=== PATIENT | male | born 1955 | race Caucasian/White ===

== ENCOUNTER 2016-08-13 14:08 | Inpatient (IN) | payer BC ==
[~2016-08-13] VITALS: Ht 175.3 cm; Wt 130.5 kg
[~2016-08-13 14:08] MED LIST: ALLO100T PO; ASCO500S2 PO; ASPI-664 PO; BUME2TAB18 PO; CHOL100062 PO; CLB05O30 TOP; DIGO125T PO; DOCU-144 PO; FERR-55 PO; FLUO20TA27 PO; HYDR-3498 PO; HYDR-3671 PO; INSU100C SC; IPRA3AMP INHALATION; LACTINEX PO; LANT3I SC; LOV60I SC; METO-448 PO; OMEG-135; PREG50CA PO; PROT946L PO; PYRI100T59 PO; SIMV20TA97 PO; VITA400C41 PO; ZOLP5TAB PO
[2016-08-13 14:12] VITALS: Ht 175.3 cm; Wt 130.5 kg
[2016-08-13] MEDS ORDERED: PIPER-TAZO 3.375 GM IV (PMX) 100 ML IVPB STA (14:36)
[2016-08-13] MEDS ORDERED: VANCOMYCIN 1 GM (PMX) 250 ML IVPB STA (14:36)
[2016-08-13 15:12] LABS: BASOPHILS % 0.3 % (0.0-2.0); EOSINOPHILS # 0.3 10^3/ul (0.0-0.5); EOSINOPHILS % 2.4 % (0.0-7.0); HEMATOCRIT 35.8 % (42.0-52.0); HEMOGLOBIN 11.5 g/dl (14.0-18.0); LYMPHOCYTES # 0.7 10^3/ul (0.8-2.9); LYMPHOCYTES % 5.5 % (15.0-51.0); MEAN CORPUSCULAR HEMOGLOBIN 24.9 pg (29.0-33.0); MEAN CORPUSCULAR HGB CONC 32.2 g/dl (32.0-37.0); MEAN CORPUSCULAR VOLUME 77.4 fl (82.0-101.0); MEAN PLATELET VOLUME 8.5 fl (7.4-10.4); MONOCYTE # 0.9 10^3/ul (0.3-0.9); MONOCYTES % 7.1 % (0.0-11.0); NEUTROPHIL # 10.2 10^3/ul (1.6-7.5); NEUTROPHILS % 84.7 % (39.0-77.0); PLATELET COUNT 280 10^3/UL (140-440); RED BLOOD COUNT 4.62 10^6/ul (4.70-6.10); RED CELL DISTRIBUTION WIDTH 22.6 % (11.5-14.5); UNCORRECTED WBC 12.1 10^3/ul (4.8-10.8); WHITE BLOOD COUNT 12.1 10^3/ul (4.8-10.8)
[2016-08-13 15:19] LABS: ALBUMIN 4.1 g/dl (3.3-4.9); INR 1.18; PROTIME 15.1 Sec (12.2-14.2); PT RATIO 1.2
[2016-08-13 15:20] LABS: CHLORIDE 89 mmol/L (97-110); PARTIAL THROMBOPLASTIN TIME 41.3 Sec (25.0-35.0); POTASSIUM 4.8 mmol/L (3.5-5.1); SODIUM 133 mmol/L (135-144)
[2016-08-13 15:22] LABS: ALANINE AMINOTRANSFERASE 30 IU/L (13-69); ALKALINE PHOSPHATASE 222 IU/L (42-121); ANION GAP 18 (8-16); ASPARTATE AMINO TRANSFERASE 34 IU/L (15-46); BILIRUBIN,INDIRECT 0.2 mg/dl (0-1.1); BILIRUBIN,TOTAL 0.2 mg/dl (0.2-1.3); BLOOD UREA NITROGEN 71 mg/dl (7-20); CARBON DIOXIDE 31 mmol/L (21-31); CREATININE 1.66 mg/dl (0.61-1.24); TOTAL PROTEIN 9.2 g/dl (6.1-8.1)
[2016-08-13 15:23] LABS: CONDITION 1; GLUCOSE 148 mg/dl (70-220); LH ANALYZER COMMENTS 1
[2016-08-13] MEDS ORDERED: ATOR10TA65 PO (15:34)
[2016-08-13] MEDS ORDERED: GLUC1KIT IJ (15:35)
[2016-08-13] MEDS ORDERED: FAMO-18 PO (15:35)
[2016-08-13] MEDS ORDERED: HEP30MU30 IJ (15:37)
[2016-08-13] MEDS ORDERED: LANT3I SC (15:38)
[2016-08-13] MEDS ORDERED: POTA-57 PO (15:38)
[2016-08-13] MEDS ORDERED: LORA0.5T PO (15:39)
[2016-08-13 15:40] LABS: TROPONIN-I < 0.012 ng/ml (0.00-0.12)
[2016-08-13] MEDS ORDERED: MAG30ORA PO (15:41)
--- NOTE | 2016-08-13 15:44 | RADRPT ---
PROCEDURE: XR Chest. CLINICAL INDICATION: Sepsis TECHNIQUE: Chest AP portable. COMPARISON: 07/03/2016 FINDINGS: The mediastinal structures are unremarkable. There is moderate cardiac enlargement. There is pulmo nary venous hypertension. There are RLL patchy consolidation / subsegmental atelectasis. There is a small right pleural effusion. There are senescent changes of the axial skeleton. IMPRESSION: Moderate cardiac enlargement. Pulmonary venous hypertension. RLL patchy consolidation / subsegmental atelectasis. Small right pleural effusion. RPTAT: HGDB .Jaya Vázquez MD, MD Date Time Electronically viewed and signed by .Jaya Vázquez MD, MD on 08/13/2016 15:44 .B/
[2016-08-13] MEDS ORDERED: NOVO3I SC (15:45)
[2016-08-13] MEDS ORDERED: MYL80 PO (15:46)
[2016-08-13] MEDS ORDERED: ACET-2047 PO (15:47)
[2016-08-13] MEDS ORDERED: OMEG-135 PO (15:48)
[2016-08-13] MEDS ORDERED: HYDR-906 PO (15:49)
[2016-08-13] MEDS ORDERED: ZOLP10TA5 PO (15:50)
[2016-08-13 16:28] VITALS: TEMP 98.9
[2016-08-13] MEDS ORDERED: ACETAMINOPHEN 325 MG TAB PO PRN ×2 (16:30→17:30)
[2016-08-13] MEDS ORDERED: ONDANSETRON 4 MG INJ IV PRN ×2 (16:30→17:30)
--- NOTE | 2016-08-13 17:02 | HP ---
Date/Time of Note Date/Time of Note DATE: 08/13/16 TIME: 16:46 Assessment/Plan VTE Prophylaxis VTE Prophylaxis Intervention: heparin Assessment/Plan Assessment/Plan 60 yo male with a past medical history of type II DM, previous osteomyelitis, essential hypertension, atrial fibrillation, CHF with diastolic dysfunction, gout, morbid obesity, peripheral vascular disease, depression, CKD and chronic respiratory failure who came in for worsening left greater toe swelling and redness. 1. Left greater toe - cellulitis - with possible osteomyelitis - will admit the patient to med/surg, consult ID, consult podiatry, IV antibiotics, f/u foot xray , monitor for acute changes, fall precautions, wound care c/s. 2. Leukocytosis - 2/2 #1, monitor acute changes 3. Respiratory failure - check ABG, repeat CXR in am - if worsening, consider pulm consult and pulm toilet 4. Acute on Chronic Kidney Disease - avoid nephrotoxins, renally adjust medications - 2/2 to ATN - if worsening, consult nephro 5. CHF diastolic dysfunction - stable continue with lasix, aspirin 6. Type II DM - recent hgba1c is 5.8, carb controlled/renal/cardiac diet, ISS 7. Essential hypertension - c/w BB, hold ACEI/ARB 2/2 to renal dysfunction, hydralazine prn for SBP > 160 8. Atrial Fibrillation - rate controlled - continue with heparin 9. Dyslipidemia - continue with statin 10. Gout - continue with allopurinol 11. Depression - continue SSRI 12. Morbid obesity - needs dietary consult 13. GI ppx - pepcid 14. DVT ppx - heparin answered all of his questions. as per clinical course. this history and physical took greater then 45 minutes to complete HPI/ROS Admit Date/Time Admit Date/Time 08/13/2016, 4:46 pm Hx of Present Illness 60 yo male with a past medical history of type II DM, previous osteomyelitis, essential hypertension, atrial fibrillation, CHF with diastolic dysfunction, gout, morbid obesity, peripheral vascular disease, depression, CKD and chronic respiratory failure who came in for worsening left greater toe swelling and redness. As per the patient, over the last several weeks, the toe has worsened. 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 Currently, he has been complaining of worsening pain, swelling, fevers, no chills, with no active drainage noted. He is denies any chest pain, but has worsening shortness of breath requiring increased nasal cannula O2, no dizziness, nausea/vomiting/diarrhea/constipation , or other constitutional symptoms. ED course: xray pending, received IV antibiotics and supplemental oxygen ROS 14 point review of systems completed, please refer to HPI for any positive findings PMH/Family/Social Past Medical History Medical History: congestive heart failure, coronary artery disease, diabetes, high cholesterol, hypertension, renal disease, other (depression, gout, obesity , atrial fibrillation, chronic respiratory failure) Past Surgical History toe repair for osteomyelitis, rotator cuff repair Past Surgical Hx: other Family History Significant Family History: no pertinent family hx, heart disease (none), cancer (none), diabetes (none) Social History Alcohol Use: none Smoking Status: Former smoker Drug Use: none Exam/Review of Systems Vital Signs Vitals Vital Signs Date Time Temp Pulse Resp B/P Pulse Ox O2 Delivery O2 Flow Rate FiO2 08/13/16 15:10 Nasal Cannula 5 08/13/16 14:12 99.9 95 28 159/82 89 Exam Exam Gen [place]: acute respiratory distress, AAOx4, morbidly obese male HEENT: NC/AT, PERRLA, EOMI, no pharyngeal erythema, no tonsillar exudates, no lymphadenopathy, no JVD, no carotid bruits NECK: supple, no thyromegaly THORAX: symmetrical, no obvious deformities CV: S1S2, RRR, II/ systolic murmur best heard over the apex Lungs: diminished breath sounds to the bases bilaterally, no wheezing Abd: soft, NT/ND, +BS, no rebound, no guarding, neg HSM, protuberant EXT: 3+ pitting edema, skin sloughing noted, left greater toe with surrounding erythema/edema, scattered petechiae upper extremities, easily bruisability Neuro: CN II-XII grossly intact, decreased proprioception bilateral lower extremities Psych: fair mood and affect Skin: see extremities Labs Result Diagram: 08/13/16 1455 08/13/16 1455 Procedures Procedures CXR IMPRESSION: Moderate cardiac enlargement. Pulmonary venous hypertension. RLL patchy consolidation / subsegmental atelectasis. Small right pleural effusion. KELLEN MEDINA MD Aug 13, 2016 16:57
--- NOTE | 2016-08-13 17:13 | ERA ---
ER Documentation Chief Complaint Date/Time DATE: 08/13/16 TIME: 17:09 Chief Complaint SOB, WOUND ON LEG WITH EXTREME PAIN HPI Patient is a 60-year-old male with coronary disease, hypertension, diabetes who presents with a left leg infection. He said that it is a "diabetic ulcer". He says "I have all the signs of an infection". He said that his oxygen demand has gone up as well. This is worsened over the past 1 week. He has subjective fever but no cough. He has pain around the site of his left leg infection. He is not getting antibiotics currently although he said he took one antibiotic pill that he had left over from another infection. ROS All systems reviewed and are negative except as per history of present illness. Medications Home Meds Active Scripts Metoprolol Tartrate* (Lopressor*) 25 Mg Tab, 12.5 MG PO BID for 28 Days, TAB Prov:SHASTA VALENTE MD 10/14/15 Reported Medications Zolpidem Tartrate* (Zolpidem Tartrate*) 10 Mg Tablet, 10 MG PO QHS Y for INSOMNIA, #30 TAB 08/13/16 Hydrocodone/Acetaminophen ([place] 5-325 Tablet) 1 Each Tablet, 2 EACH PO Q6 Y for PAIN LEVEL 6-10, TAB 08/13/16 [place]-3 Fatty Acids/Fish Oil (Fish Oil 1,000 mg Capsule) 1 Each Capsule, 1 EACH PO TID, CAP 08/13/16 Acetaminophen* (Acetaminophen*) 650 Mg Tablet, 650 MG PO Q6H Y for PAIN LEVEL 1- 5, #30 TAB 08/13/16 Simethicone* (Mylicon*) 80 Mg Tab, 80 MG PO Q6H Y for INTESTINAL SPASMS/CRAMPING , TAB 08/13/16 Insulin Aspart* (Novolog Insulin Pen*) 100 Unit/Ml Soln, 0 SC .SLIDING SCALE AC , EA 0-120 =0 UNITS 121-150 =0 UNITS 151-200 =1 UNIT 201-250 =2 UNITS 251-300 =3 UNITS 301-350 =4 UNITS 351-400 =5 UNITS ABOVE 400 GIVE 6 UNITS CALL PMD 08/13/16 Mag Hydrox/Al Hydrox/Simeth (Mag-Al Plus Xs Suspension) 30 Ml Oral.susp, 10 ML PO Q6 Y for DISTENSION/GAS/BLOATING 08/13/16 Lorazepam* (Lorazepam*) 0.5 Mg Tablet, 0.5 MG PO Q6 Y for ANXIETY, TAB 08/13/16 Potassium Chloride* (Klor-Con*) 20 Meq Tabsr, 40 MEQ PO DAILY, TAB.SA 08/13/16 Insulin Glargine* (Lantus*) 100 Unit/Ml Soln, 12 UNIT SC QHS, #1 VIAL 08/13/16 Heparin Sod (Porcine) (Heparin) 1,000 Unit/Ml Soln, 5000 UNIT IJ Q12 08/13/16 Glucagon,Human Recombinant (Glucagon Emergency Kit) 1 Mg Kit, 1 MG IJ PRN, KIT 08/13/16 Famotidine* (Pepcid*) 20 Mg Tablet, 20 MG PO BID, #60 TAB 08/13/16 Atorvastatin Calcium (Atorvastatin Calcium) 10 Mg Tablet, 10 MG PO QHS, #30 TAB 08/13/16 Protein Supplement (Promod) 946 Ml Liquid, 30 ML PO 06/06/16 Ascorbic Acid* (Ascorbic Acid*) 500 Mg/5 Ml Syrup, 500 MG PO DAILY, #150 ML 06/06/16 Lactobacillus Acidophilus* (Lactinex*) 1 Tab Chew, 1 TAB PO TID, TAB 06/06/16 Ipratropium-Albuterol (Ipratropium-Albuterol) 0.5-3 Mg/3 Ml Ampul.neb, 3 ML INHALATION Q4, #30 VIAL 06/06/16 Ipratropium-Albuterol (Ipratropium-Albuterol) 0.5-3 Mg/3 Ml Ampul.neb, 3 ML INHALATION Q2H, #30 VIAL 06/06/16 Vitamin E Mixed* (Vitamin E*) 400 Unit Capsule, 400 UNIT PO DAILY, CAP 09/23/15 Pyridoxine Hcl* (Vitamin B-6*) 100 Mg Tablet, 100 MG PO DAILY, TAB 09/23/15 Cholecalciferol* (Vitamin D3*) 1,000 Unit Tablet, 1000 UNIT PO DAILY, TAB 09/23/15 Pregabalin* (Lyrica*) 50 Mg Capsule, 50 MG PO TID, CAP 09/23/15 Bumetanide* (Bumetanide*) 2 Mg Tablet, 2 MG PO BID, TAB MORNING AND AFTERNOON 09/23/15 Aspirin* (Aspirin* (EC)) 81 Mg Tablet.dr, 81 MG PO DAILY, TAB 09/23/15 Allopurinol* (Allopurinol*) 100 Mg Tablet, 100 MG PO DAILY, TAB 09/23/15 Fish Oil* (Fish Oil*) 1,000 Mg Cap 10/27/12 Fluoxetine Hcl (Fluoxetine Hcl) 20 Mg Tablet, 20 MG PO DAILY 10/27/12 Ferrous Sulfate* (Ferrous Sulfate*) 325 Mg Tablet, 325 MG PO BID 10/27/12 Discontinued Reported Medications Zolpidem Tartrate* (Ambien*) 5 Mg Tablet, 2.5 MG PO QHS Y for INSOMNIA, #30 TAB 06/06/16 Simvastatin* (Zocor*) 20 Mg Tablet, 20 MG PO QHS, #30 TAB 09/23/15 Hydrocodone Bit-Acetaminophen* ([place]*) 5-325 Mg Tab, 1 TAB PO TID Y for PAIN, TAB 09/23/15 Hydralazine Hcl* (Hydralazine Hcl*) 25 Mg Tab, 12.5 MG PO BID Y for BLOATING, # 120 TAB TAKE 1/2 HOUR BEFORE BUMETANIDE FOR BLOATING PRN 09/23/15 Insulin Lispro (Humalog) 100 U/Ml Cartridge, 18 UNITS SC WITH BREAKFAST, EA 09/23/15 Digoxin* (Digoxin*) 0.125 Mg Tab, 0.125 MG PO DAILY, #30 TAB 09/23/15 Clobetasol Priopionate* (Temovate*) 0.05%-30 GM Oint Tube, 1 APPLIC TOP BID Y for ITCHING, #1 TUB 09/23/15 Discontinued Scripts Enoxaparin Sodium (Enoxaparin Sodium) 60 Mg/0.6 Ml Syringe, 50 MG SC DAILY for 30 Days Prov:KRISTEN GOTTLIEB NP 05/18/16 Insulin Glargine* (Lantus*) 100 Unit/Ml Soln, 30 UNIT SC QAM for 28 Days, BOTTLE Prov:SHASTA VALENTE MD 10/14/15 Docusate Sodium* (Colace*) 100 Mg Cap, 100 MG PO Q12H Y for CONSTIPATION for 14 Days, CAP Prov:SHASTA VALENTE MD 10/14/15 Allergies Allergies: Coded Allergies: No Known Allergy (Unverified , 08/13/16) PMhx/Soc History of Surgery: Yes (seem PT notes) Anesthesia Reaction: Yes Hx 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 Disorder: No Hx Respiratory Disorders: Yes (CHRONIC RESP FAILURE, SLEEP APNEA) Hx Cardiac Disorders: Yes (CHF, AFIB) Hx Psychiatric Problems: Yes (DEPRESSION) Hx Miscellaneous Medical Probl: Yes (see PT notes) Hx Alcohol Use: No Hx Substance Use: No Hx Tobacco Use: No Smoking Status: Former smoker FmHx Family History: diabetes Physical Exam Vitals Vital Signs Date Time Temp Pulse Resp B/P Pulse Ox O2 Delivery O2 Flow Rate FiO2 08/13/16 15:10 Nasal Cannula 5 08/13/16 14:28 Nasal Cannula 5.0 08/13/16 14:12 99.9 95 28 159/82 89 Physical Exam Const: Moderate distress secondary to pain Head: Atraumatic Eyes: Normal Conjunctiva ENT: Normal External Ears, Nose and Mouth. Neck: Full range of motion..~ No meningismus. Resp: Clear to auscultation bilaterally Cardio: Regular rate and rhythm, no murmurs Abd: Soft, non tender, non distended. Normal bowel sounds Skin: Left lower extremity infection with desquamation of the skin and surrounding erythema which is warm to touch. Back: No midline or flank tenderness Ext: No cyanosis, or edema Neur: Awake and alert Psych: Normal Mood and Affect Result Diagram: 08/13/16 1455 08/13/16 1455 Results 24 hrs Laboratory Tests Test 08/13/16 14:55 Activated Partial Thromboplast Time 41.3Sec Alanine Aminotransferase (ALT/SGPT) 30IU/L Albumin 4.1g/dl Albumin/Globulin Ratio 0.80 Alkaline Phosphatase 222IU/L Anion Gap 18 Aspartate Amino Transf (AST/SGOT) 34IU/L Basophils # 0.010^3/ul Basophils % 0.3% Blood Morphology Comment Blood Urea Nitrogen 71mg/dl Calcium Level 9.0mg/dl Carbon Dioxide Level 31mmol/L Chloride Level 89mmol/L Creatinine 1.66mg/dl Direct Bilirubin 0.00mg/dl Eosinophils # 0.310^3/ul Eosinophils % 2.4% Globulin 5.10g/dl Glucose Level 148mg/dl Hematocrit 35.8% Hemoglobin 11.5g/dl INR International Normalized Ratio 1.18 Indirect Bilirubin 0.2mg/dl Lactic Acid Level 1.8mmol/L Lymphocytes # 0.710^3/ul Lymphocytes % 5.5% Mean Corpuscular Hemoglobin 24.9pg Mean Corpuscular Hemoglobin Concent 32.2g/dl Mean Corpuscular Volume 77.4fl Mean Platelet Volume 8.5fl Monocytes # 0.910^3/ul Monocytes % 7.1% Neutrophils # 10.210^3/ul Neutrophils % 84.7% Nucleated Red Blood Cells # 0.010^3/ul Nucleated Red Blood Cells % 0.0/100WBC Platelet Count 90467^3/UL Potassium Level 4.8mmol/L Prothrombin Time 15.1Sec Prothrombin Time Ratio 1.2 Red Blood Count 4.6210^6/ul Red Cell Distribution Width 22.6% Sodium Level 133mmol/L Total Bilirubin 0.2mg/dl Total Protein 9.2g/dl Troponin I < 0.012ng/ml White Blood Count 12.110^3/ul Current Medications Medications (Trade) Dose Ordered Sig/Madonna Route PRN Reason Start Time Stop Time Status Last Admin Dose Admin Vancomycin HCl 250 ml @ 125 mls/hr ONCE STAT IVPB 08/13/16 14:36 08/13/16 16:35 DC 08/13/16 14:36 Piperacillin Sod/ Tazobactam Sod (Zosyn 3.375gm/ 100 ml (Pmx)) 100 ml @ 200 mls/hr ONCE STAT IVPB 08/13/16 14:36 08/13/16 15:05 DC 08/13/16 15:14 Ondansetron HCl (Zofran Inj) 4 mg BRIDGE ORDER PRN IV NAUSEA AND/OR VOMITING 08/13/16 16:30 08/14/16 16:29 Acetaminophen (Tylenol Tab) 650 mg ER BRIDGE PRN PO MILD PAIN/FEVER 08/13/16 16:30 08/14/16 16:29 IV Flush (NS 3 ml) 3 ml PER PROTOCOL IV 08/13/16 17:30 UNV Ondansetron HCl (Zofran Inj) 4 mg Q6H PRN IV NAUSEA AND/OR VOMITING 08/13/16 17:30 UNV Acetaminophen (Tylenol Tab) 650 mg Q6H PRN PO PAIN LEVEL 1-3 OR FEVER 08/13/16 17:30 UNV Acetaminophen/ Hydrocodone Bitart ([place] (5/325)) 1 tab Q6H PRN PO MODERATE PAIN LEVEL 4-6 08/13/16 17:30 UNV Morphine Sulfate (morphine) 2 mg Q4H PRN IV SEVERE PAIN LEVEL 7-10 08/13/16 17:30 UNV Docusate Sodium (Colace) 100 mg Q12H PRN PO CONSTIPATION 08/13/16 17:30 UNV Zolpidem Tartrate (Ambien) 5 mg QHS PRN PO SLEEP 08/13/16 17:30 UNV Famotidine (Pepcid) 20 mg Q12 PO 08/13/16 21:00 UNV Heparin Sodium (Porcine) (Heparin (5000 Units/0.5 ml)) 5,000 unit Q12 SC 08/13/16 21:00 UNV Insulin Aspart (Novolog Insulin Pen) NOVOLOG *MILD* ALGORITHM WITH MEALS BEDTIME SC 08/13/16 18:00 UNV Miscellaneous Information (* Miscellaneous Pharmacy Order) HYPOGLYCEMIA PROTOCOL w... ONCE ONCE XX 08/13/16 17:30 08/13/16 17:31 UNV Miscellaneous Information (* Miscellaneous Pharmacy Order) Discontinue Glyburide, Glipizide,... ONCE ONCE XX 08/13/16 17:30 08/13/16 17:31 UNV Miscellaneous Information (* Miscellaneous Pharmacy Order) Discontinue all previ... ONCE ONCE XX 08/13/16 17:30 08/13/16 17:31 UNV Albuterol/ Ipratropium (Duoneb) 3 ml Q2H RESP THERAPY PRN HHN SHORTNESS OF BREATH 08/13/16 17:30 UNV Allopurinol (Zyloprim) 100 mg DAILY PO 08/14/16 09:00 UNV Procedures/MDM EKG read by me: Rate/Rhythm: Regular rate and rhythm at a normal rate Intervals: Normal Impression: No evidence of ischemia or arrhythmia Chest x-ray shows no pneumonia per radiology. Patient is a 60-year-old male who presents with a left leg diabetic foot infection. The patient was given vancomycin and Zosyn empirically. The patient will need admission as this is a significant diabetic foot infection. He will likely need podiatry consultation as well. The patient was given broad- spectrum antibiotics and will be admitted to a medical surgical bed. The patient was given pain meds as well. I spoke with Dr. Tipton from the panel team for admission who was admitted to medical surgical bed. At this point I doubt sepsis. I did not give fluids as the patient has significant CHF and says that he gets fluid overloaded very easily. He has hypoxia but at this time I doubt pulmonary embolism or pneumonia. Departure Diagnosis: Primary Impression: Diabetic foot infection Additional Impression: Hypoxia Condition: DEON Holliday MD Aug 13, 2016 17:13
[2016-08-13] MEDS ORDERED: VANCOMYCIN IV PER PHARMACY XX SCH (17:30)
[2016-08-13] MEDS ORDERED: NACL 0.9% 3 ML SYG IV SCH (17:30)
[2016-08-13] MEDS ORDERED: DOCUSATE SODIUM 100 MG CAP PO PRN (17:30)
[2016-08-13] MEDS ORDERED: LORAZEPAM 0.5 MG TAB PO PRN (17:30)
[2016-08-13] MEDS ORDERED: ZOLPIDEM 5 MG TAB PO PRN ×2 (17:30)
--- NOTE | 2016-08-13 17:36 | RADRPT ---
PROCEDURE: XR Foot. CLINICAL INDICATION: Generalized foot pain TECHNIQUE: Three views of the left foot are available for review. COMPARISON: None available FINDINGS: There is widening between the second metatarsal base and medial cuneiform, nonspecific due to lack o f weightbearing but may represent the Lisfranc ligament injury or sequelae of neuropathic arthropath y, depending on the clinical scenario. The remaining osseous structures are intact. No fractures s een. There is presumed amputation at the second mid distal phalanx. There is marked soft tissue swe lling seen surrounding the first digit atherosclerotic vascular calcifications are present. Entheso pathic changes seen at the Achilles insertion and plantar calcaneal margin. IMPRESSION: 1. Marked soft tissue swelling over the first ray without cortical destruction or soft tissue gas t o suggest radiographic evidence of osteomyelitis. Please note that MRI is more sensitive. 2. Degenerative changes of the midfoot and widening between the second metatarsal base and medial c uneiform, likely sequelae of neuropathic arthropathy or Lisfranc ligament injury, depending on the c linical scenario. 3. 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 RPTAT: UU .Rahul Jain MD, Date Time Electronically viewed and signed by .Rahul Jain MD, on 08/13/2016 17:36 .d/
[2016-08-13] MEDS: morphine 2 MG INJ IV PRN (17:58)
[2016-08-13 17:59] VITALS: BP 155/77; PULSE 109; RESP 18
[2016-08-13] MEDS: INSULIN ASPART [NOVOLOG] 3 ML PEN SC SCH ×2 (18:00→20:48)
[2016-08-13] MEDS ORDERED: DEXTROSE 50% 50 ML SYRINGE IV PRN (18:00)
[2016-08-13] MEDS ORDERED: GLUCAGON 1 MG INJ IM PRN (18:00)
[2016-08-13] MEDS ORDERED: GLUCOSE GEL 15 GRAM TUBE BUCCAL PRN (18:00)
[2016-08-13] MEDS ORDERED: GLUCOSE GEL 15 GRAM TUBE PO PRN ×2 (18:00)
--- NOTE | 2016-08-13 18:03 | CONS ---
Date/Time of Note Date/Time of Note DATE: 08/13/16 TIME: 18:03 Assessment/Plan Assessment/Plan Additional Assessment/Plan 60 yo Male with 1) LORNA on CKD, Pre-Renal in the setting of diuretic Rx 2) Left toe cellulits R/o OM 3) HTN, Chronic 4) Diastolic Heart Failure, Chronic 5) Pulm HTN 6) Anema, Chroinc 7) RLL Patchy Consolidation R/o PNA Pt started on Borad Spectrum IV abx ID consulted Renal Dose all Rx Will send UA, Urine Na and Cr Decrease dose of Diuretic Rx, Repeat chemistry in am Cont to monitor UO, Renal function and electrolytes. Consultation Date/Type/Reason Admit Date/Time 08/13/2016, 4:46 pm Date of Consultation: Aug 13, 2016 Type of Consultation: Nephrology Reason for Consultation Lorna Referring Provider: KELLEN MEDINA MD Hx of Present Illness 60 yo male with a past medical history of type II DM, previous osteomyelitis, essential hypertension, atrial fibrillation, CHF with diastolic dysfunction, gout, morbid obesity, peripheral vascular disease, depression, CKD and chronic respiratory failure who came in for worsening left greater toe swelling and redness. Nephrology consulted for elevated BUN/Cr Past Medical History Medical History: congestive heart failure, coronary artery disease, diabetes, high cholesterol, hypertension, renal disease, other (depression, gout, obesity , atrial fibrillation, chronic respiratory failure) Past Surgical History Past Surgical Hx: other Family History Significant Family History: no pertinent family hx Social History Alcohol Use: none Smoking Status: Former smoker Drug Use: none Exam/Review of Systems Vital Signs Vitals Vital Signs Date Time Temp Pulse Resp B/P Pulse Ox O2 Delivery O2 Flow Rate FiO2 08/13/16 17:59 97.8 109 18 155/77 95 Nasal Cannula 6.0 Exam Constitutional: alert, oriented, No distress ENMT: mucosa pink and moist (cc) Neck: No jvd Respiratory: crackles/rales, diminished breath sounds (RT), No labored breathing Cardiovascular: edema, regular rate and rhythm Gastrointestinal: soft, No rebound or guarding, No tender Extremities: pitting pedal edema, tenderness 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: SOA ARCHITECT 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, nl mental status, nl speech, No focal weakness, No lethargic Skin: No diaphoresis (c) Results Result Diagram: 08/13/16 1455 08/13/16 1455 Results 24 hrs Laboratory Tests Test 08/13/16 14:55 08/13/16 17:48 Activated Partial Thromboplast Time 41.3 H Alanine Aminotransferase (ALT/SGPT) 30 Albumin 4.1 Albumin/Globulin Ratio 0.80 Alkaline Phosphatase 222 H Anion Gap 18 H Aspartate Amino Transf (AST/SGOT) 34 Basophils # 0.0 Basophils % 0.3 Blood Morphology Comment Blood Urea Nitrogen 71 H Calcium Level 9.0 Carbon Dioxide Level 31 Chloride Level 89 L Creatinine 1.66 H Direct Bilirubin 0.00 Eosinophils # 0.3 Eosinophils % 2.4 Globulin 5.10 H Glucose Level 148 Hematocrit 35.8 L Hemoglobin 11.5 L INR International Normalized Ratio 1.18 Indirect Bilirubin 0.2 Lactic Acid Level 1.8 Lymphocytes # 0.7 L Lymphocytes % 5.5 L Magnesium Level 2.5 Mean Corpuscular Hemoglobin 24.9 L Mean Corpuscular Hemoglobin Concent 32.2 Mean Corpuscular Volume 77.4 L Mean Platelet Volume 8.5 Monocytes # 0.9 Monocytes % 7.1 Neutrophils # 10.2 H Neutrophils % 84.7 H Nucleated Red Blood Cells # 0.0 Nucleated Red Blood Cells % 0.0 Platelet Count 280 Potassium Level 4.8 Prothrombin Time 15.1 H Prothrombin Time Ratio 1.2 Red Blood Count 4.62 L Red Cell Distribution Width 22.6 H Sodium Level 133 L Total Bilirubin 0.2 Total Protein 9.2 H Troponin I < 0.012 White Blood Count 12.1 #H Bedside Glucose 127 Medications Medications Current Medications Ondansetron HCl (Zofran Inj) 4 mg Q6H PRN IV NAUSEA AND/OR VOMITING; Start at 17:30 Acetaminophen (Tylenol Tab) 650 mg Q6H PRN PO PAIN LEVEL 1-3 OR FEVER; Start 08/13/16 at 17:30 Acetaminophen/ Hydrocodone Bitart ([place] (5/325)) 1 tab Q6H PRN PO MODERATE PAIN LEVEL 4-6; Start 08/13/16 at 17:30 Morphine Sulfate (morphine) 2 mg Q4H PRN IV SEVERE PAIN LEVEL 7-10 Last administered on 08/13/16at 17:58; Admin Dose 2 MG; Start 08/13/16 at 17:30 Docusate Sodium (Colace) 100 mg Q12H PRN PO CONSTIPATION; Start 11/28/16 at 17 :30 Famotidine (Pepcid) 20 mg Q12 PO ; Start 08/13/16 at 21:00 Heparin Sodium (Porcine) (Heparin (5000 Units/0.5 ml)) 5,000 unit Q12 SC ; Start 08/13/16 at 21:00 Allopurinol (Zyloprim) 100 mg DAILY PO ; Start 08/14/16 at 09:00 Ascorbic Acid (Vitamin C) 500 mg DAILY PO ; Start 08/13/16 at 18:00 Aspirin (Halfprin) 81 mg DAILY PO ; Start 08/14/16 at 09:00 Atorvastatin Calcium (Lipitor) 10 mg QHS PO ; Start 08/13/16 at 21:00 Cholecalciferol (Vitamin D) 1,000 unit DAILY PO ; Start 08/14/16 at 09:00 Ferrous Sulfate (Ferrous Sulfate (Ec)) 325 mg BID PO ; Start 08/13/16 at 21:00 Fish Oil (Fish Oil) 1,000 mg DAILY PO ; Start 08/14/16 at 09:00 Insulin Glargine (Lantus) 12 unit QHS SC ; Start 08/13/16 at 21:00 Lactobacillus Acidoph/Bulgaricus (Floranex) 1 tab TID PO ; Start 08/13/16 at 21 :00 Lorazepam (Ativan) 0.5 mg Q6 PRN PO ANXIETY; Start 08/13/16 at 17:30 Metoprolol Tartrate (Lopressor) 12.5 mg BID PO ; Start 08/13/16 at 21:00 Potassium Chloride (Klor-Con 20) 40 meq DAILY PO ; Start 08/14/16 at 09:00 Pregabalin (Lyrica) 50 mg TID PO ; Start 08/13/16 at 21:00 Pyridoxine HCl (Vitamin B6) 100 mg DAILY PO ; Start 08/14/16 at 09:00 Simethicone (Mylicon) 80 mg Q6H PRN PO INTESTINAL SPASMS/CRAMPING; Start 08/13 at 17:30 Vitamin E (Vitamin E) 400 units DAILY PO ; Start 08/14/16 at 09:00 Miscellaneous Information 2 mg BID PO ; Start 08/13/16 at 21:00; Status UNV Miscellaneous Information 20 mg DAILY PO ; Start 08/14/16 at 09:00; Status UNV Miscellaneous Information 1 each 1 each TID PO ; Start 08/13/16 at 21:00; Status UNV Piperacillin Sod/ Tazobactam Sod (Zosyn 2.25gm/ 50ml (Pmx)) 50 ml @ 100 mls/hr Q8 IVPB ; Start 08/13/16 at 22:00 Miscellaneous Information 1 ea NOTE XX ; Start 08/13/16 at 18:00 Glucose (Glutose) 15 gm Q15M PRN PO DECREASED GLUCOSE; Start 08/13/16 at 18:00 Glucose (Glutose) 22.5 gm Q15M PRN PO DECREASED GLUCOSE; Start 08/13/16 at 18: 00 Dextrose (D50w Syringe) 25 ml Q15M PRN IV DECREASED GLUCOSE; Start 08/13/16 at 18:00 Dextrose (D50w Syringe) 50 ml Q15M PRN IV DECREASED GLUCOSE; Start 08/13/16 at 18:00 Glucagon (Glucagen) 1 mg Q15M PRN IM DECREASED GLUCOSE; Start 08/13/16 at 18: 00 Glucose (Glutose) 15 gm Q15M PRN BUCCAL DECREASED GLUCOSE; Start 08/13/16 at 18:00 Procedures Procedures PROCEDURE: XR Chest. CLINICAL INDICATION: Sepsis TECHNIQUE: Chest AP portable. COMPARISON: 07/03/2016 FINDINGS: The mediastinal structures are unremarkable. There is moderate cardiac enlargement. There is pulmonary venous hypertension. There are RLL patchy consolidation / subsegmental atelectasis. There is a small right pleural effusion. There are senescent changes of the axial skeleton. IMPRESSION: Moderate cardiac enlargement. Pulmonary venous hypertension. RLL patchy consolidation / subsegmental atelectasis. Small right pleural effusion. RPTAT: HGDB .Jaya Vázquez MD, MD Date Time Electronically viewed and signed by .Jaya Vázquez MD, MD on 08/13/2016 15:44 DYAN FRANKLIN MD Aug 13, 2016 18:03
[2016-08-13] MEDS ORDERED: VANCOMYCIN 1 GM in NS 250 ML IVPB SCH (18:30)
[2016-08-13] MEDS: ASCORBIC ACID 500 MG TAB PO SCH (19:05)
[2016-08-13] MEDS ORDERED: BUMETANIDE 1 MG TAB PO SCH (19:30)
[2016-08-13 19:35] LABS: INR 1.26; PROTIME 15.9 Sec (12.2-14.2); PT RATIO 1.2
[2016-08-13 19:36] LABS: PARTIAL THROMBOPLASTIN TIME 41.9 Sec (25.0-35.0)
[2016-08-13 20:00] VITALS: BP 140/77; PULSE 84; RESP 16
[2016-08-13] MEDS: SODIUM HYPOCHLORITE 0.125% 473 ML BTL IRR SCH (20:00)
[2016-08-13] MEDS: METOPROLOL 25 MG TAB PO SCH (20:42)
[2016-08-13] MEDS: LACTOBACILLUS CHEW TAB PO SCH (20:43)
[2016-08-13] MEDS: FAMOTIDINE 20 MG TAB PO SCH (20:43)
[2016-08-13] MEDS: FISH OIL 1,000 MG CAP PO SCH (20:43)
[2016-08-13] MEDS: ATORVASTATIN 10 MG TAB PO SCH (20:43)
[2016-08-13] MEDS: FERROUS SULFATE (EC) 325 MG TAB PO SCH (20:44)
[2016-08-13] MEDS: INSULIN GLARGINE [LANtus] 3 ML PEN SC SCH (20:47)
--- NOTE | 2016-08-13 20:51 | CONS ---
DATE OF ADMISSION: 08/13/2016 DATE OF CONSULTATION: 08/13/2016 TYPE OF CONSULTATION: Infectious disease. REASON FOR CONSULTATION: Antibiotic management. HISTORY OF PRESENT ILLNESS: Jamin Fabian is an unfortunate 60-year-old white male with numerous pro blems, well known to us from previous admissions, who is admitted now with shortness of breath and w ith left lower extremity severe cellulitis. Total protein 9.2, albumin 4.1. Cultures are, of course, going to be pending. The patient was begu n on vancomycin and Zosyn. A 3 x-ray of the left foot was ordered. Blood cultures have been ordere d. Lactic acid, urine cultures have been ordered. Clostridium difficile has been ordered. This pa tient has been hospitalized on numerous occasions. He has been seen also by myself in the past. patient's past medical problems include: 1. Adult-onset diabetes mellitus. 2. Previous osteomyelitis. 3. Essential hypertension. 4. Atrial fibrillation. 5. Congestive heart failure with diastolic dysfunction. 6. Gout. 7. Morbid obesity. 8. Peripheral vascular disease. 9. Depression. 10. Chronic renal disease. 11. Chronic respiratory failure. The patient came in with worsening of his left great toe with swelling and redness as well as exfoli ation of the skin on his left foot. He was at the [facility] and has been followed up on a regular basis. He has been having worsening pain, fever, chills, and now comes in with worsening shortness of breath requiring increased nasal cannula oxygen as well. He has left great toe cellulitis with p ossible osteomyelitis. On admission, his white count is 12.1, H and H 11.5 and 35.8, platelet count 280,000. BUN and creatinine is 71/1.66, alkaline phosphatase 222. Microbiology is pending. He is on vancomycin and Zosyn. Chest x-ray shows moderate cardiac enlargement, pulmonary venous hyperten eileen of the right lower lobe patchy consolidation and subsegmental atelectasis, small right pleural effusion. PAST MEDICAL HISTORY: Operations as outlined. FAMILY HISTORY: Noncontributory. PAST SURGICAL HISTORY: He had toe repair for osteomyelitis. He also had rotator cuff repair. SOCIAL HISTORY: He is a former smoker. He does not drink or abuse drugs. ALLERGIES: NONE TO PENICILLIN, SULFA, OR FOODS. MEDICATIONS: Per chart. REVIEW OF SYSTEMS: As per HPI. PHYSICAL EXAMINATION: GENERAL: The patient is a morbidly obese male who is in some degree of respiratory distress, but ab le to communicate. VITAL SIGNS: Stable. He is afebrile. T-max of 99.9. SKIN: Without generalized rash. HEENT: Within normal limits. NECK: Supple. LYMPH NODES: None palpable. CHEST: Decreased breath sounds at the bases. HEART: Without murmur or gallop. ABDOMEN: Soft, nontender without organosplenomegaly or masses. EXTREMITIES: He has 3+ pitting edema, both lower extremities. Skin is exfoliating and sloughing on the left. The left great toe has erythema and edema. The right lower extremity is bandaged right now from the knee down to the ankle. RECTAL AND GENITAL: Deferred. NEUROLOGIC: No focal neurological abnormality. IMPRESSION AND PLAN: The patient comes in with cellulitis, possible osteomyelitis of the left toe a nd foot. He was started on vancomycin and Zosyn. Urine cultures have been done. Blood cultures saunders ve been done. I believe blood cultures have been ordered. I will dictate my findings to Dr. Sachin barnes and to the hospitalist. Dictated By: DONAVAN BRITTON MD, JD/GREGORY Conf#: [id number] DID#: [id number] CC: KELLEN MEDINA MD;*End*
[2016-08-13] MEDS: HEPARIN 5,000 UNIT/0.5 ML SYG SC SCH (21:33)
[2016-08-13] MEDS: PREGABALIN 25 MG CAP PO SCH (21:33)
[2016-08-13] MEDS: PIPER-TAZO 2.25 GM (PMX) 50 ML IVPB SCH (21:42)
[2016-08-13 23:10] VITALS: PULSE 84
[2016-08-13] MEDS: ZOLPIDEM 5 MG TAB PO PRN (23:17)
[2016-08-14 06:22] LABS: POTASSIUM 4.7 mmol/L (3.5-5.1)
[2016-08-14 06:24] LABS: CREATININE 1.65 mg/dl (0.61-1.24)
[2016-08-14 06:25] LABS: CALCIUM 8.4 mg/dl (8.4-10.2)
[2016-08-14 06:31] LABS: BASOPHILS % 0.3 % (0.0-2.0); EOSINOPHILS # 0.4 10^3/ul (0.0-0.5); EOSINOPHILS % 3.5 % (0.0-7.0); HEMATOCRIT 29.4 % (42.0-52.0); HEMOGLOBIN 9.7 g/dl (14.0-18.0); LYMPHOCYTES # 0.5 10^3/ul (0.8-2.9); LYMPHOCYTES % 5.1 % (15.0-51.0); MEAN CORPUSCULAR HEMOGLOBIN 25.2 pg (29.0-33.0); MEAN CORPUSCULAR HGB CONC 32.8 g/dl (32.0-37.0); MEAN CORPUSCULAR VOLUME 76.8 fl (82.0-101.0); MEAN PLATELET VOLUME 8.3 fl (7.4-10.4); MONOCYTE # 1.3 10^3/ul (0.3-0.9); NEUTROPHIL # 8.5 10^3/ul (1.6-7.5); NEUTROPHILS % 79.1 % (39.0-77.0); PLATELET COUNT 268 10^3/UL (140-440); RED BLOOD COUNT 3.83 10^6/ul (4.70-6.10); RED CELL DISTRIBUTION WIDTH 21.8 % (11.5-14.5); UNCORRECTED WBC 10.7 10^3/ul (4.8-10.8); WHITE BLOOD COUNT 10.7 10^3/ul (4.8-10.8)
[2016-08-14] MEDS: BUMETANIDE 1 MG TAB PO SCH ×2 (06:33→18:00)
[2016-08-14] MEDS: PIPER-TAZO 2.25 GM (PMX) 50 ML IVPB SCH ×3 (06:33→22:40)
[2016-08-14 07:00] LABS: CONDITION 1; LH ANALYZER COMMENTS 1
[2016-08-14 07:15] VITALS: BP 141/73; PULSE 80; RESP 22
[2016-08-14] MEDS: INSULIN ASPART [NOVOLOG] 3 ML PEN SC SCH ×4 (08:08→20:45)
[2016-08-14] MEDS ORDERED: VITAMIN A & D 5 GM OINT PACKET TOP ONE (08:52)
[2016-08-14] MEDS ORDERED: POTASSIUM CHLORIDE (SR) 20 MEQ TAB PO SCH (09:00)
[2016-08-14] MEDS: SODIUM HYPOCHLORITE 0.125% 473 ML BTL IRR SCH (09:00)
[2016-08-14] MEDS: FLUOXETINE 20 MG CAP PO SCH (09:25)
[2016-08-14] MEDS: CHOLECALCIFEROL 1,000 UNIT TAB PO SCH (09:25)
[2016-08-14] MEDS: FAMOTIDINE 20 MG TAB PO SCH ×2 (09:25→20:35)
[2016-08-14] MEDS: PYRIDOXINE 50 MG TAB PO SCH (09:25)
[2016-08-14] MEDS: PREGABALIN 25 MG CAP PO SCH ×3 (09:25→20:35)
[2016-08-14] MEDS: ASCORBIC ACID 500 MG TAB PO SCH (09:25)
[2016-08-14] MEDS: LACTOBACILLUS CHEW TAB PO SCH ×3 (09:25→20:34)
[2016-08-14] MEDS: ASPIRIN (EC) 81 MG TAB PO SCH (09:25)
[2016-08-14] MEDS: VITAMIN E 400 UNITS CAP PO SCH (09:25)
[2016-08-14] MEDS: FERROUS SULFATE (EC) 325 MG TAB PO SCH ×2 (09:25→20:35)
[2016-08-14] MEDS: FISH OIL 1,000 MG CAP PO SCH ×4 (09:26→20:35)
[2016-08-14] MEDS: ALLOPURINOL 100 MG TAB PO SCH (09:26)
[2016-08-14] MEDS: METOPROLOL 25 MG TAB PO SCH ×2 (09:27→20:45)
[2016-08-14] MEDS: HEPARIN 5,000 UNIT/0.5 ML SYG SC SCH ×2 (09:29→20:43)
--- NOTE | 2016-08-14 09:37 | PN ---
Date/Time of Note Date/Time of Note DATE: 08/14/16 TIME: 09:30 Assessment/Plan VTE Prophylaxis VTE Prophylaxis Intervention: heparin Lines/Catheters IV [facility] Urinary Cath still in place: No Assessment/Plan Assessment/Plan 60 yo male with a past medical history of type II DM, previous osteomyelitis, essential hypertension, atrial fibrillation, CHF with diastolic dysfunction, gout, morbid obesity, peripheral vascular disease, depression, CKD and chronic respiratory failure who came in for worsening left greater toe swelling and redness. 1. Left greater toe - osteomyelitis/cellulitis - PICC line for mcc antibiotics, f/u podiatry recs 2. Leukocytosis - 2/2 #1, monitor acute changes - improved 3. Respiratory failure - continue with supplemental O2 4. Acute on Chronic Kidney Disease - avoid nephrotoxins, renally adjust medications - 2/2 to ATN - appreciate nephro recs 5. CHF diastolic dysfunction - stable continue with lasix, aspirin 6. Type II DM - recent hgba1c is 5.8, carb controlled/renal/cardiac diet, ISS 7. Essential hypertension - c/w BB, hold ACEI/ARB 2/2 to renal dysfunction, hydralazine prn for SBP > 160 8. Atrial Fibrillation - rate controlled - continue with heparin 9. Dyslipidemia - continue with statin 10. Gout - continue with allopurinol 11. Depression - continue SSRI 12. Morbid obesity - needs dietary consult 13. Anemia - acute on chronic - check iron profile, occult blood - transfuse if hgb < 8 g/dL 14. GI ppx - pepcid 15. DVT ppx - heparin dispo - f/u recs, PICC line insertion, monitor acute changes this progress note took greater than 40 minutes to complete Subjective 24 Hr Interval Summary Free Text/Dictation Patient was admitted for left greater toe infection. Complains of pain. Explained the radiographic findings to the patient. 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 20 minutes spent. Exam/Review of Systems Vital Signs Vitals Vital Signs Date Time Temp Pulse Resp B/P Pulse Ox O2 Delivery O2 Flow Rate FiO2 08/14/16 05:30 40 08/13/16 23:10 84 99 08/13/16 23:10 5.0 08/13/16 20:00 Nasal Cannula 08/13/16 20:00 97.8 16 140/77 Intake and Output 08/13/16 08/13/16 08/14/16 15:00 23:00 07:00 Intake Total 50 ml 850 ml Output Total 700 ml Balance 50 ml 150 ml Exam Gen Glen: acute respiratory distress, AAOx4, morbidly obese male HEENT: NC/AT, PERRLA, EOMI, no pharyngeal erythema, no tonsillar exudates, no lymphadenopathy, no JVD, no carotid bruits NECK: supple, no thyromegaly THORAX: symmetrical, no obvious deformities CV: S1S2, RRR, II/ systolic murmur best heard over the apex Lungs: diminished breath sounds to the bases bilaterally, no wheezing Abd: soft, NT/ND, +BS, no rebound, no guarding, neg HSM, protuberant EXT: 3+ pitting edema, skin sloughing noted, left greater toe with surrounding erythema/edema, scattered petechiae upper extremities, easily bruisability, with adolfo wraps bilaterally Neuro: CN II-XII grossly intact, decreased proprioception bilateral lower extremities Psych: fair mood and affect Skin: see extremities Results Result Diagram: 08/14/16 0545 08/14/16 0545 Results 24 hrs Laboratory Tests Test 08/13/16 14:55 08/13/16 17:48 08/13/16 18:40 08/13/16 20:31 Activated Partial Thromboplast Time 41.3 H 41.9 H Alanine Aminotransferase (ALT/SGPT) 30 Albumin 4.1 Albumin/Globulin Ratio 0.80 Alkaline Phosphatase 222 H Anion Gap 18 H Aspartate Amino Transf (AST/SGOT) 34 Basophils # 0.0 Basophils % 0.3 Blood Morphology Comment Blood Urea Nitrogen 71 H Calcium Level 9.0 Carbon Dioxide Level 31 Chloride Level 89 L Creatinine 1.66 H Direct Bilirubin 0.00 Eosinophils # 0.3 Eosinophils % 2.4 Globulin 5.10 H Glucose Level 148 Hematocrit 35.8 L Hemoglobin 11.5 L INR International Normalized Ratio 1.18 1.26 Indirect Bilirubin 0.2 Lactic Acid Level 1.8 1.1 Lymphocytes # 0.7 L Lymphocytes % 5.5 L Magnesium Level 2.5 Mean Corpuscular Hemoglobin 24.9 L Mean Corpuscular Hemoglobin Concent 32.2 Mean Corpuscular Volume 77.4 L Mean Platelet Volume 8.5 Monocytes # 0.9 Monocytes % 7.1 Neutrophils # 10.2 H Neutrophils % 84.7 H Nucleated Red Blood Cells # 0.0 Nucleated Red Blood Cells % 0.0 Platelet Count 280 Potassium Level 4.8 Prothrombin Time 15.1 H 15.9 H Prothrombin Time Ratio 1.2 1.2 Red Blood Count 4.62 L Red Cell Distribution Width 22.6 H Sodium Level 133 L Total Bilirubin 0.2 Total Protein 9.2 H Troponin I < 0.012 White Blood Count 12.1 #H Bedside Glucose 127 259 H Test 08/13/16 20:50 08/14/16 03:26 08/14/16 05:45 08/14/16 07:58 Lactic Acid Level 1.4 Bedside Glucose 103 100 Anion Gap 13 Basophils # 0.0 Basophils % 0.3 Blood Morphology Comment Blood Urea Nitrogen 67 H Calcium Level 8.4 Carbon Dioxide Level 32 H Chloride Level 91 L Creatinine 1.65 H Eosinophils # 0.4 Eosinophils % 3.5 Glucose Level 93 # Hematocrit 29.4 L Hemoglobin 9.7 L Lymphocytes # 0.5 L Lymphocytes % 5.1 L Mean Corpuscular Hemoglobin 25.2 L Mean Corpuscular Hemoglobin Concent 32.8 Mean Corpuscular Volume 76.8 L Mean Platelet Volume 8.3 Monocytes # 1.3 H Monocytes % 12.0 H Neutrophils # 8.5 H Neutrophils % 79.1 H Nucleated Red Blood Cells # 0.0 Nucleated Red Blood Cells % 0.0 Platelet Count 268 Potassium Level 4.7 Red Blood Count 3.83 L Red Cell Distribution Width 21.8 H Sodium Level 131 L White Blood Count 10.7 Medications Medications Current Medications Ondansetron HCl (Zofran Inj) 4 mg Q6H PRN IV NAUSEA AND/OR VOMITING; Start at 17:30 Acetaminophen (Tylenol Tab) 650 mg Q6H PRN PO PAIN LEVEL 1-3 OR FEVER; Start 08/13/16 at 17:30 Acetaminophen/ Hydrocodone Bitart ([place] (5/325)) 1 tab Q6H PRN PO MODERATE PAIN LEVEL 4-6; Start 08/13/16 at 17:30 Morphine Sulfate (morphine) 2 mg Q4H PRN IV SEVERE PAIN LEVEL 7-10 Last administered on 08/13/16at 17:58; Admin Dose 2 MG; Start 08/13/16 at 17:30 Docusate Sodium (Colace) 100 mg Q12H PRN PO CONSTIPATION; Start 08/13/16 at 17 :30 Famotidine (Pepcid) 20 mg Q12 PO Last administered on 08/13/16at 20:43; Admin Dose 20 MG; Start 08/13/16 at 21:00 Heparin Sodium (Porcine) (Heparin (5000 Units/0.5 ml)) 5,000 unit Q12 SC Last administered on 08/13/16at 21:33; Admin Dose 5,000 UNIT; Start 08/13/16 at 21: 00 Allopurinol (Zyloprim) 100 mg DAILY PO ; Start 08/14/16 at 09:00 Ascorbic Acid (Vitamin C) 500 mg DAILY PO Last administered on 08/13/16at 19:05 ; Admin Dose 500 MG; Start 08/13/16 at 18:00 Aspirin (Halfprin) 81 mg DAILY PO ; Start 08/14/16 at 09:00 Atorvastatin Calcium (Lipitor) 10 mg QHS PO Last administered on 08/13/16 20: 43; Admin Dose 10 MG; Start 08/13/16 at 21:00 Cholecalciferol (Vitamin D) 1,000 unit DAILY PO Last administered on 09:25; Admin Dose 1,000 UNIT; Start 08/14/16 at 09:00 Ferrous Sulfate (Ferrous Sulfate (Ec)) 325 mg BID PO Last administered on 08/14at 09:25; Admin Dose 325 MG; Start 08/13/16 at 21:00 Fish Oil (Fish Oil) 1,000 mg DAILY PO ; Start 08/14/16 at 09:00 Insulin Glargine (Lantus) 12 unit QHS SC Last administered on 08/13/16at 20:47 ; Admin Dose 12 UNIT; Start 08/13/16 at 21:00 Lactobacillus Acidoph/Bulgaricus (Floranex) 1 tab TID PO Last administered on 08/13/16at 20:43; Admin Dose 1 TAB; Start 08/13/16 at 21:00 Lorazepam (Ativan) 0.5 mg Q6 PRN PO ANXIETY; Start 08/13/16 at 17:30 Metoprolol Tartrate (Lopressor) 12.5 mg BID PO Last administered on 08/13/16at 20:42; Admin Dose 12.5 MG; Start 08/13/16 at 21:00 Pregabalin (Lyrica) 50 mg TID PO Last administered on 08/13/16at 21:33; Admin Dose 50 MG; Start 08/13/16 at 21:00 Pyridoxine HCl (Vitamin B6) 100 mg DAILY PO ; Start 08/14/16 at 09:00 Simethicone (Mylicon) 80 mg Q6H PRN PO INTESTINAL SPASMS/CRAMPING; Start 08/13 at 17:30 Vitamin E (Vitamin E) 400 units DAILY PO Last administered on 08/14/16at 09:25 ; Admin Dose 400 UNITS; Start 08/14/16 at 09:00 Fluoxetine HCl (Prozac) 20 mg DAILY PO ; Start 08/14/16 at 09:00 Fish Oil 1000 mg 1,000 mg TID PO Last administered on 08/13/16at 20:43; Admin Dose 1,000 MG; Start 08/13/16 at 21:00 Piperacillin Sod/ Tazobactam Sod (Zosyn 2.25gm/ 50ml (Pmx)) 50 ml @ 100 mls/hr Q8 IVPB Last administered on 08/14/16at 06:33; Admin Dose 100 MLS/HR; Start at 22:00 Miscellaneous Information 1 ea NOTE XX ; Start 08/13/16 at 18:00 Glucose (Glutose) 15 gm Q15M PRN PO DECREASED GLUCOSE; Start 08/13/16 at 18:00 Glucose (Glutose) 22.5 gm Q15M PRN PO DECREASED GLUCOSE; Start 08/13/16 at 18: 00 Dextrose (D50w Syringe) 25 ml Q15M PRN IV DECREASED GLUCOSE; Start 08/13/16 at 18:00 Dextrose (D50w Syringe) 50 ml Q15M PRN IV DECREASED GLUCOSE; Start 08/13/16 at 18:00 Glucagon (Glucagen) 1 mg Q15M PRN IM DECREASED GLUCOSE; Start 08/13/16 at 18: 00 Glucose 15 gm 15 gm Q15M PRN BUCCAL DECREASED GLUCOSE; Start 08/13/16 at 18:00 Vancomycin HCl/ Sodium Chloride (Vancocin/NS) 500 ml @ 125 mls/hr Q48H IVPB ; Start 08/15/16 at 16:00 Sodium Hypochlorite (Dakin'S (1/4 Strength)) 1 applic DAILY IRR Last administered on 08/13/16at 20:00; Admin Dose 1 APPLIC; Start 08/13/16 at 20:00 KELLEN MEDINA MD Aug 14, 2016 09:37
[2016-08-14 09:40] LABS: ADD UMIC YES; URINE BILIRUBIN (Dip) NEGATIVE (NEGATIVE); URINE BLOOD (Dip) NEGATIVE (NEGATIVE); URINE COLOR LT. YELLOW (YELLOW); URINE GLUCOSE (Dip) NEGATIVE (NEGATIVE); URINE KETONES (Dip) NEGATIVE (NEGATIVE); URINE LEUKOCYTE ESTERASE (Dip) NEGATIVE (NEGATIVE); URINE NITRITE (Dip) NEGATIVE (NEGATIVE); URINE TOTAL PROTEIN (Dip) 2+ (NEGATIVE); URINE UROBILINOGEN (Dip) 0.2 E.U./dL (0.1-1.0)
[2016-08-14 09:55] LABS: BACTERIA,URINE RARE; URINE RBCS 0-2 /HPF (0)
[2016-08-14] MEDS ORDERED: LIDOCAINE 1% (MDV) 20 ML INJ SC ONE (10:00)
[2016-08-14] MEDS: HYDROCODONE/APAP (5/325) TAB PO PRN ×2 (12:52→13:03)
--- NOTE | 2016-08-14 13:47 | PN ---
DATE: 08/14/2016 SUBJECTIVE: No acute events overnight. The patient is alert, feels good, looks comfortable, denies pain, discomfort and wants to eat and waiting for lunch to arrive. No fevers. WBC today 10.7 with platelets 268, neutrophils 79.1, no bands. BUN 67, creatinine 1.65. MICROBIOLOGY: Results pending. DIAGNOSTICS: X-ray of left foot revealed first ray soft tissue swelling. ANTIMICROBIALS: Vancomycin and Zosyn. Urinalysis on admission was negative. PHYSICAL EXAMINATION: GENERAL: Obese, well-developed, middle-aged white man who is sitting at the edge of the bed. [place] moore is in no distress. HEENT: Head atraumatic, normocephalic. Sclerae anicteric. Buccal mucosa dry. NECK: Supple, trachea midline. CHEST: Rise symmetrical. Breath sounds clear, diminished to bases. HEART: S1, S2. ABDOMEN: Soft, bowel tones present. EXTREMITIES: Bilateral Patrick wraps. ASSESSMENT: 1. Bilateral lower extremities acute on chronic cellulitis with chronic venous stasis and questiona ble left toe osteomyelitis. 2. Systemic inflammatory response syndrome. 3. Questionable pneumonia as per chest x-ray. 4. Morbid obesity. 5. Atrial fibrillation, chronic. 6. Chronic kidney disease. PLAN: The patient remains stable. We are going to order MRI of his left toe and foot. Consider po diatry and vascular evaluation. Dictated By: JAMEY VAZQUEZ MANAGER STARS for DONAVAN BRITTON MD NI/NTS Conf#: [id number] DID#: [id number]
--- NOTE | 2016-08-14 16:38 | RADRPT ---
PROCEDURE: Chest 1 views. CLINICAL INDICATION: Post PICC line placement TECHNIQUE: AP views of the chest were obtained. COMPARISON: August 13, 2016 FINDINGS: The heart is large. Right-sided PICC line has its tip in the expected location of the distal superio r vena cava. Central pulmonary vascular congestion and interstitial prominence is seen in both lung s. Right perihilar and lower lung infiltrates have mildly increased. Small to moderate right pleur al effusion is present. Patchy atelectasis versus infiltrates in the left lower lobe are seen. Oss eous structures are intact. IMPRESSION: Cardiomegaly . Right-sided PICC line with its tip in the expected location of the distal superior vena cava. Continued central pulmonary vascular congestion and interstitial prominence in both lungs. Interval increase in perihilar and lower lung infiltrates throughout the right lung combined with sm all to moderate pleural effusion. Patchy atelectasis versus mild infiltrates in the left lower lobe. RPTAT: AA .Curly Trujillo MD, Date Time Electronically viewed and signed by .Curly Trujillo MD, on 08/14/2016 16:38 .P/
--- NOTE | 2016-08-14 16:39 | RADRPT ---
PROCEDURE: US guidance for PICC line CLINICAL INDICATION: PICC line placement TECHNIQUE: Multiple real-time images were acquired of the patient's arm utilizing a high resolutio n transducer. This was performed by the PICC line nurse for venous access. COMPARISON: None FINDINGS: Ultrasound guidance for PICC line placement. IMPRESSION: Ultrasound guidance for PICC line placement. RPTAT: AA .Stephen Cardona MD, MD Date Time Electronically viewed and signed by .Stephen Cardona MD, on 08/14/2016 16:39 .S/
[2016-08-14] MEDS ORDERED: SOD CHLORIDE 0.9% 100 ML ONE (16:52)
--- NOTE | 2016-08-14 17:37 | CONS ---
Date/Time of Note Date/Time of Note DATE: 08/14/16 TIME: 17:35 Assessment/Plan Assessment/Plan Problems: (1) Diabetic foot infection Status: Acute Comment: MRI of the left foot recommended; rule out OM of the left hallux. May require surgery pending MRI finding. Apply Betadine to the left foot daily. (2) Leg edema, right (3) Leg edema, left (4) Venous insufficiency (chronic) (peripheral) (5) FHx: congenital heart disease Additional Assessment/Plan Thank you again for involving me in the care of this patient. If you have any questions regarding this case, please feel free to contact me at pager: or reach me at mobile: [phone]. Consultation Date/Type/Reason Admit Date/Time 08/13/2016, 4:46 pm Date of Consultation: Aug 13, 2016 Type of Consultation: Foot and ankle surgery Reason for Consultation Left foot infection. Hx of Present Illness Thank you for involving me in the care of this patient. As you know, this is a 60 yo male with a past medical history of type II DM, osteomyelitis, HTN, atrial fibrillation, CHF with diastolic dysfunction, gout, morbid obesity, peripheral vascular disease, depression, CKD and chronic respiratory failure who came in for worsening left greater toe swelling and redness. Patient states that over the last several weeks, his left big toe has worsened. Patient is normally followed at [facility] with regular check ups and also has a wound care nurse at home. Patient c/o of worsening pain, swelling, fevers, no chills, with no active drainage noted. He is denies any chest pain, but has worsening shortness of breath requiring increased nasal cannula O2, no dizziness, nausea/vomiting/diarrhea/constipation, or other constitutional symptoms. Past Medical History As per HPI. Medical History: congestive heart failure, coronary artery disease, diabetes, high cholesterol, hypertension, renal disease, other (depression, gout, obesity , atrial fibrillation, chronic respiratory failure) Past Surgical History As per HPI. Past Surgical Hx: other Social History Alcohol Use: none Smoking Status: Never smoker Drug Use: none Exam/Review of Systems Vital Signs Vitals Vital Signs Date Time Temp Pulse Resp B/P Pulse Ox O2 Delivery O2 Flow Rate FiO2 08/14/16 14:31 5.0 08/14/16 14:31 71 18 95 Nasal Cannula 08/14/16 07:15 98.9 141/73 08/14/16 05:30 40 Intake and Output 08/13/16 08/13/16 08/14/16 15:00 23:00 07:00 Intake Total 50 ml 850 ml Output Total 700 ml Balance 50 ml 150 ml Exam Patient is morbidly obese in no acute distress. The left hallux is edematous with erythema and peeling of skin. There is maceration of skin noted in the left forefoot area with edema of the left foot. There is no active bleeding and no pus noted. There is malodor present. Pedal pulses are not palpable and TG is decreased on the left LE. Patient has tenderness to palpation and exam of the left forefoot. Pedal pulses are not palpable secondary to the edema present. Labs reviewed. Results Result Diagram: 08/14/16 0545 08/14/16 0545 Results 24 hrs Laboratory Tests Test 08/13/16 17:48 08/13/16 18:40 08/13/16 20:31 08/13/16 20:50 Bedside Glucose 127 259 H Activated Partial Thromboplast Time 41.9 H INR International Normalized Ratio 1.26 Lactic Acid Level 1.1 1.4 Prothrombin Time 15.9 H Prothrombin Time Ratio 1.2 Test 08/14/16 03:26 08/14/16 05:45 08/14/16 06:00 08/14/16 07:58 Bedside Glucose 103 100 Anion Gap 13 Basophils # 0.0 Basophils % 0.3 Blood Morphology Comment Blood Urea Nitrogen 67 H Calcium Level 8.4 Carbon Dioxide Level 32 H Chloride Level 91 L Creatinine 1.65 H Eosinophils # 0.4 Eosinophils % 3.5 Ferritin 121.0 Glucose Level 93 # Hematocrit 29.4 L Hemoglobin 9.7 L Lymphocytes # 0.5 L Lymphocytes % 5.1 L Mean Corpuscular Hemoglobin 25.2 L Mean Corpuscular Hemoglobin Concent 32.8 Mean Corpuscular Volume 76.8 L Mean Platelet Volume 8.3 Monocytes # 1.3 H Monocytes % 12.0 H Neutrophils # 8.5 H Neutrophils % 79.1 H Nucleated Red Blood Cells # 0.0 Nucleated Red Blood Cells % 0.0 Platelet Count 268 Potassium Level 4.7 Red Blood Count 3.83 L Red Cell Distribution Width 21.8 H Sodium Level 131 L White Blood Count 10.7 Urine Bacteria RARE Urine Bilirubin NEGATIVE Urine Clarity CLEAR Urine Color LT. YELLOW Urine Epithelial Cells RARE Urine Glucose NEGATIVE Urine Hemoglobin NEGATIVE Urine Ketones NEGATIVE Urine Leukocyte Esterase NEGATIVE Urine Microscopic RBC 0-2 Urine Microscopic WBC NONE SEEN Urine Nitrite NEGATIVE Urine Specific [place] 1.025 Urine Total Protein 2+ H Urine Urobilinogen 0.2 E.U./dL Urine pH 5.5 Test 08/14/16 12:12 08/14/16 17:17 Bedside Glucose 176 130 Medications Medications Current Medications Ondansetron HCl (Zofran Inj) 4 mg Q6H PRN IV NAUSEA AND/OR VOMITING; Start at 17:30 Acetaminophen (Tylenol Tab) 650 mg Q6H PRN PO PAIN LEVEL 1-3 OR FEVER; Start 08/13/16 at 17:30 Acetaminophen/ Hydrocodone Bitart ([place] (5/325)) 1 tab Q6H PRN PO MODERATE PAIN LEVEL 4-6; Start 08/13/16 at 17:30 Morphine Sulfate (morphine) 2 mg Q4H PRN IV SEVERE PAIN LEVEL 7-10 Last administered on 08/13/16at 17:58; Admin Dose 2 MG; Start 08/13/16 at 17:30 Docusate Sodium (Colace) 100 mg Q12H PRN PO CONSTIPATION; Start 08/13/16 at 17 :30 Famotidine (Pepcid) 20 mg Q12 PO Last administered on 08/14/16at 09:25; Admin Dose 20 MG; Start 08/13/16 at 21:00 Heparin Sodium (Porcine) (Heparin (5000 Units/0.5 ml)) 5,000 unit Q12 SC Last administered on 08/14/16at 09:29; Admin Dose 5,000 UNIT; Start 08/13/16 at 21: 00 Allopurinol (Zyloprim) 100 mg DAILY PO Last administered on 08/14/16at 09:26; Admin Dose 100 MG; Start 08/14/16 at 09:00 Ascorbic Acid (Vitamin C) 500 mg DAILY PO Last administered on 08/14/16at 09:25 ; Admin Dose 500 MG; Start 08/13/16 at 18:00 Aspirin (Halfprin) 81 mg DAILY PO Last administered on 08/14/16at 09:25; Admin Dose 81 MG; Start 08/14/16 at 09:00 Atorvastatin Calcium (Lipitor) 10 mg QHS PO Last administered on 08/13/16 20: 43; Admin Dose 10 MG; Start 08/13/16 at 21:00 Cholecalciferol (Vitamin D) 1,000 unit DAILY PO Last administered on 09:25; Admin Dose 1,000 UNIT; Start 08/14/16 at 09:00 Ferrous Sulfate (Ferrous Sulfate (Ec)) 325 mg BID PO Last administered on 08/14 09:25; Admin Dose 325 MG; Start 08/13/16 at 21:00 Fish Oil (Fish Oil) 1,000 mg DAILY PO Last administered on 08/14/16 09:26; Admin Dose 1,000 MG; Start 08/14/16 at 09:00 Insulin Glargine (Lantus) 12 unit QHS SC Last administered on 08/13/16 20:47 ; Admin Dose 12 UNIT; Start 08/13/16 at 21:00 Lactobacillus Acidoph/Bulgaricus (Floranex) 1 tab TID PO Last administered on 08/14/16 12:52; Admin Dose 1 TAB; Start 08/13/16 at 21:00 Lorazepam (Ativan) 0.5 mg Q6 PRN PO ANXIETY; Start 08/13/16 at 17:30 Metoprolol Tartrate (Lopressor) 12.5 mg BID PO Last administered on 08/14/16 09:27; Admin Dose 12.5 MG; Start 08/13/16 at 21:00 Pregabalin (Lyrica) 50 mg TID PO Last administered on 08/14/16 12:51; Admin Dose 50 MG; Start 08/13/16 at 21:00 Pyridoxine HCl (Vitamin B6) 100 mg DAILY PO Last administered on 08/14/16 09: 25; Admin Dose 100 MG; Start 08/14/16 at 09:00 Simethicone (Mylicon) 80 mg Q6H PRN PO INTESTINAL SPASMS/CRAMPING; Start 08/13 at 17:30 Vitamin E (Vitamin E) 400 units DAILY PO Last administered on 08/14/16 09:25 ; Admin Dose 400 UNITS; Start 08/14/16 at 09:00 Fluoxetine HCl (Prozac) 20 mg DAILY PO Last administered on 11/29/16at 09:25; Admin Dose 20 MG; Start 08/14/16 at 09:00 Fish Oil 1000 mg 1,000 mg TID PO Last administered on 08/14/16at 12:52; Admin Dose 1,000 MG; Start 08/13/16 at 21:00 Piperacillin Sod/ Tazobactam Sod (Zosyn 2.25gm/ 50ml (Pmx)) 50 ml @ 100 mls/hr Q8 IVPB Last administered on 08/14/16at 14:32; Admin Dose 100 MLS/HR; Start at 22:00 Miscellaneous Information 1 ea NOTE XX ; Start 08/13/16 at 18:00 Glucose (Glutose) 15 gm Q15M PRN PO DECREASED GLUCOSE; Start 08/13/16 at 18:00 Glucose (Glutose) 22.5 gm Q15M PRN PO DECREASED GLUCOSE; Start 08/13/16 at 18: 00 Dextrose (D50w Syringe) 25 ml Q15M PRN IV DECREASED GLUCOSE; Start 08/13/16 at 18:00 Dextrose (D50w Syringe) 50 ml Q15M PRN IV DECREASED GLUCOSE; Start 08/13/16 at 18:00 Glucagon (Glucagen) 1 mg Q15M PRN IM DECREASED GLUCOSE; Start 08/13/16 at 18: 00 Glucose 15 gm 15 gm Q15M PRN BUCCAL DECREASED GLUCOSE; Start 08/13/16 at 18:00 Vancomycin HCl/ Sodium Chloride (Vancocin/NS) 500 ml @ 125 mls/hr Q48H IVPB ; Start 08/15/16 at 16:00 Sodium Hypochlorite (Dakin'S (1/4 Strength)) 1 applic DAILY IRR Last administered on 08/13/16at 20:00; Admin Dose 1 APPLIC; Start 08/13/16 at 20:00 Acetaminophen/ Hydrocodone Bitart ([place] (5/325)) 2 tab Q6H PRN PO MODERATE PAIN LEVEL 4-6 Last administered on 08/14/16at 13:03; Admin Dose 2 TAB; Start 08/14/16 at 13:00 IV Flush (NS 10 ml) 10 ml PRN PRN IV IV PTOTOCOL; Start 08/14/16 at 17:00 NORMAN ACOSTA DPM Aug 14, 2016 17:36
--- NOTE | 2016-08-14 19:54 | PN ---
Date/Time of Note Date/Time of Note DATE: 08/14/16 TIME: 19:53 Assessment/Plan Lines/Catheters IV Catheter Type (from Nrsg): PICC Line Higgins in Place (from Nrsg): No Assessment/Plan Problems: (1) Diabetic foot infection Status: Acute Comment: Daily wound care to continue. Continue IV Abx and local wound care. At risk for limb loss. (2) Leg edema, right (3) Leg edema, left (4) Venous insufficiency (chronic) (peripheral) (5) Acute renal injury Status: Acute Assessment/Plan MRI to be done today. Patient will be followed inhouse. Subjective 24 Hr Interval Summary Patient was seen and examined. Denies overnight adverse events. States he is going to get his MRI done today. Denies fever or chills. Constitutional: no complaints Pain Control: well controlled Exam/Review of Systems Vital Signs Vitals Vital Signs Date Time Temp Pulse Resp B/P Pulse Ox O2 Delivery O2 Flow Rate FiO2 08/14/16 23:35 87 97 40 08/14/16 20:12 5.0 08/14/16 20:00 97.8 20 121/62 Room Air Intake and Output 08/14/16 08/14/16 08/15/16 15:00 23:00 07:00 Intake Total 890 ml Output Total 1500 ml Balance -610 ml Exam Free Text/Dictation Morbidly obese male in NAD. Left foot edema continues. Left hallux maceration continues. There is no active bleeding and no pus noted. No other wounds. Xrays shoe NO evidence of OM. No other changes noted. Labs reviewed. Results Result Diagram: 08/14/16 0545 08/14/16 0545 NORMAN ACOSTA DPM Aug 14, 2016 19:54
[2016-08-14 20:00] VITALS: BP 121/62; PULSE 70; RESP 20
[2016-08-14] MEDS: ATORVASTATIN 10 MG TAB PO SCH (20:35)
[2016-08-14] MEDS: INSULIN GLARGINE [LANtus] 3 ML PEN SC SCH (20:43)
[2016-08-14] MEDS: ZOLPIDEM 5 MG TAB PO PRN (22:40)
[2016-08-14 23:35] VITALS: PULSE 87
[2016-08-15 02:01] VITALS: PULSE 90
[2016-08-15] MEDS: PIPER-TAZO 2.25 GM (PMX) 50 ML IVPB SCH ×3 (05:35→21:30)
[2016-08-15] MEDS: BUMETANIDE 1 MG TAB PO SCH ×2 (05:36→13:39)
--- NOTE | 2016-08-15 06:02 | RADRPT ---
PROCEDURE: MR Foot. CLINICAL INDICATION: First toe ulcer. Question osteomyelitis. TECHNIQUE: Multiplanar T1 and STIR imaging without contrast COMPARISON: 2012 FINDINGS: There is a soft tissue defect of the distal aspect of the first toe. Diffuse skin thickening and ed carlos is seen. There is abnormal marrow signal of the distal aspect of the first distal phalanx with s mall areas of poorly defined cortex distally. The appearance is consistent with osteomyelitis. The re is slight inferior subluxation of the distal phalanx. A small amount of joint fluid is present a bout the first interphalangeal joint. There is mild degenerative change of the first metatarsophala ngeal joint with a subchondral cyst, osteophytes, and small joint effusion. The sesamoids are unrem arkable in appearance. Mild fluid is seen about the second and third metatarsophalangeal joints. N o other area of marrow edema is seen. No fracture or dislocation is seen. The Lisfranc joint appear s intact. No focal drainable fluid collection is seen. IMPRESSION: Cellulitis and osteomyelitis of the first toe. RPTAT: [facility] Physician Merna Date Time Electronically viewed and signed by Physician Merna on 08/15/2016 06:02 LE/
[2016-08-15 08:00] VITALS: BP 147/70; PULSE 88; RESP 20
[2016-08-15 08:08] LABS: EOSINOPHILS # 0.7 10^3/ul (0.0-0.5); EOSINOPHILS % 7.3 % (0.0-7.0); HEMATOCRIT 30.5 % (42.0-52.0); HEMOGLOBIN 9.9 g/dl (14.0-18.0); LYMPHOCYTES # 0.6 10^3/ul (0.8-2.9); MEAN CORPUSCULAR HGB CONC 32.3 g/dl (32.0-37.0); MEAN CORPUSCULAR VOLUME 77.4 fl (82.0-101.0); MEAN PLATELET VOLUME 8.1 fl (7.4-10.4); MONOCYTE # 1.1 10^3/ul (0.3-0.9); NEUTROPHIL # 6.7 10^3/ul (1.6-7.5); NEUTROPHILS % 73.7 % (39.0-77.0); PLATELET COUNT 283 10^3/UL (140-440); RED BLOOD COUNT 3.95 10^6/ul (4.70-6.10); RED CELL DISTRIBUTION WIDTH 21.6 % (11.5-14.5); UNCORRECTED WBC 9.1 10^3/ul (4.8-10.8); WHITE BLOOD COUNT 9.1 10^3/ul (4.8-10.8)
[2016-08-15 08:17] LABS: CONDITION 1; LH ANALYZER COMMENTS 1
[2016-08-15 08:23] LABS: POTASSIUM 4.1 mmol/L (3.5-5.1)
[2016-08-15 08:26] LABS: CREATININE 1.54 mg/dl (0.61-1.24)
[2016-08-15 08:27] LABS: CALCIUM 8.4 mg/dl (8.4-10.2)
[2016-08-15] MEDS: FISH OIL 1,000 MG CAP PO SCH ×4 (08:50→20:40)
[2016-08-15] MEDS: ASPIRIN (EC) 81 MG TAB PO SCH (08:50)
[2016-08-15] MEDS: CHOLECALCIFEROL 1,000 UNIT TAB PO SCH (08:50)
[2016-08-15] MEDS: FERROUS SULFATE (EC) 325 MG TAB PO SCH ×2 (08:50→20:40)
[2016-08-15] MEDS: FAMOTIDINE 20 MG TAB PO SCH ×2 (08:50→20:40)
[2016-08-15] MEDS: PREGABALIN 25 MG CAP PO SCH ×3 (08:50→20:40)
[2016-08-15] MEDS: PYRIDOXINE 50 MG TAB PO SCH (08:50)
[2016-08-15] MEDS: FLUOXETINE 20 MG CAP PO SCH (08:50)
[2016-08-15] MEDS: ALLOPURINOL 100 MG TAB PO SCH (08:50)
[2016-08-15] MEDS: ASCORBIC ACID 500 MG TAB PO SCH (08:50)
[2016-08-15] MEDS: LACTOBACILLUS CHEW TAB PO SCH ×3 (08:51→20:40)
[2016-08-15] MEDS: METOPROLOL 25 MG TAB PO SCH ×2 (08:51→20:41)
[2016-08-15] MEDS: VITAMIN E 400 UNITS CAP PO SCH (08:51)
[2016-08-15] MEDS: SODIUM HYPOCHLORITE 0.125% 473 ML BTL IRR SCH (08:51)
--- NOTE | 2016-08-15 10:11 | PN ---
Date/Time of Note Date/Time of Note DATE: 08/15/16 TIME: 10:08 Assessment/Plan VTE Prophylaxis VTE Prophylaxis Intervention: heparin Lines/Catheters IV Catheter Type (from Nrsg): PICC Line Central line still needed: Yes Urinary Cath still in place: No Assessment/Plan Assessment/Plan 60 yo male with a past medical history of type II DM, previous osteomyelitis, essential hypertension, atrial fibrillation, CHF with diastolic dysfunction, gout, morbid obesity, peripheral vascular disease, depression, CKD and chronic respiratory failure who came in for worsening left greater toe swelling and redness. 1. Left greater toe - osteomyelitis/cellulitis - PICC line for alf antibiotics, f/u podiatry recs - IV antibiotics 6 weeks 2. Leukocytosis - 2/2 #1, monitor acute changes - improved 3. Respiratory failure - continue with supplemental O2, recheck ABG and CXR today 4. Acute on Chronic Kidney Disease - avoid nephrotoxins, renally adjust medications - 2/2 to ATN - appreciate nephro recs 5. CHF diastolic dysfunction - stable continue with lasix, aspirin 6. Type II DM - recent hgba1c is 5.8, carb controlled/renal/cardiac diet, ISS 7. Essential hypertension - c/w BB, hold ACEI/ARB 2/2 to renal dysfunction, hydralazine prn for SBP > 160 8. Atrial Fibrillation - rate controlled - continue with heparin 9. Dyslipidemia - continue with statin 10. Gout - continue with allopurinol 11. Depression - continue SSRI 12. Morbid obesity - needs dietary consult 13. Anemia - acute on chronic - check iron profile, occult blood - transfuse if hgb < 8 g/dL 14. GI ppx - pepcid 15. DVT ppx - heparin dispo - f/u recs, PICC line insertion, monitor acute changes, CXr and ABG this progress note took greater than 30 minutes to complete Subjective 24 Hr Interval Summary Free Text/Dictation Patient states that he is doing ok. Otherwise spoke to him about the care plan. 15 minutes spent. Exam/Review of Systems Vital Signs Vitals Vital Signs Date Time Temp Pulse Resp B/P Pulse Ox O2 Delivery O2 Flow Rate FiO2 08/15/16 04:00 5.0 08/15/16 02:01 90 98 40 08/14/16 20:00 Nasal Cannula 08/14/16 20:00 97.8 20 121/62 Intake and Output 08/14/16 08/14/16 08/15/16 15:00 23:00 07:00 Intake Total 890 ml 700 ml Output Total 1500 ml 1800 ml Balance -610 ml -1100 ml Exam Gen [place]: mild respiratory distress, AAOx4, morbidly obese male HEENT: NC/AT, PERRLA, EOMI, no pharyngeal erythema, no tonsillar exudates, no lymphadenopathy, no JVD, no carotid bruits NECK: supple, no thyromegaly THORAX: symmetrical, no obvious deformities CV: S1S2, RRR, II/ systolic murmur best heard over the apex Lungs: diminished breath sounds to the bases bilaterally, no wheezing - improving Abd: soft, NT/ND, +BS, no rebound, no guarding, neg HSM, protuberant EXT: 3+ pitting edema, skin sloughing noted, left greater toe with surrounding erythema/edema, scattered petechiae upper extremities, easily bruisability, with adolfo wraps bilaterally Neuro: CN II-XII grossly intact, decreased proprioception bilateral lower extremities Psych: fair mood and affect Skin: see extremities Results Result Diagram: 08/15/16 0711 08/15/16 0711 Results 24 hrs Laboratory Tests Test 08/14/16 12:12 08/14/16 17:17 08/14/16 19:00 08/14/16 20:22 Bedside Glucose 176 130 151 Urine Random Creatinine 55.47 Urine Random Sodium < 13 L Test 08/15/16 07:11 08/15/16 07:51 Anion Gap 11 Basophils # 0.0 Basophils % 0.0 Blood Morphology Comment Blood Urea Nitrogen 62 H Calcium Level 8.4 Carbon Dioxide Level 35 H Chloride Level 91 L Creatinine 1.54 H Eosinophils # 0.7 H Eosinophils % 7.3 H Glucose Level 124 Hematocrit 30.5 L Hemoglobin 9.9 L Lymphocytes # 0.6 L Lymphocytes % 7.0 L Mean Corpuscular Hemoglobin 25.0 L Mean Corpuscular Hemoglobin Concent 32.3 Mean Corpuscular Volume 77.4 L Mean Platelet Volume 8.1 Monocytes # 1.1 H Monocytes % 12.0 H Neutrophils # 6.7 Neutrophils % 73.7 Nucleated Red Blood Cells # 0.0 Nucleated Red Blood Cells % 0.0 Platelet Count 283 Potassium Level 4.1 Red Blood Count 3.95 L Red Cell Distribution Width 21.6 H Sodium Level 133 L White Blood Count 9.1 Bedside Glucose 146 Medications Medications Current Medications Ondansetron HCl (Zofran Inj) 4 mg Q6H PRN IV NAUSEA AND/OR VOMITING; Start at 17:30 Acetaminophen (Tylenol Tab) 650 mg Q6H PRN PO PAIN LEVEL 1-3 OR FEVER; Start 08/13/16 at 17:30 Acetaminophen/ Hydrocodone Bitart ([place] (5/325)) 1 tab Q6H PRN PO MODERATE PAIN LEVEL 4-6; Start 08/13/16 at 17:30 Morphine Sulfate (morphine) 2 mg Q4H PRN IV SEVERE PAIN LEVEL 7-10 Last administered on 08/13/16at 17:58; Admin Dose 2 MG; Start 08/13/16 at 17:30 Docusate Sodium (Colace) 100 mg Q12H PRN PO CONSTIPATION; Start 08/13/16 at 17 :30 Famotidine (Pepcid) 20 mg Q12 PO Last administered on 08/14/16at 20:35; Admin Dose 20 MG; Start 08/13/16 at 21:00 Heparin Sodium (Porcine) (Heparin (5000 Units/0.5 ml)) 5,000 unit Q12 SC Last administered on 08/14/16at 20:43; Admin Dose 5,000 UNIT; Start 08/13/16 at 21: 00 Allopurinol (Zyloprim) 100 mg DAILY PO Last administered on 08/14/16 09:26; Admin Dose 100 MG; Start 08/14/16 at 09:00 Ascorbic Acid (Vitamin C) 500 mg DAILY PO Last administered on 08/14/16at 09:25 ; Admin Dose 500 MG; Start 08/13/16 at 18:00 Aspirin (Halfprin) 81 mg DAILY PO Last administered on 08/14/16 09:25; Admin Dose 81 MG; Start 08/14/16 at 09:00 Atorvastatin Calcium (Lipitor) 10 mg QHS PO Last administered on 08/14/16at 20: 35; Admin Dose 10 MG; Start 08/13/16 at 21:00 Cholecalciferol (Vitamin D) 1,000 unit DAILY PO Last administered on 09:25; Admin Dose 1,000 UNIT; Start 08/14/16 at 09:00 Ferrous Sulfate (Ferrous Sulfate (Ec)) 325 mg BID PO Last administered on 08/14 20:35; Admin Dose 325 MG; Start 08/13/16 at 21:00 Fish Oil (Fish Oil) 1,000 mg DAILY PO Last administered on 08/14/16 09:26; Admin Dose 1,000 MG; Start 08/14/16 at 09:00 Insulin Glargine (Lantus) 12 unit QHS SC Last administered on 08/14/16 20:43 ; Admin Dose 12 UNIT; Start 08/13/16 at 21:00 Lactobacillus Acidoph/Bulgaricus (Floranex) 1 tab TID PO Last administered on 08/14/16 20:34; Admin Dose 1 TAB; Start 08/13/16 at 21:00 Lorazepam (Ativan) 0.5 mg Q6 PRN PO ANXIETY; Start 08/13/16 at 17:30 Metoprolol Tartrate (Lopressor) 12.5 mg BID PO Last administered on 08/14/16 09:27; Admin Dose 12.5 MG; Start 08/13/16 at 21:00 Pregabalin (Lyrica) 50 mg TID PO Last administered on 08/14/16 20:35; Admin Dose 50 MG; Start 08/13/16 at 21:00 Pyridoxine HCl (Vitamin B6) 100 mg DAILY PO Last administered on 08/14/16 09: 25; Admin Dose 100 MG; Start 08/14/16 at 09:00 Simethicone (Mylicon) 80 mg Q6H PRN PO INTESTINAL SPASMS/CRAMPING; Start 08/13 at 17:30 Vitamin E (Vitamin E) 400 units DAILY PO Last administered on 08/14/16 09:25 ; Admin Dose 400 UNITS; Start 08/14/16 at 09:00 Fluoxetine HCl (Prozac) 20 mg DAILY PO Last administered on 08/14/16 09:25; Admin Dose 20 MG; Start 08/14/16 at 09:00 Fish Oil 1000 mg 1,000 mg TID PO Last administered on 08/14/16 20:35; Admin Dose 1,000 MG; Start 08/13/16 at 21:00 Piperacillin Sod/ Tazobactam Sod (Zosyn 2.25gm/ 50ml (Pmx)) 50 ml @ 100 mls/hr Q8 IVPB Last administered on 08/15/16at 05:35; Admin Dose 100 MLS/HR; Start at 22:00 Miscellaneous Information 1 ea NOTE XX ; Start 08/13/16 at 18:00 Glucose (Glutose) 15 gm Q15M PRN PO DECREASED GLUCOSE; Start 08/13/16 at 18:00 Glucose (Glutose) 22.5 gm Q15M PRN PO DECREASED GLUCOSE; Start 08/13/16 at 18: 00 Dextrose (D50w Syringe) 25 ml Q15M PRN IV DECREASED GLUCOSE; Start 08/13/16 at 18:00 Dextrose (D50w Syringe) 50 ml Q15M PRN IV DECREASED GLUCOSE; Start 08/13/16 at 18:00 Glucagon (Glucagen) 1 mg Q15M PRN IM DECREASED GLUCOSE; Start 08/13/16 at 18: 00 Glucose 15 gm 15 gm Q15M PRN BUCCAL DECREASED GLUCOSE; Start 08/13/16 at 18:00 Vancomycin HCl/ Sodium Chloride (Vancocin/NS) 500 ml @ 125 mls/hr Q48H IVPB ; Start 08/15/16 at 16:00 Sodium Hypochlorite (Dakin'S (1/4 Strength)) 1 applic DAILY IRR Last administered on 08/13/16at 20:00; Admin Dose 1 APPLIC; Start 08/13/16 at 20:00 Acetaminophen/ Hydrocodone Bitart ([place] (5/325)) 2 tab Q6H PRN PO MODERATE PAIN LEVEL 4-6 Last administered on 08/14/16at 13:03; Admin Dose 2 TAB; Start 08/14/16 at 13:00 IV Flush (NS 10 ml) 10 ml PRN PRN IV IV PTOTOCOL; Start 08/14/16 at 17:00 Bumetanide (Bumex) 1 mg 06,14 PO Last administered on 08/15/16at 05:36; Admin Dose 1 MG; Start 08/15/16 at 06:00 Procedures Procedures MRI foot IMPRESSION: Cellulitis and osteomyelitis of the first toe. KELLEN MEDINA MD Aug 15, 2016 10:11
[2016-08-15] MEDS: INSULIN ASPART [NOVOLOG] 3 ML PEN SC SCH ×4 (10:15→20:47)
[2016-08-15] MEDS: HEPARIN 5,000 UNIT/0.5 ML SYG SC SCH ×2 (10:15→20:43)
[2016-08-15 11:17] LABS: AADO2 Arterial 94.5 mmHg (7.0-24.0); Allen Test ACCEPTAB; Arterial Base Excess 6.1 mmol/L (-3.0-3); Arterial COHb 0.6 % (0.0-3.0); Arterial Fraction of Oxyhgb 96.1 % (93.0-99.0); Arterial HCO3 33.2 mmol/L (22.0-26.0); Arterial MetHb 0.2 % (0.0-1.5); Arterial Total Hemglobin 12.9 g/dl (12.0-18.0); MODE NASAL CANNULA
--- NOTE | 2016-08-15 11:56 | CONS ---
Date/Time of Note Date/Time of Note DATE: 08/15/16 TIME: 11:54 Assessment/Plan Assessment/Plan Additional Assessment/Plan 60 yo Male with 1) LORNA on CKD, Pre-Renal in the setting of diuretic Rx 2) Left toe cellulits R/o OM 3) HTN, Chronic 4) Diastolic Heart Failure, Chronic 5) Pulm HTN 6) Anema, Chroinc 7) RLL Patchy Consolidation R/o PNA Pt started on Borad Spectrum IV abx ID consulted MRI Positive for OM of toe. Renal Dose all Rx Cont current Diuretic Rx, Repeat chemistry in am Cont to monitor UO, Renal function and electrolytes. Stable and improved Consultation Date/Type/Reason Admit Date/Time Aug 13, 2016 at 16:30 Initial Consult Date 08/13/16 Type of Consultation: Nephrology Reason for Consultation LORNA, CKD Referring Provider: KELLEN MEDINA MD 24 HR Interval Summary Free Text/Dictation S/p MRI, No new complaints. Exam/Review of Systems Vital Signs Vitals Vital Signs Date Time Temp Pulse Resp B/P Pulse Ox O2 Delivery O2 Flow Rate FiO2 08/15/16 09:05 5.0 08/15/16 08:00 98.5 88 20 147/70 95 Nasal Cannula 08/15/16 02:01 40 Intake and Output 08/14/16 08/14/16 08/15/16 15:00 23:00 07:00 Intake Total 890 ml 700 ml Output Total 1500 ml 1800 ml Balance -610 ml -1100 ml Exam Constitutional: alert, No distress Head: atraumatic Eyes: EOMI Respiratory: No crackles/rales, No diminished breath sounds Cardiovascular: edema, regular rate and rhythm Gastrointestinal: distended, soft, No rebound or guarding 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: [employer] 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, nl mental status Skin: No diaphoresis Results Result Diagram: 08/15/16 0711 08/15/16 0711 Results 24 hrs Laboratory Tests Test 08/14/16 12:12 08/14/16 17:17 08/14/16 19:00 08/14/16 20:22 Bedside Glucose 176 130 151 Urine Random Creatinine 55.47 Urine Random Sodium < 13 L Test 08/15/16 07:11 08/15/16 07:51 08/15/16 10:11 08/15/16 11:38 Anion Gap 11 Basophils # 0.0 Basophils % 0.0 Blood Morphology Comment Blood Urea Nitrogen 62 H Calcium Level 8.4 Carbon Dioxide Level 35 H Chloride Level 91 L Creatinine 1.54 H Eosinophils # 0.7 H Eosinophils % 7.3 H Glucose Level 124 Hematocrit 30.5 L Hemoglobin 9.9 L Lymphocytes # 0.6 L Lymphocytes % 7.0 L Mean Corpuscular Hemoglobin 25.0 L Mean Corpuscular Hemoglobin Concent 32.3 Mean Corpuscular Volume 77.4 L Mean Platelet Volume 8.1 Monocytes # 1.1 H Monocytes % 12.0 H Neutrophils # 6.7 Neutrophils % 73.7 Nucleated Red Blood Cells # 0.0 Nucleated Red Blood Cells % 0.0 Platelet Count 283 Potassium Level 4.1 Red Blood Count 3.95 L Red Cell Distribution Width 21.6 H Sodium Level 133 L White Blood Count 9.1 Bedside Glucose 146 144 Arterial Blood HCO3 33.2 H Arterial Blood Base Excess 6.1 H Arterial Blood Oxygen Saturation 96.9 Khoi Test ACCEPTAB Arterial Blood Gas Puncture Site Right Radial Arterial Blood Carboxyhemoglobin 0.6 Arterial Blood Date Drawn 08/15/2016 11:00:27 AM Arterial Blood Methemoglobin 0.2 Arterial Blood pCO2 (Temp correct) 59.9 H Arterial Blood pH (Temp corrected) 7.362 Arterial Blood pO2 (Temp corrected) 92.7 Blood Gas A-a O2 Differential 94.5 H Blood Gas Modality NASAL CANNULA Blood Gas Notified Time 08/15/2016 11:17:07 AM Blood Gas Notified Whom JLD Blood Gas Specimen Source Blood arterial Blood Gas Temperature 37.0 FiO2 36.0 Oxyhemoglobin Percent 96.1 Total Hemoglobin 12.9 Medications Medications Current Medications Ondansetron HCl (Zofran Inj) 4 mg Q6H PRN IV NAUSEA AND/OR VOMITING; Start at 17:30 Acetaminophen (Tylenol Tab) 650 mg Q6H PRN PO PAIN LEVEL 1-3 OR FEVER; Start 08/13/16 at 17:30 Acetaminophen/ Hydrocodone Bitart ([place] (5/325)) 1 tab Q6H PRN PO MODERATE PAIN LEVEL 4-6; Start 08/13/16 at 17:30 Morphine Sulfate (morphine) 2 mg Q4H PRN IV SEVERE PAIN LEVEL 7-10 Last administered on 08/13/16at 17:58; Admin Dose 2 MG; Start 08/13/16 at 17:30 Docusate Sodium (Colace) 100 mg Q12H PRN PO CONSTIPATION; Start 08/13/16 at 17 :30 Famotidine (Pepcid) 20 mg Q12 PO Last administered on 08/15/16 08:50; Admin Dose 20 MG; Start 08/13/16 at 21:00 Heparin Sodium (Porcine) (Heparin (5000 Units/0.5 ml)) 5,000 unit Q12 SC Last administered on 08/15/16 10:15; Admin Dose 5,000 UNIT; Start 08/13/16 at 21: 00 Allopurinol (Zyloprim) 100 mg DAILY PO Last administered on 08/15/16 08:50; Admin Dose 100 MG; Start 08/14/16 at 09:00 Ascorbic Acid (Vitamin C) 500 mg DAILY PO Last administered on 08/15/16 08:50 ; Admin Dose 500 MG; Start 08/13/16 at 18:00 Aspirin (Halfprin) 81 mg DAILY PO Last administered on 08/15/16 08:50; Admin Dose 81 MG; Start 08/14/16 at 09:00 Atorvastatin Calcium (Lipitor) 10 mg QHS PO Last administered on 08/14/16 20: 35; Admin Dose 10 MG; Start 08/13/16 at 21:00 Cholecalciferol (Vitamin D) 1,000 unit DAILY PO Last administered on 08:50; Admin Dose 1,000 UNIT; Start 08/14/16 at 09:00 Ferrous Sulfate (Ferrous Sulfate (Ec)) 325 mg BID PO Last administered on 08/15 08:50; Admin Dose 325 MG; Start 08/13/16 at 21:00 Fish Oil (Fish Oil) 1,000 mg DAILY PO Last administered on 08/15/16 08:50; Admin Dose 1,000 MG; Start 08/14/16 at 09:00 Insulin Glargine (Lantus) 12 unit QHS SC Last administered on 08/14/16 20:43 ; Admin Dose 12 UNIT; Start 08/13/16 at 21:00 Lactobacillus Acidoph/Bulgaricus (Floranex) 1 tab TID PO Last administered on 08/15/16 08:51; Admin Dose 1 TAB; Start 08/13/16 at 21:00 Lorazepam (Ativan) 0.5 mg Q6 PRN PO ANXIETY; Start 08/13/16 at 17:30 Metoprolol Tartrate (Lopressor) 12.5 mg BID PO Last administered on 08/15/16at 08:51; Admin Dose 12.5 MG; Start 08/13/16 at 21:00 Pregabalin (Lyrica) 50 mg TID PO Last administered on 08/15/16 08:50; Admin Dose 50 MG; Start 08/13/16 at 21:00 Pyridoxine HCl (Vitamin B6) 100 mg DAILY PO Last administered on 08/15/16 08: 50; Admin Dose 100 MG; Start 08/14/16 at 09:00 Simethicone (Mylicon) 80 mg Q6H PRN PO INTESTINAL SPASMS/CRAMPING; Start 08/13 at 17:30 Vitamin E (Vitamin E) 400 units DAILY PO Last administered on 08/15/16at 08:51 ; Admin Dose 400 UNITS; Start 08/14/16 at 09:00 Fluoxetine HCl (Prozac) 20 mg DAILY PO Last administered on 08/15/16at 08:50; Admin Dose 20 MG; Start 08/14/16 at 09:00 Fish Oil 1000 mg 1,000 mg TID PO Last administered on 08/15/16 08:50; Admin Dose 1,000 MG; Start 08/13/16 at 21:00 Piperacillin Sod/ Tazobactam Sod (Zosyn 2.25gm/ 50ml (Pmx)) 50 ml @ 100 mls/hr Q8 IVPB Last administered on 08/15/16at 05:35; Admin Dose 100 MLS/HR; Start at 22:00 Miscellaneous Information 1 ea NOTE XX ; Start 08/13/16 at 18:00 Glucose (Glutose) 15 gm Q15M PRN PO DECREASED GLUCOSE; Start 08/13/16 at 18:00 Glucose (Glutose) 22.5 gm Q15M PRN PO DECREASED GLUCOSE; Start 08/13/16 at 18: 00 Dextrose (D50w Syringe) 25 ml Q15M PRN IV DECREASED GLUCOSE; Start 08/13/16 at 18:00 Dextrose (D50w Syringe) 50 ml Q15M PRN IV DECREASED GLUCOSE; Start 08/13/16 at 18:00 Glucagon (Glucagen) 1 mg Q15M PRN IM DECREASED GLUCOSE; Start 08/13/16 at 18: 00 Glucose 15 gm 15 gm Q15M PRN BUCCAL DECREASED GLUCOSE; Start 08/13/16 at 18:00 Vancomycin HCl/ Sodium Chloride (Vancocin/NS) 500 ml @ 125 mls/hr Q48H IVPB ; Start 08/15/16 at 16:00 Sodium Hypochlorite (Dakin'S (1/4 Strength)) 1 applic DAILY IRR Last administered on 08/15/16at 08:51; Admin Dose 1 APPLIC; Start 08/13/16 at 20:00 Acetaminophen/ Hydrocodone Bitart ([place] (5/325)) 2 tab Q6H PRN PO MODERATE PAIN LEVEL 4-6 Last administered on 08/14/16at 13:03; Admin Dose 2 TAB; Start 08/14/16 at 13:00 IV Flush (NS 10 ml) 10 ml PRN PRN IV IV PTOTOCOL; Start 08/14/16 at 17:00 Bumetanide (Bumex) 1 mg 06,14 PO Last administered on 08/15/16at 05:36; Admin Dose 1 MG; Start 08/15/16 at 06:00 DYAN FRANKLIN MD Aug 15, 2016 11:56
--- NOTE | 2016-08-15 13:16 | CONS ---
Date/Time of Note Date/Time of Note DATE: 08/15/16 TIME: 13:12 Consult Date/Type/Reason Admit Date/Time Aug 13, 2016 at 16:30 Initial Consult Date 08/13/16 Type of Consultation: ID Ordering Provider: KELLEN MEDINA MD Subjective no acute changes,looks comfortable, no fevers, nad Objective Vital Signs Date Time Temp Pulse Resp B/P Pulse Ox O2 Delivery O2 Flow Rate FiO2 08/15/16 09:05 5.0 08/15/16 08:00 98.5 88 20 147/70 95 Nasal Cannula 08/15/16 02:01 40 Intake and Output 08/14/16 08/14/16 08/15/16 15:00 23:00 07:00 Intake Total 890 ml 700 ml Output Total 1500 ml 1800 ml Balance -610 ml -1100 ml Results/Medications Result Diagram: 08/15/16 0711 08/15/16 0711 Results 24 hrs Laboratory Tests Test 08/14/16 17:17 08/14/16 19:00 08/14/16 20:22 08/15/16 07:11 Bedside Glucose 130 151 Urine Random Creatinine 55.47 Urine Random Sodium < 13 L Anion Gap 11 Basophils # 0.0 Basophils % 0.0 Blood Morphology Comment Blood Urea Nitrogen 62 H Calcium Level 8.4 Carbon Dioxide Level 35 H Chloride Level 91 L Creatinine 1.54 H Eosinophils # 0.7 H Eosinophils % 7.3 H Glucose Level 124 Hematocrit 30.5 L Hemoglobin 9.9 L Lymphocytes # 0.6 L Lymphocytes % 7.0 L Mean Corpuscular Hemoglobin 25.0 L Mean Corpuscular Hemoglobin Concent 32.3 Mean Corpuscular Volume 77.4 L Mean Platelet Volume 8.1 Monocytes # 1.1 H Monocytes % 12.0 H Neutrophils # 6.7 Neutrophils % 73.7 Nucleated Red Blood Cells # 0.0 Nucleated Red Blood Cells % 0.0 Platelet Count 283 Potassium Level 4.1 Red Blood Count 3.95 L Red Cell Distribution Width 21.6 H Sodium Level 133 L White Blood Count 9.1 Test 08/15/16 07:51 08/15/16 10:11 08/15/16 11:38 Bedside Glucose 146 144 Arterial Blood HCO3 33.2 H Arterial Blood Base Excess 6.1 H Arterial Blood Oxygen Saturation 96.9 Khoi Test ACCEPTAB Arterial Blood Gas Puncture Site Right Radial Arterial Blood Carboxyhemoglobin 0.6 Arterial Blood Date Drawn 08/15/2016 11:00:27 AM Arterial Blood Methemoglobin 0.2 Arterial Blood pCO2 (Temp correct) 59.9 H Arterial Blood pH (Temp corrected) 7.362 Arterial Blood pO2 (Temp corrected) 92.7 Blood Gas A-a O2 Differential 94.5 H Blood Gas Modality NASAL CANNULA Blood Gas Notified Time 08/15/2016 11:17:07 AM Blood Gas Notified Whom JLD Blood Gas Specimen Source Blood arterial Blood Gas Temperature 37.0 FiO2 36.0 Oxyhemoglobin Percent 96.1 Total Hemoglobin 12.9 Medications Current Medications Ondansetron HCl (Zofran Inj) 4 mg Q6H PRN IV NAUSEA AND/OR VOMITING; Start at 17:30 Acetaminophen (Tylenol Tab) 650 mg Q6H PRN PO PAIN LEVEL 1-3 OR FEVER; Start 08/13/16 at 17:30 Acetaminophen/ Hydrocodone Bitart ([place] (5/325)) 1 tab Q6H PRN PO MODERATE PAIN LEVEL 4-6; Start 08/13/16 at 17:30 Morphine Sulfate (morphine) 2 mg Q4H PRN IV SEVERE PAIN LEVEL 7-10 Last administered on 08/13/16at 17:58; Admin Dose 2 MG; Start 08/13/16 at 17:30 Docusate Sodium (Colace) 100 mg Q12H PRN PO CONSTIPATION; Start 08/13/16 at 17 :30 Famotidine (Pepcid) 20 mg Q12 PO Last administered on 08/15/16at 08:50; Admin Dose 20 MG; Start 08/13/16 at 21:00 Heparin Sodium (Porcine) (Heparin (5000 Units/0.5 ml)) 5,000 unit Q12 SC Last administered on 08/15/16at 10:15; Admin Dose 5,000 UNIT; Start 08/13/16 at 21: 00 Allopurinol (Zyloprim) 100 mg DAILY PO Last administered on 08/15/16at 08:50; Admin Dose 100 MG; Start 08/14/16 at 09:00 Ascorbic Acid (Vitamin C) 500 mg DAILY PO Last administered on 08/15/16at 08:50 ; Admin Dose 500 MG; Start 08/13/16 at 18:00 Aspirin (Halfprin) 81 mg DAILY PO Last administered on 08/15/16 08:50; Admin Dose 81 MG; Start 08/14/16 at 09:00 Atorvastatin Calcium (Lipitor) 10 mg QHS PO Last administered on 08/14/16 20: 35; Admin Dose 10 MG; Start 08/13/16 at 21:00 Cholecalciferol (Vitamin D) 1,000 unit DAILY PO Last administered on 08:50; Admin Dose 1,000 UNIT; Start 08/14/16 at 09:00 Ferrous Sulfate (Ferrous Sulfate (Ec)) 325 mg BID PO Last administered on 08/15 08:50; Admin Dose 325 MG; Start 08/13/16 at 21:00 Fish Oil (Fish Oil) 1,000 mg DAILY PO Last administered on 08/15/16 08:50; Admin Dose 1,000 MG; Start 08/14/16 at 09:00 Insulin Glargine (Lantus) 12 unit QHS SC Last administered on 08/14/16 20:43 ; Admin Dose 12 UNIT; Start 08/13/16 at 21:00 Lactobacillus Acidoph/Bulgaricus (Floranex) 1 tab TID PO Last administered on 08/15/16 08:51; Admin Dose 1 TAB; Start 08/13/16 at 21:00 Lorazepam (Ativan) 0.5 mg Q6 PRN PO ANXIETY; Start 08/13/16 at 17:30 Metoprolol Tartrate (Lopressor) 12.5 mg BID PO Last administered on 08/15/16 08:51; Admin Dose 12.5 MG; Start 08/13/16 at 21:00 Pregabalin (Lyrica) 50 mg TID PO Last administered on 08/15/16 08:50; Admin Dose 50 MG; Start 08/13/16 at 21:00 Pyridoxine HCl (Vitamin B6) 100 mg DAILY PO Last administered on 08/15/16 08: 50; Admin Dose 100 MG; Start 08/14/16 at 09:00 Simethicone (Mylicon) 80 mg Q6H PRN PO INTESTINAL SPASMS/CRAMPING; Start 08/13 at 17:30 Vitamin E (Vitamin E) 400 units DAILY PO Last administered on 08/15/16 08:51 ; Admin Dose 400 UNITS; Start 08/14/16 at 09:00 Fluoxetine HCl (Prozac) 20 mg DAILY PO Last administered on 08/15/16at 08:50; Admin Dose 20 MG; Start 08/14/16 at 09:00 Fish Oil 1000 mg 1,000 mg TID PO Last administered on 08/15/16at 08:50; Admin Dose 1,000 MG; Start 08/13/16 at 21:00 Piperacillin Sod/ Tazobactam Sod (Zosyn 2.25gm/ 50ml (Pmx)) 50 ml @ 100 mls/hr Q8 IVPB Last administered on 08/15/16at 05:35; Admin Dose 100 MLS/HR; Start at 22:00 Miscellaneous Information 1 ea NOTE XX ; Start 08/13/16 at 18:00 Glucose (Glutose) 15 gm Q15M PRN PO DECREASED GLUCOSE; Start 08/13/16 at 18:00 Glucose (Glutose) 22.5 gm Q15M PRN PO DECREASED GLUCOSE; Start 08/13/16 at 18: 00 Dextrose (D50w Syringe) 25 ml Q15M PRN IV DECREASED GLUCOSE; Start 08/13/16 at 18:00 Dextrose (D50w Syringe) 50 ml Q15M PRN IV DECREASED GLUCOSE; Start 08/13/16 at 18:00 Glucagon (Glucagen) 1 mg Q15M PRN IM DECREASED GLUCOSE; Start 08/13/16 at 18: 00 Glucose 15 gm 15 gm Q15M PRN BUCCAL DECREASED GLUCOSE; Start 08/13/16 at 18:00 Vancomycin HCl/ Sodium Chloride (Vancocin/NS) 500 ml @ 125 mls/hr Q48H IVPB ; Start 08/15/16 at 16:00 Sodium Hypochlorite (Dakin'S (1/4 Strength)) 1 applic DAILY IRR Last administered on 08/15/16at 08:51; Admin Dose 1 APPLIC; Start 08/13/16 at 20:00 Acetaminophen/ Hydrocodone Bitart ([place] (5/325)) 2 tab Q6H PRN PO MODERATE PAIN LEVEL 4-6 Last administered on 08/14/16at 13:03; Admin Dose 2 TAB; Start 08/14/16 at 13:00 IV Flush (NS 10 ml) 10 ml PRN PRN IV IV PTOTOCOL; Start 08/14/16 at 17:00 Bumetanide (Bumex) 1 mg 06,14 PO Last administered on 08/15/16at 05:36; Admin Dose 1 MG; Start 08/15/16 at 06:00 Assessment/Plan Chief Complaint/Hosp Course MICROBIOLOGY: Bld cx+ St aureus DIAGNOSTICS: MRI revealed cellulitis and osteomyelitis of the left first toe. ANTIMICROBIALS: Vancomycin and Zosyn. Urinalysis on admission was negative. PHYSICAL EXAMINATION: GENERAL: Obese, well-developed, middle-aged white man who is sitting at the edge of the bed. Patient is in no distress. HEENT: Head atraumatic, normocephalic. Sclerae anicteric. Buccal mucosa dry. NECK: Supple, trachea midline. CHEST: Rise symmetrical. Breath sounds clear, diminished to bases. HEART: S1, S2. ABDOMEN: Soft, bowel tones present. EXTREMITIES: Bilateral Patrick wraps. ASSESSMENT: 1. Bilateral lower extremities acute on chronic cellulitis with chronic venous stasis and left toe osteomyelitis. 2. Systemic inflammatory response syndrome 2 to above. 3. Septicemia==>likely MRSA 4. Questionable pneumonia as per chest x-ray. 5. Morbid obesity. 6. Atrial fibrillation, chronic. 7. Chronic kidney disease. PLAN: Clinically stable. Pending final cx's, podiatry follows, continue abx. [facility] staff Problems: JAMEY VAZQUEZ NP Aug 15, 2016 13:16
--- NOTE | 2016-08-15 13:47 | RADRPT ---
PROCEDURE: Chest 1 views. CLINICAL INDICATION: Shortness of breath TECHNIQUE: AP views of the chest were obtained. COMPARISON: August 14, 2016 FINDINGS: The heart is large. Central pulmonary vascular congestion and interstitial prominence in both lungs is unchanged. Patchy perihilar infiltrates throughout the right lung combined with small pleural ef fusion are stable. Perihilar left lower lobe infiltrates are unchanged. Osseous structures are int act. IMPRESSION: Cardiomegaly . Stable central pulmonary vascular congestion and interstitial prominence in both lungs. Stable patchy perihilar infiltrates throughout the right lung combined with small pleural effusion. Stable patchy perihilar left lower lobe infiltrates. RPTAT: AA .Curly Trujillo MD, Date Time Electronically viewed and signed by .Curly Trujillo MD, on 08/15/2016 13:47 .P/
--- NOTE | 2016-08-15 13:53 | RADRPT ---
PROCEDURE: Bilateral lower extremity arterial ultrasound CLINICAL INDICATION: Lower extremity pain and claudication TECHNIQUE: Norris-scale and color images with doppler of the lower extremities were obtained COMPARISON: May 17, 2016 FINDINGS: Antegrade flow is noted in all visulaized arteries of the lower extremities. Monophasic wave forms a re identified in the left popliteal artery and below. Monophasic wave form is identified in the rig ht dorsalis pedis artery. Biphasic and triphasic waveforms are seen in the remainder of the visuali zed arteries. Calcified atherosclerosis is seen throughout the lower leg runoff vessels. Rt GI ASST 94 cm/s Rt Profunda 61 cm/s Rt Prox SFA 106 cm/s Rt Mid SFA 81 cm/s Rt Dist SFA 105 cm/s Rt Jennifer 81 cm/s Rt Post Tibial 106 cm/s Rt Dorsalis Pedis 56 cm/s Rt NICKO not performed Lt GI ASST 108 cm/s Lt Profunda 80 cm/s Lt Prox SFA 115 cm/s Lt Mid SFA 129 cm/s Lt Dist SFA 139 cm/s Lt Jennifer 99 cm/s Lt Post Tibial 138 cm/s Lt Dorsalis Pedis 106 cm/s Lt NICKO not performed IMPRESSION: Monophasic waveforms in the left popliteal artery and below suggesting inflow disease into the left popliteal artery. Monophasic wave form in the right dorsalis pedis artery suggesting inflow disease into the right caren salis pedis artery. Calcified atherosclerosis throughout the lower leg runoff vessels. If further characterization of the arterial vasculature of the lower extremities is needed CTA is re commended. RPTAT: AA .Curly Trujillo MD, Date Time Electronically viewed and signed by .Curly Trujillo MD, MD on 08/15/2016 13:53 .P/
[2016-08-15] MEDS: VANCOMYCIN 2 GM in SOD CHLORIDE 0.9% 500 ML IVPB SCH (15:36)
[2016-08-15 20:10] VITALS: BP 139/62; PULSE 72; RESP 20
[2016-08-15] MEDS: ATORVASTATIN 10 MG TAB PO SCH (20:40)
[2016-08-15] MEDS: INSULIN GLARGINE [LANtus] 3 ML PEN SC SCH (20:44)
[2016-08-15] MEDS: ZOLPIDEM 5 MG TAB PO PRN ×2 (22:18→23:45)
[2016-08-15 22:52] VITALS: PULSE 94
--- NOTE | 2016-08-15 23:57 | PN ---
Date/Time of Note Date/Time of Note DATE: 08/15/16 TIME: 23:57 Assessment/Plan Lines/Catheters IV Catheter Type (from Nrs): PICC Line Higgins in Place (from Nrs): No Assessment/Plan Problems: (1) Diabetic foot infection Status: Acute (2) Leg edema, right (3) Leg edema, left (4) Venous insufficiency (chronic) (peripheral) (5) Acute renal injury Status: Acute Assessment/Plan Patient will be having lower extremity arterial intervention by vascular surgery. Continue daily dressing changes prognosis is guarded. Patient will be followed in-house. Subjective 24 Hr Interval Summary Patient was seen at bedside. Patient is in no acute distress. Patient reports no new adverse events. Patient denies fever, chills, nausea or vomiting. Patient denies pain. Patient denies recent trauma. Patient reports bandages are being changed as directed. Patient does not report any new problems. Constitutional: no complaints Pain Control: well controlled Exam/Review of Systems Vital Signs Vitals Vital Signs Date Time Temp Pulse Resp B/P Pulse Ox O2 Delivery O2 Flow Rate FiO2 08/17/16 13:54 76 20 93 Nasal Cannula 4.0 08/17/16 08:00 97.9 138/81 08/16/16 22:41 40 Intake and Output 08/16/16 08/16/16 08/17/16 15:00 23:00 07:00 Intake Total 420 ml 720 ml 1040 ml Output Total 700 ml 600 ml Balance 420 ml 20 ml 440 ml Exam Free Text/Dictation The patient is laying supine in bed in no acute distress. Patient is morbidly obese. Bandages are C/D/I; removed for examination. Open wound present right hallux. The area appears to be macerated and necrotic. Wound is not improved significantly since last visit. There is no drainage and no bleeding noted at this time. There is decrease in erythema. Nontender to palpation. Pedal pulses weakly palpable bilaterally. Edema significant bilateral lower extremity. Protective sensation is diminished to sharp, dull, vibratory and temperature stimuli. Deep tendon reflexes are normal bilaterally. Muscle power is 5/5 bilateral lower extremity. No calf atrophy noted on exam. Results Result Diagram: 08/16/16 0525 08/17/16 0544 NORMAN ACOSTA DPM Aug 15, 2016 23:57
[2016-08-16 01:16] VITALS: PULSE 87
[2016-08-16] MEDS ORDERED: SOD CHLORIDE 0.9% 1,000 ML IV SCH (03:00)
--- NOTE | 2016-08-16 04:56 | CONS ---
DATE OF ADMISSION: 08/13/2016 DATE OF CONSULTATION: 08/15/2016 VASCULAR SURGERY CONSULTATION Dear Doctors: Mr. Fabian is a 60-year-old gentleman who is morbidly obese with a history of bilateral lower extremit y venous insufficiency and left first toe wound that had been managed at [facility] Unfortunately, the patient was admitted for cellulitis and worsening of his first great toe invo lving it becoming more necrotic and developing gangrene. Vascular surgery consultation was obtained for evaluation of his lower extremity perfusion. There was suggestion that the patient, on x-ray, has osteomyelitis of the first toe. At the moment, he denies shortness of breath, chest pain, nause a, vomiting, fever, or chills. The patient does mention that he does have some ambulatory difficult ies as his weight contributes to it and also having some history of disabling claudication. REVIEW OF SYSTEMS: A 12-point review performed and negative except what is mentioned in the HPI. T he patient denies shortness of breath, chest pain, nausea, vomiting, fever, or chills. Denies rest pain. PAST MEDICAL HISTORY: Entails coronary artery disease, diabetes, hypercholesterolemia, hypertension , chronic kidney disease, stage III to IV, depression, gout, morbidly obese, atrial fibrillation, ch ronic respiratory failure, depression, congestive heart failure with diastolic dysfunction, history of osteomyelitis, diabetes type 2. FAMILY HISTORY: Positive for coronary artery disease. SOCIAL HISTORY: Ex-smoker. Denies current tobacco, alcohol, or illicit drug use. PHYSICAL EXAMINATION: GENERAL: Alert and oriented x3, no apparent distress. HEENT: Normocephalic, atraumatic. PERRLA, EOMI. Mucosa moist. NECK: Supple. No carotid bruit. PULMONARY: Clear to auscultation bilaterally, and no crackles. CARDIOVASCULAR: S1, S2 present. There is a systolic murmur, grade II/, over the apex. ABDOMEN: Soft, nontender, nondistended. Bowel sounds positive. Large truncal obesity and the larg e pannus. EXTREMITIES: RIGHT LOWER EXTREMITY: Unable to palpate the right femoral pulse secondary to body habitus, nonpalp able pedal pulse. Motor, sensory intact. Capillary refill 3 seconds. The patient has 2-layer comp ression dressing also intact which was removed for evaluation. He does have edema of 2+. LEFT LOWER EXTREMITY: Palpable femoral pulse, difficult to obtain secondary to body habitus. Nonpa lpable pedal pulse. Motor, sensory intact. Cap refill 3 to 4 seconds. First toe gangrene. Edema 2+, 2-layer compression is intact and was removed for evaluation. ASSESSMENT AND PLAN: 1. Bilateral lower extremity venous insufficiency with history of stasis ulcer. It seems the patie nt has a mixed arterial and venous disease. At the moment, the patient will require to undergo bila teral lower extremity venous reflux studies in order to evaluate the patient's superficial and deep venous reflux. The patient has had a history of right lower extremity venous ablation that was done at outside location. 2. Bilateral lower extremity atherosclerosis with left foot gangrene. It seems the patient has dev eloped a left first toe gangrene despite his wound care. Upon his noninvasive vascular studies, it was identified the patient has severe bilateral lower extremity infrainguinal disease in which he wo uld require further assessment with obtaining an angiogram. We will plan to obtain an angiogram nini orrow, and we will plan to keep the patient n.p.o. overnight. 3. Optimize vascular status (BP meds, diet, nutrition, exercise, weight loss, antiplatelet, sugar c ontrol). Discussed findings, plan, and management with the patient and he understands. Thank you for allowing us to partake in the care of your patient. Please call with any questions. Continue with our 2-layer compression; however, I am concerned with our compression therapy may not provide adequate wound care for the patient as he may have limited perfusion to the lower extremitie s. Continue with either applying Santyl to his first toe gangrene site or betadine paint. Dictated By: JOSE ANGEL STEVENS/GREGORY Conf#: [id number] DID#: [id number]
--- NOTE | 2016-08-16 05:04 | RADRPT ---
PROCEDURE: US Lower extremity Venous. CLINICAL INDICATION: Preoperative vein mapping TECHNIQUE: Multiple sonographic images of the bilateral lower extremity deep an superficial venous system was obtained utilizing grayscale, color-flow, compressive sonography and doppler imaging wit h augmentation. The images were reviewed on a PACS workstation. COMPARISON: None. FINDINGS: There is normal compressibility and flow within the bilateral common femoral, deep femoral, superfic ial femoral, posterior tibial, peroneal and popliteal veins. Several segments of both saphenous vei ns appeared slightly varicose as reflected in the measurement below. The right great saphenous vein was divided in eight segments from top to bottom. Measurements were obtained. 1. 1.07 cm 2. 0.47 cm 3. 0.35 cm 4. 0.51 cm 5. 0.38 cm 6. 0.48 cm 7. 0.46 cm 8. 0.41 cm The left great saphenous vein was divided in eight segments from top to bottom. Measurements were o btained. 1. 1.1 cm 2. 0.67 cm 3. 0.6 cm 4. 0.7 Y cm 5. 0.43 cm 6. 0.34 cm 7. 0.52 cm 8. 0.3 cm IMPRESSION: No sonographic evidence for deep venous thrombosis. Vein mapping was obtained. Several portions of both saphenous vein are slightly varicose. RPTAT: HLBE Physician Merna Date Time Electronically viewed and signed by Prema Yang Physician on 08/16/2016 05:04 MANDY/
[2016-08-16] MEDS: BUMETANIDE 1 MG TAB PO SCH ×2 (05:32→15:27)
[2016-08-16] MEDS: PIPER-TAZO 2.25 GM (PMX) 50 ML IVPB SCH (05:32)
[2016-08-16 06:40] LABS: BASOPHILS % 0.4 % (0.0-2.0); EOSINOPHILS # 0.7 10^3/ul (0.0-0.5); EOSINOPHILS % 8.6 % (0.0-7.0); HEMOGLOBIN 9.6 g/dl (14.0-18.0); LYMPHOCYTES # 0.8 10^3/ul (0.8-2.9); LYMPHOCYTES % 9.7 % (15.0-51.0); MEAN CORPUSCULAR HEMOGLOBIN 24.7 pg (29.0-33.0); MEAN CORPUSCULAR VOLUME 77.2 fl (82.0-101.0); MEAN PLATELET VOLUME 8.3 fl (7.4-10.4); MONOCYTE # 0.9 10^3/ul (0.3-0.9); MONOCYTES % 11.2 % (0.0-11.0); NEUTROPHIL # 5.7 10^3/ul (1.6-7.5); NEUTROPHILS % 70.1 % (39.0-77.0); PLATELET COUNT 279 10^3/UL (140-440); RED BLOOD COUNT 3.88 10^6/ul (4.70-6.10); RED CELL DISTRIBUTION WIDTH 21.4 % (11.5-14.5); UNCORRECTED WBC 8.2 10^3/ul (4.8-10.8); WHITE BLOOD COUNT 8.2 10^3/ul (4.8-10.8)
[2016-08-16 06:50] LABS: POTASSIUM 4.1 mmol/L (3.5-5.1)
[2016-08-16 06:52] LABS: CREATININE 1.36 mg/dl (0.61-1.24)
[2016-08-16 06:53] LABS: CALCIUM 7.9 mg/dl (8.4-10.2)
[2016-08-16 06:57] LABS: CONDITION 1; LH ANALYZER COMMENTS 1
[2016-08-16] MEDS: INSULIN ASPART [NOVOLOG] 3 ML PEN SC SCH ×4 (07:43→21:55)
[2016-08-16 08:00] VITALS: BP 143/87; PULSE 77; RESP 20
[2016-08-16] MEDS: FERROUS SULFATE (EC) 325 MG TAB PO SCH ×2 (09:00→21:56)
[2016-08-16] MEDS: FAMOTIDINE 20 MG TAB PO SCH ×2 (09:00→21:57)
[2016-08-16] MEDS: SODIUM HYPOCHLORITE 0.125% 473 ML BTL IRR SCH (09:00)
[2016-08-16] MEDS: HEPARIN 5,000 UNIT/0.5 ML SYG SC SCH ×2 (09:00→21:53)
--- NOTE | 2016-08-16 09:37 | PN ---
Date/Time of Note Date/Time of Note DATE: 08/16/16 TIME: 09:32 Assessment/Plan VTE Prophylaxis VTE Prophylaxis Intervention: heparin Lines/Catheters IV Catheter Type (from Nrsg): PICC Line Central line still needed: Yes Urinary Cath still in place: No Assessment/Plan Assessment/Plan 60 yo male with a past medical history of type II DM, previous osteomyelitis, essential hypertension, atrial fibrillation, CHF with diastolic dysfunction, gout, morbid obesity, peripheral vascular disease, depression, CKD and chronic respiratory failure who came in for worsening left greater toe swelling and redness. 1. Left greater toe - osteomyelitis/cellulitis - PICC line for detention antibiotics, f/u podiatry recs - IV antibiotics 6 weeks - ? debridement 2. Leukocytosis - 2/2 #1, monitor acute changes - improved 3. Respiratory failure - continue with supplemental O2, recheck ABG worsening PCo2 4. Acute on Chronic Kidney Disease - avoid nephrotoxins, renally adjust medications - 2/2 to ATN - appreciate nephro recs 5. CHF diastolic dysfunction - stable continue with lasix, aspirin 6. Type II DM - recent hgba1c is 5.8, carb controlled/renal/cardiac diet, ISS 7. Essential hypertension - c/w BB, hold ACEI/ARB 2/2 to renal dysfunction, hydralazine prn for SBP > 160 8. Atrial Fibrillation - rate controlled - continue with heparin 9. Dyslipidemia - continue with statin 10. Gout - continue with allopurinol 11. Depression - continue SSRI 12. Morbid obesity - needs dietary consult 13. Anemia - acute on chronic - check iron profile, occult blood - transfuse if hgb < 8 g/dL 14. GI ppx - pepcid 15. DVT ppx - heparin dispo - f/u recs, PICC line insertion, monitor acute changes, f/u podiatry recs this progress note took greater than 30 minutes to complete Subjective 24 Hr Interval Summary Free Text/Dictation Patient had no overnight events. Denies any current pain. Spoke to the patient about the care plan. 15 minutes spent. Exam/Review of Systems Vital Signs Vitals Vital Signs Date Time Temp Pulse Resp B/P Pulse Ox O2 Delivery O2 Flow Rate FiO2 08/16/16 04:27 5.0 08/16/16 01:16 87 98 40 08/15/16 20:10 Nasal Cannula 08/15/16 20:10 97.9 20 139/62 Intake and Output 08/15/16 08/15/16 08/16/16 15:00 23:00 07:00 Intake Total 50 ml 1360 ml 880 ml Output Total 1150 ml 900 ml Balance 50 ml 210 ml -20 ml Exam Gen Glen: mild respiratory distress, AAOx4, morbidly obese male HEENT: NC/AT, PERRLA, EOMI, no pharyngeal erythema, no tonsillar exudates, no lymphadenopathy, no JVD, no carotid bruits NECK: supple, no thyromegaly THORAX: symmetrical, no obvious deformities CV: S1S2, RRR, II/ systolic murmur best heard over the apex Lungs: diminished breath sounds to the bases bilaterally, no wheezing - improving Abd: soft, NT/ND, +BS, no rebound, no guarding, neg HSM, protuberant EXT: 2+ pitting edema, skin sloughing noted, left greater toe with surrounding erythema/edema, scattered petechiae upper extremities, easily bruisability, with adolfo wraps bilaterally Neuro: CN II-XII grossly intact, decreased proprioception bilateral lower extremities Psych: fair mood and affect Skin: see extremities Results Result Diagram: 08/16/1625 08/16/16 0525 Results 24 hrs Laboratory Tests Test 08/15/16 10:11 08/15/16 11:38 08/15/16 17:18 08/15/16 20:04 Arterial Blood HCO3 33.2 H Arterial Blood Base Excess 6.1 H Arterial Blood Oxygen Saturation 96.9 Khoi Test ACCEPTAB Arterial Blood Gas Puncture Site Right Radial Arterial Blood Carboxyhemoglobin 0.6 Arterial Blood Date Drawn 08/15/2016 11:00:27 AM Arterial Blood Methemoglobin 0.2 Arterial Blood pCO2 (Temp correct) 59.9 H Arterial Blood pH (Temp corrected) 7.362 Arterial Blood pO2 (Temp corrected) 92.7 Blood Gas A-a O2 Differential 94.5 H Blood Gas Modality NASAL CANNULA Blood Gas Notified Time 08/15/2016 11:17:07 AM Blood Gas Notified Whom DIGNAD Blood Gas Specimen Source Blood arterial Blood Gas Temperature 37.0 FiO2 36.0 Oxyhemoglobin Percent 96.1 Total Hemoglobin 12.9 Bedside Glucose 144 176 218 Test 08/16/16 05:25 08/16/16 07:39 Anion Gap 12 Basophils # 0.0 Basophils % 0.4 Blood Morphology Comment Blood Urea Nitrogen 59 H Calcium Level 7.9 L Carbon Dioxide Level 32 H Chloride Level 97 Creatinine 1.36 H Eosinophils # 0.7 H Eosinophils % 8.6 H Glucose Level 97 Hematocrit 30.0 L Hemoglobin 9.6 L Lymphocytes # 0.8 Lymphocytes % 9.7 L Mean Corpuscular Hemoglobin 24.7 L Mean Corpuscular Hemoglobin Concent 32.0 Mean Corpuscular Volume 77.2 L Mean Platelet Volume 8.3 Monocytes # 0.9 Monocytes % 11.2 H Neutrophils # 5.7 Neutrophils % 70.1 Nucleated Red Blood Cells # 0.0 Nucleated Red Blood Cells % 0.0 Platelet Count 279 Potassium Level 4.1 Red Blood Count 3.88 L Red Cell Distribution Width 21.4 H Sodium Level 137 White Blood Count 8.2 Bedside Glucose 105 Medications Medications Current Medications Ondansetron HCl (Zofran Inj) 4 mg Q6H PRN IV NAUSEA AND/OR VOMITING; Start at 17:30 Acetaminophen (Tylenol Tab) 650 mg Q6H PRN PO PAIN LEVEL 1-3 OR FEVER; Start 08/13/16 at 17:30 Acetaminophen/ Hydrocodone Bitart (Gail (5/325)) 1 tab Q6H PRN PO MODERATE PAIN LEVEL 4-6; Start 08/13/16 at 17:30 Morphine Sulfate (morphine) 2 mg Q4H PRN IV SEVERE PAIN LEVEL 7-10 Last administered on 08/13/16at 17:58; Admin Dose 2 MG; Start 08/13/16 at 17:30 Docusate Sodium (Colace) 100 mg Q12H PRN PO CONSTIPATION; Start 08/13/16 at 17 :30 Famotidine (Pepcid) 20 mg Q12 PO Last administered on 08/15/16at 20:40; Admin Dose 20 MG; Start 08/13/16 at 21:00 Heparin Sodium (Porcine) (Heparin (5000 Units/0.5 ml)) 5,000 unit Q12 SC Last administered on 08/15/16at 20:43; Admin Dose 5,000 UNIT; Start 08/13/16 at 21: 00 Allopurinol (Zyloprim) 100 mg DAILY PO Last administered on 08/15/16at 08:50; Admin Dose 100 MG; Start 08/14/16 at 09:00 Ascorbic Acid (Vitamin C) 500 mg DAILY PO Last administered on 08/15/16 08:50 ; Admin Dose 500 MG; Start 08/13/16 at 18:00 Aspirin (Halfprin) 81 mg DAILY PO Last administered on 08/15/16 08:50; Admin Dose 81 MG; Start 08/14/16 at 09:00 Atorvastatin Calcium (Lipitor) 10 mg QHS PO Last administered on 08/15/16 20: 40; Admin Dose 10 MG; Start 08/13/16 at 21:00 Cholecalciferol (Vitamin D) 1,000 unit DAILY PO Last administered on 08:50; Admin Dose 1,000 UNIT; Start 08/14/16 at 09:00 Ferrous Sulfate (Ferrous Sulfate (Ec)) 325 mg BID PO Last administered on 08/15 20:40; Admin Dose 325 MG; Start 08/13/16 at 21:00 Fish Oil (Fish Oil) 1,000 mg DAILY PO Last administered on 08/15/16 08:50; Admin Dose 1,000 MG; Start 08/14/16 at 09:00 Insulin Glargine (Lantus) 12 unit QHS SC Last administered on 08/15/16 20:44 ; Admin Dose 12 UNIT; Start 08/13/16 at 21:00 Lactobacillus Acidoph/Bulgaricus (Floranex) 1 tab TID PO Last administered on 08/15/16 20:40; Admin Dose 1 TAB; Start 08/13/16 at 21:00 Lorazepam (Ativan) 0.5 mg Q6 PRN PO ANXIETY; Start 08/13/16 at 17:30 Metoprolol Tartrate (Lopressor) 12.5 mg BID PO Last administered on 08/15/16 20:41; Admin Dose 12.5 MG; Start 08/13/16 at 21:00 Pregabalin (Lyrica) 50 mg TID PO Last administered on 08/15/16 20:40; Admin Dose 50 MG; Start 08/13/16 at 21:00 Pyridoxine HCl (Vitamin B6) 100 mg DAILY PO Last administered on 08/15/16 08: 50; Admin Dose 100 MG; Start 08/14/16 at 09:00 Simethicone (Mylicon) 80 mg Q6H PRN PO INTESTINAL SPASMS/CRAMPING; Start 08/13 at 17:30 Vitamin E (Vitamin E) 400 units DAILY PO Last administered on 08/15/16at 08:51 ; Admin Dose 400 UNITS; Start 08/14/16 at 09:00 Fluoxetine HCl (Prozac) 20 mg DAILY PO Last administered on 08/15/16at 08:50; Admin Dose 20 MG; Start 08/14/16 at 09:00 Fish Oil 1000 mg 1,000 mg TID PO Last administered on 08/15/16at 20:40; Admin Dose 1,000 MG; Start 08/13/16 at 21:00 Piperacillin Sod/ Tazobactam Sod (Zosyn 2.25gm/ 50ml (Pmx)) 50 ml @ 100 mls/hr Q8 IVPB Last administered on 08/16/16at 05:32; Admin Dose 100 MLS/HR; Start at 22:00 Miscellaneous Information 1 ea NOTE XX ; Start 08/13/16 at 18:00 Glucose (Glutose) 15 gm Q15M PRN PO DECREASED GLUCOSE; Start 08/13/16 at 18:00 Glucose (Glutose) 22.5 gm Q15M PRN PO DECREASED GLUCOSE; Start 08/13/16 at 18: 00 Dextrose (D50w Syringe) 25 ml Q15M PRN IV DECREASED GLUCOSE; Start 08/13/16 at 18:00 Dextrose (D50w Syringe) 50 ml Q15M PRN IV DECREASED GLUCOSE; Start 08/13/16 at 18:00 Glucagon (Glucagen) 1 mg Q15M PRN IM DECREASED GLUCOSE; Start 08/13/16 at 18: 00 Glucose 15 gm 15 gm Q15M PRN BUCCAL DECREASED GLUCOSE; Start 08/13/16 at 18:00 Vancomycin HCl/ Sodium Chloride (Vancocin/NS) 500 ml @ 125 mls/hr Q48H IVPB Last administered on 08/15/16at 15:36; Admin Dose 125 MLS/HR; Start 08/15/16 at 16:00 Sodium Hypochlorite (Dakin'S (1/4 Strength)) 1 applic DAILY IRR Last administered on 08/15/16at 08:51; Admin Dose 1 APPLIC; Start 08/13/16 at 20:00 Acetaminophen/ Hydrocodone Bitart (Gail (5/325)) 2 tab Q6H PRN PO MODERATE PAIN LEVEL 4-6 Last administered on 08/14/16at 13:03; Admin Dose 2 TAB; Start 08/14/16 at 13:00 IV Flush (NS 10 ml) 10 ml PRN PRN IV IV PTOTOCOL; Start 08/14/16 at 17:00 Bumetanide 1 mg 1 mg 06,14 PO Last administered on 08/15/16at 13:39; Admin Dose 1 MG; Start 08/15/16 at 06:00 Sodium Chloride (NS) 1,000 ml @ 70 mls/hr [id number] IV Last administered on 08/16at 02:47; Admin Dose 70 MLS/HR; Start 08/16/16 at 03:00 Procedures Procedures CXR IMPRESSION: Cardiomegaly . Stable central pulmonary vascular congestion and interstitial prominence in both lungs. Stable patchy perihilar infiltrates throughout the right lung combined with small pleural effusion. Stable patchy perihilar left lower lobe infiltrates. KELLEN MEDINA MD Aug 16, 2016 09:37
[2016-08-16] MEDS ORDERED: ACETYLCYSTEINE 600 MG CAP PO ONE (10:30)
[2016-08-16] MEDS ORDERED: SOD CHLORIDE 0.45% 1,000 ML IV SCH (12:23)
[2016-08-16] MEDS ORDERED: ONDANSETRON 4 MG INJ IV PRN (12:30)
[2016-08-16] MEDS ORDERED: HEPARIN 1000 UNITS/NS (A-LINE) 1,000 ML ONE (12:36)
[2016-08-16] MEDS ORDERED: SOD CHLORIDE 0.9% 500 ML ONE (12:36)
[2016-08-16] MEDS ORDERED: LIDOCAINE 1% (MDV) 20 ML INJ ONE (12:36)
[2016-08-16] MEDS: FISH OIL 1,000 MG CAP PO SCH ×4 (13:00→21:56)
[2016-08-16] MEDS: LACTOBACILLUS CHEW TAB PO SCH ×3 (13:00→21:56)
[2016-08-16] MEDS: PREGABALIN 25 MG CAP PO SCH ×3 (13:00→21:57)
[2016-08-16] MEDS ORDERED: PIPER-TAZO 3.375 GM IV (PMX) 100 ML IVPB SCH (14:00)
--- NOTE | 2016-08-16 14:36 | CONS ---
Date/Time of Note Date/Time of Note DATE: 08/16/16 TIME: 14:33 Assessment/Plan Assessment/Plan Additional Assessment/Plan 60 yo Male with 1) LORNA on CKD, Pre-Renal in the setting of diuretic Rx 2) Left toe cellulits R/o OM 3) HTN, Chronic 4) Diastolic Heart Failure, Chronic 5) Pulm HTN 6) Anema, Chroinc 7) RLL Patchy Consolidation R/o PNA Will order NAC Rx as patient is planned for Contrast study this am. Pt is receiving IVFs at this time, Cont IVFs. Please hold diuretic Rx today, Will resume in am. Will cont to monitor renal function, UO and electrolytes, Especially after Contrast study and Risk of DWAIN Consultation Date/Type/Reason Admit Date/Time Aug 13, 2016 at 16:30 Initial Consult Date 08/13/16 Type of Consultation: Nephrology Reason for Consultation LORNA Referring Provider: KELLEN MEDINA MD 24 HR Interval Summary Free Text/Dictation No new complaints, Planned for possible Angiogram by Vascular Sx later today Exam/Review of Systems Vital Signs Vitals Vital Signs Date Time Temp Pulse Resp B/P Pulse Ox O2 Delivery O2 Flow Rate FiO2 08/16/16 08:00 97.4 77 20 143/87 93 Nasal Cannula 5.0 08/16/16 01:16 40 Intake and Output 08/15/16 08/15/16 08/16/16 15:00 23:00 07:00 Intake Total 50 ml 1360 ml 880 ml Output Total 1150 ml 900 ml Balance 50 ml 210 ml -20 ml Exam Constitutional: alert, No distress ENMT: mucosa pink and moist Respiratory: No labored breathing Cardiovascular: edema Gastrointestinal: distended, soft, No rebound or guarding 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: 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, nl mental status, No lethargic Skin: No diaphoresis Results Result Diagram: 08/16/16 0525 08/16/16 0525 Results 24 hrs Laboratory Tests Test 08/15/16 17:18 08/15/16 20:04 08/16/16 05:25 08/16/16 07:39 Bedside Glucose 176 218 105 Anion Gap 12 Basophils # 0.0 Basophils % 0.4 Blood Morphology Comment Blood Urea Nitrogen 59 H Calcium Level 7.9 L Carbon Dioxide Level 32 H Chloride Level 97 Creatinine 1.36 H Eosinophils # 0.7 H Eosinophils % 8.6 H Glucose Level 97 Hematocrit 30.0 L Hemoglobin 9.6 L Lymphocytes # 0.8 Lymphocytes % 9.7 L Mean Corpuscular Hemoglobin 24.7 L Mean Corpuscular Hemoglobin Concent 32.0 Mean Corpuscular Volume 77.2 L Mean Platelet Volume 8.3 Monocytes # 0.9 Monocytes % 11.2 H Neutrophils # 5.7 Neutrophils % 70.1 Nucleated Red Blood Cells # 0.0 Nucleated Red Blood Cells % 0.0 Platelet Count 279 Potassium Level 4.1 Red Blood Count 3.88 L Red Cell Distribution Width 21.4 H Sodium Level 137 White Blood Count 8.2 Test 08/16/16 12:59 Bedside Glucose 114 Medications Medications Current Medications Ondansetron HCl (Zofran Inj) 4 mg Q6H PRN IV NAUSEA AND/OR VOMITING; Start at 17:30 Acetaminophen (Tylenol Tab) 650 mg Q6H PRN PO PAIN LEVEL 1-3 OR FEVER; Start 08/13/16 at 17:30 Acetaminophen/ Hydrocodone Bitart (Brighton (5/325)) 1 tab Q6H PRN PO MODERATE PAIN LEVEL 4-6; Start 08/13/16 at 17:30 Morphine Sulfate (morphine) 2 mg Q4H PRN IV SEVERE PAIN LEVEL 7-10 Last administered on 08/13/16at 17:58; Admin Dose 2 MG; Start 08/13/16 at 17:30 Docusate Sodium (Colace) 100 mg Q12H PRN PO CONSTIPATION; Start 08/13/16 at 17 :30 Famotidine (Pepcid) 20 mg Q12 PO Last administered on 08/15/16at 20:40; Admin Dose 20 MG; Start 08/13/16 at 21:00 Heparin Sodium (Porcine) (Heparin (5000 Units/0.5 ml)) 5,000 unit Q12 SC Last administered on 08/15/16at 20:43; Admin Dose 5,000 UNIT; Start 08/13/16 at 21: 00 Allopurinol (Zyloprim) 100 mg DAILY PO Last administered on 08/15/16at 08:50; Admin Dose 100 MG; Start 08/14/16 at 09:00 Ascorbic Acid (Vitamin C) 500 mg DAILY PO Last administered on 08/15/16at 08:50 ; Admin Dose 500 MG; Start 08/13/16 at 18:00 Aspirin (Halfprin) 81 mg DAILY PO Last administered on 08/15/16 08:50; Admin Dose 81 MG; Start 08/14/16 at 09:00 Atorvastatin Calcium (Lipitor) 10 mg QHS PO Last administered on 08/15/16 20: 40; Admin Dose 10 MG; Start 08/13/16 at 21:00 Cholecalciferol (Vitamin D) 1,000 unit DAILY PO Last administered on 08:50; Admin Dose 1,000 UNIT; Start 08/14/16 at 09:00 Ferrous Sulfate (Ferrous Sulfate (Ec)) 325 mg BID PO Last administered on 08/15 20:40; Admin Dose 325 MG; Start 08/13/16 at 21:00 Fish Oil (Fish Oil) 1,000 mg DAILY PO Last administered on 08/15/16 08:50; Admin Dose 1,000 MG; Start 08/14/16 at 09:00 Insulin Glargine (Lantus) 12 unit QHS SC Last administered on 08/15/16 20:44 ; Admin Dose 12 UNIT; Start 08/13/16 at 21:00 Lactobacillus Acidoph/Bulgaricus (Floranex) 1 tab TID PO Last administered on 08/15/16 20:40; Admin Dose 1 TAB; Start 08/13/16 at 21:00 Lorazepam (Ativan) 0.5 mg Q6 PRN PO ANXIETY; Start 08/13/16 at 17:30 Metoprolol Tartrate (Lopressor) 12.5 mg BID PO Last administered on 08/15/16 20:41; Admin Dose 12.5 MG; Start 08/13/16 at 21:00 Pregabalin (Lyrica) 50 mg TID PO Last administered on 08/15/16 20:40; Admin Dose 50 MG; Start 08/13/16 at 21:00 Pyridoxine HCl (Vitamin B6) 100 mg DAILY PO Last administered on 08/15/16 08: 50; Admin Dose 100 MG; Start 08/14/16 at 09:00 Simethicone (Mylicon) 80 mg Q6H PRN PO INTESTINAL SPASMS/CRAMPING; Start 08/13 at 17:30 Vitamin E (Vitamin E) 400 units DAILY PO Last administered on 08/15/16 08:51 ; Admin Dose 400 UNITS; Start 08/14/16 at 09:00 Fluoxetine HCl (Prozac) 20 mg DAILY PO Last administered on 08/15/16 08:50; Admin Dose 20 MG; Start 08/14/16 at 09:00 Fish Oil (Fish Oil) 1,000 mg TID PO Last administered on 08/15/16 20:40; Admin Dose 1,000 MG; Start 08/13/16 at 21:00 Miscellaneous Information 1 ea NOTE XX ; Start 08/13/16 at 18:00 Glucose (Glutose) 15 gm Q15M PRN PO DECREASED GLUCOSE; Start 08/13/16 at 18:00 Glucose (Glutose) 22.5 gm Q15M PRN PO DECREASED GLUCOSE; Start 08/13/16 at 18: 00 Dextrose (D50w Syringe) 25 ml Q15M PRN IV DECREASED GLUCOSE; Start 08/13/16 at 18:00 Dextrose (D50w Syringe) 50 ml Q15M PRN IV DECREASED GLUCOSE; Start 08/13/16 at 18:00 Glucagon (Glucagen) 1 mg Q15M PRN IM DECREASED GLUCOSE; Start 08/13/16 at 18: 00 Glucose 15 gm 15 gm Q15M PRN BUCCAL DECREASED GLUCOSE; Start 08/13/16 at 18:00 Vancomycin HCl/ Sodium Chloride (Vancocin/NS) 500 ml @ 125 mls/hr Q48H IVPB Last administered on 08/15/16at 15:36; Admin Dose 125 MLS/HR; Start 08/15/16 at 16:00 Sodium Hypochlorite (Dakin'S (1/4 Strength)) 1 applic DAILY IRR Last administered on 08/15/16at 08:51; Admin Dose 1 APPLIC; Start 08/13/16 at 20:00 Acetaminophen/ Hydrocodone Bitart (Brighton (5/325)) 2 tab Q6H PRN PO MODERATE PAIN LEVEL 4-6 Last administered on 08/14/16 13:03; Admin Dose 2 TAB; Start 08/14/16 at 13:00 IV Flush (NS 10 ml) 10 ml PRN PRN IV IV PTOTOCOL; Start 08/14/16 at 17:00 Bumetanide 1 mg 1 mg 06,14 PO Last administered on 08/15/16at 13:39; Admin Dose 1 MG; Start 08/15/16 at 06:00 Sodium Chloride 1,000 ml @ 70 mls/hr [id number] IV Last administered on at 02:47; Admin Dose 70 MLS/HR; Start 08/16/16 at 03:00 Piperacillin Sod/ Tazobactam Sod (Zosyn 3.375gm/ 100 ml (Pmx)) 100 ml @ 200 mls /hr Q8 IVPB ; Start 08/16/16 at 14:00 Miscellaneous Information (*Rx Drug Level Order Reminder*) VANCOMYCIN TROUGH AT 1500 ONCE ONCE XX ; Start 08/17/16 at 15:00; Stop 08/17/16 at 15:01 Acetylcysteine (Nac) 600 mg BID PO ; Start 08/16/16 at 21:00 Ondansetron HCl 4 mg 4 mg Q4H PRN IV NAUSEA AND/OR VOMITING; Start 08/16/16 at 12:30 Sodium Chloride (1/2 NS) 1,000 ml @ 75 mls/hr [id number] IV ; Start 08/16/16 at 12 :23; Stop 08/17/16 at 01:42 DYAN FRANKLIN MD Aug 16, 2016 14:36
--- NOTE | 2016-08-16 14:36 | OPR ---
DATE OF OPERATION: 08/16/2016 SURGEON: Jose Angel Taylor M.D. ____: Dr. Rell Lucas PREOPERATIVE DIAGNOSIS: Left lower extremity gangrene and right lower extremity disabling claudicat ion. POSTOPERATIVE DIAGNOSIS: Left lower extremity gangrene and right lower extremity disabling claudica tion. ANESTHESIA: Local with sedation. ESTIMATED BLOOD LOSS: Minimal. COMPLICATIONS: None. HEPARIN: None. CONTRAST: 20 mL. ACCESS: Right common femoral artery 5-Uzbek sheath. CLOSURE: Manual compression Angioseal closure device. INDICATIONS: This is a 60-year-old noncompliant morbidly obese gentleman who had presented with keri ateral lower extremity diabetic foot infection, tissue loss and diminished bilateral pedal pulses. Preoperative duplex evaluation was consistent with atherosclerotic disease. The patient had been in formed about the risks and benefits of angiogram, balloon angioplasty, stenting and atherectomy. Ri sks including but not limited to bleeding, thrombosis, embolization, myocardial infarction, , s troke, device malfunction, infection, nephrotoxicity and has agreed to proceed. This is the first diagnostic angiogram in this clinical setting. PROCEDURE: 1. Ultrasound-guided access of the right common femoral artery. 2. Aortoiliac CO2 angiogram with use of the iliac arteries. 3. Third order selection of the left superficial femoral artery. 4. Left lower extremity angiogram. 5. Right lower extremity angiogram. FINDINGS: 1. Bilateral renal arteries are patent with mild disease. 2. Bilateral common iliac, external iliac, and internal iliac arteries are patent and tortuous. 3. Left common femoral artery is patent. 4. Left superficial femoral artery is patent. 5. Left profunda femoral artery is patent. 6. Left above knee popliteal artery is patent. 7. Left at knee popliteal artery is patent. 8. Left below knee popliteal artery is patent. 9. Left anterior tibial artery is patent to the ankle. 10. Left tibioperoneal trunk is patent. 11. Left posterior tibial artery is patent to the common plantar artery. 12. Left peroneal artery is patent to the ankle; however, distally, the anterior communicating bran ches are not well visualized. 13. The left common plantar artery is patent with moderate to severe disease in its distal most asp ect. 14. Lateral and medial plantar arteries are severely diseased and not well visualized. 15. Left dorsalis pedis artery is patent proximally and occludes distally. 16. There is a tarsal branch that comes off the dorsalis pedis artery that is patent and has flow t o the dorsal arch and digital arteries. 17. Right common femoral artery is patent. 18. Right profunda femoral artery is patent. 19. Right superficial femoral artery is patent. 20. Right above-knee popliteal artery is patent. 21. Right at knee popliteal artery is patent. 22. Right below-knee popliteal artery is patent. 23. Right anterior tibial is patent. 24. Right tibioperoneal trunk is patent. 25. Right posterior tibial artery is patent. 26. Right peroneal artery is occluded, not visualized. 27. Right common plantar artery is patent. 28. Right plantar arteries extend to the metatarsal region where it becomes moderate to severely di seased. The right dorsalis pedis artery is patent and branches to a tarsal artery and there is a br anch that extends to the dorsal arch and digital arteries with severe disease. DESCRIPTION OF PROCEDURE: The patient was brought into the angio suite and positioned in supine pos ition on the fluoroscopic table. Sedation was administered without complications. Bilateral groins were shaved and prepped and draped in usual standard sterile fashion. Time-out and appropriate sit e was marked and confirmed. Local anesthesia was infiltrated in the region of the right common femo ral artery. The artery was encountered with a micro access needle under ultrasound guidance and the guidewire wa s advanced into the common iliac artery under fluoroscopic guidance. The needle was then removed a nd a microcatheter was placed. A GetJar wire was then passed into the aorta in the infrarenal radha on under fluoroscopic guidance followed by a 5-Uzbek sheath over the wire. The sheath was then skyla ropriately flushed with heparinized saline solution. An Omni flush catheter was then passed into t he suprarenal aorta and a CO2 aortogram was obtained with imaging of the iliac arteries. Findings a re noted above. At this point, using a Glidewire, we were able to select in a third order fashion t he left superficial femoral artery. Left leg angiogram was then performed. The findings are noted above. No intervention was decided to the left lower extremity at this time. Omni flush catheter w as then removed and a right leg angiogram was performed and the above findings are noted. At this p oint, the sheath was removed and an AngioSeal closure device was deployed in the right groin. Press ure was held. The patient was taken to the recovery unit in fair condition. PLAN: Essentially the patient has severe pedal disease bilaterally in which the foot has inline fl ow to it. However, the disease in his foot would not be amenable for any vascular intervention. Wi ll continue to monitor the patient with adequate wound care and determine if the patient would be a candidate for hyperbarics. Dictated By: JOSE ANGEL STEVENS/GREGORY Conf#: [id number] DID#: [id number]
--- NOTE | 2016-08-16 14:49 | CONS ---
Date/Time of Note Date/Time of Note DATE: 08/16/16 TIME: 14:47 Consult Date/Type/Reason Admit Date/Time Aug 13, 2016 at 16:30 Initial Consult Date 08/13/16 Type of Consultation: ID Ordering Provider: KELLEN MEDINA MD Subjective no acute events, looks comfortable, no fevers, nad Objective Vital Signs Date Time Temp Pulse Resp B/P Pulse Ox O2 Delivery O2 Flow Rate FiO2 08/16/16 08:00 97.4 77 20 143/87 93 Nasal Cannula 5.0 08/16/16 01:16 40 Intake and Output 08/15/16 08/15/16 08/16/16 15:00 23:00 07:00 Intake Total 50 ml 1360 ml 880 ml Output Total 1150 ml 900 ml Balance 50 ml 210 ml -20 ml Results/Medications Result Diagram: 08/16/16 0525 08/16/16 0525 Results 24 hrs Laboratory Tests Test 08/15/16 17:18 08/15/16 20:04 08/16/16 05:25 08/16/16 07:39 Bedside Glucose 176 218 105 Anion Gap 12 Basophils # 0.0 Basophils % 0.4 Blood Morphology Comment Blood Urea Nitrogen 59 H Calcium Level 7.9 L Carbon Dioxide Level 32 H Chloride Level 97 Creatinine 1.36 H Eosinophils # 0.7 H Eosinophils % 8.6 H Glucose Level 97 Hematocrit 30.0 L Hemoglobin 9.6 L Lymphocytes # 0.8 Lymphocytes % 9.7 L Mean Corpuscular Hemoglobin 24.7 L Mean Corpuscular Hemoglobin Concent 32.0 Mean Corpuscular Volume 77.2 L Mean Platelet Volume 8.3 Monocytes # 0.9 Monocytes % 11.2 H Neutrophils # 5.7 Neutrophils % 70.1 Nucleated Red Blood Cells # 0.0 Nucleated Red Blood Cells % 0.0 Platelet Count 279 Potassium Level 4.1 Red Blood Count 3.88 L Red Cell Distribution Width 21.4 H Sodium Level 137 White Blood Count 8.2 Test 08/16/16 12:59 Bedside Glucose 114 Medications Current Medications Ondansetron HCl (Zofran Inj) 4 mg Q6H PRN IV NAUSEA AND/OR VOMITING; Start at 17:30 Acetaminophen (Tylenol Tab) 650 mg Q6H PRN PO PAIN LEVEL 1-3 OR FEVER; Start 08/13/16 at 17:30 Acetaminophen/ Hydrocodone Bitart ([place] (5/325)) 1 tab Q6H PRN PO MODERATE PAIN LEVEL 4-6; Start 08/13/16 at 17:30 Morphine Sulfate (morphine) 2 mg Q4H PRN IV SEVERE PAIN LEVEL 7-10 Last administered on 08/13/16at 17:58; Admin Dose 2 MG; Start 08/13/16 at 17:30 Docusate Sodium (Colace) 100 mg Q12H PRN PO CONSTIPATION; Start 08/13/16 at 17 :30 Famotidine (Pepcid) 20 mg Q12 PO Last administered on 08/15/16 20:40; Admin Dose 20 MG; Start 08/13/16 at 21:00 Heparin Sodium (Porcine) (Heparin (5000 Units/0.5 ml)) 5,000 unit Q12 SC Last administered on 08/15/16 20:43; Admin Dose 5,000 UNIT; Start 08/13/16 at 21: 00 Allopurinol (Zyloprim) 100 mg DAILY PO Last administered on 08/15/16 08:50; Admin Dose 100 MG; Start 08/14/16 at 09:00 Ascorbic Acid (Vitamin C) 500 mg DAILY PO Last administered on 08/15/16 08:50 ; Admin Dose 500 MG; Start 08/13/16 at 18:00 Aspirin (Halfprin) 81 mg DAILY PO Last administered on 08/15/16 08:50; Admin Dose 81 MG; Start 08/14/16 at 09:00 Atorvastatin Calcium (Lipitor) 10 mg QHS PO Last administered on 08/15/16 20: 40; Admin Dose 10 MG; Start 08/13/16 at 21:00 Cholecalciferol (Vitamin D) 1,000 unit DAILY PO Last administered on 08:50; Admin Dose 1,000 UNIT; Start 08/14/16 at 09:00 Ferrous Sulfate (Ferrous Sulfate (Ec)) 325 mg BID PO Last administered on 08/15 20:40; Admin Dose 325 MG; Start 08/13/16 at 21:00 Fish Oil (Fish Oil) 1,000 mg DAILY PO Last administered on 08/15/16 08:50; Admin Dose 1,000 MG; Start 08/14/16 at 09:00 Insulin Glargine (Lantus) 12 unit QHS SC Last administered on 08/15/16 20:44 ; Admin Dose 12 UNIT; Start 08/13/16 at 21:00 Lactobacillus Acidoph/Bulgaricus (Floranex) 1 tab TID PO Last administered on 08/15/16at 20:40; Admin Dose 1 TAB; Start 08/13/16 at 21:00 Lorazepam (Ativan) 0.5 mg Q6 PRN PO ANXIETY; Start 08/13/16 at 17:30 Metoprolol Tartrate (Lopressor) 12.5 mg BID PO Last administered on 08/15/16 20:41; Admin Dose 12.5 MG; Start 08/13/16 at 21:00 Pregabalin (Lyrica) 50 mg TID PO Last administered on 08/15/16 20:40; Admin Dose 50 MG; Start 08/13/16 at 21:00 Pyridoxine HCl (Vitamin B6) 100 mg DAILY PO Last administered on 08/15/16 08: 50; Admin Dose 100 MG; Start 08/14/16 at 09:00 Simethicone (Mylicon) 80 mg Q6H PRN PO INTESTINAL SPASMS/CRAMPING; Start 08/13 at 17:30 Vitamin E (Vitamin E) 400 units DAILY PO Last administered on 08/15/16 08:51 ; Admin Dose 400 UNITS; Start 08/14/16 at 09:00 Fluoxetine HCl (Prozac) 20 mg DAILY PO Last administered on 08/15/16 08:50; Admin Dose 20 MG; Start 08/14/16 at 09:00 Fish Oil (Fish Oil) 1,000 mg TID PO Last administered on 08/15/16at 20:40; Admin Dose 1,000 MG; Start 08/13/16 at 21:00 Miscellaneous Information 1 ea NOTE XX ; Start 08/13/16 at 18:00 Glucose (Glutose) 15 gm Q15M PRN PO DECREASED GLUCOSE; Start 08/13/16 at 18:00 Glucose (Glutose) 22.5 gm Q15M PRN PO DECREASED GLUCOSE; Start 08/13/16 at 18: 00 Dextrose (D50w Syringe) 25 ml Q15M PRN IV DECREASED GLUCOSE; Start 08/13/16 at 18:00 Dextrose (D50w Syringe) 50 ml Q15M PRN IV DECREASED GLUCOSE; Start 08/13/16 at 18:00 Glucagon (Glucagen) 1 mg Q15M PRN IM DECREASED GLUCOSE; Start 08/13/16 at 18: 00 Glucose 15 gm 15 gm Q15M PRN BUCCAL DECREASED GLUCOSE; Start 08/13/16 at 18:00 Vancomycin HCl/ Sodium Chloride (Vancocin/NS) 500 ml @ 125 mls/hr Q48H IVPB Last administered on 08/15/16at 15:36; Admin Dose 125 MLS/HR; Start 08/15/16 at 16:00 Sodium Hypochlorite (Dakin'S (1/4 Strength)) 1 applic DAILY IRR Last administered on 08/15/16at 08:51; Admin Dose 1 APPLIC; Start 08/13/16 at 20:00 Acetaminophen/ Hydrocodone Bitart ([place] (5/325)) 2 tab Q6H PRN PO MODERATE PAIN LEVEL 4-6 Last administered on 08/14/16at 13:03; Admin Dose 2 TAB; Start 08/14/16 at 13:00 IV Flush (NS 10 ml) 10 ml PRN PRN IV IV PTOTOCOL; Start 08/14/16 at 17:00 Bumetanide 1 mg 1 mg 06,14 PO Last administered on 08/15/16at 13:39; Admin Dose 1 MG; Start 08/15/16 at 06:00 Sodium Chloride 1,000 ml @ 70 mls/hr [id number] IV Last administered on at 02:47; Admin Dose 70 MLS/HR; Start 08/16/16 at 03:00 Piperacillin Sod/ Tazobactam Sod (Zosyn 3.375gm/ 100 ml (Pmx)) 100 ml @ 200 mls /hr Q8 IVPB ; Start 08/16/16 at 14:00 Miscellaneous Information (*Rx Drug Level Order Reminder*) VANCOMYCIN TROUGH 12 AT 1500 ONCE ONCE XX ; Start 08/17/16 at 15:00; Stop 08/17/16 at 15:01 Acetylcysteine (Nac) 600 mg BID PO ; Start 08/16/16 at 21:00 Ondansetron HCl 4 mg 4 mg Q4H PRN IV NAUSEA AND/OR VOMITING; Start 08/16/16 at 12:30 Sodium Chloride (1/2 NS) 1,000 ml @ 75 mls/hr [id number] IV ; Start 08/16/16 at 12 :23; Stop 08/17/16 at 01:42 Assessment/Plan Chief Complaint/Hosp Course MICROBIOLOGY: Bld cx+ [facility]NA[facility] DIAGNOSTICS: MRI revealed cellulitis and osteomyelitis of the left first toe. ANTIMICROBIALS: Vancomycin and Zosyn. Urinalysis on admission was negative. PHYSICAL EXAMINATION: GENERAL: Obese, well-developed, middle-aged white man who is sitting at the edge of the bed. Patient is in no distress. HEENT: Head atraumatic, normocephalic. Sclerae anicteric. Buccal mucosa dry. NECK: Supple, trachea midline. CHEST: Rise symmetrical. Breath sounds clear, diminished to bases. HEART: S1, S2. ABDOMEN: Soft, bowel tones present. EXTREMITIES: Bilateral Patrick wraps. ASSESSMENT: 1. Bilateral lower extremities acute on chronic cellulitis with chronic venous stasis and left toe osteomyelitis. 2. Systemic inflammatory response syndrome 2 to above. 3. Septicemia==>KENAN 4. Questionable pneumonia as per chest x-ray. 5. Morbid obesity. 6. Atrial fibrillation, chronic. 7. Chronic kidney disease. 8. PAD PLAN: Clinically stable. Will repeat bld cx, change Zosyn to Rocephin, continue Vanco, f/u podiatry/vascular rec-s, card/renal rec-s DW staff Problems: JAMEY VAZQUEZ NP Aug 16, 2016 14:49
[2016-08-16] MEDS ORDERED: CEFTRIAXONE 2 GM/50 ML (PMX) 50 ML IVPB SCH (15:00)
[2016-08-16] MEDS: CHOLECALCIFEROL 1,000 UNIT TAB PO SCH (15:26)
[2016-08-16] MEDS: PYRIDOXINE 50 MG TAB PO SCH (15:26)
[2016-08-16] MEDS: VITAMIN E 400 UNITS CAP PO SCH (15:26)
[2016-08-16] MEDS: ASPIRIN (EC) 81 MG TAB PO SCH (15:27)
[2016-08-16] MEDS: ASCORBIC ACID 500 MG TAB PO SCH (15:27)
[2016-08-16] MEDS: FLUOXETINE 20 MG CAP PO SCH (15:27)
[2016-08-16] MEDS: ALLOPURINOL 100 MG TAB PO SCH (15:27)
[2016-08-16] MEDS: METOPROLOL 25 MG TAB PO SCH ×2 (15:27→21:56)
[2016-08-16 20:00] VITALS: BP 154/63; PULSE 89; RESP 18
[2016-08-16] MEDS: INSULIN GLARGINE [LANtus] 3 ML PEN SC SCH (21:54)
[2016-08-16] MEDS: ATORVASTATIN 10 MG TAB PO SCH (21:56)
[2016-08-16] MEDS: ZOLPIDEM 5 MG TAB PO PRN (21:57)
[2016-08-16] MEDS: ACETYLCYSTEINE 600 MG CAP PO SCH (21:57)
[2016-08-16] MEDS: ALBUTEROL/IPRATROPIUM (NEB) 3 ML AMP HHN PRN (22:21)
[2016-08-16 22:41] VITALS: PULSE 82
[2016-08-17] MEDS: BUMETANIDE 1 MG TAB PO SCH ×2 (06:27→13:38)
[2016-08-17 07:03] LABS: CREATININE 1.5 mg/dl (0.61-1.24)
[2016-08-17 08:00] VITALS: BP 138/81; PULSE 79; RESP 20
[2016-08-17] MEDS: ALLOPURINOL 100 MG TAB PO SCH (09:03)
[2016-08-17] MEDS: FERROUS SULFATE (EC) 325 MG TAB PO SCH ×2 (09:03→21:40)
[2016-08-17] MEDS: PYRIDOXINE 50 MG TAB PO SCH (09:03)
[2016-08-17] MEDS: SODIUM HYPOCHLORITE 0.125% 473 ML BTL IRR SCH (09:03)
[2016-08-17] MEDS: FISH OIL 1,000 MG CAP PO SCH (09:04)
[2016-08-17] MEDS: ACETYLCYSTEINE 600 MG CAP PO SCH ×2 (09:05→21:41)
[2016-08-17] MEDS: ASPIRIN (EC) 81 MG TAB PO SCH (09:05)
[2016-08-17] MEDS: CHOLECALCIFEROL 1,000 UNIT TAB PO SCH (09:05)
[2016-08-17] MEDS: LACTOBACILLUS CHEW TAB PO SCH ×3 (09:05→21:40)
[2016-08-17] MEDS: FAMOTIDINE 20 MG TAB PO SCH ×2 (09:05→21:41)
[2016-08-17] MEDS: METOPROLOL 25 MG TAB PO SCH ×2 (09:06→21:41)
[2016-08-17] MEDS: VITAMIN E 400 UNITS CAP PO SCH (09:06)
[2016-08-17] MEDS: ASCORBIC ACID 500 MG TAB PO SCH (09:06)
[2016-08-17] MEDS: FLUOXETINE 20 MG CAP PO SCH (09:06)
[2016-08-17] MEDS: INSULIN ASPART [NOVOLOG] 3 ML PEN SC SCH ×4 (09:10→21:44)
[2016-08-17] MEDS: HEPARIN 5,000 UNIT/0.5 ML SYG SC SCH ×2 (09:11→21:43)
[2016-08-17] MEDS: PREGABALIN 25 MG CAP PO SCH ×3 (09:19→21:41)
--- NOTE | 2016-08-17 09:27 | PN ---
Date/Time of Note Date/Time of Note DATE: 08/17/16 TIME: 09:23 Assessment/Plan VTE Prophylaxis VTE Prophylaxis Intervention: heparin Lines/Catheters IV Catheter Type (from Nrsg): PICC Line Central line still needed: Yes Urinary Cath still in place: No Assessment/Plan Assessment/Plan 60 yo male with a past medical history of type II DM, previous osteomyelitis, essential hypertension, atrial fibrillation, CHF with diastolic dysfunction, gout, morbid obesity, peripheral vascular disease, depression, CKD and chronic respiratory failure who came in for worsening left greater toe swelling and redness. 1. Left greater toe - osteomyelitis/cellulitis - PICC line for nursing home antibiotics, f/u podiatry recs - IV antibiotics 6 weeks - angiogram completed - no intervention as per vascular 2. Leukocytosis - 2/2 #1, monitor acute changes - improved 3. Respiratory failure - continue with supplemental O2, ABG worsening PCo2 - steroids and intermittent BiPAP 4. Acute on Chronic Kidney Disease - avoid nephrotoxins, renally adjust medications - 2/2 to ATN - appreciate nephro recs 5. CHF diastolic dysfunction - stable continue with lasix, aspirin 6. Type II DM - recent hgba1c is 5.8, carb controlled/renal/cardiac diet, ISS 7. Essential hypertension - c/w BB, hold ACEI/ARB 2/2 to renal dysfunction, hydralazine prn for SBP > 160 8. Atrial Fibrillation - rate controlled - continue with heparin 9. Dyslipidemia - continue with statin 10. Gout - continue with allopurinol 11. Depression - continue SSRI 12. Morbid obesity - needs dietary consult 13. Anemia - acute on chronic - check iron profile, occult blood - transfuse if hgb < 8 g/dL 14. GI ppx - pepcid 15. DVT ppx - heparin dispo - f/u recs, PICC line insertion, monitor acute changes, once the patient has decreased O2 demand to baseline, then consider discharge this progress note took greater than 30 minutes to complete Subjective 24 Hr Interval Summary Free Text/Dictation He had no overnight events. O2 demand has decreased as per nursing. Spoke to the nurse about the care plan. 15 minutes spent. Exam/Review of Systems Vital Signs Vitals Vital Signs Date Time Temp Pulse Resp B/P Pulse Ox O2 Delivery O2 Flow Rate FiO2 08/17/16 08:00 97.9 79 20 138/81 96 Room Air 5.0 08/16/16 22:41 40 Intake and Output 08/16/16 08/16/16 08/17/16 15:00 23:00 07:00 Intake Total 420 ml 720 ml 1040 ml Output Total 700 ml 600 ml Balance 420 ml 20 ml 440 ml Exam Gen [place]: mild respiratory distress, AAOx4, morbidly obese male HEENT: NC/AT, PERRLA, EOMI, no pharyngeal erythema, no tonsillar exudates, no lymphadenopathy, no JVD, no carotid bruits NECK: supple, no thyromegaly THORAX: symmetrical, no obvious deformities CV: S1S2, RRR, II/ systolic murmur best heard over the apex Lungs: diminished breath sounds to the bases bilaterally, no wheezing - improving Abd: soft, NT/ND, +BS, no rebound, no guarding, neg HSM, protuberant EXT: 2+ pitting edema, skin sloughing noted, left greater toe with surrounding erythema/edema, scattered petechiae upper extremities, easily bruisability, with adolfo wraps bilaterally Neuro: CN II-XII grossly intact, decreased proprioception bilateral lower extremities Psych: fair mood and affect Skin: see extremities Results Result Diagram: 08/16/16 0525 08/17/16 0544 Results 24 hrs Laboratory Tests Test 08/16/16 12:59 08/16/16 16:59 08/16/16 20:25 08/17/16 05:44 Bedside Glucose 114 170 239 H Blood Urea Nitrogen 57 H Creatinine 1.50 H Test 08/17/16 09:02 Bedside Glucose 174 Medications Medications Current Medications Ondansetron HCl (Zofran Inj) 4 mg Q6H PRN IV NAUSEA AND/OR VOMITING; Start at 17:30 Acetaminophen (Tylenol Tab) 650 mg Q6H PRN PO PAIN LEVEL 1-3 OR FEVER; Start 08/13/16 at 17:30 Acetaminophen/ Hydrocodone Bitart ([place] (5/325)) 1 tab Q6H PRN PO MODERATE PAIN LEVEL 4-6; Start 08/13/16 at 17:30 Morphine Sulfate (morphine) 2 mg Q4H PRN IV SEVERE PAIN LEVEL 7-10 Last administered on 08/13/16at 17:58; Admin Dose 2 MG; Start 08/13/16 at 17:30 Docusate Sodium (Colace) 100 mg Q12H PRN PO CONSTIPATION; Start 08/13/16 at 17 :30 Famotidine (Pepcid) 20 mg Q12 PO Last administered on 08/17/16 09:05; Admin Dose 20 MG; Start 08/13/16 at 21:00 Heparin Sodium (Porcine) (Heparin (5000 Units/0.5 ml)) 5,000 unit Q12 SC Last administered on 08/17/16 09:11; Admin Dose 5,000 UNIT; Start 08/13/16 at 21:00 Allopurinol (Zyloprim) 100 mg DAILY PO Last administered on 08/17/16 09:03; Admin Dose 100 MG; Start 08/14/16 at 09:00 Ascorbic Acid (Vitamin C) 500 mg DAILY PO Last administered on 08/17/16 09:06 ; Admin Dose 500 MG; Start 08/13/16 at 18:00 Aspirin (Halfprin) 81 mg DAILY PO Last administered on 08/17/16 09:05; Admin Dose 81 MG; Start 08/14/16 at 09:00 Atorvastatin Calcium (Lipitor) 10 mg QHS PO Last administered on 08/16/16 21: 56; Admin Dose 10 MG; Start 08/13/16 at 21:00 Cholecalciferol (Vitamin D) 1,000 unit DAILY PO Last administered on 08/17/16 09:05; Admin Dose 1,000 UNIT; Start 08/14/16 at 09:00 Ferrous Sulfate (Ferrous Sulfate (Ec)) 325 mg BID PO Last administered on 09:03; Admin Dose 325 MG; Start 08/13/16 at 21:00 Fish Oil (Fish Oil) 1,000 mg DAILY PO Last administered on 08/17/16 09:04; Admin Dose 1,000 MG; Start 08/14/16 at 09:00 Insulin Glargine (Lantus) 12 unit QHS SC Last administered on 08/16/16 21:54; Admin Dose 12 UNIT; Start 08/13/16 at 21:00 Lactobacillus Acidoph/Bulgaricus (Floranex) 1 tab TID PO Last administered on 08/17/16 09:05; Admin Dose 1 TAB; Start 08/13/16 at 21:00 Lorazepam (Ativan) 0.5 mg Q6 PRN PO ANXIETY; Start 08/13/16 at 17:30 Metoprolol Tartrate (Lopressor) 12.5 mg BID PO Last administered on 08/17/16at 09:06; Admin Dose 12.5 MG; Start 08/13/16 at 21:00 Pregabalin (Lyrica) 50 mg TID PO Last administered on 08/17/16at 09:19; Admin Dose 50 MG; Start 08/13/16 at 21:00 Pyridoxine HCl (Vitamin B6) 100 mg DAILY PO Last administered on 08/17/16at 09: 03; Admin Dose 100 MG; Start 08/14/16 at 09:00 Simethicone (Mylicon) 80 mg Q6H PRN PO INTESTINAL SPASMS/CRAMPING Last administered on 08/16/16at 15:27; Admin Dose 80 MG; Start 08/13/16 at 17:30 Vitamin E (Vitamin E) 400 units DAILY PO Last administered on 08/17/16at 09:06; Admin Dose 400 UNITS; Start 08/14/16 at 09:00 Fluoxetine HCl (Prozac) 20 mg DAILY PO Last administered on 08/17/16at 09:06; Admin Dose 20 MG; Start 08/14/16 at 09:00 Miscellaneous Information 1 ea NOTE XX ; Start 08/13/16 at 18:00 Glucose (Glutose) 15 gm Q15M PRN PO DECREASED GLUCOSE; Start 08/13/16 at 18:00 Glucose (Glutose) 22.5 gm Q15M PRN PO DECREASED GLUCOSE; Start 08/13/16 at 18: 00 Dextrose (D50w Syringe) 25 ml Q15M PRN IV DECREASED GLUCOSE; Start 08/13/16 at 18:00 Dextrose (D50w Syringe) 50 ml Q15M PRN IV DECREASED GLUCOSE; Start 08/13/16 at 18:00 Glucagon (Glucagen) 1 mg Q15M PRN IM DECREASED GLUCOSE; Start 08/13/16 at 18: 00 Glucose 15 gm 15 gm Q15M PRN BUCCAL DECREASED GLUCOSE; Start 08/13/16 at 18:00 Vancomycin HCl/ Sodium Chloride (Vancocin/NS) 500 ml @ 125 mls/hr Q48H IVPB Last administered on 08/15/16at 15:36; Admin Dose 125 MLS/HR; Start 08/15/16 at 16:00 Sodium Hypochlorite (Dakin'S (1/4 Strength)) 1 applic DAILY IRR Last administered on 08/17/16 09:03; Admin Dose 1 APPLIC; Start 08/13/16 at 20:00 Acetaminophen/ Hydrocodone Bitart ([place] (5/325)) 2 tab Q6H PRN PO MODERATE PAIN LEVEL 4-6 Last administered on 08/14/16 13:03; Admin Dose 2 TAB; Start 08/14/16 at 13:00 IV Flush (NS 10 ml) 10 ml PRN PRN IV IV PTOTOCOL; Start 08/14/16 at 17:00 Bumetanide (Bumex) 1 mg 06,14 PO Last administered on 08/17/16at 06:27; Admin Dose 1 MG; Start 08/15/16 at 06:00 Miscellaneous Information (*Rx Drug Level Order Reminder*) VANCOMYCIN TROUGH AT 1500 ONCE ONCE XX ; Start 08/17/16 at 15:00; Stop 08/17/16 at 15:01 Acetylcysteine (Nac) 600 mg BID PO Last administered on 08/17/16at 09:05; Admin Dose 600 MG; Start 08/16/16 at 21:00 Ondansetron HCl 4 mg 4 mg Q4H PRN IV NAUSEA AND/OR VOMITING; Start 08/16/16 at 12:30 Ceftriaxone Sodium (Rocephin) 50 ml @ 100 mls/hr Q24H IVPB Last administered on 08/16/16at 17:45; Admin Dose 100 MLS/HR; Start 08/16/16 at 15:00 Zolpidem Tartrate (Ambien) 10 mg HS PRN PO INSOMNIA Last administered on at 21:57; Admin Dose 10 MG; Start 08/16/16 at 21:00 KELLEN MEDINA MD Aug 17, 2016 09:27
[2016-08-17] MEDS: ALBUTEROL/IPRATROPIUM (NEB) 3 ML AMP HHN PRN ×2 (13:46→13:52)
--- NOTE | 2016-08-17 13:53 | CONS ---
Date/Time of Note Date/Time of Note DATE: 08/17/16 TIME: 13:51 Consult Date/Type/Reason Admit Date/Time Aug 13, 2016 at 16:30 Initial Consult Date 08/13/16 Type of Consultation: ID Ordering Provider: KELLEN MEDINA MD Subjective no acute changes, alert, feels good, no fevers Objective Vital Signs Date Time Temp Pulse Resp B/P Pulse Ox O2 Delivery O2 Flow Rate FiO2 08/17/16 08:00 97.9 79 20 138/81 96 Room Air 5.0 08/16/16 22:41 40 Intake and Output 08/16/16 08/16/16 08/17/16 14:59 22:59 06:59 Intake Total 420 ml 720 ml 1040 ml Output Total 700 ml 600 ml Balance 420 ml 20 ml 440 ml Results/Medications Result Diagram: 08/16/16 0525 08/17/16 0544 Results 24 hrs Laboratory Tests Test 08/16/16 16:59 08/16/16 20:25 08/17/16 05:44 08/17/16 09:02 Bedside Glucose 170 239 H 174 Blood Urea Nitrogen 57 H Creatinine 1.50 H Test 08/17/16 12:08 Bedside Glucose 156 Medications Current Medications Ondansetron HCl (Zofran Inj) 4 mg Q6H PRN IV NAUSEA AND/OR VOMITING; Start at 17:30 Acetaminophen (Tylenol Tab) 650 mg Q6H PRN PO PAIN LEVEL 1-3 OR FEVER; Start 08/13/16 at 17:30 Acetaminophen/ Hydrocodone Bitart ([place] (5/325)) 1 tab Q6H PRN PO MODERATE PAIN LEVEL 4-6; Start 08/13/16 at 17:30 Morphine Sulfate (morphine) 2 mg Q4H PRN IV SEVERE PAIN LEVEL 7-10 Last administered on 08/13/16at 17:58; Admin Dose 2 MG; Start 08/13/16 at 17:30 Docusate Sodium (Colace) 100 mg Q12H PRN PO CONSTIPATION; Start 08/13/16 at 17 :30 Famotidine (Pepcid) 20 mg Q12 PO Last administered on 08/17/16at 09:05; Admin Dose 20 MG; Start 08/13/16 at 21:00 Heparin Sodium (Porcine) (Heparin (5000 Units/0.5 ml)) 5,000 unit Q12 SC Last administered on 08/17/16 09:11; Admin Dose 5,000 UNIT; Start 08/13/16 at 21:00 Allopurinol (Zyloprim) 100 mg DAILY PO Last administered on 08/17/16 09:03; Admin Dose 100 MG; Start 08/14/16 at 09:00 Ascorbic Acid (Vitamin C) 500 mg DAILY PO Last administered on 08/17/16 09:06 ; Admin Dose 500 MG; Start 08/13/16 at 18:00 Aspirin (Halfprin) 81 mg DAILY PO Last administered on 08/17/16 09:05; Admin Dose 81 MG; Start 08/14/16 at 09:00 Atorvastatin Calcium (Lipitor) 10 mg QHS PO Last administered on 08/16/16 21: 56; Admin Dose 10 MG; Start 08/13/16 at 21:00 Cholecalciferol (Vitamin D) 1,000 unit DAILY PO Last administered on 08/17/16 09:05; Admin Dose 1,000 UNIT; Start 08/14/16 at 09:00 Ferrous Sulfate (Ferrous Sulfate (Ec)) 325 mg BID PO Last administered on 09:03; Admin Dose 325 MG; Start 08/13/16 at 21:00 Fish Oil (Fish Oil) 1,000 mg DAILY PO Last administered on 08/17/16 09:04; Admin Dose 1,000 MG; Start 08/14/16 at 09:00 Insulin Glargine (Lantus) 12 unit QHS SC Last administered on 08/16/16 21:54; Admin Dose 12 UNIT; Start 08/13/16 at 21:00 Lactobacillus Acidoph/Bulgaricus (Floranex) 1 tab TID PO Last administered on 08/17/16 13:38; Admin Dose 1 TAB; Start 08/13/16 at 21:00 Lorazepam (Ativan) 0.5 mg Q6 PRN PO ANXIETY; Start 08/13/16 at 17:30 Metoprolol Tartrate (Lopressor) 12.5 mg BID PO Last administered on 08/17/16 09:06; Admin Dose 12.5 MG; Start 08/13/16 at 21:00 Pregabalin (Lyrica) 50 mg TID PO Last administered on 12/2/16at 13:38; Admin Dose 50 MG; Start 08/13/16 at 21:00 Pyridoxine HCl (Vitamin B6) 100 mg DAILY PO Last administered on 08/17/16 09: 03; Admin Dose 100 MG; Start 08/14/16 at 09:00 Simethicone (Mylicon) 80 mg Q6H PRN PO INTESTINAL SPASMS/CRAMPING Last administered on 08/16/16 15:27; Admin Dose 80 MG; Start 08/13/16 at 17:30 Vitamin E (Vitamin E) 400 units DAILY PO Last administered on 08/17/16 09:06; Admin Dose 400 UNITS; Start 08/14/16 at 09:00 Fluoxetine HCl (Prozac) 20 mg DAILY PO Last administered on 08/17/16 09:06; Admin Dose 20 MG; Start 08/14/16 at 09:00 Miscellaneous Information 1 ea NOTE XX ; Start 08/13/16 at 18:00 Glucose (Glutose) 15 gm Q15M PRN PO DECREASED GLUCOSE; Start 08/13/16 at 18:00 Glucose (Glutose) 22.5 gm Q15M PRN PO DECREASED GLUCOSE; Start 08/13/16 at 18: 00 Dextrose (D50w Syringe) 25 ml Q15M PRN IV DECREASED GLUCOSE; Start 08/13/16 at 18:00 Dextrose (D50w Syringe) 50 ml Q15M PRN IV DECREASED GLUCOSE; Start 08/13/16 at 18:00 Glucagon (Glucagen) 1 mg Q15M PRN IM DECREASED GLUCOSE; Start 08/13/16 at 18: 00 Glucose 15 gm 15 gm Q15M PRN BUCCAL DECREASED GLUCOSE; Start 08/13/16 at 18:00 Vancomycin HCl/ Sodium Chloride (Vancocin/NS) 500 ml @ 125 mls/hr Q48H IVPB Last administered on 08/15/16at 15:36; Admin Dose 125 MLS/HR; Start 08/15/16 at 16:00 Sodium Hypochlorite (Dakin'S (1/4 Strength)) 1 applic DAILY IRR Last administered on 08/17/16 09:03; Admin Dose 1 APPLIC; Start 08/13/16 at 20:00 Acetaminophen/ Hydrocodone Bitart ([place] (5/325)) 2 tab Q6H PRN PO MODERATE PAIN LEVEL 4-6 Last administered on 08/14/16at 13:03; Admin Dose 2 TAB; Start 08/14/16 at 13:00 IV Flush (NS 10 ml) 10 ml PRN PRN IV IV PTOTOCOL; Start 08/14/16 at 17:00 Bumetanide (Bumex) 1 mg 06,14 PO Last administered on 08/17/16at 13:38; Admin Dose 1 MG; Start 08/15/16 at 06:00 Miscellaneous Information (*Rx Drug Level Order Reminder*) VANCOMYCIN TROUGH AT 1500 ONCE ONCE XX ; Start 08/17/16 at 15:00; Stop 08/17/16 at 15:01 Acetylcysteine (Nac) 600 mg BID PO Last administered on 08/17/16at 09:05; Admin Dose 600 MG; Start 08/16/16 at 21:00 Ondansetron HCl (Zofran Inj) 4 mg Q4H PRN IV NAUSEA AND/OR VOMITING; Start 08/16/16 at 12:30 Zolpidem Tartrate (Ambien) 10 mg HS PRN PO INSOMNIA Last administered on at 21:57; Admin Dose 10 MG; Start 08/16/16 at 21:00 Assessment/Plan Chief Complaint/Hosp Course MICROBIOLOGY: Bld cx+ [facility] DIAGNOSTICS: MRI revealed cellulitis and osteomyelitis of the left first toe. ANTIMICROBIALS: Vancomycin and Rocephin. Urinalysis on admission was negative. PHYSICAL EXAMINATION: GENERAL: Obese, well-developed, middle-aged white man who is sitting in a chair. Patient is in no distress. HEENT: Head atraumatic, normocephalic. Sclerae anicteric. Buccal mucosa dry. NECK: Supple, trachea midline. CHEST: Rise symmetrical. Breath sounds clear, diminished to bases. HEART: S1, S2. ABDOMEN: Soft, bowel tones present. EXTREMITIES: Bilateral Patrick wraps. ASSESSMENT: 1. Bilateral lower extremities acute on chronic cellulitis with chronic venous stasis and left toe osteomyelitis. 2. Systemic inflammatory response syndrome 2 to above. 3. Septicemia==>KENAN 4. Questionable pneumonia as per chest x-ray. 5. Morbid obesity. 6. Atrial fibrillation, chronic. 7. Chronic kidney disease. 8. PAD==> s/p angiogram PLAN: Clinically stable. Pending repeat bld cx, continue abx, f/u podiatry/ vascular rec-s, consider treating with IV anx for 6 weeks [facility] staff Problems: JAMEY VAZQUEZ NP Aug 17, 2016 13:53
--- NOTE | 2016-08-17 14:07 | CONS ---
Date/Time of Note Date/Time of Note DATE: 08/17/16 TIME: 14:06 Assessment/Plan Assessment/Plan Additional Assessment/Plan 60 yo Male with 1) LORNA on CKD, Pre-Renal in the setting of diuretic Rx 2) Left toe cellulits R/o OM 3) HTN, Chronic 4) Diastolic Heart Failure, Chronic 5) Pulm HTN 6) Anema, Chroinc 7) RLL Patchy Consolidation R/o PNA Renal function overall stable after contrast study Will cont to monitor renal function, UO and electrolytes Restart Diuretic Rx, Bumex BID Consultation Date/Type/Reason Admit Date/Time Aug 13, 2016 at 16:30 Initial Consult Date 08/13/16 Type of Consultation: Nephrology Reason for Consultation LORNA Referring Provider: KELLEN MEDINA MD 24 HR Interval Summary Free Text/Dictation S/p Angiogram, No new complaints Exam/Review of Systems Vital Signs Vitals Vital Signs Date Time Temp Pulse Resp B/P Pulse Ox O2 Delivery O2 Flow Rate FiO2 08/17/16 13:54 76 20 93 Nasal Cannula 4.0 08/17/16 08:00 97.9 138/81 08/16/16 22:41 40 Intake and Output 08/16/16 08/16/16 08/17/16 15:00 23:00 07:00 Intake Total 420 ml 720 ml 1040 ml Output Total 700 ml 600 ml Balance 420 ml 20 ml 440 ml Exam Constitutional: No distress Head: atraumatic Eyes: EOMI Respiratory: crackles/rales, diminished breath sounds, No labored breathing Cardiovascular: edema, regular rate and rhythm Gastrointestinal: distended, soft Extremities: pitting pedal edema 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: [employer] 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, nl mental status, No lethargic Skin: No diaphoresis Results Result Diagram: 08/16/16 0525 08/17/16 0544 Results 24 hrs Laboratory Tests Test 08/16/16 16:59 08/16/16 20:25 08/17/16 05:44 08/17/16 09:02 Bedside Glucose 170 239 H 174 Blood Urea Nitrogen 57 H Creatinine 1.50 H Test 08/17/16 12:08 Bedside Glucose 156 Medications Medications Current Medications Ondansetron HCl (Zofran Inj) 4 mg Q6H PRN IV NAUSEA AND/OR VOMITING; Start at 17:30 Acetaminophen (Tylenol Tab) 650 mg Q6H PRN PO PAIN LEVEL 1-3 OR FEVER; Start 08/13/16 at 17:30 Acetaminophen/ Hydrocodone Bitart ([place] (5/325)) 1 tab Q6H PRN PO MODERATE PAIN LEVEL 4-6; Start 08/13/16 at 17:30 Morphine Sulfate (morphine) 2 mg Q4H PRN IV SEVERE PAIN LEVEL 7-10 Last administered on 08/13/16at 17:58; Admin Dose 2 MG; Start 08/13/16 at 17:30 Docusate Sodium (Colace) 100 mg Q12H PRN PO CONSTIPATION; Start 08/13/16 at 17 :30 Famotidine (Pepcid) 20 mg Q12 PO Last administered on 08/17/16 09:05; Admin Dose 20 MG; Start 08/13/16 at 21:00 Heparin Sodium (Porcine) (Heparin (5000 Units/0.5 ml)) 5,000 unit Q12 SC Last administered on 08/17/16 09:11; Admin Dose 5,000 UNIT; Start 08/13/16 at 21:00 Allopurinol (Zyloprim) 100 mg DAILY PO Last administered on 08/17/16 09:03; Admin Dose 100 MG; Start 08/14/16 at 09:00 Ascorbic Acid (Vitamin C) 500 mg DAILY PO Last administered on 08/17/16 09:06 ; Admin Dose 500 MG; Start 08/13/16 at 18:00 Aspirin (Halfprin) 81 mg DAILY PO Last administered on 08/17/16 09:05; Admin Dose 81 MG; Start 08/14/16 at 09:00 Atorvastatin Calcium (Lipitor) 10 mg QHS PO Last administered on 08/16/16 21: 56; Admin Dose 10 MG; Start 08/13/16 at 21:00 Cholecalciferol (Vitamin D) 1,000 unit DAILY PO Last administered on 08/17/16 09:05; Admin Dose 1,000 UNIT; Start 08/14/16 at 09:00 Ferrous Sulfate (Ferrous Sulfate (Ec)) 325 mg BID PO Last administered on 09:03; Admin Dose 325 MG; Start 08/13/16 at 21:00 Fish Oil (Fish Oil) 1,000 mg DAILY PO Last administered on 08/17/16 09:04; Admin Dose 1,000 MG; Start 08/14/16 at 09:00 Insulin Glargine (Lantus) 12 unit QHS SC Last administered on 08/16/16at 21:54; Admin Dose 12 UNIT; Start 08/13/16 at 21:00 Lactobacillus Acidoph/Bulgaricus (Floranex) 1 tab TID PO Last administered on 08/17/16 13:38; Admin Dose 1 TAB; Start 08/13/16 at 21:00 Lorazepam (Ativan) 0.5 mg Q6 PRN PO ANXIETY; Start 08/13/16 at 17:30 Metoprolol Tartrate (Lopressor) 12.5 mg BID PO Last administered on 08/17/16 09:06; Admin Dose 12.5 MG; Start 08/13/16 at 21:00 Pregabalin (Lyrica) 50 mg TID PO Last administered on 08/17/16 13:38; Admin Dose 50 MG; Start 08/13/16 at 21:00 Pyridoxine HCl (Vitamin B6) 100 mg DAILY PO Last administered on 08/17/16at 09: 03; Admin Dose 100 MG; Start 08/14/16 at 09:00 Simethicone (Mylicon) 80 mg Q6H PRN PO INTESTINAL SPASMS/CRAMPING Last administered on 08/16/16at 15:27; Admin Dose 80 MG; Start 08/13/16 at 17:30 Vitamin E (Vitamin E) 400 units DAILY PO Last administered on 08/17/16 09:06; Admin Dose 400 UNITS; Start 08/14/16 at 09:00 Fluoxetine HCl (Prozac) 20 mg DAILY PO Last administered on 08/17/16 09:06; Admin Dose 20 MG; Start 08/14/16 at 09:00 Miscellaneous Information 1 ea NOTE XX ; Start 08/13/16 at 18:00 Glucose (Glutose) 15 gm Q15M PRN PO DECREASED GLUCOSE; Start 08/13/16 at 18:00 Glucose (Glutose) 22.5 gm Q15M PRN PO DECREASED GLUCOSE; Start 08/13/16 at 18: 00 Dextrose (D50w Syringe) 25 ml Q15M PRN IV DECREASED GLUCOSE; Start 08/13/16 at 18:00 Dextrose (D50w Syringe) 50 ml Q15M PRN IV DECREASED GLUCOSE; Start 08/13/16 at 18:00 Glucagon (Glucagen) 1 mg Q15M PRN IM DECREASED GLUCOSE; Start 08/13/16 at 18: 00 Glucose 15 gm 15 gm Q15M PRN BUCCAL DECREASED GLUCOSE; Start 08/13/16 at 18:00 Vancomycin HCl/ Sodium Chloride (Vancocin/NS) 500 ml @ 125 mls/hr Q48H IVPB Last administered on 08/15/16at 15:36; Admin Dose 125 MLS/HR; Start 08/15/16 at 16:00 Sodium Hypochlorite (Dakin'S (1/4 Strength)) 1 applic DAILY IRR Last administered on 08/17/16at 09:03; Admin Dose 1 APPLIC; Start 08/13/16 at 20:00 Acetaminophen/ Hydrocodone Bitart ([place] (5/325)) 2 tab Q6H PRN PO MODERATE PAIN LEVEL 4-6 Last administered on 08/14/16at 13:03; Admin Dose 2 TAB; Start 08/14/16 at 13:00 IV Flush (NS 10 ml) 10 ml PRN PRN IV IV PTOTOCOL; Start 08/14/16 at 17:00 Bumetanide (Bumex) 1 mg 06,14 PO Last administered on 08/17/16at 13:38; Admin Dose 1 MG; Start 08/15/16 at 06:00 Miscellaneous Information (*Rx Drug Level Order Reminder*) VANCOMYCIN TROUGH AT 1500 ONCE ONCE XX ; Start 08/17/16 at 15:00; Stop 08/17/16 at 15:01 Acetylcysteine (Nac) 600 mg BID PO Last administered on 08/17/16at 09:05; Admin Dose 600 MG; Start 08/16/16 at 21:00 Ondansetron HCl (Zofran Inj) 4 mg Q4H PRN IV NAUSEA AND/OR VOMITING; Start 08/16/16 at 12:30 Zolpidem Tartrate (Ambien) 10 mg HS PRN PO INSOMNIA Last administered on at 21:57; Admin Dose 10 MG; Start 08/16/16 at 21:00 DYAN FRANKLIN MD Aug 17, 2016 14:07
[2016-08-17] MEDS: VANCOMYCIN 2 GM in SOD CHLORIDE 0.9% 500 ML IVPB SCH (17:11)
[2016-08-17 20:00] VITALS: BP 141/69; PULSE 78; RESP 18
[2016-08-17] MEDS: ATORVASTATIN 10 MG TAB PO SCH (21:40)
[2016-08-17] MEDS: ZOLPIDEM 5 MG TAB PO PRN (21:40)
[2016-08-17] MEDS: INSULIN GLARGINE [LANtus] 3 ML PEN SC SCH (21:44)
[2016-08-17 22:40] VITALS: PULSE 85
[2016-08-18] VITALS (8 sets, daily range): BP systolic 133–142; BP diastolic 71–74; PULSE 78–95; RESP 18–26
[2016-08-18] MEDS: BUMETANIDE 1 MG TAB PO SCH ×2 (05:27→14:15)
[2016-08-18 06:16] LABS: POTASSIUM 4.1 mmol/L (3.5-5.1)
[2016-08-18 06:18] LABS: CREATININE 1.49 mg/dl (0.61-1.24)
[2016-08-18 06:19] LABS: CALCIUM 7.9 mg/dl (8.4-10.2)
[2016-08-18] MEDS: INSULIN ASPART [NOVOLOG] 3 ML PEN SC SCH ×4 (08:07→21:24)
--- NOTE | 2016-08-18 09:12 | PN ---
Date/Time of Note Date/Time of Note DATE: 08/18/16 TIME: 09:05 Assessment/Plan VTE Prophylaxis VTE Prophylaxis Intervention: heparin Lines/Catheters IV Catheter Type (from Nrs): PICC Line Central line still needed: Yes Urinary Cath still in place: No Assessment/Plan Assessment/Plan 60 yo male with a past medical history of type II DM, previous osteomyelitis, essential hypertension, atrial fibrillation, CHF with diastolic dysfunction, gout, morbid obesity, peripheral vascular disease, depression, CKD and chronic respiratory failure who came in for worsening left greater toe swelling and redness. 1. Left greater toe - osteomyelitis/cellulitis - PICC line for senior living antibiotics, f/u podiatry recs - IV antibiotics 6 weeks - angiogram completed - no intervention as per vascular 2. Leukocytosis - 2/2 #1, monitor acute changes - improved 3. Respiratory failure - continue with supplemental O2, ABG worsening PCo2 - steroids and intermittent BiPAP - possible silent aspiration 4. Acute on Chronic Kidney Disease - avoid nephrotoxins, renally adjust medications - 2/2 to ATN - appreciate nephro recs 5. CHF diastolic dysfunction - stable continue with lasix, aspirin 6. Type II DM - recent hgba1c is 5.8, carb controlled/renal/cardiac diet, ISS 7. Essential hypertension - c/w BB, hold ACEI/ARB 2/2 to renal dysfunction, hydralazine prn for SBP > 160 8. Atrial Fibrillation - rate controlled - continue with heparin 9. Dyslipidemia - continue with statin 10. Gout - continue with allopurinol 11. Depression - continue SSRI 12. Morbid obesity - needs dietary consult 13. Anemia - acute on chronic - check iron profile, occult blood - transfuse if hgb < 8 g/dL 14. GI ppx - pepcid 15. DVT ppx - heparin dispo - f/u recs, PICC line insertion, monitor acute changes, once the patient has decreased O2 demand to baseline, video swallow this progress note took greater than 40 minutes to complete Subjective 24 Hr Interval Summary Free Text/Dictation Patient is doing better today. Feels like he is breathing better. He states that he had a previous tracheostomy. He had a previous barium swallow. Denies any acute dysphagia. Discussed the possibility of silent aspiration. Spoke to him about the care plan. 20 minutes spent. Exam/Review of Systems Vital Signs Vitals Vital Signs Date Time Temp Pulse Resp B/P Pulse Ox O2 Delivery O2 Flow Rate FiO2 08/18/16 08:32 4.0 08/18/16 08:20 95 99 40 08/18/16 08:19 98.6 18 133/72 Nasal Cannula Intake and Output 08/17/16 08/17/16 08/18/16 14:59 22:59 06:59 Intake Total 720 ml 450 ml Output Total 900 ml 700 ml Balance -180 ml -250 ml Exam Gen [place]: mild respiratory distress, AAOx4, morbidly obese male HEENT: NC/AT, PERRLA, EOMI, no pharyngeal erythema, no tonsillar exudates, no lymphadenopathy, no JVD, no carotid bruits NECK: supple, no thyromegaly THORAX: symmetrical, no obvious deformities CV: S1S2, RRR, II/ systolic murmur best heard over the apex Lungs: diminished breath sounds to the bases bilaterally, no wheezing - mild right basilar rhonchi Abd: soft, NT/ND, +BS, no rebound, no guarding, neg HSM, protuberant EXT: 2+ pitting edema, skin sloughing noted, left greater toe with surrounding erythema/edema, scattered petechiae upper extremities, easily bruisability, with adolfo wraps bilaterally Neuro: CN II-XII grossly intact, decreased proprioception bilateral lower extremities Psych: fair mood and affect Skin: see extremities Results Result Diagram: 08/16/16 0525 08/18/16 0514 Results 24 hrs Laboratory Tests Test 08/17/16 12:08 08/17/16 15:00 08/17/16 17:12 08/17/16 21:15 Bedside Glucose 156 192 230 H Vancomycin Level Trough 10.2 Test 08/18/16 02:40 08/18/16 05:14 08/18/16 07:51 Bedside Glucose 116 111 Anion Gap 12 Blood Urea Nitrogen 58 H Calcium Level 7.9 L Carbon Dioxide Level 32 H Chloride Level 95 L Creatinine 1.49 H Glucose Level 103 Potassium Level 4.1 Sodium Level 135 Medications Medications Current Medications Ondansetron HCl (Zofran Inj) 4 mg Q6H PRN IV NAUSEA AND/OR VOMITING; Start at 17:30 Acetaminophen (Tylenol Tab) 650 mg Q6H PRN PO PAIN LEVEL 1-3 OR FEVER; Start 08/13/16 at 17:30 Acetaminophen/ Hydrocodone Bitart ([place] (5/325)) 1 tab Q6H PRN PO MODERATE PAIN LEVEL 4-6; Start 08/13/16 at 17:30 Morphine Sulfate (morphine) 2 mg Q4H PRN IV SEVERE PAIN LEVEL 7-10 Last administered on 08/13/16at 17:58; Admin Dose 2 MG; Start 08/13/16 at 17:30 Docusate Sodium (Colace) 100 mg Q12H PRN PO CONSTIPATION; Start 08/13/16 at 17 :30 Famotidine (Pepcid) 20 mg Q12 PO Last administered on 08/17/16 21:41; Admin Dose 20 MG; Start 08/13/16 at 21:00 Heparin Sodium (Porcine) (Heparin (5000 Units/0.5 ml)) 5,000 unit Q12 SC Last administered on 08/17/16 21:43; Admin Dose 5,000 UNIT; Start 08/13/16 at 21:00 Allopurinol (Zyloprim) 100 mg DAILY PO Last administered on 08/17/16 09:03; Admin Dose 100 MG; Start 08/14/16 at 09:00 Ascorbic Acid (Vitamin C) 500 mg DAILY PO Last administered on 08/17/16 09:06 ; Admin Dose 500 MG; Start 08/13/16 at 18:00 Aspirin (Halfprin) 81 mg DAILY PO Last administered on 08/17/16 09:05; Admin Dose 81 MG; Start 08/14/16 at 09:00 Atorvastatin Calcium (Lipitor) 10 mg QHS PO Last administered on 08/17/16 21: 40; Admin Dose 10 MG; Start 08/13/16 at 21:00 Cholecalciferol (Vitamin D) 1,000 unit DAILY PO Last administered on 08/17/16 09:05; Admin Dose 1,000 UNIT; Start 08/14/16 at 09:00 Ferrous Sulfate (Ferrous Sulfate (Ec)) 325 mg BID PO Last administered on 21:40; Admin Dose 325 MG; Start 08/13/16 at 21:00 Fish Oil (Fish Oil) 1,000 mg DAILY PO Last administered on 08/17/16 09:04; Admin Dose 1,000 MG; Start 08/14/16 at 09:00 Insulin Glargine (Lantus) 12 unit QHS SC Last administered on 08/17/16 21:44; Admin Dose 12 UNIT; Start 08/13/16 at 21:00 Lactobacillus Acidoph/Bulgaricus (Floranex) 1 tab TID PO Last administered on 08/17/16at 21:40; Admin Dose 1 TAB; Start 08/13/16 at 21:00 Lorazepam (Ativan) 0.5 mg Q6 PRN PO ANXIETY; Start 08/13/16 at 17:30 Metoprolol Tartrate (Lopressor) 12.5 mg BID PO Last administered on 08/17/16 21:41; Admin Dose 12.5 MG; Start 08/13/16 at 21:00 Pregabalin (Lyrica) 50 mg TID PO Last administered on 08/17/16 21:41; Admin Dose 50 MG; Start 08/13/16 at 21:00 Pyridoxine HCl (Vitamin B6) 100 mg DAILY PO Last administered on 08/17/16 09: 03; Admin Dose 100 MG; Start 08/14/16 at 09:00 Simethicone (Mylicon) 80 mg Q6H PRN PO INTESTINAL SPASMS/CRAMPING Last administered on 08/16/16at 15:27; Admin Dose 80 MG; Start 08/13/16 at 17:30 Vitamin E (Vitamin E) 400 units DAILY PO Last administered on 08/17/16 09:06; Admin Dose 400 UNITS; Start 08/14/16 at 09:00 Fluoxetine HCl (Prozac) 20 mg DAILY PO Last administered on 08/17/16at 09:06; Admin Dose 20 MG; Start 08/14/16 at 09:00 Miscellaneous Information 1 ea NOTE XX ; Start 08/13/16 at 18:00 Glucose (Glutose) 15 gm Q15M PRN PO DECREASED GLUCOSE; Start 08/13/16 at 18:00 Glucose (Glutose) 22.5 gm Q15M PRN PO DECREASED GLUCOSE; Start 08/13/16 at 18: 00 Dextrose (D50w Syringe) 25 ml Q15M PRN IV DECREASED GLUCOSE; Start 08/13/16 at 18:00 Dextrose (D50w Syringe) 50 ml Q15M PRN IV DECREASED GLUCOSE; Start 08/13/16 at 18:00 Glucagon (Glucagen) 1 mg Q15M PRN IM DECREASED GLUCOSE; Start 08/13/16 at 18: 00 Glucose 15 gm 15 gm Q15M PRN BUCCAL DECREASED GLUCOSE; Start 08/13/16 at 18:00 Vancomycin HCl/ Sodium Chloride (Vancocin/NS) 500 ml @ 125 mls/hr Q48H IVPB Last administered on 08/17/16 17:11; Admin Dose 125 MLS/HR; Start 08/15/16 at 16:00 Sodium Hypochlorite (Dakin'S (1/4 Strength)) 1 applic DAILY IRR Last administered on 08/17/16 09:03; Admin Dose 1 APPLIC; Start 08/13/16 at 20:00 Acetaminophen/ Hydrocodone Bitart ([place] (5/325)) 2 tab Q6H PRN PO MODERATE PAIN LEVEL 4-6 Last administered on 08/14/16at 13:03; Admin Dose 2 TAB; Start 08/14/16 at 13:00 IV Flush (NS 10 ml) 10 ml PRN PRN IV IV PTOTOCOL; Start 08/14/16 at 17:00 Bumetanide (Bumex) 1 mg 06,14 PO Last administered on 08/18/16 05:27; Admin Dose 1 MG; Start 08/15/16 at 06:00 Acetylcysteine (Nac) 600 mg BID PO Last administered on 08/17/16at 21:41; Admin Dose 600 MG; Start 08/16/16 at 21:00 Ondansetron HCl (Zofran Inj) 4 mg Q4H PRN IV NAUSEA AND/OR VOMITING; Start 08/16/16 at 12:30 Zolpidem Tartrate (Ambien) 10 mg HS PRN PO INSOMNIA Last administered on at 21:40; Admin Dose 10 MG; Start 08/16/16 at 21:00 KELLEN MEDINA MD Aug 18, 2016 09:11
[2016-08-18] MEDS: SODIUM HYPOCHLORITE 0.125% 473 ML BTL IRR SCH (09:35)
[2016-08-18] MEDS: FAMOTIDINE 20 MG TAB PO SCH ×2 (09:36→21:05)
[2016-08-18] MEDS: ASCORBIC ACID 500 MG TAB PO SCH (09:36)
[2016-08-18] MEDS: FLUOXETINE 20 MG CAP PO SCH (09:36)
[2016-08-18] MEDS: ALLOPURINOL 100 MG TAB PO SCH (09:36)
[2016-08-18] MEDS: PYRIDOXINE 50 MG TAB PO SCH (09:36)
[2016-08-18] MEDS: FISH OIL 1,000 MG CAP PO SCH (09:36)
[2016-08-18] MEDS: CHOLECALCIFEROL 1,000 UNIT TAB PO SCH (09:36)
[2016-08-18] MEDS: ACETYLCYSTEINE 600 MG CAP PO SCH ×2 (09:37→21:04)
[2016-08-18] MEDS: LACTOBACILLUS CHEW TAB PO SCH ×3 (09:37→21:04)
[2016-08-18] MEDS: ASPIRIN (EC) 81 MG TAB PO SCH (09:37)
[2016-08-18] MEDS: VITAMIN E 400 UNITS CAP PO SCH (09:37)
[2016-08-18] MEDS: FERROUS SULFATE (EC) 325 MG TAB PO SCH ×2 (09:37→21:05)
[2016-08-18] MEDS: HEPARIN 5,000 UNIT/0.5 ML SYG SC SCH ×2 (09:39→21:25)
[2016-08-18] MEDS: METOPROLOL 25 MG TAB PO SCH ×2 (09:42→21:05)
[2016-08-18] MEDS: PREGABALIN 25 MG CAP PO SCH ×3 (09:42→21:04)
--- NOTE | 2016-08-18 11:31 | PN ---
Date/Time of Note Date/Time of Note DATE: 08/18/16 TIME: 11:29 Assessment/Plan VTE Prophylaxis VTE Prophylaxis Intervention: other Assessment/Plan Assessment/Plan 1) LRONA on CKD, Pre-Renal in the setting of diuretic Rx 2) Left toe cellulits R/o OM 3) HTN, Chronic 4) Diastolic Heart Failure, Chronic 5) Pulm HTN 6) [id number] feels ok creat stable cont plan on iv vanco Subjective 24 Hr Interval Summary Constitutional: no complaints Exam/Review of Systems Vital Signs Vitals Vital Signs Date Time Temp Pulse Resp B/P Pulse Ox O2 Delivery O2 Flow Rate FiO2 08/18/16 08:32 4.0 08/18/16 08:20 95 99 40 08/18/16 08:19 98.6 18 133/72 Nasal Cannula Intake and Output 08/17/16 08/17/16 08/18/16 14:59 22:59 06:59 Intake Total 720 ml 450 ml Output Total 900 ml 700 ml Balance -180 ml -250 ml Exam Constitutional: alert, oriented ENMT: nl external ears & nose Neck: supple Respiratory: clear to auscultation, normal air movement Cardiovascular: nl pulses, regular rate and rhythm Gastrointestinal: soft Extremities: edema Results Result Diagram: 08/16/16 0525 08/18/16 0514 Results 24 hrs Laboratory Tests Test 08/17/16 12:08 08/17/16 15:00 08/17/16 17:12 08/17/16 21:15 Bedside Glucose 156 192 230 H Vancomycin Level Trough 10.2 Test 08/18/16 02:40 08/18/16 05:14 08/18/16 07:51 Bedside Glucose 116 111 Anion Gap 12 Blood Urea Nitrogen 58 H Calcium Level 7.9 L Carbon Dioxide Level 32 H Chloride Level 95 L Creatinine 1.49 H Glucose Level 103 Potassium Level 4.1 Sodium Level 135 Medications Medications Current Medications Ondansetron HCl (Zofran Inj) 4 mg Q6H PRN IV NAUSEA AND/OR VOMITING; Start at 17:30 Acetaminophen (Tylenol Tab) 650 mg Q6H PRN PO PAIN LEVEL 1-3 OR FEVER; Start 08/13/16 at 17:30 Acetaminophen/ Hydrocodone Bitart ([place] (5/325)) 1 tab Q6H PRN PO MODERATE PAIN LEVEL 4-6; Start 08/13/16 at 17:30 Morphine Sulfate (morphine) 2 mg Q4H PRN IV SEVERE PAIN LEVEL 7-10 Last administered on 08/13/16 17:58; Admin Dose 2 MG; Start 08/13/16 at 17:30 Docusate Sodium (Colace) 100 mg Q12H PRN PO CONSTIPATION; Start 08/13/16 at 17 :30 Famotidine (Pepcid) 20 mg Q12 PO Last administered on 08/18/16 09:36; Admin Dose 20 MG; Start 08/13/16 at 21:00 Heparin Sodium (Porcine) (Heparin (5000 Units/0.5 ml)) 5,000 unit Q12 SC Last administered on 08/18/16 09:39; Admin Dose 5,000 UNIT; Start 08/13/16 at 21:00 Allopurinol (Zyloprim) 100 mg DAILY PO Last administered on 08/18/16 09:36; Admin Dose 100 MG; Start 08/14/16 at 09:00 Ascorbic Acid (Vitamin C) 500 mg DAILY PO Last administered on 08/18/16 09:36 ; Admin Dose 500 MG; Start 08/13/16 at 18:00 Aspirin (Halfprin) 81 mg DAILY PO Last administered on 08/18/16 09:37; Admin Dose 81 MG; Start 08/14/16 at 09:00 Atorvastatin Calcium (Lipitor) 10 mg QHS PO Last administered on 08/17/16 21: 40; Admin Dose 10 MG; Start 08/13/16 at 21:00 Cholecalciferol (Vitamin D) 1,000 unit DAILY PO Last administered on 08/18/16 09:36; Admin Dose 1,000 UNIT; Start 08/14/16 at 09:00 Ferrous Sulfate (Ferrous Sulfate (Ec)) 325 mg BID PO Last administered on 09:37; Admin Dose 325 MG; Start 08/13/16 at 21:00 Fish Oil (Fish Oil) 1,000 mg DAILY PO Last administered on 08/18/16 09:36; Admin Dose 1,000 MG; Start 08/14/16 at 09:00 Insulin Glargine (Lantus) 12 unit QHS SC Last administered on 08/17/16 21:44; Admin Dose 12 UNIT; Start 08/13/16 at 21:00 Lactobacillus Acidoph/Bulgaricus (Floranex) 1 tab TID PO Last administered on 08/18/16 09:37; Admin Dose 1 TAB; Start 08/13/16 at 21:00 Lorazepam (Ativan) 0.5 mg Q6 PRN PO ANXIETY Last administered on 08/18/16 11: 20; Admin Dose 0.5 MG; Start 08/13/16 at 17:30 Metoprolol Tartrate (Lopressor) 12.5 mg BID PO Last administered on 08/18/16 09:42; Admin Dose 12.5 MG; Start 08/13/16 at 21:00 Pregabalin (Lyrica) 50 mg TID PO Last administered on 08/18/16 09:42; Admin Dose 50 MG; Start 08/13/16 at 21:00 Pyridoxine HCl (Vitamin B6) 100 mg DAILY PO Last administered on 08/18/16 09: 36; Admin Dose 100 MG; Start 08/14/16 at 09:00 Simethicone (Mylicon) 80 mg Q6H PRN PO INTESTINAL SPASMS/CRAMPING Last administered on 08/16/16 15:27; Admin Dose 80 MG; Start 08/13/16 at 17:30 Vitamin E (Vitamin E) 400 units DAILY PO Last administered on 08/18/16 09:37; Admin Dose 400 UNITS; Start 08/14/16 at 09:00 Fluoxetine HCl (Prozac) 20 mg DAILY PO Last administered on 08/18/16 09:36; Admin Dose 20 MG; Start 08/14/16 at 09:00 Miscellaneous Information 1 ea NOTE XX ; Start 08/13/16 at 18:00 Glucose (Glutose) 15 gm Q15M PRN PO DECREASED GLUCOSE; Start 08/13/16 at 18:00 Glucose (Glutose) 22.5 gm Q15M PRN PO DECREASED GLUCOSE; Start 08/13/16 at 18: 00 Dextrose (D50w Syringe) 25 ml Q15M PRN IV DECREASED GLUCOSE; Start 08/13/16 at 18:00 Dextrose (D50w Syringe) 50 ml Q15M PRN IV DECREASED GLUCOSE; Start 08/13/16 at 18:00 Glucagon (Glucagen) 1 mg Q15M PRN IM DECREASED GLUCOSE; Start 08/13/16 at 18: 00 Glucose 15 gm 15 gm Q15M PRN BUCCAL DECREASED GLUCOSE; Start 08/13/16 at 18:00 Vancomycin HCl/ Sodium Chloride (Vancocin/NS) 500 ml @ 125 mls/hr Q48H IVPB Last administered on 08/17/16 17:11; Admin Dose 125 MLS/HR; Start 08/15/16 at 16:00 Sodium Hypochlorite (Dakin'S (1/4 Strength)) 1 applic DAILY IRR Last administered on 08/18/16at 09:35; Admin Dose 1 APPLIC; Start 08/13/16 at 20:00 Acetaminophen/ Hydrocodone Bitart ([place] (5/325)) 2 tab Q6H PRN PO MODERATE PAIN LEVEL 4-6 Last administered on 08/14/16at 13:03; Admin Dose 2 TAB; Start 08/14/16 at 13:00 IV Flush (NS 10 ml) 10 ml PRN PRN IV IV PTOTOCOL; Start 08/14/16 at 17:00 Bumetanide (Bumex) 1 mg 06,14 PO Last administered on 08/18/16at 05:27; Admin Dose 1 MG; Start 08/15/16 at 06:00 Acetylcysteine (Nac) 600 mg BID PO Last administered on 08/18/16at 09:37; Admin Dose 600 MG; Start 08/16/16 at 21:00 Ondansetron HCl (Zofran Inj) 4 mg Q4H PRN IV NAUSEA AND/OR VOMITING; Start 08/16/16 at 12:30 Zolpidem Tartrate (Ambien) 10 mg HS PRN PO INSOMNIA Last administered on at 21:40; Admin Dose 10 MG; Start 08/16/16 at 21:00 TYLER ZHU MD Aug 18, 2016 11:31
[2016-08-18] MEDS ORDERED: BARIUM SULFATE 135 ML (E-Z HD) PO ONE (12:40)
--- NOTE | 2016-08-18 14:16 | RADRPT ---
PROCEDURE: Video swallowing study CLINICAL INDICATION: Dysphagia TECHNIQUE: Modified barium swallowing study was performed. Fluoroscopy was utilized for the proce dure. Imaging was confined to the oral pharyngeal and cervical phases of the swallowing mechanism. Fluoroscopic guidance was utilized during multiple swallows of thin and thick liquids. COMPARISON: None available FINDINGS: No aspiration was seen. 0.9 minutes of fluoroscopy time was utilized during the procedure. IMPRESSION: 1. No evidence for aspiration. 2. Please refer to swallowing therapist's recommendations for future feedings. RPTAT: QQ .Rohith Arechiga MD, MD Date Time Electronically viewed and signed by .Rohith Arechiga MD, on 08/18/2016 14:15 .R/
[2016-08-18] MEDS: LORAZEPAM 0.5 MG TAB PO PRN (14:37)
--- NOTE | 2016-08-18 14:40 | CONS ---
Date/Time of Note Date/Time of Note DATE: 08/18/16 TIME: 14:39 Consult Date/Type/Reason Admit Date/Time Aug 13, 2016 at 16:30 Initial Consult Date 08/13/16 Type of Consultation: ID Ordering Provider: KELLEN MEDINA MD Subjective no acute changes, awake, looks comfortable, no fevers, nad Objective Vital Signs Date Time Temp Pulse Resp B/P Pulse Ox O2 Delivery O2 Flow Rate FiO2 08/18/16 10:12 Nasal Cannula 3.0 08/18/16 08:32 99 08/18/16 08:20 95 40 08/18/16 08:19 98.6 18 133/72 Intake and Output 08/17/16 08/17/16 08/18/16 15:00 23:00 07:00 Intake Total 720 ml 450 ml Output Total 900 ml 700 ml Balance -180 ml -250 ml Results/Medications Result Diagram: 08/16/16 0525 08/18/16 0514 Results 24 hrs Laboratory Tests Test 08/17/16 15:00 08/17/16 17:12 08/17/16 21:15 08/18/16 02:40 Vancomycin Level Trough 10.2 Bedside Glucose 192 230 H 116 Test 08/18/16 05:14 08/18/16 07:51 08/18/16 12:47 Anion Gap 12 Blood Urea Nitrogen 58 H Calcium Level 7.9 L Carbon Dioxide Level 32 H Chloride Level 95 L Creatinine 1.49 H Glucose Level 103 Potassium Level 4.1 Sodium Level 135 Bedside Glucose 111 211 Medications Current Medications Ondansetron HCl (Zofran Inj) 4 mg Q6H PRN IV NAUSEA AND/OR VOMITING; Start at 17:30 Acetaminophen (Tylenol Tab) 650 mg Q6H PRN PO PAIN LEVEL 1-3 OR FEVER; Start 08/13/16 at 17:30 Acetaminophen/ Hydrocodone Bitart (Sigurd (5/325)) 1 tab Q6H PRN PO MODERATE PAIN LEVEL 4-6; Start 08/13/16 at 17:30 Morphine Sulfate (morphine) 2 mg Q4H PRN IV SEVERE PAIN LEVEL 7-10 Last administered on 08/13/16at 17:58; Admin Dose 2 MG; Start 08/13/16 at 17:30 Docusate Sodium (Colace) 100 mg Q12H PRN PO CONSTIPATION; Start 08/13/16 at 17 :30 Famotidine (Pepcid) 20 mg Q12 PO Last administered on 08/18/16 09:36; Admin Dose 20 MG; Start 08/13/16 at 21:00 Heparin Sodium (Porcine) (Heparin (5000 Units/0.5 ml)) 5,000 unit Q12 SC Last administered on 08/18/16 09:39; Admin Dose 5,000 UNIT; Start 08/13/16 at 21:00 Allopurinol (Zyloprim) 100 mg DAILY PO Last administered on 08/18/16 09:36; Admin Dose 100 MG; Start 08/14/16 at 09:00 Ascorbic Acid (Vitamin C) 500 mg DAILY PO Last administered on 08/18/16 09:36 ; Admin Dose 500 MG; Start 08/13/16 at 18:00 Aspirin (Halfprin) 81 mg DAILY PO Last administered on 08/18/16 09:37; Admin Dose 81 MG; Start 08/14/16 at 09:00 Atorvastatin Calcium (Lipitor) 10 mg QHS PO Last administered on 08/17/16 21: 40; Admin Dose 10 MG; Start 08/13/16 at 21:00 Cholecalciferol (Vitamin D) 1,000 unit DAILY PO Last administered on 08/18/16 09:36; Admin Dose 1,000 UNIT; Start 08/14/16 at 09:00 Ferrous Sulfate (Ferrous Sulfate (Ec)) 325 mg BID PO Last administered on 09:37; Admin Dose 325 MG; Start 08/13/16 at 21:00 Fish Oil (Fish Oil) 1,000 mg DAILY PO Last administered on 08/18/16 09:36; Admin Dose 1,000 MG; Start 08/14/16 at 09:00 Insulin Glargine (Lantus) 12 unit QHS SC Last administered on 08/17/16 21:44; Admin Dose 12 UNIT; Start 08/13/16 at 21:00 Lactobacillus Acidoph/Bulgaricus (Floranex) 1 tab TID PO Last administered on 08/18/16 13:42; Admin Dose 1 TAB; Start 08/13/16 at 21:00 Metoprolol Tartrate (Lopressor) 12.5 mg BID PO Last administered on 08/18/16 09:42; Admin Dose 12.5 MG; Start 08/13/16 at 21:00 Pregabalin (Lyrica) 50 mg TID PO Last administered on 08/18/16 13:42; Admin Dose 50 MG; Start 08/13/16 at 21:00 Pyridoxine HCl (Vitamin B6) 100 mg DAILY PO Last administered on 08/18/16 09: 36; Admin Dose 100 MG; Start 08/14/16 at 09:00 Simethicone (Mylicon) 80 mg Q6H PRN PO INTESTINAL SPASMS/CRAMPING Last administered on 08/16/16 15:27; Admin Dose 80 MG; Start 08/13/16 at 17:30 Vitamin E (Vitamin E) 400 units DAILY PO Last administered on 08/18/16 09:37; Admin Dose 400 UNITS; Start 08/14/16 at 09:00 Fluoxetine HCl (Prozac) 20 mg DAILY PO Last administered on 08/18/16 09:36; Admin Dose 20 MG; Start 08/14/16 at 09:00 Miscellaneous Information 1 ea NOTE XX ; Start 08/13/16 at 18:00 Glucose (Glutose) 15 gm Q15M PRN PO DECREASED GLUCOSE; Start 08/13/16 at 18:00 Glucose (Glutose) 22.5 gm Q15M PRN PO DECREASED GLUCOSE; Start 08/13/16 at 18: 00 Dextrose (D50w Syringe) 25 ml Q15M PRN IV DECREASED GLUCOSE; Start 08/13/16 at 18:00 Dextrose (D50w Syringe) 50 ml Q15M PRN IV DECREASED GLUCOSE; Start 08/13/16 at 18:00 Glucagon (Glucagen) 1 mg Q15M PRN IM DECREASED GLUCOSE; Start 08/13/16 at 18: 00 Glucose 15 gm 15 gm Q15M PRN BUCCAL DECREASED GLUCOSE; Start 08/13/16 at 18:00 Vancomycin HCl/ Sodium Chloride (Vancocin/NS) 500 ml @ 125 mls/hr Q48H IVPB Last administered on 08/17/16 17:11; Admin Dose 125 MLS/HR; Start 08/15/16 at 16:00 Sodium Hypochlorite (Dakin'S (1/4 Strength)) 1 applic DAILY IRR Last administered on 08/18/16 09:35; Admin Dose 1 APPLIC; Start 08/13/16 at 20:00 Acetaminophen/ Hydrocodone Bitart (Sigurd (5/325)) 2 tab Q6H PRN PO MODERATE PAIN LEVEL 4-6 Last administered on 08/14/16at 13:03; Admin Dose 2 TAB; Start 08/14/16 at 13:00 IV Flush (NS 10 ml) 10 ml PRN PRN IV IV PTOTOCOL; Start 08/14/16 at 17:00 Bumetanide (Bumex) 1 mg 06,14 PO Last administered on 08/18/16at 14:15; Admin Dose 1 MG; Start 08/15/16 at 06:00 Acetylcysteine (Nac) 600 mg BID PO Last administered on 08/18/16at 09:37; Admin Dose 600 MG; Start 08/16/16 at 21:00 Ondansetron HCl (Zofran Inj) 4 mg Q4H PRN IV NAUSEA AND/OR VOMITING; Start 08/16/16 at 12:30 Zolpidem Tartrate (Ambien) 10 mg HS PRN PO INSOMNIA Last administered on at 21:40; Admin Dose 10 MG; Start 08/16/16 at 21:00 Lorazepam (Ativan) 1 mg Q6 PRN PO ANXIETY Last administered on 08/18/16at 14:37 ; Admin Dose 1 MG; Start 08/18/16 at 14:30 Assessment/Plan Chief Complaint/Hosp Course MICROBIOLOGY: Bld cx+ [facility] DIAGNOSTICS: MRI revealed cellulitis and osteomyelitis of the left first toe. ANTIMICROBIALS: Vancomycin and Rocephin. Urinalysis on admission was negative. PHYSICAL EXAMINATION: GENERAL: Obese, well-developed, middle-aged white man who is sitting in a chair. Patient is in no distress. HEENT: Head atraumatic, normocephalic. Sclerae anicteric. Buccal mucosa dry. NECK: Supple, trachea midline. CHEST: Rise symmetrical. Breath sounds clear, diminished to bases. HEART: S1, S2. ABDOMEN: Soft, bowel tones present. EXTREMITIES: Bilateral Patrick wraps. ASSESSMENT: 1. Bilateral lower extremities acute on chronic cellulitis with chronic venous stasis and left toe osteomyelitis. 2. Systemic inflammatory response syndrome 2 to above. 3. Septicemia==>KENAN 4. Questionable pneumonia as per chest x-ray. 5. Morbid obesity. 6. Atrial fibrillation, chronic. 7. Chronic kidney disease. 8. PAD==> s/p angiogram PLAN: Clinically stable, will repeat bld cx, continue abx, f/u podiatry/ vascular rec-s, consider treating with IV abx for 6 weeks [facility] staff Problems: JAMEY VAZQUEZ NP Aug 18, 2016 14:40
[2016-08-18] MEDS: ALBUTEROL/IPRATROPIUM (NEB) 3 ML AMP HHN PRN ×2 (16:23→22:18)
--- NOTE | 2016-08-18 16:51 | RADRPT ---
PROCEDURE: XR Chest. CLINICAL INDICATION: Shortness of breath TECHNIQUE: Chest AP portable. COMPARISON: 08/15/2016 FINDINGS: Right arm PICC line with tip in mid superior vena cava The mediastinal structures are unremarkable. There is calcification of the thoracic aorta (consiste nt with atherosclerosis). There is moderate cardiomegaly. There is a decrease in the pulmonary shaka ous hypertension. There is no change in the RLL consolidation / atelectasis. There is a decrease in the LLL patchy consolidation. There is a small right pleural effusion. There are senescent change s of the axial skeleton. IMPRESSION: Calcification of the thoracic aorta (consistent with atherosclerosis) Moderate cardiomegaly Decrease in pulmonary venous hypertension No change in RLL consolidation / atelectasis Small right pleural effusion Decrease in LLL patchy consolidation RPTAT: HGDB .Jaya Vázquez MD, MD Date Time Electronically viewed and signed by .Jaya Vázquez MD, on 08/18/2016 16:51 .B/
[2016-08-18 17:06] LABS: AADO2 Arterial 102.7 mmHg (7.0-24.0); Allen Test ACCEPTAB; Arterial Base Excess 3.3 mmol/L (-3.0-3); Arterial COHb 0.2 % (0.0-3.0); Arterial Fraction of Oxyhgb 95.5 % (93.0-99.0); Arterial HCO3 28.2 mmol/L (22.0-26.0); Arterial MetHb 0.1 % (0.0-1.5); Arterial Total Hemglobin 10.7 g/dl (12.0-18.0); MODE NASAL CANNULA
[2016-08-18] MEDS: ATORVASTATIN 10 MG TAB PO SCH (21:04)
[2016-08-18] MEDS: INSULIN GLARGINE [LANtus] 3 ML PEN SC SCH (21:21)
[2016-08-18] MEDS: ZOLPIDEM 5 MG TAB PO PRN (22:09)
[2016-08-19 01:30] VITALS: PULSE 90
[2016-08-19 03:30] VITALS: PULSE 89
[2016-08-19] MEDS ORDERED: ALTEPLASE (CATHFLO) 2 MG INJ CATHETER SCH (05:30)
[2016-08-19] MEDS: BUMETANIDE 1 MG TAB PO SCH ×2 (05:53→13:14)
[2016-08-19] MEDS ORDERED: ALTEPLASE (CATHFLO) 2 MG INJ CATHETER ONE (06:00)
[2016-08-19 06:17] LABS: POTASSIUM 4.2 mmol/L (3.5-5.1)
[2016-08-19 06:18] LABS: BASOPHIL # 0.1 10^3/ul (0.0-0.1); BASOPHILS % 0.9 % (0.0-2.0); EOSINOPHILS # 1.3 10^3/ul (0.0-0.5); EOSINOPHILS % 14.8 % (0.0-7.0); HEMATOCRIT 29.5 % (42.0-52.0); HEMOGLOBIN 9.5 g/dl (14.0-18.0); LYMPHOCYTES # 1.1 10^3/ul (0.8-2.9); LYMPHOCYTES % 12.5 % (15.0-51.0); MEAN CORPUSCULAR HEMOGLOBIN 24.8 pg (29.0-33.0); MEAN CORPUSCULAR HGB CONC 32.2 g/dl (32.0-37.0); MEAN CORPUSCULAR VOLUME 76.9 fl (82.0-101.0); MONOCYTE # 0.7 10^3/ul (0.3-0.9); MONOCYTES % 8.2 % (0.0-11.0); NEUTROPHIL # 5.7 10^3/ul (1.6-7.5); NEUTROPHILS % 63.6 % (39.0-77.0); PLATELET COUNT 299 10^3/UL (140-440); RED BLOOD COUNT 3.84 10^6/ul (4.70-6.10); RED CELL DISTRIBUTION WIDTH 21.7 % (11.5-14.5); UNCORRECTED WBC 8.9 10^3/ul (4.8-10.8); WHITE BLOOD COUNT 8.9 10^3/ul (4.8-10.8)
[2016-08-19 06:20] LABS: CREATININE 1.4 mg/dl (0.61-1.24)
[2016-08-19 06:21] LABS: CALCIUM 8.3 mg/dl (8.4-10.2)
[2016-08-19 06:31] LABS: CONDITION 1; LH ANALYZER COMMENTS 1
[2016-08-19 08:00] VITALS: BP 163/74; PULSE 77; RESP 18
[2016-08-19] MEDS: ALLOPURINOL 100 MG TAB PO SCH (08:28)
[2016-08-19] MEDS: VITAMIN E 400 UNITS CAP PO SCH (08:28)
[2016-08-19] MEDS: ASCORBIC ACID 500 MG TAB PO SCH (08:28)
[2016-08-19] MEDS: LACTOBACILLUS CHEW TAB PO SCH ×3 (08:28→20:50)
[2016-08-19] MEDS: FERROUS SULFATE (EC) 325 MG TAB PO SCH ×2 (08:28→20:49)
[2016-08-19] MEDS: FLUOXETINE 20 MG CAP PO SCH (08:28)
[2016-08-19] MEDS: PREGABALIN 25 MG CAP PO SCH ×3 (08:28→20:49)
[2016-08-19] MEDS: FAMOTIDINE 20 MG TAB PO SCH ×2 (08:28→20:51)
[2016-08-19] MEDS: FISH OIL 1,000 MG CAP PO SCH (08:28)
[2016-08-19] MEDS: PYRIDOXINE 50 MG TAB PO SCH (08:29)
[2016-08-19] MEDS: CHOLECALCIFEROL 1,000 UNIT TAB PO SCH (08:30)
[2016-08-19] MEDS: METOPROLOL 25 MG TAB PO SCH ×2 (08:30→20:52)
[2016-08-19] MEDS: ASPIRIN (EC) 81 MG TAB PO SCH (08:30)
[2016-08-19] MEDS: ACETYLCYSTEINE 600 MG CAP PO SCH ×2 (08:30→20:51)
[2016-08-19] MEDS: HEPARIN 5,000 UNIT/0.5 ML SYG SC SCH ×2 (08:32→20:59)
[2016-08-19] MEDS: INSULIN ASPART [NOVOLOG] 3 ML PEN SC SCH ×4 (08:32→20:58)
--- NOTE | 2016-08-19 08:42 | PN ---
Date/Time of Note Date/Time of Note DATE: 08/19/16 TIME: 08:39 Assessment/Plan VTE Prophylaxis VTE Prophylaxis Intervention: heparin Lines/Catheters IV Catheter Type (from Nrsg): PICC Line Central line still needed: Yes Assessment/Plan Assessment/Plan 60 yo male with a past medical history of type II DM, previous osteomyelitis, essential hypertension, atrial fibrillation, CHF with diastolic dysfunction, gout, morbid obesity, peripheral vascular disease, depression, CKD and chronic respiratory failure who came in for worsening left greater toe swelling and redness. 1. Left greater toe - osteomyelitis/cellulitis - PICC line for peace officer antibiotics, f/u podiatry recs - IV antibiotics 6 weeks - angiogram completed - no intervention as per vascular 2. Leukocytosis - 2/2 #1, monitor acute changes - improved/resolved 3. Respiratory failure - continue with supplemental O2, ABG worsening PCo2 - steroids and intermittent BiPAP - well obtain a CT chest defer to pulm 4. Acute on Chronic Kidney Disease - avoid nephrotoxins, renally adjust medications - 2/2 to ATN - appreciate nephro recs 5. CHF diastolic dysfunction - stable continue with lasix, aspirin 6. Type II DM - recent hgba1c is 5.8, carb controlled/renal/cardiac diet, ISS 7. Essential hypertension - c/w BB, hold ACEI/ARB 2/2 to renal dysfunction, hydralazine prn for SBP > 160 8. Atrial Fibrillation - rate controlled - continue with heparin 9. Dyslipidemia - continue with statin 10. Gout - continue with allopurinol 11. Depression - continue SSRI 12. Morbid obesity - needs dietary consult 13. Anemia - acute on chronic - check iron profile, occult blood - transfuse if hgb < 8 g/dL 14. GI ppx - pepcid 15. DVT ppx - heparin dispo - f/u recs, PICC line insertion, monitor acute changes, once the patient has decreased O2 demand to baseline this progress note took greater than 30 minutes to complete Subjective 24 Hr Interval Summary Free Text/Dictation Patient overnight had no events. Yesterday he had some difficulty breathing, but improved with breathing treatment. Spoke to him in regards to his medications and O2 demand. 15 minutes spent. Exam/Review of Systems Vital Signs Vitals Vital Signs Date Time Temp Pulse Resp B/P Pulse Ox O2 Delivery O2 Flow Rate FiO2 08/19/16 04:41 95 4.0 12/4/16 03:30 89 40 08/18/16 22:23 22 08/18/16 21:00 Nasal Cannula 08/18/16 20:00 97.8 139/71 Intake and Output 08/18/16 08/18/16 08/19/16 14:59 22:59 06:59 Intake Total 1440 ml 300 ml Output Total 800 ml 575 ml Balance 640 ml -275 ml Exam Gen [place]: mild respiratory distress, AAOx4, morbidly obese male HEENT: NC/AT, PERRLA, EOMI, no pharyngeal erythema, no tonsillar exudates, no lymphadenopathy, no JVD, no carotid bruits NECK: supple, no thyromegaly THORAX: symmetrical, no obvious deformities CV: S1S2, RRR, II/ systolic murmur best heard over the apex Lungs: diminished breath sounds to the bases bilaterally, no wheezing - mild right basilar rhonchi/end expiratory wheezing Abd: soft, NT/ND, +BS, no rebound, no guarding, neg HSM, protuberant EXT: 2+ pitting edema, skin sloughing noted, left greater toe with surrounding erythema/edema, scattered petechiae upper extremities, easily bruisability, with adolfo wraps bilaterally Neuro: CN II-XII grossly intact, decreased proprioception bilateral lower extremities Psych: fair mood and affect Skin: see extremities Results Result Diagram: 08/19/16 0509 08/19/16 0509 Results 24 hrs Laboratory Tests Test 08/18/16 12:47 08/18/16 16:27 08/18/16 17:12 08/18/16 21:03 Bedside Glucose 211 235 H 196 Arterial Blood HCO3 28.2 H Arterial Blood Base Excess 3.3 H Arterial Blood Oxygen Saturation 95.8 Khoi Test ACCEPTAB Arterial Blood Gas Puncture Site Left Radial Arterial Blood Carboxyhemoglobin 0.2 Arterial Blood Date Drawn 08/18/2016 4:55:00 PM Arterial Blood Methemoglobin 0.1 Arterial Blood pCO2 (Temp correct) 44.1 Arterial Blood pH (Temp corrected) 7.423 Arterial Blood pO2 (Temp corrected) 81.1 Blood Gas A-a O2 Differential 102.7 H Blood Gas Critical Value Read Back Nicki AUGUST R.N Blood Gas Modality NASAL CANNULA Blood Gas Notified Time 08/18/2016 5:06:45 PM Blood Gas Notified Whom MM Blood Gas Specimen Source Blood arterial Blood Gas Temperature 37.0 FiO2 33.0 Oxyhemoglobin Percent 95.5 Total Hemoglobin 10.7 L Test 08/19/16 05:09 08/19/16 07:37 Anion Gap 14 Basophils # 0.1 Basophils % 0.9 Blood Morphology Comment Blood Urea Nitrogen 54 H Calcium Level 8.3 L Carbon Dioxide Level 30 Chloride Level 94 L Creatinine 1.40 H Eosinophils # 1.3 H Eosinophils % 14.8 H Glucose Level 159 Hematocrit 29.5 L Hemoglobin 9.5 L Lymphocytes # 1.1 Lymphocytes % 12.5 L Mean Corpuscular Hemoglobin 24.8 L Mean Corpuscular Hemoglobin Concent 32.2 Mean Corpuscular Volume 76.9 L Mean Platelet Volume 8.0 Monocytes # 0.7 Monocytes % 8.2 Neutrophils # 5.7 Neutrophils % 63.6 Nucleated Red Blood Cells # 0.0 Nucleated Red Blood Cells % 0.0 Platelet Count 299 Potassium Level 4.2 Red Blood Count 3.84 L Red Cell Distribution Width 21.7 H Sodium Level 134 L White Blood Count 8.9 Bedside Glucose 150 Medications Medications Current Medications Acetaminophen (Tylenol Tab) 650 mg Q6H PRN PO PAIN LEVEL 1-3 OR FEVER; Start 08/13/16 at 17:30 Acetaminophen/ Hydrocodone Bitart (Goldvein (5/325)) 1 tab Q6H PRN PO MODERATE PAIN LEVEL 4-6; Start 08/13/16 at 17:30 Morphine Sulfate (morphine) 2 mg Q4H PRN IV SEVERE PAIN LEVEL 7-10 Last administered on 08/13/16at 17:58; Admin Dose 2 MG; Start 08/13/16 at 17:30 Docusate Sodium (Colace) 100 mg Q12H PRN PO CONSTIPATION; Start 08/13/16 at 17 :30 Famotidine (Pepcid) 20 mg Q12 PO Last administered on 08/18/16at 21:05; Admin Dose 20 MG; Start 08/13/16 at 21:00 Heparin Sodium (Porcine) (Heparin (5000 Units/0.5 ml)) 5,000 unit Q12 SC Last administered on 08/18/16at 21:25; Admin Dose 5,000 UNIT; Start 08/13/16 at 21:00 Allopurinol (Zyloprim) 100 mg DAILY PO Last administered on 08/18/16 09:36; Admin Dose 100 MG; Start 08/14/16 at 09:00 Ascorbic Acid (Vitamin C) 500 mg DAILY PO Last administered on 08/18/16 09:36 ; Admin Dose 500 MG; Start 08/13/16 at 18:00 Aspirin (Halfprin) 81 mg DAILY PO Last administered on 08/18/16 09:37; Admin Dose 81 MG; Start 08/14/16 at 09:00 Atorvastatin Calcium (Lipitor) 10 mg QHS PO Last administered on 08/18/16 21: 04; Admin Dose 10 MG; Start 08/13/16 at 21:00 Cholecalciferol (Vitamin D) 1,000 unit DAILY PO Last administered on 08/18/16 09:36; Admin Dose 1,000 UNIT; Start 08/14/16 at 09:00 Ferrous Sulfate (Ferrous Sulfate (Ec)) 325 mg BID PO Last administered on 21:05; Admin Dose 325 MG; Start 08/13/16 at 21:00 Fish Oil (Fish Oil) 1,000 mg DAILY PO Last administered on 08/18/16 09:36; Admin Dose 1,000 MG; Start 08/14/16 at 09:00 Insulin Glargine (Lantus) 12 unit QHS SC Last administered on 08/18/16 21:21; Admin Dose 12 UNIT; Start 08/13/16 at 21:00 Lactobacillus Acidoph/Bulgaricus (Floranex) 1 tab TID PO Last administered on 08/18/16 21:04; Admin Dose 1 TAB; Start 08/13/16 at 21:00 Metoprolol Tartrate (Lopressor) 12.5 mg BID PO Last administered on 08/18/16 21:05; Admin Dose 12.5 MG; Start 08/13/16 at 21:00 Pregabalin (Lyrica) 50 mg TID PO Last administered on 08/18/16 21:04; Admin Dose 50 MG; Start 08/13/16 at 21:00 Pyridoxine HCl (Vitamin B6) 100 mg DAILY PO Last administered on 08/18/16 09: 36; Admin Dose 100 MG; Start 08/14/16 at 09:00 Simethicone (Mylicon) 80 mg Q6H PRN PO INTESTINAL SPASMS/CRAMPING Last administered on 08/16/16at 15:27; Admin Dose 80 MG; Start 08/13/16 at 17:30 Vitamin E (Vitamin E) 400 units DAILY PO Last administered on 08/18/16at 09:37; Admin Dose 400 UNITS; Start 08/14/16 at 09:00 Fluoxetine HCl (Prozac) 20 mg DAILY PO Last administered on 08/18/16at 09:36; Admin Dose 20 MG; Start 08/14/16 at 09:00 Miscellaneous Information 1 ea NOTE XX ; Start 08/13/16 at 18:00 Glucose (Glutose) 15 gm Q15M PRN PO DECREASED GLUCOSE; Start 08/13/16 at 18:00 Glucose (Glutose) 22.5 gm Q15M PRN PO DECREASED GLUCOSE; Start 08/13/16 at 18: 00 Dextrose (D50w Syringe) 25 ml Q15M PRN IV DECREASED GLUCOSE; Start 08/13/16 at 18:00 Dextrose (D50w Syringe) 50 ml Q15M PRN IV DECREASED GLUCOSE; Start 08/13/16 at 18:00 Glucagon (Glucagen) 1 mg Q15M PRN IM DECREASED GLUCOSE; Start 08/13/16 at 18: 00 Glucose 15 gm 15 gm Q15M PRN BUCCAL DECREASED GLUCOSE; Start 08/13/16 at 18:00 Vancomycin HCl/ Sodium Chloride (Vancocin/NS) 500 ml @ 125 mls/hr Q48H IVPB Last administered on 08/17/16at 17:11; Admin Dose 125 MLS/HR; Start 08/15/16 at 16:00 Sodium Hypochlorite (Dakin'S (1/4 Strength)) 1 applic DAILY IRR Last administered on 08/18/16at 09:35; Admin Dose 1 APPLIC; Start 08/13/16 at 20:00 Acetaminophen/ Hydrocodone Bitart (Goldvein (5/325)) 2 tab Q6H PRN PO MODERATE PAIN LEVEL 4-6 Last administered on 08/14/16 13:03; Admin Dose 2 TAB; Start 08/14/16 at 13:00 IV Flush (NS 10 ml) 10 ml PRN PRN IV IV PTOTOCOL; Start 08/14/16 at 17:00 Bumetanide (Bumex) 1 mg 06,14 PO Last administered on 08/19/16 05:53; Admin Dose 1 MG; Start 08/15/16 at 06:00 Acetylcysteine (Nac) 600 mg BID PO Last administered on 08/18/16at 21:04; Admin Dose 600 MG; Start 08/16/16 at 21:00 Ondansetron HCl (Zofran Inj) 4 mg Q4H PRN IV NAUSEA AND/OR VOMITING; Start 08/16/16 at 12:30 Zolpidem Tartrate (Ambien) 10 mg HS PRN PO INSOMNIA Last administered on at 22:09; Admin Dose 10 MG; Start 08/16/16 at 21:00 Lorazepam (Ativan) 1 mg Q6 PRN PO ANXIETY Last administered on 08/18/16at 14:37 ; Admin Dose 1 MG; Start 08/18/16 at 14:30 Alteplase, Recombinant (Cathflo (Activase)) 2 mg ONCE CATHETER Last administered on 08/19/16 05:45; Admin Dose 2 MG; Start 08/19/16 at 05:30; Stop 08/19/16 at 12:00 KELLEN MEDNIA MD Aug 19, 2016 08:41
[2016-08-19] MEDS: SODIUM HYPOCHLORITE 0.125% 473 ML BTL IRR SCH (08:44)
--- NOTE | 2016-08-19 10:13 | PN ---
Date/Time of Note Date/Time of Note DATE: 08/19/16 TIME: 10:07 Assessment/Plan Lines/Catheters IV C[facility]ter Type (from [facility]): PICC Line Assessment/Plan Chief Complaint/Hosp Course -Bilateral lower extremity venous insufficiency with history of stasis ulcer. It seems the patient has a mixed arterial and venous disease. At the moment, the patient will require to undergo bilateral lower extremity venous reflux studies in order to evaluate the patient's superficial and deep venous reflux. The patient has had a history of right lower extremity venous ablation that was done at outside location. 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 It seems the patient has developed a left first toe gangrene despite his wound care. Upon his angiogram he does have severe bilateral pedal disease. No further intervention from vascular standpoint as he has no bypass options to improve perfusion. Recommend wound care and evaluation for Hyperbaric Management if possible. He may need amputation/debridement of the first toe -Will follow as outpt -Continue with our 2 or 3-layer compression; however, I am concerned with our compression therapy. -Continue with either applying Santyl to his first toe gangrene site or Betadine paint. -Optimize vascular status (BP meds, diet, nutrition, exercise, weight loss, antiplatelet, sugar control). -Discussed findings, plan, and management with the patient and he understands. -Thank you for allowing us to partake in the care of your patient. Please call with any questions. Problems: Subjective 24 Hr Interval Summary no new vascular events overnight Exam/Review of Systems Vital Signs Vitals Vital Signs Date Time Temp Pulse Resp B/P Pulse Ox O2 Delivery O2 Flow Rate FiO2 08/19/16 08:00 97.7 77 18 163/74 91 Nasal Cannula 4.0 08/19/16 03:30 40 Intake and Output 08/18/16 08/18/16 08/19/16 15:00 23:00 07:00 Intake Total 1440 ml 300 ml Output Total 800 ml 575 ml Balance 640 ml -275 ml Exam Free Text/Dictation GENERAL: Alert and oriented x3, PULMONARY: Clear to auscultation bilaterally, CARDIOVASCULAR: S1, S2 present. ABDOMEN: Soft, nontender, nondistended. Bowel sounds positive. Large truncal obesity and the large pannus. EXTREMITIES: RIGHT LOWER EXTREMITY: Unable to palpate the right femoral pulse secondary to body habitus, nonpalpable pedal pulse. Motor, sensory intact. Capillary refill 3 seconds. The patient has 2-layer compression dressing also intact which was removed for evaluation. He does have edema of 2+. dry 1st toe plantar callous over a previous ulcer LEFT LOWER EXTREMITY: Palpable femoral pulse, difficult to obtain secondary to body habitus. Nonpalpable pedal pulse. Motor, sensory intact. Cap refill 3 to 4 seconds. First toe gangrene. Edema 2+, 2-layer compression is intact and was removed for evaluation. Results Result Diagram: 08/19/16 0509 08/19/16 0509 JOSE ANGEL RIOS MD Aug 19, 2016 10:13
[2016-08-19] MEDS: VANCOMYCIN 1 GM in NS 250 ML IVPB SCH (12:41)
[2016-08-19] MEDS: ALBUTEROL/IPRATROPIUM (NEB) 3 ML AMP HHN PRN (12:42)
--- NOTE | 2016-08-19 15:19 | CONS ---
Date/Time of Note Date/Time of Note DATE: 08/19/16 TIME: 15:05 Assessment/Plan Assessment/Plan Chief Complaint/Hosp Course ID PROGRESS NOTE 24H INTERVAL SUMMARY * Stable, VSS, WBC * Notes reviewed: Recommend wound care and evaluation for Hyperbaric Management if possible. He may need amputation/debridement of the first toe * MICROBIOLOGY: Bld cx+ KENAN / Urinalysis on admission was negative. * DIAGNOSTICS: MRI revealed cellulitis and osteomyelitis of the left first toe. * ANTIMICROBIALS: Vancomycin and Rocephin. PHYSICAL EXAMINATION: GENERAL: Overweight M, OOB-> Chair, VSS, NAD HEENT: Unremarkable NECK: Supple, trachea midline. CHEST: Rise symmetrical. ABDOMEN: Soft, EXTREMITIES: Bilateral Patrick wraps. ID ASSESSMENT: 1. Bilateral lower extremities acute on chronic cellulitis with chronic venous stasis and left toe osteomyelitis. 2. Systemic inflammatory response syndrome 2 to above. 3. Septicemia==>KENAN 4. Questionable pneumonia as per chest x-ray. 5. Morbid obesity. 6. Atrial fibrillation, chronic. 7. Chronic kidney disease. 8. PAD==> s/p angiogram ID PLAN: Continue IV ABX anticipate 6 weeks minimum. => Per notes = Wound care w/Hyperbaric Tx vs future amputation . Problems: Consultation Date/Type/Reason Admit Date/Time Aug 13, 2016 at 16:30 Initial Consult Date 08/13/16 Type of Consultation: ID Referring Provider: KELLEN MEDINA MD Exam/Review of Systems Vital Signs Vitals Vital Signs Date Time Temp Pulse Resp B/P Pulse Ox O2 Delivery O2 Flow Rate FiO2 08/19/16 12:42 94 4.0 36 08/19/16 12:42 20 20 08/19/16 08:00 97.7 163/74 Nasal Cannula Intake and Output 08/18/16 08/18/16 08/19/16 15:00 23:00 07:00 Intake Total 1440 ml 300 ml Output Total 800 ml 575 ml Balance 640 ml -275 ml Results Result Diagram: 08/19/16 0509 08/19/16 0509 Results 24 hrs Laboratory Tests Test 08/18/16 16:27 08/18/16 17:12 08/18/16 21:03 08/19/16 05:09 Arterial Blood HCO3 28.2 H Arterial Blood Base Excess 3.3 H Arterial Blood Oxygen Saturation 95.8 Khoi Test ACCEPTAB Arterial Blood Gas Puncture Site Left Radial Arterial Blood Carboxyhemoglobin 0.2 Arterial Blood Date Drawn 08/18/2016 4:55:00 PM Arterial Blood Methemoglobin 0.1 Arterial Blood pCO2 (Temp correct) 44.1 Arterial Blood pH (Temp corrected) 7.423 Arterial Blood pO2 (Temp corrected) 81.1 Blood Gas A-a O2 Differential 102.7 H Blood Gas Critical Value Read Back Nicki AUGUST R.N Blood Gas Modality NASAL CANNULA Blood Gas Notified Time 08/18/2016 5:06:45 PM Blood Gas Notified Whom MM Blood Gas Specimen Source Blood arterial Blood Gas Temperature 37.0 FiO2 33.0 Oxyhemoglobin Percent 95.5 Total Hemoglobin 10.7 L Bedside Glucose 235 H 196 Anion Gap 14 Basophils # 0.1 Basophils % 0.9 Blood Morphology Comment Blood Urea Nitrogen 54 H Calcium Level 8.3 L Carbon Dioxide Level 30 Chloride Level 94 L Creatinine 1.40 H Eosinophils # 1.3 H Eosinophils % 14.8 H Glucose Level 159 Hematocrit 29.5 L Hemoglobin 9.5 L Lymphocytes # 1.1 Lymphocytes % 12.5 L Mean Corpuscular Hemoglobin 24.8 L Mean Corpuscular Hemoglobin Concent 32.2 Mean Corpuscular Volume 76.9 L Mean Platelet Volume 8.0 Monocytes # 0.7 Monocytes % 8.2 Neutrophils # 5.7 Neutrophils % 63.6 Nucleated Red Blood Cells # 0.0 Nucleated Red Blood Cells % 0.0 Platelet Count 299 Potassium Level 4.2 Red Blood Count 3.84 L Red Cell Distribution Width 21.7 H Sodium Level 134 L White Blood Count 8.9 Test 08/19/16 07:37 08/19/16 11:34 Bedside Glucose 150 177 Medications Medications Current Medications Acetaminophen (Tylenol Tab) 650 mg Q6H PRN PO PAIN LEVEL 1-3 OR FEVER; Start 08/13/16 at 17:30 Acetaminophen/ Hydrocodone Bitart ([place] (5/325)) 1 tab Q6H PRN PO MODERATE PAIN LEVEL 4-6; Start 08/13/16 at 17:30 Morphine Sulfate (morphine) 2 mg Q4H PRN IV SEVERE PAIN LEVEL 7-10 Last administered on 08/13/16at 17:58; Admin Dose 2 MG; Start 08/13/16 at 17:30 Docusate Sodium (Colace) 100 mg Q12H PRN PO CONSTIPATION; Start 08/13/16 at 17 :30 Famotidine (Pepcid) 20 mg Q12 PO Last administered on 08/19/16 08:28; Admin Dose 20 MG; Start 08/13/16 at 21:00 Heparin Sodium (Porcine) (Heparin (5000 Units/0.5 ml)) 5,000 unit Q12 SC Last administered on 08/19/16 08:32; Admin Dose 5,000 UNIT; Start 08/13/16 at 21:00 Allopurinol (Zyloprim) 100 mg DAILY PO Last administered on 08/19/16 08:28; Admin Dose 100 MG; Start 08/14/16 at 09:00 Ascorbic Acid (Vitamin C) 500 mg DAILY PO Last administered on 08/19/16 08:28 ; Admin Dose 500 MG; Start 08/13/16 at 18:00 Aspirin (Halfprin) 81 mg DAILY PO Last administered on 08/19/16 08:30; Admin Dose 81 MG; Start 08/14/16 at 09:00 Atorvastatin Calcium (Lipitor) 10 mg QHS PO Last administered on 08/18/16 21: 04; Admin Dose 10 MG; Start 08/13/16 at 21:00 Cholecalciferol (Vitamin D) 1,000 unit DAILY PO Last administered on 08/19/16 08:30; Admin Dose 1,000 UNIT; Start 08/14/16 at 09:00 Ferrous Sulfate (Ferrous Sulfate (Ec)) 325 mg BID PO Last administered on 08:28; Admin Dose 325 MG; Start 08/13/16 at 21:00 Fish Oil (Fish Oil) 1,000 mg DAILY PO Last administered on 08/19/16 08:28; Admin Dose 1,000 MG; Start 08/14/16 at 09:00 Insulin Glargine (Lantus) 12 unit QHS SC Last administered on 08/18/16 21:21; Admin Dose 12 UNIT; Start 08/13/16 at 21:00 Lactobacillus Acidoph/Bulgaricus (Floranex) 1 tab TID PO Last administered on 08/19/16 12:42; Admin Dose 1 TAB; Start 08/13/16 at 21:00 Metoprolol Tartrate (Lopressor) 12.5 mg BID PO Last administered on 08/19/16 08:30; Admin Dose 12.5 MG; Start 08/13/16 at 21:00 Pregabalin (Lyrica) 50 mg TID PO Last administered on 08/19/16 13:14; Admin Dose 50 MG; Start 08/13/16 at 21:00 Pyridoxine HCl (Vitamin B6) 100 mg DAILY PO Last administered on 08/19/16 08: 29; Admin Dose 100 MG; Start 08/14/16 at 09:00 Simethicone (Mylicon) 80 mg Q6H PRN PO INTESTINAL SPASMS/CRAMPING Last administered on 08/16/16 15:27; Admin Dose 80 MG; Start 08/13/16 at 17:30 Vitamin E (Vitamin E) 400 units DAILY PO Last administered on 08/19/16 08:28; Admin Dose 400 UNITS; Start 08/14/16 at 09:00 Fluoxetine HCl (Prozac) 20 mg DAILY PO Last administered on 08/19/16 08:28; Admin Dose 20 MG; Start 08/14/16 at 09:00 Miscellaneous Information 1 ea NOTE XX ; Start 08/13/16 at 18:00 Glucose (Glutose) 15 gm Q15M PRN PO DECREASED GLUCOSE; Start 08/13/16 at 18:00 Glucose (Glutose) 22.5 gm Q15M PRN PO DECREASED GLUCOSE; Start 08/13/16 at 18: 00 Dextrose (D50w Syringe) 25 ml Q15M PRN IV DECREASED GLUCOSE; Start 08/13/16 at 18:00 Dextrose (D50w Syringe) 50 ml Q15M PRN IV DECREASED GLUCOSE; Start 08/13/16 at 18:00 Glucagon (Glucagen) 1 mg Q15M PRN IM DECREASED GLUCOSE; Start 08/13/16 at 18: 00 Glucose (Glutose) 15 gm Q15M PRN BUCCAL DECREASED GLUCOSE; Start 08/13/16 at 18:00 Sodium Hypochlorite (Dakin'S (1/4 Strength)) 1 applic DAILY IRR Last administered on 08/19/16 08:44; Admin Dose 1 APPLIC; Start 08/13/16 at 20:00 Acetaminophen/ Hydrocodone Bitart ([place] (5/325)) 2 tab Q6H PRN PO MODERATE PAIN LEVEL 4-6 Last administered on 08/14/16 13:03; Admin Dose 2 TAB; Start 08/14/16 at 13:00 IV Flush (NS 10 ml) 10 ml PRN PRN IV IV PTOTOCOL; Start 08/14/16 at 17:00 Bumetanide (Bumex) 1 mg 06,14 PO Last administered on 08/19/16at 13:14; Admin Dose 1 MG; Start 08/15/16 at 06:00 Acetylcysteine (Nac) 600 mg BID PO Last administered on 08/19/16at 08:30; Admin Dose 600 MG; Start 08/16/16 at 21:00 Ondansetron HCl (Zofran Inj) 4 mg Q4H PRN IV NAUSEA AND/OR VOMITING; Start 08/16/16 at 12:30 Zolpidem Tartrate (Ambien) 10 mg HS PRN PO INSOMNIA Last administered on 22:09; Admin Dose 10 MG; Start 08/16/16 at 21:00 Lorazepam 1 mg 1 mg Q6 PRN PO ANXIETY Last administered on 08/18/16at 14:37; Admin Dose 1 MG; Start 08/18/16 at 14:30 Vancomycin HCl (Vancocin) 250 ml @ 125 mls/hr Q24H IVPB Last administered on 08/19/16 12:41; Admin Dose 125 MLS/HR; Start 08/19/16 at 12:00 JARED SALCEDO NP Aug 19, 2016 15:18
--- NOTE | 2016-08-19 19:38 | CONS ---
DATE OF ADMISSION: 08/13/2016 DATE OF CONSULTATION: 08/19/2016 TYPE OF CONSULTATION: Pulmonary. PRIMARY PHYSICIAN: Dr. Medina. REASON FOR CONSULTATION: Shortness of breath. HISTORY OF PRESENT ILLNESS: Briefly, this is a 60-year-old gentleman with multiple medical problems including diabetes, osteomyelitis, hypertension, AFib, congestive heart failure with known diastoli c dysfunction, obesity, peripheral vascular disease, CKD, prior respiratory failure, status post tra cheostomy, now most recently decannulated, admitted on the for osteomyelitis involving his left toe. His course more recently has been complicated by worsening respiratory insufficiency with elza h[place] concerning for both an element of possible COPD exacerbation versus heart failure. Currently, he states that he is having dyspnea with mild exertion as well as orthopnea. PAST MEDICAL HISTORY: As noted above. MEDICATIONS: Please see MAR. ALLERGIES: None. FAMILY HISTORY: None. REVIEW OF SYSTEMS: As noted in the HPI. PHYSICAL EXAMINATION: VITAL SIGNS: Heart rate is 94, irregularly irregular, blood pressure 163/74, oxygen saturation 94% on 4 liters nasal cannula. HEENT: Normocephalic, atraumatic. NECK: Supple. Jugular venous pressures are mildly elevated. CARDIOVASCULAR: Irregularly irregular, S1 and S2 with a II/ systolic murmur. CHEST: Faint bibasilar crackles, right more than left base, with slightly decreased breath sounds a t the right base. ABDOMEN: Obese, nontender. EXTREMITIES: There is 2+ lower extremity edema with SEYMOUR hose stockings and dressings in place on th e left toe. LABORATORY DATA: WBC is 8.9, hemoglobin 9.5. BUN is 54, creatinine is 1.4. ABG latest pH was 7.42 , pCO2 is 44, pO2 of 81. This is on 3 liters. Chest x-ray shows evidence of pulmonary venous conge stion with some fluid in the minor fissure on the right side and some right basilar atelectasis that appears to be chronic. IMPRESSION: Mild hypoxemic/hypercapnic respiratory insufficiency in a patient with multiple medical problems as described above. The most likely etiology to his respiratory insufficiency is likely v olume overload, less likely a component of a chronic obstructive pulmonary disease exacerbation. RECOMMENDATIONS: 1. To resume diuretics with Bumex. 2. Follow creatinine, strict I's and O's, and daily weights. 3. Taper off systemic corticosteroids. Dictated By: GEOVANNA SANTACRUZ MD NK/GREGORY Conf#: [id number] DID#: [id number] CC: KELLEN MEDINA MD; EDNA BUSTILLO MD;*End*
[2016-08-19 20:00] VITALS: BP 139/65; PULSE 76; RESP 18
[2016-08-19] MEDS: ATORVASTATIN 10 MG TAB PO SCH (20:49)
[2016-08-19] MEDS: INSULIN GLARGINE [LANtus] 3 ML PEN SC SCH (20:59)
[2016-08-19] MEDS: ZOLPIDEM 5 MG TAB PO PRN (21:44)
[2016-08-19] MEDS: ALBUTEROL/IPRATROPIUM (NEB) 3 ML AMP HHN SCH (21:48)
[2016-08-19 22:02] VITALS: PULSE 89
[2016-08-19 23:48] VITALS: PULSE 91
[2016-08-20] MEDS: ALBUTEROL/IPRATROPIUM (NEB) 3 ML AMP HHN SCH ×6 (01:06→20:25)
[2016-08-20 01:07] VITALS: PULSE 85
[2016-08-20] MEDS: ACCUCHECK XX SCH (02:00)
[2016-08-20 03:05] VITALS: PULSE 84
[2016-08-20] MEDS: BUMETANIDE 1 MG TAB PO SCH ×2 (06:22→16:24)
[2016-08-20 08:00] VITALS: BP 142/74; PULSE 73; RESP 20
[2016-08-20 08:15] LABS: BASOPHILS % 0.5 % (0.0-2.0); EOSINOPHILS # 1.2 10^3/ul (0.0-0.5); EOSINOPHILS % 14.3 % (0.0-7.0); HEMATOCRIT 29.8 % (42.0-52.0); HEMOGLOBIN 9.6 g/dl (14.0-18.0); LYMPHOCYTES % 11.7 % (15.0-51.0); MEAN CORPUSCULAR HGB CONC 32.3 g/dl (32.0-37.0); MEAN CORPUSCULAR VOLUME 77.4 fl (82.0-101.0); MEAN PLATELET VOLUME 7.7 fl (7.4-10.4); MONOCYTE # 0.6 10^3/ul (0.3-0.9); MONOCYTES % 7.2 % (0.0-11.0); NEUTROPHIL # 5.7 10^3/ul (1.6-7.5); NEUTROPHILS % 66.3 % (39.0-77.0); PLATELET COUNT 294 10^3/UL (140-440); POTASSIUM 4.1 mmol/L (3.5-5.1); RED BLOOD COUNT 3.85 10^6/ul (4.70-6.10); RED CELL DISTRIBUTION WIDTH 20.5 % (11.5-14.5); UNCORRECTED WBC 8.6 10^3/ul (4.8-10.8); WHITE BLOOD COUNT 8.6 10^3/ul (4.8-10.8)
[2016-08-20] MEDS: INSULIN ASPART [NOVOLOG] 3 ML PEN SC SCH ×7 (08:15→21:33)
[2016-08-20 08:18] LABS: CREATININE 1.27 mg/dl (0.61-1.24)
[2016-08-20 08:19] LABS: CALCIUM 8.2 mg/dl (8.4-10.2)
[2016-08-20 08:24] LABS: CONDITION 1; LH ANALYZER COMMENTS 1
[2016-08-20] MEDS: PYRIDOXINE 50 MG TAB PO SCH (08:28)
[2016-08-20] MEDS: FAMOTIDINE 20 MG TAB PO SCH ×2 (08:28→21:27)
[2016-08-20] MEDS: ALLOPURINOL 100 MG TAB PO SCH (08:28)
[2016-08-20] MEDS: FLUOXETINE 20 MG CAP PO SCH (08:28)
[2016-08-20] MEDS: LACTOBACILLUS CHEW TAB PO SCH ×3 (08:28→21:27)
[2016-08-20] MEDS: CHOLECALCIFEROL 1,000 UNIT TAB PO SCH (08:28)
[2016-08-20] MEDS: ACETYLCYSTEINE 600 MG CAP PO SCH ×2 (08:28→21:27)
[2016-08-20] MEDS: VITAMIN E 400 UNITS CAP PO SCH (08:28)
[2016-08-20] MEDS: FERROUS SULFATE (EC) 325 MG TAB PO SCH ×2 (08:29→21:27)
[2016-08-20] MEDS: FISH OIL 1,000 MG CAP PO SCH (08:29)
[2016-08-20] MEDS: METOPROLOL 25 MG TAB PO SCH ×2 (08:29→21:27)
[2016-08-20] MEDS: ASPIRIN (EC) 81 MG TAB PO SCH (08:29)
[2016-08-20] MEDS: ASCORBIC ACID 500 MG TAB PO SCH (08:29)
[2016-08-20] MEDS ORDERED: BUME1TAB18 PO (08:31)
[2016-08-20] MEDS ORDERED: LANT3I SC (08:31)
[2016-08-20] MEDS ORDERED: OMEG1CAP55 PO (08:31)
[2016-08-20] MEDS: PREGABALIN 25 MG CAP PO SCH ×3 (08:31→21:27)
[2016-08-20] MEDS ORDERED: METO-448 PO (08:31)
[2016-08-20] MEDS ORDERED: Vancomycin Iv Per Pharmacy XX (08:31)
--- NOTE | 2016-08-20 08:45 | PN ---
Date/Time of Note Date/Time of Note DATE: 08/20/16 TIME: 08:38 Assessment/Plan VTE Prophylaxis VTE Prophylaxis Intervention: heparin Lines/Catheters IV Catheter Type (from Nrs): PICC Line Central line still needed: Yes Assessment/Plan Chief Complaint/Hosp Course Assessment and plan 1. Left greater toe osteomyelitis less cellulitis. Continue antibiotics. (Will need 6 weeks of antibiotics per ID). Patient assessed by vascular surgeon. Continue recommendations 2. Leukocytosis secondary to #1. At this time. Remains afebrile. Continue on antibiotics 3. Acute on chronic respiratory failure. Patient is reported to be oxygen dependent at home. Continue on O2 supplement. Titrate down start as tolerated. Continue BiPAP as needed. Pulmonary following. 4. Acute on chronic kidney disease. Diuretics renally dosed. For nephrotoxic medications possible. Continue with nephrology recommendations. 5. Congestive heart failure with diastolic dysfunction. Continue on diuretics. Aspirin 6. Type 2 diabetes. Patient was noted with recent A1c of 5.8. Continue on insulin siding scale. Continue carbohydrate controlled diet 7. Essential hypertension. Continue antihypertensives and adjust as needed 8. History of atrial fibrillation. Continue on heparin 9. Dyslipidemia. 10 statin 10. History of gout. Continue allopurinol 11. Major depression. Continue on SSRI 12. Morbid obesity. Weight reduction advised GERD prophylaxis: Pepcid DVT prophylaxis: Heparin Disposition and plan: Continue titrate down O2 as tolerated. Monitor renal function. Discharge when medically stable and cleared by consultants Discussed plan of care with Dr. Bowers Problems: Subjective 24 Hr Interval Summary Free Text/Dictation resting at this time sitting in chair. with reported better breathing. no acute distress noted Exam/Review of Systems Vital Signs Vitals Vital Signs Date Time Temp Pulse Resp B/P Pulse Ox O2 Delivery O2 Flow Rate FiO2 08/20/16 05:07 3.0 08/20/16 05:01 83 18 95 Nasal Cannula 08/20/16 03:05 35 08/19/16 20:00 98.6 139/65 Intake and Output 08/19/16 08/19/16 08/20/16 15:00 23:00 07:00 Intake Total 1510 ml 1150 ml Output Total 560 ml 875 ml Balance 950 ml 275 ml Exam General: No acute signs or symptoms of distress Eyes: pupils equal round, Anicteric sclera Neck: Supple nontender, no JVD Cardiac: S1, S2 auscultated, regular rhythm and rate Pulmonary: Diminished at lung bases. No obvious wheezing or rhonchi auscultated GI: Abdomen soft nontender nondistended, bowel sounds active Extremities: Edema seen bilateral lower extremities posterior Skin: [A stress bilateral lower extremities clean dry and intact. Brownish discoloration of bilateral lower extremities Neurologic: Alert to person place and time and situation Results Result Diagram: 08/19/16 0509 08/19/16 0509 Results 24 hrs Laboratory Tests Test 08/19/16 11:34 08/19/16 17:07 08/19/16 19:51 08/20/16 02:41 Bedside Glucose 177 246 H 231 H 158 Test 08/20/16 07:30 08/20/16 07:56 Anion Gap 11 Basophils # 0.0 Basophils % 0.5 Blood Morphology Comment Blood Urea Nitrogen 47 H Calcium Level 8.2 L Carbon Dioxide Level 32 H Chloride Level 94 L Creatinine 1.27 H Eosinophils # 1.2 H Eosinophils % 14.3 H Glucose Level 136 Hematocrit 29.8 L Hemoglobin 9.6 L Lymphocytes # 1.0 Lymphocytes % 11.7 L Mean Corpuscular Hemoglobin 25.0 L Mean Corpuscular Hemoglobin Concent 32.3 Mean Corpuscular Volume 77.4 L Mean Platelet Volume 7.7 Monocytes # 0.6 Monocytes % 7.2 Neutrophils # 5.7 Neutrophils % 66.3 Nucleated Red Blood Cells # 0.0 Nucleated Red Blood Cells % 0.0 Platelet Count 294 Potassium Level 4.1 Red Blood Count 3.85 L Red Cell Distribution Width 20.5 H Sodium Level 133 L White Blood Count 8.6 Bedside Glucose 138 Medications Medications Current Medications Acetaminophen (Tylenol Tab) 650 mg Q6H PRN PO PAIN LEVEL 1-3 OR FEVER; Start 08/13/16 at 17:30 Acetaminophen/ Hydrocodone Bitart ([place] (5/325)) 1 tab Q6H PRN PO MODERATE PAIN LEVEL 4-6; Start 08/13/16 at 17:30 Morphine Sulfate (morphine) 2 mg Q4H PRN IV SEVERE PAIN LEVEL 7-10 Last administered on 08/13/16at 17:58; Admin Dose 2 MG; Start 08/13/16 at 17:30 Docusate Sodium (Colace) 100 mg Q12H PRN PO CONSTIPATION; Start 08/13/16 at 17 :30 Famotidine (Pepcid) 20 mg Q12 PO Last administered on 08/19/16 20:51; Admin Dose 20 MG; Start 08/13/16 at 21:00 Heparin Sodium (Porcine) (Heparin (5000 Units/0.5 ml)) 5,000 unit Q12 SC Last administered on 08/19/16 20:59; Admin Dose 5,000 UNIT; Start 08/13/16 at 21:00 Allopurinol (Zyloprim) 100 mg DAILY PO Last administered on 08/19/16 08:28; Admin Dose 100 MG; Start 08/14/16 at 09:00 Ascorbic Acid (Vitamin C) 500 mg DAILY PO Last administered on 08/19/16 08:28 ; Admin Dose 500 MG; Start 08/13/16 at 18:00 Aspirin (Halfprin) 81 mg DAILY PO Last administered on 08/19/16 08:30; Admin Dose 81 MG; Start 08/14/16 at 09:00 Atorvastatin Calcium (Lipitor) 10 mg QHS PO Last administered on 08/19/16 20: 49; Admin Dose 10 MG; Start 08/13/16 at 21:00 Cholecalciferol (Vitamin D) 1,000 unit DAILY PO Last administered on 08/19/16 08:30; Admin Dose 1,000 UNIT; Start 08/14/16 at 09:00 Ferrous Sulfate (Ferrous Sulfate (Ec)) 325 mg BID PO Last administered on 20:49; Admin Dose 325 MG; Start 08/13/16 at 21:00 Fish Oil (Fish Oil) 1,000 mg DAILY PO Last administered on 08/19/16 08:28; Admin Dose 1,000 MG; Start 08/14/16 at 09:00 Lactobacillus Acidoph/Bulgaricus (Floranex) 1 tab TID PO Last administered on 08/19/16 20:50; Admin Dose 1 TAB; Start 08/13/16 at 21:00 Metoprolol Tartrate (Lopressor) 12.5 mg BID PO Last administered on 08/19/16 20:52; Admin Dose 12.5 MG; Start 08/13/16 at 21:00 Pregabalin (Lyrica) 50 mg TID PO Last administered on 08/19/16 20:49; Admin Dose 50 MG; Start 08/13/16 at 21:00 Pyridoxine HCl (Vitamin B6) 100 mg DAILY PO Last administered on 08/19/16at 08: 29; Admin Dose 100 MG; Start 08/14/16 at 09:00 Simethicone (Mylicon) 80 mg Q6H PRN PO INTESTINAL SPASMS/CRAMPING Last administered on 08/16/16at 15:27; Admin Dose 80 MG; Start 08/13/16 at 17:30 Vitamin E (Vitamin E) 400 units DAILY PO Last administered on 08/19/16at 08:28; Admin Dose 400 UNITS; Start 08/14/16 at 09:00 Fluoxetine HCl (Prozac) 20 mg DAILY PO Last administered on 08/19/16at 08:28; Admin Dose 20 MG; Start 08/14/16 at 09:00 Miscellaneous Information 1 ea NOTE XX ; Start 08/13/16 at 18:00 Glucose (Glutose) 15 gm Q15M PRN PO DECREASED GLUCOSE; Start 08/13/16 at 18:00 Glucose (Glutose) 22.5 gm Q15M PRN PO DECREASED GLUCOSE; Start 08/13/16 at 18: 00 Dextrose (D50w Syringe) 25 ml Q15M PRN IV DECREASED GLUCOSE; Start 08/13/16 at 18:00 Dextrose (D50w Syringe) 50 ml Q15M PRN IV DECREASED GLUCOSE; Start 08/13/16 at 18:00 Glucagon (Glucagen) 1 mg Q15M PRN IM DECREASED GLUCOSE; Start 08/13/16 at 18: 00 Glucose (Glutose) 15 gm Q15M PRN BUCCAL DECREASED GLUCOSE; Start 08/13/16 at 18:00 Sodium Hypochlorite (Dakin'S (1/4 Strength)) 1 applic DAILY IRR Last administered on 08/19/16at 08:44; Admin Dose 1 APPLIC; Start 08/13/16 at 20:00 Acetaminophen/ Hydrocodone Bitart ([place] (5/325)) 2 tab Q6H PRN PO MODERATE PAIN LEVEL 4-6 Last administered on 08/14/16at 13:03; Admin Dose 2 TAB; Start 08/14/16 at 13:00 IV Flush (NS 10 ml) 10 ml PRN PRN IV IV PTOTOCOL; Start 08/14/16 at 17:00 Bumetanide (Bumex) 1 mg 06,14 PO Last administered on 08/20/16 06:22; Admin Dose 1 MG; Start 08/15/16 at 06:00 Acetylcysteine (Nac) 600 mg BID PO Last administered on 08/19/16 20:51; Admin Dose 600 MG; Start 08/16/16 at 21:00 Ondansetron HCl (Zofran Inj) 4 mg Q4H PRN IV NAUSEA AND/OR VOMITING; Start 08/16/16 at 12:30 Zolpidem Tartrate (Ambien) 10 mg HS PRN PO INSOMNIA Last administered on 21:44; Admin Dose 10 MG; Start 08/16/16 at 21:00 Lorazepam 1 mg 1 mg Q6 PRN PO ANXIETY Last administered on 08/18/16 14:37; Admin Dose 1 MG; Start 08/18/16 at 14:30 Vancomycin HCl (Vancocin) 250 ml @ 125 mls/hr Q24H IVPB Last administered on 08/19/16 12:41; Admin Dose 125 MLS/HR; Start 08/19/16 at 12:00 Insulin Glargine (Lantus) 15 unit QHS SC Last administered on 08/19/16 20:59; Admin Dose 15 UNIT; Start 08/19/16 at 21:00 Diagnostic Test (Pha) (Accucheck) 1 ea 02 XX Last administered on 08/20/16 02: 00; Admin Dose 1 EA; Start 08/20/16 at 02:00 GIUSEPPE BREAUX Aug 20, 2016 08:45
[2016-08-20] MEDS: SODIUM HYPOCHLORITE 0.125% 473 ML BTL IRR SCH (09:00)
[2016-08-20] MEDS: HEPARIN 5,000 UNIT/0.5 ML SYG SC SCH ×2 (09:23→21:47)
[2016-08-20] MEDS: VANCOMYCIN 1 GM in NS 250 ML IVPB SCH (11:56)
--- NOTE | 2016-08-20 12:59 | CONS ---
Date/Time of Note Date/Time of Note DATE: 08/20/16 TIME: 12:57 Consult Date/Type/Reason Admit Date/Time Aug 13, 2016 at 16:30 Initial Consult Date 08/13/16 Type of Consultation: ID Ordering Provider: KELLEN MEDINA MD Subjective alert, feels ok, c/o significant weight gain 2 to decreased dose of diuretics, nad, no fevers, no n/v/d Objective Vital Signs Date Time Temp Pulse Resp B/P Pulse Ox O2 Delivery O2 Flow Rate FiO2 08/20/16 09:43 70 20 94 21 08/20/16 05:07 3.0 08/20/16 05:01 Nasal Cannula 08/19/16 20:00 98.6 139/65 Intake and Output 08/19/16 08/19/16 08/20/16 15:00 23:00 07:00 Intake Total 1510 ml 1150 ml Output Total 560 ml 875 ml Balance 950 ml 275 ml Results/Medications Result Diagram: 08/20/16 0730 08/20/16 0730 Results 24 hrs Laboratory Tests Test 08/19/16 17:07 08/19/16 19:51 08/20/16 02:41 08/20/16 07:30 Bedside Glucose 246 H 231 H 158 Anion Gap 11 Basophils # 0.0 Basophils % 0.5 Blood Morphology Comment Blood Urea Nitrogen 47 H Calcium Level 8.2 L Carbon Dioxide Level 32 H Chloride Level 94 L Creatinine 1.27 H Eosinophils # 1.2 H Eosinophils % 14.3 H Glucose Level 136 Hematocrit 29.8 L Hemoglobin 9.6 L Lymphocytes # 1.0 Lymphocytes % 11.7 L Mean Corpuscular Hemoglobin 25.0 L Mean Corpuscular Hemoglobin Concent 32.3 Mean Corpuscular Volume 77.4 L Mean Platelet Volume 7.7 Monocytes # 0.6 Monocytes % 7.2 Neutrophils # 5.7 Neutrophils % 66.3 Nucleated Red Blood Cells # 0.0 Nucleated Red Blood Cells % 0.0 Platelet Count 294 Potassium Level 4.1 Red Blood Count 3.85 L Red Cell Distribution Width 20.5 H Sodium Level 133 L White Blood Count 8.6 Test 08/20/16 07:56 08/20/16 11:46 Bedside Glucose 138 190 Medications Current Medications Acetaminophen (Tylenol Tab) 650 mg Q6H PRN PO PAIN LEVEL 1-3 OR FEVER; Start 08/13/16 at 17:30 Acetaminophen/ Hydrocodone Bitart ([place] (5/325)) 1 tab Q6H PRN PO MODERATE PAIN LEVEL 4-6; Start 08/13/16 at 17:30 Morphine Sulfate (morphine) 2 mg Q4H PRN IV SEVERE PAIN LEVEL 7-10 Last administered on 08/13/16at 17:58; Admin Dose 2 MG; Start 08/13/16 at 17:30 Docusate Sodium (Colace) 100 mg Q12H PRN PO CONSTIPATION; Start 08/13/16 at 17 :30 Famotidine (Pepcid) 20 mg Q12 PO Last administered on 08/20/16 08:28; Admin Dose 20 MG; Start 08/13/16 at 21:00 Heparin Sodium (Porcine) (Heparin (5000 Units/0.5 ml)) 5,000 unit Q12 SC Last administered on 08/20/16 09:23; Admin Dose 5,000 UNIT; Start 08/13/16 at 21:00 Allopurinol (Zyloprim) 100 mg DAILY PO Last administered on 08/20/16 08:28; Admin Dose 100 MG; Start 08/14/16 at 09:00 Ascorbic Acid (Vitamin C) 500 mg DAILY PO Last administered on 08/20/16 08:29 ; Admin Dose 500 MG; Start 08/13/16 at 18:00 Aspirin (Halfprin) 81 mg DAILY PO Last administered on 08/20/16 08:29; Admin Dose 81 MG; Start 08/14/16 at 09:00 Atorvastatin Calcium (Lipitor) 10 mg QHS PO Last administered on 08/19/16 20: 49; Admin Dose 10 MG; Start 08/13/16 at 21:00 Cholecalciferol (Vitamin D) 1,000 unit DAILY PO Last administered on 08/20/16 08:28; Admin Dose 1,000 UNIT; Start 08/14/16 at 09:00 Ferrous Sulfate (Ferrous Sulfate (Ec)) 325 mg BID PO Last administered on 08:29; Admin Dose 325 MG; Start 08/13/16 at 21:00 Fish Oil (Fish Oil) 1,000 mg DAILY PO Last administered on 08/20/16 08:29; Admin Dose 1,000 MG; Start 08/14/16 at 09:00 Lactobacillus Acidoph/Bulgaricus (Floranex) 1 tab TID PO Last administered on 08/20/16 08:28; Admin Dose 1 TAB; Start 08/13/16 at 21:00 Metoprolol Tartrate (Lopressor) 12.5 mg BID PO Last administered on 08/20/16 08:29; Admin Dose 12.5 MG; Start 08/13/16 at 21:00 Pregabalin (Lyrica) 50 mg TID PO Last administered on 08/20/16 08:31; Admin Dose 50 MG; Start 08/13/16 at 21:00 Pyridoxine HCl (Vitamin B6) 100 mg DAILY PO Last administered on 08/20/16 08: 28; Admin Dose 100 MG; Start 08/14/16 at 09:00 Simethicone (Mylicon) 80 mg Q6H PRN PO INTESTINAL SPASMS/CRAMPING Last administered on 08/16/16 15:27; Admin Dose 80 MG; Start 08/13/16 at 17:30 Vitamin E (Vitamin E) 400 units DAILY PO Last administered on 08/20/16 08:28; Admin Dose 400 UNITS; Start 08/14/16 at 09:00 Fluoxetine HCl (Prozac) 20 mg DAILY PO Last administered on 08/20/16 08:28; Admin Dose 20 MG; Start 08/14/16 at 09:00 Miscellaneous Information 1 ea NOTE XX ; Start 08/13/16 at 18:00 Glucose (Glutose) 15 gm Q15M PRN PO DECREASED GLUCOSE; Start 08/13/16 at 18:00 Glucose (Glutose) 22.5 gm Q15M PRN PO DECREASED GLUCOSE; Start 08/13/16 at 18: 00 Dextrose (D50w Syringe) 25 ml Q15M PRN IV DECREASED GLUCOSE; Start 08/13/16 at 18:00 Dextrose (D50w Syringe) 50 ml Q15M PRN IV DECREASED GLUCOSE; Start 08/13/16 at 18:00 Glucagon (Glucagen) 1 mg Q15M PRN IM DECREASED GLUCOSE; Start 08/13/16 at 18: 00 Glucose (Glutose) 15 gm Q15M PRN BUCCAL DECREASED GLUCOSE; Start 08/13/16 at 18:00 Sodium Hypochlorite (Dakin'S (1/4 Strength)) 1 applic DAILY IRR Last administered on 08/20/16at 09:00; Admin Dose 1 APPLIC; Start 08/13/16 at 20:00 Acetaminophen/ Hydrocodone Bitart ([place] (5/325)) 2 tab Q6H PRN PO MODERATE PAIN LEVEL 4-6 Last administered on 08/14/16at 13:03; Admin Dose 2 TAB; Start 08/14/16 at 13:00 IV Flush (NS 10 ml) 10 ml PRN PRN IV IV PTOTOCOL; Start 08/14/16 at 17:00 Bumetanide (Bumex) 1 mg 06,14 PO Last administered on 08/20/16at 06:22; Admin Dose 1 MG; Start 08/15/16 at 06:00 Acetylcysteine (Nac) 600 mg BID PO Last administered on 08/20/16at 08:28; Admin Dose 600 MG; Start 08/16/16 at 21:00 Ondansetron HCl (Zofran Inj) 4 mg Q4H PRN IV NAUSEA AND/OR VOMITING; Start 08/16/16 at 12:30 Zolpidem Tartrate (Ambien) 10 mg HS PRN PO INSOMNIA Last administered on at 21:44; Admin Dose 10 MG; Start 08/16/16 at 21:00 Lorazepam 1 mg 1 mg Q6 PRN PO ANXIETY Last administered on 08/18/16at 14:37; Admin Dose 1 MG; Start 08/18/16 at 14:30 Vancomycin HCl (Vancocin) 250 ml @ 125 mls/hr Q24H IVPB Last administered on 08/20/16at 11:56; Admin Dose 125 MLS/HR; Start 08/19/16 at 12:00 Insulin Glargine (Lantus) 15 unit QHS SC Last administered on 08/19/16at 20:59; Admin Dose 15 UNIT; Start 08/19/16 at 21:00 Diagnostic Test (Pha) (Accucheck) 1 ea 02 XX Last administered on 08/20/16at 02: 00; Admin Dose 1 EA; Start 08/20/16 at 02:00 Miscellaneous Information (*Rx Drug Level Order Reminder*) VANCOMYCIN TROUGH AT 1100 ONCE ONCE XX ; Start 08/21/16 at 11:00; Stop 08/21/16 at 11:01 Assessment/Plan Chief Complaint/Hosp Course MICROBIOLOGY: Bld cx+ [facility]NAN DIAGNOSTICS: MRI revealed cellulitis and osteomyelitis of the left first toe. ANTIMICROBIALS: Vancomycin and Rocephin. Urinalysis on admission was negative. PHYSICAL EXAMINATION: GENERAL: Obese, well-developed, middle-aged white man who is sitting in a chair. Patient is in no distress. HEENT: Head atraumatic, normocephalic. Sclerae anicteric. Buccal mucosa dry. NECK: Supple, trachea midline. CHEST: Rise symmetrical. Breath sounds clear, diminished to bases. HEART: S1, S2. ABDOMEN: Soft, bowel tones present. EXTREMITIES: Bilateral Patrick wraps. ASSESSMENT: 1. Bilateral lower extremities acute on chronic cellulitis with chronic venous stasis and left toe osteomyelitis. 2. Systemic inflammatory response syndrome 2 to above. 3. S/p septicemia==>KENAN 4. Questionable pneumonia as per chest x-ray. 5. Morbid obesity. 6. Atrial fibrillation, chronic. 7. Chronic kidney disease. 8. PAD==> s/p angiogram PLAN: Clinically stable, repeat bld cx negative, continue abx for 6-8 weeks, f/ u with podiatry outpatient, card rec-s [facility] staff Problems: JAMEY VAZQUEZ NP Aug 20, 2016 12:59
--- NOTE | 2016-08-20 19:34 | CONS ---
Date/Time of Note Date/Time of Note DATE: 08/20/16 TIME: 19:33 Assessment/Plan Assessment/Plan Additional Assessment/Plan 60 yo Male with 1) LORNA on CKD, Pre-Renal in the setting of diuretic Rx 2) Left toe cellulits R/o OM 3) HTN, Chronic 4) Diastolic Heart Failure, Chronic 5) Pulm HTN 6) Anema, Chroinc 7) RLL Patchy Consolidation 8) Anasarca Renal function overall stable and improved Will cont to monitor renal function, UO and electrolytes Will change Bumex to 1mg IV BID 1.5L Fluid restriction Daily weights. Consultation Date/Type/Reason Admit Date/Time Aug 13, 2016 at 16:30 Initial Consult Date 08/13/16 Type of Consultation: Nephrology Referring Provider: KELLEN MEDINA MD 24 HR Interval Summary Free Text/Dictation Complains that he is gaining more weight on current diuretic Rx. Requests IV Rx. Exam/Review of Systems Vital Signs Vitals Vital Signs Date Time Temp Pulse Resp B/P Pulse Ox O2 Delivery O2 Flow Rate FiO2 08/20/16 18:12 3.0 08/20/16 14:28 81 20 96 Nasal Cannula 08/20/16 09:43 21 08/20/16 08:00 97.2 142/74 Intake and Output 08/19/16 08/19/16 08/20/16 15:00 23:00 07:00 Intake Total 1510 ml 1150 ml Output Total 560 ml 875 ml Balance 950 ml 275 ml Exam Constitutional: alert, No distress ENMT: mucosa pink and moist Respiratory: No labored breathing Cardiovascular: edema, regular rate and rhythm Gastrointestinal: ascites, soft Extremities: pitting pedal edema 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: BENZENE WASHER 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, nl mental status, No lethargic Skin: No diaphoresis Results Result Diagram: 08/20/16 0730 08/20/16 0730 Results 24 hrs Laboratory Tests Test 08/19/16 19:51 08/20/16 02:41 08/20/16 07:30 08/20/16 07:56 Bedside Glucose 231 H 158 138 Anion Gap 11 Basophils # 0.0 Basophils % 0.5 Blood Morphology Comment Blood Urea Nitrogen 47 H Calcium Level 8.2 L Carbon Dioxide Level 32 H Chloride Level 94 L Creatinine 1.27 H Eosinophils # 1.2 H Eosinophils % 14.3 H Glucose Level 136 Hematocrit 29.8 L Hemoglobin 9.6 L Lymphocytes # 1.0 Lymphocytes % 11.7 L Mean Corpuscular Hemoglobin 25.0 L Mean Corpuscular Hemoglobin Concent 32.3 Mean Corpuscular Volume 77.4 L Mean Platelet Volume 7.7 Monocytes # 0.6 Monocytes % 7.2 Neutrophils # 5.7 Neutrophils % 66.3 Nucleated Red Blood Cells # 0.0 Nucleated Red Blood Cells % 0.0 Platelet Count 294 Potassium Level 4.1 Red Blood Count 3.85 L Red Cell Distribution Width 20.5 H Sodium Level 133 L White Blood Count 8.6 Test 08/20/16 11:46 08/20/16 17:00 Bedside Glucose 190 275 H Medications Medications Current Medications Acetaminophen (Tylenol Tab) 650 mg Q6H PRN PO PAIN LEVEL 1-3 OR FEVER; Start 08/13/16 at 17:30 Acetaminophen/ Hydrocodone Bitart ([place] (5/325)) 1 tab Q6H PRN PO MODERATE PAIN LEVEL 4-6; Start 08/13/16 at 17:30 Morphine Sulfate (morphine) 2 mg Q4H PRN IV SEVERE PAIN LEVEL 7-10 Last administered on 08/13/16at 17:58; Admin Dose 2 MG; Start 08/13/16 at 17:30 Docusate Sodium (Colace) 100 mg Q12H PRN PO CONSTIPATION; Start 08/13/16 at 17 :30 Famotidine (Pepcid) 20 mg Q12 PO Last administered on 08/20/16at 08:28; Admin Dose 20 MG; Start 08/13/16 at 21:00 Heparin Sodium (Porcine) (Heparin (5000 Units/0.5 ml)) 5,000 unit Q12 SC Last administered on 08/20/16at 09:23; Admin Dose 5,000 UNIT; Start 08/13/16 at 21:00 Allopurinol (Zyloprim) 100 mg DAILY PO Last administered on 08/20/16 08:28; Admin Dose 100 MG; Start 08/14/16 at 09:00 Ascorbic Acid (Vitamin C) 500 mg DAILY PO Last administered on 08/20/16 08:29 ; Admin Dose 500 MG; Start 08/13/16 at 18:00 Aspirin (Halfprin) 81 mg DAILY PO Last administered on 08/20/16 08:29; Admin Dose 81 MG; Start 08/14/16 at 09:00 Atorvastatin Calcium (Lipitor) 10 mg QHS PO Last administered on 08/19/16 20: 49; Admin Dose 10 MG; Start 08/13/16 at 21:00 Cholecalciferol (Vitamin D) 1,000 unit DAILY PO Last administered on 08/20/16 08:28; Admin Dose 1,000 UNIT; Start 08/14/16 at 09:00 Ferrous Sulfate (Ferrous Sulfate (Ec)) 325 mg BID PO Last administered on 08:29; Admin Dose 325 MG; Start 08/13/16 at 21:00 Fish Oil (Fish Oil) 1,000 mg DAILY PO Last administered on 08/20/16 08:29; Admin Dose 1,000 MG; Start 08/14/16 at 09:00 Lactobacillus Acidoph/Bulgaricus (Floranex) 1 tab TID PO Last administered on 08/20/16 13:11; Admin Dose 1 TAB; Start 08/13/16 at 21:00 Metoprolol Tartrate (Lopressor) 12.5 mg BID PO Last administered on 08/20/16 08:29; Admin Dose 12.5 MG; Start 08/13/16 at 21:00 Pregabalin (Lyrica) 50 mg TID PO Last administered on 08/20/16 13:11; Admin Dose 50 MG; Start 08/13/16 at 21:00 Pyridoxine HCl (Vitamin B6) 100 mg DAILY PO Last administered on 08/20/16 08: 28; Admin Dose 100 MG; Start 08/14/16 at 09:00 Simethicone (Mylicon) 80 mg Q6H PRN PO INTESTINAL SPASMS/CRAMPING Last administered on 08/16/16 15:27; Admin Dose 80 MG; Start 08/13/16 at 17:30 Vitamin E (Vitamin E) 400 units DAILY PO Last administered on 08/20/16 08:28; Admin Dose 400 UNITS; Start 08/14/16 at 09:00 Fluoxetine HCl (Prozac) 20 mg DAILY PO Last administered on 08/20/16 08:28; Admin Dose 20 MG; Start 08/14/16 at 09:00 Miscellaneous Information 1 ea NOTE XX ; Start 08/13/16 at 18:00 Glucose (Glutose) 15 gm Q15M PRN PO DECREASED GLUCOSE; Start 08/13/16 at 18:00 Glucose (Glutose) 22.5 gm Q15M PRN PO DECREASED GLUCOSE; Start 08/13/16 at 18: 00 Dextrose (D50w Syringe) 25 ml Q15M PRN IV DECREASED GLUCOSE; Start 08/13/16 at 18:00 Dextrose (D50w Syringe) 50 ml Q15M PRN IV DECREASED GLUCOSE; Start 08/13/16 at 18:00 Glucagon (Glucagen) 1 mg Q15M PRN IM DECREASED GLUCOSE; Start 08/13/16 at 18: 00 Glucose (Glutose) 15 gm Q15M PRN BUCCAL DECREASED GLUCOSE; Start 08/13/16 at 18:00 Sodium Hypochlorite (Dakin'S (1/4 Strength)) 1 applic DAILY IRR Last administered on 08/20/16at 09:00; Admin Dose 1 APPLIC; Start 08/13/16 at 20:00 Acetaminophen/ Hydrocodone Bitart ([place] (5/325)) 2 tab Q6H PRN PO MODERATE PAIN LEVEL 4-6 Last administered on 08/14/16at 13:03; Admin Dose 2 TAB; Start 08/14/16 at 13:00 IV Flush (NS 10 ml) 10 ml PRN PRN IV IV PTOTOCOL; Start 08/14/16 at 17:00 Bumetanide (Bumex) 1 mg 06,14 PO Last administered on 08/20/16at 16:24; Admin Dose 1 MG; Start 08/15/16 at 06:00 Acetylcysteine (Nac) 600 mg BID PO Last administered on 08/20/16at 08:28; Admin Dose 600 MG; Start 08/16/16 at 21:00 Ondansetron HCl (Zofran Inj) 4 mg Q4H PRN IV NAUSEA AND/OR VOMITING; Start 08/16/16 at 12:30 Zolpidem Tartrate (Ambien) 10 mg HS PRN PO INSOMNIA Last administered on at 21:44; Admin Dose 10 MG; Start 08/16/16 at 21:00 Lorazepam 1 mg 1 mg Q6 PRN PO ANXIETY Last administered on 08/18/16at 14:37; Admin Dose 1 MG; Start 08/18/16 at 14:30 Vancomycin HCl (Vancocin) 250 ml @ 125 mls/hr Q24H IVPB Last administered on 08/20/16at 11:56; Admin Dose 125 MLS/HR; Start 08/19/16 at 12:00 Insulin Glargine (Lantus) 15 unit QHS SC Last administered on 08/19/16at 20:59; Admin Dose 15 UNIT; Start 08/19/16 at 21:00 Diagnostic Test (Pha) (Accucheck) 1 ea 02 XX Last administered on 08/20/16at 02: 00; Admin Dose 1 EA; Start 08/20/16 at 02:00 Miscellaneous Information (*Rx Drug Level Order Reminder*) VANCOMYCIN TROUGH AT 1100 ONCE ONCE XX ; Start 08/21/16 at 11:00; Stop 08/21/16 at 11:01 Procedures Procedures PROCEDURE: XR Chest. CLINICAL INDICATION: Shortness of breath TECHNIQUE: Chest AP portable. COMPARISON: 08/15/2016 FINDINGS: Right arm PICC line with tip in mid superior vena cava The mediastinal structures are unremarkable. There is calcification of the thoracic aorta (consistent with atherosclerosis). There is moderate cardiomegaly. There is a decrease in the pulmonary venous hypertension. There is no change in the RLL consolidation / atelectasis. There is a decrease in the LLL patchy consolidation. There is a small right pleural effusion. There are senescent changes of the axial skeleton. IMPRESSION: Calcification of the thoracic aorta (consistent with atherosclerosis) Moderate cardiomegaly Decrease in pulmonary venous hypertension No change in RLL consolidation / atelectasis Small right pleural effusion Decrease in LLL patchy consolidation DYAN FRANKLIN MD Aug 20, 2016 19:34
[2016-08-20 20:00] VITALS: BP 153/69; PULSE 71; RESP 20
[2016-08-20] MEDS ORDERED: CEPASTAT LOZENGE MT PRN (20:30)
[2016-08-20] MEDS: ATORVASTATIN 10 MG TAB PO SCH (21:27)
[2016-08-20] MEDS: INSULIN GLARGINE [LANtus] 3 ML PEN SC SCH (21:32)
[2016-08-20] MEDS: ZOLPIDEM 5 MG TAB PO PRN (22:08)
[2016-08-20 22:52] VITALS: PULSE 32; PULSE 82
[2016-08-21] MEDS: ALBUTEROL/IPRATROPIUM (NEB) 3 ML AMP HHN SCH ×6 (01:01→21:00)
[2016-08-21] MEDS: ACCUCHECK XX SCH (02:00)
[2016-08-21 03:15] VITALS: PULSE 80
[2016-08-21] MEDS: ALBUTEROL/IPRATROPIUM (NEB) 3 ML AMP HHN PRN (03:21)
[2016-08-21] MEDS ORDERED: BUMETANIDE 1 MG INJ IV SCH ×4 (06:00→14:00)
[2016-08-21 08:00] VITALS: BP 140/70; PULSE 84; RESP 20
[2016-08-21] MEDS: INSULIN ASPART [NOVOLOG] 3 ML PEN SC SCH ×7 (08:15→21:44)
[2016-08-21] MEDS: HEPARIN 5,000 UNIT/0.5 ML SYG SC SCH ×2 (08:36→20:37)
[2016-08-21] MEDS: ALLOPURINOL 100 MG TAB PO SCH (08:39)
[2016-08-21] MEDS: FAMOTIDINE 20 MG TAB PO SCH ×2 (08:39→20:31)
[2016-08-21] MEDS: CHOLECALCIFEROL 1,000 UNIT TAB PO SCH (08:39)
[2016-08-21] MEDS: ASCORBIC ACID 500 MG TAB PO SCH (08:39)
[2016-08-21] MEDS: ASPIRIN (EC) 81 MG TAB PO SCH (08:39)
[2016-08-21] MEDS: FLUOXETINE 20 MG CAP PO SCH (08:39)
[2016-08-21] MEDS: METOPROLOL 25 MG TAB PO SCH ×2 (08:39→20:31)
[2016-08-21] MEDS: VITAMIN E 400 UNITS CAP PO SCH (08:40)
[2016-08-21] MEDS: FISH OIL 1,000 MG CAP PO SCH (08:40)
[2016-08-21] MEDS: FERROUS SULFATE (EC) 325 MG TAB PO SCH ×2 (08:40→20:30)
[2016-08-21] MEDS: PYRIDOXINE 50 MG TAB PO SCH (08:40)
[2016-08-21] MEDS: LACTOBACILLUS CHEW TAB PO SCH ×3 (08:40→20:30)
[2016-08-21] MEDS: ACETYLCYSTEINE 600 MG CAP PO SCH ×2 (08:44→20:31)
[2016-08-21] MEDS: PREGABALIN 25 MG CAP PO SCH ×3 (08:46→20:31)
[2016-08-21 09:29] LABS: BASOPHIL # 0.1 10^3/ul (0.0-0.1); BASOPHILS % 0.6 % (0.0-2.0); EOSINOPHILS # 1.2 10^3/ul (0.0-0.5); EOSINOPHILS % 13.7 % (0.0-7.0); HEMATOCRIT 30.1 % (42.0-52.0); HEMOGLOBIN 9.6 g/dl (14.0-18.0); LYMPHOCYTES % 11.7 % (15.0-51.0); MEAN CORPUSCULAR HEMOGLOBIN 24.8 pg (29.0-33.0); MEAN CORPUSCULAR HGB CONC 31.9 g/dl (32.0-37.0); MEAN CORPUSCULAR VOLUME 77.9 fl (82.0-101.0); MEAN PLATELET VOLUME 7.4 fl (7.4-10.4); MONOCYTE # 0.6 10^3/ul (0.3-0.9); MONOCYTES % 7.2 % (0.0-11.0); NEUTROPHIL # 5.8 10^3/ul (1.6-7.5); NEUTROPHILS % 66.8 % (39.0-77.0); PLATELET COUNT 301 10^3/UL (140-440); RED BLOOD COUNT 3.86 10^6/ul (4.70-6.10); RED CELL DISTRIBUTION WIDTH 21.4 % (11.5-14.5); UNCORRECTED WBC 8.7 10^3/ul (4.8-10.8); WHITE BLOOD COUNT 8.7 10^3/ul (4.8-10.8)
[2016-08-21 09:38] LABS: CONDITION 1; LH ANALYZER COMMENTS 1
[2016-08-21 09:41] LABS: POTASSIUM 4.2 mmol/L (3.5-5.1)
[2016-08-21 09:44] LABS: CREATININE 1.07 mg/dl (0.61-1.24)
[2016-08-21 09:45] LABS: CALCIUM 7.9 mg/dl (8.4-10.2)
--- NOTE | 2016-08-21 09:46 | PN ---
Date/Time of Note Date/Time of Note DATE: 08/21/16 TIME: 09:41 Assessment/Plan VTE Prophylaxis VTE Prophylaxis Intervention: heparin Lines/Catheters IV [facility]ter Type [facility] PICC Line Central line still needed: Yes Assessment/Plan Chief Complaint/Hosp Course Assessment and plan 1. Left greater toe osteomyelitis/ cellulitis. Continue antibiotics. (Will need 6 weeks of antibiotics per ID). Patient assessed by vascular surgeon. Continue recommendations 2. Leukocytosis secondary to #1. At this time. Remains afebrile. Continue on antibiotics 3. Acute on chronic respiratory failure. Patient is reported to be oxygen dependent at home. Continue on O2 supplement. Titrate down start as tolerated. Continue BiPAP as needed. Pulmonary following. 4. Acute on chronic kidney disease. Diuretics renally dosed. avoid nephrotoxic medications possible. Continue with nephrology recommendations. 5. Congestive heart failure with diastolic dysfunction. Continue on diuretics. Aspirin 6. Type 2 diabetes. Patient was noted with recent A1c of 5.8. Continue on insulin siding scale. Continue carbohydrate controlled diet 7. Essential hypertension. Continue antihypertensives and adjust as needed 8. History of atrial fibrillation. Continue on heparin 9. Dyslipidemia. cont statin 10. History of gout. Continue allopurinol 11. Major depression. Continue on SSRI 12. Morbid obesity. Weight reduction advised GERD prophylaxis: Pepcid DVT prophylaxis: Heparin Disposition and plan: Continue titrate down O2 as tolerated.monitor renal function. diuretics per nephro. d/c when medically stable and cleared by consultants Discussed plan of care with Dr. Bowers Problems: Subjective 24 Hr Interval Summary Free Text/Dictation reports breathing stable at this time. no specific complaints. Still seen on o2 4lnc Exam/Review of Systems Vital Signs Vitals Vital Signs Date Time Temp Pulse Resp B/P Pulse Ox O2 Delivery O2 Flow Rate FiO2 08/21/16 09:01 4.0 08/21/16 09:01 88 18 93 Nasal Cannula 08/21/16 08:00 98.4 140/70 08/21/16 03:15 35 Intake and Output 08/20/16 08/20/16 08/21/16 15:00 23:00 07:00 Intake Total 1350 ml 240 ml Output Total 900 ml Balance 1350 ml -660 ml Exam General: No acute signs or symptoms of distress Eyes: pupils equal round, Anicteric sclera Neck: Supple nontender, no JVD Cardiac: S1, S2 auscultated, regular rhythm and rate Pulmonary: Diminished at lung bases. No obvious wheezing or rhonchi auscultated GI: Abdomen soft nontender nondistended, bowel sounds active Extremities: Edema seen bilateral lower extremities posterior Skin: dressing bilateral lower extremities clean dry and intact. Brownish discoloration of bilateral lower extremities Neurologic: Alert to person place and time and situation Results Result Diagram: 08/21/16 0915 08/20/16 0730 Results 24 hrs Laboratory Tests Test 08/20/16 11:46 08/20/16 17:00 08/20/16 21:24 08/21/16 03:10 Bedside Glucose 190 275 H 221 H 130 Test 08/21/16 07:49 08/21/16 09:15 Bedside Glucose 117 Basophils # 0.1 Basophils % 0.6 Blood Morphology Comment Eosinophils # 1.2 H Eosinophils % 13.7 H Hematocrit 30.1 L Hemoglobin 9.6 L Lymphocytes # 1.0 Lymphocytes % 11.7 L Mean Corpuscular Hemoglobin 24.8 L Mean Corpuscular Hemoglobin Concent 31.9 L Mean Corpuscular Volume 77.9 L Mean Platelet Volume 7.4 Monocytes # 0.6 Monocytes % 7.2 Neutrophils # 5.8 Neutrophils % 66.8 Nucleated Red Blood Cells # 0.0 Nucleated Red Blood Cells % 0.0 Platelet Count 301 Red Blood Count 3.86 L Red Cell Distribution Width 21.4 H White Blood Count 8.7 Medications Medications Current Medications Acetaminophen (Tylenol Tab) 650 mg Q6H PRN PO PAIN LEVEL 1-3 OR FEVER; Start 08/13/16 at 17:30 Acetaminophen/ Hydrocodone Bitart ([place] (5/325)) 1 tab Q6H PRN PO MODERATE PAIN LEVEL 4-6; Start 08/13/16 at 17:30 Morphine Sulfate (morphine) 2 mg Q4H PRN IV SEVERE PAIN LEVEL 7-10 Last administered on 08/13/16at 17:58; Admin Dose 2 MG; Start 08/13/16 at 17:30 Docusate Sodium (Colace) 100 mg Q12H PRN PO CONSTIPATION; Start 08/13/16 at 17 :30 Famotidine (Pepcid) 20 mg Q12 PO Last administered on 08/21/16at 08:39; Admin Dose 20 MG; Start 08/13/16 at 21:00 Heparin Sodium (Porcine) (Heparin (5000 Units/0.5 ml)) 5,000 unit Q12 SC Last administered on 08/21/16 08:36; Admin Dose 5,000 UNIT; Start 08/13/16 at 21:00 Allopurinol (Zyloprim) 100 mg DAILY PO Last administered on 08/21/16 08:39; Admin Dose 100 MG; Start 08/14/16 at 09:00 Ascorbic Acid (Vitamin C) 500 mg DAILY PO Last administered on 08/21/16 08:39 ; Admin Dose 500 MG; Start 08/13/16 at 18:00 Aspirin (Halfprin) 81 mg DAILY PO Last administered on 08/21/16 08:39; Admin Dose 81 MG; Start 08/14/16 at 09:00 Atorvastatin Calcium (Lipitor) 10 mg QHS PO Last administered on 08/20/16 21: 27; Admin Dose 10 MG; Start 08/13/16 at 21:00 Cholecalciferol (Vitamin D) 1,000 unit DAILY PO Last administered on 08/21/16 08:39; Admin Dose 1,000 UNIT; Start 08/14/16 at 09:00 Ferrous Sulfate (Ferrous Sulfate (Ec)) 325 mg BID PO Last administered on 08:40; Admin Dose 325 MG; Start 08/13/16 at 21:00 Fish Oil (Fish Oil) 1,000 mg DAILY PO Last administered on 08/21/16 08:40; Admin Dose 1,000 MG; Start 08/14/16 at 09:00 Lactobacillus Acidoph/Bulgaricus (Floranex) 1 tab TID PO Last administered on 08/21/16 08:40; Admin Dose 1 TAB; Start 08/13/16 at 21:00 Metoprolol Tartrate (Lopressor) 12.5 mg BID PO Last administered on 08/21/16 08:39; Admin Dose 12.5 MG; Start 08/13/16 at 21:00 Pregabalin (Lyrica) 50 mg TID PO Last administered on 08/21/16 08:46; Admin Dose 50 MG; Start 08/13/16 at 21:00 Pyridoxine HCl (Vitamin B6) 100 mg DAILY PO Last administered on 08/21/16 08: 40; Admin Dose 100 MG; Start 08/14/16 at 09:00 Simethicone (Mylicon) 80 mg Q6H PRN PO INTESTINAL SPASMS/CRAMPING Last administered on 08/16/16at 15:27; Admin Dose 80 MG; Start 08/13/16 at 17:30 Vitamin E (Vitamin E) 400 units DAILY PO Last administered on 08/21/16at 08:40; Admin Dose 400 UNITS; Start 08/14/16 at 09:00 Fluoxetine HCl (Prozac) 20 mg DAILY PO Last administered on 08/21/16at 08:39; Admin Dose 20 MG; Start 08/14/16 at 09:00 Miscellaneous Information 1 ea NOTE XX ; Start 08/13/16 at 18:00 Glucose (Glutose) 15 gm Q15M PRN PO DECREASED GLUCOSE; Start 08/13/16 at 18:00 Glucose (Glutose) 22.5 gm Q15M PRN PO DECREASED GLUCOSE; Start 08/13/16 at 18: 00 Dextrose (D50w Syringe) 25 ml Q15M PRN IV DECREASED GLUCOSE; Start 08/13/16 at 18:00 Dextrose (D50w Syringe) 50 ml Q15M PRN IV DECREASED GLUCOSE; Start 08/13/16 at 18:00 Glucagon (Glucagen) 1 mg Q15M PRN IM DECREASED GLUCOSE; Start 08/13/16 at 18: 00 Glucose (Glutose) 15 gm Q15M PRN BUCCAL DECREASED GLUCOSE; Start 08/13/16 at 18:00 Sodium Hypochlorite (Dakin'S (1/4 Strength)) 1 applic DAILY IRR Last administered on 08/20/16at 09:00; Admin Dose 1 APPLIC; Start 08/13/16 at 20:00 Acetaminophen/ Hydrocodone Bitart ([place] (5/325)) 2 tab Q6H PRN PO MODERATE PAIN LEVEL 4-6 Last administered on 08/14/16at 13:03; Admin Dose 2 TAB; Start 08/14/16 at 13:00 IV Flush (NS 10 ml) 10 ml PRN PRN IV IV PTOTOCOL; Start 08/14/16 at 17:00 Acetylcysteine (Nac) 600 mg BID PO Last administered on 08/21/16at 08:44; Admin Dose 600 MG; Start 08/16/16 at 21:00 Ondansetron HCl (Zofran Inj) 4 mg Q4H PRN IV NAUSEA AND/OR VOMITING; Start 08/16/16 at 12:30 Zolpidem Tartrate (Ambien) 10 mg HS PRN PO INSOMNIA Last administered on 22:08; Admin Dose 10 MG; Start 08/16/16 at 21:00 Lorazepam 1 mg 1 mg Q6 PRN PO ANXIETY Last administered on 08/18/16 14:37; Admin Dose 1 MG; Start 08/18/16 at 14:30 Vancomycin HCl (Vancocin) 250 ml @ 125 mls/hr Q24H IVPB Last administered on 08/20/16 11:56; Admin Dose 125 MLS/HR; Start 08/19/16 at 12:00 Insulin Glargine (Lantus) 15 unit QHS SC Last administered on 08/20/16 21:32; Admin Dose 15 UNIT; Start 08/19/16 at 21:00 Diagnostic Test (Pha) (Accucheck) 1 ea 02 XX Last administered on 08/21/16at 02: 00; Admin Dose 1 EA; Start 08/20/16 at 02:00 Miscellaneous Information (*Rx Drug Level Order Reminder*) VANCOMYCIN TROUGH AT 1100 ONCE ONCE XX ; Start 08/21/16 at 11:00; Stop 08/21/16 at 11:01 Phenol (Cepastat Lozenge) 1 lozenge Q1H PRN MT DRY MOUTH Last administered on 08/20/16at 21:28; Admin Dose 1 LOZENGE; Start 08/20/16 at 20:30 Bumetanide (Bumex) 1 mg BID@06,14 IV Last administered on 08/21/16 06:30; Admin Dose 1 MG; Start 08/21/16 at 06:00 GIUSEPPE BREAUX Aug 21, 2016 09:46
[2016-08-21] MEDS: SODIUM HYPOCHLORITE 0.125% 473 ML BTL IRR SCH (11:36)
--- NOTE | 2016-08-21 12:06 | CONS ---
Date/Time of Note Date/Time of Note DATE: 08/21/16 TIME: 12:05 Assessment/Plan Assessment/Plan Additional Assessment/Plan 60 yo Male with 1) LORNA on CKD, Pre-Renal in the setting of diuretic Rx 2) Left toe cellulits R/o OM 3) HTN, Chronic 4) Diastolic Heart Failure, Chronic 5) Pulm HTN 6) Anema, Chroinc 7) RLL Patchy Consolidation 8) Anasarca Renal function overall stable and cont to improve Will cont to monitor renal function, UO and electrolytes Will increase Bumex to 1.5 mg IV BID Cont 1.5L Fluid restriction Daily weights. Consultation Date/Type/Reason Admit Date/Time Aug 13, 2016 at 16:30 Initial Consult Date 08/13/16 Type of Consultation: Nephrology Referring Provider: KELLEN MEDINA MD 24 HR Interval Summary Free Text/Dictation Pt states no significant increase in UO with IV Bumex 1mg Exam/Review of Systems Vital Signs Vitals Vital Signs Date Time Temp Pulse Resp B/P Pulse Ox O2 Delivery O2 Flow Rate FiO2 08/21/16 09:01 4.0 08/21/16 09:01 88 18 93 Nasal Cannula 08/21/16 08:00 98.4 140/70 08/21/16 03:15 35 Intake and Output 08/20/16 08/20/16 08/21/16 15:00 23:00 07:00 Intake Total 1350 ml 240 ml Output Total 900 ml Balance 1350 ml -660 ml Exam Constitutional: No distress ENMT: mucosa pink and moist Respiratory: crackles/rales, No labored breathing Cardiovascular: edema, regular rate and rhythm Gastrointestinal: ascites, soft 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: [employer] 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, No lethargic Skin: No diaphoresis Results Result Diagram: 08/21/1615 08/21/16 0915 Results 24 hrs Laboratory Tests Test 08/20/16 17:00 08/20/16 21:24 08/21/16 03:10 08/21/16 07:49 Bedside Glucose 275 H 221 H 130 117 Test 08/21/16 09:15 08/21/16 11:39 Anion Gap 13 Basophils # 0.1 Basophils % 0.6 Blood Morphology Comment Blood Urea Nitrogen 47 H Calcium Level 7.9 L Carbon Dioxide Level 30 Chloride Level 96 L Creatinine 1.07 Eosinophils # 1.2 H Eosinophils % 13.7 H Glucose Level 138 Hematocrit 30.1 L Hemoglobin 9.6 L Lymphocytes # 1.0 Lymphocytes % 11.7 L Mean Corpuscular Hemoglobin 24.8 L Mean Corpuscular Hemoglobin Concent 31.9 L Mean Corpuscular Volume 77.9 L Mean Platelet Volume 7.4 Monocytes # 0.6 Monocytes % 7.2 Neutrophils # 5.8 Neutrophils % 66.8 Nucleated Red Blood Cells # 0.0 Nucleated Red Blood Cells % 0.0 Platelet Count 301 Potassium Level 4.2 Red Blood Count 3.86 L Red Cell Distribution Width 21.4 H Sodium Level 135 White Blood Count 8.7 Bedside Glucose 127 Medications Medications Current Medications Acetaminophen (Tylenol Tab) 650 mg Q6H PRN PO PAIN LEVEL 1-3 OR FEVER; Start 08/13/16 at 17:30 Acetaminophen/ Hydrocodone Bitart ([place] (5/325)) 1 tab Q6H PRN PO MODERATE PAIN LEVEL 4-6; Start 08/13/16 at 17:30 Morphine Sulfate (morphine) 2 mg Q4H PRN IV SEVERE PAIN LEVEL 7-10 Last administered on 08/13/16at 17:58; Admin Dose 2 MG; Start 08/13/16 at 17:30 Docusate Sodium (Colace) 100 mg Q12H PRN PO CONSTIPATION; Start 08/13/16 at 17 :30 Famotidine (Pepcid) 20 mg Q12 PO Last administered on 08/21/16at 08:39; Admin Dose 20 MG; Start 08/13/16 at 21:00 Heparin Sodium (Porcine) (Heparin (5000 Units/0.5 ml)) 5,000 unit Q12 SC Last administered on 08/21/16at 08:36; Admin Dose 5,000 UNIT; Start 08/13/16 at 21:00 Allopurinol (Zyloprim) 100 mg DAILY PO Last administered on 08/21/16 08:39; Admin Dose 100 MG; Start 08/14/16 at 09:00 Ascorbic Acid (Vitamin C) 500 mg DAILY PO Last administered on 08/21/16 08:39 ; Admin Dose 500 MG; Start 08/13/16 at 18:00 Aspirin (Halfprin) 81 mg DAILY PO Last administered on 08/21/16 08:39; Admin Dose 81 MG; Start 08/14/16 at 09:00 Atorvastatin Calcium (Lipitor) 10 mg QHS PO Last administered on 08/20/16 21: 27; Admin Dose 10 MG; Start 08/13/16 at 21:00 Cholecalciferol (Vitamin D) 1,000 unit DAILY PO Last administered on 08/21/16 08:39; Admin Dose 1,000 UNIT; Start 08/14/16 at 09:00 Ferrous Sulfate (Ferrous Sulfate (Ec)) 325 mg BID PO Last administered on 08:40; Admin Dose 325 MG; Start 08/13/16 at 21:00 Fish Oil (Fish Oil) 1,000 mg DAILY PO Last administered on 08/21/16 08:40; Admin Dose 1,000 MG; Start 08/14/16 at 09:00 Lactobacillus Acidoph/Bulgaricus (Floranex) 1 tab TID PO Last administered on 08/21/16 08:40; Admin Dose 1 TAB; Start 08/13/16 at 21:00 Metoprolol Tartrate (Lopressor) 12.5 mg BID PO Last administered on 08/21/16 08:39; Admin Dose 12.5 MG; Start 08/13/16 at 21:00 Pregabalin (Lyrica) 50 mg TID PO Last administered on 08/21/16 08:46; Admin Dose 50 MG; Start 08/13/16 at 21:00 Pyridoxine HCl (Vitamin B6) 100 mg DAILY PO Last administered on 08/21/16 08: 40; Admin Dose 100 MG; Start 08/14/16 at 09:00 Simethicone (Mylicon) 80 mg Q6H PRN PO INTESTINAL SPASMS/CRAMPING Last administered on 08/16/16 15:27; Admin Dose 80 MG; Start 08/13/16 at 17:30 Vitamin E (Vitamin E) 400 units DAILY PO Last administered on 08/21/16 08:40; Admin Dose 400 UNITS; Start 08/14/16 at 09:00 Fluoxetine HCl (Prozac) 20 mg DAILY PO Last administered on 08/21/16 08:39; Admin Dose 20 MG; Start 08/14/16 at 09:00 Miscellaneous Information 1 ea NOTE XX ; Start 08/13/16 at 18:00 Glucose (Glutose) 15 gm Q15M PRN PO DECREASED GLUCOSE; Start 08/13/16 at 18:00 Glucose (Glutose) 22.5 gm Q15M PRN PO DECREASED GLUCOSE; Start 08/13/16 at 18: 00 Dextrose (D50w Syringe) 25 ml Q15M PRN IV DECREASED GLUCOSE; Start 08/13/16 at 18:00 Dextrose (D50w Syringe) 50 ml Q15M PRN IV DECREASED GLUCOSE; Start 08/13/16 at 18:00 Glucagon (Glucagen) 1 mg Q15M PRN IM DECREASED GLUCOSE; Start 08/13/16 at 18: 00 Glucose (Glutose) 15 gm Q15M PRN BUCCAL DECREASED GLUCOSE; Start 08/13/16 at 18:00 Sodium Hypochlorite (Dakin'S (1/4 Strength)) 1 applic DAILY IRR Last administered on 08/21/16at 11:36; Admin Dose 1 APPLIC; Start 08/13/16 at 20:00 Acetaminophen/ Hydrocodone Bitart ([place] (5/325)) 2 tab Q6H PRN PO MODERATE PAIN LEVEL 4-6 Last administered on 08/14/16at 13:03; Admin Dose 2 TAB; Start 08/14/16 at 13:00 IV Flush (NS 10 ml) 10 ml PRN PRN IV IV PTOTOCOL; Start 08/14/16 at 17:00 Acetylcysteine (Nac) 600 mg BID PO Last administered on 08/21/16at 08:44; Admin Dose 600 MG; Start 08/16/16 at 21:00 Ondansetron HCl (Zofran Inj) 4 mg Q4H PRN IV NAUSEA AND/OR VOMITING; Start 08/16/16 at 12:30 Zolpidem Tartrate (Ambien) 10 mg HS PRN PO INSOMNIA Last administered on at 22:08; Admin Dose 10 MG; Start 08/16/16 at 21:00 Lorazepam 1 mg 1 mg Q6 PRN PO ANXIETY Last administered on 08/18/16at 14:37; Admin Dose 1 MG; Start 08/18/16 at 14:30 Vancomycin HCl (Vancocin) 250 ml @ 125 mls/hr Q24H IVPB Last administered on 08/20/16at 11:56; Admin Dose 125 MLS/HR; Start 08/19/16 at 12:00 Insulin Glargine (Lantus) 15 unit QHS SC Last administered on 08/20/16at 21:32; Admin Dose 15 UNIT; Start 08/19/16 at 21:00 Diagnostic Test (Pha) (Accucheck) 1 ea 02 XX Last administered on 08/21/16at 02: 00; Admin Dose 1 EA; Start 08/20/16 at 02:00 Phenol (Cepastat Lozenge) 1 lozenge Q1H PRN MT DRY MOUTH Last administered on 08/20/16at 21:28; Admin Dose 1 LOZENGE; Start 08/20/16 at 20:30 Bumetanide (Bumex) 1 mg BID@06,14 IV Last administered on 08/21/16at 06:30; Admin Dose 1 MG; Start 08/21/16 at 06:00 DYAN FRANKLIN MD Aug 21, 2016 12:06
--- NOTE | 2016-08-21 12:19 | CONS ---
Date/Time of Note Date/Time of Note DATE: 08/21/16 TIME: 12:18 Consult Date/Type/Reason Admit Date/Time Aug 13, 2016 at 16:30 Initial Consult Date 08/13/16 Type of Consultation: ID Ordering Provider: KELLEN MEDINA MD Subjective no events, awake, looks comfortable, no fevers Objective Vital Signs Date Time Temp Pulse Resp B/P Pulse Ox O2 Delivery O2 Flow Rate FiO2 08/21/16 09:01 4.0 08/21/16 09:01 88 18 93 Nasal Cannula 08/21/16 08:00 98.4 140/70 08/21/16 03:15 35 Intake and Output 08/20/16 08/20/16 08/21/16 14:59 22:59 06:59 Intake Total 1350 ml 240 ml Output Total 900 ml Balance 1350 ml -660 ml Results/Medications Result Diagram: 08/21/16 0915 08/21/16 0915 Results 24 hrs Laboratory Tests Test 08/20/16 17:00 08/20/16 21:24 08/21/16 03:10 08/21/16 07:49 Bedside Glucose 275 H 221 H 130 117 Test 08/21/16 09:15 08/21/16 11:39 Anion Gap 13 Basophils # 0.1 Basophils % 0.6 Blood Morphology Comment Blood Urea Nitrogen 47 H Calcium Level 7.9 L Carbon Dioxide Level 30 Chloride Level 96 L Creatinine 1.07 Eosinophils # 1.2 H Eosinophils % 13.7 H Glucose Level 138 Hematocrit 30.1 L Hemoglobin 9.6 L Lymphocytes # 1.0 Lymphocytes % 11.7 L Mean Corpuscular Hemoglobin 24.8 L Mean Corpuscular Hemoglobin Concent 31.9 L Mean Corpuscular Volume 77.9 L Mean Platelet Volume 7.4 Monocytes # 0.6 Monocytes % 7.2 Neutrophils # 5.8 Neutrophils % 66.8 Nucleated Red Blood Cells # 0.0 Nucleated Red Blood Cells % 0.0 Platelet Count 301 Potassium Level 4.2 Red Blood Count 3.86 L Red Cell Distribution Width 21.4 H Sodium Level 135 White Blood Count 8.7 Bedside Glucose 127 Medications Current Medications Acetaminophen (Tylenol Tab) 650 mg Q6H PRN PO PAIN LEVEL 1-3 OR FEVER; Start 08/13/16 at 17:30 Acetaminophen/ Hydrocodone Bitart ([place] (5/325)) 1 tab Q6H PRN PO MODERATE PAIN LEVEL 4-6; Start 08/13/16 at 17:30 Morphine Sulfate (morphine) 2 mg Q4H PRN IV SEVERE PAIN LEVEL 7-10 Last administered on 08/13/16 17:58; Admin Dose 2 MG; Start 08/13/16 at 17:30 Docusate Sodium (Colace) 100 mg Q12H PRN PO CONSTIPATION; Start 08/13/16 at 17 :30 Famotidine (Pepcid) 20 mg Q12 PO Last administered on 08/21/16 08:39; Admin Dose 20 MG; Start 08/13/16 at 21:00 Heparin Sodium (Porcine) (Heparin (5000 Units/0.5 ml)) 5,000 unit Q12 SC Last administered on 08/21/16 08:36; Admin Dose 5,000 UNIT; Start 08/13/16 at 21:00 Allopurinol (Zyloprim) 100 mg DAILY PO Last administered on 08/21/16 08:39; Admin Dose 100 MG; Start 08/14/16 at 09:00 Ascorbic Acid (Vitamin C) 500 mg DAILY PO Last administered on 08/21/16 08:39 ; Admin Dose 500 MG; Start 08/13/16 at 18:00 Aspirin (Halfprin) 81 mg DAILY PO Last administered on 08/21/16 08:39; Admin Dose 81 MG; Start 08/14/16 at 09:00 Atorvastatin Calcium (Lipitor) 10 mg QHS PO Last administered on 08/20/16 21: 27; Admin Dose 10 MG; Start 08/13/16 at 21:00 Cholecalciferol (Vitamin D) 1,000 unit DAILY PO Last administered on 08/21/16 08:39; Admin Dose 1,000 UNIT; Start 08/14/16 at 09:00 Ferrous Sulfate (Ferrous Sulfate (Ec)) 325 mg BID PO Last administered on 08:40; Admin Dose 325 MG; Start 08/13/16 at 21:00 Fish Oil (Fish Oil) 1,000 mg DAILY PO Last administered on 08/21/16 08:40; Admin Dose 1,000 MG; Start 08/14/16 at 09:00 Lactobacillus Acidoph/Bulgaricus (Floranex) 1 tab TID PO Last administered on 08/21/16 08:40; Admin Dose 1 TAB; Start 08/13/16 at 21:00 Metoprolol Tartrate (Lopressor) 12.5 mg BID PO Last administered on 08/21/16 08:39; Admin Dose 12.5 MG; Start 08/13/16 at 21:00 Pregabalin (Lyrica) 50 mg TID PO Last administered on 08/21/16 08:46; Admin Dose 50 MG; Start 08/13/16 at 21:00 Pyridoxine HCl (Vitamin B6) 100 mg DAILY PO Last administered on 08/21/16 08: 40; Admin Dose 100 MG; Start 08/14/16 at 09:00 Simethicone (Mylicon) 80 mg Q6H PRN PO INTESTINAL SPASMS/CRAMPING Last administered on 08/16/16 15:27; Admin Dose 80 MG; Start 08/13/16 at 17:30 Vitamin E (Vitamin E) 400 units DAILY PO Last administered on 08/21/16 08:40; Admin Dose 400 UNITS; Start 08/14/16 at 09:00 Fluoxetine HCl (Prozac) 20 mg DAILY PO Last administered on 08/21/16 08:39; Admin Dose 20 MG; Start 08/14/16 at 09:00 Miscellaneous Information 1 ea NOTE XX ; Start 08/13/16 at 18:00 Glucose (Glutose) 15 gm Q15M PRN PO DECREASED GLUCOSE; Start 08/13/16 at 18:00 Glucose (Glutose) 22.5 gm Q15M PRN PO DECREASED GLUCOSE; Start 08/13/16 at 18: 00 Dextrose (D50w Syringe) 25 ml Q15M PRN IV DECREASED GLUCOSE; Start 08/13/16 at 18:00 Dextrose (D50w Syringe) 50 ml Q15M PRN IV DECREASED GLUCOSE; Start 08/13/16 at 18:00 Glucagon (Glucagen) 1 mg Q15M PRN IM DECREASED GLUCOSE; Start 08/13/16 at 18: 00 Glucose (Glutose) 15 gm Q15M PRN BUCCAL DECREASED GLUCOSE; Start 08/13/16 at 18:00 Sodium Hypochlorite (Dakin'S (1/4 Strength)) 1 applic DAILY IRR Last administered on 08/21/16at 11:36; Admin Dose 1 APPLIC; Start 08/13/16 at 20:00 Acetaminophen/ Hydrocodone Bitart ([place] (5/325)) 2 tab Q6H PRN PO MODERATE PAIN LEVEL 4-6 Last administered on 08/14/16at 13:03; Admin Dose 2 TAB; Start 08/14/16 at 13:00 IV Flush (NS 10 ml) 10 ml PRN PRN IV IV PTOTOCOL; Start 08/14/16 at 17:00 Acetylcysteine (Nac) 600 mg BID PO Last administered on 08/21/16at 08:44; Admin Dose 600 MG; Start 08/16/16 at 21:00 Ondansetron HCl (Zofran Inj) 4 mg Q4H PRN IV NAUSEA AND/OR VOMITING; Start 08/16/16 at 12:30 Zolpidem Tartrate (Ambien) 10 mg HS PRN PO INSOMNIA Last administered on 22:08; Admin Dose 10 MG; Start 08/16/16 at 21:00 Lorazepam 1 mg 1 mg Q6 PRN PO ANXIETY Last administered on 08/18/16 14:37; Admin Dose 1 MG; Start 08/18/16 at 14:30 Vancomycin HCl (Vancocin) 250 ml @ 125 mls/hr Q24H IVPB Last administered on 08/20/16 11:56; Admin Dose 125 MLS/HR; Start 08/19/16 at 12:00 Insulin Glargine (Lantus) 15 unit QHS SC Last administered on 08/20/16 21:32; Admin Dose 15 UNIT; Start 08/19/16 at 21:00 Diagnostic Test (Pha) (Accucheck) 1 ea 02 XX Last administered on 08/21/16at 02: 00; Admin Dose 1 EA; Start 08/20/16 at 02:00 Phenol (Cepastat Lozenge) 1 lozenge Q1H PRN MT DRY MOUTH Last administered on 08/20/16 21:28; Admin Dose 1 LOZENGE; Start 08/20/16 at 20:30 Bumetanide (Bumex) 1.5 mg BID@06,14 IV ; Start 08/21/16 at 14:00; Status UNV Assessment/Plan Chief Complaint/Hosp Course MICROBIOLOGY: Bld cx+ KENAN DIAGNOSTICS: MRI revealed cellulitis and osteomyelitis of the left first toe. ANTIMICROBIALS: Vancomycin Urinalysis on admission was negative. PHYSICAL EXAMINATION: GENERAL: Obese, well-developed, middle-aged white man who is sitting in a chair. Patient is in no distress. HEENT: Head atraumatic, normocephalic. Sclerae anicteric. Buccal mucosa dry. NECK: Supple, trachea midline. CHEST: Rise symmetrical. Breath sounds clear, diminished to bases. HEART: S1, S2. ABDOMEN: Soft, bowel tones present. EXTREMITIES: Bilateral Patrick wraps. ASSESSMENT: 1. Bilateral lower extremities acute on chronic cellulitis with chronic venous stasis and left toe osteomyelitis. 2. Systemic inflammatory response syndrome 2 to above. 3. S/p septicemia==>KENAN 4. Questionable pneumonia as per chest x-ray. 5. Morbid obesity. 6. Atrial fibrillation, chronic. 7. Chronic kidney disease. 8. PAD==> s/p angiogram PLAN: Clinically stable, repeat bld cx negative, continue abx for 6-8 weeks, f/ u with podiatry outpatient, card/renal rec-s [facility] staff Problems: JAMEY VAZQUEZ NP Aug 21, 2016 12:19
[2016-08-21] MEDS: VANCOMYCIN 1 GM in NS 250 ML IVPB SCH (13:02)
[2016-08-21] MEDS: DEXTROSE 5% IV SCH (15:02)
[2016-08-21] MEDS: BUMETANIDE IV SCH (15:02)
[2016-08-21 20:00] VITALS: BP 154/76; PULSE 86; RESP 20
[2016-08-21] MEDS: ATORVASTATIN 10 MG TAB PO SCH (20:30)
[2016-08-21] MEDS: INSULIN GLARGINE [LANtus] 3 ML PEN SC SCH (21:41)
[2016-08-21] MEDS: ZOLPIDEM 5 MG TAB PO PRN (22:15)
[2016-08-21 23:15] VITALS: PULSE 78
[2016-08-22] MEDS: ALBUTEROL/IPRATROPIUM (NEB) 3 ML AMP HHN SCH ×6 (00:02→20:54)
[2016-08-22 00:51] VITALS: PULSE 85
[2016-08-22] MEDS: ACCUCHECK XX SCH (02:00)
[2016-08-22] MEDS: BUMETANIDE IV SCH ×3 (06:34→16:20)
[2016-08-22] MEDS: DEXTROSE 5% IV SCH ×3 (06:34→16:20)
[2016-08-22 08:00] VITALS: BP 157/76; PULSE 89; RESP 18
[2016-08-22] MEDS: PREGABALIN 25 MG CAP PO SCH ×3 (08:52→21:26)
[2016-08-22] MEDS: CHOLECALCIFEROL 1,000 UNIT TAB PO SCH (08:55)
[2016-08-22] MEDS: ACETYLCYSTEINE 600 MG CAP PO SCH ×2 (08:55→21:26)
[2016-08-22] MEDS: VITAMIN E 400 UNITS CAP PO SCH (08:56)
[2016-08-22] MEDS: ASCORBIC ACID 500 MG TAB PO SCH (08:56)
[2016-08-22] MEDS: ASPIRIN (EC) 81 MG TAB PO SCH (08:56)
[2016-08-22] MEDS: PYRIDOXINE 50 MG TAB PO SCH (08:56)
[2016-08-22] MEDS: FLUOXETINE 20 MG CAP PO SCH (08:56)
[2016-08-22] MEDS: ALLOPURINOL 100 MG TAB PO SCH (08:57)
[2016-08-22] MEDS: FAMOTIDINE 20 MG TAB PO SCH ×2 (08:57→21:26)
[2016-08-22] MEDS: LACTOBACILLUS CHEW TAB PO SCH ×3 (08:57→21:25)
[2016-08-22] MEDS: FERROUS SULFATE (EC) 325 MG TAB PO SCH ×2 (08:59→21:25)
[2016-08-22] MEDS: METOPROLOL 25 MG TAB PO SCH ×2 (08:59→21:27)
[2016-08-22] MEDS: SODIUM HYPOCHLORITE 0.125% 473 ML BTL IRR SCH (09:01)
[2016-08-22] MEDS: FISH OIL 1,000 MG CAP PO SCH (09:01)
[2016-08-22] MEDS: INSULIN ASPART [NOVOLOG] 3 ML PEN SC SCH ×7 (09:04→21:00)
[2016-08-22] MEDS: HEPARIN 5,000 UNIT/0.5 ML SYG SC SCH ×2 (09:05→21:38)
[2016-08-22 10:11] LABS: BASOPHILS % 0.4 % (0.0-2.0); EOSINOPHILS # 1.1 10^3/ul (0.0-0.5); EOSINOPHILS % 11.1 % (0.0-7.0); HEMATOCRIT 29.6 % (42.0-52.0); HEMOGLOBIN 9.4 g/dl (14.0-18.0); LYMPHOCYTES # 0.8 10^3/ul (0.8-2.9); LYMPHOCYTES % 8.7 % (15.0-51.0); MEAN CORPUSCULAR HEMOGLOBIN 24.5 pg (29.0-33.0); MEAN CORPUSCULAR HGB CONC 31.7 g/dl (32.0-37.0); MEAN CORPUSCULAR VOLUME 77.3 fl (82.0-101.0); MEAN PLATELET VOLUME 7.8 fl (7.4-10.4); MONOCYTE # 0.7 10^3/ul (0.3-0.9); MONOCYTES % 7.2 % (0.0-11.0); NEUTROPHIL # 6.9 10^3/ul (1.6-7.5); NEUTROPHILS % 72.6 % (39.0-77.0); PLATELET COUNT 310 10^3/UL (140-440); RED BLOOD COUNT 3.82 10^6/ul (4.70-6.10); RED CELL DISTRIBUTION WIDTH 21.4 % (11.5-14.5); UNCORRECTED WBC 9.6 10^3/ul (4.8-10.8); WHITE BLOOD COUNT 9.6 10^3/ul (4.8-10.8)
[2016-08-22 10:14] LABS: CONDITION 1; LH ANALYZER COMMENTS 1
[2016-08-22 10:24] LABS: POTASSIUM 4.4 mmol/L (3.5-5.1)
[2016-08-22 10:27] LABS: CREATININE 1.09 mg/dl (0.61-1.24)
[2016-08-22 10:28] LABS: CALCIUM 8.1 mg/dl (8.4-10.2)
[2016-08-22] MEDS: VANCOMYCIN 1.25 GM in SOD CHLORIDE 0.9% 250 ML IVPB SCH (12:42)
--- NOTE | 2016-08-22 14:15 | CONS ---
Date/Time of Note Date/Time of Note DATE: 08/22/16 TIME: 14:14 Consult Date/Type/Reason Admit Date/Time Aug 13, 2016 at 16:30 Initial Consult Date 08/13/16 Type of Consultation: ID Ordering Provider: KELLEN MEDINA MD Subjective up in a chair, looks comfortable, no fevers, nad Objective Vital Signs Date Time Temp Pulse Resp B/P Pulse Ox O2 Delivery O2 Flow Rate FiO2 08/22/16 14:00 74 22 91 Nasal Cannula 4.0 08/22/16 00:51 40 08/21/16 20:00 97.6 154/76 Intake and Output 08/21/16 08/21/16 08/22/16 15:00 23:00 07:00 Intake Total 675 ml 840 ml Output Total 1000 ml 500 ml Balance -325 ml 340 ml Results/Medications Result Diagram: 08/22/16 0900 08/22/16 0900 Results 24 hrs Laboratory Tests Test 08/21/16 17:31 08/21/16 21:36 08/22/16 02:39 08/22/16 08:00 Bedside Glucose 161 288 H 196 159 Test 08/22/16 09:00 08/22/16 11:45 08/22/16 11:51 Anion Gap 11 Basophils # 0.0 Basophils % 0.4 Blood Morphology Comment Blood Urea Nitrogen 43 H Calcium Level 8.1 L Carbon Dioxide Level 31 Chloride Level 96 L Creatinine 1.09 Eosinophils # 1.1 H Eosinophils % 11.1 H Glucose Level 176 Hematocrit 29.6 L Hemoglobin 9.4 L Lymphocytes # 0.8 Lymphocytes % 8.7 L Mean Corpuscular Hemoglobin 24.5 L Mean Corpuscular Hemoglobin Concent 31.7 L Mean Corpuscular Volume 77.3 L Mean Platelet Volume 7.8 Monocytes # 0.7 Monocytes % 7.2 Neutrophils # 6.9 Neutrophils % 72.6 Nucleated Red Blood Cells # 0.0 Nucleated Red Blood Cells % 0.0 Platelet Count 310 Potassium Level 4.4 Red Blood Count 3.82 L Red Cell Distribution Width 21.4 H Sodium Level 134 L White Blood Count 9.6 Bedside Glucose 193 Vancomycin Level Trough 11.9 Medications Current Medications Acetaminophen (Tylenol Tab) 650 mg Q6H PRN PO PAIN LEVEL 1-3 OR FEVER; Start 08/13/16 at 17:30 Acetaminophen/ Hydrocodone Bitart ([place] (5/325)) 1 tab Q6H PRN PO MODERATE PAIN LEVEL 4-6; Start 08/13/16 at 17:30 Morphine Sulfate (morphine) 2 mg Q4H PRN IV SEVERE PAIN LEVEL 7-10 Last administered on 08/13/16 17:58; Admin Dose 2 MG; Start 08/13/16 at 17:30 Docusate Sodium (Colace) 100 mg Q12H PRN PO CONSTIPATION; Start 08/13/16 at 17 :30 Famotidine (Pepcid) 20 mg Q12 PO Last administered on 08/22/16 08:57; Admin Dose 20 MG; Start 08/13/16 at 21:00 Heparin Sodium (Porcine) (Heparin (5000 Units/0.5 ml)) 5,000 unit Q12 SC Last administered on 08/22/16 09:05; Admin Dose 5,000 UNIT; Start 08/13/16 at 21:00 Allopurinol (Zyloprim) 100 mg DAILY PO Last administered on 08/22/16 08:57; Admin Dose 100 MG; Start 08/14/16 at 09:00 Ascorbic Acid (Vitamin C) 500 mg DAILY PO Last administered on 08/22/16 08:56 ; Admin Dose 500 MG; Start 08/13/16 at 18:00 Aspirin (Halfprin) 81 mg DAILY PO Last administered on 08/22/16 08:56; Admin Dose 81 MG; Start 08/14/16 at 09:00 Atorvastatin Calcium (Lipitor) 10 mg QHS PO Last administered on 08/21/16 20: 30; Admin Dose 10 MG; Start 08/13/16 at 21:00 Cholecalciferol (Vitamin D) 1,000 unit DAILY PO Last administered on 08/22/16 08:55; Admin Dose 1,000 UNIT; Start 08/14/16 at 09:00 Ferrous Sulfate (Ferrous Sulfate (Ec)) 325 mg BID PO Last administered on 08:59; Admin Dose 325 MG; Start 08/13/16 at 21:00 Fish Oil (Fish Oil) 1,000 mg DAILY PO Last administered on 08/22/16 09:01; Admin Dose 1,000 MG; Start 08/14/16 at 09:00 Lactobacillus Acidoph/Bulgaricus (Floranex) 1 tab TID PO Last administered on 08/22/16 12:41; Admin Dose 1 TAB; Start 08/13/16 at 21:00 Metoprolol Tartrate (Lopressor) 12.5 mg BID PO Last administered on 08/22/16 08:59; Admin Dose 12.5 MG; Start 08/13/16 at 21:00 Pregabalin (Lyrica) 50 mg TID PO Last administered on 08/22/16 12:41; Admin Dose 50 MG; Start 08/13/16 at 21:00 Pyridoxine HCl (Vitamin B6) 100 mg DAILY PO Last administered on 08/22/16 08: 56; Admin Dose 100 MG; Start 08/14/16 at 09:00 Simethicone (Mylicon) 80 mg Q6H PRN PO INTESTINAL SPASMS/CRAMPING Last administered on 08/16/16at 15:27; Admin Dose 80 MG; Start 08/13/16 at 17:30 Vitamin E (Vitamin E) 400 units DAILY PO Last administered on 08/22/16 08:56; Admin Dose 400 UNITS; Start 08/14/16 at 09:00 Fluoxetine HCl (Prozac) 20 mg DAILY PO Last administered on 08/22/16 08:56; Admin Dose 20 MG; Start 08/14/16 at 09:00 Miscellaneous Information 1 ea NOTE XX ; Start 08/13/16 at 18:00 Glucose (Glutose) 15 gm Q15M PRN PO DECREASED GLUCOSE; Start 08/13/16 at 18:00 Glucose (Glutose) 22.5 gm Q15M PRN PO DECREASED GLUCOSE; Start 08/13/16 at 18: 00 Dextrose (D50w Syringe) 25 ml Q15M PRN IV DECREASED GLUCOSE; Start 08/13/16 at 18:00 Dextrose (D50w Syringe) 50 ml Q15M PRN IV DECREASED GLUCOSE; Start 08/13/16 at 18:00 Glucagon (Glucagen) 1 mg Q15M PRN IM DECREASED GLUCOSE; Start 08/13/16 at 18: 00 Glucose (Glutose) 15 gm Q15M PRN BUCCAL DECREASED GLUCOSE; Start 08/13/16 at 18:00 Sodium Hypochlorite (Dakin'S (1/4 Strength)) 1 applic DAILY IRR Last administered on 08/22/16at 09:01; Admin Dose 1 APPLIC; Start 08/13/16 at 20:00 Acetaminophen/ Hydrocodone Bitart ([place] (5/325)) 2 tab Q6H PRN PO MODERATE PAIN LEVEL 4-6 Last administered on 08/14/16 13:03; Admin Dose 2 TAB; Start 08/14/16 at 13:00 IV Flush (NS 10 ml) 10 ml PRN PRN IV IV PTOTOCOL; Start 08/14/16 at 17:00 Acetylcysteine (Nac) 600 mg BID PO Last administered on 08/22/16at 08:55; Admin Dose 600 MG; Start 08/16/16 at 21:00 Ondansetron HCl (Zofran Inj) 4 mg Q4H PRN IV NAUSEA AND/OR VOMITING; Start 08/16/16 at 12:30 Zolpidem Tartrate (Ambien) 10 mg HS PRN PO INSOMNIA Last administered on 22:15; Admin Dose 10 MG; Start 08/16/16 at 21:00 Lorazepam (Ativan) 1 mg Q6 PRN PO ANXIETY Last administered on 08/18/16 14:37 ; Admin Dose 1 MG; Start 08/18/16 at 14:30 Insulin Glargine (Lantus) 15 unit QHS SC Last administered on 08/21/16 21:41; Admin Dose 15 UNIT; Start 08/19/16 at 21:00 Diagnostic Test (Pha) (Accucheck) 1 ea 02 XX Last administered on 08/21/16 02: 00; Admin Dose 1 EA; Start 08/20/16 at 02:00 Phenol 1 lozenge 1 lozenge Q1H PRN MT DRY MOUTH Last administered on 08/20/16 21:28; Admin Dose 1 LOZENGE; Start 08/20/16 at 20:30 Bumetanide 1.5 mg/ Dextrose 25 ml @ 50 mls/hr BID@06,14 IV Last administered on 08/22/16 06:34; Admin Dose 50 MLS/HR; Start 08/21/16 at 14:00 Vancomycin HCl/ Sodium Chloride (Vancocin/NS) 250 ml @ 83.333 mls/ hr Q24H IVPB Last administered on 08/22/16 12:42; Admin Dose 83.333 MLS/HR; Start 08/22/16 at 12:00 Assessment/Plan Chief Complaint/Hosp Course MICROBIOLOGY: 08/13/16 Bld cx+ [facility] DIAGNOSTICS: MRI revealed cellulitis and osteomyelitis of the left first toe. ANTIMICROBIALS: Vancomycin Urinalysis on admission was negative. PHYSICAL EXAMINATION: GENERAL: Obese, well-developed, middle-aged white man who is sitting in a chair. Patient is in no distress. HEENT: Head atraumatic, normocephalic. Sclerae anicteric. Buccal mucosa dry. NECK: Supple, trachea midline. CHEST: Rise symmetrical. Breath sounds clear, diminished to bases. HEART: S1, S2. ABDOMEN: Soft, bowel tones present. EXTREMITIES: Bilateral Patrick wraps. ASSESSMENT: 1. Bilateral lower extremities acute on chronic cellulitis with chronic venous stasis and left toe osteomyelitis. 2. Systemic inflammatory response syndrome 2 to above. 3. S/p septicemia==>KENAN 4. Questionable pneumonia as per chest x-ray. 5. Morbid obesity. 6. Atrial fibrillation, chronic. 7. Chronic kidney disease. 8. PAD==> s/p angiogram PLAN: Clinically stable, repeat bld cx negative, continue abx for 6-8 weeks, f/ u with podiatry outpatient, card/renal rec-s [facility] staff Problems: JAMEY VAZQUEZ NP Aug 22, 2016 14:15
--- NOTE | 2016-08-22 15:58 | PN ---
Date/Time of Note Date/Time of Note DATE: 08/22/16 TIME: 15:55 Assessment/Plan VTE Prophylaxis VTE Prophylaxis Intervention: heparin Lines/Catheters IV Catheter Type (from Nrs): PICC Line Central line still needed: Yes Assessment/Plan Chief Complaint/Hosp Course Assessment and plan 1. Left greater toe osteomyelitis/ cellulitis. Continue antibiotics. (Will need 6 weeks of antibiotics per ID). Patient assessed by vascular surgeon. Continue recommendations 2. Leukocytosis secondary to #1. At this time. Remains afebrile. Continue on antibiotics 3. Acute on chronic respiratory failure. Patient is reported to be oxygen dependent at home. Continue on O2 supplement. Titrate down start as tolerated. Continue BiPAP as needed. Pulmonary following. 4. Acute on chronic kidney disease. Diuretics renally dosed. avoid nephrotoxic medications possible. Continue with nephrology recommendations. 5. Congestive heart failure with diastolic dysfunction. Continue on diuretics. Aspirin 6. Type 2 diabetes. Patient was noted with recent A1c of 5.8. Continue on insulin siding scale. Continue carbohydrate controlled diet 7. Essential hypertension. Continue antihypertensives and adjust as needed 8. History of atrial fibrillation. Continue on heparin 9. Dyslipidemia. cont statin 10. History of gout. Continue allopurinol 11. Major depression. Continue on SSRI 12. Morbid obesity. Weight reduction advised GERD prophylaxis: Pepcid DVT prophylaxis: Heparin Disposition and plan: Continue titrate down O2 as tolerated.monitor renal function. diuretics per nephro. renal function improved. d/c when cleared by consultants Discussed plan of care with Dr. Bowers Problems: Subjective 24 Hr Interval Summary Free Text/Dictation reports little better breathing at this time. Does state he has been gaining water weight Exam/Review of Systems Vital Signs Vitals Vital Signs Date Time Temp Pulse Resp B/P Pulse Ox O2 Delivery O2 Flow Rate FiO2 08/22/16 14:00 74 22 91 Nasal Cannula 4.0 08/22/16 00:51 40 08/21/16 20:00 97.6 154/76 Intake and Output 08/21/16 08/21/16 08/22/16 15:00 23:00 07:00 Intake Total 675 ml 840 ml Output Total 1000 ml 500 ml Balance -325 ml 340 ml Exam General: No acute signs or symptoms of distress Eyes: pupils equal round, Anicteric sclera Neck: Supple nontender, no JVD Cardiac: S1, S2 auscultated, regular rhythm and rate Pulmonary: Diminished at lung bases. No obvious wheezing or rhonchi auscultated GI: Abdomen soft nontender nondistended, bowel sounds active Extremities: Edema seen bilateral lower extremities posterior Skin: dressing bilateral lower extremities clean dry and intact. Brownish discoloration of bilateral lower extremities Neurologic: Alert to person place and time and situation Results Result Diagram: 08/22/16 0900 08/22/16 0900 Results 24 hrs Laboratory Tests Test 08/21/16 17:31 08/21/16 21:36 08/22/16 02:39 08/22/16 08:00 Bedside Glucose 161 288 H 196 159 Test 08/22/16 09:00 08/22/16 11:45 08/22/16 11:51 Anion Gap 11 Basophils # 0.0 Basophils % 0.4 Blood Morphology Comment Blood Urea Nitrogen 43 H Calcium Level 8.1 L Carbon Dioxide Level 31 Chloride Level 96 L Creatinine 1.09 Eosinophils # 1.1 H Eosinophils % 11.1 H Glucose Level 176 Hematocrit 29.6 L Hemoglobin 9.4 L Lymphocytes # 0.8 Lymphocytes % 8.7 L Mean Corpuscular Hemoglobin 24.5 L Mean Corpuscular Hemoglobin Concent 31.7 L Mean Corpuscular Volume 77.3 L Mean Platelet Volume 7.8 Monocytes # 0.7 Monocytes % 7.2 Neutrophils # 6.9 Neutrophils % 72.6 Nucleated Red Blood Cells # 0.0 Nucleated Red Blood Cells % 0.0 Platelet Count 310 Potassium Level 4.4 Red Blood Count 3.82 L Red Cell Distribution Width 21.4 H Sodium Level 134 L White Blood Count 9.6 Bedside Glucose 193 Vancomycin Level Trough 11.9 Medications Medications Current Medications Acetaminophen (Tylenol Tab) 650 mg Q6H PRN PO PAIN LEVEL 1-3 OR FEVER; Start 08/13/16 at 17:30 Acetaminophen/ Hydrocodone Bitart ([place] (5/325)) 1 tab Q6H PRN PO MODERATE PAIN LEVEL 4-6; Start 08/13/16 at 17:30 Morphine Sulfate (morphine) 2 mg Q4H PRN IV SEVERE PAIN LEVEL 7-10 Last administered on 08/13/16at 17:58; Admin Dose 2 MG; Start 08/13/16 at 17:30 Docusate Sodium (Colace) 100 mg Q12H PRN PO CONSTIPATION; Start 08/13/16 at 17 :30 Famotidine (Pepcid) 20 mg Q12 PO Last administered on 08/22/16 08:57; Admin Dose 20 MG; Start 08/13/16 at 21:00 Heparin Sodium (Porcine) (Heparin (5000 Units/0.5 ml)) 5,000 unit Q12 SC Last administered on 08/22/16 09:05; Admin Dose 5,000 UNIT; Start 08/13/16 at 21:00 Allopurinol (Zyloprim) 100 mg DAILY PO Last administered on 08/22/16 08:57; Admin Dose 100 MG; Start 08/14/16 at 09:00 Ascorbic Acid (Vitamin C) 500 mg DAILY PO Last administered on 08/22/16 08:56 ; Admin Dose 500 MG; Start 08/13/16 at 18:00 Aspirin (Halfprin) 81 mg DAILY PO Last administered on 08/22/16 08:56; Admin Dose 81 MG; Start 08/14/16 at 09:00 Atorvastatin Calcium (Lipitor) 10 mg QHS PO Last administered on 08/21/16 20: 30; Admin Dose 10 MG; Start 08/13/16 at 21:00 Cholecalciferol (Vitamin D) 1,000 unit DAILY PO Last administered on 08/22/16 08:55; Admin Dose 1,000 UNIT; Start 08/14/16 at 09:00 Ferrous Sulfate (Ferrous Sulfate (Ec)) 325 mg BID PO Last administered on 08:59; Admin Dose 325 MG; Start 08/13/16 at 21:00 Fish Oil (Fish Oil) 1,000 mg DAILY PO Last administered on 08/22/16 09:01; Admin Dose 1,000 MG; Start 08/14/16 at 09:00 Lactobacillus Acidoph/Bulgaricus (Floranex) 1 tab TID PO Last administered on 08/22/16 12:41; Admin Dose 1 TAB; Start 08/13/16 at 21:00 Metoprolol Tartrate (Lopressor) 12.5 mg BID PO Last administered on 08/22/16 08:59; Admin Dose 12.5 MG; Start 08/13/16 at 21:00 Pregabalin (Lyrica) 50 mg TID PO Last administered on 12/7/16at 12:41; Admin Dose 50 MG; Start 08/13/16 at 21:00 Pyridoxine HCl (Vitamin B6) 100 mg DAILY PO Last administered on 08/22/16at 08: 56; Admin Dose 100 MG; Start 08/14/16 at 09:00 Simethicone (Mylicon) 80 mg Q6H PRN PO INTESTINAL SPASMS/CRAMPING Last administered on 08/16/16at 15:27; Admin Dose 80 MG; Start 08/13/16 at 17:30 Vitamin E (Vitamin E) 400 units DAILY PO Last administered on 08/22/16at 08:56; Admin Dose 400 UNITS; Start 08/14/16 at 09:00 Fluoxetine HCl (Prozac) 20 mg DAILY PO Last administered on 08/22/16at 08:56; Admin Dose 20 MG; Start 08/14/16 at 09:00 Miscellaneous Information 1 ea NOTE XX ; Start 08/13/16 at 18:00 Glucose (Glutose) 15 gm Q15M PRN PO DECREASED GLUCOSE; Start 08/13/16 at 18:00 Glucose (Glutose) 22.5 gm Q15M PRN PO DECREASED GLUCOSE; Start 08/13/16 at 18: 00 Dextrose (D50w Syringe) 25 ml Q15M PRN IV DECREASED GLUCOSE; Start 08/13/16 at 18:00 Dextrose (D50w Syringe) 50 ml Q15M PRN IV DECREASED GLUCOSE; Start 08/13/16 at 18:00 Glucagon (Glucagen) 1 mg Q15M PRN IM DECREASED GLUCOSE; Start 08/13/16 at 18: 00 Glucose (Glutose) 15 gm Q15M PRN BUCCAL DECREASED GLUCOSE; Start 08/13/16 at 18:00 Sodium Hypochlorite (Dakin'S (1/4 Strength)) 1 applic DAILY IRR Last administered on 08/22/16at 09:01; Admin Dose 1 APPLIC; Start 08/13/16 at 20:00 Acetaminophen/ Hydrocodone Bitart ([place] (5/325)) 2 tab Q6H PRN PO MODERATE PAIN LEVEL 4-6 Last administered on 08/14/16at 13:03; Admin Dose 2 TAB; Start 08/14/16 at 13:00 IV Flush (NS 10 ml) 10 ml PRN PRN IV IV PTOTOCOL; Start 08/14/16 at 17:00 Acetylcysteine (Nac) 600 mg BID PO Last administered on 08/22/16 08:55; Admin Dose 600 MG; Start 08/16/16 at 21:00 Ondansetron HCl (Zofran Inj) 4 mg Q4H PRN IV NAUSEA AND/OR VOMITING; Start 08/16/16 at 12:30 Zolpidem Tartrate (Ambien) 10 mg HS PRN PO INSOMNIA Last administered on 22:15; Admin Dose 10 MG; Start 08/16/16 at 21:00 Lorazepam (Ativan) 1 mg Q6 PRN PO ANXIETY Last administered on 08/18/16 14:37 ; Admin Dose 1 MG; Start 08/18/16 at 14:30 Insulin Glargine (Lantus) 15 unit QHS SC Last administered on 08/21/16 21:41; Admin Dose 15 UNIT; Start 08/19/16 at 21:00 Diagnostic Test (Pha) (Accucheck) 1 ea 02 XX Last administered on 08/21/16 02: 00; Admin Dose 1 EA; Start 08/20/16 at 02:00 Phenol 1 lozenge 1 lozenge Q1H PRN MT DRY MOUTH Last administered on 08/20/16 21:28; Admin Dose 1 LOZENGE; Start 08/20/16 at 20:30 Bumetanide 1.5 mg/ Dextrose 25 ml @ 50 mls/hr BID@06,14 IV Last administered on 08/22/16 06:34; Admin Dose 50 MLS/HR; Start 08/21/16 at 14:00 Vancomycin HCl/ Sodium Chloride (Vancocin/NS) 250 ml @ 83.333 mls/ hr Q24H IVPB Last administered on 08/22/16 12:42; Admin Dose 83.333 MLS/HR; Start 08/22/16 at 12:00 GIUSEPPE BREAUX Aug 22, 2016 15:58
--- NOTE | 2016-08-22 19:51 | CONS ---
Date/Time of Note Date/Time of Note DATE: 08/22/16 TIME: 19:49 Assessment/Plan Assessment/Plan Additional Assessment/Plan 60 yo Male with 1) LORNA on CKD, Pre-Renal in the setting of diuretic Rx 2) Left toe cellulits R/o OM 3) HTN, Chronic 4) Diastolic Heart Failure, Chronic 5) Pulm HTN 6) Anema, Chroinc 7) RLL Patchy Consolidation 8) Anasarca Renal function overall stable and cont to improve Will cont to monitor renal function, UO and electrolytes Will cont Bumex to 1.5 mg IV BID Cont 1.5L Fluid restriction Daily weights. Consultation Date/Type/Reason Admit Date/Time Aug 13, 2016 at 16:30 Initial Consult Date 08/13/16 Type of Consultation: Nephrolgy Referring Provider: KELLEN MEDINA MD Exam/Review of Systems Vital Signs Vitals Vital Signs Date Time Temp Pulse Resp B/P Pulse Ox O2 Delivery O2 Flow Rate FiO2 08/22/16 17:47 4.0 08/22/16 17:46 80 20 92 Nasal Cannula 08/22/16 08:00 97.5 157/76 08/22/16 00:51 40 Intake and Output 08/21/16 08/21/16 08/22/16 15:00 23:00 07:00 Intake Total 675 ml 840 ml Output Total 1000 ml 500 ml Balance -325 ml 340 ml Exam Constitutional: alert, oriented, No distress ENMT: mucosa pink and moist Respiratory: No labored breathing Cardiovascular: edema Extremities: pitting pedal edema 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: No lethargic Skin: No diaphoresis Results Result Diagram: 08/22/16 0908/22/16 0900 Results 24 hrs Laboratory Tests Test 08/21/16 21:36 08/22/16 02:39 08/22/16 08:00 08/22/16 09:00 Bedside Glucose 288 H 196 159 Anion Gap 11 Basophils # 0.0 Basophils % 0.4 Blood Morphology Comment Blood Urea Nitrogen 43 H Calcium Level 8.1 L Carbon Dioxide Level 31 Chloride Level 96 L Creatinine 1.09 Eosinophils # 1.1 H Eosinophils % 11.1 H Glucose Level 176 Hematocrit 29.6 L Hemoglobin 9.4 L Lymphocytes # 0.8 Lymphocytes % 8.7 L Mean Corpuscular Hemoglobin 24.5 L Mean Corpuscular Hemoglobin Concent 31.7 L Mean Corpuscular Volume 77.3 L Mean Platelet Volume 7.8 Monocytes # 0.7 Monocytes % 7.2 Neutrophils # 6.9 Neutrophils % 72.6 Nucleated Red Blood Cells # 0.0 Nucleated Red Blood Cells % 0.0 Platelet Count 310 Potassium Level 4.4 Red Blood Count 3.82 L Red Cell Distribution Width 21.4 H Sodium Level 134 L White Blood Count 9.6 Test 08/22/16 11:45 08/22/16 11:51 08/22/16 17:03 Bedside Glucose 193 155 Vancomycin Level Trough 11.9 Medications Medications Current Medications Acetaminophen (Tylenol Tab) 650 mg Q6H PRN PO PAIN LEVEL 1-3 OR FEVER; Start 08/13/16 at 17:30 Acetaminophen/ Hydrocodone Bitart ([place] (5/325)) 1 tab Q6H PRN PO MODERATE PAIN LEVEL 4-6; Start 08/13/16 at 17:30 Morphine Sulfate (morphine) 2 mg Q4H PRN IV SEVERE PAIN LEVEL 7-10 Last administered on 08/13/16at 17:58; Admin Dose 2 MG; Start 08/13/16 at 17:30 Docusate Sodium (Colace) 100 mg Q12H PRN PO CONSTIPATION; Start 08/13/16 at 17 :30 Famotidine (Pepcid) 20 mg Q12 PO Last administered on 08/22/16at 08:57; Admin Dose 20 MG; Start 08/13/16 at 21:00 Heparin Sodium (Porcine) (Heparin (5000 Units/0.5 ml)) 5,000 unit Q12 SC Last administered on 08/22/16at 09:05; Admin Dose 5,000 UNIT; Start 08/13/16 at 21:00 Allopurinol (Zyloprim) 100 mg DAILY PO Last administered on 08/22/16 08:57; Admin Dose 100 MG; Start 08/14/16 at 09:00 Ascorbic Acid (Vitamin C) 500 mg DAILY PO Last administered on 08/22/16at 08:56 ; Admin Dose 500 MG; Start 08/13/16 at 18:00 Aspirin (Halfprin) 81 mg DAILY PO Last administered on 08/22/16 08:56; Admin Dose 81 MG; Start 08/14/16 at 09:00 Atorvastatin Calcium (Lipitor) 10 mg QHS PO Last administered on 08/21/16 20: 30; Admin Dose 10 MG; Start 08/13/16 at 21:00 Cholecalciferol (Vitamin D) 1,000 unit DAILY PO Last administered on 08/22/16 08:55; Admin Dose 1,000 UNIT; Start 08/14/16 at 09:00 Ferrous Sulfate (Ferrous Sulfate (Ec)) 325 mg BID PO Last administered on 08:59; Admin Dose 325 MG; Start 08/13/16 at 21:00 Fish Oil (Fish Oil) 1,000 mg DAILY PO Last administered on 08/22/16 09:01; Admin Dose 1,000 MG; Start 08/14/16 at 09:00 Lactobacillus Acidoph/Bulgaricus (Floranex) 1 tab TID PO Last administered on 08/22/16 12:41; Admin Dose 1 TAB; Start 08/13/16 at 21:00 Metoprolol Tartrate (Lopressor) 12.5 mg BID PO Last administered on 08/22/16 08:59; Admin Dose 12.5 MG; Start 08/13/16 at 21:00 Pregabalin (Lyrica) 50 mg TID PO Last administered on 08/22/16 12:41; Admin Dose 50 MG; Start 08/13/16 at 21:00 Pyridoxine HCl (Vitamin B6) 100 mg DAILY PO Last administered on 08/22/16 08: 56; Admin Dose 100 MG; Start 08/14/16 at 09:00 Simethicone (Mylicon) 80 mg Q6H PRN PO INTESTINAL SPASMS/CRAMPING Last administered on 08/16/16 15:27; Admin Dose 80 MG; Start 08/13/16 at 17:30 Vitamin E (Vitamin E) 400 units DAILY PO Last administered on 08/22/16 08:56; Admin Dose 400 UNITS; Start 08/14/16 at 09:00 Fluoxetine HCl (Prozac) 20 mg DAILY PO Last administered on 08/22/16 08:56; Admin Dose 20 MG; Start 08/14/16 at 09:00 Miscellaneous Information 1 ea NOTE XX ; Start 08/13/16 at 18:00 Glucose (Glutose) 15 gm Q15M PRN PO DECREASED GLUCOSE; Start 08/13/16 at 18:00 Glucose (Glutose) 22.5 gm Q15M PRN PO DECREASED GLUCOSE; Start 08/13/16 at 18: 00 Dextrose (D50w Syringe) 25 ml Q15M PRN IV DECREASED GLUCOSE; Start 08/13/16 at 18:00 Dextrose (D50w Syringe) 50 ml Q15M PRN IV DECREASED GLUCOSE; Start 08/13/16 at 18:00 Glucagon (Glucagen) 1 mg Q15M PRN IM DECREASED GLUCOSE; Start 08/13/16 at 18: 00 Glucose (Glutose) 15 gm Q15M PRN BUCCAL DECREASED GLUCOSE; Start 08/13/16 at 18:00 Sodium Hypochlorite (Dakin'S (1/4 Strength)) 1 applic DAILY IRR Last administered on 08/22/16at 09:01; Admin Dose 1 APPLIC; Start 08/13/16 at 20:00 Acetaminophen/ Hydrocodone Bitart ([place] (5/325)) 2 tab Q6H PRN PO MODERATE PAIN LEVEL 4-6 Last administered on 08/14/16at 13:03; Admin Dose 2 TAB; Start 08/14/16 at 13:00 IV Flush (NS 10 ml) 10 ml PRN PRN IV IV PTOTOCOL; Start 08/14/16 at 17:00 Acetylcysteine (Nac) 600 mg BID PO Last administered on 08/22/16at 08:55; Admin Dose 600 MG; Start 08/16/16 at 21:00 Ondansetron HCl (Zofran Inj) 4 mg Q4H PRN IV NAUSEA AND/OR VOMITING; Start 08/16/16 at 12:30 Zolpidem Tartrate (Ambien) 10 mg HS PRN PO INSOMNIA Last administered on at 22:15; Admin Dose 10 MG; Start 08/16/16 at 21:00 Lorazepam (Ativan) 1 mg Q6 PRN PO ANXIETY Last administered on 08/18/16at 14:37 ; Admin Dose 1 MG; Start 08/18/16 at 14:30 Insulin Glargine (Lantus) 15 unit QHS SC Last administered on 08/21/16at 21:41; Admin Dose 15 UNIT; Start 08/19/16 at 21:00 Diagnostic Test (Pha) (Accucheck) 1 ea 02 XX Last administered on 08/21/16at 02: 00; Admin Dose 1 EA; Start 08/20/16 at 02:00 Phenol 1 lozenge 1 lozenge Q1H PRN MT DRY MOUTH Last administered on 08/20/16at 21:28; Admin Dose 1 LOZENGE; Start 08/20/16 at 20:30 Bumetanide 1.5 mg/ Dextrose 25 ml @ 50 mls/hr BID@06,14 IV Last administered on 08/22/16at 16:20; Admin Dose 50 MLS/HR; Start 08/21/16 at 14:00 Vancomycin HCl/ Sodium Chloride (Vancocin/NS) 250 ml @ 83.333 mls/ hr Q24H IVPB Last administered on 08/22/16at 12:42; Admin Dose 83.333 MLS/HR; Start 08/22/16 at 12:00 Lorazepam (Ativan) 1 mg HS PRN PO ANXIETY, HELP WITH SLEEP; Start 08/22/16 at 18:30 DYAN FRANKLIN MD Aug 22, 2016 19:51
[2016-08-22 20:00] VITALS: BP 140/65; PULSE 75; RESP 20
[2016-08-22] MEDS: ATORVASTATIN 10 MG TAB PO SCH (21:25)
[2016-08-22] MEDS: INSULIN GLARGINE [LANtus] 3 ML PEN SC SCH (21:30)
[2016-08-22] MEDS: LORAZEPAM 1 MG TAB PO PRN (22:08)
[2016-08-22] MEDS: ZOLPIDEM 5 MG TAB PO PRN (22:08)
--- NOTE | 2016-08-22 22:36 | PN ---
Date/Time of Note Date/Time of Note DATE: 08/22/16 TIME: 22:33 Assessment/Plan Lines/Catheters IV C[facility] Type [facility]from [facility] PICC Line Assessment/Plan Problems: (1) Osteomyelitis of left foot Comment: I would like patient to continue IV antibiotics as per infectious disease recommendations. Daily dressing changes to continue. Partial weightbearing is permitted. Patient will be followed in-house. Upon discharge , patient will be followed at the amputation prevention center. Prognosis is guarded and patient is at risk for limb loss. (2) Leg edema, right (3) Leg edema, left (4) Venous insufficiency (chronic) (peripheral) (5) Diabetic foot infection Status: Acute Subjective 24 Hr Interval Summary Patient was seen at bedside. He is in no acute distress. He says that after the angiogram he starts to feel a little bit warmer in the feet. Reports that his left foot is improving but he has osteomyelitis and he is receiving IV antibiotics. He has a PICC line which was placed last week. Patient denies any fever or chills. 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 Patient denies any trauma and reports no other changes. Constitutional: no complaints Pain Control: well controlled Exam/Review of Systems Vital Signs Vitals Vital Signs Date Time Temp Pulse Resp B/P Pulse Ox O2 Delivery O2 Flow Rate FiO2 08/22/16 20:55 88 20 92 Nasal Cannula 4.0 08/22/16 08:00 97.5 157/76 08/22/16 00:51 40 Intake and Output 08/21/16 08/21/16 08/22/16 15:00 23:00 07:00 Intake Total 675 ml 840 ml Output Total 1000 ml 500 ml Balance -325 ml 340 ml Exam Free Text/Dictation Patient is morbidly obese in no acute distress. Left foot exam shows improvement with decrease in erythema. Patient has osteomyelitis of the left big toe. Extensive edema present in bilateral lower extremities. Patient has a PICC line placed in the right upper arm. Dorsalis pedis and posterior tibial pulses are not palpable secondary to the edema present. Protective sensation remains decreased to sharp, dull, vibratory and temperature stimuli. Labs and x -rays were reviewed. Results Result Diagram: 08/22/1689908/22/16899 NORMAN ACOSTA DPM Aug 22, 2016 22:36
[2016-08-22 22:45] VITALS: PULSE 75
[2016-08-23] MEDS: ALBUTEROL/IPRATROPIUM (NEB) 3 ML AMP HHN SCH ×6 (01:00→20:20)
[2016-08-23] MEDS: ACCUCHECK XX SCH (02:00)
[2016-08-23 02:11] VITALS: PULSE 83
[2016-08-23 05:45] VITALS: PULSE 85
[2016-08-23 06:00] LABS: BASOPHIL # 0.1 10^3/ul (0.0-0.1); BASOPHILS % 0.8 % (0.0-2.0); EOSINOPHILS % 10.8 % (0.0-7.0); HEMATOCRIT 30.2 % (42.0-52.0); HEMOGLOBIN 9.8 g/dl (14.0-18.0); LYMPHOCYTES # 0.8 10^3/ul (0.8-2.9); LYMPHOCYTES % 8.8 % (15.0-51.0); MEAN CORPUSCULAR HEMOGLOBIN 24.9 pg (29.0-33.0); MEAN CORPUSCULAR HGB CONC 32.4 g/dl (32.0-37.0); MEAN CORPUSCULAR VOLUME 77.1 fl (82.0-101.0); MEAN PLATELET VOLUME 7.7 fl (7.4-10.4); MONOCYTE # 0.9 10^3/ul (0.3-0.9); MONOCYTES % 9.8 % (0.0-11.0); NEUTROPHIL # 6.7 10^3/ul (1.6-7.5); NEUTROPHILS % 69.8 % (39.0-77.0); PLATELET COUNT 303 10^3/UL (140-440); RED BLOOD COUNT 3.92 10^6/ul (4.70-6.10); RED CELL DISTRIBUTION WIDTH 21.8 % (11.5-14.5); UNCORRECTED WBC 9.6 10^3/ul (4.8-10.8); WHITE BLOOD COUNT 9.6 10^3/ul (4.8-10.8)
[2016-08-23 06:10] LABS: POTASSIUM 4.5 mmol/L (3.5-5.1)
[2016-08-23 06:13] LABS: CREATININE 1.17 mg/dl (0.61-1.24)
[2016-08-23 06:14] LABS: CALCIUM 8.1 mg/dl (8.4-10.2)
[2016-08-23 06:24] LABS: CONDITION 1; LH ANALYZER COMMENTS 1
[2016-08-23] MEDS: DEXTROSE 5% IV SCH (06:25)
[2016-08-23] MEDS: BUMETANIDE IV SCH (06:25)
[2016-08-23 07:25] VITALS: BP 160/87; PULSE 84; RESP 24
[2016-08-23] MEDS: FAMOTIDINE 20 MG TAB PO SCH ×2 (08:20→20:58)
[2016-08-23] MEDS: CHOLECALCIFEROL 1,000 UNIT TAB PO SCH (08:20)
[2016-08-23] MEDS: LACTOBACILLUS CHEW TAB PO SCH ×3 (08:20→20:58)
[2016-08-23] MEDS: FISH OIL 1,000 MG CAP PO SCH (08:20)
[2016-08-23] MEDS: PYRIDOXINE 50 MG TAB PO SCH (08:20)
[2016-08-23] MEDS: FLUOXETINE 20 MG CAP PO SCH (08:20)
[2016-08-23] MEDS: ACETYLCYSTEINE 600 MG CAP PO SCH ×2 (08:20→20:58)
[2016-08-23] MEDS: PREGABALIN 25 MG CAP PO SCH ×3 (08:21→21:06)
[2016-08-23] MEDS: METOPROLOL 25 MG TAB PO SCH ×2 (08:21→21:02)
[2016-08-23] MEDS: VITAMIN E 400 UNITS CAP PO SCH (08:21)
[2016-08-23] MEDS: ASPIRIN (EC) 81 MG TAB PO SCH (08:21)
[2016-08-23] MEDS: ALLOPURINOL 100 MG TAB PO SCH (08:21)
[2016-08-23] MEDS: FERROUS SULFATE (EC) 325 MG TAB PO SCH ×2 (08:21→20:58)
[2016-08-23] MEDS: ASCORBIC ACID 500 MG TAB PO SCH (08:21)
[2016-08-23] MEDS: INSULIN ASPART [NOVOLOG] 3 ML PEN SC SCH ×7 (08:23→21:00)
[2016-08-23] MEDS: HEPARIN 5,000 UNIT/0.5 ML SYG SC SCH ×2 (08:24→21:06)
[2016-08-23] MEDS: SODIUM HYPOCHLORITE 0.125% 473 ML BTL IRR SCH (08:25)
--- NOTE | 2016-08-23 11:48 | CONS ---
Date/Time of Note Date/Time of Note DATE: 08/23/16 TIME: 11:44 Assessment/Plan Assessment/Plan Additional Assessment/Plan 60 yo Male with 1) LORNA on CKD, Pre-Renal in the setting of diuretic Rx 2) Left toe cellulits R/o OM 3) HTN, Chronic 4) Diastolic Heart Failure, Chronic 5) Pulm HTN 6) Anema, Chroinc 7) RLL Patchy Consolidation 8) Anasarca Renal function overall stable Bumex to 2mg pod bid Cont 1.5L Fluid restriction Daily weights. Pt would like to be discharged home with Home health and Physical therapy. Consultation Date/Type/Reason Admit Date/Time Aug 13, 2016 at 16:30 Initial Consult Date 08/13/16 Type of Consultation: Nephrolgy Referring Provider: KELLEN MEDINA MD Exam/Review of Systems Vital Signs Vitals Vital Signs Date Time Temp Pulse Resp B/P Pulse Ox O2 Delivery O2 Flow Rate FiO2 08/23/16 08:59 89 20 89 Nasal Cannula 2.0 08/23/16 07:25 98.2 160/87 08/23/16 05:45 40 Intake and Output 08/22/16 08/22/16 08/23/16 15:00 23:00 07:00 Intake Total 25 ml 875 ml 505 ml Output Total 1050 ml 1100 ml Balance 25 ml -175 ml -595 ml Exam Constitutional: No distress ENMT: mucosa pink and moist Neck: No jvd Respiratory: crackles/rales, No labored breathing Cardiovascular: edema, regular rate and rhythm Results Result Diagram: 08/23/16 0525 08/23/16 0525 Results 24 hrs Laboratory Tests Test 08/22/16 11:45 08/22/16 11:51 08/22/16 17:03 08/22/16 21:24 Bedside Glucose 193 155 157 Vancomycin Level Trough 11.9 Test 08/23/16 05:25 08/23/16 08:02 Anion Gap 16 Basophils # 0.1 Basophils % 0.8 Blood Morphology Comment Blood Urea Nitrogen 43 H Calcium Level 8.1 L Carbon Dioxide Level 29 Chloride Level 97 Creatinine 1.17 Eosinophils # 1.0 H Eosinophils % 10.8 H Glucose Level 132 # Hematocrit 30.2 L Hemoglobin 9.8 L Lymphocytes # 0.8 Lymphocytes % 8.8 L Mean Corpuscular Hemoglobin 24.9 L Mean Corpuscular Hemoglobin Concent 32.4 Mean Corpuscular Volume 77.1 L Mean Platelet Volume 7.7 Monocytes # 0.9 Monocytes % 9.8 Neutrophils # 6.7 Neutrophils % 69.8 Nucleated Red Blood Cells # 0.0 Nucleated Red Blood Cells % 0.0 Platelet Count 303 Potassium Level 4.5 Red Blood Count 3.92 L Red Cell Distribution Width 21.8 H Sodium Level 137 White Blood Count 9.6 Bedside Glucose 143 Medications Medications Current Medications Acetaminophen (Tylenol Tab) 650 mg Q6H PRN PO PAIN LEVEL 1-3 OR FEVER; Start 08/13/16 at 17:30 Acetaminophen/ Hydrocodone Bitart ([place] (5/325)) 1 tab Q6H PRN PO MODERATE PAIN LEVEL 4-6; Start 08/13/16 at 17:30 Morphine Sulfate (morphine) 2 mg Q4H PRN IV SEVERE PAIN LEVEL 7-10 Last administered on 08/13/16at 17:58; Admin Dose 2 MG; Start 08/13/16 at 17:30 Docusate Sodium (Colace) 100 mg Q12H PRN PO CONSTIPATION; Start 08/13/16 at 17 :30 Famotidine (Pepcid) 20 mg Q12 PO Last administered on 08/23/16at 08:20; Admin Dose 20 MG; Start 08/13/16 at 21:00 Heparin Sodium (Porcine) (Heparin (5000 Units/0.5 ml)) 5,000 unit Q12 SC Last administered on 08/23/16at 08:24; Admin Dose 5,000 UNIT; Start 08/13/16 at 21:00 Allopurinol (Zyloprim) 100 mg DAILY PO Last administered on 08/23/16 08:21; Admin Dose 100 MG; Start 08/14/16 at 09:00 Ascorbic Acid (Vitamin C) 500 mg DAILY PO Last administered on 08/23/16 08:21 ; Admin Dose 500 MG; Start 08/13/16 at 18:00 Aspirin (Halfprin) 81 mg DAILY PO Last administered on 08/23/16 08:21; Admin Dose 81 MG; Start 08/14/16 at 09:00 Atorvastatin Calcium (Lipitor) 10 mg QHS PO Last administered on 08/22/16at 21: 25; Admin Dose 10 MG; Start 08/13/16 at 21:00 Cholecalciferol (Vitamin D) 1,000 unit DAILY PO Last administered on 08/23/16 08:20; Admin Dose 1,000 UNIT; Start 08/14/16 at 09:00 Ferrous Sulfate (Ferrous Sulfate (Ec)) 325 mg BID PO Last administered on 08:21; Admin Dose 325 MG; Start 08/13/16 at 21:00 Fish Oil (Fish Oil) 1,000 mg DAILY PO Last administered on 08/23/16 08:20; Admin Dose 1,000 MG; Start 08/14/16 at 09:00 Lactobacillus Acidoph/Bulgaricus (Floranex) 1 tab TID PO Last administered on 08/23/16 08:20; Admin Dose 1 TAB; Start 08/13/16 at 21:00 Metoprolol Tartrate (Lopressor) 12.5 mg BID PO Last administered on 08/23/16 08:21; Admin Dose 12.5 MG; Start 08/13/16 at 21:00 Pregabalin (Lyrica) 50 mg TID PO Last administered on 08/23/16 08:21; Admin Dose 50 MG; Start 08/13/16 at 21:00 Pyridoxine HCl (Vitamin B6) 100 mg DAILY PO Last administered on 08/23/16 08: 20; Admin Dose 100 MG; Start 08/14/16 at 09:00 Simethicone (Mylicon) 80 mg Q6H PRN PO INTESTINAL SPASMS/CRAMPING Last administered on 08/16/16 15:27; Admin Dose 80 MG; Start 08/13/16 at 17:30 Vitamin E (Vitamin E) 400 units DAILY PO Last administered on 08/23/16 08:21; Admin Dose 400 UNITS; Start 08/14/16 at 09:00 Fluoxetine HCl (Prozac) 20 mg DAILY PO Last administered on 08/23/16 08:20; Admin Dose 20 MG; Start 08/14/16 at 09:00 Miscellaneous Information 1 ea NOTE XX ; Start 08/13/16 at 18:00 Glucose (Glutose) 15 gm Q15M PRN PO DECREASED GLUCOSE; Start 08/13/16 at 18:00 Glucose (Glutose) 22.5 gm Q15M PRN PO DECREASED GLUCOSE; Start 08/13/16 at 18: 00 Dextrose (D50w Syringe) 25 ml Q15M PRN IV DECREASED GLUCOSE; Start 08/13/16 at 18:00 Dextrose (D50w Syringe) 50 ml Q15M PRN IV DECREASED GLUCOSE; Start 08/13/16 at 18:00 Glucagon (Glucagen) 1 mg Q15M PRN IM DECREASED GLUCOSE; Start 08/13/16 at 18: 00 Glucose (Glutose) 15 gm Q15M PRN BUCCAL DECREASED GLUCOSE; Start 08/13/16 at 18:00 Sodium Hypochlorite (Dakin'S (1/4 Strength)) 1 applic DAILY IRR Last administered on 08/22/16at 09:01; Admin Dose 1 APPLIC; Start 08/13/16 at 20:00 Acetaminophen/ Hydrocodone Bitart ([place] (5/325)) 2 tab Q6H PRN PO MODERATE PAIN LEVEL 4-6 Last administered on 08/14/16at 13:03; Admin Dose 2 TAB; Start 08/14/16 at 13:00 IV Flush (NS 10 ml) 10 ml PRN PRN IV IV PTOTOCOL; Start 08/14/16 at 17:00 Acetylcysteine (Nac) 600 mg BID PO Last administered on 08/23/16at 08:20; Admin Dose 600 MG; Start 08/16/16 at 21:00 Ondansetron HCl (Zofran Inj) 4 mg Q4H PRN IV NAUSEA AND/OR VOMITING; Start 08/16/16 at 12:30 Zolpidem Tartrate (Ambien) 10 mg HS PRN PO INSOMNIA Last administered on at 22:08; Admin Dose 10 MG; Start 08/16/16 at 21:00 Lorazepam (Ativan) 1 mg Q6 PRN PO ANXIETY Last administered on 08/18/16at 14:37 ; Admin Dose 1 MG; Start 08/18/16 at 14:30 Insulin Glargine (Lantus) 15 unit QHS SC Last administered on 08/22/16at 21:30; Admin Dose 15 UNIT; Start 08/19/16 at 21:00 Diagnostic Test (Pha) (Accucheck) 1 ea 02 XX Last administered on 08/21/16at 02: 00; Admin Dose 1 EA; Start 08/20/16 at 02:00 Phenol 1 lozenge 1 lozenge Q1H PRN MT DRY MOUTH Last administered on 08/20/16 21:28; Admin Dose 1 LOZENGE; Start 08/20/16 at 20:30 Bumetanide 1.5 mg/ Dextrose 25 ml @ 50 mls/hr BID@06,14 IV Last administered on 08/23/16 06:25; Admin Dose 50 MLS/HR; Start 08/21/16 at 14:00 Vancomycin HCl/ Sodium Chloride (Vancocin/NS) 250 ml @ 83.333 mls/ hr Q24H IVPB Last administered on 08/22/16at 12:42; Admin Dose 83.333 MLS/HR; Start 08/22/16 at 12:00 Lorazepam (Ativan) 1 mg HS PRN PO ANXIETY, HELP WITH SLEEP Last administered on 08/22/16at 22:08; Admin Dose 1 MG; Start 08/22/16 at 18:30 DYAN FRANKLIN MD Aug 23, 2016 11:48
[2016-08-23] MEDS: VANCOMYCIN 1.25 GM in SOD CHLORIDE 0.9% 250 ML IVPB SCH (12:12)
--- NOTE | 2016-08-23 13:26 | CONS ---
Date/Time of Note Date/Time of Note DATE: 08/23/16 TIME: 13:24 Consult Date/Type/Reason Admit Date/Time Aug 13, 2016 at 16:30 Initial Consult Date 08/13/16 Type of Consultation: ID Ordering Provider: KELLEN MEDINA MD Subjective no acute changes, awake, looks comfortable, no fevers Objective Vital Signs Date Time Temp Pulse Resp B/P Pulse Ox O2 Delivery O2 Flow Rate FiO2 08/23/16 13:18 78 20 93 Nasal Cannula 4.0 08/23/16 07:25 98.2 160/87 08/23/16 05:45 40 Intake and Output 08/22/16 08/22/16 08/23/16 15:00 23:00 07:00 Intake Total 25 ml 875 ml 505 ml Output Total 1050 ml 1100 ml Balance 25 ml -175 ml -595 ml Results/Medications Result Diagram: 08/23/16 0525 08/23/16 0525 Results 24 hrs Laboratory Tests Test 08/22/16 17:03 08/22/16 21:24 08/23/16 05:25 08/23/16 08:02 Bedside Glucose 155 157 143 Anion Gap 16 Basophils # 0.1 Basophils % 0.8 Blood Morphology Comment Blood Urea Nitrogen 43 H Calcium Level 8.1 L Carbon Dioxide Level 29 Chloride Level 97 Creatinine 1.17 Eosinophils # 1.0 H Eosinophils % 10.8 H Glucose Level 132 # Hematocrit 30.2 L Hemoglobin 9.8 L Lymphocytes # 0.8 Lymphocytes % 8.8 L Mean Corpuscular Hemoglobin 24.9 L Mean Corpuscular Hemoglobin Concent 32.4 Mean Corpuscular Volume 77.1 L Mean Platelet Volume 7.7 Monocytes # 0.9 Monocytes % 9.8 Neutrophils # 6.7 Neutrophils % 69.8 Nucleated Red Blood Cells # 0.0 Nucleated Red Blood Cells % 0.0 Platelet Count 303 Potassium Level 4.5 Red Blood Count 3.92 L Red Cell Distribution Width 21.8 H Sodium Level 137 White Blood Count 9.6 Test 08/23/16 11:51 Bedside Glucose 195 Medications Current Medications Acetaminophen (Tylenol Tab) 650 mg Q6H PRN PO PAIN LEVEL 1-3 OR FEVER; Start 08/13/16 at 17:30 Acetaminophen/ Hydrocodone Bitart ([place] (5/325)) 1 tab Q6H PRN PO MODERATE PAIN LEVEL 4-6; Start 08/13/16 at 17:30 Morphine Sulfate (morphine) 2 mg Q4H PRN IV SEVERE PAIN LEVEL 7-10 Last administered on 08/13/16 17:58; Admin Dose 2 MG; Start 08/13/16 at 17:30 Docusate Sodium (Colace) 100 mg Q12H PRN PO CONSTIPATION; Start 08/13/16 at 17 :30 Famotidine (Pepcid) 20 mg Q12 PO Last administered on 08/23/16 08:20; Admin Dose 20 MG; Start 08/13/16 at 21:00 Heparin Sodium (Porcine) (Heparin (5000 Units/0.5 ml)) 5,000 unit Q12 SC Last administered on 08/23/16 08:24; Admin Dose 5,000 UNIT; Start 08/13/16 at 21:00 Allopurinol (Zyloprim) 100 mg DAILY PO Last administered on 08/23/16 08:21; Admin Dose 100 MG; Start 08/14/16 at 09:00 Ascorbic Acid (Vitamin C) 500 mg DAILY PO Last administered on 08/23/16 08:21 ; Admin Dose 500 MG; Start 08/13/16 at 18:00 Aspirin (Halfprin) 81 mg DAILY PO Last administered on 08/23/16 08:21; Admin Dose 81 MG; Start 08/14/16 at 09:00 Atorvastatin Calcium (Lipitor) 10 mg QHS PO Last administered on 08/22/16 21: 25; Admin Dose 10 MG; Start 08/13/16 at 21:00 Cholecalciferol (Vitamin D) 1,000 unit DAILY PO Last administered on 08/23/16 08:20; Admin Dose 1,000 UNIT; Start 08/14/16 at 09:00 Ferrous Sulfate (Ferrous Sulfate (Ec)) 325 mg BID PO Last administered on 08:21; Admin Dose 325 MG; Start 08/13/16 at 21:00 Fish Oil (Fish Oil) 1,000 mg DAILY PO Last administered on 08/23/16 08:20; Admin Dose 1,000 MG; Start 08/14/16 at 09:00 Lactobacillus Acidoph/Bulgaricus (Floranex) 1 tab TID PO Last administered on 08/23/16 12:12; Admin Dose 1 TAB; Start 08/13/16 at 21:00 Metoprolol Tartrate (Lopressor) 12.5 mg BID PO Last administered on 08/23/16at 08:21; Admin Dose 12.5 MG; Start 08/13/16 at 21:00 Pregabalin (Lyrica) 50 mg TID PO Last administered on 08/23/16at 12:12; Admin Dose 50 MG; Start 08/13/16 at 21:00 Pyridoxine HCl (Vitamin B6) 100 mg DAILY PO Last administered on 08/23/16at 08: 20; Admin Dose 100 MG; Start 08/14/16 at 09:00 Simethicone (Mylicon) 80 mg Q6H PRN PO INTESTINAL SPASMS/CRAMPING Last administered on 08/16/16at 15:27; Admin Dose 80 MG; Start 08/13/16 at 17:30 Vitamin E (Vitamin E) 400 units DAILY PO Last administered on 08/23/16at 08:21; Admin Dose 400 UNITS; Start 08/14/16 at 09:00 Fluoxetine HCl (Prozac) 20 mg DAILY PO Last administered on 08/23/16at 08:20; Admin Dose 20 MG; Start 08/14/16 at 09:00 Miscellaneous Information 1 ea NOTE XX ; Start 08/13/16 at 18:00 Glucose (Glutose) 15 gm Q15M PRN PO DECREASED GLUCOSE; Start 08/13/16 at 18:00 Glucose (Glutose) 22.5 gm Q15M PRN PO DECREASED GLUCOSE; Start 08/13/16 at 18: 00 Dextrose (D50w Syringe) 25 ml Q15M PRN IV DECREASED GLUCOSE; Start 08/13/16 at 18:00 Dextrose (D50w Syringe) 50 ml Q15M PRN IV DECREASED GLUCOSE; Start 08/13/16 at 18:00 Glucagon (Glucagen) 1 mg Q15M PRN IM DECREASED GLUCOSE; Start 08/13/16 at 18: 00 Glucose (Glutose) 15 gm Q15M PRN BUCCAL DECREASED GLUCOSE; Start 08/13/16 at 18:00 Sodium Hypochlorite (Dakin'S (1/4 Strength)) 1 applic DAILY IRR Last administered on 08/22/16at 09:01; Admin Dose 1 APPLIC; Start 08/13/16 at 20:00 Acetaminophen/ Hydrocodone Bitart ([place] (5/325)) 2 tab Q6H PRN PO MODERATE PAIN LEVEL 4-6 Last administered on 08/14/16 13:03; Admin Dose 2 TAB; Start 08/14/16 at 13:00 IV Flush (NS 10 ml) 10 ml PRN PRN IV IV PTOTOCOL; Start 08/14/16 at 17:00 Acetylcysteine (Nac) 600 mg BID PO Last administered on 08/23/16at 08:20; Admin Dose 600 MG; Start 08/16/16 at 21:00 Ondansetron HCl (Zofran Inj) 4 mg Q4H PRN IV NAUSEA AND/OR VOMITING; Start 08/16/16 at 12:30 Zolpidem Tartrate (Ambien) 10 mg HS PRN PO INSOMNIA Last administered on at 22:08; Admin Dose 10 MG; Start 08/16/16 at 21:00 Lorazepam (Ativan) 1 mg Q6 PRN PO ANXIETY Last administered on 08/18/16at 14:37 ; Admin Dose 1 MG; Start 08/18/16 at 14:30 Insulin Glargine (Lantus) 15 unit QHS SC Last administered on 08/22/16 21:30; Admin Dose 15 UNIT; Start 08/19/16 at 21:00 Diagnostic Test (Pha) (Accucheck) 1 ea 02 XX Last administered on 08/21/16at 02: 00; Admin Dose 1 EA; Start 08/20/16 at 02:00 Phenol 1 lozenge 1 lozenge Q1H PRN MT DRY MOUTH Last administered on 08/20/16at 21:28; Admin Dose 1 LOZENGE; Start 08/20/16 at 20:30 Bumetanide 1.5 mg/ Dextrose 25 ml @ 50 mls/hr BID@06,14 IV Last administered on 08/23/16 06:25; Admin Dose 50 MLS/HR; Start 08/21/16 at 14:00 Vancomycin HCl/ Sodium Chloride (Vancocin/NS) 250 ml @ 83.333 mls/ hr Q24H IVPB Last administered on 08/23/16 12:12; Admin Dose 83.333 MLS/HR; Start 08/22/16 at 12:00 Lorazepam (Ativan) 1 mg HS PRN PO ANXIETY, HELP WITH SLEEP Last administered on 08/22/16at 22:08; Admin Dose 1 MG; Start 08/22/16 at 18:30 Assessment/Plan Chief Complaint/Hosp Course MICROBIOLOGY: 08/13/16 Bld cx+ KENAN DIAGNOSTICS: MRI revealed cellulitis and osteomyelitis of the left first toe. ANTIMICROBIALS: Vancomycin Urinalysis on admission was negative. PHYSICAL EXAMINATION: GENERAL: Obese, well-developed, middle-aged white man who is sitting in a chair. Patient is in no distress. HEENT: Head atraumatic, normocephalic. Sclerae anicteric. Buccal mucosa dry. NECK: Supple, trachea midline. CHEST: Rise symmetrical. Breath sounds clear, diminished to bases. HEART: S1, S2. ABDOMEN: Soft, bowel tones present. EXTREMITIES: Bilateral Patrick wraps. ASSESSMENT: 1. Bilateral lower extremities acute on chronic cellulitis with chronic venous stasis and left toe osteomyelitis. 2. Systemic inflammatory response syndrome 2 to above. 3. S/p septicemia==>KENAN 4. Questionable pneumonia as per chest x-ray. 5. Morbid obesity. 6. Atrial fibrillation, chronic. 7. Chronic kidney disease. 8. PAD==> s/p angiogram PLAN: Clinically stable, repeat bld cx negative, continue abx for 6-8 weeks, f/ u with podiatry outpatient, card/renal rec-s [facility] staff Problems: JAMEY VAZQUEZ NP Aug 23, 2016 13:26
[2016-08-23] MEDS: HYDROCODONE/APAP (5/325) TAB PO PRN (13:46)
--- NOTE | 2016-08-23 15:47 | PN ---
Date/Time of Note Date/Time of Note DATE: 08/23/16 TIME: 15:44 Assessment/Plan VTE Prophylaxis VTE Prophylaxis Intervention: heparin Lines/Catheters IV Catheter Type (from Nrs): PICC Line Central line still needed: Yes Assessment/Plan Chief Complaint/Hosp Course Assessment and plan 1. Left greater toe osteomyelitis/ cellulitis. Continue antibiotics. (Will need 6 weeks of antibiotics per ID). Patient assessed by vascular surgeon. Continue recommendations 2. Leukocytosis secondary to #1. At this time. Remains afebrile. Continue on antibiotics 3. Acute on chronic respiratory failure. Patient is reported to be oxygen dependent at home. Continue on O2 supplement. Titrate down start as tolerated. Continue BiPAP as needed. Pulmonary following. 4. Acute on chronic kidney disease. Diuretics renally dosed. avoid nephrotoxic medications possible. Continue with nephrology recommendations. 5. Congestive heart failure with diastolic dysfunction. Continue on diuretics. Aspirin 6. Type 2 diabetes. Patient was noted with recent A1c of 5.8. Continue on insulin siding scale. Continue carbohydrate controlled diet 7. Essential hypertension. Continue antihypertensives and adjust as needed 8. History of atrial fibrillation. Continue on heparin 9. Dyslipidemia. cont statin 10. History of gout. Continue allopurinol 11. Major depression. Continue on SSRI 12. Morbid obesity. Weight reduction advised GERD prophylaxis: Pepcid DVT prophylaxis: Heparin Disposition and plan: Continue titrate down O2 as tolerated.monitor renal function. diuretics per nephro. Will try for ARU eval. Discussed plan of care with Dr. Bowers Problems: Subjective 24 Hr Interval Summary Free Text/Dictation comfortable at present. no s/s of distress Exam/Review of Systems Vital Signs Vitals Vital Signs Date Time Temp Pulse Resp B/P Pulse Ox O2 Delivery O2 Flow Rate FiO2 08/23/16 13:18 78 20 93 Nasal Cannula 4.0 08/23/16 07:25 98.2 160/87 08/23/16 05:45 40 Intake and Output 08/22/16 08/22/16 08/23/16 15:00 23:00 07:00 Intake Total 25 ml 875 ml 505 ml Output Total 1050 ml 1100 ml Balance 25 ml -175 ml -595 ml Exam General: No acute signs or symptoms of distress Eyes: pupils equal round, Anicteric sclera Neck: Supple nontender, no JVD Cardiac: S1, S2 auscultated, regular rhythm and rate Pulmonary: Diminished at lung bases. No obvious wheezing or rhonchi auscultated GI: Abdomen soft nontender nondistended, bowel sounds active Extremities: Edema seen bilateral lower extremities posterior Skin: dressing bilateral lower extremities clean dry and intact. Brownish discoloration of bilateral lower extremities Neurologic: Alert to person place and time and situation Results Result Diagram: 08/23/16 0525 08/23/16 0525 Results 24 hrs Laboratory Tests Test 08/22/16 17:03 08/22/16 21:24 08/23/16 05:25 08/23/16 08:02 Bedside Glucose 155 157 143 Anion Gap 16 Basophils # 0.1 Basophils % 0.8 Blood Morphology Comment Blood Urea Nitrogen 43 H Calcium Level 8.1 L Carbon Dioxide Level 29 Chloride Level 97 Creatinine 1.17 Eosinophils # 1.0 H Eosinophils % 10.8 H Glucose Level 132 # Hematocrit 30.2 L Hemoglobin 9.8 L Lymphocytes # 0.8 Lymphocytes % 8.8 L Mean Corpuscular Hemoglobin 24.9 L Mean Corpuscular Hemoglobin Concent 32.4 Mean Corpuscular Volume 77.1 L Mean Platelet Volume 7.7 Monocytes # 0.9 Monocytes % 9.8 Neutrophils # 6.7 Neutrophils % 69.8 Nucleated Red Blood Cells # 0.0 Nucleated Red Blood Cells % 0.0 Platelet Count 303 Potassium Level 4.5 Red Blood Count 3.92 L Red Cell Distribution Width 21.8 H Sodium Level 137 White Blood Count 9.6 Test 08/23/16 11:51 Bedside Glucose 195 Medications Medications Current Medications Acetaminophen (Tylenol Tab) 650 mg Q6H PRN PO PAIN LEVEL 1-3 OR FEVER; Start 08/13/16 at 17:30 Acetaminophen/ Hydrocodone Bitart ([place] (5/325)) 1 tab Q6H PRN PO MODERATE PAIN LEVEL 4-6; Start 08/13/16 at 17:30 Morphine Sulfate (morphine) 2 mg Q4H PRN IV SEVERE PAIN LEVEL 7-10 Last administered on 08/13/16at 17:58; Admin Dose 2 MG; Start 08/13/16 at 17:30 Docusate Sodium (Colace) 100 mg Q12H PRN PO CONSTIPATION; Start 08/13/16 at 17 :30 Famotidine (Pepcid) 20 mg Q12 PO Last administered on 12/8/16at 08:20; Admin Dose 20 MG; Start 08/13/16 at 21:00 Heparin Sodium (Porcine) (Heparin (5000 Units/0.5 ml)) 5,000 unit Q12 SC Last administered on 08/23/16 08:24; Admin Dose 5,000 UNIT; Start 08/13/16 at 21:00 Allopurinol (Zyloprim) 100 mg DAILY PO Last administered on 08/23/16 08:21; Admin Dose 100 MG; Start 08/14/16 at 09:00 Ascorbic Acid (Vitamin C) 500 mg DAILY PO Last administered on 08/23/16 08:21 ; Admin Dose 500 MG; Start 08/13/16 at 18:00 Aspirin (Halfprin) 81 mg DAILY PO Last administered on 08/23/16 08:21; Admin Dose 81 MG; Start 08/14/16 at 09:00 Atorvastatin Calcium (Lipitor) 10 mg QHS PO Last administered on 08/22/16 21: 25; Admin Dose 10 MG; Start 08/13/16 at 21:00 Cholecalciferol (Vitamin D) 1,000 unit DAILY PO Last administered on 08/23/16 08:20; Admin Dose 1,000 UNIT; Start 08/14/16 at 09:00 Ferrous Sulfate (Ferrous Sulfate (Ec)) 325 mg BID PO Last administered on 08:21; Admin Dose 325 MG; Start 08/13/16 at 21:00 Fish Oil (Fish Oil) 1,000 mg DAILY PO Last administered on 08/23/16 08:20; Admin Dose 1,000 MG; Start 08/14/16 at 09:00 Lactobacillus Acidoph/Bulgaricus (Floranex) 1 tab TID PO Last administered on 08/23/16 12:12; Admin Dose 1 TAB; Start 08/13/16 at 21:00 Metoprolol Tartrate (Lopressor) 12.5 mg BID PO Last administered on 08/23/16 08:21; Admin Dose 12.5 MG; Start 08/13/16 at 21:00 Pregabalin (Lyrica) 50 mg TID PO Last administered on 08/23/16 12:12; Admin Dose 50 MG; Start 08/13/16 at 21:00 Pyridoxine HCl (Vitamin B6) 100 mg DAILY PO Last administered on 08/23/16 08: 20; Admin Dose 100 MG; Start 08/14/16 at 09:00 Simethicone (Mylicon) 80 mg Q6H PRN PO INTESTINAL SPASMS/CRAMPING Last administered on 08/16/16at 15:27; Admin Dose 80 MG; Start 08/13/16 at 17:30 Vitamin E (Vitamin E) 400 units DAILY PO Last administered on 08/23/16 08:21; Admin Dose 400 UNITS; Start 08/14/16 at 09:00 Fluoxetine HCl (Prozac) 20 mg DAILY PO Last administered on 08/23/16 08:20; Admin Dose 20 MG; Start 08/14/16 at 09:00 Miscellaneous Information 1 ea NOTE XX ; Start 08/13/16 at 18:00 Glucose (Glutose) 15 gm Q15M PRN PO DECREASED GLUCOSE; Start 08/13/16 at 18:00 Glucose (Glutose) 22.5 gm Q15M PRN PO DECREASED GLUCOSE; Start 08/13/16 at 18: 00 Dextrose (D50w Syringe) 25 ml Q15M PRN IV DECREASED GLUCOSE; Start 08/13/16 at 18:00 Dextrose (D50w Syringe) 50 ml Q15M PRN IV DECREASED GLUCOSE; Start 08/13/16 at 18:00 Glucagon (Glucagen) 1 mg Q15M PRN IM DECREASED GLUCOSE; Start 08/13/16 at 18: 00 Glucose (Glutose) 15 gm Q15M PRN BUCCAL DECREASED GLUCOSE; Start 08/13/16 at 18:00 Sodium Hypochlorite (Dakin'S (1/4 Strength)) 1 applic DAILY IRR Last administered on 08/22/16at 09:01; Admin Dose 1 APPLIC; Start 08/13/16 at 20:00 Acetaminophen/ Hydrocodone Bitart ([place] (5/325)) 2 tab Q6H PRN PO MODERATE PAIN LEVEL 4-6 Last administered on 08/23/16at 13:46; Admin Dose 2 TAB; Start at 13:00 IV Flush (NS 10 ml) 10 ml PRN PRN IV IV PTOTOCOL; Start 08/14/16 at 17:00 Acetylcysteine (Nac) 600 mg BID PO Last administered on 08/23/16at 08:20; Admin Dose 600 MG; Start 08/16/16 at 21:00 Ondansetron HCl (Zofran Inj) 4 mg Q4H PRN IV NAUSEA AND/OR VOMITING; Start 08/16/16 at 12:30 Zolpidem Tartrate (Ambien) 10 mg HS PRN PO INSOMNIA Last administered on 22:08; Admin Dose 10 MG; Start 08/16/16 at 21:00 Lorazepam (Ativan) 1 mg Q6 PRN PO ANXIETY Last administered on 08/18/16 14:37 ; Admin Dose 1 MG; Start 08/18/16 at 14:30 Insulin Glargine (Lantus) 15 unit QHS SC Last administered on 08/22/16 21:30; Admin Dose 15 UNIT; Start 08/19/16 at 21:00 Diagnostic Test (Pha) (Accucheck) 1 ea 02 XX Last administered on 08/21/16 02: 00; Admin Dose 1 EA; Start 08/20/16 at 02:00 Phenol 1 lozenge 1 lozenge Q1H PRN MT DRY MOUTH Last administered on 08/20/16 21:28; Admin Dose 1 LOZENGE; Start 08/20/16 at 20:30 Bumetanide 1.5 mg/ Dextrose 25 ml @ 50 mls/hr BID@06,14 IV Last administered on 08/23/16 06:25; Admin Dose 50 MLS/HR; Start 08/21/16 at 14:00 Vancomycin HCl/ Sodium Chloride (Vancocin/NS) 250 ml @ 83.333 mls/ hr Q24H IVPB Last administered on 08/23/16 12:12; Admin Dose 83.333 MLS/HR; Start 08/22/16 at 12:00 Lorazepam (Ativan) 1 mg HS PRN PO ANXIETY, HELP WITH SLEEP Last administered on 08/22/16 22:08; Admin Dose 1 MG; Start 08/22/16 at 18:30 GIUSEPPE BREAUX Aug 23, 2016 15:47
[2016-08-23] MEDS: BUMETANIDE 1 MG TAB PO SCH (18:05)
[2016-08-23 20:00] VITALS: BP 138/73; PULSE 75; RESP 19
[2016-08-23] MEDS: ATORVASTATIN 10 MG TAB PO SCH (20:58)
[2016-08-23] MEDS: INSULIN GLARGINE [LANtus] 3 ML PEN SC SCH (21:04)
[2016-08-23] MEDS: LORAZEPAM 1 MG TAB PO PRN (22:18)
[2016-08-23] MEDS: ZOLPIDEM 5 MG TAB PO PRN (22:18)
[2016-08-23 22:55] VITALS: PULSE 82
--- NOTE | 2016-08-23 23:29 | PN ---
Date/Time of Note Date/Time of Note DATE: 08/23/16 TIME: 23:28 Assessment/Plan Lines/Catheters IV C[facility]ter Type (from [facility]): PICC Line Assessment/Plan Problems: (1) Osteomyelitis of left foot (2) Diabetic foot infection Status: Acute (3) Obesity (4) Venous insufficiency (chronic) (peripheral) Assessment/Plan Will continue to monitor patient. Subjective 24 Hr Interval Summary Patient was seen and examined. Patient denies pain in his feet. Denies fever and chills. Reports no trauma to his feet. Denies overnight adverse events. Constitutional: no complaints Pain Control: well controlled Exam/Review of Systems Vital Signs Vitals Vital Signs Date Time Temp Pulse Resp B/P Pulse Ox O2 Delivery O2 Flow Rate FiO2 09/04/16 16:20 81 09/04/16 16:10 18 94 Nasal Cannula 6.0 09/04/16 15:17 97.9 138/59 09/04/16 15:00 40 Intake and Output 09/03/16 09/03/16 09/04/16 15:00 23:00 07:00 Intake Total 850 ml 240 ml Output Total 800 ml 1200 ml Balance 50 ml -960 ml Exam Free Text/Dictation Patient is morbidly obese in no acute distress. Left foot is improved with decrease in erythema; there is no drainage of pus and no bleeding. The area is non tender to exam. Patient has osteomyelitis of the left big toe. Extensive edema present in bilateral lower extremities. Patient has a PICC line placed in the right upper arm. Dorsalis pedis and posterior tibial pulses are not palpable secondary to the edema present. Protective sensation remains decreased to sharp, dull, vibratory and temperature stimuli. Labs and x-rays were reviewed. Results Result Diagram: 09/04/16 1040 09/04/16 1046 NORMAN ACOSTA DPM Aug 23, 2016 23:28
[2016-08-24 01:09] VITALS: PULSE 85
[2016-08-24] MEDS: ALBUTEROL/IPRATROPIUM (NEB) 3 ML AMP HHN SCH ×6 (01:15→20:38)
[2016-08-24] MEDS: ACCUCHECK XX SCH (02:00)
[2016-08-24 03:50] VITALS: PULSE 77
[2016-08-24 04:46] VITALS: PULSE 78
[2016-08-24] MEDS: BUMETANIDE 1 MG TAB PO SCH ×2 (06:06→17:40)
[2016-08-24 06:33] LABS: BASOPHIL # 0.1 10^3/ul (0.0-0.1); BASOPHILS % 1.1 % (0.0-2.0); EOSINOPHILS # 1.2 10^3/ul (0.0-0.5); EOSINOPHILS % 12.4 % (0.0-7.0); HEMATOCRIT 31.2 % (42.0-52.0); LYMPHOCYTES # 1.3 10^3/ul (0.8-2.9); LYMPHOCYTES % 13.5 % (15.0-51.0); MEAN CORPUSCULAR HEMOGLOBIN 25.1 pg (29.0-33.0); MEAN CORPUSCULAR HGB CONC 32.2 g/dl (32.0-37.0); MEAN CORPUSCULAR VOLUME 77.9 fl (82.0-101.0); MEAN PLATELET VOLUME 7.9 fl (7.4-10.4); MONOCYTE # 0.9 10^3/ul (0.3-0.9); MONOCYTES % 9.8 % (0.0-11.0); NEUTROPHILS % 63.2 % (39.0-77.0); PLATELET COUNT 305 10^3/UL (140-440); RED CELL DISTRIBUTION WIDTH 21.6 % (11.5-14.5); UNCORRECTED WBC 9.6 10^3/ul (4.8-10.8); WHITE BLOOD COUNT 9.6 10^3/ul (4.8-10.8)
[2016-08-24 06:40] LABS: CONDITION 1; LH ANALYZER COMMENTS 1
[2016-08-24 07:26] LABS: CREATININE 1.37 mg/dl (0.61-1.24)
[2016-08-24 07:27] LABS: CALCIUM 8.5 mg/dl (8.4-10.2)
[2016-08-24] MEDS: INSULIN ASPART [NOVOLOG] 3 ML PEN SC SCH ×7 (08:02→21:15)
[2016-08-24 08:03] VITALS: BP 134/79; PULSE 78; RESP 22
[2016-08-24] MEDS: LACTOBACILLUS CHEW TAB PO SCH ×3 (08:18→21:08)
[2016-08-24] MEDS: ALLOPURINOL 100 MG TAB PO SCH (08:18)
[2016-08-24] MEDS: VITAMIN E 400 UNITS CAP PO SCH (08:18)
[2016-08-24] MEDS: ACETYLCYSTEINE 600 MG CAP PO SCH ×2 (08:18→21:08)
[2016-08-24] MEDS: ASCORBIC ACID 500 MG TAB PO SCH (08:18)
[2016-08-24] MEDS: FERROUS SULFATE (EC) 325 MG TAB PO SCH ×2 (08:18→21:08)
[2016-08-24] MEDS: CHOLECALCIFEROL 1,000 UNIT TAB PO SCH (08:18)
[2016-08-24] MEDS: FAMOTIDINE 20 MG TAB PO SCH ×2 (08:18→21:09)
[2016-08-24] MEDS: FISH OIL 1,000 MG CAP PO SCH (08:18)
[2016-08-24] MEDS: ASPIRIN (EC) 81 MG TAB PO SCH (08:18)
[2016-08-24] MEDS: FLUOXETINE 20 MG CAP PO SCH (08:18)
[2016-08-24] MEDS: METOPROLOL 25 MG TAB PO SCH ×2 (08:20→21:09)
[2016-08-24] MEDS: PREGABALIN 25 MG CAP PO SCH ×3 (08:21→21:08)
[2016-08-24] MEDS: HEPARIN 5,000 UNIT/0.5 ML SYG SC SCH ×2 (08:26→21:16)
--- NOTE | 2016-08-24 08:56 | PDOCDIS ---
Discharge Instructions DIAGNOSIS Discharge Diagnosis: 1. Left greater toe osteomyelitis/ cellulitis 2. acute on chronic resp fail CONDITION Patient Condition: Stable HOME CARE INSTRUCTIONS: Diet Instructions: Reduced SodiumSpecial Diet: RENAL/CARB CONTROLLED ACTIVITY: Activity Restrictions: Slowly Increase Activity Rest between Activity FOLLOW UP/APPOINTMENTS Appointments 1. Follow up with Dr. Chris Vivar in one week 2. Follow up with Dr. Rell Lucas and Dr. Etienne Taylor at the [facility] at [facility] within one week 3. Follow up with Dr. Gopi Peres in one week OTHER ORDERS: Other Orders: 1. Call 911 if you have worse shortness of breath GIUSEPPE BREAUX Aug 24, 2016 08:56
[2016-08-24] MEDS: HYDROCODONE/APAP (5/325) TAB PO PRN ×2 (10:51→17:40)
[2016-08-24] MEDS: PYRIDOXINE 50 MG TAB PO SCH (10:54)
[2016-08-24] MEDS: SODIUM HYPOCHLORITE 0.125% 473 ML BTL IRR SCH (10:55)
[2016-08-24] MEDS: VANCOMYCIN 1.25 GM in SOD CHLORIDE 0.9% 250 ML IVPB SCH (12:16)
--- NOTE | 2016-08-24 12:17 | CONS ---
Date/Time of Note Date/Time of Note DATE: 08/24/16 TIME: 12:16 Assessment/Plan Assessment/Plan Additional Assessment/Plan 60 yo Male with 1) LORNA on CKD, Pre-Renal in the setting of diuretic Rx 2) Left toe cellulits OM 3) HTN, Chronic 4) Diastolic Heart Failure, Chronic 5) Pulm HTN 6) Anema, Chronic 7) RLL Patchy Consolidation 8) Anasarca Cont to monitor renal function on increased diuretic Dose Bumex 2mg po bid Cont 1.5L Fluid restriction Daily weights. If patient disharged to Rehab, will follow at ARU.. Consultation Date/Type/Reason Admit Date/Time Aug 13, 2016 at 16:30 Initial Consult Date 08/13/16 Type of Consultation: Nephrology Referring Provider: KELLEN MEDINA MD 24 HR Interval Summary Free Text/Dictation Good UO, Pt does not have any new complaints. Now on PO bumex. Possible plan for discharge ? Acute Rehab Exam/Review of Systems Vital Signs Vitals Vital Signs Date Time Temp Pulse Resp B/P Pulse Ox O2 Delivery O2 Flow Rate FiO2 08/24/16 08:03 97.9 78 22 134/79 98 08/24/16 04:46 40 08/23/16 22:00 4.0 08/23/16 20:21 Nasal Cannula Intake and Output 08/23/16 08/23/16 08/24/16 15:00 23:00 07:00 Intake Total 1570 ml 1120 ml Output Total 800 ml 1200 ml Balance 770 ml -80 ml Exam Constitutional: alert, oriented, No distress ENMT: mucosa pink and moist Respiratory: No labored breathing Cardiovascular: edema, regular rate and rhythm Extremities: pitting pedal edema 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: nl mental status, No lethargic Skin: No diaphoresis Results Result Diagram: 08/24/16 0529 08/24/16 0529 Results 24 hrs Laboratory Tests Test 08/23/16 16:53 08/23/16 20:57 08/24/16 05:29 08/24/16 07:48 Bedside Glucose 97 128 63 L Anion Gap 16 Basophils # 0.1 Basophils % 1.1 Blood Morphology Comment Blood Urea Nitrogen 47 H Calcium Level 8.5 Carbon Dioxide Level 29 Chloride Level 97 Creatinine 1.37 H Eosinophils # 1.2 H Eosinophils % 12.4 H Glucose Level 73 # Hematocrit 31.2 L Hemoglobin 10.0 L Lymphocytes # 1.3 Lymphocytes % 13.5 L Mean Corpuscular Hemoglobin 25.1 L Mean Corpuscular Hemoglobin Concent 32.2 Mean Corpuscular Volume 77.9 L Mean Platelet Volume 7.9 Monocytes # 0.9 Monocytes % 9.8 Neutrophils # 6.0 Neutrophils % 63.2 Nucleated Red Blood Cells # 0.0 Nucleated Red Blood Cells % 0.0 Platelet Count 305 Potassium Level 5.0 Red Blood Count 4.00 L Red Cell Distribution Width 21.6 H Sodium Level 137 White Blood Count 9.6 Test 08/24/16 08:17 08/24/16 08:44 08/24/16 08:59 08/24/16 09:17 Bedside Glucose 75 112 92 101 Test 08/24/16 11:44 Bedside Glucose 119 Medications Medications Current Medications Acetaminophen (Tylenol Tab) 650 mg Q6H PRN PO PAIN LEVEL 1-3 OR FEVER; Start 08/13/16 at 17:30 Acetaminophen/ Hydrocodone Bitart ([place] (5/325)) 1 tab Q6H PRN PO MODERATE PAIN LEVEL 4-6; Start 08/13/16 at 17:30 Morphine Sulfate (morphine) 2 mg Q4H PRN IV SEVERE PAIN LEVEL 7-10 Last administered on 08/13/16at 17:58; Admin Dose 2 MG; Start 08/13/16 at 17:30 Docusate Sodium (Colace) 100 mg Q12H PRN PO CONSTIPATION; Start 08/13/16 at 17 :30 Famotidine (Pepcid) 20 mg Q12 PO Last administered on 08/24/16at 08:18; Admin Dose 20 MG; Start 08/13/16 at 21:00 Heparin Sodium (Porcine) (Heparin (5000 Units/0.5 ml)) 5,000 unit Q12 SC Last administered on 08/24/16at 08:26; Admin Dose 5,000 UNIT; Start 08/13/16 at 21:00 Allopurinol (Zyloprim) 100 mg DAILY PO Last administered on 08/24/16at 08:18; Admin Dose 100 MG; Start 08/14/16 at 09:00 Ascorbic Acid (Vitamin C) 500 mg DAILY PO Last administered on 08/24/16at 08:18 ; Admin Dose 500 MG; Start 08/13/16 at 18:00 Aspirin (Halfprin) 81 mg DAILY PO Last administered on 08/24/16 08:18; Admin Dose 81 MG; Start 08/14/16 at 09:00 Atorvastatin Calcium (Lipitor) 10 mg QHS PO Last administered on 08/23/16 20: 58; Admin Dose 10 MG; Start 08/13/16 at 21:00 Cholecalciferol (Vitamin D) 1,000 unit DAILY PO Last administered on 08/24/16 08:18; Admin Dose 1,000 UNIT; Start 08/14/16 at 09:00 Ferrous Sulfate (Ferrous Sulfate (Ec)) 325 mg BID PO Last administered on 08:18; Admin Dose 325 MG; Start 08/13/16 at 21:00 Fish Oil (Fish Oil) 1,000 mg DAILY PO Last administered on 08/24/16 08:18; Admin Dose 1,000 MG; Start 08/14/16 at 09:00 Lactobacillus Acidoph/Bulgaricus (Floranex) 1 tab TID PO Last administered on 08/24/16 08:18; Admin Dose 1 TAB; Start 08/13/16 at 21:00 Metoprolol Tartrate (Lopressor) 12.5 mg BID PO Last administered on 08/24/16 08:20; Admin Dose 12.5 MG; Start 08/13/16 at 21:00 Pregabalin (Lyrica) 50 mg TID PO Last administered on 08/24/16 08:21; Admin Dose 50 MG; Start 08/13/16 at 21:00 Pyridoxine HCl (Vitamin B6) 100 mg DAILY PO Last administered on 08/24/16 10: 54; Admin Dose 100 MG; Start 08/14/16 at 09:00 Simethicone (Mylicon) 80 mg Q6H PRN PO INTESTINAL SPASMS/CRAMPING Last administered on 08/16/16 15:27; Admin Dose 80 MG; Start 08/13/16 at 17:30 Vitamin E (Vitamin E) 400 units DAILY PO Last administered on 08/24/16 08:18; Admin Dose 400 UNITS; Start 08/14/16 at 09:00 Fluoxetine HCl (Prozac) 20 mg DAILY PO Last administered on 08/24/16 08:18; Admin Dose 20 MG; Start 08/14/16 at 09:00 Miscellaneous Information 1 ea NOTE XX ; Start 08/13/16 at 18:00 Glucose (Glutose) 15 gm Q15M PRN PO DECREASED GLUCOSE; Start 08/13/16 at 18:00 Glucose (Glutose) 22.5 gm Q15M PRN PO DECREASED GLUCOSE; Start 08/13/16 at 18: 00 Dextrose (D50w Syringe) 25 ml Q15M PRN IV DECREASED GLUCOSE; Start 08/13/16 at 18:00 Dextrose (D50w Syringe) 50 ml Q15M PRN IV DECREASED GLUCOSE; Start 08/13/16 at 18:00 Glucagon (Glucagen) 1 mg Q15M PRN IM DECREASED GLUCOSE; Start 08/13/16 at 18: 00 Glucose (Glutose) 15 gm Q15M PRN BUCCAL DECREASED GLUCOSE; Start 08/13/16 at 18:00 Sodium Hypochlorite (Dakin'S (1/4 Strength)) 1 applic DAILY IRR Last administered on 08/24/16at 10:55; Admin Dose 1 APPLIC; Start 08/13/16 at 20:00 Acetaminophen/ Hydrocodone Bitart ([place] (5/325)) 2 tab Q6H PRN PO MODERATE PAIN LEVEL 4-6 Last administered on 08/24/16at 10:51; Admin Dose 2 TAB; Start at 13:00 IV Flush (NS 10 ml) 10 ml PRN PRN IV IV PTOTOCOL; Start 08/14/16 at 17:00 Acetylcysteine (Nac) 600 mg BID PO Last administered on 08/24/16at 08:18; Admin Dose 600 MG; Start 08/16/16 at 21:00 Ondansetron HCl (Zofran Inj) 4 mg Q4H PRN IV NAUSEA AND/OR VOMITING; Start 08/16/16 at 12:30 Zolpidem Tartrate (Ambien) 10 mg HS PRN PO INSOMNIA Last administered on at 22:18; Admin Dose 10 MG; Start 08/16/16 at 21:00 Lorazepam (Ativan) 1 mg Q6 PRN PO ANXIETY Last administered on 08/18/16at 14:37 ; Admin Dose 1 MG; Start 08/18/16 at 14:30 Insulin Glargine (Lantus) 15 unit QHS SC Last administered on 08/23/16 21:04; Admin Dose 15 UNIT; Start 08/19/16 at 21:00 Diagnostic Test (Pha) (Accucheck) 1 ea 02 XX Last administered on 08/21/16 02: 00; Admin Dose 1 EA; Start 08/20/16 at 02:00 Phenol 1 lozenge 1 lozenge Q1H PRN MT DRY MOUTH Last administered on 08/20/16 21:28; Admin Dose 1 LOZENGE; Start 08/20/16 at 20:30 Vancomycin HCl/ Sodium Chloride (Vancocin/NS) 250 ml @ 83.333 mls/ hr Q24H IVPB Last administered on 08/23/16 12:12; Admin Dose 83.333 MLS/HR; Start 08/22/16 at 12:00 Lorazepam (Ativan) 1 mg HS PRN PO ANXIETY, HELP WITH SLEEP Last administered on 08/23/16 22:18; Admin Dose 1 MG; Start 08/22/16 at 18:30 Miscellaneous Information (*Rx Drug Level Order Reminder*) VANCO TROUGH @ 1, 100 ON ... ONCE ONCE XX ; Start 08/25/16 at 11:00; Stop 08/25/16 at 11:01 DYAN FRANKLIN MD Aug 24, 2016 12:17
--- NOTE | 2016-08-24 12:33 | CONS ---
Date/Time of Note Date/Time of Note DATE: 08/24/16 TIME: 12:32 Consult Date/Type/Reason Admit Date/Time Aug 13, 2016 at 16:30 Initial Consult Date 08/13/16 Type of Consultation: ID Ordering Provider: KELLEN MEDINA MD Subjective alert, feels good, looks comfortable, no fevers Objective Vital Signs Date Time Temp Pulse Resp B/P Pulse Ox O2 Delivery O2 Flow Rate FiO2 08/24/16 08:03 97.9 78 22 134/79 98 08/24/16 04:46 40 08/23/16 22:00 4.0 08/23/16 20:21 Nasal Cannula Intake and Output 08/23/16 08/23/16 08/24/16 15:00 23:00 07:00 Intake Total 1570 ml 1120 ml Output Total 800 ml 1200 ml Balance 770 ml -80 ml Results/Medications Result Diagram: 08/24/16 0529 08/24/16 0529 Results 24 hrs Laboratory Tests Test 08/23/16 16:53 08/23/16 20:57 08/24/16 05:29 08/24/16 07:48 Bedside Glucose 97 128 63 L Anion Gap 16 Basophils # 0.1 Basophils % 1.1 Blood Morphology Comment Blood Urea Nitrogen 47 H Calcium Level 8.5 Carbon Dioxide Level 29 Chloride Level 97 Creatinine 1.37 H Eosinophils # 1.2 H Eosinophils % 12.4 H Glucose Level 73 # Hematocrit 31.2 L Hemoglobin 10.0 L Lymphocytes # 1.3 Lymphocytes % 13.5 L Mean Corpuscular Hemoglobin 25.1 L Mean Corpuscular Hemoglobin Concent 32.2 Mean Corpuscular Volume 77.9 L Mean Platelet Volume 7.9 Monocytes # 0.9 Monocytes % 9.8 Neutrophils # 6.0 Neutrophils % 63.2 Nucleated Red Blood Cells # 0.0 Nucleated Red Blood Cells % 0.0 Platelet Count 305 Potassium Level 5.0 Red Blood Count 4.00 L Red Cell Distribution Width 21.6 H Sodium Level 137 White Blood Count 9.6 Test 08/24/16 08:17 08/24/16 08:44 08/24/16 08:59 08/24/16 09:17 Bedside Glucose 75 112 92 101 Test 08/24/16 11:44 Bedside Glucose 119 Medications Current Medications Acetaminophen (Tylenol Tab) 650 mg Q6H PRN PO PAIN LEVEL 1-3 OR FEVER; Start 08/13/16 at 17:30 Acetaminophen/ Hydrocodone Bitart ([place] (5/325)) 1 tab Q6H PRN PO MODERATE PAIN LEVEL 4-6; Start 08/13/16 at 17:30 Morphine Sulfate (morphine) 2 mg Q4H PRN IV SEVERE PAIN LEVEL 7-10 Last administered on 08/13/16 17:58; Admin Dose 2 MG; Start 08/13/16 at 17:30 Docusate Sodium (Colace) 100 mg Q12H PRN PO CONSTIPATION; Start 08/13/16 at 17 :30 Famotidine (Pepcid) 20 mg Q12 PO Last administered on 08/24/16 08:18; Admin Dose 20 MG; Start 08/13/16 at 21:00 Heparin Sodium (Porcine) (Heparin (5000 Units/0.5 ml)) 5,000 unit Q12 SC Last administered on 08/24/16 08:26; Admin Dose 5,000 UNIT; Start 08/13/16 at 21:00 Allopurinol (Zyloprim) 100 mg DAILY PO Last administered on 08/24/16 08:18; Admin Dose 100 MG; Start 08/14/16 at 09:00 Ascorbic Acid (Vitamin C) 500 mg DAILY PO Last administered on 08/24/16 08:18 ; Admin Dose 500 MG; Start 08/13/16 at 18:00 Aspirin (Halfprin) 81 mg DAILY PO Last administered on 08/24/16 08:18; Admin Dose 81 MG; Start 08/14/16 at 09:00 Atorvastatin Calcium (Lipitor) 10 mg QHS PO Last administered on 08/23/16 20: 58; Admin Dose 10 MG; Start 08/13/16 at 21:00 Cholecalciferol (Vitamin D) 1,000 unit DAILY PO Last administered on 08/24/16 08:18; Admin Dose 1,000 UNIT; Start 08/14/16 at 09:00 Ferrous Sulfate (Ferrous Sulfate (Ec)) 325 mg BID PO Last administered on 08:18; Admin Dose 325 MG; Start 08/13/16 at 21:00 Fish Oil (Fish Oil) 1,000 mg DAILY PO Last administered on 08/24/16 08:18; Admin Dose 1,000 MG; Start 08/14/16 at 09:00 Lactobacillus Acidoph/Bulgaricus (Floranex) 1 tab TID PO Last administered on 08/24/16at 08:18; Admin Dose 1 TAB; Start 08/13/16 at 21:00 Metoprolol Tartrate (Lopressor) 12.5 mg BID PO Last administered on 08/24/16at 08:20; Admin Dose 12.5 MG; Start 08/13/16 at 21:00 Pregabalin (Lyrica) 50 mg TID PO Last administered on 08/24/16at 08:21; Admin Dose 50 MG; Start 08/13/16 at 21:00 Pyridoxine HCl (Vitamin B6) 100 mg DAILY PO Last administered on 08/24/16at 10: 54; Admin Dose 100 MG; Start 08/14/16 at 09:00 Simethicone (Mylicon) 80 mg Q6H PRN PO INTESTINAL SPASMS/CRAMPING Last administered on 08/16/16at 15:27; Admin Dose 80 MG; Start 08/13/16 at 17:30 Vitamin E (Vitamin E) 400 units DAILY PO Last administered on 08/24/16at 08:18; Admin Dose 400 UNITS; Start 08/14/16 at 09:00 Fluoxetine HCl (Prozac) 20 mg DAILY PO Last administered on 08/24/16at 08:18; Admin Dose 20 MG; Start 08/14/16 at 09:00 Miscellaneous Information 1 ea NOTE XX ; Start 08/13/16 at 18:00 Glucose (Glutose) 15 gm Q15M PRN PO DECREASED GLUCOSE; Start 08/13/16 at 18:00 Glucose (Glutose) 22.5 gm Q15M PRN PO DECREASED GLUCOSE; Start 08/13/16 at 18: 00 Dextrose (D50w Syringe) 25 ml Q15M PRN IV DECREASED GLUCOSE; Start 08/13/16 at 18:00 Dextrose (D50w Syringe) 50 ml Q15M PRN IV DECREASED GLUCOSE; Start 08/13/16 at 18:00 Glucagon (Glucagen) 1 mg Q15M PRN IM DECREASED GLUCOSE; Start 08/13/16 at 18: 00 Glucose (Glutose) 15 gm Q15M PRN BUCCAL DECREASED GLUCOSE; Start 08/13/16 at 18:00 Sodium Hypochlorite (Dakin'S (1/4 Strength)) 1 applic DAILY IRR Last administered on 08/24/16 10:55; Admin Dose 1 APPLIC; Start 08/13/16 at 20:00 Acetaminophen/ Hydrocodone Bitart ([place] (5/325)) 2 tab Q6H PRN PO MODERATE PAIN LEVEL 4-6 Last administered on 08/24/16 10:51; Admin Dose 2 TAB; Start at 13:00 IV Flush (NS 10 ml) 10 ml PRN PRN IV IV PTOTOCOL; Start 08/14/16 at 17:00 Acetylcysteine (Nac) 600 mg BID PO Last administered on 08/24/16 08:18; Admin Dose 600 MG; Start 08/16/16 at 21:00 Ondansetron HCl (Zofran Inj) 4 mg Q4H PRN IV NAUSEA AND/OR VOMITING; Start 08/16/16 at 12:30 Zolpidem Tartrate (Ambien) 10 mg HS PRN PO INSOMNIA Last administered on 22:18; Admin Dose 10 MG; Start 08/16/16 at 21:00 Lorazepam (Ativan) 1 mg Q6 PRN PO ANXIETY Last administered on 08/18/16 14:37 ; Admin Dose 1 MG; Start 08/18/16 at 14:30 Insulin Glargine (Lantus) 15 unit QHS SC Last administered on 08/23/16 21:04; Admin Dose 15 UNIT; Start 08/19/16 at 21:00 Diagnostic Test (Pha) (Accucheck) 1 ea 02 XX Last administered on 08/21/16 02: 00; Admin Dose 1 EA; Start 08/20/16 at 02:00 Phenol 1 lozenge 1 lozenge Q1H PRN MT DRY MOUTH Last administered on 08/20/16 21:28; Admin Dose 1 LOZENGE; Start 08/20/16 at 20:30 Vancomycin HCl/ Sodium Chloride (Vancocin/NS) 250 ml @ 83.333 mls/ hr Q24H IVPB Last administered on 08/23/16 12:12; Admin Dose 83.333 MLS/HR; Start 08/22/16 at 12:00 Lorazepam (Ativan) 1 mg HS PRN PO ANXIETY, HELP WITH SLEEP Last administered on 12/8/16at 22:18; Admin Dose 1 MG; Start 08/22/16 at 18:30 Miscellaneous Information (*Rx Drug Level Order Reminder*) VANCO TROUGH @ 1, 100 ON ... ONCE ONCE XX ; Start 08/25/16 at 11:00; Stop 08/25/16 at 11:01 Assessment/Plan Chief Complaint/Hosp Course MICROBIOLOGY: 08/13/16 Bld cx+ KENAN DIAGNOSTICS: MRI revealed cellulitis and osteomyelitis of the left first toe. ANTIMICROBIALS: Vancomycin Urinalysis on admission was negative. PHYSICAL EXAMINATION: GENERAL: Obese, well-developed, middle-aged white man who is sitting in a chair. Patient is in no distress. HEENT: Head atraumatic, normocephalic. Sclerae anicteric. Buccal mucosa dry. NECK: Supple, trachea midline. CHEST: Rise symmetrical. Breath sounds clear, diminished to bases. HEART: S1, S2. ABDOMEN: Soft, bowel tones present. EXTREMITIES: Bilateral Patrick wraps. ASSESSMENT: 1. Bilateral lower extremities acute on chronic cellulitis with chronic venous stasis and left toe osteomyelitis. 2. Systemic inflammatory response syndrome 2 to above. 3. S/p septicemia==>KENAN 4. Questionable pneumonia as per chest x-ray. 5. Morbid obesity. 6. Atrial fibrillation, chronic. 7. Chronic kidney disease. 8. PAD==> s/p angiogram PLAN: Clinically stable, repeat bld cx negative, continue abx for 6-8 weeks, f/ u with podiatry outpatient for further rec-s [facility] staff Problems: JAMEY VAZQUEZ NP Aug 24, 2016 12:33
--- NOTE | 2016-08-24 14:33 | PN ---
Date/Time of Note Date/Time of Note DATE: 08/24/16 TIME: 14:30 Assessment/Plan VTE Prophylaxis VTE Prophylaxis Intervention: heparin Lines/Catheters IV Catheter Type (from Nrs): PICC Line Central line still needed: Yes Assessment/Plan Chief Complaint/Hosp Course Assessment and plan 1. Left greater toe osteomyelitis/ cellulitis. Continue antibiotics. (Will need 6-8 weeks of antibiotics per ID). Patient assessed by vascular surgeon. Continue recommendations 2. Leukocytosis secondary to #1. At this time. Remains afebrile. Continue on antibiotics 3. Acute on chronic respiratory failure. Patient is reported to be oxygen dependent at home. Continue on O2 supplement. Titrate down start as tolerated. Continue BiPAP as needed. Pulmonary following. 4. Acute on chronic kidney disease. Diuretics renally dosed. avoid nephrotoxic medications possible. Continue with nephrology recommendations. 5. Congestive heart failure with diastolic dysfunction. Continue on diuretics. Aspirin 6. Type 2 diabetes. Patient was noted with recent A1c of 5.8. Continue on insulin siding scale. Continue carbohydrate controlled diet 7. Essential hypertension. Continue antihypertensives and adjust as needed 8. History of atrial fibrillation. Continue on heparin 9. Dyslipidemia. cont statin 10. History of gout. Continue allopurinol 11. Major depression. Continue on SSRI 12. Morbid obesity. Weight reduction advised GERD prophylaxis: Pepcid DVT prophylaxis: Heparin Disposition and plan: Continue titrate down O2 as tolerated.monitor renal function. diuretics per nephro. Patient initially refused ARU eval, wanting to go home with home health. Discussed with patient plan of care options. Patient now requesting for ARU eval. Will follow up Discussed plan of care with Dr. Bowers Problems: Subjective 24 Hr Interval Summary Free Text/Dictation reports breathing better at present. Exam/Review of Systems Vital Signs Vitals Vital Signs Date Time Temp Pulse Resp B/P Pulse Ox O2 Delivery O2 Flow Rate FiO2 08/24/16 08:03 97.9 78 22 134/79 98 08/24/16 04:46 40 08/23/16 22:00 4.0 08/23/16 20:21 Nasal Cannula Intake and Output 08/23/16 08/23/16 08/24/16 14:59 22:59 06:59 Intake Total 25 ml 1570 ml 1120 ml Output Total 800 ml 1200 ml Balance 25 ml 770 ml -80 ml Exam General: No acute signs or symptoms of distress Eyes: pupils equal round, Anicteric sclera Neck: Supple nontender, no JVD Cardiac: S1, S2 auscultated, regular rhythm and rate Pulmonary: Diminished at lung bases. No obvious wheezing or rhonchi auscultated GI: Abdomen soft nontender nondistended, bowel sounds active Extremities: Edema seen bilateral lower extremities posterior Skin: dressing bilateral lower extremities clean dry and intact. Brownish discoloration of bilateral lower extremities Neurologic: Alert to person place and time and situation Results Result Diagram: 08/24/1652808/24/16528 Results 24 hrs Laboratory Tests Test 08/23/16 16:53 08/23/16 20:57 08/24/16 05:29 08/24/16 07:48 Bedside Glucose 97 128 63 L Anion Gap 16 Basophils # 0.1 Basophils % 1.1 Blood Morphology Comment Blood Urea Nitrogen 47 H Calcium Level 8.5 Carbon Dioxide Level 29 Chloride Level 97 Creatinine 1.37 H Eosinophils # 1.2 H Eosinophils % 12.4 H Glucose Level 73 # Hematocrit 31.2 L Hemoglobin 10.0 L Lymphocytes # 1.3 Lymphocytes % 13.5 L Mean Corpuscular Hemoglobin 25.1 L Mean Corpuscular Hemoglobin Concent 32.2 Mean Corpuscular Volume 77.9 L Mean Platelet Volume 7.9 Monocytes # 0.9 Monocytes % 9.8 Neutrophils # 6.0 Neutrophils % 63.2 Nucleated Red Blood Cells # 0.0 Nucleated Red Blood Cells % 0.0 Platelet Count 305 Potassium Level 5.0 Red Blood Count 4.00 L Red Cell Distribution Width 21.6 H Sodium Level 137 White Blood Count 9.6 Test 08/24/16 08:17 08/24/16 08:44 08/24/16 08:59 08/24/16 09:17 Bedside Glucose 75 112 92 101 Test 08/24/16 11:44 Bedside Glucose 119 Medications Medications Current Medications Acetaminophen (Tylenol Tab) 650 mg Q6H PRN PO PAIN LEVEL 1-3 OR FEVER; Start 08/13/16 at 17:30 Acetaminophen/ Hydrocodone Bitart ([place] (5/325)) 1 tab Q6H PRN PO MODERATE PAIN LEVEL 4-6; Start 08/13/16 at 17:30 Morphine Sulfate (morphine) 2 mg Q4H PRN IV SEVERE PAIN LEVEL 7-10 Last administered on 08/13/16 17:58; Admin Dose 2 MG; Start 08/13/16 at 17:30 Docusate Sodium (Colace) 100 mg Q12H PRN PO CONSTIPATION; Start 08/13/16 at 17 :30 Famotidine (Pepcid) 20 mg Q12 PO Last administered on 08/24/16 08:18; Admin Dose 20 MG; Start 08/13/16 at 21:00 Heparin Sodium (Porcine) (Heparin (5000 Units/0.5 ml)) 5,000 unit Q12 SC Last administered on 08/24/16 08:26; Admin Dose 5,000 UNIT; Start 08/13/16 at 21:00 Allopurinol (Zyloprim) 100 mg DAILY PO Last administered on 08/24/16 08:18; Admin Dose 100 MG; Start 08/14/16 at 09:00 Ascorbic Acid (Vitamin C) 500 mg DAILY PO Last administered on 08/24/16 08:18 ; Admin Dose 500 MG; Start 08/13/16 at 18:00 Aspirin (Halfprin) 81 mg DAILY PO Last administered on 08/24/16 08:18; Admin Dose 81 MG; Start 08/14/16 at 09:00 Atorvastatin Calcium (Lipitor) 10 mg QHS PO Last administered on 08/23/16 20: 58; Admin Dose 10 MG; Start 08/13/16 at 21:00 Cholecalciferol (Vitamin D) 1,000 unit DAILY PO Last administered on 08/24/16 08:18; Admin Dose 1,000 UNIT; Start 08/14/16 at 09:00 Ferrous Sulfate (Ferrous Sulfate (Ec)) 325 mg BID PO Last administered on 08:18; Admin Dose 325 MG; Start 08/13/16 at 21:00 Fish Oil (Fish Oil) 1,000 mg DAILY PO Last administered on 08/24/16 08:18; Admin Dose 1,000 MG; Start 08/14/16 at 09:00 Lactobacillus Acidoph/Bulgaricus (Floranex) 1 tab TID PO Last administered on 08/24/16 12:15; Admin Dose 1 TAB; Start 08/13/16 at 21:00 Metoprolol Tartrate (Lopressor) 12.5 mg BID PO Last administered on 12/9/16at 08:20; Admin Dose 12.5 MG; Start 08/13/16 at 21:00 Pregabalin (Lyrica) 50 mg TID PO Last administered on 08/24/16 12:15; Admin Dose 50 MG; Start 08/13/16 at 21:00 Pyridoxine HCl (Vitamin B6) 100 mg DAILY PO Last administered on 08/24/16 10: 54; Admin Dose 100 MG; Start 08/14/16 at 09:00 Simethicone (Mylicon) 80 mg Q6H PRN PO INTESTINAL SPASMS/CRAMPING Last administered on 08/16/16 15:27; Admin Dose 80 MG; Start 08/13/16 at 17:30 Vitamin E (Vitamin E) 400 units DAILY PO Last administered on 08/24/16 08:18; Admin Dose 400 UNITS; Start 08/14/16 at 09:00 Fluoxetine HCl (Prozac) 20 mg DAILY PO Last administered on 08/24/16 08:18; Admin Dose 20 MG; Start 08/14/16 at 09:00 Miscellaneous Information 1 ea NOTE XX ; Start 08/13/16 at 18:00 Glucose (Glutose) 15 gm Q15M PRN PO DECREASED GLUCOSE; Start 08/13/16 at 18:00 Glucose (Glutose) 22.5 gm Q15M PRN PO DECREASED GLUCOSE; Start 08/13/16 at 18: 00 Dextrose (D50w Syringe) 25 ml Q15M PRN IV DECREASED GLUCOSE; Start 08/13/16 at 18:00 Dextrose (D50w Syringe) 50 ml Q15M PRN IV DECREASED GLUCOSE; Start 08/13/16 at 18:00 Glucagon (Glucagen) 1 mg Q15M PRN IM DECREASED GLUCOSE; Start 08/13/16 at 18: 00 Glucose (Glutose) 15 gm Q15M PRN BUCCAL DECREASED GLUCOSE; Start 08/13/16 at 18:00 Sodium Hypochlorite (Dakin'S (1/4 Strength)) 1 applic DAILY IRR Last administered on 08/24/16at 10:55; Admin Dose 1 APPLIC; Start 08/13/16 at 20:00 Acetaminophen/ Hydrocodone Bitart ([place] (5/325)) 2 tab Q6H PRN PO MODERATE PAIN LEVEL 4-6 Last administered on 08/24/16 10:51; Admin Dose 2 TAB; Start at 13:00 IV Flush (NS 10 ml) 10 ml PRN PRN IV IV PTOTOCOL; Start 08/14/16 at 17:00 Acetylcysteine (Nac) 600 mg BID PO Last administered on 08/24/16 08:18; Admin Dose 600 MG; Start 08/16/16 at 21:00 Ondansetron HCl (Zofran Inj) 4 mg Q4H PRN IV NAUSEA AND/OR VOMITING; Start 08/16/16 at 12:30 Zolpidem Tartrate (Ambien) 10 mg HS PRN PO INSOMNIA Last administered on 22:18; Admin Dose 10 MG; Start 08/16/16 at 21:00 Lorazepam (Ativan) 1 mg Q6 PRN PO ANXIETY Last administered on 08/18/16 14:37 ; Admin Dose 1 MG; Start 08/18/16 at 14:30 Insulin Glargine (Lantus) 15 unit QHS SC Last administered on 08/23/16 21:04; Admin Dose 15 UNIT; Start 08/19/16 at 21:00 Diagnostic Test (Pha) (Accucheck) 1 ea 02 XX Last administered on 08/21/16 02: 00; Admin Dose 1 EA; Start 08/20/16 at 02:00 Phenol 1 lozenge 1 lozenge Q1H PRN MT DRY MOUTH Last administered on 08/20/16 21:28; Admin Dose 1 LOZENGE; Start 08/20/16 at 20:30 Vancomycin HCl/ Sodium Chloride (Vancocin/NS) 250 ml @ 83.333 mls/ hr Q24H IVPB Last administered on 08/24/16at 12:16; Admin Dose 83.333 MLS/HR; Start 08/22/16 at 12:00 Lorazepam (Ativan) 1 mg HS PRN PO ANXIETY, HELP WITH SLEEP Last administered on 08/23/16 22:18; Admin Dose 1 MG; Start 08/22/16 at 18:30 Miscellaneous Information (*Rx Drug Level Order Reminder*) VANCO TROUGH @ 1, 100 ON ... ONCE ONCE XX ; Start 08/25/16 at 11:00; Stop 08/25/16 at 11:01 GIUSEPPE BREAUX Aug 24, 2016 14:33
[2016-08-24 20:00] VITALS: BP 133/71; PULSE 79; RESP 20
[2016-08-24] MEDS: ATORVASTATIN 10 MG TAB PO SCH (21:08)
[2016-08-24] MEDS: LORAZEPAM 1 MG TAB PO PRN (21:08)
[2016-08-24] MEDS: ZOLPIDEM 5 MG TAB PO PRN (21:08)
[2016-08-24] MEDS: INSULIN GLARGINE [LANtus] 3 ML PEN SC SCH (21:14)
[2016-08-24 22:29] VITALS: PULSE 81
[2016-08-25 00:43] VITALS: PULSE 80
[2016-08-25] MEDS: ALBUTEROL/IPRATROPIUM (NEB) 3 ML AMP HHN SCH ×6 (00:43→20:43)
[2016-08-25] MEDS: ACCUCHECK XX SCH (02:10)
[2016-08-25] MEDS: morphine 2 MG INJ IV PRN ×2 (02:33→16:25)
[2016-08-25 03:35] VITALS: PULSE 80
[2016-08-25 04:43] VITALS: PULSE 80
[2016-08-25] MEDS: HYDROCODONE/APAP (5/325) TAB PO PRN ×2 (05:02→17:42)
[2016-08-25] MEDS: BUMETANIDE 1 MG TAB PO SCH ×2 (05:03→15:07)
[2016-08-25 06:26] LABS: BASOPHIL # 0.1 10^3/ul (0.0-0.1); EOSINOPHILS % 9.9 % (0.0-7.0); HEMOGLOBIN 9.6 g/dl (14.0-18.0); LYMPHOCYTES # 0.9 10^3/ul (0.8-2.9); LYMPHOCYTES % 8.6 % (15.0-51.0); MEAN CORPUSCULAR HEMOGLOBIN 25.1 pg (29.0-33.0); MEAN CORPUSCULAR HGB CONC 32.1 g/dl (32.0-37.0); MEAN CORPUSCULAR VOLUME 78.2 fl (82.0-101.0); MONOCYTE # 0.7 10^3/ul (0.3-0.9); NEUTROPHIL # 7.4 10^3/ul (1.6-7.5); NEUTROPHILS % 73.5 % (39.0-77.0); PLATELET COUNT 308 10^3/UL (140-440); RED BLOOD COUNT 3.84 10^6/ul (4.70-6.10); RED CELL DISTRIBUTION WIDTH 21.8 % (11.5-14.5); UNCORRECTED WBC 10.1 10^3/ul (4.8-10.8); WHITE BLOOD COUNT 10.1 10^3/ul (4.8-10.8)
[2016-08-25 06:45] LABS: POTASSIUM 5.1 mmol/L (3.5-5.1)
[2016-08-25 06:47] LABS: CREATININE 1.46 mg/dl (0.61-1.24)
[2016-08-25 06:48] LABS: CALCIUM 8.2 mg/dl (8.4-10.2)
[2016-08-25 06:59] LABS: CONDITION 1; LH ANALYZER COMMENTS 1
[2016-08-25 07:59] VITALS: BP 136/79; PULSE 99; RESP 22
[2016-08-25] MEDS: INSULIN ASPART [NOVOLOG] 3 ML PEN SC SCH ×7 (08:05→21:07)
[2016-08-25] MEDS: SODIUM HYPOCHLORITE 0.125% 473 ML BTL IRR SCH ×2 (09:00→12:24)
[2016-08-25] MEDS: CHOLECALCIFEROL 1,000 UNIT TAB PO SCH (10:26)
[2016-08-25] MEDS: PYRIDOXINE 50 MG TAB PO SCH (10:26)
[2016-08-25] MEDS: ASPIRIN (EC) 81 MG TAB PO SCH (10:27)
[2016-08-25] MEDS: ALLOPURINOL 100 MG TAB PO SCH (10:27)
[2016-08-25] MEDS: FAMOTIDINE 20 MG TAB PO SCH ×2 (10:27→20:57)
[2016-08-25] MEDS: ASCORBIC ACID 500 MG TAB PO SCH (10:27)
[2016-08-25] MEDS: PREGABALIN 25 MG CAP PO SCH ×3 (10:27→20:57)
[2016-08-25] MEDS: FERROUS SULFATE (EC) 325 MG TAB PO SCH ×2 (10:28→20:57)
[2016-08-25] MEDS: LACTOBACILLUS CHEW TAB PO SCH ×3 (10:28→20:57)
[2016-08-25] MEDS: ACETYLCYSTEINE 600 MG CAP PO SCH ×2 (10:28→20:57)
[2016-08-25] MEDS: VITAMIN E 400 UNITS CAP PO SCH (10:28)
[2016-08-25] MEDS: FISH OIL 1,000 MG CAP PO SCH (10:29)
[2016-08-25] MEDS: FLUOXETINE 20 MG CAP PO SCH (10:29)
[2016-08-25] MEDS: METOPROLOL 25 MG TAB PO SCH ×2 (10:31→21:00)
[2016-08-25] MEDS: HEPARIN 5,000 UNIT/0.5 ML SYG SC SCH ×2 (10:43→21:01)
[2016-08-25] MEDS: VANCOMYCIN 1.25 GM in SOD CHLORIDE 0.9% 250 ML IVPB SCH (12:54)
--- NOTE | 2016-08-25 13:34 | CONS ---
Date/Time of Note Date/Time of Note DATE: 08/25/16 TIME: 13:32 Assessment/Plan Assessment/Plan Chief Complaint/Hosp Course No acute events over night, alert, looks comfortable, no fevers, nad MICROBIOLOGY: 08/13/16 Bld cx+ [facility]NO[facility]: MRI revealed cellulitis and osteomyelitis of the left first toe. ANTIMICROBIALS: Vancomycin Urinalysis on admission was negative. PHYSICAL EXAMINATION: GENERAL: Obese, well-developed, middle-aged white man who is sitting in a chair. Patient is in no distress. HEENT: Head atraumatic, normocephalic. Sclerae anicteric. Buccal mucosa dry. NECK: Supple, trachea midline. CHEST: Rise symmetrical. Breath sounds clear, diminished to bases. HEART: S1, S2. ABDOMEN: Soft, bowel tones present. EXTREMITIES: Bilateral Patrick wraps. ASSESSMENT: 1. Bilateral lower extremities acute on chronic cellulitis with chronic venous stasis and left toe osteomyelitis. 2. Systemic inflammatory response syndrome 2 to above. 3. S/p septicemia==>KENAN 4. Questionable pneumonia as per chest x-ray. 5. Morbid obesity. 6. Atrial fibrillation, chronic. 7. Chronic kidney disease. 8. PAD==> s/p angiogram PLAN: Remains unchanged, repeat bld cx negative, continue abx for 6-8 weeks, f/ u with podiatry outpatient for further rec-s, pending dc staff Problems: Consultation Date/Type/Reason Admit Date/Time Aug 13, 2016 at 16:30 Initial Consult Date 08/13/16 Type of Consultation: ID Referring Provider: KELLEN MEDINA MD Exam/Review of Systems Vital Signs Vitals Vital Signs Date Time Temp Pulse Resp B/P Pulse Ox O2 Delivery O2 Flow Rate FiO2 08/25/16 12:48 84 22 99 Nasal Cannula 4.0 36 08/25/16 07:59 97.6 136/79 Intake and Output 08/24/16 08/24/16 08/25/16 15:00 23:00 07:00 Intake Total 1930 ml Output Total 950 ml Balance 980 ml Results Result Diagram: 08/25/16 0510 08/25/16 0510 Results 24 hrs Laboratory Tests Test 08/24/16 16:54 08/24/16 21:05 08/25/16 01:56 08/25/16 05:10 Bedside Glucose 157 235 H 130 Anion Gap 15 Basophils # 0.1 Basophils % 1.0 Blood Morphology Comment Blood Urea Nitrogen 55 H Calcium Level 8.2 L Carbon Dioxide Level 28 Chloride Level 97 Creatinine 1.46 H Eosinophils # 1.0 H Eosinophils % 9.9 H Glucose Level 119 # Hematocrit 30.0 L Hemoglobin 9.6 L Lymphocytes # 0.9 Lymphocytes % 8.6 L Mean Corpuscular Hemoglobin 25.1 L Mean Corpuscular Hemoglobin Concent 32.1 Mean Corpuscular Volume 78.2 L Mean Platelet Volume 8.0 Monocytes # 0.7 Monocytes % 7.0 Neutrophils # 7.4 Neutrophils % 73.5 Nucleated Red Blood Cells # 0.0 Nucleated Red Blood Cells % 0.0 Platelet Count 308 Potassium Level 5.1 Red Blood Count 3.84 L Red Cell Distribution Width 21.8 H Sodium Level 135 White Blood Count 10.1 Test 08/25/16 07:47 08/25/16 11:15 08/25/16 11:58 Bedside Glucose 115 160 Vancomycin Level Trough 17.8 Medications Medications Current Medications Acetaminophen (Tylenol Tab) 650 mg Q6H PRN PO PAIN LEVEL 1-3 OR FEVER; Start 08/13/16 at 17:30 Acetaminophen/ Hydrocodone Bitart ([place] (5/325)) 1 tab Q6H PRN PO MODERATE PAIN LEVEL 4-6; Start 08/13/16 at 17:30 Morphine Sulfate (morphine) 2 mg Q4H PRN IV SEVERE PAIN LEVEL 7-10 Last administered on 08/25/16at 02:33; Admin Dose 2 MG; Start 08/13/16 at 17:30 Docusate Sodium (Colace) 100 mg Q12H PRN PO CONSTIPATION; Start 08/13/16 at 17 :30 Famotidine (Pepcid) 20 mg Q12 PO Last administered on 08/25/16at 10:27; Admin Dose 20 MG; Start 08/13/16 at 21:00 Heparin Sodium (Porcine) (Heparin (5000 Units/0.5 ml)) 5,000 unit Q12 SC Last administered on 08/25/16at 10:43; Admin Dose 5,000 UNIT; Start 08/13/16 at 21: 00 Allopurinol (Zyloprim) 100 mg DAILY PO Last administered on 08/25/16at 10:27; Admin Dose 100 MG; Start 08/14/16 at 09:00 Ascorbic Acid (Vitamin C) 500 mg DAILY PO Last administered on 08/25/16 10:27 ; Admin Dose 500 MG; Start 08/13/16 at 18:00 Aspirin (Halfprin) 81 mg DAILY PO Last administered on 08/25/16 10:27; Admin Dose 81 MG; Start 08/14/16 at 09:00 Atorvastatin Calcium (Lipitor) 10 mg QHS PO Last administered on 08/24/16 21: 08; Admin Dose 10 MG; Start 08/13/16 at 21:00 Cholecalciferol (Vitamin D) 1,000 unit DAILY PO Last administered on 10:26; Admin Dose 1,000 UNIT; Start 08/14/16 at 09:00 Ferrous Sulfate (Ferrous Sulfate (Ec)) 325 mg BID PO Last administered on 08/25 10:28; Admin Dose 325 MG; Start 08/13/16 at 21:00 Fish Oil (Fish Oil) 1,000 mg DAILY PO Last administered on 08/25/16 10:29; Admin Dose 1,000 MG; Start 08/14/16 at 09:00 Lactobacillus Acidoph/Bulgaricus (Floranex) 1 tab TID PO Last administered on 08/25/16 12:24; Admin Dose 1 TAB; Start 08/13/16 at 21:00 Metoprolol Tartrate (Lopressor) 12.5 mg BID PO Last administered on 08/25/16 10:31; Admin Dose 12.5 MG; Start 08/13/16 at 21:00 Pregabalin (Lyrica) 50 mg TID PO Last administered on 08/25/16 12:24; Admin Dose 50 MG; Start 08/13/16 at 21:00 Pyridoxine HCl (Vitamin B6) 100 mg DAILY PO Last administered on 08/25/16 10: 26; Admin Dose 100 MG; Start 08/14/16 at 09:00 Simethicone (Mylicon) 80 mg Q6H PRN PO INTESTINAL SPASMS/CRAMPING Last administered on 08/16/16 15:27; Admin Dose 80 MG; Start 08/13/16 at 17:30 Vitamin E (Vitamin E) 400 units DAILY PO Last administered on 08/25/16 10:28 ; Admin Dose 400 UNITS; Start 08/14/16 at 09:00 Fluoxetine HCl (Prozac) 20 mg DAILY PO Last administered on 08/25/16at 10:29; Admin Dose 20 MG; Start 08/14/16 at 09:00 Miscellaneous Information 1 ea NOTE XX ; Start 08/13/16 at 18:00 Glucose (Glutose) 15 gm Q15M PRN PO DECREASED GLUCOSE; Start 08/13/16 at 18:00 Glucose (Glutose) 22.5 gm Q15M PRN PO DECREASED GLUCOSE; Start 08/13/16 at 18: 00 Dextrose (D50w Syringe) 25 ml Q15M PRN IV DECREASED GLUCOSE; Start 08/13/16 at 18:00 Dextrose (D50w Syringe) 50 ml Q15M PRN IV DECREASED GLUCOSE; Start 08/13/16 at 18:00 Glucagon (Glucagen) 1 mg Q15M PRN IM DECREASED GLUCOSE; Start 08/13/16 at 18: 00 Glucose (Glutose) 15 gm Q15M PRN BUCCAL DECREASED GLUCOSE; Start 08/13/16 at 18:00 Sodium Hypochlorite (Dakin'S (1/4 Strength)) 1 applic DAILY IRR Last administered on 08/25/16at 12:24; Admin Dose 1 APPLIC; Start 08/13/16 at 20:00 Acetaminophen/ Hydrocodone Bitart ([place] (5/325)) 2 tab Q6H PRN PO MODERATE PAIN LEVEL 4-6 Last administered on 08/25/16at 05:02; Admin Dose 2 TAB; Start 08/14/16 at 13:00 IV Flush (NS 10 ml) 10 ml PRN PRN IV IV PTOTOCOL; Start 08/14/16 at 17:00 Acetylcysteine (Nac) 600 mg BID PO Last administered on 08/25/16at 10:28; Admin Dose 600 MG; Start 08/16/16 at 21:00 Ondansetron HCl (Zofran Inj) 4 mg Q4H PRN IV NAUSEA AND/OR VOMITING; Start 08/16/16 at 12:30 Zolpidem Tartrate (Ambien) 10 mg HS PRN PO INSOMNIA Last administered on at 21:08; Admin Dose 10 MG; Start 08/16/16 at 21:00 Lorazepam (Ativan) 1 mg Q6 PRN PO ANXIETY Last administered on 08/18/16 14:37 ; Admin Dose 1 MG; Start 08/18/16 at 14:30 Insulin Glargine (Lantus) 15 unit QHS SC Last administered on 08/24/16 21:14; Admin Dose 15 UNIT; Start 08/19/16 at 21:00 Diagnostic Test (Pha) (Accucheck) 1 ea 02 XX Last administered on 08/25/16 02 :10; Admin Dose 1 EA; Start 08/20/16 at 02:00 Phenol 1 lozenge 1 lozenge Q1H PRN MT DRY MOUTH Last administered on 08/20/16at 21:28; Admin Dose 1 LOZENGE; Start 08/20/16 at 20:30 Vancomycin HCl/ Sodium Chloride (Vancocin/NS) 250 ml @ 83.333 mls/ hr Q24H IVPB Last administered on 08/25/16at 12:54; Admin Dose 83.333 MLS/HR; Start at 12:00; Stop 08/25/16 at 20:00 Lorazepam 1 mg 1 mg HS PRN PO ANXIETY, HELP WITH SLEEP Last administered on 08/24/16at 21:08; Admin Dose 1 MG; Start 08/22/16 at 18:30 Vancomycin HCl (Vancocin) 250 ml @ 125 mls/hr Q24H IVPB ; Start 08/26/16 at 16 :00 JAMEY VAZQUEZ NP Aug 25, 2016 13:33
--- NOTE | 2016-08-25 14:12 | PN ---
Date/Time of Note Date/Time of Note DATE: 08/25/16 TIME: 14:10 Assessment/Plan VTE Prophylaxis VTE Prophylaxis Intervention: heparin Lines/Catheters IV Catheter Type (from Nrs): PICC Line Central line still needed: Yes Urinary Cath still in place: No Assessment/Plan Chief Complaint/Hosp Course Assessment and plan 1. Left greater toe osteomyelitis/ cellulitis. Continue antibiotics. (Will need 6-8 weeks of antibiotics per ID). Patient assessed by vascular surgeon. Continue recommendations 2. Leukocytosis secondary to #1. At this time. Remains afebrile. Continue on antibiotics 3. Acute on chronic respiratory failure. Patient is reported to be oxygen dependent at home. Continue on O2 supplement. Titrate down start as tolerated. Continue BiPAP as needed. Pulmonary following. 4. Acute on chronic kidney disease. Diuretics renally dosed. avoid nephrotoxic medications possible. Continue with nephrology recommendations. 5. Congestive heart failure with diastolic dysfunction. Continue on diuretics. Aspirin 6. Type 2 diabetes. Patient was noted with recent A1c of 5.8. Continue on insulin siding scale. Continue carbohydrate controlled diet 7. Essential hypertension. Continue antihypertensives and adjust as needed 8. History of atrial fibrillation. Continue on heparin 9. Dyslipidemia. cont statin 10. History of gout. Continue allopurinol 11. Major depression. Continue on SSRI 12. Morbid obesity. Weight reduction advised GERD prophylaxis: Pepcid DVT prophylaxis: Heparin Disposition and plan: await JOHN montalvo. will follow up Discussed plan of care with Dr. Bowers Problems: Subjective 24 Hr Interval Summary Free Text/Dictation no s/s of distress. reports breathng stable at present Exam/Review of Systems Vital Signs Vitals Vital Signs Date Time Temp Pulse Resp B/P Pulse Ox O2 Delivery O2 Flow Rate FiO2 08/25/16 12:48 84 22 99 Nasal Cannula 4.0 36 08/25/16 07:59 97.6 136/79 Intake and Output 08/24/16 08/24/16 08/25/16 15:00 23:00 07:00 Intake Total 1930 ml Output Total 950 ml Balance 980 ml Exam General: No acute signs or symptoms of distress Eyes: pupils equal round, Anicteric sclera Neck: Supple nontender, no JVD Cardiac: S1, S2 auscultated, regular rhythm and rate Pulmonary: Diminished at lung bases. No obvious wheezing or rhonchi auscultated GI: Abdomen soft nontender nondistended, bowel sounds active Extremities: Edema seen bilateral lower extremities posterior Skin: dressing bilateral lower extremities clean dry and intact. Brownish discoloration of bilateral lower extremities Neurologic: Alert to person place and time and situation Results Result Diagram: 08/25/16 0510 08/25/16 0510 Results 24 hrs Laboratory Tests Test 08/24/16 16:54 08/24/16 21:05 08/25/16 01:56 08/25/16 05:10 Bedside Glucose 157 235 H 130 Anion Gap 15 Basophils # 0.1 Basophils % 1.0 Blood Morphology Comment Blood Urea Nitrogen 55 H Calcium Level 8.2 L Carbon Dioxide Level 28 Chloride Level 97 Creatinine 1.46 H Eosinophils # 1.0 H Eosinophils % 9.9 H Glucose Level 119 # Hematocrit 30.0 L Hemoglobin 9.6 L Lymphocytes # 0.9 Lymphocytes % 8.6 L Mean Corpuscular Hemoglobin 25.1 L Mean Corpuscular Hemoglobin Concent 32.1 Mean Corpuscular Volume 78.2 L Mean Platelet Volume 8.0 Monocytes # 0.7 Monocytes % 7.0 Neutrophils # 7.4 Neutrophils % 73.5 Nucleated Red Blood Cells # 0.0 Nucleated Red Blood Cells % 0.0 Platelet Count 308 Potassium Level 5.1 Red Blood Count 3.84 L Red Cell Distribution Width 21.8 H Sodium Level 135 White Blood Count 10.1 Test 08/25/16 07:47 08/25/16 11:15 08/25/16 11:58 Bedside Glucose 115 160 Vancomycin Level Trough 17.8 Medications Medications Current Medications Acetaminophen (Tylenol Tab) 650 mg Q6H PRN PO PAIN LEVEL 1-3 OR FEVER; Start 08/13/16 at 17:30 Acetaminophen/ Hydrocodone Bitart ([place] (5/325)) 1 tab Q6H PRN PO MODERATE PAIN LEVEL 4-6; Start 08/13/16 at 17:30 Morphine Sulfate (morphine) 2 mg Q4H PRN IV SEVERE PAIN LEVEL 7-10 Last administered on 08/25/16at 02:33; Admin Dose 2 MG; Start 08/13/16 at 17:30 Docusate Sodium (Colace) 100 mg Q12H PRN PO CONSTIPATION; Start 08/13/16 at 17 :30 Famotidine (Pepcid) 20 mg Q12 PO Last administered on 08/25/16 10:27; Admin Dose 20 MG; Start 08/13/16 at 21:00 Heparin Sodium (Porcine) (Heparin (5000 Units/0.5 ml)) 5,000 unit Q12 SC Last administered on 08/25/16 10:43; Admin Dose 5,000 UNIT; Start 08/13/16 at 21: 00 Allopurinol (Zyloprim) 100 mg DAILY PO Last administered on 08/25/16 10:27; Admin Dose 100 MG; Start 08/14/16 at 09:00 Ascorbic Acid (Vitamin C) 500 mg DAILY PO Last administered on 08/25/16 10:27 ; Admin Dose 500 MG; Start 08/13/16 at 18:00 Aspirin (Halfprin) 81 mg DAILY PO Last administered on 08/25/16 10:27; Admin Dose 81 MG; Start 08/14/16 at 09:00 Atorvastatin Calcium (Lipitor) 10 mg QHS PO Last administered on 08/24/16 21: 08; Admin Dose 10 MG; Start 08/13/16 at 21:00 Cholecalciferol (Vitamin D) 1,000 unit DAILY PO Last administered on 10:26; Admin Dose 1,000 UNIT; Start 08/14/16 at 09:00 Ferrous Sulfate (Ferrous Sulfate (Ec)) 325 mg BID PO Last administered on 08/25 10:28; Admin Dose 325 MG; Start 08/13/16 at 21:00 Fish Oil (Fish Oil) 1,000 mg DAILY PO Last administered on 08/25/16 10:29; Admin Dose 1,000 MG; Start 08/14/16 at 09:00 Lactobacillus Acidoph/Bulgaricus (Floranex) 1 tab TID PO Last administered on 08/25/16 12:24; Admin Dose 1 TAB; Start 08/13/16 at 21:00 Metoprolol Tartrate (Lopressor) 12.5 mg BID PO Last administered on 08/25/16 10:31; Admin Dose 12.5 MG; Start 08/13/16 at 21:00 Pregabalin (Lyrica) 50 mg TID PO Last administered on 08/25/16 12:24; Admin Dose 50 MG; Start 08/13/16 at 21:00 Pyridoxine HCl (Vitamin B6) 100 mg DAILY PO Last administered on 08/25/16at 10: 26; Admin Dose 100 MG; Start 08/14/16 at 09:00 Simethicone (Mylicon) 80 mg Q6H PRN PO INTESTINAL SPASMS/CRAMPING Last administered on 08/16/16at 15:27; Admin Dose 80 MG; Start 08/13/16 at 17:30 Vitamin E (Vitamin E) 400 units DAILY PO Last administered on 08/25/16 10:28 ; Admin Dose 400 UNITS; Start 08/14/16 at 09:00 Fluoxetine HCl (Prozac) 20 mg DAILY PO Last administered on 08/25/16at 10:29; Admin Dose 20 MG; Start 08/14/16 at 09:00 Miscellaneous Information 1 ea NOTE XX ; Start 08/13/16 at 18:00 Glucose (Glutose) 15 gm Q15M PRN PO DECREASED GLUCOSE; Start 08/13/16 at 18:00 Glucose (Glutose) 22.5 gm Q15M PRN PO DECREASED GLUCOSE; Start 08/13/16 at 18: 00 Dextrose (D50w Syringe) 25 ml Q15M PRN IV DECREASED GLUCOSE; Start 08/13/16 at 18:00 Dextrose (D50w Syringe) 50 ml Q15M PRN IV DECREASED GLUCOSE; Start 08/13/16 at 18:00 Glucagon (Glucagen) 1 mg Q15M PRN IM DECREASED GLUCOSE; Start 08/13/16 at 18: 00 Glucose (Glutose) 15 gm Q15M PRN BUCCAL DECREASED GLUCOSE; Start 08/13/16 at 18:00 Sodium Hypochlorite (Dakin'S (1/4 Strength)) 1 applic DAILY IRR Last administered on 08/25/16at 12:24; Admin Dose 1 APPLIC; Start 08/13/16 at 20:00 Acetaminophen/ Hydrocodone Bitart ([place] (5/325)) 2 tab Q6H PRN PO MODERATE PAIN LEVEL 4-6 Last administered on 08/25/16at 05:02; Admin Dose 2 TAB; Start 08/14/16 at 13:00 IV Flush (NS 10 ml) 10 ml PRN PRN IV IV PTOTOCOL; Start 08/14/16 at 17:00 Acetylcysteine (Nac) 600 mg BID PO Last administered on 08/25/16at 10:28; Admin Dose 600 MG; Start 08/16/16 at 21:00 Ondansetron HCl (Zofran Inj) 4 mg Q4H PRN IV NAUSEA AND/OR VOMITING; Start 08/16/16 at 12:30 Zolpidem Tartrate (Ambien) 10 mg HS PRN PO INSOMNIA Last administered on 21:08; Admin Dose 10 MG; Start 08/16/16 at 21:00 Lorazepam (Ativan) 1 mg Q6 PRN PO ANXIETY Last administered on 08/18/16 14:37 ; Admin Dose 1 MG; Start 08/18/16 at 14:30 Insulin Glargine (Lantus) 15 unit QHS SC Last administered on 08/24/16 21:14; Admin Dose 15 UNIT; Start 08/19/16 at 21:00 Diagnostic Test (Pha) (Accucheck) 1 ea 02 XX Last administered on 08/25/16 02 :10; Admin Dose 1 EA; Start 08/20/16 at 02:00 Phenol 1 lozenge 1 lozenge Q1H PRN MT DRY MOUTH Last administered on 08/20/16 21:28; Admin Dose 1 LOZENGE; Start 08/20/16 at 20:30 Vancomycin HCl/ Sodium Chloride (Vancocin/NS) 250 ml @ 83.333 mls/ hr Q24H IVPB Last administered on 08/25/16at 12:54; Admin Dose 83.333 MLS/HR; Start at 12:00; Stop 08/25/16 at 20:00 Lorazepam 1 mg 1 mg HS PRN PO ANXIETY, HELP WITH SLEEP Last administered on 08/24/16at 21:08; Admin Dose 1 MG; Start 08/22/16 at 18:30 Vancomycin HCl (Vancocin) 250 ml @ 125 mls/hr Q24H IVPB ; Start 08/26/16 at 16 :00 GIUSEPPE BREAUX Aug 25, 2016 14:12
--- NOTE | 2016-08-25 14:27 | CONS ---
Date/Time of Note Date/Time of Note DATE: 08/25/16 TIME: 14:25 Assessment/Plan Assessment/Plan Additional Assessment/Plan 60 yo Male with 1) LORNA on CKD 2) Left toe cellulits OM 3) HTN, Chronic 4) Diastolic Heart Failure, Chronic 5) Pulm HTN 6) Anema, Chronic 7) RLL Patchy Consolidation 8) Anasarca Cont to monitor renal function on increased diuretic Dose Bumex 2mg po bid Cont 1.5L Fluid restriction Daily weights. If patient disharged to Rehab, will follow at ARU.. Consultation Date/Type/Reason Admit Date/Time Aug 13, 2016 at 16:30 Initial Consult Date 08/13/16 Type of Consultation: Nephrology Reason for Consultation LORNA on CKD Referring Provider: KELLEN MEDINA MD 24 HR Interval Summary Constitutional: No requiring O2 Exam/Review of Systems Vital Signs Vitals Vital Signs Date Time Temp Pulse Resp B/P Pulse Ox O2 Delivery O2 Flow Rate FiO2 08/25/16 12:48 84 22 99 Nasal Cannula 4.0 36 08/25/16 07:59 97.6 136/79 Intake and Output 08/24/16 08/24/16 08/25/16 15:00 23:00 07:00 Intake Total 1930 ml Output Total 950 ml Balance 980 ml Exam Constitutional: alert, No distress Head: atraumatic Eyes: EOMI Respiratory: clear to auscultation, No labored breathing Cardiovascular: edema Gastrointestinal: ascites, soft Extremities: pitting pedal edema 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: No lethargic Skin: No diaphoresis Results Result Diagram: 08/25/16 0510 08/25/16 0510 Results 24 hrs Laboratory Tests Test 08/24/16 16:54 08/24/16 21:05 08/25/16 01:56 08/25/16 05:10 Bedside Glucose 157 235 H 130 Anion Gap 15 Basophils # 0.1 Basophils % 1.0 Blood Morphology Comment Blood Urea Nitrogen 55 H Calcium Level 8.2 L Carbon Dioxide Level 28 Chloride Level 97 Creatinine 1.46 H Eosinophils # 1.0 H Eosinophils % 9.9 H Glucose Level 119 # Hematocrit 30.0 L Hemoglobin 9.6 L Lymphocytes # 0.9 Lymphocytes % 8.6 L Mean Corpuscular Hemoglobin 25.1 L Mean Corpuscular Hemoglobin Concent 32.1 Mean Corpuscular Volume 78.2 L Mean Platelet Volume 8.0 Monocytes # 0.7 Monocytes % 7.0 Neutrophils # 7.4 Neutrophils % 73.5 Nucleated Red Blood Cells # 0.0 Nucleated Red Blood Cells % 0.0 Platelet Count 308 Potassium Level 5.1 Red Blood Count 3.84 L Red Cell Distribution Width 21.8 H Sodium Level 135 White Blood Count 10.1 Test 08/25/16 07:47 08/25/16 11:15 08/25/16 11:58 Bedside Glucose 115 160 Vancomycin Level Trough 17.8 Medications Medications Current Medications Acetaminophen (Tylenol Tab) 650 mg Q6H PRN PO PAIN LEVEL 1-3 OR FEVER; Start 08/13/16 at 17:30 Acetaminophen/ Hydrocodone Bitart ([place] (5/325)) 1 tab Q6H PRN PO MODERATE PAIN LEVEL 4-6; Start 08/13/16 at 17:30 Morphine Sulfate (morphine) 2 mg Q4H PRN IV SEVERE PAIN LEVEL 7-10 Last administered on 08/25/16at 02:33; Admin Dose 2 MG; Start 08/13/16 at 17:30 Docusate Sodium (Colace) 100 mg Q12H PRN PO CONSTIPATION; Start 08/13/16 at 17 :30 Famotidine (Pepcid) 20 mg Q12 PO Last administered on 08/25/16at 10:27; Admin Dose 20 MG; Start 08/13/16 at 21:00 Heparin Sodium (Porcine) (Heparin (5000 Units/0.5 ml)) 5,000 unit Q12 SC Last administered on 08/25/16at 10:43; Admin Dose 5,000 UNIT; Start 08/13/16 at 21: 00 Allopurinol (Zyloprim) 100 mg DAILY PO Last administered on 08/25/16 10:27; Admin Dose 100 MG; Start 08/14/16 at 09:00 Ascorbic Acid (Vitamin C) 500 mg DAILY PO Last administered on 08/25/16 10:27 ; Admin Dose 500 MG; Start 08/13/16 at 18:00 Aspirin (Halfprin) 81 mg DAILY PO Last administered on 08/25/16 10:27; Admin Dose 81 MG; Start 08/14/16 at 09:00 Atorvastatin Calcium (Lipitor) 10 mg QHS PO Last administered on 08/24/16at 21: 08; Admin Dose 10 MG; Start 08/13/16 at 21:00 Cholecalciferol (Vitamin D) 1,000 unit DAILY PO Last administered on 10:26; Admin Dose 1,000 UNIT; Start 08/14/16 at 09:00 Ferrous Sulfate (Ferrous Sulfate (Ec)) 325 mg BID PO Last administered on 08/25 10:28; Admin Dose 325 MG; Start 08/13/16 at 21:00 Fish Oil (Fish Oil) 1,000 mg DAILY PO Last administered on 08/25/16 10:29; Admin Dose 1,000 MG; Start 08/14/16 at 09:00 Lactobacillus Acidoph/Bulgaricus (Floranex) 1 tab TID PO Last administered on 08/25/16 12:24; Admin Dose 1 TAB; Start 08/13/16 at 21:00 Metoprolol Tartrate (Lopressor) 12.5 mg BID PO Last administered on 08/25/16 10:31; Admin Dose 12.5 MG; Start 08/13/16 at 21:00 Pregabalin (Lyrica) 50 mg TID PO Last administered on 08/25/16 12:24; Admin Dose 50 MG; Start 08/13/16 at 21:00 Pyridoxine HCl (Vitamin B6) 100 mg DAILY PO Last administered on 08/25/16 10: 26; Admin Dose 100 MG; Start 08/14/16 at 09:00 Simethicone (Mylicon) 80 mg Q6H PRN PO INTESTINAL SPASMS/CRAMPING Last administered on 08/16/16at 15:27; Admin Dose 80 MG; Start 08/13/16 at 17:30 Vitamin E (Vitamin E) 400 units DAILY PO Last administered on 08/25/16 10:28 ; Admin Dose 400 UNITS; Start 08/14/16 at 09:00 Fluoxetine HCl (Prozac) 20 mg DAILY PO Last administered on 08/25/16 10:29; Admin Dose 20 MG; Start 08/14/16 at 09:00 Miscellaneous Information 1 ea NOTE XX ; Start 08/13/16 at 18:00 Glucose (Glutose) 15 gm Q15M PRN PO DECREASED GLUCOSE; Start 08/13/16 at 18:00 Glucose (Glutose) 22.5 gm Q15M PRN PO DECREASED GLUCOSE; Start 08/13/16 at 18: 00 Dextrose (D50w Syringe) 25 ml Q15M PRN IV DECREASED GLUCOSE; Start 08/13/16 at 18:00 Dextrose (D50w Syringe) 50 ml Q15M PRN IV DECREASED GLUCOSE; Start 08/13/16 at 18:00 Glucagon (Glucagen) 1 mg Q15M PRN IM DECREASED GLUCOSE; Start 08/13/16 at 18: 00 Glucose (Glutose) 15 gm Q15M PRN BUCCAL DECREASED GLUCOSE; Start 08/13/16 at 18:00 Sodium Hypochlorite (Dakin'S (1/4 Strength)) 1 applic DAILY IRR Last administered on 08/25/16at 12:24; Admin Dose 1 APPLIC; Start 08/13/16 at 20:00 Acetaminophen/ Hydrocodone Bitart ([place] (5/325)) 2 tab Q6H PRN PO MODERATE PAIN LEVEL 4-6 Last administered on 08/25/16at 05:02; Admin Dose 2 TAB; Start 08/14/16 at 13:00 IV Flush (NS 10 ml) 10 ml PRN PRN IV IV PTOTOCOL; Start 08/14/16 at 17:00 Acetylcysteine (Nac) 600 mg BID PO Last administered on 08/25/16at 10:28; Admin Dose 600 MG; Start 08/16/16 at 21:00 Ondansetron HCl (Zofran Inj) 4 mg Q4H PRN IV NAUSEA AND/OR VOMITING; Start 08/16/16 at 12:30 Zolpidem Tartrate (Ambien) 10 mg HS PRN PO INSOMNIA Last administered on at 21:08; Admin Dose 10 MG; Start 08/16/16 at 21:00 Lorazepam (Ativan) 1 mg Q6 PRN PO ANXIETY Last administered on 08/18/16at 14:37 ; Admin Dose 1 MG; Start 08/18/16 at 14:30 Insulin Glargine (Lantus) 15 unit QHS SC Last administered on 08/24/16at 21:14; Admin Dose 15 UNIT; Start 08/19/16 at 21:00 Diagnostic Test (Pha) (Accucheck) 1 ea 02 XX Last administered on 08/25/16at 02 :10; Admin Dose 1 EA; Start 12/5/16 at 02:00 Phenol 1 lozenge 1 lozenge Q1H PRN MT DRY MOUTH Last administered on 08/20/16at 21:28; Admin Dose 1 LOZENGE; Start 08/20/16 at 20:30 Vancomycin HCl/ Sodium Chloride (Vancocin/NS) 250 ml @ 83.333 mls/ hr Q24H IVPB Last administered on 08/25/16at 12:54; Admin Dose 83.333 MLS/HR; Start at 12:00; Stop 08/25/16 at 20:00 Lorazepam 1 mg 1 mg HS PRN PO ANXIETY, HELP WITH SLEEP Last administered on 08/24/16at 21:08; Admin Dose 1 MG; Start 08/22/16 at 18:30 Vancomycin HCl (Vancocin) 250 ml @ 125 mls/hr Q24H IVPB ; Start 08/26/16 at 16 :00 DYAN FRANKLIN MD Aug 25, 2016 14:26
[2016-08-25 20:00] VITALS: BP 120/62; PULSE 75; RESP 16
[2016-08-25] MEDS: ATORVASTATIN 10 MG TAB PO SCH (20:57)
[2016-08-25] MEDS: INSULIN GLARGINE [LANtus] 3 ML PEN SC SCH (21:27)
[2016-08-25] MEDS: ZOLPIDEM 5 MG TAB PO PRN (22:08)
[2016-08-25] MEDS: LORAZEPAM 0.5 MG TAB PO PRN (22:08)
[2016-08-25 22:58] VITALS: PULSE 87
[2016-08-26] VITALS (8 sets, daily range): BP systolic 137–155; BP diastolic 66–75; PULSE 85–87; RESP 18–20
[2016-08-26] MEDS: ALBUTEROL/IPRATROPIUM (NEB) 3 ML AMP HHN SCH ×6 (00:55→21:12)
[2016-08-26] MEDS: ACCUCHECK XX SCH (02:46)
[2016-08-26 05:57] LABS: CREATININE 1.58 mg/dl (0.61-1.24)
[2016-08-26 05:58] LABS: CALCIUM 8.3 mg/dl (8.4-10.2)
[2016-08-26 06:01] LABS: BASOPHIL # 0.2 10^3/ul (0.0-0.1); BASOPHILS % 1.5 % (0.0-2.0); EOSINOPHILS # 0.8 10^3/ul (0.0-0.5); EOSINOPHILS % 7.8 % (0.0-7.0); HEMATOCRIT 29.5 % (42.0-52.0); HEMOGLOBIN 9.5 g/dl (14.0-18.0); LYMPHOCYTES # 0.8 10^3/ul (0.8-2.9); LYMPHOCYTES % 8.2 % (15.0-51.0); MEAN CORPUSCULAR HGB CONC 32.1 g/dl (32.0-37.0); MONOCYTE # 0.8 10^3/ul (0.3-0.9); MONOCYTES % 8.1 % (0.0-11.0); NEUTROPHIL # 7.4 10^3/ul (1.6-7.5); NEUTROPHILS % 74.4 % (39.0-77.0); PLATELET COUNT 286 10^3/UL (140-440); RED BLOOD COUNT 3.78 10^6/ul (4.70-6.10); RED CELL DISTRIBUTION WIDTH 21.1 % (11.5-14.5)
[2016-08-26] MEDS: BUMETANIDE 1 MG TAB PO SCH ×2 (06:23→13:36)
[2016-08-26 06:27] LABS: CONDITION 1; LH ANALYZER COMMENTS 1
[2016-08-26] MEDS: INSULIN ASPART [NOVOLOG] 3 ML PEN SC SCH ×7 (08:15→20:55)
[2016-08-26] MEDS: CHOLECALCIFEROL 1,000 UNIT TAB PO SCH (09:00)
[2016-08-26] MEDS: LACTOBACILLUS CHEW TAB PO SCH ×3 (09:00→20:40)
[2016-08-26] MEDS: FISH OIL 1,000 MG CAP PO SCH (09:00)
[2016-08-26] MEDS: ACETYLCYSTEINE 600 MG CAP PO SCH ×2 (09:00→20:40)
[2016-08-26] MEDS: ASCORBIC ACID 500 MG TAB PO SCH (09:00)
[2016-08-26] MEDS: ASPIRIN (EC) 81 MG TAB PO SCH (09:01)
[2016-08-26] MEDS: ALLOPURINOL 100 MG TAB PO SCH (09:01)
[2016-08-26] MEDS: FLUOXETINE 20 MG CAP PO SCH (09:01)
[2016-08-26] MEDS: FAMOTIDINE 20 MG TAB PO SCH ×2 (09:01→20:40)
[2016-08-26] MEDS: FERROUS SULFATE (EC) 325 MG TAB PO SCH ×2 (09:01→20:41)
[2016-08-26] MEDS: METOPROLOL 25 MG TAB PO SCH ×2 (09:01→20:42)
[2016-08-26] MEDS: SODIUM HYPOCHLORITE 0.125% 473 ML BTL IRR SCH (09:02)
[2016-08-26] MEDS: VITAMIN E 400 UNITS CAP PO SCH (09:05)
[2016-08-26] MEDS: PREGABALIN 25 MG CAP PO SCH ×3 (09:05→20:41)
[2016-08-26] MEDS: PYRIDOXINE 50 MG TAB PO SCH (09:05)
--- NOTE | 2016-08-26 11:18 | PN ---
Date/Time of Note Date/Time of Note DATE: 08/26/16 TIME: 11:17 Assessment/Plan VTE Prophylaxis VTE Prophylaxis Intervention: heparin Lines/Catheters IV Catheter Type (from Nrs): PICC Line Central line still needed: Yes Urinary Cath still in place: No Assessment/Plan Chief Complaint/Hosp Course Assessment and plan 1. Left greater toe osteomyelitis/ cellulitis. Continue antibiotics. (Will need 6-8 weeks total of antibiotics per ID). Patient assessed by vascular surgeon. Continue recommendations 2. Leukocytosis secondary to #1. At this time. Remains afebrile. Continue on antibiotics 3. Acute on chronic respiratory failure. Patient is reported to be oxygen dependent at home. Continue on O2 supplement. Titrate down start as tolerated. Continue BiPAP as needed. Pulmonary following. Patient with some shortness of breath more this morning. We'll check chest x-ray 4. Acute on chronic kidney disease. Diuretics renally dosed. avoid nephrotoxic medications possible. Continue with nephrology recommendations. Of note renal function slightly worse today 5. Congestive heart failure with diastolic dysfunction. Continue on diuretics. Aspirin 6. Type 2 diabetes. Patient was noted with recent A1c of 5.8. Continue on insulin siding scale. Continue carbohydrate controlled diet 7. Essential hypertension. Continue antihypertensives and adjust as needed 8. History of atrial fibrillation. Continue on heparin 9. Dyslipidemia. cont statin 10. History of gout. Continue allopurinol 11. Major depression. Continue on SSRI 12. Morbid obesity. Weight reduction advised GERD prophylaxis: Pepcid DVT prophylaxis: Heparin Disposition and plan: await ARU eval. monitor renal panel. More noted with shortness of breath today we'll check follow-up x-ray of the chest Discussed plan of care with Dr. Bowers Problems: Subjective 24 Hr Interval Summary Free Text/Dictation With more shortness of breath noted this morning Exam/Review of Systems Vital Signs Vitals Vital Signs Date Time Temp Pulse Resp B/P Pulse Ox O2 Delivery O2 Flow Rate FiO2 08/26/16 08:41 85 97 40 08/26/16 08:00 97.8 20 155/75 Nasal Cannula 5.0 Intake and Output 08/25/16 08/25/16 08/26/16 15:00 23:00 07:00 Intake Total 720 ml 400 ml Output Total 900 ml 400 ml Balance -180 ml 0 ml Exam General: No acute signs or symptoms of distress Eyes: pupils equal round, Anicteric sclera Neck: Supple nontender, no JVD Cardiac: S1, S2 auscultated, regular rhythm and rate Pulmonary: Diminished at lung bases. No obvious wheezing or rhonchi auscultated GI: Abdomen soft nontender nondistended, bowel sounds active Extremities: Edema seen bilateral lower extremities posterior Skin: dressing bilateral lower extremities clean dry and intact. Brownish discoloration of bilateral lower extremities Neurologic: Alert to person place and time and situation Results Result Diagram: 08/26/16 0450 08/26/16 0450 Results 24 hrs Laboratory Tests Test 08/25/16 11:58 08/25/16 17:08 08/26/16 02:40 08/26/16 04:50 Bedside Glucose 160 147 107 Albumin 3.2 L Anion Gap 14 Basophils # 0.2 H Basophils % 1.5 Blood Morphology Comment Blood Urea Nitrogen 61 H Calcium Level 8.3 L Carbon Dioxide Level 27 Chloride Level 97 Creatinine 1.58 H Eosinophils # 0.8 H Eosinophils % 7.8 H Glucose Level 109 Hematocrit 29.5 L Hemoglobin 9.5 L Lymphocytes # 0.8 Lymphocytes % 8.2 L Mean Corpuscular Hemoglobin 25.0 L Mean Corpuscular Hemoglobin Concent 32.1 Mean Corpuscular Volume 78.0 L Mean Platelet Volume 8.0 Monocytes # 0.8 Monocytes % 8.1 Neutrophils # 7.4 Neutrophils % 74.4 Nucleated Red Blood Cells # 0.0 Nucleated Red Blood Cells % 0.0 Platelet Count 286 Potassium Level 5.0 Red Blood Count 3.78 L Red Cell Distribution Width 21.1 H Sodium Level 133 L White Blood Count 10.0 Test 08/26/16 07:59 Bedside Glucose 115 Medications Medications Current Medications Acetaminophen (Tylenol Tab) 650 mg Q6H PRN PO PAIN LEVEL 1-3 OR FEVER; Start 08/13/16 at 17:30 Acetaminophen/ Hydrocodone Bitart ([place] (5/325)) 1 tab Q6H PRN PO MODERATE PAIN LEVEL 4-6; Start 08/13/16 at 17:30 Morphine Sulfate (morphine) 2 mg Q4H PRN IV SEVERE PAIN LEVEL 7-10 Last administered on 08/25/16at 16:25; Admin Dose 2 MG; Start 08/13/16 at 17:30 Docusate Sodium (Colace) 100 mg Q12H PRN PO CONSTIPATION; Start 08/13/16 at 17 :30 Famotidine (Pepcid) 20 mg Q12 PO Last administered on 08/26/16 09:01; Admin Dose 20 MG; Start 08/13/16 at 21:00 Heparin Sodium (Porcine) (Heparin (5000 Units/0.5 ml)) 5,000 unit Q12 SC Last administered on 08/25/16 21:01; Admin Dose 5,000 UNIT; Start 08/13/16 at 21: 00; Status Future Hold Allopurinol (Zyloprim) 100 mg DAILY PO Last administered on 08/26/16 09:01; Admin Dose 100 MG; Start 08/14/16 at 09:00 Ascorbic Acid (Vitamin C) 500 mg DAILY PO Last administered on 08/26/16 09:00 ; Admin Dose 500 MG; Start 08/13/16 at 18:00 Aspirin (Halfprin) 81 mg DAILY PO Last administered on 08/26/16 09:01; Admin Dose 81 MG; Start 08/14/16 at 09:00 Atorvastatin Calcium (Lipitor) 10 mg QHS PO Last administered on 08/25/16 20: 57; Admin Dose 10 MG; Start 08/13/16 at 21:00 Cholecalciferol (Vitamin D) 1,000 unit DAILY PO Last administered on 09:00; Admin Dose 1,000 UNIT; Start 08/14/16 at 09:00 Ferrous Sulfate (Ferrous Sulfate (Ec)) 325 mg BID PO Last administered on 08/26 09:01; Admin Dose 325 MG; Start 08/13/16 at 21:00 Fish Oil (Fish Oil) 1,000 mg DAILY PO Last administered on 08/26/16 09:00; Admin Dose 1,000 MG; Start 08/14/16 at 09:00 Lactobacillus Acidoph/Bulgaricus (Floranex) 1 tab TID PO Last administered on 08/26/16 09:00; Admin Dose 1 TAB; Start 08/13/16 at 21:00 Metoprolol Tartrate (Lopressor) 12.5 mg BID PO Last administered on 08/26/16 09:01; Admin Dose 12.5 MG; Start 08/13/16 at 21:00 Pregabalin (Lyrica) 50 mg TID PO Last administered on 08/26/16 09:05; Admin Dose 50 MG; Start 08/13/16 at 21:00 Pyridoxine HCl (Vitamin B6) 100 mg DAILY PO Last administered on 08/26/16at 09: 05; Admin Dose 100 MG; Start 08/14/16 at 09:00 Simethicone (Mylicon) 80 mg Q6H PRN PO INTESTINAL SPASMS/CRAMPING Last administered on 08/16/16at 15:27; Admin Dose 80 MG; Start 08/13/16 at 17:30 Vitamin E (Vitamin E) 400 units DAILY PO Last administered on 08/26/16at 09:05 ; Admin Dose 400 UNITS; Start 08/14/16 at 09:00 Fluoxetine HCl (Prozac) 20 mg DAILY PO Last administered on 08/26/16at 09:01; Admin Dose 20 MG; Start 08/14/16 at 09:00 Miscellaneous Information 1 ea NOTE XX ; Start 08/13/16 at 18:00 Glucose (Glutose) 15 gm Q15M PRN PO DECREASED GLUCOSE; Start 08/13/16 at 18:00 Glucose (Glutose) 22.5 gm Q15M PRN PO DECREASED GLUCOSE; Start 08/13/16 at 18: 00 Dextrose (D50w Syringe) 25 ml Q15M PRN IV DECREASED GLUCOSE; Start 08/13/16 at 18:00 Dextrose (D50w Syringe) 50 ml Q15M PRN IV DECREASED GLUCOSE; Start 08/13/16 at 18:00 Glucagon (Glucagen) 1 mg Q15M PRN IM DECREASED GLUCOSE; Start 08/13/16 at 18: 00 Glucose (Glutose) 15 gm Q15M PRN BUCCAL DECREASED GLUCOSE; Start 08/13/16 at 18:00 Sodium Hypochlorite (Dakin'S (1/4 Strength)) 1 applic DAILY IRR Last administered on 08/26/16at 09:02; Admin Dose 1 APPLIC; Start 08/13/16 at 20:00 Acetaminophen/ Hydrocodone Bitart ([place] (5/325)) 2 tab Q6H PRN PO MODERATE PAIN LEVEL 4-6 Last administered on 08/25/16at 17:42; Admin Dose 2 TAB; Start 08/14/16 at 13:00 IV Flush (NS 10 ml) 10 ml PRN PRN IV IV PTOTOCOL; Start 08/14/16 at 17:00 Acetylcysteine (Nac) 600 mg BID PO Last administered on 08/26/16 09:00; Admin Dose 600 MG; Start 08/16/16 at 21:00 Ondansetron HCl (Zofran Inj) 4 mg Q4H PRN IV NAUSEA AND/OR VOMITING; Start 08/16/16 at 12:30 Zolpidem Tartrate (Ambien) 10 mg HS PRN PO INSOMNIA Last administered on 22:08; Admin Dose 10 MG; Start 08/16/16 at 21:00 Lorazepam (Ativan) 1 mg Q6 PRN PO ANXIETY Last administered on 08/25/16 22:08 ; Admin Dose 1 MG; Start 08/18/16 at 14:30 Insulin Glargine (Lantus) 15 unit QHS SC Last administered on 08/25/16 21:27 ; Admin Dose 15 UNIT; Start 08/19/16 at 21:00 Diagnostic Test (Pha) (Accucheck) 1 ea 02 XX Last administered on 08/26/16at 02 :46; Admin Dose 1 EA; Start 08/20/16 at 02:00 Phenol (Cepastat Lozenge) 1 lozenge Q1H PRN MT DRY MOUTH Last administered on 08/20/16 21:28; Admin Dose 1 LOZENGE; Start 08/20/16 at 20:30 Lorazepam 1 mg 1 mg HS PRN PO ANXIETY, HELP WITH SLEEP Last administered on 08/24/16at 21:08; Admin Dose 1 MG; Start 08/22/16 at 18:30 Vancomycin HCl (Vancocin) 250 ml @ 125 mls/hr Q24H IVPB ; Start 08/26/16 at 16 :00 Bumetanide (Bumex) 2 mg BID@06,14 PO Last administered on 08/26/16 06:23; Admin Dose 2 MG; Start 08/25/16 at 14:00 GIUSEPPE BREAUX Aug 26, 2016 11:18
--- NOTE | 2016-08-26 13:32 | RADRPT ---
PROCEDURE: Chest 1 views. CLINICAL INDICATION: Shortness of breath TECHNIQUE: AP views of the chest were obtained. COMPARISON: August 18, 2016 FINDINGS: The heart is large. Calcified atherosclerosis is noted in the aorta. Central pulmonary vascular con gestion and interstitial prominence is seen in both lungs. Patchy right mid and lower lung infiltra chi combined small pleural effusion appears similar to prior exam. Scattered atelectasis is noted i n the left lower lobe. Right-sided PICC line is stable. Osseous structures are intact. IMPRESSION: Cardiomegaly with calcified atherosclerosis in the aorta. Mild central pulmonary vascular congestion and interstitial prominence in both lungs. Stable right mid and lower lung infiltrates combined with small pleural effusion. Atelectasis at the left lung base. RPTAT: AA .Curly Trujillo MD, Date Time Electronically viewed and signed by .Curly Trujillo MD, on 08/26/2016 13:32 .P/
[2016-08-26] MEDS: HYDROCODONE/APAP (5/325) TAB PO PRN (15:16)
[2016-08-26] MEDS: morphine 2 MG INJ IV PRN (16:03)
--- NOTE | 2016-08-26 16:58 | CONS ---
Date/Time of Note Date/Time of Note DATE: 08/26/16 TIME: 16:55 Assessment/Plan Assessment/Plan Chief Complaint/Hosp Course ID PROGRESS NOTE 24H INTERVAL SUMMARY * 60 yo M, resting comfortably, no new issues, no new c/o, Stable, VSS, WBC * Notes reviewed: Recommend wound care and evaluation for Hyperbaric Management if possible. He may need amputation/debridement of the first toe * MICROBIOLOGY: Bld cx+ KENAN / Urinalysis on admission was negative. * DIAGNOSTICS: MRI revealed cellulitis and osteomyelitis of the left first toe. * ANTIMICROBIALS: Vancomycin IV (s/p Rocephin) PHYSICAL EXAMINATION: GENERAL: Overweight M, OOB-> Chair, VSS, NAD HEENT: Unremarkable NECK: Supple, trachea midline. CHEST: Rise symmetrical. ABDOMEN: Soft, EXTREMITIES: Bilateral Patrick wraps. ID ASSESSMENT: 1. Bilateral lower extremities acute on chronic cellulitis with chronic venous stasis and left toe osteomyelitis. 2. Systemic inflammatory response syndrome 2 to above. 3. Septicemia==>KENAN 4. Questionable pneumonia as per chest x-ray. 5. Morbid obesity. 6. Atrial fibrillation, chronic. 7. Chronic kidney disease. 8. PAD==> s/p angiogram (-)MRSA Nares CURRENT ABX: Vanco IV ID PLAN: Continue IV ABX anticipate 6 weeks minimum => LAST DAY 09/24/2016 => May transfer to SNF on current ABX => Per notes = Wound care w/Hyperbaric Tx vs future amputation . Problems: Consultation Date/Type/Reason Admit Date/Time Aug 13, 2016 at 16:30 Initial Consult Date 08/13/16 Type of Consultation: ID Referring Provider: KELLEN MEDINA MD Exam/Review of Systems Vital Signs Vitals Vital Signs Date Time Temp Pulse Resp B/P Pulse Ox O2 Delivery O2 Flow Rate FiO2 08/26/16 13:53 5.0 08/26/16 13:53 88 18 Nasal Cannula 08/26/16 09:15 40 08/26/16 08:41 97 08/26/16 08:00 97.8 155/75 Intake and Output 08/25/16 08/25/16 08/26/16 15:00 23:00 07:00 Intake Total 720 ml 400 ml Output Total 900 ml 400 ml Balance -180 ml 0 ml Results Result Diagram: 08/26/16 0450 08/26/16 0450 Results 24 hrs Laboratory Tests Test 08/25/16 17:08 08/26/16 02:40 08/26/16 04:50 08/26/16 07:59 Bedside Glucose 147 107 115 Albumin 3.2 L Anion Gap 14 Basophils # 0.2 H Basophils % 1.5 Blood Morphology Comment Blood Urea Nitrogen 61 H Calcium Level 8.3 L Carbon Dioxide Level 27 Chloride Level 97 Creatinine 1.58 H Eosinophils # 0.8 H Eosinophils % 7.8 H Glucose Level 109 Hematocrit 29.5 L Hemoglobin 9.5 L Lymphocytes # 0.8 Lymphocytes % 8.2 L Mean Corpuscular Hemoglobin 25.0 L Mean Corpuscular Hemoglobin Concent 32.1 Mean Corpuscular Volume 78.0 L Mean Platelet Volume 8.0 Monocytes # 0.8 Monocytes % 8.1 Neutrophils # 7.4 Neutrophils % 74.4 Nucleated Red Blood Cells # 0.0 Nucleated Red Blood Cells % 0.0 Platelet Count 286 Potassium Level 5.0 Red Blood Count 3.78 L Red Cell Distribution Width 21.1 H Sodium Level 133 L White Blood Count 10.0 Test 08/26/16 11:55 Bedside Glucose 173 Medications Medications Current Medications Acetaminophen (Tylenol Tab) 650 mg Q6H PRN PO PAIN LEVEL 1-3 OR FEVER; Start 08/13/16 at 17:30 Acetaminophen/ Hydrocodone Bitart ([place] (5/325)) 1 tab Q6H PRN PO MODERATE PAIN LEVEL 4-6; Start 08/13/16 at 17:30 Morphine Sulfate (morphine) 2 mg Q4H PRN IV SEVERE PAIN LEVEL 7-10 Last administered on 08/26/16at 16:03; Admin Dose 2 MG; Start 08/13/16 at 17:30 Docusate Sodium (Colace) 100 mg Q12H PRN PO CONSTIPATION; Start 08/13/16 at 17 :30 Famotidine (Pepcid) 20 mg Q12 PO Last administered on 08/26/16at 09:01; Admin Dose 20 MG; Start 08/13/16 at 21:00 Heparin Sodium (Porcine) (Heparin (5000 Units/0.5 ml)) 5,000 unit Q12 SC Last administered on 08/25/16at 21:01; Admin Dose 5,000 UNIT; Start 08/13/16 at 21: 00; Status Future Hold Allopurinol (Zyloprim) 100 mg DAILY PO Last administered on 08/26/16 09:01; Admin Dose 100 MG; Start 08/14/16 at 09:00 Ascorbic Acid (Vitamin C) 500 mg DAILY PO Last administered on 08/26/16 09:00 ; Admin Dose 500 MG; Start 08/13/16 at 18:00 Aspirin (Halfprin) 81 mg DAILY PO Last administered on 08/26/16 09:01; Admin Dose 81 MG; Start 08/14/16 at 09:00 Atorvastatin Calcium (Lipitor) 10 mg QHS PO Last administered on 08/25/16 20: 57; Admin Dose 10 MG; Start 08/13/16 at 21:00 Cholecalciferol (Vitamin D) 1,000 unit DAILY PO Last administered on 09:00; Admin Dose 1,000 UNIT; Start 08/14/16 at 09:00 Ferrous Sulfate (Ferrous Sulfate (Ec)) 325 mg BID PO Last administered on 08/26 09:01; Admin Dose 325 MG; Start 08/13/16 at 21:00 Fish Oil (Fish Oil) 1,000 mg DAILY PO Last administered on 08/26/16 09:00; Admin Dose 1,000 MG; Start 08/14/16 at 09:00 Lactobacillus Acidoph/Bulgaricus (Floranex) 1 tab TID PO Last administered on 08/26/16 13:36; Admin Dose 1 TAB; Start 08/13/16 at 21:00 Metoprolol Tartrate (Lopressor) 12.5 mg BID PO Last administered on 08/26/16 09:01; Admin Dose 12.5 MG; Start 08/13/16 at 21:00 Pregabalin (Lyrica) 50 mg TID PO Last administered on 08/26/16 13:36; Admin Dose 50 MG; Start 08/13/16 at 21:00 Pyridoxine HCl (Vitamin B6) 100 mg DAILY PO Last administered on 08/26/16 09: 05; Admin Dose 100 MG; Start 08/14/16 at 09:00 Simethicone (Mylicon) 80 mg Q6H PRN PO INTESTINAL SPASMS/CRAMPING Last administered on 08/16/16 15:27; Admin Dose 80 MG; Start 08/13/16 at 17:30 Vitamin E (Vitamin E) 400 units DAILY PO Last administered on 08/26/16at 09:05 ; Admin Dose 400 UNITS; Start 08/14/16 at 09:00 Fluoxetine HCl (Prozac) 20 mg DAILY PO Last administered on 08/26/16at 09:01; Admin Dose 20 MG; Start 08/14/16 at 09:00 Miscellaneous Information 1 ea NOTE XX ; Start 08/13/16 at 18:00 Glucose (Glutose) 15 gm Q15M PRN PO DECREASED GLUCOSE; Start 08/13/16 at 18:00 Glucose (Glutose) 22.5 gm Q15M PRN PO DECREASED GLUCOSE; Start 08/13/16 at 18: 00 Dextrose (D50w Syringe) 25 ml Q15M PRN IV DECREASED GLUCOSE; Start 08/13/16 at 18:00 Dextrose (D50w Syringe) 50 ml Q15M PRN IV DECREASED GLUCOSE; Start 08/13/16 at 18:00 Glucagon (Glucagen) 1 mg Q15M PRN IM DECREASED GLUCOSE; Start 08/13/16 at 18: 00 Glucose (Glutose) 15 gm Q15M PRN BUCCAL DECREASED GLUCOSE; Start 08/13/16 at 18:00 Sodium Hypochlorite (Dakin'S (1/4 Strength)) 1 applic DAILY IRR Last administered on 08/26/16at 09:02; Admin Dose 1 APPLIC; Start 08/13/16 at 20:00 Acetaminophen/ Hydrocodone Bitart ([place] (5/325)) 2 tab Q6H PRN PO MODERATE PAIN LEVEL 4-6 Last administered on 08/26/16at 15:16; Admin Dose 2 TAB; Start 08/14/16 at 13:00 IV Flush (NS 10 ml) 10 ml PRN PRN IV IV PTOTOCOL; Start 08/14/16 at 17:00 Acetylcysteine (Nac) 600 mg BID PO Last administered on 08/26/16at 09:00; Admin Dose 600 MG; Start 08/16/16 at 21:00 Ondansetron HCl (Zofran Inj) 4 mg Q4H PRN IV NAUSEA AND/OR VOMITING; Start 08/16/16 at 12:30 Zolpidem Tartrate (Ambien) 10 mg HS PRN PO INSOMNIA Last administered on at 22:08; Admin Dose 10 MG; Start 08/16/16 at 21:00 Lorazepam (Ativan) 1 mg Q6 PRN PO ANXIETY Last administered on 08/25/16 22:08 ; Admin Dose 1 MG; Start 08/18/16 at 14:30 Insulin Glargine (Lantus) 15 unit QHS SC Last administered on 08/25/16 21:27 ; Admin Dose 15 UNIT; Start 08/19/16 at 21:00 Diagnostic Test (Pha) (Accucheck) 1 ea 02 XX Last administered on 08/26/16 02 :46; Admin Dose 1 EA; Start 08/20/16 at 02:00 Phenol (Cepastat Lozenge) 1 lozenge Q1H PRN MT DRY MOUTH Last administered on 08/20/16 21:28; Admin Dose 1 LOZENGE; Start 08/20/16 at 20:30 Lorazepam 1 mg 1 mg HS PRN PO ANXIETY, HELP WITH SLEEP Last administered on 08/24/16at 21:08; Admin Dose 1 MG; Start 08/22/16 at 18:30 Vancomycin HCl (Vancocin) 250 ml @ 125 mls/hr Q24H IVPB ; Start 08/26/16 at 16 :00 Bumetanide (Bumex) 2 mg BID@06,14 PO Last administered on 08/26/16 13:36; Admin Dose 2 MG; Start 08/25/16 at 14:00 JARED SALCEDO NP Aug 26, 2016 16:58
[2016-08-26] MEDS: VANCOMYCIN 1 GM in NS 250 ML IVPB SCH (17:13)
[2016-08-26] MEDS: ATORVASTATIN 10 MG TAB PO SCH (20:41)
[2016-08-26] MEDS: DIPHENHYDRAMINE 25 MG CAP PO PRN (20:41)
[2016-08-26] MEDS: INSULIN GLARGINE [LANtus] 3 ML PEN SC SCH (20:48)
[2016-08-26] MEDS ORDERED: CYCLOBENZAPRINE 10 MG TAB PO ONE (21:00)
[2016-08-26] MEDS: LORAZEPAM 1 MG TAB PO PRN (22:16)
[2016-08-26] MEDS: ZOLPIDEM 5 MG TAB PO PRN (22:16)
--- NOTE | 2016-08-26 23:34 | PN ---
Date/Time of Note Date/Time of Note DATE: 08/26/16 TIME: 23:34 Assessment/Plan Lines/Catheters IV Catheter Type (from Nrs): PICC Line Higgins in Place (from Nrs): No Assessment/Plan Problems: (1) Diabetic foot infection Status: Acute (2) Osteomyelitis of left foot (3) Obesity (4) Leg edema, left (5) Leg edema, right (6) Venous insufficiency (chronic) (peripheral) Assessment/Plan Continue daily dressing changes. Continue to monitor Subjective 24 Hr Interval Summary Patient was seen at bedside. Patient is in no acute distress. Patient reports no new adverse events. Patient denies fever, chills, nausea or vomiting. Patient denies pain. Patient denies recent trauma. Patient reports bandages are being changed as directed. Patient does not report any new problems. Constitutional: no complaints Pain Control: well controlled Exam/Review of Systems Vital Signs Vitals Vital Signs Date Time Temp Pulse Resp B/P Pulse Ox O2 Delivery O2 Flow Rate FiO2 09/04/16 16:20 81 09/04/16 16:10 18 94 Nasal Cannula 6.0 09/04/16 15:17 97.9 138/59 09/04/16 15:00 40 Intake and Output 09/03/16 09/03/16 09/04/16 15:00 23:00 07:00 Intake Total 850 ml 240 ml Output Total 800 ml 1200 ml Balance 50 ml -960 ml Exam Free Text/Dictation Patient is laying supine in bed. Patient is morbidly obese in no acute distress. Decrease in erythema and edema of the left foot noted with no open wound.. Patient has osteomyelitis of the left big toe. Extensive edema present in bilateral lower extremities. Patient has a PICC line placed in the right upper arm. Dorsalis pedis and posterior tibial pulses are not palpable secondary to the edema present. Protective sensation remains decreased to sharp , dull, vibratory and temperature stimuli. Labs and x-rays were reviewed. Results Result Diagram: 09/04/16 1040 09/04/16 1046 NORMAN ACOSTA DPM Aug 26, 2016 23:34
[2016-08-27] VITALS (9 sets, daily range): BP systolic 135–138; BP diastolic 70–82; PULSE 74–96; RESP 20–26
[2016-08-27] MEDS: ALBUTEROL/IPRATROPIUM (NEB) 3 ML AMP HHN SCH ×6 (01:16→20:46)
[2016-08-27] MEDS: ACCUCHECK XX SCH (02:17)
[2016-08-27] MEDS: BUMETANIDE 1 MG TAB PO SCH ×2 (06:00→15:29)
[2016-08-27] MEDS: INSULIN ASPART [NOVOLOG] 3 ML PEN SC SCH ×7 (08:11→20:57)
[2016-08-27] MEDS: SODIUM HYPOCHLORITE 0.125% 473 ML BTL IRR SCH (08:12)
[2016-08-27] MEDS: VITAMIN E 400 UNITS CAP PO SCH (08:12)
[2016-08-27] MEDS: FLUOXETINE 20 MG CAP PO SCH (08:12)
[2016-08-27] MEDS: PREGABALIN 25 MG CAP PO SCH ×3 (08:13→21:10)
[2016-08-27] MEDS: CHOLECALCIFEROL 1,000 UNIT TAB PO SCH (08:13)
[2016-08-27] MEDS: ASCORBIC ACID 500 MG TAB PO SCH (08:14)
[2016-08-27] MEDS: FAMOTIDINE 20 MG TAB PO SCH ×2 (08:14→20:56)
[2016-08-27] MEDS: FISH OIL 1,000 MG CAP PO SCH (08:14)
[2016-08-27] MEDS: LACTOBACILLUS CHEW TAB PO SCH ×3 (08:14→20:54)
[2016-08-27] MEDS: PYRIDOXINE 50 MG TAB PO SCH (08:14)
[2016-08-27] MEDS: ASPIRIN (EC) 81 MG TAB PO SCH (08:14)
[2016-08-27] MEDS: FERROUS SULFATE (EC) 325 MG TAB PO SCH ×2 (08:14→20:56)
[2016-08-27] MEDS: METOPROLOL 25 MG TAB PO SCH ×2 (08:15→20:56)
[2016-08-27] MEDS: ALLOPURINOL 100 MG TAB PO SCH (08:15)
[2016-08-27] MEDS: ACETYLCYSTEINE 600 MG CAP PO SCH ×2 (08:20→20:54)
--- NOTE | 2016-08-27 13:12 | CONS ---
Date/Time of Note Date/Time of Note DATE: 08/27/16 TIME: 13:10 Consult Date/Type/Reason Admit Date/Time Aug 13, 2016 at 16:30 Initial Consult Date 08/13/16 Type of Consultation: ID Ordering Provider: KELLEN MEDINA MD Subjective looks and feels more tired, no fevers, nad Objective Vital Signs Date Time Temp Pulse Resp B/P Pulse Ox O2 Delivery O2 Flow Rate FiO2 08/27/16 08:00 Nasal Cannula 5.0 08/27/16 08:00 97.5 95 22 136/82 90 08/27/16 05:48 60 Intake and Output 08/26/16 08/26/16 08/27/16 15:00 23:00 07:00 Intake Total 1350 ml 400 ml Output Total 400 ml 300 ml Balance 950 ml 100 ml Results/Medications Result Diagram: 08/26/16 0450 08/26/16 0450 Results 24 hrs Laboratory Tests Test 08/26/16 17:12 08/26/16 20:38 08/27/16 02:13 08/27/16 08:11 Bedside Glucose 160 193 136 111 Test 08/27/16 11:51 Bedside Glucose 129 Medications Current Medications Acetaminophen (Tylenol Tab) 650 mg Q6H PRN PO PAIN LEVEL 1-3 OR FEVER; Start 08/13/16 at 17:30 Acetaminophen/ Hydrocodone Bitart ([place] (5/325)) 1 tab Q6H PRN PO MODERATE PAIN LEVEL 4-6; Start 08/13/16 at 17:30 Morphine Sulfate (morphine) 2 mg Q4H PRN IV SEVERE PAIN LEVEL 7-10 Last administered on 08/26/16at 16:03; Admin Dose 2 MG; Start 08/13/16 at 17:30 Docusate Sodium (Colace) 100 mg Q12H PRN PO CONSTIPATION; Start 08/13/16 at 17 :30 Famotidine (Pepcid) 20 mg Q12 PO Last administered on 08/27/16at 08:14; Admin Dose 20 MG; Start 08/13/16 at 21:00 Heparin Sodium (Porcine) (Heparin (5000 Units/0.5 ml)) 5,000 unit Q12 SC Last administered on 08/25/16at 21:01; Admin Dose 5,000 UNIT; Start 08/13/16 at 21: 00; Status Future Hold Allopurinol (Zyloprim) 100 mg DAILY PO Last administered on 08/27/16 08:15; Admin Dose 100 MG; Start 08/14/16 at 09:00 Ascorbic Acid (Vitamin C) 500 mg DAILY PO Last administered on 08/27/16 08:14 ; Admin Dose 500 MG; Start 08/13/16 at 18:00 Aspirin (Halfprin) 81 mg DAILY PO Last administered on 08/27/16 08:14; Admin Dose 81 MG; Start 08/14/16 at 09:00 Atorvastatin Calcium (Lipitor) 10 mg QHS PO Last administered on 08/26/16 20: 41; Admin Dose 10 MG; Start 08/13/16 at 21:00 Cholecalciferol (Vitamin D) 1,000 unit DAILY PO Last administered on 08:13; Admin Dose 1,000 UNIT; Start 08/14/16 at 09:00 Ferrous Sulfate (Ferrous Sulfate (Ec)) 325 mg BID PO Last administered on 08/27 08:14; Admin Dose 325 MG; Start 08/13/16 at 21:00 Fish Oil (Fish Oil) 1,000 mg DAILY PO Last administered on 08/27/16 08:14; Admin Dose 1,000 MG; Start 08/14/16 at 09:00 Lactobacillus Acidoph/Bulgaricus (Floranex) 1 tab TID PO Last administered on 08/27/16 11:52; Admin Dose 1 TAB; Start 08/13/16 at 21:00 Metoprolol Tartrate (Lopressor) 12.5 mg BID PO Last administered on 08/27/16 08:15; Admin Dose 12.5 MG; Start 08/13/16 at 21:00 Pregabalin (Lyrica) 50 mg TID PO Last administered on 08/27/16 11:53; Admin Dose 50 MG; Start 08/13/16 at 21:00 Pyridoxine HCl (Vitamin B6) 100 mg DAILY PO Last administered on 08/27/16 08: 14; Admin Dose 100 MG; Start 08/14/16 at 09:00 Simethicone (Mylicon) 80 mg Q6H PRN PO INTESTINAL SPASMS/CRAMPING Last administered on 08/16/16 15:27; Admin Dose 80 MG; Start 08/13/16 at 17:30 Vitamin E (Vitamin E) 400 units DAILY PO Last administered on 08/27/16at 08:12 ; Admin Dose 400 UNITS; Start 08/14/16 at 09:00 Fluoxetine HCl (Prozac) 20 mg DAILY PO Last administered on 08/27/16at 08:12; Admin Dose 20 MG; Start 08/14/16 at 09:00 Miscellaneous Information 1 ea NOTE XX ; Start 08/13/16 at 18:00 Glucose (Glutose) 15 gm Q15M PRN PO DECREASED GLUCOSE; Start 08/13/16 at 18:00 Glucose (Glutose) 22.5 gm Q15M PRN PO DECREASED GLUCOSE; Start 08/13/16 at 18: 00 Dextrose (D50w Syringe) 25 ml Q15M PRN IV DECREASED GLUCOSE; Start 08/13/16 at 18:00 Dextrose (D50w Syringe) 50 ml Q15M PRN IV DECREASED GLUCOSE; Start 08/13/16 at 18:00 Glucagon (Glucagen) 1 mg Q15M PRN IM DECREASED GLUCOSE; Start 08/13/16 at 18: 00 Glucose (Glutose) 15 gm Q15M PRN BUCCAL DECREASED GLUCOSE; Start 08/13/16 at 18:00 Sodium Hypochlorite (Dakin'S (1/4 Strength)) 1 applic DAILY IRR Last administered on 08/27/16at 08:12; Admin Dose 1 APPLIC; Start 08/13/16 at 20:00 Acetaminophen/ Hydrocodone Bitart ([place] (5/325)) 2 tab Q6H PRN PO MODERATE PAIN LEVEL 4-6 Last administered on 08/26/16at 15:16; Admin Dose 2 TAB; Start 08/14/16 at 13:00 IV Flush (NS 10 ml) 10 ml PRN PRN IV IV PTOTOCOL; Start 08/14/16 at 17:00 Acetylcysteine (Nac) 600 mg BID PO Last administered on 08/27/16at 08:20; Admin Dose 600 MG; Start 08/16/16 at 21:00 Ondansetron HCl (Zofran Inj) 4 mg Q4H PRN IV NAUSEA AND/OR VOMITING; Start 08/16/16 at 12:30 Zolpidem Tartrate (Ambien) 10 mg HS PRN PO INSOMNIA Last administered on at 22:16; Admin Dose 10 MG; Start 08/16/16 at 21:00 Lorazepam (Ativan) 1 mg Q6 PRN PO ANXIETY Last administered on 08/25/16 22:08 ; Admin Dose 1 MG; Start 08/18/16 at 14:30 Insulin Glargine (Lantus) 15 unit QHS SC Last administered on 08/26/16 20:48 ; Admin Dose 15 UNIT; Start 08/19/16 at 21:00 Diagnostic Test (Pha) (Accucheck) 1 ea 02 XX Last administered on 08/27/16 02 :17; Admin Dose 1 EA; Start 08/20/16 at 02:00 Phenol (Cepastat Lozenge) 1 lozenge Q1H PRN MT DRY MOUTH Last administered on 08/20/16 21:28; Admin Dose 1 LOZENGE; Start 08/20/16 at 20:30 Lorazepam 1 mg 1 mg HS PRN PO ANXIETY, HELP WITH SLEEP Last administered on 22:16; Admin Dose 1 MG; Start 08/22/16 at 18:30 Vancomycin HCl (Vancocin) 250 ml @ 125 mls/hr Q24H IVPB Last administered on 08/26/16 17:13; Admin Dose 125 MLS/HR; Start 08/26/16 at 16:00 Bumetanide (Bumex) 2 mg BID@06,14 PO Last administered on 08/27/16 06:00; Admin Dose 2 MG; Start 08/25/16 at 14:00 Diphenhydramine HCl (Benadryl) 25 mg Q6H PRN PO ITCHING Last administered on at 20:41; Admin Dose 25 MG; Start 08/26/16 at 20:30 Assessment/Plan Chief Complaint/Hosp Course MICROBIOLOGY: 08/13/16 Bld cx+ KENAN DIAGNOSTICS: MRI revealed cellulitis and osteomyelitis of the left first toe. ANTIMICROBIALS: Vancomycin Urinalysis on admission was negative. PHYSICAL EXAMINATION: GENERAL: Obese, well-developed, middle-aged white man who is sitting in a chair. Patient is in no distress. HEENT: Head atraumatic, normocephalic. Sclerae anicteric. Buccal mucosa dry. NECK: Supple, trachea midline. CHEST: Rise symmetrical. Breath sounds clear, diminished to bases. HEART: S1, S2. ABDOMEN: Soft, bowel tones present. EXTREMITIES: Bilateral Patrick wraps. ASSESSMENT: 1. Bilateral lower extremities acute on chronic cellulitis with chronic venous stasis and left toe osteomyelitis. 2. Systemic inflammatory response syndrome 2 to above. 3. S/p septicemia==>KENAN 4. Questionable pneumonia as per chest x-ray. 5. Morbid obesity. 6. Atrial fibrillation, chronic. 7. Chronic kidney disease. 8. PAD==> s/p angiogram PLAN: More weak, sleepy and tired today, will ad Levaquin for poss PNA, continue Vanco, card/renal/podiatry rec-s [facility] staff Problems: JAMEY VAZQUEZ NP Aug 27, 2016 13:12
[2016-08-27] MEDS ORDERED: LEVOFLOXACIN 500 MG TAB PO ONE (13:30)
[2016-08-27] MEDS: VANCOMYCIN 1 GM in NS 250 ML IVPB SCH (16:24)
[2016-08-27] MEDS: DIPHENHYDRAMINE 25 MG CAP PO PRN (16:40)
--- NOTE | 2016-08-27 16:44 | CONS ---
Date/Time of Note Date/Time of Note DATE: 08/27/16 TIME: 16:44 Assessment/Plan Assessment/Plan Additional Assessment/Plan 10 yo Male with 1) LORNA on CKD 2) Left toe cellulits OM 3) HTN, Chronic 4) Diastolic Heart Failure, Chronic 5) Pulm HTN 6) Anema, Chronic 7) RLL Patchy Consolidation 8) Anasarca Check BMP now. Cont to monitor renal function on increased diuretic Dose Bumex 2mg po bid Cont 1.5L Fluid restriction Daily weights. If patient disharged to Rehab, will follow at ARU.. Consultation Date/Type/Reason Admit Date/Time Aug 13, 2016 at 16:30 Initial Consult Date 08/13/16 Type of Consultation: Nephrology Referring Provider: KELLEN MEDINA MD Exam/Review of Systems Vital Signs Vitals Vital Signs Date Time Temp Pulse Resp B/P Pulse Ox O2 Delivery O2 Flow Rate FiO2 08/27/16 15:37 76 98 60 08/27/16 15:29 26 135/72 Nasal Cannula 6.0 08/27/16 08:00 97.5 Intake and Output 08/26/16 08/26/16 08/27/16 15:00 23:00 07:00 Intake Total 1350 ml 400 ml Output Total 400 ml 300 ml Balance 950 ml 100 ml Exam ENMT: mucosa pink and moist Respiratory: crackles/rales, wheezing Cardiovascular: edema, regular rate and rhythm Gastrointestinal: soft 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: nl mental status, No lethargic Skin: rash or lesions, No diaphoresis Results Result Diagram: 08/26/16 0450 08/26/16 0450 Results 24 hrs Laboratory Tests Test 08/26/16 17:12 08/26/16 20:38 08/27/16 02:13 08/27/16 08:11 Bedside Glucose 160 193 136 111 Test 08/27/16 11:51 Bedside Glucose 129 Medications Medications Current Medications Acetaminophen (Tylenol Tab) 650 mg Q6H PRN PO PAIN LEVEL 1-3 OR FEVER; Start 08/13/16 at 17:30 Acetaminophen/ Hydrocodone Bitart ([place] (5/325)) 1 tab Q6H PRN PO MODERATE PAIN LEVEL 4-6; Start 08/13/16 at 17:30 Morphine Sulfate (morphine) 2 mg Q4H PRN IV SEVERE PAIN LEVEL 7-10 Last administered on 08/26/16 16:03; Admin Dose 2 MG; Start 08/13/16 at 17:30 Docusate Sodium (Colace) 100 mg Q12H PRN PO CONSTIPATION; Start 08/13/16 at 17 :30 Famotidine (Pepcid) 20 mg Q12 PO Last administered on 08/27/16 08:14; Admin Dose 20 MG; Start 08/13/16 at 21:00 Heparin Sodium (Porcine) (Heparin (5000 Units/0.5 ml)) 5,000 unit Q12 SC Last administered on 08/25/16 21:01; Admin Dose 5,000 UNIT; Start 08/13/16 at 21: 00; Status Future Hold Allopurinol (Zyloprim) 100 mg DAILY PO Last administered on 08/27/16 08:15; Admin Dose 100 MG; Start 08/14/16 at 09:00 Ascorbic Acid (Vitamin C) 500 mg DAILY PO Last administered on 08/27/16 08:14 ; Admin Dose 500 MG; Start 08/13/16 at 18:00 Aspirin (Halfprin) 81 mg DAILY PO Last administered on 08/27/16 08:14; Admin Dose 81 MG; Start 08/14/16 at 09:00 Atorvastatin Calcium (Lipitor) 10 mg QHS PO Last administered on 08/26/16 20: 41; Admin Dose 10 MG; Start 08/13/16 at 21:00 Cholecalciferol (Vitamin D) 1,000 unit DAILY PO Last administered on 08:13; Admin Dose 1,000 UNIT; Start 08/14/16 at 09:00 Ferrous Sulfate (Ferrous Sulfate (Ec)) 325 mg BID PO Last administered on 08/27 08:14; Admin Dose 325 MG; Start 08/13/16 at 21:00 Fish Oil (Fish Oil) 1,000 mg DAILY PO Last administered on 08/27/16 08:14; Admin Dose 1,000 MG; Start 08/14/16 at 09:00 Lactobacillus Acidoph/Bulgaricus (Floranex) 1 tab TID PO Last administered on 08/27/16 11:52; Admin Dose 1 TAB; Start 08/13/16 at 21:00 Metoprolol Tartrate (Lopressor) 12.5 mg BID PO Last administered on 08/27/16 08:15; Admin Dose 12.5 MG; Start 08/13/16 at 21:00 Pregabalin (Lyrica) 50 mg TID PO Last administered on 08/27/16at 11:53; Admin Dose 50 MG; Start 08/13/16 at 21:00 Pyridoxine HCl (Vitamin B6) 100 mg DAILY PO Last administered on 08/27/16 08: 14; Admin Dose 100 MG; Start 08/14/16 at 09:00 Simethicone (Mylicon) 80 mg Q6H PRN PO INTESTINAL SPASMS/CRAMPING Last administered on 08/16/16at 15:27; Admin Dose 80 MG; Start 08/13/16 at 17:30 Vitamin E (Vitamin E) 400 units DAILY PO Last administered on 08/27/16 08:12 ; Admin Dose 400 UNITS; Start 08/14/16 at 09:00 Fluoxetine HCl (Prozac) 20 mg DAILY PO Last administered on 08/27/16 08:12; Admin Dose 20 MG; Start 08/14/16 at 09:00 Miscellaneous Information 1 ea NOTE XX ; Start 08/13/16 at 18:00 Glucose (Glutose) 15 gm Q15M PRN PO DECREASED GLUCOSE; Start 08/13/16 at 18:00 Glucose (Glutose) 22.5 gm Q15M PRN PO DECREASED GLUCOSE; Start 08/13/16 at 18: 00 Dextrose (D50w Syringe) 25 ml Q15M PRN IV DECREASED GLUCOSE; Start 08/13/16 at 18:00 Dextrose (D50w Syringe) 50 ml Q15M PRN IV DECREASED GLUCOSE; Start 08/13/16 at 18:00 Glucagon (Glucagen) 1 mg Q15M PRN IM DECREASED GLUCOSE; Start 08/13/16 at 18: 00 Glucose (Glutose) 15 gm Q15M PRN BUCCAL DECREASED GLUCOSE; Start 08/13/16 at 18:00 Sodium Hypochlorite (Dakin'S (1/4 Strength)) 1 applic DAILY IRR Last administered on 08/27/16at 08:12; Admin Dose 1 APPLIC; Start 08/13/16 at 20:00 Acetaminophen/ Hydrocodone Bitart ([place] (5/325)) 2 tab Q6H PRN PO MODERATE PAIN LEVEL 4-6 Last administered on 08/26/16 15:16; Admin Dose 2 TAB; Start 08/14/16 at 13:00 IV Flush (NS 10 ml) 10 ml PRN PRN IV IV PTOTOCOL; Start 08/14/16 at 17:00 Acetylcysteine (Nac) 600 mg BID PO Last administered on 08/27/16at 08:20; Admin Dose 600 MG; Start 08/16/16 at 21:00 Ondansetron HCl (Zofran Inj) 4 mg Q4H PRN IV NAUSEA AND/OR VOMITING; Start 08/16/16 at 12:30 Zolpidem Tartrate (Ambien) 10 mg HS PRN PO INSOMNIA Last administered on 22:16; Admin Dose 10 MG; Start 08/16/16 at 21:00 Lorazepam (Ativan) 1 mg Q6 PRN PO ANXIETY Last administered on 08/25/16at 22:08 ; Admin Dose 1 MG; Start 08/18/16 at 14:30 Insulin Glargine (Lantus) 15 unit QHS SC Last administered on 08/26/16at 20:48 ; Admin Dose 15 UNIT; Start 08/19/16 at 21:00 Diagnostic Test (Pha) (Accucheck) 1 ea 02 XX Last administered on 08/27/16 02 :17; Admin Dose 1 EA; Start 08/20/16 at 02:00 Phenol (Cepastat Lozenge) 1 lozenge Q1H PRN MT DRY MOUTH Last administered on 08/20/16 21:28; Admin Dose 1 LOZENGE; Start 08/20/16 at 20:30 Lorazepam 1 mg 1 mg HS PRN PO ANXIETY, HELP WITH SLEEP Last administered on 08/01at 22:16; Admin Dose 1 MG; Start 08/22/16 at 18:30 Vancomycin HCl (Vancocin) 250 ml @ 125 mls/hr Q24H IVPB Last administered on 08/27/16at 16:24; Admin Dose 125 MLS/HR; Start 08/26/16 at 16:00 Bumetanide (Bumex) 2 mg BID@06,14 PO Last administered on 08/27/16at 15:29; Admin Dose 2 MG; Start 08/25/16 at 14:00 Diphenhydramine HCl (Benadryl) 25 mg Q6H PRN PO ITCHING Last administered on at 16:40; Admin Dose 25 MG; Start 08/26/16 at 20:30 Levofloxacin (Levaquin) 500 mg DAILY@06 PO ; Start 08/28/16 at 06:00 DYAN FRANKLIN MD Aug 27, 2016 16:44
[2016-08-27] MEDS: morphine 2 MG INJ IV PRN (17:37)
[2016-08-27 17:57] LABS: POTASSIUM 4.8 mmol/L (3.5-5.1)
[2016-08-27 17:59] LABS: CREATININE 1.55 mg/dl (0.61-1.24)
[2016-08-27 18:00] LABS: CALCIUM 8.2 mg/dl (8.4-10.2)
--- NOTE | 2016-08-27 19:40 | PN ---
DATE: 08/27/2016 TIME OF EVALUATION: 11:30 SUBJECTIVE DATA: The patient remains on oxygen. Vital signs stable. OBJECTIVE DATA: VITAL SIGNS: Temperature 97.5, pulse rate 72, respiratory rate 22, blood pressure 135/73, oxygen saturation 94% on 5 liters oxygen via nasal cannula. GENERAL: This is a morbidly obese male sitting in a chair in mild respiratory distress with oxygen via nasal cannula. HEENT: Head normocephalic and atraumatic. Eyes: Anicteric sclerae. Conjunctivae clear. ENT: Nasal septum. Oral mucosa is dry. NECK: Supple. RESPIRATORY: Bilaterally diminished breath sounds. Minimal use of accessory muscles of respiration. On supplemental oxygen. CARDIAC: Regular rate and rhythm. ABDOMEN: Soft, nontender, but protuberant. Bowel sounds hypoactive in all 4 quadrants. GENITOURINARY: Deferred. EXTREMITIES: Bilateral lower extremity 2+ edema. LABORATORY DATA AND DIAGNOSTIC DATA: WBC 10.0, hemoglobin 9.5, hematocrit 29.5 , platelet count 286. Sodium 136, potassium 4.8, chloride 96, carbon dioxide 29 , anion gap 13, BUN 66, creatinine 1.55, glucose 190, calcium 8.2. ASSESSMENT AND PLAN: 1. Left great toe osteomyelitis. Continue antibiotics as per infectious disease. Status post evaluation by vascular surgery. 2. Acute on chronic respiratory failure, hypoxic and hypercapnic. Continue noninvasive positive pressure ventilation. Continue inhaled bronchodilators. 3. Pulmonary hypertension. Continue supplemental oxygen. 4. Acute on chronic kidney disease. Renally dose medications. Nephrology following. 5. Congestive heart failure exacerbation. Acute on chronic diastolic dysfunction. Continue diuretics as per nephrology. 6. Type 2 diabetes mellitus. Hemoglobin A1c 5.8. Continue carbohydrate controlled diet. Continue sliding scale insulin. 7. Essential hypertension. Continue antihypertensives. 8. History of atrial fibrillation. Currently in sinus rhythm. 9. Dyslipidemia. Continue statins. 10. Gout. Continue allopurinol. 11. Major depression. Continue selective serotonin reuptake inhibitors. 12. Morbid obesity with BMI of 42.5 kg/meter squared. Weight reduction advised. 13. Fluid, electrolytes, and nutrition. Renal, carbohydrate controlled diet. 14. Deep vein thrombosis prophylaxis. Subcutaneous heparin. 15. Gastrointestinal prophylaxis. Histamine 2 receptor blockers. PLAN: Await ARU evaluation. The patient is medically stable to be discharged to acute rehabilitation unit once a bed is available. Case discussed with Dr. Edmond. GIO LINDO MD, AM/GREGORY Conf#: [id number] DID#: [id number] CC: KELLEN MEDINA MD;*EndCC* MTDD
[2016-08-27] MEDS: ATORVASTATIN 10 MG TAB PO SCH (20:56)
[2016-08-27] MEDS: INSULIN GLARGINE [LANtus] 3 ML PEN SC SCH (21:06)
[2016-08-27] MEDS: ZOLPIDEM 5 MG TAB PO PRN (22:02)
[2016-08-27] MEDS: LORAZEPAM 1 MG TAB PO PRN (22:09)
[2016-08-28 02:00] VITALS: PULSE 77
[2016-08-28] MEDS: ALBUTEROL/IPRATROPIUM (NEB) 3 ML AMP HHN SCH ×6 (02:01→21:04)
[2016-08-28] MEDS: ACCUCHECK XX SCH (02:02)
[2016-08-28 05:30] VITALS: PULSE 72
[2016-08-28] MEDS: BUMETANIDE 1 MG TAB PO SCH ×2 (06:18→13:11)
[2016-08-28] MEDS: LEVOFLOXACIN 500 MG TAB PO SCH (06:19)
[2016-08-28] MEDS: INSULIN ASPART [NOVOLOG] 3 ML PEN SC SCH ×7 (07:53→21:25)
[2016-08-28 08:00] VITALS: BP 120/63; PULSE 90; RESP 22
[2016-08-28] MEDS: METOPROLOL 25 MG TAB PO SCH ×2 (08:44→21:22)
[2016-08-28] MEDS: FISH OIL 1,000 MG CAP PO SCH (08:45)
[2016-08-28] MEDS: ASCORBIC ACID 500 MG TAB PO SCH (08:45)
[2016-08-28] MEDS: FLUOXETINE 20 MG CAP PO SCH (08:45)
[2016-08-28] MEDS: PYRIDOXINE 50 MG TAB PO SCH (08:45)
[2016-08-28] MEDS: LACTOBACILLUS CHEW TAB PO SCH ×3 (08:45→21:21)
[2016-08-28] MEDS: ASPIRIN (EC) 81 MG TAB PO SCH (08:46)
[2016-08-28] MEDS: ALLOPURINOL 100 MG TAB PO SCH (08:46)
[2016-08-28] MEDS: PREGABALIN 25 MG CAP PO SCH ×3 (08:46→21:21)
[2016-08-28] MEDS: FAMOTIDINE 20 MG TAB PO SCH ×2 (08:46→21:21)
[2016-08-28] MEDS: FERROUS SULFATE (EC) 325 MG TAB PO SCH ×2 (08:46→21:21)
[2016-08-28] MEDS: CHOLECALCIFEROL 1,000 UNIT TAB PO SCH (08:46)
--- NOTE | 2016-08-28 08:46 | CONS ---
Date/Time of Note Date/Time of Note DATE: 08/28/16 TIME: 08:42 Assessment/Plan Assessment/Plan Additional Assessment/Plan 60 yo Male with 1) LORNA on CKD 2) Left toe cellulits OM 3) HTN, Chronic 4) Diastolic Heart Failure, Chronic 5) Pulm HTN 6) Anema, Chronic 7) RLL Patchy Consolidation 8) Anasarca Renal function stable. Cont to monitor renal function on increased diuretic Dose Bumex 2mg po bid Will send, Urine studies today Cont 1.5L Fluid restriction Daily weights. If patient disharged to Rehab, will follow at ARU.. Consultation Date/Type/Reason Admit Date/Time Aug 13, 2016 at 16:30 Initial Consult Date 08/13/16 Type of Consultation: Nephrology Referring Provider: KELLEN MEDINA MD 24 HR Interval Summary Constitutional: requiring O2 Exam/Review of Systems Vital Signs Vitals Vital Signs Date Time Temp Pulse Resp B/P Pulse Ox O2 Delivery O2 Flow Rate FiO2 08/28/16 05:30 72 92 50 08/27/16 22:20 6.0 08/27/16 20:46 20 Nasal Cannula 08/27/16 20:00 97.9 138/70 Intake and Output 08/27/16 08/27/16 08/28/16 15:00 23:00 07:00 Intake Total 1050 ml Output Total 1200 ml Balance -150 ml Exam Constitutional: alert ENMT: mucosa pink and moist Respiratory: crackles/rales, diminished breath sounds Cardiovascular: edema, regular rate and rhythm Gastrointestinal: distended, soft 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: BEEF TAGGER 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, No lethargic Skin: rash or lesions, No diaphoresis Results Result Diagram: 08/26/16 0450 08/27/16 1736 Results 24 hrs Laboratory Tests Test 08/27/16 11:51 08/27/16 17:11 08/27/16 17:36 08/27/16 20:52 Bedside Glucose 129 180 205 Anion Gap 13 Blood Urea Nitrogen 66 H Calcium Level 8.2 L Carbon Dioxide Level 29 Chloride Level 96 L Creatinine 1.55 H Glucose Level 190 Potassium Level 4.8 Sodium Level 133 L Test 08/28/16 02:00 08/28/16 07:52 Bedside Glucose 115 92 Medications Medications Current Medications Acetaminophen (Tylenol Tab) 650 mg Q6H PRN PO PAIN LEVEL 1-3 OR FEVER; Start 11/28/16 at 17:30 Acetaminophen/ Hydrocodone Bitart ([place] (5/325)) 1 tab Q6H PRN PO MODERATE PAIN LEVEL 4-6; Start 08/13/16 at 17:30 Morphine Sulfate (morphine) 2 mg Q4H PRN IV SEVERE PAIN LEVEL 7-10 Last administered on 08/27/16at 17:37; Admin Dose 2 MG; Start 08/13/16 at 17:30 Docusate Sodium (Colace) 100 mg Q12H PRN PO CONSTIPATION; Start 08/13/16 at 17 :30 Famotidine (Pepcid) 20 mg Q12 PO Last administered on 08/27/16 20:56; Admin Dose 20 MG; Start 08/13/16 at 21:00 Heparin Sodium (Porcine) (Heparin (5000 Units/0.5 ml)) 5,000 unit Q12 SC Last administered on 08/25/16 21:01; Admin Dose 5,000 UNIT; Start 08/13/16 at 21: 00; Status Future Hold Allopurinol (Zyloprim) 100 mg DAILY PO Last administered on 08/27/16 08:15; Admin Dose 100 MG; Start 08/14/16 at 09:00 Ascorbic Acid (Vitamin C) 500 mg DAILY PO Last administered on 08/27/16 08:14 ; Admin Dose 500 MG; Start 08/13/16 at 18:00 Aspirin (Halfprin) 81 mg DAILY PO Last administered on 08/27/16 08:14; Admin Dose 81 MG; Start 08/14/16 at 09:00 Atorvastatin Calcium (Lipitor) 10 mg QHS PO Last administered on 08/27/16 20: 56; Admin Dose 10 MG; Start 08/13/16 at 21:00 Cholecalciferol (Vitamin D) 1,000 unit DAILY PO Last administered on 08:13; Admin Dose 1,000 UNIT; Start 08/14/16 at 09:00 Ferrous Sulfate (Ferrous Sulfate (Ec)) 325 mg BID PO Last administered on 08/27 20:56; Admin Dose 325 MG; Start 08/13/16 at 21:00 Fish Oil (Fish Oil) 1,000 mg DAILY PO Last administered on 08/27/16 08:14; Admin Dose 1,000 MG; Start 08/14/16 at 09:00 Lactobacillus Acidoph/Bulgaricus (Floranex) 1 tab TID PO Last administered on 08/27/16at 20:54; Admin Dose 1 TAB; Start 08/13/16 at 21:00 Metoprolol Tartrate (Lopressor) 12.5 mg BID PO Last administered on 08/27/16at 20:56; Admin Dose 12.5 MG; Start 08/13/16 at 21:00 Pregabalin (Lyrica) 50 mg TID PO Last administered on 08/27/16at 21:10; Admin Dose 50 MG; Start 08/13/16 at 21:00 Pyridoxine HCl (Vitamin B6) 100 mg DAILY PO Last administered on 08/27/16at 08: 14; Admin Dose 100 MG; Start 08/14/16 at 09:00 Simethicone (Mylicon) 80 mg Q6H PRN PO INTESTINAL SPASMS/CRAMPING Last administered on 08/16/16at 15:27; Admin Dose 80 MG; Start 08/13/16 at 17:30 Vitamin E (Vitamin E) 400 units DAILY PO Last administered on 08/27/16at 08:12 ; Admin Dose 400 UNITS; Start 08/14/16 at 09:00 Fluoxetine HCl (Prozac) 20 mg DAILY PO Last administered on 08/27/16at 08:12; Admin Dose 20 MG; Start 08/14/16 at 09:00 Miscellaneous Information 1 ea NOTE XX ; Start 08/13/16 at 18:00 Glucose (Glutose) 15 gm Q15M PRN PO DECREASED GLUCOSE; Start 08/13/16 at 18:00 Glucose (Glutose) 22.5 gm Q15M PRN PO DECREASED GLUCOSE; Start 08/13/16 at 18: 00 Dextrose (D50w Syringe) 25 ml Q15M PRN IV DECREASED GLUCOSE; Start 08/13/16 at 18:00 Dextrose (D50w Syringe) 50 ml Q15M PRN IV DECREASED GLUCOSE; Start 08/13/16 at 18:00 Glucagon (Glucagen) 1 mg Q15M PRN IM DECREASED GLUCOSE; Start 08/13/16 at 18: 00 Glucose (Glutose) 15 gm Q15M PRN BUCCAL DECREASED GLUCOSE; Start 08/13/16 at 18:00 Sodium Hypochlorite (Dakin'S (1/4 Strength)) 1 applic DAILY IRR Last administered on 08/27/16 08:12; Admin Dose 1 APPLIC; Start 08/13/16 at 20:00 Acetaminophen/ Hydrocodone Bitart ([place] (5/325)) 2 tab Q6H PRN PO MODERATE PAIN LEVEL 4-6 Last administered on 08/26/16 15:16; Admin Dose 2 TAB; Start 08/14/16 at 13:00 IV Flush (NS 10 ml) 10 ml PRN PRN IV IV PTOTOCOL; Start 08/14/16 at 17:00 Acetylcysteine (Nac) 600 mg BID PO Last administered on 08/27/16 20:54; Admin Dose 600 MG; Start 08/16/16 at 21:00 Ondansetron HCl (Zofran Inj) 4 mg Q4H PRN IV NAUSEA AND/OR VOMITING; Start 08/16/16 at 12:30 Zolpidem Tartrate (Ambien) 10 mg HS PRN PO INSOMNIA Last administered on 22:02; Admin Dose 10 MG; Start 08/16/16 at 21:00 Lorazepam (Ativan) 1 mg Q6 PRN PO ANXIETY Last administered on 08/25/16 22:08 ; Admin Dose 1 MG; Start 08/18/16 at 14:30 Insulin Glargine (Lantus) 15 unit QHS SC Last administered on 08/27/16 21:06 ; Admin Dose 15 UNIT; Start 08/19/16 at 21:00 Diagnostic Test (Pha) (Accucheck) 1 ea 02 XX Last administered on 08/28/16 02 :02; Admin Dose 1 EA; Start 08/20/16 at 02:00 Phenol (Cepastat Lozenge) 1 lozenge Q1H PRN MT DRY MOUTH Last administered on 08/20/16 21:28; Admin Dose 1 LOZENGE; Start 08/20/16 at 20:30 Lorazepam 1 mg 1 mg HS PRN PO ANXIETY, HELP WITH SLEEP Last administered on 22:09; Admin Dose 1 MG; Start 08/22/16 at 18:30 Vancomycin HCl (Vancocin) 250 ml @ 125 mls/hr Q24H IVPB Last administered on 08/27/16 16:24; Admin Dose 125 MLS/HR; Start 08/26/16 at 16:00 Bumetanide (Bumex) 2 mg BID@06,14 PO Last administered on 08/28/16at 06:18; Admin Dose 2 MG; Start 08/25/16 at 14:00 Diphenhydramine HCl (Benadryl) 25 mg Q6H PRN PO ITCHING Last administered on at 16:40; Admin Dose 25 MG; Start 08/26/16 at 20:30 Levofloxacin (Levaquin) 500 mg DAILY@06 PO Last administered on 08/28/16at 06: 19; Admin Dose 500 MG; Start 08/28/16 at 06:00 DYAN FRANKLIN MD Aug 28, 2016 08:46
[2016-08-28] MEDS: DIPHENHYDRAMINE 25 MG CAP PO PRN ×2 (08:47→16:17)
[2016-08-28] MEDS: ACETYLCYSTEINE 600 MG CAP PO SCH ×2 (08:47→21:21)
[2016-08-28] MEDS: VITAMIN E 400 UNITS CAP PO SCH (08:47)
[2016-08-28] MEDS: SODIUM HYPOCHLORITE 0.125% 473 ML BTL IRR SCH (08:48)
[2016-08-28 10:09] LABS: BASOPHILS % 0.6 % (0.0-2.0); EOSINOPHILS # 0.5 10^3/ul (0.0-0.5); EOSINOPHILS % 6.3 % (0.0-7.0); HEMATOCRIT 28.4 % (42.0-52.0); HEMOGLOBIN 9.1 g/dl (14.0-18.0); LYMPHOCYTES # 0.5 10^3/ul (0.8-2.9); LYMPHOCYTES % 6.3 % (15.0-51.0); MEAN CORPUSCULAR HEMOGLOBIN 25.1 pg (29.0-33.0); MEAN CORPUSCULAR VOLUME 78.5 fl (82.0-101.0); MEAN PLATELET VOLUME 7.9 fl (7.4-10.4); MONOCYTE # 0.5 10^3/ul (0.3-0.9); MONOCYTES % 6.6 % (0.0-11.0); NEUTROPHIL # 6.4 10^3/ul (1.6-7.5); NEUTROPHILS % 80.2 % (39.0-77.0); PLATELET COUNT 260 10^3/UL (140-440); RED BLOOD COUNT 3.62 10^6/ul (4.70-6.10); RED CELL DISTRIBUTION WIDTH 21.9 % (11.5-14.5)
[2016-08-28 10:16] LABS: CONDITION 1; LH ANALYZER COMMENTS 1
[2016-08-28 10:31] LABS: POTASSIUM 4.8 mmol/L (3.5-5.1)
[2016-08-28 10:32] LABS: PHOSPHORUS 5.3 mg/dl (2.5-4.9)
[2016-08-28 10:35] LABS: CALCIUM 7.8 mg/dl (8.4-10.2)
[2016-08-28 11:02] LABS: CREATININE 1.37 mg/dl (0.61-1.24)
[2016-08-28 12:04] LABS: ADD UMIC YES; URINE BILIRUBIN (Dip) NEGATIVE (NEGATIVE); URINE BLOOD (Dip) NEGATIVE (NEGATIVE); URINE COLOR LT. YELLOW (YELLOW); URINE GLUCOSE (Dip) NEGATIVE (NEGATIVE); URINE KETONES (Dip) NEGATIVE (NEGATIVE); URINE LEUKOCYTE ESTERASE (Dip) NEGATIVE (NEGATIVE); URINE NITRITE (Dip) NEGATIVE (NEGATIVE); URINE TOTAL PROTEIN (Dip) 1+ (NEGATIVE); URINE UROBILINOGEN (Dip) 0.2 E.U./dL (0.1-1.0)
[2016-08-28 12:11] LABS: BACTERIA,URINE RARE; URINE RBCS 0-2 /HPF (0)
[2016-08-28] MEDS: HYDROCODONE/APAP (5/325) TAB PO PRN (13:38)
--- NOTE | 2016-08-28 13:57 | CONS ---
Date/Time of Note Date/Time of Note DATE: 08/28/16 TIME: 13:56 Consult Date/Type/Reason Admit Date/Time Aug 13, 2016 at 16:30 Initial Consult Date 08/13/16 Type of Consultation: ID Ordering Provider: KELLEN MEDINA MD Subjective alert, feels better, no fevers, nad Objective Vital Signs Date Time Temp Pulse Resp B/P Pulse Ox O2 Delivery O2 Flow Rate FiO2 08/28/16 13:01 73 18 95 Nasal Cannula 6.0 08/28/16 08:00 98.2 120/63 08/28/16 05:30 50 Intake and Output 08/27/16 08/27/16 08/28/16 15:00 23:00 07:00 Intake Total 1050 ml Output Total 1200 ml Balance -150 ml Results/Medications Result Diagram: 08/28/16 0930 08/28/16 0930 Results 24 hrs Laboratory Tests Test 08/27/16 17:11 08/27/16 17:36 08/27/16 20:52 08/28/16 02:00 Bedside Glucose 180 205 115 Anion Gap 13 Blood Urea Nitrogen 66 H Calcium Level 8.2 L Carbon Dioxide Level 29 Chloride Level 96 L Creatinine 1.55 H Glucose Level 190 Potassium Level 4.8 Sodium Level 133 L Test 08/28/16 07:52 08/28/16 09:30 08/28/16 10:30 08/28/16 11:45 Bedside Glucose 92 137 Anion Gap 15 Basophils # 0.0 Basophils % 0.6 Blood Morphology Comment Blood Urea Nitrogen 69 H Calcium Level 7.8 L Carbon Dioxide Level 27 Chloride Level 97 Creatinine 1.37 H Eosinophils # 0.5 Eosinophils % 6.3 Glucose Level 151 Hematocrit 28.4 L Hemoglobin 9.1 L Lymphocytes # 0.5 L Lymphocytes % 6.3 L Magnesium Level 2.0 Mean Corpuscular Hemoglobin 25.1 L Mean Corpuscular Hemoglobin Concent 32.0 Mean Corpuscular Volume 78.5 L Mean Platelet Volume 7.9 Monocytes # 0.5 Monocytes % 6.6 Neutrophils # 6.4 Neutrophils % 80.2 H Nucleated Red Blood Cells # 0.0 Nucleated Red Blood Cells % 0.0 Phosphorus Level 5.3 H Platelet Count 260 Potassium Level 4.8 Red Blood Count 3.62 L Red Cell Distribution Width 21.9 H Sodium Level 134 L White Blood Count 8.0 Urine Bacteria RARE Urine Bilirubin NEGATIVE Urine Clarity CLEAR Urine Coarse Granular Casts FEW Urine Color LT. YELLOW Urine Eosinophils % 0.0 Urine Epithelial Cells OCCASIONAL Urine Glucose NEGATIVE Urine Hemoglobin NEGATIVE Urine Ketones NEGATIVE Urine Leukocyte Esterase NEGATIVE Urine Microscopic RBC 0-2 Urine Microscopic WBC 0-2 Urine Nitrite NEGATIVE Urine Random Creatinine 47.11 Urine Random Urea Nitrogen 372 Urine Specific [place] 1.020 Urine Total Protein 1+ H Urine Urobilinogen 0.2 E.U./dL Urine pH 5.0 Medications Current Medications Acetaminophen (Tylenol Tab) 650 mg Q6H PRN PO PAIN LEVEL 1-3 OR FEVER; Start 08/13/16 at 17:30 Acetaminophen/ Hydrocodone Bitart ([place] (5/325)) 1 tab Q6H PRN PO MODERATE PAIN LEVEL 4-6; Start 08/13/16 at 17:30 Morphine Sulfate (morphine) 2 mg Q4H PRN IV SEVERE PAIN LEVEL 7-10 Last administered on 08/27/16at 17:37; Admin Dose 2 MG; Start 08/13/16 at 17:30 Docusate Sodium (Colace) 100 mg Q12H PRN PO CONSTIPATION; Start 08/13/16 at 17 :30 Famotidine (Pepcid) 20 mg Q12 PO Last administered on 08/28/16at 08:46; Admin Dose 20 MG; Start 08/13/16 at 21:00 Heparin Sodium (Porcine) (Heparin (5000 Units/0.5 ml)) 5,000 unit Q12 SC Last administered on 08/25/16at 21:01; Admin Dose 5,000 UNIT; Start 08/13/16 at 21: 00; Status Future Hold Allopurinol (Zyloprim) 100 mg DAILY PO Last administered on 08/28/16at 08:46; Admin Dose 100 MG; Start 08/14/16 at 09:00 Ascorbic Acid (Vitamin C) 500 mg DAILY PO Last administered on 08/28/16at 08:45 ; Admin Dose 500 MG; Start 08/13/16 at 18:00 Aspirin (Halfprin) 81 mg DAILY PO Last administered on 08/28/16 08:46; Admin Dose 81 MG; Start 08/14/16 at 09:00 Atorvastatin Calcium (Lipitor) 10 mg QHS PO Last administered on 08/27/16at 20: 56; Admin Dose 10 MG; Start 08/13/16 at 21:00 Cholecalciferol (Vitamin D) 1,000 unit DAILY PO Last administered on 08:46; Admin Dose 1,000 UNIT; Start 08/14/16 at 09:00 Ferrous Sulfate (Ferrous Sulfate (Ec)) 325 mg BID PO Last administered on 08/28 08:46; Admin Dose 325 MG; Start 08/13/16 at 21:00 Fish Oil (Fish Oil) 1,000 mg DAILY PO Last administered on 08/28/16 08:45; Admin Dose 1,000 MG; Start 08/14/16 at 09:00 Lactobacillus Acidoph/Bulgaricus (Floranex) 1 tab TID PO Last administered on 08/28/16 13:10; Admin Dose 1 TAB; Start 08/13/16 at 21:00 Metoprolol Tartrate (Lopressor) 12.5 mg BID PO Last administered on 08/28/16 08:44; Admin Dose 12.5 MG; Start 08/13/16 at 21:00 Pregabalin (Lyrica) 50 mg TID PO Last administered on 08/28/16 13:10; Admin Dose 50 MG; Start 08/13/16 at 21:00 Pyridoxine HCl (Vitamin B6) 100 mg DAILY PO Last administered on 08/28/16 08: 45; Admin Dose 100 MG; Start 08/14/16 at 09:00 Simethicone (Mylicon) 80 mg Q6H PRN PO INTESTINAL SPASMS/CRAMPING Last administered on 08/16/16at 15:27; Admin Dose 80 MG; Start 08/13/16 at 17:30 Vitamin E (Vitamin E) 400 units DAILY PO Last administered on 08/28/16 08:47 ; Admin Dose 400 UNITS; Start 08/14/16 at 09:00 Fluoxetine HCl (Prozac) 20 mg DAILY PO Last administered on 08/28/16 08:45; Admin Dose 20 MG; Start 08/14/16 at 09:00 Miscellaneous Information 1 ea NOTE XX ; Start 08/13/16 at 18:00 Glucose (Glutose) 15 gm Q15M PRN PO DECREASED GLUCOSE; Start 08/13/16 at 18:00 Glucose (Glutose) 22.5 gm Q15M PRN PO DECREASED GLUCOSE; Start 08/13/16 at 18: 00 Dextrose (D50w Syringe) 25 ml Q15M PRN IV DECREASED GLUCOSE; Start 08/13/16 at 18:00 Dextrose (D50w Syringe) 50 ml Q15M PRN IV DECREASED GLUCOSE; Start 08/13/16 at 18:00 Glucagon (Glucagen) 1 mg Q15M PRN IM DECREASED GLUCOSE; Start 08/13/16 at 18: 00 Glucose (Glutose) 15 gm Q15M PRN BUCCAL DECREASED GLUCOSE; Start 08/13/16 at 18:00 Sodium Hypochlorite (Dakin'S (1/4 Strength)) 1 applic DAILY IRR Last administered on 08/28/16at 08:48; Admin Dose 1 APPLIC; Start 08/13/16 at 20:00 Acetaminophen/ Hydrocodone Bitart ([place] (5/325)) 2 tab Q6H PRN PO MODERATE PAIN LEVEL 4-6 Last administered on 08/28/16at 13:38; Admin Dose 2 TAB; Start 08/14/16 at 13:00 IV Flush (NS 10 ml) 10 ml PRN PRN IV IV PTOTOCOL; Start 08/14/16 at 17:00 Acetylcysteine (Nac) 600 mg BID PO Last administered on 08/28/16at 08:47; Admin Dose 600 MG; Start 08/16/16 at 21:00 Ondansetron HCl (Zofran Inj) 4 mg Q4H PRN IV NAUSEA AND/OR VOMITING; Start 08/16/16 at 12:30 Zolpidem Tartrate (Ambien) 10 mg HS PRN PO INSOMNIA Last administered on at 22:02; Admin Dose 10 MG; Start 08/16/16 at 21:00 Lorazepam (Ativan) 1 mg Q6 PRN PO ANXIETY Last administered on 08/25/16at 22:08 ; Admin Dose 1 MG; Start 08/18/16 at 14:30 Insulin Glargine (Lantus) 15 unit QHS SC Last administered on 08/27/16at 21:06 ; Admin Dose 15 UNIT; Start 08/19/16 at 21:00 Diagnostic Test (Pha) (Accucheck) 1 ea 02 XX Last administered on 08/28/16at 02 :02; Admin Dose 1 EA; Start 08/20/16 at 02:00 Phenol (Cepastat Lozenge) 1 lozenge Q1H PRN MT DRY MOUTH Last administered on 08/20/16at 21:28; Admin Dose 1 LOZENGE; Start 08/20/16 at 20:30 Lorazepam 1 mg 1 mg HS PRN PO ANXIETY, HELP WITH SLEEP Last administered on 08/31at 22:09; Admin Dose 1 MG; Start 08/22/16 at 18:30 Vancomycin HCl (Vancocin) 250 ml @ 125 mls/hr Q24H IVPB Last administered on 08/27/16at 16:24; Admin Dose 125 MLS/HR; Start 08/26/16 at 16:00 Bumetanide (Bumex) 2 mg BID@06,14 PO Last administered on 08/28/16at 13:11; Admin Dose 2 MG; Start 08/25/16 at 14:00 Diphenhydramine HCl (Benadryl) 25 mg Q6H PRN PO ITCHING Last administered on at 08:47; Admin Dose 25 MG; Start 08/26/16 at 20:30 Levofloxacin (Levaquin) 500 mg DAILY@06 PO Last administered on 08/28/16at 06: 19; Admin Dose 500 MG; Start 08/28/16 at 06:00 Miscellaneous Information (*Rx Drug Level Order Reminder*) 1 ONCE ONCE XX ; Start 08/29/16 at 15:00; Stop 08/29/16 at 15:01 Assessment/Plan Chief Complaint/Hosp Course MICROBIOLOGY: 08/13/16 Bld cx+ [facility] DIAGNOSTICS: MRI revealed cellulitis and osteomyelitis of the left first toe. ANTIMICROBIALS: Vancomycin Levaquin Urinalysis on admission was negative. PHYSICAL EXAMINATION: GENERAL: Obese, well-developed, middle-aged white man who is sitting in a chair. Patient is in no distress. HEENT: Head atraumatic, normocephalic. Sclerae anicteric. Buccal mucosa dry. NECK: Supple, trachea midline. CHEST: Rise symmetrical. Breath sounds clear, diminished to bases. HEART: S1, S2. ABDOMEN: Soft, bowel tones present. EXTREMITIES: Bilateral Patrick wraps. ASSESSMENT: 1. Bilateral lower extremities acute on chronic cellulitis with chronic venous stasis and left toe osteomyelitis. 2. Systemic inflammatory response syndrome 2 to above. 3. S/p septicemia==>KENAN 4. Questionable pneumonia as per chest x-ray. 5. Morbid obesity. 6. Atrial fibrillation, chronic. 7. Chronic kidney disease. 8. PAD==> s/p angiogram PLAN: Stable, continue abx, card/renal/podiatry rec-s [facility] staff Problems: JAMEY VAZQUEZ NP Aug 28, 2016 13:57
--- NOTE | 2016-08-28 15:31 | PN ---
Date/Time of Note Date/Time of Note DATE: 08/28/16 TIME: 15:30 Assessment/Plan VTE Prophylaxis VTE Prophylaxis Intervention: heparin Lines/Catheters IV Catheter Type (from [facility] PICC Line Central line still needed: Yes Urinary Cath still in place: No Assessment/Plan Chief Complaint/Hosp Course 1. Left great toe osteomyelitis. Continue antibiotics as per infectious disease. Status post evaluation by vascular surgery. 2. Acute on chronic respiratory failure, hypoxic and hypercapnic. Continue noninvasive positive pressure ventilation. Continue inhaled bronchodilators. 3. Pulmonary hypertension. Continue supplemental oxygen. 4. Acute on chronic kidney disease. Renally dose medications. Nephrology following. 5. Congestive heart failure exacerbation. Acute on chronic diastolic dysfunction. Continue diuretics as per nephrology. 6. Type 2 diabetes mellitus. Hemoglobin A1c 5.8. Continue carbohydrate controlled diet. Continue sliding scale insulin. 7. Essential hypertension. Continue antihypertensives. 8. History of atrial fibrillation. Currently in sinus rhythm. 9. Dyslipidemia. Continue statins. 10. Gout. Continue allopurinol. 11. Major depression. Continue selective serotonin reuptake inhibitors. 12. Morbid obesity with BMI of 42.5 kg/meter squared. Weight reduction advised. 13. Fluid, electrolytes, and nutrition. Renal, carbohydrate controlled diet. 14. Deep vein thrombosis prophylaxis. Subcutaneous heparin. 15. Gastrointestinal prophylaxis. Histamine 2 blockers. PLAN: Await ARU evaluation. The patient is medically stable to be discharged to acute rehabilitation unit once a bed is available. Case discussed with Dr. Pruitt. Problems: Subjective 24 Hr Interval Summary Free Text/Dictation Patient remains afebrile. Exam/Review of Systems Vital Signs Vitals Vital Signs Date Time Temp Pulse Resp B/P Pulse Ox O2 Delivery O2 Flow Rate FiO2 08/28/16 13:01 73 18 95 Nasal Cannula 6.0 08/28/16 08:00 98.2 120/63 08/28/16 05:30 50 Intake and Output 08/27/16 08/27/16 08/28/16 14:59 22:59 06:59 Intake Total 1050 ml Output Total 1200 ml Balance -150 ml Exam GENERAL: This is a morbidly obese male sitting in a chair in mild respiratory distress with oxygen via nasal cannula. HEENT: Head normocephalic and atraumatic. Eyes: Anicteric sclerae. Conjunctivae clear. ENT: Nasal septum. Oral mucosa is dry. NECK: Supple. RESPIRATORY: Bilaterally diminished breath sounds. Minimal use of accessory muscles of respiration. On supplemental oxygen. CARDIAC: Regular rate and rhythm. ABDOMEN: Soft, nontender, but protuberant. Bowel sounds hypoactive in all 4 quadrants. GENITOURINARY: Deferred. EXTREMITIES: Bilateral lower extremity 2+ edema. SKIN: maculopapular rashes on B/L upper extremities. NEUROLOGIC: The patient is awake, alert, and oriented. Moves all four extremities. Results Result Diagram: 08/28/16 0930 08/28/16 0930 Results 24 hrs Laboratory Tests Test 08/27/16 17:11 08/27/16 17:36 08/27/16 20:52 08/28/16 02:00 Bedside Glucose 180 205 115 Anion Gap 13 Blood Urea Nitrogen 66 H Calcium Level 8.2 L Carbon Dioxide Level 29 Chloride Level 96 L Creatinine 1.55 H Glucose Level 190 Potassium Level 4.8 Sodium Level 133 L Test 08/28/16 07:52 08/28/16 09:30 08/28/16 10:30 08/28/16 11:45 Bedside Glucose 92 137 Anion Gap 15 Basophils # 0.0 Basophils % 0.6 Blood Morphology Comment Blood Urea Nitrogen 69 H Calcium Level 7.8 L Carbon Dioxide Level 27 Chloride Level 97 Creatinine 1.37 H Eosinophils # 0.5 Eosinophils % 6.3 Glucose Level 151 Hematocrit 28.4 L Hemoglobin 9.1 L Lymphocytes # 0.5 L Lymphocytes % 6.3 L Magnesium Level 2.0 Mean Corpuscular Hemoglobin 25.1 L Mean Corpuscular Hemoglobin Concent 32.0 Mean Corpuscular Volume 78.5 L Mean Platelet Volume 7.9 Monocytes # 0.5 Monocytes % 6.6 Neutrophils # 6.4 Neutrophils % 80.2 H Nucleated Red Blood Cells # 0.0 Nucleated Red Blood Cells % 0.0 Phosphorus Level 5.3 H Platelet Count 260 Potassium Level 4.8 Red Blood Count 3.62 L Red Cell Distribution Width 21.9 H Sodium Level 134 L White Blood Count 8.0 Urine Bacteria RARE Urine Bilirubin NEGATIVE Urine Clarity CLEAR Urine Coarse Granular Casts FEW Urine Color LT. YELLOW Urine Eosinophils % 0.0 Urine Epithelial Cells OCCASIONAL Urine Glucose NEGATIVE Urine Hemoglobin NEGATIVE Urine Ketones NEGATIVE Urine Leukocyte Esterase NEGATIVE Urine Microscopic RBC 0-2 Urine Microscopic WBC 0-2 Urine Nitrite NEGATIVE Urine Random Creatinine 47.11 Urine Random Urea Nitrogen 372 Urine Specific [place] 1.020 Urine Total Protein 1+ H Urine Urobilinogen 0.2 E.U./dL Urine pH 5.0 Medications Medications Current Medications Acetaminophen (Tylenol Tab) 650 mg Q6H PRN PO PAIN LEVEL 1-3 OR FEVER; Start 08/13/16 at 17:30 Acetaminophen/ Hydrocodone Bitart ([place] (5/325)) 1 tab Q6H PRN PO MODERATE PAIN LEVEL 4-6; Start 08/13/16 at 17:30 Morphine Sulfate (morphine) 2 mg Q4H PRN IV SEVERE PAIN LEVEL 7-10 Last administered on 08/27/16 17:37; Admin Dose 2 MG; Start 08/13/16 at 17:30 Docusate Sodium (Colace) 100 mg Q12H PRN PO CONSTIPATION; Start 08/13/16 at 17 :30 Famotidine (Pepcid) 20 mg Q12 PO Last administered on 08/28/16 08:46; Admin Dose 20 MG; Start 08/13/16 at 21:00 Heparin Sodium (Porcine) (Heparin (5000 Units/0.5 ml)) 5,000 unit Q12 SC Last administered on 08/25/16 21:01; Admin Dose 5,000 UNIT; Start 08/13/16 at 21: 00; Status Future Hold Allopurinol (Zyloprim) 100 mg DAILY PO Last administered on 08/28/16 08:46; Admin Dose 100 MG; Start 08/14/16 at 09:00 Ascorbic Acid (Vitamin C) 500 mg DAILY PO Last administered on 08/28/16 08:45 ; Admin Dose 500 MG; Start 08/13/16 at 18:00 Aspirin (Halfprin) 81 mg DAILY PO Last administered on 08/28/16 08:46; Admin Dose 81 MG; Start 08/14/16 at 09:00 Atorvastatin Calcium (Lipitor) 10 mg QHS PO Last administered on 08/27/16 20: 56; Admin Dose 10 MG; Start 08/13/16 at 21:00 Cholecalciferol (Vitamin D) 1,000 unit DAILY PO Last administered on 08:46; Admin Dose 1,000 UNIT; Start 08/14/16 at 09:00 Ferrous Sulfate (Ferrous Sulfate (Ec)) 325 mg BID PO Last administered on 12/13 /16at 08:46; Admin Dose 325 MG; Start 08/13/16 at 21:00 Fish Oil (Fish Oil) 1,000 mg DAILY PO Last administered on 08/28/16 08:45; Admin Dose 1,000 MG; Start 08/14/16 at 09:00 Lactobacillus Acidoph/Bulgaricus (Floranex) 1 tab TID PO Last administered on 08/28/16at 13:10; Admin Dose 1 TAB; Start 08/13/16 at 21:00 Metoprolol Tartrate (Lopressor) 12.5 mg BID PO Last administered on 08/28/16 08:44; Admin Dose 12.5 MG; Start 08/13/16 at 21:00 Pregabalin (Lyrica) 50 mg TID PO Last administered on 08/28/16 13:10; Admin Dose 50 MG; Start 08/13/16 at 21:00 Pyridoxine HCl (Vitamin B6) 100 mg DAILY PO Last administered on 08/28/16 08: 45; Admin Dose 100 MG; Start 08/14/16 at 09:00 Simethicone (Mylicon) 80 mg Q6H PRN PO INTESTINAL SPASMS/CRAMPING Last administered on 08/16/16at 15:27; Admin Dose 80 MG; Start 08/13/16 at 17:30 Vitamin E (Vitamin E) 400 units DAILY PO Last administered on 08/28/16at 08:47 ; Admin Dose 400 UNITS; Start 08/14/16 at 09:00 Fluoxetine HCl (Prozac) 20 mg DAILY PO Last administered on 08/28/16at 08:45; Admin Dose 20 MG; Start 08/14/16 at 09:00 Miscellaneous Information 1 ea NOTE XX ; Start 08/13/16 at 18:00 Glucose (Glutose) 15 gm Q15M PRN PO DECREASED GLUCOSE; Start 08/13/16 at 18:00 Glucose (Glutose) 22.5 gm Q15M PRN PO DECREASED GLUCOSE; Start 08/13/16 at 18: 00 Dextrose (D50w Syringe) 25 ml Q15M PRN IV DECREASED GLUCOSE; Start 08/13/16 at 18:00 Dextrose (D50w Syringe) 50 ml Q15M PRN IV DECREASED GLUCOSE; Start 08/13/16 at 18:00 Glucagon (Glucagen) 1 mg Q15M PRN IM DECREASED GLUCOSE; Start 08/13/16 at 18: 00 Glucose (Glutose) 15 gm Q15M PRN BUCCAL DECREASED GLUCOSE; Start 08/13/16 at 18:00 Sodium Hypochlorite (Dakin'S (1/4 Strength)) 1 applic DAILY IRR Last administered on 08/28/16at 08:48; Admin Dose 1 APPLIC; Start 08/13/16 at 20:00 Acetaminophen/ Hydrocodone Bitart ([place] (5/325)) 2 tab Q6H PRN PO MODERATE PAIN LEVEL 4-6 Last administered on 08/28/16at 13:38; Admin Dose 2 TAB; Start 08/14/16 at 13:00 IV Flush (NS 10 ml) 10 ml PRN PRN IV IV PTOTOCOL; Start 08/14/16 at 17:00 Acetylcysteine (Nac) 600 mg BID PO Last administered on 08/28/16at 08:47; Admin Dose 600 MG; Start 08/16/16 at 21:00 Ondansetron HCl (Zofran Inj) 4 mg Q4H PRN IV NAUSEA AND/OR VOMITING; Start 08/16/16 at 12:30 Zolpidem Tartrate (Ambien) 10 mg HS PRN PO INSOMNIA Last administered on 22:02; Admin Dose 10 MG; Start 08/16/16 at 21:00 Lorazepam (Ativan) 1 mg Q6 PRN PO ANXIETY Last administered on 08/25/16at 22:08 ; Admin Dose 1 MG; Start 08/18/16 at 14:30 Insulin Glargine (Lantus) 15 unit QHS SC Last administered on 08/27/16at 21:06 ; Admin Dose 15 UNIT; Start 08/19/16 at 21:00 Diagnostic Test (Pha) (Accucheck) 1 ea 02 XX Last administered on 08/28/16 02 :02; Admin Dose 1 EA; Start 08/20/16 at 02:00 Phenol (Cepastat Lozenge) 1 lozenge Q1H PRN MT DRY MOUTH Last administered on 08/20/16 21:28; Admin Dose 1 LOZENGE; Start 08/20/16 at 20:30 Lorazepam 1 mg 1 mg HS PRN PO ANXIETY, HELP WITH SLEEP Last administered on 12/ 12/16at 22:09; Admin Dose 1 MG; Start 08/22/16 at 18:30 Vancomycin HCl (Vancocin) 250 ml @ 125 mls/hr Q24H IVPB Last administered on 08/27/16at 16:24; Admin Dose 125 MLS/HR; Start 08/26/16 at 16:00 Bumetanide (Bumex) 2 mg BID@06,14 PO Last administered on 08/28/16at 13:11; Admin Dose 2 MG; Start 08/25/16 at 14:00 Diphenhydramine HCl (Benadryl) 25 mg Q6H PRN PO ITCHING Last administered on at 08:47; Admin Dose 25 MG; Start 08/26/16 at 20:30 Levofloxacin (Levaquin) 500 mg DAILY@06 PO Last administered on 08/28/16at 06: 19; Admin Dose 500 MG; Start 08/28/16 at 06:00 Miscellaneous Information (*Rx Drug Level Order Reminder*) 1 ONCE ONCE XX ; Start 08/29/16 at 15:00; Stop 08/29/16 at 15:01 GIO BISHOP NP Aug 28, 2016 15:31
[2016-08-28] MEDS: VANCOMYCIN 1 GM in NS 250 ML IVPB SCH (16:17)
[2016-08-28] MEDS: morphine 2 MG INJ IV PRN (16:43)
[2016-08-28 20:00] VITALS: BP 124/59; RESP 22
[2016-08-28] MEDS: ATORVASTATIN 10 MG TAB PO SCH (21:22)
[2016-08-28] MEDS: INSULIN GLARGINE [LANtus] 3 ML PEN SC SCH (21:38)
[2016-08-28] MEDS: ZOLPIDEM 5 MG TAB PO PRN (22:05)
[2016-08-28] MEDS: LORAZEPAM 1 MG TAB PO PRN (22:05)
[2016-08-28 22:40] VITALS: PULSE 78
[2016-08-29 00:35] VITALS: PULSE 71
[2016-08-29] MEDS: ALBUTEROL/IPRATROPIUM (NEB) 3 ML AMP HHN SCH ×6 (00:38→20:31)
[2016-08-29] MEDS: ACCUCHECK XX SCH (02:07)
[2016-08-29 02:45] VITALS: PULSE 72
[2016-08-29 05:25] VITALS: PULSE 81
[2016-08-29] MEDS: LEVOFLOXACIN 500 MG TAB PO SCH (06:23)
[2016-08-29] MEDS: BUMETANIDE 1 MG TAB PO SCH ×2 (07:43→17:11)
[2016-08-29 08:00] VITALS: BP 132/63; PULSE 74; RESP 18
[2016-08-29 08:07] LABS: BASOPHILS % 0.1 % (0.0-2.0); EOSINOPHILS # 0.7 10^3/ul (0.0-0.5); EOSINOPHILS % 8.2 % (0.0-7.0); HEMATOCRIT 28.5 % (42.0-52.0); HEMOGLOBIN 9.2 g/dl (14.0-18.0); LYMPHOCYTES # 0.8 10^3/ul (0.8-2.9); LYMPHOCYTES % 9.5 % (15.0-51.0); MEAN CORPUSCULAR HEMOGLOBIN 25.3 pg (29.0-33.0); MEAN CORPUSCULAR HGB CONC 32.4 g/dl (32.0-37.0); MEAN CORPUSCULAR VOLUME 78.3 fl (82.0-101.0); MEAN PLATELET VOLUME 7.7 fl (7.4-10.4); MONOCYTE # 0.7 10^3/ul (0.3-0.9); MONOCYTES % 8.3 % (0.0-11.0); NEUTROPHIL # 6.2 10^3/ul (1.6-7.5); NEUTROPHILS % 73.9 % (39.0-77.0); PLATELET COUNT 280 10^3/UL (140-440); RED BLOOD COUNT 3.64 10^6/ul (4.70-6.10); RED CELL DISTRIBUTION WIDTH 21.3 % (11.5-14.5); UNCORRECTED WBC 8.3 10^3/ul (4.8-10.8); WHITE BLOOD COUNT 8.3 10^3/ul (4.8-10.8)
[2016-08-29 08:15] LABS: CONDITION 1; LH ANALYZER COMMENTS 1; SUSPECT 1
[2016-08-29] MEDS: INSULIN ASPART [NOVOLOG] 3 ML PEN SC SCH ×7 (08:15→22:03)
[2016-08-29 08:27] LABS: POTASSIUM 4.6 mmol/L (3.5-5.1)
[2016-08-29 08:29] LABS: CREATININE 1.53 mg/dl (0.61-1.24); PHOSPHORUS 5.6 mg/dl (2.5-4.9)
[2016-08-29] MEDS: SODIUM HYPOCHLORITE 0.125% 473 ML BTL IRR SCH (09:00)
[2016-08-29] MEDS: ALLOPURINOL 100 MG TAB PO SCH (09:07)
[2016-08-29] MEDS: FERROUS SULFATE (EC) 325 MG TAB PO SCH ×2 (09:07→21:57)
[2016-08-29] MEDS: FLUOXETINE 20 MG CAP PO SCH (09:07)
[2016-08-29] MEDS: ASPIRIN (EC) 81 MG TAB PO SCH (09:07)
[2016-08-29] MEDS: FISH OIL 1,000 MG CAP PO SCH (09:07)
[2016-08-29] MEDS: PREGABALIN 25 MG CAP PO SCH ×3 (09:07→21:57)
[2016-08-29] MEDS: LACTOBACILLUS CHEW TAB PO SCH ×3 (09:07→21:57)
[2016-08-29] MEDS: FAMOTIDINE 20 MG TAB PO SCH ×2 (09:07→21:57)
[2016-08-29] MEDS: ACETYLCYSTEINE 600 MG CAP PO SCH ×2 (09:08→21:57)
[2016-08-29] MEDS: VITAMIN E 400 UNITS CAP PO SCH (09:08)
[2016-08-29] MEDS: CHOLECALCIFEROL 1,000 UNIT TAB PO SCH (09:08)
[2016-08-29] MEDS: PYRIDOXINE 50 MG TAB PO SCH (09:08)
[2016-08-29] MEDS: ASCORBIC ACID 500 MG TAB PO SCH (09:08)
[2016-08-29] MEDS: METOPROLOL 25 MG TAB PO SCH ×2 (09:09→21:58)
--- NOTE | 2016-08-29 13:13 | CONS ---
Date/Time of Note Date/Time of Note DATE: 08/29/16 TIME: 13:12 Assessment/Plan Assessment/Plan Chief Complaint/Hosp Course Alert, feels ok, no fevers, nad MICROBIOLOGY: 08/13/16 Bld cx+ [facility]NO[facility]: MRI revealed cellulitis and osteomyelitis of the left first toe. ANTIMICROBIALS: Vancomycin Levaquin Urinalysis on admission was negative. PHYSICAL EXAMINATION: GENERAL: Obese, well-developed, middle-aged white man who is sitting in a chair. Patient is in no distress. HEENT: Head atraumatic, normocephalic. Sclerae anicteric. Buccal mucosa dry. NECK: Supple, trachea midline. CHEST: Rise symmetrical. Breath sounds clear, diminished to bases. HEART: S1, S2. ABDOMEN: Soft, bowel tones present. EXTREMITIES: Bilateral Patrick wraps. ASSESSMENT: 1. Bilateral lower extremities acute on chronic cellulitis with chronic venous stasis and left toe osteomyelitis. 2. Systemic inflammatory response syndrome 2 to above. 3. S/p septicemia==>KENAN 4. Questionable pneumonia as per chest x-ray. 5. Morbid obesity. 6. Atrial fibrillation, chronic. 7. Chronic kidney disease. 8. PAD==> s/p angiogram PLAN: Remains stable, continue abx, card/renal/podiatry rec-s, complete 6 weeks abx [facility] staff Problems: Consultation Date/Type/Reason Admit Date/Time Aug 13, 2016 at 16:30 Initial Consult Date 08/13/16 Type of Consultation: ID Referring Provider: KELLEN MEDINA MD 24 HR Interval Summary Constitutional: no complaints Exam/Review of Systems Vital Signs Vitals Vital Signs Date Time Temp Pulse Resp B/P Pulse Ox O2 Delivery O2 Flow Rate FiO2 08/29/16 09:21 87 18 94 Nasal Cannula 5.0 08/29/16 08:00 97.9 132/63 08/29/16 05:25 4 Intake and Output 08/28/16 08/28/16 08/29/16 15:00 23:00 07:00 Intake Total 1070 ml 400 ml Output Total 1200 ml 650 ml Balance -130 ml -250 ml Results Result Diagram: 08/29/16 0720 08/29/16 0720 Results 24 hrs Laboratory Tests Test 08/28/16 17:14 08/28/16 21:20 08/29/16 01:54 08/29/16 07:20 Bedside Glucose 90 187 118 Anion Gap 14 Basophils # 0.0 Basophils % 0.1 Blood Morphology Comment Blood Urea Nitrogen 70 H Calcium Level 8.0 L Carbon Dioxide Level 29 Chloride Level 97 Creatinine 1.53 H Eosinophils # 0.7 H Eosinophils % 8.2 H Glucose Level 80 # Hematocrit 28.5 L Hemoglobin 9.2 L Lymphocytes # 0.8 Lymphocytes % 9.5 L Magnesium Level 2.0 Mean Corpuscular Hemoglobin 25.3 L Mean Corpuscular Hemoglobin Concent 32.4 Mean Corpuscular Volume 78.3 L Mean Platelet Volume 7.7 Monocytes # 0.7 Monocytes % 8.3 Neutrophils # 6.2 Neutrophils % 73.9 Nucleated Red Blood Cells # 0.0 Nucleated Red Blood Cells % 0.0 Phosphorus Level 5.6 H Platelet Count 280 Potassium Level 4.6 Red Blood Count 3.64 L Red Cell Distribution Width 21.3 H Sodium Level 135 White Blood Count 8.3 Test 08/29/16 07:49 08/29/16 11:39 Bedside Glucose 86 118 Medications Medications Current Medications Acetaminophen (Tylenol Tab) 650 mg Q6H PRN PO PAIN LEVEL 1-3 OR FEVER; Start 08/13/16 at 17:30 Acetaminophen/ Hydrocodone Bitart ([place] (5/325)) 1 tab Q6H PRN PO MODERATE PAIN LEVEL 4-6; Start 08/13/16 at 17:30 Morphine Sulfate (morphine) 2 mg Q4H PRN IV SEVERE PAIN LEVEL 7-10 Last administered on 08/28/16at 16:43; Admin Dose 2 MG; Start 08/13/16 at 17:30 Docusate Sodium (Colace) 100 mg Q12H PRN PO CONSTIPATION; Start 08/13/16 at 17 :30 Famotidine (Pepcid) 20 mg Q12 PO Last administered on 08/29/16at 09:07; Admin Dose 20 MG; Start 08/13/16 at 21:00 Heparin Sodium (Porcine) (Heparin (5000 Units/0.5 ml)) 5,000 unit Q12 SC Last administered on 08/25/16at 21:01; Admin Dose 5,000 UNIT; Start 08/13/16 at 21: 00; Status Future Hold Allopurinol (Zyloprim) 100 mg DAILY PO Last administered on 08/29/16at 09:07; Admin Dose 100 MG; Start 08/14/16 at 09:00 Ascorbic Acid (Vitamin C) 500 mg DAILY PO Last administered on 08/29/16 09:08 ; Admin Dose 500 MG; Start 08/13/16 at 18:00 Aspirin (Halfprin) 81 mg DAILY PO Last administered on 08/29/16 09:07; Admin Dose 81 MG; Start 08/14/16 at 09:00 Atorvastatin Calcium (Lipitor) 10 mg QHS PO Last administered on 08/28/16 21: 22; Admin Dose 10 MG; Start 08/13/16 at 21:00 Cholecalciferol (Vitamin D) 1,000 unit DAILY PO Last administered on 09:08; Admin Dose 1,000 UNIT; Start 08/14/16 at 09:00 Ferrous Sulfate (Ferrous Sulfate (Ec)) 325 mg BID PO Last administered on 08/29 09:07; Admin Dose 325 MG; Start 08/13/16 at 21:00 Fish Oil (Fish Oil) 1,000 mg DAILY PO Last administered on 08/29/16 09:07; Admin Dose 1,000 MG; Start 08/14/16 at 09:00 Lactobacillus Acidoph/Bulgaricus (Floranex) 1 tab TID PO Last administered on 08/29/16 12:04; Admin Dose 1 TAB; Start 08/13/16 at 21:00 Metoprolol Tartrate (Lopressor) 12.5 mg BID PO Last administered on 08/29/16 09:09; Admin Dose 12.5 MG; Start 08/13/16 at 21:00 Pregabalin (Lyrica) 50 mg TID PO Last administered on 08/29/16 12:04; Admin Dose 50 MG; Start 08/13/16 at 21:00 Pyridoxine HCl (Vitamin B6) 100 mg DAILY PO Last administered on 08/29/16 09: 08; Admin Dose 100 MG; Start 08/14/16 at 09:00 Simethicone (Mylicon) 80 mg Q6H PRN PO INTESTINAL SPASMS/CRAMPING Last administered on 08/16/16 15:27; Admin Dose 80 MG; Start 08/13/16 at 17:30 Vitamin E (Vitamin E) 400 units DAILY PO Last administered on 12/14/16at 09:08 ; Admin Dose 400 UNITS; Start 08/14/16 at 09:00 Fluoxetine HCl (Prozac) 20 mg DAILY PO Last administered on 08/29/16at 09:07; Admin Dose 20 MG; Start 08/14/16 at 09:00 Miscellaneous Information 1 ea NOTE XX ; Start 08/13/16 at 18:00 Glucose (Glutose) 15 gm Q15M PRN PO DECREASED GLUCOSE; Start 08/13/16 at 18:00 Glucose (Glutose) 22.5 gm Q15M PRN PO DECREASED GLUCOSE; Start 08/13/16 at 18: 00 Dextrose (D50w Syringe) 25 ml Q15M PRN IV DECREASED GLUCOSE; Start 08/13/16 at 18:00 Dextrose (D50w Syringe) 50 ml Q15M PRN IV DECREASED GLUCOSE; Start 08/13/16 at 18:00 Glucagon (Glucagen) 1 mg Q15M PRN IM DECREASED GLUCOSE; Start 08/13/16 at 18: 00 Glucose (Glutose) 15 gm Q15M PRN BUCCAL DECREASED GLUCOSE; Start 08/13/16 at 18:00 Sodium Hypochlorite (Dakin'S (1/4 Strength)) 1 applic DAILY IRR Last administered on 08/28/16at 08:48; Admin Dose 1 APPLIC; Start 08/13/16 at 20:00 Acetaminophen/ Hydrocodone Bitart ([place] (5/325)) 2 tab Q6H PRN PO MODERATE PAIN LEVEL 4-6 Last administered on 08/28/16at 13:38; Admin Dose 2 TAB; Start 08/14/16 at 13:00 IV Flush (NS 10 ml) 10 ml PRN PRN IV IV PTOTOCOL; Start 08/14/16 at 17:00 Acetylcysteine (Nac) 600 mg BID PO Last administered on 08/29/16at 09:08; Admin Dose 600 MG; Start 08/16/16 at 21:00 Ondansetron HCl (Zofran Inj) 4 mg Q4H PRN IV NAUSEA AND/OR VOMITING; Start 08/16/16 at 12:30 Zolpidem Tartrate (Ambien) 10 mg HS PRN PO INSOMNIA Last administered on at 22:05; Admin Dose 10 MG; Start 08/16/16 at 21:00 Lorazepam (Ativan) 1 mg Q6 PRN PO ANXIETY Last administered on 08/25/16 22:08 ; Admin Dose 1 MG; Start 08/18/16 at 14:30 Insulin Glargine (Lantus) 15 unit QHS SC Last administered on 08/28/16 21:38 ; Admin Dose 15 UNIT; Start 08/19/16 at 21:00 Diagnostic Test (Pha) (Accucheck) 1 ea 02 XX Last administered on 08/29/16 02 :07; Admin Dose 1 EA; Start 08/20/16 at 02:00 Phenol (Cepastat Lozenge) 1 lozenge Q1H PRN MT DRY MOUTH Last administered on 08/20/16 21:28; Admin Dose 1 LOZENGE; Start 08/20/16 at 20:30 Lorazepam 1 mg 1 mg HS PRN PO ANXIETY, HELP WITH SLEEP Last administered on 22:05; Admin Dose 1 MG; Start 08/22/16 at 18:30 Vancomycin HCl (Vancocin) 250 ml @ 125 mls/hr Q24H IVPB Last administered on 08/28/16 16:17; Admin Dose 125 MLS/HR; Start 08/26/16 at 16:00 Bumetanide (Bumex) 2 mg BID@06,14 PO Last administered on 08/29/16at 07:43; Admin Dose 2 MG; Start 08/25/16 at 14:00 Diphenhydramine HCl (Benadryl) 25 mg Q6H PRN PO ITCHING Last administered on 16:17; Admin Dose 25 MG; Start 08/26/16 at 20:30 Levofloxacin (Levaquin) 500 mg DAILY@06 PO Last administered on 08/29/16at 06: 23; Admin Dose 500 MG; Start 08/28/16 at 06:00 Miscellaneous Information (*Rx Drug Level Order Reminder*) 1 ONCE ONCE XX ; Start 08/29/16 at 15:00; Stop 08/29/16 at 15:01 JAMEY VAZQUEZ NP Aug 29, 2016 13:13
--- NOTE | 2016-08-29 14:17 | PN ---
Date/Time of Note Date/Time of Note DATE: 08/29/16 TIME: 14:14 Assessment/Plan VTE Prophylaxis VTE Prophylaxis Intervention: heparin Lines/Catheters IV [facility]atheter Type (from [facility]): PICC Line Central line still needed: Yes Urinary Cath still in place: No Assessment/Plan Chief Complaint/Hosp Course 1. Left great toe osteomyelitis. Continue antibiotics as per infectious disease. Status post evaluation by vascular surgery. 2. Acute on chronic respiratory failure, hypoxic and hypercapnic. Continue noninvasive positive pressure ventilation. Continue inhaled bronchodilators. 3. Pulmonary hypertension. Continue supplemental oxygen. 4. Acute on chronic kidney disease. Renally dose medications. Nephrology following. 5. Congestive heart failure exacerbation. Acute on chronic diastolic dysfunction. Continue diuretics as per nephrology. 6. Type 2 diabetes mellitus. Hemoglobin A1c 5.8. Continue carbohydrate controlled diet. Continue sliding scale insulin. 7. Essential hypertension. Continue antihypertensives. 8. History of atrial fibrillation. Currently in sinus rhythm. 9. Dyslipidemia. Continue statins. 10. Gout. Continue allopurinol. 11. Major depression. Continue selective serotonin reuptake inhibitors. 12. Morbid obesity with BMI of 42.5 kg/meter squared. Weight reduction advised. 13. Fluid, electrolytes, and nutrition. Renal, carbohydrate controlled diet. 14. Deep vein thrombosis prophylaxis. Subcutaneous heparin. 15. Gastrointestinal prophylaxis. Histamine 2 blockers. PLAN: Await ARU placement if insurance approves. The patient is medically stable to be discharged to acute rehabilitation unit once a bed is available. Case discussed with Dr. Pruitt. Called the patient 's insurance @ and left a message for peer review. Reference # is [id number]. Problems: Subjective 24 Hr Interval Summary Free Text/Dictation Awaiting on insurance approval for ARU. Exam/Review of Systems Vital Signs Vitals Vital Signs Date Time Temp Pulse Resp B/P Pulse Ox O2 Delivery O2 Flow Rate FiO2 08/29/16 13:38 89 20 90 Nasal Cannula 6.0 08/29/16 08:00 97.9 132/63 08/29/16 05:25 4 Intake and Output 08/28/16 08/28/16 08/29/16 15:00 23:00 07:00 Intake Total 1070 ml 400 ml Output Total 1200 ml 650 ml Balance -130 ml -250 ml Exam GENERAL: This is a morbidly obese male sitting in a chair in mild respiratory distress with oxygen via nasal cannula. HEENT: Head normocephalic and atraumatic. Eyes: Anicteric sclerae. Conjunctivae clear. ENT: Nasal septum. Oral mucosa is dry. NECK: Supple. RESPIRATORY: Bilaterally diminished breath sounds. Minimal use of accessory muscles of respiration. On supplemental oxygen. CARDIAC: Regular rate and rhythm. ABDOMEN: Soft, nontender, but protuberant. Bowel sounds hypoactive in all 4 quadrants. GENITOURINARY: Deferred. EXTREMITIES: Bilateral lower extremity 2+ edema. SKIN: Maculopapular rashes on B/L upper extremities. NEUROLOGIC: The patient is awake, alert, and oriented. Moves all four extremities. Results Result Diagram: 08/29/16 0720 08/29/16 0720 Results 24 hrs Laboratory Tests Test 08/28/16 17:14 08/28/16 21:20 08/29/16 01:54 08/29/16 07:20 Bedside Glucose 90 187 118 Anion Gap 14 Basophils # 0.0 Basophils % 0.1 Blood Morphology Comment Blood Urea Nitrogen 70 H Calcium Level 8.0 L Carbon Dioxide Level 29 Chloride Level 97 Creatinine 1.53 H Eosinophils # 0.7 H Eosinophils % 8.2 H Glucose Level 80 # Hematocrit 28.5 L Hemoglobin 9.2 L Lymphocytes # 0.8 Lymphocytes % 9.5 L Magnesium Level 2.0 Mean Corpuscular Hemoglobin 25.3 L Mean Corpuscular Hemoglobin Concent 32.4 Mean Corpuscular Volume 78.3 L Mean Platelet Volume 7.7 Monocytes # 0.7 Monocytes % 8.3 Neutrophils # 6.2 Neutrophils % 73.9 Nucleated Red Blood Cells # 0.0 Nucleated Red Blood Cells % 0.0 Phosphorus Level 5.6 H Platelet Count 280 Potassium Level 4.6 Red Blood Count 3.64 L Red Cell Distribution Width 21.3 H Sodium Level 135 White Blood Count 8.3 Test 08/29/16 07:49 08/29/16 11:39 Bedside Glucose 86 118 Medications Medications Current Medications Acetaminophen (Tylenol Tab) 650 mg Q6H PRN PO PAIN LEVEL 1-3 OR FEVER; Start 08/13/16 at 17:30 Acetaminophen/ Hydrocodone Bitart ([place] (5/325)) 1 tab Q6H PRN PO MODERATE PAIN LEVEL 4-6; Start 08/13/16 at 17:30 Morphine Sulfate (morphine) 2 mg Q4H PRN IV SEVERE PAIN LEVEL 7-10 Last administered on 08/28/16 16:43; Admin Dose 2 MG; Start 08/13/16 at 17:30 Docusate Sodium (Colace) 100 mg Q12H PRN PO CONSTIPATION; Start 08/13/16 at 17 :30 Famotidine (Pepcid) 20 mg Q12 PO Last administered on 08/29/16 09:07; Admin Dose 20 MG; Start 08/13/16 at 21:00 Heparin Sodium (Porcine) (Heparin (5000 Units/0.5 ml)) 5,000 unit Q12 SC Last administered on 08/25/16 21:01; Admin Dose 5,000 UNIT; Start 08/13/16 at 21: 00; Status Future Hold Allopurinol (Zyloprim) 100 mg DAILY PO Last administered on 08/29/16 09:07; Admin Dose 100 MG; Start 08/14/16 at 09:00 Ascorbic Acid (Vitamin C) 500 mg DAILY PO Last administered on 08/29/16 09:08 ; Admin Dose 500 MG; Start 08/13/16 at 18:00 Aspirin (Halfprin) 81 mg DAILY PO Last administered on 08/29/16 09:07; Admin Dose 81 MG; Start 08/14/16 at 09:00 Atorvastatin Calcium (Lipitor) 10 mg QHS PO Last administered on 08/28/16 21: 22; Admin Dose 10 MG; Start 08/13/16 at 21:00 Cholecalciferol (Vitamin D) 1,000 unit DAILY PO Last administered on 09:08; Admin Dose 1,000 UNIT; Start 08/14/16 at 09:00 Ferrous Sulfate (Ferrous Sulfate (Ec)) 325 mg BID PO Last administered on 08/29 09:07; Admin Dose 325 MG; Start 08/13/16 at 21:00 Fish Oil (Fish Oil) 1,000 mg DAILY PO Last administered on 08/29/16 09:07; Admin Dose 1,000 MG; Start 08/14/16 at 09:00 Lactobacillus Acidoph/Bulgaricus (Floranex) 1 tab TID PO Last administered on 08/29/16 12:04; Admin Dose 1 TAB; Start 08/13/16 at 21:00 Metoprolol Tartrate (Lopressor) 12.5 mg BID PO Last administered on 08/29/16 09:09; Admin Dose 12.5 MG; Start 08/13/16 at 21:00 Pregabalin (Lyrica) 50 mg TID PO Last administered on 08/29/16at 12:04; Admin Dose 50 MG; Start 08/13/16 at 21:00 Pyridoxine HCl (Vitamin B6) 100 mg DAILY PO Last administered on 08/29/16at 09: 08; Admin Dose 100 MG; Start 08/14/16 at 09:00 Simethicone (Mylicon) 80 mg Q6H PRN PO INTESTINAL SPASMS/CRAMPING Last administered on 08/16/16 15:27; Admin Dose 80 MG; Start 08/13/16 at 17:30 Vitamin E (Vitamin E) 400 units DAILY PO Last administered on 08/29/16 09:08 ; Admin Dose 400 UNITS; Start 08/14/16 at 09:00 Fluoxetine HCl (Prozac) 20 mg DAILY PO Last administered on 08/29/16at 09:07; Admin Dose 20 MG; Start 08/14/16 at 09:00 Miscellaneous Information 1 ea NOTE XX ; Start 08/13/16 at 18:00 Glucose (Glutose) 15 gm Q15M PRN PO DECREASED GLUCOSE; Start 08/13/16 at 18:00 Glucose (Glutose) 22.5 gm Q15M PRN PO DECREASED GLUCOSE; Start 08/13/16 at 18: 00 Dextrose (D50w Syringe) 25 ml Q15M PRN IV DECREASED GLUCOSE; Start 08/13/16 at 18:00 Dextrose (D50w Syringe) 50 ml Q15M PRN IV DECREASED GLUCOSE; Start 08/13/16 at 18:00 Glucagon (Glucagen) 1 mg Q15M PRN IM DECREASED GLUCOSE; Start 08/13/16 at 18: 00 Glucose (Glutose) 15 gm Q15M PRN BUCCAL DECREASED GLUCOSE; Start 08/13/16 at 18:00 Sodium Hypochlorite (Dakin'S (1/4 Strength)) 1 applic DAILY IRR Last administered on 08/28/16at 08:48; Admin Dose 1 APPLIC; Start 08/13/16 at 20:00 Acetaminophen/ Hydrocodone Bitart ([place] (5/325)) 2 tab Q6H PRN PO MODERATE PAIN LEVEL 4-6 Last administered on 08/28/16 13:38; Admin Dose 2 TAB; Start 08/14/16 at 13:00 IV Flush (NS 10 ml) 10 ml PRN PRN IV IV PTOTOCOL; Start 08/14/16 at 17:00 Acetylcysteine (Nac) 600 mg BID PO Last administered on 08/29/16 09:08; Admin Dose 600 MG; Start 08/16/16 at 21:00 Ondansetron HCl (Zofran Inj) 4 mg Q4H PRN IV NAUSEA AND/OR VOMITING; Start 08/16/16 at 12:30 Zolpidem Tartrate (Ambien) 10 mg HS PRN PO INSOMNIA Last administered on 22:05; Admin Dose 10 MG; Start 08/16/16 at 21:00 Lorazepam (Ativan) 1 mg Q6 PRN PO ANXIETY Last administered on 08/25/16at 22:08 ; Admin Dose 1 MG; Start 08/18/16 at 14:30 Insulin Glargine (Lantus) 15 unit QHS SC Last administered on 08/28/16 21:38 ; Admin Dose 15 UNIT; Start 08/19/16 at 21:00 Diagnostic Test (Pha) (Accucheck) 1 ea 02 XX Last administered on 08/29/16at 02 :07; Admin Dose 1 EA; Start 08/20/16 at 02:00 Phenol (Cepastat Lozenge) 1 lozenge Q1H PRN MT DRY MOUTH Last administered on 08/20/16 21:28; Admin Dose 1 LOZENGE; Start 08/20/16 at 20:30 Lorazepam 1 mg 1 mg HS PRN PO ANXIETY, HELP WITH SLEEP Last administered on 22:05; Admin Dose 1 MG; Start 08/22/16 at 18:30 Vancomycin HCl (Vancocin) 250 ml @ 125 mls/hr Q24H IVPB Last administered on 08/28/16 16:17; Admin Dose 125 MLS/HR; Start 08/26/16 at 16:00 Bumetanide (Bumex) 2 mg BID@06,14 PO Last administered on 08/29/16 07:43; Admin Dose 2 MG; Start 08/25/16 at 14:00 Diphenhydramine HCl (Benadryl) 25 mg Q6H PRN PO ITCHING Last administered on at 16:17; Admin Dose 25 MG; Start 08/26/16 at 20:30 Levofloxacin (Levaquin) 500 mg DAILY@06 PO Last administered on 08/29/16at 06: 23; Admin Dose 500 MG; Start 08/28/16 at 06:00 Miscellaneous Information (*Rx Drug Level Order Reminder*) 1 ONCE ONCE XX ; Start 08/29/16 at 15:00; Stop 08/29/16 at 15:01 GIO BISHOP NP Aug 29, 2016 14:17
[2016-08-29] MEDS: HYDROCODONE/APAP (5/325) TAB PO PRN (15:01)
--- NOTE | 2016-08-29 18:43 | CONS ---
Date/Time of Note Date/Time of Note DATE: 08/29/16 TIME: 18:42 Assessment/Plan Assessment/Plan Additional Assessment/Plan 60 yo Male with 1) LORNA on CKD 2) Left toe cellulits OM 3) HTN, Chronic 4) Diastolic Heart Failure, Chronic 5) Pulm HTN 6) Anema, Chronic 7) RLL Patchy Consolidation 8) Anasarca Renal function stable. Cont to monitor renal function on increased diuretic Dose Bumex 2mg po bid Will send, Urine studies today Cont 1.5L Fluid restriction Daily weights. If patient disharged to Rehab, will follow at ARU.. Consultation Date/Type/Reason Admit Date/Time Aug 13, 2016 at 16:30 Initial Consult Date 08/13/16 Type of Consultation: Nephrology Referring Provider: KELLEN MEDINA MD 24 HR Interval Summary Constitutional: requiring O2 Exam/Review of Systems Vital Signs Vitals Vital Signs Date Time Temp Pulse Resp B/P Pulse Ox O2 Delivery O2 Flow Rate FiO2 08/29/16 17:05 6.0 08/29/16 17:04 69 20 92 Nasal Cannula 08/29/16 08:00 97.9 132/63 08/29/16 05:25 4 Intake and Output 08/28/16 08/28/16 08/29/16 15:00 23:00 07:00 Intake Total 1070 ml 400 ml Output Total 1200 ml 650 ml Balance -130 ml -250 ml Exam Constitutional: No distress ENMT: mucosa pink and moist Respiratory: crackles/rales, diminished breath sounds Cardiovascular: edema, regular rate and rhythm Gastrointestinal: soft 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, nl mental status Results Result Diagram: 08/29/16 0720 08/29/16 0720 Results 24 hrs Laboratory Tests Test 08/28/16 21:20 08/29/16 01:54 08/29/16 07:20 08/29/16 07:49 Bedside Glucose 187 118 86 Anion Gap 14 Basophils # 0.0 Basophils % 0.1 Blood Morphology Comment Blood Urea Nitrogen 70 H Calcium Level 8.0 L Carbon Dioxide Level 29 Chloride Level 97 Creatinine 1.53 H Eosinophils # 0.7 H Eosinophils % 8.2 H Glucose Level 80 # Hematocrit 28.5 L Hemoglobin 9.2 L Lymphocytes # 0.8 Lymphocytes % 9.5 L Magnesium Level 2.0 Mean Corpuscular Hemoglobin 25.3 L Mean Corpuscular Hemoglobin Concent 32.4 Mean Corpuscular Volume 78.3 L Mean Platelet Volume 7.7 Monocytes # 0.7 Monocytes % 8.3 Neutrophils # 6.2 Neutrophils % 73.9 Nucleated Red Blood Cells # 0.0 Nucleated Red Blood Cells % 0.0 Phosphorus Level 5.6 H Platelet Count 280 Potassium Level 4.6 Red Blood Count 3.64 L Red Cell Distribution Width 21.3 H Sodium Level 135 White Blood Count 8.3 Test 08/29/16 11:39 08/29/16 15:00 08/29/16 16:42 Bedside Glucose 118 162 Vancomycin Level Trough 18.9 Medications Medications Current Medications Acetaminophen (Tylenol Tab) 650 mg Q6H PRN PO PAIN LEVEL 1-3 OR FEVER; Start 08/13/16 at 17:30 Acetaminophen/ Hydrocodone Bitart ([place] (5/325)) 1 tab Q6H PRN PO MODERATE PAIN LEVEL 4-6; Start 08/13/16 at 17:30 Morphine Sulfate (morphine) 2 mg Q4H PRN IV SEVERE PAIN LEVEL 7-10 Last administered on 08/28/16at 16:43; Admin Dose 2 MG; Start 08/13/16 at 17:30 Docusate Sodium (Colace) 100 mg Q12H PRN PO CONSTIPATION; Start 08/13/16 at 17 :30 Famotidine (Pepcid) 20 mg Q12 PO Last administered on 08/29/16at 09:07; Admin Dose 20 MG; Start 08/13/16 at 21:00 Heparin Sodium (Porcine) (Heparin (5000 Units/0.5 ml)) 5,000 unit Q12 SC Last administered on 08/25/16at 21:01; Admin Dose 5,000 UNIT; Start 08/13/16 at 21: 00; Status Future Hold Allopurinol (Zyloprim) 100 mg DAILY PO Last administered on 08/29/16at 09:07; Admin Dose 100 MG; Start 08/14/16 at 09:00 Ascorbic Acid (Vitamin C) 500 mg DAILY PO Last administered on 08/29/16at 09:08 ; Admin Dose 500 MG; Start 08/13/16 at 18:00 Aspirin (Halfprin) 81 mg DAILY PO Last administered on 08/29/16at 09:07; Admin Dose 81 MG; Start 08/14/16 at 09:00 Atorvastatin Calcium (Lipitor) 10 mg QHS PO Last administered on 08/28/16 21: 22; Admin Dose 10 MG; Start 08/13/16 at 21:00 Cholecalciferol (Vitamin D) 1,000 unit DAILY PO Last administered on 09:08; Admin Dose 1,000 UNIT; Start 08/14/16 at 09:00 Ferrous Sulfate (Ferrous Sulfate (Ec)) 325 mg BID PO Last administered on 08/29 09:07; Admin Dose 325 MG; Start 08/13/16 at 21:00 Fish Oil (Fish Oil) 1,000 mg DAILY PO Last administered on 08/29/16 09:07; Admin Dose 1,000 MG; Start 08/14/16 at 09:00 Lactobacillus Acidoph/Bulgaricus (Floranex) 1 tab TID PO Last administered on 08/29/16 12:04; Admin Dose 1 TAB; Start 08/13/16 at 21:00 Metoprolol Tartrate (Lopressor) 12.5 mg BID PO Last administered on 08/29/16 09:09; Admin Dose 12.5 MG; Start 08/13/16 at 21:00 Pregabalin (Lyrica) 50 mg TID PO Last administered on 08/29/16 12:04; Admin Dose 50 MG; Start 08/13/16 at 21:00 Pyridoxine HCl (Vitamin B6) 100 mg DAILY PO Last administered on 08/29/16 09: 08; Admin Dose 100 MG; Start 08/14/16 at 09:00 Simethicone (Mylicon) 80 mg Q6H PRN PO INTESTINAL SPASMS/CRAMPING Last administered on 08/16/16at 15:27; Admin Dose 80 MG; Start 08/13/16 at 17:30 Vitamin E (Vitamin E) 400 units DAILY PO Last administered on 08/29/16 09:08 ; Admin Dose 400 UNITS; Start 08/14/16 at 09:00 Fluoxetine HCl (Prozac) 20 mg DAILY PO Last administered on 08/29/16 09:07; Admin Dose 20 MG; Start 08/14/16 at 09:00 Miscellaneous Information 1 ea NOTE XX ; Start 08/13/16 at 18:00 Glucose (Glutose) 15 gm Q15M PRN PO DECREASED GLUCOSE; Start 08/13/16 at 18:00 Glucose (Glutose) 22.5 gm Q15M PRN PO DECREASED GLUCOSE; Start 08/13/16 at 18: 00 Dextrose (D50w Syringe) 25 ml Q15M PRN IV DECREASED GLUCOSE; Start 08/13/16 at 18:00 Dextrose (D50w Syringe) 50 ml Q15M PRN IV DECREASED GLUCOSE; Start 08/13/16 at 18:00 Glucagon (Glucagen) 1 mg Q15M PRN IM DECREASED GLUCOSE; Start 08/13/16 at 18: 00 Glucose (Glutose) 15 gm Q15M PRN BUCCAL DECREASED GLUCOSE; Start 08/13/16 at 18:00 Sodium Hypochlorite (Dakin'S (1/4 Strength)) 1 applic DAILY IRR Last administered on 08/28/16at 08:48; Admin Dose 1 APPLIC; Start 08/13/16 at 20:00 Acetaminophen/ Hydrocodone Bitart ([place] (5/325)) 2 tab Q6H PRN PO MODERATE PAIN LEVEL 4-6 Last administered on 08/29/16at 15:01; Admin Dose 2 TAB; Start 08/14/16 at 13:00 IV Flush (NS 10 ml) 10 ml PRN PRN IV IV PTOTOCOL; Start 08/14/16 at 17:00 Acetylcysteine (Nac) 600 mg BID PO Last administered on 08/29/16at 09:08; Admin Dose 600 MG; Start 08/16/16 at 21:00 Ondansetron HCl (Zofran Inj) 4 mg Q4H PRN IV NAUSEA AND/OR VOMITING; Start 08/16/16 at 12:30 Zolpidem Tartrate (Ambien) 10 mg HS PRN PO INSOMNIA Last administered on at 22:05; Admin Dose 10 MG; Start 08/16/16 at 21:00 Lorazepam (Ativan) 1 mg Q6 PRN PO ANXIETY Last administered on 08/25/16at 22:08 ; Admin Dose 1 MG; Start 08/18/16 at 14:30 Insulin Glargine (Lantus) 15 unit QHS SC Last administered on 08/28/16at 21:38 ; Admin Dose 15 UNIT; Start 08/19/16 at 21:00 Diagnostic Test (Pha) (Accucheck) 1 ea 02 XX Last administered on 08/29/16at 02 :07; Admin Dose 1 EA; Start 08/20/16 at 02:00 Phenol (Cepastat Lozenge) 1 lozenge Q1H PRN MT DRY MOUTH Last administered on 08/20/16at 21:28; Admin Dose 1 LOZENGE; Start 08/20/16 at 20:30 Lorazepam (Ativan) 1 mg HS PRN PO ANXIETY, HELP WITH SLEEP Last administered on 08/28/16at 22:05; Admin Dose 1 MG; Start 08/22/16 at 18:30 Bumetanide (Bumex) 2 mg BID@06,14 PO Last administered on 08/29/16at 17:11; Admin Dose 2 MG; Start 08/25/16 at 14:00 Diphenhydramine HCl (Benadryl) 25 mg Q6H PRN PO ITCHING Last administered on at 16:17; Admin Dose 25 MG; Start 08/26/16 at 20:30 Levofloxacin 500 mg 500 mg DAILY@06 PO Last administered on 08/29/16at 06:23; Admin Dose 500 MG; Start 08/28/16 at 06:00 Vancomycin HCl/ Sodium Chloride (Vancocin/NS) 150 ml @ 75 mls/hr Q24H IVPB ; Start 08/29/16 at 21:00 DAYN FRANKLIN MD Aug 29, 2016 18:43
[2016-08-29 20:00] VITALS: BP 115/56; PULSE 74; RESP 20
[2016-08-29] MEDS: VANCOMYCIN 750 MG in SOD CHLORIDE 0.9% 150 ML IVPB SCH (21:57)
[2016-08-29] MEDS: ATORVASTATIN 10 MG TAB PO SCH (21:57)
[2016-08-29] MEDS: LORAZEPAM 1 MG TAB PO PRN (22:04)
[2016-08-29] MEDS: ZOLPIDEM 5 MG TAB PO PRN (22:04)
[2016-08-29] MEDS: INSULIN GLARGINE [LANtus] 3 ML PEN SC SCH (22:14)
[2016-08-29 22:48] VITALS: PULSE 98
[2016-08-30] MEDS: ALBUTEROL/IPRATROPIUM (NEB) 3 ML AMP HHN SCH ×6 (01:10→20:27)
[2016-08-30 01:11] VITALS: PULSE 81
[2016-08-30] MEDS: ACCUCHECK XX SCH (02:47)
[2016-08-30] MEDS: HYDROCODONE/APAP (5/325) TAB PO PRN ×3 (02:54→21:51)
[2016-08-30 03:19] VITALS: PULSE 85
[2016-08-30 04:55] VITALS: PULSE 78
[2016-08-30] MEDS: LEVOFLOXACIN 500 MG TAB PO SCH (06:26)
[2016-08-30 08:00] VITALS: BP 129/60; PULSE 70; RESP 18
[2016-08-30] MEDS: INSULIN ASPART [NOVOLOG] 3 ML PEN SC SCH ×7 (08:15→21:00)
[2016-08-30 08:20] LABS: BASOPHILS % 0.6 % (0.0-2.0); EOSINOPHILS # 0.6 10^3/ul (0.0-0.5); HEMATOCRIT 29.9 % (42.0-52.0); HEMOGLOBIN 9.5 g/dl (14.0-18.0); LYMPHOCYTES # 0.8 10^3/ul (0.8-2.9); LYMPHOCYTES % 10.7 % (15.0-51.0); MEAN CORPUSCULAR HEMOGLOBIN 25.1 pg (29.0-33.0); MEAN CORPUSCULAR HGB CONC 31.9 g/dl (32.0-37.0); MEAN CORPUSCULAR VOLUME 78.7 fl (82.0-101.0); MEAN PLATELET VOLUME 7.6 fl (7.4-10.4); MONOCYTE # 0.6 10^3/ul (0.3-0.9); MONOCYTES % 7.7 % (0.0-11.0); NEUTROPHIL # 5.7 10^3/ul (1.6-7.5); PLATELET COUNT 284 10^3/UL (140-440); RED BLOOD COUNT 3.79 10^6/ul (4.70-6.10); RED CELL DISTRIBUTION WIDTH 22.3 % (11.5-14.5); UNCORRECTED WBC 7.8 10^3/ul (4.8-10.8); WHITE BLOOD COUNT 7.8 10^3/ul (4.8-10.8)
[2016-08-30 08:24] LABS: CONDITION 1; LH ANALYZER COMMENTS 1
[2016-08-30 08:30] LABS: POTASSIUM 4.6 mmol/L (3.5-5.1)
[2016-08-30 08:32] LABS: CREATININE 1.65 mg/dl (0.61-1.24)
[2016-08-30 08:33] LABS: CALCIUM 8.2 mg/dl (8.4-10.2)
[2016-08-30 08:34] LABS: PHOSPHORUS 5.4 mg/dl (2.5-4.9)
[2016-08-30] MEDS: FISH OIL 1,000 MG CAP PO SCH (08:38)
[2016-08-30] MEDS: BUMETANIDE 1 MG TAB PO SCH ×2 (08:38→15:49)
[2016-08-30] MEDS: FLUOXETINE 20 MG CAP PO SCH (08:38)
[2016-08-30] MEDS: PREGABALIN 25 MG CAP PO SCH ×3 (08:38→21:42)
[2016-08-30] MEDS: ACETYLCYSTEINE 600 MG CAP PO SCH ×2 (08:38→21:42)
[2016-08-30] MEDS: VITAMIN E 400 UNITS CAP PO SCH (08:38)
[2016-08-30] MEDS: FERROUS SULFATE (EC) 325 MG TAB PO SCH ×2 (08:39→21:44)
[2016-08-30] MEDS: PYRIDOXINE 50 MG TAB PO SCH (08:39)
[2016-08-30] MEDS: ASCORBIC ACID 500 MG TAB PO SCH (08:39)
[2016-08-30] MEDS: CHOLECALCIFEROL 1,000 UNIT TAB PO SCH (08:39)
[2016-08-30] MEDS: FAMOTIDINE 20 MG TAB PO SCH ×2 (08:39→21:43)
[2016-08-30] MEDS: ASPIRIN (EC) 81 MG TAB PO SCH (08:39)
[2016-08-30] MEDS: LACTOBACILLUS CHEW TAB PO SCH ×3 (08:40→21:43)
[2016-08-30] MEDS: ALLOPURINOL 100 MG TAB PO SCH (08:40)
[2016-08-30] MEDS: METOPROLOL 25 MG TAB PO SCH ×2 (08:42→21:43)
[2016-08-30] MEDS: SODIUM HYPOCHLORITE 0.125% 473 ML BTL IRR SCH (09:20)
[2016-08-30] MEDS ORDERED: ALTEPLASE (CATHFLO) 2 MG INJ CATHETER PRN (12:00)
--- NOTE | 2016-08-30 12:04 | CONS ---
Date/Time of Note Date/Time of Note DATE: 08/30/16 TIME: 12:03 Assessment/Plan Assessment/Plan Additional Assessment/Plan 60 yo Male with 1) LORNA on CKD 2) Left toe cellulits OM 3) HTN, Chronic 4) Diastolic Heart Failure, Chronic 5) Pulm HTN 6) Anema, Chronic 7) RLL Patchy Consolidation 8) Anasarca Cont to monitor renal function on diuretic Dose Albumin Infusion today Bumex 2mg po bid Urine studies reviewed Cont 1.5L Fluid restriction Daily weights. If patient discharged to Rehab, will follow at ARU.. Consultation Date/Type/Reason Admit Date/Time Aug 13, 2016 at 16:30 Initial Consult Date 08/13/16 Type of Consultation: Nephrology Referring Provider: KELLEN MEDINA MD Exam/Review of Systems Vital Signs Vitals Vital Signs Date Time Temp Pulse Resp B/P Pulse Ox O2 Delivery O2 Flow Rate FiO2 08/30/16 09:30 76 20 94 6.0 08/30/16 08:00 97.3 129/60 Nasal Cannula 08/30/16 04:55 40 Intake and Output 08/29/16 08/29/16 08/30/16 15:00 23:00 07:00 Intake Total 720 ml 390 ml Output Total 1000 ml 500 ml Balance -280 ml -110 ml Exam Constitutional: alert, No distress Eyes: EOMI Respiratory: diminished breath sounds Cardiovascular: edema, regular rate and rhythm Gastrointestinal: ascites, distended, soft 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: VINYL WELDER AND FABRICATOR 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 Skin: No diaphoresis Results Result Diagram: 08/30/16 0755 08/30/16 0755 Results 24 hrs Laboratory Tests Test 08/29/16 15:00 08/29/16 16:42 08/29/16 21:56 08/30/16 02:15 Vancomycin Level Trough 18.9 Bedside Glucose 162 215 120 Test 08/30/16 07:48 08/30/16 07:55 Bedside Glucose 100 Anion Gap 15 Basophils # 0.0 Basophils % 0.6 Blood Morphology Comment Blood Urea Nitrogen 70 H Calcium Level 8.2 L Carbon Dioxide Level 28 Chloride Level 98 Creatinine 1.65 H Eosinophils # 0.6 H Eosinophils % 8.0 H Glucose Level 87 Hematocrit 29.9 L Hemoglobin 9.5 L Lymphocytes # 0.8 Lymphocytes % 10.7 L Magnesium Level 2.0 Mean Corpuscular Hemoglobin 25.1 L Mean Corpuscular Hemoglobin Concent 31.9 L Mean Corpuscular Volume 78.7 L Mean Platelet Volume 7.6 Monocytes # 0.6 Monocytes % 7.7 Neutrophils # 5.7 Neutrophils % 73.0 Nucleated Red Blood Cells # 0.0 Nucleated Red Blood Cells % 0.0 Phosphorus Level 5.4 H Platelet Count 284 Potassium Level 4.6 Red Blood Count 3.79 L Red Cell Distribution Width 22.3 H Sodium Level 136 White Blood Count 7.8 Medications Medications Current Medications Acetaminophen (Tylenol Tab) 650 mg Q6H PRN PO PAIN LEVEL 1-3 OR FEVER; Start 08/13/16 at 17:30 Acetaminophen/ Hydrocodone Bitart ([place] (5/325)) 1 tab Q6H PRN PO MODERATE PAIN LEVEL 4-6 Last administered on 08/30/16at 02:54; Admin Dose 1 TAB; Start 08/13/16 at 17:30 Morphine Sulfate (morphine) 2 mg Q4H PRN IV SEVERE PAIN LEVEL 7-10 Last administered on 08/28/16at 16:43; Admin Dose 2 MG; Start 08/13/16 at 17:30 Docusate Sodium (Colace) 100 mg Q12H PRN PO CONSTIPATION; Start 08/13/16 at 17 :30 Famotidine (Pepcid) 20 mg Q12 PO Last administered on 08/30/16at 08:39; Admin Dose 20 MG; Start 08/13/16 at 21:00 Heparin Sodium (Porcine) (Heparin (5000 Units/0.5 ml)) 5,000 unit Q12 SC Last administered on 08/25/16at 21:01; Admin Dose 5,000 UNIT; Start 08/13/16 at 21: 00; Status Future Hold Allopurinol (Zyloprim) 100 mg DAILY PO Last administered on 08/30/16at 08:40; Admin Dose 100 MG; Start 08/14/16 at 09:00 Ascorbic Acid (Vitamin C) 500 mg DAILY PO Last administered on 08/30/16at 08:39 ; Admin Dose 500 MG; Start 08/13/16 at 18:00 Aspirin (Halfprin) 81 mg DAILY PO Last administered on 08/30/16at 08:39; Admin Dose 81 MG; Start 08/14/16 at 09:00 Atorvastatin Calcium (Lipitor) 10 mg QHS PO Last administered on 08/29/16 21: 57; Admin Dose 10 MG; Start 08/13/16 at 21:00 Cholecalciferol (Vitamin D) 1,000 unit DAILY PO Last administered on 08:39; Admin Dose 1,000 UNIT; Start 08/14/16 at 09:00 Ferrous Sulfate (Ferrous Sulfate (Ec)) 325 mg BID PO Last administered on 08/30 08:39; Admin Dose 325 MG; Start 08/13/16 at 21:00 Fish Oil (Fish Oil) 1,000 mg DAILY PO Last administered on 08/30/16 08:38; Admin Dose 1,000 MG; Start 08/14/16 at 09:00 Lactobacillus Acidoph/Bulgaricus (Floranex) 1 tab TID PO Last administered on 08/30/16 08:40; Admin Dose 1 TAB; Start 08/13/16 at 21:00 Metoprolol Tartrate (Lopressor) 12.5 mg BID PO Last administered on 08/30/16 08:42; Admin Dose 12.5 MG; Start 08/13/16 at 21:00 Pregabalin (Lyrica) 50 mg TID PO Last administered on 08/30/16 08:38; Admin Dose 50 MG; Start 08/13/16 at 21:00 Pyridoxine HCl (Vitamin B6) 100 mg DAILY PO Last administered on 08/30/16 08: 39; Admin Dose 100 MG; Start 08/14/16 at 09:00 Simethicone (Mylicon) 80 mg Q6H PRN PO INTESTINAL SPASMS/CRAMPING Last administered on 08/16/16 15:27; Admin Dose 80 MG; Start 08/13/16 at 17:30 Vitamin E (Vitamin E) 400 units DAILY PO Last administered on 08/30/16 08:38 ; Admin Dose 400 UNITS; Start 08/14/16 at 09:00 Fluoxetine HCl (Prozac) 20 mg DAILY PO Last administered on 08/30/16 08:38; Admin Dose 20 MG; Start 08/14/16 at 09:00 Miscellaneous Information 1 ea NOTE XX ; Start 08/13/16 at 18:00 Glucose (Glutose) 15 gm Q15M PRN PO DECREASED GLUCOSE; Start 08/13/16 at 18:00 Glucose (Glutose) 22.5 gm Q15M PRN PO DECREASED GLUCOSE; Start 08/13/16 at 18: 00 Dextrose (D50w Syringe) 25 ml Q15M PRN IV DECREASED GLUCOSE; Start 08/13/16 at 18:00 Dextrose (D50w Syringe) 50 ml Q15M PRN IV DECREASED GLUCOSE; Start 08/13/16 at 18:00 Glucagon (Glucagen) 1 mg Q15M PRN IM DECREASED GLUCOSE; Start 08/13/16 at 18: 00 Glucose (Glutose) 15 gm Q15M PRN BUCCAL DECREASED GLUCOSE; Start 08/13/16 at 18:00 Sodium Hypochlorite (Dakin'S (1/4 Strength)) 1 applic DAILY IRR Last administered on 08/30/16at 09:20; Admin Dose 1 APPLIC; Start 08/13/16 at 20:00 Acetaminophen/ Hydrocodone Bitart ([place] (5/325)) 2 tab Q6H PRN PO MODERATE PAIN LEVEL 4-6 Last administered on 08/29/16at 15:01; Admin Dose 2 TAB; Start 08/14/16 at 13:00 IV Flush (NS 10 ml) 10 ml PRN PRN IV IV PTOTOCOL; Start 08/14/16 at 17:00 Acetylcysteine (Nac) 600 mg BID PO Last administered on 08/30/16at 08:38; Admin Dose 600 MG; Start 08/16/16 at 21:00 Ondansetron HCl (Zofran Inj) 4 mg Q4H PRN IV NAUSEA AND/OR VOMITING; Start 08/16/16 at 12:30 Zolpidem Tartrate (Ambien) 10 mg HS PRN PO INSOMNIA Last administered on at 22:04; Admin Dose 10 MG; Start 08/16/16 at 21:00 Lorazepam (Ativan) 1 mg Q6 PRN PO ANXIETY Last administered on 08/25/16at 22:08 ; Admin Dose 1 MG; Start 08/18/16 at 14:30 Insulin Glargine (Lantus) 15 unit QHS SC Last administered on 08/29/16at 22:14 ; Admin Dose 15 UNIT; Start 08/19/16 at 21:00 Diagnostic Test (Pha) (Accucheck) 1 ea 02 XX Last administered on 08/30/16at 02 :47; Admin Dose 1 EA; Start 08/20/16 at 02:00 Phenol (Cepastat Lozenge) 1 lozenge Q1H PRN MT DRY MOUTH Last administered on 08/20/16at 21:28; Admin Dose 1 LOZENGE; Start 08/20/16 at 20:30 Lorazepam (Ativan) 1 mg HS PRN PO ANXIETY, HELP WITH SLEEP Last administered on 08/29/16at 22:04; Admin Dose 1 MG; Start 08/22/16 at 18:30 Bumetanide (Bumex) 2 mg BID@06,14 PO Last administered on 08/30/16at 08:38; Admin Dose 2 MG; Start 08/25/16 at 14:00 Diphenhydramine HCl (Benadryl) 25 mg Q6H PRN PO ITCHING Last administered on at 16:17; Admin Dose 25 MG; Start 08/26/16 at 20:30 Levofloxacin 500 mg 500 mg DAILY@06 PO Last administered on 08/30/16at 06:26; Admin Dose 500 MG; Start 08/28/16 at 06:00 Vancomycin HCl/ Sodium Chloride (Vancocin/NS) 150 ml @ 75 mls/hr Q24H IVPB Last administered on 08/29/16at 21:57; Admin Dose 75 MLS/HR; Start 08/29/16 at 21:00 DYAN FRANKLIN MD Aug 30, 2016 12:04
[2016-08-30] MEDS ORDERED: ALBUMIN HUMAN 5% 250 ML IV SCH (13:30)
--- NOTE | 2016-08-30 14:16 | CONS ---
Date/Time of Note Date/Time of Note DATE: 08/30/16 TIME: 14:15 Consult Date/Type/Reason Admit Date/Time Aug 13, 2016 at 16:30 Initial Consult Date 08/13/16 Type of Consultation: id Ordering Provider: KELLEN MEDINA MD Subjective alert, feels good, denies pain, no fevers, nad Objective Vital Signs Date Time Temp Pulse Resp B/P Pulse Ox O2 Delivery O2 Flow Rate FiO2 08/30/16 13:31 6.0 08/30/16 13:30 82 20 94 08/30/16 08:00 97.3 129/60 Nasal Cannula 08/30/16 04:55 40 Intake and Output 08/29/16 08/29/16 08/30/16 15:00 23:00 07:00 Intake Total 720 ml 390 ml Output Total 1000 ml 500 ml Balance -280 ml -110 ml Results/Medications Result Diagram: 08/30/16 0755 08/30/16 0755 Results 24 hrs Laboratory Tests Test 08/29/16 15:00 08/29/16 16:42 08/29/16 21:56 08/30/16 02:15 Vancomycin Level Trough 18.9 Bedside Glucose 162 215 120 Test 08/30/16 07:48 08/30/16 07:55 08/30/16 11:48 Bedside Glucose 100 120 Anion Gap 15 Basophils # 0.0 Basophils % 0.6 Blood Morphology Comment Blood Urea Nitrogen 70 H Calcium Level 8.2 L Carbon Dioxide Level 28 Chloride Level 98 Creatinine 1.65 H Eosinophils # 0.6 H Eosinophils % 8.0 H Glucose Level 87 Hematocrit 29.9 L Hemoglobin 9.5 L Lymphocytes # 0.8 Lymphocytes % 10.7 L Magnesium Level 2.0 Mean Corpuscular Hemoglobin 25.1 L Mean Corpuscular Hemoglobin Concent 31.9 L Mean Corpuscular Volume 78.7 L Mean Platelet Volume 7.6 Monocytes # 0.6 Monocytes % 7.7 Neutrophils # 5.7 Neutrophils % 73.0 Nucleated Red Blood Cells # 0.0 Nucleated Red Blood Cells % 0.0 Phosphorus Level 5.4 H Platelet Count 284 Potassium Level 4.6 Red Blood Count 3.79 L Red Cell Distribution Width 22.3 H Sodium Level 136 White Blood Count 7.8 Medications Current Medications Acetaminophen (Tylenol Tab) 650 mg Q6H PRN PO PAIN LEVEL 1-3 OR FEVER; Start 08/13/16 at 17:30 Acetaminophen/ Hydrocodone Bitart ([place] (5/325)) 1 tab Q6H PRN PO MODERATE PAIN LEVEL 4-6 Last administered on 08/30/16 02:54; Admin Dose 1 TAB; Start 08/13/16 at 17:30 Morphine Sulfate (morphine) 2 mg Q4H PRN IV SEVERE PAIN LEVEL 7-10 Last administered on 08/28/16 16:43; Admin Dose 2 MG; Start 08/13/16 at 17:30 Docusate Sodium (Colace) 100 mg Q12H PRN PO CONSTIPATION; Start 08/13/16 at 17 :30 Famotidine (Pepcid) 20 mg Q12 PO Last administered on 08/30/16 08:39; Admin Dose 20 MG; Start 08/13/16 at 21:00 Heparin Sodium (Porcine) (Heparin (5000 Units/0.5 ml)) 5,000 unit Q12 SC Last administered on 08/25/16 21:01; Admin Dose 5,000 UNIT; Start 08/13/16 at 21: 00; Status Future Hold Allopurinol (Zyloprim) 100 mg DAILY PO Last administered on 08/30/16 08:40; Admin Dose 100 MG; Start 08/14/16 at 09:00 Ascorbic Acid (Vitamin C) 500 mg DAILY PO Last administered on 08/30/16 08:39 ; Admin Dose 500 MG; Start 08/13/16 at 18:00 Aspirin (Halfprin) 81 mg DAILY PO Last administered on 08/30/16 08:39; Admin Dose 81 MG; Start 08/14/16 at 09:00 Atorvastatin Calcium (Lipitor) 10 mg QHS PO Last administered on 08/29/16 21: 57; Admin Dose 10 MG; Start 08/13/16 at 21:00 Cholecalciferol (Vitamin D) 1,000 unit DAILY PO Last administered on 08:39; Admin Dose 1,000 UNIT; Start 08/14/16 at 09:00 Ferrous Sulfate (Ferrous Sulfate (Ec)) 325 mg BID PO Last administered on 08/30 08:39; Admin Dose 325 MG; Start 08/13/16 at 21:00 Fish Oil (Fish Oil) 1,000 mg DAILY PO Last administered on 12/15/16at 08:38; Admin Dose 1,000 MG; Start 08/14/16 at 09:00 Lactobacillus Acidoph/Bulgaricus (Floranex) 1 tab TID PO Last administered on 08/30/16at 13:05; Admin Dose 1 TAB; Start 08/13/16 at 21:00 Metoprolol Tartrate (Lopressor) 12.5 mg BID PO Last administered on 08/30/16at 08:42; Admin Dose 12.5 MG; Start 08/13/16 at 21:00 Pregabalin (Lyrica) 50 mg TID PO Last administered on 08/30/16at 13:05; Admin Dose 50 MG; Start 08/13/16 at 21:00 Pyridoxine HCl (Vitamin B6) 100 mg DAILY PO Last administered on 08/30/16at 08: 39; Admin Dose 100 MG; Start 08/14/16 at 09:00 Simethicone (Mylicon) 80 mg Q6H PRN PO INTESTINAL SPASMS/CRAMPING Last administered on 08/16/16at 15:27; Admin Dose 80 MG; Start 08/13/16 at 17:30 Vitamin E (Vitamin E) 400 units DAILY PO Last administered on 08/30/16at 08:38 ; Admin Dose 400 UNITS; Start 08/14/16 at 09:00 Fluoxetine HCl (Prozac) 20 mg DAILY PO Last administered on 08/30/16at 08:38; Admin Dose 20 MG; Start 08/14/16 at 09:00 Miscellaneous Information 1 ea NOTE XX ; Start 08/13/16 at 18:00 Glucose (Glutose) 15 gm Q15M PRN PO DECREASED GLUCOSE; Start 08/13/16 at 18:00 Glucose (Glutose) 22.5 gm Q15M PRN PO DECREASED GLUCOSE; Start 08/13/16 at 18: 00 Dextrose (D50w Syringe) 25 ml Q15M PRN IV DECREASED GLUCOSE; Start 08/13/16 at 18:00 Dextrose (D50w Syringe) 50 ml Q15M PRN IV DECREASED GLUCOSE; Start 08/13/16 at 18:00 Glucagon (Glucagen) 1 mg Q15M PRN IM DECREASED GLUCOSE; Start 08/13/16 at 18: 00 Glucose (Glutose) 15 gm Q15M PRN BUCCAL DECREASED GLUCOSE; Start 08/13/16 at 18:00 Sodium Hypochlorite (Dakin'S (1/4 Strength)) 1 applic DAILY IRR Last administered on 08/30/16at 09:20; Admin Dose 1 APPLIC; Start 08/13/16 at 20:00 Acetaminophen/ Hydrocodone Bitart ([place] (5/325)) 2 tab Q6H PRN PO MODERATE PAIN LEVEL 4-6 Last administered on 08/30/16at 13:05; Admin Dose 2 TAB; Start 08/14/16 at 13:00 IV Flush (NS 10 ml) 10 ml PRN PRN IV IV PTOTOCOL; Start 08/14/16 at 17:00 Acetylcysteine (Nac) 600 mg BID PO Last administered on 08/30/16at 08:38; Admin Dose 600 MG; Start 08/16/16 at 21:00 Ondansetron HCl (Zofran Inj) 4 mg Q4H PRN IV NAUSEA AND/OR VOMITING; Start 08/16/16 at 12:30 Zolpidem Tartrate (Ambien) 10 mg HS PRN PO INSOMNIA Last administered on at 22:04; Admin Dose 10 MG; Start 08/16/16 at 21:00 Lorazepam (Ativan) 1 mg Q6 PRN PO ANXIETY Last administered on 08/25/16at 22:08 ; Admin Dose 1 MG; Start 08/18/16 at 14:30 Insulin Glargine (Lantus) 15 unit QHS SC Last administered on 08/29/16at 22:14 ; Admin Dose 15 UNIT; Start 08/19/16 at 21:00 Diagnostic Test (Pha) (Accucheck) 1 ea 02 XX Last administered on 08/30/16at 02 :47; Admin Dose 1 EA; Start 08/20/16 at 02:00 Phenol (Cepastat Lozenge) 1 lozenge Q1H PRN MT DRY MOUTH Last administered on 08/20/16at 21:28; Admin Dose 1 LOZENGE; Start 08/20/16 at 20:30 Lorazepam (Ativan) 1 mg HS PRN PO ANXIETY, HELP WITH SLEEP Last administered on 08/29/16at 22:04; Admin Dose 1 MG; Start 08/22/16 at 18:30 Bumetanide (Bumex) 2 mg BID@06,14 PO Last administered on 08/30/16at 08:38; Admin Dose 2 MG; Start 08/25/16 at 14:00 Diphenhydramine HCl (Benadryl) 25 mg Q6H PRN PO ITCHING Last administered on at 16:17; Admin Dose 25 MG; Start 08/26/16 at 20:30 Levofloxacin 500 mg 500 mg DAILY@06 PO Last administered on 08/30/16at 06:26; Admin Dose 500 MG; Start 08/28/16 at 06:00 Vancomycin HCl 750 mg/Sodium Chloride 150 ml @ 75 mls/hr Q24H IVPB Last administered on 08/29/16at 21:57; Admin Dose 75 MLS/HR; Start 08/29/16 at 21:00 Albumin Human 250 ml @ 250 mls/hr ONCE IV ; Start 08/30/16 at 13:30; Stop at 14:29 Assessment/Plan Chief Complaint/Hosp Course MICROBIOLOGY: 08/13/16 Bld cx+ KENAN DIAGNOSTICS: MRI revealed cellulitis and osteomyelitis of the left first toe. ANTIMICROBIALS: Vancomycin Levaquin Urinalysis on admission was negative. PHYSICAL EXAMINATION: GENERAL: Obese, well-developed, middle-aged white man who is sitting in a chair. Patient is in no distress. HEENT: Head atraumatic, normocephalic. Sclerae anicteric. Buccal mucosa dry. NECK: Supple, trachea midline. CHEST: Rise symmetrical. Breath sounds clear, diminished to bases. HEART: S1, S2. ABDOMEN: Soft, bowel tones present. EXTREMITIES: Bilateral Patrick wraps. ASSESSMENT: 1. Bilateral lower extremities acute on chronic cellulitis with chronic venous stasis and left toe osteomyelitis. 2. Systemic inflammatory response syndrome 2 to above. 3. S/p septicemia==>KENAN 4. Questionable pneumonia as per chest x-ray. 5. Morbid obesity. 6. Atrial fibrillation, chronic. 7. Chronic kidney disease. 8. PAD==> s/p angiogram PLAN: Remains stable, continue abx, card/renal/podiatry rec-s, complete 6 weeks abx, pending acute rehab DW staff DW patient Problems: JAMEY VAZQUEZ NP Aug 30, 2016 14:16
--- NOTE | 2016-08-30 14:45 | PN ---
Date/Time of Note Date/Time of Note DATE: 08/30/16 TIME: 14:42 Assessment/Plan VTE Prophylaxis VTE Prophylaxis Intervention: heparin Lines/Catheters IV [facility] Type [facility] PICC Line Central line still needed: Yes Urinary Cath still in place: No Assessment/Plan Chief Complaint/Hosp Course 1. Left great toe osteomyelitis. Continue antibiotics as per infectious disease. Status post evaluation by vascular surgery. 2. Acute on chronic respiratory failure, hypoxic and hypercapnic. Continue noninvasive positive pressure ventilation. Continue inhaled bronchodilators. 3. Pulmonary hypertension. Continue supplemental oxygen. 4. Acute on chronic kidney disease. Renally dose medications. Nephrology following. 5. Congestive heart failure exacerbation. Acute on chronic diastolic dysfunction. Continue diuretics as per nephrology. 6. Type 2 diabetes mellitus. Hemoglobin A1c 5.8. Continue carbohydrate controlled diet. Continue sliding scale insulin. 7. Essential hypertension. Continue antihypertensives. 8. History of atrial fibrillation. Currently in sinus rhythm. 9. Dyslipidemia. Continue statins. 10. Gout. Continue allopurinol. 11. Major depression. Continue selective serotonin reuptake inhibitors. 12. Morbid obesity with BMI of 42.5 kg/meter squared. Weight reduction advised. 13. Fluid, electrolytes, and nutrition. Renal, carbohydrate controlled diet. 14. Deep vein thrombosis prophylaxis. Subcutaneous heparin. 15. Gastrointestinal prophylaxis. Histamine 2 blockers. PLAN: Await ARU placement if insurance approves. The patient is medically stable to be discharged to acute rehabilitation unit once a bed is available. Case discussed with Dr. Pruitt. Called the patient 's insurance @ and left a message for peer review on 08/29/2016. Reference # is [id number]. I received a call from the patient's insurance company on 08/30/2016 at 8040 5 AM. As per the conversation with the computer help desk representative, the doctor environmental management specialist Dr. Josie Lees was going call me back between 11 AM and 1 PM [place] standard time on 08/30/2016. As of now, I have not received any call from Dr. Lees yet. Problems: Subjective 24 Hr Interval Summary Free Text/Dictation Vital signs stable. Patient remains afebrile. Exam/Review of Systems Vital Signs Vitals Vital Signs Date Time Temp Pulse Resp B/P Pulse Ox O2 Delivery O2 Flow Rate FiO2 08/30/16 13:31 6.0 08/30/16 13:30 82 20 94 08/30/16 08:00 97.3 129/60 Nasal Cannula 08/30/16 04:55 40 Intake and Output 08/29/16 08/29/16 08/30/16 15:00 23:00 07:00 Intake Total 720 ml 390 ml Output Total 1000 ml 500 ml Balance -280 ml -110 ml Exam GENERAL: This is a morbidly obese male sitting in a chair in mild respiratory distress with oxygen via nasal cannula. HEENT: Head normocephalic and atraumatic. Eyes: Anicteric sclerae. Conjunctivae clear. ENT: Nasal septum. Oral mucosa is dry. NECK: Supple. RESPIRATORY: Bilaterally diminished breath sounds. Minimal use of accessory muscles of respiration. On supplemental oxygen. CARDIAC: Regular rate and rhythm. ABDOMEN: Soft, nontender, but protuberant. Bowel sounds hypoactive in all 4 quadrants. GENITOURINARY: Deferred. EXTREMITIES: Bilateral lower extremity 2+ edema. SKIN: Maculopapular rashes on B/L upper extremities. Results Result Diagram: 08/30/16 0755 08/30/16 0755 Results 24 hrs Laboratory Tests Test 08/29/16 15:00 08/29/16 16:42 08/29/16 21:56 08/30/16 02:15 Vancomycin Level Trough 18.9 Bedside Glucose 162 215 120 Test 08/30/16 07:48 08/30/16 07:55 08/30/16 11:48 Bedside Glucose 100 120 Anion Gap 15 Basophils # 0.0 Basophils % 0.6 Blood Morphology Comment Blood Urea Nitrogen 70 H Calcium Level 8.2 L Carbon Dioxide Level 28 Chloride Level 98 Creatinine 1.65 H Eosinophils # 0.6 H Eosinophils % 8.0 H Glucose Level 87 Hematocrit 29.9 L Hemoglobin 9.5 L Lymphocytes # 0.8 Lymphocytes % 10.7 L Magnesium Level 2.0 Mean Corpuscular Hemoglobin 25.1 L Mean Corpuscular Hemoglobin Concent 31.9 L Mean Corpuscular Volume 78.7 L Mean Platelet Volume 7.6 Monocytes # 0.6 Monocytes % 7.7 Neutrophils # 5.7 Neutrophils % 73.0 Nucleated Red Blood Cells # 0.0 Nucleated Red Blood Cells % 0.0 Phosphorus Level 5.4 H Platelet Count 284 Potassium Level 4.6 Red Blood Count 3.79 L Red Cell Distribution Width 22.3 H Sodium Level 136 White Blood Count 7.8 Medications Medications Current Medications Acetaminophen (Tylenol Tab) 650 mg Q6H PRN PO PAIN LEVEL 1-3 OR FEVER; Start 08/13/16 at 17:30 Acetaminophen/ Hydrocodone Bitart ([place] (5/325)) 1 tab Q6H PRN PO MODERATE PAIN LEVEL 4-6 Last administered on 08/30/16 02:54; Admin Dose 1 TAB; Start 08/13/16 at 17:30 Morphine Sulfate (morphine) 2 mg Q4H PRN IV SEVERE PAIN LEVEL 7-10 Last administered on 08/28/16 16:43; Admin Dose 2 MG; Start 08/13/16 at 17:30 Docusate Sodium (Colace) 100 mg Q12H PRN PO CONSTIPATION; Start 08/13/16 at 17 :30 Famotidine (Pepcid) 20 mg Q12 PO Last administered on 08/30/16 08:39; Admin Dose 20 MG; Start 08/13/16 at 21:00 Heparin Sodium (Porcine) (Heparin (5000 Units/0.5 ml)) 5,000 unit Q12 SC Last administered on 08/25/16 21:01; Admin Dose 5,000 UNIT; Start 08/13/16 at 21: 00; Status Future Hold Allopurinol (Zyloprim) 100 mg DAILY PO Last administered on 08/30/16 08:40; Admin Dose 100 MG; Start 08/14/16 at 09:00 Ascorbic Acid (Vitamin C) 500 mg DAILY PO Last administered on 08/30/16 08:39 ; Admin Dose 500 MG; Start 08/13/16 at 18:00 Aspirin (Halfprin) 81 mg DAILY PO Last administered on 08/30/16 08:39; Admin Dose 81 MG; Start 08/14/16 at 09:00 Atorvastatin Calcium (Lipitor) 10 mg QHS PO Last administered on 08/29/16 21: 57; Admin Dose 10 MG; Start 08/13/16 at 21:00 Cholecalciferol (Vitamin D) 1,000 unit DAILY PO Last administered on 08:39; Admin Dose 1,000 UNIT; Start 08/14/16 at 09:00 Ferrous Sulfate (Ferrous Sulfate (Ec)) 325 mg BID PO Last administered on 12/15 /16at 08:39; Admin Dose 325 MG; Start 08/13/16 at 21:00 Fish Oil (Fish Oil) 1,000 mg DAILY PO Last administered on 08/30/16at 08:38; Admin Dose 1,000 MG; Start 08/14/16 at 09:00 Lactobacillus Acidoph/Bulgaricus (Floranex) 1 tab TID PO Last administered on 08/30/16at 13:05; Admin Dose 1 TAB; Start 08/13/16 at 21:00 Metoprolol Tartrate (Lopressor) 12.5 mg BID PO Last administered on 08/30/16at 08:42; Admin Dose 12.5 MG; Start 08/13/16 at 21:00 Pregabalin (Lyrica) 50 mg TID PO Last administered on 08/30/16at 13:05; Admin Dose 50 MG; Start 08/13/16 at 21:00 Pyridoxine HCl (Vitamin B6) 100 mg DAILY PO Last administered on 08/30/16at 08: 39; Admin Dose 100 MG; Start 08/14/16 at 09:00 Simethicone (Mylicon) 80 mg Q6H PRN PO INTESTINAL SPASMS/CRAMPING Last administered on 08/16/16at 15:27; Admin Dose 80 MG; Start 08/13/16 at 17:30 Vitamin E (Vitamin E) 400 units DAILY PO Last administered on 08/30/16at 08:38 ; Admin Dose 400 UNITS; Start 08/14/16 at 09:00 Fluoxetine HCl (Prozac) 20 mg DAILY PO Last administered on 08/30/16at 08:38; Admin Dose 20 MG; Start 08/14/16 at 09:00 Miscellaneous Information 1 ea NOTE XX ; Start 08/13/16 at 18:00 Glucose (Glutose) 15 gm Q15M PRN PO DECREASED GLUCOSE; Start 08/13/16 at 18:00 Glucose (Glutose) 22.5 gm Q15M PRN PO DECREASED GLUCOSE; Start 08/13/16 at 18: 00 Dextrose (D50w Syringe) 25 ml Q15M PRN IV DECREASED GLUCOSE; Start 08/13/16 at 18:00 Dextrose (D50w Syringe) 50 ml Q15M PRN IV DECREASED GLUCOSE; Start 08/13/16 at 18:00 Glucagon (Glucagen) 1 mg Q15M PRN IM DECREASED GLUCOSE; Start 08/13/16 at 18: 00 Glucose (Glutose) 15 gm Q15M PRN BUCCAL DECREASED GLUCOSE; Start 08/13/16 at 18:00 Sodium Hypochlorite (Dakin'S (1/4 Strength)) 1 applic DAILY IRR Last administered on 08/30/16at 09:20; Admin Dose 1 APPLIC; Start 08/13/16 at 20:00 Acetaminophen/ Hydrocodone Bitart ([place] (5/325)) 2 tab Q6H PRN PO MODERATE PAIN LEVEL 4-6 Last administered on 08/30/16at 13:05; Admin Dose 2 TAB; Start 08/14/16 at 13:00 IV Flush (NS 10 ml) 10 ml PRN PRN IV IV PTOTOCOL; Start 08/14/16 at 17:00 Acetylcysteine (Nac) 600 mg BID PO Last administered on 08/30/16at 08:38; Admin Dose 600 MG; Start 08/16/16 at 21:00 Ondansetron HCl (Zofran Inj) 4 mg Q4H PRN IV NAUSEA AND/OR VOMITING; Start 08/16/16 at 12:30 Zolpidem Tartrate (Ambien) 10 mg HS PRN PO INSOMNIA Last administered on 22:04; Admin Dose 10 MG; Start 08/16/16 at 21:00 Lorazepam (Ativan) 1 mg Q6 PRN PO ANXIETY Last administered on 08/25/16at 22:08 ; Admin Dose 1 MG; Start 08/18/16 at 14:30 Insulin Glargine (Lantus) 15 unit QHS SC Last administered on 08/29/16 22:14 ; Admin Dose 15 UNIT; Start 08/19/16 at 21:00 Diagnostic Test (Pha) (Accucheck) 1 ea 02 XX Last administered on 08/30/16 02 :47; Admin Dose 1 EA; Start 08/20/16 at 02:00 Phenol (Cepastat Lozenge) 1 lozenge Q1H PRN MT DRY MOUTH Last administered on 08/20/16 21:28; Admin Dose 1 LOZENGE; Start 08/20/16 at 20:30 Lorazepam (Ativan) 1 mg HS PRN PO ANXIETY, HELP WITH SLEEP Last administered on 08/29/16 22:04; Admin Dose 1 MG; Start 08/22/16 at 18:30 Bumetanide (Bumex) 2 mg BID@06,14 PO Last administered on 08/30/16at 08:38; Admin Dose 2 MG; Start 08/25/16 at 14:00 Diphenhydramine HCl (Benadryl) 25 mg Q6H PRN PO ITCHING Last administered on at 16:17; Admin Dose 25 MG; Start 08/26/16 at 20:30 Levofloxacin 500 mg 500 mg DAILY@06 PO Last administered on 08/30/16at 06:26; Admin Dose 500 MG; Start 08/28/16 at 06:00 Vancomycin HCl/ Sodium Chloride (Vancocin/NS) 150 ml @ 75 mls/hr Q24H IVPB Last administered on 08/29/16at 21:57; Admin Dose 75 MLS/HR; Start 08/29/16 at 21:00 GIO BISHOP NP Aug 30, 2016 14:44
[2016-08-30] MEDS: morphine 2 MG INJ IV PRN (18:13)
[2016-08-30 20:00] VITALS: BP 125/64; PULSE 76; RESP 18
[2016-08-30] MEDS: VANCOMYCIN 750 MG in SOD CHLORIDE 0.9% 150 ML IVPB SCH (21:42)
[2016-08-30] MEDS: ATORVASTATIN 10 MG TAB PO SCH (21:43)
[2016-08-30] MEDS: INSULIN GLARGINE [LANtus] 3 ML PEN SC SCH (21:54)
[2016-08-30 22:42] VITALS: PULSE 75
[2016-08-30] MEDS: ZOLPIDEM 5 MG TAB PO PRN (23:07)
[2016-08-30] MEDS: LORAZEPAM 1 MG TAB PO PRN (23:07)
[2016-08-31] MEDS: ALBUTEROL/IPRATROPIUM (NEB) 3 ML AMP HHN SCH ×5 (01:09→19:43)
[2016-08-31] MEDS: ACCUCHECK XX SCH (01:14)
[2016-08-31 03:00] VITALS: PULSE 78
[2016-08-31 06:07] VITALS: PULSE 79
[2016-08-31] MEDS: BUMETANIDE 1 MG TAB PO SCH (06:20)
[2016-08-31] MEDS: LEVOFLOXACIN 500 MG TAB PO SCH (06:20)
[2016-08-31 07:35] LABS: BASOPHILS % 0.5 % (0.0-2.0); EOSINOPHILS # 0.6 10^3/ul (0.0-0.5); EOSINOPHILS % 7.1 % (0.0-7.0); HEMATOCRIT 29.1 % (42.0-52.0); HEMOGLOBIN 9.3 g/dl (14.0-18.0); LYMPHOCYTES # 0.8 10^3/ul (0.8-2.9); LYMPHOCYTES % 10.3 % (15.0-51.0); MEAN CORPUSCULAR HEMOGLOBIN 25.2 pg (29.0-33.0); MEAN CORPUSCULAR HGB CONC 31.8 g/dl (32.0-37.0); MEAN CORPUSCULAR VOLUME 79.1 fl (82.0-101.0); MEAN PLATELET VOLUME 8.3 fl (7.4-10.4); MONOCYTE # 0.7 10^3/ul (0.3-0.9); MONOCYTES % 9.1 % (0.0-11.0); PLATELET COUNT 264 10^3/UL (140-440); RED BLOOD COUNT 3.68 10^6/ul (4.70-6.10); RED CELL DISTRIBUTION WIDTH 22.2 % (11.5-14.5); UNCORRECTED WBC 8.2 10^3/ul (4.8-10.8); WHITE BLOOD COUNT 8.2 10^3/ul (4.8-10.8)
[2016-08-31 07:48] LABS: POTASSIUM 4.5 mmol/L (3.5-5.1)
[2016-08-31 07:51] LABS: CREATININE 1.73 mg/dl (0.61-1.24)
[2016-08-31 07:52] LABS: CALCIUM 8.2 mg/dl (8.4-10.2)
[2016-08-31 07:54] LABS: CONDITION 1; LH ANALYZER COMMENTS 1
[2016-08-31 08:00] VITALS: BP 139/76; PULSE 81; RESP 22
[2016-08-31] MEDS: INSULIN ASPART [NOVOLOG] 3 ML PEN SC SCH ×7 (08:15→22:11)
[2016-08-31] MEDS: SODIUM HYPOCHLORITE 0.125% 473 ML BTL IRR SCH (09:00)
[2016-08-31] MEDS: FISH OIL 1,000 MG CAP PO SCH (09:13)
[2016-08-31] MEDS: PREGABALIN 25 MG CAP PO SCH ×3 (09:13→22:07)
[2016-08-31] MEDS: CHOLECALCIFEROL 1,000 UNIT TAB PO SCH (09:14)
[2016-08-31] MEDS: ALLOPURINOL 100 MG TAB PO SCH (09:14)
[2016-08-31] MEDS: ACETYLCYSTEINE 600 MG CAP PO SCH ×2 (09:14→22:07)
[2016-08-31] MEDS: ASCORBIC ACID 500 MG TAB PO SCH (09:14)
[2016-08-31] MEDS: FERROUS SULFATE (EC) 325 MG TAB PO SCH ×2 (09:14→22:07)
[2016-08-31] MEDS: ASPIRIN (EC) 81 MG TAB PO SCH (09:14)
[2016-08-31] MEDS: FLUOXETINE 20 MG CAP PO SCH (09:14)
[2016-08-31] MEDS: FAMOTIDINE 20 MG TAB PO SCH ×2 (09:14→22:08)
[2016-08-31] MEDS: PYRIDOXINE 50 MG TAB PO SCH (09:14)
[2016-08-31] MEDS: LACTOBACILLUS CHEW TAB PO SCH ×3 (09:14→22:07)
[2016-08-31] MEDS: VITAMIN E 400 UNITS CAP PO SCH (09:14)
[2016-08-31] MEDS: METOPROLOL 25 MG TAB PO SCH ×2 (09:15→22:10)
--- NOTE | 2016-08-31 13:05 | CONS ---
Date/Time of Note Date/Time of Note DATE: 08/31/16 TIME: 13:05 Assessment/Plan Assessment/Plan Additional Assessment/Plan 60 yo Male with 1) LORNA on CKD 2) Left toe cellulits OM 3) HTN, Chronic 4) Diastolic Heart Failure, Chronic 5) Pulm HTN 6) Anema, Chronic 7) RLL Patchy Consolidation 8) Anasarca Cont to monitor renal function on diuretic Dose Bumex 2mg IV BID, Will give another dose of Albumin. Check CXR and US Abdomen for Ascites, Possibly may need Paracentesis Urine studies reviewed Cont 1.5L Fluid restriction Daily weights. If patient discharged to Rehab, will follow at ARU.. Consultation Date/Type/Reason Admit Date/Time Aug 13, 2016 at 16:30 Initial Consult Date 08/13/16 Type of Consultation: Nephrology Referring Provider: KELLEN MEDINA MD 24 HR Interval Summary Free Text/Dictation Pt is more SOB today, Abdominal distension. Feels like there is alot more fluid in abdomen. Constitutional: requiring O2 Exam/Review of Systems Vital Signs Vitals Vital Signs Date Time Temp Pulse Resp B/P Pulse Ox O2 Delivery O2 Flow Rate FiO2 08/31/16 08:00 98.0 81 22 139/76 96 Nasal Cannula 6.0 08/31/16 06:07 40 Intake and Output 08/30/16 08/30/16 08/31/16 15:00 23:00 07:00 Intake Total 730 ml 750 ml Output Total 500 ml 300 ml Balance 230 ml 450 ml Exam Constitutional: alert, No distress ENMT: mucosa pink and moist Respiratory: crackles/rales, diminished breath sounds, No labored breathing Cardiovascular: edema, regular rate and rhythm Gastrointestinal: ascites, soft 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: GEOLOGY FACULTY MEMBER 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, nl mental status Skin: No diaphoresis Results Result Diagram: 08/31/16 0630 08/31/16 0715 Results 24 hrs Laboratory Tests Test 08/30/16 16:36 08/30/16 20:48 08/31/16 06:30 08/31/16 07:15 Bedside Glucose 127 157 Basophils # 0.0 Basophils % 0.5 Blood Morphology Comment Eosinophils # 0.6 H Eosinophils % 7.1 H Hematocrit 29.1 L Hemoglobin 9.3 L Lymphocytes # 0.8 Lymphocytes % 10.3 L Magnesium Level 2.0 Mean Corpuscular Hemoglobin 25.2 L Mean Corpuscular Hemoglobin Concent 31.8 L Mean Corpuscular Volume 79.1 L Mean Platelet Volume 8.3 Monocytes # 0.7 Monocytes % 9.1 Neutrophils # 6.0 Neutrophils % 73.0 Nucleated Red Blood Cells # 0.0 Nucleated Red Blood Cells % 0.0 Phosphorus Level 6.0 H Platelet Count 264 Red Blood Count 3.68 L Red Cell Distribution Width 22.2 H White Blood Count 8.2 Anion Gap 16 Blood Urea Nitrogen 73 H Calcium Level 8.2 L Carbon Dioxide Level 28 Chloride Level 97 Creatinine 1.73 H Glucose Level 114 Potassium Level 4.5 Sodium Level 136 Test 08/31/16 07:40 08/31/16 11:15 Bedside Glucose 147 114 Medications Medications Current Medications Acetaminophen (Tylenol Tab) 650 mg Q6H PRN PO PAIN LEVEL 1-3 OR FEVER; Start 08/13/16 at 17:30 Acetaminophen/ Hydrocodone Bitart ([place] (5/325)) 1 tab Q6H PRN PO MODERATE PAIN LEVEL 4-6 Last administered on 08/30/16at 02:54; Admin Dose 1 TAB; Start 08/13/16 at 17:30 Morphine Sulfate (morphine) 2 mg Q4H PRN IV SEVERE PAIN LEVEL 7-10 Last administered on 08/30/16at 18:13; Admin Dose 2 MG; Start 08/13/16 at 17:30 Docusate Sodium (Colace) 100 mg Q12H PRN PO CONSTIPATION; Start 08/13/16 at 17 :30 Famotidine (Pepcid) 20 mg Q12 PO Last administered on 08/31/16at 09:14; Admin Dose 20 MG; Start 08/13/16 at 21:00 Heparin Sodium (Porcine) (Heparin (5000 Units/0.5 ml)) 5,000 unit Q12 SC Last administered on 08/25/16at 21:01; Admin Dose 5,000 UNIT; Start 08/13/16 at 21: 00; Status Future Hold Allopurinol (Zyloprim) 100 mg DAILY PO Last administered on 08/31/16at 09:14; Admin Dose 100 MG; Start 08/14/16 at 09:00 Ascorbic Acid (Vitamin C) 500 mg DAILY PO Last administered on 08/31/16at 09:14 ; Admin Dose 500 MG; Start 08/13/16 at 18:00 Aspirin (Halfprin) 81 mg DAILY PO Last administered on 08/31/16 09:14; Admin Dose 81 MG; Start 08/14/16 at 09:00 Atorvastatin Calcium (Lipitor) 10 mg QHS PO Last administered on 08/30/16 21: 43; Admin Dose 10 MG; Start 08/13/16 at 21:00 Cholecalciferol (Vitamin D) 1,000 unit DAILY PO Last administered on 09:14; Admin Dose 1,000 UNIT; Start 08/14/16 at 09:00 Ferrous Sulfate (Ferrous Sulfate (Ec)) 325 mg BID PO Last administered on 08/31 09:14; Admin Dose 325 MG; Start 08/13/16 at 21:00 Fish Oil (Fish Oil) 1,000 mg DAILY PO Last administered on 08/31/16 09:13; Admin Dose 1,000 MG; Start 08/14/16 at 09:00 Lactobacillus Acidoph/Bulgaricus (Floranex) 1 tab TID PO Last administered on 08/31/16 12:23; Admin Dose 1 TAB; Start 08/13/16 at 21:00 Metoprolol Tartrate (Lopressor) 12.5 mg BID PO Last administered on 08/31/16 09:15; Admin Dose 12.5 MG; Start 08/13/16 at 21:00 Pregabalin (Lyrica) 50 mg TID PO Last administered on 08/31/16 12:23; Admin Dose 50 MG; Start 08/13/16 at 21:00 Pyridoxine HCl (Vitamin B6) 100 mg DAILY PO Last administered on 08/31/16 09: 14; Admin Dose 100 MG; Start 08/14/16 at 09:00 Simethicone (Mylicon) 80 mg Q6H PRN PO INTESTINAL SPASMS/CRAMPING Last administered on 08/16/16 15:27; Admin Dose 80 MG; Start 08/13/16 at 17:30 Vitamin E (Vitamin E) 400 units DAILY PO Last administered on 08/31/16 09:14 ; Admin Dose 400 UNITS; Start 08/14/16 at 09:00 Fluoxetine HCl (Prozac) 20 mg DAILY PO Last administered on 08/31/16 09:14; Admin Dose 20 MG; Start 08/14/16 at 09:00 Miscellaneous Information 1 ea NOTE XX ; Start 08/13/16 at 18:00 Glucose (Glutose) 15 gm Q15M PRN PO DECREASED GLUCOSE; Start 08/13/16 at 18:00 Glucose (Glutose) 22.5 gm Q15M PRN PO DECREASED GLUCOSE; Start 08/13/16 at 18: 00 Dextrose (D50w Syringe) 25 ml Q15M PRN IV DECREASED GLUCOSE; Start 08/13/16 at 18:00 Dextrose (D50w Syringe) 50 ml Q15M PRN IV DECREASED GLUCOSE; Start 08/13/16 at 18:00 Glucagon (Glucagen) 1 mg Q15M PRN IM DECREASED GLUCOSE; Start 08/13/16 at 18: 00 Glucose (Glutose) 15 gm Q15M PRN BUCCAL DECREASED GLUCOSE; Start 08/13/16 at 18:00 Sodium Hypochlorite (Dakin'S (1/4 Strength)) 1 applic DAILY IRR Last administered on 08/31/16at 09:00; Admin Dose 1 APPLIC; Start 08/13/16 at 20:00 Acetaminophen/ Hydrocodone Bitart ([place] (5/325)) 2 tab Q6H PRN PO MODERATE PAIN LEVEL 4-6 Last administered on 08/30/16at 21:51; Admin Dose 2 TAB; Start 08/14/16 at 13:00 IV Flush (NS 10 ml) 10 ml PRN PRN IV IV PTOTOCOL; Start 08/14/16 at 17:00 Acetylcysteine (Nac) 600 mg BID PO Last administered on 08/31/16at 09:14; Admin Dose 600 MG; Start 08/16/16 at 21:00 Ondansetron HCl (Zofran Inj) 4 mg Q4H PRN IV NAUSEA AND/OR VOMITING; Start 08/16/16 at 12:30 Zolpidem Tartrate (Ambien) 10 mg HS PRN PO INSOMNIA Last administered on at 23:07; Admin Dose 10 MG; Start 08/16/16 at 21:00 Lorazepam (Ativan) 1 mg Q6 PRN PO ANXIETY Last administered on 08/25/16at 22:08 ; Admin Dose 1 MG; Start 08/18/16 at 14:30 Insulin Glargine (Lantus) 15 unit QHS SC Last administered on 08/30/16 21:54 ; Admin Dose 15 UNIT; Start 08/19/16 at 21:00 Diagnostic Test (Pha) (Accucheck) 1 ea 02 XX Last administered on 08/30/16 02 :47; Admin Dose 1 EA; Start 08/20/16 at 02:00 Phenol (Cepastat Lozenge) 1 lozenge Q1H PRN MT DRY MOUTH Last administered on 08/20/16 21:28; Admin Dose 1 LOZENGE; Start 08/20/16 at 20:30 Lorazepam (Ativan) 1 mg HS PRN PO ANXIETY, HELP WITH SLEEP Last administered on 08/30/16 23:07; Admin Dose 1 MG; Start 08/22/16 at 18:30 Bumetanide (Bumex) 2 mg BID@06,14 PO Last administered on 08/31/16 06:20; Admin Dose 2 MG; Start 08/25/16 at 14:00 Diphenhydramine HCl (Benadryl) 25 mg Q6H PRN PO ITCHING Last administered on at 16:17; Admin Dose 25 MG; Start 08/26/16 at 20:30 Levofloxacin 500 mg 500 mg DAILY@06 PO Last administered on 08/31/16 06:20; Admin Dose 500 MG; Start 08/28/16 at 06:00 Vancomycin HCl/ Sodium Chloride (Vancocin/NS) 150 ml @ 75 mls/hr Q24H IVPB Last administered on 08/30/16at 21:42; Admin Dose 75 MLS/HR; Start 08/29/16 at 21:00 DYAN FRANKLIN MD Aug 31, 2016 13:05
[2016-08-31] MEDS: HYDROCODONE/APAP (5/325) TAB PO PRN (13:36)
[2016-08-31] MEDS ORDERED: ALBUMIN HUMAN 25% 50 ML IV ONE (14:00)
--- NOTE | 2016-08-31 14:23 | CONS ---
Date/Time of Note Date/Time of Note DATE: 08/31/16 TIME: 14:22 Consult Date/Type/Reason Admit Date/Time Aug 13, 2016 at 16:30 Initial Consult Date 08/13/16 Type of Consultation: ID Ordering Provider: KELLEN MEDINA MD Subjective no acute events, looks comfortable, no fevers Objective Vital Signs Date Time Temp Pulse Resp B/P Pulse Ox O2 Delivery O2 Flow Rate FiO2 08/31/16 08:00 98.0 81 22 139/76 96 Nasal Cannula 6.0 08/31/16 06:07 40 Intake and Output 08/30/16 08/30/16 08/31/16 15:00 23:00 07:00 Intake Total 730 ml 750 ml Output Total 500 ml 300 ml Balance 230 ml 450 ml Results/Medications Result Diagram: 08/31/16 0630 08/31/16 0715 Results 24 hrs Laboratory Tests Test 08/30/16 16:36 08/30/16 20:48 08/31/16 06:30 08/31/16 07:15 Bedside Glucose 127 157 Basophils # 0.0 Basophils % 0.5 Blood Morphology Comment Eosinophils # 0.6 H Eosinophils % 7.1 H Hematocrit 29.1 L Hemoglobin 9.3 L Lymphocytes # 0.8 Lymphocytes % 10.3 L Magnesium Level 2.0 Mean Corpuscular Hemoglobin 25.2 L Mean Corpuscular Hemoglobin Concent 31.8 L Mean Corpuscular Volume 79.1 L Mean Platelet Volume 8.3 Monocytes # 0.7 Monocytes % 9.1 Neutrophils # 6.0 Neutrophils % 73.0 Nucleated Red Blood Cells # 0.0 Nucleated Red Blood Cells % 0.0 Phosphorus Level 6.0 H Platelet Count 264 Red Blood Count 3.68 L Red Cell Distribution Width 22.2 H White Blood Count 8.2 Anion Gap 16 Blood Urea Nitrogen 73 H Calcium Level 8.2 L Carbon Dioxide Level 28 Chloride Level 97 Creatinine 1.73 H Glucose Level 114 Potassium Level 4.5 Sodium Level 136 Test 08/31/16 07:40 08/31/16 11:15 Bedside Glucose 147 114 Medications Current Medications Acetaminophen (Tylenol Tab) 650 mg Q6H PRN PO PAIN LEVEL 1-3 OR FEVER; Start 08/13/16 at 17:30 Acetaminophen/ Hydrocodone Bitart ([place] (5/325)) 1 tab Q6H PRN PO MODERATE PAIN LEVEL 4-6 Last administered on 08/30/16 02:54; Admin Dose 1 TAB; Start 08/13/16 at 17:30 Morphine Sulfate (morphine) 2 mg Q4H PRN IV SEVERE PAIN LEVEL 7-10 Last administered on 08/30/16 18:13; Admin Dose 2 MG; Start 08/13/16 at 17:30 Docusate Sodium (Colace) 100 mg Q12H PRN PO CONSTIPATION; Start 08/13/16 at 17 :30 Famotidine (Pepcid) 20 mg Q12 PO Last administered on 08/31/16 09:14; Admin Dose 20 MG; Start 08/13/16 at 21:00 Heparin Sodium (Porcine) (Heparin (5000 Units/0.5 ml)) 5,000 unit Q12 SC Last administered on 08/25/16 21:01; Admin Dose 5,000 UNIT; Start 08/13/16 at 21: 00; Status Future Hold Allopurinol (Zyloprim) 100 mg DAILY PO Last administered on 08/31/16 09:14; Admin Dose 100 MG; Start 08/14/16 at 09:00 Ascorbic Acid (Vitamin C) 500 mg DAILY PO Last administered on 08/31/16 09:14 ; Admin Dose 500 MG; Start 08/13/16 at 18:00 Aspirin (Halfprin) 81 mg DAILY PO Last administered on 08/31/16 09:14; Admin Dose 81 MG; Start 08/14/16 at 09:00 Atorvastatin Calcium (Lipitor) 10 mg QHS PO Last administered on 08/30/16 21: 43; Admin Dose 10 MG; Start 08/13/16 at 21:00 Cholecalciferol (Vitamin D) 1,000 unit DAILY PO Last administered on 09:14; Admin Dose 1,000 UNIT; Start 08/14/16 at 09:00 Ferrous Sulfate (Ferrous Sulfate (Ec)) 325 mg BID PO Last administered on 08/31 09:14; Admin Dose 325 MG; Start 08/13/16 at 21:00 Fish Oil (Fish Oil) 1,000 mg DAILY PO Last administered on 08/31/16 09:13; Admin Dose 1,000 MG; Start 08/14/16 at 09:00 Lactobacillus Acidoph/Bulgaricus (Floranex) 1 tab TID PO Last administered on 08/31/16at 12:23; Admin Dose 1 TAB; Start 08/13/16 at 21:00 Metoprolol Tartrate (Lopressor) 12.5 mg BID PO Last administered on 08/31/16at 09:15; Admin Dose 12.5 MG; Start 08/13/16 at 21:00 Pregabalin (Lyrica) 50 mg TID PO Last administered on 08/31/16at 12:23; Admin Dose 50 MG; Start 08/13/16 at 21:00 Pyridoxine HCl (Vitamin B6) 100 mg DAILY PO Last administered on 08/31/16at 09: 14; Admin Dose 100 MG; Start 08/14/16 at 09:00 Simethicone (Mylicon) 80 mg Q6H PRN PO INTESTINAL SPASMS/CRAMPING Last administered on 08/16/16at 15:27; Admin Dose 80 MG; Start 08/13/16 at 17:30 Vitamin E (Vitamin E) 400 units DAILY PO Last administered on 08/31/16at 09:14 ; Admin Dose 400 UNITS; Start 08/14/16 at 09:00 Fluoxetine HCl (Prozac) 20 mg DAILY PO Last administered on 08/31/16at 09:14; Admin Dose 20 MG; Start 08/14/16 at 09:00 Miscellaneous Information 1 ea NOTE XX ; Start 08/13/16 at 18:00 Glucose (Glutose) 15 gm Q15M PRN PO DECREASED GLUCOSE; Start 08/13/16 at 18:00 Glucose (Glutose) 22.5 gm Q15M PRN PO DECREASED GLUCOSE; Start 08/13/16 at 18: 00 Dextrose (D50w Syringe) 25 ml Q15M PRN IV DECREASED GLUCOSE; Start 08/13/16 at 18:00 Dextrose (D50w Syringe) 50 ml Q15M PRN IV DECREASED GLUCOSE; Start 08/13/16 at 18:00 Glucagon (Glucagen) 1 mg Q15M PRN IM DECREASED GLUCOSE; Start 08/13/16 at 18: 00 Glucose (Glutose) 15 gm Q15M PRN BUCCAL DECREASED GLUCOSE; Start 08/13/16 at 18:00 Sodium Hypochlorite (Dakin'S (1/4 Strength)) 1 applic DAILY IRR Last administered on 08/31/16at 09:00; Admin Dose 1 APPLIC; Start 08/13/16 at 20:00 Acetaminophen/ Hydrocodone Bitart ([place] (5/325)) 2 tab Q6H PRN PO MODERATE PAIN LEVEL 4-6 Last administered on 08/31/16at 13:36; Admin Dose 2 TAB; Start 08/14/16 at 13:00 IV Flush (NS 10 ml) 10 ml PRN PRN IV IV PTOTOCOL; Start 08/14/16 at 17:00 Acetylcysteine (Nac) 600 mg BID PO Last administered on 08/31/16at 09:14; Admin Dose 600 MG; Start 08/16/16 at 21:00 Ondansetron HCl (Zofran Inj) 4 mg Q4H PRN IV NAUSEA AND/OR VOMITING; Start 08/16/16 at 12:30 Zolpidem Tartrate (Ambien) 10 mg HS PRN PO INSOMNIA Last administered on 23:07; Admin Dose 10 MG; Start 08/16/16 at 21:00 Lorazepam (Ativan) 1 mg Q6 PRN PO ANXIETY Last administered on 08/25/16at 22:08 ; Admin Dose 1 MG; Start 08/18/16 at 14:30 Insulin Glargine (Lantus) 15 unit QHS SC Last administered on 08/30/16 21:54 ; Admin Dose 15 UNIT; Start 08/19/16 at 21:00 Diagnostic Test (Pha) (Accucheck) 1 ea 02 XX Last administered on 08/30/16at 02 :47; Admin Dose 1 EA; Start 08/20/16 at 02:00 Phenol (Cepastat Lozenge) 1 lozenge Q1H PRN MT DRY MOUTH Last administered on 08/20/16 21:28; Admin Dose 1 LOZENGE; Start 08/20/16 at 20:30 Lorazepam (Ativan) 1 mg HS PRN PO ANXIETY, HELP WITH SLEEP Last administered on 08/30/16at 23:07; Admin Dose 1 MG; Start 08/22/16 at 18:30 Diphenhydramine HCl (Benadryl) 25 mg Q6H PRN PO ITCHING Last administered on 16:17; Admin Dose 25 MG; Start 08/26/16 at 20:30 Levofloxacin 500 mg 500 mg DAILY@06 PO Last administered on 08/31/16at 06:20; Admin Dose 500 MG; Start 08/28/16 at 06:00 Vancomycin HCl 750 mg/Sodium Chloride 150 ml @ 75 mls/hr Q24H IVPB Last administered on 08/30/16at 21:42; Admin Dose 75 MLS/HR; Start 08/29/16 at 21:00 Albumin Human 50 ml @ 100 mls/hr ONCE ONCE IV ; Start 08/31/16 at 14:00; Stop 08/31/16 at 14:29 Bumetanide/ Dextrose (Bumex/D5W) 25 ml @ 50 mls/hr BID@06,14 IV ; Start at 14:00 Assessment/Plan Chief Complaint/Hosp Course MICROBIOLOGY: 08/13/16 Bld cx+ [facility] DIAGNOSTICS: 08/14/16 MRI revealed cellulitis and osteomyelitis of the left first toe. ANTIMICROBIALS: Vancomycin Levaquin Urinalysis on admission was negative. PHYSICAL EXAMINATION: GENERAL: Obese, well-developed, middle-aged white man who is sitting in a chair. Patient is in no distress. HEENT: Head atraumatic, normocephalic. Sclerae anicteric. Buccal mucosa dry. NECK: Supple, trachea midline. CHEST: Rise symmetrical. Breath sounds clear, diminished to bases. HEART: S1, S2. ABDOMEN: Soft, bowel tones present. EXTREMITIES: Bilateral Patrick wraps. ASSESSMENT: 1. Bilateral lower extremities acute on chronic cellulitis with chronic venous stasis and left toe osteomyelitis. 2. Systemic inflammatory response syndrome 2 to above. 3. S/p septicemia==>KENAN 4. Questionable pneumonia as per chest x-ray. 5. Morbid obesity. 6. Atrial fibrillation, chronic. 7. Chronic kidney disease. 8. PAD==> s/p angiogram PLAN: Remains stable, pending acute rehab, completing 6 weeks abx DW staff DW patient Problems: JAMEY VAZQUEZ NP Aug 31, 2016 14:23
--- NOTE | 2016-08-31 14:32 | RADRPT ---
PROCEDURE: XR Chest. CLINICAL INDICATION: Shortness of breath. TECHNIQUE: PA and lateral views of the chest were obtained. COMPARISON: 08/26/2016. FINDINGS: Cardiac silhouette remains mildly enlarged. There is pulmonary vascular congestion. Mild diffuse in terstitial prominence remains. There is no change in the coarse air space infiltrate and/or atelecta sis in the right lung base with associated small the medium right pleural effusion. There is persis tent left lower lobe subsegmental atelectasis. Right-sided PICC line is unchanged. IMPRESSION: 1. Persistent mild congestive heart failure. 2. No significant change in right basilar consolidation and/or atelectasis with a slight increase i n air small the medium right pleural effusion. 3. Persistent left lower lobe subsegmental atelectasis. RPTAT: [facility] Physician Des Date Time Electronically viewed and signed by Physician Des on 08/31/2016 14:32 /
[2016-08-31] MEDS: BUMETANIDE 2 MG in DEXTROSE 5% 17 ML IV SCH (15:48)
[2016-08-31] MEDS: morphine 2 MG INJ IV PRN (15:53)
--- NOTE | 2016-08-31 17:28 | PN ---
Date/Time of Note Date/Time of Note DATE: 08/31/16 TIME: 17:23 Assessment/Plan VTE Prophylaxis VTE Prophylaxis Intervention: heparin Lines/Catheters IV [facility] Type (from [facility] PICC Line Central line still needed: Yes Urinary Cath still in place: No Assessment/Plan Chief Complaint/Hosp Course 1. Left great toe osteomyelitis. Continue antibiotics as per infectious disease. Status post evaluation by vascular surgery. 2. Acute on chronic respiratory failure, hypoxic and hypercapnic. Continue noninvasive positive pressure ventilation. Continue inhaled bronchodilators. 3. Pulmonary hypertension. Continue supplemental oxygen. 4. Acute on chronic kidney disease. Renally dose medications. Nephrology following. 5. Congestive heart failure exacerbation. Acute on chronic diastolic dysfunction. Continue diuretics as per nephrology. 6. Type 2 diabetes mellitus. Hemoglobin A1c 5.8. Continue carbohydrate controlled diet. Continue sliding scale insulin. 7. Essential hypertension. Continue antihypertensives. 8. History of atrial fibrillation. Currently in sinus rhythm. 9. Dyslipidemia. Continue statins. 10. Gout. Continue allopurinol. 11. Major depression. Continue selective serotonin reuptake inhibitors. 12. Morbid obesity with BMI of 42.5 kg/meter squared. Weight reduction advised. 13. Fluid, electrolytes, and nutrition. Renal, carbohydrate controlled diet. 14. Deep vein thrombosis prophylaxis. Subcutaneous heparin. 15. Gastrointestinal prophylaxis. Histamine 2 blockers. PLAN: The patient has been approved for ARU replacement. However, the patient currently has increased difficulty in breathing. Patient is requiring 6 L of oxygen to keep oxygen levels satisfactory. Will obtain a chest x-ray. Will obtain an abdominal ultrasound to evaluate for any underlying ascites. Will transfer the patient to acute rehabilitation unit once he is clinically stable. Case discussed with Dr. Pruitt. Problems: Subjective 24 Hr Interval Summary Free Text/Dictation Patient having difficulty in breathing. Complains of abdominal bloating. Exam/Review of Systems Vital Signs Vitals Vital Signs Date Time Temp Pulse Resp B/P Pulse Ox O2 Delivery O2 Flow Rate FiO2 08/31/16 16:05 69 20 93 Nasal Cannula 6.0 08/31/16 08:00 98.0 139/76 08/31/16 06:07 40 Intake and Output 08/30/16 08/30/16 08/31/16 14:59 22:59 06:59 Intake Total 730 ml 750 ml Output Total 500 ml 300 ml Balance 230 ml 450 ml Exam GENERAL: This is a morbidly obese male sitting in a chair in mild respiratory distress with oxygen via nasal cannula. HEENT: Head normocephalic and atraumatic. Eyes: Anicteric sclerae. Conjunctivae clear. ENT: Nasal septum. Oral mucosa is dry. NECK: Supple. RESPIRATORY: Bilaterally diminished breath sounds. Minimal use of accessory muscles of respiration. On supplemental oxygen. CARDIAC: Regular rate and rhythm. ABDOMEN: Soft, nontender, but protuberant. Bowel sounds hypoactive in all 4 quadrants. GENITOURINARY: Deferred. EXTREMITIES: Bilateral lower extremity 2+ edema. SKIN: Maculopapular rashes on B/L upper extremities. NEUROLOGIC: The patient is awake, alert, and oriented. Moves all four extremities. Results Result Diagram: 08/31/16 0630 08/31/16 0715 Results 24 hrs Laboratory Tests Test 08/30/16 20:48 08/31/16 06:30 08/31/16 07:15 08/31/16 07:40 Bedside Glucose 157 147 Basophils # 0.0 Basophils % 0.5 Blood Morphology Comment Eosinophils # 0.6 H Eosinophils % 7.1 H Hematocrit 29.1 L Hemoglobin 9.3 L Lymphocytes # 0.8 Lymphocytes % 10.3 L Magnesium Level 2.0 Mean Corpuscular Hemoglobin 25.2 L Mean Corpuscular Hemoglobin Concent 31.8 L Mean Corpuscular Volume 79.1 L Mean Platelet Volume 8.3 Monocytes # 0.7 Monocytes % 9.1 Neutrophils # 6.0 Neutrophils % 73.0 Nucleated Red Blood Cells # 0.0 Nucleated Red Blood Cells % 0.0 Phosphorus Level 6.0 H Platelet Count 264 Red Blood Count 3.68 L Red Cell Distribution Width 22.2 H White Blood Count 8.2 Anion Gap 16 Blood Urea Nitrogen 73 H Calcium Level 8.2 L Carbon Dioxide Level 28 Chloride Level 97 Creatinine 1.73 H Glucose Level 114 Potassium Level 4.5 Sodium Level 136 Test 08/31/16 11:15 08/31/16 16:28 Bedside Glucose 114 137 Medications Medications Current Medications Acetaminophen (Tylenol Tab) 650 mg Q6H PRN PO PAIN LEVEL 1-3 OR FEVER; Start 08/13/16 at 17:30 Acetaminophen/ Hydrocodone Bitart ([place] (5/325)) 1 tab Q6H PRN PO MODERATE PAIN LEVEL 4-6 Last administered on 08/30/16 02:54; Admin Dose 1 TAB; Start 08/13/16 at 17:30 Morphine Sulfate (morphine) 2 mg Q4H PRN IV SEVERE PAIN LEVEL 7-10 Last administered on 08/31/16 15:53; Admin Dose 2 MG; Start 08/13/16 at 17:30 Docusate Sodium (Colace) 100 mg Q12H PRN PO CONSTIPATION; Start 08/13/16 at 17 :30 Famotidine (Pepcid) 20 mg Q12 PO Last administered on 08/31/16 09:14; Admin Dose 20 MG; Start 08/13/16 at 21:00 Heparin Sodium (Porcine) (Heparin (5000 Units/0.5 ml)) 5,000 unit Q12 SC Last administered on 08/25/16 21:01; Admin Dose 5,000 UNIT; Start 08/13/16 at 21: 00; Status Future Hold Allopurinol (Zyloprim) 100 mg DAILY PO Last administered on 08/31/16 09:14; Admin Dose 100 MG; Start 08/14/16 at 09:00 Ascorbic Acid (Vitamin C) 500 mg DAILY PO Last administered on 08/31/16 09:14 ; Admin Dose 500 MG; Start 08/13/16 at 18:00 Aspirin (Halfprin) 81 mg DAILY PO Last administered on 08/31/16 09:14; Admin Dose 81 MG; Start 08/14/16 at 09:00 Atorvastatin Calcium (Lipitor) 10 mg QHS PO Last administered on 08/30/16 21: 43; Admin Dose 10 MG; Start 08/13/16 at 21:00 Cholecalciferol (Vitamin D) 1,000 unit DAILY PO Last administered on 09:14; Admin Dose 1,000 UNIT; Start 08/14/16 at 09:00 Ferrous Sulfate (Ferrous Sulfate (Ec)) 325 mg BID PO Last administered on 08/31 09:14; Admin Dose 325 MG; Start 08/13/16 at 21:00 Fish Oil (Fish Oil) 1,000 mg DAILY PO Last administered on 08/31/16 09:13; Admin Dose 1,000 MG; Start 08/14/16 at 09:00 Lactobacillus Acidoph/Bulgaricus (Floranex) 1 tab TID PO Last administered on 12/16/16at 12:23; Admin Dose 1 TAB; Start 08/13/16 at 21:00 Metoprolol Tartrate (Lopressor) 12.5 mg BID PO Last administered on 08/31/16at 09:15; Admin Dose 12.5 MG; Start 08/13/16 at 21:00 Pregabalin (Lyrica) 50 mg TID PO Last administered on 08/31/16at 12:23; Admin Dose 50 MG; Start 08/13/16 at 21:00 Pyridoxine HCl (Vitamin B6) 100 mg DAILY PO Last administered on 08/31/16at 09: 14; Admin Dose 100 MG; Start 08/14/16 at 09:00 Simethicone (Mylicon) 80 mg Q6H PRN PO INTESTINAL SPASMS/CRAMPING Last administered on 08/16/16at 15:27; Admin Dose 80 MG; Start 08/13/16 at 17:30 Vitamin E (Vitamin E) 400 units DAILY PO Last administered on 08/31/16 09:14 ; Admin Dose 400 UNITS; Start 08/14/16 at 09:00 Fluoxetine HCl (Prozac) 20 mg DAILY PO Last administered on 08/31/16 09:14; Admin Dose 20 MG; Start 08/14/16 at 09:00 Miscellaneous Information 1 ea NOTE XX ; Start 08/13/16 at 18:00 Glucose (Glutose) 15 gm Q15M PRN PO DECREASED GLUCOSE; Start 08/13/16 at 18:00 Glucose (Glutose) 22.5 gm Q15M PRN PO DECREASED GLUCOSE; Start 08/13/16 at 18: 00 Dextrose (D50w Syringe) 25 ml Q15M PRN IV DECREASED GLUCOSE; Start 08/13/16 at 18:00 Dextrose (D50w Syringe) 50 ml Q15M PRN IV DECREASED GLUCOSE; Start 08/13/16 at 18:00 Glucagon (Glucagen) 1 mg Q15M PRN IM DECREASED GLUCOSE; Start 08/13/16 at 18: 00 Glucose (Glutose) 15 gm Q15M PRN BUCCAL DECREASED GLUCOSE; Start 08/13/16 at 18:00 Sodium Hypochlorite (Dakin'S (1/4 Strength)) 1 applic DAILY IRR Last administered on 08/31/16at 09:00; Admin Dose 1 APPLIC; Start 08/13/16 at 20:00 Acetaminophen/ Hydrocodone Bitart ([place] (5/325)) 2 tab Q6H PRN PO MODERATE PAIN LEVEL 4-6 Last administered on 08/31/16at 13:36; Admin Dose 2 TAB; Start 08/14/16 at 13:00 IV Flush (NS 10 ml) 10 ml PRN PRN IV IV PTOTOCOL; Start 08/14/16 at 17:00 Acetylcysteine (Nac) 600 mg BID PO Last administered on 08/31/16at 09:14; Admin Dose 600 MG; Start 08/16/16 at 21:00 Ondansetron HCl (Zofran Inj) 4 mg Q4H PRN IV NAUSEA AND/OR VOMITING; Start 08/16/16 at 12:30 Zolpidem Tartrate (Ambien) 10 mg HS PRN PO INSOMNIA Last administered on 23:07; Admin Dose 10 MG; Start 08/16/16 at 21:00 Lorazepam (Ativan) 1 mg Q6 PRN PO ANXIETY Last administered on 08/25/16at 22:08 ; Admin Dose 1 MG; Start 08/18/16 at 14:30 Insulin Glargine (Lantus) 15 unit QHS SC Last administered on 08/30/16 21:54 ; Admin Dose 15 UNIT; Start 08/19/16 at 21:00 Diagnostic Test (Pha) (Accucheck) 1 ea 02 XX Last administered on 08/30/16at 02 :47; Admin Dose 1 EA; Start 08/20/16 at 02:00 Phenol (Cepastat Lozenge) 1 lozenge Q1H PRN MT DRY MOUTH Last administered on 08/20/16at 21:28; Admin Dose 1 LOZENGE; Start 08/20/16 at 20:30 Lorazepam (Ativan) 1 mg HS PRN PO ANXIETY, HELP WITH SLEEP Last administered on 08/30/16at 23:07; Admin Dose 1 MG; Start 08/22/16 at 18:30 Diphenhydramine HCl (Benadryl) 25 mg Q6H PRN PO ITCHING Last administered on at 16:17; Admin Dose 25 MG; Start 08/26/16 at 20:30 Levofloxacin 500 mg 500 mg DAILY@06 PO Last administered on 12/16/16at 06:20; Admin Dose 500 MG; Start 08/28/16 at 06:00 Vancomycin HCl 750 mg/Sodium Chloride 150 ml @ 75 mls/hr Q24H IVPB Last administered on 08/30/16at 21:42; Admin Dose 75 MLS/HR; Start 08/29/16 at 21:00 Bumetanide/ Dextrose (Bumex/D5W) 25 ml @ 50 mls/hr BID@06,14 IV Last administered on 08/31/16at 15:48; Admin Dose 50 MLS/HR; Start 08/31/16 at 14:00 GIO BISHOP NP Aug 31, 2016 17:28
[2016-08-31] MEDS ORDERED: BUMETANIDE 1 MG INJ IV SCH (18:00)
[2016-08-31 20:00] VITALS: BP 110/55; PULSE 89; RESP 22
[2016-08-31] MEDS: ATORVASTATIN 10 MG TAB PO SCH (22:07)
[2016-08-31] MEDS: VANCOMYCIN 750 MG in SOD CHLORIDE 0.9% 150 ML IVPB SCH (22:07)
[2016-08-31] MEDS: ZOLPIDEM 5 MG TAB PO PRN (22:08)
[2016-08-31] MEDS: INSULIN GLARGINE [LANtus] 3 ML PEN SC SCH (22:25)
[2016-08-31 22:40] VITALS: PULSE 88
[2016-09-01] VITALS (8 sets, daily range): BP systolic 121–128; BP diastolic 66–69; PULSE 76–90; RESP 19–24
[2016-09-01] MEDS: LORAZEPAM 1 MG TAB PO PRN ×2 (00:31→22:11)
[2016-09-01] MEDS: HYDROCODONE/APAP (5/325) TAB PO PRN ×2 (01:17→14:26)
[2016-09-01] MEDS: ALBUTEROL/IPRATROPIUM (NEB) 3 ML AMP HHN SCH ×6 (01:42→20:20)
[2016-09-01] MEDS: ACCUCHECK XX SCH (02:00)
[2016-09-01] MEDS: LEVOFLOXACIN 500 MG TAB PO SCH (05:37)
[2016-09-01] MEDS: BUMETANIDE 2 MG in DEXTROSE 5% 17 ML IV SCH ×2 (05:39→14:35)
[2016-09-01 06:19] LABS: POTASSIUM 4.8 mmol/L (3.5-5.1)
[2016-09-01 06:21] LABS: CREATININE 1.77 mg/dl (0.61-1.24)
[2016-09-01 06:22] LABS: CALCIUM 7.7 mg/dl (8.4-10.2); PHOSPHORUS 5.3 mg/dl (2.5-4.9)
[2016-09-01 06:29] LABS: EOSINOPHILS # 0.3 10^3/ul (0.0-0.5); EOSINOPHILS % 3.5 % (0.0-7.0); HEMATOCRIT 28.4 % (42.0-52.0); HEMOGLOBIN 9.2 g/dl (14.0-18.0); LYMPHOCYTES # 0.5 10^3/ul (0.8-2.9); LYMPHOCYTES % 5.4 % (15.0-51.0); MEAN CORPUSCULAR HEMOGLOBIN 25.4 pg (29.0-33.0); MEAN CORPUSCULAR HGB CONC 32.5 g/dl (32.0-37.0); MEAN CORPUSCULAR VOLUME 78.3 fl (82.0-101.0); MONOCYTE # 0.4 10^3/ul (0.3-0.9); MONOCYTES % 4.6 % (0.0-11.0); NEUTROPHIL # 8.1 10^3/ul (1.6-7.5); NEUTROPHILS % 86.5 % (39.0-77.0); PLATELET COUNT 215 10^3/UL (140-440); RED BLOOD COUNT 3.62 10^6/ul (4.70-6.10); RED CELL DISTRIBUTION WIDTH 21.3 % (11.5-14.5); UNCORRECTED WBC 9.4 10^3/ul (4.8-10.8); WHITE BLOOD COUNT 9.4 10^3/ul (4.8-10.8)
[2016-09-01 06:55] LABS: CONDITION 1; LH ANALYZER COMMENTS 1
[2016-09-01] MEDS: INSULIN ASPART [NOVOLOG] 3 ML PEN SC SCH ×7 (07:59→21:00)
[2016-09-01] MEDS: ACETYLCYSTEINE 600 MG CAP PO SCH ×2 (08:58→21:38)
[2016-09-01] MEDS: ALLOPURINOL 100 MG TAB PO SCH (08:58)
[2016-09-01] MEDS: FISH OIL 1,000 MG CAP PO SCH (08:58)
[2016-09-01] MEDS: PREGABALIN 25 MG CAP PO SCH ×3 (08:58→22:12)
[2016-09-01] MEDS: CHOLECALCIFEROL 1,000 UNIT TAB PO SCH (08:58)
[2016-09-01] MEDS: LACTOBACILLUS CHEW TAB PO SCH ×3 (08:58→21:38)
[2016-09-01] MEDS: ASPIRIN (EC) 81 MG TAB PO SCH (08:58)
[2016-09-01] MEDS: FAMOTIDINE 20 MG TAB PO SCH ×2 (08:59→21:39)
[2016-09-01] MEDS: ASCORBIC ACID 500 MG TAB PO SCH (08:59)
[2016-09-01] MEDS: PYRIDOXINE 50 MG TAB PO SCH (08:59)
[2016-09-01] MEDS: FLUOXETINE 20 MG CAP PO SCH (08:59)
[2016-09-01] MEDS: FERROUS SULFATE (EC) 325 MG TAB PO SCH ×2 (08:59→21:38)
[2016-09-01] MEDS: VITAMIN E 400 UNITS CAP PO SCH (08:59)
[2016-09-01] MEDS: METOPROLOL 25 MG TAB PO SCH ×2 (09:00→21:38)
[2016-09-01] MEDS: SODIUM HYPOCHLORITE 0.125% 473 ML BTL IRR SCH (09:05)
--- NOTE | 2016-09-01 14:21 | PN ---
Date/Time of Note Date/Time of Note DATE: 09/01/16 TIME: 14:20 Assessment/Plan VTE Prophylaxis VTE Prophylaxis Intervention: heparin Lines/Catheters IV C[facility] Type [facility]from [facility] PICC Line Central line still needed: Yes Urinary Cath still in place: No Assessment/Plan Chief Complaint/Hosp Course 1. Left great toe osteomyelitis. Continue antibiotics as per infectious disease. Status post evaluation by vascular surgery. 2. Acute on chronic respiratory failure, hypoxic and hypercapnic. Continue noninvasive positive pressure ventilation. Continue inhaled bronchodilators. 3. Pulmonary hypertension. Continue supplemental oxygen. 4. Acute on chronic kidney disease. Renally dose medications. Nephrology following. 5. Congestive heart failure exacerbation. Acute on chronic diastolic dysfunction. Continue diuretics as per nephrology. 6. Type 2 diabetes mellitus. Hemoglobin A1c 5.8. Continue carbohydrate controlled diet. Continue sliding scale insulin. 7. Essential hypertension. Continue antihypertensives. 8. History of atrial fibrillation. Currently in sinus rhythm. 9. Dyslipidemia. Continue statins. 10. Gout. Continue allopurinol. 11. Major depression. Continue selective serotonin reuptake inhibitors. 12. Morbid obesity with BMI of 42.5 kg/meter squared. Weight reduction advised. 13. Fluid, electrolytes, and nutrition. Renal, carbohydrate controlled diet. 14. Deep vein thrombosis prophylaxis. Subcutaneous heparin. 15. Gastrointestinal prophylaxis. Histamine 2 blockers. PLAN: The patient has been approved for ARU replacement. However, the patient currently has increased difficulty in breathing. Patient is requiring 6 L of oxygen to keep oxygen levels satisfactory. Will obtain an abdominal ultrasound to evaluate for any underlying ascites. Will transfer the patient to acute rehabilitation unit once he is clinically stable. Case discussed with Dr. Pruitt. Problems: Subjective 24 Hr Interval Summary Free Text/Dictation Breathing better. Exam/Review of Systems Vital Signs Vitals Vital Signs Date Time Temp Pulse Resp B/P Pulse Ox O2 Delivery O2 Flow Rate FiO2 09/01/16 13:38 86 100 40 09/01/16 13:36 20 09/01/16 09:21 6.0 09/01/16 09:20 Nasal Cannula 09/01/16 08:00 98.0 128/68 Intake and Output 08/31/16 08/31/16 09/01/16 15:00 23:00 07:00 Intake Total 1195 ml 750 ml Output Total 850 ml 100 ml Balance 345 ml 650 ml Exam GENERAL: This is a morbidly obese male sitting in a chair in mild respiratory distress with oxygen via nasal cannula. HEENT: Head normocephalic and atraumatic. Eyes: Anicteric sclerae. Conjunctivae clear. ENT: Nasal septum. Oral mucosa is dry. NECK: Supple. RESPIRATORY: Bilaterally diminished breath sounds. Minimal use of accessory muscles of respiration. On supplemental oxygen. CARDIAC: Regular rate and rhythm. ABDOMEN: Soft, nontender, but protuberant. Bowel sounds hypoactive in all 4 quadrants. GENITOURINARY: Deferred. EXTREMITIES: Bilateral lower extremity 2+ edema. SKIN: Maculopapular rashes on B/L upper extremities. NEUROLOGIC: The patient is awake, alert, and oriented. Moves all four extremities. Results Result Diagram: 09/01/16 0550 09/01/16 0550 Results 24 hrs Laboratory Tests Test 08/31/16 16:28 08/31/16 21:53 09/01/16 05:50 09/01/16 07:56 Bedside Glucose 137 171 124 Anion Gap 17 H Basophils # 0.0 Basophils % 0.0 Blood Morphology Comment Blood Urea Nitrogen 81 H Calcium Level 7.7 L Carbon Dioxide Level 28 Chloride Level 95 L Creatinine 1.77 H Eosinophils # 0.3 Eosinophils % 3.5 Glucose Level 130 Hematocrit 28.4 L Hemoglobin 9.2 L Lymphocytes # 0.5 L Lymphocytes % 5.4 L Magnesium Level 2.0 Mean Corpuscular Hemoglobin 25.4 L Mean Corpuscular Hemoglobin Concent 32.5 Mean Corpuscular Volume 78.3 L Mean Platelet Volume 8.0 Monocytes # 0.4 Monocytes % 4.6 Neutrophils # 8.1 H Neutrophils % 86.5 H Nucleated Red Blood Cells # 0.0 Nucleated Red Blood Cells % 0.0 Phosphorus Level 5.3 H Platelet Count 215 Potassium Level 4.8 Red Blood Count 3.62 L Red Cell Distribution Width 21.3 H Sodium Level 135 White Blood Count 9.4 Test 09/01/16 12:04 Bedside Glucose 121 Medications Medications Current Medications Acetaminophen (Tylenol Tab) 650 mg Q6H PRN PO PAIN LEVEL 1-3 OR FEVER; Start 08/13/16 at 17:30 Acetaminophen/ Hydrocodone Bitart ([place] (5/325)) 1 tab Q6H PRN PO MODERATE PAIN LEVEL 4-6 Last administered on 08/30/16at 02:54; Admin Dose 1 TAB; Start 08/13/16 at 17:30 Morphine Sulfate (morphine) 2 mg Q4H PRN IV SEVERE PAIN LEVEL 7-10 Last administered on 08/31/16at 15:53; Admin Dose 2 MG; Start 08/13/16 at 17:30 Docusate Sodium (Colace) 100 mg Q12H PRN PO CONSTIPATION; Start 08/13/16 at 17 :30 Famotidine (Pepcid) 20 mg Q12 PO Last administered on 09/01/16at 08:59; Admin Dose 20 MG; Start 08/13/16 at 21:00 Heparin Sodium (Porcine) (Heparin (5000 Units/0.5 ml)) 5,000 unit Q12 SC Last administered on 08/25/16 21:01; Admin Dose 5,000 UNIT; Start 08/13/16 at 21: 00; Status Future Hold Allopurinol (Zyloprim) 100 mg DAILY PO Last administered on 09/01/16 08:58; Admin Dose 100 MG; Start 08/14/16 at 09:00 Ascorbic Acid (Vitamin C) 500 mg DAILY PO Last administered on 09/01/16 08:59 ; Admin Dose 500 MG; Start 08/13/16 at 18:00 Aspirin (Halfprin) 81 mg DAILY PO Last administered on 09/01/16 08:58; Admin Dose 81 MG; Start 08/14/16 at 09:00 Atorvastatin Calcium (Lipitor) 10 mg QHS PO Last administered on 08/31/16at 22: 07; Admin Dose 10 MG; Start 08/13/16 at 21:00 Cholecalciferol (Vitamin D) 1,000 unit DAILY PO Last administered on 08:58; Admin Dose 1,000 UNIT; Start 08/14/16 at 09:00 Ferrous Sulfate (Ferrous Sulfate (Ec)) 325 mg BID PO Last administered on 09/01 08:59; Admin Dose 325 MG; Start 08/13/16 at 21:00 Fish Oil (Fish Oil) 1,000 mg DAILY PO Last administered on 09/01/16 08:58; Admin Dose 1,000 MG; Start 08/14/16 at 09:00 Lactobacillus Acidoph/Bulgaricus (Floranex) 1 tab TID PO Last administered on 09/01/16at 12:08; Admin Dose 1 TAB; Start 08/13/16 at 21:00 Metoprolol Tartrate (Lopressor) 12.5 mg BID PO Last administered on 09/01/16at 09:00; Admin Dose 12.5 MG; Start 08/13/16 at 21:00 Pregabalin (Lyrica) 50 mg TID PO Last administered on 09/01/16at 12:05; Admin Dose 50 MG; Start 08/13/16 at 21:00 Pyridoxine HCl (Vitamin B6) 100 mg DAILY PO Last administered on 09/01/16at 08: 59; Admin Dose 100 MG; Start 08/14/16 at 09:00 Simethicone (Mylicon) 80 mg Q6H PRN PO INTESTINAL SPASMS/CRAMPING Last administered on 08/16/16at 15:27; Admin Dose 80 MG; Start 08/13/16 at 17:30 Vitamin E (Vitamin E) 400 units DAILY PO Last administered on 09/01/16at 08:59 ; Admin Dose 400 UNITS; Start 08/14/16 at 09:00 Fluoxetine HCl (Prozac) 20 mg DAILY PO Last administered on 09/01/16at 08:59; Admin Dose 20 MG; Start 08/14/16 at 09:00 Miscellaneous Information 1 ea NOTE XX ; Start 08/13/16 at 18:00 Glucose (Glutose) 15 gm Q15M PRN PO DECREASED GLUCOSE; Start 08/13/16 at 18:00 Glucose (Glutose) 22.5 gm Q15M PRN PO DECREASED GLUCOSE; Start 08/13/16 at 18: 00 Dextrose (D50w Syringe) 25 ml Q15M PRN IV DECREASED GLUCOSE; Start 08/13/16 at 18:00 Dextrose (D50w Syringe) 50 ml Q15M PRN IV DECREASED GLUCOSE; Start 08/13/16 at 18:00 Glucagon (Glucagen) 1 mg Q15M PRN IM DECREASED GLUCOSE; Start 08/13/16 at 18: 00 Glucose (Glutose) 15 gm Q15M PRN BUCCAL DECREASED GLUCOSE; Start 08/13/16 at 18:00 Sodium Hypochlorite (Dakin'S (1/4 Strength)) 1 applic DAILY IRR Last administered on 09/01/16at 09:05; Admin Dose 1 APPLIC; Start 08/13/16 at 20:00 Acetaminophen/ Hydrocodone Bitart ([place] (5/325)) 2 tab Q6H PRN PO MODERATE PAIN LEVEL 4-6 Last administered on 09/01/16at 01:17; Admin Dose 2 TAB; Start 08/14/16 at 13:00 IV Flush (NS 10 ml) 10 ml PRN PRN IV IV PTOTOCOL; Start 08/14/16 at 17:00 Acetylcysteine (Nac) 600 mg BID PO Last administered on 09/01/16at 08:58; Admin Dose 600 MG; Start 08/16/16 at 21:00 Ondansetron HCl (Zofran Inj) 4 mg Q4H PRN IV NAUSEA AND/OR VOMITING; Start 08/16/16 at 12:30 Zolpidem Tartrate (Ambien) 10 mg HS PRN PO INSOMNIA Last administered on at 22:08; Admin Dose 10 MG; Start 08/16/16 at 21:00 Lorazepam (Ativan) 1 mg Q6 PRN PO ANXIETY Last administered on 08/25/16at 22:08 ; Admin Dose 1 MG; Start 08/18/16 at 14:30 Insulin Glargine (Lantus) 15 unit QHS SC Last administered on 08/31/16 22:25 ; Admin Dose 15 UNIT; Start 08/19/16 at 21:00 Diagnostic Test (Pha) (Accucheck) 1 ea 02 XX Last administered on 08/30/16at 02 :47; Admin Dose 1 EA; Start 08/20/16 at 02:00 Phenol (Cepastat Lozenge) 1 lozenge Q1H PRN MT DRY MOUTH Last administered on 08/20/16at 21:28; Admin Dose 1 LOZENGE; Start 08/20/16 at 20:30 Lorazepam (Ativan) 1 mg HS PRN PO ANXIETY, HELP WITH SLEEP Last administered on 09/01/16at 00:31; Admin Dose 1 MG; Start 08/22/16 at 18:30 Diphenhydramine HCl (Benadryl) 25 mg Q6H PRN PO ITCHING Last administered on 16:17; Admin Dose 25 MG; Start 08/26/16 at 20:30 Levofloxacin 500 mg 500 mg DAILY@06 PO Last administered on 09/01/16at 05:37; Admin Dose 500 MG; Start 08/28/16 at 06:00 Vancomycin HCl 750 mg/Sodium Chloride 150 ml @ 75 mls/hr Q24H IVPB Last administered on 08/31/16at 22:07; Admin Dose 75 MLS/HR; Start 08/29/16 at 21:00 Bumetanide/ Dextrose (Bumex/D5W) 25 ml @ 50 mls/hr BID@06,14 IV Last administered on 09/01/16at 05:39; Admin Dose 50 MLS/HR; Start 08/31/16 at 14:00 Miscellaneous Information (*Rx Drug Level Order Reminder*) VANCOMYCIN TROUGH AT 2000 ONCE ONCE XX ; Start 09/01/16 at 20:00; Stop 09/01/16 at 20:01 GIO BISHOP NP Sep 01, 2016 14:21
--- NOTE | 2016-09-01 15:24 | CONS ---
Date/Time of Note Date/Time of Note DATE: 09/01/16 TIME: 15:17 Assessment/Plan Assessment/Plan Additional Assessment/Plan 60 yo Male with 1) LORNA on CKD 2) Left toe cellulits OM 3) HTN, Chronic 4) Diastolic Heart Failure, Chronic 5) Pulm HTN 6) Anema, Chronic 7) RLL Patchy Consolidation 8) Anasarca Renal function worsening at this time, Non oliguric Will bumex Rx at this time, repeat renal function studies in am. US Abdomen for Ascites, ordered again. Likely will need Paracentesis Cont 1.5L Fluid restriction Daily weights. Consultation Date/Type/Reason Admit Date/Time Aug 13, 2016 at 16:30 Initial Consult Date 08/13/16 Type of Consultation: Nephrology Referring Provider: KELLEN MEDINA MD 24 HR Interval Summary Free Text/Dictation Pt did not have US done yesterday. Worsening ascites. Constitutional: requiring O2 Exam/Review of Systems Vital Signs Vitals Vital Signs Date Time Temp Pulse Resp B/P Pulse Ox O2 Delivery O2 Flow Rate FiO2 09/01/16 13:38 86 100 40 09/01/16 13:36 20 09/01/16 09:21 6.0 09/01/16 09:20 Nasal Cannula 09/01/16 08:00 98.0 128/68 Intake and Output 08/31/16 08/31/16 09/01/16 15:00 23:00 07:00 Intake Total 1195 ml 750 ml Output Total 850 ml 100 ml Balance 345 ml 650 ml Exam Constitutional: alert, No distress ENMT: mucosa pink and moist Neck: jvd Respiratory: crackles/rales, diminished breath sounds, No labored breathing Cardiovascular: regular rate and rhythm Gastrointestinal: ascites, distended, soft, No rebound or guarding Extremities: pitting pedal edema 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: 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 [employer]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, nl mental status, No lethargic Skin: No diaphoresis Results Result Diagram: 09/01/16 0550 09/01/16 0550 Results 24 hrs Laboratory Tests Test 08/31/16 16:28 08/31/16 21:53 09/01/16 05:50 09/01/16 07:56 Bedside Glucose 137 171 124 Anion Gap 17 H Basophils # 0.0 Basophils % 0.0 Blood Morphology Comment Blood Urea Nitrogen 81 H Calcium Level 7.7 L Carbon Dioxide Level 28 Chloride Level 95 L Creatinine 1.77 H Eosinophils # 0.3 Eosinophils % 3.5 Glucose Level 130 Hematocrit 28.4 L Hemoglobin 9.2 L Lymphocytes # 0.5 L Lymphocytes % 5.4 L Magnesium Level 2.0 Mean Corpuscular Hemoglobin 25.4 L Mean Corpuscular Hemoglobin Concent 32.5 Mean Corpuscular Volume 78.3 L Mean Platelet Volume 8.0 Monocytes # 0.4 Monocytes % 4.6 Neutrophils # 8.1 H Neutrophils % 86.5 H Nucleated Red Blood Cells # 0.0 Nucleated Red Blood Cells % 0.0 Phosphorus Level 5.3 H Platelet Count 215 Potassium Level 4.8 Red Blood Count 3.62 L Red Cell Distribution Width 21.3 H Sodium Level 135 White Blood Count 9.4 Test 09/01/16 12:04 Bedside Glucose 121 Medications Medications Current Medications Acetaminophen (Tylenol Tab) 650 mg Q6H PRN PO PAIN LEVEL 1-3 OR FEVER; Start 08/13/16 at 17:30 Acetaminophen/ Hydrocodone Bitart ([place] (5/325)) 1 tab Q6H PRN PO MODERATE PAIN LEVEL 4-6 Last administered on 08/30/16at 02:54; Admin Dose 1 TAB; Start 08/13/16 at 17:30 Morphine Sulfate (morphine) 2 mg Q4H PRN IV SEVERE PAIN LEVEL 7-10 Last administered on 08/31/16at 15:53; Admin Dose 2 MG; Start 08/13/16 at 17:30 Docusate Sodium (Colace) 100 mg Q12H PRN PO CONSTIPATION; Start 08/13/16 at 17 :30 Famotidine (Pepcid) 20 mg Q12 PO Last administered on 09/01/16at 08:59; Admin Dose 20 MG; Start 08/13/16 at 21:00 Heparin Sodium (Porcine) (Heparin (5000 Units/0.5 ml)) 5,000 unit Q12 SC Last administered on 08/25/16at 21:01; Admin Dose 5,000 UNIT; Start 08/13/16 at 21: 00; Status Future Hold Allopurinol (Zyloprim) 100 mg DAILY PO Last administered on 09/01/16at 08:58; Admin Dose 100 MG; Start 08/14/16 at 09:00 Ascorbic Acid (Vitamin C) 500 mg DAILY PO Last administered on 09/01/16 08:59 ; Admin Dose 500 MG; Start 08/13/16 at 18:00 Aspirin (Halfprin) 81 mg DAILY PO Last administered on 09/01/16 08:58; Admin Dose 81 MG; Start 08/14/16 at 09:00 Atorvastatin Calcium (Lipitor) 10 mg QHS PO Last administered on 08/31/16 22: 07; Admin Dose 10 MG; Start 08/13/16 at 21:00 Cholecalciferol (Vitamin D) 1,000 unit DAILY PO Last administered on 08:58; Admin Dose 1,000 UNIT; Start 08/14/16 at 09:00 Ferrous Sulfate (Ferrous Sulfate (Ec)) 325 mg BID PO Last administered on 09/01 08:59; Admin Dose 325 MG; Start 08/13/16 at 21:00 Fish Oil (Fish Oil) 1,000 mg DAILY PO Last administered on 09/01/16 08:58; Admin Dose 1,000 MG; Start 08/14/16 at 09:00 Lactobacillus Acidoph/Bulgaricus (Floranex) 1 tab TID PO Last administered on 09/01/16at 12:08; Admin Dose 1 TAB; Start 08/13/16 at 21:00 Metoprolol Tartrate (Lopressor) 12.5 mg BID PO Last administered on 09/01/16at 09:00; Admin Dose 12.5 MG; Start 08/13/16 at 21:00 Pregabalin (Lyrica) 50 mg TID PO Last administered on 09/01/16 12:05; Admin Dose 50 MG; Start 08/13/16 at 21:00 Pyridoxine HCl (Vitamin B6) 100 mg DAILY PO Last administered on 09/01/16at 08: 59; Admin Dose 100 MG; Start 08/14/16 at 09:00 Simethicone (Mylicon) 80 mg Q6H PRN PO INTESTINAL SPASMS/CRAMPING Last administered on 08/16/16at 15:27; Admin Dose 80 MG; Start 08/13/16 at 17:30 Vitamin E (Vitamin E) 400 units DAILY PO Last administered on 09/01/16 08:59 ; Admin Dose 400 UNITS; Start 08/14/16 at 09:00 Fluoxetine HCl (Prozac) 20 mg DAILY PO Last administered on 09/01/16at 08:59; Admin Dose 20 MG; Start 08/14/16 at 09:00 Miscellaneous Information 1 ea NOTE XX ; Start 08/13/16 at 18:00 Glucose (Glutose) 15 gm Q15M PRN PO DECREASED GLUCOSE; Start 08/13/16 at 18:00 Glucose (Glutose) 22.5 gm Q15M PRN PO DECREASED GLUCOSE; Start 08/13/16 at 18: 00 Dextrose (D50w Syringe) 25 ml Q15M PRN IV DECREASED GLUCOSE; Start 08/13/16 at 18:00 Dextrose (D50w Syringe) 50 ml Q15M PRN IV DECREASED GLUCOSE; Start 08/13/16 at 18:00 Glucagon (Glucagen) 1 mg Q15M PRN IM DECREASED GLUCOSE; Start 08/13/16 at 18: 00 Glucose (Glutose) 15 gm Q15M PRN BUCCAL DECREASED GLUCOSE; Start 08/13/16 at 18:00 Sodium Hypochlorite (Dakin'S (1/4 Strength)) 1 applic DAILY IRR Last administered on 09/01/16at 09:05; Admin Dose 1 APPLIC; Start 08/13/16 at 20:00 Acetaminophen/ Hydrocodone Bitart ([place] (5/325)) 2 tab Q6H PRN PO MODERATE PAIN LEVEL 4-6 Last administered on 09/01/16at 14:26; Admin Dose 2 TAB; Start 08/14/16 at 13:00 IV Flush (NS 10 ml) 10 ml PRN PRN IV IV PTOTOCOL; Start 08/14/16 at 17:00 Acetylcysteine (Nac) 600 mg BID PO Last administered on 09/01/16at 08:58; Admin Dose 600 MG; Start 08/16/16 at 21:00 Ondansetron HCl (Zofran Inj) 4 mg Q4H PRN IV NAUSEA AND/OR VOMITING; Start 08/16/16 at 12:30 Zolpidem Tartrate (Ambien) 10 mg HS PRN PO INSOMNIA Last administered on at 22:08; Admin Dose 10 MG; Start 08/16/16 at 21:00 Lorazepam (Ativan) 1 mg Q6 PRN PO ANXIETY Last administered on 08/25/16at 22:08 ; Admin Dose 1 MG; Start 08/18/16 at 14:30 Insulin Glargine (Lantus) 15 unit QHS SC Last administered on 08/31/16at 22:25 ; Admin Dose 15 UNIT; Start 08/19/16 at 21:00 Diagnostic Test (Pha) (Accucheck) 1 ea 02 XX Last administered on 08/30/16at 02 :47; Admin Dose 1 EA; Start 08/20/16 at 02:00 Phenol (Cepastat Lozenge) 1 lozenge Q1H PRN MT DRY MOUTH Last administered on 08/20/16at 21:28; Admin Dose 1 LOZENGE; Start 08/20/16 at 20:30 Lorazepam (Ativan) 1 mg HS PRN PO ANXIETY, HELP WITH SLEEP Last administered on 09/01/16at 00:31; Admin Dose 1 MG; Start 08/22/16 at 18:30 Diphenhydramine HCl (Benadryl) 25 mg Q6H PRN PO ITCHING Last administered on at 16:17; Admin Dose 25 MG; Start 08/26/16 at 20:30 Levofloxacin 500 mg 500 mg DAILY@06 PO Last administered on 09/01/16at 05:37; Admin Dose 500 MG; Start 08/28/16 at 06:00 Vancomycin HCl 750 mg/Sodium Chloride 150 ml @ 75 mls/hr Q24H IVPB Last administered on 08/31/16at 22:07; Admin Dose 75 MLS/HR; Start 08/29/16 at 21:00 Bumetanide/ Dextrose (Bumex/D5W) 25 ml @ 50 mls/hr BID@06,14 IV Last administered on 09/01/16at 14:35; Admin Dose 50 MLS/HR; Start 08/31/16 at 14:00 Miscellaneous Information (*Rx Drug Level Order Reminder*) VANCOMYCIN TROUGH AT 2000 ONCE ONCE XX ; Start 09/01/16 at 20:00; Stop 09/01/16 at 20:01 DYAN FRANKLIN MD Sep 01, 2016 15:24
--- NOTE | 2016-09-01 16:51 | RADRPT ---
PROCEDURE: US Abdomen (limited). CLINICAL INDICATION: Abdominal pain and distension. TECHNIQUE: Multiple real-time longitudinal and transverse images of the four quadrants of the abdo men were acquired utilizing a curved array transducer. Images were reviewed on a high-resolution PAC S workstation. COMPARISON: None FINDINGS: There is a small amount of ascites. There is no fluid to safely aspirate. IMPRESSION: 1. Small amount of ascites. Paracentesis not performed. Call report: A call report of the findings was made to Dr. Vivar on 09/01/2016 at 1640 hours. RPTAT: QQ .Aldo Ramirez MD, MD Date Time Electronically viewed and signed by .Aldo Ramirez MD, on 09/01/2016 16:51 .R/
[2016-09-01] MEDS: ATORVASTATIN 10 MG TAB PO SCH (21:38)
[2016-09-01] MEDS: INSULIN GLARGINE [LANtus] 3 ML PEN SC SCH (21:48)
[2016-09-01] MEDS: ZOLPIDEM 5 MG TAB PO PRN (23:57)
[2016-09-02] VITALS (17 sets, daily range): BP systolic 116–133; BP diastolic 54–77; PULSE 74–90; RESP 19–22
[2016-09-02] MEDS: VANCOMYCIN 750 MG in SOD CHLORIDE 0.9% 150 ML IVPB SCH (00:16)
[2016-09-02] MEDS: ALBUTEROL/IPRATROPIUM (NEB) 3 ML AMP HHN SCH ×6 (00:54→21:47)
[2016-09-02] MEDS: ACCUCHECK XX SCH (02:00)
[2016-09-02] MEDS: LEVOFLOXACIN 500 MG TAB PO SCH (06:29)
[2016-09-02 07:31] LABS: BASOPHILS % 0.1 % (0.0-2.0); EOSINOPHILS # 0.6 10^3/ul (0.0-0.5); EOSINOPHILS % 6.6 % (0.0-7.0); HEMATOCRIT 29.6 % (42.0-52.0); HEMOGLOBIN 9.5 g/dl (14.0-18.0); LYMPHOCYTES # 0.8 10^3/ul (0.8-2.9); LYMPHOCYTES % 8.5 % (15.0-51.0); MEAN CORPUSCULAR HEMOGLOBIN 25.4 pg (29.0-33.0); MEAN CORPUSCULAR HGB CONC 32.2 g/dl (32.0-37.0); MEAN PLATELET VOLUME 8.2 fl (7.4-10.4); MONOCYTE # 1.3 10^3/ul (0.3-0.9); MONOCYTES % 13.1 % (0.0-11.0); NEUTROPHILS % 71.7 % (39.0-77.0); PLATELET COUNT 213 10^3/UL (140-440); RED BLOOD COUNT 3.75 10^6/ul (4.70-6.10); RED CELL DISTRIBUTION WIDTH 22.4 % (11.5-14.5); UNCORRECTED WBC 9.7 10^3/ul (4.8-10.8); WHITE BLOOD COUNT 9.7 10^3/ul (4.8-10.8)
[2016-09-02 07:33] LABS: MAGNESIUM 1.9 mg/dl (1.7-2.5); PHOSPHORUS 5.8 mg/dl (2.5-4.9)
[2016-09-02 07:39] LABS: CONDITION 1; LH ANALYZER COMMENTS 1
[2016-09-02] MEDS: INSULIN ASPART [NOVOLOG] 3 ML PEN SC SCH ×7 (07:55→21:00)
[2016-09-02 08:06] LABS: POTASSIUM 5.2 mmol/L (3.5-5.1)
[2016-09-02 08:09] LABS: CREATININE 1.96 mg/dl (0.61-1.24)
[2016-09-02 08:10] LABS: CALCIUM 7.9 mg/dl (8.4-10.2)
[2016-09-02] MEDS: PYRIDOXINE 50 MG TAB PO SCH (08:24)
[2016-09-02] MEDS: ASCORBIC ACID 500 MG TAB PO SCH (08:24)
[2016-09-02] MEDS: FISH OIL 1,000 MG CAP PO SCH (08:24)
[2016-09-02] MEDS: ASPIRIN (EC) 81 MG TAB PO SCH (08:24)
[2016-09-02] MEDS: CHOLECALCIFEROL 1,000 UNIT TAB PO SCH (08:24)
[2016-09-02] MEDS: SODIUM HYPOCHLORITE 0.125% 473 ML BTL IRR SCH (08:24)
[2016-09-02] MEDS: VITAMIN E 400 UNITS CAP PO SCH (08:24)
[2016-09-02] MEDS: FLUOXETINE 20 MG CAP PO SCH (08:24)
[2016-09-02] MEDS: FAMOTIDINE 20 MG TAB PO SCH (08:24)
[2016-09-02] MEDS: FERROUS SULFATE (EC) 325 MG TAB PO SCH ×2 (08:25→21:26)
[2016-09-02] MEDS: LACTOBACILLUS CHEW TAB PO SCH ×3 (08:25→21:26)
[2016-09-02] MEDS: ALLOPURINOL 100 MG TAB PO SCH (08:25)
[2016-09-02] MEDS: ACETYLCYSTEINE 600 MG CAP PO SCH ×2 (08:25→21:26)
[2016-09-02] MEDS: METOPROLOL 25 MG TAB PO SCH ×2 (08:26→21:27)
[2016-09-02] MEDS: PREGABALIN 25 MG CAP PO SCH ×3 (09:00→21:26)
--- NOTE | 2016-09-02 09:37 | CONS ---
Date/Time of Note Date/Time of Note DATE: 09/02/16 TIME: 09:35 Assessment/Plan Assessment/Plan Additional Assessment/Plan 60 yo Male with 1) LORNA on CKD 2) Left toe cellulits OM 3) HTN, Chronic 4) Diastolic Heart Failure, Chronic 5) Pulm HTN 6) Anema, Chronic 7) RLL Patchy Consolidation 8) Anasarca Renal function worsening at this time, Non oliguric Cont to hold Diuretic Rx Unable to perform paracentesis, no significant ascites present Recommend change ABx Rx if possible. No acute indication for HD at this time kayexalate prn for hyperkalemia Renal ADA diet Cont 1.5L Fluid restriction Daily weights. Consultation Date/Type/Reason Admit Date/Time Aug 13, 2016 at 16:30 Initial Consult Date 08/13/16 Type of Consultation: Nephrology Referring Provider: KELLEN MEDINA MD 24 HR Interval Summary Free Text/Dictation Feels thirsty Exam/Review of Systems Vital Signs Vitals Vital Signs Date Time Temp Pulse Resp B/P Pulse Ox O2 Delivery O2 Flow Rate FiO2 09/02/16 08:15 74 09/02/16 07:53 97.5 20 119/69 95 09/02/16 04:54 40 09/01/16 23:00 Nasal Cannula 6.0 Intake and Output 09/01/16 09/01/16 09/02/16 15:00 23:00 07:00 Intake Total 1705 ml 1150 ml Output Total 400 ml Balance 1705 ml 750 ml Exam Constitutional: alert, No distress ENMT: mucosa pink and moist Respiratory: crackles/rales Cardiovascular: edema, regular rate and rhythm Gastrointestinal: distended, soft, No rebound or guarding 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: C[employer]IP[employer] 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, nl mental status Skin: No diaphoresis Results Result Diagram: 09/02/16 0640 09/02/16 0640 Results 24 hrs Laboratory Tests Test 09/01/16 12:04 09/01/16 17:24 09/01/16 20:20 09/01/16 21:34 Bedside Glucose 121 187 124 Vancomycin Level Trough 18.4 Test 09/02/16 06:40 09/02/16 08:23 Anion Gap 18 H Basophils # 0.0 Basophils % 0.1 Blood Morphology Comment Blood Urea Nitrogen 86 H Calcium Level 7.9 L Carbon Dioxide Level 24 Chloride Level 96 L Creatinine 1.96 H Eosinophils # 0.6 H Eosinophils % 6.6 Glucose Level 86 # Hematocrit 29.6 L Hemoglobin 9.5 L Lymphocytes # 0.8 Lymphocytes % 8.5 L Magnesium Level 1.9 Mean Corpuscular Hemoglobin 25.4 L Mean Corpuscular Hemoglobin Concent 32.2 Mean Corpuscular Volume 79.0 L Mean Platelet Volume 8.2 Monocytes # 1.3 H Monocytes % 13.1 H Neutrophils # 7.0 Neutrophils % 71.7 Nucleated Red Blood Cells # 0.0 Nucleated Red Blood Cells % 0.0 Phosphorus Level 5.8 H Platelet Count 213 Potassium Level 5.2 H Red Blood Count 3.75 L Red Cell Distribution Width 22.4 H Sodium Level 133 L White Blood Count 9.7 Bedside Glucose 95 Medications Medications Current Medications Acetaminophen (Tylenol Tab) 650 mg Q6H PRN PO PAIN LEVEL 1-3 OR FEVER; Start 08/13/16 at 17:30 Acetaminophen/ Hydrocodone Bitart ([place] (5/325)) 1 tab Q6H PRN PO MODERATE PAIN LEVEL 4-6 Last administered on 08/30/16at 02:54; Admin Dose 1 TAB; Start 08/13/16 at 17:30 Morphine Sulfate (morphine) 2 mg Q4H PRN IV SEVERE PAIN LEVEL 7-10 Last administered on 08/31/16at 15:53; Admin Dose 2 MG; Start 08/13/16 at 17:30 Docusate Sodium (Colace) 100 mg Q12H PRN PO CONSTIPATION; Start 08/13/16 at 17 :30 Famotidine (Pepcid) 20 mg Q12 PO Last administered on 09/02/16 08:24; Admin Dose 20 MG; Start 08/13/16 at 21:00 Heparin Sodium (Porcine) (Heparin (5000 Units/0.5 ml)) 5,000 unit Q12 SC Last administered on 08/25/16 21:01; Admin Dose 5,000 UNIT; Start 08/13/16 at 21: 00; Status Future Hold Allopurinol (Zyloprim) 100 mg DAILY PO Last administered on 09/02/16 08:25; Admin Dose 100 MG; Start 08/14/16 at 09:00 Ascorbic Acid (Vitamin C) 500 mg DAILY PO Last administered on 09/02/16 08:24 ; Admin Dose 500 MG; Start 08/13/16 at 18:00 Aspirin (Halfprin) 81 mg DAILY PO Last administered on 09/02/16 08:24; Admin Dose 81 MG; Start 08/14/16 at 09:00 Atorvastatin Calcium (Lipitor) 10 mg QHS PO Last administered on 09/01/16 21: 38; Admin Dose 10 MG; Start 08/13/16 at 21:00 Cholecalciferol (Vitamin D) 1,000 unit DAILY PO Last administered on 08:24; Admin Dose 1,000 UNIT; Start 08/14/16 at 09:00 Ferrous Sulfate (Ferrous Sulfate (Ec)) 325 mg BID PO Last administered on 09/02 08:25; Admin Dose 325 MG; Start 08/13/16 at 21:00 Fish Oil (Fish Oil) 1,000 mg DAILY PO Last administered on 09/02/16 08:24; Admin Dose 1,000 MG; Start 08/14/16 at 09:00 Lactobacillus Acidoph/Bulgaricus (Floranex) 1 tab TID PO Last administered on 09/02/16 08:25; Admin Dose 1 TAB; Start 08/13/16 at 21:00 Metoprolol Tartrate (Lopressor) 12.5 mg BID PO Last administered on 09/02/16 08:26; Admin Dose 12.5 MG; Start 08/13/16 at 21:00 Pregabalin (Lyrica) 50 mg TID PO Last administered on 09/01/16 22:12; Admin Dose 50 MG; Start 08/13/16 at 21:00 Pyridoxine HCl (Vitamin B6) 100 mg DAILY PO Last administered on 09/02/16 08: 24; Admin Dose 100 MG; Start 08/14/16 at 09:00 Simethicone (Mylicon) 80 mg Q6H PRN PO INTESTINAL SPASMS/CRAMPING Last administered on 08/16/16 15:27; Admin Dose 80 MG; Start 08/13/16 at 17:30 Vitamin E (Vitamin E) 400 units DAILY PO Last administered on 09/02/16 08:24 ; Admin Dose 400 UNITS; Start 08/14/16 at 09:00 Fluoxetine HCl (Prozac) 20 mg DAILY PO Last administered on 09/02/16 08:24; Admin Dose 20 MG; Start 08/14/16 at 09:00 Miscellaneous Information 1 ea NOTE XX ; Start 08/13/16 at 18:00 Glucose (Glutose) 15 gm Q15M PRN PO DECREASED GLUCOSE; Start 08/13/16 at 18:00 Glucose (Glutose) 22.5 gm Q15M PRN PO DECREASED GLUCOSE; Start 08/13/16 at 18: 00 Dextrose (D50w Syringe) 25 ml Q15M PRN IV DECREASED GLUCOSE; Start 08/13/16 at 18:00 Dextrose (D50w Syringe) 50 ml Q15M PRN IV DECREASED GLUCOSE; Start 08/13/16 at 18:00 Glucagon (Glucagen) 1 mg Q15M PRN IM DECREASED GLUCOSE; Start 08/13/16 at 18: 00 Glucose (Glutose) 15 gm Q15M PRN BUCCAL DECREASED GLUCOSE; Start 08/13/16 at 18:00 Sodium Hypochlorite (Dakin'S (1/4 Strength)) 1 applic DAILY IRR Last administered on 09/02/16at 08:24; Admin Dose 1 APPLIC; Start 08/13/16 at 20:00 Acetaminophen/ Hydrocodone Bitart ([place] (5/325)) 2 tab Q6H PRN PO MODERATE PAIN LEVEL 4-6 Last administered on 09/01/16at 14:26; Admin Dose 2 TAB; Start 08/14/16 at 13:00 IV Flush (NS 10 ml) 10 ml PRN PRN IV IV PTOTOCOL; Start 08/14/16 at 17:00 Acetylcysteine (Nac) 600 mg BID PO Last administered on 09/02/16at 08:25; Admin Dose 600 MG; Start 08/16/16 at 21:00 Ondansetron HCl (Zofran Inj) 4 mg Q4H PRN IV NAUSEA AND/OR VOMITING; Start 08/16/16 at 12:30 Zolpidem Tartrate (Ambien) 10 mg HS PRN PO INSOMNIA Last administered on at 23:57; Admin Dose 10 MG; Start 08/16/16 at 21:00 Lorazepam (Ativan) 1 mg Q6 PRN PO ANXIETY Last administered on 08/25/16at 22:08 ; Admin Dose 1 MG; Start 08/18/16 at 14:30 Insulin Glargine (Lantus) 15 unit QHS SC Last administered on 09/01/16at 21:48 ; Admin Dose 15 UNIT; Start 08/19/16 at 21:00 Diagnostic Test (Pha) (Accucheck) 1 ea 02 XX Last administered on 08/30/16at 02 :47; Admin Dose 1 EA; Start 08/20/16 at 02:00 Phenol (Cepastat Lozenge) 1 lozenge Q1H PRN MT DRY MOUTH Last administered on 08/20/16at 21:28; Admin Dose 1 LOZENGE; Start 08/20/16 at 20:30 Lorazepam (Ativan) 1 mg HS PRN PO ANXIETY, HELP WITH SLEEP Last administered on 09/01/16at 22:11; Admin Dose 1 MG; Start 08/22/16 at 18:30 Diphenhydramine HCl (Benadryl) 25 mg Q6H PRN PO ITCHING Last administered on at 16:17; Admin Dose 25 MG; Start 08/26/16 at 20:30 Levofloxacin 500 mg 500 mg DAILY@06 PO Last administered on 09/02/16at 06:29; Admin Dose 500 MG; Start 08/28/16 at 06:00 Vancomycin HCl/ Sodium Chloride (Vancocin/NS) 150 ml @ 75 mls/hr Q24H IVPB Last administered on 09/02/16at 00:16; Admin Dose 75 MLS/HR; Start 08/29/16 at 21:00 DYAN FRANKLIN MD Sep 02, 2016 09:37
--- NOTE | 2016-09-02 09:58 | PN ---
Date/Time of Note Date/Time of Note DATE: 09/02/16 TIME: 09:57 Assessment/Plan VTE Prophylaxis VTE Prophylaxis Intervention: heparin Lines/Catheters IV Catheter Type (from [facility]): PICC Line Central line still needed: Yes Urinary Cath still in place: No Assessment/Plan Chief Complaint/Hosp Course 1. Left great toe osteomyelitis. Continue antibiotics as per infectious disease. Status post evaluation by vascular surgery. 2. Acute on chronic respiratory failure, hypoxic and hypercapnic. Continue noninvasive positive pressure ventilation. Continue inhaled bronchodilators. 3. Pulmonary hypertension. Continue supplemental oxygen. 4. Acute on chronic kidney disease. Renally dose medications. Nephrology following. 5. Congestive heart failure exacerbation. Acute on chronic diastolic dysfunction. Continue diuretics as per nephrology. 6. Type 2 diabetes mellitus. Hemoglobin A1c 5.8. Continue carbohydrate controlled diet. Continue sliding scale insulin. 7. Essential hypertension. Continue antihypertensives. 8. History of atrial fibrillation. Currently in sinus rhythm. 9. Dyslipidemia. Continue statins. 10. Gout. Continue allopurinol. 11. Major depression. Continue selective serotonin reuptake inhibitors. 12. Morbid obesity with BMI of 42.5 kg/meter squared. Weight reduction advised. 13. Fluid, electrolytes, and nutrition. Renal, carbohydrate controlled diet. 14. Deep vein thrombosis prophylaxis. Subcutaneous heparin. 15. Gastrointestinal prophylaxis. Histamine 2 blockers. PLAN: Kayexalate for hyperkalemia. The patient has been approved for ARU replacement. However, the patient currently has increased difficulty in breathing. Patient is requiring 6 L of oxygen to keep oxygen levels satisfactory. Abdominal ultrasound showed mild ascites, not amenable to paracentesis. Will transfer the patient to acute rehabilitation unit once he is clinically stable. Case discussed with Dr. Pruitt. Case discussed with Nephrology and ID. Problems: Subjective 24 Hr Interval Summary Free Text/Dictation The patient was moved to telemetry floor on 09/01/2016 because of close monitoring. Patient remains somnolent. Exam/Review of Systems Vital Signs Vitals Vital Signs Date Time Temp Pulse Resp B/P Pulse Ox O2 Delivery O2 Flow Rate FiO2 09/02/16 09:44 80 20 91 Nasal Cannula 5.0 09/02/16 07:53 97.5 119/69 09/02/16 04:54 40 Intake and Output 09/01/16 09/01/16 09/02/16 15:00 23:00 07:00 Intake Total 1705 ml 1150 ml Output Total 400 ml Balance 1705 ml 750 ml Exam GENERAL: This is a morbidly obese male sitting in a chair in mild respiratory distress with oxygen via nasal cannula. HEENT: Head normocephalic and atraumatic. Eyes: Anicteric sclerae. Conjunctivae clear. ENT: Nasal septum. Oral mucosa is dry. NECK: Supple. RESPIRATORY: Bilaterally diminished breath sounds. Minimal use of accessory muscles of respiration. On supplemental oxygen. CARDIAC: Regular rate and rhythm. ABDOMEN: Soft, nontender, but protuberant. Bowel sounds hypoactive in all 4 quadrants. GENITOURINARY: Deferred. EXTREMITIES: Bilateral lower extremity 2+ edema. SKIN: Maculopapular rashes on B/L upper extremities. NEUROLOGIC: The patient is somnolent now. Results Result Diagram: 09/02/16 0640 09/02/16 0640 Results 24 hrs Laboratory Tests Test 09/01/16 12:04 09/01/16 17:24 09/01/16 20:20 09/01/16 21:34 Bedside Glucose 121 187 124 Vancomycin Level Trough 18.4 Test 09/02/16 06:40 09/02/16 08:23 Anion Gap 18 H Basophils # 0.0 Basophils % 0.1 Blood Morphology Comment Blood Urea Nitrogen 86 H Calcium Level 7.9 L Carbon Dioxide Level 24 Chloride Level 96 L Creatinine 1.96 H Eosinophils # 0.6 H Eosinophils % 6.6 Glucose Level 86 # Hematocrit 29.6 L Hemoglobin 9.5 L Lymphocytes # 0.8 Lymphocytes % 8.5 L Magnesium Level 1.9 Mean Corpuscular Hemoglobin 25.4 L Mean Corpuscular Hemoglobin Concent 32.2 Mean Corpuscular Volume 79.0 L Mean Platelet Volume 8.2 Monocytes # 1.3 H Monocytes % 13.1 H Neutrophils # 7.0 Neutrophils % 71.7 Nucleated Red Blood Cells # 0.0 Nucleated Red Blood Cells % 0.0 Phosphorus Level 5.8 H Platelet Count 213 Potassium Level 5.2 H Red Blood Count 3.75 L Red Cell Distribution Width 22.4 H Sodium Level 133 L White Blood Count 9.7 Bedside Glucose 95 Medications Medications Current Medications Acetaminophen (Tylenol Tab) 650 mg Q6H PRN PO PAIN LEVEL 1-3 OR FEVER; Start 08/13/16 at 17:30 Acetaminophen/ Hydrocodone Bitart ([place] (5/325)) 1 tab Q6H PRN PO MODERATE PAIN LEVEL 4-6 Last administered on 08/30/16 02:54; Admin Dose 1 TAB; Start 08/13/16 at 17:30 Morphine Sulfate (morphine) 2 mg Q4H PRN IV SEVERE PAIN LEVEL 7-10 Last administered on 08/31/16at 15:53; Admin Dose 2 MG; Start 08/13/16 at 17:30 Docusate Sodium (Colace) 100 mg Q12H PRN PO CONSTIPATION; Start 08/13/16 at 17 :30 Famotidine (Pepcid) 20 mg Q12 PO Last administered on 09/02/16 08:24; Admin Dose 20 MG; Start 08/13/16 at 21:00 Heparin Sodium (Porcine) (Heparin (5000 Units/0.5 ml)) 5,000 unit Q12 SC Last administered on 08/25/16at 21:01; Admin Dose 5,000 UNIT; Start 08/13/16 at 21: 00; Status Future Hold Allopurinol (Zyloprim) 100 mg DAILY PO Last administered on 09/02/16 08:25; Admin Dose 100 MG; Start 08/14/16 at 09:00 Ascorbic Acid (Vitamin C) 500 mg DAILY PO Last administered on 09/02/16 08:24 ; Admin Dose 500 MG; Start 08/13/16 at 18:00 Aspirin (Halfprin) 81 mg DAILY PO Last administered on 09/02/16 08:24; Admin Dose 81 MG; Start 08/14/16 at 09:00 Atorvastatin Calcium (Lipitor) 10 mg QHS PO Last administered on 09/01/16at 21: 38; Admin Dose 10 MG; Start 08/13/16 at 21:00 Cholecalciferol (Vitamin D) 1,000 unit DAILY PO Last administered on 08:24; Admin Dose 1,000 UNIT; Start 08/14/16 at 09:00 Ferrous Sulfate (Ferrous Sulfate (Ec)) 325 mg BID PO Last administered on 09/02 08:25; Admin Dose 325 MG; Start 08/13/16 at 21:00 Fish Oil (Fish Oil) 1,000 mg DAILY PO Last administered on 09/02/16 08:24; Admin Dose 1,000 MG; Start 08/14/16 at 09:00 Lactobacillus Acidoph/Bulgaricus (Floranex) 1 tab TID PO Last administered on 09/02/16at 08:25; Admin Dose 1 TAB; Start 08/13/16 at 21:00 Metoprolol Tartrate (Lopressor) 12.5 mg BID PO Last administered on 09/02/16at 08:26; Admin Dose 12.5 MG; Start 08/13/16 at 21:00 Pregabalin (Lyrica) 50 mg TID PO Last administered on 09/01/16at 22:12; Admin Dose 50 MG; Start 08/13/16 at 21:00 Pyridoxine HCl (Vitamin B6) 100 mg DAILY PO Last administered on 09/02/16at 08: 24; Admin Dose 100 MG; Start 08/14/16 at 09:00 Simethicone (Mylicon) 80 mg Q6H PRN PO INTESTINAL SPASMS/CRAMPING Last administered on 08/16/16at 15:27; Admin Dose 80 MG; Start 08/13/16 at 17:30 Vitamin E (Vitamin E) 400 units DAILY PO Last administered on 09/02/16at 08:24 ; Admin Dose 400 UNITS; Start 08/14/16 at 09:00 Fluoxetine HCl (Prozac) 20 mg DAILY PO Last administered on 09/02/16at 08:24; Admin Dose 20 MG; Start 08/14/16 at 09:00 Miscellaneous Information 1 ea NOTE XX ; Start 08/13/16 at 18:00 Glucose (Glutose) 15 gm Q15M PRN PO DECREASED GLUCOSE; Start 08/13/16 at 18:00 Glucose (Glutose) 22.5 gm Q15M PRN PO DECREASED GLUCOSE; Start 08/13/16 at 18: 00 Dextrose (D50w Syringe) 25 ml Q15M PRN IV DECREASED GLUCOSE; Start 08/13/16 at 18:00 Dextrose (D50w Syringe) 50 ml Q15M PRN IV DECREASED GLUCOSE; Start 08/13/16 at 18:00 Glucagon (Glucagen) 1 mg Q15M PRN IM DECREASED GLUCOSE; Start 08/13/16 at 18: 00 Glucose (Glutose) 15 gm Q15M PRN BUCCAL DECREASED GLUCOSE; Start 08/13/16 at 18:00 Sodium Hypochlorite (Dakin'S (1/4 Strength)) 1 applic DAILY IRR Last administered on 09/02/16 08:24; Admin Dose 1 APPLIC; Start 08/13/16 at 20:00 Acetaminophen/ Hydrocodone Bitart ([place] (5/325)) 2 tab Q6H PRN PO MODERATE PAIN LEVEL 4-6 Last administered on 09/01/16 14:26; Admin Dose 2 TAB; Start 08/14/16 at 13:00 IV Flush (NS 10 ml) 10 ml PRN PRN IV IV PTOTOCOL; Start 08/14/16 at 17:00 Acetylcysteine (Nac) 600 mg BID PO Last administered on 09/02/16 08:25; Admin Dose 600 MG; Start 08/16/16 at 21:00 Ondansetron HCl (Zofran Inj) 4 mg Q4H PRN IV NAUSEA AND/OR VOMITING; Start 08/16/16 at 12:30 Zolpidem Tartrate (Ambien) 10 mg HS PRN PO INSOMNIA Last administered on 23:57; Admin Dose 10 MG; Start 08/16/16 at 21:00 Lorazepam (Ativan) 1 mg Q6 PRN PO ANXIETY Last administered on 08/25/16 22:08 ; Admin Dose 1 MG; Start 08/18/16 at 14:30 Insulin Glargine (Lantus) 15 unit QHS SC Last administered on 09/01/16 21:48 ; Admin Dose 15 UNIT; Start 08/19/16 at 21:00 Diagnostic Test (Pha) (Accucheck) 1 ea 02 XX Last administered on 08/30/16at 02 :47; Admin Dose 1 EA; Start 08/20/16 at 02:00 Phenol (Cepastat Lozenge) 1 lozenge Q1H PRN MT DRY MOUTH Last administered on 08/20/16 21:28; Admin Dose 1 LOZENGE; Start 08/20/16 at 20:30 Lorazepam (Ativan) 1 mg HS PRN PO ANXIETY, HELP WITH SLEEP Last administered on 09/01/16at 22:11; Admin Dose 1 MG; Start 08/22/16 at 18:30 Diphenhydramine HCl (Benadryl) 25 mg Q6H PRN PO ITCHING Last administered on 16:17; Admin Dose 25 MG; Start 08/26/16 at 20:30 Levofloxacin 500 mg 500 mg DAILY@06 PO Last administered on 09/02/16at 06:29; Admin Dose 500 MG; Start 08/28/16 at 06:00 Vancomycin HCl/ Sodium Chloride (Vancocin/NS) 150 ml @ 75 mls/hr Q24H IVPB Last administered on 09/02/16at 00:16; Admin Dose 75 MLS/HR; Start 08/29/16 at 21:00 Sodium Polystyrene Sulfonate (Kayexalate) 15 gm ONCE ONCE PO ; Start 09/02/16 at 10:00; Stop 09/02/16 at 10:01 GIO BISHOP NP Sep 02, 2016 09:58
[2016-09-02] MEDS ORDERED: NA POLYST SULFON 15 GM/60 ML BTL PO ONE (10:00)
--- NOTE | 2016-09-02 13:51 | CONS ---
Date/Time of Note Date/Time of Note DATE: 09/02/16 TIME: 13:42 Assessment/Plan Assessment/Plan Chief Complaint/Hosp Course ID PROGRESS NOTE 24H INTERVAL SUMMARY * Doing OK on O2 6L, increased ascites not amenable to paracentesis per notes, no fevers * WBC 9.7. S/Creatinine 1.96 => worsening renal fx on Vanco + Levaquin * MICROBIOLOGY: Bld cx+ KENAN / Urinalysis on admission was negative. * DIAGNOSTICS: MRI revealed cellulitis and osteomyelitis of the left first toe. * ANTIMICROBIALS: Vancomycin IV + Levaquin PHYSICAL EXAMINATION: GENERAL: Overweight M, OOB-> Chair, VSS, NAD HEENT: Unremarkable NECK: Supple, trachea midline. CHEST: Rise symmetrical. ABDOMEN: Soft, EXTREMITIES: Bilateral Patrick wraps. ID ASSESSMENT: 1. Bilateral lower extremities acute on chronic cellulitis with chronic venous stasis and left toe osteomyelitis. 2. Systemic inflammatory response syndrome 2 to above. 3. Septicemia==>EKNAN 4. Questionable pneumonia as per chest x-ray. 5. Morbid obesity. 6. Atrial fibrillation, chronic. 7. Chronic kidney disease. 8. PAD==> s/p angiogram (-)MRSA Nares CURRENT ABX: Vanco IV + Levaquin ID PLAN: 1. DC Vanco IV 2/2 worsening renal function * => change to DAPTOMYCIN 6mg/kg dose per pharmacy to complete ABX anticipate 6 weeks minimum => LAST DAY 09/24/2016 * I don't see STATIN onboard -- safe to Rx Dapto 2. Continue Levaquin 3. May transfer to SNF on current ABX . Problems: Consultation Date/Type/Reason Admit Date/Time Aug 13, 2016 at 16:30 Initial Consult Date 08/13/16 Type of Consultation: ID Referring Provider: KELLEN MEDINA MD Exam/Review of Systems Vital Signs Vitals Vital Signs Date Time Temp Pulse Resp B/P Pulse Ox O2 Delivery O2 Flow Rate FiO2 09/02/16 12:25 74 22 Nasal Cannula 5.0 09/02/16 11:46 97.9 116/74 99 09/02/16 11:27 40 Intake and Output 09/01/16 09/01/16 09/02/16 15:00 23:00 07:00 Intake Total 1705 ml 1150 ml Output Total 400 ml Balance 1705 ml 750 ml Results Result Diagram: 09/02/16 0640 09/02/16 0640 Results 24 hrs Laboratory Tests Test 09/01/16 17:24 09/01/16 20:20 09/01/16 21:34 09/02/16 06:40 Bedside Glucose 187 124 Vancomycin Level Trough 18.4 Anion Gap 18 H Basophils # 0.0 Basophils % 0.1 Blood Morphology Comment Blood Urea Nitrogen 86 H Calcium Level 7.9 L Carbon Dioxide Level 24 Chloride Level 96 L Creatinine 1.96 H Eosinophils # 0.6 H Eosinophils % 6.6 Glucose Level 86 # Hematocrit 29.6 L Hemoglobin 9.5 L Lymphocytes # 0.8 Lymphocytes % 8.5 L Magnesium Level 1.9 Mean Corpuscular Hemoglobin 25.4 L Mean Corpuscular Hemoglobin Concent 32.2 Mean Corpuscular Volume 79.0 L Mean Platelet Volume 8.2 Monocytes # 1.3 H Monocytes % 13.1 H Neutrophils # 7.0 Neutrophils % 71.7 Nucleated Red Blood Cells # 0.0 Nucleated Red Blood Cells % 0.0 Phosphorus Level 5.8 H Platelet Count 213 Potassium Level 5.2 H Red Blood Count 3.75 L Red Cell Distribution Width 22.4 H Sodium Level 133 L White Blood Count 9.7 Test 09/02/16 08:23 09/02/16 12:23 Bedside Glucose 95 143 Medications Medications Current Medications Acetaminophen (Tylenol Tab) 650 mg Q6H PRN PO PAIN LEVEL 1-3 OR FEVER; Start 08/13/16 at 17:30 Acetaminophen/ Hydrocodone Bitart ([place] (5/325)) 1 tab Q6H PRN PO MODERATE PAIN LEVEL 4-6 Last administered on 08/30/16at 02:54; Admin Dose 1 TAB; Start 08/13/16 at 17:30 Morphine Sulfate (morphine) 2 mg Q4H PRN IV SEVERE PAIN LEVEL 7-10 Last administered on 08/31/16at 15:53; Admin Dose 2 MG; Start 08/13/16 at 17:30 Docusate Sodium (Colace) 100 mg Q12H PRN PO CONSTIPATION; Start 08/13/16 at 17 :30 Heparin Sodium (Porcine) (Heparin (5000 Units/0.5 ml)) 5,000 unit Q12 SC Last administered on 08/25/16at 21:01; Admin Dose 5,000 UNIT; Start 08/13/16 at 21: 00; Status Future Hold Allopurinol (Zyloprim) 100 mg DAILY PO Last administered on 09/02/16 08:25; Admin Dose 100 MG; Start 08/14/16 at 09:00 Ascorbic Acid (Vitamin C) 500 mg DAILY PO Last administered on 09/02/16 08:24 ; Admin Dose 500 MG; Start 08/13/16 at 18:00 Aspirin (Halfprin) 81 mg DAILY PO Last administered on 09/02/16 08:24; Admin Dose 81 MG; Start 08/14/16 at 09:00 Atorvastatin Calcium (Lipitor) 10 mg QHS PO Last administered on 09/01/16 21: 38; Admin Dose 10 MG; Start 08/13/16 at 21:00 Cholecalciferol (Vitamin D) 1,000 unit DAILY PO Last administered on 08:24; Admin Dose 1,000 UNIT; Start 08/14/16 at 09:00 Ferrous Sulfate (Ferrous Sulfate (Ec)) 325 mg BID PO Last administered on 09/02 08:25; Admin Dose 325 MG; Start 08/13/16 at 21:00 Fish Oil (Fish Oil) 1,000 mg DAILY PO Last administered on 09/02/16 08:24; Admin Dose 1,000 MG; Start 08/14/16 at 09:00 Lactobacillus Acidoph/Bulgaricus (Floranex) 1 tab TID PO Last administered on 09/02/16 12:42; Admin Dose 1 TAB; Start 08/13/16 at 21:00 Metoprolol Tartrate (Lopressor) 12.5 mg BID PO Last administered on 09/02/16 08:26; Admin Dose 12.5 MG; Start 08/13/16 at 21:00 Pregabalin (Lyrica) 50 mg TID PO Last administered on 09/02/16 12:42; Admin Dose 50 MG; Start 08/13/16 at 21:00 Pyridoxine HCl (Vitamin B6) 100 mg DAILY PO Last administered on 09/02/16 08: 24; Admin Dose 100 MG; Start 08/14/16 at 09:00 Simethicone (Mylicon) 80 mg Q6H PRN PO INTESTINAL SPASMS/CRAMPING Last administered on 12/1/16at 15:27; Admin Dose 80 MG; Start 08/13/16 at 17:30 Vitamin E (Vitamin E) 400 units DAILY PO Last administered on 09/02/16at 08:24 ; Admin Dose 400 UNITS; Start 08/14/16 at 09:00 Fluoxetine HCl (Prozac) 20 mg DAILY PO Last administered on 09/02/16at 08:24; Admin Dose 20 MG; Start 08/14/16 at 09:00 Miscellaneous Information 1 ea NOTE XX ; Start 08/13/16 at 18:00 Glucose (Glutose) 15 gm Q15M PRN PO DECREASED GLUCOSE; Start 08/13/16 at 18:00 Glucose (Glutose) 22.5 gm Q15M PRN PO DECREASED GLUCOSE; Start 08/13/16 at 18: 00 Dextrose (D50w Syringe) 25 ml Q15M PRN IV DECREASED GLUCOSE; Start 08/13/16 at 18:00 Dextrose (D50w Syringe) 50 ml Q15M PRN IV DECREASED GLUCOSE; Start 08/13/16 at 18:00 Glucagon (Glucagen) 1 mg Q15M PRN IM DECREASED GLUCOSE; Start 08/13/16 at 18: 00 Glucose (Glutose) 15 gm Q15M PRN BUCCAL DECREASED GLUCOSE; Start 08/13/16 at 18:00 Sodium Hypochlorite (Dakin'S (1/4 Strength)) 1 applic DAILY IRR Last administered on 09/02/16at 08:24; Admin Dose 1 APPLIC; Start 08/13/16 at 20:00 Acetaminophen/ Hydrocodone Bitart ([place] (5/325)) 2 tab Q6H PRN PO MODERATE PAIN LEVEL 4-6 Last administered on 09/01/16at 14:26; Admin Dose 2 TAB; Start 08/14/16 at 13:00 IV Flush (NS 10 ml) 10 ml PRN PRN IV IV PTOTOCOL; Start 08/14/16 at 17:00 Acetylcysteine (Nac) 600 mg BID PO Last administered on 09/02/16at 08:25; Admin Dose 600 MG; Start 08/16/16 at 21:00 Ondansetron HCl (Zofran Inj) 4 mg Q4H PRN IV NAUSEA AND/OR VOMITING; Start 08/16/16 at 12:30 Zolpidem Tartrate (Ambien) 10 mg HS PRN PO INSOMNIA Last administered on at 23:57; Admin Dose 10 MG; Start 08/16/16 at 21:00 Lorazepam (Ativan) 1 mg Q6 PRN PO ANXIETY Last administered on 08/25/16at 22:08 ; Admin Dose 1 MG; Start 08/18/16 at 14:30 Insulin Glargine (Lantus) 15 unit QHS SC Last administered on 09/01/16 21:48 ; Admin Dose 15 UNIT; Start 08/19/16 at 21:00 Diagnostic Test (Pha) (Accucheck) 1 ea 02 XX Last administered on 08/30/16at 02 :47; Admin Dose 1 EA; Start 08/20/16 at 02:00 Phenol (Cepastat Lozenge) 1 lozenge Q1H PRN MT DRY MOUTH Last administered on 08/20/16at 21:28; Admin Dose 1 LOZENGE; Start 08/20/16 at 20:30 Lorazepam (Ativan) 1 mg HS PRN PO ANXIETY, HELP WITH SLEEP Last administered on 09/01/16at 22:11; Admin Dose 1 MG; Start 08/22/16 at 18:30 Diphenhydramine HCl (Benadryl) 25 mg Q6H PRN PO ITCHING Last administered on at 16:17; Admin Dose 25 MG; Start 08/26/16 at 20:30 Famotidine (Pepcid) 20 mg DAILY PO ; Start 09/03/16 at 09:00 Levofloxacin 250 mg 250 mg DAILY@06 PO ; Start 09/03/16 at 06:00 Vancomycin HCl/ Sodium Chloride (Vancocin/NS) 150 ml @ 75 mls/hr Q36H IVPB ; Start 09/03/16 at 12:00 JARED SALCEDO NP Sep 02, 2016 13:51
[2016-09-02] MEDS: SOD CHLORIDE 0.9% IVPB SCH (17:01)
[2016-09-02] MEDS: DAPTOMYCIN IVPB SCH (17:01)
[2016-09-02] MEDS: ZOLPIDEM 5 MG TAB PO PRN (21:26)
[2016-09-02] MEDS: ATORVASTATIN 10 MG TAB PO SCH (21:26)
[2016-09-02] MEDS: LORAZEPAM 1 MG TAB PO PRN (21:32)
[2016-09-02] MEDS: INSULIN GLARGINE [LANtus] 3 ML PEN SC SCH (21:40)
[2016-09-03] VITALS (19 sets, daily range): BP systolic 112–145; BP diastolic 63–77; PULSE 65–96; RESP 18–25
[2016-09-03] MEDS: ALBUTEROL/IPRATROPIUM (NEB) 3 ML AMP HHN SCH ×6 (01:28→21:43)
[2016-09-03] MEDS: ACCUCHECK XX SCH (02:00)
[2016-09-03] MEDS: LEVOFLOXACIN 250 MG TAB PO SCH (06:04)
[2016-09-03 07:14] LABS: EOSINOPHILS # 0.7 10^3/ul (0.0-0.5); EOSINOPHILS % 7.4 % (0.0-7.0); HEMATOCRIT 28.1 % (42.0-52.0); LYMPHOCYTES # 0.8 10^3/ul (0.8-2.9); LYMPHOCYTES % 8.9 % (15.0-51.0); MEAN CORPUSCULAR HEMOGLOBIN 25.2 pg (29.0-33.0); MEAN CORPUSCULAR HGB CONC 32.1 g/dl (32.0-37.0); MEAN CORPUSCULAR VOLUME 78.4 fl (82.0-101.0); MEAN PLATELET VOLUME 8.3 fl (7.4-10.4); MONOCYTE # 0.8 10^3/ul (0.3-0.9); NEUTROPHIL # 6.6 10^3/ul (1.6-7.5); NEUTROPHILS % 74.7 % (39.0-77.0); PLATELET COUNT 219 10^3/UL (140-440); RED BLOOD COUNT 3.59 10^6/ul (4.70-6.10); RED CELL DISTRIBUTION WIDTH 21.7 % (11.5-14.5); UNCORRECTED WBC 8.8 10^3/ul (4.8-10.8); WHITE BLOOD COUNT 8.8 10^3/ul (4.8-10.8)
[2016-09-03 07:15] LABS: CONDITION 1; LH ANALYZER COMMENTS 1
[2016-09-03 07:38] LABS: POTASSIUM 4.9 mmol/L (3.5-5.1)
[2016-09-03 07:40] LABS: CREATININE 2.01 mg/dl (0.61-1.24)
[2016-09-03 07:41] LABS: CALCIUM 7.8 mg/dl (8.4-10.2)
[2016-09-03] MEDS: INSULIN ASPART [NOVOLOG] 3 ML PEN SC SCH ×7 (07:44→22:13)
[2016-09-03 07:58] LABS: PHOSPHORUS 5.5 mg/dl (2.5-4.9)
[2016-09-03] MEDS: FISH OIL 1,000 MG CAP PO SCH (08:25)
[2016-09-03] MEDS: FLUOXETINE 20 MG CAP PO SCH (08:25)
[2016-09-03] MEDS: FERROUS SULFATE (EC) 325 MG TAB PO SCH ×2 (08:25→22:05)
[2016-09-03] MEDS: ASCORBIC ACID 500 MG TAB PO SCH (08:25)
[2016-09-03] MEDS: LACTOBACILLUS CHEW TAB PO SCH ×3 (08:25→22:06)
[2016-09-03] MEDS: ACETYLCYSTEINE 600 MG CAP PO SCH ×2 (08:25→22:05)
[2016-09-03] MEDS: SODIUM HYPOCHLORITE 0.125% 473 ML BTL IRR SCH (08:25)
[2016-09-03] MEDS: PYRIDOXINE 50 MG TAB PO SCH (08:26)
[2016-09-03] MEDS: VITAMIN E 400 UNITS CAP PO SCH (08:26)
[2016-09-03] MEDS: FAMOTIDINE 20 MG TAB PO SCH (08:26)
[2016-09-03] MEDS: ASPIRIN (EC) 81 MG TAB PO SCH (08:26)
[2016-09-03] MEDS: ALLOPURINOL 100 MG TAB PO SCH (08:27)
[2016-09-03] MEDS: METOPROLOL 25 MG TAB PO SCH ×2 (08:27→22:05)
[2016-09-03] MEDS: PREGABALIN 25 MG CAP PO SCH ×3 (08:35→22:05)
[2016-09-03] MEDS: CHOLECALCIFEROL 1,000 UNIT TAB PO SCH ×2 (09:00→12:27)
--- NOTE | 2016-09-03 11:09 | PN ---
Date/Time of Note Date/Time of Note DATE: 09/03/16 TIME: 11:02 Assessment/Plan VTE Prophylaxis VTE Prophylaxis Intervention: heparin Lines/Catheters IV C[facility]ter Type (from [facility] PICC Line Central line still needed: Yes Urinary Cath still in place: No Assessment/Plan Chief Complaint/Hosp Course Assessment and plan 1. Left great toe osteomyelitis. Continue antibiotics as per infectious disease. Status post evaluation by vascular surgery. Follow-up with recommendations. 2. Acute on chronic respiratory failure, hypoxic and hypercapnic. Still with more noted shortness of breath. We'll follow up on chest radiograph. Continue BiPAP at night.. Continue inhaled bronchodilators. Health Safety Instructor consulted 3. Pulmonary hypertension. Continue supplemental oxygen. 4. Acute on chronic kidney disease. Medications to be renally dosed. [employer] Operator following. Diuretics per nephrology 5. Congestive heart failure exacerbation. Acute on chronic diastolic dysfunction. Continue diuretics as per nephrology. 6. Type 2 diabetes mellitus. Hemoglobin A1c 5.8. Continue carbohydrate controlled diet. Continue sliding scale insulin. 7. Essential hypertension. Continue antihypertensives. Adjust as needed 8. History of atrial fibrillation. Currently in sinus rhythm. Continue telemetry monitoring 9. Dyslipidemia. Continue statins. 10. Gout. Continue allopurinol. 11. Major depression. Continue selective serotonin reuptake inhibitors. 12. Morbid obesity with BMI of 42.5 kg/meter squared. Weight reduction advised. 13. Fluid, electrolytes, and nutrition. Renal, carbohydrate controlled diet. 14. Deep vein thrombosis prophylaxis. Subcutaneous heparin. 15. Gastrointestinal prophylaxis. Histamine 2 blockers. Disposition and plan: Patient still noted with more shortness of breath. Health Safety Instructor follow. We will check follow-up chest radiograph. Discussed plan of care with Problems: Subjective 24 Hr Interval Summary Free Text/Dictation Still reports having some shortness of breath. Now much improved. Exam/Review of Systems Vital Signs Vitals Vital Signs Date Time Temp Pulse Resp B/P Pulse Ox O2 Delivery O2 Flow Rate FiO2 09/03/16 08:55 86 24 93 Nasal Cannula 5.0 40 09/03/16 07:31 97.5 144/67 Intake and Output 09/02/16 09/02/16 09/03/16 15:00 23:00 07:00 Intake Total 1100 ml 400 ml Output Total 1800 ml 600 ml Balance -700 ml -200 ml Exam General: In minimal distress. Reports having some shortness of breath. Morbidly obese Eyes: [pupils equal round, Anicteric sclera] Neck: Supple nontender, no JVD Cardiac: [S1, S2 auscultated, regular rhythm and rate] Pulmonary: Diminished at lung bases more notable on right lower lung base GI: [Abdomen soft nontender nondistended, bowel sounds active] Extremities: Edema bilateral lower extremities +2 to +3 Skin: Brownish discoloration of bilateral lower extremities Neurologic: [Alert to person place and time and situation] Results Result Diagram: 09/03/16 0610 09/03/16 0610 Results 24 hrs Laboratory Tests Test 09/02/16 12:23 09/02/16 17:03 09/02/16 21:36 09/03/16 06:10 Bedside Glucose 143 172 152 Anion Gap 16 Basophils # 0.0 Basophils % 0.0 Blood Morphology Comment Blood Urea Nitrogen 88 H Calcium Level 7.8 L Carbon Dioxide Level 27 Chloride Level 94 L Creatine Kinase 43 Creatinine 2.01 H Eosinophils # 0.7 H Eosinophils % 7.4 H Glucose Level 96 Hematocrit 28.1 L Hemoglobin 9.0 L Lymphocytes # 0.8 Lymphocytes % 8.9 L Magnesium Level 2.0 Mean Corpuscular Hemoglobin 25.2 L Mean Corpuscular Hemoglobin Concent 32.1 Mean Corpuscular Volume 78.4 L Mean Platelet Volume 8.3 Monocytes # 0.8 Monocytes % 9.0 Neutrophils # 6.6 Neutrophils % 74.7 Nucleated Red Blood Cells # 0.0 Nucleated Red Blood Cells % 0.0 Phosphorus Level 5.5 H Platelet Count 219 Potassium Level 4.9 Red Blood Count 3.59 L Red Cell Distribution Width 21.7 H Sodium Level 132 L White Blood Count 8.8 Test 09/03/16 07:41 Bedside Glucose 97 Medications Medications Current Medications Acetaminophen (Tylenol Tab) 650 mg Q6H PRN PO PAIN LEVEL 1-3 OR FEVER; Start 08/13/16 at 17:30 Acetaminophen/ Hydrocodone Bitart ([place] (5/325)) 1 tab Q6H PRN PO MODERATE PAIN LEVEL 4-6 Last administered on 08/30/16at 02:54; Admin Dose 1 TAB; Start 08/13/16 at 17:30 Morphine Sulfate (morphine) 2 mg Q4H PRN IV SEVERE PAIN LEVEL 7-10 Last administered on 08/31/16at 15:53; Admin Dose 2 MG; Start 08/13/16 at 17:30 Docusate Sodium (Colace) 100 mg Q12H PRN PO CONSTIPATION; Start 08/13/16 at 17 :30 Heparin Sodium (Porcine) (Heparin (5000 Units/0.5 ml)) 5,000 unit Q12 SC Last administered on 08/25/16 21:01; Admin Dose 5,000 UNIT; Start 08/13/16 at 21: 00; Status Future Hold Allopurinol (Zyloprim) 100 mg DAILY PO Last administered on 09/03/16 08:27; Admin Dose 100 MG; Start 08/14/16 at 09:00 Ascorbic Acid (Vitamin C) 500 mg DAILY PO Last administered on 09/03/16 08:25 ; Admin Dose 500 MG; Start 08/13/16 at 18:00 Aspirin (Halfprin) 81 mg DAILY PO Last administered on 09/03/16 08:26; Admin Dose 81 MG; Start 08/14/16 at 09:00 Atorvastatin Calcium (Lipitor) 10 mg QHS PO Last administered on 09/02/16 21: 26; Admin Dose 10 MG; Start 08/13/16 at 21:00 Cholecalciferol (Vitamin D) 1,000 unit DAILY PO Last administered on 08:24; Admin Dose 1,000 UNIT; Start 08/14/16 at 09:00 Ferrous Sulfate (Ferrous Sulfate (Ec)) 325 mg BID PO Last administered on 09/03 08:25; Admin Dose 325 MG; Start 08/13/16 at 21:00 Fish Oil (Fish Oil) 1,000 mg DAILY PO Last administered on 09/03/16 08:25; Admin Dose 1,000 MG; Start 08/14/16 at 09:00 Lactobacillus Acidoph/Bulgaricus (Floranex) 1 tab TID PO Last administered on 09/03/16 08:25; Admin Dose 1 TAB; Start 08/13/16 at 21:00 Metoprolol Tartrate (Lopressor) 12.5 mg BID PO Last administered on 09/03/16 08:27; Admin Dose 12.5 MG; Start 08/13/16 at 21:00 Pregabalin (Lyrica) 50 mg TID PO Last administered on 12/19/16at 08:35; Admin Dose 50 MG; Start 08/13/16 at 21:00 Pyridoxine HCl (Vitamin B6) 100 mg DAILY PO Last administered on 09/03/16at 08: 26; Admin Dose 100 MG; Start 08/14/16 at 09:00 Simethicone (Mylicon) 80 mg Q6H PRN PO INTESTINAL SPASMS/CRAMPING Last administered on 09/02/16at 17:10; Admin Dose 80 MG; Start 08/13/16 at 17:30 Vitamin E (Vitamin E) 400 units DAILY PO Last administered on 09/03/16at 08:26 ; Admin Dose 400 UNITS; Start 08/14/16 at 09:00 Fluoxetine HCl (Prozac) 20 mg DAILY PO Last administered on 09/03/16at 08:25; Admin Dose 20 MG; Start 08/14/16 at 09:00 Miscellaneous Information 1 ea NOTE XX ; Start 08/13/16 at 18:00 Glucose (Glutose) 15 gm Q15M PRN PO DECREASED GLUCOSE; Start 08/13/16 at 18:00 Glucose (Glutose) 22.5 gm Q15M PRN PO DECREASED GLUCOSE; Start 08/13/16 at 18: 00 Dextrose (D50w Syringe) 25 ml Q15M PRN IV DECREASED GLUCOSE; Start 08/13/16 at 18:00 Dextrose (D50w Syringe) 50 ml Q15M PRN IV DECREASED GLUCOSE; Start 08/13/16 at 18:00 Glucagon (Glucagen) 1 mg Q15M PRN IM DECREASED GLUCOSE; Start 08/13/16 at 18: 00 Glucose (Glutose) 15 gm Q15M PRN BUCCAL DECREASED GLUCOSE; Start 08/13/16 at 18:00 Sodium Hypochlorite ([place]akin[place] (1/4 Strength)) 1 applic DAILY IRR Last administered on 09/03/16at 08:25; Admin Dose 1 APPLIC; Start 08/13/16 at 20:00 Acetaminophen/ Hydrocodone Bitart ([place] (5/325)) 2 tab Q6H PRN PO MODERATE PAIN LEVEL 4-6 Last administered on 09/01/16at 14:26; Admin Dose 2 TAB; Start 08/14/16 at 13:00 IV Flush (NS 10 ml) 10 ml PRN PRN IV IV PTOTOCOL; Start 08/14/16 at 17:00 Acetylcysteine (Nac) 600 mg BID PO Last administered on 09/03/16 08:25; Admin Dose 600 MG; Start 08/16/16 at 21:00 Ondansetron HCl (Zofran Inj) 4 mg Q4H PRN IV NAUSEA AND/OR VOMITING; Start 08/16/16 at 12:30 Zolpidem Tartrate (Ambien) 10 mg HS PRN PO INSOMNIA Last administered on 21:26; Admin Dose 10 MG; Start 08/16/16 at 21:00 Lorazepam (Ativan) 1 mg Q6 PRN PO ANXIETY Last administered on 08/25/16 22:08 ; Admin Dose 1 MG; Start 08/18/16 at 14:30 Insulin Glargine (Lantus) 15 unit QHS SC Last administered on 09/02/16 21:40 ; Admin Dose 15 UNIT; Start 08/19/16 at 21:00 Diagnostic Test (Pha) (Accucheck) 1 ea 02 XX Last administered on 08/30/16at 02 :47; Admin Dose 1 EA; Start 08/20/16 at 02:00 Phenol (Cepastat Lozenge) 1 lozenge Q1H PRN MT DRY MOUTH Last administered on 08/20/16 21:28; Admin Dose 1 LOZENGE; Start 08/20/16 at 20:30 Lorazepam (Ativan) 1 mg HS PRN PO ANXIETY, HELP WITH SLEEP Last administered on 09/02/16at 21:32; Admin Dose 1 MG; Start 08/22/16 at 18:30 Diphenhydramine HCl (Benadryl) 25 mg Q6H PRN PO ITCHING Last administered on 16:17; Admin Dose 25 MG; Start 08/26/16 at 20:30 Famotidine (Pepcid) 20 mg DAILY PO Last administered on 09/03/16 08:26; Admin Dose 20 MG; Start 09/03/16 at 09:00 Levofloxacin 250 mg 250 mg DAILY@06 PO Last administered on 09/03/16 06:04; Admin Dose 250 MG; Start 09/03/16 at 06:00 Daptomycin/Sodium Chloride (Cubicin/NS) 100 ml @ 200 mls/hr Q24H IVPB Last administered on 12/18/16at 17:01; Admin Dose 200 MLS/HR; Start 09/02/16 at 16: 00; Stop 09/25/17 at 15:59 GIUSEPPE BREAUX Sep 03, 2016 11:09
[2016-09-03] MEDS ORDERED: VANCOMYCIN 750 MG in SOD CHLORIDE 0.9% 150 ML IVPB SCH (12:00)
[2016-09-03] MEDS: morphine 2 MG INJ IV PRN (12:28)
--- NOTE | 2016-09-03 13:43 | RADRPT ---
PROCEDURE: XR Chest. CLINICAL INDICATION: Dyspnea TECHNIQUE: Chest AP portable. COMPARISON: 08/31/2016 FINDINGS: No change in right arm PICC. The mediastinal structures are unremarkable. There is moderate cardiac enlargement. There is mild pulmonary venous hypertension. There is no change in the RLL patchy consolidation / subsegmental at electasis. There is a small to moderate-sized right pleural effusion. There is minimal left basila r subsegmental atelectasis. There are senescent changes of the axial skeleton. IMPRESSION: Moderate cardiac enlargement. Mild pulmonary venous hypertension. No change in RLL patchy consolidation / subsegmental atelectasis Minimal left basilar subsegmental atelectasis. Small to moderate-sized right pleural effusion. RPTAT: HGDB .Jaya áVzquez MD, Date Time Electronically viewed and signed by .Jaya Vázquez MD, on 09/03/2016 13:42 .B/
--- NOTE | 2016-09-03 15:55 | CONS ---
Date/Time of Note Date/Time of Note DATE: 09/03/16 TIME: 15:52 Consult Date/Type/Reason Admit Date/Time Aug 13, 2016 at 16:30 Initial Consult Date 08/13/16 Type of Consultation: ID Ordering Provider: KELLEN MEDINA MD Subjective alert, c/o increased swelling and water retention, not urinating enough without diuretics, no fevers, nad Objective Vital Signs Date Time Temp Pulse Resp B/P Pulse Ox O2 Delivery O2 Flow Rate FiO2 09/03/16 15:45 97.9 85 18 124/65 96 09/03/16 15:00 40 09/03/16 14:00 5.0 09/03/16 13:58 Nasal Cannula Intake and Output 09/02/16 09/02/16 09/03/16 15:00 23:00 07:00 Intake Total 1100 ml 400 ml Output Total 1800 ml 600 ml Balance -700 ml -200 ml Results/Medications Result Diagram: 09/03/16 0610 09/03/16 0610 Results 24 hrs Laboratory Tests Test 09/02/16 17:03 09/02/16 21:36 09/03/16 06:10 09/03/16 07:41 Bedside Glucose 172 152 97 Anion Gap 16 Basophils # 0.0 Basophils % 0.0 Blood Morphology Comment Blood Urea Nitrogen 88 H Calcium Level 7.8 L Carbon Dioxide Level 27 Chloride Level 94 L Creatine Kinase 43 Creatinine 2.01 H Eosinophils # 0.7 H Eosinophils % 7.4 H Glucose Level 96 Hematocrit 28.1 L Hemoglobin 9.0 L Lymphocytes # 0.8 Lymphocytes % 8.9 L Magnesium Level 2.0 Mean Corpuscular Hemoglobin 25.2 L Mean Corpuscular Hemoglobin Concent 32.1 Mean Corpuscular Volume 78.4 L Mean Platelet Volume 8.3 Monocytes # 0.8 Monocytes % 9.0 Neutrophils # 6.6 Neutrophils % 74.7 Nucleated Red Blood Cells # 0.0 Nucleated Red Blood Cells % 0.0 Phosphorus Level 5.5 H Platelet Count 219 Potassium Level 4.9 Red Blood Count 3.59 L Red Cell Distribution Width 21.7 H Sodium Level 132 L White Blood Count 8.8 Test 09/03/16 11:59 Bedside Glucose 171 Medications Current Medications Acetaminophen (Tylenol Tab) 650 mg Q6H PRN PO PAIN LEVEL 1-3 OR FEVER; Start 08/13/16 at 17:30 Acetaminophen/ Hydrocodone Bitart ([place] (5/325)) 1 tab Q6H PRN PO MODERATE PAIN LEVEL 4-6 Last administered on 08/30/16 02:54; Admin Dose 1 TAB; Start 08/13/16 at 17:30 Morphine Sulfate (morphine) 2 mg Q4H PRN IV SEVERE PAIN LEVEL 7-10 Last administered on 09/03/16 12:28; Admin Dose 2 MG; Start 08/13/16 at 17:30 Docusate Sodium (Colace) 100 mg Q12H PRN PO CONSTIPATION; Start 08/13/16 at 17 :30 Heparin Sodium (Porcine) (Heparin (5000 Units/0.5 ml)) 5,000 unit Q12 SC Last administered on 08/25/16 21:01; Admin Dose 5,000 UNIT; Start 08/13/16 at 21: 00; Status Future Hold Allopurinol (Zyloprim) 100 mg DAILY PO Last administered on 09/03/16 08:27; Admin Dose 100 MG; Start 08/14/16 at 09:00 Ascorbic Acid (Vitamin C) 500 mg DAILY PO Last administered on 09/03/16 08:25 ; Admin Dose 500 MG; Start 08/13/16 at 18:00 Aspirin (Halfprin) 81 mg DAILY PO Last administered on 09/03/16 08:26; Admin Dose 81 MG; Start 08/14/16 at 09:00 Atorvastatin Calcium (Lipitor) 10 mg QHS PO Last administered on 09/02/16 21: 26; Admin Dose 10 MG; Start 08/13/16 at 21:00 Cholecalciferol (Vitamin D) 1,000 unit DAILY PO Last administered on 12:27; Admin Dose 1,000 UNIT; Start 08/14/16 at 09:00 Ferrous Sulfate (Ferrous Sulfate (Ec)) 325 mg BID PO Last administered on 09/03 08:25; Admin Dose 325 MG; Start 08/13/16 at 21:00 Fish Oil (Fish Oil) 1,000 mg DAILY PO Last administered on 09/03/16 08:25; Admin Dose 1,000 MG; Start 08/14/16 at 09:00 Lactobacillus Acidoph/Bulgaricus (Floranex) 1 tab TID PO Last administered on 09/03/16 12:27; Admin Dose 1 TAB; Start 08/13/16 at 21:00 Metoprolol Tartrate (Lopressor) 12.5 mg BID PO Last administered on 09/03/16 08:27; Admin Dose 12.5 MG; Start 08/13/16 at 21:00 Pregabalin (Lyrica) 50 mg TID PO Last administered on 09/03/16 12:28; Admin Dose 50 MG; Start 08/13/16 at 21:00 Pyridoxine HCl (Vitamin B6) 100 mg DAILY PO Last administered on 09/03/16 08: 26; Admin Dose 100 MG; Start 08/14/16 at 09:00 Simethicone (Mylicon) 80 mg Q6H PRN PO INTESTINAL SPASMS/CRAMPING Last administered on 09/02/16 17:10; Admin Dose 80 MG; Start 08/13/16 at 17:30 Vitamin E (Vitamin E) 400 units DAILY PO Last administered on 09/03/16 08:26 ; Admin Dose 400 UNITS; Start 08/14/16 at 09:00 Fluoxetine HCl (Prozac) 20 mg DAILY PO Last administered on 09/03/16 08:25; Admin Dose 20 MG; Start 08/14/16 at 09:00 Miscellaneous Information 1 ea NOTE XX ; Start 08/13/16 at 18:00 Glucose (Glutose) 15 gm Q15M PRN PO DECREASED GLUCOSE; Start 08/13/16 at 18:00 Glucose (Glutose) 22.5 gm Q15M PRN PO DECREASED GLUCOSE; Start 08/13/16 at 18: 00 Dextrose (D50w Syringe) 25 ml Q15M PRN IV DECREASED GLUCOSE; Start 08/13/16 at 18:00 Dextrose (D50w Syringe) 50 ml Q15M PRN IV DECREASED GLUCOSE; Start 08/13/16 at 18:00 Glucagon (Glucagen) 1 mg Q15M PRN IM DECREASED GLUCOSE; Start 08/13/16 at 18: 00 Glucose (Glutose) 15 gm Q15M PRN BUCCAL DECREASED GLUCOSE; Start 08/13/16 at 18:00 Sodium Hypochlorite (Dakin'S (1/4 Strength)) 1 applic DAILY IRR Last administered on 09/03/16 08:25; Admin Dose 1 APPLIC; Start 08/13/16 at 20:00 Acetaminophen/ Hydrocodone Bitart ([place] (5/325)) 2 tab Q6H PRN PO MODERATE PAIN LEVEL 4-6 Last administered on 09/01/16at 14:26; Admin Dose 2 TAB; Start 08/14/16 at 13:00 IV Flush (NS 10 ml) 10 ml PRN PRN IV IV PTOTOCOL; Start 08/14/16 at 17:00 Acetylcysteine (Nac) 600 mg BID PO Last administered on 09/03/16at 08:25; Admin Dose 600 MG; Start 08/16/16 at 21:00 Ondansetron HCl (Zofran Inj) 4 mg Q4H PRN IV NAUSEA AND/OR VOMITING; Start 08/16/16 at 12:30 Zolpidem Tartrate (Ambien) 10 mg HS PRN PO INSOMNIA Last administered on 21:26; Admin Dose 10 MG; Start 08/16/16 at 21:00 Lorazepam (Ativan) 1 mg Q6 PRN PO ANXIETY Last administered on 08/25/16at 22:08 ; Admin Dose 1 MG; Start 08/18/16 at 14:30 Insulin Glargine (Lantus) 15 unit QHS SC Last administered on 09/02/16 21:40 ; Admin Dose 15 UNIT; Start 08/19/16 at 21:00 Diagnostic Test (Pha) (Accucheck) 1 ea 02 XX Last administered on 08/30/16at 02 :47; Admin Dose 1 EA; Start 08/20/16 at 02:00 Phenol (Cepastat Lozenge) 1 lozenge Q1H PRN MT DRY MOUTH Last administered on 08/20/16 21:28; Admin Dose 1 LOZENGE; Start 08/20/16 at 20:30 Lorazepam (Ativan) 1 mg HS PRN PO ANXIETY, HELP WITH SLEEP Last administered on 09/02/16 21:32; Admin Dose 1 MG; Start 08/22/16 at 18:30 Diphenhydramine HCl (Benadryl) 25 mg Q6H PRN PO ITCHING Last administered on 16:17; Admin Dose 25 MG; Start 08/26/16 at 20:30 Famotidine (Pepcid) 20 mg DAILY PO Last administered on 12/19/16at 08:26; Admin Dose 20 MG; Start 09/03/16 at 09:00 Levofloxacin 250 mg 250 mg DAILY@06 PO Last administered on 09/03/16at 06:04; Admin Dose 250 MG; Start 09/03/16 at 06:00 Daptomycin/Sodium Chloride (Cubicin/NS) 100 ml @ 200 mls/hr Q24H IVPB Last administered on 09/02/16at 17:01; Admin Dose 200 MLS/HR; Start 09/02/16 at 16: 00; Stop 09/25/17 at 15:59 Assessment/Plan Chief Complaint/Hosp Course MICROBIOLOGY: 08/13/16 Bld cx+ [facility] DIAGNOSTICS: 08/14/16 MRI revealed cellulitis and osteomyelitis of the left first toe. ANTIMICROBIALS: Daptomycin Levaquin Urinalysis on admission was negative. PHYSICAL EXAMINATION: GENERAL: Obese, well-developed, middle-aged white man who is sitting in a chair. Patient is in no distress. HEENT: Head atraumatic, normocephalic. Sclerae anicteric. Buccal mucosa dry. NECK: Supple, trachea midline. CHEST: Rise symmetrical. Breath sounds clear, diminished to bases. HEART: S1, S2. ABDOMEN: Soft, bowel tones present. EXTREMITIES: Bilateral Patrick wraps. ASSESSMENT: 1. Bilateral lower extremities acute on chronic cellulitis with chronic venous stasis and left toe osteomyelitis. 2. Systemic inflammatory response syndrome 2 to above. 3. S/p septicemia==>KENAN 4. Questionable pneumonia as per chest x-ray. 5. Morbid obesity. 6. Atrial fibrillation, chronic. 7. Chronic kidney disease. 8. PAD==> s/p angiogram PLAN: Clinically unchanged, with worsening renal f-n, continue abx, may need HD , f/u nephrology/card/podiatry rec-s DW Dr Yudith CURRIE patient Problems: JAMEY VAZQUEZ NP Sep 03, 2016 15:55
[2016-09-03] MEDS: DAPTOMYCIN IVPB SCH (16:21)
[2016-09-03] MEDS: SOD CHLORIDE 0.9% IVPB SCH (16:21)
[2016-09-03] MEDS: HYDROCODONE/APAP (5/325) TAB PO PRN (16:22)
--- NOTE | 2016-09-03 17:32 | CONS ---
DATE OF ADMISSION: 08/13/2016 DATE OF CONSULTATION: 09/03/2016 REASON FOR CONSULTATION: Abnormal chest x-ray, shortness of breath. Thank you, Dr. Lindo, for this consultation. HISTORY OF PRESENT ILLNESS: This is a 60-year-old gentleman with multiple medical problems includin g lower extremity osteomyelitis, acute on chronic hypercapnic respiratory failure with underlying ob structive sleep apnea, pulmonary hypertension, hyperlipidemia, congestive cardiac failure, type 2 di abetes, history of gout, history of depression, and morbid obesity who has been having increasing sh ortness of breath, cough, congestion and on review of his imaging, has had persistent right lower lo be infiltrate and/or effusion. States he has a productive cough, yellow-green sputum, but no hemopt ysis or hematemesis. No nausea, no vomiting. He has limited mobility secondary to his peripheral v ascular disease. MEDICATIONS: Per chart. ALLERGIES: NONE. SOCIAL HISTORY: Ex-smoker, no alcohol, no history of drug use. FAMILY HISTORY: Noncontributory, 12-point review of systems was negative other than that mentioned above. PHYSICAL EXAMINATION: GENERAL: Elderly gentleman, comfortable at rest, no acute distress. VITAL SIGNS: Currently afebrile, pulse is 79, blood pressure 145/55, O2 saturation 96 on FIO2 of 4 liters. NECK: Supple. No JVD or lymphadenopathy. CARDIAC: S1, S2. No added sounds or murmurs. CHEST: Diminished air entry right base. ABDOMEN: Soft, nontender, obese. EXTREMITIES: No cyanosis, clubbing, edema. NEUROLOGIC: Generalized weakness. LABORATORY DATA: White count 8.8, hemoglobin 9, platelets of 219. BUN 88, creatinine 2.01. INR 1. 26. ABG is pending at time of this dictation. Chest x-ray as stated. IMPRESSION: 1. Recurrent right lower lobe infiltrate and/or effusion of unclear etiology, may be secondary to c ongestive cardiac failure. 2. Differential does include cryptogenic organizing pneumonia. 3. Possible aspiration component, although this is less likely. PLAN: The patient will require: 1. CT chest to evaluate lung parenchyma. 2. Continue aspiration precautions. 3. Wound care for lower extremity osteomyelitis. 4. Glycemic control. 5. Monitor fluid balance, consider more aggressive diuretics. Dictated By: EDNA BUSTILLO MD SV/GREGORY Conf#: [id number] DID#: [id number] CC: KELLEN MEDINA MD; GERI LINDO MD;*[facility]*
--- NOTE | 2016-09-03 19:56 | CONS ---
Date/Time of Note Date/Time of Note DATE: 09/03/16 TIME: 19:47 Assessment/Plan Assessment/Plan Problems: (1) Fluid overload Comment: not responding to diuretics (2) Pulmonary hypertension Comment: aper pulmonary, will check ABG n/c in AM (3) Obesity Comment: prob contributing to PH (4) Acute renal injury Status: Acute Comment: Mostly Pre-renal: difficult problem will discuss with the senior art director Pt needs echo (5) Hypoxia Status: Acute (6) Diabetic foot infection Status: Acute Comment: Pt continues to be on multiple antibiotics which are prob contributing to the ongoing LORNA I spoke to ID re cutting down Anibiotics Additional Assessment/Plan Extensive discussion with pt. If he remains poorly responsive to diuretics, may have no choice but to consider UF with HD Meanwhile, consider aadding Zaroxylin to facilitate diuresis. Consultation Date/Type/Reason Admit Date/Time Aug 13, 2016 at 16:30 Initial Consult Date 08/13/16 Type of Consultation: renal Referring Provider: KELLEN MEDINA MD 24 HR Interval Summary Subjective hx not possible: pt critical status Constitutional: requiring O2 (on Bipap) Exam/Review of Systems Vital Signs Vitals Vital Signs Date Time Temp Pulse Resp B/P Pulse Ox O2 Delivery O2 Flow Rate FiO2 09/03/16 18:59 97.9 75 22 144/71 96 09/03/16 17:52 6.0 09/03/16 16:45 Nasal Cannula 09/03/16 15:00 40 Intake and Output 09/02/16 09/02/16 09/03/16 15:00 23:00 07:00 Intake Total 1100 ml 400 ml Output Total 1800 ml 600 ml Balance -700 ml -200 ml Exam Constitutional: alert, distress, oriented Psych: depression Head: normocephalic Eyes: PERRL ENMT: nl external ears & nose Neck: jvd, supple Respiratory: crackles/rales, intercostal retraction, labored breathing Cardiovascular: regular rate and rhythm Gastrointestinal: soft Genitourinary - Male: nl penis Musculoskeletal: swelling Extremities: edema, other (both legs are rapped) 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: SKI BASE TRIMMER 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 Skin: nl turgor Additional Comments BUN/Creat continue to rise Results Result Diagram: 09/03/16 0610 09/03/16 0610 Results 24 hrs Laboratory Tests Test 09/02/16 21:36 09/03/16 06:10 09/03/16 07:41 09/03/16 11:59 Bedside Glucose 152 97 171 Anion Gap 16 Basophils # 0.0 Basophils % 0.0 Blood Morphology Comment Blood Urea Nitrogen 88 H Calcium Level 7.8 L Carbon Dioxide Level 27 Chloride Level 94 L Creatine Kinase 43 Creatinine 2.01 H Eosinophils # 0.7 H Eosinophils % 7.4 H Glucose Level 96 Hematocrit 28.1 L Hemoglobin 9.0 L Lymphocytes # 0.8 Lymphocytes % 8.9 L Magnesium Level 2.0 Mean Corpuscular Hemoglobin 25.2 L Mean Corpuscular Hemoglobin Concent 32.1 Mean Corpuscular Volume 78.4 L Mean Platelet Volume 8.3 Monocytes # 0.8 Monocytes % 9.0 Neutrophils # 6.6 Neutrophils % 74.7 Nucleated Red Blood Cells # 0.0 Nucleated Red Blood Cells % 0.0 Phosphorus Level 5.5 H Platelet Count 219 Potassium Level 4.9 Red Blood Count 3.59 L Red Cell Distribution Width 21.7 H Sodium Level 132 L White Blood Count 8.8 Test 09/03/16 17:04 Bedside Glucose 150 Medications Medications Current Medications Acetaminophen (Tylenol Tab) 650 mg Q6H PRN PO PAIN LEVEL 1-3 OR FEVER; Start 08/13/16 at 17:30 Acetaminophen/ Hydrocodone Bitart ([place] (5/325)) 1 tab Q6H PRN PO MODERATE PAIN LEVEL 4-6 Last administered on 08/30/16at 02:54; Admin Dose 1 TAB; Start 08/13/16 at 17:30 Morphine Sulfate (morphine) 2 mg Q4H PRN IV SEVERE PAIN LEVEL 7-10 Last administered on 09/03/16at 12:28; Admin Dose 2 MG; Start 08/13/16 at 17:30 Docusate Sodium (Colace) 100 mg Q12H PRN PO CONSTIPATION; Start 08/13/16 at 17 :30 Heparin Sodium (Porcine) (Heparin (5000 Units/0.5 ml)) 5,000 unit Q12 SC Last administered on 08/25/16at 21:01; Admin Dose 5,000 UNIT; Start 08/13/16 at 21: 00; Status Future Hold Allopurinol (Zyloprim) 100 mg DAILY PO Last administered on 09/03/16at 08:27; Admin Dose 100 MG; Start 08/14/16 at 09:00 Ascorbic Acid (Vitamin C) 500 mg DAILY PO Last administered on 09/03/16 08:25 ; Admin Dose 500 MG; Start 08/13/16 at 18:00 Aspirin (Halfprin) 81 mg DAILY PO Last administered on 09/03/16 08:26; Admin Dose 81 MG; Start 08/14/16 at 09:00 Atorvastatin Calcium (Lipitor) 10 mg QHS PO Last administered on 09/02/16 21: 26; Admin Dose 10 MG; Start 08/13/16 at 21:00 Cholecalciferol (Vitamin D) 1,000 unit DAILY PO Last administered on 12:27; Admin Dose 1,000 UNIT; Start 08/14/16 at 09:00 Ferrous Sulfate (Ferrous Sulfate (Ec)) 325 mg BID PO Last administered on 09/03 08:25; Admin Dose 325 MG; Start 08/13/16 at 21:00 Fish Oil (Fish Oil) 1,000 mg DAILY PO Last administered on 09/03/16 08:25; Admin Dose 1,000 MG; Start 08/14/16 at 09:00 Lactobacillus Acidoph/Bulgaricus (Floranex) 1 tab TID PO Last administered on 09/03/16 12:27; Admin Dose 1 TAB; Start 08/13/16 at 21:00 Metoprolol Tartrate (Lopressor) 12.5 mg BID PO Last administered on 09/03/16 08:27; Admin Dose 12.5 MG; Start 08/13/16 at 21:00 Pregabalin (Lyrica) 50 mg TID PO Last administered on 09/03/16 12:28; Admin Dose 50 MG; Start 08/13/16 at 21:00 Pyridoxine HCl (Vitamin B6) 100 mg DAILY PO Last administered on 09/03/16 08: 26; Admin Dose 100 MG; Start 08/14/16 at 09:00 Simethicone (Mylicon) 80 mg Q6H PRN PO INTESTINAL SPASMS/CRAMPING Last administered on 09/02/16 17:10; Admin Dose 80 MG; Start 08/13/16 at 17:30 Vitamin E (Vitamin E) 400 units DAILY PO Last administered on 09/03/16 08:26 ; Admin Dose 400 UNITS; Start 08/14/16 at 09:00 Fluoxetine HCl (Prozac) 20 mg DAILY PO Last administered on 09/03/16at 08:25; Admin Dose 20 MG; Start 08/14/16 at 09:00 Miscellaneous Information 1 ea NOTE XX ; Start 08/13/16 at 18:00 Glucose (Glutose) 15 gm Q15M PRN PO DECREASED GLUCOSE; Start 08/13/16 at 18:00 Glucose (Glutose) 22.5 gm Q15M PRN PO DECREASED GLUCOSE; Start 08/13/16 at 18: 00 Dextrose (D50w Syringe) 25 ml Q15M PRN IV DECREASED GLUCOSE; Start 08/13/16 at 18:00 Dextrose (D50w Syringe) 50 ml Q15M PRN IV DECREASED GLUCOSE; Start 08/13/16 at 18:00 Glucagon (Glucagen) 1 mg Q15M PRN IM DECREASED GLUCOSE; Start 08/13/16 at 18: 00 Glucose (Glutose) 15 gm Q15M PRN BUCCAL DECREASED GLUCOSE; Start 08/13/16 at 18:00 Sodium Hypochlorite (Dakin'S (1/4 Strength)) 1 applic DAILY IRR Last administered on 09/03/16at 08:25; Admin Dose 1 APPLIC; Start 08/13/16 at 20:00 Acetaminophen/ Hydrocodone Bitart ([place] (5/325)) 2 tab Q6H PRN PO MODERATE PAIN LEVEL 4-6 Last administered on 09/03/16at 16:22; Admin Dose 2 TAB; Start 08/14/16 at 13:00 IV Flush (NS 10 ml) 10 ml PRN PRN IV IV PTOTOCOL; Start 08/14/16 at 17:00 Acetylcysteine (Nac) 600 mg BID PO Last administered on 09/03/16at 08:25; Admin Dose 600 MG; Start 08/16/16 at 21:00 Ondansetron HCl (Zofran Inj) 4 mg Q4H PRN IV NAUSEA AND/OR VOMITING; Start 08/16/16 at 12:30 Zolpidem Tartrate (Ambien) 10 mg HS PRN PO INSOMNIA Last administered on at 21:26; Admin Dose 10 MG; Start 08/16/16 at 21:00 Lorazepam (Ativan) 1 mg Q6 PRN PO ANXIETY Last administered on 08/25/16 22:08 ; Admin Dose 1 MG; Start 08/18/16 at 14:30 Insulin Glargine (Lantus) 15 unit QHS SC Last administered on 09/02/16 21:40 ; Admin Dose 15 UNIT; Start 08/19/16 at 21:00 Diagnostic Test (Pha) (Accucheck) 1 ea 02 XX Last administered on 08/30/16 02 :47; Admin Dose 1 EA; Start 08/20/16 at 02:00 Phenol (Cepastat Lozenge) 1 lozenge Q1H PRN MT DRY MOUTH Last administered on 08/20/16 21:28; Admin Dose 1 LOZENGE; Start 08/20/16 at 20:30 Lorazepam (Ativan) 1 mg HS PRN PO ANXIETY, HELP WITH SLEEP Last administered on 09/02/16at 21:32; Admin Dose 1 MG; Start 08/22/16 at 18:30 Diphenhydramine HCl (Benadryl) 25 mg Q6H PRN PO ITCHING Last administered on at 16:17; Admin Dose 25 MG; Start 08/26/16 at 20:30 Famotidine (Pepcid) 20 mg DAILY PO Last administered on 09/03/16 08:26; Admin Dose 20 MG; Start 09/03/16 at 09:00 Levofloxacin 250 mg 250 mg DAILY@06 PO Last administered on 09/03/16 06:04; Admin Dose 250 MG; Start 09/03/16 at 06:00 Daptomycin/Sodium Chloride (Cubicin/NS) 100 ml @ 200 mls/hr Q24H IVPB Last administered on 09/03/16at 16:21; Admin Dose 200 MLS/HR; Start 09/02/16 at 16: 00; Stop 09/25/17 at 15:59 ALONSO MARTINEZ MD Sep 03, 2016 19:55
[2016-09-03] MEDS ORDERED: METOLAZONE 10 MG TAB PO ONE (20:00)
[2016-09-03] MEDS: ATORVASTATIN 10 MG TAB PO SCH (22:04)
[2016-09-03] MEDS: INSULIN GLARGINE [LANtus] 3 ML PEN SC SCH (22:14)
[2016-09-03] MEDS: ZOLPIDEM 5 MG TAB PO PRN (23:14)
[2016-09-03] MEDS: LORAZEPAM 1 MG TAB PO PRN (23:57)
[2016-09-04] VITALS (19 sets, daily range): BP systolic 121–148; BP diastolic 59–78; PULSE 70–89; RESP 16–22
[2016-09-04] MEDS: ALBUTEROL/IPRATROPIUM (NEB) 3 ML AMP HHN SCH ×6 (01:04→20:33)
[2016-09-04] MEDS: ACCUCHECK XX SCH (02:00)
[2016-09-04] MEDS: LEVOFLOXACIN 250 MG TAB PO SCH (06:22)
[2016-09-04] MEDS: INSULIN ASPART [NOVOLOG] 3 ML PEN SC SCH ×7 (07:55→21:00)
[2016-09-04] MEDS: SODIUM HYPOCHLORITE 0.125% 473 ML BTL IRR SCH (09:04)
[2016-09-04] MEDS: CALCIUM CARBONATE 500 MG CHEW TAB PO SCH ×3 (09:04→17:22)
[2016-09-04] MEDS: FLUOXETINE 20 MG CAP PO SCH (09:05)
[2016-09-04] MEDS: CHOLECALCIFEROL 1,000 UNIT TAB PO SCH (09:05)
[2016-09-04] MEDS: ALLOPURINOL 100 MG TAB PO SCH (09:05)
[2016-09-04] MEDS: FISH OIL 1,000 MG CAP PO SCH (09:05)
[2016-09-04] MEDS: FAMOTIDINE 20 MG TAB PO SCH (09:05)
[2016-09-04] MEDS: PYRIDOXINE 50 MG TAB PO SCH (09:05)
[2016-09-04] MEDS: LACTOBACILLUS CHEW TAB PO SCH ×3 (09:05→21:12)
[2016-09-04] MEDS: ACETYLCYSTEINE 600 MG CAP PO SCH ×2 (09:05→21:14)
[2016-09-04] MEDS: ASPIRIN (EC) 81 MG TAB PO SCH (09:05)
[2016-09-04] MEDS: FERROUS SULFATE (EC) 325 MG TAB PO SCH ×2 (09:05→21:14)
[2016-09-04] MEDS: METOPROLOL 25 MG TAB PO SCH ×2 (09:05→21:17)
[2016-09-04] MEDS: VITAMIN E 400 UNITS CAP PO SCH (09:05)
[2016-09-04] MEDS: ASCORBIC ACID 500 MG TAB PO SCH (09:06)
[2016-09-04] MEDS: PREGABALIN 25 MG CAP PO SCH ×3 (09:24→21:14)
[2016-09-04 10:35] LABS: AADO2 Arterial 99.6 mmHg (7.0-24.0); Allen Test ACCEPTAB; Arterial Base Excess -4.3 mmol/L (-3.0-3); Arterial COHb 0.8 % (0.0-3.0); Arterial Fraction of Oxyhgb 89.4 % (93.0-99.0); Arterial HCO3 23.9 mmol/L (22.0-26.0); Arterial MetHb 0 % (0.0-1.5); Arterial Total Hemglobin 10.6 g/dl (12.0-18.0); MODE NASAL CANNULA
[2016-09-04] MEDS: BUMETANIDE 25 MG in DEXTROSE 5% 150 ML IV SCH (10:38)
--- NOTE | 2016-09-04 11:02 | PN ---
Date/Time of Note Date/Time of Note DATE: 09/04/16 TIME: 10:59 Assessment/Plan VTE Prophylaxis VTE Prophylaxis Intervention: heparin Lines/Catheters IV C[facility]ter Type [facility]from [facility] Peripheral IV Urinary Cath still in place: No Assessment/Plan Chief Complaint/Hosp Course Assessment and plan 1. Left great toe osteomyelitis. Continue antibiotics as per infectious disease. Status post evaluation by vascular surgery. Continue vascular surgeon recommendations 2. Acute on chronic respiratory failure, hypoxic and hypercapnic. Still with more noted shortness of breath. . Continue BiPAP at night and as needed.. Continue inhaled bronchodilators. Newspaper Writer consulted. Noted with more fluid on right lower lung base. Continue on Bumex per rn charge. May need thoracentesis pending clinical course. 3. Pulmonary hypertension. Continue supplemental oxygen. 4. Acute on chronic kidney disease. Medications to be renally dosed. Principal Archaeologist following. Diuretics per nephrology 5. Congestive heart failure exacerbation. Acute on chronic diastolic dysfunction. Continue diuretics as per nephrology. May need HD for further fluid withdrawal per nephrology. 6. Type 2 diabetes mellitus. Hemoglobin A1c 5.8. Continue carbohydrate controlled diet. Continue sliding scale insulin. 7. Essential hypertension. Continue antihypertensives. Adjust as needed 8. History of atrial fibrillation. Currently in sinus rhythm. Continue telemetry monitoring 9. Dyslipidemia. Continue statins. 10. Gout. Continue allopurinol. 11. Major depression. Continue selective serotonin reuptake inhibitors. 12. Morbid obesity with BMI of 42.5 kg/meter squared. Weight reduction advised. 13. Fluid, electrolytes, and nutrition. Renal, carbohydrate controlled diet. 14. Deep vein thrombosis prophylaxis. Subcutaneous heparin. 15. Gastrointestinal prophylaxis. Histamine 2 blockers. Disposition and plan: Will follow up on ABG. Tentative plan for CT scan of the chest. Continue on Bumex per nephrology. May need thoracentesis pending clinical course. We'll monitor for clinical improvement of respiratory status Discussed plan of care with Problems: Subjective 24 Hr Interval Summary Free Text/Dictation Seen on BiPAP. Still reports some shortness of breath. Not much changed. Exam/Review of Systems Vital Signs Vitals Vital Signs Date Time Temp Pulse Resp B/P Pulse Ox O2 Delivery O2 Flow Rate FiO2 09/04/16 09:39 86 20 92 Nasal Cannula 6.0 09/04/16 06:56 97.9 132/70 09/04/16 05:20 40 Intake and Output 09/03/16 09/03/16 09/04/16 15:00 23:00 07:00 Intake Total 850 ml 240 ml Output Total 800 ml 1200 ml Balance 50 ml -960 ml Exam General: Morbidly obese. Sinemet that. Still with some reported shortness of breath Eyes: pupils equal round, Anicteric sclera Neck: Supple nontender, no JVD Cardiac: S1, S2 auscultated, regular rhythm and rate Pulmonary: Diminished at lung bases more notable on right lower lung base GI: Abdomen soft nontender nondistended, bowel sounds active Extremities: Edema bilateral lower extremities +2 to +3 Skin: Brownish discoloration of bilateral lower extremities Neurologic: Alert to person place and time and situation Results Result Diagram: 09/03/16 0610 09/03/16 0610 Results 24 hrs Laboratory Tests Test 09/03/16 11:59 09/03/16 17:04 09/03/16 22:13 09/04/16 09:02 Bedside Glucose 171 150 154 126 Test 09/04/16 10:00 Arterial Blood HCO3 23.9 Arterial Blood Base Excess -4.3 L Arterial Blood Oxygen Saturation 90.1 L Khoi Test ACCEPTAB Arterial Blood Gas Puncture Site Left Radial Arterial Blood Carboxyhemoglobin 0.8 Arterial Blood Date Drawn 09/04/2016 10:20:31 AM Arterial Blood Methemoglobin 0 Arterial Blood pCO2 (Temp correct) 60.0 H Arterial Blood pH (Temp corrected) 7.218 *L Arterial Blood pO2 (Temp corrected) 65.6 L Blood Gas A-a O2 Differential 99.6 H Blood Gas Critical Value Read Back L DANNI LAW Blood Gas Modality NASAL CANNULA Blood Gas Notified Time 09/04/2016 10:35:38 AM Blood Gas Notified Whom JLD Blood Gas Specimen Source Blood arterial Blood Gas Temperature 37.0 FiO2 33.0 Oxyhemoglobin Percent 89.4 L Total Hemoglobin 10.6 L Medications Medications Current Medications Acetaminophen (Tylenol Tab) 650 mg Q6H PRN PO PAIN LEVEL 1-3 OR FEVER; Start 08/13/16 at 17:30 Acetaminophen/ Hydrocodone Bitart ([place] (5/325)) 1 tab Q6H PRN PO MODERATE PAIN LEVEL 4-6 Last administered on 08/30/16at 02:54; Admin Dose 1 TAB; Start 08/13/16 at 17:30 Morphine Sulfate (morphine) 2 mg Q4H PRN IV SEVERE PAIN LEVEL 7-10 Last administered on 09/03/16 12:28; Admin Dose 2 MG; Start 08/13/16 at 17:30 Docusate Sodium (Colace) 100 mg Q12H PRN PO CONSTIPATION; Start 08/13/16 at 17 :30 Heparin Sodium (Porcine) (Heparin (5000 Units/0.5 ml)) 5,000 unit Q12 SC Last administered on 08/25/16 21:01; Admin Dose 5,000 UNIT; Start 08/13/16 at 21: 00; Status Future Hold Allopurinol (Zyloprim) 100 mg DAILY PO Last administered on 09/04/16 09:05; Admin Dose 100 MG; Start 08/14/16 at 09:00 Ascorbic Acid (Vitamin C) 500 mg DAILY PO Last administered on 09/04/16 09:06 ; Admin Dose 500 MG; Start 08/13/16 at 18:00 Aspirin (Halfprin) 81 mg DAILY PO Last administered on 09/04/16 09:05; Admin Dose 81 MG; Start 08/14/16 at 09:00 Atorvastatin Calcium (Lipitor) 10 mg QHS PO Last administered on 09/03/16 22: 04; Admin Dose 10 MG; Start 08/13/16 at 21:00 Cholecalciferol (Vitamin D) 1,000 unit DAILY PO Last administered on 09:05; Admin Dose 1,000 UNIT; Start 08/14/16 at 09:00 Ferrous Sulfate (Ferrous Sulfate (Ec)) 325 mg BID PO Last administered on 09/04 09:05; Admin Dose 325 MG; Start 08/13/16 at 21:00 Fish Oil (Fish Oil) 1,000 mg DAILY PO Last administered on 09/04/16 09:05; Admin Dose 1,000 MG; Start 08/14/16 at 09:00 Lactobacillus Acidoph/Bulgaricus (Floranex) 1 tab TID PO Last administered on 09/04/16 09:05; Admin Dose 1 TAB; Start 08/13/16 at 21:00 Metoprolol Tartrate (Lopressor) 12.5 mg BID PO Last administered on 09/04/16 09:05; Admin Dose 12.5 MG; Start 08/13/16 at 21:00 Pregabalin (Lyrica) 50 mg TID PO Last administered on 09/04/16at 09:24; Admin Dose 50 MG; Start 08/13/16 at 21:00 Pyridoxine HCl (Vitamin B6) 100 mg DAILY PO Last administered on 09/04/16at 09: 05; Admin Dose 100 MG; Start 08/14/16 at 09:00 Simethicone (Mylicon) 80 mg Q6H PRN PO INTESTINAL SPASMS/CRAMPING Last administered on 09/02/16at 17:10; Admin Dose 80 MG; Start 08/13/16 at 17:30 Vitamin E (Vitamin E) 400 units DAILY PO Last administered on 09/04/16 09:05 ; Admin Dose 400 UNITS; Start 08/14/16 at 09:00 Fluoxetine HCl (Prozac) 20 mg DAILY PO Last administered on 09/04/16 09:05; Admin Dose 20 MG; Start 08/14/16 at 09:00 Miscellaneous Information 1 ea NOTE XX ; Start 08/13/16 at 18:00 Glucose (Glutose) 15 gm Q15M PRN PO DECREASED GLUCOSE; Start 08/13/16 at 18:00 Glucose (Glutose) 22.5 gm Q15M PRN PO DECREASED GLUCOSE; Start 08/13/16 at 18: 00 Dextrose (D50w Syringe) 25 ml Q15M PRN IV DECREASED GLUCOSE; Start 08/13/16 at 18:00 Dextrose (D50w Syringe) 50 ml Q15M PRN IV DECREASED GLUCOSE; Start 08/13/16 at 18:00 Glucagon (Glucagen) 1 mg Q15M PRN IM DECREASED GLUCOSE; Start 08/13/16 at 18: 00 Glucose (Glutose) 15 gm Q15M PRN BUCCAL DECREASED GLUCOSE; Start 08/13/16 at 18:00 Sodium Hypochlorite (Dakin'S (1/4 Strength)) 1 applic DAILY IRR Last administered on 09/04/16at 09:04; Admin Dose 1 APPLIC; Start 08/13/16 at 20:00 Acetaminophen/ Hydrocodone Bitart ([place] (5/325)) 2 tab Q6H PRN PO MODERATE PAIN LEVEL 4-6 Last administered on 09/03/16at 16:22; Admin Dose 2 TAB; Start 08/14/16 at 13:00 IV Flush (NS 10 ml) 10 ml PRN PRN IV IV PTOTOCOL; Start 08/14/16 at 17:00 Acetylcysteine (Nac) 600 mg BID PO Last administered on 09/04/16at 09:05; Admin Dose 600 MG; Start 08/16/16 at 21:00 Ondansetron HCl (Zofran Inj) 4 mg Q4H PRN IV NAUSEA AND/OR VOMITING; Start 08/16/16 at 12:30 Zolpidem Tartrate (Ambien) 10 mg HS PRN PO INSOMNIA Last administered on 23:14; Admin Dose 10 MG; Start 08/16/16 at 21:00 Lorazepam (Ativan) 1 mg Q6 PRN PO ANXIETY Last administered on 08/25/16at 22:08 ; Admin Dose 1 MG; Start 08/18/16 at 14:30 Insulin Glargine (Lantus) 15 unit QHS SC Last administered on 09/03/16at 22:14 ; Admin Dose 15 UNIT; Start 08/19/16 at 21:00 Diagnostic Test (Pha) (Accucheck) 1 ea 02 XX Last administered on 08/30/16at 02 :47; Admin Dose 1 EA; Start 08/20/16 at 02:00 Phenol (Cepastat Lozenge) 1 lozenge Q1H PRN MT DRY MOUTH Last administered on 08/20/16at 21:28; Admin Dose 1 LOZENGE; Start 08/20/16 at 20:30 Lorazepam (Ativan) 1 mg HS PRN PO ANXIETY, HELP WITH SLEEP Last administered on 09/03/16at 23:57; Admin Dose 1 MG; Start 08/22/16 at 18:30 Diphenhydramine HCl (Benadryl) 25 mg Q6H PRN PO ITCHING Last administered on 16:17; Admin Dose 25 MG; Start 08/26/16 at 20:30 Famotidine (Pepcid) 20 mg DAILY PO Last administered on 09/04/16at 09:05; Admin Dose 20 MG; Start 09/03/16 at 09:00 Levofloxacin 250 mg 250 mg DAILY@06 PO Last administered on 09/04/16at 06:22; Admin Dose 250 MG; Start 09/03/16 at 06:00 Daptomycin 785 mg/ Sodium Chloride 100 ml @ 200 mls/hr Q24H IVPB Last administered on 09/03/16at 16:21; Admin Dose 200 MLS/HR; Start 09/02/16 at 16: 00; Stop 09/25/17 at 15:59 Bumetanide/ Dextrose (Bumex/D5W) 250 ml @ 10 mls/hr Q24H IV Last administered on 09/04/16at 10:38; Admin Dose 10 MLS/HR; Start 09/04/16 at 07:30 GIUSEPPE BREAUX Sep 04, 2016 11:02
[2016-09-04 11:04] LABS: EOSINOPHILS # 0.5 10^3/ul (0.0-0.5); EOSINOPHILS % 6.7 % (0.0-7.0); HEMATOCRIT 29.5 % (42.0-52.0); HEMOGLOBIN 9.5 g/dl (14.0-18.0); LYMPHOCYTES # 0.8 10^3/ul (0.8-2.9); LYMPHOCYTES % 9.6 % (15.0-51.0); MEAN CORPUSCULAR HEMOGLOBIN 25.2 pg (29.0-33.0); MEAN CORPUSCULAR HGB CONC 32.1 g/dl (32.0-37.0); MEAN CORPUSCULAR VOLUME 78.6 fl (82.0-101.0); MEAN PLATELET VOLUME 8.1 fl (7.4-10.4); MONOCYTE # 0.6 10^3/ul (0.3-0.9); NEUTROPHIL # 6.1 10^3/ul (1.6-7.5); NEUTROPHILS % 75.7 % (39.0-77.0); PLATELET COUNT 214 10^3/UL (140-440); RED BLOOD COUNT 3.75 10^6/ul (4.70-6.10); RED CELL DISTRIBUTION WIDTH 22.6 % (11.5-14.5); UNCORRECTED WBC 8.1 10^3/ul (4.8-10.8); WHITE BLOOD COUNT 8.1 10^3/ul (4.8-10.8)
[2016-09-04 11:09] LABS: CONDITION 1; LH ANALYZER COMMENTS 1
[2016-09-04 11:15] LABS: POTASSIUM 4.8 mmol/L (3.5-5.1)
[2016-09-04 11:18] LABS: CREATININE 2.01 mg/dl (0.61-1.24)
--- NOTE | 2016-09-04 13:13 | RADRPT ---
PROCEDURE: CT Chest without contrast. CLINICAL INDICATION: Shortness of breath. Right lower lobe pneumonia. TECHNIQUE: Helical axial sections were obtained through the chest without intravenous contrast enh ancement. Coronal and sagittal reformatted images were obtained from the axial source images. Total exam DLP is 658.09 mGy-cm. CTDIvol is 16.75 mGy. COMPARISON: Chest x-ray dated 09/03/2016. FINDINGS: There is a right arm PICC line with the tip in the lower superior vena cava. There is a moderate-si zed right pleural effusion and consolidation throughout the right lower lobe consistent with pneumon ia. Mild patchy consolidation is present in the right upper lobe and right middle lobe as well as t hroughout the left mid and lower lung zones. There is mild left basilar atelectasis and a small lef t pleural effusion. There is no pulmonary nodule or mass lesion. There is no mediastinal or hilar lymphadenopathy or mass. There is no axillary, supraclavicular, or internal mammary lymphadenopathy. The thoracic aorta is not dilated. There is calcification in the aorta consistent with atherosclero sis. There is enlargement of the central pulmonary arteries consistent with pulmonary artery hypert ension. The heart is mildly enlarged. There is extensive coronary artery calcification. There is no pericardial effusion. Images through the upper abdomen demonstrate normal visualized portions of the liver, spleen, and ad renals. There are degenerative changes of the spine. There is no fracture or lytic lesion. IMPRESSION: 1. Right arm PICC line. 2. Right lower lobe pneumonia. 3. Mild patchy consolidation throughout the right upper lobe and right middle lobe. Mild patchy con solidation in the left mid and lower lung zones. 4. Moderate right pleural effusion and small left pleural effusion. 5. Atherosclerotic calcification in the aorta. 6. Pulmonary artery hypertension. 7. Mild cardiomegaly. Extensive coronary artery calcification. 8. Degenerative changes of the spine. RPTAT: QQ .Aldo Ramirez MD, Date Time Electronically viewed and signed by .Aldo Ramirez MD, on 09/04/2016 13:13 .R/
--- NOTE | 2016-09-04 14:27 | CONS ---
Date/Time of Note Date/Time of Note DATE: 09/04/16 TIME: 14:24 Consult Date/Type/Reason Admit Date/Time Aug 13, 2016 at 16:30 Initial Consult Date 08/13/16 Type of Consultation: ID Ordering Provider: KELLEN MEDINA MD Subjective on Bipap, sitting up in a chair, nad, afebrile Objective Vital Signs Date Time Temp Pulse Resp B/P Pulse Ox O2 Delivery O2 Flow Rate FiO2 09/04/16 13:49 77 98 40 09/04/16 11:21 97.8 16 121/65 09/04/16 09:39 Nasal Cannula 6.0 Intake and Output 09/03/16 09/03/16 09/04/16 15:00 23:00 07:00 Intake Total 850 ml 240 ml Output Total 800 ml 1200 ml Balance 50 ml -960 ml Results/Medications Result Diagram: 09/04/16 1040 09/04/16 1046 Results 24 hrs Laboratory Tests Test 09/03/16 17:04 09/03/16 22:13 09/04/16 09:02 09/04/16 10:00 Bedside Glucose 150 154 126 Arterial Blood HCO3 23.9 Arterial Blood Base Excess -4.3 L Arterial Blood Oxygen Saturation 90.1 L Khoi Test ACCEPTAB Arterial Blood Gas Puncture Site Left Radial Arterial Blood Carboxyhemoglobin 0.8 Arterial Blood Date Drawn 09/04/2016 10:20:31 AM Arterial Blood Methemoglobin 0 Arterial Blood pCO2 (Temp correct) 60.0 H Arterial Blood pH (Temp corrected) 7.218 *L Arterial Blood pO2 (Temp corrected) 65.6 L Blood Gas A-a O2 Differential 99.6 H Blood Gas Critical Value Read Back L DANNI RN Blood Gas Modality NASAL CANNULA Blood Gas Notified Time 09/04/2016 10:35:38 AM Blood Gas Notified Whom JLD Blood Gas Specimen Source Blood arterial Blood Gas Temperature 37.0 FiO2 33.0 Oxyhemoglobin Percent 89.4 L Total Hemoglobin 10.6 L Test 09/04/16 10:40 09/04/16 10:46 09/04/16 11:35 Basophils # 0.0 Basophils % 0.0 Blood Morphology Comment Eosinophils # 0.5 Eosinophils % 6.7 Hematocrit 29.5 L Hemoglobin 9.5 L Lymphocytes # 0.8 Lymphocytes % 9.6 L Mean Corpuscular Hemoglobin 25.2 L Mean Corpuscular Hemoglobin Concent 32.1 Mean Corpuscular Volume 78.6 L Mean Platelet Volume 8.1 Monocytes # 0.6 Monocytes % 8.0 Neutrophils # 6.1 Neutrophils % 75.7 Nucleated Red Blood Cells # 0.0 Nucleated Red Blood Cells % 0.0 Platelet Count 214 Red Blood Count 3.75 L Red Cell Distribution Width 22.6 H White Blood Count 8.1 Anion Gap 15 Blood Urea Nitrogen 90 H Calcium Level 8.0 L Carbon Dioxide Level 27 Chloride Level 94 L Creatinine 2.01 H Glucose Level 155 Potassium Level 4.8 Sodium Level 131 L Bedside Glucose 162 Medications Current Medications Acetaminophen (Tylenol Tab) 650 mg Q6H PRN PO PAIN LEVEL 1-3 OR FEVER; Start 08/13/16 at 17:30 Acetaminophen/ Hydrocodone Bitart (Gratz (5/325)) 1 tab Q6H PRN PO MODERATE PAIN LEVEL 4-6 Last administered on 08/30/16at 02:54; Admin Dose 1 TAB; Start 08/13/16 at 17:30 Morphine Sulfate (morphine) 2 mg Q4H PRN IV SEVERE PAIN LEVEL 7-10 Last administered on 09/03/16at 12:28; Admin Dose 2 MG; Start 08/13/16 at 17:30 Docusate Sodium (Colace) 100 mg Q12H PRN PO CONSTIPATION; Start 08/13/16 at 17 :30 Heparin Sodium (Porcine) (Heparin (5000 Units/0.5 ml)) 5,000 unit Q12 SC Last administered on 08/25/16at 21:01; Admin Dose 5,000 UNIT; Start 08/13/16 at 21: 00; Status Future Hold Allopurinol (Zyloprim) 100 mg DAILY PO Last administered on 09/04/16at 09:05; Admin Dose 100 MG; Start 08/14/16 at 09:00 Ascorbic Acid (Vitamin C) 500 mg DAILY PO Last administered on 09/04/16 09:06 ; Admin Dose 500 MG; Start 08/13/16 at 18:00 Aspirin (Halfprin) 81 mg DAILY PO Last administered on 09/04/16 09:05; Admin Dose 81 MG; Start 08/14/16 at 09:00 Atorvastatin Calcium (Lipitor) 10 mg QHS PO Last administered on 09/03/16at 22: 04; Admin Dose 10 MG; Start 08/13/16 at 21:00 Cholecalciferol (Vitamin D) 1,000 unit DAILY PO Last administered on 09:05; Admin Dose 1,000 UNIT; Start 08/14/16 at 09:00 Ferrous Sulfate (Ferrous Sulfate (Ec)) 325 mg BID PO Last administered on 09/04 09:05; Admin Dose 325 MG; Start 08/13/16 at 21:00 Fish Oil (Fish Oil) 1,000 mg DAILY PO Last administered on 09/04/16 09:05; Admin Dose 1,000 MG; Start 08/14/16 at 09:00 Lactobacillus Acidoph/Bulgaricus (Floranex) 1 tab TID PO Last administered on 09/04/16 11:44; Admin Dose 1 TAB; Start 08/13/16 at 21:00 Metoprolol Tartrate (Lopressor) 12.5 mg BID PO Last administered on 09/04/16 09:05; Admin Dose 12.5 MG; Start 08/13/16 at 21:00 Pregabalin (Lyrica) 50 mg TID PO Last administered on 09/04/16 11:44; Admin Dose 50 MG; Start 08/13/16 at 21:00 Pyridoxine HCl (Vitamin B6) 100 mg DAILY PO Last administered on 09/04/16 09: 05; Admin Dose 100 MG; Start 08/14/16 at 09:00 Simethicone (Mylicon) 80 mg Q6H PRN PO INTESTINAL SPASMS/CRAMPING Last administered on 09/02/16at 17:10; Admin Dose 80 MG; Start 08/13/16 at 17:30 Vitamin E (Vitamin E) 400 units DAILY PO Last administered on 09/04/16 09:05 ; Admin Dose 400 UNITS; Start 08/14/16 at 09:00 Fluoxetine HCl (Prozac) 20 mg DAILY PO Last administered on 09/04/16 09:05; Admin Dose 20 MG; Start 08/14/16 at 09:00 Miscellaneous Information 1 ea NOTE XX ; Start 08/13/16 at 18:00 Glucose (Glutose) 15 gm Q15M PRN PO DECREASED GLUCOSE; Start 08/13/16 at 18:00 Glucose (Glutose) 22.5 gm Q15M PRN PO DECREASED GLUCOSE; Start 08/13/16 at 18: 00 Dextrose (D50w Syringe) 25 ml Q15M PRN IV DECREASED GLUCOSE; Start 08/13/16 at 18:00 Dextrose (D50w Syringe) 50 ml Q15M PRN IV DECREASED GLUCOSE; Start 08/13/16 at 18:00 Glucagon (Glucagen) 1 mg Q15M PRN IM DECREASED GLUCOSE; Start 08/13/16 at 18: 00 Glucose (Glutose) 15 gm Q15M PRN BUCCAL DECREASED GLUCOSE; Start 08/13/16 at 18:00 Sodium Hypochlorite (Dakin'S (1/4 Strength)) 1 applic DAILY IRR Last administered on 09/04/16at 09:04; Admin Dose 1 APPLIC; Start 08/13/16 at 20:00 Acetaminophen/ Hydrocodone Bitart (Gratz (5/325)) 2 tab Q6H PRN PO MODERATE PAIN LEVEL 4-6 Last administered on 09/03/16at 16:22; Admin Dose 2 TAB; Start 08/14/16 at 13:00 IV Flush (NS 10 ml) 10 ml PRN PRN IV IV PTOTOCOL; Start 08/14/16 at 17:00 Acetylcysteine (Nac) 600 mg BID PO Last administered on 09/04/16at 09:05; Admin Dose 600 MG; Start 08/16/16 at 21:00 Ondansetron HCl (Zofran Inj) 4 mg Q4H PRN IV NAUSEA AND/OR VOMITING; Start 08/16/16 at 12:30 Zolpidem Tartrate (Ambien) 10 mg HS PRN PO INSOMNIA Last administered on at 23:14; Admin Dose 10 MG; Start 08/16/16 at 21:00 Lorazepam (Ativan) 1 mg Q6 PRN PO ANXIETY Last administered on 08/25/16at 22:08 ; Admin Dose 1 MG; Start 08/18/16 at 14:30 Insulin Glargine (Lantus) 15 unit QHS SC Last administered on 09/03/16at 22:14 ; Admin Dose 15 UNIT; Start 08/19/16 at 21:00 Diagnostic Test (Pha) (Accucheck) 1 ea 02 XX Last administered on 08/30/16at 02 :47; Admin Dose 1 EA; Start 08/20/16 at 02:00 Phenol (Cepastat Lozenge) 1 lozenge Q1H PRN MT DRY MOUTH Last administered on 08/20/16at 21:28; Admin Dose 1 LOZENGE; Start 08/20/16 at 20:30 Lorazepam (Ativan) 1 mg HS PRN PO ANXIETY, HELP WITH SLEEP Last administered on 09/03/16at 23:57; Admin Dose 1 MG; Start 08/22/16 at 18:30 Diphenhydramine HCl (Benadryl) 25 mg Q6H PRN PO ITCHING Last administered on at 16:17; Admin Dose 25 MG; Start 08/26/16 at 20:30 Famotidine (Pepcid) 20 mg DAILY PO Last administered on 09/04/16at 09:05; Admin Dose 20 MG; Start 09/03/16 at 09:00 Levofloxacin 250 mg 250 mg DAILY@06 PO Last administered on 09/04/16at 06:22; Admin Dose 250 MG; Start 09/03/16 at 06:00 Daptomycin 785 mg/ Sodium Chloride 100 ml @ 200 mls/hr Q24H IVPB Last administered on 09/03/16at 16:21; Admin Dose 200 MLS/HR; Start 09/02/16 at 16: 00; Stop 09/25/17 at 15:59 Bumetanide/ Dextrose (Bumex/D5W) 250 ml @ 10 mls/hr Q24H IV Last administered on 09/04/16at 10:38; Admin Dose 10 MLS/HR; Start 09/04/16 at 07:30 Assessment/Plan Chief Complaint/Hosp Course MICROBIOLOGY: 08/13/16 Bld cx+ [facility]: 08/14/16 MRI revealed cellulitis and osteomyelitis of the left first toe. ANTIMICROBIALS: Daptomycin Levaquin Urinalysis on admission was negative. PHYSICAL EXAMINATION: GENERAL: Obese, well-developed, middle-aged white man who is sitting in a chair. Patient is on Bipap, in no distress. HEENT: Head atraumatic, normocephalic. Sclerae anicteric. Buccal mucosa dry. NECK: Supple, trachea midline. CHEST: Rise symmetrical. Breath sounds clear, diminished to bases. HEART: S1, S2. ABDOMEN: Soft, bowel tones present. EXTREMITIES: Bilateral Patrick wraps. ASSESSMENT: 1. Bilateral lower extremities acute on chronic cellulitis with chronic venous stasis and left toe osteomyelitis. 2. HCAP==> RLL per CT chest. 3. Acute on chronic respiratory failure 4. A/CKD. 5. Morbid obesity. 6. Atrial fibrillation, chronic. 7. PAD 8. S/p septicemia==>KENAN PLAN: Change abx to Merrem and Zyvox, f/u nephrology/card/podiatry rec-s, Bipap per pulmonary DW staff Problems: JAMEY VAZQUEZ NP Sep 04, 2016 14:26
[2016-09-04] MEDS: MEROPENEM 500 MG in SOD CHLORIDE 0.9% 100 ML IVPB SCH ×2 (15:33→21:11)
[2016-09-04 16:05] LABS: AADO2 Arterial 124.1 mmHg (7.0-24.0); Allen Test ACCEPTAB; Arterial Base Excess -1.2 mmol/L (-3.0-3); Arterial COHb 0.1 % (0.0-3.0); Arterial Fraction of Oxyhgb 96.4 % (93.0-99.0); Arterial HCO3 25.5 mmol/L (22.0-26.0); Arterial MetHb 0.4 % (0.0-1.5); Arterial Total Hemglobin 10.5 g/dl (12.0-18.0); Blood Gas IEPAP 18/8; Blood Gas PS 10; MODE MASK - BIPAP
[2016-09-04] MEDS: HYDROCODONE/APAP (5/325) TAB PO PRN ×2 (16:09→22:40)
--- NOTE | 2016-09-04 16:53 | CONS ---
Date/Time of Note Date/Time of Note DATE: 09/04/16 TIME: 16:47 Consult Date/Type/Reason Admit Date/Time Aug 13, 2016 at 16:30 Initial Consult Date 08/13/16 Type of Consultation: pulmonary Ordering Provider: KELLEN MEDINA MD Subjective Patient still short of breath No continues intermittent BiPAP Remains hemodynamically stable Objective Vital Signs Date Time Temp Pulse Resp B/P Pulse Ox O2 Delivery O2 Flow Rate FiO2 09/04/16 16:10 87 18 94 Nasal Cannula 6.0 09/04/16 15:17 97.9 138/59 09/04/16 15:00 40 Intake and Output 09/03/16 09/03/16 09/04/16 15:00 23:00 07:00 Intake Total 850 ml 240 ml Output Total 800 ml 1200 ml Balance 50 ml -960 ml PHYSICAL EXAMINATION: GENERAL: Elderly gentleman, comfortable at rest, no acute distress. VITAL SIGNS: As above NECK: Supple. No JVD or lymphadenopathy. CARDIAC: S1, S2. No added sounds or murmurs. CHEST: Diminished air entry.. ABDOMEN: Soft, nontender, obese. EXTREMITIES: No cyanosis, clubbing, edema. NEUROLOGIC: Generalized weakness. He will Results/Medications Result Diagram: 09/04/16 1040 09/04/[address] chest IMPRESSION: 1. Right arm PICC line. 2. Right lower lobe pneumonia. 3. Mild patchy consolidation throughout the right upper lobe and right middle lobe. Mild patchy consolidation in the left mid and lower lung zones. 4. Moderate right pleural effusion and small left pleural effusion. 5. Atherosclerotic calcification in the aorta. 6. Pulmonary artery hypertension. 7. Mild cardiomegaly. Extensive coronary artery calcification. 8. Degenerative changes of the spine. Laboratory Tests Test 09/03/16 17:04 09/03/16 22:13 09/04/16 09:02 09/04/16 10:00 Bedside Glucose 150 154 126 Arterial Blood HCO3 23.9 Arterial Blood Base Excess -4.3 L Arterial Blood Oxygen Saturation 90.1 L Khoi Test ACCEPTAB Arterial Blood Gas Puncture Site Left Radial Arterial Blood Carboxyhemoglobin 0.8 Arterial Blood Date Drawn 09/04/2016 10:20:31 AM Arterial Blood Methemoglobin 0 Arterial Blood pCO2 (Temp correct) 60.0 H Arterial Blood pH (Temp corrected) 7.218 *L Arterial Blood pO2 (Temp corrected) 65.6 L Blood Gas A-a O2 Differential 99.6 H Blood Gas Critical Value Read Back L CORINARachael RN Blood Gas Modality NASAL CANNULA Blood Gas Notified Time 09/04/2016 10:35:38 AM Blood Gas Notified Whom JLD Blood Gas Specimen Source Blood arterial Blood Gas Temperature 37.0 FiO2 33.0 Oxyhemoglobin Percent 89.4 L Total Hemoglobin 10.6 L Test 09/04/16 10:40 09/04/16 10:46 09/04/16 11:35 09/04/16 13:00 Basophils # 0.0 Basophils % 0.0 Blood Morphology Comment Eosinophils # 0.5 Eosinophils % 6.7 Hematocrit 29.5 L Hemoglobin 9.5 L Lymphocytes # 0.8 Lymphocytes % 9.6 L Mean Corpuscular Hemoglobin 25.2 L Mean Corpuscular Hemoglobin Concent 32.1 Mean Corpuscular Volume 78.6 L Mean Platelet Volume 8.1 Monocytes # 0.6 Monocytes % 8.0 Neutrophils # 6.1 Neutrophils % 75.7 Nucleated Red Blood Cells # 0.0 Nucleated Red Blood Cells % 0.0 Platelet Count 214 Red Blood Count 3.75 L Red Cell Distribution Width 22.6 H White Blood Count 8.1 Anion Gap 15 Blood Urea Nitrogen 90 H Calcium Level 8.0 L Carbon Dioxide Level 27 Chloride Level 94 L Creatinine 2.01 H Glucose Level 155 Potassium Level 4.8 Sodium Level 131 L Bedside Glucose 162 Arterial Blood HCO3 25.5 Arterial Blood Base Excess -1.2 Arterial Blood Oxygen Saturation 96.9 Khoi Test ACCEPTAB Arterial Blood Gas Puncture Site Left Radial Arterial Blood Carboxyhemoglobin 0.1 Arterial Blood Date Drawn 09/04/2016 3:56:33 PM Arterial Blood Methemoglobin 0.4 Arterial Blood pCO2 (Temp correct) 52.1 H Arterial Blood pH (Temp corrected) 7.308 L Arterial Blood pO2 (Temp corrected) 101.2 H Blood Gas A-a O2 Differential 124.1 H Blood Gas Actual Respiration Rate 23 Blood Gas IPAP/EPAP Ratio 18/8 Blood Gas Modality MASK - BIPAP Blood Gas Notified Time 09/04/2016 4:03:52 PM Blood Gas Notified Whom AT Blood Gas Pressure Support 10 Blood Gas Respiration Rate 14.0 Blood Gas Specimen Source Blood arterial Blood Gas Temperature 37.0 FiO2 40.0 Oxyhemoglobin Percent 96.4 Total Hemoglobin 10.5 L Medications Current Medications Acetaminophen (Tylenol Tab) 650 mg Q6H PRN PO PAIN LEVEL 1-3 OR FEVER; Start 08/13/16 at 17:30 Acetaminophen/ Hydrocodone Bitart (Comfrey (5/325)) 1 tab Q6H PRN PO MODERATE PAIN LEVEL 4-6 Last administered on 08/30/16at 02:54; Admin Dose 1 TAB; Start 08/13/16 at 17:30 Morphine Sulfate (morphine) 2 mg Q4H PRN IV SEVERE PAIN LEVEL 7-10 Last administered on 09/03/16 12:28; Admin Dose 2 MG; Start 08/13/16 at 17:30 Docusate Sodium (Colace) 100 mg Q12H PRN PO CONSTIPATION; Start 08/13/16 at 17 :30 Heparin Sodium (Porcine) (Heparin (5000 Units/0.5 ml)) 5,000 unit Q12 SC Last administered on 08/25/16 21:01; Admin Dose 5,000 UNIT; Start 08/13/16 at 21: 00; Status Future Hold Allopurinol (Zyloprim) 100 mg DAILY PO Last administered on 09/04/16 09:05; Admin Dose 100 MG; Start 08/14/16 at 09:00 Ascorbic Acid (Vitamin C) 500 mg DAILY PO Last administered on 09/04/16 09:06 ; Admin Dose 500 MG; Start 08/13/16 at 18:00 Aspirin (Halfprin) 81 mg DAILY PO Last administered on 09/04/16 09:05; Admin Dose 81 MG; Start 08/14/16 at 09:00 Atorvastatin Calcium (Lipitor) 10 mg QHS PO Last administered on 09/03/16at 22: 04; Admin Dose 10 MG; Start 08/13/16 at 21:00 Cholecalciferol (Vitamin D) 1,000 unit DAILY PO Last administered on 09:05; Admin Dose 1,000 UNIT; Start 08/14/16 at 09:00 Ferrous Sulfate (Ferrous Sulfate (Ec)) 325 mg BID PO Last administered on 09/04 09:05; Admin Dose 325 MG; Start 08/13/16 at 21:00 Fish Oil (Fish Oil) 1,000 mg DAILY PO Last administered on 09/04/16 09:05; Admin Dose 1,000 MG; Start 08/14/16 at 09:00 Lactobacillus Acidoph/Bulgaricus (Floranex) 1 tab TID PO Last administered on 09/04/16at 11:44; Admin Dose 1 TAB; Start 08/13/16 at 21:00 Metoprolol Tartrate (Lopressor) 12.5 mg BID PO Last administered on 09/04/16at 09:05; Admin Dose 12.5 MG; Start 08/13/16 at 21:00 Pregabalin (Lyrica) 50 mg TID PO Last administered on 09/04/16at 11:44; Admin Dose 50 MG; Start 08/13/16 at 21:00 Pyridoxine HCl (Vitamin B6) 100 mg DAILY PO Last administered on 09/04/16at 09: 05; Admin Dose 100 MG; Start 08/14/16 at 09:00 Simethicone (Mylicon) 80 mg Q6H PRN PO INTESTINAL SPASMS/CRAMPING Last administered on 09/02/16at 17:10; Admin Dose 80 MG; Start 08/13/16 at 17:30 Vitamin E (Vitamin E) 400 units DAILY PO Last administered on 09/04/16at 09:05 ; Admin Dose 400 UNITS; Start 08/14/16 at 09:00 Fluoxetine HCl (Prozac) 20 mg DAILY PO Last administered on 09/04/16at 09:05; Admin Dose 20 MG; Start 08/14/16 at 09:00 Miscellaneous Information 1 ea NOTE XX ; Start 08/13/16 at 18:00 Glucose (Glutose) 15 gm Q15M PRN PO DECREASED GLUCOSE; Start 08/13/16 at 18:00 Glucose (Glutose) 22.5 gm Q15M PRN PO DECREASED GLUCOSE; Start 08/13/16 at 18: 00 Dextrose (D50w Syringe) 25 ml Q15M PRN IV DECREASED GLUCOSE; Start 08/13/16 at 18:00 Dextrose (D50w Syringe) 50 ml Q15M PRN IV DECREASED GLUCOSE; Start 08/13/16 at 18:00 Glucagon (Glucagen) 1 mg Q15M PRN IM DECREASED GLUCOSE; Start 08/13/16 at 18: 00 Glucose (Glutose) 15 gm Q15M PRN BUCCAL DECREASED GLUCOSE; Start 08/13/16 at 18:00 Sodium Hypochlorite (Dakin'S (1/4 Strength)) 1 applic DAILY IRR Last administered on 09/04/16 09:04; Admin Dose 1 APPLIC; Start 08/13/16 at 20:00 Acetaminophen/ Hydrocodone Bitart (Comfrey (5/325)) 2 tab Q6H PRN PO MODERATE PAIN LEVEL 4-6 Last administered on 09/04/16 16:09; Admin Dose 2 TAB; Start 08/14/16 at 13:00 IV Flush (NS 10 ml) 10 ml PRN PRN IV IV PTOTOCOL; Start 08/14/16 at 17:00 Acetylcysteine (Nac) 600 mg BID PO Last administered on 09/04/16 09:05; Admin Dose 600 MG; Start 08/16/16 at 21:00 Ondansetron HCl (Zofran Inj) 4 mg Q4H PRN IV NAUSEA AND/OR VOMITING; Start 08/16/16 at 12:30 Zolpidem Tartrate (Ambien) 10 mg HS PRN PO INSOMNIA Last administered on 23:14; Admin Dose 10 MG; Start 08/16/16 at 21:00 Lorazepam (Ativan) 1 mg Q6 PRN PO ANXIETY Last administered on 08/25/16 22:08 ; Admin Dose 1 MG; Start 08/18/16 at 14:30 Insulin Glargine (Lantus) 15 unit QHS SC Last administered on 09/03/16 22:14 ; Admin Dose 15 UNIT; Start 08/19/16 at 21:00 Diagnostic Test (Pha) (Accucheck) 1 ea 02 XX Last administered on 08/30/16at 02 :47; Admin Dose 1 EA; Start 08/20/16 at 02:00 Phenol (Cepastat Lozenge) 1 lozenge Q1H PRN MT DRY MOUTH Last administered on 08/20/16 21:28; Admin Dose 1 LOZENGE; Start 08/20/16 at 20:30 Lorazepam (Ativan) 1 mg HS PRN PO ANXIETY, HELP WITH SLEEP Last administered on 09/03/16 23:57; Admin Dose 1 MG; Start 08/22/16 at 18:30 Diphenhydramine HCl (Benadryl) 25 mg Q6H PRN PO ITCHING Last administered on 12 /13/16at 16:17; Admin Dose 25 MG; Start 08/26/16 at 20:30 Famotidine 20 mg 20 mg DAILY PO Last administered on 09/04/16at 09:05; Admin Dose 20 MG; Start 09/03/16 at 09:00 Bumetanide/ Dextrose (Bumex/D5W) 250 ml @ 10 mls/hr Q24H IV Last administered on 09/04/16at 10:38; Admin Dose 10 MLS/HR; Start 09/04/16 at 07:30 Linezolid 600 mg 600 mg BID PO ; Start 09/04/16 at 14:30 Meropenem/Sodium Chloride (Merrem/NS) 100 ml @ 200 mls/hr Q12 IVPB Last administered on 09/04/16at 15:33; Admin Dose 200 MLS/HR; Start 09/04/16 at 14: 30 Assessment/Plan Chief Complaint/Hosp Course IMPRESSION: 1. Recurrent right lower lobe infiltrate and/or effusion of unclear etiology, bilateral effusions, right greater than left. 2. Differential does include cryptogenic organizing pneumonia. 3. Possible aspiration component, although this is less likely. 4. Chronic kidney disease. PLAN: The patient will require: 1. CT noted. 2. Continue aspiration precautions. 3. Wound care for lower extremity osteomyelitis. 4. Glycemic control. 5. Monitor fluid balance, consider more aggressive diuretics. 6. Thoracentesis right lung. Pleural fluid studies. Problems: EDNA BUSTILLO MD, [facility] Sep 04, 2016 16:53
[2016-09-04] MEDS: ZYVOX 600 MG TAB PO SCH ×2 (17:23→21:16)
[2016-09-04] MEDS: ATORVASTATIN 10 MG TAB PO SCH (21:14)
[2016-09-04] MEDS: INSULIN GLARGINE [LANtus] 3 ML PEN SC SCH (21:48)
[2016-09-04] MEDS: LORAZEPAM 1 MG TAB PO PRN (22:45)
--- NOTE | 2016-09-04 23:32 | PN ---
Date/Time of Note Date/Time of Note DATE: 09/04/16 TIME: 23:32 Assessment/Plan Lines/Catheters IV Catheter Type (from [facility]): Peripheral IV Higgins in Place (from [facility]): No Assessment/Plan Problems: (1) Non-pressure chronic ulcer of other part of left foot with fat layer exposed Comment: Daily dressing changes must continue. Daily compression of bilateral lower legs must continue. No surgery recommended at this time. Patient must be stabilized as far as his respiratory status is concerned. Patient is scheduled for thoracentesis in the morning. (2) Osteomyelitis of left foot (3) Diabetic foot infection Status: Acute (4) Pulmonary hypertension (5) Fluid overload (6) Venous insufficiency (chronic) (peripheral) Comment: Daily compression bilateral lower extremities must be done. (7) Leg edema, left (8) Leg edema, right (9) Morbid obesity due to excess calories Assessment/Plan Patient will be followed in-house. Subjective 24 Hr Interval Summary Patient was seen at bedside. Patient was on a oxygen rebreather mask and he was sitting in a chair complaining of "I have a hard time breathing these days" . Patient reports that he has retained a lot of fluid and he is scheduled for thoracentesis in the morning. Patient reports that his left foot has not improved significantly. He reports that his compression bandages have not been changed for the past 3 days. He says that he keeps being moved from one floor to another and from one room to another. Exam/Review of Systems Vital Signs Vitals Vital Signs Date Time Temp Pulse Resp B/P Pulse Ox O2 Delivery O2 Flow Rate FiO2 09/05/16 07:00 97.9 73 24 124/85 99 09/05/16 05:05 40 09/05/16 04:00 BIPAP 09/04/16 16:10 6.0 Intake and Output 09/04/16 09/04/16 09/05/16 15:00 23:00 07:00 Intake Total 850 ml 800 ml Output Total 400 ml 700 ml Balance 450 ml 100 ml Exam Free Text/Dictation Patient is morbidly obese in mild discomfort with mask on his face breathing oxygen. Compression bandaging was removed from the left lower extremity. Patient's left hallux continues to be edematous with significant peeling of skin and maceration. There is an open wound on the dorsal lateral aspect with hyper granulation tissue that is raised through the wound. There is no active pus and no bleeding. The area is nontender to palpation. Patient has maceration of the skin of his left foot. Patient has significant edema bilateral lower extremities. Pedal pulses remain weak secondary to the edema present. Labs were reviewed and the white blood count is 7.9. Results Result Diagram: 09/05/16 0639 09/04/16 1046 NORMAN ACOSTA DPM Sep 04, 2016 23:32
[2016-09-05] VITALS (17 sets, daily range): BP systolic 107–151; BP diastolic 59–85; PULSE 70–89; RESP 18–24
[2016-09-05] MEDS: ZOLPIDEM 5 MG TAB PO PRN ×2 (00:14→22:44)
[2016-09-05] MEDS: ALBUTEROL/IPRATROPIUM (NEB) 3 ML AMP HHN SCH ×6 (00:59→20:10)
[2016-09-05] MEDS: ACCUCHECK XX SCH (02:00)
[2016-09-05] MEDS: BUMETANIDE 25 MG in DEXTROSE 5% 150 ML IV SCH (06:11)
[2016-09-05 07:41] LABS: BASOPHILS % 0.4 % (0.0-2.0); EOSINOPHILS # 0.6 10^3/ul (0.0-0.5); EOSINOPHILS % 7.7 % (0.0-7.0); HEMATOCRIT 29.4 % (42.0-52.0); HEMOGLOBIN 9.5 g/dl (14.0-18.0); LYMPHOCYTES # 1.1 10^3/ul (0.8-2.9); LYMPHOCYTES % 13.5 % (15.0-51.0); MEAN CORPUSCULAR HEMOGLOBIN 25.3 pg (29.0-33.0); MEAN CORPUSCULAR HGB CONC 32.4 g/dl (32.0-37.0); MEAN CORPUSCULAR VOLUME 78.2 fl (82.0-101.0); MEAN PLATELET VOLUME 8.3 fl (7.4-10.4); MONOCYTE # 0.7 10^3/ul (0.3-0.9); MONOCYTES % 9.3 % (0.0-11.0); NEUTROPHIL # 5.5 10^3/ul (1.6-7.5); NEUTROPHILS % 69.1 % (39.0-77.0); PLATELET COUNT 212 10^3/UL (140-440); RED BLOOD COUNT 3.76 10^6/ul (4.70-6.10); RED CELL DISTRIBUTION WIDTH 22.1 % (11.5-14.5); UNCORRECTED WBC 7.9 10^3/ul (4.8-10.8); WHITE BLOOD COUNT 7.9 10^3/ul (4.8-10.8)
[2016-09-05 07:43] LABS: CONDITION 1; LH ANALYZER COMMENTS 1
[2016-09-05] MEDS: INSULIN ASPART [NOVOLOG] 3 ML PEN SC SCH ×7 (07:55→21:00)
[2016-09-05 08:07] LABS: INR 1.37; PROTIME 16.9 Sec (12.2-14.2); PT RATIO 1.3
[2016-09-05 08:08] LABS: PARTIAL THROMBOPLASTIN TIME 39.8 Sec (25.0-35.0)
[2016-09-05 08:11] LABS: POTASSIUM 4.4 mmol/L (3.5-5.1)
[2016-09-05 08:14] LABS: CREATININE 2.24 mg/dl (0.61-1.24)
[2016-09-05 08:15] LABS: CALCIUM 8.4 mg/dl (8.4-10.2)
[2016-09-05] MEDS: METOPROLOL 25 MG TAB PO SCH ×2 (09:00→21:03)
[2016-09-05] MEDS: ACETYLCYSTEINE 600 MG CAP PO SCH ×2 (09:46→20:57)
[2016-09-05] MEDS: FLUOXETINE 20 MG CAP PO SCH (09:46)
[2016-09-05] MEDS: CALCIUM CARBONATE 500 MG CHEW TAB PO SCH ×3 (09:46→18:07)
[2016-09-05] MEDS: CHOLECALCIFEROL 1,000 UNIT TAB PO SCH (09:46)
[2016-09-05] MEDS: FERROUS SULFATE (EC) 325 MG TAB PO SCH ×2 (09:47→20:56)
[2016-09-05] MEDS: ZYVOX 600 MG TAB PO SCH ×2 (09:47→21:16)
[2016-09-05] MEDS: FAMOTIDINE 20 MG TAB PO SCH (09:47)
[2016-09-05] MEDS: ASPIRIN (EC) 81 MG TAB PO SCH (09:47)
[2016-09-05] MEDS: ALLOPURINOL 100 MG TAB PO SCH (09:47)
[2016-09-05] MEDS: VITAMIN E 400 UNITS CAP PO SCH (09:47)
[2016-09-05] MEDS: LACTOBACILLUS CHEW TAB PO SCH ×3 (09:48→20:56)
[2016-09-05] MEDS: PYRIDOXINE 50 MG TAB PO SCH (09:48)
[2016-09-05] MEDS: ASCORBIC ACID 500 MG TAB PO SCH (09:48)
[2016-09-05] MEDS: MEROPENEM 500 MG in SOD CHLORIDE 0.9% 100 ML IVPB SCH ×2 (09:49→20:55)
[2016-09-05] MEDS: SODIUM HYPOCHLORITE 0.125% 473 ML BTL IRR SCH (09:49)
[2016-09-05] MEDS: FISH OIL 1,000 MG CAP PO SCH (09:53)
[2016-09-05] MEDS: HYDROCODONE/APAP (5/325) TAB PO PRN ×2 (10:14→18:10)
[2016-09-05] MEDS: PREGABALIN 25 MG CAP PO SCH ×3 (10:14→20:56)
--- NOTE | 2016-09-05 11:18 | CONS ---
Date/Time of Note Date/Time of Note DATE: 09/05/16 TIME: 11:10 Consult Date/Type/Reason Admit Date/Time Aug 13, 2016 at 16:30 Initial Consult Date 08/13/16 Type of Consultation: pulmonary Ordering Provider: KELLEN MEDINA MD Subjective Still shortness of breath Awake alert oriented. Objective Vital Signs Date Time Temp Pulse Resp B/P Pulse Ox O2 Delivery O2 Flow Rate FiO2 09/05/16 08:54 93 6.0 36 09/05/16 08:54 88 20 Nasal Cannula 09/05/16 07:00 97.9 124/85 Intake and Output 09/04/16 09/04/16 09/05/16 15:00 23:00 07:00 Intake Total 850 ml 800 ml Output Total 400 ml 700 ml Balance 450 ml 100 ml PHYSICAL EXAMINATION: GENERAL: Elderly gentleman, comfortable at rest, no acute distress. VITAL SIGNS: As above NECK: Supple. No JVD or lymphadenopathy. CARDIAC: S1, S2. No added sounds or murmurs. CHEST: Diminished air entry.. ABDOMEN: Soft, nontender, obese. EXTREMITIES: No cyanosis, clubbing, edema. NEUROLOGIC: Generalized weakness. Results/Medications Result Diagram: 09/05/16 0639 09/05/16 [address] chest large right effusion. Laboratory Tests Test 09/04/16 11:35 09/04/16 13:00 09/04/16 17:24 09/04/16 21:44 Bedside Glucose 162 161 169 Arterial Blood HCO3 25.5 Arterial Blood Base Excess -1.2 Arterial Blood Oxygen Saturation 96.9 Khoi Test ACCEPTAB Arterial Blood Gas Puncture Site Left Radial Arterial Blood Carboxyhemoglobin 0.1 Arterial Blood Date Drawn 09/04/2016 3:56:33 PM Arterial Blood Methemoglobin 0.4 Arterial Blood pCO2 (Temp correct) 52.1 H Arterial Blood pH (Temp corrected) 7.308 L Arterial Blood pO2 (Temp corrected) 101.2 H Blood Gas A-a O2 Differential 124.1 H Blood Gas Actual Respiration Rate 23 Blood Gas IPAP/EPAP Ratio 18/8 Blood Gas Modality MASK - BIPAP Blood Gas Notified Time 09/04/2016 4:03:52 PM Blood Gas Notified Whom AT Blood Gas Pressure Support 10 Blood Gas Respiration Rate 14.0 Blood Gas Specimen Source Blood arterial Blood Gas Temperature 37.0 FiO2 40.0 Oxyhemoglobin Percent 96.4 Total Hemoglobin 10.5 L Test 09/05/16 06:34 09/05/16 06:39 09/05/16 07:56 Activated Partial Thromboplast Time 39.8 H Anion Gap 17 H Blood Urea Nitrogen 94 H Calcium Level 8.4 Carbon Dioxide Level 25 Chloride Level 96 L Creatinine 2.24 H Glucose Level 91 # INR International Normalized Ratio 1.37 Platelet Count 214 212 Potassium Level 4.4 Prothrombin Time 16.9 H Prothrombin Time Ratio 1.3 Sodium Level 134 L Thrombin Time Pending Basophils # 0.0 Basophils % 0.4 Blood Morphology Comment Eosinophils # 0.6 H Eosinophils % 7.7 H Hematocrit 29.4 L Hemoglobin 9.5 L Lymphocytes # 1.1 Lymphocytes % 13.5 L Mean Corpuscular Hemoglobin 25.3 L Mean Corpuscular Hemoglobin Concent 32.4 Mean Corpuscular Volume 78.2 L Mean Platelet Volume 8.3 Monocytes # 0.7 Monocytes % 9.3 Neutrophils # 5.5 Neutrophils % 69.1 Nucleated Red Blood Cells # 0.0 Nucleated Red Blood Cells % 0.0 Red Blood Count 3.76 L Red Cell Distribution Width 22.1 H White Blood Count 7.9 Bedside Glucose 92 Medications Current Medications Acetaminophen (Tylenol Tab) 650 mg Q6H PRN PO PAIN LEVEL 1-3 OR FEVER; Start 08/13/16 at 17:30 Acetaminophen/ Hydrocodone Bitart ([place] (5/325)) 1 tab Q6H PRN PO MODERATE PAIN LEVEL 4-6 Last administered on 08/30/16at 02:54; Admin Dose 1 TAB; Start 08/13/16 at 17:30 Morphine Sulfate (morphine) 2 mg Q4H PRN IV SEVERE PAIN LEVEL 7-10 Last administered on 09/03/16at 12:28; Admin Dose 2 MG; Start 08/13/16 at 17:30 Docusate Sodium (Colace) 100 mg Q12H PRN PO CONSTIPATION; Start 08/13/16 at 17 :30 Heparin Sodium (Porcine) (Heparin (5000 Units/0.5 ml)) 5,000 unit Q12 SC Last administered on 08/25/16at 21:01; Admin Dose 5,000 UNIT; Start 08/13/16 at 21: 00; Status Future Hold Allopurinol (Zyloprim) 100 mg DAILY PO Last administered on 09/05/16 09:47; Admin Dose 100 MG; Start 08/14/16 at 09:00 Ascorbic Acid (Vitamin C) 500 mg DAILY PO Last administered on 09/05/16 09:48 ; Admin Dose 500 MG; Start 08/13/16 at 18:00 Aspirin (Halfprin) 81 mg DAILY PO Last administered on 09/05/16 09:47; Admin Dose 81 MG; Start 08/14/16 at 09:00 Atorvastatin Calcium (Lipitor) 10 mg QHS PO Last administered on 09/04/16 21: 14; Admin Dose 10 MG; Start 08/13/16 at 21:00 Cholecalciferol (Vitamin D) 1,000 unit DAILY PO Last administered on 09:46; Admin Dose 1,000 UNIT; Start 08/14/16 at 09:00 Ferrous Sulfate (Ferrous Sulfate (Ec)) 325 mg BID PO Last administered on 09/05 09:47; Admin Dose 325 MG; Start 08/13/16 at 21:00 Fish Oil (Fish Oil) 1,000 mg DAILY PO Last administered on 09/05/16 09:53; Admin Dose 1,000 MG; Start 08/14/16 at 09:00 Lactobacillus Acidoph/Bulgaricus (Floranex) 1 tab TID PO Last administered on 09/05/16 09:48; Admin Dose 1 TAB; Start 08/13/16 at 21:00 Metoprolol Tartrate (Lopressor) 12.5 mg BID PO Last administered on 09/04/16 21:17; Admin Dose 12.5 MG; Start 08/13/16 at 21:00 Pregabalin (Lyrica) 50 mg TID PO Last administered on 09/05/16 10:14; Admin Dose 50 MG; Start 08/13/16 at 21:00 Pyridoxine HCl (Vitamin B6) 100 mg DAILY PO Last administered on 09/05/16 09: 48; Admin Dose 100 MG; Start 08/14/16 at 09:00 Simethicone (Mylicon) 80 mg Q6H PRN PO INTESTINAL SPASMS/CRAMPING Last administered on 09/02/16 17:10; Admin Dose 80 MG; Start 08/13/16 at 17:30 Vitamin E (Vitamin E) 400 units DAILY PO Last administered on 09/05/16at 09:47 ; Admin Dose 400 UNITS; Start 08/14/16 at 09:00 Fluoxetine HCl (Prozac) 20 mg DAILY PO Last administered on 09/05/16at 09:46; Admin Dose 20 MG; Start 08/14/16 at 09:00 Miscellaneous Information 1 ea NOTE XX ; Start 08/13/16 at 18:00 Glucose (Glutose) 15 gm Q15M PRN PO DECREASED GLUCOSE; Start 08/13/16 at 18:00 Glucose (Glutose) 22.5 gm Q15M PRN PO DECREASED GLUCOSE; Start 08/13/16 at 18: 00 Dextrose (D50w Syringe) 25 ml Q15M PRN IV DECREASED GLUCOSE; Start 08/13/16 at 18:00 Dextrose (D50w Syringe) 50 ml Q15M PRN IV DECREASED GLUCOSE; Start 08/13/16 at 18:00 Glucagon (Glucagen) 1 mg Q15M PRN IM DECREASED GLUCOSE; Start 08/13/16 at 18: 00 Glucose (Glutose) 15 gm Q15M PRN BUCCAL DECREASED GLUCOSE; Start 08/13/16 at 18:00 Sodium Hypochlorite (Dakin'S (1/4 Strength)) 1 applic DAILY IRR Last administered on 09/05/16at 09:49; Admin Dose 1 APPLIC; Start 08/13/16 at 20:00 Acetaminophen/ Hydrocodone Bitart ([place] (5/325)) 2 tab Q6H PRN PO MODERATE PAIN LEVEL 4-6 Last administered on 09/05/16at 10:14; Admin Dose 2 TAB; Start 08/14/16 at 13:00 IV Flush (NS 10 ml) 10 ml PRN PRN IV IV PTOTOCOL; Start 08/14/16 at 17:00 Acetylcysteine (Nac) 600 mg BID PO Last administered on 09/05/16at 09:46; Admin Dose 600 MG; Start 08/16/16 at 21:00 Ondansetron HCl (Zofran Inj) 4 mg Q4H PRN IV NAUSEA AND/OR VOMITING; Start 08/16/16 at 12:30 Zolpidem Tartrate (Ambien) 10 mg HS PRN PO INSOMNIA Last administered on at 00:14; Admin Dose 10 MG; Start 08/16/16 at 21:00 Lorazepam (Ativan) 1 mg Q6 PRN PO ANXIETY Last administered on 08/25/16 22:08 ; Admin Dose 1 MG; Start 08/18/16 at 14:30 Insulin Glargine (Lantus) 15 unit QHS SC Last administered on 09/04/16 21:48 ; Admin Dose 15 UNIT; Start 08/19/16 at 21:00 Diagnostic Test (Pha) (Accucheck) 1 ea 02 XX Last administered on 08/30/16at 02 :47; Admin Dose 1 EA; Start 08/20/16 at 02:00 Phenol (Cepastat Lozenge) 1 lozenge Q1H PRN MT DRY MOUTH Last administered on 08/20/16 21:28; Admin Dose 1 LOZENGE; Start 08/20/16 at 20:30 Lorazepam (Ativan) 1 mg HS PRN PO ANXIETY, HELP WITH SLEEP Last administered on 09/04/16at 22:45; Admin Dose 1 MG; Start 08/22/16 at 18:30 Diphenhydramine HCl (Benadryl) 25 mg Q6H PRN PO ITCHING Last administered on 16:17; Admin Dose 25 MG; Start 08/26/16 at 20:30 Famotidine 20 mg 20 mg DAILY PO Last administered on 09/05/16at 09:47; Admin Dose 20 MG; Start 09/03/16 at 09:00 Bumetanide/ Dextrose (Bumex/D5W) 250 ml @ 10 mls/hr Q24H IV Last administered on 09/05/16 06:11; Admin Dose 10 MLS/HR; Start 09/04/16 at 07:30 Linezolid 600 mg 600 mg BID PO Last administered on 09/05/16 09:47; Admin Dose 600 MG; Start 09/04/16 at 14:30 Meropenem/Sodium Chloride (Merrem/NS) 100 ml @ 200 mls/hr Q12 IVPB Last administered on 09/05/16 09:49; Admin Dose 200 MLS/HR; Start 09/04/16 at 14: 30 Assessment/Plan Chief Complaint/Hosp Course IMPRESSION: 1. Recurrent right lower lobe infiltrate and/or effusion of unclear etiology, bilateral effusions, right greater than left. 2. Differential does include cryptogenic organizing pneumonia. 3. Possible aspiration component, although this is less likely. 4. Chronic kidney disease. PLAN: The patient will require: 1. CT noted. Thoracentesis. Pleural fluid studies. 2. Continue aspiration precautions. 3. Wound care for lower extremity osteomyelitis. 4. Glycemic control. 5. Monitor fluid balance, consider more aggressive diuretics. Problems: EDNA BUSTILLO MD, [facility] Sep 05, 2016 11:18
--- NOTE | 2016-09-05 12:19 | CONS ---
Date/Time of Note Date/Time of Note DATE: 09/05/16 TIME: 12:18 Consult Date/Type/Reason Admit Date/Time Aug 13, 2016 at 16:30 Initial Consult Date 08/13/16 Type of Consultation: ID Ordering Provider: KELLEN MEDINA MD Subjective no events, up in a chair, looks comfortable, no fevers Objective Vital Signs Date Time Temp Pulse Resp B/P Pulse Ox O2 Delivery O2 Flow Rate FiO2 09/05/16 11:26 97.9 88 22 107/59 86 09/05/16 08:54 6.0 36 09/05/16 08:54 Nasal Cannula Intake and Output 09/04/16 09/04/16 09/05/16 14:59 22:59 06:59 Intake Total 850 ml 800 ml Output Total 400 ml 700 ml Balance 450 ml 100 ml Results/Medications Result Diagram: 09/05/16 0639 09/05/16 0634 Results 24 hrs Laboratory Tests Test 09/04/16 13:00 09/04/16 17:24 09/04/16 21:44 09/05/16 06:34 Arterial Blood HCO3 25.5 Arterial Blood Base Excess -1.2 Arterial Blood Oxygen Saturation 96.9 Khoi Test ACCEPTAB Arterial Blood Gas Puncture Site Left Radial Arterial Blood Carboxyhemoglobin 0.1 Arterial Blood Date Drawn 09/04/2016 3:56:33 PM Arterial Blood Methemoglobin 0.4 Arterial Blood pCO2 (Temp correct) 52.1 H Arterial Blood pH (Temp corrected) 7.308 L Arterial Blood pO2 (Temp corrected) 101.2 H Blood Gas A-a O2 Differential 124.1 H Blood Gas Actual Respiration Rate 23 Blood Gas IPAP/EPAP Ratio 18/8 Blood Gas Modality MASK - BIPAP Blood Gas Notified Time 09/04/2016 4:03:52 PM Blood Gas Notified Whom AT Blood Gas Pressure Support 10 Blood Gas Respiration Rate 14.0 Blood Gas Specimen Source Blood arterial Blood Gas Temperature 37.0 FiO2 40.0 Oxyhemoglobin Percent 96.4 Total Hemoglobin 10.5 L Bedside Glucose 161 169 Activated Partial Thromboplast Time 39.8 H Anion Gap 17 H Blood Urea Nitrogen 94 H Calcium Level 8.4 Carbon Dioxide Level 25 Chloride Level 96 L Creatinine 2.24 H Glucose Level 91 # INR International Normalized Ratio 1.37 Platelet Count 214 Potassium Level 4.4 Prothrombin Time 16.9 H Prothrombin Time Ratio 1.3 Sodium Level 134 L Thrombin Time Pending Test 09/05/16 06:39 09/05/16 07:56 09/05/16 12:06 Basophils # 0.0 Basophils % 0.4 Blood Morphology Comment Eosinophils # 0.6 H Eosinophils % 7.7 H Hematocrit 29.4 L Hemoglobin 9.5 L Lymphocytes # 1.1 Lymphocytes % 13.5 L Mean Corpuscular Hemoglobin 25.3 L Mean Corpuscular Hemoglobin Concent 32.4 Mean Corpuscular Volume 78.2 L Mean Platelet Volume 8.3 Monocytes # 0.7 Monocytes % 9.3 Neutrophils # 5.5 Neutrophils % 69.1 Nucleated Red Blood Cells # 0.0 Nucleated Red Blood Cells % 0.0 Platelet Count 212 Red Blood Count 3.76 L Red Cell Distribution Width 22.1 H White Blood Count 7.9 Bedside Glucose 92 135 Medications Current Medications Acetaminophen (Tylenol Tab) 650 mg Q6H PRN PO PAIN LEVEL 1-3 OR FEVER; Start 08/13/16 at 17:30 Acetaminophen/ Hydrocodone Bitart ([place] (5/325)) 1 tab Q6H PRN PO MODERATE PAIN LEVEL 4-6 Last administered on 08/30/16at 02:54; Admin Dose 1 TAB; Start 08/13/16 at 17:30 Morphine Sulfate (morphine) 2 mg Q4H PRN IV SEVERE PAIN LEVEL 7-10 Last administered on 09/03/16at 12:28; Admin Dose 2 MG; Start 08/13/16 at 17:30 Docusate Sodium (Colace) 100 mg Q12H PRN PO CONSTIPATION; Start 08/13/16 at 17 :30 Heparin Sodium (Porcine) (Heparin (5000 Units/0.5 ml)) 5,000 unit Q12 SC Last administered on 08/25/16at 21:01; Admin Dose 5,000 UNIT; Start 08/13/16 at 21: 00; Status Future Hold Allopurinol (Zyloprim) 100 mg DAILY PO Last administered on 09/05/16at 09:47; Admin Dose 100 MG; Start 08/14/16 at 09:00 Ascorbic Acid (Vitamin C) 500 mg DAILY PO Last administered on 09/05/16at 09:48 ; Admin Dose 500 MG; Start 08/13/16 at 18:00 Aspirin (Halfprin) 81 mg DAILY PO Last administered on 09/05/16 09:47; Admin Dose 81 MG; Start 08/14/16 at 09:00 Atorvastatin Calcium (Lipitor) 10 mg QHS PO Last administered on 09/04/16 21: 14; Admin Dose 10 MG; Start 08/13/16 at 21:00 Cholecalciferol (Vitamin D) 1,000 unit DAILY PO Last administered on 09:46; Admin Dose 1,000 UNIT; Start 08/14/16 at 09:00 Ferrous Sulfate (Ferrous Sulfate (Ec)) 325 mg BID PO Last administered on 09/05 09:47; Admin Dose 325 MG; Start 08/13/16 at 21:00 Fish Oil (Fish Oil) 1,000 mg DAILY PO Last administered on 09/05/16 09:53; Admin Dose 1,000 MG; Start 08/14/16 at 09:00 Lactobacillus Acidoph/Bulgaricus (Floranex) 1 tab TID PO Last administered on 09/05/16 09:48; Admin Dose 1 TAB; Start 08/13/16 at 21:00 Metoprolol Tartrate (Lopressor) 12.5 mg BID PO Last administered on 09/04/16 21:17; Admin Dose 12.5 MG; Start 08/13/16 at 21:00 Pregabalin (Lyrica) 50 mg TID PO Last administered on 09/05/16 10:14; Admin Dose 50 MG; Start 08/13/16 at 21:00 Pyridoxine HCl (Vitamin B6) 100 mg DAILY PO Last administered on 09/05/16 09: 48; Admin Dose 100 MG; Start 08/14/16 at 09:00 Simethicone (Mylicon) 80 mg Q6H PRN PO INTESTINAL SPASMS/CRAMPING Last administered on 09/02/16 17:10; Admin Dose 80 MG; Start 08/13/16 at 17:30 Vitamin E (Vitamin E) 400 units DAILY PO Last administered on 09/05/16 09:47 ; Admin Dose 400 UNITS; Start 08/14/16 at 09:00 Fluoxetine HCl (Prozac) 20 mg DAILY PO Last administered on 09/05/16 09:46; Admin Dose 20 MG; Start 08/14/16 at 09:00 Miscellaneous Information 1 ea NOTE XX ; Start 08/13/16 at 18:00 Glucose (Glutose) 15 gm Q15M PRN PO DECREASED GLUCOSE; Start 08/13/16 at 18:00 Glucose (Glutose) 22.5 gm Q15M PRN PO DECREASED GLUCOSE; Start 08/13/16 at 18: 00 Dextrose (D50w Syringe) 25 ml Q15M PRN IV DECREASED GLUCOSE; Start 08/13/16 at 18:00 Dextrose (D50w Syringe) 50 ml Q15M PRN IV DECREASED GLUCOSE; Start 08/13/16 at 18:00 Glucagon (Glucagen) 1 mg Q15M PRN IM DECREASED GLUCOSE; Start 08/13/16 at 18: 00 Glucose (Glutose) 15 gm Q15M PRN BUCCAL DECREASED GLUCOSE; Start 08/13/16 at 18:00 Sodium Hypochlorite (Dakin'S (1/4 Strength)) 1 applic DAILY IRR Last administered on 09/05/16at 09:49; Admin Dose 1 APPLIC; Start 08/13/16 at 20:00 Acetaminophen/ Hydrocodone Bitart ([place] (5/325)) 2 tab Q6H PRN PO MODERATE PAIN LEVEL 4-6 Last administered on 09/05/16at 10:14; Admin Dose 2 TAB; Start 08/14/16 at 13:00 IV Flush (NS 10 ml) 10 ml PRN PRN IV IV PTOTOCOL; Start 08/14/16 at 17:00 Acetylcysteine (Nac) 600 mg BID PO Last administered on 09/05/16at 09:46; Admin Dose 600 MG; Start 08/16/16 at 21:00 Ondansetron HCl (Zofran Inj) 4 mg Q4H PRN IV NAUSEA AND/OR VOMITING; Start 08/16/16 at 12:30 Zolpidem Tartrate (Ambien) 10 mg HS PRN PO INSOMNIA Last administered on at 00:14; Admin Dose 10 MG; Start 08/16/16 at 21:00 Lorazepam (Ativan) 1 mg Q6 PRN PO ANXIETY Last administered on 08/25/16at 22:08 ; Admin Dose 1 MG; Start 08/18/16 at 14:30 Insulin Glargine (Lantus) 15 unit QHS SC Last administered on 09/04/16at 21:48 ; Admin Dose 15 UNIT; Start 08/19/16 at 21:00 Diagnostic Test (Pha) (Accucheck) 1 ea 02 XX Last administered on 08/30/16at 02 :47; Admin Dose 1 EA; Start 08/20/16 at 02:00 Phenol (Cepastat Lozenge) 1 lozenge Q1H PRN MT DRY MOUTH Last administered on 08/20/16at 21:28; Admin Dose 1 LOZENGE; Start 08/20/16 at 20:30 Lorazepam (Ativan) 1 mg HS PRN PO ANXIETY, HELP WITH SLEEP Last administered on 09/04/16at 22:45; Admin Dose 1 MG; Start 08/22/16 at 18:30 Diphenhydramine HCl (Benadryl) 25 mg Q6H PRN PO ITCHING Last administered on at 16:17; Admin Dose 25 MG; Start 08/26/16 at 20:30 Famotidine 20 mg 20 mg DAILY PO Last administered on 09/05/16at 09:47; Admin Dose 20 MG; Start 09/03/16 at 09:00 Bumetanide/ Dextrose (Bumex/D5W) 250 ml @ 10 mls/hr Q24H IV Last administered on 09/05/16at 06:11; Admin Dose 10 MLS/HR; Start 09/04/16 at 07:30 Linezolid 600 mg 600 mg BID PO Last administered on 09/05/16at 09:47; Admin Dose 600 MG; Start 09/04/16 at 14:30 Meropenem/Sodium Chloride (Merrem/NS) 100 ml @ 200 mls/hr Q12 IVPB Last administered on 09/05/16at 09:49; Admin Dose 200 MLS/HR; Start 09/04/16 at 14: 30 Assessment/Plan Chief Complaint/Hosp Course MICROBIOLOGY: 08/13/16 Bld cx+ [facility]: 08/14/16 MRI revealed cellulitis and osteomyelitis of the left first toe. ANTIMICROBIALS: Zyvox Merrem Urinalysis on admission was negative. PHYSICAL EXAMINATION: GENERAL: Obese, well-developed, middle-aged white man who is sitting in a chair. Patient is on Bipap, in no distress. HEENT: Head atraumatic, normocephalic. Sclerae anicteric. Buccal mucosa dry. NECK: Supple, trachea midline. CHEST: Rise symmetrical. Breath sounds clear, diminished to bases. HEART: S1, S2. ABDOMEN: Soft, bowel tones present. EXTREMITIES: Bilateral Patrick wraps. ASSESSMENT: 1. Bilateral lower extremities acute on chronic cellulitis with chronic venous stasis and left toe osteomyelitis. 2. HCAP==> RLL per CT chest. 3. Acute on chronic respiratory failure 4. A/CKD. 5. Morbid obesity. 6. Atrial fibrillation, chronic. 7. PAD 8. S/p septicemia==>KENA[facility] PLAN: Clinically unchanged, continue abx, f/u pulmonary/nephrology/card/ podiatry rec-s, Bipap prn [facility] staff Problems: JAMEY VAZQUEZ NP Sep 05, 2016 12:19
--- NOTE | 2016-09-05 16:18 | PN ---
Date/Time of Note Date/Time of Note DATE: 09/05/16 TIME: 16:14 Assessment/Plan VTE Prophylaxis VTE Prophylaxis Intervention: heparin (on hold) Lines/Catheters IV Catheter Type (from [facility]): Peripheral IV Urinary Cath still in place: No Assessment/Plan Chief Complaint/Hosp Course Assessment and plan 1. Left great toe osteomyelitis. Continue antibiotics as per infectious disease. Status post evaluation by vascular surgery. Continue vascular surgeon recommendations 2. Acute on chronic respiratory failure, hypoxic and hypercapnic. Still with more noted shortness of breath. . Continue BiPAP at night and as needed.. Continue inhaled bronchodilators. Medical Practitioners consulted. Noted with more fluid on right lower lung base. Tentative plan for hemodialysis per cash accounting clerk. Iron for thoracentesis per associate genetics professor 3. Pulmonary hypertension. Continue supplemental oxygen. 4. Acute on chronic kidney disease. Medications to be renally dosed. General Office Assistant following. Plan for hemodialysis 5. Congestive heart failure exacerbation. Acute on chronic diastolic dysfunction. Dialysis per cash accounting clerk. 6. Type 2 diabetes mellitus. Hemoglobin A1c 5.8. Continue carbohydrate controlled diet. Continue sliding scale insulin. 7. Essential hypertension. Continue antihypertensives. Adjust as needed 8. History of atrial fibrillation. Currently in sinus rhythm. Continue telemetry monitoring 9. Dyslipidemia. Continue statins. 10. Gout. Continue allopurinol. 11. Major depression. Continue selective serotonin reuptake inhibitors. 12. Morbid obesity with BMI of 42.5 kg/meter squared. Weight reduction advised. 13. Fluid, electrolytes, and nutrition. Renal, carbohydrate controlled diet. 14. Deep vein thrombosis prophylaxis. Subcutaneous heparin. 15. Gastrointestinal prophylaxis. Histamine 2 blockers. Disposition and plan: Tentative plan for thoracentesis. Dialysis per cash accounting clerk. Continue inpatient monitoring. Await clinical improvement of respiratory status Discussed plan of care with Problems: Subjective 24 Hr Interval Summary Free Text/Dictation Still with reported shortness of breath. Exam/Review of Systems Vital Signs Vitals Vital Signs Date Time Temp Pulse Resp B/P Pulse Ox O2 Delivery O2 Flow Rate FiO2 09/05/16 15:09 98.2 80 22 145/69 97 09/05/16 12:25 6.0 36 09/05/16 08:54 Nasal Cannula Intake and Output 09/04/16 09/04/16 09/05/16 15:00 23:00 07:00 Intake Total 850 ml 800 ml Output Total 400 ml 700 ml Balance 450 ml 100 ml Exam General: Morbidly obese.. Still with some reported shortness of breath Eyes: pupils equal round, Anicteric sclera Neck: Supple nontender, no JVD Cardiac: S1, S2 auscultated, regular rhythm and rate Pulmonary: Diminished at lung bases more notable on right lower lung base GI: Abdomen soft nontender nondistended, bowel sounds active Extremities: Edema bilateral lower extremities +2 to +3 Skin: Brownish discoloration of bilateral lower extremities Neurologic: Alert to person place and time and situation Results Result Diagram: 09/05/16 0639 09/05/16 0634 Results 24 hrs Laboratory Tests Test 09/04/16 17:24 09/04/16 21:44 09/05/16 06:34 09/05/16 06:39 Bedside Glucose 161 169 Activated Partial Thromboplast Time 39.8 H Anion Gap 17 H Blood Urea Nitrogen 94 H Calcium Level 8.4 Carbon Dioxide Level 25 Chloride Level 96 L Creatinine 2.24 H Glucose Level 91 # INR International Normalized Ratio 1.37 Platelet Count 214 212 Potassium Level 4.4 Prothrombin Time 16.9 H Prothrombin Time Ratio 1.3 Sodium Level 134 L Thrombin Time 15.0 Basophils # 0.0 Basophils % 0.4 Blood Morphology Comment Eosinophils # 0.6 H Eosinophils % 7.7 H Hematocrit 29.4 L Hemoglobin 9.5 L Lymphocytes # 1.1 Lymphocytes % 13.5 L Mean Corpuscular Hemoglobin 25.3 L Mean Corpuscular Hemoglobin Concent 32.4 Mean Corpuscular Volume 78.2 L Mean Platelet Volume 8.3 Monocytes # 0.7 Monocytes % 9.3 Neutrophils # 5.5 Neutrophils % 69.1 Nucleated Red Blood Cells # 0.0 Nucleated Red Blood Cells % 0.0 Red Blood Count 3.76 L Red Cell Distribution Width 22.1 H White Blood Count 7.9 Test 09/05/16 07:56 09/05/16 12:06 Bedside Glucose 92 135 Medications Medications Current Medications Acetaminophen (Tylenol Tab) 650 mg Q6H PRN PO PAIN LEVEL 1-3 OR FEVER; Start 08/13/16 at 17:30 Acetaminophen/ Hydrocodone Bitart ([place] (5/325)) 1 tab Q6H PRN PO MODERATE PAIN LEVEL 4-6 Last administered on 08/30/16at 02:54; Admin Dose 1 TAB; Start 08/13/16 at 17:30 Morphine Sulfate (morphine) 2 mg Q4H PRN IV SEVERE PAIN LEVEL 7-10 Last administered on 09/03/16 12:28; Admin Dose 2 MG; Start 08/13/16 at 17:30 Docusate Sodium (Colace) 100 mg Q12H PRN PO CONSTIPATION; Start 08/13/16 at 17 :30 Heparin Sodium (Porcine) (Heparin (5000 Units/0.5 ml)) 5,000 unit Q12 SC Last administered on 08/25/16 21:01; Admin Dose 5,000 UNIT; Start 08/13/16 at 21: 00; Status Future Hold Allopurinol (Zyloprim) 100 mg DAILY PO Last administered on 09/05/16 09:47; Admin Dose 100 MG; Start 08/14/16 at 09:00 Ascorbic Acid (Vitamin C) 500 mg DAILY PO Last administered on 09/05/16 09:48 ; Admin Dose 500 MG; Start 08/13/16 at 18:00 Aspirin (Halfprin) 81 mg DAILY PO Last administered on 09/05/16 09:47; Admin Dose 81 MG; Start 08/14/16 at 09:00 Atorvastatin Calcium (Lipitor) 10 mg QHS PO Last administered on 09/04/16 21: 14; Admin Dose 10 MG; Start 08/13/16 at 21:00 Cholecalciferol (Vitamin D) 1,000 unit DAILY PO Last administered on 09:46; Admin Dose 1,000 UNIT; Start 08/14/16 at 09:00 Ferrous Sulfate (Ferrous Sulfate (Ec)) 325 mg BID PO Last administered on 09/05 09:47; Admin Dose 325 MG; Start 08/13/16 at 21:00 Fish Oil (Fish Oil) 1,000 mg DAILY PO Last administered on 09/05/16 09:53; Admin Dose 1,000 MG; Start 08/14/16 at 09:00 Lactobacillus Acidoph/Bulgaricus (Floranex) 1 tab TID PO Last administered on 09/05/16 13:28; Admin Dose 1 TAB; Start 08/13/16 at 21:00 Metoprolol Tartrate (Lopressor) 12.5 mg BID PO Last administered on 09/04/16 21:17; Admin Dose 12.5 MG; Start 08/13/16 at 21:00 Pregabalin (Lyrica) 50 mg TID PO Last administered on 09/05/16at 13:28; Admin Dose 50 MG; Start 08/13/16 at 21:00 Pyridoxine HCl (Vitamin B6) 100 mg DAILY PO Last administered on 09/05/16 09: 48; Admin Dose 100 MG; Start 08/14/16 at 09:00 Simethicone (Mylicon) 80 mg Q6H PRN PO INTESTINAL SPASMS/CRAMPING Last administered on 09/02/16 17:10; Admin Dose 80 MG; Start 08/13/16 at 17:30 Vitamin E (Vitamin E) 400 units DAILY PO Last administered on 09/05/16 09:47 ; Admin Dose 400 UNITS; Start 08/14/16 at 09:00 Fluoxetine HCl (Prozac) 20 mg DAILY PO Last administered on 09/05/16at 09:46; Admin Dose 20 MG; Start 08/14/16 at 09:00 Miscellaneous Information 1 ea NOTE XX ; Start 08/13/16 at 18:00 Glucose (Glutose) 15 gm Q15M PRN PO DECREASED GLUCOSE; Start 08/13/16 at 18:00 Glucose (Glutose) 22.5 gm Q15M PRN PO DECREASED GLUCOSE; Start 08/13/16 at 18: 00 Dextrose (D50w Syringe) 25 ml Q15M PRN IV DECREASED GLUCOSE; Start 08/13/16 at 18:00 Dextrose (D50w Syringe) 50 ml Q15M PRN IV DECREASED GLUCOSE; Start 08/13/16 at 18:00 Glucagon (Glucagen) 1 mg Q15M PRN IM DECREASED GLUCOSE; Start 08/13/16 at 18: 00 Glucose (Glutose) 15 gm Q15M PRN BUCCAL DECREASED GLUCOSE; Start 08/13/16 at 18:00 Sodium Hypochlorite (Dakin'S (1/4 Strength)) 1 applic DAILY IRR Last administered on 09/05/16at 09:49; Admin Dose 1 APPLIC; Start 08/13/16 at 20:00 Acetaminophen/ Hydrocodone Bitart ([place] (5/325)) 2 tab Q6H PRN PO MODERATE PAIN LEVEL 4-6 Last administered on 09/05/16at 10:14; Admin Dose 2 TAB; Start 08/14/16 at 13:00 IV Flush (NS 10 ml) 10 ml PRN PRN IV IV PTOTOCOL; Start 08/14/16 at 17:00 Acetylcysteine (Nac) 600 mg BID PO Last administered on 09/05/16at 09:46; Admin Dose 600 MG; Start 08/16/16 at 21:00 Ondansetron HCl (Zofran Inj) 4 mg Q4H PRN IV NAUSEA AND/OR VOMITING; Start 08/16/16 at 12:30 Zolpidem Tartrate (Ambien) 10 mg HS PRN PO INSOMNIA Last administered on at 00:14; Admin Dose 10 MG; Start 08/16/16 at 21:00 Lorazepam (Ativan) 1 mg Q6 PRN PO ANXIETY Last administered on 08/25/16at 22:08 ; Admin Dose 1 MG; Start 08/18/16 at 14:30 Insulin Glargine (Lantus) 15 unit QHS SC Last administered on 09/04/16at 21:48 ; Admin Dose 15 UNIT; Start 08/19/16 at 21:00 Diagnostic Test (Pha) (Accucheck) 1 ea 02 XX Last administered on 08/30/16at 02 :47; Admin Dose 1 EA; Start 08/20/16 at 02:00 Phenol (Cepastat Lozenge) 1 lozenge Q1H PRN MT DRY MOUTH Last administered on 08/20/16at 21:28; Admin Dose 1 LOZENGE; Start 08/20/16 at 20:30 Lorazepam (Ativan) 1 mg HS PRN PO ANXIETY, HELP WITH SLEEP Last administered on 09/04/16at 22:45; Admin Dose 1 MG; Start 08/22/16 at 18:30 Diphenhydramine HCl (Benadryl) 25 mg Q6H PRN PO ITCHING Last administered on 16:17; Admin Dose 25 MG; Start 08/26/16 at 20:30 Famotidine 20 mg 20 mg DAILY PO Last administered on 09/05/16 09:47; Admin Dose 20 MG; Start 09/03/16 at 09:00 Bumetanide/ Dextrose (Bumex/D5W) 250 ml @ 10 mls/hr Q24H IV Last administered on 09/05/16 06:11; Admin Dose 10 MLS/HR; Start 09/04/16 at 07:30 Linezolid 600 mg 600 mg BID PO Last administered on 09/05/16 09:47; Admin Dose 600 MG; Start 09/04/16 at 14:30 Meropenem/Sodium Chloride (Merrem/NS) 100 ml @ 200 mls/hr Q12 IVPB Last administered on 09/05/16 09:49; Admin Dose 200 MLS/HR; Start 09/04/16 at 14: 30 GIUSEPPE BREAUX Sep 05, 2016 16:18
--- NOTE | 2016-09-05 17:22 | RADRPT ---
PROCEDURE: US bilateral upper extremity veins. CLINICAL INDICATION: Preoperative evaluation for central line placement. TECHNIQUE: Multiple longitudinal and transverse images of the bilateral internal jugular veins and subclavian veins was obtained with lai scale, pulsed Doppler imaging, and color Doppler imaging. COMPARISON: None available FINDINGS: The internal jugular veins and subclavian veins are patent bilaterally. There is normal flow and com pressibility throughout. There is no thrombus or occlusion. A PICC line is present in the right sub clavian vein. The right internal jugular vein diameter is 1.2 cm and the left internal jugular vein diameter is 1. 3 cm. IMPRESSION: 1. PICC line in the right subclavian vein. 2. Otherwise normal bilateral internal jugular and subclavian veins. RPTAT: QQ .Aldo Ramirez MD, Date Time Electronically viewed and signed by .Aldo Ramirez MD, on 09/05/2016 17:21 .R/
--- NOTE | 2016-09-05 18:56 | CONS ---
Date/Time of Note Date/Time of Note DATE: 09/05/16 TIME: 18:42 Assessment/Plan Assessment/Plan Problems: (1) Venous insufficiency (chronic) (peripheral) Comment: See podiatry note (2) Acute renal injury Status: Acute Comment: Mostly pre-renal azotemia (3) Hypoxia Status: Acute (4) Osteomyelitis of left foot Status: Chronic Comment: On AB Rx (5) Obesity Status: Chronic (6) Pulmonary hypertension Status: Chronic Comment: ABG shows CO2 retention, plans per pulm Dr Peres considering Thoracentasis. (7) Fluid overload Comment: Extensive discussion with pt/ Dr Peres: Difficult management probelm. In light of no response to the diuretics, HD is the only option, especially since pt remains with massive fluid overload. Spoke to Dr Ramirez, pt will need GA for Cath placement because he can not lie flat for the catheter placement. (8) Morbid obesity due to excess calories Status: Chronic Comment: Only complicates problem Consultation Date/Type/Reason Admit Date/Time Aug 13, 2016 at 16:30 Initial Consult Date 08/13/16 Type of Consultation: renal Referring Provider: KELLEN MEDINA MD 24 HR Interval Summary Subjective hx not possible: pt critical Constitutional: requiring O2 Exam/Review of Systems Vital Signs Vitals Vital Signs Date Time Temp Pulse Resp B/P Pulse Ox O2 Delivery O2 Flow Rate FiO2 09/05/16 17:12 94 6.0 36 09/05/16 16:25 81 09/05/16 15:09 98.2 22 145/69 09/05/16 08:54 Nasal Cannula Intake and Output 09/04/16 09/04/16 09/05/16 15:00 23:00 07:00 Intake Total 850 ml 800 ml Output Total 400 ml 700 ml Balance 450 ml 100 ml Exam Constitutional: alert, oriented Psych: anxiety Head: normocephalic Eyes: PERRL Respiratory: crackles/rales, diminished breath sounds, wheezing Cardiovascular: regular rate and rhythm Gastrointestinal: ascites Extremities: edema 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: ASSET CARD CLERK 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 Skin: other (weeping skin both lower ext) Results BUN/Creat 94/2.2 Not much increase in urine output Result Diagram: 09/05/16 0639 09/05/16 0634 Results 24 hrs Laboratory Tests Test 09/04/16 21:44 09/05/16 06:34 09/05/16 06:39 09/05/16 07:56 Bedside Glucose 169 92 Activated Partial Thromboplast Time 39.8 H Anion Gap 17 H Blood Urea Nitrogen 94 H Calcium Level 8.4 Carbon Dioxide Level 25 Chloride Level 96 L Creatinine 2.24 H Glucose Level 91 # INR International Normalized Ratio 1.37 Platelet Count 214 212 Potassium Level 4.4 Prothrombin Time 16.9 H Prothrombin Time Ratio 1.3 Sodium Level 134 L Thrombin Time 15.0 Basophils # 0.0 Basophils % 0.4 Blood Morphology Comment Eosinophils # 0.6 H Eosinophils % 7.7 H Hematocrit 29.4 L Hemoglobin 9.5 L Lymphocytes # 1.1 Lymphocytes % 13.5 L Mean Corpuscular Hemoglobin 25.3 L Mean Corpuscular Hemoglobin Concent 32.4 Mean Corpuscular Volume 78.2 L Mean Platelet Volume 8.3 Monocytes # 0.7 Monocytes % 9.3 Neutrophils # 5.5 Neutrophils % 69.1 Nucleated Red Blood Cells # 0.0 Nucleated Red Blood Cells % 0.0 Red Blood Count 3.76 L Red Cell Distribution Width 22.1 H White Blood Count 7.9 Test 09/05/16 12:06 09/05/16 17:17 Bedside Glucose 135 113 Medications Medications Current Medications Acetaminophen (Tylenol Tab) 650 mg Q6H PRN PO PAIN LEVEL 1-3 OR FEVER; Start 08/13/16 at 17:30 Acetaminophen/ Hydrocodone Bitart ([place] (5/325)) 1 tab Q6H PRN PO MODERATE PAIN LEVEL 4-6 Last administered on 08/30/16at 02:54; Admin Dose 1 TAB; Start 08/13/16 at 17:30 Morphine Sulfate (morphine) 2 mg Q4H PRN IV SEVERE PAIN LEVEL 7-10 Last administered on 09/03/16at 12:28; Admin Dose 2 MG; Start 08/13/16 at 17:30 Docusate Sodium (Colace) 100 mg Q12H PRN PO CONSTIPATION; Start 08/13/16 at 17 :30 Heparin Sodium (Porcine) (Heparin (5000 Units/0.5 ml)) 5,000 unit Q12 SC Last administered on 08/25/16at 21:01; Admin Dose 5,000 UNIT; Start 08/13/16 at 21: 00; Status Future Hold Allopurinol (Zyloprim) 100 mg DAILY PO Last administered on 09/05/16 09:47; Admin Dose 100 MG; Start 08/14/16 at 09:00 Ascorbic Acid (Vitamin C) 500 mg DAILY PO Last administered on 09/05/16 09:48 ; Admin Dose 500 MG; Start 08/13/16 at 18:00 Aspirin (Halfprin) 81 mg DAILY PO Last administered on 09/05/16 09:47; Admin Dose 81 MG; Start 08/14/16 at 09:00 Atorvastatin Calcium (Lipitor) 10 mg QHS PO Last administered on 09/04/16 21: 14; Admin Dose 10 MG; Start 08/13/16 at 21:00 Cholecalciferol (Vitamin D) 1,000 unit DAILY PO Last administered on 09:46; Admin Dose 1,000 UNIT; Start 08/14/16 at 09:00 Ferrous Sulfate (Ferrous Sulfate (Ec)) 325 mg BID PO Last administered on 09/05 09:47; Admin Dose 325 MG; Start 08/13/16 at 21:00 Fish Oil (Fish Oil) 1,000 mg DAILY PO Last administered on 09/05/16 09:53; Admin Dose 1,000 MG; Start 08/14/16 at 09:00 Lactobacillus Acidoph/Bulgaricus (Floranex) 1 tab TID PO Last administered on 09/05/16 13:28; Admin Dose 1 TAB; Start 08/13/16 at 21:00 Metoprolol Tartrate (Lopressor) 12.5 mg BID PO Last administered on 09/04/16 21:17; Admin Dose 12.5 MG; Start 08/13/16 at 21:00 Pregabalin (Lyrica) 50 mg TID PO Last administered on 09/05/16 13:28; Admin Dose 50 MG; Start 08/13/16 at 21:00 Pyridoxine HCl (Vitamin B6) 100 mg DAILY PO Last administered on 09/05/16 09: 48; Admin Dose 100 MG; Start 08/14/16 at 09:00 Simethicone (Mylicon) 80 mg Q6H PRN PO INTESTINAL SPASMS/CRAMPING Last administered on 09/02/16 17:10; Admin Dose 80 MG; Start 08/13/16 at 17:30 Vitamin E (Vitamin E) 400 units DAILY PO Last administered on 09/05/16at 09:47 ; Admin Dose 400 UNITS; Start 08/14/16 at 09:00 Fluoxetine HCl (Prozac) 20 mg DAILY PO Last administered on 09/05/16at 09:46; Admin Dose 20 MG; Start 08/14/16 at 09:00 Miscellaneous Information 1 ea NOTE XX ; Start 08/13/16 at 18:00 Glucose (Glutose) 15 gm Q15M PRN PO DECREASED GLUCOSE; Start 08/13/16 at 18:00 Glucose (Glutose) 22.5 gm Q15M PRN PO DECREASED GLUCOSE; Start 08/13/16 at 18: 00 Dextrose (D50w Syringe) 25 ml Q15M PRN IV DECREASED GLUCOSE; Start 08/13/16 at 18:00 Dextrose (D50w Syringe) 50 ml Q15M PRN IV DECREASED GLUCOSE; Start 08/13/16 at 18:00 Glucagon (Glucagen) 1 mg Q15M PRN IM DECREASED GLUCOSE; Start 08/13/16 at 18: 00 Glucose (Glutose) 15 gm Q15M PRN BUCCAL DECREASED GLUCOSE; Start 08/13/16 at 18:00 Sodium Hypochlorite (Dakin'S (1/4 Strength)) 1 applic DAILY IRR Last administered on 09/05/16at 09:49; Admin Dose 1 APPLIC; Start 08/13/16 at 20:00 Acetaminophen/ Hydrocodone Bitart ([place] (5/325)) 2 tab Q6H PRN PO MODERATE PAIN LEVEL 4-6 Last administered on 09/05/16at 18:10; Admin Dose 2 TAB; Start 08/14/16 at 13:00 IV Flush (NS 10 ml) 10 ml PRN PRN IV IV PTOTOCOL; Start 08/14/16 at 17:00 Acetylcysteine (Nac) 600 mg BID PO Last administered on 09/05/16at 09:46; Admin Dose 600 MG; Start 08/16/16 at 21:00 Ondansetron HCl (Zofran Inj) 4 mg Q4H PRN IV NAUSEA AND/OR VOMITING; Start 08/16/16 at 12:30 Zolpidem Tartrate (Ambien) 10 mg HS PRN PO INSOMNIA Last administered on at 00:14; Admin Dose 10 MG; Start 08/16/16 at 21:00 Lorazepam (Ativan) 1 mg Q6 PRN PO ANXIETY Last administered on 08/25/16 22:08 ; Admin Dose 1 MG; Start 08/18/16 at 14:30 Insulin Glargine (Lantus) 15 unit QHS SC Last administered on 09/04/16 21:48 ; Admin Dose 15 UNIT; Start 08/19/16 at 21:00 Diagnostic Test (Pha) (Accucheck) 1 ea 02 XX Last administered on 08/30/16 02 :47; Admin Dose 1 EA; Start 08/20/16 at 02:00 Phenol (Cepastat Lozenge) 1 lozenge Q1H PRN MT DRY MOUTH Last administered on 08/20/16 21:28; Admin Dose 1 LOZENGE; Start 08/20/16 at 20:30 Lorazepam (Ativan) 1 mg HS PRN PO ANXIETY, HELP WITH SLEEP Last administered on 09/04/16 22:45; Admin Dose 1 MG; Start 08/22/16 at 18:30 Diphenhydramine HCl (Benadryl) 25 mg Q6H PRN PO ITCHING Last administered on 16:17; Admin Dose 25 MG; Start 08/26/16 at 20:30 Famotidine 20 mg 20 mg DAILY PO Last administered on 09/05/16 09:47; Admin Dose 20 MG; Start 09/03/16 at 09:00 Bumetanide/ Dextrose (Bumex/D5W) 250 ml @ 10 mls/hr Q24H IV Last administered on 09/05/16 06:11; Admin Dose 10 MLS/HR; Start 09/04/16 at 07:30 Linezolid 600 mg 600 mg BID PO Last administered on 09/05/16 09:47; Admin Dose 600 MG; Start 09/04/16 at 14:30 Meropenem/Sodium Chloride (Merrem/NS) 100 ml @ 200 mls/hr Q12 IVPB Last administered on 09/05/16 09:49; Admin Dose 200 MLS/HR; Start 09/04/16 at 14: 30 ALONSO MARTINEZ MD Sep 05, 2016 18:54
[2016-09-05] MEDS: ATORVASTATIN 10 MG TAB PO SCH (20:56)
[2016-09-05] MEDS: INSULIN GLARGINE [LANtus] 3 ML PEN SC SCH (21:13)
[2016-09-05] MEDS: LORAZEPAM 1 MG TAB PO PRN (21:45)
[2016-09-06] VITALS (69 sets, daily range): BP systolic 98–128; BP diastolic 43–77; PULSE 63–84; RESP 6–29
[2016-09-06] MEDS: HYDROCODONE/APAP (5/325) TAB PO PRN (00:16)
[2016-09-06] MEDS: ALBUTEROL/IPRATROPIUM (NEB) 3 ML AMP HHN SCH ×4 (00:37→13:00)
[2016-09-06] MEDS: ACCUCHECK XX SCH (02:00)
[2016-09-06 07:26] LABS: BASOPHILS % 0.3 % (0.0-2.0); EOSINOPHILS # 0.7 10^3/ul (0.0-0.5); EOSINOPHILS % 9.5 % (0.0-7.0); HEMATOCRIT 28.6 % (42.0-52.0); HEMOGLOBIN 9.2 g/dl (14.0-18.0); LYMPHOCYTES # 0.7 10^3/ul (0.8-2.9); LYMPHOCYTES % 9.6 % (15.0-51.0); MEAN CORPUSCULAR HEMOGLOBIN 25.2 pg (29.0-33.0); MEAN CORPUSCULAR HGB CONC 32.3 g/dl (32.0-37.0); MEAN CORPUSCULAR VOLUME 78.2 fl (82.0-101.0); MEAN PLATELET VOLUME 9.1 fl (7.4-10.4); MONOCYTE # 0.8 10^3/ul (0.3-0.9); MONOCYTES % 10.4 % (0.0-11.0); NEUTROPHIL # 5.2 10^3/ul (1.6-7.5); NEUTROPHILS % 70.2 % (39.0-77.0); PLATELET COUNT 227 10^3/UL (140-440); RED BLOOD COUNT 3.65 10^6/ul (4.70-6.10); RED CELL DISTRIBUTION WIDTH 22.7 % (11.5-14.5); UNCORRECTED WBC 7.4 10^3/ul (4.8-10.8); WHITE BLOOD COUNT 7.4 10^3/ul (4.8-10.8)
[2016-09-06 07:48] LABS: POTASSIUM 3.9 mmol/L (3.5-5.1)
[2016-09-06 07:50] LABS: CREATININE 2.33 mg/dl (0.61-1.24)
[2016-09-06 07:51] LABS: CALCIUM 8.1 mg/dl (8.4-10.2); CONDITION 1; LH ANALYZER COMMENTS 1
[2016-09-06] MEDS: INSULIN ASPART [NOVOLOG] 3 ML PEN SC SCH ×8 (07:55→21:00)
--- NOTE | 2016-09-06 08:54 | RADRPT ---
PROCEDURE: Chest Radiograph. CLINICAL INDICATION: Pneumonia TECHNIQUE: Single frontal chest radiograph. COMPARISON: Chest radiograph 09/03/2016. CT chest 09/04/2016 FINDINGS: The heart remains enlarged. There is central vascular congestion. There is a moderate right pleura l effusion and small left pleural effusion. Patchy air space disease throughout the bilateral lung brower is unchanged in distribution and extent. No new infiltrates are seen. A right upper extremi ty PICC is in unchanged position. The bones are intact. IMPRESSION: 1. Stable radiographic appearance of chest compared to 09/03/2016. RPTAT: KK .Albaro Camarillo MD, MD Date Time Electronically viewed and signed by .Albaro Camarillo MD, on 09/06/2016 08:54 .B/
[2016-09-06] MEDS: CALCIUM CARBONATE 500 MG CHEW TAB PO SCH ×3 (08:55→21:29)
[2016-09-06] MEDS: PYRIDOXINE 50 MG TAB PO SCH (09:00)
[2016-09-06] MEDS: ALLOPURINOL 100 MG TAB PO SCH (09:00)
[2016-09-06] MEDS: CHOLECALCIFEROL 1,000 UNIT TAB PO SCH (09:00)
[2016-09-06] MEDS: VITAMIN E 400 UNITS CAP PO SCH (09:00)
[2016-09-06] MEDS: FERROUS SULFATE (EC) 325 MG TAB PO SCH (09:00)
[2016-09-06] MEDS: LACTOBACILLUS CHEW TAB PO SCH ×3 (09:00→21:29)
[2016-09-06] MEDS: PREGABALIN 25 MG CAP PO SCH ×3 (09:00→21:29)
[2016-09-06] MEDS: ASCORBIC ACID 500 MG TAB PO SCH (09:00)
[2016-09-06] MEDS: MEROPENEM 500 MG in SOD CHLORIDE 0.9% 100 ML IVPB SCH ×2 (09:00→20:55)
[2016-09-06] MEDS: ACETYLCYSTEINE 600 MG CAP PO SCH ×2 (09:00→21:00)
[2016-09-06] MEDS: FAMOTIDINE 20 MG TAB PO SCH (09:00)
[2016-09-06] MEDS: SODIUM HYPOCHLORITE 0.125% 473 ML BTL IRR SCH (09:00)
[2016-09-06] MEDS: FISH OIL 1,000 MG CAP PO SCH (09:00)
[2016-09-06] MEDS: ZYVOX 600 MG TAB PO SCH ×2 (09:00→21:28)
[2016-09-06] MEDS: ASPIRIN (EC) 81 MG TAB PO SCH (09:00)
[2016-09-06] MEDS: METOPROLOL 25 MG TAB PO SCH ×2 (09:00→21:00)
[2016-09-06] MEDS: FLUOXETINE 20 MG CAP PO SCH (09:00)
[2016-09-06] MEDS ORDERED: BUPIVACAINE 0.5% (SDV) 30 ML INJ ONE (09:28)
[2016-09-06] MEDS ORDERED: LIDOCAINE 1% (MPF) 30 ML INJ ONE (09:28)
[2016-09-06] MEDS ORDERED: PROPOFOL 20 ML ONE (09:35)
[2016-09-06] MEDS ORDERED: ROCURONIUM 50 MG INJ ONE (09:35)
[2016-09-06] MEDS ORDERED: LIDOCAINE 2% (SDV) 5 ML INJ ONE (09:35)
[2016-09-06] MEDS ORDERED: SUCCINYLCHOLINE CHLORIDE 100 MG/5 ML SYG IV ONE (09:35)
[2016-09-06] MEDS ORDERED: GLYCOPYRROLATE 0.4 MG INJ ONE ×3 (09:35→10:29)
[2016-09-06] MEDS ORDERED: NEOSTIGMINE 3 MG/3 ML SYRINGE ONE ×2 (09:35→10:29)
[2016-09-06] MEDS ORDERED: HEPARIN 1000 UNITS/ML 10 ML INJ ONE (10:13)
[2016-09-06] MEDS ORDERED: CEFAZOLIN 1 GM INJ ONE (10:15)
--- NOTE | 2016-09-06 10:17 | PN ---
Date/Time of Note Date/Time of Note DATE: 09/06/16 TIME: 10:13 Assessment/Plan VTE Prophylaxis VTE Prophylaxis Intervention: heparin (on hold ) Lines/Catheters IV Catheter Type (from [facility]): PICC Line Central line still needed: Yes Urinary Cath still in place: No Assessment/Plan Chief Complaint/Hosp Course Assessment and plan 1. Left great toe osteomyelitis. Continue antibiotics as per infectious disease. Status post evaluation by vascular surgery. Continue vascular surgeon recommendations 2. Acute on chronic respiratory failure, hypoxic and hypercapnic. Still with more noted shortness of breath. . Continue BiPAP at night and as needed.. Continue inhaled bronchodilators. Gauge Machine Operator consulted. Noted with more fluid on right lower lung base. dialysis per bear keeper 3. Pulmonary hypertension. Continue supplemental oxygen. 4. Acute on chronic kidney disease. Medications to be renally dosed. Oil Analyst following. Plan for hemodialysis 5. Congestive heart failure exacerbation. Acute on chronic diastolic dysfunction. Dialysis per bear keeper. 6. Type 2 diabetes mellitus. Hemoglobin A1c 5.8. Continue carbohydrate controlled diet. Continue sliding scale insulin. 7. Essential hypertension. Continue antihypertensives. Adjust as needed 8. History of atrial fibrillation. Currently in sinus rhythm. Continue telemetry monitoring 9. Dyslipidemia. Continue statins. 10. Gout. Continue allopurinol. 11. Major depression. Continue selective serotonin reuptake inhibitors. 12. Morbid obesity with BMI of 42.5 . Weight reduction advised. 13. Fluid, electrolytes, and nutrition. Renal, carbohydrate controlled diet. 14. Deep vein thrombosis prophylaxis. Subcutaneous heparin. 15. Gastrointestinal prophylaxis. Histamine 2 blockers. Disposition and plan: patient for permacath placement. dialysis per bear keeper. will follow up Discussed plan of care with Problems: Subjective 24 Hr Interval Summary Free Text/Dictation for permacath Exam/Review of Systems Vital Signs Vitals Vital Signs Date Time Temp Pulse Resp B/P Pulse Ox O2 Delivery O2 Flow Rate FiO2 09/06/16 09:04 63 09/06/16 07:36 97.5 20 118/55 95 09/06/16 05:23 40 09/05/16 17:12 6.0 09/05/16 08:54 Nasal Cannula Intake and Output 09/05/16 09/05/16 09/06/16 15:00 23:00 07:00 Intake Total 910 ml 600 ml Output Total 750 ml 600 ml Balance 160 ml 0 ml Exam for permacath Results Result Diagram: 09/06/16 0620 09/06/16 0620 Results 24 hrs Laboratory Tests Test 09/05/16 12:06 09/05/16 17:17 09/05/16 21:10 09/06/16 06:20 Bedside Glucose 135 113 143 Anion Gap 17 H Basophils # 0.0 Basophils % 0.3 Blood Morphology Comment Blood Urea Nitrogen 95 H Calcium Level 8.1 L Carbon Dioxide Level 26 Chloride Level 95 L Creatinine 2.33 H Eosinophils # 0.7 H Eosinophils % 9.5 H Glucose Level 72 Hematocrit 28.6 L Hemoglobin 9.2 L Lymphocytes # 0.7 L Lymphocytes % 9.6 L Mean Corpuscular Hemoglobin 25.2 L Mean Corpuscular Hemoglobin Concent 32.3 Mean Corpuscular Volume 78.2 L Mean Platelet Volume 9.1 Monocytes # 0.8 Monocytes % 10.4 Neutrophils # 5.2 Neutrophils % 70.2 Nucleated Red Blood Cells # 0.0 Nucleated Red Blood Cells % 0.0 Platelet Count 227 Potassium Level 3.9 Red Blood Count 3.65 L Red Cell Distribution Width 22.7 H Sodium Level 134 L White Blood Count 7.4 Test 09/06/16 07:54 09/06/16 08:43 Bedside Glucose 76 96 Medications Medications Current Medications Acetaminophen (Tylenol Tab) 650 mg Q6H PRN PO PAIN LEVEL 1-3 OR FEVER; Start 08/13/16 at 17:30 Acetaminophen/ Hydrocodone Bitart ([place] (5/325)) 1 tab Q6H PRN PO MODERATE PAIN LEVEL 4-6 Last administered on 08/30/16at 02:54; Admin Dose 1 TAB; Start 08/13/16 at 17:30 Morphine Sulfate (morphine) 2 mg Q4H PRN IV SEVERE PAIN LEVEL 7-10 Last administered on 09/03/16at 12:28; Admin Dose 2 MG; Start 08/13/16 at 17:30 Docusate Sodium (Colace) 100 mg Q12H PRN PO CONSTIPATION; Start 08/13/16 at 17 :30 Heparin Sodium (Porcine) (Heparin (5000 Units/0.5 ml)) 5,000 unit Q12 SC Last administered on 08/25/16at 21:01; Admin Dose 5,000 UNIT; Start 08/13/16 at 21: 00; Status Future Hold Allopurinol (Zyloprim) 100 mg DAILY PO Last administered on 09/05/16 09:47; Admin Dose 100 MG; Start 08/14/16 at 09:00 Ascorbic Acid (Vitamin C) 500 mg DAILY PO Last administered on 09/05/16 09:48 ; Admin Dose 500 MG; Start 08/13/16 at 18:00 Aspirin (Halfprin) 81 mg DAILY PO Last administered on 09/05/16 09:47; Admin Dose 81 MG; Start 08/14/16 at 09:00 Atorvastatin Calcium (Lipitor) 10 mg QHS PO Last administered on 09/05/16 20: 56; Admin Dose 10 MG; Start 08/13/16 at 21:00 Cholecalciferol (Vitamin D) 1,000 unit DAILY PO Last administered on 09:46; Admin Dose 1,000 UNIT; Start 08/14/16 at 09:00 Ferrous Sulfate (Ferrous Sulfate (Ec)) 325 mg BID PO Last administered on 09/05 20:56; Admin Dose 325 MG; Start 08/13/16 at 21:00 Fish Oil (Fish Oil) 1,000 mg DAILY PO Last administered on 09/05/16 09:53; Admin Dose 1,000 MG; Start 08/14/16 at 09:00 Lactobacillus Acidoph/Bulgaricus (Floranex) 1 tab TID PO Last administered on 09/05/16 20:56; Admin Dose 1 TAB; Start 08/13/16 at 21:00 Metoprolol Tartrate (Lopressor) 12.5 mg BID PO Last administered on 09/05/16 21:03; Admin Dose 12.5 MG; Start 08/13/16 at 21:00 Pregabalin (Lyrica) 50 mg TID PO Last administered on 09/05/16 20:56; Admin Dose 50 MG; Start 08/13/16 at 21:00 Pyridoxine HCl (Vitamin B6) 100 mg DAILY PO Last administered on 09/05/16 09: 48; Admin Dose 100 MG; Start 08/14/16 at 09:00 Simethicone (Mylicon) 80 mg Q6H PRN PO INTESTINAL SPASMS/CRAMPING Last administered on 09/05/16 18:54; Admin Dose 80 MG; Start 08/13/16 at 17:30 Vitamin E (Vitamin E) 400 units DAILY PO Last administered on 09/05/16at 09:47 ; Admin Dose 400 UNITS; Start 08/14/16 at 09:00 Fluoxetine HCl (Prozac) 20 mg DAILY PO Last administered on 09/05/16at 09:46; Admin Dose 20 MG; Start 08/14/16 at 09:00 Miscellaneous Information 1 ea NOTE XX ; Start 08/13/16 at 18:00 Glucose (Glutose) 15 gm Q15M PRN PO DECREASED GLUCOSE; Start 08/13/16 at 18:00 Glucose (Glutose) 22.5 gm Q15M PRN PO DECREASED GLUCOSE; Start 08/13/16 at 18: 00 Dextrose (D50w Syringe) 25 ml Q15M PRN IV DECREASED GLUCOSE; Start 08/13/16 at 18:00 Dextrose (D50w Syringe) 50 ml Q15M PRN IV DECREASED GLUCOSE; Start 08/13/16 at 18:00 Glucagon (Glucagen) 1 mg Q15M PRN IM DECREASED GLUCOSE; Start 08/13/16 at 18: 00 Glucose (Glutose) 15 gm Q15M PRN BUCCAL DECREASED GLUCOSE; Start 08/13/16 at 18:00 Sodium Hypochlorite (Dakin'S (1/4 Strength)) 1 applic DAILY IRR Last administered on 09/05/16at 09:49; Admin Dose 1 APPLIC; Start 08/13/16 at 20:00 Acetaminophen/ Hydrocodone Bitart ([place] (5/325)) 2 tab Q6H PRN PO MODERATE PAIN LEVEL 4-6 Last administered on 09/06/16at 00:16; Admin Dose 2 TAB; Start 08/14/16 at 13:00 IV Flush (NS 10 ml) 10 ml PRN PRN IV IV PTOTOCOL; Start 08/14/16 at 17:00 Acetylcysteine (Nac) 600 mg BID PO Last administered on 09/05/16at 20:57; Admin Dose 600 MG; Start 08/16/16 at 21:00 Ondansetron HCl (Zofran Inj) 4 mg Q4H PRN IV NAUSEA AND/OR VOMITING; Start 08/16/16 at 12:30 Zolpidem Tartrate (Ambien) 10 mg HS PRN PO INSOMNIA Last administered on at 22:44; Admin Dose 10 MG; Start 08/16/16 at 21:00 Lorazepam (Ativan) 1 mg Q6 PRN PO ANXIETY Last administered on 08/25/16 22:08 ; Admin Dose 1 MG; Start 08/18/16 at 14:30 Insulin Glargine (Lantus) 15 unit QHS SC Last administered on 09/05/16 21:13 ; Admin Dose 15 UNIT; Start 08/19/16 at 21:00 Diagnostic Test (Pha) (Accucheck) 1 ea 02 XX Last administered on 08/30/16 02 :47; Admin Dose 1 EA; Start 08/20/16 at 02:00 Phenol (Cepastat Lozenge) 1 lozenge Q1H PRN MT DRY MOUTH Last administered on 08/20/16 21:28; Admin Dose 1 LOZENGE; Start 08/20/16 at 20:30 Lorazepam (Ativan) 1 mg HS PRN PO ANXIETY, HELP WITH SLEEP Last administered on 09/05/16 21:45; Admin Dose 1 MG; Start 08/22/16 at 18:30 Diphenhydramine HCl (Benadryl) 25 mg Q6H PRN PO ITCHING Last administered on 16:17; Admin Dose 25 MG; Start 08/26/16 at 20:30 Famotidine (Pepcid) 20 mg DAILY PO Last administered on 09/05/16 09:47; Admin Dose 20 MG; Start 09/03/16 at 09:00 Linezolid 600 mg 600 mg BID PO Last administered on 09/05/16 21:16; Admin Dose 600 MG; Start 09/04/16 at 14:30 Meropenem/Sodium Chloride (Merrem/NS) 100 ml @ 200 mls/hr Q12 IVPB Last administered on 09/05/16 20:55; Admin Dose 200 MLS/HR; Start 09/04/16 at 14: 30 GIUSEPPE BREAUX Sep 06, 2016 10:17
--- NOTE | 2016-09-06 11:23 | RADRPT ---
PROCEDURE: Ultrasound guidance for placement of needle in right internal jugular vein. CLINICAL INDICATION: Venous access. TECHNIQUE: Prior to the procedure, informed consent was obtained. Risks including bleeding, infection, and pneu mothorax were explained to the patient. The patient understood and was willing to proceed. A procedu ral pause was performed. The patient's name, date of , and procedure to be performed were verif ied. The central line was inserted with all elements of maximal sterile barrier technique. All of th e following were used: head covering, facial mask, sterile gown, sterile gloves, a large sterile she et, hand hygiene, and 2% chlorhexidine for cutaneous antisepsis. The right neck and anterior/super ior chest wall was prepped and draped in usual sterile fashion. Limited sonography of the right neck was then performed. Noted is a patent right internal jugular ve in. Ultrasound images were recorded and stored in the patient's medical record. Following the local injection of Xylocaine, the right internal jugular vein was punctured under sono graphic guidance with a 20-gauge needle through which a 0.018 inch floppy tip guidewire was advanced into the superior vena cava. The patient tolerated the procedure well. The remainder of the proce dure was performed and dictated under separate cover. COMPARISON: None. FINDINGS: The ultrasound images demonstrate a patent right internal jugular vein. The subsequent images demon strate the needle entering the right internal jugular vein. IMPRESSION: 1. Ultrasound guidance for a needle placement in right internal jugular vein. RPTAT: QQ .Aldo Ramirez MD, Date Time Electronically viewed and signed by .Aldo Ramirez MD, on 09/06/2016 11:22 .R/
--- NOTE | 2016-09-06 11:25 | RADRPT ---
PROCEDURE: PLACEMENT OF RIGHT INTERNAL JUGULAR VENOUS TUNNELED DIALYSIS CATHETER. CLINICAL INDICATION: Renal failure. TECHNIQUE: Prior to the procedure, informed consent was obtained. Risks including bleeding, infection, and pneu mothorax were explained to the patient. The patient understood and was willing to proceed. A procedu ral pause was performed. The patient's name, date of , and procedure to be performed were verif ied. The central line was inserted with all elements of maximal sterile barrier technique. All of th e following were used: head covering, facial mask, sterile gown, sterile gloves, a large sterile she et, hand hygiene, and 2% chlorhexidine for cutaneous antisepsis. The right neck and anterior/super ior chest wall was prepped and draped in usual sterile fashion. Limited sonography of the right neck was then performed. Noted is a patent right internal jugular ve in. Ultrasound images were recorded and stored in the patient's medical record. Following the local injection of Xylocaine, the right internal jugular vein was punctured under sono graphic guidance with a 20-gauge needle through which a 0.018 inch floppy tip guidewire was advanced into the superior vena cava. The tract was dilated to 5 Macanese and the wire was then replaced with a 0.035 in Amplatz guidewire. A tunnel was then created from the anterior lateral aspect of the sup erior right chest wall to the puncture site in the neck and the catheter was pulled through the trac t. Serial dilatation was then performed and a 16 Macanese peel away sheath was introduced. The 14.5 Macanese 23cm tip to cuff Angiodynamics dialysis catheter was advanced through the 16 Macanese peel-away sheath. The tip of the catheter was confirmed in position within the right atrium. The peel-away sh eath was removed. The 2 ports were each flushed with 2.3 ml of 1:1000 heparin. The catheter was sec ured to the skin with 0 silk. The wound in the neck was closed with 3-0 Vicryl suture using subcuticular running technique. The site was dressed. The patient tolerated the procedure well. COMPARISON: None. FINDINGS: Final radiographic images demonstrate the tip of the catheter in the upper right atrium. A total of 14 seconds of fluoroscopy time was used. The ultrasound images demonstrate the needle entering the jugular vein. Ultrasound images were recorded and stored in the patient's medical record. IMPRESSION: 1. Percutaneous insertion of right internal jugular dialysis tunneled dialysis catheter under fluoro scopic and sonographic guidance. RPTAT: QQ .Aldo Ramirez MD, Date Time Electronically viewed and signed by .Aldo Ramirez MD, MD on 09/06/2016 11:24 .R/
--- NOTE | 2016-09-06 11:28 | RADRPT ---
PROCEDURE: US guided right thoracentesis. CLINICAL INDICATION: Shortness of breath. Right pleural effusion. TECHNIQUE: Prior to the procedure, informed consent was obtained. The risks, benefits, and alternatives were e xplained to the patient or the patient's family, including but not limited to bleeding, infection, p ain, visceral or vascular damage, shock, pneumothorax, chest tube placement, air embolism, and . The patient or the patient's family understood the risks and the alternatives and wished to proce ed with the study. Informed written consent was obtained. A procedural pause was performed. The patient's name, date of , and procedure to be performed were verified. Ultrasound of the right hemithorax was performed in the axial and sagittal planes. A right pleural e ffusion is noted. Utilizing ultrasound guidance, optimal location for entry to the pleural cavity wa s ascertained. The overlying skin was prepped and draped in the usual sterile fashion. Approximate ly 10 ml of 1% Xylocaine was injected locally for pain control. Using ultrasound guidance, a 5-Fren ch Yueh catheter was introduced into the right pleural space without difficulty. Fluid was aspirated . Ultrasound images were also obtained following the thoracentesis. COMPARISON: None. FINDINGS: Initial ultrasound demonstrates fluid in the right pleural space. Approximately 2.0 liters of serou s fluid was aspirated and sent to the laboratory. The post thoracentesis images demonstrate a very s mall remaining right pleural effusion. IMPRESSION: 1. Satisfactory ultrasound-guided right thoracentesis. RPTAT: QQ .Aldo Ramirez MD, MD Date Time Electronically viewed and signed by .Aldo Ramirez MD, on 09/06/2016 11:26 .R/
[2016-09-06] MEDS ORDERED: MEPERIDINE 25 MG INJ IV PRN (12:30)
[2016-09-06] MEDS ORDERED: FENTAnyl 50 MCG/ML VIAL IV PRN ×2 (12:30)
[2016-09-06] MEDS ORDERED: LABETALOL HCL 20MG INJ IV PRN (12:30)
[2016-09-06] MEDS ORDERED: PROPOFOL 100 ML IV SCH (12:30)
[2016-09-06] MEDS ORDERED: HYDROmorphONE (0.2 MG/ML) 10ML SYG IV PRN ×2 (12:30)
[2016-09-06] MEDS ORDERED: EPHEDrine SULFATE 50 MG/5 ML SYG IV PRN (12:30)
[2016-09-06] MEDS ORDERED: METOCLOPRAMIDE 10 MG INJ IV PRN (12:30)
[2016-09-06] MEDS ORDERED: ONDANSETRON 4 MG INJ IV PRN (12:30)
[2016-09-06] MEDS ORDERED: hydrALAzine 20 MG INJ IV PRN (12:30)
[2016-09-06] MEDS ORDERED: MIDAZOLAM 1 MG/ML 2 ML INJ IV PRN (12:30)
[2016-09-06] MEDS ORDERED: DIPHENHYDRAMINE 50 MG INJ IV PRN (12:30)
[2016-09-06] MEDS ORDERED: morphine (1 MG/ML) 10ML SYRINGE IV PRN ×2 (12:30)
--- NOTE | 2016-09-06 13:03 | RADRPT ---
PROCEDURE: XR Chest. CLINICAL INDICATION: Shortness of breath. Post right thoracentesis. TECHNIQUE: Single frontal view. COMPARISON: Prior study done earlier the same day. FINDINGS: There is a new right internal jugular vein tunneled dialysis catheter with the tip in the upper righ t atrium. The endotracheal tube is in satisfactory position with the tip 3.8 cm above the nithin. Previously noted right pleural effusion is no longer present. There is mild air space disease in th e right mid lung zone. There is mild pulmonary edema, unchanged. The heart is enlarged. Surgical clips are present in the left side of the neck. There is no pleural effusion. There is no pneumothorax. IMPRESSION: 1. No pneumothorax following right thoracentesis. 2. New right internal jugular vein tunneled dialysis catheter in satisfactory position. 3. Endotracheal tube in satisfactory position. 4. No other change from the prior study done earlier the same day. RPTAT: QQ .Aldo Ramirez MD, MD Date Time Electronically viewed and signed by .Aldo Ramirez MD, MD on 09/06/2016 13:02 .R/
[2016-09-06 13:04] LABS: FLUID APPEARANCE SLIGHTLY HAZY; FLUID TYPE PLEURAL
[2016-09-06 13:05] LABS: FLUID RBC EST 1+; FLUID WBC'S 207 /cmm
[2016-09-06 13:18] LABS: AADO2 Arterial 324.2 mmHg (7.0-24.0); Allen Test ACCEPTAB; Arterial Base Excess -2.1 mmol/L (-3.0-3); Arterial COHb 0.5 % (0.0-3.0); Arterial Fraction of Oxyhgb 89.7 % (93.0-99.0); Arterial HCO3 22.9 mmol/L (22.0-26.0); Arterial MetHb 0.3 % (0.0-1.5); Arterial Total Hemglobin 11.5 g/dl (12.0-18.0); MODE VENT - AC
[2016-09-06 13:20] LABS: FLUID BASOPHIL 0 %; FLUID EOSINOPHIL 0 %; FLUID LYMPHOCYTES 29 %; FLUID MONOCYTES 62 %; FLUID NEUTROPHILS 9 %
[2016-09-06 14:41] LABS: FLUID TYPE THORACENTESIS FLUID
[2016-09-06 14:42] LABS: FLUID TYPE THORACENTESIS FLUID
[2016-09-06 15:14] LABS: FLUID TOTAL PROTEIN 3.4 g/dl
[2016-09-06 15:17] LABS: FLUID GLUCOSE 81 mg/dl
--- NOTE | 2016-09-06 18:28 | CONS ---
Date/Time of Note Date/Time of Note DATE: 09/06/16 TIME: 18:27 Consult Date/Type/Reason Admit Date/Time Aug 13, 2016 at 16:30 Initial Consult Date 08/13/16 Type of Consultation: id Ordering Provider: KELLEN MEDINA MD Subjective no events, looks comfortable, no fevers Objective Vital Signs Date Time Temp Pulse Resp B/P Pulse Ox O2 Delivery O2 Flow Rate FiO2 09/06/16 17:31 22 92 60 09/06/16 17:30 82 110/43 09/06/16 16:00 Mechanical Ventilator 09/06/16 11:51 98.0 09/05/16 17:12 6.0 Intake and Output 09/05/16 09/05/16 09/06/16 15:00 23:00 07:00 Intake Total 910 ml 600 ml Output Total 750 ml 600 ml Balance 160 ml 0 ml Results/Medications Result Diagram: 09/06/16 0620 09/06/16 0620 Results 24 hrs Laboratory Tests Test 09/05/16 21:10 09/06/16 06:20 09/06/16 07:54 09/06/16 08:43 Bedside Glucose 143 76 96 Anion Gap 17 H Basophils # 0.0 Basophils % 0.3 Blood Morphology Comment Blood Urea Nitrogen 95 H Calcium Level 8.1 L Carbon Dioxide Level 26 Chloride Level 95 L Creatinine 2.33 H Eosinophils # 0.7 H Eosinophils % 9.5 H Glucose Level 72 Hematocrit 28.6 L Hemoglobin 9.2 L Lymphocytes # 0.7 L Lymphocytes % 9.6 L Mean Corpuscular Hemoglobin 25.2 L Mean Corpuscular Hemoglobin Concent 32.3 Mean Corpuscular Volume 78.2 L Mean Platelet Volume 9.1 Monocytes # 0.8 Monocytes % 10.4 Neutrophils # 5.2 Neutrophils % 70.2 Nucleated Red Blood Cells # 0.0 Nucleated Red Blood Cells % 0.0 Platelet Count 227 Potassium Level 3.9 Red Blood Count 3.65 L Red Cell Distribution Width 22.7 H Sodium Level 134 L White Blood Count 7.4 Test 09/06/16 11:04 09/06/16 13:00 09/06/16 13:40 Body Fluid Appearance SLIGHTLY HAZY Body Fluid Basophils % 0 Body Fluid Color YELLOW Body Fluid Eosinophils % 0 Body Fluid Glucose 81 Body Fluid Lactate Dehydrogenase Body Fluid Lymphocytes (%) 29 Body Fluid Monocytes % 62 Body Fluid Neutrophils % 9 Body Fluid Other Cells (%) 0 Body Fluid RBC 1+ Body Fluid Total Protein 3.4 Body Fluid Type THORACENTESIS FLUID Body Fluid Volume 2000.0 Body Fluid WBC 207 Arterial Blood HCO3 22.9 Arterial Blood Base Excess -2.1 Arterial Blood Oxygen Saturation 90.4 L Khoi Test ACCEPTAB Arterial Blood Gas Puncture Site Right Radial Arterial Blood Carboxyhemoglobin 0.5 Arterial Blood Date Drawn 09/06/2016 1:00:20 PM Arterial Blood Methemoglobin 0.3 Arterial Blood pCO2 (Temp correct) 40.0 Arterial Blood pH (Temp corrected) 7.375 Arterial Blood pO2 (Temp corrected) 59.6 L Blood Gas A-a O2 Differential 324.2 H Blood Gas Actual Respiration Rate 23 Blood Gas Low PEEP Setting 5.0 Blood Gas Modality VENT - AC Blood Gas Notified Time 09/06/2016 1:18:05 PM Blood Gas Notified Whom JLD Blood Gas Respiration Rate 18.0 Blood Gas Specimen Source Blood arterial Blood Gas Temperature 37.0 Blood Gas Tidal Volume 600.0 FiO2 60.0 Oxyhemoglobin Percent 89.7 L Total Hemoglobin 11.5 L Bedside Glucose 83 Medications Current Medications Acetaminophen (Tylenol Tab) 650 mg Q6H PRN PO PAIN LEVEL 1-3 OR FEVER; Start 08/13/16 at 17:30 Acetaminophen/ Hydrocodone Bitart ([place] (5/325)) 1 tab Q6H PRN PO MODERATE PAIN LEVEL 4-6 Last administered on 08/30/16at 02:54; Admin Dose 1 TAB; Start 08/13/16 at 17:30 Morphine Sulfate (morphine) 2 mg Q4H PRN IV SEVERE PAIN LEVEL 7-10 Last administered on 09/03/16at 12:28; Admin Dose 2 MG; Start 08/13/16 at 17:30 Docusate Sodium (Colace) 100 mg Q12H PRN PO CONSTIPATION; Start 08/13/16 at 17 :30 Heparin Sodium (Porcine) (Heparin (5000 Units/0.5 ml)) 5,000 unit Q12 SC Last administered on 08/25/16at 21:01; Admin Dose 5,000 UNIT; Start 08/13/16 at 21: 00; Status Future Hold Allopurinol (Zyloprim) 100 mg DAILY PO Last administered on 09/05/16at 09:47; Admin Dose 100 MG; Start 08/14/16 at 09:00 Ascorbic Acid (Vitamin C) 500 mg DAILY PO Last administered on 09/05/16 09:48 ; Admin Dose 500 MG; Start 08/13/16 at 18:00 Aspirin (Halfprin) 81 mg DAILY PO Last administered on 09/05/16 09:47; Admin Dose 81 MG; Start 08/14/16 at 09:00 Atorvastatin Calcium (Lipitor) 10 mg QHS PO Last administered on 09/05/16 20: 56; Admin Dose 10 MG; Start 08/13/16 at 21:00 Cholecalciferol (Vitamin D) 1,000 unit DAILY PO Last administered on 09:46; Admin Dose 1,000 UNIT; Start 08/14/16 at 09:00 Ferrous Sulfate (Ferrous Sulfate (Ec)) 325 mg BID PO Last administered on 09/05 20:56; Admin Dose 325 MG; Start 08/13/16 at 21:00 Fish Oil (Fish Oil) 1,000 mg DAILY PO Last administered on 09/05/16 09:53; Admin Dose 1,000 MG; Start 08/14/16 at 09:00 Lactobacillus Acidoph/Bulgaricus (Floranex) 1 tab TID PO Last administered on 09/05/16 20:56; Admin Dose 1 TAB; Start 08/13/16 at 21:00 Metoprolol Tartrate (Lopressor) 12.5 mg BID PO Last administered on 09/05/16 21:03; Admin Dose 12.5 MG; Start 08/13/16 at 21:00 Pregabalin (Lyrica) 50 mg TID PO Last administered on 09/05/16 20:56; Admin Dose 50 MG; Start 08/13/16 at 21:00 Pyridoxine HCl (Vitamin B6) 100 mg DAILY PO Last administered on 09/05/16 09: 48; Admin Dose 100 MG; Start 08/14/16 at 09:00 Simethicone (Mylicon) 80 mg Q6H PRN PO INTESTINAL SPASMS/CRAMPING Last administered on 09/05/16 18:54; Admin Dose 80 MG; Start 08/13/16 at 17:30 Vitamin E (Vitamin E) 400 units DAILY PO Last administered on 09/05/16 09:47 ; Admin Dose 400 UNITS; Start 08/14/16 at 09:00 Fluoxetine HCl (Prozac) 20 mg DAILY PO Last administered on 09/05/16at 09:46; Admin Dose 20 MG; Start 08/14/16 at 09:00 Miscellaneous Information 1 ea NOTE XX ; Start 08/13/16 at 18:00 Glucose (Glutose) 15 gm Q15M PRN PO DECREASED GLUCOSE; Start 08/13/16 at 18:00 Glucose (Glutose) 22.5 gm Q15M PRN PO DECREASED GLUCOSE; Start 08/13/16 at 18: 00 Dextrose (D50w Syringe) 25 ml Q15M PRN IV DECREASED GLUCOSE; Start 08/13/16 at 18:00 Dextrose (D50w Syringe) 50 ml Q15M PRN IV DECREASED GLUCOSE; Start 08/13/16 at 18:00 Glucagon (Glucagen) 1 mg Q15M PRN IM DECREASED GLUCOSE; Start 08/13/16 at 18: 00 Glucose (Glutose) 15 gm Q15M PRN BUCCAL DECREASED GLUCOSE; Start 08/13/16 at 18:00 Sodium Hypochlorite (Dakin'S (1/4 Strength)) 1 applic DAILY IRR Last administered on 09/05/16at 09:49; Admin Dose 1 APPLIC; Start 08/13/16 at 20:00 Acetaminophen/ Hydrocodone Bitart ([place] (5/325)) 2 tab Q6H PRN PO MODERATE PAIN LEVEL 4-6 Last administered on 09/06/16at 00:16; Admin Dose 2 TAB; Start 08/14/16 at 13:00 IV Flush (NS 10 ml) 10 ml PRN PRN IV IV PTOTOCOL; Start 08/14/16 at 17:00 Acetylcysteine (Nac) 600 mg BID PO Last administered on 09/05/16at 20:57; Admin Dose 600 MG; Start 08/16/16 at 21:00 Ondansetron HCl (Zofran Inj) 4 mg Q4H PRN IV NAUSEA AND/OR VOMITING; Start 08/16/16 at 12:30 Zolpidem Tartrate (Ambien) 10 mg HS PRN PO INSOMNIA Last administered on at 22:44; Admin Dose 10 MG; Start 08/16/16 at 21:00 Lorazepam (Ativan) 1 mg Q6 PRN PO ANXIETY Last administered on 08/25/16at 22:08 ; Admin Dose 1 MG; Start 08/18/16 at 14:30 Insulin Glargine (Lantus) 15 unit QHS SC Last administered on 09/05/16at 21:13 ; Admin Dose 15 UNIT; Start 08/19/16 at 21:00 Diagnostic Test (Pha) (Accucheck) 1 ea 02 XX Last administered on 08/30/16at 02 :47; Admin Dose 1 EA; Start 08/20/16 at 02:00 Phenol (Cepastat Lozenge) 1 lozenge Q1H PRN MT DRY MOUTH Last administered on 08/20/16at 21:28; Admin Dose 1 LOZENGE; Start 08/20/16 at 20:30 Lorazepam (Ativan) 1 mg HS PRN PO ANXIETY, HELP WITH SLEEP Last administered on 09/05/16at 21:45; Admin Dose 1 MG; Start 08/22/16 at 18:30 Diphenhydramine HCl (Benadryl) 25 mg Q6H PRN PO ITCHING Last administered on at 16:17; Admin Dose 25 MG; Start 08/26/16 at 20:30 Famotidine (Pepcid) 20 mg DAILY PO Last administered on 09/05/16at 09:47; Admin Dose 20 MG; Start 09/03/16 at 09:00 Linezolid 600 mg 600 mg BID PO Last administered on 09/05/16at 21:16; Admin Dose 600 MG; Start 09/04/16 at 14:30 Meropenem/Sodium Chloride (Merrem/NS) 100 ml @ 200 mls/hr Q12 IVPB Last administered on 09/05/16at 20:55; Admin Dose 200 MLS/HR; Start 09/04/16 at 14: 30 Assessment/Plan Chief Complaint/Hosp Course MICROBIOLOGY: 08/13/16 Bld cx+ [facility] DIAGNOSTICS: 08/14/16 MRI revealed cellulitis and osteomyelitis of the left first toe. ANTIMICROBIALS: Zyvox Merrem Urinalysis on admission was negative. PHYSICAL EXAMINATION: GENERAL: Obese, well-developed, middle-aged white man who is sitting in a chair. Patient is on Bipap, in no distress. HEENT: Head atraumatic, normocephalic. Sclerae anicteric. Buccal mucosa dry. NECK: Supple, trachea midline. CHEST: Rise symmetrical. Breath sounds clear, diminished to bases. HEART: S1, S2. ABDOMEN: Soft, bowel tones present. EXTREMITIES: Bilateral Patrick wraps. ASSESSMENT: 1. Bilateral lower extremities acute on chronic cellulitis with chronic venous stasis and left toe osteomyelitis. 2. HCAP==> RLL per CT chest. 3. Acute on chronic respiratory failure 4. A/CKD. 5. Morbid obesity. 6. Atrial fibrillation, chronic. 7. PAD 8. S/p septicemia==>KENA[facility] PLAN: Clinically unchanged, continue abx, pending permacath placement, pulmonary /nephrology/card/podiatry rec-s. [facility] staff Problems: JAMEY VAZQUEZ NP Sep 06, 2016 18:28
[2016-09-06 19:16] LABS: AADO2 Arterial 322.6 mmHg (7.0-24.0); Allen Test ACCEPTAB; Arterial Base Excess 0.2 mmol/L (-3.0-3); Arterial COHb 0.3 % (0.0-3.0); Arterial Fraction of Oxyhgb 92.3 % (93.0-99.0); Arterial HCO3 24.8 mmol/L (22.0-26.0); Arterial MetHb 0.1 % (0.0-1.5); Arterial Total Hemglobin 9.6 g/dl (12.0-18.0); Blood Gas PS 10; MODE VENT - CPAP
--- NOTE | 2016-09-06 19:32 | CONS ---
Date/Time of Note Date/Time of Note DATE: 09/06/16 TIME: 19:29 Assessment/Plan Assessment/Plan Additional Assessment/Plan 60 yo Male with 1) Venous insufficiency (chronic) (peripheral) Comment: See podiatry note (2) Acute renal injury Status: Acute Comment: Mostly pre-renal azotemia (3) Hypoxia Status: Acute (4) Osteomyelitis of left foot Status: Chronic Comment: On AB Rx (5) Obesity Status: Chronic (6) Pulmonary hypertension Status: Chronic Comment: ABG shows CO2 retention, plans per pulm Dr Peres considering Thoracentasis. (7) Fluid overload Comment: S/p PC, Will initiate HD in am. (8) Morbid obesity due to excess calories Status: Chronic Consultation Date/Type/Reason Admit Date/Time Aug 13, 2016 at 16:30 Initial Consult Date 08/13/16 Type of Consultation: Nephrology Referring Provider: KELLEN MEDINA MD 24 HR Interval Summary Free Text/Dictation Seen in Recovery room. S/p PC. Remains intubated, Will be transferred to ICU Exam/Review of Systems Vital Signs Vitals Vital Signs Date Time Temp Pulse Resp B/P Pulse Ox O2 Delivery O2 Flow Rate FiO2 09/06/16 17:31 22 92 60 09/06/16 17:30 82 110/43 09/06/16 16:00 Mechanical Ventilator 09/06/16 11:51 98.0 09/05/16 17:12 6.0 Intake and Output 09/05/16 09/05/16 09/06/16 15:00 23:00 07:00 Intake Total 910 ml 600 ml Output Total 750 ml 600 ml Balance 160 ml 0 ml Exam Constitutional: No distress ENMT: mucosa pink and moist Respiratory: other (Vent) Cardiovascular: edema, regular rate and rhythm Gastrointestinal: non-tender, soft Skin: No diaphoresis Results Result Diagram: 09/06/16 0620 09/06/16 0620 Results 24 hrs Laboratory Tests Test 09/05/16 21:10 09/06/16 06:20 09/06/16 07:54 09/06/16 08:43 Bedside Glucose 143 76 96 Anion Gap 17 H Basophils # 0.0 Basophils % 0.3 Blood Morphology Comment Blood Urea Nitrogen 95 H Calcium Level 8.1 L Carbon Dioxide Level 26 Chloride Level 95 L Creatinine 2.33 H Eosinophils # 0.7 H Eosinophils % 9.5 H Glucose Level 72 Hematocrit 28.6 L Hemoglobin 9.2 L Lymphocytes # 0.7 L Lymphocytes % 9.6 L Mean Corpuscular Hemoglobin 25.2 L Mean Corpuscular Hemoglobin Concent 32.3 Mean Corpuscular Volume 78.2 L Mean Platelet Volume 9.1 Monocytes # 0.8 Monocytes % 10.4 Neutrophils # 5.2 Neutrophils % 70.2 Nucleated Red Blood Cells # 0.0 Nucleated Red Blood Cells % 0.0 Platelet Count 227 Potassium Level 3.9 Red Blood Count 3.65 L Red Cell Distribution Width 22.7 H Sodium Level 134 L White Blood Count 7.4 Test 09/06/16 11:04 09/06/16 13:00 09/06/16 13:40 09/06/16 17:40 Body Fluid Appearance SLIGHTLY HAZY Body Fluid Basophils % 0 Body Fluid Color YELLOW Body Fluid Eosinophils % 0 Body Fluid Glucose 81 Body Fluid Lactate Dehydrogenase Body Fluid Lymphocytes (%) 29 Body Fluid Monocytes % 62 Body Fluid Neutrophils % 9 Body Fluid Other Cells (%) 0 Body Fluid RBC 1+ Body Fluid Total Protein 3.4 Body Fluid Type THORACENTESIS FLUID Body Fluid Volume 2000.0 Body Fluid WBC 207 Arterial Blood HCO3 22.9 24.8 Arterial Blood Base Excess -2.1 0.2 Arterial Blood Oxygen Saturation 90.4 L 92.7 L Khoi Test ACCEPTAB ACCEPTAB Arterial Blood Gas Puncture Site Right Radial Right Radial Arterial Blood Carboxyhemoglobin 0.5 0.3 Arterial Blood Date Drawn 09/06/2016 1:00:20 PM 09/06/2016 5:51:25 PM Arterial Blood Methemoglobin 0.3 0.1 Arterial Blood pCO2 (Temp correct) 40.0 40.0 Arterial Blood pH (Temp corrected) 7.375 7.411 Arterial Blood pO2 (Temp corrected) 59.6 L 61.2 L Blood Gas A-a O2 Differential 324.2 H 322.6 H Blood Gas Actual Respiration Rate 23 22 Blood Gas Low PEEP Setting 5.0 5.0 Blood Gas Modality VENT - AC VENT - CPAP Blood Gas Notified Time 09/06/2016 1:18:05 PM 09/06/2016 5:58:51 PM Blood Gas Notified Whom EDNA ab Blood Gas Respiration Rate 18.0 Blood Gas Specimen Source Blood arterial Blood arterial Blood Gas Temperature 37.0 37.0 Blood Gas Tidal Volume 600.0 FiO2 60.0 60.0 Oxyhemoglobin Percent 89.7 L 92.3 L Total Hemoglobin 11.5 L 9.6 L Bedside Glucose 83 Blood Gas Pressure Support 10 Test 09/06/16 19:11 Bedside Glucose 60 L Medications Medications Current Medications Acetaminophen (Tylenol Tab) 650 mg Q6H PRN PO PAIN LEVEL 1-3 OR FEVER; Start 08/13/16 at 17:30 Acetaminophen/ Hydrocodone Bitart ([place] (5/325)) 1 tab Q6H PRN PO MODERATE PAIN LEVEL 4-6 Last administered on 08/30/16at 02:54; Admin Dose 1 TAB; Start 08/13/16 at 17:30 Morphine Sulfate (morphine) 2 mg Q4H PRN IV SEVERE PAIN LEVEL 7-10 Last administered on 09/03/16at 12:28; Admin Dose 2 MG; Start 08/13/16 at 17:30 Docusate Sodium (Colace) 100 mg Q12H PRN PO CONSTIPATION; Start 08/13/16 at 17 :30 Heparin Sodium (Porcine) (Heparin (5000 Units/0.5 ml)) 5,000 unit Q12 SC Last administered on 08/25/16 21:01; Admin Dose 5,000 UNIT; Start 08/13/16 at 21: 00; Status Future Hold Allopurinol (Zyloprim) 100 mg DAILY PO Last administered on 09/05/16 09:47; Admin Dose 100 MG; Start 08/14/16 at 09:00 Ascorbic Acid (Vitamin C) 500 mg DAILY PO Last administered on 09/05/16 09:48 ; Admin Dose 500 MG; Start 08/13/16 at 18:00 Aspirin (Halfprin) 81 mg DAILY PO Last administered on 09/05/16 09:47; Admin Dose 81 MG; Start 08/14/16 at 09:00 Atorvastatin Calcium (Lipitor) 10 mg QHS PO Last administered on 09/05/16 20: 56; Admin Dose 10 MG; Start 08/13/16 at 21:00 Cholecalciferol (Vitamin D) 1,000 unit DAILY PO Last administered on 09:46; Admin Dose 1,000 UNIT; Start 08/14/16 at 09:00 Ferrous Sulfate (Ferrous Sulfate (Ec)) 325 mg BID PO Last administered on 12/21 /16at 20:56; Admin Dose 325 MG; Start 08/13/16 at 21:00 Fish Oil (Fish Oil) 1,000 mg DAILY PO Last administered on 09/05/16at 09:53; Admin Dose 1,000 MG; Start 08/14/16 at 09:00 Lactobacillus Acidoph/Bulgaricus (Floranex) 1 tab TID PO Last administered on 09/05/16 20:56; Admin Dose 1 TAB; Start 08/13/16 at 21:00 Metoprolol Tartrate (Lopressor) 12.5 mg BID PO Last administered on 09/05/16 21:03; Admin Dose 12.5 MG; Start 08/13/16 at 21:00 Pregabalin (Lyrica) 50 mg TID PO Last administered on 09/05/16 20:56; Admin Dose 50 MG; Start 08/13/16 at 21:00 Pyridoxine HCl (Vitamin B6) 100 mg DAILY PO Last administered on 09/05/16 09: 48; Admin Dose 100 MG; Start 08/14/16 at 09:00 Simethicone (Mylicon) 80 mg Q6H PRN PO INTESTINAL SPASMS/CRAMPING Last administered on 09/05/16at 18:54; Admin Dose 80 MG; Start 08/13/16 at 17:30 Vitamin E (Vitamin E) 400 units DAILY PO Last administered on 09/05/16at 09:47 ; Admin Dose 400 UNITS; Start 08/14/16 at 09:00 Fluoxetine HCl (Prozac) 20 mg DAILY PO Last administered on 09/05/16 09:46; Admin Dose 20 MG; Start 08/14/16 at 09:00 Miscellaneous Information 1 ea NOTE XX ; Start 08/13/16 at 18:00 Glucose (Glutose) 15 gm Q15M PRN PO DECREASED GLUCOSE; Start 08/13/16 at 18:00 Glucose (Glutose) 22.5 gm Q15M PRN PO DECREASED GLUCOSE; Start 08/13/16 at 18: 00 Dextrose (D50w Syringe) 25 ml Q15M PRN IV DECREASED GLUCOSE; Start 08/13/16 at 18:00 Dextrose (D50w Syringe) 50 ml Q15M PRN IV DECREASED GLUCOSE; Start 08/13/16 at 18:00 Glucagon (Glucagen) 1 mg Q15M PRN IM DECREASED GLUCOSE; Start 08/13/16 at 18: 00 Glucose (Glutose) 15 gm Q15M PRN BUCCAL DECREASED GLUCOSE; Start 08/13/16 at 18:00 Sodium Hypochlorite (Dakin'S (1/4 Strength)) 1 applic DAILY IRR Last administered on 09/05/16at 09:49; Admin Dose 1 APPLIC; Start 08/13/16 at 20:00 Acetaminophen/ Hydrocodone Bitart ([place] (5/325)) 2 tab Q6H PRN PO MODERATE PAIN LEVEL 4-6 Last administered on 09/06/16at 00:16; Admin Dose 2 TAB; Start 08/14/16 at 13:00 IV Flush (NS 10 ml) 10 ml PRN PRN IV IV PTOTOCOL; Start 08/14/16 at 17:00 Acetylcysteine (Nac) 600 mg BID PO Last administered on 09/05/16at 20:57; Admin Dose 600 MG; Start 08/16/16 at 21:00 Ondansetron HCl (Zofran Inj) 4 mg Q4H PRN IV NAUSEA AND/OR VOMITING; Start 08/16/16 at 12:30 Zolpidem Tartrate (Ambien) 10 mg HS PRN PO INSOMNIA Last administered on at 22:44; Admin Dose 10 MG; Start 08/16/16 at 21:00 Lorazepam (Ativan) 1 mg Q6 PRN PO ANXIETY Last administered on 08/25/16at 22:08 ; Admin Dose 1 MG; Start 08/18/16 at 14:30 Insulin Glargine (Lantus) 15 unit QHS SC Last administered on 09/05/16at 21:13 ; Admin Dose 15 UNIT; Start 08/19/16 at 21:00 Diagnostic Test (Pha) (Accucheck) 1 ea 02 XX Last administered on 08/30/16 02 :47; Admin Dose 1 EA; Start 08/20/16 at 02:00 Phenol (Cepastat Lozenge) 1 lozenge Q1H PRN MT DRY MOUTH Last administered on 08/20/16 21:28; Admin Dose 1 LOZENGE; Start 08/20/16 at 20:30 Lorazepam (Ativan) 1 mg HS PRN PO ANXIETY, HELP WITH SLEEP Last administered on 09/05/16at 21:45; Admin Dose 1 MG; Start 08/22/16 at 18:30 Diphenhydramine HCl (Benadryl) 25 mg Q6H PRN PO ITCHING Last administered on at 16:17; Admin Dose 25 MG; Start 08/26/16 at 20:30 Famotidine (Pepcid) 20 mg DAILY PO Last administered on 09/05/16at 09:47; Admin Dose 20 MG; Start 09/03/16 at 09:00 Linezolid 600 mg 600 mg BID PO Last administered on 09/05/16at 21:16; Admin Dose 600 MG; Start 09/04/16 at 14:30 Meropenem 500 mg/ Sodium Chloride 100 ml @ 200 mls/hr Q12 IVPB Last administered on 09/05/16at 20:55; Admin Dose 200 MLS/HR; Start 09/04/16 at 14: 30 Propofol (Diprivan) 100 ml @ 3.915 mls/ hr Q12H IV ; Start 09/06/16 at 19:00 DYAN FRANKLIN MD Sep 06, 2016 19:32
[2016-09-06] MEDS: FERROUS SULFATE 60 MG/ML 5ML CUP PO SCH (20:59)
[2016-09-06] MEDS: ATORVASTATIN 10 MG TAB PO SCH (20:59)
[2016-09-06] MEDS: INSULIN GLARGINE [LANtus] 3 ML PEN SC SCH (21:00)
[2016-09-06] MEDS: PROPOFOL 100 ML IV SCH (21:03)
[2016-09-06] MEDS: IPRATROPIUM (HFA) 12.9 GM INHALER INH SCH (21:38)
[2016-09-06] MEDS: ALBUTEROL HFA 8 GM INHALER INH SCH (21:38)
[2016-09-06] MEDS: DEXTROSE 50% 50 ML SYRINGE IV PRN (23:55)
[2016-09-07] VITALS (45 sets, daily range): BP systolic 90–147; BP diastolic 50–84; PULSE 71–92; RESP 6–22
[2016-09-07] MEDS: ALBUTEROL HFA 8 GM INHALER INH SCH ×6 (01:27→21:14)
[2016-09-07] MEDS: IPRATROPIUM (HFA) 12.9 GM INHALER INH SCH ×6 (01:27→21:14)
[2016-09-07] MEDS: ACCUCHECK XX SCH (02:00)
[2016-09-07] MEDS: PROPOFOL 100 ML IV SCH ×7 (03:08→23:02)
[2016-09-07 05:32] LABS: POTASSIUM 3.9 mmol/L (3.5-5.1)
[2016-09-07 05:34] LABS: CREATININE 2.16 mg/dl (0.61-1.24)
[2016-09-07 05:35] LABS: CALCIUM 7.6 mg/dl (8.4-10.2)
[2016-09-07 05:36] LABS: BASOPHILS % 0.4 % (0.0-2.0); EOSINOPHILS # 0.4 10^3/ul (0.0-0.5); EOSINOPHILS % 6.5 % (0.0-7.0); HEMATOCRIT 25.8 % (42.0-52.0); HEMOGLOBIN 8.4 g/dl (14.0-18.0); LYMPHOCYTES # 0.8 10^3/ul (0.8-2.9); LYMPHOCYTES % 11.5 % (15.0-51.0); MEAN CORPUSCULAR HEMOGLOBIN 25.1 pg (29.0-33.0); MEAN CORPUSCULAR HGB CONC 32.5 g/dl (32.0-37.0); MEAN CORPUSCULAR VOLUME 77.3 fl (82.0-101.0); MEAN PLATELET VOLUME 8.9 fl (7.4-10.4); MONOCYTE # 0.7 10^3/ul (0.3-0.9); MONOCYTES % 9.6 % (0.0-11.0); PLATELET COUNT 181 10^3/UL (140-440); RED BLOOD COUNT 3.33 10^6/ul (4.70-6.10); RED CELL DISTRIBUTION WIDTH 22.1 % (11.5-14.5); UNCORRECTED WBC 6.9 10^3/ul (4.8-10.8); WHITE BLOOD COUNT 6.9 10^3/ul (4.8-10.8)
[2016-09-07 05:51] LABS: CONDITION 1; LH ANALYZER COMMENTS 1
[2016-09-07] MEDS: INSULIN ASPART [NOVOLOG] 3 ML PEN SC SCH ×7 (07:35→21:00)
[2016-09-07] MEDS: FERROUS SULFATE 60 MG/ML 5ML CUP PO SCH ×2 (08:19→21:04)
[2016-09-07] MEDS: ACETYLCYSTEINE 600 MG CAP PO SCH ×2 (08:19→21:04)
[2016-09-07] MEDS: PYRIDOXINE 50 MG TAB PO SCH (08:19)
[2016-09-07] MEDS: LACTOBACILLUS CHEW TAB PO SCH ×3 (08:19→21:04)
[2016-09-07] MEDS: CHOLECALCIFEROL 1,000 UNIT TAB PO SCH (08:19)
[2016-09-07] MEDS: FAMOTIDINE 20 MG TAB PO SCH (08:19)
[2016-09-07] MEDS: FLUOXETINE 20 MG CAP PO SCH (08:21)
[2016-09-07] MEDS: VITAMIN E 400 UNITS CAP PO SCH (08:21)
[2016-09-07] MEDS: ASCORBIC ACID 500 MG TAB PO SCH (08:21)
[2016-09-07] MEDS: FISH OIL 1,000 MG CAP PO SCH (08:21)
[2016-09-07] MEDS: ZYVOX 600 MG TAB PO SCH (08:21)
[2016-09-07] MEDS: ASPIRIN (EC) 81 MG TAB PO SCH (08:21)
[2016-09-07] MEDS: ALLOPURINOL 100 MG TAB PO SCH (08:21)
[2016-09-07] MEDS: CALCIUM CARBONATE 500 MG CHEW TAB PO SCH ×3 (08:21→17:56)
[2016-09-07] MEDS: METOPROLOL 25 MG TAB PO SCH ×2 (08:22→21:06)
[2016-09-07] MEDS: MEROPENEM 500 MG in SOD CHLORIDE 0.9% 100 ML IVPB SCH ×2 (08:23→21:20)
[2016-09-07] MEDS: SODIUM HYPOCHLORITE 0.125% 473 ML BTL IRR SCH (09:00)
[2016-09-07] MEDS: PREGABALIN 25 MG CAP PO SCH ×3 (11:21→22:17)
--- NOTE | 2016-09-07 12:26 | RADRPT ---
PROCEDURE: XR Chest. CLINICAL INDICATION: NG tube placement TECHNIQUE: Chest AP portable. COMPARISON: 09/06/2016 FINDINGS: New nasogastric tube with the tip in the stomach. Endotracheal tube 3 cm above the nithin. Right i nternal jugular tunneled dialysis catheter. Right arm PICC line with tip in superior vena cava. The mediastinal structures are unremarkable. There is calcification of the thoracic aorta (consiste nt with atherosclerosis). There is moderate cardiac enlargement. There is no change in the congest lurdes heart failure. There is no change in the RLL and LLL patchy consolidations (edema/pneumonia. T here are small bilateral pleural effusions. There are senescent changes of the axial skeleton. IMPRESSION: Moderate cardiac enlargement. No change in congestive heart failure. No change in RLL and LLL patchy consolidations (edema/pneumonia). New nasogastric tube in the stomach. RPTAT: HGDB .Jaya Vázquez MD, MD Date Time Electronically viewed and signed by .Jaya Vázquez MD, on 09/07/2016 12:25 .B/
--- NOTE | 2016-09-07 12:50 | CONS ---
Date/Time of Note Date/Time of Note DATE: 09/07/16 TIME: 12:48 Assessment/Plan Assessment/Plan Additional Assessment/Plan 60 yo Male with 1) Venous insufficiency (chronic) (peripheral) Comment: See podiatry note (2) Acute renal injury Status: Acute Comment: Mostly pre-renal azotemia (3) Hypoxia Status: Acute (4) Osteomyelitis of left foot Status: Chronic Comment: On AB Rx (5) Obesity Status: Chronic (6) Pulmonary hypertension Status: Chronic Comment: ABG shows CO2 retention, plans per pulm (7) Fluid overload Comment: S/p PC, S/p HD this am, HD tomorrow. Will order Bumex x 1 (8) Morbid obesity due to excess calories Status: Chronic Consultation Date/Type/Reason Admit Date/Time Aug 13, 2016 at 16:30 Initial Consult Date 08/13/16 Type of Consultation: Nephrology Reason for Consultation LORNA, CKD Referring Provider: KELLEN MEDINA MD 24 HR Interval Summary Free Text/Dictation Remains intubated, ICU status, S/p HD this am. Subjective hx not possible: pt critical status Constitutional: requiring O2 Exam/Review of Systems Vital Signs Vitals Vital Signs Date Time Temp Pulse Resp B/P Pulse Ox O2 Delivery O2 Flow Rate FiO2 09/07/16 12:28 86 18 96 75 09/07/16 09:00 147/84 Mechanical Ventilator 09/07/16 08:00 98.4 09/05/16 17:12 6.0 Intake and Output 09/06/16 09/06/16 09/07/16 15:00 23:00 07:00 Intake Total 350 ml 20 ml 74 ml Output Total 2 ml 160 ml 390 ml Balance 348 ml -140 ml -316 ml Exam Constitutional: No distress ENMT: mucosa pink and moist Respiratory: diminished breath sounds, No crackles/rales Cardiovascular: edema, regular rate and rhythm Gastrointestinal: distended, soft Skin: No diaphoresis Results Result Diagram: 09/07/1641909/07/16419 Results 24 hrs Laboratory Tests Test 09/06/16 13:00 09/06/16 13:40 09/06/16 17:40 09/06/16 19:11 Arterial Blood HCO3 22.9 24.8 Arterial Blood Base Excess -2.1 0.2 Arterial Blood Oxygen Saturation 90.4 L 92.7 L Khoi Test ACCEPTAB ACCEPTAB Arterial Blood Gas Puncture Site Right Radial Right Radial Arterial Blood Carboxyhemoglobin 0.5 0.3 Arterial Blood Date Drawn 09/06/2016 1:00:20 PM 09/06/2016 5:51:25 PM Arterial Blood Methemoglobin 0.3 0.1 Arterial Blood pCO2 (Temp correct) 40.0 40.0 Arterial Blood pH (Temp corrected) 7.375 7.411 Arterial Blood pO2 (Temp corrected) 59.6 L 61.2 L Blood Gas A-a O2 Differential 324.2 H 322.6 H Blood Gas Actual Respiration Rate 23 22 Blood Gas Low PEEP Setting 5.0 5.0 Blood Gas Modality VENT - AC VENT - CPAP Blood Gas Notified Time 09/06/2016 1:18:05 PM 09/06/2016 5:58:51 PM Blood Gas Notified Whom JLD ab Blood Gas Respiration Rate 18.0 Blood Gas Specimen Source Blood arterial Blood arterial Blood Gas Temperature 37.0 37.0 Blood Gas Tidal Volume 600.0 FiO2 60.0 60.0 Oxyhemoglobin Percent 89.7 L 92.3 L Total Hemoglobin 11.5 L 9.6 L Bedside Glucose 83 60 L Blood Gas Pressure Support 10 Test 09/06/16 19:36 09/06/16 23:48 09/07/16 00:12 09/07/16 04:20 Bedside Glucose 84 68 L 91 Anion Gap 18 H Basophils # 0.0 Basophils % 0.4 Blood Morphology Comment Blood Urea Nitrogen 91 H Calcium Level 7.6 L Carbon Dioxide Level 23 Chloride Level 98 Creatinine 2.16 H Eosinophils # 0.4 Eosinophils % 6.5 Glucose Level 158 Hematocrit 25.8 L Hemoglobin 8.4 L Lymphocytes # 0.8 Lymphocytes % 11.5 L Mean Corpuscular Hemoglobin 25.1 L Mean Corpuscular Hemoglobin Concent 32.5 Mean Corpuscular Volume 77.3 L Mean Platelet Volume 8.9 Monocytes # 0.7 Monocytes % 9.6 Neutrophils # 5.0 Neutrophils % 72.0 Nucleated Red Blood Cells # 0.0 Nucleated Red Blood Cells % 0.0 Platelet Count 181 # Potassium Level 3.9 Red Blood Count 3.33 L Red Cell Distribution Width 22.1 H Sodium Level 135 White Blood Count 6.9 Test 09/07/16 08:51 09/07/16 11:20 Bedside Glucose 77 90 Medications Medications Current Medications Acetaminophen (Tylenol Tab) 650 mg Q6H PRN PO PAIN LEVEL 1-3 OR FEVER; Start 08/13/16 at 17:30 Acetaminophen/ Hydrocodone Bitart ([place] (5/325)) 1 tab Q6H PRN PO MODERATE PAIN LEVEL 4-6 Last administered on 08/30/16 02:54; Admin Dose 1 TAB; Start 08/13/16 at 17:30 Morphine Sulfate (morphine) 2 mg Q4H PRN IV SEVERE PAIN LEVEL 7-10 Last administered on 09/03/16at 12:28; Admin Dose 2 MG; Start 08/13/16 at 17:30 Docusate Sodium (Colace) 100 mg Q12H PRN PO CONSTIPATION; Start 08/13/16 at 17 :30 Heparin Sodium (Porcine) (Heparin (5000 Units/0.5 ml)) 5,000 unit Q12 SC Last administered on 08/25/16at 21:01; Admin Dose 5,000 UNIT; Start 08/13/16 at 21: 00; Status Future Hold Allopurinol (Zyloprim) 100 mg DAILY PO Last administered on 09/07/16 08:21; Admin Dose 100 MG; Start 08/14/16 at 09:00 Ascorbic Acid (Vitamin C) 500 mg DAILY PO Last administered on 09/07/16 08:21 ; Admin Dose 500 MG; Start 08/13/16 at 18:00 Aspirin (Halfprin) 81 mg DAILY PO Last administered on 09/07/16 08:21; Admin Dose 81 MG; Start 08/14/16 at 09:00 Atorvastatin Calcium (Lipitor) 10 mg QHS PO Last administered on 09/06/16at 20: 59; Admin Dose 10 MG; Start 08/13/16 at 21:00 Cholecalciferol (Vitamin D) 1,000 unit DAILY PO Last administered on 08:19; Admin Dose 1,000 UNIT; Start 08/14/16 at 09:00 Fish Oil (Fish Oil) 1,000 mg DAILY PO Last administered on 09/07/16 08:21; Admin Dose 1,000 MG; Start 08/14/16 at 09:00 Lactobacillus Acidoph/Bulgaricus (Floranex) 1 tab TID PO Last administered on 09/07/16 08:19; Admin Dose 1 TAB; Start 08/13/16 at 21:00 Metoprolol Tartrate (Lopressor) 12.5 mg BID PO Last administered on 09/05/16at 21:03; Admin Dose 12.5 MG; Start 08/13/16 at 21:00 Pregabalin (Lyrica) 50 mg TID PO Last administered on 09/07/16at 11:21; Admin Dose 50 MG; Start 08/13/16 at 21:00 Pyridoxine HCl (Vitamin B6) 100 mg DAILY PO Last administered on 09/07/16at 08: 19; Admin Dose 100 MG; Start 08/14/16 at 09:00 Simethicone (Mylicon) 80 mg Q6H PRN PO INTESTINAL SPASMS/CRAMPING Last administered on 09/05/16at 18:54; Admin Dose 80 MG; Start 08/13/16 at 17:30 Vitamin E (Vitamin E) 400 units DAILY PO Last administered on 09/07/16at 08:21 ; Admin Dose 400 UNITS; Start 08/14/16 at 09:00 Fluoxetine HCl (Prozac) 20 mg DAILY PO Last administered on 09/07/16at 08:21; Admin Dose 20 MG; Start 08/14/16 at 09:00 Miscellaneous Information 1 ea NOTE XX ; Start 08/13/16 at 18:00 Glucose (Glutose) 15 gm Q15M PRN PO DECREASED GLUCOSE; Start 08/13/16 at 18:00 Glucose (Glutose) 22.5 gm Q15M PRN PO DECREASED GLUCOSE; Start 08/13/16 at 18: 00 Dextrose (D50w Syringe) 25 ml Q15M PRN IV DECREASED GLUCOSE Last administered on 09/06/16at 23:55; Admin Dose 25 ML; Start 08/13/16 at 18:00 Dextrose (D50w Syringe) 50 ml Q15M PRN IV DECREASED GLUCOSE; Start 08/13/16 at 18:00 Glucagon (Glucagen) 1 mg Q15M PRN IM DECREASED GLUCOSE; Start 08/13/16 at 18: 00 Glucose (Glutose) 15 gm Q15M PRN BUCCAL DECREASED GLUCOSE; Start 08/13/16 at 18:00 Sodium Hypochlorite ([place]akin'[place] (1/4 Strength)) 1 applic DAILY IRR Last administered on 09/07/16at 09:00; Admin Dose 1 APPLIC; Start 08/13/16 at 20:00 Acetaminophen/ Hydrocodone Bitart ([place] (5/325)) 2 tab Q6H PRN PO MODERATE PAIN LEVEL 4-6 Last administered on 09/06/16at 00:16; Admin Dose 2 TAB; Start 08/14/16 at 13:00 IV Flush (NS 10 ml) 10 ml PRN PRN IV IV PTOTOCOL; Start 08/14/16 at 17:00 Acetylcysteine (Nac) 600 mg BID PO Last administered on 09/07/16at 08:19; Admin Dose 600 MG; Start 08/16/16 at 21:00 Ondansetron HCl (Zofran Inj) 4 mg Q4H PRN IV NAUSEA AND/OR VOMITING; Start 08/16/16 at 12:30 Zolpidem Tartrate (Ambien) 10 mg HS PRN PO INSOMNIA Last administered on at 22:44; Admin Dose 10 MG; Start 08/16/16 at 21:00 Lorazepam (Ativan) 1 mg Q6 PRN PO ANXIETY Last administered on 08/25/16at 22:08 ; Admin Dose 1 MG; Start 08/18/16 at 14:30 Diagnostic Test (Pha) (Accucheck) 1 ea 02 XX Last administered on 09/07/16at 02 :00; Admin Dose 1 EA; Start 08/20/16 at 02:00 Phenol (Cepastat Lozenge) 1 lozenge Q1H PRN MT DRY MOUTH Last administered on 08/20/16at 21:28; Admin Dose 1 LOZENGE; Start 08/20/16 at 20:30 Lorazepam (Ativan) 1 mg HS PRN PO ANXIETY, HELP WITH SLEEP Last administered on 09/05/16at 21:45; Admin Dose 1 MG; Start 08/22/16 at 18:30 Diphenhydramine HCl (Benadryl) 25 mg Q6H PRN PO ITCHING Last administered on 16:17; Admin Dose 25 MG; Start 08/26/16 at 20:30 Famotidine (Pepcid) 20 mg DAILY PO Last administered on 09/07/16 08:19; Admin Dose 20 MG; Start 09/03/16 at 09:00 Linezolid 600 mg 600 mg BID PO Last administered on 09/07/16 08:21; Admin Dose 600 MG; Start 09/04/16 at 14:30 Meropenem 500 mg/ Sodium Chloride 100 ml @ 200 mls/hr Q12 IVPB Last administered on 09/07/16at 08:23; Admin Dose 200 MLS/HR; Start 09/04/16 at 14: 30 Propofol (Diprivan) 100 ml @ 3.915 mls/ hr Q12H IV Last administered on 10:18; Admin Dose 28.924 MLS/HR; Start 09/06/16 at 19:00 Ferrous Sulfate (Feosol Liquid Cup) 300 mg BID PO Last administered on 08:19; Admin Dose 300 MG; Start 09/06/16 at 21:00 Insulin Glargine (Lantus) 10 unit QHS SC ; Start 09/07/16 at 21:00 Procedures Procedures PROCEDURE: XR Chest. CLINICAL INDICATION: NG tube placement TECHNIQUE: Chest AP portable. COMPARISON: 09/06/2016 FINDINGS: New nasogastric tube with the tip in the stomach. Endotracheal tube 3 cm above the nithin. Right internal jugular tunneled dialysis catheter. Right arm PICC line with tip in superior vena cava. The mediastinal structures are unremarkable. There is calcification of the thoracic aorta (consistent with atherosclerosis). There is moderate cardiac enlargement. There is no change in the congestive heart failure. There is no change in the RLL and LLL patchy consolidations (edema/pneumonia. There are small bilateral pleural effusions. There are senescent changes of the axial skeleton. IMPRESSION: Moderate cardiac enlargement. No change in congestive heart failure. No change in RLL and LLL patchy consolidations (edema/pneumonia). New nasogastric tube in the stomach. RPTAT: HGDB .Jaya Vázquez MD, MD Date Time Electronically viewed and signed by .Jaya Vázquez MD, MD on 09/07/2016 12:25 DYAN FRANKLIN MD Sep 07, 2016 12:50
[2016-09-07] MEDS ORDERED: BUMETANIDE 1 MG INJ IV ONE (13:00)
[2016-09-07] MEDS: DEXTROSE 5% 1,000 ML IV SCH (13:33)
--- NOTE | 2016-09-07 14:08 | PN ---
Date/Time of Note Date/Time of Note DATE: 09/07/16 TIME: 14:04 Assessment/Plan VTE Prophylaxis VTE Prophylaxis Intervention: heparin Lines/Catheters IV Catheter Type (from [facility]): PICC Line Central line still needed: Yes Urinary Cath still in place: Yes Reason Cath still needed: other (indicate) (monitor I&O) Assessment/Plan Chief Complaint/Hosp Course Assessment and plan 1. Left great toe osteomyelitis. Continue antibiotics as per infectious disease. Status post evaluation by vascular surgery. Continue vascular surgeon recommendations 2. Acute on chronic respiratory failure, hypoxic and hypercapnic. Hoop Coiling Machine Operator is following. After permacath placement on 09/06/2016, patient was difficult to wean off ventilator. Continue monitoring in ICU. Follow-up with real estate listing consultant recommendations 3. Pulmonary hypertension. Continue supplemental oxygen. 4. Acute on chronic kidney disease. Medications to be renally dosed. Postal Service Mail Processor following. Plan for hemodialysis 5. Congestive heart failure exacerbation. Acute on chronic diastolic dysfunction. Dialysis per nursing information systems coordinator. 6. Type 2 diabetes mellitus. Hemoglobin A1c 5.8. Continue carbohydrate controlled diet. Continue sliding scale insulin. 7. Essential hypertension. Continue antihypertensives. Adjust as needed 8. History of atrial fibrillation. Currently in sinus rhythm. Continue telemetry monitoring 9. Dyslipidemia. Continue statins. 10. Gout. Continue allopurinol. 11. Major depression. Continue selective serotonin reuptake inhibitors. 12. Morbid obesity with BMI of 42.5 . Weight reduction advised. 13. Fluid, electrolytes, and nutrition. Renal, carbohydrate controlled diet. 14. Deep vein thrombosis prophylaxis. Subcutaneous heparin. 15. Gastrointestinal prophylaxis. Histamine 2 blockers. Disposition and plan: Dialysis per nursing information systems coordinator. Monitor for ability for vent liberation. Follow-up with real estate listing consultant recommendations Discussed plan of care with Current care time: 30 minutes Problems: Subjective 24 Hr Interval Summary Free Text/Dictation No apparent distress this time. Remains intubated. RN at bedside Exam/Review of Systems Vital Signs Vitals Vital Signs Date Time Temp Pulse Resp B/P Pulse Ox O2 Delivery O2 Flow Rate FiO2 09/07/16 12:28 86 18 96 75 09/07/16 09:00 147/84 Mechanical Ventilator 09/07/16 08:00 98.4 09/05/16 17:12 6.0 Intake and Output 12/22/16 12/22/16 12/23/16 15:00 23:00 07:00 Intake Total 350 ml 20 ml 74 ml Output Total 2 ml 160 ml 390 ml Balance 348 ml -140 ml -316 ml Exam General: Morbidly obese.. Intubated and sedated Eyes: pupils equal round, Anicteric sclera Neck: Supple nontender, no JVD Cardiac: S1, S2 auscultated, regular rhythm and rate Pulmonary: Diminished at lung bases more notable on right lower lung base GI: Abdomen soft nontender nondistended, bowel sounds active Extremities: Edema bilateral lower extremities +2 to +3 Skin: Brownish discoloration of bilateral lower extremities Neurologic: Intubated and sedated Results Result Diagram: 09/07/16 0420 09/07/16 0420 Results 24 hrs Laboratory Tests Test 09/06/16 17:40 09/06/16 19:11 09/06/16 19:36 09/06/16 23:48 Arterial Blood HCO3 24.8 Arterial Blood Base Excess 0.2 Arterial Blood Oxygen Saturation 92.7 L Khoi Test ACCEPTAB Arterial Blood Gas Puncture Site Right Radial Arterial Blood Carboxyhemoglobin 0.3 Arterial Blood Date Drawn 09/06/2016 5:51:25 PM Arterial Blood Methemoglobin 0.1 Arterial Blood pCO2 (Temp correct) 40.0 Arterial Blood pH (Temp corrected) 7.411 Arterial Blood pO2 (Temp corrected) 61.2 L Blood Gas A-a O2 Differential 322.6 H Blood Gas Actual Respiration Rate 22 Blood Gas Low PEEP Setting 5.0 Blood Gas Modality VENT - CPAP Blood Gas Notified Time 09/06/2016 5:58:51 PM Blood Gas Notified Whom ab Blood Gas Pressure Support 10 Blood Gas Specimen Source Blood arterial Blood Gas Temperature 37.0 FiO2 60.0 Oxyhemoglobin Percent 92.3 L Total Hemoglobin 9.6 L Bedside Glucose 60 L 84 68 L Test 09/07/16 00:12 09/07/16 04:20 09/07/16 08:51 09/07/16 11:20 Bedside Glucose 91 77 90 Anion Gap 18 H Basophils # 0.0 Basophils % 0.4 Blood Morphology Comment Blood Urea Nitrogen 91 H Calcium Level 7.6 L Carbon Dioxide Level 23 Chloride Level 98 Creatinine 2.16 H Eosinophils # 0.4 Eosinophils % 6.5 Glucose Level 158 Hematocrit 25.8 L Hemoglobin 8.4 L Lymphocytes # 0.8 Lymphocytes % 11.5 L Mean Corpuscular Hemoglobin 25.1 L Mean Corpuscular Hemoglobin Concent 32.5 Mean Corpuscular Volume 77.3 L Mean Platelet Volume 8.9 Monocytes # 0.7 Monocytes % 9.6 Neutrophils # 5.0 Neutrophils % 72.0 Nucleated Red Blood Cells # 0.0 Nucleated Red Blood Cells % 0.0 Platelet Count 181 # Potassium Level 3.9 Red Blood Count 3.33 L Red Cell Distribution Width 22.1 H Sodium Level 135 White Blood Count 6.9 Medications Medications Current Medications Acetaminophen (Tylenol Tab) 650 mg Q6H PRN PO PAIN LEVEL 1-3 OR FEVER; Start 08/13/16 at 17:30 Acetaminophen/ Hydrocodone Bitart ([place] (5/325)) 1 tab Q6H PRN PO MODERATE PAIN LEVEL 4-6 Last administered on 08/30/16at 02:54; Admin Dose 1 TAB; Start 08/13/16 at 17:30 Morphine Sulfate (morphine) 2 mg Q4H PRN IV SEVERE PAIN LEVEL 7-10 Last administered on 09/03/16at 12:28; Admin Dose 2 MG; Start 08/13/16 at 17:30 Docusate Sodium (Colace) 100 mg Q12H PRN PO CONSTIPATION; Start 08/13/16 at 17 :30 Heparin Sodium (Porcine) (Heparin (5000 Units/0.5 ml)) 5,000 unit Q12 SC Last administered on 08/25/16at 21:01; Admin Dose 5,000 UNIT; Start 08/13/16 at 21: 00; Status Future Hold Allopurinol (Zyloprim) 100 mg DAILY PO Last administered on 09/07/16 08:21; Admin Dose 100 MG; Start 08/14/16 at 09:00 Ascorbic Acid (Vitamin C) 500 mg DAILY PO Last administered on 09/07/16 08:21 ; Admin Dose 500 MG; Start 08/13/16 at 18:00 Aspirin (Halfprin) 81 mg DAILY PO Last administered on 09/07/16 08:21; Admin Dose 81 MG; Start 08/14/16 at 09:00 Atorvastatin Calcium (Lipitor) 10 mg QHS PO Last administered on 09/06/16at 20: 59; Admin Dose 10 MG; Start 08/13/16 at 21:00 Cholecalciferol (Vitamin D) 1,000 unit DAILY PO Last administered on 08:19; Admin Dose 1,000 UNIT; Start 08/14/16 at 09:00 Fish Oil (Fish Oil) 1,000 mg DAILY PO Last administered on 09/07/16 08:21; Admin Dose 1,000 MG; Start 08/14/16 at 09:00 Lactobacillus Acidoph/Bulgaricus (Floranex) 1 tab TID PO Last administered on 09/07/16 13:13; Admin Dose 1 TAB; Start 08/13/16 at 21:00 Metoprolol Tartrate (Lopressor) 12.5 mg BID PO Last administered on 09/05/16 21:03; Admin Dose 12.5 MG; Start 08/13/16 at 21:00 Pregabalin (Lyrica) 50 mg TID PO Last administered on 09/07/16 13:13; Admin Dose 50 MG; Start 08/13/16 at 21:00 Pyridoxine HCl (Vitamin B6) 100 mg DAILY PO Last administered on 09/07/16 08: 19; Admin Dose 100 MG; Start 08/14/16 at 09:00 Simethicone (Mylicon) 80 mg Q6H PRN PO INTESTINAL SPASMS/CRAMPING Last administered on 09/05/16at 18:54; Admin Dose 80 MG; Start 08/13/16 at 17:30 Vitamin E (Vitamin E) 400 units DAILY PO Last administered on 09/07/16 08:21 ; Admin Dose 400 UNITS; Start 08/14/16 at 09:00 Fluoxetine HCl (Prozac) 20 mg DAILY PO Last administered on 09/07/16 08:21; Admin Dose 20 MG; Start 08/14/16 at 09:00 Miscellaneous Information 1 ea NOTE XX ; Start 08/13/16 at 18:00 Glucose (Glutose) 15 gm Q15M PRN PO DECREASED GLUCOSE; Start 08/13/16 at 18:00 Glucose (Glutose) 22.5 gm Q15M PRN PO DECREASED GLUCOSE; Start 08/13/16 at 18: 00 Dextrose (D50w Syringe) 25 ml Q15M PRN IV DECREASED GLUCOSE Last administered on 09/06/16at 23:55; Admin Dose 25 ML; Start 08/13/16 at 18:00 Dextrose (D50w Syringe) 50 ml Q15M PRN IV DECREASED GLUCOSE; Start 08/13/16 at 18:00 Glucagon (Glucagen) 1 mg Q15M PRN IM DECREASED GLUCOSE; Start 08/13/16 at 18: 00 Glucose (Glutose) 15 gm Q15M PRN BUCCAL DECREASED GLUCOSE; Start 08/13/16 at 18:00 Sodium Hypochlorite (Dakin'S (1/4 Strength)) 1 applic DAILY IRR Last administered on 09/07/16at 09:00; Admin Dose 1 APPLIC; Start 08/13/16 at 20:00 Acetaminophen/ Hydrocodone Bitart ([place] (5/325)) 2 tab Q6H PRN PO MODERATE PAIN LEVEL 4-6 Last administered on 09/06/16at 00:16; Admin Dose 2 TAB; Start 08/14/16 at 13:00 IV Flush (NS 10 ml) 10 ml PRN PRN IV IV PTOTOCOL; Start 08/14/16 at 17:00 Acetylcysteine (Nac) 600 mg BID PO Last administered on 09/07/16at 08:19; Admin Dose 600 MG; Start 08/16/16 at 21:00 Ondansetron HCl (Zofran Inj) 4 mg Q4H PRN IV NAUSEA AND/OR VOMITING; Start 08/16/16 at 12:30 Zolpidem Tartrate (Ambien) 10 mg HS PRN PO INSOMNIA Last administered on at 22:44; Admin Dose 10 MG; Start 08/16/16 at 21:00 Lorazepam (Ativan) 1 mg Q6 PRN PO ANXIETY Last administered on 08/25/16at 22:08 ; Admin Dose 1 MG; Start 08/18/16 at 14:30 Diagnostic Test (Pha) (Accucheck) 1 ea 02 XX Last administered on 09/07/16at 02 :00; Admin Dose 1 EA; Start 08/20/16 at 02:00 Phenol (Cepastat Lozenge) 1 lozenge Q1H PRN MT DRY MOUTH Last administered on 08/20/16at 21:28; Admin Dose 1 LOZENGE; Start 08/20/16 at 20:30 Lorazepam (Ativan) 1 mg HS PRN PO ANXIETY, HELP WITH SLEEP Last administered on 09/05/16at 21:45; Admin Dose 1 MG; Start 08/22/16 at 18:30 Diphenhydramine HCl (Benadryl) 25 mg Q6H PRN PO ITCHING Last administered on 16:17; Admin Dose 25 MG; Start 08/26/16 at 20:30 Famotidine (Pepcid) 20 mg DAILY PO Last administered on 09/07/16 08:19; Admin Dose 20 MG; Start 09/03/16 at 09:00 Linezolid 600 mg 600 mg BID PO Last administered on 09/07/16 08:21; Admin Dose 600 MG; Start 09/04/16 at 14:30 Meropenem 500 mg/ Sodium Chloride 100 ml @ 200 mls/hr Q12 IVPB Last administered on 09/07/16 08:23; Admin Dose 200 MLS/HR; Start 09/04/16 at 14: 30 Propofol (Diprivan) 100 ml @ 3.915 mls/ hr Q12H IV Last administered on 13:35; Admin Dose 28.971 MLS/HR; Start 09/06/16 at 19:00 Ferrous Sulfate (Feosol Liquid Cup) 300 mg BID PO Last administered on 08:19; Admin Dose 300 MG; Start 09/06/16 at 21:00 Insulin Glargine 10 unit 10 unit QHS SC ; Start 09/07/16 at 21:00 Dextrose (D5W) 1,000 ml @ 50 mls/hr Q20H IV Last administered on 09/07/16 13 :33; Admin Dose 50 MLS/HR; Start 09/07/16 at 13:00 GIUSEPPE BREAUX Sep 07, 2016 14:08
[2016-09-07] MEDS ORDERED: VANCOMYCIN IV PER PHARMACY XX SCH (17:00)
[2016-09-07] MEDS ORDERED: VANCOMYCIN 1.75 GM in NS 500 ML IVPB SCH (18:30)
[2016-09-07] MEDS ORDERED: VANCOMYCIN 2 GM in SOD CHLORIDE 0.9% 500 ML IVPB SCH (18:30)
[2016-09-07] MEDS: ATORVASTATIN 10 MG TAB PO SCH (21:04)
--- NOTE | 2016-09-07 21:11 | PN ---
DATE: 09/07/2016 INFECTIOUS DISEASE PROGRESS NOTE SUBJECTIVE: The patient was transferred to ICU yesterday secondary to being unable to wean off the vent post-procedure. He is lying comfortably in bed. Currently in hemodialysis. VITAL SIGNS: Stable, no fevers. Temperature 98.4, pulse 86, respirations 18, blood pressure 119/67 , saturation 92%. LABORATORY DATA: WBC today 6.9, H and H 8.4 and 25.8, platelets 181, neutrophils 72. BUN 91, creat inine 2.16. INDWELLINGS: Left upper extremity PICC line, right chest Perm-A-Cath, endotracheal tube and NG tube . ANTIMICROBIALS: 1. The patient is on Zyvox. 2. Meropenem. PHYSICAL EXAMINATION: GENERAL: This is a morbidly obese, chronically ill-appearing, middle-aged man who is lying comforta randy in bed. HEENT: Head atraumatic, normocephalic. Sclerae anicteric. Buccal mucosa dry. NECK: Supple, trachea midline. CHEST: Rise symmetrical. Breath sounds diminished to bases. HEART: S1, S2. ABDOMEN: Distended, soft. Bowel tones hypoactive. EXTREMITIES: With bilateral edema. Bilateral lower extremities Patrick wrapped. ASSESSMENT: 1. Respiratory failure, status post intubated for procedure and remains on vent postoperatively. 2. Acute on chronic kidney disease, now on hemodialysis, status post Perm-A-Cath on 09/06/2016. 3. Pulmonary edema. 4. Healthcare-associated pneumonia. 5. Bilateral lower extremities acute on chronic cellulitis with left toe osteomyelitis. 6. Chronic atrial fibrillation. 7. Status post oxacillin sensitive septicemia on admission. PLAN: The patient remains hemodynamically stable, covered with appropriate antimicrobials. We are going to change Zyvox to IV vancomycin given the fact that the patient is on hemodialysis already. Continue meropenem. We will try to get sputum cultures while he is intubated. Follow recommendatio ns of consultants. Dictated By: JAMEY VAZQUEZ CHEESE COOK for DONAVAN BRITTON MD NI/NTS Conf#: [id number] DID#: [id number] CC: KELLEN MEDINA MD; DONAVAN BRITTON MD;*EndCC*
[2016-09-07] MEDS: HEPARIN 5,000 UNIT/0.5 ML SYG SC SCH (21:14)
[2016-09-07] MEDS: INSULIN GLARGINE [LANtus] 3 ML PEN SC SCH (21:47)
[2016-09-08] VITALS (45 sets, daily range): BP systolic 93–115; BP diastolic 50–67; PULSE 69–82; RESP 0–22
[2016-09-08] MEDS: IPRATROPIUM (HFA) 12.9 GM INHALER INH SCH ×6 (00:52→21:08)
[2016-09-08] MEDS: ALBUTEROL HFA 8 GM INHALER INH SCH ×6 (00:52→21:08)
[2016-09-08] MEDS: PROPOFOL 100 ML IV SCH ×8 (02:13→23:33)
[2016-09-08] MEDS: ACCUCHECK XX SCH (02:21)
[2016-09-08 06:41] LABS: BASOPHILS % 0.4 % (0.0-2.0); EOSINOPHILS # 0.7 10^3/ul (0.0-0.5); EOSINOPHILS % 9.3 % (0.0-7.0); HEMATOCRIT 27.1 % (42.0-52.0); HEMOGLOBIN 8.7 g/dl (14.0-18.0); LYMPHOCYTES # 0.6 10^3/ul (0.8-2.9); LYMPHOCYTES % 7.7 % (15.0-51.0); MEAN CORPUSCULAR HEMOGLOBIN 24.9 pg (29.0-33.0); MEAN CORPUSCULAR HGB CONC 32.3 g/dl (32.0-37.0); MEAN CORPUSCULAR VOLUME 77.3 fl (82.0-101.0); MEAN PLATELET VOLUME 8.2 fl (7.4-10.4); MONOCYTE # 0.7 10^3/ul (0.3-0.9); MONOCYTES % 8.4 % (0.0-11.0); NEUTROPHILS % 74.2 % (39.0-77.0); PLATELET COUNT 170 10^3/UL (140-440); RED CELL DISTRIBUTION WIDTH 22.6 % (11.5-14.5); UNCORRECTED WBC 8.1 10^3/ul (4.8-10.8); WHITE BLOOD COUNT 8.1 10^3/ul (4.8-10.8)
[2016-09-08 07:01] LABS: POTASSIUM 3.6 mmol/L (3.5-5.1)
[2016-09-08 07:03] LABS: CONDITION 1; LH ANALYZER COMMENTS 1
[2016-09-08 07:04] LABS: CREATININE 1.78 mg/dl (0.61-1.24)
[2016-09-08 07:05] LABS: CALCIUM 7.6 mg/dl (8.4-10.2)
[2016-09-08] MEDS: INSULIN ASPART [NOVOLOG] 3 ML PEN SC SCH ×7 (07:35→20:22)
[2016-09-08] MEDS: FISH OIL 1,000 MG CAP PO SCH (07:55)
[2016-09-08] MEDS: LACTOBACILLUS CHEW TAB PO SCH ×3 (07:55→20:16)
[2016-09-08] MEDS: PYRIDOXINE 50 MG TAB PO SCH (07:55)
[2016-09-08] MEDS: FERROUS SULFATE 60 MG/ML 5ML CUP PO SCH ×2 (07:55→20:16)
[2016-09-08] MEDS: CALCIUM CARBONATE 500 MG CHEW TAB PO SCH ×3 (07:55→16:38)
[2016-09-08] MEDS: FAMOTIDINE 20 MG TAB PO SCH (07:56)
[2016-09-08] MEDS: CHOLECALCIFEROL 1,000 UNIT TAB PO SCH (07:56)
[2016-09-08] MEDS: ALLOPURINOL 100 MG TAB PO SCH (07:56)
[2016-09-08] MEDS: FLUOXETINE 20 MG CAP PO SCH (07:56)
[2016-09-08] MEDS: ASPIRIN (EC) 81 MG TAB PO SCH (07:56)
[2016-09-08] MEDS: ASCORBIC ACID 500 MG TAB PO SCH (07:56)
[2016-09-08] MEDS: SODIUM HYPOCHLORITE 0.125% 473 ML BTL IRR SCH (07:57)
[2016-09-08] MEDS: METOPROLOL 25 MG TAB PO SCH ×2 (07:58→20:17)
[2016-09-08] MEDS: HEPARIN 5,000 UNIT/0.5 ML SYG SC SCH ×2 (08:05→20:19)
[2016-09-08] MEDS: PREGABALIN 25 MG CAP PO SCH ×3 (08:06→20:33)
[2016-09-08] MEDS: ACETYLCYSTEINE 600 MG CAP PO SCH ×2 (08:06→20:16)
[2016-09-08] MEDS: VITAMIN E 400 UNITS CAP PO SCH (08:06)
[2016-09-08] MEDS: DEXTROSE 5% 1,000 ML IV SCH (08:11)
[2016-09-08] MEDS: MEROPENEM 500 MG in SOD CHLORIDE 0.9% 100 ML IVPB SCH (08:12)
--- NOTE | 2016-09-08 14:09 | PN ---
Date/Time of Note Date/Time of Note DATE: 09/08/16 TIME: 14:07 Assessment/Plan VTE Prophylaxis VTE Prophylaxis Intervention: heparin Lines/Catheters IV Catheter Type (from Nrs): PICC Line Central line still needed: Yes Urinary Cath still in place: Yes Reason Cath still needed: other (indicate) (monitor I&O) Assessment/Plan Chief Complaint/Hosp Course Assessment and plan 1. Left great toe osteomyelitis. Continue antibiotics as per infectious disease. Status post evaluation by vascular surgery. Continue vascular surgeon recommendations 2. Acute on chronic respiratory failure, hypoxic and hypercapnic. Windows Mobile Developer is following. After permacath placement on 09/06/2016, patient was difficult to wean off ventilator. Continue monitoring in ICU. Follow-up with wound care specialist recommendations 3. Pulmonary hypertension. Continue supplemental oxygen. 4. Acute on chronic kidney disease. Medications to be renally dosed. Decision Support Manager following. Plan for hemodialysis 5. Congestive heart failure exacerbation. Acute on chronic diastolic dysfunction. Dialysis per deployment specialist. 6. Type 2 diabetes mellitus. Hemoglobin A1c 5.8. Continue carbohydrate controlled diet. Continue sliding scale insulin. 7. Essential hypertension. Continue antihypertensives. Adjust as needed 8. History of atrial fibrillation. Currently in sinus rhythm. Continue telemetry monitoring 9. Dyslipidemia. Continue statins. 10. Gout. Continue allopurinol. 11. Major depression. Continue selective serotonin reuptake inhibitors. 12. Morbid obesity with BMI of 42.5 . Weight reduction advised. 13. Fluid, electrolytes, and nutrition. Renal, carbohydrate controlled diet. 14. Deep vein thrombosis prophylaxis. Subcutaneous heparin. 15. Gastrointestinal prophylaxis. Histamine 2 blockers. Disposition and plan: continue dialysis. assess for ability for vent liberation. cont with wound care specialist alex. continue icu monitoring Discussed plan of care with Current care time: 30 minutes Problems: Subjective 24 Hr Interval Summary Free Text/Dictation remains intubated and sedated Exam/Review of Systems Vital Signs Vitals Vital Signs Date Time Temp Pulse Resp B/P Pulse Ox O2 Delivery O2 Flow Rate FiO2 09/08/16 13:12 80 18 96 70 09/08/16 12:00 98.4 106/62 Mechanical Ventilator 09/05/16 17:12 6.0 Intake and Output 09/07/16 09/07/16 09/08/16 15:00 23:00 07:00 Intake Total 862.661 ml 709.736 ml 406.60 ml Output Total 1620 ml 875 ml 600 ml Balance -757.339 ml -165.264 ml -193.40 ml Exam General: Morbidly obese.. Intubated and sedated Eyes: pupils equal round, Anicteric sclera Neck: Supple nontender, no JVD Cardiac: S1, S2 auscultated, regular rhythm and rate Pulmonary: Diminished at lung bases more notable on right lower lung base GI: Abdomen soft nontender nondistended, bowel sounds active Extremities: Edema bilateral lower extremities +2 to +3 Skin: Brownish discoloration of bilateral lower extremities Neurologic: Intubated and sedated Results Result Diagram: 09/08/16 0548 09/08/16 0540 Results 24 hrs Laboratory Tests Test 09/07/16 17:57 09/07/16 21:08 09/07/16 21:39 09/08/16 02:51 Bedside Glucose 87 80 79 86 Test 09/08/16 05:40 09/08/16 05:48 09/08/16 07:53 09/08/16 12:26 Anion Gap 17 H Blood Urea Nitrogen 74 H Calcium Level 7.6 L Carbon Dioxide Level 26 Chloride Level 97 Creatinine 1.78 H Glucose Level 74 # Potassium Level 3.6 Sodium Level 136 Basophils # 0.0 Basophils % 0.4 Blood Morphology Comment Eosinophils # 0.7 H Eosinophils % 9.3 H Hematocrit 27.1 L Hemoglobin 8.7 L Lymphocytes # 0.6 L Lymphocytes % 7.7 L Mean Corpuscular Hemoglobin 24.9 L Mean Corpuscular Hemoglobin Concent 32.3 Mean Corpuscular Volume 77.3 L Mean Platelet Volume 8.2 Monocytes # 0.7 Monocytes % 8.4 Neutrophils # 6.0 Neutrophils % 74.2 Nucleated Red Blood Cells # 0.0 Nucleated Red Blood Cells % 0.0 Platelet Count 170 Red Blood Count 3.50 L Red Cell Distribution Width 22.6 H White Blood Count 8.1 Bedside Glucose 91 98 Medications Medications Current Medications Acetaminophen (Tylenol Tab) 650 mg Q6H PRN PO PAIN LEVEL 1-3 OR FEVER; Start 08/13/16 at 17:30 Acetaminophen/ Hydrocodone Bitart ([place] (5/325)) 1 tab Q6H PRN PO MODERATE PAIN LEVEL 4-6 Last administered on 08/30/16at 02:54; Admin Dose 1 TAB; Start 08/13/16 at 17:30 Morphine Sulfate (morphine) 2 mg Q4H PRN IV SEVERE PAIN LEVEL 7-10 Last administered on 09/03/16 12:28; Admin Dose 2 MG; Start 08/13/16 at 17:30 Docusate Sodium (Colace) 100 mg Q12H PRN PO CONSTIPATION; Start 08/13/16 at 17 :30 Heparin Sodium (Porcine) (Heparin (5000 Units/0.5 ml)) 5,000 unit Q12 SC Last administered on 08/25/16 21:01; Admin Dose 5,000 UNIT; Start 08/13/16 at 21: 00; Status Future Hold Allopurinol (Zyloprim) 100 mg DAILY PO Last administered on 09/08/16 07:56; Admin Dose 100 MG; Start 08/14/16 at 09:00 Ascorbic Acid (Vitamin C) 500 mg DAILY PO Last administered on 09/08/16 07:56 ; Admin Dose 500 MG; Start 08/13/16 at 18:00 Aspirin (Halfprin) 81 mg DAILY PO Last administered on 09/08/16 07:56; Admin Dose 81 MG; Start 08/14/16 at 09:00 Atorvastatin Calcium (Lipitor) 10 mg QHS PO Last administered on 09/07/16 21: 04; Admin Dose 10 MG; Start 08/13/16 at 21:00 Cholecalciferol (Vitamin D) 1,000 unit DAILY PO Last administered on 07:56; Admin Dose 1,000 UNIT; Start 08/14/16 at 09:00 Fish Oil (Fish Oil) 1,000 mg DAILY PO Last administered on 09/08/16 07:55; Admin Dose 1,000 MG; Start 08/14/16 at 09:00 Lactobacillus Acidoph/Bulgaricus (Floranex) 1 tab TID PO Last administered on 09/08/16 12:49; Admin Dose 1 TAB; Start 08/13/16 at 21:00 Metoprolol Tartrate (Lopressor) 12.5 mg BID PO Last administered on 09/08/16 07:58; Admin Dose 12.5 MG; Start 08/13/16 at 21:00 Pregabalin (Lyrica) 50 mg TID PO Last administered on 12/24/16at 12:49; Admin Dose 50 MG; Start 08/13/16 at 21:00 Pyridoxine HCl (Vitamin B6) 100 mg DAILY PO Last administered on 09/08/16at 07: 55; Admin Dose 100 MG; Start 08/14/16 at 09:00 Simethicone (Mylicon) 80 mg Q6H PRN PO INTESTINAL SPASMS/CRAMPING Last administered on 09/05/16at 18:54; Admin Dose 80 MG; Start 08/13/16 at 17:30 Vitamin E (Vitamin E) 400 units DAILY PO Last administered on 09/08/16at 08:06 ; Admin Dose 400 UNITS; Start 08/14/16 at 09:00 Fluoxetine HCl (Prozac) 20 mg DAILY PO Last administered on 09/08/16at 07:56; Admin Dose 20 MG; Start 08/14/16 at 09:00 Miscellaneous Information 1 ea NOTE XX ; Start 08/13/16 at 18:00 Glucose (Glutose) 15 gm Q15M PRN PO DECREASED GLUCOSE; Start 08/13/16 at 18:00 Glucose (Glutose) 22.5 gm Q15M PRN PO DECREASED GLUCOSE; Start 08/13/16 at 18: 00 Dextrose (D50w Syringe) 25 ml Q15M PRN IV DECREASED GLUCOSE Last administered on 09/06/16at 23:55; Admin Dose 25 ML; Start 08/13/16 at 18:00 Dextrose (D50w Syringe) 50 ml Q15M PRN IV DECREASED GLUCOSE; Start 08/13/16 at 18:00 Glucagon (Glucagen) 1 mg Q15M PRN IM DECREASED GLUCOSE; Start 08/13/16 at 18: 00 Glucose (Glutose) 15 gm Q15M PRN BUCCAL DECREASED GLUCOSE; Start 08/13/16 at 18:00 Sodium Hypochlorite (Dakin'S (1/4 Strength)) 1 applic DAILY IRR Last administered on 09/08/16at 07:57; Admin Dose 1 APPLIC; Start 08/13/16 at 20:00 Acetaminophen/ Hydrocodone Bitart ([place] (5/325)) 2 tab Q6H PRN PO MODERATE PAIN LEVEL 4-6 Last administered on 09/06/16at 00:16; Admin Dose 2 TAB; Start 08/14/16 at 13:00 IV Flush (NS 10 ml) 10 ml PRN PRN IV IV PTOTOCOL; Start 08/14/16 at 17:00 Acetylcysteine (Nac) 600 mg BID PO Last administered on 09/08/16at 08:06; Admin Dose 600 MG; Start 08/16/16 at 21:00 Ondansetron HCl (Zofran Inj) 4 mg Q4H PRN IV NAUSEA AND/OR VOMITING; Start 08/16/16 at 12:30 Zolpidem Tartrate (Ambien) 10 mg HS PRN PO INSOMNIA Last administered on at 22:44; Admin Dose 10 MG; Start 08/16/16 at 21:00 Lorazepam (Ativan) 1 mg Q6 PRN PO ANXIETY Last administered on 08/25/16 22:08 ; Admin Dose 1 MG; Start 08/18/16 at 14:30 Diagnostic Test (Pha) (Accucheck) 1 ea 02 XX Last administered on 09/08/16 02 :21; Admin Dose 1 EA; Start 08/20/16 at 02:00 Phenol (Cepastat Lozenge) 1 lozenge Q1H PRN MT DRY MOUTH Last administered on 08/20/16 21:28; Admin Dose 1 LOZENGE; Start 08/20/16 at 20:30 Lorazepam (Ativan) 1 mg HS PRN PO ANXIETY, HELP WITH SLEEP Last administered on 09/05/16at 21:45; Admin Dose 1 MG; Start 08/22/16 at 18:30 Diphenhydramine HCl (Benadryl) 25 mg Q6H PRN PO ITCHING Last administered on at 16:17; Admin Dose 25 MG; Start 08/26/16 at 20:30 Famotidine 20 mg 20 mg DAILY PO Last administered on 09/08/16 07:56; Admin Dose 20 MG; Start 09/03/16 at 09:00 Propofol (Diprivan) 100 ml @ 3.915 mls/ hr Q12H IV Last administered on 11:05; Admin Dose 31.32 MLS/HR; Start 09/06/16 at 19:00 Ferrous Sulfate (Feosol Liquid Cup) 300 mg BID PO Last administered on 07:55; Admin Dose 300 MG; Start 12/22/16 at 21:00 Insulin Glargine 10 unit 10 unit QHS SC Last administered on 09/07/16at 21:47; Admin Dose 10 UNIT; Start 09/07/16 at 21:00 Dextrose (D5W) 1,000 ml @ 50 mls/hr Q20H IV Last administered on 09/08/16at 08 :11; Admin Dose 50 MLS/HR; Start 09/07/16 at 13:00 Heparin Sodium (Porcine) 5000 unit 5,000 unit BID SC Last administered on 09/08at 08:05; Admin Dose 5,000 UNIT; Start 09/07/16 at 21:00 Meropenem/Sodium Chloride (Merrem/NS) 100 ml @ 200 mls/hr Q24H IVPB ; Start at 09:00 Miscellaneous Information (*Rx Drug Level Order Reminder*) VANCO RANDOM LEVEL... ONCE ONCE XX ; Start 09/09/16 at 05:00; Stop 09/09/16 at 05:01 GIUSEPPE BREAUX Sep 08, 2016 14:09
--- NOTE | 2016-09-08 14:09 | PN ---
DATE: 09/08/2016 INFECTIOUS DISEASE PROGRESS NOTE SUBJECTIVE: No acute events overnight. The patient remains sedated, intubated, looks comfortable, afebrile. WBC today 8.1, platelets 170, H and H 8.7 and 27.1. INDWELLINGS: Endotracheal tube, NG tube, right subclavian Perm-A-Cath. ANTIMICROBIALS: 1. Vancomycin. 2. Meropenem. PHYSICAL EXAMINATION: GENERAL: This is a morbidly obese elderly man, who is lying comfortably in bed. HEENT: Head atraumatic, normocephalic. Sclerae anicteric. Buccal mucosa dry. NECK: Obese. Trachea midline. CHEST: Chest rise is symmetrical. Breath sounds diminished to the bases. HEART: S1, S2. ABDOMEN: Obese, soft. Bowel tones hypoactive. EXTREMITIES: With bilateral lower extremities edema. Patrick wrapped below the knees. ASSESSMENT: 1. Acute respiratory failure, status post intubated for surgical procedure, and unable to be extuba abdelrahman. 2. Healthcare-associated pneumonia. 3. Pulmonary edema. 4. Bilateral lower extremities acute on chronic cellulitis, with left toe osteomyelitis. 5. Status post oxacillin-sensitive Staphylococcus aureus septicemia. 6. Acute on chronic kidney disease, on hemodialysis. 7. Chronic atrial fibrillation. PLAN: The patient remains stable, covered with appropriate antimicrobials. Continue the present ca re. Vent support per pulmonary. Await for sputum cultures. Dictated By: JAMEY VAZQUEZ MYSQL DATABASE ADMINISTRATOR for DONAVAN BRITTON MD NI/NTS Conf#: [id number] DID#: [id number]
--- NOTE | 2016-09-08 20:06 | CONS ---
Date/Time of Note Date/Time of Note DATE: 09/08/16 TIME: 20:02 Assessment/Plan Assessment/Plan Problems: (1) Anemia Status: Chronic (2) Hypoxia Status: Chronic Comment: Pt now on vent (3) Fluid overload Comment: Responding to UF with HD will dialyze again in am (4) Pulmonary hypertension Status: Chronic Comment: per pulmonary (5) Obesity Status: Chronic (6) Osteomyelitis of left foot Status: Chronic (7) Acute renal injury Status: Acute Comment: some increase urine vol noted (8) Leg edema, left Status: Chronic Consultation Date/Type/Reason Admit Date/Time Aug 13, 2016 at 16:30 Initial Consult Date 08/13/16 Type of Consultation: Nephrology Referring Provider: KELLEN MEDINA MD 24 HR Interval Summary Subjective hx not possible: pt non-verbal, pt critical status Constitutional: improved Exam/Review of Systems Vital Signs Vitals Vital Signs Date Time Temp Pulse Resp B/P Pulse Ox O2 Delivery O2 Flow Rate FiO2 09/08/16 19:31 67 18 97 60 09/08/16 18:00 103/50 Mechanical Ventilator 09/08/16 16:00 98.9 09/05/16 17:12 6.0 Intake and Output 09/07/16 09/07/16 09/08/16 15:00 23:00 07:00 Intake Total 862.661 ml 709.736 ml 406.60 ml Output Total 1620 ml 875 ml 600 ml Balance -757.339 ml -165.264 ml -193.40 ml Exam Constitutional: alert, oriented Head: normocephalic Eyes: PERRL, nl conjunctiva ENMT: nl external ears & nose Neck: supple Respiratory: clear to auscultation Cardiovascular: nl pulses, regular rate and rhythm Gastrointestinal: soft Genitourinary - Male: other (bennett cath) Results Hct 28% Result Diagram: 09/08/16 0548 09/08/16 0540 Results 24 hrs Laboratory Tests Test 09/07/16 21:08 09/07/16 21:39 09/08/16 02:51 09/08/16 05:40 Bedside Glucose 80 79 86 Anion Gap 17 H Blood Urea Nitrogen 74 H Calcium Level 7.6 L Carbon Dioxide Level 26 Chloride Level 97 Creatinine 1.78 H Glucose Level 74 # Potassium Level 3.6 Sodium Level 136 Test 09/08/16 05:48 09/08/16 07:53 09/08/16 12:26 09/08/16 16:37 Basophils # 0.0 Basophils % 0.4 Blood Morphology Comment Eosinophils # 0.7 H Eosinophils % 9.3 H Hematocrit 27.1 L Hemoglobin 8.7 L Lymphocytes # 0.6 L Lymphocytes % 7.7 L Mean Corpuscular Hemoglobin 24.9 L Mean Corpuscular Hemoglobin Concent 32.3 Mean Corpuscular Volume 77.3 L Mean Platelet Volume 8.2 Monocytes # 0.7 Monocytes % 8.4 Neutrophils # 6.0 Neutrophils % 74.2 Nucleated Red Blood Cells # 0.0 Nucleated Red Blood Cells % 0.0 Platelet Count 170 Red Blood Count 3.50 L Red Cell Distribution Width 22.6 H White Blood Count 8.1 Bedside Glucose 91 98 99 Medications Medications Current Medications Acetaminophen (Tylenol Tab) 650 mg Q6H PRN PO PAIN LEVEL 1-3 OR FEVER; Start 08/13/16 at 17:30 Acetaminophen/ Hydrocodone Bitart ([place] (5/325)) 1 tab Q6H PRN PO MODERATE PAIN LEVEL 4-6 Last administered on 08/30/16at 02:54; Admin Dose 1 TAB; Start 08/13/16 at 17:30 Morphine Sulfate (morphine) 2 mg Q4H PRN IV SEVERE PAIN LEVEL 7-10 Last administered on 09/03/16at 12:28; Admin Dose 2 MG; Start 08/13/16 at 17:30 Docusate Sodium (Colace) 100 mg Q12H PRN PO CONSTIPATION; Start 08/13/16 at 17 :30 Heparin Sodium (Porcine) (Heparin (5000 Units/0.5 ml)) 5,000 unit Q12 SC Last administered on 08/25/16at 21:01; Admin Dose 5,000 UNIT; Start 08/13/16 at 21: 00; Status Future Hold Allopurinol (Zyloprim) 100 mg DAILY PO Last administered on 09/08/16at 07:56; Admin Dose 100 MG; Start 08/14/16 at 09:00 Ascorbic Acid (Vitamin C) 500 mg DAILY PO Last administered on 09/08/16at 07:56 ; Admin Dose 500 MG; Start 08/13/16 at 18:00 Aspirin (Halfprin) 81 mg DAILY PO Last administered on 09/08/16 07:56; Admin Dose 81 MG; Start 08/14/16 at 09:00 Atorvastatin Calcium (Lipitor) 10 mg QHS PO Last administered on 09/07/16 21: 04; Admin Dose 10 MG; Start 08/13/16 at 21:00 Cholecalciferol (Vitamin D) 1,000 unit DAILY PO Last administered on 07:56; Admin Dose 1,000 UNIT; Start 08/14/16 at 09:00 Fish Oil (Fish Oil) 1,000 mg DAILY PO Last administered on 09/08/16 07:55; Admin Dose 1,000 MG; Start 08/14/16 at 09:00 Lactobacillus Acidoph/Bulgaricus (Floranex) 1 tab TID PO Last administered on 09/08/16 12:49; Admin Dose 1 TAB; Start 08/13/16 at 21:00 Metoprolol Tartrate (Lopressor) 12.5 mg BID PO Last administered on 09/08/16 07:58; Admin Dose 12.5 MG; Start 08/13/16 at 21:00 Pregabalin (Lyrica) 50 mg TID PO Last administered on 09/08/16 12:49; Admin Dose 50 MG; Start 08/13/16 at 21:00 Pyridoxine HCl (Vitamin B6) 100 mg DAILY PO Last administered on 09/08/16 07: 55; Admin Dose 100 MG; Start 08/14/16 at 09:00 Simethicone (Mylicon) 80 mg Q6H PRN PO INTESTINAL SPASMS/CRAMPING Last administered on 09/05/16 18:54; Admin Dose 80 MG; Start 08/13/16 at 17:30 Vitamin E (Vitamin E) 400 units DAILY PO Last administered on 09/08/16 08:06 ; Admin Dose 400 UNITS; Start 08/14/16 at 09:00 Fluoxetine HCl (Prozac) 20 mg DAILY PO Last administered on 09/08/16 07:56; Admin Dose 20 MG; Start 08/14/16 at 09:00 Miscellaneous Information 1 ea NOTE XX ; Start 08/13/16 at 18:00 Glucose (Glutose) 15 gm Q15M PRN PO DECREASED GLUCOSE; Start 08/13/16 at 18:00 Glucose (Glutose) 22.5 gm Q15M PRN PO DECREASED GLUCOSE; Start 08/13/16 at 18: 00 Dextrose (D50w Syringe) 25 ml Q15M PRN IV DECREASED GLUCOSE Last administered on 09/06/16at 23:55; Admin Dose 25 ML; Start 08/13/16 at 18:00 Dextrose (D50w Syringe) 50 ml Q15M PRN IV DECREASED GLUCOSE; Start 08/13/16 at 18:00 Glucagon (Glucagen) 1 mg Q15M PRN IM DECREASED GLUCOSE; Start 08/13/16 at 18: 00 Glucose (Glutose) 15 gm Q15M PRN BUCCAL DECREASED GLUCOSE; Start 08/13/16 at 18:00 Sodium Hypochlorite (Dakin'S (1/4 Strength)) 1 applic DAILY IRR Last administered on 09/08/16at 07:57; Admin Dose 1 APPLIC; Start 08/13/16 at 20:00 Acetaminophen/ Hydrocodone Bitart ([place] (5/325)) 2 tab Q6H PRN PO MODERATE PAIN LEVEL 4-6 Last administered on 09/06/16at 00:16; Admin Dose 2 TAB; Start 08/14/16 at 13:00 IV Flush (NS 10 ml) 10 ml PRN PRN IV IV PTOTOCOL; Start 08/14/16 at 17:00 Acetylcysteine (Nac) 600 mg BID PO Last administered on 09/08/16at 08:06; Admin Dose 600 MG; Start 08/16/16 at 21:00 Ondansetron HCl (Zofran Inj) 4 mg Q4H PRN IV NAUSEA AND/OR VOMITING; Start 08/16/16 at 12:30 Zolpidem Tartrate (Ambien) 10 mg HS PRN PO INSOMNIA Last administered on at 22:44; Admin Dose 10 MG; Start 08/16/16 at 21:00 Lorazepam (Ativan) 1 mg Q6 PRN PO ANXIETY Last administered on 08/25/16at 22:08 ; Admin Dose 1 MG; Start 08/18/16 at 14:30 Diagnostic Test (Pha) (Accucheck) 1 ea 02 XX Last administered on 09/08/16at 02 :21; Admin Dose 1 EA; Start 08/20/16 at 02:00 Phenol (Cepastat Lozenge) 1 lozenge Q1H PRN MT DRY MOUTH Last administered on 08/20/16 21:28; Admin Dose 1 LOZENGE; Start 08/20/16 at 20:30 Lorazepam (Ativan) 1 mg HS PRN PO ANXIETY, HELP WITH SLEEP Last administered on 09/05/16at 21:45; Admin Dose 1 MG; Start 08/22/16 at 18:30 Diphenhydramine HCl (Benadryl) 25 mg Q6H PRN PO ITCHING Last administered on 16:17; Admin Dose 25 MG; Start 08/26/16 at 20:30 Famotidine 20 mg 20 mg DAILY PO Last administered on 09/08/16 07:56; Admin Dose 20 MG; Start 09/03/16 at 09:00 Propofol (Diprivan) 100 ml @ 3.915 mls/ hr Q12H IV Last administered on 17:07; Admin Dose 31.32 MLS/HR; Start 09/06/16 at 19:00 Ferrous Sulfate (Feosol Liquid Cup) 300 mg BID PO Last administered on 07:55; Admin Dose 300 MG; Start 09/06/16 at 21:00 Insulin Glargine 10 unit 10 unit QHS SC Last administered on 09/07/16at 21:47; Admin Dose 10 UNIT; Start 09/07/16 at 21:00 Dextrose (D5W) 1,000 ml @ 50 mls/hr Q20H IV Last administered on 09/08/16 08 :11; Admin Dose 50 MLS/HR; Start 09/07/16 at 13:00 Heparin Sodium (Porcine) 5000 unit 5,000 unit BID SC Last administered on 09/08at 08:05; Admin Dose 5,000 UNIT; Start 09/07/16 at 21:00 Meropenem/Sodium Chloride (Merrem/NS) 100 ml @ 200 mls/hr Q24H IVPB ; Start at 09:00 Miscellaneous Information (*Rx Drug Level Order Reminder*) VANCO RANDOM LEVEL... ONCE ONCE XX ; Start 09/09/16 at 05:00; Stop 09/09/16 at 05:01 ALONSO MARTINEZ MD Sep 08, 2016 20:06
[2016-09-08] MEDS: ATORVASTATIN 10 MG TAB PO SCH (20:16)
[2016-09-08] MEDS: INSULIN GLARGINE [LANtus] 3 ML PEN SC SCH (20:24)
[2016-09-09] VITALS (67 sets, daily range): BP systolic 86–172; BP diastolic 16–109; PULSE 66–96; RESP 15–33
[2016-09-09] MEDS: ALBUTEROL HFA 8 GM INHALER INH SCH ×5 (00:37→20:26)
[2016-09-09] MEDS: IPRATROPIUM (HFA) 12.9 GM INHALER INH SCH ×5 (00:37→20:26)
[2016-09-09] MEDS ORDERED: FUROSEMIDE 40 MG INJ IV ONE (01:00)
[2016-09-09] MEDS: PROPOFOL 100 ML IV SCH ×10 (01:57→22:41)
[2016-09-09] MEDS: ACCUCHECK XX SCH (02:00)
[2016-09-09] MEDS ORDERED: NORepinephrine 8MG/250 ML (PMX 250 ML IV SCH (02:00)
--- NOTE | 2016-09-09 02:28 | RADRPT ---
PROCEDURE: XR Chest. CLINICAL INDICATION: desat po2 49 TECHNIQUE: Single frontal chest x-ray. COMPARISON: 09/07/2016 FINDINGS: The tip of the endotracheal tube is approximately 7 cm above the nithin. The nasogastric tube is in the stomach with the tip not visualized on the radiograph. ECG leads are projected over the chest. Right central venous catheter tip in mid right atrium. Enlargement of the cardiac silhouette is a gain seen. There is pulmonary vascular congestion appears increased compared to previous study. Th ere is increased density in the right mid and lower lung which could represent pulmonary edema or ot her infiltrates increased compared to previous study. There is increased density in the left lower l douglas which could represent pulmonary edema decreased compared to the previous study. There is a poss ible small right pleural effusion appearing since the previous study. The patient is mildly rotated to the right. IMPRESSION: Consistent with congestive heart failure and pulmonary edema overall increased compared to previous study. Possible small right pleural effusion appearing since previous study. Please see above. RPTAT: HJES .Cameron Dixon MD, MD Date Time Electronically viewed and signed by .Cameron Dixon MD, MD on 09/09/2016 02:28 .S/
[2016-09-09] MEDS ORDERED: PROPOFOL 100 ML ONE (02:35)
[2016-09-09] MEDS: DEXTROSE 5% 1,000 ML IV SCH ×2 (04:07→23:41)
[2016-09-09 05:45] LABS: EOSINOPHILS # 0.3 10^3/ul (0.0-0.5); EOSINOPHILS % 2.5 % (0.0-7.0); HEMATOCRIT 29.3 % (42.0-52.0); HEMOGLOBIN 9.7 g/dl (14.0-18.0); LYMPHOCYTES # 0.4 10^3/ul (0.8-2.9); LYMPHOCYTES % 3.1 % (15.0-51.0); MEAN CORPUSCULAR HEMOGLOBIN 25.3 pg (29.0-33.0); MEAN CORPUSCULAR HGB CONC 33.1 g/dl (32.0-37.0); MEAN CORPUSCULAR VOLUME 76.6 fl (82.0-101.0); MEAN PLATELET VOLUME 8.1 fl (7.4-10.4); MONOCYTE # 0.7 10^3/ul (0.3-0.9); MONOCYTES % 5.1 % (0.0-11.0); NEUTROPHIL # 12.1 10^3/ul (1.6-7.5); NEUTROPHILS % 89.3 % (39.0-77.0); PLATELET COUNT 172 10^3/UL (140-440); RED BLOOD COUNT 3.82 10^6/ul (4.70-6.10); RED CELL DISTRIBUTION WIDTH 21.4 % (11.5-14.5); UNCORRECTED WBC 13.5 10^3/ul (4.8-10.8); WHITE BLOOD COUNT 13.5 10^3/ul (4.8-10.8)
[2016-09-09 05:55] LABS: CONDITION 1; LH ANALYZER COMMENTS 1
[2016-09-09 06:01] LABS: POTASSIUM 3.1 mmol/L (3.5-5.1)
[2016-09-09 06:04] LABS: CREATININE 1.68 mg/dl (0.61-1.24)
[2016-09-09 06:05] LABS: CALCIUM 7.6 mg/dl (8.4-10.2)
[2016-09-09 06:12] LABS: PREALBUMIN 6.6 mg/dl (17.6-36.0)
[2016-09-09] MEDS: INSULIN ASPART [NOVOLOG] 3 ML PEN SC SCH ×7 (07:35→21:00)
[2016-09-09] MEDS ORDERED: POTASSIUM CHLORIDE 20 MEQ in SOD CHLORIDE 0.9% 100 ML IVPB ONE (08:00)
--- NOTE | 2016-09-09 08:12 | RADRPT ---
PROCEDURE: CHEST 1VW CLINICAL INDICATION: Shortness of breath TECHNIQUE: Single frontal view of the chest was obtained COMPARISON: w FINDINGS: Stable endotracheal tube, nasogastric tube, and dialysis catheter. The cardiac size is mildly enlarged, stable. Aortic vascular calcifications are demonstrated. There is stable mild to moderate pulmonary vascular congestion. The lungs are otherwise clear. No consolidation, effusion, or pneumothorax. Mild degenerative changes of the visualized osseous structures are visualized. IMPRESSION: 1. Stable cardiomegaly withmild pulmonary vascular congestion and interstitial edema. 2. Atherosclerosis. 3. Stable and tubes. RPTAT:PP .Gary Melendez MD, MD Date Time Electronically viewed and signed by .Gary Melendez MD, on 09/09/2016 08:12 .V/
[2016-09-09] MEDS: FERROUS SULFATE 60 MG/ML 5ML CUP PO SCH ×2 (08:30→21:16)
[2016-09-09] MEDS: FLUOXETINE 20 MG CAP PO SCH (08:30)
[2016-09-09] MEDS: PYRIDOXINE 50 MG TAB PO SCH (08:30)
[2016-09-09] MEDS: ASCORBIC ACID 500 MG TAB PO SCH (08:30)
[2016-09-09] MEDS: CALCIUM CARBONATE 500 MG CHEW TAB PO SCH ×3 (08:30→18:17)
[2016-09-09] MEDS: ALLOPURINOL 100 MG TAB PO SCH (08:31)
[2016-09-09] MEDS: SODIUM HYPOCHLORITE 0.125% 473 ML BTL IRR SCH (08:31)
[2016-09-09] MEDS: FISH OIL 1,000 MG CAP PO SCH (08:31)
[2016-09-09] MEDS: CHOLECALCIFEROL 1,000 UNIT TAB PO SCH (08:31)
[2016-09-09] MEDS: LACTOBACILLUS CHEW TAB PO SCH ×3 (08:31→21:17)
[2016-09-09] MEDS: FAMOTIDINE 20 MG TAB PO SCH (08:31)
[2016-09-09] MEDS: ASPIRIN (EC) 81 MG TAB PO SCH (08:31)
[2016-09-09] MEDS: ACETYLCYSTEINE 600 MG CAP PO SCH ×2 (08:31→21:19)
[2016-09-09] MEDS: VITAMIN E 400 UNITS CAP PO SCH (08:32)
[2016-09-09] MEDS: MEROPENEM 500 MG in SOD CHLORIDE 0.9% 100 ML IVPB SCH (08:32)
[2016-09-09] MEDS: HEPARIN 5,000 UNIT/0.5 ML SYG SC SCH ×2 (08:34→21:27)
[2016-09-09] MEDS: PREGABALIN 25 MG CAP PO SCH ×3 (08:54→21:15)
[2016-09-09] MEDS: METOPROLOL 25 MG TAB PO SCH ×2 (08:54→21:23)
[2016-09-09 09:24] LABS: Allen Test ACCEPTAB; Arterial COHb 0.3 % (0.0-3.0); Arterial Fraction of Oxyhgb 98.3 % (93.0-99.0); Arterial HCO3 23.3 mmol/L (22.0-26.0); Arterial MetHb 0.5 % (0.0-1.5); Arterial Total Hemglobin 9.2 g/dl (12.0-18.0); MODE VENT - AC
[2016-09-09] MEDS ORDERED: VANCOMYCIN 2 GM in SOD CHLORIDE 0.9% 500 ML IVPB ONE (11:00)
--- NOTE | 2016-09-09 13:57 | PN ---
Date/Time of Note Date/Time of Note DATE: 09/09/16 TIME: 13:53 Assessment/Plan VTE Prophylaxis VTE Prophylaxis Intervention: heparin Lines/Catheters IV Catheter Type (from Nrs): PICC Line Central line still needed: Yes Urinary Cath still in place: Yes Reason Cath still needed: other (indicate) (monitor I&O) Assessment/Plan Chief Complaint/Hosp Course Assessment and plan 1. Acute respiratory failure. Patient remains intubated in ICU. Noted with moderate amount of fluid on right midlung. Check chest ultrasound. Plan for thoracentesis should patient have moderate amount of fluid. Continue with drilling supervisor recommendations 1. Left great toe osteomyelitis. Continue antibiotics as per infectious disease. Status post evaluation by vascular surgery. Continue vascular surgeon recommendations 2. Acute on chronic respiratory failure, hypoxic and hypercapnic. [employer]ra[employer] Supervisor is following. After permacath placement on 09/06/2016, patient was difficult to wean off ventilator. Continue monitoring in ICU. Follow-up with drilling supervisor recommendations 3. Pulmonary hypertension. Continue supplemental oxygen. 4. Acute on chronic kidney disease. Medications to be renally dosed. Pool Hand following. Plan for hemodialysis 5. Congestive heart failure exacerbation. Acute on chronic diastolic dysfunction. 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 6. Type 2 diabetes mellitus. Hemoglobin A1c 5.8. Continue carbohydrate controlled diet. Continue sliding scale insulin. 7. Essential hypertension. Continue antihypertensives. Adjust as needed 8. History of atrial fibrillation. Currently in sinus rhythm. Continue telemetry monitoring 9. Dyslipidemia. Continue statins. 10. Gout. Continue allopurinol. 11. Major depression. Continue selective serotonin reuptake inhibitors. 12. Morbid obesity with BMI of 42.5 . Weight reduction advised. 13. Fluid, electrolytes, and nutrition. Renal, carbohydrate controlled diet. 14. Deep vein thrombosis prophylaxis. Subcutaneous heparin. 15. Gastrointestinal prophylaxis. Histamine 2 blockers. Disposition and plan: Continue on dialysis. Check chest ultrasound. May need thoracentesis. We'll follow-up Discussed plan of care with Current care time: 30 minutes Problems: Subjective 24 Hr Interval Summary Free Text/Dictation remains intubated and sedated Exam/Review of Systems Vital Signs Vitals Vital Signs Date Time Temp Pulse Resp B/P Pulse Ox O2 Delivery O2 Flow Rate FiO2 09/09/16 13:00 74 28 104/39 100 09/09/16 12:00 98.5 09/09/16 06:00 Mechanical Ventilator 09/09/16 04:52 100 09/05/16 17:12 6.0 Intake and Output 09/08/16 09/08/16 09/09/16 15:00 23:00 07:00 Intake Total 1274.24 ml 960.54 ml 1028.30 ml Output Total 3320 ml 545 ml 495 ml Balance -2045.76 ml 415.54 ml 533.30 ml Exam General: Morbidly obese.. Intubated and sedated Eyes: pupils equal round, Anicteric sclera Neck: Supple nontender, no JVD Cardiac: S1, S2 auscultated, regular rhythm and rate Pulmonary: Diminished at lung bases more notable on right lower lung base GI: Abdomen soft nontender nondistended, bowel sounds active Extremities: Edema bilateral lower extremities +2 to +3 Skin: Brownish discoloration of bilateral lower extremities Neurologic: Intubated and sedated Results Result Diagram: 09/09/16 0500 09/09/16 0500 Results 24 hrs Laboratory Tests Test 09/08/16 16:37 09/08/16 20:21 09/09/16 05:00 09/09/16 07:00 Bedside Glucose 99 107 Anion Gap 14 Basophils # 0.0 Basophils % 0.0 Blood Morphology Comment Blood Urea Nitrogen 55 H Calcium Level 7.6 L Carbon Dioxide Level 27 Chloride Level 98 Creatinine 1.68 H Eosinophils # 0.3 Eosinophils % 2.5 Glucose Level 85 Hematocrit 29.3 L Hemoglobin 9.7 L Lymphocytes # 0.4 L Lymphocytes % 3.1 L Mean Corpuscular Hemoglobin 25.3 L Mean Corpuscular Hemoglobin Concent 33.1 Mean Corpuscular Volume 76.6 L Mean Platelet Volume 8.1 Monocytes # 0.7 Monocytes % 5.1 Neutrophils # 12.1 H Neutrophils % 89.3 H Nucleated Red Blood Cells # 0.0 Nucleated Red Blood Cells % 0.0 Platelet Count 172 Potassium Level 3.1 L Prealbumin 6.6 L Random Vancomycin Level 12.0 Red Blood Count 3.82 L Red Cell Distribution Width 21.4 H Sodium Level 136 White Blood Count 13.5 #H Arterial Blood HCO3 23.3 Arterial Blood Base Excess 2.0 Arterial Blood Oxygen Saturation 99.1 H Khoi Test ACCEPTAB Arterial Blood Gas Puncture Site Right Radial Arterial Blood Carboxyhemoglobin 0.3 Arterial Blood Date Drawn 09/09/2016 8:45:05 AM Arterial Blood Methemoglobin 0.5 Arterial Blood pCO2 (Temp correct) 25.2 L Arterial Blood pH (Temp corrected) 7.584 *H Arterial Blood pO2 (Temp corrected) 311.8 H Blood Gas A-a O2 Differential 376.0 H Blood Gas Actual Respiration Rate 28 Blood Gas Critical Value Read Back RKARTIK Blood Gas Low PEEP Setting 15.0 Blood Gas Modality VENT - AC Blood Gas Notified Time 09/09/2016 9:23:46 AM Blood Gas Notified Whom CW Blood Gas Respiration Rate 28.0 Blood Gas Specimen Source Blood arterial Blood Gas Temperature 37.0 FiO2 100.0 Oxyhemoglobin Percent 98.3 Total Hemoglobin 9.2 L Test 09/09/16 08:10 09/09/16 12:36 Bedside Glucose 91 134 Medications Medications Current Medications Acetaminophen (Tylenol Tab) 650 mg Q6H PRN PO PAIN LEVEL 1-3 OR FEVER; Start 08/13/16 at 17:30 Acetaminophen/ Hydrocodone Bitart ([place] (5/325)) 1 tab Q6H PRN PO MODERATE PAIN LEVEL 4-6 Last administered on 08/30/16at 02:54; Admin Dose 1 TAB; Start 08/13/16 at 17:30 Morphine Sulfate (morphine) 2 mg Q4H PRN IV SEVERE PAIN LEVEL 7-10 Last administered on 09/03/16at 12:28; Admin Dose 2 MG; Start 08/13/16 at 17:30 Docusate Sodium (Colace) 100 mg Q12H PRN PO CONSTIPATION; Start 08/13/16 at 17 :30 Heparin Sodium (Porcine) (Heparin (5000 Units/0.5 ml)) 5,000 unit Q12 SC Last administered on 08/25/16at 21:01; Admin Dose 5,000 UNIT; Start 08/13/16 at 21: 00; Status Future Hold Allopurinol (Zyloprim) 100 mg DAILY PO Last administered on 09/09/16at 08:31; Admin Dose 100 MG; Start 08/14/16 at 09:00 Ascorbic Acid (Vitamin C) 500 mg DAILY PO Last administered on 09/09/16 08:30 ; Admin Dose 500 MG; Start 08/13/16 at 18:00 Aspirin (Halfprin) 81 mg DAILY PO Last administered on 09/09/16 08:31; Admin Dose 81 MG; Start 08/14/16 at 09:00 Atorvastatin Calcium (Lipitor) 10 mg QHS PO Last administered on 09/08/16 20: 16; Admin Dose 10 MG; Start 08/13/16 at 21:00 Cholecalciferol (Vitamin D) 1,000 unit DAILY PO Last administered on 08:31; Admin Dose 1,000 UNIT; Start 08/14/16 at 09:00 Fish Oil (Fish Oil) 1,000 mg DAILY PO Last administered on 09/09/16 08:31; Admin Dose 1,000 MG; Start 08/14/16 at 09:00 Lactobacillus Acidoph/Bulgaricus (Floranex) 1 tab TID PO Last administered on 09/09/16 08:31; Admin Dose 1 TAB; Start 08/13/16 at 21:00 Metoprolol Tartrate (Lopressor) 12.5 mg BID PO Last administered on 09/08/16 20:17; Admin Dose 12.5 MG; Start 08/13/16 at 21:00 Pregabalin (Lyrica) 50 mg TID PO Last administered on 09/09/16 08:54; Admin Dose 50 MG; Start 08/13/16 at 21:00 Pyridoxine HCl (Vitamin B6) 100 mg DAILY PO Last administered on 09/09/16 08: 30; Admin Dose 100 MG; Start 08/14/16 at 09:00 Simethicone (Mylicon) 80 mg Q6H PRN PO INTESTINAL SPASMS/CRAMPING Last administered on 09/05/16 18:54; Admin Dose 80 MG; Start 08/13/16 at 17:30 Vitamin E (Vitamin E) 400 units DAILY PO Last administered on 09/09/16 08:32 ; Admin Dose 400 UNITS; Start 08/14/16 at 09:00 Fluoxetine HCl (Prozac) 20 mg DAILY PO Last administered on 09/09/16 08:30; Admin Dose 20 MG; Start 08/14/16 at 09:00 Miscellaneous Information 1 ea NOTE XX ; Start 08/13/16 at 18:00 Glucose (Glutose) 15 gm Q15M PRN PO DECREASED GLUCOSE; Start 08/13/16 at 18:00 Glucose (Glutose) 22.5 gm Q15M PRN PO DECREASED GLUCOSE; Start 08/13/16 at 18: 00 Dextrose (D50w Syringe) 25 ml Q15M PRN IV DECREASED GLUCOSE Last administered on 09/06/16at 23:55; Admin Dose 25 ML; Start 08/13/16 at 18:00 Dextrose (D50w Syringe) 50 ml Q15M PRN IV DECREASED GLUCOSE; Start 08/13/16 at 18:00 Glucagon (Glucagen) 1 mg Q15M PRN IM DECREASED GLUCOSE; Start 08/13/16 at 18: 00 Glucose (Glutose) 15 gm Q15M PRN BUCCAL DECREASED GLUCOSE; Start 08/13/16 at 18:00 Sodium Hypochlorite (Dakin'S (1/4 Strength)) 1 applic DAILY IRR Last administered on 09/09/16at 08:31; Admin Dose 1 APPLIC; Start 08/13/16 at 20:00 Acetaminophen/ Hydrocodone Bitart ([place] (5/325)) 2 tab Q6H PRN PO MODERATE PAIN LEVEL 4-6 Last administered on 09/06/16at 00:16; Admin Dose 2 TAB; Start 08/14/16 at 13:00 IV Flush (NS 10 ml) 10 ml PRN PRN IV IV PTOTOCOL; Start 08/14/16 at 17:00 Acetylcysteine (Nac) 600 mg BID PO Last administered on 09/09/16at 08:31; Admin Dose 600 MG; Start 08/16/16 at 21:00 Ondansetron HCl (Zofran Inj) 4 mg Q4H PRN IV NAUSEA AND/OR VOMITING; Start 08/16/16 at 12:30 Zolpidem Tartrate (Ambien) 10 mg HS PRN PO INSOMNIA Last administered on at 22:44; Admin Dose 10 MG; Start 08/16/16 at 21:00 Lorazepam (Ativan) 1 mg Q6 PRN PO ANXIETY Last administered on 08/25/16at 22:08 ; Admin Dose 1 MG; Start 08/18/16 at 14:30 Diagnostic Test (Pha) (Accucheck) 1 ea 02 XX Last administered on 09/09/16at 02 :00; Admin Dose 1 EA; Start 08/20/16 at 02:00 Phenol (Cepastat Lozenge) 1 lozenge Q1H PRN MT DRY MOUTH Last administered on 08/20/16 21:28; Admin Dose 1 LOZENGE; Start 08/20/16 at 20:30 Lorazepam (Ativan) 1 mg HS PRN PO ANXIETY, HELP WITH SLEEP Last administered on 09/05/16at 21:45; Admin Dose 1 MG; Start 08/22/16 at 18:30 Diphenhydramine HCl (Benadryl) 25 mg Q6H PRN PO ITCHING Last administered on 16:17; Admin Dose 25 MG; Start 08/26/16 at 20:30 Famotidine (Pepcid) 20 mg DAILY PO Last administered on 09/09/16 08:31; Admin Dose 20 MG; Start 09/03/16 at 09:00 Ferrous Sulfate (Feosol Liquid Cup) 300 mg BID PO Last administered on 08:30; Admin Dose 300 MG; Start 09/06/16 at 21:00 Insulin Glargine 10 unit 10 unit QHS SC Last administered on 09/08/16 20:24; Admin Dose 10 UNIT; Start 09/07/16 at 21:00 Dextrose (D5W) 1,000 ml @ 50 mls/hr Q20H IV Last administered on 09/09/16 04 :07; Admin Dose 50 MLS/HR; Start 09/07/16 at 13:00 Heparin Sodium (Porcine) 5000 unit 5,000 unit BID SC Last administered on 09/09 08:34; Admin Dose 5,000 UNIT; Start 09/07/16 at 21:00 Meropenem 500 mg/ Sodium Chloride 100 ml @ 200 mls/hr Q24H IVPB Last administered on 09/09/16 08:32; Admin Dose 200 MLS/HR; Start 09/09/16 at 09: 00 Norepinephrine 250 ml @ 1.875 mls/ hr TITRATE IV ; Start 09/09/16 at 02:00 Norepinephrine 16 mg/Dextrose 500 ml @ 1.87 mls/hr TITRATE IV ; Start at 08:00 Propofol 100 ml @ 3.915 mls/ hr Q12H IV Last administered on 09/09/16 09:25 ; Admin Dose 39.15 MLS/HR; Start 09/09/16 at 02:30 Vancomycin HCl/ Sodium Chloride (Vancocin/NS) 500 ml @ 125 mls/hr ONCE ONCE IVPB Last administered on 09/09/16at 11:00; Admin Dose 125 MLS/HR; Start 09/09 at 11:00; Stop 09/09/16 at 14:59 Lorazepam (Ativan) 2 mg Q4H PRN IV anxiety; Start 09/09/16 at 10:30 GIUSEPPE BREAUX Sep 09, 2016 13:57
--- NOTE | 2016-09-09 14:30 | RADRPT ---
PROCEDURE: US bilateral chest. CLINICAL INDICATION: Pleural effusion TECHNIQUE: Multiple real-time images were acquired of the patient's chest utilizing a high resolut ion transducer. COMPARISON: Recent x-ray FINDINGS: There are small bilateral pleural effusions. IMPRESSION: Small bilateral pleural effusions. RPTAT: AA .Stephen Cardona MD, MD Date Time Electronically viewed and signed by .Stephen Cardona MD, on 09/09/2016 14:29 .S/
--- NOTE | 2016-09-09 15:48 | CONS ---
Date/Time of Note Date/Time of Note DATE: 09/09/16 TIME: 15:41 Assessment/Plan Assessment/Plan Problems: (1) Leg edema, right Status: Chronic (2) Acute renal injury Status: Acute Comment: Urine output remains low tho creat is improving (dialysis) (3) Fluid overload Status: Chronic (4) Pulmonary hypertension Status: Chronic (5) Obesity Status: Chronic (6) Osteomyelitis of left foot Status: Chronic Comment: Pt on AB Rx per ID (7) Anemia Status: Chronic Comment: Hct stable, will observe Additional Assessment/Plan May have to continue HD for Ultrafilltration Consultation Date/Type/Reason Admit Date/Time Aug 13, 2016 at 16:30 Initial Consult Date 08/13/16 Type of Consultation: Nephrology Referring Provider: KELLEN MEDINA MD 24 HR Interval Summary Subjective hx not possible: pt non-verbal, other (sedated) Constitutional: improved, other (vent dependant) Exam/Review of Systems Vital Signs Vitals Vital Signs Date Time Temp Pulse Resp B/P Pulse Ox O2 Delivery O2 Flow Rate FiO2 09/09/16 13:00 74 28 104/39 100 09/09/16 12:00 98.5 09/09/16 06:00 Mechanical Ventilator 09/09/16 04:52 100 09/05/16 17:12 6.0 Intake and Output 09/08/16 09/08/16 09/09/16 15:00 23:00 07:00 Intake Total 1274.24 ml 960.54 ml 1028.30 ml Output Total 3320 ml 545 ml 495 ml Balance -2045.76 ml 415.54 ml 533.30 ml Exam Constitutional: non-verbal Psych: no complaints Head: normocephalic Eyes: PERRL, nl conjunctiva Neck: supple Respiratory: crackles/rales Cardiovascular: regular rate and rhythm Gastrointestinal: other (obese), soft Genitourinary - Male: nl penis, other (Higgins n place) Musculoskeletal: swelling Extremities: normal pulses 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: ASSISTANT ADMINISTRATOR 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 Skin: other (ch dermatitis both lower legs) Additional Comments SCreat is down, K 3.[address] Eff Results Result Diagram: 09/09/16 0500 09/09/16 0500 Results 24 hrs Laboratory Tests Test 09/08/16 16:37 09/08/16 20:21 09/09/16 05:00 09/09/16 07:00 Bedside Glucose 99 107 Anion Gap 14 Basophils # 0.0 Basophils % 0.0 Blood Morphology Comment Blood Urea Nitrogen 55 H Calcium Level 7.6 L Carbon Dioxide Level 27 Chloride Level 98 Creatinine 1.68 H Eosinophils # 0.3 Eosinophils % 2.5 Glucose Level 85 Hematocrit 29.3 L Hemoglobin 9.7 L Lymphocytes # 0.4 L Lymphocytes % 3.1 L Mean Corpuscular Hemoglobin 25.3 L Mean Corpuscular Hemoglobin Concent 33.1 Mean Corpuscular Volume 76.6 L Mean Platelet Volume 8.1 Monocytes # 0.7 Monocytes % 5.1 Neutrophils # 12.1 H Neutrophils % 89.3 H Nucleated Red Blood Cells # 0.0 Nucleated Red Blood Cells % 0.0 Platelet Count 172 Potassium Level 3.1 L Prealbumin 6.6 L Random Vancomycin Level 12.0 Red Blood Count 3.82 L Red Cell Distribution Width 21.4 H Sodium Level 136 White Blood Count 13.5 #H Arterial Blood HCO3 23.3 Arterial Blood Base Excess 2.0 Arterial Blood Oxygen Saturation 99.1 H Khoi Test ACCEPTAB Arterial Blood Gas Puncture Site Right Radial Arterial Blood Carboxyhemoglobin 0.3 Arterial Blood Date Drawn 09/09/2016 8:45:05 AM Arterial Blood Methemoglobin 0.5 Arterial Blood pCO2 (Temp correct) 25.2 L Arterial Blood pH (Temp corrected) 7.584 *H Arterial Blood pO2 (Temp corrected) 311.8 H Blood Gas A-a O2 Differential 376.0 H Blood Gas Actual Respiration Rate 28 Blood Gas Critical Value Read Back KENRICK Blood Gas Low PEEP Setting 15.0 Blood Gas Modality VENT - AC Blood Gas Notified Time 09/09/2016 9:23:46 AM Blood Gas Notified Whom CW Blood Gas Respiration Rate 28.0 Blood Gas Specimen Source Blood arterial Blood Gas Temperature 37.0 FiO2 100.0 Oxyhemoglobin Percent 98.3 Total Hemoglobin 9.2 L Test 09/09/16 08:10 09/09/16 12:36 Bedside Glucose 91 134 Medications Medications Current Medications Acetaminophen (Tylenol Tab) 650 mg Q6H PRN PO PAIN LEVEL 1-3 OR FEVER; Start 08/13/16 at 17:30 Acetaminophen/ Hydrocodone Bitart ([place] (5/325)) 1 tab Q6H PRN PO MODERATE PAIN LEVEL 4-6 Last administered on 08/30/16 02:54; Admin Dose 1 TAB; Start 08/13/16 at 17:30 Morphine Sulfate (morphine) 2 mg Q4H PRN IV SEVERE PAIN LEVEL 7-10 Last administered on 09/03/16 12:28; Admin Dose 2 MG; Start 08/13/16 at 17:30 Docusate Sodium (Colace) 100 mg Q12H PRN PO CONSTIPATION; Start 08/13/16 at 17 :30 Heparin Sodium (Porcine) (Heparin (5000 Units/0.5 ml)) 5,000 unit Q12 SC Last administered on 08/25/16 21:01; Admin Dose 5,000 UNIT; Start 08/13/16 at 21: 00; Status Future Hold Allopurinol (Zyloprim) 100 mg DAILY PO Last administered on 09/09/16 08:31; Admin Dose 100 MG; Start 08/14/16 at 09:00 Ascorbic Acid (Vitamin C) 500 mg DAILY PO Last administered on 09/09/16 08:30 ; Admin Dose 500 MG; Start 08/13/16 at 18:00 Aspirin (Halfprin) 81 mg DAILY PO Last administered on 09/09/16 08:31; Admin Dose 81 MG; Start 08/14/16 at 09:00 Atorvastatin Calcium (Lipitor) 10 mg QHS PO Last administered on 09/08/16 20: 16; Admin Dose 10 MG; Start 08/13/16 at 21:00 Cholecalciferol (Vitamin D) 1,000 unit DAILY PO Last administered on 08:31; Admin Dose 1,000 UNIT; Start 08/14/16 at 09:00 Fish Oil (Fish Oil) 1,000 mg DAILY PO Last administered on 09/09/16 08:31; Admin Dose 1,000 MG; Start 08/14/16 at 09:00 Lactobacillus Acidoph/Bulgaricus (Floranex) 1 tab TID PO Last administered on 09/09/16 14:05; Admin Dose 1 TAB; Start 08/13/16 at 21:00 Metoprolol Tartrate (Lopressor) 12.5 mg BID PO Last administered on 09/08/16 20:17; Admin Dose 12.5 MG; Start 11/28/16 at 21:00 Pregabalin (Lyrica) 50 mg TID PO Last administered on 09/09/16 08:54; Admin Dose 50 MG; Start 08/13/16 at 21:00 Pyridoxine HCl (Vitamin B6) 100 mg DAILY PO Last administered on 09/09/16 08: 30; Admin Dose 100 MG; Start 08/14/16 at 09:00 Simethicone (Mylicon) 80 mg Q6H PRN PO INTESTINAL SPASMS/CRAMPING Last administered on 09/05/16at 18:54; Admin Dose 80 MG; Start 08/13/16 at 17:30 Vitamin E (Vitamin E) 400 units DAILY PO Last administered on 09/09/16 08:32 ; Admin Dose 400 UNITS; Start 08/14/16 at 09:00 Fluoxetine HCl (Prozac) 20 mg DAILY PO Last administered on 09/09/16 08:30; Admin Dose 20 MG; Start 08/14/16 at 09:00 Miscellaneous Information 1 ea NOTE XX ; Start 08/13/16 at 18:00 Glucose (Glutose) 15 gm Q15M PRN PO DECREASED GLUCOSE; Start 08/13/16 at 18:00 Glucose (Glutose) 22.5 gm Q15M PRN PO DECREASED GLUCOSE; Start 08/13/16 at 18: 00 Dextrose (D50w Syringe) 25 ml Q15M PRN IV DECREASED GLUCOSE Last administered on 09/06/16at 23:55; Admin Dose 25 ML; Start 08/13/16 at 18:00 Dextrose (D50w Syringe) 50 ml Q15M PRN IV DECREASED GLUCOSE; Start 08/13/16 at 18:00 Glucagon (Glucagen) 1 mg Q15M PRN IM DECREASED GLUCOSE; Start 08/13/16 at 18: 00 Glucose (Glutose) 15 gm Q15M PRN BUCCAL DECREASED GLUCOSE; Start 08/13/16 at 18:00 Sodium Hypochlorite (Dakin'S (1/4 Strength)) 1 applic DAILY IRR Last administered on 09/09/16at 08:31; Admin Dose 1 APPLIC; Start 08/13/16 at 20:00 Acetaminophen/ Hydrocodone Bitart ([place] (5/325)) 2 tab Q6H PRN PO MODERATE PAIN LEVEL 4-6 Last administered on 09/06/16at 00:16; Admin Dose 2 TAB; Start 08/14/16 at 13:00 IV Flush (NS 10 ml) 10 ml PRN PRN IV IV PTOTOCOL; Start 08/14/16 at 17:00 Acetylcysteine (Nac) 600 mg BID PO Last administered on 09/09/16at 08:31; Admin Dose 600 MG; Start 08/16/16 at 21:00 Ondansetron HCl (Zofran Inj) 4 mg Q4H PRN IV NAUSEA AND/OR VOMITING; Start 08/16/16 at 12:30 Zolpidem Tartrate (Ambien) 10 mg HS PRN PO INSOMNIA Last administered on at 22:44; Admin Dose 10 MG; Start 08/16/16 at 21:00 Lorazepam (Ativan) 1 mg Q6 PRN PO ANXIETY Last administered on 08/25/16at 22:08 ; Admin Dose 1 MG; Start 08/18/16 at 14:30 Diagnostic Test (Pha) (Accucheck) 1 ea 02 XX Last administered on 09/09/16at 02 :00; Admin Dose 1 EA; Start 08/20/16 at 02:00 Phenol (Cepastat Lozenge) 1 lozenge Q1H PRN MT DRY MOUTH Last administered on 08/20/16at 21:28; Admin Dose 1 LOZENGE; Start 08/20/16 at 20:30 Lorazepam (Ativan) 1 mg HS PRN PO ANXIETY, HELP WITH SLEEP Last administered on 09/05/16at 21:45; Admin Dose 1 MG; Start 08/22/16 at 18:30 Diphenhydramine HCl (Benadryl) 25 mg Q6H PRN PO ITCHING Last administered on at 16:17; Admin Dose 25 MG; Start 08/26/16 at 20:30 Famotidine (Pepcid) 20 mg DAILY PO Last administered on 09/09/16 08:31; Admin Dose 20 MG; Start 09/03/16 at 09:00 Ferrous Sulfate (Feosol Liquid Cup) 300 mg BID PO Last administered on 08:30; Admin Dose 300 MG; Start 09/06/16 at 21:00 Insulin Glargine 10 unit 10 unit QHS SC Last administered on 09/08/16 20:24; Admin Dose 10 UNIT; Start 09/07/16 at 21:00 Dextrose (D5W) 1,000 ml @ 50 mls/hr Q20H IV Last administered on 09/09/16at 04 :07; Admin Dose 50 MLS/HR; Start 09/07/16 at 13:00 Heparin Sodium (Porcine) 5000 unit 5,000 unit BID SC Last administered on 09/09at 08:34; Admin Dose 5,000 UNIT; Start 09/07/16 at 21:00 Meropenem 500 mg/ Sodium Chloride 100 ml @ 200 mls/hr Q24H IVPB Last administered on 09/09/16at 08:32; Admin Dose 200 MLS/HR; Start 09/09/16 at 09: 00 Norepinephrine 250 ml @ 1.875 mls/ hr TITRATE IV ; Start 09/09/16 at 02:00 Norepinephrine 16 mg/Dextrose 500 ml @ 1.87 mls/hr TITRATE IV ; Start at 08:00 Propofol (Diprivan) 100 ml @ 3.915 mls/ hr Q12H IV Last administered on at 12:00; Admin Dose 31.32 MLS/HR; Start 09/09/16 at 02:30 Lorazepam (Ativan) 2 mg Q4H PRN IV anxiety; Start 09/09/16 at 10:30 ALONSO MARTINEZ MD Sep 09, 2016 15:48
--- NOTE | 2016-09-09 17:44 | PN ---
DATE: 09/09/2016 SUBJECTIVE: No events overnight. The patient is lying comfortably in bed. He is intubated and sed ated. No fevers. VITAL SIGNS: Temperature 98.9, pulse 79, respirations 28, blood pressure 104/48, saturation 100 on vent. LABORATORY DATA: WBC 13.5, H and H 9.7 and 29.3, platelets 172, neutrophils 89.3, no bands. BUN __ __, creatinine 1.68. MICROBIOLOGY: No new cultures. DIAGNOSTICS: Chest x-ray this morning revealed persistent pulmonary vascular congestion and interst itial edema. INDWELLINGS: Endotracheal tube, NG tube, right chest PermCath. ANTIMICROBIALS: 1. Vancomycin. 2. Meropenem. PHYSICAL EXAMINATION: GENERAL: This is a morbidly obese, middle-aged white man who is lying comfortably in bed. HEENT: Head atraumatic, normocephalic. Sclerae anicteric. Buccal mucosa dry. NECK: Supple. CHEST: Rise symmetrical. Breath sounds diminished to bases. HEART: S1, S2. ABDOMEN: Obese, soft. Bowel tones hypoactive. EXTREMITIES: Bilateral lower extremities Patrick wrapped, intact. ASSESSMENT: 1. Status post oxacillin-sensitive Staphylococcus aureus septicemia on admission. 2. Bilateral lower extremities acute on chronic cellulitis with left toe osteomyelitis. 3. Healthcare-associated pneumonia. 4. Pulmonary edema. 5. Respiratory failure. 6. Acute on chronic kidney disease, hemodialysis dependent. 7. Atrial fibrillation. PLAN: The patient remains hemodynamically stable, covered with appropriate antimicrobials, pending sputum cultures. Possible thoracentesis today. Discussed with RN. Dictated By: JAMEY VAZQUEZ ULTRASOUND SPECIALIST for DONAVAN BRITTON MD NI/NTS Conf#: [id number] DID#: [id number] CC: KELLEN MEDINA MD;*EndCC*
--- NOTE | 2016-09-09 18:29 | RADRPT ---
PROCEDURE: US bilateral lower extremity veins. CLINICAL INDICATION: Bilateral leg pain and swelling. Shortness of breath. TECHNIQUE: Multiple longitudinal and transverse images of the bilateral lower extremity veins were obtained with lai scale and color Doppler imaging. The common femoral vein, femoral vein, and popl iteal vein were evaluated. 2D grayscale measurements with compression sonography, color Doppler, and pulsed Doppler with augmentation. COMPARISON: No prior studies are available for comparison. FINDINGS: The bilateral common femoral, femoral and popliteal veins are normally compressible throughout. Col or flow demonstrates normal filling of the vessels. Normal waveforms are visualized and there is no rmal response to augmentation. IMPRESSION: 1. No evidence of deep vein thrombosis involving either lower extremity. RPTAT: QQ .Aldo Ramirez MD, MD Date Time Electronically viewed and signed by .Aldo Ramirez MD, on 09/09/2016 18:29 .R/
[2016-09-09] MEDS: ATORVASTATIN 10 MG TAB PO SCH (21:21)
[2016-09-09] MEDS: INSULIN GLARGINE [LANtus] 3 ML PEN SC SCH (21:29)
[2016-09-10] VITALS (56 sets, daily range): BP systolic 78–122; BP diastolic 23–77; PULSE 70–93; RESP 16–25
[2016-09-10] MEDS: ALBUTEROL HFA 8 GM INHALER INH SCH ×6 (01:38→21:10)
[2016-09-10] MEDS: IPRATROPIUM (HFA) 12.9 GM INHALER INH SCH ×6 (01:38→21:10)
[2016-09-10] MEDS: ACCUCHECK XX SCH (02:00)
[2016-09-10] MEDS: PROPOFOL 100 ML IV SCH ×3 (02:55→17:13)
[2016-09-10 04:51] LABS: BASOPHILS % 0.1 % (0.0-2.0); EOSINOPHILS # 1.2 10^3/ul (0.0-0.5); EOSINOPHILS % 7.3 % (0.0-7.0); HEMATOCRIT 27.8 % (42.0-52.0); LYMPHOCYTES # 0.6 10^3/ul (0.8-2.9); LYMPHOCYTES % 3.4 % (15.0-51.0); MEAN CORPUSCULAR HEMOGLOBIN 25.1 pg (29.0-33.0); MEAN CORPUSCULAR HGB CONC 32.3 g/dl (32.0-37.0); MEAN CORPUSCULAR VOLUME 77.7 fl (82.0-101.0); MEAN PLATELET VOLUME 8.7 fl (7.4-10.4); MONOCYTES % 6.2 % (0.0-11.0); NEUTROPHIL # 13.9 10^3/ul (1.6-7.5); PLATELET COUNT 152 10^3/UL (140-440); RED BLOOD COUNT 3.58 10^6/ul (4.70-6.10); RED CELL DISTRIBUTION WIDTH 21.6 % (11.5-14.5); UNCORRECTED WBC 16.8 10^3/ul (4.8-10.8); WHITE BLOOD COUNT 16.8 10^3/ul (4.8-10.8)
[2016-09-10 04:57] LABS: POTASSIUM 3.2 mmol/L (3.5-5.1)
[2016-09-10 05:00] LABS: CREATININE 1.66 mg/dl (0.61-1.24)
[2016-09-10 05:01] LABS: CALCIUM 7.2 mg/dl (8.4-10.2)
[2016-09-10 05:08] LABS: CONDITION 1; LH ANALYZER COMMENTS 1
[2016-09-10] MEDS: HEPARIN 5,000 UNIT/0.5 ML SYG SC SCH ×3 (06:46→22:26)
--- NOTE | 2016-09-10 07:00 | RADRPT ---
PROCEDURE: XR Chest. CLINICAL INDICATION: Respiratory failure TECHNIQUE: Portable single view of the chest COMPARISON: 09/09 FINDINGS: Lung volumes are slightly reduced but the exam is otherwise unchanged. Tubes and lines remain in go od position. Infiltrate or edema throughout the right mid lung and lung bases bilaterally is simila r to prior. Cardiomegaly and pulmonary vascular congestion. IMPRESSION: Shallower lung volumes. Otherwise stable exam. RPTAT: HLBE Prema Yang Physician Date Time Electronically viewed and signed by Prema Yang Physician on 09/10/2016 07:00 LE/
[2016-09-10 07:13] LABS: Allen Test ACCEPTAB; Arterial Base Excess 1.5 mmol/L (-3.0-3); Arterial COHb 0.3 % (0.0-3.0); Arterial Fraction of Oxyhgb 89.8 % (93.0-99.0); Arterial HCO3 25.6 mmol/L (22.0-26.0); Arterial MetHb 0.2 % (0.0-1.5); Arterial Total Hemglobin 10.7 g/dl (12.0-18.0); MODE VENT - AC
[2016-09-10] MEDS: INSULIN ASPART [NOVOLOG] 3 ML PEN SC SCH ×6 (07:35→17:35)
--- NOTE | 2016-09-10 08:10 | PN ---
Date/Time of Note Date/Time of Note DATE: 09/10/16 TIME: 08:05 Assessment/Plan VTE Prophylaxis VTE Prophylaxis Intervention: heparin Lines/Catheters IV [facility] Type (from [facility]): PICC Line Central line still needed: Yes Urinary Cath still in place: Yes Reason Cath still needed: other (indicate) Assessment/Plan Chief Complaint/Hosp Course 1. Left great toe osteomyelitis. Continue antibiotics as per infectious disease. Status post evaluation by vascular surgery. 2. Acute on chronic respiratory failure, hypoxic and hypercapnic. S/P intubation on 09/06/2016 because of worsening respiratory distress. Continue noninvasive positive pressure ventilation. Continue inhaled bronchodilators. 3. Pulmonary hypertension. Continue supplemental oxygen. 4. Acute on chronic kidney disease. The patient was newly started on hemodialysis. Nephrology following. 5. Congestive heart failure exacerbation. Acute on chronic diastolic dysfunction. Continue hemodialysis as per nephrology. 6. Type 2 diabetes mellitus. Hemoglobin A1c 5.8. Continue sliding scale insulin. 7. Essential hypertension. Continue antihypertensives. 8. Atrial fibrillation. Rate controlled. Will involve cardiology on the case. Therapeutic anticoagulation will be deferred to cardiology. 9. Dyslipidemia. Continue statins. 10. Gout. Continue allopurinol. 11. Major depression. Continue selective serotonin reuptake inhibitors. 12. Morbid obesity with BMI of 42.5 kg/meter squared. Weight reduction advised. 13. Fluid, electrolytes, and nutrition. Will start NGT feedings. 14. Deep vein thrombosis prophylaxis. Subcutaneous heparin. 15. Gastrointestinal prophylaxis. Histamine 2 blockers. PLAN: Wean off ventilator as per pulmonary. Replete potassium. Start NGT feeds. Case discussed with Dr. Tipton. Problems: Subjective 24 Hr Interval Summary Free Text/Dictation Vital signs stable. Exam/Review of Systems Vital Signs Vitals Vital Signs Date Time Temp Pulse Resp B/P Pulse Ox O2 Delivery O2 Flow Rate FiO2 09/10/16 07:00 78 21 93/40 93 Mechanical Ventilator 09/10/16 05:40 60 09/10/16 04:00 98.8 Intake and Output 09/09/16 09/09/16 09/10/16 15:00 23:00 07:00 Intake Total 3781.24 ml 1328.77 ml 187.92 ml Output Total 285 ml 325 ml 320 ml Balance 3496.24 ml 1003.77 ml -132.08 ml Exam GENERAL: This is a morbidly obese male sitting in a chair in mild respiratory distress with oxygen via nasal cannula. HEENT: Head normocephalic and atraumatic. Eyes: Anicteric sclerae. Conjunctivae clear. ENT: Nasal septum. Oral mucosa is dry. NECK: Supple. RESPIRATORY: Bilaterally diminished breath sounds. Fine rales. On AC mode ventilation. CARDIAC: Irregularly irregular rhythm. Systolic murmur. ABDOMEN: Soft, nontender, but protuberant. Bowel sounds hypoactive in all 4 quadrants. GENITOURINARY: Deferred. EXTREMITIES: Bilateral lower extremity 2+ edema. SKIN: Maculopapular rashes on B/L upper extremities. NEUROLOGIC: The patient is somnolent now. On propofol gtt. Results Result Diagram: 09/10/16 0400 09/10/16 0400 Results 24 hrs Laboratory Tests Test 09/09/16 08:10 09/09/16 12:36 09/09/16 18:07 09/09/16 21:20 Bedside Glucose 91 134 88 105 Test 09/10/16 04:00 09/10/16 07:00 Anion Gap 15 Basophils # 0.0 Basophils % 0.1 Blood Morphology Comment Blood Urea Nitrogen 59 H Calcium Level 7.2 L Carbon Dioxide Level 27 Chloride Level 96 L Creatinine 1.66 H Eosinophils # 1.2 H Eosinophils % 7.3 H Glucose Level 68 #L Hematocrit 27.8 L Hemoglobin 9.0 L Lymphocytes # 0.6 L Lymphocytes % 3.4 L Mean Corpuscular Hemoglobin 25.1 L Mean Corpuscular Hemoglobin Concent 32.3 Mean Corpuscular Volume 77.7 L Mean Platelet Volume 8.7 Monocytes # 1.0 H Monocytes % 6.2 Neutrophils # 13.9 H Neutrophils % 83.0 H Nucleated Red Blood Cells # 0.0 Nucleated Red Blood Cells % 0.0 Platelet Count 152 Potassium Level 3.2 L Red Blood Count 3.58 L Red Cell Distribution Width 21.6 H Sodium Level 135 White Blood Count 16.8 #H Arterial Blood HCO3 25.6 Arterial Blood Base Excess 1.5 Arterial Blood Oxygen Saturation 90.3 L Khoi Test ACCEPTAB Arterial Blood Gas Puncture Site Right Radial Arterial Blood Carboxyhemoglobin 0.3 Arterial Blood Date Drawn 09/10/2016 7:00:59 AM Arterial Blood Methemoglobin 0.2 Arterial Blood pCO2 (Temp correct) 38.6 Arterial Blood pH (Temp corrected) 7.440 Arterial Blood pO2 (Temp corrected) 57.3 L Blood Gas A-a O2 Differential 328.0 H Blood Gas Actual Respiration Rate 20 Blood Gas Low PEEP Setting 10.0 Blood Gas Modality VENT - AC Blood Gas Notified Time 09/10/2016 7:13:14 AM Blood Gas Notified Whom UP Blood Gas Respiration Rate 18.0 Blood Gas Specimen Source Blood arterial Blood Gas Temperature 37.0 Blood Gas Tidal Volume 600.0 FiO2 60.0 Oxyhemoglobin Percent 89.8 L Total Hemoglobin 10.7 L Medications Medications Current Medications Acetaminophen (Tylenol Tab) 650 mg Q6H PRN PO PAIN LEVEL 1-3 OR FEVER; Start 08/13/16 at 17:30 Acetaminophen/ Hydrocodone Bitart ([place] (5/325)) 1 tab Q6H PRN PO MODERATE PAIN LEVEL 4-6 Last administered on 08/30/16at 02:54; Admin Dose 1 TAB; Start 08/13/16 at 17:30 Morphine Sulfate (morphine) 2 mg Q4H PRN IV SEVERE PAIN LEVEL 7-10 Last administered on 09/03/16at 12:28; Admin Dose 2 MG; Start 08/13/16 at 17:30 Docusate Sodium (Colace) 100 mg Q12H PRN PO CONSTIPATION; Start 08/13/16 at 17 :30 Heparin Sodium (Porcine) (Heparin (5000 Units/0.5 ml)) 5,000 unit Q12 SC Last administered on 08/25/16 21:01; Admin Dose 5,000 UNIT; Start 08/13/16 at 21: 00; Status Future Hold Allopurinol (Zyloprim) 100 mg DAILY PO Last administered on 09/09/16 08:31; Admin Dose 100 MG; Start 08/14/16 at 09:00 Ascorbic Acid (Vitamin C) 500 mg DAILY PO Last administered on 09/09/16 08:30 ; Admin Dose 500 MG; Start 08/13/16 at 18:00 Aspirin (Halfprin) 81 mg DAILY PO Last administered on 09/09/16 08:31; Admin Dose 81 MG; Start 08/14/16 at 09:00 Atorvastatin Calcium (Lipitor) 10 mg QHS PO Last administered on 09/09/16 21: 21; Admin Dose 10 MG; Start 08/13/16 at 21:00 Cholecalciferol (Vitamin D) 1,000 unit DAILY PO Last administered on 08:31; Admin Dose 1,000 UNIT; Start 08/14/16 at 09:00 Fish Oil (Fish Oil) 1,000 mg DAILY PO Last administered on 09/09/16 08:31; Admin Dose 1,000 MG; Start 08/14/16 at 09:00 Lactobacillus Acidoph/Bulgaricus (Floranex) 1 tab TID PO Last administered on 09/09/16 21:17; Admin Dose 1 TAB; Start 08/13/16 at 21:00 Metoprolol Tartrate (Lopressor) 12.5 mg BID PO Last administered on 09/09/16 21:23; Admin Dose 12.5 MG; Start 08/13/16 at 21:00 Pregabalin (Lyrica) 50 mg TID PO Last administered on 09/09/16 21:15; Admin Dose 50 MG; Start 08/13/16 at 21:00 Pyridoxine HCl (Vitamin B6) 100 mg DAILY PO Last administered on 09/09/16 08: 30; Admin Dose 100 MG; Start 08/14/16 at 09:00 Simethicone (Mylicon) 80 mg Q6H PRN PO INTESTINAL SPASMS/CRAMPING Last administered on 09/05/16 18:54; Admin Dose 80 MG; Start 08/13/16 at 17:30 Vitamin E (Vitamin E) 400 units DAILY PO Last administered on 09/09/16 08:32 ; Admin Dose 400 UNITS; Start 08/14/16 at 09:00 Fluoxetine HCl (Prozac) 20 mg DAILY PO Last administered on 09/09/16 08:30; Admin Dose 20 MG; Start 08/14/16 at 09:00 Miscellaneous Information 1 ea NOTE XX ; Start 08/13/16 at 18:00 Glucose (Glutose) 15 gm Q15M PRN PO DECREASED GLUCOSE; Start 08/13/16 at 18:00 Glucose (Glutose) 22.5 gm Q15M PRN PO DECREASED GLUCOSE; Start 08/13/16 at 18: 00 Dextrose (D50w Syringe) 25 ml Q15M PRN IV DECREASED GLUCOSE Last administered on 09/06/16at 23:55; Admin Dose 25 ML; Start 08/13/16 at 18:00 Dextrose (D50w Syringe) 50 ml Q15M PRN IV DECREASED GLUCOSE; Start 08/13/16 at 18:00 Glucagon (Glucagen) 1 mg Q15M PRN IM DECREASED GLUCOSE; Start 08/13/16 at 18: 00 Glucose (Glutose) 15 gm Q15M PRN BUCCAL DECREASED GLUCOSE; Start 08/13/16 at 18:00 Sodium Hypochlorite (Dakin'S (1/4 Strength)) 1 applic DAILY IRR Last administered on 09/09/16at 08:31; Admin Dose 1 APPLIC; Start 08/13/16 at 20:00 Acetaminophen/ Hydrocodone Bitart ([place] (5/325)) 2 tab Q6H PRN PO MODERATE PAIN LEVEL 4-6 Last administered on 09/06/16at 00:16; Admin Dose 2 TAB; Start 08/14/16 at 13:00 IV Flush (NS 10 ml) 10 ml PRN PRN IV IV PTOTOCOL; Start 08/14/16 at 17:00 Acetylcysteine (Nac) 600 mg BID PO Last administered on 09/09/16at 21:19; Admin Dose 600 MG; Start 08/16/16 at 21:00 Ondansetron HCl (Zofran Inj) 4 mg Q4H PRN IV NAUSEA AND/OR VOMITING; Start 08/16/16 at 12:30 Zolpidem Tartrate (Ambien) 10 mg HS PRN PO INSOMNIA Last administered on at 22:44; Admin Dose 10 MG; Start 08/16/16 at 21:00 Lorazepam (Ativan) 1 mg Q6 PRN PO ANXIETY Last administered on 08/25/16at 22:08 ; Admin Dose 1 MG; Start 08/18/16 at 14:30 Diagnostic Test (Pha) (Accucheck) 1 ea 02 XX Last administered on 09/09/16at 02 :00; Admin Dose 1 EA; Start 08/20/16 at 02:00 Phenol (Cepastat Lozenge) 1 lozenge Q1H PRN MT DRY MOUTH Last administered on 08/20/16at 21:28; Admin Dose 1 LOZENGE; Start 08/20/16 at 20:30 Lorazepam (Ativan) 1 mg HS PRN PO ANXIETY, HELP WITH SLEEP Last administered on 09/05/16at 21:45; Admin Dose 1 MG; Start 08/22/16 at 18:30 Diphenhydramine HCl (Benadryl) 25 mg Q6H PRN PO ITCHING Last administered on at 16:17; Admin Dose 25 MG; Start 08/26/16 at 20:30 Famotidine (Pepcid) 20 mg DAILY PO Last administered on 09/09/16 08:31; Admin Dose 20 MG; Start 09/03/16 at 09:00 Ferrous Sulfate (Feosol Liquid Cup) 300 mg BID PO Last administered on at 21:16; Admin Dose 300 MG; Start 09/06/16 at 21:00 Insulin Glargine 10 unit 10 unit QHS SC Last administered on 09/09/16at 21:29; Admin Dose 10 UNIT; Start 09/07/16 at 21:00 Dextrose 1,000 ml @ 50 mls/hr Q20H IV Last administered on 09/09/16at 23:41; Admin Dose 50 MLS/HR; Start 09/07/16 at 13:00 Meropenem 500 mg/ Sodium Chloride 100 ml @ 200 mls/hr Q24H IVPB Last administered on 09/09/16 08:32; Admin Dose 200 MLS/HR; Start 09/09/16 at 09: 00 Norepinephrine 16 mg/Dextrose 500 ml @ 1.87 mls/hr TITRATE IV ; Start at 08:00 Propofol (Diprivan) 100 ml @ 3.915 mls/ hr Q12H IV Last administered on 06:49; Admin Dose 23.49 MLS/HR; Start 09/09/16 at 02:30 Lorazepam (Ativan) 2 mg Q4H PRN IV anxiety; Start 09/09/16 at 10:30 Heparin Sodium (Porcine) (Heparin (5000 Units/0.5 ml)) 5,000 unit Q8 SC Last administered on 09/10/16at 06:46; Admin Dose 5,000 UNIT; Start 09/09/16 at 22: 00 GIO BISHOP NP Sep 10, 2016 08:09
[2016-09-10] MEDS: METOPROLOL 25 MG TAB PO SCH ×2 (09:00→21:00)
[2016-09-10] MEDS: DEXTROSE 50% 50 ML SYRINGE IV PRN (09:18)
[2016-09-10] MEDS ORDERED: POTASSIUM CHLORIDE 30 MEQ in SOD CHLORIDE 0.9% 150 ML IVPB ONE (09:30)
[2016-09-10] MEDS: LACTOBACILLUS CHEW TAB PO SCH ×3 (09:35→22:10)
[2016-09-10] MEDS: PYRIDOXINE 50 MG TAB PO SCH (09:35)
[2016-09-10] MEDS: FERROUS SULFATE 60 MG/ML 5ML CUP PO SCH ×2 (09:35→22:10)
[2016-09-10] MEDS: VITAMIN E 400 UNITS CAP PO SCH (09:35)
[2016-09-10] MEDS: ACETYLCYSTEINE 600 MG CAP PO SCH ×2 (09:35→22:11)
[2016-09-10] MEDS: ASCORBIC ACID 500 MG TAB PO SCH (09:36)
[2016-09-10] MEDS: FAMOTIDINE 20 MG TAB PO SCH (09:36)
[2016-09-10] MEDS: CALCIUM CARBONATE 500 MG CHEW TAB PO SCH ×3 (09:36→18:48)
[2016-09-10] MEDS: FLUOXETINE 20 MG CAP PO SCH (09:36)
[2016-09-10] MEDS: ASPIRIN (EC) 81 MG TAB PO SCH (09:36)
[2016-09-10] MEDS: FISH OIL 1,000 MG CAP PO SCH (09:36)
[2016-09-10] MEDS: ALLOPURINOL 100 MG TAB PO SCH (09:36)
--- NOTE | 2016-09-10 09:39 | CONS ---
Date/Time of Note Date/Time of Note DATE: 09/10/16 TIME: 09:33 Assessment/Plan Assessment/Plan Additional Assessment/Plan 60 yo male with 1) Respiratory Failure 2) HCAP 3) LORNA on CKD, Currently on HD 4) Volume Overload, Anasarca 5) Pulm HTN 6) Morbid Obesity 7) Bilateral lower extremities acute on chronic cellulitis with left toe osteomyelitis. 8) Status post oxacillin-sensitive Staphylococcus aureus septicemia. Cont supportive care HD today, UF as tolerated Cont to monitor Electrolytes, UO and Renal function Consultation Date/Type/Reason Admit Date/Time Aug 13, 2016 at 16:30 Initial Consult Date 08/13/16 Type of Consultation: Nephrology Reason for Consultation LORNA, CKD Referring Provider: KELLEN MEDINA MD 24 HR Interval Summary Free Text/Dictation Pt remains intubated. No IV pressors. Sedated Subjective hx not possible: pt critical status Constitutional: requiring O2 Exam/Review of Systems Vital Signs Vitals Vital Signs Date Time Temp Pulse Resp B/P Pulse Ox O2 Delivery O2 Flow Rate FiO2 09/10/16 07:00 78 21 93/40 93 Mechanical Ventilator 09/10/16 05:40 60 09/10/16 04:00 98.8 Intake and Output 09/09/16 09/09/16 09/10/16 15:00 23:00 07:00 Intake Total 3781.24 ml 1328.77 ml 187.92 ml Output Total 285 ml 325 ml 320 ml Balance 3496.24 ml 1003.77 ml -132.08 ml Exam Head: atraumatic ENMT: intubated, mucosa pink and moist Respiratory: diminished breath sounds, other (Ventilated) Cardiovascular: edema, regular rate and rhythm Gastrointestinal: distended, soft, No rebound or guarding Extremities: edema 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: other (Sedated) Skin: No diaphoresis Results Result Diagram: 09/10/16 0400 09/10/16 0400 Results 24 hrs Laboratory Tests Test 09/09/16 12:36 09/09/16 18:07 09/09/16 21:20 09/10/16 04:00 Bedside Glucose 134 88 105 Anion Gap 15 Basophils # 0.0 Basophils % 0.1 Blood Morphology Comment Blood Urea Nitrogen 59 H Calcium Level 7.2 L Carbon Dioxide Level 27 Chloride Level 96 L Creatinine 1.66 H Eosinophils # 1.2 H Eosinophils % 7.3 H Glucose Level 68 #L Hematocrit 27.8 L Hemoglobin 9.0 L Lymphocytes # 0.6 L Lymphocytes % 3.4 L Mean Corpuscular Hemoglobin 25.1 L Mean Corpuscular Hemoglobin Concent 32.3 Mean Corpuscular Volume 77.7 L Mean Platelet Volume 8.7 Monocytes # 1.0 H Monocytes % 6.2 Neutrophils # 13.9 H Neutrophils % 83.0 H Nucleated Red Blood Cells # 0.0 Nucleated Red Blood Cells % 0.0 Platelet Count 152 Potassium Level 3.2 L Red Blood Count 3.58 L Red Cell Distribution Width 21.6 H Sodium Level 135 White Blood Count 16.8 #H Test 09/10/16 07:00 09/10/16 09:13 Arterial Blood HCO3 25.6 Arterial Blood Base Excess 1.5 Arterial Blood Oxygen Saturation 90.3 L Khoi Test ACCEPTAB Arterial Blood Gas Puncture Site Right Radial Arterial Blood Carboxyhemoglobin 0.3 Arterial Blood Date Drawn 09/10/2016 7:00:59 AM Arterial Blood Methemoglobin 0.2 Arterial Blood pCO2 (Temp correct) 38.6 Arterial Blood pH (Temp corrected) 7.440 Arterial Blood pO2 (Temp corrected) 57.3 L Blood Gas A-a O2 Differential 328.0 H Blood Gas Actual Respiration Rate 20 Blood Gas Low PEEP Setting 10.0 Blood Gas Modality VENT - AC Blood Gas Notified Time 09/10/2016 7:13:14 AM Blood Gas Notified Whom UP Blood Gas Respiration Rate 18.0 Blood Gas Specimen Source Blood arterial Blood Gas Temperature 37.0 Blood Gas Tidal Volume 600.0 FiO2 60.0 Oxyhemoglobin Percent 89.8 L Total Hemoglobin 10.7 L Bedside Glucose 62 L Medications Medications Current Medications Acetaminophen (Tylenol Tab) 650 mg Q6H PRN PO PAIN LEVEL 1-3 OR FEVER; Start 08/13/16 at 17:30 Acetaminophen/ Hydrocodone Bitart ([place] (5/325)) 1 tab Q6H PRN PO MODERATE PAIN LEVEL 4-6 Last administered on 08/30/16at 02:54; Admin Dose 1 TAB; Start 08/13/16 at 17:30 Morphine Sulfate (morphine) 2 mg Q4H PRN IV SEVERE PAIN LEVEL 7-10 Last administered on 09/03/16at 12:28; Admin Dose 2 MG; Start 08/13/16 at 17:30 Docusate Sodium (Colace) 100 mg Q12H PRN PO CONSTIPATION; Start 08/13/16 at 17 :30 Heparin Sodium (Porcine) (Heparin (5000 Units/0.5 ml)) 5,000 unit Q12 SC Last administered on 08/25/16 21:01; Admin Dose 5,000 UNIT; Start 08/13/16 at 21: 00; Status Future Hold Allopurinol (Zyloprim) 100 mg DAILY PO Last administered on 09/09/16 08:31; Admin Dose 100 MG; Start 08/14/16 at 09:00 Ascorbic Acid (Vitamin C) 500 mg DAILY PO Last administered on 09/09/16 08:30 ; Admin Dose 500 MG; Start 08/13/16 at 18:00 Aspirin (Halfprin) 81 mg DAILY PO Last administered on 09/09/16 08:31; Admin Dose 81 MG; Start 08/14/16 at 09:00 Atorvastatin Calcium (Lipitor) 10 mg QHS PO Last administered on 09/09/16 21: 21; Admin Dose 10 MG; Start 08/13/16 at 21:00 Cholecalciferol (Vitamin D) 1,000 unit DAILY PO Last administered on 08:31; Admin Dose 1,000 UNIT; Start 08/14/16 at 09:00 Fish Oil (Fish Oil) 1,000 mg DAILY PO Last administered on 09/09/16 08:31; Admin Dose 1,000 MG; Start 08/14/16 at 09:00 Lactobacillus Acidoph/Bulgaricus (Floranex) 1 tab TID PO Last administered on 09/09/16 21:17; Admin Dose 1 TAB; Start 08/13/16 at 21:00 Metoprolol Tartrate (Lopressor) 12.5 mg BID PO Last administered on 09/09/16 21:23; Admin Dose 12.5 MG; Start 08/13/16 at 21:00 Pregabalin (Lyrica) 50 mg TID PO Last administered on 09/09/16 21:15; Admin Dose 50 MG; Start 08/13/16 at 21:00 Pyridoxine HCl (Vitamin B6) 100 mg DAILY PO Last administered on 09/09/16 08: 30; Admin Dose 100 MG; Start 08/14/16 at 09:00 Simethicone (Mylicon) 80 mg Q6H PRN PO INTESTINAL SPASMS/CRAMPING Last administered on 09/05/16at 18:54; Admin Dose 80 MG; Start 08/13/16 at 17:30 Vitamin E (Vitamin E) 400 units DAILY PO Last administered on 09/09/16at 08:32 ; Admin Dose 400 UNITS; Start 08/14/16 at 09:00 Fluoxetine HCl (Prozac) 20 mg DAILY PO Last administered on 09/09/16at 08:30; Admin Dose 20 MG; Start 08/14/16 at 09:00 Miscellaneous Information 1 ea NOTE XX ; Start 08/13/16 at 18:00 Glucose (Glutose) 15 gm Q15M PRN PO DECREASED GLUCOSE; Start 08/13/16 at 18:00 Glucose (Glutose) 22.5 gm Q15M PRN PO DECREASED GLUCOSE; Start 08/13/16 at 18: 00 Dextrose (D50w Syringe) 25 ml Q15M PRN IV DECREASED GLUCOSE Last administered on 09/10/16at 09:18; Admin Dose 25 ML; Start 08/13/16 at 18:00 Dextrose (D50w Syringe) 50 ml Q15M PRN IV DECREASED GLUCOSE; Start 08/13/16 at 18:00 Glucagon (Glucagen) 1 mg Q15M PRN IM DECREASED GLUCOSE; Start 08/13/16 at 18: 00 Glucose (Glutose) 15 gm Q15M PRN BUCCAL DECREASED GLUCOSE; Start 08/13/16 at 18:00 Sodium Hypochlorite (Dakin'S (1/4 Strength)) 1 applic DAILY IRR Last administered on 09/09/16at 08:31; Admin Dose 1 APPLIC; Start 08/13/16 at 20:00 Acetaminophen/ Hydrocodone Bitart ([place] (5/325)) 2 tab Q6H PRN PO MODERATE PAIN LEVEL 4-6 Last administered on 09/06/16at 00:16; Admin Dose 2 TAB; Start 08/14/16 at 13:00 IV Flush (NS 10 ml) 10 ml PRN PRN IV IV PTOTOCOL; Start 08/14/16 at 17:00 Acetylcysteine (Nac) 600 mg BID PO Last administered on 09/09/16at 21:19; Admin Dose 600 MG; Start 08/16/16 at 21:00 Ondansetron HCl (Zofran Inj) 4 mg Q4H PRN IV NAUSEA AND/OR VOMITING; Start 08/16/16 at 12:30 Zolpidem Tartrate (Ambien) 10 mg HS PRN PO INSOMNIA Last administered on at 22:44; Admin Dose 10 MG; Start 08/16/16 at 21:00 Lorazepam (Ativan) 1 mg Q6 PRN PO ANXIETY Last administered on 08/25/16at 22:08 ; Admin Dose 1 MG; Start 08/18/16 at 14:30 Diagnostic Test (Pha) (Accucheck) 1 ea 02 XX Last administered on 09/09/16at 02 :00; Admin Dose 1 EA; Start 08/20/16 at 02:00 Phenol (Cepastat Lozenge) 1 lozenge Q1H PRN MT DRY MOUTH Last administered on 08/20/16 21:28; Admin Dose 1 LOZENGE; Start 08/20/16 at 20:30 Lorazepam (Ativan) 1 mg HS PRN PO ANXIETY, HELP WITH SLEEP Last administered on 09/05/16at 21:45; Admin Dose 1 MG; Start 08/22/16 at 18:30 Diphenhydramine HCl (Benadryl) 25 mg Q6H PRN PO ITCHING Last administered on 16:17; Admin Dose 25 MG; Start 08/26/16 at 20:30 Famotidine (Pepcid) 20 mg DAILY PO Last administered on 09/09/16 08:31; Admin Dose 20 MG; Start 09/03/16 at 09:00 Ferrous Sulfate (Feosol Liquid Cup) 300 mg BID PO Last administered on 21:16; Admin Dose 300 MG; Start 09/06/16 at 21:00 Insulin Glargine 10 unit 10 unit QHS SC Last administered on 09/09/16 21:29; Admin Dose 10 UNIT; Start 09/07/16 at 21:00 Dextrose 1,000 ml @ 50 mls/hr Q20H IV Last administered on 09/09/16 23:41; Admin Dose 50 MLS/HR; Start 09/07/16 at 13:00 Meropenem 500 mg/ Sodium Chloride 100 ml @ 200 mls/hr Q24H IVPB Last administered on 12/25/16at 08:32; Admin Dose 200 MLS/HR; Start 09/09/16 at 09: 00 Norepinephrine 16 mg/Dextrose 500 ml @ 1.87 mls/hr TITRATE IV ; Start at 08:00 Propofol (Diprivan) 100 ml @ 3.915 mls/ hr Q12H IV Last administered on at 06:49; Admin Dose 23.49 MLS/HR; Start 09/09/16 at 02:30 Lorazepam (Ativan) 2 mg Q4H PRN IV anxiety; Start 09/09/16 at 10:30 Heparin Sodium (Porcine) 5000 unit 5,000 unit Q8 SC Last administered on at 06:46; Admin Dose 5,000 UNIT; Start 09/09/16 at 22:00 Potassium Chloride/Sodium Chloride (KCl/NS) 165 ml @ 55 mls/hr ONCE ONCE IVPB ; Start 09/10/16 at 09:30; Stop 09/10/16 at 12:29 Procedures Procedures PROCEDURE: XR Chest. CLINICAL INDICATION: Respiratory failure TECHNIQUE: Portable single view of the chest COMPARISON: 09/09 FINDINGS: Lung volumes are slightly reduced but the exam is otherwise unchanged. Tubes and lines remain in good position. Infiltrate or edema throughout the right mid lung and lung bases bilaterally is similar to prior. Cardiomegaly and pulmonary vascular congestion. IMPRESSION: Shallower lung volumes. Otherwise stable exam. RPTAT: [facility] Physician Merna Date Time Electronically viewed and signed by Prema Yang, Physician on 09/10/2016 07 :00 DYAN FRANKLIN MD Sep 10, 2016 09:39
[2016-09-10] MEDS: SODIUM HYPOCHLORITE 0.125% 473 ML BTL IRR SCH (09:41)
[2016-09-10] MEDS: MEROPENEM 500 MG in SOD CHLORIDE 0.9% 100 ML IVPB SCH (09:48)
[2016-09-10] MEDS: PREGABALIN 25 MG CAP PO SCH ×3 (10:02→22:11)
[2016-09-10] MEDS: CHOLECALCIFEROL 1,000 UNIT TAB PO SCH (10:05)
[2016-09-10] MEDS: FLUCONAZOLE 100 MG TAB PO SCH (15:50)
--- NOTE | 2016-09-10 16:59 | PN ---
DATE: INFECTIOUS DISEASE PROGRESS NOTE SUBJECTIVE: No acute changes. The patient was intubated, sedated, in hemodialysis although looks com fortable. VITAL SIGNS: Temperature 98.7, pulse 76, respirations 18, blood pressure 82/79, saturation 91 on 70 FIO2. WBC 16.8 with H and H 9 and 27.8, platelets 152, 83. INDWELLINGS: Right chest Perm-A-Cath, endotracheal tube, NG tube. PIC line placed on August 14. DIAGNOSTICS: Chest x-ray revealed shallower lung volumes, otherwise stable exam. ANTIMICROBIALS: 1. Vancomycin. 2. Meropenem. PHYSICAL EXAMINATION: GENERAL: This is a morbidly obese middle-aged white man who is intubated, sedated and in no distres s. HEENT: Head atraumatic, normocephalic. Sclera anicteric. Mucal mucosa dry. NECK: Supple. Trachea midline. CHEST: Rise symmetrical. Breath sound diminished at bases. HEART: S1, S2. ABDOMEN: Obese, soft. Bowel tones present. EXTREMITIES: With bilateral lower extremity JEANA wrapped. ASSESSMENT: 1. Acute on chronic respiratory failure, remains intubated. 2. Health care associated pneumonia with bilateral pleural effusions. 3. Status post oxacillin sensitive septicemia on admission. 4. Acute on chronic kidney disease, hemodialysis dependent now. 5. Bilateral lower extremity acute on chronic cellulitis with left toe osteomyelitis. 6. Coronary artery disease. PLAN: The patient remains hemodynamically stable with worsening leukocytosis. We are going to repea t blood cultures from PICC line. Add empiric antifungal coverage. I will have patient will repeat ot her. Await for sputum cultures. Dictated By: JAMEY VAZQUEZ PROCESS STEWARD for DONAVAN BRITTON MD NI/NTS Conf#: [id number] DID#: [id number]
--- NOTE | 2016-09-10 18:52 | CONS ---
DATE OF ADMISSION: 08/13/2016 DATE OF CONSULTATION: 09/10/2016 TYPE OF CONSULTATION: Cardiology. REFERRING PHYSICIAN: Dr. Tipton REASON FOR CONSULTATION: Atrial fibrillation. HISTORY OF PRESENT ILLNESS: Thank you for this referral. History obtained from the extensive revie w of the old chart. The patient also known to me from previous admission to the hospital, discussio n with physician and staff including nursing staff and [employer]. This is an unfortunate 60-year-old gentleman with multiple complicated medical history who was admitted initially on 08/13/2016 for in creasing left toe swelling and redness and osteomyelitis. The patient had a complicated course. Wo rsening renal failure. Currently on dialysis. The patient also has had increasing respiratory fail ure and had to be intubated. Currently on the vent. The patient has chronic atrial fibrillation, c urrently not anticoagulated. Per review of the old chart showed the patient was previously not antic oagulated due to his severe anemia and concern about the fall risk. The patient intubated on the ve nt, unable to provide any history to me. PAST MEDICAL HISTORY: Most of history obtained from old chart, chronic atrial fibrillation, history of pulmonary hypertension, history of congestive heart failure secondary to diastolic dysfunction, history of chronic kidney disease, history of diabetes, obesity, depression, gout, obesity hypoventi lation syndrome, cellulitis of the legs. PAST SURGICAL HISTORY: Status post mitral repair for osteomyelitis, , status post tracheostomy , which has been closed. SOCIAL HISTORY: Does not smoke or drink now has been a smoker in the past. FAMILY HISTORY: No reported coronary artery disease. ALLERGIES: NO KNOWN ALLERGIES. MEDICATIONS: As per medical reconciliation, personally reviewed. PHYSICAL EXAMINATION: VITAL SIGNS: Temperature is 98.7, heart rate of 78, blood pressure of 82/71, respiratory rate of 18 , saturating 91%. HEENT: Normocephalic, atraumatic. Obese gentleman. Pupils are equal and round. Status post intub ation on the vent. CARDIOVASCULAR: Irregularly irregular. Systolic murmur. PULMONARY: Mild rhonchi. GASTROINTESTINAL: Obese, soft, nontender. EXTREMITIES: Positive trivial edema. NEUROLOGIC: Sedated. DIAGNOSTIC DATA: Chest x-ray shows shallow lower lung volumes. Cardiomegaly, pulmonary vascular co ngestion. ASSESSMENT AND PLAN: 1. Hypoxemia respiratory failure, status post intubation on the vent. 2. Atrial fibrillation, appears to be chronic. 3. History of pulmonary fibrosis, hypertension secondary to diastolic dysfunction as well as possib le interstitial lung disease. 4. Congestive heart failure with severe diastolic dysfunction. 5. Diabetes. 6. Hypertension. 7. Morbid obesity. 8. Anemia. RECOMMENDATIONS: We will continue the vent support. Continue with the ICU care for now. Heart rat e currently stable. We will continue to monitor. Electrolytes will be corrected and managed as per renal. Hemodialysis. Patient has had atrial fibrillation for a long time, but has not been antico agulated due to anemia. For now, we will continue with the aspirin. He also may need tracheostomy soon as well. Once more stable, consider anticoagulation, possibly with Eliquis as well. Continue with the ICU care. Thank you for this referral. We will continue to follow along with you. More than 45 minutes critical care time was spent in management of this patient excluding any proced ures. Dictated By: GARDENIA NELSON MD AV/GREGORY Conf#: [id number] DID#: [id number] CC: KELLEN TIPTON MD;*EndCC*
[2016-09-10] MEDS: DEXTROSE 5% 1,000 ML IV SCH (19:44)
[2016-09-10] MEDS: ATORVASTATIN 10 MG TAB PO SCH (22:10)
[2016-09-10] MEDS: INSULIN GLARGINE [LANtus] 3 ML PEN SC SCH (22:27)
[2016-09-11] VITALS (54 sets, daily range): BP systolic 85–118; BP diastolic 57–79; PULSE 69–92; RESP 11–28
[2016-09-11] MEDS: INSULIN ASPART [NOVOLOG] 3 ML PEN SC SCH ×6 (01:00→20:28)
[2016-09-11] MEDS: PROPOFOL 100 ML IV SCH ×4 (01:04→18:57)
[2016-09-11] MEDS: IPRATROPIUM (HFA) 12.9 GM INHALER INH SCH ×6 (01:19→21:03)
[2016-09-11] MEDS: ALBUTEROL HFA 8 GM INHALER INH SCH ×6 (01:19→21:03)
[2016-09-11 05:20] LABS: POTASSIUM 3.4 mmol/L (3.5-5.1)
[2016-09-11 05:22] LABS: CREATININE 1.71 mg/dl (0.61-1.24)
[2016-09-11 05:23] LABS: CALCIUM 7.3 mg/dl (8.4-10.2); PHOSPHORUS 4.8 mg/dl (2.5-4.9)
[2016-09-11 05:24] LABS: MAGNESIUM 1.9 mg/dl (1.7-2.5)
[2016-09-11 05:48] LABS: BASOPHIL # 0.1 10^3/ul (0.0-0.1); BASOPHILS % 0.4 % (0.0-2.0); EOSINOPHILS % 8.5 % (0.0-7.0); HEMATOCRIT 28.7 % (42.0-52.0); HEMOGLOBIN 9.3 g/dl (14.0-18.0); LYMPHOCYTES # 0.7 10^3/ul (0.8-2.9); LYMPHOCYTES % 5.9 % (15.0-51.0); MEAN CORPUSCULAR HEMOGLOBIN 25.5 pg (29.0-33.0); MEAN CORPUSCULAR HGB CONC 32.5 g/dl (32.0-37.0); MEAN CORPUSCULAR VOLUME 78.4 fl (82.0-101.0); MEAN PLATELET VOLUME 8.9 fl (7.4-10.4); MONOCYTES % 7.9 % (0.0-11.0); NEUTROPHIL # 9.5 10^3/ul (1.6-7.5); NEUTROPHILS % 77.3 % (39.0-77.0); PLATELET COUNT 170 10^3/UL (140-440); RED BLOOD COUNT 3.66 10^6/ul (4.70-6.10); RED CELL DISTRIBUTION WIDTH 22.5 % (11.5-14.5); UNCORRECTED WBC 12.3 10^3/ul (4.8-10.8); WHITE BLOOD COUNT 12.3 10^3/ul (4.8-10.8)
[2016-09-11 06:01] LABS: CONDITION 1; LH ANALYZER COMMENTS 1
[2016-09-11] MEDS: HEPARIN 5,000 UNIT/0.5 ML SYG SC SCH ×3 (06:08→22:57)
--- NOTE | 2016-09-11 07:14 | PN ---
Date/Time of Note Date/Time of Note DATE: 09/11/16 TIME: 07:11 Assessment/Plan VTE Prophylaxis VTE Prophylaxis Intervention: heparin Lines/Catheters IV Catheter Type (from Nrs): TIARA Central line still needed: Yes Urinary Cath still in place: Yes Reason Cath still needed: terminal illness/intractable pain, other (indicate) Assessment/Plan Chief Complaint/Hosp Course 1. Left great toe osteomyelitis. Continue antibiotics as per infectious disease. Status post evaluation by vascular surgery. 2. Acute on chronic respiratory failure, hypoxic and hypercapnic. S/P intubation on 09/06/2016 because of worsening respiratory distress. Continue noninvasive positive pressure ventilation. Continue inhaled bronchodilators. 3. Ventilator associated pneumonia. Sputum culture positive for Acinetobacter baumannii. ID on board. Antibiotics as per ID. 4. Pulmonary hypertension. Continue supplemental oxygen. 5. Acute on chronic kidney disease. The patient was newly started on hemodialysis. Nephrology following. 6. Congestive heart failure exacerbation. Acute on chronic diastolic dysfunction. Continue hemodialysis as per nephrology. 7. Type 2 diabetes mellitus. Hemoglobin A1c 5.8. Continue sliding scale insulin. 8. Essential hypertension. Continue antihypertensives. 9. Atrial fibrillation. Rate controlled. Cardiology following. Therapeutic anticoagulation will be deferred to cardiology. 10. Dyslipidemia. Continue statins. 11. Gout. Continue allopurinol. 12. Major depression. Continue selective serotonin reuptake inhibitors. 13. Morbid obesity with BMI of 42.5 kg/meter squared. 14. Fluid, electrolytes, and nutrition. Continue NGT feedings. 15. Deep vein thrombosis prophylaxis. Subcutaneous heparin. 16. Gastrointestinal prophylaxis. Histamine 2 blockers. PLAN: Wean off ventilator as per pulmonary. Continue ICU monitoring. Case discussed with Dr. Tipton. Critical care time. 35 minutes. Problems: Subjective 24 Hr Interval Summary Free Text/Dictation Remains on mechanical ventilator with high FiO2. Exam/Review of Systems Vital Signs Vitals Vital Signs Date Time Temp Pulse Resp B/P Pulse Ox O2 Delivery O2 Flow Rate FiO2 09/11/16 05:30 75 11 93/62 97 Mechanical Ventilator 09/11/16 05:21 70 09/11/16 04:00 98.9 Intake and Output 09/10/16 09/10/16 09/11/16 14:59 22:59 06:59 Intake Total 1068.77 ml 712.64 ml 999.34 ml Output Total 3645 ml 480 ml 260 ml Balance -2576.23 ml 232.64 ml 739.34 ml Exam GENERAL: This is a morbidly obese male sitting in a chair in mild respiratory distress with oxygen via nasal cannula. HEENT: Head normocephalic and atraumatic. Eyes: Anicteric sclerae. Conjunctivae clear. ENT: Nasal septum. Oral mucosa is dry. NECK: Supple. RESPIRATORY: Bilaterally diminished breath sounds. Fine rales. On AC mode ventilation. CARDIAC: Irregularly irregular rhythm. Systolic murmur. ABDOMEN: Soft, nontender, but protuberant. Bowel sounds hypoactive in all 4 quadrants. GENITOURINARY: Deferred. EXTREMITIES: Bilateral lower extremity 2+ edema. SKIN: Maculopapular rashes on B/L upper extremities. NEUROLOGIC: The patient is somnolent now. On propofol gtt. Results Result Diagram: 09/11/16 0410 09/11/16 0410 Results 24 hrs Laboratory Tests Test 09/10/16 09:13 09/10/16 09:39 09/10/16 11:29 09/10/16 14:37 Bedside Glucose 62 L 81 71 76 Test 09/10/16 17:48 09/10/16 22:12 09/11/16 01:10 09/11/16 04:10 Bedside Glucose 77 107 128 Anion Gap 14 Basophils # 0.1 Basophils % 0.4 Blood Morphology Comment Blood Urea Nitrogen 51 H Calcium Level 7.3 L Carbon Dioxide Level 28 Chloride Level 97 Creatinine 1.71 H Eosinophils # 1.0 H Eosinophils % 8.5 H Glucose Level 98 Hematocrit 28.7 L Hemoglobin 9.3 L Lymphocytes # 0.7 L Lymphocytes % 5.9 L Magnesium Level 1.9 Mean Corpuscular Hemoglobin 25.5 L Mean Corpuscular Hemoglobin Concent 32.5 Mean Corpuscular Volume 78.4 L Mean Platelet Volume 8.9 Monocytes # 1.0 H Monocytes % 7.9 Neutrophils # 9.5 H Neutrophils % 77.3 H Nucleated Red Blood Cells # 0.0 Nucleated Red Blood Cells % 0.0 Phosphorus Level 4.8 Platelet Count 170 Potassium Level 3.4 L Red Blood Count 3.66 L Red Cell Distribution Width 22.5 H Sodium Level 136 White Blood Count 12.3 #H Test 09/11/16 04:12 Bedside Glucose 115 Medications Medications Current Medications Acetaminophen (Tylenol Tab) 650 mg Q6H PRN PO PAIN LEVEL 1-3 OR FEVER; Start 08/13/16 at 17:30 Acetaminophen/ Hydrocodone Bitart ([place] (5/325)) 1 tab Q6H PRN PO MODERATE PAIN LEVEL 4-6 Last administered on 08/30/16at 02:54; Admin Dose 1 TAB; Start 08/13/16 at 17:30 Morphine Sulfate (morphine) 2 mg Q4H PRN IV SEVERE PAIN LEVEL 7-10 Last administered on 09/03/16 12:28; Admin Dose 2 MG; Start 08/13/16 at 17:30 Docusate Sodium (Colace) 100 mg Q12H PRN PO CONSTIPATION; Start 08/13/16 at 17 :30 Heparin Sodium (Porcine) (Heparin (5000 Units/0.5 ml)) 5,000 unit Q12 SC Last administered on 08/25/16 21:01; Admin Dose 5,000 UNIT; Start 08/13/16 at 21: 00; Status Future Hold Allopurinol (Zyloprim) 100 mg DAILY PO Last administered on 09/10/16 09:36; Admin Dose 100 MG; Start 08/14/16 at 09:00 Ascorbic Acid (Vitamin C) 500 mg DAILY PO Last administered on 09/10/16 09:36 ; Admin Dose 500 MG; Start 08/13/16 at 18:00 Aspirin (Halfprin) 81 mg DAILY PO Last administered on 09/10/16 09:36; Admin Dose 81 MG; Start 08/14/16 at 09:00 Atorvastatin Calcium (Lipitor) 10 mg QHS PO Last administered on 09/10/16 22: 10; Admin Dose 10 MG; Start 08/13/16 at 21:00 Cholecalciferol (Vitamin D) 1,000 unit DAILY PO Last administered on 10:05; Admin Dose 1,000 UNIT; Start 08/14/16 at 09:00 Fish Oil (Fish Oil) 1,000 mg DAILY PO Last administered on 09/10/16 09:36; Admin Dose 1,000 MG; Start 08/14/16 at 09:00 Lactobacillus Acidoph/Bulgaricus (Floranex) 1 tab TID PO Last administered on 09/10/16 22:10; Admin Dose 1 TAB; Start 08/13/16 at 21:00 Metoprolol Tartrate (Lopressor) 12.5 mg BID PO Last administered on 09/09/16at 21:23; Admin Dose 12.5 MG; Start 08/13/16 at 21:00 Pregabalin (Lyrica) 50 mg TID PO Last administered on 09/10/16at 22:11; Admin Dose 50 MG; Start 08/13/16 at 21:00 Pyridoxine HCl (Vitamin B6) 100 mg DAILY PO Last administered on 09/10/16 09: 35; Admin Dose 100 MG; Start 08/14/16 at 09:00 Simethicone (Mylicon) 80 mg Q6H PRN PO INTESTINAL SPASMS/CRAMPING Last administered on 09/05/16at 18:54; Admin Dose 80 MG; Start 08/13/16 at 17:30 Vitamin E (Vitamin E) 400 units DAILY PO Last administered on 09/10/16 09:35 ; Admin Dose 400 UNITS; Start 08/14/16 at 09:00 Fluoxetine HCl (Prozac) 20 mg DAILY PO Last administered on 09/10/16at 09:36; Admin Dose 20 MG; Start 08/14/16 at 09:00 Miscellaneous Information 1 ea NOTE XX ; Start 08/13/16 at 18:00 Glucose (Glutose) 15 gm Q15M PRN PO DECREASED GLUCOSE; Start 08/13/16 at 18:00 Glucose (Glutose) 22.5 gm Q15M PRN PO DECREASED GLUCOSE; Start 08/13/16 at 18: 00 Dextrose (D50w Syringe) 25 ml Q15M PRN IV DECREASED GLUCOSE Last administered on 09/10/16at 09:18; Admin Dose 25 ML; Start 08/13/16 at 18:00 Dextrose (D50w Syringe) 50 ml Q15M PRN IV DECREASED GLUCOSE; Start 08/13/16 at 18:00 Glucagon (Glucagen) 1 mg Q15M PRN IM DECREASED GLUCOSE; Start 08/13/16 at 18: 00 Glucose (Glutose) 15 gm Q15M PRN BUCCAL DECREASED GLUCOSE; Start 08/13/16 at 18:00 Sodium Hypochlorite (Dakin'S (1/4 Strength)) 1 applic DAILY IRR Last administered on 09/10/16at 09:41; Admin Dose 1 APPLIC; Start 08/13/16 at 20:00 Acetaminophen/ Hydrocodone Bitart ([place] (5/325)) 2 tab Q6H PRN PO MODERATE PAIN LEVEL 4-6 Last administered on 09/06/16at 00:16; Admin Dose 2 TAB; Start 08/14/16 at 13:00 IV Flush (NS 10 ml) 10 ml PRN PRN IV IV PTOTOCOL; Start 08/14/16 at 17:00 Acetylcysteine (Nac) 600 mg BID PO Last administered on 09/10/16at 22:11; Admin Dose 600 MG; Start 08/16/16 at 21:00 Ondansetron HCl (Zofran Inj) 4 mg Q4H PRN IV NAUSEA AND/OR VOMITING; Start 08/16/16 at 12:30 Zolpidem Tartrate (Ambien) 10 mg HS PRN PO INSOMNIA Last administered on at 22:44; Admin Dose 10 MG; Start 08/16/16 at 21:00 Lorazepam (Ativan) 1 mg Q6 PRN PO ANXIETY Last administered on 08/25/16at 22:08 ; Admin Dose 1 MG; Start 08/18/16 at 14:30 Phenol (Cepastat Lozenge) 1 lozenge Q1H PRN MT DRY MOUTH Last administered on 08/20/16at 21:28; Admin Dose 1 LOZENGE; Start 08/20/16 at 20:30 Lorazepam (Ativan) 1 mg HS PRN PO ANXIETY, HELP WITH SLEEP Last administered on 09/05/16at 21:45; Admin Dose 1 MG; Start 08/22/16 at 18:30 Diphenhydramine HCl (Benadryl) 25 mg Q6H PRN PO ITCHING Last administered on at 16:17; Admin Dose 25 MG; Start 08/26/16 at 20:30 Famotidine (Pepcid) 20 mg DAILY PO Last administered on 09/10/16at 09:36; Admin Dose 20 MG; Start 09/03/16 at 09:00 Ferrous Sulfate 300 mg 300 mg BID PO Last administered on 09/10/16at 22:10; Admin Dose 300 MG; Start 09/06/16 at 21:00 Dextrose 1,000 ml @ 50 mls/hr Q20H IV Last administered on 09/10/16at 19:44; Admin Dose 50 MLS/HR; Start 09/07/16 at 13:00 Meropenem 500 mg/ Sodium Chloride 100 ml @ 200 mls/hr Q24H IVPB Last administered on 09/10/16at 09:48; Admin Dose 200 MLS/HR; Start 09/09/16 at 09: 00 Norepinephrine 16 mg/Dextrose 500 ml @ 1.87 mls/hr TITRATE IV ; Start at 08:00 Propofol (Diprivan) 100 ml @ 3.915 mls/ hr Q12H IV Last administered on at 06:06; Admin Dose 15.66 MLS/HR; Start 09/09/16 at 02:30 Lorazepam (Ativan) 2 mg Q4H PRN IV anxiety; Start 09/09/16 at 10:30 Heparin Sodium (Porcine) (Heparin (5000 Units/0.5 ml)) 5,000 unit Q8 SC Last administered on 09/11/16at 06:08; Admin Dose 5,000 UNIT; Start 09/09/16 at 22: 00 Fluconazole (Diflucan) 100 mg DAILY PO Last administered on 09/10/16at 15:50; Admin Dose 100 MG; Start 09/10/16 at 14:00 Insulin Aspart (Novolog Insulin Pen) NOVOLOG *MILD* ALGORI... Q4 SC ; Start at 01:00 Insulin Glargine (Lantus) 10 unit HS SC Last administered on 09/10/16at 22:27; Admin Dose 10 UNIT; Start 09/10/16 at 22:00 GIO BISHOP NP Sep 11, 2016 07:14
[2016-09-11 08:25] LABS: AADO2 Arterial 620.8 mmHg (7.0-24.0); Allen Test ACCEPTAB; Arterial Base Excess 3.5 mmol/L (-3.0-3); Arterial COHb 0.4 % (0.0-3.0); Arterial Fraction of Oxyhgb 84.2 % (93.0-99.0); Arterial HCO3 28.2 mmol/L (22.0-26.0); Arterial MetHb 0.3 % (0.0-1.5); Arterial Total Hemglobin 12.8 g/dl (12.0-18.0); MODE VENT - AC
[2016-09-11] MEDS ORDERED: POTASSIUM CHLORIDE 250 ML IVPB ONE (08:30)
[2016-09-11] MEDS: CALCIUM CARBONATE 500 MG CHEW TAB PO SCH ×3 (08:41→18:07)
[2016-09-11] MEDS: FERROUS SULFATE 60 MG/ML 5ML CUP PO SCH ×2 (08:41→20:26)
[2016-09-11] MEDS: FLUCONAZOLE 100 MG TAB PO SCH (08:41)
[2016-09-11] MEDS: ACETYLCYSTEINE 600 MG CAP PO SCH ×2 (08:41→20:26)
[2016-09-11] MEDS: ASPIRIN (EC) 81 MG TAB PO SCH (08:41)
[2016-09-11] MEDS: VITAMIN E 400 UNITS CAP PO SCH (08:41)
[2016-09-11] MEDS: CHOLECALCIFEROL 1,000 UNIT TAB PO SCH (08:42)
[2016-09-11] MEDS: ALLOPURINOL 100 MG TAB PO SCH (08:42)
[2016-09-11] MEDS: PYRIDOXINE 50 MG TAB PO SCH (08:42)
[2016-09-11] MEDS: ASCORBIC ACID 500 MG TAB PO SCH (08:42)
[2016-09-11] MEDS: FLUOXETINE 20 MG CAP PO SCH (08:42)
[2016-09-11] MEDS: PREGABALIN 25 MG CAP PO SCH ×3 (08:42→20:26)
[2016-09-11] MEDS: FAMOTIDINE 20 MG TAB PO SCH (08:42)
[2016-09-11] MEDS: FISH OIL 1,000 MG CAP PO SCH (08:42)
[2016-09-11] MEDS: LACTOBACILLUS CHEW TAB PO SCH ×3 (08:42→20:26)
[2016-09-11] MEDS: METOPROLOL 25 MG TAB PO SCH ×2 (08:43→20:27)
[2016-09-11] MEDS: SODIUM HYPOCHLORITE 0.125% 473 ML BTL IRR SCH (08:47)
[2016-09-11] MEDS: MEROPENEM 500 MG in SOD CHLORIDE 0.9% 100 ML IVPB SCH (08:47)
--- NOTE | 2016-09-11 11:25 | CONS ---
Date/Time of Note Date/Time of Note DATE: 09/11/16 TIME: 11:24 Assessment/Plan Assessment/Plan Additional Assessment/Plan 60 yo male with 1) Respiratory Failure 2) HCAP 3) LORNA on CKD, Currently on HD 4) Volume Overload, Anasarca 5) Pulm HTN 6) Morbid Obesity 7) Bilateral lower extremities acute on chronic cellulitis with left toe osteomyelitis. 8) Status post oxacillin-sensitive Staphylococcus aureus septicemia. Cont supportive care No acute indication for HD today Cont to monitor Electrolytes, UO and Renal function Will order Bumex Consultation Date/Type/Reason Admit Date/Time Aug 13, 2016 at 16:30 Initial Consult Date 08/13/16 Type of Consultation: Nephrology Referring Provider: KELLEN MEDINA MD 24 HR Interval Summary Free Text/Dictation S/p HD yesterday, -2l UF, Remains intubated Subjective hx not possible: pt critical status Exam/Review of Systems Vital Signs Vitals Vital Signs Date Time Temp Pulse Resp B/P Pulse Ox O2 Delivery O2 Flow Rate FiO2 09/11/16 09:15 76 18 97 60 09/11/16 08:00 97.9 99/63 Mechanical Ventilator Intake and Output 09/10/16 09/10/16 09/11/16 15:00 23:00 07:00 Intake Total 1110.94 ml 811.98 ml 834.34 ml Output Total 3600 ml 520 ml 220 ml Balance -2489.06 ml 291.98 ml 614.34 ml Exam Constitutional: No distress ENMT: intubated, mucosa pink and moist Respiratory: crackles/rales, diminished breath sounds Cardiovascular: edema, irregular rhythm Gastrointestinal: non-tender, soft 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: other (sedated) Skin: No diaphoresis Results Result Diagram: 09/11/16 0410 09/11/16 0410 Results 24 hrs Laboratory Tests Test 09/10/16 11:29 09/10/16 14:37 09/10/16 17:48 09/10/16 22:12 Bedside Glucose 71 76 77 107 Test 09/11/16 01:10 09/11/16 04:10 09/11/16 04:12 09/11/16 08:49 Bedside Glucose 128 115 121 Anion Gap 14 Basophils # 0.1 Basophils % 0.4 Blood Morphology Comment Blood Urea Nitrogen 51 H Calcium Level 7.3 L Carbon Dioxide Level 28 Chloride Level 97 Creatinine 1.71 H Eosinophils # 1.0 H Eosinophils % 8.5 H Glucose Level 98 Hematocrit 28.7 L Hemoglobin 9.3 L Lymphocytes # 0.7 L Lymphocytes % 5.9 L Magnesium Level 1.9 Mean Corpuscular Hemoglobin 25.5 L Mean Corpuscular Hemoglobin Concent 32.5 Mean Corpuscular Volume 78.4 L Mean Platelet Volume 8.9 Monocytes # 1.0 H Monocytes % 7.9 Neutrophils # 9.5 H Neutrophils % 77.3 H Nucleated Red Blood Cells # 0.0 Nucleated Red Blood Cells % 0.0 Phosphorus Level 4.8 Platelet Count 170 Potassium Level 3.4 L Red Blood Count 3.66 L Red Cell Distribution Width 22.5 H Sodium Level 136 White Blood Count 12.3 #H Medications Medications Current Medications Acetaminophen (Tylenol Tab) 650 mg Q6H PRN PO PAIN LEVEL 1-3 OR FEVER; Start 08/13/16 at 17:30 Acetaminophen/ Hydrocodone Bitart ([place] (5/325)) 1 tab Q6H PRN PO MODERATE PAIN LEVEL 4-6 Last administered on 08/30/16at 02:54; Admin Dose 1 TAB; Start 08/13/16 at 17:30 Morphine Sulfate (morphine) 2 mg Q4H PRN IV SEVERE PAIN LEVEL 7-10 Last administered on 09/03/16at 12:28; Admin Dose 2 MG; Start 08/13/16 at 17:30 Docusate Sodium (Colace) 100 mg Q12H PRN PO CONSTIPATION; Start 08/13/16 at 17 :30 Heparin Sodium (Porcine) (Heparin (5000 Units/0.5 ml)) 5,000 unit Q12 SC Last administered on 08/25/16at 21:01; Admin Dose 5,000 UNIT; Start 08/13/16 at 21: 00; Status Future Hold Allopurinol (Zyloprim) 100 mg DAILY PO Last administered on 09/11/16at 08:42; Admin Dose 100 MG; Start 08/14/16 at 09:00 Ascorbic Acid (Vitamin C) 500 mg DAILY PO Last administered on 09/11/16 08:42 ; Admin Dose 500 MG; Start 08/13/16 at 18:00 Aspirin (Halfprin) 81 mg DAILY PO Last administered on 09/11/16at 08:41; Admin Dose 81 MG; Start 08/14/16 at 09:00 Atorvastatin Calcium (Lipitor) 10 mg QHS PO Last administered on 09/10/16at 22: 10; Admin Dose 10 MG; Start 08/13/16 at 21:00 Cholecalciferol (Vitamin D) 1,000 unit DAILY PO Last administered on 08:42; Admin Dose 1,000 UNIT; Start 08/14/16 at 09:00 Fish Oil (Fish Oil) 1,000 mg DAILY PO Last administered on 09/11/16 08:42; Admin Dose 1,000 MG; Start 08/14/16 at 09:00 Lactobacillus Acidoph/Bulgaricus (Floranex) 1 tab TID PO Last administered on 09/11/16 08:42; Admin Dose 1 TAB; Start 08/13/16 at 21:00 Metoprolol Tartrate (Lopressor) 12.5 mg BID PO Last administered on 09/09/16at 21:23; Admin Dose 12.5 MG; Start 08/13/16 at 21:00 Pregabalin (Lyrica) 50 mg TID PO Last administered on 09/11/16 08:42; Admin Dose 50 MG; Start 08/13/16 at 21:00 Pyridoxine HCl (Vitamin B6) 100 mg DAILY PO Last administered on 09/11/16 08: 42; Admin Dose 100 MG; Start 08/14/16 at 09:00 Simethicone (Mylicon) 80 mg Q6H PRN PO INTESTINAL SPASMS/CRAMPING Last administered on 09/05/16at 18:54; Admin Dose 80 MG; Start 08/13/16 at 17:30 Vitamin E (Vitamin E) 400 units DAILY PO Last administered on 09/11/16 08:41 ; Admin Dose 400 UNITS; Start 08/14/16 at 09:00 Fluoxetine HCl (Prozac) 20 mg DAILY PO Last administered on 09/11/16 08:42; Admin Dose 20 MG; Start 08/14/16 at 09:00 Miscellaneous Information 1 ea NOTE XX ; Start 08/13/16 at 18:00 Glucose (Glutose) 15 gm Q15M PRN PO DECREASED GLUCOSE; Start 08/13/16 at 18:00 Glucose (Glutose) 22.5 gm Q15M PRN PO DECREASED GLUCOSE; Start 08/13/16 at 18: 00 Dextrose (D50w Syringe) 25 ml Q15M PRN IV DECREASED GLUCOSE Last administered on 09/10/16at 09:18; Admin Dose 25 ML; Start 08/13/16 at 18:00 Dextrose (D50w Syringe) 50 ml Q15M PRN IV DECREASED GLUCOSE; Start 08/13/16 at 18:00 Glucagon (Glucagen) 1 mg Q15M PRN IM DECREASED GLUCOSE; Start 08/13/16 at 18: 00 Glucose (Glutose) 15 gm Q15M PRN BUCCAL DECREASED GLUCOSE; Start 08/13/16 at 18:00 Sodium Hypochlorite (Dakin'S (1/4 Strength)) 1 applic DAILY IRR Last administered on 09/10/16at 09:41; Admin Dose 1 APPLIC; Start 08/13/16 at 20:00 Acetaminophen/ Hydrocodone Bitart ([place] (5/325)) 2 tab Q6H PRN PO MODERATE PAIN LEVEL 4-6 Last administered on 09/06/16at 00:16; Admin Dose 2 TAB; Start 08/14/16 at 13:00 IV Flush (NS 10 ml) 10 ml PRN PRN IV IV PTOTOCOL; Start 08/14/16 at 17:00 Acetylcysteine (Nac) 600 mg BID PO Last administered on 09/11/16at 08:41; Admin Dose 600 MG; Start 08/16/16 at 21:00 Ondansetron HCl (Zofran Inj) 4 mg Q4H PRN IV NAUSEA AND/OR VOMITING; Start 08/16/16 at 12:30 Zolpidem Tartrate (Ambien) 10 mg HS PRN PO INSOMNIA Last administered on at 22:44; Admin Dose 10 MG; Start 08/16/16 at 21:00 Lorazepam (Ativan) 1 mg Q6 PRN PO ANXIETY Last administered on 08/25/16at 22:08 ; Admin Dose 1 MG; Start 08/18/16 at 14:30 Phenol (Cepastat Lozenge) 1 lozenge Q1H PRN MT DRY MOUTH Last administered on 08/20/16at 21:28; Admin Dose 1 LOZENGE; Start 08/20/16 at 20:30 Lorazepam (Ativan) 1 mg HS PRN PO ANXIETY, HELP WITH SLEEP Last administered on 09/05/16 21:45; Admin Dose 1 MG; Start 08/22/16 at 18:30 Diphenhydramine HCl (Benadryl) 25 mg Q6H PRN PO ITCHING Last administered on at 16:17; Admin Dose 25 MG; Start 08/26/16 at 20:30 Famotidine (Pepcid) 20 mg DAILY PO Last administered on 09/11/16 08:42; Admin Dose 20 MG; Start 09/03/16 at 09:00 Ferrous Sulfate 300 mg 300 mg BID PO Last administered on 09/11/16 08:41; Admin Dose 300 MG; Start 09/06/16 at 21:00 Dextrose 1,000 ml @ 50 mls/hr Q20H IV Last administered on 09/10/16 19:44; Admin Dose 50 MLS/HR; Start 09/07/16 at 13:00 Meropenem 500 mg/ Sodium Chloride 100 ml @ 200 mls/hr Q24H IVPB Last administered on 09/11/16 08:47; Admin Dose 200 MLS/HR; Start 09/09/16 at 09: 00 Norepinephrine 16 mg/Dextrose 500 ml @ 1.87 mls/hr TITRATE IV ; Start at 08:00 Propofol (Diprivan) 100 ml @ 3.915 mls/ hr Q12H IV Last administered on at 06:06; Admin Dose 15.66 MLS/HR; Start 09/09/16 at 02:30 Lorazepam (Ativan) 2 mg Q4H PRN IV anxiety; Start 09/09/16 at 10:30 Heparin Sodium (Porcine) (Heparin (5000 Units/0.5 ml)) 5,000 unit Q8 SC Last administered on 09/11/16at 06:08; Admin Dose 5,000 UNIT; Start 09/09/16 at 22: 00 Fluconazole (Diflucan) 100 mg DAILY PO Last administered on 09/11/16 08:41; Admin Dose 100 MG; Start 09/10/16 at 14:00 Insulin Aspart (Novolog Insulin Pen) NOVOLOG *MILD* ALGORI... Q4 SC ; Start at 01:00 Insulin Glargine 10 unit 10 unit HS SC Last administered on 09/10/16at 22:27; Admin Dose 10 UNIT; Start 09/10/16 at 22:00 Potassium Chloride (KCl 40 MEQ/250 ML NS) 250 ml @ 62.5 mls/hr ONCE ONCE IVPB Last administered on 09/11/16at 08:41; Admin Dose 62.5 MLS/HR; Start at 08:30; Stop 09/11/16 at 12:29 DYAN FRANKLIN MD Sep 11, 2016 11:25
[2016-09-11] MEDS ORDERED: BUMETANIDE 1 MG INJ IV ONE (11:30)
--- NOTE | 2016-09-11 13:21 | PN ---
DATE: 09/11/2016 CARDIOLOGY FOLLOWUP SUBJECTIVE: Discussed with the staff. The patient remains in atrial fibrillation ____ intubated on the vent. Status post dialysis yesterday. Blood pressure has been on the low side but still not r equired to be on Levophed or any pressors yet. The patient remains intubated on the vent in the ICU , nonverbal. Discussed with the staff extensively. MEDICATIONS: Reviewed as per medical reconciliation, personally reviewed. PHYSICAL EXAMINATION: VITAL SIGNS: Temperature 97.9, heart rate of 74, blood pressure ____/63, respiration rate of 18. HEENT: Normocephalic, atraumatic. Obese gentleman. Pupils are equal. Status post intubation on t he vent. CARDIOVASCULAR: Irregularly irregular, systolic murmur. PULMONARY: Mild rhonchi, diffuse. GASTROINTESTINAL: Obese, soft, nontender. EXTREMITIES: Positive lower extremity edema with pressure dressing applied. NEUROLOGIC: Sedated. LABORATORY: WBC of 12.3, hemoglobin 9.3, platelets 170. Sodium 136, potassium 3.4, BUN of 51, crea tinine 1.71, glucose of 98. I's and O's show 2780 in and 1185 out. Weight is 151 kg recorded. ASSESSMENT AND PLAN: 1. Hypoxemic respiratory failure, status post intubation on the vent now. 2. Atrial fibrillation, appeared to be chronic and not anticoagulated. 3. History of severe pulmonary disease and pulmonary hypertension. 4. History of congestive heart failure. 5. Diastolic dysfunction. 6. Diabetes. 7. Hypotension and shock, now with history of hypertension in the past. 8. Morbid obesity. 9. Anemia. 10. Renal failure. RECOMMENDATIONS: Fluid management is being managed by a renal with the use of hemodialysis. Contin ue the vent support. Weaning as tolerated. ____as tolerated. The patient previously has been tra ched and may need to be trached again if needed. For now I have held off on anticoagulation due to his anemia as well as due to the fact the patient may need procedure including tracheostomy. If his H and H remains stable, we may consider anticoagulation. I will also order stool guaiac to see if there is any sign of GI bleed at all. Continue with the ICU care. Electrolytes including potassium to be replaced as per renal. We will continue to monitor him in ICU. More than 38 minutes of critical care time was spent managing this patient excluding any procedures. Dictated By: GARDENIA RAZO/GREGORY Conf#: [id number] DID#: [id number] CC: GIO BISHOP BAIT MAN;*EndCC*
--- NOTE | 2016-09-11 14:13 | CONS ---
Date/Time of Note Date/Time of Note DATE: 09/11/16 TIME: 14:09 Consult Date/Type/Reason Admit Date/Time Aug 13, 2016 at 16:30 Initial Consult Date 08/13/16 Type of Consultation: ID Ordering Provider: KELLEN MEDINA MD Subjective no fevers, intubated, sedated, nad Objective Vital Signs Date Time Temp Pulse Resp B/P Pulse Ox O2 Delivery O2 Flow Rate FiO2 09/11/16 12:00 84 09/11/16 09:15 18 97 60 09/11/16 08:00 97.9 99/63 Mechanical Ventilator Intake and Output 09/10/16 09/10/16 09/11/16 15:00 23:00 07:00 Intake Total 1110.94 ml 811.98 ml 834.34 ml Output Total 3600 ml 520 ml 220 ml Balance -2489.06 ml 291.98 ml 614.34 ml Results/Medications Result Diagram: 09/11/16 0410 09/11/16 0410 Results 24 hrs Laboratory Tests Test 09/10/16 14:37 09/10/16 17:48 09/10/16 22:12 09/11/16 01:10 Bedside Glucose 76 77 107 128 Test 09/11/16 04:10 09/11/16 04:12 09/11/16 08:49 09/11/16 12:49 Anion Gap 14 Basophils # 0.1 Basophils % 0.4 Blood Morphology Comment Blood Urea Nitrogen 51 H Calcium Level 7.3 L Carbon Dioxide Level 28 Chloride Level 97 Creatinine 1.71 H Eosinophils # 1.0 H Eosinophils % 8.5 H Glucose Level 98 Hematocrit 28.7 L Hemoglobin 9.3 L Lymphocytes # 0.7 L Lymphocytes % 5.9 L Magnesium Level 1.9 Mean Corpuscular Hemoglobin 25.5 L Mean Corpuscular Hemoglobin Concent 32.5 Mean Corpuscular Volume 78.4 L Mean Platelet Volume 8.9 Monocytes # 1.0 H Monocytes % 7.9 Neutrophils # 9.5 H Neutrophils % 77.3 H Nucleated Red Blood Cells # 0.0 Nucleated Red Blood Cells % 0.0 Phosphorus Level 4.8 Platelet Count 170 Potassium Level 3.4 L Red Blood Count 3.66 L Red Cell Distribution Width 22.5 H Sodium Level 136 White Blood Count 12.3 #H Bedside Glucose 115 121 137 Medications Current Medications Acetaminophen (Tylenol Tab) 650 mg Q6H PRN PO PAIN LEVEL 1-3 OR FEVER; Start 08/13/16 at 17:30 Acetaminophen/ Hydrocodone Bitart ([place] (5/325)) 1 tab Q6H PRN PO MODERATE PAIN LEVEL 4-6 Last administered on 08/30/16at 02:54; Admin Dose 1 TAB; Start 08/13/16 at 17:30 Morphine Sulfate (morphine) 2 mg Q4H PRN IV SEVERE PAIN LEVEL 7-10 Last administered on 09/03/16at 12:28; Admin Dose 2 MG; Start 08/13/16 at 17:30 Docusate Sodium (Colace) 100 mg Q12H PRN PO CONSTIPATION; Start 08/13/16 at 17 :30 Allopurinol (Zyloprim) 100 mg DAILY PO Last administered on 09/11/16 08:42; Admin Dose 100 MG; Start 08/14/16 at 09:00 Ascorbic Acid (Vitamin C) 500 mg DAILY PO Last administered on 09/11/16at 08:42 ; Admin Dose 500 MG; Start 08/13/16 at 18:00 Aspirin (Halfprin) 81 mg DAILY PO Last administered on 09/11/16 08:41; Admin Dose 81 MG; Start 08/14/16 at 09:00 Atorvastatin Calcium (Lipitor) 10 mg QHS PO Last administered on 09/10/16at 22: 10; Admin Dose 10 MG; Start 08/13/16 at 21:00 Cholecalciferol (Vitamin D) 1,000 unit DAILY PO Last administered on 08:42; Admin Dose 1,000 UNIT; Start 08/14/16 at 09:00 Fish Oil (Fish Oil) 1,000 mg DAILY PO Last administered on 09/11/16 08:42; Admin Dose 1,000 MG; Start 08/14/16 at 09:00 Lactobacillus Acidoph/Bulgaricus (Floranex) 1 tab TID PO Last administered on 09/11/16at 12:39; Admin Dose 1 TAB; Start 08/13/16 at 21:00 Metoprolol Tartrate (Lopressor) 12.5 mg BID PO Last administered on 09/09/16 21:23; Admin Dose 12.5 MG; Start 08/13/16 at 21:00 Pregabalin (Lyrica) 50 mg TID PO Last administered on 09/11/16at 12:39; Admin Dose 50 MG; Start 08/13/16 at 21:00 Pyridoxine HCl (Vitamin B6) 100 mg DAILY PO Last administered on 09/11/16at 08: 42; Admin Dose 100 MG; Start 08/14/16 at 09:00 Simethicone (Mylicon) 80 mg Q6H PRN PO INTESTINAL SPASMS/CRAMPING Last administered on 09/05/16at 18:54; Admin Dose 80 MG; Start 08/13/16 at 17:30 Vitamin E (Vitamin E) 400 units DAILY PO Last administered on 09/11/16at 08:41 ; Admin Dose 400 UNITS; Start 08/14/16 at 09:00 Fluoxetine HCl (Prozac) 20 mg DAILY PO Last administered on 09/11/16at 08:42; Admin Dose 20 MG; Start 08/14/16 at 09:00 Miscellaneous Information 1 ea NOTE XX ; Start 08/13/16 at 18:00 Glucose (Glutose) 15 gm Q15M PRN PO DECREASED GLUCOSE; Start 08/13/16 at 18:00 Glucose (Glutose) 22.5 gm Q15M PRN PO DECREASED GLUCOSE; Start 08/13/16 at 18: 00 Dextrose (D50w Syringe) 25 ml Q15M PRN IV DECREASED GLUCOSE Last administered on 09/10/16at 09:18; Admin Dose 25 ML; Start 08/13/16 at 18:00 Dextrose (D50w Syringe) 50 ml Q15M PRN IV DECREASED GLUCOSE; Start 08/13/16 at 18:00 Glucagon (Glucagen) 1 mg Q15M PRN IM DECREASED GLUCOSE; Start 08/13/16 at 18: 00 Glucose (Glutose) 15 gm Q15M PRN BUCCAL DECREASED GLUCOSE; Start 08/13/16 at 18:00 Sodium Hypochlorite (Dakin'S (1/4 Strength)) 1 applic DAILY IRR Last administered on 09/10/16at 09:41; Admin Dose 1 APPLIC; Start 08/13/16 at 20:00 Acetaminophen/ Hydrocodone Bitart ([place] (5/325)) 2 tab Q6H PRN PO MODERATE PAIN LEVEL 4-6 Last administered on 09/06/16at 00:16; Admin Dose 2 TAB; Start 08/14/16 at 13:00 IV Flush (NS 10 ml) 10 ml PRN PRN IV IV PTOTOCOL; Start 08/14/16 at 17:00 Acetylcysteine (Nac) 600 mg BID PO Last administered on 09/11/16at 08:41; Admin Dose 600 MG; Start 08/16/16 at 21:00 Ondansetron HCl (Zofran Inj) 4 mg Q4H PRN IV NAUSEA AND/OR VOMITING; Start 08/16/16 at 12:30 Zolpidem Tartrate (Ambien) 10 mg HS PRN PO INSOMNIA Last administered on at 22:44; Admin Dose 10 MG; Start 08/16/16 at 21:00 Lorazepam (Ativan) 1 mg Q6 PRN PO ANXIETY Last administered on 08/25/16at 22:08 ; Admin Dose 1 MG; Start 08/18/16 at 14:30 Phenol (Cepastat Lozenge) 1 lozenge Q1H PRN MT DRY MOUTH Last administered on 08/20/16at 21:28; Admin Dose 1 LOZENGE; Start 08/20/16 at 20:30 Lorazepam (Ativan) 1 mg HS PRN PO ANXIETY, HELP WITH SLEEP Last administered on 09/05/16at 21:45; Admin Dose 1 MG; Start 08/22/16 at 18:30 Diphenhydramine HCl (Benadryl) 25 mg Q6H PRN PO ITCHING Last administered on at 16:17; Admin Dose 25 MG; Start 08/26/16 at 20:30 Famotidine (Pepcid) 20 mg DAILY PO Last administered on 09/11/16at 08:42; Admin Dose 20 MG; Start 09/03/16 at 09:00 Ferrous Sulfate 300 mg 300 mg BID PO Last administered on 09/11/16 08:41; Admin Dose 300 MG; Start 09/06/16 at 21:00 Meropenem 500 mg/ Sodium Chloride 100 ml @ 200 mls/hr Q24H IVPB Last administered on 09/11/16at 08:47; Admin Dose 200 MLS/HR; Start 09/09/16 at 09: 00 Norepinephrine 16 mg/Dextrose 500 ml @ 1.87 mls/hr TITRATE IV ; Start 12/25/ 16 at 08:00 Propofol (Diprivan) 100 ml @ 3.915 mls/ hr Q12H IV Last administered on at 11:36; Admin Dose 11.745 MLS/HR; Start 09/09/16 at 02:30 Lorazepam (Ativan) 2 mg Q4H PRN IV anxiety; Start 09/09/16 at 10:30 Heparin Sodium (Porcine) (Heparin (5000 Units/0.5 ml)) 5,000 unit Q8 SC Last administered on 09/11/16at 06:08; Admin Dose 5,000 UNIT; Start 09/09/16 at 22: 00 Fluconazole (Diflucan) 100 mg DAILY PO Last administered on 09/11/16at 08:41; Admin Dose 100 MG; Start 09/10/16 at 14:00 Insulin Aspart (Novolog Insulin Pen) NOVOLOG *MILD* ALGORI... Q4 SC ; Start at 01:00 Insulin Glargine (Lantus) 10 unit HS SC Last administered on 09/10/16at 22:27; Admin Dose 10 UNIT; Start 09/10/16 at 22:00 Miscellaneous Information (*Rx Drug Level Order Reminder*) VANCO RANDOM LEVEL... ONCE ONCE XX ; Start 09/12/16 at 05:00; Stop 09/12/16 at 05:01 Assessment/Plan Chief Complaint/Hosp Course IINDWELLINGS: Right chest Perm-A-Cath, endotracheal tube, NG tube. PIC line placed on August 14, 2015. Micro: sputum cx + A. baumanii ANTIMICROBIALS: 1. Vancomycin. 2. Meropenem. 3. Diflucan PHYSICAL EXAMINATION: GENERAL: This is a morbidly obese middle-aged white man who is intubated, sedated and in no distress. HEENT: Head atraumatic, normocephalic. Sclera anicteric. Mucal mucosa dry. NECK: Supple. Trachea midline. CHEST: Rise symmetrical. Breath sound diminished at bases. HEART: S1, S2. ABDOMEN: Obese, soft. Bowel tones present. EXTREMITIES: With bilateral lower extremity JEANA wrapped. ASSESSMENT: 1. Acute on chronic respiratory failure, remains intubated. 2. Health care associated pneumonia with bilateral pleural effusions. 3. Status post oxacillin sensitive septicemia on admission. 4. Acute on chronic kidney disease, hemodialysis dependent now. 5. Bilateral lower extremity acute on chronic cellulitis with left toe osteomyelitis. 6. Coronary artery disease. PLAN: The patient remains unchanged. We are going to change Merrem to Colistin , f/u repeat blood cultures from PICC line, continue empiric antifungal coverage. DW staff Problems: JAMEY VAZQUEZ NP Sep 11, 2016 14:13
[2016-09-11] MEDS ORDERED: COLISTIMETHATE 75 MG in SOD CHLORIDE 0.9% 100 ML IVPB SCH (14:30)
[2016-09-11] MEDS: ATORVASTATIN 10 MG TAB PO SCH (20:26)
[2016-09-11] MEDS: INSULIN GLARGINE [LANtus] 3 ML PEN SC SCH (20:28)
[2016-09-12] VITALS (45 sets, daily range): BP systolic 87–113; BP diastolic 56–72; PULSE 70–85; RESP 16–26
[2016-09-12] MEDS: INSULIN ASPART [NOVOLOG] 3 ML PEN SC SCH ×6 (01:00→21:00)
[2016-09-12] MEDS: IPRATROPIUM (HFA) 12.9 GM INHALER INH SCH ×6 (01:08→21:20)
[2016-09-12] MEDS: ALBUTEROL HFA 8 GM INHALER INH SCH ×6 (01:08→21:21)
[2016-09-12] MEDS: PROPOFOL 100 ML IV SCH ×3 (01:40→19:10)
[2016-09-12 05:02] LABS: BASOPHILS % 0.3 % (0.0-2.0); EOSINOPHILS # 0.9 10^3/ul (0.0-0.5); EOSINOPHILS % 7.3 % (0.0-7.0); HEMATOCRIT 28.3 % (42.0-52.0); HEMOGLOBIN 9.1 g/dl (14.0-18.0); LYMPHOCYTES # 0.6 10^3/ul (0.8-2.9); LYMPHOCYTES % 5.4 % (15.0-51.0); MEAN CORPUSCULAR HGB CONC 32.2 g/dl (32.0-37.0); MEAN CORPUSCULAR VOLUME 77.8 fl (82.0-101.0); MEAN PLATELET VOLUME 9.1 fl (7.4-10.4); MONOCYTE # 0.9 10^3/ul (0.3-0.9); MONOCYTES % 7.9 % (0.0-11.0); NEUTROPHIL # 9.4 10^3/ul (1.6-7.5); NEUTROPHILS % 79.1 % (39.0-77.0); PLATELET COUNT 183 10^3/UL (140-440); RED BLOOD COUNT 3.64 10^6/ul (4.70-6.10); RED CELL DISTRIBUTION WIDTH 22.2 % (11.5-14.5); UNCORRECTED WBC 11.9 10^3/ul (4.8-10.8); WHITE BLOOD COUNT 11.9 10^3/ul (4.8-10.8)
[2016-09-12 05:10] LABS: CONDITION 1; LH ANALYZER COMMENTS 1
[2016-09-12 05:16] LABS: POTASSIUM 3.4 mmol/L (3.5-5.1)
[2016-09-12 05:18] LABS: CREATININE 1.67 mg/dl (0.61-1.24)
[2016-09-12 05:19] LABS: CALCIUM 7.2 mg/dl (8.4-10.2)
[2016-09-12 05:21] LABS: MAGNESIUM 1.8 mg/dl (1.7-2.5); PHOSPHORUS 4.4 mg/dl (2.5-4.9)
[2016-09-12] MEDS: HEPARIN 5,000 UNIT/0.5 ML SYG SC SCH ×3 (05:56→21:02)
[2016-09-12 06:17] LABS: AADO2 Arterial 420.9 mmHg (7.0-24.0); Allen Test ACCEPTAB; Arterial COHb 0.3 % (0.0-3.0); Arterial HCO3 27.6 mmol/L (22.0-26.0); Arterial MetHb 0.2 % (0.0-1.5); Arterial Total Hemglobin 10.3 g/dl (12.0-18.0); MODE VENT - AC
--- NOTE | 2016-09-12 07:05 | PN ---
Date/Time of Note Date/Time of Note DATE: 09/12/16 TIME: 07:04 Assessment/Plan VTE Prophylaxis VTE Prophylaxis Intervention: heparin Lines/Catheters IV Catheter Type (from Nrs): PICC Line Central line still needed: Yes Urinary Cath still in place: Yes Reason Cath still needed: terminal illness/intractable pain Assessment/Plan Chief Complaint/Hosp Course 1. Left great toe osteomyelitis. Continue antibiotics as per infectious disease. Status post evaluation by vascular surgery. 2. Acute on chronic respiratory failure, hypoxic and hypercapnic. S/P intubation on 09/06/2016 because of worsening respiratory distress. Continue noninvasive positive pressure ventilation. Continue inhaled bronchodilators. 3. Ventilator associated pneumonia. Sputum culture positive for Acinetobacter baumannii. ID on board. Antibiotics as per ID. 4. Pulmonary hypertension. Continue supplemental oxygen. 5. Acute on chronic kidney disease. The patient was newly started on hemodialysis. Nephrology following. 6. Congestive heart failure exacerbation. Acute on chronic diastolic dysfunction. Continue hemodialysis as per nephrology. 7. Type 2 diabetes mellitus. Hemoglobin A1c 5.8. Continue sliding scale insulin. 8. Essential hypertension. Continue antihypertensives. 9. Atrial fibrillation. Rate controlled. Cardiology following. Therapeutic anticoagulation will be deferred to cardiology. 10. Dyslipidemia. Continue statins. 11. Gout. Continue allopurinol. 12. Major depression. Continue selective serotonin reuptake inhibitors. 13. Morbid obesity with BMI of 42.5 kg/meter squared. 14. Fluid, electrolytes, and nutrition. Continue NGT feedings. 15. Deep vein thrombosis prophylaxis. Subcutaneous heparin. 16. Gastrointestinal prophylaxis. Histamine 2 blockers. PLAN: Replete potassium. Wean off ventilator as per pulmonary. Continue ICU monitoring. Case discussed with Dr. Tipton. Critical care time. 35 minutes. Problems: Subjective 24 Hr Interval Summary Free Text/Dictation Remains intubated. Exam/Review of Systems Vital Signs Vitals Vital Signs Date Time Temp Pulse Resp B/P Pulse Ox O2 Delivery O2 Flow Rate FiO2 09/12/16 05:29 80 20 100 80 09/12/16 05:00 100/59 Mechanical Ventilator 09/12/16 04:00 99.0 Intake and Output 09/11/16 09/11/16 09/12/16 15:00 23:00 07:00 Intake Total 793.960 ml 655.705 ml 532.215 ml Output Total 870 ml 420 ml 380 ml Balance -76.040 ml 235.705 ml 152.215 ml Exam GENERAL: This is a morbidly obese male sitting in a chair in mild respiratory distress with oxygen via nasal cannula. HEENT: Head normocephalic and atraumatic. Eyes: Anicteric sclerae. Conjunctivae clear. ENT: Nasal septum. Oral mucosa is dry. NECK: Supple. RESPIRATORY: Bilaterally diminished breath sounds. Fine rales. On AC mode ventilation. CARDIAC: Irregularly irregular rhythm. Systolic murmur. ABDOMEN: Soft, nontender, but protuberant. Bowel sounds hypoactive in all 4 quadrants. GENITOURINARY: Deferred. EXTREMITIES: Bilateral lower extremity 2+ edema. SKIN: Maculopapular rashes on B/L upper extremities. NEUROLOGIC: The patient is somnolent now. On propofol gtt. Results Result Diagram: 09/12/16 0415 09/12/16 0415 Results 24 hrs Laboratory Tests Test 09/11/16 08:49 09/11/16 12:49 09/11/16 17:18 09/11/16 20:25 Bedside Glucose 121 137 133 137 Test 09/12/16 01:39 09/12/16 04:15 09/12/16 05:55 09/12/16 06:00 Bedside Glucose 127 109 Anion Gap 14 Basophils # 0.0 Basophils % 0.3 Blood Morphology Comment Blood Urea Nitrogen 55 H Calcium Level 7.2 L Carbon Dioxide Level 29 Chloride Level 96 L Creatinine 1.67 H Eosinophils # 0.9 H Eosinophils % 7.3 H Glucose Level 115 Hematocrit 28.3 L Hemoglobin 9.1 L Lymphocytes # 0.6 L Lymphocytes % 5.4 L Magnesium Level 1.8 Mean Corpuscular Hemoglobin 25.0 L Mean Corpuscular Hemoglobin Concent 32.2 Mean Corpuscular Volume 77.8 L Mean Platelet Volume 9.1 Monocytes # 0.9 Monocytes % 7.9 Neutrophils # 9.4 H Neutrophils % 79.1 H Nucleated Red Blood Cells # 0.0 Nucleated Red Blood Cells % 0.0 Phosphorus Level 4.4 Platelet Count 183 Potassium Level 3.4 L Random Vancomycin Level 12.7 Red Blood Count 3.64 L Red Cell Distribution Width 22.2 H Sodium Level 136 White Blood Count 11.9 H Arterial Blood HCO3 27.6 H Arterial Blood Base Excess 3.0 Arterial Blood Oxygen Saturation 97.5 Khoi Test ACCEPTAB Arterial Blood Gas Puncture Site Right Radial Arterial Blood Carboxyhemoglobin 0.3 Arterial Blood Date Drawn 09/12/2016 5:50:30 AM Arterial Blood Methemoglobin 0.2 Arterial Blood pCO2 (Temp correct) 42.3 Arterial Blood pH (Temp corrected) 7.432 Arterial Blood pO2 (Temp corrected) 105.1 H Blood Gas A-a O2 Differential 420.9 H Blood Gas Actual Respiration Rate 18 Blood Gas Inspiratory Pressure 35.0 Blood Gas Low PEEP Setting 10.0 Blood Gas Modality VENT - AC Blood Gas Notified Time 09/12/2016 6:17:13 AM Blood Gas Notified Whom HG Blood Gas Respiration Rate 18.0 Blood Gas Specimen Source Blood arterial Blood Gas Temperature 37.0 Blood Gas Tidal Volume 600.0 FiO2 80.0 Oxyhemoglobin Percent 97.0 Total Hemoglobin 10.3 L Medications Medications Current Medications Acetaminophen (Tylenol Tab) 650 mg Q6H PRN PO PAIN LEVEL 1-3 OR FEVER; Start 08/13/16 at 17:30 Acetaminophen/ Hydrocodone Bitart ([place] (5/325)) 1 tab Q6H PRN PO MODERATE PAIN LEVEL 4-6 Last administered on 08/30/16at 02:54; Admin Dose 1 TAB; Start 08/13/16 at 17:30 Morphine Sulfate (morphine) 2 mg Q4H PRN IV SEVERE PAIN LEVEL 7-10 Last administered on 09/03/16at 12:28; Admin Dose 2 MG; Start 08/13/16 at 17:30 Docusate Sodium (Colace) 100 mg Q12H PRN PO CONSTIPATION; Start 08/13/16 at 17 :30 Allopurinol (Zyloprim) 100 mg DAILY PO Last administered on 09/11/16at 08:42; Admin Dose 100 MG; Start 08/14/16 at 09:00 Ascorbic Acid (Vitamin C) 500 mg DAILY PO Last administered on 09/11/16at 08:42 ; Admin Dose 500 MG; Start 08/13/16 at 18:00 Aspirin (Halfprin) 81 mg DAILY PO Last administered on 09/11/16at 08:41; Admin Dose 81 MG; Start 08/14/16 at 09:00 Atorvastatin Calcium (Lipitor) 10 mg QHS PO Last administered on 09/11/16at 20: 26; Admin Dose 10 MG; Start 08/13/16 at 21:00 Cholecalciferol (Vitamin D) 1,000 unit DAILY PO Last administered on 08:42; Admin Dose 1,000 UNIT; Start 08/14/16 at 09:00 Fish Oil (Fish Oil) 1,000 mg DAILY PO Last administered on 09/11/16 08:42; Admin Dose 1,000 MG; Start 08/14/16 at 09:00 Lactobacillus Acidoph/Bulgaricus (Floranex) 1 tab TID PO Last administered on 09/11/16 20:26; Admin Dose 1 TAB; Start 08/13/16 at 21:00 Metoprolol Tartrate (Lopressor) 12.5 mg BID PO Last administered on 09/11/16 20:27; Admin Dose 12.5 MG; Start 08/13/16 at 21:00 Pregabalin (Lyrica) 50 mg TID PO Last administered on 09/11/16 20:26; Admin Dose 50 MG; Start 08/13/16 at 21:00 Pyridoxine HCl (Vitamin B6) 100 mg DAILY PO Last administered on 09/11/16 08: 42; Admin Dose 100 MG; Start 08/14/16 at 09:00 Simethicone (Mylicon) 80 mg Q6H PRN PO INTESTINAL SPASMS/CRAMPING Last administered on 09/05/16 18:54; Admin Dose 80 MG; Start 08/13/16 at 17:30 Vitamin E (Vitamin E) 400 units DAILY PO Last administered on 09/11/16 08:41 ; Admin Dose 400 UNITS; Start 08/14/16 at 09:00 Fluoxetine HCl (Prozac) 20 mg DAILY PO Last administered on 09/11/16 08:42; Admin Dose 20 MG; Start 08/14/16 at 09:00 Miscellaneous Information 1 ea NOTE XX ; Start 08/13/16 at 18:00 Glucose (Glutose) 15 gm Q15M PRN PO DECREASED GLUCOSE; Start 08/13/16 at 18:00 Glucose (Glutose) 22.5 gm Q15M PRN PO DECREASED GLUCOSE; Start 08/13/16 at 18: 00 Dextrose (D50w Syringe) 25 ml Q15M PRN IV DECREASED GLUCOSE Last administered on 09/10/16 09:18; Admin Dose 25 ML; Start 11/28/16 at 18:00 Dextrose (D50w Syringe) 50 ml Q15M PRN IV DECREASED GLUCOSE; Start 08/13/16 at 18:00 Glucagon (Glucagen) 1 mg Q15M PRN IM DECREASED GLUCOSE; Start 08/13/16 at 18: 00 Glucose (Glutose) 15 gm Q15M PRN BUCCAL DECREASED GLUCOSE; Start 08/13/16 at 18:00 Sodium Hypochlorite (Dakin'S (1/4 Strength)) 1 applic DAILY IRR Last administered on 09/10/16at 09:41; Admin Dose 1 APPLIC; Start 08/13/16 at 20:00 Acetaminophen/ Hydrocodone Bitart ([place] (5/325)) 2 tab Q6H PRN PO MODERATE PAIN LEVEL 4-6 Last administered on 09/06/16at 00:16; Admin Dose 2 TAB; Start 08/14/16 at 13:00 IV Flush (NS 10 ml) 10 ml PRN PRN IV IV PTOTOCOL; Start 08/14/16 at 17:00 Acetylcysteine (Nac) 600 mg BID PO Last administered on 09/11/16at 20:26; Admin Dose 600 MG; Start 08/16/16 at 21:00 Ondansetron HCl (Zofran Inj) 4 mg Q4H PRN IV NAUSEA AND/OR VOMITING; Start 08/16/16 at 12:30 Zolpidem Tartrate (Ambien) 10 mg HS PRN PO INSOMNIA Last administered on at 22:44; Admin Dose 10 MG; Start 08/16/16 at 21:00 Lorazepam (Ativan) 1 mg Q6 PRN PO ANXIETY Last administered on 08/25/16at 22:08 ; Admin Dose 1 MG; Start 08/18/16 at 14:30 Phenol (Cepastat Lozenge) 1 lozenge Q1H PRN MT DRY MOUTH Last administered on 08/20/16at 21:28; Admin Dose 1 LOZENGE; Start 08/20/16 at 20:30 Lorazepam (Ativan) 1 mg HS PRN PO ANXIETY, HELP WITH SLEEP Last administered on 09/05/16at 21:45; Admin Dose 1 MG; Start 08/22/16 at 18:30 Diphenhydramine HCl (Benadryl) 25 mg Q6H PRN PO ITCHING Last administered on 16:17; Admin Dose 25 MG; Start 08/26/16 at 20:30 Famotidine (Pepcid) 20 mg DAILY PO Last administered on 09/11/16at 08:42; Admin Dose 20 MG; Start 09/03/16 at 09:00 Ferrous Sulfate 300 mg 300 mg BID PO Last administered on 09/11/16at 20:26; Admin Dose 300 MG; Start 09/06/16 at 21:00 Norepinephrine 16 mg/Dextrose 500 ml @ 1.87 mls/hr TITRATE IV ; Start at 08:00 Propofol (Diprivan) 100 ml @ 3.915 mls/ hr Q12H IV Last administered on 01:40; Admin Dose 11.745 MLS/HR; Start 09/09/16 at 02:30 Lorazepam (Ativan) 2 mg Q4H PRN IV anxiety; Start 09/09/16 at 10:30 Heparin Sodium (Porcine) (Heparin (5000 Units/0.5 ml)) 5,000 unit Q8 SC Last administered on 09/12/16at 05:56; Admin Dose 5,000 UNIT; Start 09/09/16 at 22: 00 Fluconazole (Diflucan) 100 mg DAILY PO Last administered on 09/11/16 08:41; Admin Dose 100 MG; Start 09/10/16 at 14:00 Insulin Aspart (Novolog Insulin Pen) NOVOLOG *MILD* ALGORI... Q4 SC ; Start at 01:00 Insulin Glargine 10 unit 10 unit HS SC Last administered on 09/11/16at 20:28; Admin Dose 10 UNIT; Start 09/10/16 at 22:00 Colistimethate Sodium/Sodium Chloride (Coly-Mycin/NS) 100 ml @ 50 mls/hr Q24H IVPB ; Start 09/12/16 at 16:00 GIO BISHOP NP Sep 12, 2016 07:05
[2016-09-12] MEDS ORDERED: DIPHENHYDRAMINE 25 MG CAP GTB PRN (08:30)
[2016-09-12] MEDS ORDERED: ACETAMINOPHEN 650MG/20.3ML CUP GTB PRN ×2 (08:30)
[2016-09-12] MEDS ORDERED: DOCUSATE SODIUM 10 MG/ML (10ML CUP) GTB PRN (08:30)
[2016-09-12] MEDS: METOPROLOL 25 MG TAB GTB SCH ×2 (08:57→20:59)
--- NOTE | 2016-09-12 08:57 | RADRPT ---
PROCEDURE: XR Chest. CLINICAL INDICATION: Respiratory failure TECHNIQUE: An AP view of the chest was obtained. COMPARISON: Chest x-ray dated 09/10/2016 FINDINGS: The endotracheal tube tip is approximately 5.0 cm above the nithin. The tip of the enteric tube ex tends below the left diaphragm. There is a right chest Perma-Cath with tip near the cavoatrial junct ion. There is a right upper extremity PICC line, the tip is not visualized. There are diffuse bilateral interstitial opacities. There is a small right pleural effusion. No foc al airspace opacification or pneumothorax is seen. The cardiomediastinal silhouette is mildly enla rged . Calcifications are seen within the aortic arch. The osseous structures demonstrate senescent changes. IMPRESSION: 1. Findings suggestive of interstitial edema with small right pleural effusion. No significant inte rval change. 2. Mild cardiomegaly and aortic atherosclerosis. 3. Tubes and lines, as described above. RPTAT: HH .Georgie Block MD, MD Date Time Electronically viewed and signed by .Georgie Block MD, on 09/12/2016 08:57 .G/
[2016-09-12] MEDS: ALLOPURINOL 100 MG TAB GTB SCH (08:58)
[2016-09-12] MEDS: FISH OIL 1,000 MG CAP PO SCH (08:58)
[2016-09-12] MEDS: FERROUS SULFATE 60 MG/ML 5ML CUP GTB SCH ×2 (08:58→20:58)
[2016-09-12] MEDS: LACTOBACILLUS CHEW TAB GTB SCH ×3 (08:58→20:59)
[2016-09-12] MEDS: FLUCONAZOLE 100 MG TAB GTB SCH (08:58)
[2016-09-12] MEDS: PREGABALIN 25 MG CAP GTB SCH ×3 (08:59→21:07)
[2016-09-12] MEDS: CALCIUM CARBONATE 500 MG CHEW TAB GTB SCH ×3 (08:59→19:10)
[2016-09-12] MEDS: ACETYLCYSTEINE 600 MG CAP GTB SCH ×2 (08:59→20:59)
[2016-09-12] MEDS: FAMOTIDINE 20 MG TAB GTB SCH (08:59)
[2016-09-12] MEDS: ASCORBIC ACID 500 MG TAB GTB SCH (08:59)
[2016-09-12] MEDS: PYRIDOXINE 50 MG TAB GTB SCH (08:59)
[2016-09-12] MEDS: CHOLECALCIFEROL 1,000 UNIT TAB GTB SCH (08:59)
[2016-09-12] MEDS: ASPIRIN 81 MG TAB GTB SCH (08:59)
[2016-09-12] MEDS ORDERED: POTASSIUM CHLORIDE 50 ML IVPB ONE (09:00)
[2016-09-12] MEDS: SODIUM HYPOCHLORITE 0.125% 473 ML BTL IRR SCH (09:00)
[2016-09-12] MEDS: VITAMIN E 400 UNITS CAP GTB SCH (09:03)
[2016-09-12] MEDS: FLUOXETINE 20 MG CAP GTB SCH (09:04)
--- NOTE | 2016-09-12 09:30 | PN ---
DATE: 09/12/2016 CARDIOLOGY FOLLOWUP PROGRESS NOTE SUBJECTIVE: Discussed with the staff, discussed with the physicians. The patient is intubated in t ICU. Still on the vent on the high oxygen, on 80% oxygen. Denies any pain to me. Is intubated. The patient's rhythm strip was reviewed, remains in atrial fibrillation. Heart rate overall has b een stable though. MEDICATIONS: Reviewed as per medication reconciliation, was personally reviewed. PHYSICAL EXAMINATION: VITAL SIGNS: Temperature 99, heart rate of 80, blood pressure 100/59, respiratory rate of 20, satur ating 100%. HEENT: Normocephalic, atraumatic. Pupils are equal and round. Status post intubation on the vent now. GENERAL: Obese gentleman, known to the vent. CARDIOVASCULAR: Irregularly irregular. Systolic murmur. PULMONARY: With mild rhonchi at the base. GASTROINTESTINAL: Obese, soft, nontender. No rebound or guarding. EXTREMITIES: Diffuse lower extremity edema. NEUROLOGIC: Awake and sedated, but responds appropriately. LABORATORY: WBC 11.9, hemoglobin 9.1, platelets of 183. Sodium 136, potassium 3.4, BUN of 55, crea tinine 1.67, glucose of 115. ABG shows pH of 7.4, pCO2 of 42, pO2 of 105. ASSESSMENT AND PLAN: 1. Hypoxemia Respiratory failure, status post intubation on the vent. 2. Atrial fibrillation, chronic, on heart rate control. Currently, not on anticoagulation due to s evere anemia, OB stool has been sent. 3. History of severe pulmonary hypertension. 4. Obesity hypoventilation syndrome. 5. History of congestive heart failure secondary to diastolic dysfunction. 6. Diabetes. 7. History of hypertension, currently hypotensive and in shock. 8. Renal failure, acute on chronic, status post multiple dialysis. 9. Morbid obesity. 10. Anemia. RECOMMENDATIONS: Electrolytes will be corrected and managed as per renal. The patient has been galen lyzed. Diuresis and dialysis as per renal again. Will continue antibiotic management, is being man aged as per ID's recommendations. The patient's heart rate is currently under good control. We kosta l continue with the current cardiac care. Aspirin will be continued for now. The patient is not fu lly anticoagulated due to the fact that he is anemic. OB stool has been sent, I do not have results back yet. If the OB stool is negative and the patient is not going to have any further procedures done, will consider addition of anticoagulation, possibly with Eliquis. For now, we will continue t o monitor him. Continue with the ICU care and vent support will be continued, managed as per nikos muro. More than 36 minutes critical time was spent in management and treating this patient excluding any p rocedures. Dictated By: GARDENIA NELSON MD AV/GREGORY Conf#: [id number] DID#: [id number] CC: GIO BISHOP ASSISTANT ADMINISTRATOR;*EndCC*
[2016-09-12] MEDS ORDERED: HYDROCODONE/APAP (5/325) TAB GTB PRN ×2 (11:30→13:00)
[2016-09-12] MEDS ORDERED: ACETAMINOPHEN 325 MG TAB GTB PRN (11:30)
[2016-09-12] MEDS ORDERED: VANCOMYCIN 2 GM in SOD CHLORIDE 0.9% 500 ML IVPB ONE (12:00)
--- NOTE | 2016-09-12 12:23 | CONS ---
Date/Time of Note Date/Time of Note DATE: 09/12/16 TIME: 12:19 Consult Date/Type/Reason Admit Date/Time Aug 13, 2016 at 16:30 Initial Consult Date 08/13/16 Type of Consultation: pulmonary Ordering Provider: KELLEN MEDINA MD Subjective Intubated on mechanical ventilation appears comfortable at rest Continues tube feeding Objective Vital Signs Date Time Temp Pulse Resp B/P Pulse Ox O2 Delivery O2 Flow Rate FiO2 09/12/16 12:05 75 22 97 70 09/12/16 11:00 87/62 Mechanical Ventilator 09/12/16 07:00 100.4 Intake and Output 09/11/16 09/11/16 09/12/16 15:00 23:00 07:00 Intake Total 793.960 ml 655.705 ml 593.960 ml Output Total 870 ml 420 ml 430 ml Balance -76.040 ml 235.705 ml 163.960 ml PHYSICAL EXAMINATION GENERAL: Elderly gentleman, intubated on mechanical ventilation, opens eyes and appears somewhat agitated. Orally intubated. VITAL SIGNS: see below. HEENT: Pupils equal, round, and reactive to light. CARDIAC: S1, S2, tachycardia. CHEST: Diminished air entry bilaterally. ABDOMEN: Mildly distended. No bowel sounds. EXTREMITIES: No cyanosis, clubbing, edema +2 NEUROLOGIC: No focal deficits. Results/Medications Result Diagram: 09/12/16 0415 09/12/16 0415 Results 24 hrs Chest x-ray Pulmonary edema Laboratory Tests Test 09/11/16 12:49 09/11/16 17:18 09/11/16 20:25 09/12/16 01:39 Bedside Glucose 137 133 137 127 Test 09/12/16 04:15 09/12/16 05:55 09/12/16 06:00 09/12/16 09:08 Anion Gap 14 Basophils # 0.0 Basophils % 0.3 Blood Morphology Comment Blood Urea Nitrogen 55 H Calcium Level 7.2 L Carbon Dioxide Level 29 Chloride Level 96 L Creatinine 1.67 H Eosinophils # 0.9 H Eosinophils % 7.3 H Glucose Level 115 Hematocrit 28.3 L Hemoglobin 9.1 L Lymphocytes # 0.6 L Lymphocytes % 5.4 L Magnesium Level 1.8 Mean Corpuscular Hemoglobin 25.0 L Mean Corpuscular Hemoglobin Concent 32.2 Mean Corpuscular Volume 77.8 L Mean Platelet Volume 9.1 Monocytes # 0.9 Monocytes % 7.9 Neutrophils # 9.4 H Neutrophils % 79.1 H Nucleated Red Blood Cells # 0.0 Nucleated Red Blood Cells % 0.0 Phosphorus Level 4.4 Platelet Count 183 Potassium Level 3.4 L Random Vancomycin Level 12.7 Red Blood Count 3.64 L Red Cell Distribution Width 22.2 H Sodium Level 136 White Blood Count 11.9 H Bedside Glucose 109 127 Arterial Blood HCO3 27.6 H Arterial Blood Base Excess 3.0 Arterial Blood Oxygen Saturation 97.5 Khoi Test ACCEPTAB Arterial Blood Gas Puncture Site Right Radial Arterial Blood Carboxyhemoglobin 0.3 Arterial Blood Date Drawn 09/12/2016 5:50:30 AM Arterial Blood Methemoglobin 0.2 Arterial Blood pCO2 (Temp correct) 42.3 Arterial Blood pH (Temp corrected) 7.432 Arterial Blood pO2 (Temp corrected) 105.1 H Blood Gas A-a O2 Differential 420.9 H Blood Gas Actual Respiration Rate 18 Blood Gas Inspiratory Pressure 35.0 Blood Gas Low PEEP Setting 10.0 Blood Gas Modality VENT - AC Blood Gas Notified Time 09/12/2016 6:17:13 AM Blood Gas Notified Whom HG Blood Gas Respiration Rate 18.0 Blood Gas Specimen Source Blood arterial Blood Gas Temperature 37.0 Blood Gas Tidal Volume 600.0 FiO2 80.0 Oxyhemoglobin Percent 97.0 Total Hemoglobin 10.3 L Medications Current Medications Morphine Sulfate (morphine) 2 mg Q4H PRN IV SEVERE PAIN LEVEL 7-10 Last administered on 09/03/16at 12:28; Admin Dose 2 MG; Start 08/13/16 at 17:30 Fish Oil (Fish Oil) 1,000 mg DAILY PO Last administered on 09/12/16at 08:58; Admin Dose 1,000 MG; Start 08/14/16 at 09:00 Miscellaneous Information 1 ea NOTE XX ; Start 08/13/16 at 18:00 Glucose (Glutose) 15 gm Q15M PRN PO DECREASED GLUCOSE; Start 08/13/16 at 18:00 Glucose (Glutose) 22.5 gm Q15M PRN PO DECREASED GLUCOSE; Start 08/13/16 at 18: 00 Dextrose (D50w Syringe) 25 ml Q15M PRN IV DECREASED GLUCOSE Last administered on 09/10/16at 09:18; Admin Dose 25 ML; Start 08/13/16 at 18:00 Dextrose (D50w Syringe) 50 ml Q15M PRN IV DECREASED GLUCOSE; Start 08/13/16 at 18:00 Glucagon (Glucagen) 1 mg Q15M PRN IM DECREASED GLUCOSE; Start 08/13/16 at 18: 00 Glucose (Glutose) 15 gm Q15M PRN BUCCAL DECREASED GLUCOSE; Start 08/13/16 at 18:00 Sodium Hypochlorite (Dakin'S (1/4 Strength)) 1 applic DAILY IRR Last administered on 09/12/16at 09:00; Admin Dose 1 APPLIC; Start 08/13/16 at 20:00 IV Flush (NS 10 ml) 10 ml PRN PRN IV IV PTOTOCOL; Start 08/14/16 at 17:00 Ondansetron HCl (Zofran Inj) 4 mg Q4H PRN IV NAUSEA AND/OR VOMITING; Start 08/16/16 at 12:30 Phenol 1 lozenge 1 lozenge Q1H PRN MT DRY MOUTH Last administered on 08/20/16at 21:28; Admin Dose 1 LOZENGE; Start 08/20/16 at 20:30 Norepinephrine 16 mg/Dextrose 500 ml @ 1.87 mls/hr TITRATE IV ; Start at 08:00 Propofol (Diprivan) 100 ml @ 3.915 mls/ hr Q12H IV Last administered on at 10:26; Admin Dose 11.745 MLS/HR; Start 09/09/16 at 02:30 Lorazepam (Ativan) 2 mg Q4H PRN IV anxiety; Start 09/09/16 at 10:30 Heparin Sodium (Porcine) (Heparin (5000 Units/0.5 ml)) 5,000 unit Q8 SC Last administered on 09/12/16at 05:56; Admin Dose 5,000 UNIT; Start 09/09/16 at 22: 00 Insulin Aspart (Novolog Insulin Pen) NOVOLOG *MILD* ALGORI... Q4 SC ; Start at 01:00 Insulin Glargine 10 unit 10 unit HS SC Last administered on 09/11/16at 20:28; Admin Dose 10 UNIT; Start 09/10/16 at 22:00 Colistimethate Sodium/Sodium Chloride (Coly-Mycin/NS) 100 ml @ 50 mls/hr Q24H IVPB ; Start 09/12/16 at 16:00 Acetylcysteine (Nac) 600 mg BID GTB Last administered on 09/12/16 08:59; Admin Dose 600 MG; Start 09/12/16 at 09:00 Allopurinol (Zyloprim) 100 mg DAILY GTB Last administered on 09/12/16 08:58; Admin Dose 100 MG; Start 09/12/16 at 09:00 Ascorbic Acid (Vitamin C) 500 mg DAILY GTB Last administered on 09/12/16 08: 59; Admin Dose 500 MG; Start 09/12/16 at 09:00 Atorvastatin Calcium (Lipitor) 10 mg QHS GTB ; Start 09/12/16 at 21:00 Cholecalciferol (Vitamin D) 1,000 unit DAILY GTB Last administered on 08:59; Admin Dose 1,000 UNIT; Start 09/12/16 at 09:00 Diphenhydramine HCl (Benadryl) 25 mg Q6H PRN GTB ITCHING; Start 09/12/16 at 08 :30 Famotidine (Pepcid) 20 mg DAILY GTB Last administered on 09/12/16 08:59; Admin Dose 20 MG; Start 09/12/16 at 09:00 Ferrous Sulfate (Feosol Liquid Cup) 300 mg BID GTB Last administered on 08:58; Admin Dose 300 MG; Start 09/12/16 at 09:00 Fluconazole (Diflucan) 100 mg DAILY GTB Last administered on 09/12/16 08:58; Admin Dose 100 MG; Start 09/12/16 at 09:00 Fluoxetine HCl (Prozac) 20 mg DAILY GTB Last administered on 09/12/16 09:04; Admin Dose 20 MG; Start 09/12/16 at 10:00 Lactobacillus Acidoph/Bulgaricus (Floranex) 1 tab TID GTB Last administered on 09/12/16 08:58; Admin Dose 1 TAB; Start 09/12/16 at 09:00 Metoprolol Tartrate (Lopressor) 12.5 mg BID GTB Last administered on 08:57; Admin Dose 12.5 MG; Start 09/12/16 at 09:00 Pregabalin (Lyrica) 50 mg TID GTB Last administered on 09/12/16at 08:59; Admin Dose 50 MG; Start 09/12/16 at 09:00 Pyridoxine HCl (Vitamin B6) 100 mg DAILY GTB Last administered on 09/12/16at 08 :59; Admin Dose 100 MG; Start 09/12/16 at 09:00 Vitamin E (Vitamin E) 400 units DAILY GTB Last administered on 09/12/16at 09:03 ; Admin Dose 400 UNITS; Start 09/12/16 at 10:00 Aspirin (Aspirin) 81 mg DAILY GTB Last administered on 09/12/16at 08:59; Admin Dose 81 MG; Start 09/12/16 at 09:00 Acetaminophen (Tylenol Liquid) 650 mg Q6H PRN GTB PAIN 1-3 OR TEMP; Start at 08:30 Acetaminophen/ Hydrocodone Bitart ([place] (5/325)) 1 tab Q6H PRN GTB MODERATE PAIN LEVEL 4-6; Start 09/12/16 at 11:30 Acetaminophen/ Hydrocodone Bitart ([place] (5/325)) 2 tab Q6H PRN GTB MODERATE PAIN LEVEL 4-6; Start 09/12/16 at 13:00 Lorazepam (Ativan) 1 mg Q6 PRN GTB ANXIETY; Start 09/12/16 at 08:30 Lorazepam (Ativan) 1 mg HS PRN GTB ANXIETY, HELP WITH SLEEP; Start 09/12/16 at 08:30 Simethicone (Mylicon) 80 mg Q6H PRN GTB INTESTINAL SPASMS/CRAMPING; Start at 11:30 Zolpidem Tartrate (Ambien) 10 mg HS PRN GTB INSOMNIA; Start 09/12/16 at 08:30 Docusate Sodium 100 mg 100 mg Q12 PRN GTB CONSTIPATION; Start 09/12/16 at 08: 30 Vancomycin HCl/ Sodium Chloride (Vancocin/NS) 500 ml @ 125 mls/hr ONCE ONCE IVPB Last administered on 09/12/16at 11:52; Admin Dose 125 MLS/HR; Start 09/12 at 12:00; Stop 09/12/16 at 15:59 Assessment/Plan Chief Complaint/Hosp Course Assessment and plan Assessment/Plan Chief Complaint/Hosp Course 1. . Acute on chronic respiratory failure, hypoxic and hypercapnic. S/P intubation on 09/06/2016 because of worsening respiratory distress. Continue mechanical ventilation not for weaning today 2. Left great toe osteomyelitis. Continue antibiotics as per infectious disease. 3..Pulmonary hypertension. Continue supplemental oxygen. 4. End-stage renal failure now on hemodialysis 5. Dysphagia continue tube feeding 6. Atrial fibrillation currently rate controlled Disposition continue current level of care Problems: EDNA BUSTILLO MD, [facility] Sep 12, 2016 12:23
--- NOTE | 2016-09-12 14:00 | CONS ---
Date/Time of Note Date/Time of Note DATE: 09/12/16 TIME: 13:58 Assessment/Plan Assessment/Plan Additional Assessment/Plan 60 yo male with 1) Respiratory Failure 2) HCAP 3) LORNA on CKD, Currently on HD 4) Volume Overload, Anasarca 5) Pulm HTN 6) Morbid Obesity 7) Bilateral lower extremities acute on chronic cellulitis with left toe osteomyelitis. 8) Status post oxacillin-sensitive Staphylococcus aureus septicemia. On Dry UF session, tolerated procedure, Stable cont current treatment Con supportive care Consultation Date/Type/Reason Admit Date/Time Aug 13, 2016 at 16:30 Initial Consult Date 08/13/16 Type of Consultation: Nephrology Referring Provider: KELLEN MEDINA MD 24 HR Interval Summary Free Text/Dictation Seen and examined on HD, Pt remains intubated and sedated Subjective hx not possible: pt critical status Constitutional: requiring O2 Exam/Review of Systems Vital Signs Vitals Vital Signs Date Time Temp Pulse Resp B/P Pulse Ox O2 Delivery O2 Flow Rate FiO2 09/12/16 13:07 78 09/12/16 12:30 20 09/12/16 12:05 97 70 09/12/16 11:00 87/62 Mechanical Ventilator 09/12/16 07:00 100.4 Intake and Output 09/11/16 09/11/16 09/12/16 15:00 23:00 07:00 Intake Total 793.960 ml 655.705 ml 593.960 ml Output Total 870 ml 420 ml 430 ml Balance -76.040 ml 235.705 ml 163.960 ml Exam Constitutional: No distress ENMT: intubated, mucosa pink and moist Respiratory: crackles/rales, diminished breath sounds Cardiovascular: edema, irregular rhythm Gastrointestinal: distended, soft, No rebound or guarding 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: other (sedated) Skin: No diaphoresis Results Result Diagram: 09/12/16 0415 09/12/16 0415 Results 24 hrs Laboratory Tests Test 09/11/16 17:18 09/11/16 20:25 09/12/16 01:39 09/12/16 04:15 Bedside Glucose 133 137 127 Anion Gap 14 Basophils # 0.0 Basophils % 0.3 Blood Morphology Comment Blood Urea Nitrogen 55 H Calcium Level 7.2 L Carbon Dioxide Level 29 Chloride Level 96 L Creatinine 1.67 H Eosinophils # 0.9 H Eosinophils % 7.3 H Glucose Level 115 Hematocrit 28.3 L Hemoglobin 9.1 L Lymphocytes # 0.6 L Lymphocytes % 5.4 L Magnesium Level 1.8 Mean Corpuscular Hemoglobin 25.0 L Mean Corpuscular Hemoglobin Concent 32.2 Mean Corpuscular Volume 77.8 L Mean Platelet Volume 9.1 Monocytes # 0.9 Monocytes % 7.9 Neutrophils # 9.4 H Neutrophils % 79.1 H Nucleated Red Blood Cells # 0.0 Nucleated Red Blood Cells % 0.0 Phosphorus Level 4.4 Platelet Count 183 Potassium Level 3.4 L Random Vancomycin Level 12.7 Red Blood Count 3.64 L Red Cell Distribution Width 22.2 H Sodium Level 136 White Blood Count 11.9 H Test 09/12/16 05:55 09/12/16 06:00 09/12/16 09:08 09/12/16 12:21 Bedside Glucose 109 127 116 Arterial Blood HCO3 27.6 H Arterial Blood Base Excess 3.0 Arterial Blood Oxygen Saturation 97.5 Khoi Test ACCEPTAB Arterial Blood Gas Puncture Site Right Radial Arterial Blood Carboxyhemoglobin 0.3 Arterial Blood Date Drawn 09/12/2016 5:50:30 AM Arterial Blood Methemoglobin 0.2 Arterial Blood pCO2 (Temp correct) 42.3 Arterial Blood pH (Temp corrected) 7.432 Arterial Blood pO2 (Temp corrected) 105.1 H Blood Gas A-a O2 Differential 420.9 H Blood Gas Actual Respiration Rate 18 Blood Gas Inspiratory Pressure 35.0 Blood Gas Low PEEP Setting 10.0 Blood Gas Modality VENT - AC Blood Gas Notified Time 09/12/2016 6:17:13 AM Blood Gas Notified Whom HG Blood Gas Respiration Rate 18.0 Blood Gas Specimen Source Blood arterial Blood Gas Temperature 37.0 Blood Gas Tidal Volume 600.0 FiO2 80.0 Oxyhemoglobin Percent 97.0 Total Hemoglobin 10.3 L Medications Medications Current Medications Morphine Sulfate (morphine) 2 mg Q4H PRN IV SEVERE PAIN LEVEL 7-10 Last administered on 09/03/16at 12:28; Admin Dose 2 MG; Start 08/13/16 at 17:30 Fish Oil (Fish Oil) 1,000 mg DAILY PO Last administered on 09/12/16at 08:58; Admin Dose 1,000 MG; Start 08/14/16 at 09:00 Miscellaneous Information 1 ea NOTE XX ; Start 08/13/16 at 18:00 Glucose (Glutose) 15 gm Q15M PRN PO DECREASED GLUCOSE; Start 08/13/16 at 18:00 Glucose (Glutose) 22.5 gm Q15M PRN PO DECREASED GLUCOSE; Start 08/13/16 at 18: 00 Dextrose (D50w Syringe) 25 ml Q15M PRN IV DECREASED GLUCOSE Last administered on 09/10/16at 09:18; Admin Dose 25 ML; Start 08/13/16 at 18:00 Dextrose (D50w Syringe) 50 ml Q15M PRN IV DECREASED GLUCOSE; Start 08/13/16 at 18:00 Glucagon (Glucagen) 1 mg Q15M PRN IM DECREASED GLUCOSE; Start 08/13/16 at 18: 00 Glucose (Glutose) 15 gm Q15M PRN BUCCAL DECREASED GLUCOSE; Start 08/13/16 at 18:00 Sodium Hypochlorite (Dakin'S (1/4 Strength)) 1 applic DAILY IRR Last administered on 09/12/16at 09:00; Admin Dose 1 APPLIC; Start 08/13/16 at 20:00 IV Flush (NS 10 ml) 10 ml PRN PRN IV IV PTOTOCOL; Start 08/14/16 at 17:00 Ondansetron HCl (Zofran Inj) 4 mg Q4H PRN IV NAUSEA AND/OR VOMITING; Start 08/16/16 at 12:30 Phenol 1 lozenge 1 lozenge Q1H PRN MT DRY MOUTH Last administered on 08/20/16at 21:28; Admin Dose 1 LOZENGE; Start 08/20/16 at 20:30 Norepinephrine 16 mg/Dextrose 500 ml @ 1.87 mls/hr TITRATE IV ; Start at 08:00 Propofol (Diprivan) 100 ml @ 3.915 mls/ hr Q12H IV Last administered on at 10:26; Admin Dose 11.745 MLS/HR; Start 09/09/16 at 02:30 Lorazepam (Ativan) 2 mg Q4H PRN IV anxiety; Start 09/09/16 at 10:30 Heparin Sodium (Porcine) (Heparin (5000 Units/0.5 ml)) 5,000 unit Q8 SC Last administered on 09/12/16at 05:56; Admin Dose 5,000 UNIT; Start 09/09/16 at 22: 00 Insulin Aspart (Novolog Insulin Pen) NOVOLOG *MILD* ALGORI... Q4 SC ; Start at 01:00 Insulin Glargine 10 unit 10 unit HS SC Last administered on 09/11/16at 20:28; Admin Dose 10 UNIT; Start 09/10/16 at 22:00 Colistimethate Sodium/Sodium Chloride (Coly-Mycin/NS) 100 ml @ 50 mls/hr Q24H IVPB ; Start 09/12/16 at 16:00 Acetylcysteine (Nac) 600 mg BID GTB Last administered on 09/12/16at 08:59; Admin Dose 600 MG; Start 09/12/16 at 09:00 Allopurinol (Zyloprim) 100 mg DAILY GTB Last administered on 09/12/16 08:58; Admin Dose 100 MG; Start 09/12/16 at 09:00 Ascorbic Acid (Vitamin C) 500 mg DAILY GTB Last administered on 09/12/16at 08: 59; Admin Dose 500 MG; Start 09/12/16 at 09:00 Atorvastatin Calcium (Lipitor) 10 mg QHS GTB ; Start 09/12/16 at 21:00 Cholecalciferol (Vitamin D) 1,000 unit DAILY GTB Last administered on at 08:59; Admin Dose 1,000 UNIT; Start 09/12/16 at 09:00 Diphenhydramine HCl (Benadryl) 25 mg Q6H PRN GTB ITCHING; Start 09/12/16 at 08 :30 Famotidine (Pepcid) 20 mg DAILY GTB Last administered on 09/12/16at 08:59; Admin Dose 20 MG; Start 09/12/16 at 09:00 Ferrous Sulfate (Feosol Liquid Cup) 300 mg BID GTB Last administered on 08:58; Admin Dose 300 MG; Start 09/12/16 at 09:00 Fluconazole (Diflucan) 100 mg DAILY GTB Last administered on 09/12/16 08:58; Admin Dose 100 MG; Start 09/12/16 at 09:00 Fluoxetine HCl (Prozac) 20 mg DAILY GTB Last administered on 09/12/16at 09:04; Admin Dose 20 MG; Start 09/12/16 at 10:00 Lactobacillus Acidoph/Bulgaricus (Floranex) 1 tab TID GTB Last administered on 09/12/16at 08:58; Admin Dose 1 TAB; Start 09/12/16 at 09:00 Metoprolol Tartrate (Lopressor) 12.5 mg BID GTB Last administered on at 08:57; Admin Dose 12.5 MG; Start 09/12/16 at 09:00 Pregabalin (Lyrica) 50 mg TID GTB Last administered on 09/12/16at 08:59; Admin Dose 50 MG; Start 09/12/16 at 09:00 Pyridoxine HCl (Vitamin B6) 100 mg DAILY GTB Last administered on 09/12/16at 08 :59; Admin Dose 100 MG; Start 09/12/16 at 09:00 Vitamin E (Vitamin E) 400 units DAILY GTB Last administered on 09/12/16at 09:03 ; Admin Dose 400 UNITS; Start 09/12/16 at 10:00 Aspirin (Aspirin) 81 mg DAILY GTB Last administered on 09/12/16at 08:59; Admin Dose 81 MG; Start 09/12/16 at 09:00 Acetaminophen (Tylenol Liquid) 650 mg Q6H PRN GTB PAIN 1-3 OR TEMP; Start at 08:30 Acetaminophen/ Hydrocodone Bitart ([place] (5/325)) 1 tab Q6H PRN GTB MODERATE PAIN LEVEL 4-6; Start 09/12/16 at 11:30 Acetaminophen/ Hydrocodone Bitart ([place] (5/325)) 2 tab Q6H PRN GTB MODERATE PAIN LEVEL 4-6; Start 09/12/16 at 13:00 Lorazepam (Ativan) 1 mg Q6 PRN GTB ANXIETY; Start 09/12/16 at 08:30 Lorazepam (Ativan) 1 mg HS PRN GTB ANXIETY, HELP WITH SLEEP; Start 09/12/16 at 08:30 Simethicone (Mylicon) 80 mg Q6H PRN GTB INTESTINAL SPASMS/CRAMPING; Start at 11:30 Zolpidem Tartrate (Ambien) 10 mg HS PRN GTB INSOMNIA; Start 09/12/16 at 08:30 Docusate Sodium 100 mg 100 mg Q12 PRN GTB CONSTIPATION; Start 09/12/16 at 08: 30 Vancomycin HCl/ Sodium Chloride (Vancocin/NS) 500 ml @ 125 mls/hr ONCE ONCE IVPB Last administered on 09/12/16at 11:52; Admin Dose 125 MLS/HR; Start 09/12 at 12:00; Stop 09/12/16 at 15:59 Procedures Procedures PROCEDURE: XR Chest. CLINICAL INDICATION: Respiratory failure TECHNIQUE: An AP view of the chest was obtained. COMPARISON: Chest x-ray dated 09/10/2016 FINDINGS: The endotracheal tube tip is approximately 5.0 cm above the nithin. The tip of the enteric tube extends below the left diaphragm. There is a right chest Perma-Cath with tip near the cavoatrial junction. There is a right upper extremity PICC line, the tip is not visualized. There are diffuse bilateral interstitial opacities. There is a small right pleural effusion. No focal airspace opacification or pneumothorax is seen. The cardiomediastinal silhouette is mildly enlarged . Calcifications are seen within the aortic arch. The osseous structures demonstrate senescent changes. IMPRESSION: 1. Findings suggestive of interstitial edema with small right pleural effusion. No significant interval change. 2. Mild cardiomegaly and aortic atherosclerosis. 3. Tubes and lines, as described above. DYAN FRANKLIN MD Sep 12, 2016 14:00
--- NOTE | 2016-09-12 14:02 | CONS ---
Date/Time of Note Date/Time of Note DATE: 09/12/16 TIME: 14:00 Consult Date/Type/Reason Admit Date/Time Aug 13, 2016 at 16:30 Initial Consult Date 08/13/16 Type of Consultation: ID Ordering Provider: KELLEN MEDINA MD Subjective events noted, low grade temp, sedated, comfortable on vent Objective Vital Signs Date Time Temp Pulse Resp B/P Pulse Ox O2 Delivery O2 Flow Rate FiO2 09/12/16 13:59 81 09/12/16 12:30 20 09/12/16 12:05 97 70 09/12/16 11:00 87/62 Mechanical Ventilator 09/12/16 07:00 100.4 Intake and Output 09/11/16 09/11/16 09/12/16 14:59 22:59 06:59 Intake Total 782.215 ml 655.705 ml 593.960 ml Output Total 770 ml 470 ml 430 ml Balance 12.215 ml 185.705 ml 163.960 ml Results/Medications Result Diagram: 09/12/16 0415 09/12/16 0415 Results 24 hrs Laboratory Tests Test 09/11/16 17:18 09/11/16 20:25 09/12/16 01:39 09/12/16 04:15 Bedside Glucose 133 137 127 Anion Gap 14 Basophils # 0.0 Basophils % 0.3 Blood Morphology Comment Blood Urea Nitrogen 55 H Calcium Level 7.2 L Carbon Dioxide Level 29 Chloride Level 96 L Creatinine 1.67 H Eosinophils # 0.9 H Eosinophils % 7.3 H Glucose Level 115 Hematocrit 28.3 L Hemoglobin 9.1 L Lymphocytes # 0.6 L Lymphocytes % 5.4 L Magnesium Level 1.8 Mean Corpuscular Hemoglobin 25.0 L Mean Corpuscular Hemoglobin Concent 32.2 Mean Corpuscular Volume 77.8 L Mean Platelet Volume 9.1 Monocytes # 0.9 Monocytes % 7.9 Neutrophils # 9.4 H Neutrophils % 79.1 H Nucleated Red Blood Cells # 0.0 Nucleated Red Blood Cells % 0.0 Phosphorus Level 4.4 Platelet Count 183 Potassium Level 3.4 L Random Vancomycin Level 12.7 Red Blood Count 3.64 L Red Cell Distribution Width 22.2 H Sodium Level 136 White Blood Count 11.9 H Test 09/12/16 05:55 09/12/16 06:00 09/12/16 09:08 09/12/16 12:21 Bedside Glucose 109 127 116 Arterial Blood HCO3 27.6 H Arterial Blood Base Excess 3.0 Arterial Blood Oxygen Saturation 97.5 Khoi Test ACCEPTAB Arterial Blood Gas Puncture Site Right Radial Arterial Blood Carboxyhemoglobin 0.3 Arterial Blood Date Drawn 09/12/2016 5:50:30 AM Arterial Blood Methemoglobin 0.2 Arterial Blood pCO2 (Temp correct) 42.3 Arterial Blood pH (Temp corrected) 7.432 Arterial Blood pO2 (Temp corrected) 105.1 H Blood Gas A-a O2 Differential 420.9 H Blood Gas Actual Respiration Rate 18 Blood Gas Inspiratory Pressure 35.0 Blood Gas Low PEEP Setting 10.0 Blood Gas Modality VENT - AC Blood Gas Notified Time 09/12/2016 6:17:13 AM Blood Gas Notified Whom HG Blood Gas Respiration Rate 18.0 Blood Gas Specimen Source Blood arterial Blood Gas Temperature 37.0 Blood Gas Tidal Volume 600.0 FiO2 80.0 Oxyhemoglobin Percent 97.0 Total Hemoglobin 10.3 L Medications Current Medications Morphine Sulfate (morphine) 2 mg Q4H PRN IV SEVERE PAIN LEVEL 7-10 Last administered on 09/03/16at 12:28; Admin Dose 2 MG; Start 08/13/16 at 17:30 Fish Oil (Fish Oil) 1,000 mg DAILY PO Last administered on 09/12/16at 08:58; Admin Dose 1,000 MG; Start 08/14/16 at 09:00 Miscellaneous Information 1 ea NOTE XX ; Start 08/13/16 at 18:00 Glucose (Glutose) 15 gm Q15M PRN PO DECREASED GLUCOSE; Start 08/13/16 at 18:00 Glucose (Glutose) 22.5 gm Q15M PRN PO DECREASED GLUCOSE; Start 08/13/16 at 18: 00 Dextrose (D50w Syringe) 25 ml Q15M PRN IV DECREASED GLUCOSE Last administered on 09/10/16at 09:18; Admin Dose 25 ML; Start 08/13/16 at 18:00 Dextrose (D50w Syringe) 50 ml Q15M PRN IV DECREASED GLUCOSE; Start 08/13/16 at 18:00 Glucagon (Glucagen) 1 mg Q15M PRN IM DECREASED GLUCOSE; Start 08/13/16 at 18: 00 Glucose (Glutose) 15 gm Q15M PRN BUCCAL DECREASED GLUCOSE; Start 08/13/16 at 18:00 Sodium Hypochlorite (Dakin'S (1/4 Strength)) 1 applic DAILY IRR Last administered on 09/12/16at 09:00; Admin Dose 1 APPLIC; Start 08/13/16 at 20:00 IV Flush (NS 10 ml) 10 ml PRN PRN IV IV PTOTOCOL; Start 08/14/16 at 17:00 Ondansetron HCl (Zofran Inj) 4 mg Q4H PRN IV NAUSEA AND/OR VOMITING; Start 08/16/16 at 12:30 Phenol 1 lozenge 1 lozenge Q1H PRN MT DRY MOUTH Last administered on 08/20/16at 21:28; Admin Dose 1 LOZENGE; Start 08/20/16 at 20:30 Norepinephrine 16 mg/Dextrose 500 ml @ 1.87 mls/hr TITRATE IV ; Start at 08:00 Propofol (Diprivan) 100 ml @ 3.915 mls/ hr Q12H IV Last administered on at 10:26; Admin Dose 11.745 MLS/HR; Start 09/09/16 at 02:30 Lorazepam (Ativan) 2 mg Q4H PRN IV anxiety; Start 09/09/16 at 10:30 Heparin Sodium (Porcine) (Heparin (5000 Units/0.5 ml)) 5,000 unit Q8 SC Last administered on 09/12/16at 05:56; Admin Dose 5,000 UNIT; Start 09/09/16 at 22: 00 Insulin Aspart (Novolog Insulin Pen) NOVOLOG *MILD* ALGORI... Q4 SC ; Start at 01:00 Insulin Glargine 10 unit 10 unit HS SC Last administered on 09/11/16at 20:28; Admin Dose 10 UNIT; Start 09/10/16 at 22:00 Colistimethate Sodium/Sodium Chloride (Coly-Mycin/NS) 100 ml @ 50 mls/hr Q24H IVPB ; Start 09/12/16 at 16:00 Acetylcysteine (Nac) 600 mg BID GTB Last administered on 09/12/16at 08:59; Admin Dose 600 MG; Start 09/12/16 at 09:00 Allopurinol (Zyloprim) 100 mg DAILY GTB Last administered on 09/12/16 08:58; Admin Dose 100 MG; Start 09/12/16 at 09:00 Ascorbic Acid (Vitamin C) 500 mg DAILY GTB Last administered on 09/12/16 08: 59; Admin Dose 500 MG; Start 09/12/16 at 09:00 Atorvastatin Calcium (Lipitor) 10 mg QHS GTB ; Start 09/12/16 at 21:00 Cholecalciferol (Vitamin D) 1,000 unit DAILY GTB Last administered on 08:59; Admin Dose 1,000 UNIT; Start 09/12/16 at 09:00 Diphenhydramine HCl (Benadryl) 25 mg Q6H PRN GTB ITCHING; Start 09/12/16 at 08 :30 Famotidine (Pepcid) 20 mg DAILY GTB Last administered on 09/12/16 08:59; Admin Dose 20 MG; Start 09/12/16 at 09:00 Ferrous Sulfate (Feosol Liquid Cup) 300 mg BID GTB Last administered on 08:58; Admin Dose 300 MG; Start 09/12/16 at 09:00 Fluconazole (Diflucan) 100 mg DAILY GTB Last administered on 09/12/16 08:58; Admin Dose 100 MG; Start 09/12/16 at 09:00 Fluoxetine HCl (Prozac) 20 mg DAILY GTB Last administered on 09/12/16 09:04; Admin Dose 20 MG; Start 09/12/16 at 10:00 Lactobacillus Acidoph/Bulgaricus (Floranex) 1 tab TID GTB Last administered on 09/12/16 08:58; Admin Dose 1 TAB; Start 09/12/16 at 09:00 Metoprolol Tartrate (Lopressor) 12.5 mg BID GTB Last administered on 08:57; Admin Dose 12.5 MG; Start 09/12/16 at 09:00 Pregabalin (Lyrica) 50 mg TID GTB Last administered on 09/12/16 08:59; Admin Dose 50 MG; Start 09/12/16 at 09:00 Pyridoxine HCl (Vitamin B6) 100 mg DAILY GTB Last administered on 09/12/16 08 :59; Admin Dose 100 MG; Start 09/12/16 at 09:00 Vitamin E (Vitamin E) 400 units DAILY GTB Last administered on 09/12/16at 09:03 ; Admin Dose 400 UNITS; Start 09/12/16 at 10:00 Aspirin (Aspirin) 81 mg DAILY GTB Last administered on 09/12/16at 08:59; Admin Dose 81 MG; Start 09/12/16 at 09:00 Acetaminophen (Tylenol Liquid) 650 mg Q6H PRN GTB PAIN 1-3 OR TEMP; Start at 08:30 Acetaminophen/ Hydrocodone Bitart ([place] (5/325)) 1 tab Q6H PRN GTB MODERATE PAIN LEVEL 4-6; Start 09/12/16 at 11:30 Acetaminophen/ Hydrocodone Bitart ([place] (5/325)) 2 tab Q6H PRN GTB MODERATE PAIN LEVEL 4-6; Start 09/12/16 at 13:00 Lorazepam (Ativan) 1 mg Q6 PRN GTB ANXIETY; Start 09/12/16 at 08:30 Lorazepam (Ativan) 1 mg HS PRN GTB ANXIETY, HELP WITH SLEEP; Start 09/12/16 at 08:30 Simethicone (Mylicon) 80 mg Q6H PRN GTB INTESTINAL SPASMS/CRAMPING; Start at 11:30 Zolpidem Tartrate (Ambien) 10 mg HS PRN GTB INSOMNIA; Start 09/12/16 at 08:30 Docusate Sodium 100 mg 100 mg Q12 PRN GTB CONSTIPATION; Start 09/12/16 at 08: 30 Vancomycin HCl/ Sodium Chloride (Vancocin/NS) 500 ml @ 125 mls/hr ONCE ONCE IVPB Last administered on 09/12/16at 11:52; Admin Dose 125 MLS/HR; Start 09/12 at 12:00; Stop 09/12/16 at 15:59 Assessment/Plan Chief Complaint/Hosp Course IINDWELLINGS: Right chest Perm-A-Cath, endotracheal tube, NG tube. PIC line placed on August 14, 2015. Micro: sputum cx + A. baumanii ANTIMICROBIALS: 1. Vancomycin. 2. Colistin 3. Diflucan PHYSICAL EXAMINATION: GENERAL: This is a morbidly obese middle-aged white man who is intubated, sedated and in no distress. HEENT: Head atraumatic, normocephalic. Sclera anicteric. Mucal mucosa dry. NECK: Supple. Trachea midline. CHEST: Rise symmetrical. Breath sound diminished at bases. HEART: S1, S2. ABDOMEN: Obese, soft. Bowel tones present. EXTREMITIES: With bilateral lower extremity JEANA wrapped. ASSESSMENT: 1. Acute on chronic respiratory failure==> intubated. 2. Health care associated pneumonia with bilateral pleural effusions. 3. Status post oxacillin sensitive septicemia on admission. 4. Acute on chronic kidney disease, hemodialysis dependent now. 5. Bilateral lower extremity acute on chronic cellulitis with left toe osteomyelitis. 6. Coronary artery disease. PLAN: The patient remains unchanged. Continue abx, vent per pulmonary, HD DW staff Problems: JAMEY VAZQUEZ NP Sep 12, 2016 14:02
[2016-09-12] MEDS: COLISTIMETHATE 100 MG in SOD CHLORIDE 0.9% 100 ML IVPB SCH (19:03)
[2016-09-12] MEDS: ATORVASTATIN 10 MG TAB GTB SCH (20:59)
[2016-09-12] MEDS: INSULIN GLARGINE [LANtus] 3 ML PEN SC SCH (21:02)
[2016-09-13] VITALS (62 sets, daily range): BP systolic 76–112; BP diastolic 54–82; PULSE 59–83; RESP 17–24
[2016-09-13] MEDS: IPRATROPIUM (HFA) 12.9 GM INHALER INH SCH ×6 (01:31→21:29)
[2016-09-13] MEDS: ALBUTEROL HFA 8 GM INHALER INH SCH ×6 (01:31→21:29)
[2016-09-13] MEDS: INSULIN ASPART [NOVOLOG] 3 ML PEN SC SCH ×6 (02:19→23:16)
[2016-09-13] MEDS: HEPARIN 5,000 UNIT/0.5 ML SYG SC SCH ×3 (06:37→23:17)
[2016-09-13 07:12] LABS: BASOPHILS % 0.2 % (0.0-2.0); EOSINOPHILS # 0.8 10^3/ul (0.0-0.5); EOSINOPHILS % 6.7 % (0.0-7.0); HEMATOCRIT 28.1 % (42.0-52.0); HEMOGLOBIN 9.1 g/dl (14.0-18.0); LYMPHOCYTES # 0.6 10^3/ul (0.8-2.9); LYMPHOCYTES % 4.9 % (15.0-51.0); MEAN CORPUSCULAR HEMOGLOBIN 25.2 pg (29.0-33.0); MEAN CORPUSCULAR HGB CONC 32.4 g/dl (32.0-37.0); MEAN CORPUSCULAR VOLUME 77.7 fl (82.0-101.0); MEAN PLATELET VOLUME 8.8 fl (7.4-10.4); MONOCYTE # 1.3 10^3/ul (0.3-0.9); MONOCYTES % 10.4 % (0.0-11.0); NEUTROPHIL # 9.5 10^3/ul (1.6-7.5); NEUTROPHILS % 77.8 % (39.0-77.0); PLATELET COUNT 198 10^3/UL (140-440); RED BLOOD COUNT 3.61 10^6/ul (4.70-6.10); RED CELL DISTRIBUTION WIDTH 21.1 % (11.5-14.5); UNCORRECTED WBC 12.3 10^3/ul (4.8-10.8); WHITE BLOOD COUNT 12.3 10^3/ul (4.8-10.8)
[2016-09-13 07:14] LABS: CONDITION 1
[2016-09-13 07:15] LABS: LH ANALYZER COMMENTS 1
[2016-09-13 07:21] LABS: POTASSIUM 3.6 mmol/L (3.5-5.1)
[2016-09-13 07:23] LABS: CREATININE 1.74 mg/dl (0.61-1.24)
[2016-09-13 07:24] LABS: CALCIUM 7.4 mg/dl (8.4-10.2)
[2016-09-13 07:38] LABS: PHOSPHORUS 4.2 mg/dl (2.5-4.9)
--- NOTE | 2016-09-13 08:31 | PN ---
DATE: 09/13/2016 CARDIOLOGY FOLLOWUP SUBJECTIVE: Discussed with the staff. The patient remains in atrial fibrillation. Heart rate is o verall under good control. The patient remains intubated on the vent, down to 60% oxygen now. Blood pressure on the low side, but has been overall stable. Discussed with the staff with ICU. Discuss ed with the physicians. MEDICATIONS: Reviewed. PHYSICAL EXAMINATION: VITAL SIGNS: Temperature 98.5, T-max is 100.4, heart rate of 73, blood pressure 104/66 this morning , respiratory rate of 22, saturating 100% on 60% oxygen. HEENT: Normocephalic, atraumatic, a morbidly obese gentleman. Status post intubation, on the vent. Pupils are equal. CARDIOVASCULAR: Irregularly irregular. A systolic murmur. PULMONARY: Anteriorly with no wheezes heard. GASTROINTESTINAL: Obese, soft, nontender. EXTREMITIES: With diffuse lower extremity edema, status post pressure dressing. NEUROLOGIC: He is sedated now. LABORATORY: WBC of 12.3, hemoglobin 9.1, platelets of 198. Sodium 137, potassium 3.6, BUN of 61, c reatinine 1.74, glucose of 86. Stool OB is negative x1. ASSESSMENT AND PLAN: 1. Hypoxemic respiratory failure, status post intubation, on the vent. 2. Atrial fibrillation, chronic. Currently heart rate controlled. 3. Pulmonary hypertension. 4. Obesity hypoventilation syndrome. 5. History of congestive heart failure secondary to diastolic dysfunction. 6. History of hypertension. 7. Renal failure, on dialysis now. 8. Morbid obesity. 9. Anemia. RECOMMENDATIONS: Will continue with the current cardiac care for now. Still requiring high level o f oxygen. Follow up with pulmonary recommendations. Ventilator support will be continued. I will order an echocardiogram to evaluate for PA pressure. The patient previously has been trached and to may need to get tracheostomy again. I will order more of the OB stool to rule out any evidence of GI bleed. If there is no GI bleed noted and no procedure is planned, we will start the patient on E liquis. Will continue with ICU care. More than 38 minutes of critical care time was spent managing this patient, excluding procedures. Dictated By: GARDENIA NELSON MD AV/GREGORY Conf#: [id number] DID#: [id number]
[2016-09-13 08:35] LABS: AADO2 Arterial 266.6 mmHg (7.0-24.0); Allen Test ACCEPTAB; Arterial Base Excess 2.9 mmol/L (-3.0-3); Arterial COHb 0.7 % (0.0-3.0); Arterial MetHb 0.4 % (0.0-1.5); Arterial Total Hemglobin 10.6 g/dl (12.0-18.0); MODE VENT - AC
[2016-09-13] MEDS: FERROUS SULFATE 60 MG/ML 5ML CUP GTB SCH ×2 (08:39→20:17)
[2016-09-13] MEDS: LACTOBACILLUS CHEW TAB GTB SCH ×3 (08:39→20:16)
[2016-09-13] MEDS: CALCIUM CARBONATE 500 MG CHEW TAB GTB SCH ×3 (08:39→18:29)
[2016-09-13] MEDS: FLUCONAZOLE 100 MG TAB GTB SCH (08:39)
[2016-09-13] MEDS: ASPIRIN 81 MG TAB GTB SCH (08:39)
[2016-09-13] MEDS: VITAMIN E 400 UNITS CAP GTB SCH (08:39)
[2016-09-13] MEDS: PYRIDOXINE 50 MG TAB GTB SCH (08:39)
[2016-09-13] MEDS: ASCORBIC ACID 500 MG TAB GTB SCH (08:40)
[2016-09-13] MEDS: FISH OIL 1,000 MG CAP PO SCH (08:40)
[2016-09-13] MEDS: FLUOXETINE 20 MG CAP GTB SCH (08:40)
[2016-09-13] MEDS: FAMOTIDINE 20 MG TAB GTB SCH (08:40)
[2016-09-13] MEDS: ALLOPURINOL 100 MG TAB GTB SCH (08:40)
[2016-09-13] MEDS: ACETYLCYSTEINE 600 MG CAP GTB SCH ×2 (08:40→20:16)
[2016-09-13] MEDS: CHOLECALCIFEROL 1,000 UNIT TAB GTB SCH (08:40)
[2016-09-13] MEDS: METOPROLOL 25 MG TAB GTB SCH ×2 (08:43→20:17)
--- NOTE | 2016-09-13 08:44 | PN ---
Date/Time of Note Date/Time of Note DATE: 09/13/16 TIME: 08:42 Assessment/Plan VTE Prophylaxis VTE Prophylaxis Intervention: heparin Lines/Catheters IV Catheter Type (from Nrsg): Luis Central line still needed: Yes Urinary Cath still in place: Yes (dark yellow cloudy output noted in drainage bag) Reason Cath still needed: terminal illness/intractable pain Assessment/Plan Chief Complaint/Hosp Course 1. Left great toe osteomyelitis. Continue antibiotics as per infectious disease. Status post evaluation by vascular surgery. 2. Acute on chronic respiratory failure, hypoxic and hypercapnic. S/P intubation on 09/06/2016 because of worsening respiratory distress. Continue noninvasive positive pressure ventilation. Continue inhaled bronchodilators. 3. Ventilator associated pneumonia. Sputum culture positive for Acinetobacter baumannii. ID on board. Antibiotics as per ID. 4. Pulmonary hypertension. Continue supplemental oxygen. 5. Acute on chronic kidney disease. The patient was newly started on hemodialysis. Nephrology following. 6. Congestive heart failure exacerbation. Acute on chronic diastolic dysfunction. Continue hemodialysis as per nephrology. 7. Type 2 diabetes mellitus. Hemoglobin A1c 5.8. Continue sliding scale insulin. 8. Essential hypertension. Continue antihypertensives. 9. Atrial fibrillation. Rate controlled. Cardiology following. Therapeutic anticoagulation will be deferred to cardiology. 10. Dyslipidemia. Continue statins. 11. Gout. Continue allopurinol. 12. Major depression. Continue selective serotonin reuptake inhibitors. 13. Morbid obesity with BMI of 42.5 kg/meter squared. 14. Fluid, electrolytes, and nutrition. Continue NGT feedings. 15. Deep vein thrombosis prophylaxis. Subcutaneous heparin. 16. Gastrointestinal prophylaxis. Histamine 2 blockers. PLAN: Wean off ventilator as per pulmonary. Continue ICU monitoring. Case discussed with Dr. Tipton. Critical care time. 35 minutes. Problems: Subjective 24 Hr Interval Summary Free Text/Dictation No changes in status. Exam/Review of Systems Vital Signs Vitals Vital Signs Date Time Temp Pulse Resp B/P Pulse Ox O2 Delivery O2 Flow Rate FiO2 09/13/16 07:00 18 104/66 100 Mechanical Ventilator 09/13/16 06:30 73 09/13/16 05:02 60 09/13/16 04:00 98.5 Intake and Output 09/12/16 09/12/16 09/13/16 14:59 22:59 06:59 Intake Total 1298.645 ml 520.245 ml 311.745 ml Output Total 2820 ml 425 ml 925 ml Balance -1521.355 ml 95.245 ml -613.255 ml Exam GENERAL: This is a morbidly obese male sitting in a chair in mild respiratory distress with oxygen via nasal cannula. HEENT: Head normocephalic and atraumatic. Eyes: Anicteric sclerae. Conjunctivae clear. ENT: Nasal septum. Oral mucosa is dry. NECK: Supple. RESPIRATORY: Bilaterally diminished breath sounds. Fine rales. On AC mode ventilation. CARDIAC: Irregularly irregular rhythm. Systolic murmur. ABDOMEN: Soft, nontender, but protuberant. Bowel sounds hypoactive in all 4 quadrants. GENITOURINARY: Deferred. EXTREMITIES: Bilateral lower extremity 2+ edema. Bilateral lower extremity Patrick wrap. NEUROLOGIC: The patient is somnolent now. On propofol gtt. Results Result Diagram: 09/13/16 0650 09/13/16 0650 Results 24 hrs Laboratory Tests Test 09/12/16 09:08 09/12/16 12:21 09/12/16 16:20 09/12/16 19:05 Bedside Glucose 127 116 121 Stool Occult Blood NEGATIVE Test 09/12/16 20:57 09/13/16 02:18 09/13/16 05:03 09/13/16 06:50 Bedside Glucose 123 122 103 Anion Gap 16 Basophils # 0.0 Basophils % 0.2 Blood Morphology Comment Blood Urea Nitrogen 61 H Calcium Level 7.4 L Carbon Dioxide Level 27 Chloride Level 98 Creatinine 1.74 H Eosinophils # 0.8 H Eosinophils % 6.7 Glucose Level 86 Hematocrit 28.1 L Hemoglobin 9.1 L Lymphocytes # 0.6 L Lymphocytes % 4.9 L Magnesium Level 2.0 Mean Corpuscular Hemoglobin 25.2 L Mean Corpuscular Hemoglobin Concent 32.4 Mean Corpuscular Volume 77.7 L Mean Platelet Volume 8.8 Monocytes # 1.3 H Monocytes % 10.4 Neutrophils # 9.5 H Neutrophils % 77.8 H Nucleated Red Blood Cells # 0.0 Nucleated Red Blood Cells % 0.0 Phosphorus Level 4.2 Platelet Count 198 Potassium Level 3.6 Red Blood Count 3.61 L Red Cell Distribution Width 21.1 H Sodium Level 137 White Blood Count 12.3 H Test 09/13/16 07:00 Arterial Blood HCO3 28.0 H Arterial Blood Base Excess 2.9 Arterial Blood Oxygen Saturation 98.1 H Khoi Test ACCEPTAB Arterial Blood Gas Puncture Site Left Radial Arterial Blood Carboxyhemoglobin 0.7 Arterial Blood Date Drawn 09/13/2016 8:00:28 AM Arterial Blood Methemoglobin 0.4 Arterial Blood pCO2 (Temp correct) 45.2 H Arterial Blood pH (Temp corrected) 7.410 Arterial Blood pO2 (Temp corrected) 111.5 H Blood Gas A-a O2 Differential 266.6 H Blood Gas Actual Respiration Rate 18 Blood Gas Low PEEP Setting 10.0 Blood Gas Modality VENT - AC Blood Gas Notified Time 09/13/2016 8:35:19 AM Blood Gas Notified Whom JLD Blood Gas Respiration Rate 18.0 Blood Gas Specimen Source Blood arterial Blood Gas Temperature 37.0 Blood Gas Tidal Volume 600.0 FiO2 60.0 Oxyhemoglobin Percent 97.0 Total Hemoglobin 10.6 L Medications Medications Current Medications Morphine Sulfate (morphine) 2 mg Q4H PRN IV SEVERE PAIN LEVEL 7-10 Last administered on 09/03/16at 12:28; Admin Dose 2 MG; Start 08/13/16 at 17:30 Fish Oil (Fish Oil) 1,000 mg DAILY PO Last administered on 09/12/16at 08:58; Admin Dose 1,000 MG; Start 08/14/16 at 09:00 Miscellaneous Information 1 ea NOTE XX ; Start 08/13/16 at 18:00 Glucose (Glutose) 15 gm Q15M PRN PO DECREASED GLUCOSE; Start 08/13/16 at 18:00 Glucose (Glutose) 22.5 gm Q15M PRN PO DECREASED GLUCOSE; Start 08/13/16 at 18: 00 Dextrose (D50w Syringe) 25 ml Q15M PRN IV DECREASED GLUCOSE Last administered on 09/10/16at 09:18; Admin Dose 25 ML; Start 08/13/16 at 18:00 Dextrose (D50w Syringe) 50 ml Q15M PRN IV DECREASED GLUCOSE; Start 08/13/16 at 18:00 Glucagon (Glucagen) 1 mg Q15M PRN IM DECREASED GLUCOSE; Start 08/13/16 at 18: 00 Glucose (Glutose) 15 gm Q15M PRN BUCCAL DECREASED GLUCOSE; Start 08/13/16 at 18:00 Sodium Hypochlorite (Dakin'S (1/4 Strength)) 1 applic DAILY IRR Last administered on 09/12/16 09:00; Admin Dose 1 APPLIC; Start 08/13/16 at 20:00 IV Flush (NS 10 ml) 10 ml PRN PRN IV IV PTOTOCOL; Start 08/14/16 at 17:00 Ondansetron HCl (Zofran Inj) 4 mg Q4H PRN IV NAUSEA AND/OR VOMITING; Start 08/16/16 at 12:30 Phenol 1 lozenge 1 lozenge Q1H PRN MT DRY MOUTH Last administered on 08/20/16at 21:28; Admin Dose 1 LOZENGE; Start 08/20/16 at 20:30 Norepinephrine 16 mg/Dextrose 500 ml @ 1.87 mls/hr TITRATE IV ; Start at 08:00 Propofol (Diprivan) 100 ml @ 3.915 mls/ hr Q12H IV Last administered on 19:10; Admin Dose 11.745 MLS/HR; Start 09/09/16 at 02:30 Lorazepam (Ativan) 2 mg Q4H PRN IV anxiety; Start 09/09/16 at 10:30 Heparin Sodium (Porcine) (Heparin (5000 Units/0.5 ml)) 5,000 unit Q8 SC Last administered on 09/13/16at 06:37; Admin Dose 5,000 UNIT; Start 09/09/16 at 22: 00 Insulin Aspart (Novolog Insulin Pen) NOVOLOG *MILD* ALGORI... Q4 SC ; Start at 01:00 Insulin Glargine 10 unit 10 unit HS SC Last administered on 09/12/16at 21:02; Admin Dose 10 UNIT; Start 09/10/16 at 22:00 Colistimethate Sodium/Sodium Chloride (Coly-Mycin/NS) 100 ml @ 50 mls/hr Q24H IVPB Last administered on 09/12/16 19:03; Admin Dose 50 MLS/HR; Start at 16:00 Acetylcysteine (Nac) 600 mg BID GTB Last administered on 09/12/16 20:59; Admin Dose 600 MG; Start 09/12/16 at 09:00 Allopurinol (Zyloprim) 100 mg DAILY GTB Last administered on 09/12/16 08:58; Admin Dose 100 MG; Start 09/12/16 at 09:00 Ascorbic Acid (Vitamin C) 500 mg DAILY GTB Last administered on 09/12/16 08: 59; Admin Dose 500 MG; Start 09/12/16 at 09:00 Atorvastatin Calcium (Lipitor) 10 mg QHS GTB Last administered on 09/12/16 20 :59; Admin Dose 10 MG; Start 09/12/16 at 21:00 Cholecalciferol (Vitamin D) 1,000 unit DAILY GTB Last administered on 08:59; Admin Dose 1,000 UNIT; Start 09/12/16 at 09:00 Diphenhydramine HCl (Benadryl) 25 mg Q6H PRN GTB ITCHING; Start 09/12/16 at 08 :30 Famotidine (Pepcid) 20 mg DAILY GTB Last administered on 09/12/16 08:59; Admin Dose 20 MG; Start 09/12/16 at 09:00 Ferrous Sulfate (Feosol Liquid Cup) 300 mg BID GTB Last administered on 20:58; Admin Dose 300 MG; Start 09/12/16 at 09:00 Fluconazole (Diflucan) 100 mg DAILY GTB Last administered on 09/12/16 08:58; Admin Dose 100 MG; Start 09/12/16 at 09:00 Fluoxetine HCl (Prozac) 20 mg DAILY GTB Last administered on 09/12/16 09:04; Admin Dose 20 MG; Start 09/12/16 at 10:00 Lactobacillus Acidoph/Bulgaricus (Floranex) 1 tab TID GTB Last administered on 09/12/16 20:59; Admin Dose 1 TAB; Start 09/12/16 at 09:00 Metoprolol Tartrate (Lopressor) 12.5 mg BID GTB Last administered on 20:59; Admin Dose 12.5 MG; Start 09/12/16 at 09:00 Pregabalin (Lyrica) 50 mg TID GTB Last administered on 09/12/16 21:07; Admin Dose 50 MG; Start 09/12/16 at 09:00 Pyridoxine HCl (Vitamin B6) 100 mg DAILY GTB Last administered on 09/12/16 08 :59; Admin Dose 100 MG; Start 09/12/16 at 09:00 Vitamin E (Vitamin E) 400 units DAILY GTB Last administered on 09/12/16at 09:03 ; Admin Dose 400 UNITS; Start 09/12/16 at 10:00 Aspirin (Aspirin) 81 mg DAILY GTB Last administered on 09/12/16at 08:59; Admin Dose 81 MG; Start 09/12/16 at 09:00 Acetaminophen (Tylenol Liquid) 650 mg Q6H PRN GTB PAIN 1-3 OR TEMP; Start at 08:30 Acetaminophen/ Hydrocodone Bitart ([place] (5/325)) 1 tab Q6H PRN GTB MODERATE PAIN LEVEL 4-6; Start 09/12/16 at 11:30 Acetaminophen/ Hydrocodone Bitart ([place] (5/325)) 2 tab Q6H PRN GTB MODERATE PAIN LEVEL 4-6; Start 09/12/16 at 13:00 Lorazepam (Ativan) 1 mg Q6 PRN GTB ANXIETY; Start 09/12/16 at 08:30 Lorazepam (Ativan) 1 mg HS PRN GTB ANXIETY, HELP WITH SLEEP; Start 09/12/16 at 08:30 Simethicone (Mylicon) 80 mg Q6H PRN GTB INTESTINAL SPASMS/CRAMPING; Start at 11:30 Zolpidem Tartrate (Ambien) 10 mg HS PRN GTB INSOMNIA; Start 09/12/16 at 08:30 Docusate Sodium (Colace Liquid Cup) 100 mg Q12 PRN GTB CONSTIPATION; Start at 08:30 GIO BISHOP NP Sep 13, 2016 08:44
[2016-09-13] MEDS: PREGABALIN 25 MG CAP GTB SCH ×3 (08:52→20:17)
[2016-09-13] MEDS: PROPOFOL 100 ML IV SCH ×2 (08:53→14:08)
[2016-09-13] MEDS: SODIUM HYPOCHLORITE 0.125% 473 ML BTL IRR SCH (09:16)
--- NOTE | 2016-09-13 10:25 | CONS ---
Date/Time of Note Date/Time of Note DATE: 09/13/16 TIME: 10:23 Assessment/Plan Assessment/Plan Additional Assessment/Plan 60 yo male with 1) Respiratory Failure 2) HCAP 3) LORNA on CKD, Currently on HD 4) Volume Overload, Anasarca 5) Pulm HTN 6) Morbid Obesity 7) Bilateral lower extremities acute on chronic cellulitis with left toe osteomyelitis. 8) Status post oxacillin-sensitive Staphylococcus aureus septicemia. HD ordered for today 3.5K Bath, UF as tolerated Dry UF tomorrow. Cont supportive care Discussed case with Dr Peres. Consultation Date/Type/Reason Admit Date/Time Aug 13, 2016 at 16:30 Initial Consult Date 08/13/16 Type of Consultation: Nephrology Referring Provider: KELLEN MEDINA MD 24 HR Interval Summary Free Text/Dictation S/p Dry UF Subjective hx not possible: pt critical status Constitutional: requiring O2 Exam/Review of Systems Vital Signs Vitals Vital Signs Date Time Temp Pulse Resp B/P Pulse Ox O2 Delivery O2 Flow Rate FiO2 09/13/16 08:00 72 09/13/16 07:00 18 104/66 100 Mechanical Ventilator 09/13/16 05:02 60 09/13/16 04:00 98.5 Intake and Output 09/12/16 09/12/16 09/13/16 15:00 23:00 07:00 Intake Total 1298.6 ml 520.290 ml 250 ml Output Total 2775 ml 520 ml 825 ml Balance -1476.4 ml 0.290 ml -575 ml Exam ENMT: intubated, mucosa pink and moist Respiratory: crackles/rales, diminished breath sounds Cardiovascular: edema, regular rate and rhythm Gastrointestinal: distended, soft 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: other (sedated) Skin: No diaphoresis Results Result Diagram: 09/13/16 0650 09/13/16 0650 Results 24 hrs Laboratory Tests Test 09/12/16 12:21 09/12/16 16:20 09/12/16 19:05 09/12/16 20:57 Bedside Glucose 116 121 123 Stool Occult Blood NEGATIVE Test 09/13/16 02:18 09/13/16 05:03 09/13/16 06:50 09/13/16 07:00 Bedside Glucose 122 103 Anion Gap 16 Basophils # 0.0 Basophils % 0.2 Blood Morphology Comment Blood Urea Nitrogen 61 H Calcium Level 7.4 L Carbon Dioxide Level 27 Chloride Level 98 Creatinine 1.74 H Eosinophils # 0.8 H Eosinophils % 6.7 Glucose Level 86 Hematocrit 28.1 L Hemoglobin 9.1 L Lymphocytes # 0.6 L Lymphocytes % 4.9 L Magnesium Level 2.0 Mean Corpuscular Hemoglobin 25.2 L Mean Corpuscular Hemoglobin Concent 32.4 Mean Corpuscular Volume 77.7 L Mean Platelet Volume 8.8 Monocytes # 1.3 H Monocytes % 10.4 Neutrophils # 9.5 H Neutrophils % 77.8 H Nucleated Red Blood Cells # 0.0 Nucleated Red Blood Cells % 0.0 Phosphorus Level 4.2 Platelet Count 198 Potassium Level 3.6 Red Blood Count 3.61 L Red Cell Distribution Width 21.1 H Sodium Level 137 White Blood Count 12.3 H Arterial Blood HCO3 28.0 H Arterial Blood Base Excess 2.9 Arterial Blood Oxygen Saturation 98.1 H Khoi Test ACCEPTAB Arterial Blood Gas Puncture Site Left Radial Arterial Blood Carboxyhemoglobin 0.7 Arterial Blood Date Drawn 09/13/2016 8:00:28 AM Arterial Blood Methemoglobin 0.4 Arterial Blood pCO2 (Temp correct) 45.2 H Arterial Blood pH (Temp corrected) 7.410 Arterial Blood pO2 (Temp corrected) 111.5 H Blood Gas A-a O2 Differential 266.6 H Blood Gas Actual Respiration Rate 18 Blood Gas Low PEEP Setting 10.0 Blood Gas Modality VENT - AC Blood Gas Notified Time 09/13/2016 8:35:19 AM Blood Gas Notified Whom JLD Blood Gas Respiration Rate 18.0 Blood Gas Specimen Source Blood arterial Blood Gas Temperature 37.0 Blood Gas Tidal Volume 600.0 FiO2 60.0 Oxyhemoglobin Percent 97.0 Total Hemoglobin 10.6 L Test 09/13/16 09:01 Bedside Glucose 96 Medications Medications Current Medications Morphine Sulfate (morphine) 2 mg Q4H PRN IV SEVERE PAIN LEVEL 7-10 Last administered on 09/03/16at 12:28; Admin Dose 2 MG; Start 08/13/16 at 17:30 Fish Oil (Fish Oil) 1,000 mg DAILY PO Last administered on 09/13/16at 08:40; Admin Dose 1,000 MG; Start 08/14/16 at 09:00 Miscellaneous Information 1 ea NOTE XX ; Start 08/13/16 at 18:00 Glucose (Glutose) 15 gm Q15M PRN PO DECREASED GLUCOSE; Start 08/13/16 at 18:00 Glucose (Glutose) 22.5 gm Q15M PRN PO DECREASED GLUCOSE; Start 08/13/16 at 18: 00 Dextrose (D50w Syringe) 25 ml Q15M PRN IV DECREASED GLUCOSE Last administered on 09/10/16at 09:18; Admin Dose 25 ML; Start 08/13/16 at 18:00 Dextrose (D50w Syringe) 50 ml Q15M PRN IV DECREASED GLUCOSE; Start 08/13/16 at 18:00 Glucagon (Glucagen) 1 mg Q15M PRN IM DECREASED GLUCOSE; Start 08/13/16 at 18: 00 Glucose (Glutose) 15 gm Q15M PRN BUCCAL DECREASED GLUCOSE; Start 08/13/16 at 18:00 Sodium Hypochlorite (Dakin'S (1/4 Strength)) 1 applic DAILY IRR Last administered on 09/13/16at 09:16; Admin Dose 1 APPLIC; Start 08/13/16 at 20:00 IV Flush (NS 10 ml) 10 ml PRN PRN IV IV PTOTOCOL; Start 08/14/16 at 17:00 Ondansetron HCl (Zofran Inj) 4 mg Q4H PRN IV NAUSEA AND/OR VOMITING; Start 08/16/16 at 12:30 Phenol 1 lozenge 1 lozenge Q1H PRN MT DRY MOUTH Last administered on 08/20/16at 21:28; Admin Dose 1 LOZENGE; Start 08/20/16 at 20:30 Norepinephrine 16 mg/Dextrose 500 ml @ 1.87 mls/hr TITRATE IV ; Start at 08:00 Propofol (Diprivan) 100 ml @ 3.915 mls/ hr Q12H IV Last administered on at 08:53; Admin Dose 19.575 MLS/HR; Start 09/09/16 at 02:30 Lorazepam (Ativan) 2 mg Q4H PRN IV anxiety; Start 09/09/16 at 10:30 Heparin Sodium (Porcine) (Heparin (5000 Units/0.5 ml)) 5,000 unit Q8 SC Last administered on 09/13/16at 06:37; Admin Dose 5,000 UNIT; Start 09/09/16 at 22: 00 Insulin Aspart (Novolog Insulin Pen) NOVOLOG *MILD* ALGORI... Q4 SC ; Start at 01:00 Insulin Glargine 10 unit 10 unit HS SC Last administered on 09/12/16at 21:02; Admin Dose 10 UNIT; Start 09/10/16 at 22:00 Colistimethate Sodium/Sodium Chloride (Coly-Mycin/NS) 100 ml @ 50 mls/hr Q24H IVPB Last administered on 09/12/16at 19:03; Admin Dose 50 MLS/HR; Start at 16:00 Acetylcysteine (Nac) 600 mg BID GTB Last administered on 09/13/16 08:40; Admin Dose 600 MG; Start 09/12/16 at 09:00 Allopurinol (Zyloprim) 100 mg DAILY GTB Last administered on 09/13/16 08:40; Admin Dose 100 MG; Start 09/12/16 at 09:00 Ascorbic Acid (Vitamin C) 500 mg DAILY GTB Last administered on 09/13/16 08: 40; Admin Dose 500 MG; Start 09/12/16 at 09:00 Atorvastatin Calcium (Lipitor) 10 mg QHS GTB Last administered on 09/12/16at 20 :59; Admin Dose 10 MG; Start 09/12/16 at 21:00 Cholecalciferol (Vitamin D) 1,000 unit DAILY GTB Last administered on 08:40; Admin Dose 1,000 UNIT; Start 09/12/16 at 09:00 Diphenhydramine HCl (Benadryl) 25 mg Q6H PRN GTB ITCHING; Start 09/12/16 at 08 :30 Famotidine (Pepcid) 20 mg DAILY GTB Last administered on 09/13/16at 08:40; Admin Dose 20 MG; Start 09/12/16 at 09:00 Ferrous Sulfate (Feosol Liquid Cup) 300 mg BID GTB Last administered on 08:39; Admin Dose 300 MG; Start 09/12/16 at 09:00 Fluconazole (Diflucan) 100 mg DAILY GTB Last administered on 09/13/16at 08:39; Admin Dose 100 MG; Start 09/12/16 at 09:00 Fluoxetine HCl (Prozac) 20 mg DAILY GTB Last administered on 09/13/16 08:40; Admin Dose 20 MG; Start 09/12/16 at 10:00 Lactobacillus Acidoph/Bulgaricus (Floranex) 1 tab TID GTB Last administered on 09/13/16 08:39; Admin Dose 1 TAB; Start 09/12/16 at 09:00 Metoprolol Tartrate (Lopressor) 12.5 mg BID GTB Last administered on 08:43; Admin Dose 12.5 MG; Start 09/12/16 at 09:00 Pregabalin (Lyrica) 50 mg TID GTB Last administered on 09/13/16 08:52; Admin Dose 50 MG; Start 09/12/16 at 09:00 Pyridoxine HCl (Vitamin B6) 100 mg DAILY GTB Last administered on 09/13/16 08 :39; Admin Dose 100 MG; Start 09/12/16 at 09:00 Vitamin E (Vitamin E) 400 units DAILY GTB Last administered on 09/13/16 08:39 ; Admin Dose 400 UNITS; Start 09/12/16 at 10:00 Aspirin (Aspirin) 81 mg DAILY GTB Last administered on 09/13/16 08:39; Admin Dose 81 MG; Start 09/12/16 at 09:00 Acetaminophen (Tylenol Liquid) 650 mg Q6H PRN GTB PAIN 1-3 OR TEMP; Start at 08:30 Acetaminophen/ Hydrocodone Bitart ([place] (5/325)) 1 tab Q6H PRN GTB MODERATE PAIN LEVEL 4-6; Start 09/12/16 at 11:30 Acetaminophen/ Hydrocodone Bitart ([place] (5/325)) 2 tab Q6H PRN GTB MODERATE PAIN LEVEL 4-6; Start 09/12/16 at 13:00 Lorazepam (Ativan) 1 mg Q6 PRN GTB ANXIETY; Start 09/12/16 at 08:30 Lorazepam (Ativan) 1 mg HS PRN GTB ANXIETY, HELP WITH SLEEP; Start 09/12/16 at 08:30 Simethicone (Mylicon) 80 mg Q6H PRN GTB INTESTINAL SPASMS/CRAMPING; Start at 11:30 Zolpidem Tartrate (Ambien) 10 mg HS PRN GTB INSOMNIA; Start 09/12/16 at 08:30 Docusate Sodium (Colace Liquid Cup) 100 mg Q12 PRN GTB CONSTIPATION; Start at 08:30 DYAN FRANKLIN MD Sep 13, 2016 10:24
--- NOTE | 2016-09-13 11:31 | RADRPT ---
PROCEDURE: XR Chest. CLINICAL INDICATION: Respiratory failure TECHNIQUE: An AP view of the chest was obtained. COMPARISON: Chest x-ray dated 09/12/2016 FINDINGS: The endotracheal tube tip is approximately 5.3 cm above the nithin. The tip of the enteric tube ex tends below the left diaphragm. There is a right chest Perma-Cath with tip near the cavoatrial junct ion. There is a right upper extremity PICC line tip in the mid SVC. There are diffuse bilateral interstitial opacities. There is a small right pleural effusion. No foc al airspace opacification or pneumothorax is seen. The cardiomediastinal silhouette is mildly enla rged . Calcifications are seen within the aortic arch. The osseous structures demonstrate senescent changes. IMPRESSION: 1. Findings suggestive of interstitial edema with small right pleural effusion. No significant inte rval change. 2. Mild cardiomegaly and aortic atherosclerosis. 3. Tubes and lines, as described above. RPTAT: .Georgie Block MD, MD Date Time Electronically viewed and signed by .Georgie Block MD, on 09/13/2016 11:31 .G/
--- NOTE | 2016-09-13 15:07 | CONS ---
Date/Time of Note Date/Time of Note DATE: 09/13/16 TIME: 15:05 Consult Date/Type/Reason Admit Date/Time Aug 13, 2016 at 16:30 Initial Consult Date 08/13/16 Type of Consultation: pulmonary Ordering Provider: KELLEN MEDINA MD Subjective Continues mechanical ventilation moderate secretions Currently hemodynamically stable Objective Vital Signs Date Time Temp Pulse Resp B/P Pulse Ox O2 Delivery O2 Flow Rate FiO2 09/13/16 14:29 69 09/13/16 13:42 18 100 60 09/13/16 13:00 103/62 Mechanical Ventilator 09/13/16 12:00 98.7 Intake and Output 09/12/16 09/12/16 09/13/16 14:59 22:59 06:59 Intake Total 1298.645 ml 520.245 ml 311.745 ml Output Total 2820 ml 425 ml 925 ml Balance -1521.355 ml 95.245 ml -613.255 ml PHYSICAL EXAMINATION GENERAL: Elderly gentleman, intubated on mechanical ventilation, opens eyes and appears somewhat agitated. Orally intubated. VITAL SIGNS: see below. HEENT: Pupils equal, round, and reactive to light. CARDIAC: S1, S2, tachycardia. CHEST: Diminished air entry bilaterally. ABDOMEN: Mildly distended. No bowel sounds. EXTREMITIES: No cyanosis, clubbing, edema +2 NEUROLOGIC: No focal deficits. Results/Medications Result Diagram: 09/13/16 0650 09/13/16 0650 Results 24 hrs Chest x-ray Significant pulmonary edema possible early ARDS Laboratory Tests Test 09/12/16 16:20 09/12/16 19:05 09/12/16 20:57 09/13/16 02:18 Stool Occult Blood NEGATIVE Bedside Glucose 121 123 122 Test 09/13/16 05:03 09/13/16 06:50 09/13/16 07:00 09/13/16 09:01 Bedside Glucose 103 96 Anion Gap 16 Basophils # 0.0 Basophils % 0.2 Blood Morphology Comment Blood Urea Nitrogen 61 H Calcium Level 7.4 L Carbon Dioxide Level 27 Chloride Level 98 Creatinine 1.74 H Eosinophils # 0.8 H Eosinophils % 6.7 Glucose Level 86 Hematocrit 28.1 L Hemoglobin 9.1 L Lymphocytes # 0.6 L Lymphocytes % 4.9 L Magnesium Level 2.0 Mean Corpuscular Hemoglobin 25.2 L Mean Corpuscular Hemoglobin Concent 32.4 Mean Corpuscular Volume 77.7 L Mean Platelet Volume 8.8 Monocytes # 1.3 H Monocytes % 10.4 Neutrophils # 9.5 H Neutrophils % 77.8 H Nucleated Red Blood Cells # 0.0 Nucleated Red Blood Cells % 0.0 Phosphorus Level 4.2 Platelet Count 198 Potassium Level 3.6 Red Blood Count 3.61 L Red Cell Distribution Width 21.1 H Sodium Level 137 White Blood Count 12.3 H Arterial Blood HCO3 28.0 H Arterial Blood Base Excess 2.9 Arterial Blood Oxygen Saturation 98.1 H Khoi Test ACCEPTAB Arterial Blood Gas Puncture Site Left Radial Arterial Blood Carboxyhemoglobin 0.7 Arterial Blood Date Drawn 09/13/2016 8:00:28 AM Arterial Blood Methemoglobin 0.4 Arterial Blood pCO2 (Temp correct) 45.2 H Arterial Blood pH (Temp corrected) 7.410 Arterial Blood pO2 (Temp corrected) 111.5 H Blood Gas A-a O2 Differential 266.6 H Blood Gas Actual Respiration Rate 18 Blood Gas Low PEEP Setting 10.0 Blood Gas Modality VENT - AC Blood Gas Notified Time 09/13/2016 8:35:19 AM Blood Gas Notified Whom JLD Blood Gas Respiration Rate 18.0 Blood Gas Specimen Source Blood arterial Blood Gas Temperature 37.0 Blood Gas Tidal Volume 600.0 FiO2 60.0 Oxyhemoglobin Percent 97.0 Total Hemoglobin 10.6 L Test 09/13/16 12:34 Bedside Glucose 118 Medications Current Medications Morphine Sulfate (morphine) 2 mg Q4H PRN IV SEVERE PAIN LEVEL 7-10 Last administered on 09/03/16at 12:28; Admin Dose 2 MG; Start 08/13/16 at 17:30 Fish Oil (Fish Oil) 1,000 mg DAILY PO Last administered on 09/13/16at 08:40; Admin Dose 1,000 MG; Start 08/14/16 at 09:00 Miscellaneous Information 1 ea NOTE XX ; Start 08/13/16 at 18:00 Glucose (Glutose) 15 gm Q15M PRN PO DECREASED GLUCOSE; Start 08/13/16 at 18:00 Glucose (Glutose) 22.5 gm Q15M PRN PO DECREASED GLUCOSE; Start 08/13/16 at 18: 00 Dextrose (D50w Syringe) 25 ml Q15M PRN IV DECREASED GLUCOSE Last administered on 09/10/16at 09:18; Admin Dose 25 ML; Start 08/13/16 at 18:00 Dextrose (D50w Syringe) 50 ml Q15M PRN IV DECREASED GLUCOSE; Start 08/13/16 at 18:00 Glucagon (Glucagen) 1 mg Q15M PRN IM DECREASED GLUCOSE; Start 08/13/16 at 18: 00 Glucose (Glutose) 15 gm Q15M PRN BUCCAL DECREASED GLUCOSE; Start 08/13/16 at 18:00 Sodium Hypochlorite (Dakin'S (1/4 Strength)) 1 applic DAILY IRR Last administered on 09/13/16at 09:16; Admin Dose 1 APPLIC; Start 08/13/16 at 20:00 IV Flush (NS 10 ml) 10 ml PRN PRN IV IV PTOTOCOL; Start 08/14/16 at 17:00 Ondansetron HCl (Zofran Inj) 4 mg Q4H PRN IV NAUSEA AND/OR VOMITING; Start 08/16/16 at 12:30 Phenol 1 lozenge 1 lozenge Q1H PRN MT DRY MOUTH Last administered on 08/20/16at 21:28; Admin Dose 1 LOZENGE; Start 08/20/16 at 20:30 Norepinephrine 16 mg/Dextrose 500 ml @ 1.87 mls/hr TITRATE IV ; Start at 08:00 Propofol (Diprivan) 100 ml @ 3.915 mls/ hr Q12H IV Last administered on at 14:08; Admin Dose 15.66 MLS/HR; Start 09/09/16 at 02:30 Lorazepam (Ativan) 2 mg Q4H PRN IV anxiety; Start 09/09/16 at 10:30 Heparin Sodium (Porcine) (Heparin (5000 Units/0.5 ml)) 5,000 unit Q8 SC Last administered on 09/13/16at 14:10; Admin Dose 5,000 UNIT; Start 09/09/16 at 22: 00 Insulin Aspart (Novolog Insulin Pen) NOVOLOG *MILD* ALGORI... Q4 SC ; Start at 01:00 Insulin Glargine 10 unit 10 unit HS SC Last administered on 09/12/16at 21:02; Admin Dose 10 UNIT; Start 09/10/16 at 22:00 Colistimethate Sodium/Sodium Chloride (Coly-Mycin/NS) 100 ml @ 50 mls/hr Q24H IVPB Last administered on 09/12/16at 19:03; Admin Dose 50 MLS/HR; Start at 16:00 Acetylcysteine (Nac) 600 mg BID GTB Last administered on 09/13/16 08:40; Admin Dose 600 MG; Start 09/12/16 at 09:00 Allopurinol (Zyloprim) 100 mg DAILY GTB Last administered on 09/13/16 08:40; Admin Dose 100 MG; Start 09/12/16 at 09:00 Ascorbic Acid (Vitamin C) 500 mg DAILY GTB Last administered on 09/13/16 08: 40; Admin Dose 500 MG; Start 09/12/16 at 09:00 Atorvastatin Calcium (Lipitor) 10 mg QHS GTB Last administered on 09/12/16at 20 :59; Admin Dose 10 MG; Start 09/12/16 at 21:00 Cholecalciferol (Vitamin D) 1,000 unit DAILY GTB Last administered on 08:40; Admin Dose 1,000 UNIT; Start 09/12/16 at 09:00 Diphenhydramine HCl (Benadryl) 25 mg Q6H PRN GTB ITCHING; Start 09/12/16 at 08 :30 Famotidine (Pepcid) 20 mg DAILY GTB Last administered on 09/13/16 08:40; Admin Dose 20 MG; Start 09/12/16 at 09:00 Ferrous Sulfate (Feosol Liquid Cup) 300 mg BID GTB Last administered on 08:39; Admin Dose 300 MG; Start 09/12/16 at 09:00 Fluconazole (Diflucan) 100 mg DAILY GTB Last administered on 09/13/16 08:39; Admin Dose 100 MG; Start 09/12/16 at 09:00 Fluoxetine HCl (Prozac) 20 mg DAILY GTB Last administered on 09/13/16 08:40; Admin Dose 20 MG; Start 09/12/16 at 10:00 Lactobacillus Acidoph/Bulgaricus (Floranex) 1 tab TID GTB Last administered on 09/13/16at 12:16; Admin Dose 1 TAB; Start 09/12/16 at 09:00 Metoprolol Tartrate (Lopressor) 12.5 mg BID GTB Last administered on at 08:43; Admin Dose 12.5 MG; Start 09/12/16 at 09:00 Pregabalin (Lyrica) 50 mg TID GTB Last administered on 09/13/16at 12:16; Admin Dose 50 MG; Start 09/12/16 at 09:00 Pyridoxine HCl (Vitamin B6) 100 mg DAILY GTB Last administered on 09/13/16at 08 :39; Admin Dose 100 MG; Start 09/12/16 at 09:00 Vitamin E (Vitamin E) 400 units DAILY GTB Last administered on 09/13/16at 08:39 ; Admin Dose 400 UNITS; Start 09/12/16 at 10:00 Aspirin (Aspirin) 81 mg DAILY GTB Last administered on 09/13/16at 08:39; Admin Dose 81 MG; Start 09/12/16 at 09:00 Acetaminophen (Tylenol Liquid) 650 mg Q6H PRN GTB PAIN 1-3 OR TEMP; Start at 08:30 Acetaminophen/ Hydrocodone Bitart ([place] (5/325)) 1 tab Q6H PRN GTB MODERATE PAIN LEVEL 4-6; Start 09/12/16 at 11:30 Acetaminophen/ Hydrocodone Bitart ([place] (5/325)) 2 tab Q6H PRN GTB MODERATE PAIN LEVEL 4-6; Start 09/12/16 at 13:00 Lorazepam (Ativan) 1 mg Q6 PRN GTB ANXIETY; Start 09/12/16 at 08:30 Lorazepam (Ativan) 1 mg HS PRN GTB ANXIETY, HELP WITH SLEEP; Start 09/12/16 at 08:30 Simethicone (Mylicon) 80 mg Q6H PRN GTB INTESTINAL SPASMS/CRAMPING; Start at 11:30 Zolpidem Tartrate (Ambien) 10 mg HS PRN GTB INSOMNIA; Start 09/12/16 at 08:30 Docusate Sodium (Colace Liquid Cup) 100 mg Q12 PRN GTB CONSTIPATION; Start at 08:30 Assessment/Plan Chief Complaint/Hosp Course Assessment and plan 1. . Acute on chronic respiratory failure, hypoxic and hypercapnic. S/P intubation on 09/06/2016 because of worsening respiratory distress. Continue mechanical ventilation not for weaning today. Significant pulmonary edema on chest x-ray will require further volume removal on hemodialysis 2. Left great toe osteomyelitis. Continue antibiotics as per infectious disease. 3..Pulmonary hypertension. Continue supplemental oxygen. 4. End-stage renal failure now on hemodialysis. Volume removal as tolerated discuss with nephrology 5. Dysphagia continue tube feeding 6. Atrial fibrillation currently rate controlled Disposition continue current level of care Problems: EDNA BUSTILLO MD, [facility] Sep 13, 2016 15:06
[2016-09-13] MEDS: COLISTIMETHATE 100 MG in SOD CHLORIDE 0.9% 100 ML IVPB SCH (17:00)
--- NOTE | 2016-09-13 17:22 | PN ---
DATE: 09/13/2016 SUBJECTIVE: No acute events overnight. No fevers. The patient is lying comfortably in bed, curren tly in hemodialysis. VITAL SIGNS: Temperature 98.7, pulse 68, respirations 20, blood pressure 103/62, saturation 99% on vent. WBC 12.3, platelets 198, neutrophils 77.8. INDWELLINGS: Endotracheal tube, orogastric tube, right chest PermCath and Higgins catheter. MICROBIOLOGY: Blood cultures repeated on 09/10/2016 negative. DIAGNOSTICS: Chest x-ray this morning revealed interstitial edema with small right pleural effusion s. PHYSICAL EXAMINATION: GENERAL: Morbidly obese, middle-aged white man who is intubated and sedated, in no distress. HEENT: Head atraumatic, normocephalic. Sclerae anicteric. Buccal mucosa dry. NECK: Obese, trachea midline. CHEST: Rise symmetrical. Breath sounds diminished to bases. HEART: S1, S2. ABDOMEN: Soft, bowel tones present. EXTREMITIES: Without cyanosis. Bilateral lower extremity Patrick wrapped. ASSESSMENT: 1. Acute on chronic respiratory failure secondary to pneumonia and pulmonary edema. 2. Left great toe osteomyelitis. 3. Status post oxacillin-sensitive Staphylococcus aureus septicemia. 4. Acute on chronic kidney disease, hemodialysis dependent. 5. Coronary artery disease. 6. Morbid obesity. 7. Diabetes. PLAN: The patient remains hemodynamically stable, covered with appropriate antimicrobials which we are going to continue. We will keep him on colistin for Acinetobacter baumannii that he is growing in his sputum and complete 6 weeks IV antibiotics for osteomyelitis. Dictated By: JAMEY VAZQUEZ CATTLE MANAGER for DONAVAN HALLMAN/GREGORY Conf#: [id number] DID#: [id number]
[2016-09-13] MEDS: PROPOFOL 100 ML IV PRN (20:16)
[2016-09-13] MEDS: ATORVASTATIN 10 MG TAB GTB SCH (20:17)
[2016-09-13] MEDS: INSULIN GLARGINE [LANtus] 3 ML PEN SC SCH (23:15)
[2016-09-14] VITALS (61 sets, daily range): BP systolic 89–110; BP diastolic 52–70; PULSE 56–78; RESP 18–22
[2016-09-14] MEDS: INSULIN ASPART [NOVOLOG] 3 ML PEN SC SCH ×6 (01:00→21:00)
[2016-09-14] MEDS: ALBUTEROL HFA 8 GM INHALER INH SCH ×6 (01:19→21:25)
[2016-09-14] MEDS: IPRATROPIUM (HFA) 12.9 GM INHALER INH SCH ×6 (01:19→21:25)
[2016-09-14] MEDS: PROPOFOL 100 ML IV PRN ×3 (01:34→12:51)
[2016-09-14 05:12] LABS: BASOPHIL # 0.1 10^3/ul (0.0-0.1); BASOPHILS % 0.5 % (0.0-2.0); EOSINOPHILS # 0.9 10^3/ul (0.0-0.5); HEMATOCRIT 27.1 % (42.0-52.0); HEMOGLOBIN 8.9 g/dl (14.0-18.0); LYMPHOCYTES # 0.8 10^3/ul (0.8-2.9); LYMPHOCYTES % 6.8 % (15.0-51.0); MEAN CORPUSCULAR HEMOGLOBIN 25.5 pg (29.0-33.0); MEAN CORPUSCULAR HGB CONC 32.7 g/dl (32.0-37.0); MEAN CORPUSCULAR VOLUME 77.9 fl (82.0-101.0); MEAN PLATELET VOLUME 8.9 fl (7.4-10.4); MONOCYTES % 9.4 % (0.0-11.0); NEUTROPHIL # 8.4 10^3/ul (1.6-7.5); NEUTROPHILS % 75.3 % (39.0-77.0); PLATELET COUNT 207 10^3/UL (140-440); RED BLOOD COUNT 3.49 10^6/ul (4.70-6.10); RED CELL DISTRIBUTION WIDTH 20.4 % (11.5-14.5); UNCORRECTED WBC 11.1 10^3/ul (4.8-10.8); WHITE BLOOD COUNT 11.1 10^3/ul (4.8-10.8)
[2016-09-14 05:19] LABS: POTASSIUM 3.6 mmol/L (3.5-5.1)
[2016-09-14 05:22] LABS: CREATININE 1.57 mg/dl (0.61-1.24)
[2016-09-14 05:23] LABS: CALCIUM 7.5 mg/dl (8.4-10.2)
[2016-09-14 05:24] LABS: MAGNESIUM 2.1 mg/dl (1.7-2.5); PHOSPHORUS 3.8 mg/dl (2.5-4.9)
[2016-09-14 05:29] LABS: CONDITION 1; LH ANALYZER COMMENTS 1
[2016-09-14] MEDS: HEPARIN 5,000 UNIT/0.5 ML SYG SC SCH ×3 (05:36→21:55)
[2016-09-14] MEDS: CALCIUM CARBONATE 500 MG CHEW TAB GTB SCH ×3 (08:12→17:32)
[2016-09-14] MEDS: FERROUS SULFATE 60 MG/ML 5ML CUP GTB SCH ×2 (08:14→21:35)
[2016-09-14] MEDS: PYRIDOXINE 50 MG TAB GTB SCH (08:14)
[2016-09-14] MEDS: METOPROLOL 25 MG TAB GTB SCH ×2 (08:15→21:34)
[2016-09-14] MEDS: ALLOPURINOL 100 MG TAB GTB SCH (08:15)
[2016-09-14] MEDS: ASPIRIN 81 MG TAB GTB SCH (08:15)
[2016-09-14] MEDS: ASCORBIC ACID 500 MG TAB GTB SCH (08:16)
[2016-09-14] MEDS: CHOLECALCIFEROL 1,000 UNIT TAB GTB SCH (08:17)
[2016-09-14] MEDS: ACETYLCYSTEINE 600 MG CAP GTB SCH ×2 (08:17→21:33)
[2016-09-14] MEDS: LACTOBACILLUS CHEW TAB GTB SCH ×3 (08:17→21:34)
[2016-09-14] MEDS: FISH OIL 1,000 MG CAP PO SCH (08:18)
[2016-09-14] MEDS: FAMOTIDINE 20 MG TAB GTB SCH (08:18)
[2016-09-14] MEDS: VITAMIN E 400 UNITS CAP GTB SCH (08:18)
[2016-09-14] MEDS: PREGABALIN 25 MG CAP GTB SCH ×3 (08:18→21:35)
[2016-09-14] MEDS: FLUCONAZOLE 100 MG TAB GTB SCH (08:18)
[2016-09-14] MEDS: FLUOXETINE 20 MG CAP GTB SCH (08:29)
--- NOTE | 2016-09-14 08:33 | CONS ---
Date/Time of Note Date/Time of Note DATE: 09/14/16 TIME: 08:30 Assessment/Plan Assessment/Plan Additional Assessment/Plan 60 yo male with 1) Respiratory Failure 2) HCAP 3) LORNA on CKD, Currently on HD 4) Volume Overload, Anasarca 5) Pulm HTN 6) Morbid Obesity 7) Bilateral lower extremities acute on chronic cellulitis with left toe osteomyelitis. 8) Status post oxacillin-sensitive Staphylococcus aureus septicemia. S/p HD yesterday. Dry UF ordered for today Cont supportive care Cont current treatment and plan. Discussed case with Dr Peres. Consultation Date/Type/Reason Admit Date/Time Aug 13, 2016 at 16:30 Initial Consult Date 08/13/16 Type of Consultation: Nephrology Referring Provider: KELLEN MEDINA MD 24 HR Interval Summary Free Text/Dictation S/p HD yesterday, remain intubated and sedated. Subjective hx not possible: pt critical status Constitutional: requiring O2 Exam/Review of Systems Vital Signs Vitals Vital Signs Date Time Temp Pulse Resp B/P Pulse Ox O2 Delivery O2 Flow Rate FiO2 09/14/16 07:30 65 18 100/65 100 09/14/16 07:00 Mechanical Ventilator 09/14/16 05:35 50 09/14/16 04:00 98.3 Intake and Output 09/13/16 09/13/16 09/14/16 15:00 23:00 07:00 Intake Total 586 ml 1038.928 ml 586.969 ml Output Total 150 ml 2575 ml 60 ml Balance 436 ml -1536.072 ml 526.969 ml Exam ENMT: intubated, mucosa pink and moist Respiratory: crackles/rales, No diminished breath sounds Cardiovascular: edema, regular rate and rhythm Gastrointestinal: distended, non-tender, soft Extremities: pitting pedal edema 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: other (sedated) Skin: No diaphoresis Results Result Diagram: 09/14/16 0415 09/14/16 0415 Results 24 hrs Laboratory Tests Test 09/13/16 09:01 09/13/16 12:34 09/13/16 17:02 09/13/16 19:49 Bedside Glucose 96 118 132 157 Test 09/14/16 00:34 09/14/16 04:15 09/14/16 05:19 Bedside Glucose 102 77 Anion Gap 15 Basophils # 0.1 Basophils % 0.5 Blood Morphology Comment Blood Urea Nitrogen 49 #H Calcium Level 7.5 L Carbon Dioxide Level 28 Chloride Level 98 Creatinine 1.57 H Eosinophils # 0.9 H Eosinophils % 8.0 H Glucose Level 78 Hematocrit 27.1 L Hemoglobin 8.9 L Lymphocytes # 0.8 Lymphocytes % 6.8 L Magnesium Level 2.1 Mean Corpuscular Hemoglobin 25.5 L Mean Corpuscular Hemoglobin Concent 32.7 Mean Corpuscular Volume 77.9 L Mean Platelet Volume 8.9 Monocytes # 1.0 H Monocytes % 9.4 Neutrophils # 8.4 H Neutrophils % 75.3 Nucleated Red Blood Cells # 0.0 Nucleated Red Blood Cells % 0.0 Phosphorus Level 3.8 Platelet Count 207 Potassium Level 3.6 Red Blood Count 3.49 L Red Cell Distribution Width 20.4 H Sodium Level 137 White Blood Count 11.1 H Medications Medications Current Medications Morphine Sulfate (morphine) 2 mg Q4H PRN IV SEVERE PAIN LEVEL 7-10 Last administered on 09/03/16at 12:28; Admin Dose 2 MG; Start 08/13/16 at 17:30 Fish Oil (Fish Oil) 1,000 mg DAILY PO Last administered on 09/13/16at 08:40; Admin Dose 1,000 MG; Start 08/14/16 at 09:00 Miscellaneous Information 1 ea NOTE XX ; Start 08/13/16 at 18:00 Glucose (Glutose) 15 gm Q15M PRN PO DECREASED GLUCOSE; Start 08/13/16 at 18:00 Glucose (Glutose) 22.5 gm Q15M PRN PO DECREASED GLUCOSE; Start 08/13/16 at 18: 00 Dextrose (D50w Syringe) 25 ml Q15M PRN IV DECREASED GLUCOSE Last administered on 09/10/16at 09:18; Admin Dose 25 ML; Start 08/13/16 at 18:00 Dextrose (D50w Syringe) 50 ml Q15M PRN IV DECREASED GLUCOSE; Start 08/13/16 at 18:00 Glucagon (Glucagen) 1 mg Q15M PRN IM DECREASED GLUCOSE; Start 08/13/16 at 18: 00 Glucose (Glutose) 15 gm Q15M PRN BUCCAL DECREASED GLUCOSE; Start 08/13/16 at 18:00 Sodium Hypochlorite ([place]akin'S (1/4 Strength)) 1 applic DAILY IRR Last administered on 09/13/16at 09:16; Admin Dose 1 APPLIC; Start 08/13/16 at 20:00 IV Flush (NS 10 ml) 10 ml PRN PRN IV IV PTOTOCOL; Start 08/14/16 at 17:00 Ondansetron HCl (Zofran Inj) 4 mg Q4H PRN IV NAUSEA AND/OR VOMITING; Start 08/16/16 at 12:30 Phenol 1 lozenge 1 lozenge Q1H PRN MT DRY MOUTH Last administered on 08/20/16at 21:28; Admin Dose 1 LOZENGE; Start 08/20/16 at 20:30 Norepinephrine/ Dextrose (Levophed/D5W) 500 ml @ 1.87 mls/hr TITRATE IV ; Start 09/09/16 at 08:00 Lorazepam (Ativan) 2 mg Q4H PRN IV anxiety; Start 09/09/16 at 10:30 Heparin Sodium (Porcine) (Heparin (5000 Units/0.5 ml)) 5,000 unit Q8 SC Last administered on 09/14/16at 05:36; Admin Dose 5,000 UNIT; Start 09/09/16 at 22: 00 Insulin Aspart (Novolog Insulin Pen) NOVOLOG *MILD* ALGORI... Q4 SC Last administered on 09/13/16at 23:16; Admin Dose 1 UNIT; Start 09/11/16 at 01:00 Insulin Glargine 10 unit 10 unit HS SC Last administered on 09/13/16at 23:15; Admin Dose 10 UNIT; Start 09/10/16 at 22:00 Colistimethate Sodium/Sodium Chloride (Coly-Mycin/NS) 100 ml @ 50 mls/hr Q24H IVPB Last administered on 09/13/16at 17:00; Admin Dose 50 MLS/HR; Start at 16:00 Acetylcysteine (Nac) 600 mg BID GTB Last administered on 09/13/16at 20:16; Admin Dose 600 MG; Start 09/12/16 at 09:00 Allopurinol (Zyloprim) 100 mg DAILY GTB Last administered on 09/13/16at 08:40; Admin Dose 100 MG; Start 09/12/16 at 09:00 Ascorbic Acid (Vitamin C) 500 mg DAILY GTB Last administered on 09/13/16 08: 40; Admin Dose 500 MG; Start 09/12/16 at 09:00 Atorvastatin Calcium (Lipitor) 10 mg QHS GTB Last administered on 09/13/16 20 :17; Admin Dose 10 MG; Start 09/12/16 at 21:00 Cholecalciferol (Vitamin D) 1,000 unit DAILY GTB Last administered on 08:40; Admin Dose 1,000 UNIT; Start 09/12/16 at 09:00 Diphenhydramine HCl (Benadryl) 25 mg Q6H PRN GTB ITCHING; Start 09/12/16 at 08 :30 Famotidine (Pepcid) 20 mg DAILY GTB Last administered on 09/13/16 08:40; Admin Dose 20 MG; Start 09/12/16 at 09:00 Ferrous Sulfate (Feosol Liquid Cup) 300 mg BID GTB Last administered on 20:17; Admin Dose 300 MG; Start 09/12/16 at 09:00 Fluconazole (Diflucan) 100 mg DAILY GTB Last administered on 09/13/16 08:39; Admin Dose 100 MG; Start 09/12/16 at 09:00 Fluoxetine HCl (Prozac) 20 mg DAILY GTB Last administered on 09/13/16 08:40; Admin Dose 20 MG; Start 09/12/16 at 10:00 Lactobacillus Acidoph/Bulgaricus (Floranex) 1 tab TID GTB Last administered on 09/13/16 20:16; Admin Dose 1 TAB; Start 09/12/16 at 09:00 Metoprolol Tartrate (Lopressor) 12.5 mg BID GTB Last administered on 20:17; Admin Dose 12.5 MG; Start 09/12/16 at 09:00 Pregabalin (Lyrica) 50 mg TID GTB Last administered on 09/13/16 20:17; Admin Dose 50 MG; Start 09/12/16 at 09:00 Pyridoxine HCl (Vitamin B6) 100 mg DAILY GTB Last administered on 09/13/16 08 :39; Admin Dose 100 MG; Start 09/12/16 at 09:00 Vitamin E (Vitamin E) 400 units DAILY GTB Last administered on 12/29/16at 08:39 ; Admin Dose 400 UNITS; Start 09/12/16 at 10:00 Aspirin (Aspirin) 81 mg DAILY GTB Last administered on 09/13/16at 08:39; Admin Dose 81 MG; Start 09/12/16 at 09:00 Acetaminophen (Tylenol Liquid) 650 mg Q6H PRN GTB PAIN 1-3 OR TEMP; Start at 08:30 Acetaminophen/ Hydrocodone Bitart ([place] (5/325)) 1 tab Q6H PRN GTB MODERATE PAIN LEVEL 4-6; Start 09/12/16 at 11:30 Acetaminophen/ Hydrocodone Bitart ([place] (5/325)) 2 tab Q6H PRN GTB MODERATE PAIN LEVEL 4-6; Start 09/12/16 at 13:00 Lorazepam (Ativan) 1 mg Q6 PRN GTB ANXIETY; Start 09/12/16 at 08:30 Lorazepam (Ativan) 1 mg HS PRN GTB ANXIETY, HELP WITH SLEEP; Start 09/12/16 at 08:30 Simethicone (Mylicon) 80 mg Q6H PRN GTB INTESTINAL SPASMS/CRAMPING; Start at 11:30 Zolpidem Tartrate (Ambien) 10 mg HS PRN GTB INSOMNIA; Start 09/12/16 at 08:30 Docusate Sodium 100 mg 100 mg Q12 PRN GTB CONSTIPATION; Start 09/12/16 at 08: 30 Propofol (Diprivan) 100 ml @ 3.915 mls/ hr TITRATE PRN IV maintain rass -2 to -3 Last administered on 09/14/16at 06:54; Admin Dose 19.575 MLS/HR; Start 09/13 at 19:30 Procedures Procedures PROCEDURE: XR Chest. CLINICAL INDICATION: Respiratory failure TECHNIQUE: An AP view of the chest was obtained. COMPARISON: Chest x-ray dated 09/12/2016 FINDINGS: The endotracheal tube tip is approximately 5.3 cm above the nithin. The tip of the enteric tube extends below the left diaphragm. There is a right chest Perma-Cath with tip near the cavoatrial junction. There is a right upper extremity PICC line tip in the mid SVC. There are diffuse bilateral interstitial opacities. There is a small right pleural effusion. No focal airspace opacification or pneumothorax is seen. The cardiomediastinal silhouette is mildly enlarged . Calcifications are seen within the aortic arch. The osseous structures demonstrate senescent changes. IMPRESSION: 1. Findings suggestive of interstitial edema with small right pleural effusion. No significant interval change. 2. Mild cardiomegaly and aortic atherosclerosis. 3. Tubes and lines, as described above. RPTAT: HH .Georgie Block MD, MD Date Time Electronically viewed and signed by .Georgie Block MD, MD on 09/13/2016 11 :31 DYAN FRANKLIN MD Sep 14, 2016 08:33
--- NOTE | 2016-09-14 09:03 | PN ---
Date/Time of Note Date/Time of Note DATE: 09/14/16 TIME: 09:02 Assessment/Plan VTE Prophylaxis VTE Prophylaxis Intervention: heparin Lines/Catheters IV Catheter Type (from Nrsg): Luis Central line still needed: Yes Urinary Cath still in place: Yes Reason Cath still needed: terminal illness/intractable pain Assessment/Plan Chief Complaint/Hosp Course 1. Left great toe osteomyelitis. Continue antibiotics as per infectious disease. Status post evaluation by vascular surgery. 2. Acute on chronic respiratory failure, hypoxic and hypercapnic. S/P intubation on 09/06/2016 because of worsening respiratory distress. Continue inhaled bronchodilators. 3. Ventilator associated pneumonia. Sputum culture positive for Acinetobacter baumannii. ID on board. Antibiotics as per ID. 4. Pulmonary hypertension. Continue supplemental oxygen. 5. Acute on chronic kidney disease. The patient was newly started on hemodialysis. Nephrology following. 6. Congestive heart failure exacerbation. Acute on chronic diastolic dysfunction. Continue hemodialysis as per nephrology. 7. Type 2 diabetes mellitus. Hemoglobin A1c 5.8. Continue sliding scale insulin. 8. Essential hypertension. Continue antihypertensives. 9. Atrial fibrillation. Rate controlled. Cardiology following. Therapeutic anticoagulation will be deferred to cardiology. 10. Dyslipidemia. Continue statins. 11. Gout. Continue allopurinol. 12. Major depression. Continue selective serotonin reuptake inhibitors. 13. Morbid obesity with BMI of 42.5 kg/meter squared. 14. Fluid, electrolytes, and nutrition. Continue NGT feedings. 15. Deep vein thrombosis prophylaxis. Subcutaneous heparin. 16. Gastrointestinal prophylaxis. Histamine 2 blockers. PLAN: Wean off ventilator as per pulmonary. Continue ICU monitoring. Case discussed with Dr. Tiptno. Critical care time. 35 minutes. Problems: Subjective 24 Hr Interval Summary Free Text/Dictation No changes in status. Exam/Review of Systems Vital Signs Vitals Vital Signs Date Time Temp Pulse Resp B/P Pulse Ox O2 Delivery O2 Flow Rate FiO2 09/14/16 07:30 65 18 100/65 100 09/14/16 07:00 Mechanical Ventilator 09/14/16 05:35 50 09/14/16 04:00 98.3 Intake and Output 09/13/16 09/13/16 09/14/16 15:00 23:00 07:00 Intake Total 586 ml 1038.928 ml 586.969 ml Output Total 150 ml 2575 ml 60 ml Balance 436 ml -1536.072 ml 526.969 ml Exam GENERAL: This is a morbidly obese male sitting in a chair in mild respiratory distress with oxygen via nasal cannula. HEENT: Head normocephalic and atraumatic. Eyes: Anicteric sclerae. Conjunctivae clear. ENT: Nasal septum. Oral mucosa is dry. NECK: Supple. RESPIRATORY: Bilaterally diminished breath sounds. Fine rales. On AC mode ventilation. CARDIAC: Irregularly irregular rhythm. Systolic murmur. ABDOMEN: Soft, nontender, but protuberant. Bowel sounds hypoactive in all 4 quadrants. GENITOURINARY: Deferred. EXTREMITIES: Bilateral lower extremity 2+ edema. Bilateral lower extremity Patrick wrap. NEUROLOGIC: The patient is somnolent now. On propofol gtt. Results Result Diagram: 09/14/165 09/14/16 0415 Results 24 hrs Laboratory Tests Test 09/13/16 12:34 09/13/16 17:02 09/13/16 19:49 09/14/16 00:34 Bedside Glucose 118 132 157 102 Test 09/14/16 04:15 09/14/16 05:19 09/14/16 08:33 Anion Gap 15 Basophils # 0.1 Basophils % 0.5 Blood Morphology Comment Blood Urea Nitrogen 49 #H Calcium Level 7.5 L Carbon Dioxide Level 28 Chloride Level 98 Creatinine 1.57 H Eosinophils # 0.9 H Eosinophils % 8.0 H Glucose Level 78 Hematocrit 27.1 L Hemoglobin 8.9 L Lymphocytes # 0.8 Lymphocytes % 6.8 L Magnesium Level 2.1 Mean Corpuscular Hemoglobin 25.5 L Mean Corpuscular Hemoglobin Concent 32.7 Mean Corpuscular Volume 77.9 L Mean Platelet Volume 8.9 Monocytes # 1.0 H Monocytes % 9.4 Neutrophils # 8.4 H Neutrophils % 75.3 Nucleated Red Blood Cells # 0.0 Nucleated Red Blood Cells % 0.0 Phosphorus Level 3.8 Platelet Count 207 Potassium Level 3.6 Red Blood Count 3.49 L Red Cell Distribution Width 20.4 H Sodium Level 137 White Blood Count 11.1 H Bedside Glucose 77 83 Medications Medications Current Medications Morphine Sulfate (morphine) 2 mg Q4H PRN IV SEVERE PAIN LEVEL 7-10 Last administered on 09/03/16at 12:28; Admin Dose 2 MG; Start 08/13/16 at 17:30 Fish Oil (Fish Oil) 1,000 mg DAILY PO Last administered on 09/14/16at 08:18; Admin Dose 1,000 MG; Start 08/14/16 at 09:00 Miscellaneous Information 1 ea NOTE XX ; Start 08/13/16 at 18:00 Glucose (Glutose) 15 gm Q15M PRN PO DECREASED GLUCOSE; Start 08/13/16 at 18:00 Glucose (Glutose) 22.5 gm Q15M PRN PO DECREASED GLUCOSE; Start 08/13/16 at 18: 00 Dextrose (D50w Syringe) 25 ml Q15M PRN IV DECREASED GLUCOSE Last administered on 09/10/16at 09:18; Admin Dose 25 ML; Start 08/13/16 at 18:00 Dextrose (D50w Syringe) 50 ml Q15M PRN IV DECREASED GLUCOSE; Start 08/13/16 at 18:00 Glucagon (Glucagen) 1 mg Q15M PRN IM DECREASED GLUCOSE; Start 08/13/16 at 18: 00 Glucose (Glutose) 15 gm Q15M PRN BUCCAL DECREASED GLUCOSE; Start 08/13/16 at 18:00 Sodium Hypochlorite (Dakin'S (1/4 Strength)) 1 applic DAILY IRR Last administered on 09/13/16at 09:16; Admin Dose 1 APPLIC; Start 08/13/16 at 20:00 IV Flush (NS 10 ml) 10 ml PRN PRN IV IV PTOTOCOL; Start 08/14/16 at 17:00 Ondansetron HCl (Zofran Inj) 4 mg Q4H PRN IV NAUSEA AND/OR VOMITING; Start 08/16/16 at 12:30 Phenol 1 lozenge 1 lozenge Q1H PRN MT DRY MOUTH Last administered on 08/20/16at 21:28; Admin Dose 1 LOZENGE; Start 08/20/16 at 20:30 Norepinephrine/ Dextrose (Levophed/D5W) 500 ml @ 1.87 mls/hr TITRATE IV ; Start 09/09/16 at 08:00 Lorazepam (Ativan) 2 mg Q4H PRN IV anxiety; Start 09/09/16 at 10:30 Heparin Sodium (Porcine) (Heparin (5000 Units/0.5 ml)) 5,000 unit Q8 SC Last administered on 09/14/16at 05:36; Admin Dose 5,000 UNIT; Start 09/09/16 at 22: 00 Insulin Aspart (Novolog Insulin Pen) NOVOLOG *MILD* ALGORI... Q4 SC Last administered on 09/13/16 23:16; Admin Dose 1 UNIT; Start 09/11/16 at 01:00 Insulin Glargine 10 unit 10 unit HS SC Last administered on 09/13/16 23:15; Admin Dose 10 UNIT; Start 09/10/16 at 22:00 Colistimethate Sodium/Sodium Chloride (Coly-Mycin/NS) 100 ml @ 50 mls/hr Q24H IVPB Last administered on 09/13/16 17:00; Admin Dose 50 MLS/HR; Start at 16:00 Acetylcysteine (Nac) 600 mg BID GTB Last administered on 09/14/16 08:17; Admin Dose 600 MG; Start 09/12/16 at 09:00 Allopurinol (Zyloprim) 100 mg DAILY GTB Last administered on 09/14/16 08:15; Admin Dose 100 MG; Start 09/12/16 at 09:00 Ascorbic Acid (Vitamin C) 500 mg DAILY GTB Last administered on 09/14/16 08: 16; Admin Dose 500 MG; Start 09/12/16 at 09:00 Atorvastatin Calcium (Lipitor) 10 mg QHS GTB Last administered on 09/13/16 20 :17; Admin Dose 10 MG; Start 09/12/16 at 21:00 Cholecalciferol (Vitamin D) 1,000 unit DAILY GTB Last administered on 08:17; Admin Dose 1,000 UNIT; Start 09/12/16 at 09:00 Diphenhydramine HCl (Benadryl) 25 mg Q6H PRN GTB ITCHING; Start 09/12/16 at 08 :30 Famotidine (Pepcid) 20 mg DAILY GTB Last administered on 09/14/16 08:18; Admin Dose 20 MG; Start 09/12/16 at 09:00 Ferrous Sulfate (Feosol Liquid Cup) 300 mg BID GTB Last administered on 08:14; Admin Dose 300 MG; Start 09/12/16 at 09:00 Fluconazole (Diflucan) 100 mg DAILY GTB Last administered on 09/14/16 08:18; Admin Dose 100 MG; Start 09/12/16 at 09:00 Fluoxetine HCl (Prozac) 20 mg DAILY GTB Last administered on 09/14/16 08:29; Admin Dose 20 MG; Start 09/12/16 at 10:00 Lactobacillus Acidoph/Bulgaricus (Floranex) 1 tab TID GTB Last administered on 09/14/16 08:17; Admin Dose 1 TAB; Start 09/12/16 at 09:00 Metoprolol Tartrate (Lopressor) 12.5 mg BID GTB Last administered on 08:15; Admin Dose 12.5 MG; Start 09/12/16 at 09:00 Pregabalin (Lyrica) 50 mg TID GTB Last administered on 09/14/16 08:18; Admin Dose 50 MG; Start 09/12/16 at 09:00 Pyridoxine HCl (Vitamin B6) 100 mg DAILY GTB Last administered on 09/14/16 08 :14; Admin Dose 100 MG; Start 09/12/16 at 09:00 Vitamin E (Vitamin E) 400 units DAILY GTB Last administered on 09/14/16 08:18 ; Admin Dose 400 UNITS; Start 09/12/16 at 10:00 Aspirin (Aspirin) 81 mg DAILY GTB Last administered on 09/14/16 08:15; Admin Dose 81 MG; Start 09/12/16 at 09:00 Acetaminophen (Tylenol Liquid) 650 mg Q6H PRN GTB PAIN 1-3 OR TEMP; Start at 08:30 Acetaminophen/ Hydrocodone Bitart ([place] (5/325)) 1 tab Q6H PRN GTB MODERATE PAIN LEVEL 4-6; Start 09/12/16 at 11:30 Acetaminophen/ Hydrocodone Bitart ([place] (5/325)) 2 tab Q6H PRN GTB MODERATE PAIN LEVEL 4-6; Start 09/12/16 at 13:00 Lorazepam (Ativan) 1 mg Q6 PRN GTB ANXIETY; Start 09/12/16 at 08:30 Lorazepam (Ativan) 1 mg HS PRN GTB ANXIETY, HELP WITH SLEEP; Start 09/12/16 at 08:30 Simethicone (Mylicon) 80 mg Q6H PRN GTB INTESTINAL SPASMS/CRAMPING; Start at 11:30 Zolpidem Tartrate (Ambien) 10 mg HS PRN GTB INSOMNIA; Start 09/12/16 at 08:30 Docusate Sodium 100 mg 100 mg Q12 PRN GTB CONSTIPATION; Start 09/12/16 at 08: 30 Propofol (Diprivan) 100 ml @ 3.915 mls/ hr TITRATE PRN IV maintain rass -2 to -3 Last administered on 09/14/16at 06:54; Admin Dose 19.575 MLS/HR; Start 09/13 at 19:30 GIO BISHOP NP Sep 14, 2016 09:03
--- NOTE | 2016-09-14 10:45 | CONS ---
Date/Time of Note Date/Time of Note DATE: 09/14/16 TIME: 10:44 Consult Date/Type/Reason Admit Date/Time Aug 13, 2016 at 16:30 Initial Consult Date 08/13/16 Type of Consultation: pulmonary Ordering Provider: KELLEN MEDINA MD Subjective Patient remains intubated on mechanical ventilation no vasopressors Objective Vital Signs Date Time Temp Pulse Resp B/P Pulse Ox O2 Delivery O2 Flow Rate FiO2 09/14/16 10:00 62 18 102/66 100 Mechanical Ventilator 09/14/16 08:00 97.9 09/14/16 08:00 60 Intake and Output 09/13/16 09/13/16 09/14/16 15:00 23:00 07:00 Intake Total 586 ml 1038.928 ml 656.544 ml Output Total 150 ml 2575 ml 90 ml Balance 436 ml -1536.072 ml 566.544 ml PHYSICAL EXAMINATION GENERAL: Elderly gentleman, intubated on mechanical ventilation, opens eyes and appears somewhat agitated. Orally intubated. VITAL SIGNS: see below. HEENT: Pupils equal, round, and reactive to light. CARDIAC: S1, S2, tachycardia. CHEST: Diminished air entry bilaterally. ABDOMEN: Mildly distended. No bowel sounds. EXTREMITIES: No cyanosis, clubbing, edema +2 NEUROLOGIC: No focal deficits. Results/Medications Result Diagram: 09/14/16 0415 09/14/16 0415 Results 24 hrs Laboratory Tests Test 09/13/16 12:34 09/13/16 17:02 09/13/16 19:49 09/14/16 00:34 Bedside Glucose 118 132 157 102 Test 09/14/16 04:15 09/14/16 05:19 09/14/16 08:33 Anion Gap 15 Basophils # 0.1 Basophils % 0.5 Blood Morphology Comment Blood Urea Nitrogen 49 #H Calcium Level 7.5 L Carbon Dioxide Level 28 Chloride Level 98 Creatinine 1.57 H Eosinophils # 0.9 H Eosinophils % 8.0 H Glucose Level 78 Hematocrit 27.1 L Hemoglobin 8.9 L Lymphocytes # 0.8 Lymphocytes % 6.8 L Magnesium Level 2.1 Mean Corpuscular Hemoglobin 25.5 L Mean Corpuscular Hemoglobin Concent 32.7 Mean Corpuscular Volume 77.9 L Mean Platelet Volume 8.9 Monocytes # 1.0 H Monocytes % 9.4 Neutrophils # 8.4 H Neutrophils % 75.3 Nucleated Red Blood Cells # 0.0 Nucleated Red Blood Cells % 0.0 Phosphorus Level 3.8 Platelet Count 207 Potassium Level 3.6 Red Blood Count 3.49 L Red Cell Distribution Width 20.4 H Sodium Level 137 White Blood Count 11.1 H Bedside Glucose 77 83 Medications Current Medications Morphine Sulfate (morphine) 2 mg Q4H PRN IV SEVERE PAIN LEVEL 7-10 Last administered on 09/03/16at 12:28; Admin Dose 2 MG; Start 08/13/16 at 17:30 Fish Oil (Fish Oil) 1,000 mg DAILY PO Last administered on 09/14/16at 08:18; Admin Dose 1,000 MG; Start 08/14/16 at 09:00 Miscellaneous Information 1 ea NOTE XX ; Start 08/13/16 at 18:00 Glucose (Glutose) 15 gm Q15M PRN PO DECREASED GLUCOSE; Start 08/13/16 at 18:00 Glucose (Glutose) 22.5 gm Q15M PRN PO DECREASED GLUCOSE; Start 08/13/16 at 18: 00 Dextrose (D50w Syringe) 25 ml Q15M PRN IV DECREASED GLUCOSE Last administered on 09/10/16at 09:18; Admin Dose 25 ML; Start 08/13/16 at 18:00 Dextrose (D50w Syringe) 50 ml Q15M PRN IV DECREASED GLUCOSE; Start 08/13/16 at 18:00 Glucagon (Glucagen) 1 mg Q15M PRN IM DECREASED GLUCOSE; Start 08/13/16 at 18: 00 Glucose (Glutose) 15 gm Q15M PRN BUCCAL DECREASED GLUCOSE; Start 08/13/16 at 18:00 Sodium Hypochlorite (Dakin'S (1/4 Strength)) 1 applic DAILY IRR Last administered on 09/13/16at 09:16; Admin Dose 1 APPLIC; Start 08/13/16 at 20:00 IV Flush (NS 10 ml) 10 ml PRN PRN IV IV PTOTOCOL; Start 08/14/16 at 17:00 Ondansetron HCl (Zofran Inj) 4 mg Q4H PRN IV NAUSEA AND/OR VOMITING; Start 08/16/16 at 12:30 Phenol 1 lozenge 1 lozenge Q1H PRN MT DRY MOUTH Last administered on 08/20/16at 21:28; Admin Dose 1 LOZENGE; Start 08/20/16 at 20:30 Norepinephrine/ Dextrose (Levophed/D5W) 500 ml @ 1.87 mls/hr TITRATE IV ; Start 09/09/16 at 08:00 Lorazepam (Ativan) 2 mg Q4H PRN IV anxiety; Start 09/09/16 at 10:30 Heparin Sodium (Porcine) (Heparin (5000 Units/0.5 ml)) 5,000 unit Q8 SC Last administered on 09/14/16at 05:36; Admin Dose 5,000 UNIT; Start 09/09/16 at 22: 00 Insulin Aspart (Novolog Insulin Pen) NOVOLOG *MILD* ALGORI... Q4 SC Last administered on 09/13/16 23:16; Admin Dose 1 UNIT; Start 09/11/16 at 01:00 Insulin Glargine 10 unit 10 unit HS SC Last administered on 09/13/16 23:15; Admin Dose 10 UNIT; Start 09/10/16 at 22:00 Colistimethate Sodium/Sodium Chloride (Coly-Mycin/NS) 100 ml @ 50 mls/hr Q24H IVPB Last administered on 09/13/16 17:00; Admin Dose 50 MLS/HR; Start at 16:00 Acetylcysteine (Nac) 600 mg BID GTB Last administered on 09/14/16 08:17; Admin Dose 600 MG; Start 09/12/16 at 09:00 Allopurinol (Zyloprim) 100 mg DAILY GTB Last administered on 09/14/16 08:15; Admin Dose 100 MG; Start 09/12/16 at 09:00 Ascorbic Acid (Vitamin C) 500 mg DAILY GTB Last administered on 09/14/16 08: 16; Admin Dose 500 MG; Start 09/12/16 at 09:00 Atorvastatin Calcium (Lipitor) 10 mg QHS GTB Last administered on 09/13/16 20 :17; Admin Dose 10 MG; Start 09/12/16 at 21:00 Cholecalciferol (Vitamin D) 1,000 unit DAILY GTB Last administered on 08:17; Admin Dose 1,000 UNIT; Start 09/12/16 at 09:00 Diphenhydramine HCl (Benadryl) 25 mg Q6H PRN GTB ITCHING; Start 09/12/16 at 08 :30 Famotidine (Pepcid) 20 mg DAILY GTB Last administered on 09/14/16 08:18; Admin Dose 20 MG; Start 09/12/16 at 09:00 Ferrous Sulfate (Feosol Liquid Cup) 300 mg BID GTB Last administered on 08:14; Admin Dose 300 MG; Start 09/12/16 at 09:00 Fluconazole (Diflucan) 100 mg DAILY GTB Last administered on 09/14/16 08:18; Admin Dose 100 MG; Start 09/12/16 at 09:00 Fluoxetine HCl (Prozac) 20 mg DAILY GTB Last administered on 09/14/16 08:29; Admin Dose 20 MG; Start 09/12/16 at 10:00 Lactobacillus Acidoph/Bulgaricus (Floranex) 1 tab TID GTB Last administered on 09/14/16 08:17; Admin Dose 1 TAB; Start 09/12/16 at 09:00 Metoprolol Tartrate (Lopressor) 12.5 mg BID GTB Last administered on 08:15; Admin Dose 12.5 MG; Start 09/12/16 at 09:00 Pregabalin (Lyrica) 50 mg TID GTB Last administered on 09/14/16 08:18; Admin Dose 50 MG; Start 09/12/16 at 09:00 Pyridoxine HCl (Vitamin B6) 100 mg DAILY GTB Last administered on 09/14/16 08 :14; Admin Dose 100 MG; Start 09/12/16 at 09:00 Vitamin E (Vitamin E) 400 units DAILY GTB Last administered on 09/14/16 08:18 ; Admin Dose 400 UNITS; Start 09/12/16 at 10:00 Aspirin (Aspirin) 81 mg DAILY GTB Last administered on 09/14/16 08:15; Admin Dose 81 MG; Start 09/12/16 at 09:00 Acetaminophen (Tylenol Liquid) 650 mg Q6H PRN GTB PAIN 1-3 OR TEMP; Start at 08:30 Acetaminophen/ Hydrocodone Bitart ([place] (5/325)) 1 tab Q6H PRN GTB MODERATE PAIN LEVEL 4-6; Start 09/12/16 at 11:30 Acetaminophen/ Hydrocodone Bitart ([place] (5/325)) 2 tab Q6H PRN GTB MODERATE PAIN LEVEL 4-6; Start 09/12/16 at 13:00 Lorazepam (Ativan) 1 mg Q6 PRN GTB ANXIETY; Start 09/12/16 at 08:30 Lorazepam (Ativan) 1 mg HS PRN GTB ANXIETY, HELP WITH SLEEP; Start 09/12/16 at 08:30 Simethicone (Mylicon) 80 mg Q6H PRN GTB INTESTINAL SPASMS/CRAMPING; Start at 11:30 Zolpidem Tartrate (Ambien) 10 mg HS PRN GTB INSOMNIA; Start 09/12/16 at 08:30 Docusate Sodium 100 mg 100 mg Q12 PRN GTB CONSTIPATION; Start 09/12/16 at 08: 30 Propofol (Diprivan) 100 ml @ 3.915 mls/ hr TITRATE PRN IV maintain rass -2 to -3 Last administered on 09/14/16at 06:54; Admin Dose 19.575 MLS/HR; Start 09/13 at 19:30 Assessment/Plan Chief Complaint/Hosp Course Assessment and plan 1. . Acute on chronic respiratory failure, hypoxic and hypercapnic. S/P intubation on 09/06/2016 because of worsening respiratory distress. Continue mechanical ventilation not for weaning today. Significant pulmonary edema on chest x-ray not stable for extubation at this point 2. Left great toe osteomyelitis. Continue antibiotics as per infectious disease. 3..Pulmonary hypertension. Continue supplemental oxygen. 4. End-stage renal failure now on hemodialysis. Evidence of primary edema will require continued volume removal 5. Dysphagia continue tube feeding 6. Atrial fibrillation currently rate controlled Disposition continue current level of care Problems: EDNA BUSTILLO MD, [facility] Sep 14, 2016 10:45
[2016-09-14] MEDS: SODIUM HYPOCHLORITE 0.125% 473 ML BTL IRR SCH (12:36)
--- NOTE | 2016-09-14 15:10 | PN ---
DATE: 09/14/2016 SUBJECTIVE: This is an infectious disease progress note. No changes overnight. The patient is katheryn ke, comfortable on vent. No fevers. WBC today 11.1 with H and H 8.9 and 27.1, platelets 207, neutrophils 75.3, no bands, BUN 49, creatin ine 1.57. INDWELLINGS: ET tube, OG tube, right chest PermCath and PICC line placed on 08/14/2016. ANTIMICROBIALS: Colistin and vancomycin. PHYSICAL EXAMINATION: GENERAL: This is a morbidly obese, middle-aged white man who is lying comfortably in bed. HEENT: Head atraumatic, normocephalic. Sclerae anicteric. Buccal mucosa dry. NECK: Supple, trachea midline. CHEST: Rise symmetrical. Breath sounds diminished to bases. HEART: S1, S2. ABDOMEN: Soft, bowel tones present. EXTREMITIES: Bilateral lower extremities Patrick wrapped. ASSESSMENT: 1. Acute on chronic respiratory failure. 2. Resolving pneumonia with sputum culture growing multi-drug resistant Acinetobacter baumannii, on colistin day #4. 3. Status post oxacillin-sensitive Staphylococcus aureus septicemia on admission with repeat cultur es being negative, 4. Bilateral lower extremity chronic venous stasis with left great toe osteomyelitis, completing an tibiotics. 5. Acute on chronic kidney disease on hemodialysis. 6. Diabetes. 7. Coronary artery disease. 8. Morbid obesity. PLAN: The patient remains stable, covered with appropriate antibiotics. He will need to complete 2 more weeks of antibiotics for osteomyelitis. Continue vent management as per pulmonary. Follow re commendations of specialists. Dictated By: JAMEY VAZQUEZ [employer] WORKER for DONAVAN HALLMAN/GREGORY Conf#: [id number] DID#: [id number]
[2016-09-14] MEDS: COLISTIMETHATE 100 MG in SOD CHLORIDE 0.9% 100 ML IVPB SCH (17:15)
--- NOTE | 2016-09-14 17:59 | RADRPT ---
Echocardiogram Report Patient Name: BLACK BENDER Gender: Male Date: 1955 Study Date: 13-Sep-2016 Director Of Partnerships: Tone Hoskins RDCS Location: [id number] Ref. Physician: GARDENIA MURRAY Quality: Technically Difficult Study Procedures: Transthoracic echocardiogram with complete 2D, M-Mode, and doppler examination. Indications: Evaluate Pulmonary Pressure. 2D/M Mode Doppler Measurement Value Normal Ranges Measurement Value Normal Ranges LVIDd 2D 4.3 3.5 - 5.6 cm AV Peak Nikita 1.7 m/sec LVIDs 2D 3.0 2.1 - 4.1 cm AV Peak PG 11.6 mmHg LVPWd 2D 0.9 0.6 - 1.1 cm LVOT Peak Nikita 0.7 m/sec IVSd 2D 0.8 0.6 - 1.1 cm LVOT Peak PG 1.8 mmHg AoR Diam 2D 3.1 2.0 - 3.7 cm TR Peak Nikita 2.9 m/sec EDV 2D 82.3 cm3 TR Peak PG 34.4 mmHg ESV 2D 26.7 cm3 RVSP 49.0 mmHg LA Dimen 2D 4.8 2.3 - 4.0 cm Findings Left Ventricle: Normal left ventricular systolic function. Normal left ventricular cavity size. Normal left ventricular wall thickness. Ejection fraction is visually estimated at 55 %. Tissue Doppler/Mitral Doppler indices are consistent with restrictive physiology with markedly elevated left atrial pressure (Stage IIIIV diastolic dysfunction). Right Ventricle: Moderate enlargement of right ventricle. Moderate right ventricular hypokinesis. Left Atrium: There is moderate enlargement of left atrium. Right Atrium: There is moderate enlargement of right atrium. Mitral Valve: Mitral valve leaflets appear mildly thickened. Mild mitral annular calcification. Trace mitral regurgitation. Aortic Valve: Aortic valve not well visualized. Mild aortic stenosis. Aortic cusps appear moderately calcified. Trace aortic valve regurgitation. Tricuspid Valve: Normal appearance of the tricuspid valve. Estimated peak PA systolic pressure 49 mmHg. There is mild to moderate tricuspid regurgitation. Pulmonic Valve: Pulmonic valve not well visualized. Pericardium: Normal pericardium with no significant pericardial effusion. Right pleural effusion seen. Aorta: Normal aortic root. IVC: Dilated inferior vena cava without respiratory collapse, however, patient on ventilator. Pulmonary Artery: Normal pulmonary artery size. Conclusions 1.Normal left ventricular systolic function. Normal left ventricular cavity size. Normal left ventricular wall thickness. Ejection fraction is visually estimated at 55 %. Tissue Doppler/Mitral Doppler indices are consistent with restrictive physiology with markedly elevated left atrial pressure (Stage III-IV diastolic dysfunction). 2.There is moderate enlargement of left atrium. 3.There is moderate enlargement of right atrium. 4.Mitral valve leaflets appear mildly thickened. Mild mitral annular calcification. Trace mitral regurgitation. 5.Aortic valve not well visualized. Mild aortic stenosis. Aortic cusps appear moderately calcified. Trace aortic valve regurgitation. 6.Normal appearance of the tricuspid valve. Estimated peak PA systolic pressure 49 mmHg. There is mild to moderate tricuspid regurgitation. 7.Dilated inferior vena cava without respiratory collapse, however, patient on ventilator. Electronically Signed By: Gardenia Murray 14-Sep-2016 17:58:42 -0800 Patient Name: BLACK BENDER Study Date: 13-Sep-2016 [id number]
[2016-09-14] MEDS: INSULIN GLARGINE [LANtus] 3 ML PEN SC SCH (21:00)
[2016-09-14] MEDS: ATORVASTATIN 10 MG TAB GTB SCH (21:34)
[2016-09-15] VITALS (55 sets, daily range): BP systolic 92–128; BP diastolic 56–82; PULSE 59–94; RESP 15–36
[2016-09-15] MEDS: INSULIN ASPART [NOVOLOG] 3 ML PEN SC SCH ×6 (01:00→20:59)
[2016-09-15] MEDS: ALBUTEROL HFA 8 GM INHALER INH SCH ×5 (01:27→21:26)
[2016-09-15] MEDS: IPRATROPIUM (HFA) 12.9 GM INHALER INH SCH ×5 (01:27→21:26)
--- NOTE | 2016-09-15 04:56 | PN ---
DATE: 09/14/2016 CARDIOLOGY FOLLOWUP SUBJECTIVE: Discussed with the patient's . Discussed with the staff in the ICU ____. The patie nt remains in atrial fibrillation. Heart rate is still under good control. Still on the vent ____o xygen. The patient is more awake, responds appropriately. Denies any chest pain to me. MEDICATIONS: Reviewed as per medication reconciliation, personally reviewed. PHYSICAL EXAMINATION: VITAL SIGNS: Temperature 98, heart rate of 70, blood pressure 92/63, respiration rate of 18, satura ting 99%. HEENT: Normocephalic, atraumatic, morbidly obese gentleman. Pupils are equal. Status post intubat ion on the vent. CARDIOVASCULAR: Irregularly irregular, systolic murmur. PULMONARY: Anteriorly with no wheezes. Mild rhonchi, diffuse. GASTROINTESTINAL: Obese, soft, nontender. EXTREMITIES: Positive lower extremity edema. NEUROLOGIC: Awake, responds appropriately. PSYCHIATRIC: Appears to be calm at this point. LABORATORY: WBC 11.1, hemoglobin 8.9, platelets of 207. Sodium 137, potassium 3.6, BUN of 49, crea tinine 1.57, glucose of 78. Chest x-ray done yesterday shows interstitial edema with small pleural effusion, no significant change. Echocardiogram done yesterday which was personally reviewed, showe d normal LV size and ejection fraction of probably about 55%. There is moderate enlargement of left atrium and right atrium. Aortic valve appeared to be heavily calcified not well visualized, probab ly moderate aortic stenosis based on the low gradient. PA pressure estimated about 49 mmHg, with mi ld to moderate tricuspid insufficiency. The IVC appeared to be significantly dilated as well. ASSESSMENT AND PLAN: 1. Hypoxemia respiratory failure, status post intubation on the vent. 2. Atrial fibrillation, chronic, and heart rate controlled. 3. Pulmonary hypertension. 4. Renal failure on dialysis, status post dialysis. 5. Severe anemia. 6. Morbid obesity. RECOMMENDATIONS: Antibiotic is managed as per ID recommendation. Respiratory care will be continue d. Try to titrate down the oxygen as tolerated. Continue with the ICU care. Heart rate is current ly under control on the current regimen. Anticoagulation is on hold until stools are negative for O B and also no plan for any procedure is planned. Continue with the aspirin for the time being, cont inue with the ICU care. More than 40 minutes of critical care time was spent evaluating and treating this patient excluding any procedures, including discussion with the staff as well as patient's . Dictated By: GARDENIA RAZO/GREGORY Conf#: [id number] DID#: [id number] CC: GIO BISHOP JEWEL GAUGER;*EndCC*
[2016-09-15 05:57] LABS: BASOPHILS % 0.1 % (0.0-2.0); EOSINOPHILS # 0.9 10^3/ul (0.0-0.5); EOSINOPHILS % 9.3 % (0.0-7.0); HEMATOCRIT 27.8 % (42.0-52.0); HEMOGLOBIN 8.9 g/dl (14.0-18.0); LYMPHOCYTES # 0.8 10^3/ul (0.8-2.9); LYMPHOCYTES % 8.8 % (15.0-51.0); MEAN CORPUSCULAR HEMOGLOBIN 24.8 pg (29.0-33.0); MEAN CORPUSCULAR HGB CONC 31.9 g/dl (32.0-37.0); MEAN CORPUSCULAR VOLUME 77.8 fl (82.0-101.0); MONOCYTES % 10.5 % (0.0-11.0); NEUTROPHIL # 6.7 10^3/ul (1.6-7.5); NEUTROPHILS % 71.3 % (39.0-77.0); PLATELET COUNT 244 10^3/UL (140-440); RED BLOOD COUNT 3.57 10^6/ul (4.70-6.10); RED CELL DISTRIBUTION WIDTH 21.1 % (11.5-14.5); UNCORRECTED WBC 9.4 10^3/ul (4.8-10.8); WHITE BLOOD COUNT 9.4 10^3/ul (4.8-10.8)
[2016-09-15 06:09] LABS: CONDITION 1; LH ANALYZER COMMENTS 1
[2016-09-15] MEDS: PROPOFOL 100 ML IV PRN ×2 (06:11→14:00)
[2016-09-15] MEDS: HEPARIN 5,000 UNIT/0.5 ML SYG SC SCH ×3 (06:14→21:04)
[2016-09-15 06:36] LABS: POTASSIUM 3.9 mmol/L (3.5-5.1)
[2016-09-15 06:39] LABS: CREATININE 1.95 mg/dl (0.61-1.24)
[2016-09-15 06:40] LABS: CALCIUM 7.6 mg/dl (8.4-10.2)
[2016-09-15 06:42] LABS: MAGNESIUM 2.1 mg/dl (1.7-2.5); PHOSPHORUS 4.4 mg/dl (2.5-4.9)
--- NOTE | 2016-09-15 07:32 | RADRPT ---
PROCEDURE: XR Chest. CLINICAL INDICATION: Pneumonia. Congestive heart failure. TECHNIQUE: Portable single view of the chest COMPARISON: 09/13 FINDINGS: Tubes and lines remain in good position. Cardiomegaly is again seen. Bilateral lung infiltrates or edema and right pleural effusion appears similar to prior. IMPRESSION: No significant interval change. RPTAT: HLBE Prema Yang Physician Date Time Electronically viewed and signed by Prema Yang, Physician on 09/15/2016 07:31 LE/
[2016-09-15] MEDS: FERROUS SULFATE 60 MG/ML 5ML CUP GTB SCH ×2 (08:21→20:58)
[2016-09-15] MEDS: VITAMIN E 400 UNITS CAP GTB SCH (08:22)
[2016-09-15] MEDS: FAMOTIDINE 20 MG TAB GTB SCH (08:22)
[2016-09-15] MEDS: FLUOXETINE 20 MG CAP GTB SCH (08:22)
[2016-09-15] MEDS: PYRIDOXINE 50 MG TAB GTB SCH (08:22)
[2016-09-15] MEDS: FISH OIL 1,000 MG CAP PO SCH (08:22)
[2016-09-15] MEDS: CALCIUM CARBONATE 500 MG CHEW TAB GTB SCH ×3 (08:22→19:16)
[2016-09-15] MEDS: ASPIRIN 81 MG TAB GTB SCH (08:22)
[2016-09-15] MEDS: FLUCONAZOLE 100 MG TAB GTB SCH (08:22)
[2016-09-15] MEDS: ALLOPURINOL 100 MG TAB GTB SCH (08:22)
[2016-09-15] MEDS: ACETYLCYSTEINE 600 MG CAP GTB SCH ×2 (08:22→20:59)
[2016-09-15] MEDS: ASCORBIC ACID 500 MG TAB GTB SCH (08:24)
[2016-09-15] MEDS: CHOLECALCIFEROL 1,000 UNIT TAB GTB SCH (08:25)
[2016-09-15] MEDS: LACTOBACILLUS CHEW TAB GTB SCH ×3 (08:26→20:58)
[2016-09-15] MEDS: SODIUM HYPOCHLORITE 0.125% 473 ML BTL IRR SCH (08:28)
[2016-09-15] MEDS: METOPROLOL 25 MG TAB GTB SCH ×2 (08:42→20:59)
[2016-09-15] MEDS: PREGABALIN 25 MG CAP GTB SCH ×3 (08:42→20:59)
[2016-09-15 08:49] LABS: AADO2 Arterial 162.8 mmHg (7.0-24.0); Allen Test ACCEPTAB; Arterial Base Excess 2.2 mmol/L (-3.0-3); Arterial COHb 0.7 % (0.0-3.0); Arterial Fraction of Oxyhgb 92.4 % (93.0-99.0); Arterial HCO3 27.6 mmol/L (22.0-26.0); Arterial MetHb 0.2 % (0.0-1.5); Arterial Total Hemglobin 11.3 g/dl (12.0-18.0); MODE VENT - AC
--- NOTE | 2016-09-15 08:57 | PN ---
Date/Time of Note Date/Time of Note DATE: 09/15/16 TIME: 08:55 Assessment/Plan VTE Prophylaxis VTE Prophylaxis Intervention: heparin Lines/Catheters IV Catheter Type (from Nrsg): Luis Central line still needed: Yes Urinary Cath still in place: Yes Reason Cath still needed: terminal illness/intractable pain Assessment/Plan Chief Complaint/Hosp Course 1. Left great toe osteomyelitis. Continue antibiotics as per infectious disease. Status post evaluation by vascular surgery. 2. Acute on chronic respiratory failure, hypoxic and hypercapnic. S/P intubation on 09/06/2016 because of worsening respiratory distress. Continue inhaled bronchodilators. 3. Ventilator associated pneumonia. Sputum culture positive for Acinetobacter baumannii. ID on board. Antibiotics as per ID. 4. Pulmonary hypertension. Continue supplemental oxygen. 5. Acute on chronic kidney disease. The patient was newly started on hemodialysis. Nephrology following. 6. Congestive heart failure exacerbation. Acute on chronic diastolic dysfunction. Continue hemodialysis as per nephrology. 7. Type 2 diabetes mellitus. Hemoglobin A1c 5.8. Continue sliding scale insulin. 8. Essential hypertension. Continue antihypertensives. 9. Atrial fibrillation. Rate controlled. Cardiology following. Therapeutic anticoagulation will be deferred to cardiology. 10. Dyslipidemia. Continue statins. 11. Gout. Continue allopurinol. 12. Major depression. Continue selective serotonin reuptake inhibitors. 13. Morbid obesity with BMI of 42.5 kg/meter squared. 14. Fluid, electrolytes, and nutrition. Continue NGT feedings. 15. Deep vein thrombosis prophylaxis. Subcutaneous heparin. 16. Gastrointestinal prophylaxis. Histamine 2 blockers. PLAN: Wean off ventilator as per pulmonary. Continue ICU monitoring. Case discussed with Dr. Tipton. Critical care time. 35 minutes. Problems: Subjective 24 Hr Interval Summary Free Text/Dictation No changes in status. Exam/Review of Systems Vital Signs Vitals Vital Signs Date Time Temp Pulse Resp B/P Pulse Ox O2 Delivery O2 Flow Rate FiO2 09/15/16 07:00 73 15 111/82 94 Mechanical Ventilator 09/15/16 05:32 40 09/15/16 04:00 98.1 Intake and Output 09/14/16 09/14/16 09/15/16 15:00 23:00 07:00 Intake Total 1092.506 ml 731.311 ml 456.536 ml Output Total 3060 ml 85 ml 120 ml Balance -1967.494 ml 646.311 ml 336.536 ml Exam GENERAL: This is a morbidly obese male sitting in a chair in mild respiratory distress with oxygen via nasal cannula. HEENT: Head normocephalic and atraumatic. Eyes: Anicteric sclerae. Conjunctivae clear. ENT: Nasal septum. Oral mucosa is dry. NECK: Supple. RESPIRATORY: Bilaterally diminished breath sounds. Fine rales. On AC mode ventilation. CARDIAC: Irregularly irregular rhythm. Systolic murmur. ABDOMEN: Soft, nontender, but protuberant. Bowel sounds hypoactive in all 4 quadrants. GENITOURINARY: Deferred. EXTREMITIES: Bilateral lower extremity 2+ edema. Bilateral lower extremity Patrick wrap. NEUROLOGIC: The patient is somnolent now. On propofol gtt. Results Result Diagram: 09/15/16 0545 09/15/16 0545 Results 24 hrs Laboratory Tests Test 09/14/16 13:03 09/14/16 17:16 09/14/16 21:44 09/15/16 01:13 Bedside Glucose 97 105 98 92 Test 09/15/16 04:47 09/15/16 05:45 09/15/16 07:00 Bedside Glucose 83 Anion Gap 15 Basophils # 0.0 Basophils % 0.1 Blood Morphology Comment Blood Urea Nitrogen 58 H Calcium Level 7.6 L Carbon Dioxide Level 28 Chloride Level 97 Creatinine 1.95 H Eosinophils # 0.9 H Eosinophils % 9.3 H Glucose Level 79 Hematocrit 27.8 L Hemoglobin 8.9 L Lymphocytes # 0.8 Lymphocytes % 8.8 L Magnesium Level 2.1 Mean Corpuscular Hemoglobin 24.8 L Mean Corpuscular Hemoglobin Concent 31.9 L Mean Corpuscular Volume 77.8 L Mean Platelet Volume 9.0 Monocytes # 1.0 H Monocytes % 10.5 Neutrophils # 6.7 Neutrophils % 71.3 Nucleated Red Blood Cells # 0.0 Nucleated Red Blood Cells % 0.0 Phosphorus Level 4.4 Platelet Count 244 Potassium Level 3.9 Red Blood Count 3.57 L Red Cell Distribution Width 21.1 H Sodium Level 136 White Blood Count 9.4 Arterial Blood HCO3 27.6 H Arterial Blood Base Excess 2.2 Arterial Blood Oxygen Saturation 93.2 L Khoi Test ACCEPTAB Arterial Blood Gas Puncture Site Right Radial Arterial Blood Carboxyhemoglobin 0.7 Arterial Blood Date Drawn 09/15/2016 8:35:49 AM Arterial Blood Methemoglobin 0.2 Arterial Blood pCO2 (Temp correct) 46.4 H Arterial Blood pH (Temp corrected) 7.392 Arterial Blood pO2 (Temp corrected) 69.0 L Blood Gas A-a O2 Differential 162.8 H Blood Gas Actual Respiration Rate 20 Blood Gas Low PEEP Setting 10.0 Blood Gas Modality VENT - AC Blood Gas Notified Time 09/08/2016 8:49:15 AM Blood Gas Notified Whom DT Blood Gas Respiration Rate 18.0 Blood Gas Specimen Source Blood arterial Blood Gas Temperature 37.0 Blood Gas Tidal Volume 600.0 FiO2 40.0 Oxyhemoglobin Percent 92.4 L Total Hemoglobin 11.3 L Medications Medications Current Medications Morphine Sulfate (morphine) 2 mg Q4H PRN IV SEVERE PAIN LEVEL 7-10 Last administered on 09/03/16at 12:28; Admin Dose 2 MG; Start 08/13/16 at 17:30 Fish Oil (Fish Oil) 1,000 mg DAILY PO Last administered on 09/15/16at 08:22; Admin Dose 1,000 MG; Start 08/14/16 at 09:00 Miscellaneous Information 1 ea NOTE XX ; Start 08/13/16 at 18:00 Glucose (Glutose) 15 gm Q15M PRN PO DECREASED GLUCOSE; Start 08/13/16 at 18:00 Glucose (Glutose) 22.5 gm Q15M PRN PO DECREASED GLUCOSE; Start 08/13/16 at 18: 00 Dextrose (D50w Syringe) 25 ml Q15M PRN IV DECREASED GLUCOSE Last administered on 09/10/16at 09:18; Admin Dose 25 ML; Start 08/13/16 at 18:00 Dextrose (D50w Syringe) 50 ml Q15M PRN IV DECREASED GLUCOSE; Start 08/13/16 at 18:00 Glucagon (Glucagen) 1 mg Q15M PRN IM DECREASED GLUCOSE; Start 08/13/16 at 18: 00 Glucose (Glutose) 15 gm Q15M PRN BUCCAL DECREASED GLUCOSE; Start 08/13/16 at 18:00 Sodium Hypochlorite (Dakin'S (1/4 Strength)) 1 applic DAILY IRR Last administered on 09/15/16at 08:28; Admin Dose 1 APPLIC; Start 08/13/16 at 20:00 IV Flush (NS 10 ml) 10 ml PRN PRN IV IV PTOTOCOL; Start 08/14/16 at 17:00 Ondansetron HCl (Zofran Inj) 4 mg Q4H PRN IV NAUSEA AND/OR VOMITING; Start 08/16/16 at 12:30 Phenol 1 lozenge 1 lozenge Q1H PRN MT DRY MOUTH Last administered on 08/20/16at 21:28; Admin Dose 1 LOZENGE; Start 08/20/16 at 20:30 Norepinephrine/ Dextrose (Levophed/D5W) 500 ml @ 1.87 mls/hr TITRATE IV ; Start 09/09/16 at 08:00 Lorazepam (Ativan) 2 mg Q4H PRN IV anxiety; Start 09/09/16 at 10:30 Heparin Sodium (Porcine) (Heparin (5000 Units/0.5 ml)) 5,000 unit Q8 SC Last administered on 09/15/16at 06:14; Admin Dose 5,000 UNIT; Start 09/09/16 at 22: 00 Insulin Aspart (Novolog Insulin Pen) NOVOLOG *MILD* ALGORI... Q4 SC Last administered on 09/13/16at 23:16; Admin Dose 1 UNIT; Start 09/11/16 at 01:00 Insulin Glargine 10 unit 10 unit HS SC Last administered on 09/13/16at 23:15; Admin Dose 10 UNIT; Start 09/10/16 at 22:00 Colistimethate Sodium/Sodium Chloride (Coly-Mycin/NS) 100 ml @ 50 mls/hr Q24H IVPB Last administered on 09/14/16at 17:15; Admin Dose 50 MLS/HR; Start at 16:00 Acetylcysteine (Nac) 600 mg BID GTB Last administered on 09/15/16at 08:22; Admin Dose 600 MG; Start 09/12/16 at 09:00 Allopurinol (Zyloprim) 100 mg DAILY GTB Last administered on 09/15/16 08:22; Admin Dose 100 MG; Start 09/12/16 at 09:00 Ascorbic Acid (Vitamin C) 500 mg DAILY GTB Last administered on 09/15/16 08: 24; Admin Dose 500 MG; Start 09/12/16 at 09:00 Atorvastatin Calcium (Lipitor) 10 mg QHS GTB Last administered on 09/14/16at 21 :34; Admin Dose 10 MG; Start 09/12/16 at 21:00 Cholecalciferol (Vitamin D) 1,000 unit DAILY GTB Last administered on 08:25; Admin Dose 1,000 UNIT; Start 09/12/16 at 09:00 Diphenhydramine HCl (Benadryl) 25 mg Q6H PRN GTB ITCHING; Start 09/12/16 at 08 :30 Famotidine (Pepcid) 20 mg DAILY GTB Last administered on 09/15/16 08:22; Admin Dose 20 MG; Start 09/12/16 at 09:00 Ferrous Sulfate (Feosol Liquid Cup) 300 mg BID GTB Last administered on 08:21; Admin Dose 300 MG; Start 09/12/16 at 09:00 Fluconazole (Diflucan) 100 mg DAILY GTB Last administered on 09/15/16 08:22; Admin Dose 100 MG; Start 09/12/16 at 09:00 Fluoxetine HCl (Prozac) 20 mg DAILY GTB Last administered on 09/15/16 08:22; Admin Dose 20 MG; Start 09/12/16 at 10:00 Lactobacillus Acidoph/Bulgaricus (Floranex) 1 tab TID GTB Last administered on 09/15/16 08:26; Admin Dose 1 TAB; Start 09/12/16 at 09:00 Metoprolol Tartrate (Lopressor) 12.5 mg BID GTB Last administered on 21:34; Admin Dose 12.5 MG; Start 09/12/16 at 09:00 Pregabalin (Lyrica) 50 mg TID GTB Last administered on 09/15/16 08:42; Admin Dose 50 MG; Start 09/12/16 at 09:00 Pyridoxine HCl (Vitamin B6) 100 mg DAILY GTB Last administered on 09/15/16 08 :22; Admin Dose 100 MG; Start 09/12/16 at 09:00 Vitamin E (Vitamin E) 400 units DAILY GTB Last administered on 09/15/16 08:22 ; Admin Dose 400 UNITS; Start 09/12/16 at 10:00 Aspirin (Aspirin) 81 mg DAILY GTB Last administered on 09/15/16 08:22; Admin Dose 81 MG; Start 09/12/16 at 09:00 Acetaminophen (Tylenol Liquid) 650 mg Q6H PRN GTB PAIN 1-3 OR TEMP; Start at 08:30 Acetaminophen/ Hydrocodone Bitart ([place] (5/325)) 1 tab Q6H PRN GTB MODERATE PAIN LEVEL 4-6; Start 09/12/16 at 11:30 Acetaminophen/ Hydrocodone Bitart ([place] (5/325)) 2 tab Q6H PRN GTB MODERATE PAIN LEVEL 4-6; Start 09/12/16 at 13:00 Lorazepam (Ativan) 1 mg Q6 PRN GTB ANXIETY; Start 09/12/16 at 08:30 Lorazepam (Ativan) 1 mg HS PRN GTB ANXIETY, HELP WITH SLEEP; Start 09/12/16 at 08:30 Simethicone (Mylicon) 80 mg Q6H PRN GTB INTESTINAL SPASMS/CRAMPING; Start at 11:30 Zolpidem Tartrate (Ambien) 10 mg HS PRN GTB INSOMNIA; Start 09/12/16 at 08:30 Docusate Sodium 100 mg 100 mg Q12 PRN GTB CONSTIPATION; Start 09/12/16 at 08: 30 Propofol 100 ml @ 3.915 mls/ hr TITRATE PRN IV maintain rass -2 to -3 Last administered on 09/15/16at 06:11; Admin Dose 19.505 MLS/HR; Start 09/13/16 at 19:30 Vancomycin HCl/ Sodium Chloride (Vancocin/NS) 500 ml @ 125 mls/hr Q72H IVPB ; Start 09/15/16 at 12:00 GIO BISHOP NP Sep 15, 2016 08:57
--- NOTE | 2016-09-15 10:18 | CONS ---
Date/Time of Note Date/Time of Note DATE: 09/15/16 TIME: 10:16 Consult Date/Type/Reason Admit Date/Time Aug 13, 2016 at 16:30 Initial Consult Date 08/13/16 Type of Consultation: pulmonary Ordering Provider: KELLEN MEDINA MD Subjective Patient more alert opens eyes and nods to simple questions Remains hemodynamically stable Pending further hemodialysis today Objective Vital Signs Date Time Temp Pulse Resp B/P Pulse Ox O2 Delivery O2 Flow Rate FiO2 09/15/16 07:00 73 15 111/82 94 Mechanical Ventilator 09/15/16 05:32 40 09/15/16 04:00 98.1 Intake and Output 09/14/16 09/14/16 09/15/16 15:00 23:00 07:00 Intake Total 1092.506 ml 731.311 ml 456.536 ml Output Total 3060 ml 85 ml 120 ml Balance -1967.494 ml 646.311 ml 336.536 ml PHYSICAL EXAMINATION GENERAL: Elderly gentleman, intubated on mechanical ventilation, opens eyes comfortable generalized weakness VITAL SIGNS: see below. HEENT: Pupils equal, round, and reactive to light. CARDIAC: S1, S2, tachycardia. CHEST: Diminished air entry bilaterally. ABDOMEN: Mildly distended. No bowel sounds. EXTREMITIES: No cyanosis, clubbing, edema +2 NEUROLOGIC: No focal deficits. Results/Medications Result Diagram: 09/15/16 0545 09/15/16 0545 Results 24 hrs Laboratory Tests Test 09/14/16 13:03 09/14/16 17:16 09/14/16 21:44 09/15/16 01:13 Bedside Glucose 97 105 98 92 Test 09/15/16 04:47 09/15/16 05:45 09/15/16 07:00 Bedside Glucose 83 Anion Gap 15 Basophils # 0.0 Basophils % 0.1 Blood Morphology Comment Blood Urea Nitrogen 58 H Calcium Level 7.6 L Carbon Dioxide Level 28 Chloride Level 97 Creatinine 1.95 H Eosinophils # 0.9 H Eosinophils % 9.3 H Glucose Level 79 Hematocrit 27.8 L Hemoglobin 8.9 L Lymphocytes # 0.8 Lymphocytes % 8.8 L Magnesium Level 2.1 Mean Corpuscular Hemoglobin 24.8 L Mean Corpuscular Hemoglobin Concent 31.9 L Mean Corpuscular Volume 77.8 L Mean Platelet Volume 9.0 Monocytes # 1.0 H Monocytes % 10.5 Neutrophils # 6.7 Neutrophils % 71.3 Nucleated Red Blood Cells # 0.0 Nucleated Red Blood Cells % 0.0 Phosphorus Level 4.4 Platelet Count 244 Potassium Level 3.9 Red Blood Count 3.57 L Red Cell Distribution Width 21.1 H Sodium Level 136 White Blood Count 9.4 Arterial Blood HCO3 27.6 H Arterial Blood Base Excess 2.2 Arterial Blood Oxygen Saturation 93.2 L Khoi Test ACCEPTAB Arterial Blood Gas Puncture Site Right Radial Arterial Blood Carboxyhemoglobin 0.7 Arterial Blood Date Drawn 09/15/2016 8:35:49 AM Arterial Blood Methemoglobin 0.2 Arterial Blood pCO2 (Temp correct) 46.4 H Arterial Blood pH (Temp corrected) 7.392 Arterial Blood pO2 (Temp corrected) 69.0 L Blood Gas A-a O2 Differential 162.8 H Blood Gas Actual Respiration Rate 20 Blood Gas Low PEEP Setting 10.0 Blood Gas Modality VENT - AC Blood Gas Notified Time 09/08/2016 8:49:15 AM Blood Gas Notified Whom DT Blood Gas Respiration Rate 18.0 Blood Gas Specimen Source Blood arterial Blood Gas Temperature 37.0 Blood Gas Tidal Volume 600.0 FiO2 40.0 Oxyhemoglobin Percent 92.4 L Total Hemoglobin 11.3 L Medications Current Medications Morphine Sulfate (morphine) 2 mg Q4H PRN IV SEVERE PAIN LEVEL 7-10 Last administered on 09/03/16at 12:28; Admin Dose 2 MG; Start 08/13/16 at 17:30 Fish Oil (Fish Oil) 1,000 mg DAILY PO Last administered on 09/15/16at 08:22; Admin Dose 1,000 MG; Start 08/14/16 at 09:00 Miscellaneous Information 1 ea NOTE XX ; Start 08/13/16 at 18:00 Glucose (Glutose) 15 gm Q15M PRN PO DECREASED GLUCOSE; Start 08/13/16 at 18:00 Glucose (Glutose) 22.5 gm Q15M PRN PO DECREASED GLUCOSE; Start 08/13/16 at 18: 00 Dextrose (D50w Syringe) 25 ml Q15M PRN IV DECREASED GLUCOSE Last administered on 09/10/16at 09:18; Admin Dose 25 ML; Start 08/13/16 at 18:00 Dextrose (D50w Syringe) 50 ml Q15M PRN IV DECREASED GLUCOSE; Start 08/13/16 at 18:00 Glucagon (Glucagen) 1 mg Q15M PRN IM DECREASED GLUCOSE; Start 08/13/16 at 18: 00 Glucose (Glutose) 15 gm Q15M PRN BUCCAL DECREASED GLUCOSE; Start 08/13/16 at 18:00 Sodium Hypochlorite (Dakin'S (1/4 Strength)) 1 applic DAILY IRR Last administered on 09/15/16at 08:28; Admin Dose 1 APPLIC; Start 08/13/16 at 20:00 IV Flush (NS 10 ml) 10 ml PRN PRN IV IV PTOTOCOL; Start 08/14/16 at 17:00 Ondansetron HCl (Zofran Inj) 4 mg Q4H PRN IV NAUSEA AND/OR VOMITING; Start 08/16/16 at 12:30 Phenol 1 lozenge 1 lozenge Q1H PRN MT DRY MOUTH Last administered on 08/20/16at 21:28; Admin Dose 1 LOZENGE; Start 08/20/16 at 20:30 Norepinephrine/ Dextrose (Levophed/D5W) 500 ml @ 1.87 mls/hr TITRATE IV ; Start 09/09/16 at 08:00 Lorazepam (Ativan) 2 mg Q4H PRN IV anxiety; Start 09/09/16 at 10:30 Heparin Sodium (Porcine) (Heparin (5000 Units/0.5 ml)) 5,000 unit Q8 SC Last administered on 09/15/16at 06:14; Admin Dose 5,000 UNIT; Start 09/09/16 at 22: 00 Insulin Aspart (Novolog Insulin Pen) NOVOLOG *MILD* ALGORI... Q4 SC Last administered on 09/13/16at 23:16; Admin Dose 1 UNIT; Start 09/11/16 at 01:00 Insulin Glargine 10 unit 10 unit HS SC Last administered on 09/13/16at 23:15; Admin Dose 10 UNIT; Start 09/10/16 at 22:00 Colistimethate Sodium/Sodium Chloride (Coly-Mycin/NS) 100 ml @ 50 mls/hr Q24H IVPB Last administered on 09/14/16at 17:15; Admin Dose 50 MLS/HR; Start at 16:00 Acetylcysteine (Nac) 600 mg BID GTB Last administered on 09/15/16 08:22; Admin Dose 600 MG; Start 09/12/16 at 09:00 Allopurinol (Zyloprim) 100 mg DAILY GTB Last administered on 09/15/16 08:22; Admin Dose 100 MG; Start 09/12/16 at 09:00 Ascorbic Acid (Vitamin C) 500 mg DAILY GTB Last administered on 09/15/16 08: 24; Admin Dose 500 MG; Start 09/12/16 at 09:00 Atorvastatin Calcium (Lipitor) 10 mg QHS GTB Last administered on 09/14/16 21 :34; Admin Dose 10 MG; Start 09/12/16 at 21:00 Cholecalciferol (Vitamin D) 1,000 unit DAILY GTB Last administered on 08:25; Admin Dose 1,000 UNIT; Start 09/12/16 at 09:00 Diphenhydramine HCl (Benadryl) 25 mg Q6H PRN GTB ITCHING; Start 09/12/16 at 08 :30 Famotidine (Pepcid) 20 mg DAILY GTB Last administered on 09/15/16 08:22; Admin Dose 20 MG; Start 09/12/16 at 09:00 Ferrous Sulfate (Feosol Liquid Cup) 300 mg BID GTB Last administered on 08:21; Admin Dose 300 MG; Start 09/12/16 at 09:00 Fluconazole (Diflucan) 100 mg DAILY GTB Last administered on 09/15/16 08:22; Admin Dose 100 MG; Start 09/12/16 at 09:00 Fluoxetine HCl (Prozac) 20 mg DAILY GTB Last administered on 09/15/16 08:22; Admin Dose 20 MG; Start 09/12/16 at 10:00 Lactobacillus Acidoph/Bulgaricus (Floranex) 1 tab TID GTB Last administered on 09/15/16 08:26; Admin Dose 1 TAB; Start 09/12/16 at 09:00 Metoprolol Tartrate (Lopressor) 12.5 mg BID GTB Last administered on 21:34; Admin Dose 12.5 MG; Start 09/12/16 at 09:00 Pregabalin (Lyrica) 50 mg TID GTB Last administered on 12/31/16at 08:42; Admin Dose 50 MG; Start 09/12/16 at 09:00 Pyridoxine HCl (Vitamin B6) 100 mg DAILY GTB Last administered on 09/15/16at 08 :22; Admin Dose 100 MG; Start 09/12/16 at 09:00 Vitamin E (Vitamin E) 400 units DAILY GTB Last administered on 09/15/16at 08:22 ; Admin Dose 400 UNITS; Start 09/12/16 at 10:00 Aspirin (Aspirin) 81 mg DAILY GTB Last administered on 09/15/16at 08:22; Admin Dose 81 MG; Start 09/12/16 at 09:00 Acetaminophen (Tylenol Liquid) 650 mg Q6H PRN GTB PAIN 1-3 OR TEMP; Start at 08:30 Acetaminophen/ Hydrocodone Bitart ([place] (5/325)) 1 tab Q6H PRN GTB MODERATE PAIN LEVEL 4-6; Start 09/12/16 at 11:30 Acetaminophen/ Hydrocodone Bitart ([place] (5/325)) 2 tab Q6H PRN GTB MODERATE PAIN LEVEL 4-6; Start 09/12/16 at 13:00 Lorazepam (Ativan) 1 mg Q6 PRN GTB ANXIETY; Start 09/12/16 at 08:30 Lorazepam (Ativan) 1 mg HS PRN GTB ANXIETY, HELP WITH SLEEP; Start 09/12/16 at 08:30 Simethicone (Mylicon) 80 mg Q6H PRN GTB INTESTINAL SPASMS/CRAMPING; Start at 11:30 Zolpidem Tartrate (Ambien) 10 mg HS PRN GTB INSOMNIA; Start 09/12/16 at 08:30 Docusate Sodium 100 mg 100 mg Q12 PRN GTB CONSTIPATION; Start 09/12/16 at 08: 30 Propofol 100 ml @ 3.915 mls/ hr TITRATE PRN IV maintain rass -2 to -3 Last administered on 09/15/16at 06:11; Admin Dose 19.505 MLS/HR; Start 09/13/16 at 19:30 Vancomycin HCl/ Sodium Chloride (Vancocin/NS) 500 ml @ 125 mls/hr Q72H IVPB ; Start 09/15/16 at 12:00 Assessment/Plan Chief Complaint/Hosp Course Assessment and plan 1. . Acute on chronic respiratory failure, hypoxic and hypercapnic. S/P intubation on 09/06/2016 because of worsening respiratory distress. Continue mechanical ventilation not for weaning today. Significant pulmonary edema with underlying infiltrates. We will attempt CPAP trial tomorrow 2. Left great toe osteomyelitis. Continue antibiotics as per infectious disease. 3..Pulmonary hypertension. Continue supplemental oxygen. 4. End-stage renal failure now on hemodialysis. Evidence of primary edema will require continued volume removal 5. Dysphagia continue tube feeding 6. Atrial fibrillation currently rate controlled Disposition continue current level of care Problems: EDNA BUSTILLO MD, [facility] Sep 15, 2016 10:18
[2016-09-15] MEDS: VANCOMYCIN 2 GM in SOD CHLORIDE 0.9% 500 ML IVPB SCH ×2 (12:00→15:00)
--- NOTE | 2016-09-15 13:41 | CONS ---
Date/Time of Note Date/Time of Note DATE: 09/15/16 TIME: 13:29 Assessment/Plan Assessment/Plan Problems: (1) LORNA (acute kidney injury) Comment: seems stable (2) Diabetic foot infection Status: Acute Comment: on rx per id & Podiatry (3) Pulmonary hypertension Status: Chronic Comment: per Pulmonary (4) Morbid obesity due to excess calories Status: Chronic (5) Anemia Status: Chronic Comment: May have to start epo (6) Hypoxia Status: Chronic (7) Leg edema, right Status: Chronic Comment: improving (8) Fluid overload Status: Chronic Comment: Per discussion with Dr Peres, will continue HD with UF Consultation Date/Type/Reason Admit Date/Time Aug 13, 2016 at 16:30 Initial Consult Date 08/13/16 Type of Consultation: renal Referring Provider: KELLEN MEDINA MD 24 HR Interval Summary Subjective hx not possible: pt critical status Constitutional: no complaints Exam/Review of Systems Vital Signs Vitals Vital Signs Date Time Temp Pulse Resp B/P Pulse Ox O2 Delivery O2 Flow Rate FiO2 09/15/16 13:15 81 09/15/16 13:00 20 09/15/16 12:50 96 40 09/15/16 07:00 111/82 Mechanical Ventilator 09/15/16 04:00 98.1 Intake and Output 09/14/16 09/14/16 09/15/16 15:00 23:00 07:00 Intake Total 1092.506 ml 731.311 ml 456.536 ml Output Total 3060 ml 85 ml 120 ml Balance -1967.494 ml 646.311 ml 336.536 ml Exam Constitutional: non-verbal Head: normocephalic Eyes: PERRL, nl conjunctiva Respiratory: crackles/rales, diminished breath sounds Cardiovascular: nl pulses, regular rate and rhythm Musculoskeletal: swelling Extremities: normal pulses 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: TRANSIT MECHANIC 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 Skin: other (changes of ch dermatitis) Additional Comments creat not much elevated Results Result Diagram: 09/15/16 0545 09/15/16 0545 Results 24 hrs Laboratory Tests Test 09/14/16 17:16 09/14/16 21:44 09/15/16 01:13 09/15/16 04:47 Bedside Glucose 105 98 92 83 Test 09/15/16 05:45 09/15/16 07:00 Anion Gap 15 Basophils # 0.0 Basophils % 0.1 Blood Morphology Comment Blood Urea Nitrogen 58 H Calcium Level 7.6 L Carbon Dioxide Level 28 Chloride Level 97 Creatinine 1.95 H Eosinophils # 0.9 H Eosinophils % 9.3 H Glucose Level 79 Hematocrit 27.8 L Hemoglobin 8.9 L Lymphocytes # 0.8 Lymphocytes % 8.8 L Magnesium Level 2.1 Mean Corpuscular Hemoglobin 24.8 L Mean Corpuscular Hemoglobin Concent 31.9 L Mean Corpuscular Volume 77.8 L Mean Platelet Volume 9.0 Monocytes # 1.0 H Monocytes % 10.5 Neutrophils # 6.7 Neutrophils % 71.3 Nucleated Red Blood Cells # 0.0 Nucleated Red Blood Cells % 0.0 Phosphorus Level 4.4 Platelet Count 244 Potassium Level 3.9 Red Blood Count 3.57 L Red Cell Distribution Width 21.1 H Sodium Level 136 White Blood Count 9.4 Arterial Blood HCO3 27.6 H Arterial Blood Base Excess 2.2 Arterial Blood Oxygen Saturation 93.2 L Khoi Test ACCEPTAB Arterial Blood Gas Puncture Site Right Radial Arterial Blood Carboxyhemoglobin 0.7 Arterial Blood Date Drawn 09/15/2016 8:35:49 AM Arterial Blood Methemoglobin 0.2 Arterial Blood pCO2 (Temp correct) 46.4 H Arterial Blood pH (Temp corrected) 7.392 Arterial Blood pO2 (Temp corrected) 69.0 L Blood Gas A-a O2 Differential 162.8 H Blood Gas Actual Respiration Rate 20 Blood Gas Low PEEP Setting 10.0 Blood Gas Modality VENT - AC Blood Gas Notified Time 09/08/2016 8:49:15 AM Blood Gas Notified Whom DT Blood Gas Respiration Rate 18.0 Blood Gas Specimen Source Blood arterial Blood Gas Temperature 37.0 Blood Gas Tidal Volume 600.0 FiO2 40.0 Oxyhemoglobin Percent 92.4 L Total Hemoglobin 11.3 L Medications Medications Current Medications Morphine Sulfate (morphine) 2 mg Q4H PRN IV SEVERE PAIN LEVEL 7-10 Last administered on 09/03/16at 12:28; Admin Dose 2 MG; Start 08/13/16 at 17:30 Fish Oil (Fish Oil) 1,000 mg DAILY PO Last administered on 09/15/16at 08:22; Admin Dose 1,000 MG; Start 08/14/16 at 09:00 Miscellaneous Information 1 ea NOTE XX ; Start 08/13/16 at 18:00 Glucose (Glutose) 15 gm Q15M PRN PO DECREASED GLUCOSE; Start 08/13/16 at 18:00 Glucose (Glutose) 22.5 gm Q15M PRN PO DECREASED GLUCOSE; Start 08/13/16 at 18: 00 Dextrose (D50w Syringe) 25 ml Q15M PRN IV DECREASED GLUCOSE Last administered on 09/10/16at 09:18; Admin Dose 25 ML; Start 08/13/16 at 18:00 Dextrose (D50w Syringe) 50 ml Q15M PRN IV DECREASED GLUCOSE; Start 08/13/16 at 18:00 Glucagon (Glucagen) 1 mg Q15M PRN IM DECREASED GLUCOSE; Start 08/13/16 at 18: 00 Glucose (Glutose) 15 gm Q15M PRN BUCCAL DECREASED GLUCOSE; Start 08/13/16 at 18:00 Sodium Hypochlorite (Dakin'S (1/4 Strength)) 1 applic DAILY IRR Last administered on 09/15/16at 08:28; Admin Dose 1 APPLIC; Start 08/13/16 at 20:00 IV Flush (NS 10 ml) 10 ml PRN PRN IV IV PTOTOCOL; Start 08/14/16 at 17:00 Ondansetron HCl (Zofran Inj) 4 mg Q4H PRN IV NAUSEA AND/OR VOMITING; Start 08/16/16 at 12:30 Phenol 1 lozenge 1 lozenge Q1H PRN MT DRY MOUTH Last administered on 08/20/16at 21:28; Admin Dose 1 LOZENGE; Start 08/20/16 at 20:30 Norepinephrine/ Dextrose (Levophed/D5W) 500 ml @ 1.87 mls/hr TITRATE IV ; Start 09/09/16 at 08:00 Lorazepam (Ativan) 2 mg Q4H PRN IV anxiety; Start 09/09/16 at 10:30 Heparin Sodium (Porcine) (Heparin (5000 Units/0.5 ml)) 5,000 unit Q8 SC Last administered on 09/15/16at 06:14; Admin Dose 5,000 UNIT; Start 09/09/16 at 22: 00 Insulin Aspart (Novolog Insulin Pen) NOVOLOG *MILD* ALGORI... Q4 SC Last administered on 09/13/16at 23:16; Admin Dose 1 UNIT; Start 09/11/16 at 01:00 Insulin Glargine 10 unit 10 unit HS SC Last administered on 09/13/16 23:15; Admin Dose 10 UNIT; Start 09/10/16 at 22:00 Colistimethate Sodium/Sodium Chloride (Coly-Mycin/NS) 100 ml @ 50 mls/hr Q24H IVPB Last administered on 09/14/16 17:15; Admin Dose 50 MLS/HR; Start at 16:00 Acetylcysteine (Nac) 600 mg BID GTB Last administered on 09/15/16 08:22; Admin Dose 600 MG; Start 09/12/16 at 09:00 Allopurinol (Zyloprim) 100 mg DAILY GTB Last administered on 09/15/16 08:22; Admin Dose 100 MG; Start 09/12/16 at 09:00 Ascorbic Acid (Vitamin C) 500 mg DAILY GTB Last administered on 09/15/16 08: 24; Admin Dose 500 MG; Start 09/12/16 at 09:00 Atorvastatin Calcium (Lipitor) 10 mg QHS GTB Last administered on 09/14/16 21 :34; Admin Dose 10 MG; Start 09/12/16 at 21:00 Cholecalciferol (Vitamin D) 1,000 unit DAILY GTB Last administered on 08:25; Admin Dose 1,000 UNIT; Start 09/12/16 at 09:00 Diphenhydramine HCl (Benadryl) 25 mg Q6H PRN GTB ITCHING; Start 09/12/16 at 08 :30 Famotidine (Pepcid) 20 mg DAILY GTB Last administered on 09/15/16 08:22; Admin Dose 20 MG; Start 09/12/16 at 09:00 Ferrous Sulfate (Feosol Liquid Cup) 300 mg BID GTB Last administered on 08:21; Admin Dose 300 MG; Start 09/12/16 at 09:00 Fluconazole (Diflucan) 100 mg DAILY GTB Last administered on 09/15/16 08:22; Admin Dose 100 MG; Start 09/12/16 at 09:00 Fluoxetine HCl (Prozac) 20 mg DAILY GTB Last administered on 09/15/16 08:22; Admin Dose 20 MG; Start 09/12/16 at 10:00 Lactobacillus Acidoph/Bulgaricus (Floranex) 1 tab TID GTB Last administered on 09/15/16at 08:26; Admin Dose 1 TAB; Start 09/12/16 at 09:00 Metoprolol Tartrate (Lopressor) 12.5 mg BID GTB Last administered on at 21:34; Admin Dose 12.5 MG; Start 09/12/16 at 09:00 Pregabalin (Lyrica) 50 mg TID GTB Last administered on 09/15/16at 08:42; Admin Dose 50 MG; Start 09/12/16 at 09:00 Pyridoxine HCl (Vitamin B6) 100 mg DAILY GTB Last administered on 09/15/16at 08 :22; Admin Dose 100 MG; Start 09/12/16 at 09:00 Vitamin E (Vitamin E) 400 units DAILY GTB Last administered on 09/15/16at 08:22 ; Admin Dose 400 UNITS; Start 09/12/16 at 10:00 Aspirin (Aspirin) 81 mg DAILY GTB Last administered on 09/15/16at 08:22; Admin Dose 81 MG; Start 09/12/16 at 09:00 Acetaminophen (Tylenol Liquid) 650 mg Q6H PRN GTB PAIN 1-3 OR TEMP; Start at 08:30 Acetaminophen/ Hydrocodone Bitart ([place] (5/325)) 1 tab Q6H PRN GTB MODERATE PAIN LEVEL 4-6; Start 09/12/16 at 11:30 Acetaminophen/ Hydrocodone Bitart ([place] (5/325)) 2 tab Q6H PRN GTB MODERATE PAIN LEVEL 4-6; Start 09/12/16 at 13:00 Lorazepam (Ativan) 1 mg Q6 PRN GTB ANXIETY; Start 09/12/16 at 08:30 Lorazepam (Ativan) 1 mg HS PRN GTB ANXIETY, HELP WITH SLEEP; Start 09/12/16 at 08:30 Simethicone (Mylicon) 80 mg Q6H PRN GTB INTESTINAL SPASMS/CRAMPING; Start at 11:30 Zolpidem Tartrate (Ambien) 10 mg HS PRN GTB INSOMNIA; Start 09/12/16 at 08:30 Docusate Sodium 100 mg 100 mg Q12 PRN GTB CONSTIPATION; Start 09/12/16 at 08: 30 Propofol 100 ml @ 3.915 mls/ hr TITRATE PRN IV maintain rass -2 to -3 Last administered on 09/15/16at 06:11; Admin Dose 19.505 MLS/HR; Start 09/13/16 at 19:30 Vancomycin HCl/ Sodium Chloride (Vancocin/NS) 500 ml @ 125 mls/hr Q72H IVPB ; Start 09/15/16 at 12:00 ALONSO MARTINEZ MD Sep 15, 2016 13:40
--- NOTE | 2016-09-15 14:49 | CONS ---
Date/Time of Note Date/Time of Note DATE: 09/15/16 TIME: 14:42 Assessment/Plan Assessment/Plan Chief Complaint/Hosp Course ID PROGRESS NOTE 24H INTERVAL SUMMARY * Failed weaning attempt today, WBC normalized, no fever reported * ABX: Colistin IV + Vanco IV PHYSICAL EXAMINATION: GENERAL: 60 yo Morbid Obese M -> non-communicative on the Vent HEENT: Unremarkable NECK: Supple, trachea midline. CHEST: Rise symmetrical, course BS ABDOMEN: Soft, EXTREMITIES: Bilateral Patrick wraps. ID ASSESSMENT: 60 yo super morbid obese M [BMI >42] admit with: 1. Bilateral lower extremities acute on chronic cellulitis with chronic venous stasis and left toe osteomyelitis. 2. PAD=> s/p angiogram 3. Systemic inflammatory response syndrome 2 to above. * Resolving Septicemia=>(+)KENAN 4. Hypoxic respiratory failure 5. HCAP =>Acinetobacter baumannii, on colistin day #5 6. Atrial fibrillation, chronic. 7. Acute renal failure/CKD => HD dependent (-)MRSA Nares CURRENT ABX: Vanco IV + Colistin IV ID PLAN: Continue current ABX + ADD COLISTIN INH to Colistin IV for ACBA PNA = failed weaning Weaning per pulmonary . . Problems: Consultation Date/Type/Reason Admit Date/Time Aug 13, 2016 at 16:30 Initial Consult Date 08/13/16 Type of Consultation: ID Referring Provider: KELLEN MEDINA MD Exam/Review of Systems Vital Signs Vitals Vital Signs Date Time Temp Pulse Resp B/P Pulse Ox O2 Delivery O2 Flow Rate FiO2 09/15/16 14:30 83 09/15/16 13:00 20 09/15/16 12:50 96 40 09/15/16 07:00 111/82 Mechanical Ventilator 09/15/16 04:00 98.1 Intake and Output 09/14/16 09/14/16 09/15/16 15:00 23:00 07:00 Intake Total 1092.506 ml 731.311 ml 456.536 ml Output Total 3060 ml 85 ml 120 ml Balance -1967.494 ml 646.311 ml 336.536 ml Results Result Diagram: 09/15/16 0545 09/15/16 0545 Results 24 hrs Laboratory Tests Test 09/14/16 17:16 09/14/16 21:44 09/15/16 01:13 09/15/16 04:47 Bedside Glucose 105 98 92 83 Test 09/15/16 05:45 09/15/16 07:00 Anion Gap 15 Basophils # 0.0 Basophils % 0.1 Blood Morphology Comment Blood Urea Nitrogen 58 H Calcium Level 7.6 L Carbon Dioxide Level 28 Chloride Level 97 Creatinine 1.95 H Eosinophils # 0.9 H Eosinophils % 9.3 H Glucose Level 79 Hematocrit 27.8 L Hemoglobin 8.9 L Lymphocytes # 0.8 Lymphocytes % 8.8 L Magnesium Level 2.1 Mean Corpuscular Hemoglobin 24.8 L Mean Corpuscular Hemoglobin Concent 31.9 L Mean Corpuscular Volume 77.8 L Mean Platelet Volume 9.0 Monocytes # 1.0 H Monocytes % 10.5 Neutrophils # 6.7 Neutrophils % 71.3 Nucleated Red Blood Cells # 0.0 Nucleated Red Blood Cells % 0.0 Phosphorus Level 4.4 Platelet Count 244 Potassium Level 3.9 Red Blood Count 3.57 L Red Cell Distribution Width 21.1 H Sodium Level 136 White Blood Count 9.4 Arterial Blood HCO3 27.6 H Arterial Blood Base Excess 2.2 Arterial Blood Oxygen Saturation 93.2 L Khoi Test ACCEPTAB Arterial Blood Gas Puncture Site Right Radial Arterial Blood Carboxyhemoglobin 0.7 Arterial Blood Date Drawn 09/15/2016 8:35:49 AM Arterial Blood Methemoglobin 0.2 Arterial Blood pCO2 (Temp correct) 46.4 H Arterial Blood pH (Temp corrected) 7.392 Arterial Blood pO2 (Temp corrected) 69.0 L Blood Gas A-a O2 Differential 162.8 H Blood Gas Actual Respiration Rate 20 Blood Gas Low PEEP Setting 10.0 Blood Gas Modality VENT - AC Blood Gas Notified Time 09/08/2016 8:49:15 AM Blood Gas Notified Whom DT Blood Gas Respiration Rate 18.0 Blood Gas Specimen Source Blood arterial Blood Gas Temperature 37.0 Blood Gas Tidal Volume 600.0 FiO2 40.0 Oxyhemoglobin Percent 92.4 L Total Hemoglobin 11.3 L Medications Medications Current Medications Morphine Sulfate (morphine) 2 mg Q4H PRN IV SEVERE PAIN LEVEL 7-10 Last administered on 09/03/16at 12:28; Admin Dose 2 MG; Start 08/13/16 at 17:30 Fish Oil (Fish Oil) 1,000 mg DAILY PO Last administered on 09/15/16at 08:22; Admin Dose 1,000 MG; Start 08/14/16 at 09:00 Miscellaneous Information 1 ea NOTE XX ; Start 08/13/16 at 18:00 Glucose (Glutose) 15 gm Q15M PRN PO DECREASED GLUCOSE; Start 08/13/16 at 18:00 Glucose (Glutose) 22.5 gm Q15M PRN PO DECREASED GLUCOSE; Start 08/13/16 at 18: 00 Dextrose (D50w Syringe) 25 ml Q15M PRN IV DECREASED GLUCOSE Last administered on 09/10/16at 09:18; Admin Dose 25 ML; Start 08/13/16 at 18:00 Dextrose (D50w Syringe) 50 ml Q15M PRN IV DECREASED GLUCOSE; Start 08/13/16 at 18:00 Glucagon (Glucagen) 1 mg Q15M PRN IM DECREASED GLUCOSE; Start 08/13/16 at 18: 00 Glucose (Glutose) 15 gm Q15M PRN BUCCAL DECREASED GLUCOSE; Start 08/13/16 at 18:00 Sodium Hypochlorite (Dakin'S (1/4 Strength)) 1 applic DAILY IRR Last administered on 09/15/16at 08:28; Admin Dose 1 APPLIC; Start 08/13/16 at 20:00 IV Flush (NS 10 ml) 10 ml PRN PRN IV IV PTOTOCOL; Start 08/14/16 at 17:00 Ondansetron HCl (Zofran Inj) 4 mg Q4H PRN IV NAUSEA AND/OR VOMITING; Start 08/16/16 at 12:30 Phenol 1 lozenge 1 lozenge Q1H PRN MT DRY MOUTH Last administered on 08/20/16at 21:28; Admin Dose 1 LOZENGE; Start 08/20/16 at 20:30 Norepinephrine/ Dextrose (Levophed/D5W) 500 ml @ 1.87 mls/hr TITRATE IV ; Start 09/09/16 at 08:00 Lorazepam (Ativan) 2 mg Q4H PRN IV anxiety; Start 09/09/16 at 10:30 Heparin Sodium (Porcine) (Heparin (5000 Units/0.5 ml)) 5,000 unit Q8 SC Last administered on 09/15/16at 06:14; Admin Dose 5,000 UNIT; Start 09/09/16 at 22: 00 Insulin Aspart (Novolog Insulin Pen) NOVOLOG *MILD* ALGORI... Q4 SC Last administered on 09/13/16 23:16; Admin Dose 1 UNIT; Start 09/11/16 at 01:00 Insulin Glargine 10 unit 10 unit HS SC Last administered on 09/13/16 23:15; Admin Dose 10 UNIT; Start 09/10/16 at 22:00 Colistimethate Sodium/Sodium Chloride (Coly-Mycin/NS) 100 ml @ 50 mls/hr Q24H IVPB Last administered on 09/14/16 17:15; Admin Dose 50 MLS/HR; Start at 16:00 Acetylcysteine (Nac) 600 mg BID GTB Last administered on 09/15/16 08:22; Admin Dose 600 MG; Start 09/12/16 at 09:00 Allopurinol (Zyloprim) 100 mg DAILY GTB Last administered on 09/15/16 08:22; Admin Dose 100 MG; Start 09/12/16 at 09:00 Ascorbic Acid (Vitamin C) 500 mg DAILY GTB Last administered on 09/15/16 08: 24; Admin Dose 500 MG; Start 09/12/16 at 09:00 Atorvastatin Calcium (Lipitor) 10 mg QHS GTB Last administered on 09/14/16 21 :34; Admin Dose 10 MG; Start 09/12/16 at 21:00 Cholecalciferol (Vitamin D) 1,000 unit DAILY GTB Last administered on 08:25; Admin Dose 1,000 UNIT; Start 09/12/16 at 09:00 Diphenhydramine HCl (Benadryl) 25 mg Q6H PRN GTB ITCHING; Start 09/12/16 at 08 :30 Famotidine (Pepcid) 20 mg DAILY GTB Last administered on 09/15/16 08:22; Admin Dose 20 MG; Start 09/12/16 at 09:00 Ferrous Sulfate (Feosol Liquid Cup) 300 mg BID GTB Last administered on 08:21; Admin Dose 300 MG; Start 09/12/16 at 09:00 Fluconazole (Diflucan) 100 mg DAILY GTB Last administered on 09/15/16 08:22; Admin Dose 100 MG; Start 09/12/16 at 09:00 Fluoxetine HCl (Prozac) 20 mg DAILY GTB Last administered on 09/15/16 08:22; Admin Dose 20 MG; Start 09/12/16 at 10:00 Lactobacillus Acidoph/Bulgaricus (Floranex) 1 tab TID GTB Last administered on 09/15/16 08:26; Admin Dose 1 TAB; Start 09/12/16 at 09:00 Metoprolol Tartrate (Lopressor) 12.5 mg BID GTB Last administered on 21:34; Admin Dose 12.5 MG; Start 09/12/16 at 09:00 Pregabalin (Lyrica) 50 mg TID GTB Last administered on 09/15/16 08:42; Admin Dose 50 MG; Start 09/12/16 at 09:00 Pyridoxine HCl (Vitamin B6) 100 mg DAILY GTB Last administered on 09/15/16 08 :22; Admin Dose 100 MG; Start 09/12/16 at 09:00 Vitamin E (Vitamin E) 400 units DAILY GTB Last administered on 09/15/16 08:22 ; Admin Dose 400 UNITS; Start 09/12/16 at 10:00 Aspirin (Aspirin) 81 mg DAILY GTB Last administered on 09/15/16 08:22; Admin Dose 81 MG; Start 09/12/16 at 09:00 Acetaminophen (Tylenol Liquid) 650 mg Q6H PRN GTB PAIN 1-3 OR TEMP; Start at 08:30 Acetaminophen/ Hydrocodone Bitart ([place] (5/325)) 1 tab Q6H PRN GTB MODERATE PAIN LEVEL 4-6; Start 09/12/16 at 11:30 Acetaminophen/ Hydrocodone Bitart ([place] (5/325)) 2 tab Q6H PRN GTB MODERATE PAIN LEVEL 4-6; Start 09/12/16 at 13:00 Lorazepam (Ativan) 1 mg Q6 PRN GTB ANXIETY; Start 09/12/16 at 08:30 Lorazepam (Ativan) 1 mg HS PRN GTB ANXIETY, HELP WITH SLEEP; Start 09/12/16 at 08:30 Simethicone (Mylicon) 80 mg Q6H PRN GTB INTESTINAL SPASMS/CRAMPING; Start at 11:30 Zolpidem Tartrate (Ambien) 10 mg HS PRN GTB INSOMNIA; Start 09/12/16 at 08:30 Docusate Sodium 100 mg 100 mg Q12 PRN GTB CONSTIPATION; Start 09/12/16 at 08: 30 Propofol 100 ml @ 3.915 mls/ hr TITRATE PRN IV maintain rass -2 to -3 Last administered on 09/15/16at 06:11; Admin Dose 19.505 MLS/HR; Start 09/13/16 at 19:30 Vancomycin HCl/ Sodium Chloride (Vancocin/NS) 500 ml @ 125 mls/hr Q72H IVPB ; Start 09/15/16 at 12:00 JARED SALCEDO NP Sep 15, 2016 14:49
[2016-09-15] MEDS: COLISTIMETHATE 100 MG in SOD CHLORIDE 0.9% 100 ML IVPB SCH (16:00)
[2016-09-15] MEDS: ATORVASTATIN 10 MG TAB GTB SCH (20:58)
[2016-09-15] MEDS: INSULIN GLARGINE [LANtus] 3 ML PEN SC SCH (21:02)
[2016-09-15] MEDS: COLISTIMETHATE (25 MG/ML INHAL SYG) NEB SCH (21:26)
[2016-09-16] VITALS (72 sets, daily range): BP systolic 84–123; BP diastolic 49–75; PULSE 54–88; RESP 18–26
[2016-09-16] MEDS: INSULIN ASPART [NOVOLOG] 3 ML PEN SC SCH ×5 (00:56→18:00)
[2016-09-16] MEDS: PROPOFOL 100 ML IV PRN ×2 (01:10→12:53)
[2016-09-16] MEDS: ALBUTEROL HFA 8 GM INHALER INH SCH ×6 (01:39→21:28)
[2016-09-16] MEDS: IPRATROPIUM (HFA) 12.9 GM INHALER INH SCH ×6 (01:39→21:28)
[2016-09-16 05:03] LABS: CREATININE 2.57 mg/dl (0.61-1.24); MAGNESIUM 2.3 mg/dl (1.7-2.5); PHOSPHORUS 4.6 mg/dl (2.5-4.9)
[2016-09-16 05:04] LABS: CALCIUM 7.8 mg/dl (8.4-10.2)
[2016-09-16 05:12] LABS: BASOPHIL # 0.1 10^3/ul (0.0-0.1); BASOPHILS % 0.7 % (0.0-2.0); EOSINOPHILS # 0.5 10^3/ul (0.0-0.5); EOSINOPHILS % 6.8 % (0.0-7.0); HEMATOCRIT 26.2 % (42.0-52.0); HEMOGLOBIN 8.4 g/dl (14.0-18.0); LYMPHOCYTES # 0.9 10^3/ul (0.8-2.9); LYMPHOCYTES % 12.6 % (15.0-51.0); MEAN CORPUSCULAR HEMOGLOBIN 24.9 pg (29.0-33.0); MEAN CORPUSCULAR HGB CONC 32.2 g/dl (32.0-37.0); MEAN CORPUSCULAR VOLUME 77.5 fl (82.0-101.0); MONOCYTE # 0.8 10^3/ul (0.3-0.9); MONOCYTES % 10.3 % (0.0-11.0); NEUTROPHIL # 5.1 10^3/ul (1.6-7.5); NEUTROPHILS % 69.6 % (39.0-77.0); PLATELET COUNT 245 10^3/UL (140-440); RED BLOOD COUNT 3.38 10^6/ul (4.70-6.10); RED CELL DISTRIBUTION WIDTH 20.5 % (11.5-14.5); UNCORRECTED WBC 7.4 10^3/ul (4.8-10.8); WHITE BLOOD COUNT 7.4 10^3/ul (4.8-10.8)
[2016-09-16] MEDS: HEPARIN 5,000 UNIT/0.5 ML SYG SC SCH ×3 (06:09→22:04)
[2016-09-16 06:26] LABS: CONDITION 1; LH ANALYZER COMMENTS 1
--- NOTE | 2016-09-16 08:40 | PN ---
Date/Time of Note Date/Time of Note DATE: 09/16/16 TIME: 08:38 Assessment/Plan VTE Prophylaxis VTE Prophylaxis Intervention: heparin Lines/Catheters IV Catheter Type (from Nrs): Luis Central line still needed: Yes Urinary Cath still in place: Yes (oliguric , dialysis pt) Reason Cath still needed: terminal illness/intractable pain Assessment/Plan Chief Complaint/Hosp Course 1. Left great toe osteomyelitis. Continue antibiotics as per infectious disease. Status post evaluation by vascular surgery. 2. Acute on chronic respiratory failure, hypoxic and hypercapnic. S/P intubation on 09/06/2016 because of worsening respiratory distress. Continue inhaled bronchodilators. 3. Ventilator associated pneumonia. Sputum culture positive for Acinetobacter baumannii. ID on board. Antibiotics as per ID. 4. Pulmonary hypertension. Continue supplemental oxygen. 5. Acute on chronic kidney disease. The patient was newly started on hemodialysis. Nephrology following. 6. Congestive heart failure exacerbation. Acute on chronic diastolic dysfunction. Continue hemodialysis as per nephrology. 7. Type 2 diabetes mellitus. Hemoglobin A1c 5.8. Continue sliding scale insulin. 8. Essential hypertension. Continue antihypertensives. 9. Atrial fibrillation. Rate controlled. Cardiology following. Therapeutic anticoagulation will be deferred to cardiology. 10. Dyslipidemia. Continue statins. 11. Gout. Continue allopurinol. 12. Major depression. Continue selective serotonin reuptake inhibitors. 13. Morbid obesity with BMI of 42.5 kg/meter squared. 14. Fluid, electrolytes, and nutrition. Continue NGT feedings. 15. Deep vein thrombosis prophylaxis. Subcutaneous heparin. 16. Gastrointestinal prophylaxis. Histamine 2 blockers. PLAN: Wean off ventilator as per pulmonary. Continue ICU monitoring. Case discussed with Dr. Tipton. Critical care time. 35 minutes. Problems: Subjective 24 Hr Interval Summary Free Text/Dictation No changes in status. Exam/Review of Systems Vital Signs Vitals Vital Signs Date Time Temp Pulse Resp B/P Pulse Ox O2 Delivery O2 Flow Rate FiO2 09/16/16 06:30 57 18 92/59 99 Mechanical Ventilator 09/16/16 05:38 40 09/16/16 04:00 98.7 Intake and Output 09/15/16 09/15/16 09/16/16 15:00 23:00 07:00 Intake Total 466 ml 1679.197 ml 521.365 ml Output Total 85 ml 3780 ml 65 ml Balance 381 ml -2100.803 ml 456.365 ml Exam GENERAL: This is a morbidly obese male sitting in a chair in mild respiratory distress with oxygen via nasal cannula. HEENT: Head normocephalic and atraumatic. Eyes: Anicteric sclerae. Conjunctivae clear. ENT: Nasal septum. Oral mucosa is dry. NECK: Supple. RESPIRATORY: Bilaterally diminished breath sounds. Fine rales. On AC mode ventilation. CARDIAC: Irregularly irregular rhythm. Systolic murmur. ABDOMEN: Soft, nontender, but protuberant. Bowel sounds hypoactive in all 4 quadrants. GENITOURINARY: Deferred. EXTREMITIES: Bilateral lower extremity 2+ edema. Bilateral lower extremity Patrick wrap. NEUROLOGIC: The patient is somnolent now. On propofol gtt. Results Result Diagram: 09/16/16 0400 09/16/16 0400 Results 24 hrs Laboratory Tests Test 09/15/16 17:27 09/15/16 19:30 09/16/16 00:49 09/16/16 04:00 Bedside Glucose 142 120 119 Anion Gap 17 H Basophils # 0.1 Basophils % 0.7 Blood Morphology Comment Blood Urea Nitrogen 61 H Calcium Level 7.8 L Carbon Dioxide Level 27 Chloride Level 97 Creatinine 2.57 H Eosinophils # 0.5 Eosinophils % 6.8 Glucose Level 98 Hematocrit 26.2 L Hemoglobin 8.4 L Lymphocytes # 0.9 Lymphocytes % 12.6 L Magnesium Level 2.3 Mean Corpuscular Hemoglobin 24.9 L Mean Corpuscular Hemoglobin Concent 32.2 Mean Corpuscular Volume 77.5 L Mean Platelet Volume 9.0 Monocytes # 0.8 Monocytes % 10.3 Neutrophils # 5.1 Neutrophils % 69.6 Nucleated Red Blood Cells # 0.0 Nucleated Red Blood Cells % 0.0 Phosphorus Level 4.6 Platelet Count 245 Potassium Level 4.0 Red Blood Count 3.38 L Red Cell Distribution Width 20.5 H Sodium Level 137 White Blood Count 7.4 # Test 09/16/16 04:01 Bedside Glucose 99 Medications Medications Current Medications Morphine Sulfate (morphine) 2 mg Q4H PRN IV SEVERE PAIN LEVEL 7-10 Last administered on 09/03/16at 12:28; Admin Dose 2 MG; Start 08/13/16 at 17:30 Fish Oil (Fish Oil) 1,000 mg DAILY PO Last administered on 09/15/16at 08:22; Admin Dose 1,000 MG; Start 08/14/16 at 09:00 Miscellaneous Information 1 ea NOTE XX ; Start 08/13/16 at 18:00 Glucose (Glutose) 15 gm Q15M PRN PO DECREASED GLUCOSE; Start 08/13/16 at 18:00 Glucose (Glutose) 22.5 gm Q15M PRN PO DECREASED GLUCOSE; Start 08/13/16 at 18: 00 Dextrose (D50w Syringe) 25 ml Q15M PRN IV DECREASED GLUCOSE Last administered on 09/10/16at 09:18; Admin Dose 25 ML; Start 08/13/16 at 18:00 Dextrose (D50w Syringe) 50 ml Q15M PRN IV DECREASED GLUCOSE; Start 08/13/16 at 18:00 Glucagon (Glucagen) 1 mg Q15M PRN IM DECREASED GLUCOSE; Start 08/13/16 at 18: 00 Glucose (Glutose) 15 gm Q15M PRN BUCCAL DECREASED GLUCOSE; Start 08/13/16 at 18:00 Sodium Hypochlorite (Dakin'S (1/4 Strength)) 1 applic DAILY IRR Last administered on 09/15/16at 08:28; Admin Dose 1 APPLIC; Start 08/13/16 at 20:00 IV Flush (NS 10 ml) 10 ml PRN PRN IV IV PTOTOCOL; Start 08/14/16 at 17:00 Ondansetron HCl (Zofran Inj) 4 mg Q4H PRN IV NAUSEA AND/OR VOMITING; Start 08/16/16 at 12:30 Phenol 1 lozenge 1 lozenge Q1H PRN MT DRY MOUTH Last administered on 08/20/16at 21:28; Admin Dose 1 LOZENGE; Start 08/20/16 at 20:30 Norepinephrine/ Dextrose (Levophed/D5W) 500 ml @ 1.87 mls/hr TITRATE IV ; Start 09/09/16 at 08:00 Lorazepam (Ativan) 2 mg Q4H PRN IV anxiety; Start 09/09/16 at 10:30 Heparin Sodium (Porcine) (Heparin (5000 Units/0.5 ml)) 5,000 unit Q8 SC Last administered on 09/16/16 06:09; Admin Dose 5,000 UNIT; Start 09/09/16 at 22:00 Insulin Aspart (Novolog Insulin Pen) NOVOLOG *MILD* ALGORI... Q4 SC Last administered on 09/13/16 23:16; Admin Dose 1 UNIT; Start 09/11/16 at 01:00 Insulin Glargine 10 unit 10 unit HS SC Last administered on 09/15/16 21:02; Admin Dose 10 UNIT; Start 09/10/16 at 22:00 Colistimethate Sodium/Sodium Chloride (Coly-Mycin/NS) 100 ml @ 50 mls/hr Q24H IVPB Last administered on 09/15/16 16:00; Admin Dose 50 MLS/HR; Start at 16:00 Acetylcysteine (Nac) 600 mg BID GTB Last administered on 09/15/16 20:59; Admin Dose 600 MG; Start 09/12/16 at 09:00 Allopurinol (Zyloprim) 100 mg DAILY GTB Last administered on 09/15/16 08:22; Admin Dose 100 MG; Start 09/12/16 at 09:00 Ascorbic Acid (Vitamin C) 500 mg DAILY GTB Last administered on 09/15/16 08: 24; Admin Dose 500 MG; Start 09/12/16 at 09:00 Atorvastatin Calcium (Lipitor) 10 mg QHS GTB Last administered on 09/15/16 20 :58; Admin Dose 10 MG; Start 09/12/16 at 21:00 Cholecalciferol (Vitamin D) 1,000 unit DAILY GTB Last administered on 08:25; Admin Dose 1,000 UNIT; Start 09/12/16 at 09:00 Diphenhydramine HCl (Benadryl) 25 mg Q6H PRN GTB ITCHING; Start 09/12/16 at 08 :30 Famotidine (Pepcid) 20 mg DAILY GTB Last administered on 09/15/16 08:22; Admin Dose 20 MG; Start 09/12/16 at 09:00 Ferrous Sulfate (Feosol Liquid Cup) 300 mg BID GTB Last administered on 20:58; Admin Dose 300 MG; Start 09/12/16 at 09:00 Fluconazole (Diflucan) 100 mg DAILY GTB Last administered on 09/15/16 08:22; Admin Dose 100 MG; Start 09/12/16 at 09:00 Fluoxetine HCl (Prozac) 20 mg DAILY GTB Last administered on 09/15/16 08:22; Admin Dose 20 MG; Start 09/12/16 at 10:00 Lactobacillus Acidoph/Bulgaricus (Floranex) 1 tab TID GTB Last administered on 09/15/16at 20:58; Admin Dose 1 TAB; Start 09/12/16 at 09:00 Metoprolol Tartrate (Lopressor) 12.5 mg BID GTB Last administered on 20:59; Admin Dose 12.5 MG; Start 09/12/16 at 09:00 Pregabalin (Lyrica) 50 mg TID GTB Last administered on 09/15/16 20:59; Admin Dose 50 MG; Start 09/12/16 at 09:00 Pyridoxine HCl (Vitamin B6) 100 mg DAILY GTB Last administered on 09/15/16 08 :22; Admin Dose 100 MG; Start 09/12/16 at 09:00 Vitamin E (Vitamin E) 400 units DAILY GTB Last administered on 09/15/16 08:22 ; Admin Dose 400 UNITS; Start 09/12/16 at 10:00 Aspirin (Aspirin) 81 mg DAILY GTB Last administered on 09/15/16 08:22; Admin Dose 81 MG; Start 09/12/16 at 09:00 Acetaminophen (Tylenol Liquid) 650 mg Q6H PRN GTB PAIN 1-3 OR TEMP; Start at 08:30 Acetaminophen/ Hydrocodone Bitart ([place] (5/325)) 1 tab Q6H PRN GTB MODERATE PAIN LEVEL 4-6; Start 09/12/16 at 11:30 Acetaminophen/ Hydrocodone Bitart ([place] (5/325)) 2 tab Q6H PRN GTB MODERATE PAIN LEVEL 4-6; Start 09/12/16 at 13:00 Lorazepam (Ativan) 1 mg Q6 PRN GTB ANXIETY; Start 09/12/16 at 08:30 Lorazepam (Ativan) 1 mg HS PRN GTB ANXIETY, HELP WITH SLEEP; Start 09/12/16 at 08:30 Simethicone (Mylicon) 80 mg Q6H PRN GTB INTESTINAL SPASMS/CRAMPING; Start at 11:30 Zolpidem Tartrate (Ambien) 10 mg HS PRN GTB INSOMNIA; Start 09/12/16 at 08:30 Docusate Sodium 100 mg 100 mg Q12 PRN GTB CONSTIPATION; Start 09/12/16 at 08: 30 Propofol 100 ml @ 3.915 mls/ hr TITRATE PRN IV maintain rass -2 to -3 Last administered on 09/16/16t 01:10; Admin Dose 15.66 MLS/HR; Start 09/13/16 at 19: 30 Vancomycin HCl/ Sodium Chloride (Vancocin/NS) 500 ml @ 125 mls/hr Q72H IVPB Last administered on 09/15/16at 15:00; Admin Dose 125 MLS/HR; Start 09/15/16 at 12:00 GIO BISHOP NP Sep 16, 2016 08:39
[2016-09-16] MEDS: METOPROLOL 25 MG TAB GTB SCH ×2 (09:00→20:39)
[2016-09-16] MEDS: ASPIRIN 81 MG TAB GTB SCH (09:00)
[2016-09-16] MEDS: COLISTIMETHATE (25 MG/ML INHAL SYG) NEB SCH ×2 (09:42→19:36)
[2016-09-16] MEDS: FERROUS SULFATE 60 MG/ML 5ML CUP GTB SCH ×2 (10:01→20:38)
[2016-09-16] MEDS: FLUOXETINE 20 MG CAP GTB SCH (10:02)
[2016-09-16] MEDS: ACETYLCYSTEINE 600 MG CAP GTB SCH ×2 (10:02→20:40)
[2016-09-16] MEDS: FAMOTIDINE 20 MG TAB GTB SCH (10:02)
[2016-09-16] MEDS: FLUCONAZOLE 100 MG TAB GTB SCH (10:02)
[2016-09-16] MEDS: PREGABALIN 25 MG CAP GTB SCH ×3 (10:02→20:40)
[2016-09-16] MEDS: FISH OIL 1,000 MG CAP PO SCH (10:02)
[2016-09-16] MEDS: PYRIDOXINE 50 MG TAB GTB SCH (10:02)
[2016-09-16] MEDS: CALCIUM CARBONATE 500 MG CHEW TAB GTB SCH ×3 (10:03→18:35)
[2016-09-16] MEDS: ALLOPURINOL 100 MG TAB GTB SCH (10:03)
[2016-09-16] MEDS: VITAMIN E 400 UNITS CAP GTB SCH (10:03)
[2016-09-16] MEDS: LACTOBACILLUS CHEW TAB GTB SCH ×3 (10:03→20:39)
[2016-09-16] MEDS: CHOLECALCIFEROL 1,000 UNIT TAB GTB SCH (10:03)
[2016-09-16] MEDS: ASCORBIC ACID 500 MG TAB GTB SCH (10:03)
[2016-09-16] MEDS: SODIUM HYPOCHLORITE 0.125% 473 ML BTL IRR SCH (10:05)
--- NOTE | 2016-09-16 10:37 | CONS ---
Date/Time of Note Date/Time of Note DATE: 09/16/16 TIME: 10:36 Consult Date/Type/Reason Admit Date/Time Aug 13, 2016 at 16:30 Initial Consult Date 08/13/16 Type of Consultation: pulmonary Ordering Provider: KELLEN MEDINA MD Subjective Continues mechanical ventilation moderate oral secretions Objective Vital Signs Date Time Temp Pulse Resp B/P Pulse Ox O2 Delivery O2 Flow Rate FiO2 09/16/16 08:00 64 09/16/16 06:30 18 92/59 99 Mechanical Ventilator 09/16/16 05:38 40 09/16/16 04:00 98.7 Intake and Output 09/15/16 09/15/16 09/16/16 15:00 23:00 07:00 Intake Total 466 ml 1679.197 ml 521.365 ml Output Total 85 ml 3780 ml 65 ml Balance 381 ml -2100.803 ml 456.365 ml PHYSICAL EXAMINATION GENERAL: Elderly gentleman, intubated on mechanical ventilation, opens eyes comfortable generalized weakness VITAL SIGNS: see below. HEENT: Pupils equal, round, and reactive to light. CARDIAC: S1, S2, tachycardia. CHEST: Diminished air entry bilaterally. ABDOMEN: Mildly distended. No bowel sounds. EXTREMITIES: No cyanosis, clubbing, edema +2 NEUROLOGIC: No focal deficits. Results/Medications Result Diagram: 09/16/16 0400 09/16/16 0400 Results 24 hrs Laboratory Tests Test 09/15/16 17:27 09/15/16 19:30 09/16/16 00:49 09/16/16 04:00 Bedside Glucose 142 120 119 Anion Gap 17 H Basophils # 0.1 Basophils % 0.7 Blood Morphology Comment Blood Urea Nitrogen 61 H Calcium Level 7.8 L Carbon Dioxide Level 27 Chloride Level 97 Creatinine 2.57 H Eosinophils # 0.5 Eosinophils % 6.8 Glucose Level 98 Hematocrit 26.2 L Hemoglobin 8.4 L Lymphocytes # 0.9 Lymphocytes % 12.6 L Magnesium Level 2.3 Mean Corpuscular Hemoglobin 24.9 L Mean Corpuscular Hemoglobin Concent 32.2 Mean Corpuscular Volume 77.5 L Mean Platelet Volume 9.0 Monocytes # 0.8 Monocytes % 10.3 Neutrophils # 5.1 Neutrophils % 69.6 Nucleated Red Blood Cells # 0.0 Nucleated Red Blood Cells % 0.0 Phosphorus Level 4.6 Platelet Count 245 Potassium Level 4.0 Red Blood Count 3.38 L Red Cell Distribution Width 20.5 H Sodium Level 137 White Blood Count 7.4 # Test 09/16/16 04:01 09/16/16 09:00 Bedside Glucose 99 92 Medications Current Medications Morphine Sulfate (morphine) 2 mg Q4H PRN IV SEVERE PAIN LEVEL 7-10 Last administered on 09/03/16at 12:28; Admin Dose 2 MG; Start 08/13/16 at 17:30 Fish Oil (Fish Oil) 1,000 mg DAILY PO Last administered on 09/16/16 10:02; Admin Dose 1,000 MG; Start 08/14/16 at 09:00 Miscellaneous Information 1 ea NOTE XX ; Start 08/13/16 at 18:00 Glucose (Glutose) 15 gm Q15M PRN PO DECREASED GLUCOSE; Start 08/13/16 at 18:00 Glucose (Glutose) 22.5 gm Q15M PRN PO DECREASED GLUCOSE; Start 08/13/16 at 18: 00 Dextrose (D50w Syringe) 25 ml Q15M PRN IV DECREASED GLUCOSE Last administered on 09/10/16at 09:18; Admin Dose 25 ML; Start 08/13/16 at 18:00 Dextrose (D50w Syringe) 50 ml Q15M PRN IV DECREASED GLUCOSE; Start 08/13/16 at 18:00 Glucagon (Glucagen) 1 mg Q15M PRN IM DECREASED GLUCOSE; Start 08/13/16 at 18: 00 Glucose (Glutose) 15 gm Q15M PRN BUCCAL DECREASED GLUCOSE; Start 08/13/16 at 18:00 Sodium Hypochlorite (Dakin'S (1/4 Strength)) 1 applic DAILY IRR Last administered on 09/16/16 10:05; Admin Dose 1 APPLIC; Start 08/13/16 at 20:00 IV Flush (NS 10 ml) 10 ml PRN PRN IV IV PTOTOCOL; Start 08/14/16 at 17:00 Ondansetron HCl (Zofran Inj) 4 mg Q4H PRN IV NAUSEA AND/OR VOMITING; Start 08/16/16 at 12:30 Phenol 1 lozenge 1 lozenge Q1H PRN MT DRY MOUTH Last administered on 08/20/16at 21:28; Admin Dose 1 LOZENGE; Start 08/20/16 at 20:30 Norepinephrine/ Dextrose (Levophed/D5W) 500 ml @ 1.87 mls/hr TITRATE IV ; Start 09/09/16 at 08:00 Lorazepam (Ativan) 2 mg Q4H PRN IV anxiety; Start 09/09/16 at 10:30 Heparin Sodium (Porcine) (Heparin (5000 Units/0.5 ml)) 5,000 unit Q8 SC Last administered on 09/16/16 06:09; Admin Dose 5,000 UNIT; Start 09/09/16 at 22:00 Insulin Glargine 10 unit 10 unit HS SC Last administered on 09/15/16at 21:02; Admin Dose 10 UNIT; Start 09/10/16 at 22:00 Colistimethate Sodium/Sodium Chloride (Coly-Mycin/NS) 100 ml @ 50 mls/hr Q24H IVPB Last administered on 09/15/16at 16:00; Admin Dose 50 MLS/HR; Start at 16:00 Acetylcysteine (Nac) 600 mg BID GTB Last administered on 09/16/16 10:02; Admin Dose 600 MG; Start 09/12/16 at 09:00 Allopurinol (Zyloprim) 100 mg DAILY GTB Last administered on 09/16/16 10:03; Admin Dose 100 MG; Start 09/12/16 at 09:00 Ascorbic Acid (Vitamin C) 500 mg DAILY GTB Last administered on 09/16/16 10:03 ; Admin Dose 500 MG; Start 09/12/16 at 09:00 Atorvastatin Calcium (Lipitor) 10 mg QHS GTB Last administered on 09/15/16at 20 :58; Admin Dose 10 MG; Start 09/12/16 at 21:00 Cholecalciferol (Vitamin D) 1,000 unit DAILY GTB Last administered on 09/16/16 10:03; Admin Dose 1,000 UNIT; Start 09/12/16 at 09:00 Diphenhydramine HCl (Benadryl) 25 mg Q6H PRN GTB ITCHING; Start 09/12/16 at 08 :30 Famotidine (Pepcid) 20 mg DAILY GTB Last administered on 09/16/16 10:02; Admin Dose 20 MG; Start 09/12/16 at 09:00 Ferrous Sulfate (Feosol Liquid Cup) 300 mg BID GTB Last administered on 10:01; Admin Dose 300 MG; Start 09/12/16 at 09:00 Fluconazole (Diflucan) 100 mg DAILY GTB Last administered on 09/16/16 10:02; Admin Dose 100 MG; Start 09/12/16 at 09:00 Fluoxetine HCl (Prozac) 20 mg DAILY GTB Last administered on 09/16/16 10:02; Admin Dose 20 MG; Start 09/12/16 at 10:00 Lactobacillus Acidoph/Bulgaricus (Floranex) 1 tab TID GTB Last administered on 09/16/16 10:03; Admin Dose 1 TAB; Start 09/12/16 at 09:00 Metoprolol Tartrate (Lopressor) 12.5 mg BID GTB Last administered on at 20:59; Admin Dose 12.5 MG; Start 09/12/16 at 09:00 Pregabalin (Lyrica) 50 mg TID GTB Last administered on 09/16/16 10:02; Admin Dose 50 MG; Start 09/12/16 at 09:00 Pyridoxine HCl (Vitamin B6) 100 mg DAILY GTB Last administered on 09/16/16 10: 02; Admin Dose 100 MG; Start 09/12/16 at 09:00 Vitamin E (Vitamin E) 400 units DAILY GTB Last administered on 09/16/16 10:03; Admin Dose 400 UNITS; Start 09/12/16 at 10:00 Aspirin (Aspirin) 81 mg DAILY GTB Last administered on 09/16/16 09:00; Admin Dose 81 MG; Start 09/12/16 at 09:00 Acetaminophen (Tylenol Liquid) 650 mg Q6H PRN GTB PAIN 1-3 OR TEMP; Start at 08:30 Acetaminophen/ Hydrocodone Bitart ([place] (5/325)) 1 tab Q6H PRN GTB MODERATE PAIN LEVEL 4-6; Start 09/12/16 at 11:30 Acetaminophen/ Hydrocodone Bitart ([place] (5/325)) 2 tab Q6H PRN GTB MODERATE PAIN LEVEL 4-6; Start 09/12/16 at 13:00 Lorazepam (Ativan) 1 mg Q6 PRN GTB ANXIETY; Start 09/12/16 at 08:30 Lorazepam (Ativan) 1 mg HS PRN GTB ANXIETY, HELP WITH SLEEP; Start 09/12/16 at 08:30 Simethicone (Mylicon) 80 mg Q6H PRN GTB INTESTINAL SPASMS/CRAMPING; Start at 11:30 Zolpidem Tartrate (Ambien) 10 mg HS PRN GTB INSOMNIA; Start 09/12/16 at 08:30 Docusate Sodium 100 mg 100 mg Q12 PRN GTB CONSTIPATION; Start 09/12/16 at 08: 30 Propofol 100 ml @ 3.915 mls/ hr TITRATE PRN IV maintain rass -2 to -3 Last administered on 09/16/16t 01:10; Admin Dose 15.66 MLS/HR; Start 09/13/16 at 19: 30 Vancomycin HCl/ Sodium Chloride (Vancocin/NS) 500 ml @ 125 mls/hr Q72H IVPB Last administered on 09/15/16at 15:00; Admin Dose 125 MLS/HR; Start 09/15/16 at 12:00 Insulin Aspart (Novolog Insulin Pen) NOVOLOG *MILD* ALGORI... Q6 SC ; Start 09/16 at 12:00 Assessment/Plan Chief Complaint/Hosp Course Assessment and plan 1. . Acute on chronic respiratory failure, hypoxic and hypercapnic. S/P intubation on 09/06/2016 because of worsening respiratory distress. Continue mechanical ventilation not for weaning today. Significant pulmonary edema with underlying infiltrates. Hypoxemia with CPAP trial will attempt again tomorrow 2. Left great toe osteomyelitis. Continue antibiotics as per infectious disease. 3..Pulmonary hypertension. Continue supplemental oxygen. 4. End-stage renal failure now on hemodialysis. Evidence of primary edema will require continued volume removal 5. Dysphagia continue tube feeding 6. Atrial fibrillation currently rate controlled Disposition continue current level of care Problems: E[facility] BUSTILLO MD, [facility] Sep 16, 2016 10:36
--- NOTE | 2016-09-16 10:58 | CONS ---
Date/Time of Note Date/Time of Note DATE: 09/16/16 TIME: 10:56 Assessment/Plan Assessment/Plan Chief Complaint/Hosp Course ID PROGRESS NOTE 24H INTERVAL SUMMARY * No events overnight - noncommunicative on the Vent, failed weaning attempt yesterday WBC normalized, no fever reported * ABX: Colistin IV + Vanco IV PHYSICAL EXAMINATION: GENERAL: 60 yo Morbid Obese M -> non-communicative on the Vent HEENT: Unremarkable NECK: Supple, trachea midline. CHEST: Rise symmetrical, course BS ABDOMEN: Soft, EXTREMITIES: Bilateral Patrick wraps. ID ASSESSMENT: 60 yo super morbid obese M [BMI >42] admit with: 1. Bilateral lower extremities acute on chronic cellulitis with chronic venous stasis and left Great toe osteomyelitis. 2. PAD=> s/p angiogram 3. Systemic inflammatory response syndrome 2 to above. * Resolving Septicemia=>(+)KENAN 4. Hypoxic respiratory failure 5. HCAP =>Acinetobacter baumannii, on colistin day #5 6. Atrial fibrillation, chronic. 7. Acute renal failure/CKD => HD dependent (-)MRSA Nares CURRENT ABX: Vanco IV + Colistin IV + Colistin INH added for moderate secretions ID PLAN: Continue current ABX + Colistin IV for ACBA PNA ADD COLISTIN INH = moderate secretions w/failed weaning Weaning per pulmonary . . Problems: Consultation Date/Type/Reason Admit Date/Time Aug 13, 2016 at 16:30 Initial Consult Date 08/13/16 Type of Consultation: ID Referring Provider: KELLEN MEDINA MD Exam/Review of Systems Vital Signs Vitals Vital Signs Date Time Temp Pulse Resp B/P Pulse Ox O2 Delivery O2 Flow Rate FiO2 09/16/16 08:00 64 09/16/16 06:30 18 92/59 99 Mechanical Ventilator 09/16/16 05:38 40 09/16/16 04:00 98.7 Intake and Output 09/15/16 09/15/16 09/16/16 15:00 23:00 07:00 Intake Total 466 ml 1679.197 ml 521.365 ml Output Total 85 ml 3780 ml 65 ml Balance 381 ml -2100.803 ml 456.365 ml Results Result Diagram: 09/16/16 0400 09/16/16 0400 Results 24 hrs Laboratory Tests Test 09/15/16 17:27 09/15/16 19:30 09/16/16 00:49 1/1/17 04:00 Bedside Glucose 142 120 119 Anion Gap 17 H Basophils # 0.1 Basophils % 0.7 Blood Morphology Comment Blood Urea Nitrogen 61 H Calcium Level 7.8 L Carbon Dioxide Level 27 Chloride Level 97 Creatinine 2.57 H Eosinophils # 0.5 Eosinophils % 6.8 Glucose Level 98 Hematocrit 26.2 L Hemoglobin 8.4 L Lymphocytes # 0.9 Lymphocytes % 12.6 L Magnesium Level 2.3 Mean Corpuscular Hemoglobin 24.9 L Mean Corpuscular Hemoglobin Concent 32.2 Mean Corpuscular Volume 77.5 L Mean Platelet Volume 9.0 Monocytes # 0.8 Monocytes % 10.3 Neutrophils # 5.1 Neutrophils % 69.6 Nucleated Red Blood Cells # 0.0 Nucleated Red Blood Cells % 0.0 Phosphorus Level 4.6 Platelet Count 245 Potassium Level 4.0 Red Blood Count 3.38 L Red Cell Distribution Width 20.5 H Sodium Level 137 White Blood Count 7.4 # Test 09/16/16 04:01 09/16/16 09:00 Bedside Glucose 99 92 Medications Medications Current Medications Morphine Sulfate (morphine) 2 mg Q4H PRN IV SEVERE PAIN LEVEL 7-10 Last administered on 09/03/16at 12:28; Admin Dose 2 MG; Start 08/13/16 at 17:30 Fish Oil (Fish Oil) 1,000 mg DAILY PO Last administered on 09/16/16t 10:02; Admin Dose 1,000 MG; Start 08/14/16 at 09:00 Miscellaneous Information 1 ea NOTE XX ; Start 08/13/16 at 18:00 Glucose (Glutose) 15 gm Q15M PRN PO DECREASED GLUCOSE; Start 08/13/16 at 18:00 Glucose (Glutose) 22.5 gm Q15M PRN PO DECREASED GLUCOSE; Start 08/13/16 at 18: 00 Dextrose (D50w Syringe) 25 ml Q15M PRN IV DECREASED GLUCOSE Last administered on 09/10/16at 09:18; Admin Dose 25 ML; Start 08/13/16 at 18:00 Dextrose (D50w Syringe) 50 ml Q15M PRN IV DECREASED GLUCOSE; Start 08/13/16 at 18:00 Glucagon (Glucagen) 1 mg Q15M PRN IM DECREASED GLUCOSE; Start 08/13/16 at 18: 00 Glucose (Glutose) 15 gm Q15M PRN BUCCAL DECREASED GLUCOSE; Start 08/13/16 at 18:00 Sodium Hypochlorite (Dakin'S (1/4 Strength)) 1 applic DAILY IRR Last administered on 09/16/16 10:05; Admin Dose 1 APPLIC; Start 08/13/16 at 20:00 IV Flush (NS 10 ml) 10 ml PRN PRN IV IV PTOTOCOL; Start 08/14/16 at 17:00 Ondansetron HCl (Zofran Inj) 4 mg Q4H PRN IV NAUSEA AND/OR VOMITING; Start 08/16/16 at 12:30 Phenol 1 lozenge 1 lozenge Q1H PRN MT DRY MOUTH Last administered on 08/20/16at 21:28; Admin Dose 1 LOZENGE; Start 08/20/16 at 20:30 Norepinephrine/ Dextrose (Levophed/D5W) 500 ml @ 1.87 mls/hr TITRATE IV ; Start 09/09/16 at 08:00 Lorazepam (Ativan) 2 mg Q4H PRN IV anxiety; Start 09/09/16 at 10:30 Heparin Sodium (Porcine) (Heparin (5000 Units/0.5 ml)) 5,000 unit Q8 SC Last administered on 09/16/16 06:09; Admin Dose 5,000 UNIT; Start 09/09/16 at 22:00 Insulin Glargine 10 unit 10 unit HS SC Last administered on 09/15/16 21:02; Admin Dose 10 UNIT; Start 09/10/16 at 22:00 Colistimethate Sodium/Sodium Chloride (Coly-Mycin/NS) 100 ml @ 50 mls/hr Q24H IVPB Last administered on 09/15/16at 16:00; Admin Dose 50 MLS/HR; Start at 16:00 Acetylcysteine (Nac) 600 mg BID GTB Last administered on 09/16/16 10:02; Admin Dose 600 MG; Start 09/12/16 at 09:00 Allopurinol (Zyloprim) 100 mg DAILY GTB Last administered on 09/16/16 10:03; Admin Dose 100 MG; Start 09/12/16 at 09:00 Ascorbic Acid (Vitamin C) 500 mg DAILY GTB Last administered on 09/16/16 10:03 ; Admin Dose 500 MG; Start 09/12/16 at 09:00 Atorvastatin Calcium (Lipitor) 10 mg QHS GTB Last administered on 09/15/16at 20 :58; Admin Dose 10 MG; Start 09/12/16 at 21:00 Cholecalciferol (Vitamin D) 1,000 unit DAILY GTB Last administered on 09/16/16 10:03; Admin Dose 1,000 UNIT; Start 09/12/16 at 09:00 Diphenhydramine HCl (Benadryl) 25 mg Q6H PRN GTB ITCHING; Start 09/12/16 at 08 :30 Famotidine (Pepcid) 20 mg DAILY GTB Last administered on 09/16/16 10:02; Admin Dose 20 MG; Start 09/12/16 at 09:00 Ferrous Sulfate (Feosol Liquid Cup) 300 mg BID GTB Last administered on 10:01; Admin Dose 300 MG; Start 09/12/16 at 09:00 Fluconazole (Diflucan) 100 mg DAILY GTB Last administered on 09/16/16 10:02; Admin Dose 100 MG; Start 09/12/16 at 09:00 Fluoxetine HCl (Prozac) 20 mg DAILY GTB Last administered on 09/16/16 10:02; Admin Dose 20 MG; Start 09/12/16 at 10:00 Lactobacillus Acidoph/Bulgaricus (Floranex) 1 tab TID GTB Last administered on 09/16/16 10:03; Admin Dose 1 TAB; Start 09/12/16 at 09:00 Metoprolol Tartrate (Lopressor) 12.5 mg BID GTB Last administered on at 20:59; Admin Dose 12.5 MG; Start 09/12/16 at 09:00 Pregabalin (Lyrica) 50 mg TID GTB Last administered on 09/16/16 10:02; Admin Dose 50 MG; Start 09/12/16 at 09:00 Pyridoxine HCl (Vitamin B6) 100 mg DAILY GTB Last administered on 09/16/16 10: 02; Admin Dose 100 MG; Start 09/12/16 at 09:00 Vitamin E (Vitamin E) 400 units DAILY GTB Last administered on 09/16/16 10:03; Admin Dose 400 UNITS; Start 09/12/16 at 10:00 Aspirin (Aspirin) 81 mg DAILY GTB Last administered on 09/16/16 09:00; Admin Dose 81 MG; Start 09/12/16 at 09:00 Acetaminophen (Tylenol Liquid) 650 mg Q6H PRN GTB PAIN 1-3 OR TEMP; Start at 08:30 Acetaminophen/ Hydrocodone Bitart ([place] (5/325)) 1 tab Q6H PRN GTB MODERATE PAIN LEVEL 4-6; Start 09/12/16 at 11:30 Acetaminophen/ Hydrocodone Bitart ([place] (5/325)) 2 tab Q6H PRN GTB MODERATE PAIN LEVEL 4-6; Start 09/12/16 at 13:00 Lorazepam (Ativan) 1 mg Q6 PRN GTB ANXIETY; Start 09/12/16 at 08:30 Lorazepam (Ativan) 1 mg HS PRN GTB ANXIETY, HELP WITH SLEEP; Start 09/12/16 at 08:30 Simethicone (Mylicon) 80 mg Q6H PRN GTB INTESTINAL SPASMS/CRAMPING; Start at 11:30 Zolpidem Tartrate (Ambien) 10 mg HS PRN GTB INSOMNIA; Start 09/12/16 at 08:30 Docusate Sodium 100 mg 100 mg Q12 PRN GTB CONSTIPATION; Start 09/12/16 at 08: 30 Propofol 100 ml @ 3.915 mls/ hr TITRATE PRN IV maintain rass -2 to -3 Last administered on 09/16/16 01:10; Admin Dose 15.66 MLS/HR; Start 09/13/16 at 19: 30 Vancomycin HCl/ Sodium Chloride (Vancocin/NS) 500 ml @ 125 mls/hr Q72H IVPB Last administered on 09/15/16at 15:00; Admin Dose 125 MLS/HR; Start 09/15/16 at 12:00 Insulin Aspart (Novolog Insulin Pen) NOVOLOG *MILD* ALGORI... Q6 SC ; Start 09/16 at 12:00 JARED SALCEDO NP Sep 16, 2016 10:58
[2016-09-16] MEDS ORDERED: DIMETHICONE STICK TOP PRN (16:30)
--- NOTE | 2016-09-16 16:34 | CONS ---
Date/Time of Note Date/Time of Note DATE: 09/16/16 TIME: 16:23 Assessment/Plan Assessment/Plan Problems: (1) Diabetic foot infection Status: Acute Comment: Per ID & Podiatry (2) Acute renal injury Status: Acute Comment: Pt remains oliguric, will need hd for UF (3) Obesity Status: Chronic (4) Anemia Status: Chronic Comment: Check Iron studies, pt on Epo Consultation Date/Type/Reason Admit Date/Time Aug 13, 2016 at 16:30 Initial Consult Date 08/13/16 Type of Consultation: renal Referring Provider: KELLEN MEDINA MD 24 HR Interval Summary Subjective hx not possible: other (more alert & responsive) Constitutional: improved Exam/Review of Systems Vital Signs Vitals Vital Signs Date Time Temp Pulse Resp B/P Pulse Ox O2 Delivery O2 Flow Rate FiO2 09/16/16 12:45 68 09/16/16 12:45 18 09/16/16 12:00 40 09/16/16 11:30 95 09/16/16 10:30 100/62 Mechanical Ventilator 09/16/16 08:00 98.2 Intake and Output 09/15/16 09/15/16 09/16/16 15:00 23:00 07:00 Intake Total 466 ml 1679.197 ml 571.365 ml Output Total 85 ml 3780 ml 65 ml Balance 381 ml -2100.803 ml 506.365 ml Exam Constitutional: other (vent dependent) Psych: no complaints Head: normocephalic ENMT: nl external ears & nose Respiratory: diminished breath sounds Cardiovascular: regular rate and rhythm Gastrointestinal: soft Extremities: normal pulses 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: [employer] 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 Additional Comments Check Iron & administer if low Results Pt could not be weaned off vent Tolerated UF with HD Result Diagram: 09/16/16 0400 09/16/16 0400 Results 24 hrs Laboratory Tests Test 09/15/16 17:27 09/15/16 19:30 09/16/16 00:49 09/16/16 04:00 Bedside Glucose 142 120 119 Anion Gap 17 H Basophils # 0.1 Basophils % 0.7 Blood Morphology Comment Blood Urea Nitrogen 61 H Calcium Level 7.8 L Carbon Dioxide Level 27 Chloride Level 97 Creatinine 2.57 H Eosinophils # 0.5 Eosinophils % 6.8 Glucose Level 98 Hematocrit 26.2 L Hemoglobin 8.4 L Lymphocytes # 0.9 Lymphocytes % 12.6 L Magnesium Level 2.3 Mean Corpuscular Hemoglobin 24.9 L Mean Corpuscular Hemoglobin Concent 32.2 Mean Corpuscular Volume 77.5 L Mean Platelet Volume 9.0 Monocytes # 0.8 Monocytes % 10.3 Neutrophils # 5.1 Neutrophils % 69.6 Nucleated Red Blood Cells # 0.0 Nucleated Red Blood Cells % 0.0 Phosphorus Level 4.6 Platelet Count 245 Potassium Level 4.0 Red Blood Count 3.38 L Red Cell Distribution Width 20.5 H Sodium Level 137 White Blood Count 7.4 # Test 09/16/16 04:01 09/16/16 09:00 09/16/16 12:27 Bedside Glucose 99 92 129 Medications Medications Current Medications Morphine Sulfate (morphine) 2 mg Q4H PRN IV SEVERE PAIN LEVEL 7-10 Last administered on 09/03/16at 12:28; Admin Dose 2 MG; Start 08/13/16 at 17:30 Fish Oil (Fish Oil) 1,000 mg DAILY PO Last administered on 09/16/16 10:02; Admin Dose 1,000 MG; Start 08/14/16 at 09:00 Miscellaneous Information 1 ea NOTE XX ; Start 08/13/16 at 18:00 Glucose (Glutose) 15 gm Q15M PRN PO DECREASED GLUCOSE; Start 08/13/16 at 18:00 Glucose (Glutose) 22.5 gm Q15M PRN PO DECREASED GLUCOSE; Start 08/13/16 at 18: 00 Dextrose (D50w Syringe) 25 ml Q15M PRN IV DECREASED GLUCOSE Last administered on 09/10/16at 09:18; Admin Dose 25 ML; Start 08/13/16 at 18:00 Dextrose (D50w Syringe) 50 ml Q15M PRN IV DECREASED GLUCOSE; Start 08/13/16 at 18:00 Glucagon (Glucagen) 1 mg Q15M PRN IM DECREASED GLUCOSE; Start 08/13/16 at 18: 00 Glucose (Glutose) 15 gm Q15M PRN BUCCAL DECREASED GLUCOSE; Start 08/13/16 at 18:00 Sodium Hypochlorite (Dakin'S (1/4 Strength)) 1 applic DAILY IRR Last administered on 09/16/16 10:05; Admin Dose 1 APPLIC; Start 08/13/16 at 20:00 IV Flush (NS 10 ml) 10 ml PRN PRN IV IV PTOTOCOL; Start 08/14/16 at 17:00 Ondansetron HCl (Zofran Inj) 4 mg Q4H PRN IV NAUSEA AND/OR VOMITING; Start 08/16/16 at 12:30 Phenol 1 lozenge 1 lozenge Q1H PRN MT DRY MOUTH Last administered on 08/20/16at 21:28; Admin Dose 1 LOZENGE; Start 08/20/16 at 20:30 Norepinephrine/ Dextrose (Levophed/D5W) 500 ml @ 1.87 mls/hr TITRATE IV ; Start 09/09/16 at 08:00 Lorazepam (Ativan) 2 mg Q4H PRN IV anxiety; Start 09/09/16 at 10:30 Heparin Sodium (Porcine) (Heparin (5000 Units/0.5 ml)) 5,000 unit Q8 SC Last administered on 09/16/16 15:04; Admin Dose 5,000 UNIT; Start 09/09/16 at 22:00 Insulin Glargine 10 unit 10 unit HS SC Last administered on 09/15/16at 21:02; Admin Dose 10 UNIT; Start 09/10/16 at 22:00 Colistimethate Sodium/Sodium Chloride (Coly-Mycin/NS) 100 ml @ 50 mls/hr Q24H IVPB Last administered on 09/15/16at 16:00; Admin Dose 50 MLS/HR; Start at 16:00 Acetylcysteine (Nac) 600 mg BID GTB Last administered on 09/16/16 10:02; Admin Dose 600 MG; Start 09/12/16 at 09:00 Allopurinol (Zyloprim) 100 mg DAILY GTB Last administered on 09/16/16 10:03; Admin Dose 100 MG; Start 09/12/16 at 09:00 Ascorbic Acid (Vitamin C) 500 mg DAILY GTB Last administered on 09/16/16 10:03 ; Admin Dose 500 MG; Start 09/12/16 at 09:00 Atorvastatin Calcium (Lipitor) 10 mg QHS GTB Last administered on 09/15/16at 20 :58; Admin Dose 10 MG; Start 09/12/16 at 21:00 Cholecalciferol (Vitamin D) 1,000 unit DAILY GTB Last administered on 09/16/16 10:03; Admin Dose 1,000 UNIT; Start 09/12/16 at 09:00 Diphenhydramine HCl (Benadryl) 25 mg Q6H PRN GTB ITCHING; Start 09/12/16 at 08 :30 Famotidine (Pepcid) 20 mg DAILY GTB Last administered on 09/16/16 10:02; Admin Dose 20 MG; Start 09/12/16 at 09:00 Ferrous Sulfate (Feosol Liquid Cup) 300 mg BID GTB Last administered on 10:01; Admin Dose 300 MG; Start 09/12/16 at 09:00 Fluconazole (Diflucan) 100 mg DAILY GTB Last administered on 09/16/16 10:02; Admin Dose 100 MG; Start 09/12/16 at 09:00 Fluoxetine HCl (Prozac) 20 mg DAILY GTB Last administered on 09/16/16 10:02; Admin Dose 20 MG; Start 09/12/16 at 10:00 Lactobacillus Acidoph/Bulgaricus (Floranex) 1 tab TID GTB Last administered on 09/16/16 13:00; Admin Dose 1 TAB; Start 09/12/16 at 09:00 Metoprolol Tartrate (Lopressor) 12.5 mg BID GTB Last administered on at 20:59; Admin Dose 12.5 MG; Start 09/12/16 at 09:00 Pregabalin (Lyrica) 50 mg TID GTB Last administered on 09/16/16 15:03; Admin Dose 50 MG; Start 09/12/16 at 09:00 Pyridoxine HCl (Vitamin B6) 100 mg DAILY GTB Last administered on 09/16/16 10: 02; Admin Dose 100 MG; Start 09/12/16 at 09:00 Vitamin E (Vitamin E) 400 units DAILY GTB Last administered on 09/16/16 10:03; Admin Dose 400 UNITS; Start 09/12/16 at 10:00 Aspirin (Aspirin) 81 mg DAILY GTB Last administered on 09/16/16 09:00; Admin Dose 81 MG; Start 09/12/16 at 09:00 Acetaminophen (Tylenol Liquid) 650 mg Q6H PRN GTB PAIN 1-3 OR TEMP; Start at 08:30 Acetaminophen/ Hydrocodone Bitart ([place] (5/325)) 1 tab Q6H PRN GTB MODERATE PAIN LEVEL 4-6; Start 09/12/16 at 11:30 Acetaminophen/ Hydrocodone Bitart ([place] (5/325)) 2 tab Q6H PRN GTB MODERATE PAIN LEVEL 4-6; Start 09/12/16 at 13:00 Lorazepam (Ativan) 1 mg Q6 PRN GTB ANXIETY; Start 09/12/16 at 08:30 Lorazepam (Ativan) 1 mg HS PRN GTB ANXIETY, HELP WITH SLEEP; Start 09/12/16 at 08:30 Simethicone (Mylicon) 80 mg Q6H PRN GTB INTESTINAL SPASMS/CRAMPING; Start at 11:30 Zolpidem Tartrate (Ambien) 10 mg HS PRN GTB INSOMNIA; Start 09/12/16 at 08:30 Docusate Sodium 100 mg 100 mg Q12 PRN GTB CONSTIPATION; Start 09/12/16 at 08: 30 Propofol 100 ml @ 3.915 mls/ hr TITRATE PRN IV maintain rass -2 to -3 Last administered on 09/16/16t 12:53; Admin Dose 7.83 MLS/HR; Start 09/13/16 at 19:30 Vancomycin HCl/ Sodium Chloride (Vancocin/NS) 500 ml @ 125 mls/hr Q72H IVPB Last administered on 09/15/16at 15:00; Admin Dose 125 MLS/HR; Start 09/15/16 at 12:00 Insulin Aspart (Novolog Insulin Pen) NOVOLOG *MILD* ALGORI... Q6 SC ; Start 09/16 at 12:00 Dimethicone (Blistex Lip [place]) 1 applic Q2H PRN TOP CHAPPED LIPS; Start at 16:30 ALONSO MARTINEZ MD Sep 16, 2016 16:33
[2016-09-16] MEDS: COLISTIMETHATE 100 MG in SOD CHLORIDE 0.9% 100 ML IVPB SCH (16:49)
[2016-09-16 17:53] LABS: IRON 36 ug/dl (35-150)
[2016-09-16 18:02] LABS: TOTAL IRON BINDING CAPACITY 225 ug/dl (241-421)
--- NOTE | 2016-09-16 19:18 | RADRPT ---
PROCEDURE: XR Chest. CLINICAL INDICATION: Pneumonia, CHF TECHNIQUE: Single frontal chest x-ray. COMPARISON: 09/15/2016 FINDINGS: Endotracheal tube, nasogastric tube, and right-sided central venous catheter remain in place. Moder ate pulmonary vascular congestion/edema is again noted, grossly stable. No pneumothorax is identifi ed. Hazy bibasilar pulmonary opacities are also grossly stable, likely atelectasis and/or mild pleu ral effusions. There is stable mild cardiomegaly. The osseous structures are remarkable for degene rative spondylosis of the spine. IMPRESSION: 1. Lines and tubes remain in place. 2. Stable mild cardiomegaly and moderate pulmonary vascular congestion/edema. 3. Stable bibasilar atelectasis and/or mild pleural effusions. 4. No gross interval change. RPTAT: QQ .Rohith Arechiga MD, MD Date Time Electronically viewed and signed by .Rohith Arechiga MD, on 09/16/2016 11:00 .R/
[2016-09-16] MEDS: ATORVASTATIN 10 MG TAB GTB SCH (20:39)
[2016-09-16] MEDS: INSULIN GLARGINE [LANtus] 3 ML PEN SC SCH (20:54)
[2016-09-17] VITALS (74 sets, daily range): BP systolic 78–116; BP diastolic 35–87; PULSE 50–78; RESP 15–26
[2016-09-17] MEDS: ALBUTEROL HFA 8 GM INHALER INH SCH ×6 (01:56→21:24)
[2016-09-17] MEDS: IPRATROPIUM (HFA) 12.9 GM INHALER INH SCH ×6 (01:56→21:24)
[2016-09-17] MEDS: PROPOFOL 100 ML IV PRN ×2 (02:04→13:42)
[2016-09-17] MEDS: morphine 2 MG INJ IV PRN (02:04)
[2016-09-17 05:20] LABS: BASOPHILS % 0.1 % (0.0-2.0); EOSINOPHILS # 0.6 10^3/ul (0.0-0.5); EOSINOPHILS % 7.3 % (0.0-7.0); HEMOGLOBIN 8.7 g/dl (14.0-18.0); LYMPHOCYTES # 0.9 10^3/ul (0.8-2.9); MEAN CORPUSCULAR HEMOGLOBIN 24.9 pg (29.0-33.0); MEAN CORPUSCULAR HGB CONC 32.1 g/dl (32.0-37.0); MEAN CORPUSCULAR VOLUME 77.4 fl (82.0-101.0); MEAN PLATELET VOLUME 9.1 fl (7.4-10.4); MONOCYTE # 0.7 10^3/ul (0.3-0.9); MONOCYTES % 9.5 % (0.0-11.0); NEUTROPHIL # 5.4 10^3/ul (1.6-7.5); NEUTROPHILS % 71.1 % (39.0-77.0); PLATELET COUNT 265 10^3/UL (140-440); RED BLOOD COUNT 3.49 10^6/ul (4.70-6.10); RED CELL DISTRIBUTION WIDTH 20.8 % (11.5-14.5); UNCORRECTED WBC 7.5 10^3/ul (4.8-10.8); WHITE BLOOD COUNT 7.5 10^3/ul (4.8-10.8)
[2016-09-17 05:36] LABS: CONDITION 1; LH ANALYZER COMMENTS 1
[2016-09-17 05:44] LABS: MAGNESIUM 2.4 mg/dl (1.7-2.5); PHOSPHORUS 4.3 mg/dl (2.5-4.9)
[2016-09-17 05:48] LABS: POTASSIUM 3.8 mmol/L (3.5-5.1)
[2016-09-17 05:51] LABS: CALCIUM 7.9 mg/dl (8.4-10.2); CREATININE 2.83 mg/dl (0.61-1.24)
[2016-09-17] MEDS: INSULIN ASPART [NOVOLOG] 3 ML PEN SC SCH ×5 (06:00→23:41)
[2016-09-17] MEDS: HEPARIN 5,000 UNIT/0.5 ML SYG SC SCH ×3 (06:24→21:21)
--- NOTE | 2016-09-17 08:12 | RADRPT ---
PROCEDURE: XR Chest. CLINICAL INDICATION: Shortness of breath. TECHNIQUE: Single frontal view. COMPARISON: 09/16/2016. FINDINGS: The endotracheal tube, nasogastric tube, right arm PICC line, and right internal jugular vein tunnel ed dialysis catheter remain in satisfactory position. Pulmonary edema is slightly worse than seen p reviously. The heart is enlarged. There is a small right pleural effusion. There is no pneumothorax. IMPRESSION: 1. Slightly worse appearance of the lungs. 2. Cardiomegaly. RPTAT: QQ .Aldo Ramirez MD, MD Date Time Electronically viewed and signed by .Aldo Ramirez MD, MD on 09/17/2016 08:12 .R/
[2016-09-17] MEDS: PYRIDOXINE 50 MG TAB GTB SCH (09:09)
[2016-09-17] MEDS: ALLOPURINOL 100 MG TAB GTB SCH (09:10)
[2016-09-17] MEDS: ASPIRIN 81 MG TAB GTB SCH (09:10)
[2016-09-17] MEDS: FAMOTIDINE 20 MG TAB GTB SCH (09:10)
[2016-09-17] MEDS: CHOLECALCIFEROL 1,000 UNIT TAB GTB SCH (09:10)
[2016-09-17] MEDS: CALCIUM CARBONATE 500 MG CHEW TAB GTB SCH ×3 (09:10→18:07)
[2016-09-17] MEDS: VITAMIN E 400 UNITS CAP GTB SCH (09:10)
[2016-09-17] MEDS: FERROUS SULFATE 60 MG/ML 5ML CUP GTB SCH ×2 (09:10→21:15)
[2016-09-17] MEDS: ACETYLCYSTEINE 600 MG CAP GTB SCH ×2 (09:10→21:15)
[2016-09-17] MEDS: LACTOBACILLUS CHEW TAB GTB SCH ×3 (09:10→21:16)
[2016-09-17] MEDS: ASCORBIC ACID 500 MG TAB GTB SCH (09:10)
[2016-09-17] MEDS: METOPROLOL 25 MG TAB GTB SCH ×2 (09:11→21:16)
[2016-09-17] MEDS: SODIUM HYPOCHLORITE 0.125% 473 ML BTL IRR SCH (09:13)
[2016-09-17] MEDS: COLISTIMETHATE (25 MG/ML INHAL SYG) NEB SCH ×2 (09:17→21:24)
[2016-09-17] MEDS: FLUOXETINE 20 MG CAP GTB SCH (09:18)
[2016-09-17] MEDS: FISH OIL 1,000 MG CAP PO SCH (09:18)
[2016-09-17] MEDS: PREGABALIN 25 MG CAP GTB SCH (09:18)
[2016-09-17] MEDS: FLUCONAZOLE 100 MG TAB GTB SCH (09:18)
--- NOTE | 2016-09-17 09:57 | PN ---
Date/Time of Note Date/Time of Note DATE: 09/17/16 TIME: 09:50 Assessment/Plan VTE Prophylaxis VTE Prophylaxis Intervention: heparin Lines/Catheters IV Catheter Type (from [facility]): PICC Line Central line still needed: Yes Urinary Cath still in place: Yes Reason Cath still needed: other (indicate) (monitor I&O) Assessment/Plan Chief Complaint/Hosp Course Assessment and plan 1. Left great toe osteomyelitis. Patient is status post evaluation by vascular consult. Podiatry following for left foot wound. Continue with antibiotics per ID. 2. Acute on chronic respiratory failure, hypoxic and hypercapnic. S/P intubation on 09/06/2016 because of worsening respiratory distress. Still with pulmonary congestion. Continue on dialysis. Pulmonology following. Provide with bronchodilators 3. Ventilator associated pneumonia. Sputum culture positive for Acinetobacter baumannii. Continue aspiration precautions. Antibiotics per ID 4. Pulmonary hypertension. Continue supplemental oxygen. 5. Acute on chronic kidney disease. The patient was newly started on hemodialysis. Nephrology following. Monitor renal panel will adjust as needed 6. Congestive heart failure exacerbation. Acute on chronic diastolic dysfunction. Continue hemodialysis as per nephrology. 7. Type 2 diabetes mellitus. Hemoglobin A1c 5.8. Continue sliding scale insulin. 8. Essential hypertension. Continue antihypertensives. 9. Atrial fibrillation. Rate controlled. Cardiology following. Therapeutic anticoagulation will be deferred to cardiology. Of note remains on heparin 10. Dyslipidemia. Continue statins. 11. Gout. Continue allopurinol. 12. History of Major depression. We'll continue Lyrica once able to tolerate oral intake 13. Morbid obesity with BMI of 42.5 kg/meter squared. 14. Fluid, electrolytes, and nutrition. Continue NGT feedings. 15. Deep vein thrombosis prophylaxis. Subcutaneous heparin. 16. Gastrointestinal prophylaxis. Histamine 2 blockers. Disposition and plan: Still noted with pulmonary congestion. Continue on dialysis. Assessed for ability for vent liberation Discussed plan of care with Problems: Subjective 24 Hr Interval Summary Free Text/Dictation Remains intubated and sedated. Seen on FiO2 40%. No acute distress noted Exam/Review of Systems Vital Signs Vitals Vital Signs Date Time Temp Pulse Resp B/P Pulse Ox O2 Delivery O2 Flow Rate FiO2 09/17/16 08:00 98.3 63 18 104/69 100 Mechanical Ventilator 09/17/16 08:00 40 Intake and Output 09/16/16 09/16/1617 15:00 23:00 07:00 Intake Total 1091.70 ml 654.3 ml 412.4 ml Output Total 3545 ml 25 ml 30 ml Balance -2453.30 ml 629.3 ml 382.4 ml Exam General: Obese, remains intubated and sedated Eyes: pupils equal round, Anicteric sclera Neck: Supple nontender, no JVD Cardiac: Regular rate. Slight murmur auscultated Pulmonary: Rales auscultated bilaterally GI: Obese, bowel sounds active Extremities: Bilateral lower extremity edema Skin: Surgical site of lower extremity clean dry and intact Neurologic: Intubated and sedated Results Result Diagram: 09/17/16 0335 09/17/16 0335 Results 24 hrs Laboratory Tests Test 09/16/16 12:27 09/16/16 17:10 09/16/16 19:57 09/16/16 20:51 Bedside Glucose 129 135 112 Iron Level 36 Percent Iron Saturation 16 L Total Iron Binding Capacity 225 L Test 09/16/16 23:56 09/17/16 03:35 09/17/16 06:15 09/17/16 09:08 Bedside Glucose 116 108 96 Anion Gap 16 Basophils # 0.0 Basophils % 0.1 Blood Morphology Comment Blood Urea Nitrogen 55 H Calcium Level 7.9 L Carbon Dioxide Level 28 Chloride Level 97 Creatinine 2.83 H Eosinophils # 0.6 H Eosinophils % 7.3 H Glucose Level 95 Hematocrit 27.0 L Hemoglobin 8.7 L Lymphocytes # 0.9 Lymphocytes % 12.0 L Magnesium Level 2.4 Mean Corpuscular Hemoglobin 24.9 L Mean Corpuscular Hemoglobin Concent 32.1 Mean Corpuscular Volume 77.4 L Mean Platelet Volume 9.1 Monocytes # 0.7 Monocytes % 9.5 Neutrophils # 5.4 Neutrophils % 71.1 Nucleated Red Blood Cells # 0.0 Nucleated Red Blood Cells % 0.0 Phosphorus Level 4.3 Platelet Count 265 Potassium Level 3.8 Red Blood Count 3.49 L Red Cell Distribution Width 20.8 H Sodium Level 137 White Blood Count 7.5 Medications Medications Current Medications Morphine Sulfate (morphine) 2 mg Q4H PRN IV SEVERE PAIN LEVEL 7-10 Last administered on 09/17/16t 02:04; Admin Dose 2 MG; Start 08/13/16 at 17:30 Fish Oil (Fish Oil) 1,000 mg DAILY PO Last administered on 09/17/16 09:18; Admin Dose 1,000 MG; Start 08/14/16 at 09:00 Miscellaneous Information 1 ea NOTE XX ; Start 08/13/16 at 18:00 Glucose (Glutose) 15 gm Q15M PRN PO DECREASED GLUCOSE; Start 08/13/16 at 18:00 Glucose (Glutose) 22.5 gm Q15M PRN PO DECREASED GLUCOSE; Start 08/13/16 at 18: 00 Dextrose (D50w Syringe) 25 ml Q15M PRN IV DECREASED GLUCOSE Last administered on 09/10/16at 09:18; Admin Dose 25 ML; Start 08/13/16 at 18:00 Dextrose (D50w Syringe) 50 ml Q15M PRN IV DECREASED GLUCOSE; Start 08/13/16 at 18:00 Glucagon (Glucagen) 1 mg Q15M PRN IM DECREASED GLUCOSE; Start 08/13/16 at 18: 00 Glucose (Glutose) 15 gm Q15M PRN BUCCAL DECREASED GLUCOSE; Start 08/13/16 at 18:00 Sodium Hypochlorite (Dakin'S (1/4 Strength)) 1 applic DAILY IRR Last administered on 09/17/16 09:13; Admin Dose 1 APPLIC; Start 08/13/16 at 20:00 IV Flush (NS 10 ml) 10 ml PRN PRN IV IV PTOTOCOL; Start 08/14/16 at 17:00 Ondansetron HCl (Zofran Inj) 4 mg Q4H PRN IV NAUSEA AND/OR VOMITING; Start 08/16/16 at 12:30 Phenol 1 lozenge 1 lozenge Q1H PRN MT DRY MOUTH Last administered on 08/20/16at 21:28; Admin Dose 1 LOZENGE; Start 08/20/16 at 20:30 Norepinephrine/ Dextrose (Levophed/D5W) 500 ml @ 1.87 mls/hr TITRATE IV ; Start 09/09/16 at 08:00 Lorazepam (Ativan) 2 mg Q4H PRN IV anxiety; Start 09/09/16 at 10:30 Heparin Sodium (Porcine) (Heparin (5000 Units/0.5 ml)) 5,000 unit Q8 SC Last administered on 09/17/16 06:24; Admin Dose 5,000 UNIT; Start 09/09/16 at 22:00 Insulin Glargine 10 unit 10 unit HS SC Last administered on 09/16/16 20:54; Admin Dose 10 UNIT; Start 09/10/16 at 22:00 Colistimethate Sodium/Sodium Chloride (Coly-Mycin/NS) 100 ml @ 50 mls/hr Q24H IVPB Last administered on 09/16/16 16:49; Admin Dose 50 MLS/HR; Start at 16:00 Acetylcysteine (Nac) 600 mg BID GTB Last administered on 09/17/16 09:10; Admin Dose 600 MG; Start 09/12/16 at 09:00 Allopurinol (Zyloprim) 100 mg DAILY GTB Last administered on 09/17/16 09:10; Admin Dose 100 MG; Start 09/12/16 at 09:00 Ascorbic Acid (Vitamin C) 500 mg DAILY GTB Last administered on 09/17/16 09:10 ; Admin Dose 500 MG; Start 09/12/16 at 09:00 Atorvastatin Calcium (Lipitor) 10 mg QHS GTB Last administered on 09/16/16 20: 39; Admin Dose 10 MG; Start 09/12/16 at 21:00 Cholecalciferol (Vitamin D) 1,000 unit DAILY GTB Last administered on 09/17/16 09:10; Admin Dose 1,000 UNIT; Start 09/12/16 at 09:00 Diphenhydramine HCl (Benadryl) 25 mg Q6H PRN GTB ITCHING; Start 09/12/16 at 08 :30 Famotidine (Pepcid) 20 mg DAILY GTB Last administered on 09/17/16 09:10; Admin Dose 20 MG; Start 09/12/16 at 09:00 Ferrous Sulfate (Feosol Liquid Cup) 300 mg BID GTB Last administered on 09:10; Admin Dose 300 MG; Start 09/12/16 at 09:00 Fluconazole (Diflucan) 100 mg DAILY GTB Last administered on 09/17/16 09:18; Admin Dose 100 MG; Start 09/12/16 at 09:00 Fluoxetine HCl (Prozac) 20 mg DAILY GTB Last administered on 09/17/16 09:18; Admin Dose 20 MG; Start 09/12/16 at 10:00 Lactobacillus Acidoph/Bulgaricus (Floranex) 1 tab TID GTB Last administered on 09/17/16 09:10; Admin Dose 1 TAB; Start 09/12/16 at 09:00 Metoprolol Tartrate (Lopressor) 12.5 mg BID GTB Last administered on 09/17/16 09:11; Admin Dose 12.5 MG; Start 09/12/16 at 09:00 Pregabalin (Lyrica) 50 mg TID GTB Last administered on 09/17/16 09:18; Admin Dose 50 MG; Start 09/12/16 at 09:00 Pyridoxine HCl (Vitamin B6) 100 mg DAILY GTB Last administered on 09/17/16 09: 09; Admin Dose 100 MG; Start 09/12/16 at 09:00 Vitamin E (Vitamin E) 400 units DAILY GTB Last administered on 09/17/16 09:10; Admin Dose 400 UNITS; Start 09/12/16 at 10:00 Aspirin (Aspirin) 81 mg DAILY GTB Last administered on 09/17/16 09:10; Admin Dose 81 MG; Start 09/12/16 at 09:00 Acetaminophen (Tylenol Liquid) 650 mg Q6H PRN GTB PAIN 1-3 OR TEMP; Start at 08:30 Acetaminophen/ Hydrocodone Bitart ([place] (5/325)) 1 tab Q6H PRN GTB MODERATE PAIN LEVEL 4-6; Start 09/12/16 at 11:30 Acetaminophen/ Hydrocodone Bitart ([place] (5/325)) 2 tab Q6H PRN GTB MODERATE PAIN LEVEL 4-6; Start 09/12/16 at 13:00 Lorazepam (Ativan) 1 mg Q6 PRN GTB ANXIETY; Start 09/12/16 at 08:30 Lorazepam (Ativan) 1 mg HS PRN GTB ANXIETY, HELP WITH SLEEP; Start 09/12/16 at 08:30 Simethicone (Mylicon) 80 mg Q6H PRN GTB INTESTINAL SPASMS/CRAMPING; Start at 11:30 Zolpidem Tartrate (Ambien) 10 mg HS PRN GTB INSOMNIA; Start 09/12/16 at 08:30 Docusate Sodium 100 mg 100 mg Q12 PRN GTB CONSTIPATION; Start 09/12/16 at 08: 30 Propofol 100 ml @ 3.915 mls/ hr TITRATE PRN IV maintain rass -2 to -3 Last administered on 09/17/16 02:04; Admin Dose 8.5 MLS/HR; Start 09/13/16 at 19:30 Vancomycin HCl/ Sodium Chloride (Vancocin/NS) 500 ml @ 125 mls/hr Q72H IVPB Last administered on 09/15/16at 15:00; Admin Dose 125 MLS/HR; Start 09/15/16 at 12:00 Insulin Aspart (Novolog Insulin Pen) NOVOLOG *MILD* ALGORI... Q6 SC ; Start 09/16 at 12:00 Dimethicone (Blistex Lip [place]) 1 applic Q2H PRN TOP CHAPPED LIPS; Start at 16:30 GIUSEPPE BREAUX Sep 17, 2016 09:57
--- NOTE | 2016-09-17 11:14 | CONS ---
Date/Time of Note Date/Time of Note DATE: 09/17/16 TIME: 11:13 Consult Date/Type/Reason Admit Date/Time Aug 13, 2016 at 16:30 Initial Consult Date 08/13/16 Type of Consultation: pulmonary Ordering Provider: KELLEN MEDINA MD Subjective Patient stable this morning awake alert and communicating via writing Remains hemodynamically stable Objective Vital Signs Date Time Temp Pulse Resp B/P Pulse Ox O2 Delivery O2 Flow Rate FiO2 09/17/16 10:30 53 18 82/53 96 09/17/16 10:00 Mechanical Ventilator 09/17/16 08:00 98.3 09/17/16 08:00 40 Intake and Output 09/16/16 09/16/16 09/17/16 15:00 23:00 07:00 Intake Total 1091.70 ml 654.3 ml 412.4 ml Output Total 3545 ml 25 ml 30 ml Balance -2453.30 ml 629.3 ml 382.4 ml PHYSICAL EXAMINATION GENERAL: Elderly gentleman, intubated on mechanical ventilation, opens eyes comfortable generalized weakness VITAL SIGNS: see below. HEENT: Pupils equal, round, and reactive to light. CARDIAC: S1, S2, tachycardia. CHEST: Diminished air entry bilaterally. ABDOMEN: Mildly distended. No bowel sounds. EXTREMITIES: No cyanosis, clubbing, edema +2 NEUROLOGIC: No focal deficits. Results/Medications Result Diagram: 09/17/16 0335 09/17/16 0335 Results 24 hrs Laboratory Tests Test 09/16/16 12:27 09/16/16 17:10 09/16/16 19:57 09/16/16 20:51 Bedside Glucose 129 135 112 Iron Level 36 Percent Iron Saturation 16 L Total Iron Binding Capacity 225 L Test 09/16/16 23:56 09/17/16 02:20 09/17/16 03:35 09/17/16 06:15 Bedside Glucose 116 108 Stool Occult Blood NEGATIVE Anion Gap 16 Basophils # 0.0 Basophils % 0.1 Blood Morphology Comment Blood Urea Nitrogen 55 H Calcium Level 7.9 L Carbon Dioxide Level 28 Chloride Level 97 Creatinine 2.83 H Eosinophils # 0.6 H Eosinophils % 7.3 H Glucose Level 95 Hematocrit 27.0 L Hemoglobin 8.7 L Lymphocytes # 0.9 Lymphocytes % 12.0 L Magnesium Level 2.4 Mean Corpuscular Hemoglobin 24.9 L Mean Corpuscular Hemoglobin Concent 32.1 Mean Corpuscular Volume 77.4 L Mean Platelet Volume 9.1 Monocytes # 0.7 Monocytes % 9.5 Neutrophils # 5.4 Neutrophils % 71.1 Nucleated Red Blood Cells # 0.0 Nucleated Red Blood Cells % 0.0 Phosphorus Level 4.3 Platelet Count 265 Potassium Level 3.8 Red Blood Count 3.49 L Red Cell Distribution Width 20.8 H Sodium Level 137 White Blood Count 7.5 Test 09/17/16 09:08 Bedside Glucose 96 Medications Current Medications Morphine Sulfate (morphine) 2 mg Q4H PRN IV SEVERE PAIN LEVEL 7-10 Last administered on 09/17/16 02:04; Admin Dose 2 MG; Start 08/13/16 at 17:30 Fish Oil (Fish Oil) 1,000 mg DAILY PO Last administered on 09/17/16 09:18; Admin Dose 1,000 MG; Start 08/14/16 at 09:00 Miscellaneous Information 1 ea NOTE XX ; Start 08/13/16 at 18:00 Glucose (Glutose) 15 gm Q15M PRN PO DECREASED GLUCOSE; Start 08/13/16 at 18:00 Glucose (Glutose) 22.5 gm Q15M PRN PO DECREASED GLUCOSE; Start 08/13/16 at 18: 00 Dextrose (D50w Syringe) 25 ml Q15M PRN IV DECREASED GLUCOSE Last administered on 09/10/16at 09:18; Admin Dose 25 ML; Start 08/13/16 at 18:00 Dextrose (D50w Syringe) 50 ml Q15M PRN IV DECREASED GLUCOSE; Start 08/13/16 at 18:00 Glucagon (Glucagen) 1 mg Q15M PRN IM DECREASED GLUCOSE; Start 08/13/16 at 18: 00 Glucose (Glutose) 15 gm Q15M PRN BUCCAL DECREASED GLUCOSE; Start 08/13/16 at 18:00 Sodium Hypochlorite (Dakin'S (1/4 Strength)) 1 applic DAILY IRR Last administered on 09/17/16 09:13; Admin Dose 1 APPLIC; Start 08/13/16 at 20:00 IV Flush (NS 10 ml) 10 ml PRN PRN IV IV PTOTOCOL; Start 08/14/16 at 17:00 Ondansetron HCl (Zofran Inj) 4 mg Q4H PRN IV NAUSEA AND/OR VOMITING; Start 08/16/16 at 12:30 Phenol 1 lozenge 1 lozenge Q1H PRN MT DRY MOUTH Last administered on 08/20/16at 21:28; Admin Dose 1 LOZENGE; Start 08/20/16 at 20:30 Norepinephrine/ Dextrose (Levophed/D5W) 500 ml @ 1.87 mls/hr TITRATE IV ; Start 09/09/16 at 08:00 Lorazepam (Ativan) 2 mg Q4H PRN IV anxiety; Start 09/09/16 at 10:30 Heparin Sodium (Porcine) (Heparin (5000 Units/0.5 ml)) 5,000 unit Q8 SC Last administered on 09/17/16 06:24; Admin Dose 5,000 UNIT; Start 09/09/16 at 22:00 Insulin Glargine 10 unit 10 unit HS SC Last administered on 09/16/16 20:54; Admin Dose 10 UNIT; Start 09/10/16 at 22:00 Colistimethate Sodium/Sodium Chloride (Coly-Mycin/NS) 100 ml @ 50 mls/hr Q24H IVPB Last administered on 09/16/16 16:49; Admin Dose 50 MLS/HR; Start at 16:00 Acetylcysteine (Nac) 600 mg BID GTB Last administered on 09/17/16 09:10; Admin Dose 600 MG; Start 09/12/16 at 09:00 Allopurinol (Zyloprim) 100 mg DAILY GTB Last administered on 09/17/16 09:10; Admin Dose 100 MG; Start 09/12/16 at 09:00 Ascorbic Acid (Vitamin C) 500 mg DAILY GTB Last administered on 09/17/16 09:10 ; Admin Dose 500 MG; Start 09/12/16 at 09:00 Atorvastatin Calcium (Lipitor) 10 mg QHS GTB Last administered on 09/16/16 20: 39; Admin Dose 10 MG; Start 09/12/16 at 21:00 Cholecalciferol (Vitamin D) 1,000 unit DAILY GTB Last administered on 09/17/16 09:10; Admin Dose 1,000 UNIT; Start 09/12/16 at 09:00 Diphenhydramine HCl (Benadryl) 25 mg Q6H PRN GTB ITCHING; Start 09/12/16 at 08 :30 Famotidine (Pepcid) 20 mg DAILY GTB Last administered on 09/17/16 09:10; Admin Dose 20 MG; Start 09/12/16 at 09:00 Ferrous Sulfate (Feosol Liquid Cup) 300 mg BID GTB Last administered on 09:10; Admin Dose 300 MG; Start 09/12/16 at 09:00 Fluconazole (Diflucan) 100 mg DAILY GTB Last administered on 09/17/16 09:18; Admin Dose 100 MG; Start 09/12/16 at 09:00 Fluoxetine HCl (Prozac) 20 mg DAILY GTB Last administered on 09/17/16 09:18; Admin Dose 20 MG; Start 09/12/16 at 10:00 Lactobacillus Acidoph/Bulgaricus (Floranex) 1 tab TID GTB Last administered on 09/17/16 09:10; Admin Dose 1 TAB; Start 09/12/16 at 09:00 Metoprolol Tartrate (Lopressor) 12.5 mg BID GTB Last administered on 09/17/16 09:11; Admin Dose 12.5 MG; Start 09/12/16 at 09:00 Pyridoxine HCl (Vitamin B6) 100 mg DAILY GTB Last administered on 09/17/16 09: 09; Admin Dose 100 MG; Start 09/12/16 at 09:00 Vitamin E (Vitamin E) 400 units DAILY GTB Last administered on 09/17/16 09:10; Admin Dose 400 UNITS; Start 09/12/16 at 10:00 Aspirin (Aspirin) 81 mg DAILY GTB Last administered on 09/17/16 09:10; Admin Dose 81 MG; Start 09/12/16 at 09:00 Acetaminophen (Tylenol Liquid) 650 mg Q6H PRN GTB PAIN 1-3 OR TEMP; Start at 08:30 Acetaminophen/ Hydrocodone Bitart ([place] (5/325)) 1 tab Q6H PRN GTB MODERATE PAIN LEVEL 4-6; Start 09/12/16 at 11:30 Acetaminophen/ Hydrocodone Bitart ([place] (5/325)) 2 tab Q6H PRN GTB MODERATE PAIN LEVEL 4-6; Start 09/12/16 at 13:00 Lorazepam (Ativan) 1 mg Q6 PRN GTB ANXIETY; Start 09/12/16 at 08:30 Lorazepam (Ativan) 1 mg HS PRN GTB ANXIETY, HELP WITH SLEEP; Start 09/12/16 at 08:30 Simethicone (Mylicon) 80 mg Q6H PRN GTB INTESTINAL SPASMS/CRAMPING; Start at 11:30 Zolpidem Tartrate (Ambien) 10 mg HS PRN GTB INSOMNIA; Start 09/12/16 at 08:30 Docusate Sodium 100 mg 100 mg Q12 PRN GTB CONSTIPATION; Start 09/12/16 at 08: 30 Propofol 100 ml @ 3.915 mls/ hr TITRATE PRN IV maintain rass -2 to -3 Last administered on 09/17/16 02:04; Admin Dose 8.5 MLS/HR; Start 09/13/16 at 19:30 Vancomycin HCl/ Sodium Chloride (Vancocin/NS) 500 ml @ 125 mls/hr Q72H IVPB Last administered on 09/15/16at 15:00; Admin Dose 125 MLS/HR; Start 09/15/16 at 12:00 Insulin Aspart (Novolog Insulin Pen) NOVOLOG *MILD* ALGORI... Q6 SC ; Start 09/16 at 12:00 Dimethicone (Blistex Lip [place]) 1 applic Q2H PRN TOP CHAPPED LIPS; Start at 16:30 Assessment/Plan Chief Complaint/Hosp Course Assessment and plan 1. . Acute on chronic respiratory failure, hypoxic and hypercapnic. S/P intubation on 09/06/2016 because of worsening respiratory distress. Continue mechanical ventilation not for weaning today. Significant pulmonary edema with underlying infiltrates. Repeat CPAP trial this morning 2. Bilateral pneumonia with hypoxemic respiratory failure. Continue infectious disease recommendations 3..Pulmonary hypertension. Continue supplemental oxygen. 4. End-stage renal failure now on hemodialysis. Evidence of primary edema will require continued volume removal 5. Dysphagia continue tube feeding 6. Atrial fibrillation currently rate controlled Disposition continue current level of care Problems: EDNA BUSTILLO MD, [facility] Sep 17, 2016 11:14
--- NOTE | 2016-09-17 12:06 | CONS ---
Date/Time of Note Date/Time of Note DATE: 09/17/16 TIME: 12:05 Assessment/Plan Assessment/Plan Chief Complaint/Hosp Course ID PROGRESS NOTE 24H INTERVAL SUMMARY * No fevers, WBC normal - noncommunicative on the Vent, failed weaning attempts * CXR with worsening pulmonary edema * ABX: Colistin IV + Vanco IV PHYSICAL EXAMINATION: GENERAL: 60 yo Morbid Obese M -> non-communicative on the Vent HEENT: Unremarkable NECK: Supple, trachea midline. CHEST: Rise symmetrical, course BS ABDOMEN: Soft, EXTREMITIES: Bilateral Patrick wraps. ID ASSESSMENT: 60 yo super morbid obese M [BMI >42] admit with: 1. Bilateral lower extremities acute on chronic cellulitis with chronic venous stasis and left Great toe osteomyelitis. 2. PAD=> s/p angiogram 3. Systemic inflammatory response syndrome 2 to above. * Resolving Septicemia=>(+)KENAN 4. Hypoxic respiratory failure 5. HCAP =>Acinetobacter baumannii, on colistin day #5 6. Atrial fibrillation, chronic. 7. Acute renal failure/CKD => HD dependent (-)MRSA Nares CURRENT ABX: Vanco IV + Colistin IV + Colistin INH added for moderate secretions ID PLAN: Continue current ABX + Colistin IV for ACBA PNA ADDED COLISTIN INH = moderate secretions w/failed weaning Weaning per pulmonary . . Problems: Consultation Date/Type/Reason Admit Date/Time Aug 13, 2016 at 16:30 Initial Consult Date 08/13/16 Type of Consultation: ID Referring Provider: KELLEN MEDINA MD Exam/Review of Systems Vital Signs Vitals Vital Signs Date Time Temp Pulse Resp B/P Pulse Ox O2 Delivery O2 Flow Rate FiO2 09/17/16 10:30 53 18 82/53 96 09/17/16 10:00 Mechanical Ventilator 09/17/16 08:00 98.3 09/17/16 08:00 40 Intake and Output 09/16/16 09/16/16 09/17/16 15:00 23:00 07:00 Intake Total 1091.70 ml 654.3 ml 412.4 ml Output Total 3545 ml 25 ml 30 ml Balance -2453.30 ml 629.3 ml 382.4 ml Results Result Diagram: 09/17/16 0335 09/17/16 0335 Results 24 hrs Laboratory Tests Test 09/16/16 12:27 09/16/16 17:10 09/16/16 19:57 09/16/16 20:51 Bedside Glucose 129 135 112 Iron Level 36 Percent Iron Saturation 16 L Total Iron Binding Capacity 225 L Test 09/16/16 23:56 09/17/16 02:20 09/17/16 03:35 09/17/16 06:15 Bedside Glucose 116 108 Stool Occult Blood NEGATIVE Anion Gap 16 Basophils # 0.0 Basophils % 0.1 Blood Morphology Comment Blood Urea Nitrogen 55 H Calcium Level 7.9 L Carbon Dioxide Level 28 Chloride Level 97 Creatinine 2.83 H Eosinophils # 0.6 H Eosinophils % 7.3 H Glucose Level 95 Hematocrit 27.0 L Hemoglobin 8.7 L Lymphocytes # 0.9 Lymphocytes % 12.0 L Magnesium Level 2.4 Mean Corpuscular Hemoglobin 24.9 L Mean Corpuscular Hemoglobin Concent 32.1 Mean Corpuscular Volume 77.4 L Mean Platelet Volume 9.1 Monocytes # 0.7 Monocytes % 9.5 Neutrophils # 5.4 Neutrophils % 71.1 Nucleated Red Blood Cells # 0.0 Nucleated Red Blood Cells % 0.0 Phosphorus Level 4.3 Platelet Count 265 Potassium Level 3.8 Red Blood Count 3.49 L Red Cell Distribution Width 20.8 H Sodium Level 137 White Blood Count 7.5 Test 09/17/16 09:08 Bedside Glucose 96 Medications Medications Current Medications Morphine Sulfate (morphine) 2 mg Q4H PRN IV SEVERE PAIN LEVEL 7-10 Last administered on 09/17/16 02:04; Admin Dose 2 MG; Start 08/13/16 at 17:30 Fish Oil (Fish Oil) 1,000 mg DAILY PO Last administered on 09/17/16 09:18; Admin Dose 1,000 MG; Start 08/14/16 at 09:00 Miscellaneous Information 1 ea NOTE XX ; Start 08/13/16 at 18:00 Glucose (Glutose) 15 gm Q15M PRN PO DECREASED GLUCOSE; Start 08/13/16 at 18:00 Glucose (Glutose) 22.5 gm Q15M PRN PO DECREASED GLUCOSE; Start 08/13/16 at 18: 00 Dextrose (D50w Syringe) 25 ml Q15M PRN IV DECREASED GLUCOSE Last administered on 09/10/16at 09:18; Admin Dose 25 ML; Start 08/13/16 at 18:00 Dextrose (D50w Syringe) 50 ml Q15M PRN IV DECREASED GLUCOSE; Start 08/13/16 at 18:00 Glucagon (Glucagen) 1 mg Q15M PRN IM DECREASED GLUCOSE; Start 08/13/16 at 18: 00 Glucose (Glutose) 15 gm Q15M PRN BUCCAL DECREASED GLUCOSE; Start 08/13/16 at 18:00 Sodium Hypochlorite (Dakin'S (1/4 Strength)) 1 applic DAILY IRR Last administered on 09/17/16 09:13; Admin Dose 1 APPLIC; Start 08/13/16 at 20:00 IV Flush (NS 10 ml) 10 ml PRN PRN IV IV PTOTOCOL; Start 08/14/16 at 17:00 Ondansetron HCl (Zofran Inj) 4 mg Q4H PRN IV NAUSEA AND/OR VOMITING; Start 08/16/16 at 12:30 Phenol 1 lozenge 1 lozenge Q1H PRN MT DRY MOUTH Last administered on 08/20/16at 21:28; Admin Dose 1 LOZENGE; Start 08/20/16 at 20:30 Norepinephrine/ Dextrose (Levophed/D5W) 500 ml @ 1.87 mls/hr TITRATE IV ; Start 09/09/16 at 08:00 Lorazepam (Ativan) 2 mg Q4H PRN IV anxiety; Start 09/09/16 at 10:30 Heparin Sodium (Porcine) (Heparin (5000 Units/0.5 ml)) 5,000 unit Q8 SC Last administered on 09/17/16 06:24; Admin Dose 5,000 UNIT; Start 09/09/16 at 22:00 Insulin Glargine 10 unit 10 unit HS SC Last administered on 09/16/16 20:54; Admin Dose 10 UNIT; Start 09/10/16 at 22:00 Colistimethate Sodium/Sodium Chloride (Coly-Mycin/NS) 100 ml @ 50 mls/hr Q24H IVPB Last administered on 09/16/16 16:49; Admin Dose 50 MLS/HR; Start at 16:00 Acetylcysteine (Nac) 600 mg BID GTB Last administered on 09/17/16 09:10; Admin Dose 600 MG; Start 09/12/16 at 09:00 Allopurinol (Zyloprim) 100 mg DAILY GTB Last administered on 09/17/16 09:10; Admin Dose 100 MG; Start 09/12/16 at 09:00 Ascorbic Acid (Vitamin C) 500 mg DAILY GTB Last administered on 09/17/16 09:10 ; Admin Dose 500 MG; Start 09/12/16 at 09:00 Atorvastatin Calcium (Lipitor) 10 mg QHS GTB Last administered on 09/16/16 20: 39; Admin Dose 10 MG; Start 09/12/16 at 21:00 Cholecalciferol (Vitamin D) 1,000 unit DAILY GTB Last administered on 09/17/16 09:10; Admin Dose 1,000 UNIT; Start 09/12/16 at 09:00 Diphenhydramine HCl (Benadryl) 25 mg Q6H PRN GTB ITCHING; Start 09/12/16 at 08 :30 Famotidine (Pepcid) 20 mg DAILY GTB Last administered on 09/17/16 09:10; Admin Dose 20 MG; Start 09/12/16 at 09:00 Ferrous Sulfate (Feosol Liquid Cup) 300 mg BID GTB Last administered on 09:10; Admin Dose 300 MG; Start 09/12/16 at 09:00 Fluconazole (Diflucan) 100 mg DAILY GTB Last administered on 09/17/16 09:18; Admin Dose 100 MG; Start 09/12/16 at 09:00 Fluoxetine HCl (Prozac) 20 mg DAILY GTB Last administered on 09/17/16 09:18; Admin Dose 20 MG; Start 09/12/16 at 10:00 Lactobacillus Acidoph/Bulgaricus (Floranex) 1 tab TID GTB Last administered on 09/17/16 09:10; Admin Dose 1 TAB; Start 09/12/16 at 09:00 Metoprolol Tartrate (Lopressor) 12.5 mg BID GTB Last administered on 09/17/16 09:11; Admin Dose 12.5 MG; Start 09/12/16 at 09:00 Pyridoxine HCl (Vitamin B6) 100 mg DAILY GTB Last administered on 09/17/16 09: 09; Admin Dose 100 MG; Start 09/12/16 at 09:00 Vitamin E (Vitamin E) 400 units DAILY GTB Last administered on 09/17/16 09:10; Admin Dose 400 UNITS; Start 09/12/16 at 10:00 Aspirin (Aspirin) 81 mg DAILY GTB Last administered on 09/17/16 09:10; Admin Dose 81 MG; Start 09/12/16 at 09:00 Acetaminophen (Tylenol Liquid) 650 mg Q6H PRN GTB PAIN 1-3 OR TEMP; Start at 08:30 Acetaminophen/ Hydrocodone Bitart ([place] (5/325)) 1 tab Q6H PRN GTB MODERATE PAIN LEVEL 4-6; Start 09/12/16 at 11:30 Acetaminophen/ Hydrocodone Bitart ([place] (5/325)) 2 tab Q6H PRN GTB MODERATE PAIN LEVEL 4-6; Start 09/12/16 at 13:00 Lorazepam (Ativan) 1 mg Q6 PRN GTB ANXIETY; Start 09/12/16 at 08:30 Lorazepam (Ativan) 1 mg HS PRN GTB ANXIETY, HELP WITH SLEEP; Start 09/12/16 at 08:30 Simethicone (Mylicon) 80 mg Q6H PRN GTB INTESTINAL SPASMS/CRAMPING; Start at 11:30 Zolpidem Tartrate (Ambien) 10 mg HS PRN GTB INSOMNIA; Start 09/12/16 at 08:30 Docusate Sodium 100 mg 100 mg Q12 PRN GTB CONSTIPATION; Start 09/12/16 at 08: 30 Propofol 100 ml @ 3.915 mls/ hr TITRATE PRN IV maintain rass -2 to -3 Last administered on 09/17/16 02:04; Admin Dose 8.5 MLS/HR; Start 09/13/16 at 19:30 Vancomycin HCl/ Sodium Chloride (Vancocin/NS) 500 ml @ 125 mls/hr Q72H IVPB Last administered on 09/15/16at 15:00; Admin Dose 125 MLS/HR; Start 09/15/16 at 12:00 Insulin Aspart (Novolog Insulin Pen) NOVOLOG *MILD* ALGORI... Q6 SC ; Start 09/16 at 12:00 Dimethicone (Blistex Lip [place]) 1 applic Q2H PRN TOP CHAPPED LIPS; Start at 16:30 JARED SALCEDO NP Sep 17, 2016 12:06
[2016-09-17 13:12] LABS: AADO2 Arterial 174.8 mmHg (7.0-24.0); Allen Test ACCEPTAB; Arterial Base Excess 1.2 mmol/L (-3.0-3); Arterial COHb 0.5 % (0.0-3.0); Arterial Fraction of Oxyhgb 84.6 % (93.0-99.0); Arterial HCO3 27.4 mmol/L (22.0-26.0); Arterial MetHb 0.1 % (0.0-1.5); Arterial Total Hemglobin 10.9 g/dl (12.0-18.0); Blood Gas PS 10; MODE VENT - CPAP
[2016-09-17] MEDS: COLISTIMETHATE 100 MG in SOD CHLORIDE 0.9% 100 ML IVPB SCH (16:44)
--- NOTE | 2016-09-17 18:12 | CONS ---
Date/Time of Note Date/Time of Note DATE: 09/17/16 TIME: 18:02 Assessment/Plan Assessment/Plan Problems: (1) Diabetic foot infection Status: Acute Comment: dressing in place, plans per ID/Podiatry (2) Acute renal injury Status: Acute Comment: Urine vol remains minimal (3) Obesity Status: Chronic (4) Anemia Status: Chronic (5) Hypoxia Status: Chronic Comment: Pt REMAINS ON VENT (6) Fluid overload Status: Chronic Comment: CXRAY STILL SHOWS CHF, WILL NEED HD IN AM AGAIN TO FACILITATE EXTUBATION Consultation Date/Type/Reason Admit Date/Time Aug 13, 2016 at 16:30 Initial Consult Date 08/13/16 Type of Consultation: renal Referring Provider: KELLEN MEDINA MD 24 HR Interval Summary Free Text/Dictation more alert & responsive Constitutional: improved Exam/Review of Systems Vital Signs Vitals Vital Signs Date Time Temp Pulse Resp B/P Pulse Ox O2 Delivery O2 Flow Rate FiO2 09/17/16 17:33 72 20 09/17/16 17:05 100 40 09/17/16 16:30 110/43 09/17/16 16:00 98.3 Mechanical Ventilator Intake and Output 09/16/16 09/16/16 09/17/16 15:00 23:00 07:00 Intake Total 1091.70 ml 654.3 ml 412.4 ml Output Total 3545 ml 25 ml 30 ml Balance -2453.30 ml 629.3 ml 382.4 ml Exam Constitutional: alert, obese Psych: no complaints Head: normocephalic ENMT: nl external ears & nose Respiratory: clear to auscultation Cardiovascular: regular rate and rhythm Gastrointestinal: nl liver, spleen 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: 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 MACHINE BACK TENDER 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 Skin: other (ch channges both lower ext) Additional Comments chemistry stable Results Result Diagram: 09/17/16 0335 09/17/16 0335 Results 24 hrs Laboratory Tests Test 09/16/16 19:57 09/16/16 20:51 09/16/16 23:56 09/17/16 02:20 Bedside Glucose 135 112 116 Stool Occult Blood NEGATIVE Test 09/17/16 03:35 09/17/16 06:15 09/17/16 09:08 09/17/16 12:18 Anion Gap 16 Basophils # 0.0 Basophils % 0.1 Blood Morphology Comment Blood Urea Nitrogen 55 H Calcium Level 7.9 L Carbon Dioxide Level 28 Chloride Level 97 Creatinine 2.83 H Eosinophils # 0.6 H Eosinophils % 7.3 H Glucose Level 95 Hematocrit 27.0 L Hemoglobin 8.7 L Lymphocytes # 0.9 Lymphocytes % 12.0 L Magnesium Level 2.4 Mean Corpuscular Hemoglobin 24.9 L Mean Corpuscular Hemoglobin Concent 32.1 Mean Corpuscular Volume 77.4 L Mean Platelet Volume 9.1 Monocytes # 0.7 Monocytes % 9.5 Neutrophils # 5.4 Neutrophils % 71.1 Nucleated Red Blood Cells # 0.0 Nucleated Red Blood Cells % 0.0 Phosphorus Level 4.3 Platelet Count 265 Potassium Level 3.8 Red Blood Count 3.49 L Red Cell Distribution Width 20.8 H Sodium Level 137 White Blood Count 7.5 Bedside Glucose 108 96 91 Test 09/17/16 12:30 Arterial Blood HCO3 27.4 H Arterial Blood Base Excess 1.2 Arterial Blood Oxygen Saturation 85.1 L Khoi Test ACCEPTAB Arterial Blood Gas Puncture Site Right Radial Arterial Blood Carboxyhemoglobin 0.5 Arterial Blood Date Drawn 09/17/2016 12:40:30 PM Arterial Blood Methemoglobin 0.1 Arterial Blood pCO2 (Temp correct) 50.6 H Arterial Blood pH (Temp corrected) 7.351 Arterial Blood pO2 (Temp corrected) 52.2 *L Blood Gas A-a O2 Differential 174.8 H Blood Gas Actual Respiration Rate 28 Blood Gas Critical Value Read Back RN A LASHAE Blood Gas Low PEEP Setting 5.0 Blood Gas Modality VENT - CPAP Blood Gas Notified Time 09/17/2016 1:12:07 PM Blood Gas Notified Whom AT Blood Gas Pressure Support 10 Blood Gas Specimen Source Blood arterial Blood Gas Temperature 37.0 FiO2 40.0 Oxyhemoglobin Percent 84.6 L Total Hemoglobin 10.9 L Medications Medications Current Medications Morphine Sulfate (morphine) 2 mg Q4H PRN IV SEVERE PAIN LEVEL 7-10 Last administered on 09/17/16 02:04; Admin Dose 2 MG; Start 08/13/16 at 17:30 Fish Oil (Fish Oil) 1,000 mg DAILY PO Last administered on 09/17/16 09:18; Admin Dose 1,000 MG; Start 08/14/16 at 09:00 Miscellaneous Information 1 ea NOTE XX ; Start 08/13/16 at 18:00 Glucose (Glutose) 15 gm Q15M PRN PO DECREASED GLUCOSE; Start 08/13/16 at 18:00 Glucose (Glutose) 22.5 gm Q15M PRN PO DECREASED GLUCOSE; Start 08/13/16 at 18: 00 Dextrose (D50w Syringe) 25 ml Q15M PRN IV DECREASED GLUCOSE Last administered on 09/10/16at 09:18; Admin Dose 25 ML; Start 08/13/16 at 18:00 Dextrose (D50w Syringe) 50 ml Q15M PRN IV DECREASED GLUCOSE; Start 08/13/16 at 18:00 Glucagon (Glucagen) 1 mg Q15M PRN IM DECREASED GLUCOSE; Start 08/13/16 at 18: 00 Glucose (Glutose) 15 gm Q15M PRN BUCCAL DECREASED GLUCOSE; Start 08/13/16 at 18:00 Sodium Hypochlorite (Dakin'S (1/4 Strength)) 1 applic DAILY IRR Last administered on 09/17/16 09:13; Admin Dose 1 APPLIC; Start 08/13/16 at 20:00 IV Flush (NS 10 ml) 10 ml PRN PRN IV IV PTOTOCOL; Start 08/14/16 at 17:00 Ondansetron HCl (Zofran Inj) 4 mg Q4H PRN IV NAUSEA AND/OR VOMITING; Start 08/16/16 at 12:30 Phenol 1 lozenge 1 lozenge Q1H PRN MT DRY MOUTH Last administered on 08/20/16at 21:28; Admin Dose 1 LOZENGE; Start 08/20/16 at 20:30 Norepinephrine/ Dextrose (Levophed/D5W) 500 ml @ 1.87 mls/hr TITRATE IV ; Start 09/09/16 at 08:00 Lorazepam (Ativan) 2 mg Q4H PRN IV anxiety; Start 09/09/16 at 10:30 Heparin Sodium (Porcine) (Heparin (5000 Units/0.5 ml)) 5,000 unit Q8 SC Last administered on 09/17/16 14:18; Admin Dose 5,000 UNIT; Start 09/09/16 at 22:00 Insulin Glargine 10 unit 10 unit HS SC Last administered on 09/16/16 20:54; Admin Dose 10 UNIT; Start 09/10/16 at 22:00 Colistimethate Sodium/Sodium Chloride (Coly-Mycin/NS) 100 ml @ 50 mls/hr Q24H IVPB Last administered on 09/17/16 16:44; Admin Dose 50 MLS/HR; Start at 16:00 Acetylcysteine (Nac) 600 mg BID GTB Last administered on 09/17/16 09:10; Admin Dose 600 MG; Start 09/12/16 at 09:00 Allopurinol (Zyloprim) 100 mg DAILY GTB Last administered on 09/17/16 09:10; Admin Dose 100 MG; Start 09/12/16 at 09:00 Ascorbic Acid (Vitamin C) 500 mg DAILY GTB Last administered on 09/17/16 09:10 ; Admin Dose 500 MG; Start 09/12/16 at 09:00 Atorvastatin Calcium (Lipitor) 10 mg QHS GTB Last administered on 09/16/16 20: 39; Admin Dose 10 MG; Start 09/12/16 at 21:00 Cholecalciferol (Vitamin D) 1,000 unit DAILY GTB Last administered on 09/17/16 09:10; Admin Dose 1,000 UNIT; Start 09/12/16 at 09:00 Diphenhydramine HCl (Benadryl) 25 mg Q6H PRN GTB ITCHING; Start 09/12/16 at 08 :30 Famotidine (Pepcid) 20 mg DAILY GTB Last administered on 09/17/16 09:10; Admin Dose 20 MG; Start 09/12/16 at 09:00 Ferrous Sulfate (Feosol Liquid Cup) 300 mg BID GTB Last administered on 09:10; Admin Dose 300 MG; Start 09/12/16 at 09:00 Fluconazole (Diflucan) 100 mg DAILY GTB Last administered on 09/17/16 09:18; Admin Dose 100 MG; Start 09/12/16 at 09:00 Fluoxetine HCl (Prozac) 20 mg DAILY GTB Last administered on 09/17/16 09:18; Admin Dose 20 MG; Start 09/12/16 at 10:00 Lactobacillus Acidoph/Bulgaricus (Floranex) 1 tab TID GTB Last administered on 09/17/16 13:06; Admin Dose 1 TAB; Start 09/12/16 at 09:00 Metoprolol Tartrate (Lopressor) 12.5 mg BID GTB Last administered on 09/17/16 09:11; Admin Dose 12.5 MG; Start 09/12/16 at 09:00 Pyridoxine HCl (Vitamin B6) 100 mg DAILY GTB Last administered on 09/17/16 09: 09; Admin Dose 100 MG; Start 09/12/16 at 09:00 Vitamin E (Vitamin E) 400 units DAILY GTB Last administered on 09/17/16 09:10; Admin Dose 400 UNITS; Start 09/12/16 at 10:00 Aspirin (Aspirin) 81 mg DAILY GTB Last administered on 09/17/16 09:10; Admin Dose 81 MG; Start 09/12/16 at 09:00 Acetaminophen (Tylenol Liquid) 650 mg Q6H PRN GTB PAIN 1-3 OR TEMP; Start at 08:30 Acetaminophen/ Hydrocodone Bitart ([place] (5/325)) 1 tab Q6H PRN GTB MODERATE PAIN LEVEL 4-6; Start 09/12/16 at 11:30 Acetaminophen/ Hydrocodone Bitart ([place] (5/325)) 2 tab Q6H PRN GTB MODERATE PAIN LEVEL 4-6; Start 09/12/16 at 13:00 Lorazepam (Ativan) 1 mg Q6 PRN GTB ANXIETY; Start 09/12/16 at 08:30 Lorazepam (Ativan) 1 mg HS PRN GTB ANXIETY, HELP WITH SLEEP; Start 09/12/16 at 08:30 Simethicone (Mylicon) 80 mg Q6H PRN GTB INTESTINAL SPASMS/CRAMPING; Start at 11:30 Zolpidem Tartrate (Ambien) 10 mg HS PRN GTB INSOMNIA; Start 09/12/16 at 08:30 Docusate Sodium 100 mg 100 mg Q12 PRN GTB CONSTIPATION; Start 09/12/16 at 08: 30 Propofol 100 ml @ 3.915 mls/ hr TITRATE PRN IV maintain rass -2 to -3 Last administered on 09/17/16 13:42; Admin Dose 7.83 MLS/HR; Start 09/13/16 at 19:30 Vancomycin HCl/ Sodium Chloride (Vancocin/NS) 500 ml @ 125 mls/hr Q72H IVPB Last administered on 09/15/16at 15:00; Admin Dose 125 MLS/HR; Start 09/15/16 at 12:00 Insulin Aspart (Novolog Insulin Pen) NOVOLOG *MILD* ALGORI... Q6 SC ; Start 09/16 at 12:00 Dimethicone (Blistex Lip [place]) 1 applic Q2H PRN TOP CHAPPED LIPS; Start at 16:30 Miscellaneous Information (*Rx Drug Level Order Reminder*) VANCO TROUGH @ 1, 100 ON... ONCE ONCE XX ; Start 09/18/16 at 11:00; Stop 09/18/16 at 11:01 ALONSO MARTINEZ MD Sep 17, 2016 18:11
[2016-09-17] MEDS: FERROUS GLUCONATE (EC) 325 MG TAB PO SCH (21:15)
[2016-09-17] MEDS: ATORVASTATIN 10 MG TAB GTB SCH (21:16)
[2016-09-17] MEDS: ZOLPIDEM 5 MG TAB GTB PRN (21:16)
[2016-09-17] MEDS: INSULIN GLARGINE [LANtus] 3 ML PEN SC SCH (21:19)
[2016-09-17] MEDS: LORAZEPAM 1 MG TAB GTB PRN (23:40)
[2016-09-18] VITALS (69 sets, daily range): BP systolic 88–136; BP diastolic 53–109; PULSE 54–85; RESP 14–41
[2016-09-18] MEDS: ALBUTEROL HFA 8 GM INHALER INH SCH ×6 (01:30→21:19)
[2016-09-18] MEDS: IPRATROPIUM (HFA) 12.9 GM INHALER INH SCH ×6 (01:30→21:18)
[2016-09-18 04:50] LABS: BASOPHILS % 0.3 % (0.0-2.0); EOSINOPHILS # 0.6 10^3/ul (0.0-0.5); EOSINOPHILS % 6.3 % (0.0-7.0); HEMATOCRIT 27.1 % (42.0-52.0); HEMOGLOBIN 8.6 g/dl (14.0-18.0); LYMPHOCYTES # 0.9 10^3/ul (0.8-2.9); LYMPHOCYTES % 10.1 % (15.0-51.0); MEAN CORPUSCULAR HEMOGLOBIN 24.7 pg (29.0-33.0); MEAN CORPUSCULAR HGB CONC 31.8 g/dl (32.0-37.0); MEAN CORPUSCULAR VOLUME 77.6 fl (82.0-101.0); MEAN PLATELET VOLUME 8.6 fl (7.4-10.4); MONOCYTE # 0.6 10^3/ul (0.3-0.9); MONOCYTES % 6.9 % (0.0-11.0); NEUTROPHIL # 6.7 10^3/ul (1.6-7.5); NEUTROPHILS % 76.4 % (39.0-77.0); PLATELET COUNT 269 10^3/UL (140-440); RED BLOOD COUNT 3.49 10^6/ul (4.70-6.10); RED CELL DISTRIBUTION WIDTH 20.2 % (11.5-14.5); UNCORRECTED WBC 8.8 10^3/ul (4.8-10.8); WHITE BLOOD COUNT 8.8 10^3/ul (4.8-10.8)
[2016-09-18 04:59] LABS: CONDITION 1; LH ANALYZER COMMENTS 1
[2016-09-18 05:20] LABS: POTASSIUM 4.1 mmol/L (3.5-5.1)
[2016-09-18 05:23] LABS: CREATININE 3.65 mg/dl (0.61-1.24)
[2016-09-18] MEDS: INSULIN ASPART [NOVOLOG] 3 ML PEN SC SCH ×3 (06:00→17:48)
[2016-09-18] MEDS: HEPARIN 5,000 UNIT/0.5 ML SYG SC SCH ×3 (06:08→21:55)
--- NOTE | 2016-09-18 07:53 | RADRPT ---
PROCEDURE: Chest 1 views. CLINICAL INDICATION: Shortness of breath, pneumonia, congestive heart failure. TECHNIQUE: AP views of the chest were obtained. COMPARISON: September 17, 2016 FINDINGS: The heart is large. Endotracheal and nasogastric tubes are stable and appear in grossly appropriate location. Right-sided dialysis catheter is unchanged. Central pulmonary vascular congestion and in terstitial prominence in both lungs is stable. Bilateral perihilar and lower lung infiltrates and s mall right pleural effusion are stable. Osseous structures are intact. IMPRESSION: Cardiomegaly . Stable central pulmonary vascular congestion and interstitial prominence in both lungs. Stable bilateral perihilar and lower lung infiltrates and small right pleural effusion. RPTAT: AA .Curly Trujillo MD, Date Time Electronically viewed and signed by .Curly Trujillo MD, on 09/18/2016 07:53 .P/
[2016-09-18] MEDS: METOPROLOL 25 MG TAB GTB SCH ×2 (09:00→21:53)
[2016-09-18] MEDS: SODIUM HYPOCHLORITE 0.125% 473 ML BTL IRR SCH (09:00)
[2016-09-18] MEDS: FAMOTIDINE 20 MG TAB GTB SCH ×2 (09:00→15:19)
[2016-09-18] MEDS: COLISTIMETHATE (25 MG/ML INHAL SYG) NEB SCH ×2 (09:00→21:20)
[2016-09-18] MEDS: LACTOBACILLUS CHEW TAB GTB SCH ×3 (09:40→21:50)
[2016-09-18] MEDS: FERROUS GLUCONATE (EC) 325 MG TAB PO SCH ×2 (09:40→21:50)
[2016-09-18] MEDS: FERROUS SULFATE 60 MG/ML 5ML CUP GTB SCH ×2 (09:40→21:50)
[2016-09-18] MEDS: FLUOXETINE 20 MG CAP GTB SCH (09:40)
[2016-09-18] MEDS: VITAMIN E 400 UNITS CAP GTB SCH (09:40)
[2016-09-18] MEDS: CALCIUM CARBONATE 500 MG CHEW TAB GTB SCH ×3 (09:40→18:42)
[2016-09-18] MEDS: CHOLECALCIFEROL 1,000 UNIT TAB GTB SCH (09:41)
[2016-09-18] MEDS: PYRIDOXINE 50 MG TAB GTB SCH (09:41)
[2016-09-18] MEDS: ACETYLCYSTEINE 600 MG CAP GTB SCH ×2 (09:41→21:50)
[2016-09-18] MEDS: FISH OIL 1,000 MG CAP PO SCH (09:41)
[2016-09-18] MEDS: FLUCONAZOLE 100 MG TAB GTB SCH (09:41)
[2016-09-18] MEDS: ASPIRIN 81 MG TAB GTB SCH (09:41)
[2016-09-18] MEDS: ASCORBIC ACID 500 MG TAB GTB SCH (09:41)
[2016-09-18] MEDS: ALLOPURINOL 100 MG TAB GTB SCH (09:41)
--- NOTE | 2016-09-18 11:02 | PN ---
Date/Time of Note Date/Time of Note DATE: 09/18/16 TIME: 10:58 Assessment/Plan VTE Prophylaxis VTE Prophylaxis Intervention: heparin Lines/Catheters IV Catheter Type (from [facility]): PICC Line Urinary Cath still in place: Yes Assessment/Plan Chief Complaint/Hosp Course Assessment and plan 1. Left great toe osteomyelitis. Patient is status post evaluation by vascular consult. Podiatry following for left foot wound. Continue with antibiotics per ID. 2. Acute on chronic respiratory failure, hypoxic and hypercapnic. S/P intubation on 09/06/2016 because of worsening respiratory distress. Still with pulmonary congestion. Continue on dialysis. Pulmonology following. Provide with bronchodilators . Continue daily assessment for vent liberation 3. Ventilator associated pneumonia. Sputum culture positive for Acinetobacter baumannii. Continue aspiration precautions. Antibiotics per ID 4. Pulmonary hypertension. Continue supplemental oxygen. 5. Acute on chronic kidney disease. The patient was newly started on hemodialysis. Nephrology following. Monitor renal panel will adjust as needed 6. Congestive heart failure exacerbation. Acute on chronic diastolic dysfunction. Continue hemodialysis as per nephrology. 7. Type 2 diabetes mellitus. Hemoglobin A1c 5.8. Continue sliding scale insulin. Adjust as needed 8. Essential hypertension. Continue antihypertensives. 9. Atrial fibrillation. Rate controlled. Cardiology following. Therapeutic anticoagulation will be deferred to cardiology. Of note remains on heparin 10. Dyslipidemia. Continue statins. 11. Gout. Continue allopurinol. 12. History of Major depression. We'll continue Lyrica once able to tolerate oral intake 13. Morbid obesity 14. Fluid, electrolytes, and nutrition. Continue NGT feedings. 15. Deep vein thrombosis prophylaxis. Subcutaneous heparin. 16. Gastrointestinal prophylaxis. Histamine 2 blockers. Disposition and plan: Still noted with pulmonary congestion. ABG still with with hypoxia. Continue on dialysis. Continue CPAP trial for pulmonary. Continue daily assessment for vent liberation Discussed plan of care with Critical care time: 30 minutes Problems: Subjective 24 Hr Interval Summary Free Text/Dictation remains intubated. is oriented on verbal stimulus. no apparent distress. RN at bedside Exam/Review of Systems Vital Signs Vitals Vital Signs Date Time Temp Pulse Resp B/P Pulse Ox O2 Delivery O2 Flow Rate FiO2 09/18/16 10:00 60 09/18/16 08:58 72 18 97 09/18/16 08:45 102/85 Mechanical Ventilator 09/18/16 08:00 98.4 Intake and Output 09/17/16 09/17/16 09/18/16 14:59 22:59 06:59 Intake Total 339.0 ml 883.4 ml 450 ml Output Total 15 ml 6235 ml 80 ml Balance 324.0 ml -5351.6 ml 370 ml Exam General: Obese, remains intubated Eyes: pupils equal round, Anicteric sclera Neck: Supple nontender, no JVD Cardiac: Regular rate. Slight murmur auscultated Pulmonary: Rales auscultated bilaterally GI: Obese, bowel sounds active Extremities: Bilateral lower extremity edema Skin: Surgical site of lower extremity clean dry and intact Neurologic: Intubated, does awaken to verbal stimulus Results Result Diagram: 09/18/16 0430 09/18/16 0430 Results 24 hrs Laboratory Tests Test 09/17/16 12:18 09/17/16 12:30 09/17/16 18:07 09/17/16 21:18 Bedside Glucose 91 95 101 Arterial Blood HCO3 27.4 H Arterial Blood Base Excess 1.2 Arterial Blood Oxygen Saturation 85.1 L Khoi Test ACCEPTAB Arterial Blood Gas Puncture Site Right Radial Arterial Blood Carboxyhemoglobin 0.5 Arterial Blood Date Drawn 09/17/2016 12:40:30 PM Arterial Blood Methemoglobin 0.1 Arterial Blood pCO2 (Temp correct) 50.6 H Arterial Blood pH (Temp corrected) 7.351 Arterial Blood pO2 (Temp corrected) 52.2 *L Blood Gas A-a O2 Differential 174.8 H Blood Gas Actual Respiration Rate 28 Blood Gas Critical Value Read Back RN A LASHAE Blood Gas Low PEEP Setting 5.0 Blood Gas Modality VENT - CPAP Blood Gas Notified Time 09/17/2016 1:12:07 PM Blood Gas Notified Whom AT Blood Gas Pressure Support 10 Blood Gas Specimen Source Blood arterial Blood Gas Temperature 37.0 FiO2 40.0 Oxyhemoglobin Percent 84.6 L Total Hemoglobin 10.9 L Test 09/17/16 23:40 09/18/16 04:30 09/18/16 06:07 Bedside Glucose 95 81 Anion Gap 15 Basophils # 0.0 Basophils % 0.3 Blood Morphology Comment Blood Urea Nitrogen 60 H Calcium Level 8.0 L Carbon Dioxide Level 28 Chloride Level 98 Creatinine 3.65 H Eosinophils # 0.6 H Eosinophils % 6.3 Glucose Level 77 Hematocrit 27.1 L Hemoglobin 8.6 L Lymphocytes # 0.9 Lymphocytes % 10.1 L Mean Corpuscular Hemoglobin 24.7 L Mean Corpuscular Hemoglobin Concent 31.8 L Mean Corpuscular Volume 77.6 L Mean Platelet Volume 8.6 Monocytes # 0.6 Monocytes % 6.9 Neutrophils # 6.7 Neutrophils % 76.4 Nucleated Red Blood Cells # 0.0 Nucleated Red Blood Cells % 0.0 Platelet Count 269 Potassium Level 4.1 Red Blood Count 3.49 L Red Cell Distribution Width 20.2 H Sodium Level 137 White Blood Count 8.8 Medications Medications Current Medications Morphine Sulfate (morphine) 2 mg Q4H PRN IV SEVERE PAIN LEVEL 7-10 Last administered on 09/17/16 02:04; Admin Dose 2 MG; Start 08/13/16 at 17:30 Fish Oil (Fish Oil) 1,000 mg DAILY PO Last administered on 09/18/16 09:41; Admin Dose 1,000 MG; Start 08/14/16 at 09:00 Miscellaneous Information 1 ea NOTE XX ; Start 08/13/16 at 18:00 Glucose (Glutose) 15 gm Q15M PRN PO DECREASED GLUCOSE; Start 08/13/16 at 18:00 Glucose (Glutose) 22.5 gm Q15M PRN PO DECREASED GLUCOSE; Start 08/13/16 at 18: 00 Dextrose (D50w Syringe) 25 ml Q15M PRN IV DECREASED GLUCOSE Last administered on 09/10/16at 09:18; Admin Dose 25 ML; Start 08/13/16 at 18:00 Dextrose (D50w Syringe) 50 ml Q15M PRN IV DECREASED GLUCOSE; Start 08/13/16 at 18:00 Glucagon (Glucagen) 1 mg Q15M PRN IM DECREASED GLUCOSE; Start 08/13/16 at 18: 00 Glucose (Glutose) 15 gm Q15M PRN BUCCAL DECREASED GLUCOSE; Start 08/13/16 at 18:00 Sodium Hypochlorite (Dakin'S (1/4 Strength)) 1 applic DAILY IRR Last administered on 09/17/16 09:13; Admin Dose 1 APPLIC; Start 08/13/16 at 20:00 IV Flush (NS 10 ml) 10 ml PRN PRN IV IV PTOTOCOL; Start 08/14/16 at 17:00 Ondansetron HCl (Zofran Inj) 4 mg Q4H PRN IV NAUSEA AND/OR VOMITING; Start 08/16/16 at 12:30 Phenol 1 lozenge 1 lozenge Q1H PRN MT DRY MOUTH Last administered on 08/20/16at 21:28; Admin Dose 1 LOZENGE; Start 08/20/16 at 20:30 Norepinephrine/ Dextrose (Levophed/D5W) 500 ml @ 1.87 mls/hr TITRATE IV ; Start 09/09/16 at 08:00 Lorazepam (Ativan) 2 mg Q4H PRN IV anxiety; Start 09/09/16 at 10:30 Heparin Sodium (Porcine) (Heparin (5000 Units/0.5 ml)) 5,000 unit Q8 SC Last administered on 09/18/16 06:08; Admin Dose 5,000 UNIT; Start 09/09/16 at 22:00 Insulin Glargine 10 unit 10 unit HS SC Last administered on 09/17/16 21:19; Admin Dose 10 UNIT; Start 09/10/16 at 22:00 Colistimethate Sodium/Sodium Chloride (Coly-Mycin/NS) 100 ml @ 50 mls/hr Q24H IVPB Last administered on 09/17/16 16:44; Admin Dose 50 MLS/HR; Start at 16:00 Acetylcysteine (Nac) 600 mg BID GTB Last administered on 09/18/16 09:41; Admin Dose 600 MG; Start 09/12/16 at 09:00 Allopurinol (Zyloprim) 100 mg DAILY GTB Last administered on 09/18/16 09:41; Admin Dose 100 MG; Start 09/12/16 at 09:00 Ascorbic Acid (Vitamin C) 500 mg DAILY GTB Last administered on 09/18/16 09:41 ; Admin Dose 500 MG; Start 09/12/16 at 09:00 Atorvastatin Calcium (Lipitor) 10 mg QHS GTB Last administered on 09/17/16 21: 16; Admin Dose 10 MG; Start 09/12/16 at 21:00 Cholecalciferol (Vitamin D) 1,000 unit DAILY GTB Last administered on 09/18/16 09:41; Admin Dose 1,000 UNIT; Start 09/12/16 at 09:00 Diphenhydramine HCl (Benadryl) 25 mg Q6H PRN GTB ITCHING; Start 09/12/16 at 08 :30 Famotidine (Pepcid) 20 mg DAILY GTB Last administered on 09/17/16 09:10; Admin Dose 20 MG; Start 09/12/16 at 09:00 Ferrous Sulfate (Feosol Liquid Cup) 300 mg BID GTB Last administered on 09:40; Admin Dose 300 MG; Start 09/12/16 at 09:00 Fluconazole (Diflucan) 100 mg DAILY GTB Last administered on 09/18/16 09:41; Admin Dose 100 MG; Start 09/12/16 at 09:00 Fluoxetine HCl (Prozac) 20 mg DAILY GTB Last administered on 09/18/16 09:40; Admin Dose 20 MG; Start 09/12/16 at 10:00 Lactobacillus Acidoph/Bulgaricus (Floranex) 1 tab TID GTB Last administered on 09/18/16 09:40; Admin Dose 1 TAB; Start 09/12/16 at 09:00 Metoprolol Tartrate (Lopressor) 12.5 mg BID GTB Last administered on 09/17/16 21:16; Admin Dose 12.5 MG; Start 09/12/16 at 09:00 Pyridoxine HCl (Vitamin B6) 100 mg DAILY GTB Last administered on 09/18/16 09: 41; Admin Dose 100 MG; Start 09/12/16 at 09:00 Vitamin E (Vitamin E) 400 units DAILY GTB Last administered on 09/18/16 09:40; Admin Dose 400 UNITS; Start 09/12/16 at 10:00 Aspirin (Aspirin) 81 mg DAILY GTB Last administered on 09/18/16 09:41; Admin Dose 81 MG; Start 09/12/16 at 09:00 Acetaminophen (Tylenol Liquid) 650 mg Q6H PRN GTB PAIN 1-3 OR TEMP; Start at 08:30 Acetaminophen/ Hydrocodone Bitart ([place] (5/325)) 1 tab Q6H PRN GTB MODERATE PAIN LEVEL 4-6; Start 09/12/16 at 11:30 Acetaminophen/ Hydrocodone Bitart ([place] (5/325)) 2 tab Q6H PRN GTB MODERATE PAIN LEVEL 4-6; Start 09/12/16 at 13:00 Lorazepam (Ativan) 1 mg Q6 PRN GTB ANXIETY; Start 09/12/16 at 08:30 Lorazepam (Ativan) 1 mg HS PRN GTB ANXIETY, HELP WITH SLEEP Last administered on 09/17/16 23:40; Admin Dose 1 MG; Start 09/12/16 at 08:30 Simethicone (Mylicon) 80 mg Q6H PRN GTB INTESTINAL SPASMS/CRAMPING; Start at 11:30 Zolpidem Tartrate (Ambien) 10 mg HS PRN GTB INSOMNIA Last administered on 21:16; Admin Dose 10 MG; Start 09/12/16 at 08:30 Docusate Sodium 100 mg 100 mg Q12 PRN GTB CONSTIPATION; Start 09/12/16 at 08: 30 Propofol 100 ml @ 3.915 mls/ hr TITRATE PRN IV maintain rass -2 to -3 Last administered on 09/17/16 13:42; Admin Dose 7.83 MLS/HR; Start 09/13/16 at 19:30 Vancomycin HCl/ Sodium Chloride (Vancocin/NS) 500 ml @ 125 mls/hr Q72H IVPB Last administered on 09/15/16at 15:00; Admin Dose 125 MLS/HR; Start 09/15/16 at 12:00 Insulin Aspart (Novolog Insulin Pen) NOVOLOG *MILD* ALGORI... Q6 SC ; Start 09/16 at 12:00 Dimethicone (Blistex Lip [place]) 1 applic Q2H PRN TOP CHAPPED LIPS; Start at 16:30 Miscellaneous Information (*Rx Drug Level Order Reminder*) VANCO TROUGH @ 1, 100 ON... ONCE ONCE XX ; Start 09/18/16 at 11:00; Stop 09/18/16 at 11:01 Ferrous Gluconate (Fergon) 325 mg BID PO Last administered on 09/18/16 09:40; Admin Dose 325 MG; Start 09/17/16 at 21:00 GIUSEPPE BREAUX Sep 18, 2016 11:01
--- NOTE | 2016-09-18 12:05 | PN ---
DATE: 09/18/2016 SUBJECTIVE: The changes overnight. The patient remains intubated, sedated, looks comfortable on ve nt with a temperature of 98.4, pulse 72, respirations 18, blood pressure 102/85, saturation 97% on 40%. WBC 8.8, H and H 8.6 and 27.1, platelet count of 69, BUN 60, creatinine 3.65. MICROBIOLOGY: Blood cultures since 09/10/2016 remain negative and also since admission, sputum cult ure on 09/09/2016 grew Acinetobacter baumannii. ANTIMICROBIALS: The patient is on IV vancomycin and colistin. INDWELLINGS: Endotracheal tube, NG tube, right subclavian permacath, PICC line. DIAGNOSTICS: Chest x-ray this morning revealed cardiomegaly and stable central pulmonary vascular c ongestion. PHYSICAL EXAMINATION: GENERAL: This is a morbidly obese, middle-aged white man who is intubated and sedated, in no distre ss. HEENT: Head atraumatic, normocephalic. Sclerae anicteric. Buccal mucosa dry. NECK: Supple, trachea midline. CHEST: Rise symmetrical. Breath sounds diminished to bases. HEART: S1, S2. ABDOMEN: Soft, bowel tones present. EXTREMITIES: Without cyanosis. Bilateral lower extremities Patrick wrapped. ASSESSMENT: 1. Acute on chronic respiratory failure secondary to pneumonia and pulmonary edema. 2. Status post oxacillin sensitive Staphylococcus aureus septicemia on admission with repeat cultur es remain negative. 3. Left great toe osteomyelitis. 4. Acute on chronic kidney disease, hemodialysis dependent. 5. Diabetes. 6. Morbid obesity. 7. Coronary artery disease. PLAN: The patient remains unchanged, hemodynamically stable, completing antibiotics for osteomyelit is. Continue weaning trials as per pulmonary. Dictated By: JAMEY VAZQUEZ NET MANAGER for DONAVAN BRITTON MD NI/NTS Conf#: [id number] DID#: [id number]
--- NOTE | 2016-09-18 13:37 | CONS ---
Date/Time of Note Date/Time of Note DATE: 09/18/16 TIME: 13:35 Assessment/Plan Assessment/Plan Additional Assessment/Plan 60 yo male with 1) Respiratory Failure 2) HCAP 3) LORNA on CKD, Currently on HD 4) Volume Overload, Anasarca 5) Pulm HTN 6) Morbid Obesity 7) Bilateral lower extremities acute on chronic cellulitis with left toe osteomyelitis. 8) Status post oxacillin-sensitive Staphylococcus aureus septicemia. On HD stable cont current treatment. Consultation Date/Type/Reason Admit Date/Time Aug 13, 2016 at 16:30 Initial Consult Date 08/13/16 Type of Consultation: Nephrology Referring Provider: KELLEN MEDINA MD 24 HR Interval Summary Free Text/Dictation Seen and Examined on HD. Subjective hx not possible: pt critical status Constitutional: requiring O2 Exam/Review of Systems Vital Signs Vitals Vital Signs Date Time Temp Pulse Resp B/P Pulse Ox O2 Delivery O2 Flow Rate FiO2 09/18/16 13:30 67 09/18/16 11:06 18 98 50 09/18/16 08:45 102/85 Mechanical Ventilator 09/18/16 08:00 98.4 Intake and Output 09/17/16 09/17/16 09/18/16 15:00 23:00 07:00 Intake Total 389.0 ml 875.6 ml 450 ml Output Total 15 ml 6235 ml 80 ml Balance 374.0 ml -5359.4 ml 370 ml Exam ENMT: intubated, mucosa pink and moist Neck: No jvd Respiratory: crackles/rales Cardiovascular: edema Gastrointestinal: non-tender, soft 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: No lethargic Skin: No diaphoresis Results Result Diagram: 09/18/16 0430 09/18/16 0430 Results 24 hrs Laboratory Tests Test 09/17/16 18:07 09/17/16 21:18 09/17/16 23:40 09/18/16 04:30 Bedside Glucose 95 101 95 Anion Gap 15 Basophils # 0.0 Basophils % 0.3 Blood Morphology Comment Blood Urea Nitrogen 60 H Calcium Level 8.0 L Carbon Dioxide Level 28 Chloride Level 98 Creatinine 3.65 H Eosinophils # 0.6 H Eosinophils % 6.3 Glucose Level 77 Hematocrit 27.1 L Hemoglobin 8.6 L Lymphocytes # 0.9 Lymphocytes % 10.1 L Mean Corpuscular Hemoglobin 24.7 L Mean Corpuscular Hemoglobin Concent 31.8 L Mean Corpuscular Volume 77.6 L Mean Platelet Volume 8.6 Monocytes # 0.6 Monocytes % 6.9 Neutrophils # 6.7 Neutrophils % 76.4 Nucleated Red Blood Cells # 0.0 Nucleated Red Blood Cells % 0.0 Platelet Count 269 Potassium Level 4.1 Red Blood Count 3.49 L Red Cell Distribution Width 20.2 H Sodium Level 137 White Blood Count 8.8 Test 09/18/16 06:07 09/18/16 10:50 Bedside Glucose 81 Vancomycin Level Trough 10.7 Medications Medications Current Medications Morphine Sulfate (morphine) 2 mg Q4H PRN IV SEVERE PAIN LEVEL 7-10 Last administered on 09/17/16 02:04; Admin Dose 2 MG; Start 08/13/16 at 17:30 Fish Oil (Fish Oil) 1,000 mg DAILY PO Last administered on 09/18/16 09:41; Admin Dose 1,000 MG; Start 08/14/16 at 09:00 Miscellaneous Information 1 ea NOTE XX ; Start 08/13/16 at 18:00 Glucose (Glutose) 15 gm Q15M PRN PO DECREASED GLUCOSE; Start 08/13/16 at 18:00 Glucose (Glutose) 22.5 gm Q15M PRN PO DECREASED GLUCOSE; Start 08/13/16 at 18: 00 Dextrose (D50w Syringe) 25 ml Q15M PRN IV DECREASED GLUCOSE Last administered on 09/10/16at 09:18; Admin Dose 25 ML; Start 08/13/16 at 18:00 Dextrose (D50w Syringe) 50 ml Q15M PRN IV DECREASED GLUCOSE; Start 08/13/16 at 18:00 Glucagon (Glucagen) 1 mg Q15M PRN IM DECREASED GLUCOSE; Start 08/13/16 at 18: 00 Glucose (Glutose) 15 gm Q15M PRN BUCCAL DECREASED GLUCOSE; Start 08/13/16 at 18:00 Sodium Hypochlorite (Dakin'S (1/4 Strength)) 1 applic DAILY IRR Last administered on 09/17/16 09:13; Admin Dose 1 APPLIC; Start 08/13/16 at 20:00 IV Flush (NS 10 ml) 10 ml PRN PRN IV IV PTOTOCOL; Start 08/14/16 at 17:00 Ondansetron HCl (Zofran Inj) 4 mg Q4H PRN IV NAUSEA AND/OR VOMITING; Start 08/16/16 at 12:30 Phenol 1 lozenge 1 lozenge Q1H PRN MT DRY MOUTH Last administered on 08/20/16at 21:28; Admin Dose 1 LOZENGE; Start 08/20/16 at 20:30 Norepinephrine/ Dextrose (Levophed/D5W) 500 ml @ 1.87 mls/hr TITRATE IV ; Start 09/09/16 at 08:00 Lorazepam (Ativan) 2 mg Q4H PRN IV anxiety; Start 09/09/16 at 10:30 Heparin Sodium (Porcine) (Heparin (5000 Units/0.5 ml)) 5,000 unit Q8 SC Last administered on 09/18/16 06:08; Admin Dose 5,000 UNIT; Start 09/09/16 at 22:00 Insulin Glargine 10 unit 10 unit HS SC Last administered on 09/17/16 21:19; Admin Dose 10 UNIT; Start 09/10/16 at 22:00 Colistimethate Sodium/Sodium Chloride (Coly-Mycin/NS) 100 ml @ 50 mls/hr Q24H IVPB Last administered on 09/17/16 16:44; Admin Dose 50 MLS/HR; Start at 16:00 Acetylcysteine (Nac) 600 mg BID GTB Last administered on 09/18/16 09:41; Admin Dose 600 MG; Start 09/12/16 at 09:00 Allopurinol (Zyloprim) 100 mg DAILY GTB Last administered on 09/18/16 09:41; Admin Dose 100 MG; Start 09/12/16 at 09:00 Ascorbic Acid (Vitamin C) 500 mg DAILY GTB Last administered on 09/18/16 09:41 ; Admin Dose 500 MG; Start 09/12/16 at 09:00 Atorvastatin Calcium (Lipitor) 10 mg QHS GTB Last administered on 09/17/16 21: 16; Admin Dose 10 MG; Start 09/12/16 at 21:00 Cholecalciferol (Vitamin D) 1,000 unit DAILY GTB Last administered on 09/18/16 09:41; Admin Dose 1,000 UNIT; Start 09/12/16 at 09:00 Diphenhydramine HCl (Benadryl) 25 mg Q6H PRN GTB ITCHING; Start 09/12/16 at 08 :30 Famotidine (Pepcid) 20 mg DAILY GTB Last administered on 09/17/16 09:10; Admin Dose 20 MG; Start 09/12/16 at 09:00 Ferrous Sulfate (Feosol Liquid Cup) 300 mg BID GTB Last administered on 09:40; Admin Dose 300 MG; Start 09/12/16 at 09:00 Fluconazole (Diflucan) 100 mg DAILY GTB Last administered on 09/18/16 09:41; Admin Dose 100 MG; Start 09/12/16 at 09:00 Fluoxetine HCl (Prozac) 20 mg DAILY GTB Last administered on 09/18/16 09:40; Admin Dose 20 MG; Start 09/12/16 at 10:00 Lactobacillus Acidoph/Bulgaricus (Floranex) 1 tab TID GTB Last administered on 09/18/16 09:40; Admin Dose 1 TAB; Start 09/12/16 at 09:00 Metoprolol Tartrate (Lopressor) 12.5 mg BID GTB Last administered on 09/17/16 21:16; Admin Dose 12.5 MG; Start 09/12/16 at 09:00 Pyridoxine HCl (Vitamin B6) 100 mg DAILY GTB Last administered on 09/18/16 09: 41; Admin Dose 100 MG; Start 09/12/16 at 09:00 Vitamin E (Vitamin E) 400 units DAILY GTB Last administered on 09/18/16 09:40; Admin Dose 400 UNITS; Start 09/12/16 at 10:00 Aspirin (Aspirin) 81 mg DAILY GTB Last administered on 09/18/16 09:41; Admin Dose 81 MG; Start 09/12/16 at 09:00 Acetaminophen (Tylenol Liquid) 650 mg Q6H PRN GTB PAIN 1-3 OR TEMP; Start at 08:30 Acetaminophen/ Hydrocodone Bitart ([place] (5/325)) 1 tab Q6H PRN GTB MODERATE PAIN LEVEL 4-6; Start 09/12/16 at 11:30 Acetaminophen/ Hydrocodone Bitart ([place] (5/325)) 2 tab Q6H PRN GTB MODERATE PAIN LEVEL 4-6; Start 09/12/16 at 13:00 Lorazepam (Ativan) 1 mg Q6 PRN GTB ANXIETY; Start 09/12/16 at 08:30 Lorazepam (Ativan) 1 mg HS PRN GTB ANXIETY, HELP WITH SLEEP Last administered on 09/17/16 23:40; Admin Dose 1 MG; Start 09/12/16 at 08:30 Simethicone (Mylicon) 80 mg Q6H PRN GTB INTESTINAL SPASMS/CRAMPING; Start at 11:30 Zolpidem Tartrate (Ambien) 10 mg HS PRN GTB INSOMNIA Last administered on 21:16; Admin Dose 10 MG; Start 09/12/16 at 08:30 Docusate Sodium 100 mg 100 mg Q12 PRN GTB CONSTIPATION; Start 09/12/16 at 08: 30 Propofol 100 ml @ 3.915 mls/ hr TITRATE PRN IV maintain rass -2 to -3 Last administered on 09/17/16 13:42; Admin Dose 7.83 MLS/HR; Start 09/13/16 at 19:30 Vancomycin HCl/ Sodium Chloride (Vancocin/NS) 500 ml @ 125 mls/hr Q72H IVPB Last administered on 09/15/16at 15:00; Admin Dose 125 MLS/HR; Start 09/15/16 at 12:00 Insulin Aspart (Novolog Insulin Pen) NOVOLOG *MILD* ALGORI... Q6 SC ; Start 09/16 at 12:00 Dimethicone (Blistex Lip [place]) 1 applic Q2H PRN TOP CHAPPED LIPS; Start at 16:30 Ferrous Gluconate (Fergon) 325 mg BID PO Last administered on 09/18/16 09:40; Admin Dose 325 MG; Start 09/17/16 at 21:00 Procedures Procedures PROCEDURE: Chest 1 views. CLINICAL INDICATION: Shortness of breath, pneumonia, congestive heart failure. TECHNIQUE: AP views of the chest were obtained. COMPARISON: September 17, 2016 FINDINGS: The heart is large. Endotracheal and nasogastric tubes are stable and appear in grossly appropriate location. Right-sided dialysis catheter is unchanged. Central pulmonary vascular congestion and interstitial prominence in both lungs is stable. Bilateral perihilar and lower lung infiltrates and small right pleural effusion are stable. Osseous structures are intact. IMPRESSION: Cardiomegaly . Stable central pulmonary vascular congestion and interstitial prominence in both lungs. Stable bilateral perihilar and lower lung infiltrates and small right pleural effusion. RPTAT: AA .Curly Trujillo MD, MD Date Time Electronically viewed and signed by .Curly Trujillo MD, MD on 09/18/2016 07:53 DYAN FRANKLIN MD Sep 18, 2016 13:37
[2016-09-18] MEDS: VANCOMYCIN 2 GM in SOD CHLORIDE 0.9% 500 ML IVPB SCH (14:30)
[2016-09-18] MEDS: COLISTIMETHATE 100 MG in SOD CHLORIDE 0.9% 100 ML IVPB SCH (17:31)
[2016-09-18 18:26] LABS: AADO2 Arterial 235.4 mmHg (7.0-24.0); Allen Test ACCEPTAB; Arterial Base Excess 2.3 mmol/L (-3.0-3); Arterial COHb 0.2 % (0.0-3.0); Arterial Fraction of Oxyhgb 92.1 % (93.0-99.0); Arterial HCO3 27.9 mmol/L (22.0-26.0); Arterial MetHb 0.1 % (0.0-1.5); Arterial Total Hemglobin 10.4 g/dl (12.0-18.0); Blood Gas PS 10; MODE VENT - CPAP
[2016-09-18] MEDS: ATORVASTATIN 10 MG TAB GTB SCH (21:50)
[2016-09-18] MEDS: INSULIN GLARGINE [LANtus] 3 ML PEN SC SCH (21:54)
--- NOTE | 2016-09-18 23:05 | RADRPT ---
PROCEDURE: XR Chest. CLINICAL INDICATION: Check the orogastric tube position. TECHNIQUE: Single frontal view. COMPARISON: Prior study done earlier the same day. FINDINGS: The orogastric tube tip is now in the proximal esophagus. The endotracheal tube remains in satisfac tory position. The right internal jugular vein tunneled dialysis catheter remains in satisfactory p osition. Pulmonary edema is unchanged. Mild atelectasis at the lung bases is unchanged. The heart is mildly enlarged. There are small bilateral pleural effusions. There is no pneumothorax. IMPRESSION: 1. Orogastric tube tip in the upper esophagus. 2. No other change from the prior study done earlier the same day. RPTAT: QQ .Aldo Ramirez MD, MD Date Time Electronically viewed and signed by .Aldo Ramirez MD, MD on 09/18/2016 23:05 .R/
[2016-09-19] VITALS (41 sets, daily range): BP systolic 87–129; BP diastolic 52–83; PULSE 55–86; RESP 10–26
[2016-09-19] MEDS: LORAZEPAM 2 MG INJ IV PRN ×2 (01:34→23:43)
[2016-09-19] MEDS: ALBUTEROL HFA 8 GM INHALER INH SCH ×5 (01:47→17:05)
[2016-09-19] MEDS: IPRATROPIUM (HFA) 12.9 GM INHALER INH SCH ×5 (01:47→17:05)
[2016-09-19] MEDS: INSULIN ASPART [NOVOLOG] 3 ML PEN SC SCH ×5 (06:00→23:47)
[2016-09-19] MEDS: HEPARIN 5,000 UNIT/0.5 ML SYG SC SCH ×3 (06:35→21:31)
[2016-09-19 06:42] LABS: BASOPHILS % 0.5 % (0.0-2.0); EOSINOPHILS # 0.5 10^3/ul (0.0-0.5); EOSINOPHILS % 4.9 % (0.0-7.0); HEMATOCRIT 26.8 % (42.0-52.0); HEMOGLOBIN 8.8 g/dl (14.0-18.0); LYMPHOCYTES # 0.9 10^3/ul (0.8-2.9); LYMPHOCYTES % 9.1 % (15.0-51.0); MEAN CORPUSCULAR HEMOGLOBIN 25.1 pg (29.0-33.0); MEAN CORPUSCULAR HGB CONC 32.7 g/dl (32.0-37.0); MEAN CORPUSCULAR VOLUME 76.6 fl (82.0-101.0); MEAN PLATELET VOLUME 8.8 fl (7.4-10.4); MONOCYTE # 0.6 10^3/ul (0.3-0.9); MONOCYTES % 6.1 % (0.0-11.0); NEUTROPHIL # 7.7 10^3/ul (1.6-7.5); NEUTROPHILS % 79.4 % (39.0-77.0); PLATELET COUNT 282 10^3/UL (140-440); RED BLOOD COUNT 3.49 10^6/ul (4.70-6.10); RED CELL DISTRIBUTION WIDTH 20.9 % (11.5-14.5); UNCORRECTED WBC 9.7 10^3/ul (4.8-10.8); WHITE BLOOD COUNT 9.7 10^3/ul (4.8-10.8)
--- NOTE | 2016-09-19 06:45 | PN ---
DATE: 09/18/2016 CARDIOLOGY FOLLOWUP: discussed with the staff, discussed with the patient's in detail . The patient remains intubated on the vent in the ICU. He has not been able to wean off. Denies any chest pain or pressure to me. Denies any palpitations to me. Denies any shortness of breath to me, in fact. MEDICATIONS: Reviewed as per medication reconciliation, was personally extensively reviewed. PHYSICAL EXAMINATION: VITAL SIGNS: Temperature 98.4, heart rate of 62, blood pressure 102/85, respiratory rate of 18. HEENT: Normocephalic, atraumatic. Morbidly obese gentleman. Pupils are equal. Pupils are round. Status post intubation on the vent. CARDIOVASCULAR: Irregularly irregular. PULMONARY: With no wheezes heard anteriorly. Minimal rhonchi. GASTROINTESTINAL: Obese, soft, nontender. EXTREMITIES: With positive edema in dressing. NEUROLOGIC: Awake, responds appropriately. PSYCHIATRIC: Appears to be calm and pleasant. DIAGNOSTIC DATA: Chest x-ray shows stable with central vascular congestion and interstitial promine nce in both lungs. LABORATORY: Sodium 137, potassium 4.1, BUN of 60, creatinine of 3.65, glucose of 77. WBC of 8.8, h emoglobin 8.6, platelets 269. ASSESSMENT AND PLAN: 1. Hypoxemia respiratory failure, status post intubation. Currently on the vent. 2. Renal failure, currently on dialysis. 3. Congestive heart failure/fluid overload, secondary to diastolic dysfunction. 4. Atrial fibrillation, chronic. Currently not anticoagulated. 5. History of gastrointestinal bleed, currently is ____ stools are negative x2 at least. 6. History of hypertension, currently stable. 7. Anemia, probably anemia of chronic disease. 8. Status post sepsis and pneumonia. Antibiotic is managed as per ID 9. Pleural effusion, status post thoracentesis. ____ anticoagulation and evaluation by vascular. RECOMMENDATIONS: Hemodialysis as per renal will be managed. Fluid management as per dialysis per r enal. Heart rate is currently under good control on the current regimen. We will continue to monit or. Anticoagulation with Eliquis versus others discussed with the patient and his in detail. According to the , the patient has had GI bleed in the past and they very concerned and hesitant to restart him back on the Eliquis. For now, we will continue with the aspirin. I will check the guaiac stools again. If remains negative and no procedure such a tracheostomy is needed, we will c onsider resuming it. After discussion further with the family. Continue with the ICU care. Respir atory care will be continued. Weaning as tolerated. If he does not tolerate weaning, he may need t o be getting tracheostomy again. We will continue with ICU care. More than 40 minutes of critical care time was spent managing this patient, excluding procedures. Dictated By: GARDENIA RAZO/GREGORY Conf#: [id number] DID#: [id number]
[2016-09-19 06:51] LABS: CONDITION 1; LH ANALYZER COMMENTS 1; SUSPECT 1
[2016-09-19 07:01] LABS: POTASSIUM 3.9 mmol/L (3.5-5.1)
[2016-09-19 07:03] LABS: CREATININE 3.46 mg/dl (0.61-1.24)
[2016-09-19 07:04] LABS: CALCIUM 7.9 mg/dl (8.4-10.2)
[2016-09-19] MEDS: CALCIUM CARBONATE 500 MG CHEW TAB GTB SCH ×3 (08:16→17:39)
[2016-09-19] MEDS: LACTOBACILLUS CHEW TAB GTB SCH ×3 (08:17→20:26)
[2016-09-19] MEDS: FERROUS SULFATE 60 MG/ML 5ML CUP GTB SCH ×2 (08:17→20:26)
[2016-09-19] MEDS: FLUCONAZOLE 100 MG TAB GTB SCH (08:17)
[2016-09-19] MEDS: ACETYLCYSTEINE 600 MG CAP GTB SCH ×2 (08:17→20:26)
[2016-09-19] MEDS: ASPIRIN 81 MG TAB GTB SCH (08:17)
[2016-09-19] MEDS: ASCORBIC ACID 500 MG TAB GTB SCH (08:18)
[2016-09-19] MEDS: ALLOPURINOL 100 MG TAB GTB SCH (08:18)
[2016-09-19] MEDS: VITAMIN E 400 UNITS CAP GTB SCH (08:18)
[2016-09-19] MEDS: FLUOXETINE 20 MG CAP GTB SCH (08:18)
[2016-09-19] MEDS: CHOLECALCIFEROL 1,000 UNIT TAB GTB SCH (08:18)
[2016-09-19] MEDS: PYRIDOXINE 50 MG TAB GTB SCH (08:18)
[2016-09-19] MEDS: FAMOTIDINE 20 MG TAB GTB SCH (08:18)
[2016-09-19] MEDS: FISH OIL 1,000 MG CAP PO SCH (08:19)
[2016-09-19 08:20] LABS: AADO2 Arterial 162.8 mmHg (7.0-24.0); Allen Test ACCEPTAB; Arterial Base Excess 1.3 mmol/L (-3.0-3); Arterial COHb 0.6 % (0.0-3.0); Arterial Fraction of Oxyhgb 93.8 % (93.0-99.0); Arterial HCO3 26.2 mmol/L (22.0-26.0); Arterial MetHb 0.1 % (0.0-1.5); Arterial Total Hemglobin 10.4 g/dl (12.0-18.0); MODE VENT - AC
--- NOTE | 2016-09-19 08:44 | RADRPT ---
PROCEDURE: XR Chest. CLINICAL INDICATION: Shortness of breath. TECHNIQUE: Single frontal view. COMPARISON: 09/18/2016. FINDINGS: There is a tunneled right internal jugular vein dialysis catheter in satisfactory position with the tip in the upper right atrium. The endotracheal tube and nasogastric tube and right arm PICC line r emain in satisfactory position. Pulmonary edema and moderate right pleural effusion are unchanged. There is no left pleural effusion. The heart is mildly enlarged. There is no pneumothorax. IMPRESSION: 1. No change from 09/18/2016. RPTAT: QQ .Aldo Ramirez MD, MD Date Time Electronically viewed and signed by .Aldo Ramirez MD, MD on 09/19/2016 08:44 .R/
[2016-09-19] MEDS: FERROUS GLUCONATE (EC) 325 MG TAB PO SCH ×2 (08:51→20:26)
[2016-09-19] MEDS: SODIUM HYPOCHLORITE 0.125% 473 ML BTL IRR SCH (09:00)
[2016-09-19] MEDS: COLISTIMETHATE (25 MG/ML INHAL SYG) NEB SCH ×2 (09:26→20:44)
--- NOTE | 2016-09-19 09:53 | PN ---
DATE: 09/19/2016 CARDIOLOGY FOLLOWUP SUBJECTIVE: Discussed with the staff. Rhythm strip was reviewed. The patient remains in atrial fi brillation, but had episodes of marked bradycardia overnight. He denies any chest pain or pressure to me. He had failed CPAP last night. It is being tried again today. He denies any palpitation. There is no syncope, no presyncope. Discussed with the staff overnight shift as well. MEDICATIONS: Reviewed. PHYSICAL EXAMINATION: VITAL SIGNS: Temperature 98.6, heart rate of 73, blood pressure of 93/60, respiratory rate of 20, s aturating 98% on 40% on the vent. Normocephalic, atraumatic, morbidly obese gentleman. EYES: Pupils equal, round. Oropharynx status post NG tube in place. Status post intubation on the vent. CARDIOVASCULAR: Irregularly irregular, systolic murmur. PULMONARY: With diffuse rhonchi. GASTROINTESTINAL: Soft, obese, nontender. EXTREMITIES: Positive lower extremity edema, dressing. NEUROLOGIC: Awake, responds appropriately. PSYCHIATRIC: Appears to be calm and very pleasant. LABORATORY: Shows sodium 138, potassium 3.9, BUN of 49, creatinine 3.46, glucose of 73. WBC of 9.7 , hemoglobin 8.8, platelets of 282. ABG done last night shows pH of 7.38, pCO2 of 48, pO2 of 67. ASSESSMENT AND PLAN: 1. Hypoxemia and hypercapnic respiratory failure status post intubation on the vent. 2. Atrial fibrillation, intermittently low ventricular response. 3. Renal failure, acute on chronic, dialysis now. 4. Congestive heart failure and fluid overload secondary to diastolic dysfunction. 5. History of previous gastrointestinal bleed per family's report, currently OB guaiac stools have been negative x2. More has been ordered. 6. Severe anemia. 7. Status post sepsis. 8. Pleural effusion, status post thoracentesis. 9. History of hypertension, currently stable on the low side. RECOMMENDATIONS: Hemodialysis will be continued and managed as per renal recommendations. Continue the vent support. Weaning as tolerated. CPAP will be tried again. I have discussed anticoagulati on with the family. We will hold off for now until the patient's respiratory status has been determ ined to see if the patient needs to be trached or if he needs to be extubated. Also active GI bleed. I will discontinue the metoprolol now that the heart rate has been on the low side. Will c ontinue to monitor him on telemetry. ICU care will be continued. More than 38 minutes of critical care time was spent managing this patient excluding any procedures. Dictated By: GARDENIA NELSON MD AV/GREGORY Conf#: [id number] DID#: [id number] CC: GIUSEPPE BREAUX PMP CERTIFIED PROJECT MANAGER;*EndCC*
--- NOTE | 2016-09-19 11:38 | PN ---
Date/Time of Note Date/Time of Note DATE: 09/19/16 TIME: 11:33 Assessment/Plan VTE Prophylaxis VTE Prophylaxis Intervention: contraindicated Lines/Catheters IV [facility] Type ([facility] PICC Line Urinary Cath still in place: Yes Assessment/Plan Chief Complaint/Hosp Course Assessment and plan 1. Left great toe osteomyelitis. Patient is status post evaluation by vascular consult. Podiatry following for left foot wound. Continue with antibiotics per ID. 2. Acute on chronic respiratory failure, hypoxic and hypercapnic. S/P intubation on 09/06/2016 because of worsening respiratory distress. Still with pulmonary congestion. Continue on dialysis. Pulmonology following. Provide with bronchodilators . Continue daily assessment for vent liberation 3. Ventilator associated pneumonia. Sputum culture positive for Acinetobacter baumannii. Continue aspiration precautions. Antibiotics per ID 4. Pulmonary hypertension. Continue supplemental oxygen. 5. Acute on chronic kidney disease. The patient was newly started on hemodialysis. Nephrology following. Monitor renal panel 6. Congestive heart failure exacerbation. Acute on chronic diastolic dysfunction. Continue hemodialysis as per nephrology. 7. Type 2 diabetes mellitus. Hemoglobin A1c 5.8. Continue sliding scale insulin. Adjust as needed 8. Essential hypertension. Continue antihypertensives. 9. Atrial fibrillation. Rate controlled. Cardiology following. Therapeutic anticoagulation will be deferred to cardiology. 10. Dyslipidemia. Continue statins. 11. Gout. Continue allopurinol. 12. History of Major depression. We'll continue Lyrica once able to tolerate oral intake 13. Morbid obesity 14. Fluid, electrolytes, and nutrition. Continue NGT feedings. 15. Deep vein thrombosis prophylaxis. On hold for now due to anemia 16. Gastrointestinal prophylaxis. Histamine 2 blockers. Disposition and plan: Plan for dialysis today. CPAP trial after dialysis. Follow -up ABG Discussed plan of care with Critical care time: 30 minutes Problems: Subjective 24 Hr Interval Summary Free Text/Dictation Remains intubated. Off sedation. No apparent distress noted. RN at bedside Exam/Review of Systems Vital Signs Vitals Vital Signs Date Time Temp Pulse Resp B/P Pulse Ox O2 Delivery O2 Flow Rate FiO2 09/19/16 11:00 73 19 98/60 100 Mechanical Ventilator 09/19/16 08:15 40 09/19/16 08:00 98.3 Intake and Output 09/18/16 09/18/16 09/19/16 14:59 22:59 06:59 Intake Total 1060 ml 630 ml 350 ml Output Total 3500 ml 0 ml 63 ml Balance -2440 ml 630 ml 287 ml Exam General: Obese, remains intubated, no apparent distress Eyes: pupils equal round, Anicteric sclera Neck: Supple nontender, no JVD Cardiac: Regular rate. Slight murmur auscultated Pulmonary: Rales auscultated bilaterally GI: Obese, bowel sounds active Extremities: Bilateral lower extremity edema Skin: Surgical site of lower extremity clean dry and intact Neurologic: Intubated, alert to person/place/situation Results Result Diagram: 09/19/16 0550 09/19/16 0550 Results 24 hrs Laboratory Tests Test 09/18/16 13:39 09/18/16 17:48 09/18/16 18:02 09/18/16 21:49 Bedside Glucose 121 94 88 Arterial Blood HCO3 27.9 H Arterial Blood Base Excess 2.3 Arterial Blood Oxygen Saturation 92.4 L Khoi Test ACCEPTAB Arterial Blood Gas Puncture Site Left Radial Arterial Blood Carboxyhemoglobin 0.2 Arterial Blood Date Drawn 09/18/2016 6:15:58 PM Arterial Blood Methemoglobin 0.1 Arterial Blood pCO2 (Temp correct) 48.0 H Arterial Blood pH (Temp corrected) 7.382 Arterial Blood pO2 (Temp corrected) 67.1 L Blood Gas A-a O2 Differential 235.4 H Blood Gas Actual Respiration Rate 26 Blood Gas Low PEEP Setting 5.0 Blood Gas Modality VENT - CPAP Blood Gas Notified Time 09/18/2016 6:26:14 PM Blood Gas Notified Whom AT Blood Gas Pressure Support 10 Blood Gas Specimen Source Blood arterial Blood Gas Temperature 37.0 FiO2 50.0 Oxyhemoglobin Percent 92.1 L Total Hemoglobin 10.4 L Test 09/19/16 00:15 09/19/16 05:50 09/19/16 06:33 09/19/16 07:00 Bedside Glucose 83 79 Anion Gap 15 Basophils # 0.0 Basophils % 0.5 Blood Morphology Comment Blood Urea Nitrogen 49 #H Calcium Level 7.9 L Carbon Dioxide Level 29 Chloride Level 98 Creatinine 3.46 H Eosinophils # 0.5 Eosinophils % 4.9 Glucose Level 73 Hematocrit 26.8 L Hemoglobin 8.8 L Lymphocytes # 0.9 Lymphocytes % 9.1 L Mean Corpuscular Hemoglobin 25.1 L Mean Corpuscular Hemoglobin Concent 32.7 Mean Corpuscular Volume 76.6 L Mean Platelet Volume 8.8 Monocytes # 0.6 Monocytes % 6.1 Neutrophils # 7.7 H Neutrophils % 79.4 H Nucleated Red Blood Cells # 0.0 Nucleated Red Blood Cells % 0.0 Platelet Count 282 Potassium Level 3.9 Red Blood Count 3.49 L Red Cell Distribution Width 20.9 H Sodium Level 138 White Blood Count 9.7 Arterial Blood HCO3 26.2 H Arterial Blood Base Excess 1.3 Arterial Blood Oxygen Saturation 94.5 L Khoi Test ACCEPTAB Arterial Blood Gas Puncture Site Left Radial Arterial Blood Carboxyhemoglobin 0.6 Arterial Blood Date Drawn 09/19/2016 8:00:09 AM Arterial Blood Methemoglobin 0.1 Arterial Blood pCO2 (Temp correct) 42.7 Arterial Blood pH (Temp corrected) 7.406 Arterial Blood pO2 (Temp corrected) 73.3 L Blood Gas A-a O2 Differential 162.8 H Blood Gas Actual Respiration Rate 19 Blood Gas Low PEEP Setting 5.0 Blood Gas Modality VENT - AC Blood Gas Notified Time 09/19/2016 8:20:54 AM Blood Gas Notified Whom JLD Blood Gas Respiration Rate 18.0 Blood Gas Specimen Source Blood arterial Blood Gas Temperature 37.0 Blood Gas Tidal Volume 600.0 FiO2 40.0 Oxyhemoglobin Percent 93.8 Total Hemoglobin 10.4 L Medications Medications Current Medications Morphine Sulfate (morphine) 2 mg Q4H PRN IV SEVERE PAIN LEVEL 7-10 Last administered on 09/17/16 02:04; Admin Dose 2 MG; Start 08/13/16 at 17:30 Fish Oil (Fish Oil) 1,000 mg DAILY PO Last administered on 09/19/16 08:19; Admin Dose 1,000 MG; Start 08/14/16 at 09:00 Miscellaneous Information 1 ea NOTE XX ; Start 08/13/16 at 18:00 Glucose (Glutose) 15 gm Q15M PRN PO DECREASED GLUCOSE; Start 08/13/16 at 18:00 Glucose (Glutose) 22.5 gm Q15M PRN PO DECREASED GLUCOSE; Start 08/13/16 at 18: 00 Dextrose (D50w Syringe) 25 ml Q15M PRN IV DECREASED GLUCOSE Last administered on 09/10/16at 09:18; Admin Dose 25 ML; Start 08/13/16 at 18:00 Dextrose (D50w Syringe) 50 ml Q15M PRN IV DECREASED GLUCOSE; Start 08/13/16 at 18:00 Glucagon (Glucagen) 1 mg Q15M PRN IM DECREASED GLUCOSE; Start 08/13/16 at 18: 00 Glucose (Glutose) 15 gm Q15M PRN BUCCAL DECREASED GLUCOSE; Start 08/13/16 at 18:00 Sodium Hypochlorite (Dakin'S (09/19 Strength)) 1 applic DAILY IRR Last administered on 09/19/16 09:00; Admin Dose 1 APPLIC; Start 08/13/16 at 20:00 IV Flush (NS 10 ml) 10 ml PRN PRN IV IV PTOTOCOL; Start 08/14/16 at 17:00 Ondansetron HCl (Zofran Inj) 4 mg Q4H PRN IV NAUSEA AND/OR VOMITING; Start 08/16/16 at 12:30 Phenol 1 lozenge 1 lozenge Q1H PRN MT DRY MOUTH Last administered on 08/20/16at 21:28; Admin Dose 1 LOZENGE; Start 08/20/16 at 20:30 Norepinephrine/ Dextrose (Levophed/D5W) 500 ml @ 1.87 mls/hr TITRATE IV ; Start 09/09/16 at 08:00 Lorazepam (Ativan) 2 mg Q4H PRN IV anxiety Last administered on 09/19/16 01:34 ; Admin Dose 2 MG; Start 09/09/16 at 10:30 Heparin Sodium (Porcine) (Heparin (5000 Units/0.5 ml)) 5,000 unit Q8 SC Last administered on 09/19/16 06:35; Admin Dose 5,000 UNIT; Start 09/09/16 at 22:00 Insulin Glargine 10 unit 10 unit HS SC Last administered on 09/18/16 21:54; Admin Dose 10 UNIT; Start 09/10/16 at 22:00 Colistimethate Sodium/Sodium Chloride (Coly-Mycin/NS) 100 ml @ 50 mls/hr Q24H IVPB Last administered on 09/18/16 17:31; Admin Dose 50 MLS/HR; Start at 16:00 Acetylcysteine (Nac) 600 mg BID GTB Last administered on 09/19/16 08:17; Admin Dose 600 MG; Start 09/12/16 at 09:00 Allopurinol (Zyloprim) 100 mg DAILY GTB Last administered on 09/19/16 08:18; Admin Dose 100 MG; Start 09/12/16 at 09:00 Ascorbic Acid (Vitamin C) 500 mg DAILY GTB Last administered on 09/19/16 08:18 ; Admin Dose 500 MG; Start 09/12/16 at 09:00 Atorvastatin Calcium (Lipitor) 10 mg QHS GTB Last administered on 09/18/16 21: 50; Admin Dose 10 MG; Start 09/12/16 at 21:00 Cholecalciferol (Vitamin D) 1,000 unit DAILY GTB Last administered on 09/19/16 08:18; Admin Dose 1,000 UNIT; Start 09/12/16 at 09:00 Diphenhydramine HCl (Benadryl) 25 mg Q6H PRN GTB ITCHING; Start 09/12/16 at 08 :30 Famotidine (Pepcid) 20 mg DAILY GTB Last administered on 09/19/16 08:18; Admin Dose 20 MG; Start 09/12/16 at 09:00 Ferrous Sulfate (Feosol Liquid Cup) 300 mg BID GTB Last administered on 08:17; Admin Dose 300 MG; Start 09/12/16 at 09:00 Fluconazole (Diflucan) 100 mg DAILY GTB Last administered on 09/19/16 08:17; Admin Dose 100 MG; Start 09/12/16 at 09:00 Fluoxetine HCl (Prozac) 20 mg DAILY GTB Last administered on 09/19/16 08:18; Admin Dose 20 MG; Start 09/12/16 at 10:00 Lactobacillus Acidoph/Bulgaricus (Floranex) 1 tab TID GTB Last administered on 09/19/16 08:17; Admin Dose 1 TAB; Start 09/12/16 at 09:00 Pyridoxine HCl (Vitamin B6) 100 mg DAILY GTB Last administered on 09/19/16 08: 18; Admin Dose 100 MG; Start 09/12/16 at 09:00 Vitamin E (Vitamin E) 400 units DAILY GTB Last administered on 09/19/16 08:18; Admin Dose 400 UNITS; Start 09/12/16 at 10:00 Aspirin (Aspirin) 81 mg DAILY GTB Last administered on 09/19/16 08:17; Admin Dose 81 MG; Start 09/12/16 at 09:00 Acetaminophen (Tylenol Liquid) 650 mg Q6H PRN GTB PAIN 1-3 OR TEMP; Start at 08:30 Acetaminophen/ Hydrocodone Bitart ([place] (5/325)) 1 tab Q6H PRN GTB MODERATE PAIN LEVEL 4-6; Start 09/12/16 at 11:30 Acetaminophen/ Hydrocodone Bitart ([place] (5/325)) 2 tab Q6H PRN GTB MODERATE PAIN LEVEL 4-6; Start 09/12/16 at 13:00 Lorazepam (Ativan) 1 mg Q6 PRN GTB ANXIETY; Start 09/12/16 at 08:30 Lorazepam (Ativan) 1 mg HS PRN GTB ANXIETY, HELP WITH SLEEP Last administered on 09/17/16 23:40; Admin Dose 1 MG; Start 09/12/16 at 08:30 Simethicone (Mylicon) 80 mg Q6H PRN GTB INTESTINAL SPASMS/CRAMPING; Start at 11:30 Zolpidem Tartrate (Ambien) 10 mg HS PRN GTB INSOMNIA Last administered on 21:16; Admin Dose 10 MG; Start 09/12/16 at 08:30 Docusate Sodium 100 mg 100 mg Q12 PRN GTB CONSTIPATION; Start 09/12/16 at 08: 30 Propofol 100 ml @ 3.915 mls/ hr TITRATE PRN IV maintain rass -2 to -3 Last administered on 09/17/16 13:42; Admin Dose 7.83 MLS/HR; Start 09/13/16 at 19:30 Vancomycin HCl/ Sodium Chloride (Vancocin/NS) 500 ml @ 125 mls/hr Q72H IVPB Last administered on 09/18/16 14:30; Admin Dose 125 MLS/HR; Start 09/15/16 at 12:00 Insulin Aspart (Novolog Insulin Pen) NOVOLOG *MILD* ALGORI... Q6 SC ; Start 09/16 at 12:00 Dimethicone (Blistex Lip Roslyn) 1 applic Q2H PRN TOP CHAPPED LIPS; Start at 16:30 Ferrous Gluconate (Fergon) 325 mg BID PO Last administered on 09/18/16t 21:50; Admin Dose 325 MG; Start 09/17/16 at 21:00 GIUSEPPE BREAUX Sep 19, 2016 11:37
--- NOTE | 2016-09-19 11:43 | PN ---
DATE: 09/19/2016 INFECTIOUS DISEASE PROGRESS NOTE SUBJECTIVE: No changes overnight, no fevers. The patient is lying comfortably in bed. He opens hi s eyes to stimulation and follows simple commands. No fevers. INDWELLINGS: Endotracheal tube, orogastric tube, PICC line, right subclavian PermCath. LABORATORY DATA: WBC 9.7, H and H 8.8 and 26.8, platelets 282, neutrophils 79.4, BUN 49, creatinine 3.46. DIAGNOSTICS: Chest x-ray this morning revealed no change. ANTIMICROBIALS: 1. Vancomycin. 2. Colistin. 3. Fluconazole. PHYSICAL EXAMINATION: GENERAL: Morbidly obese, middle-aged white man who is in no distress. HEENT: Head atraumatic, normocephalic. Sclerae anicteric. Buccal mucosa dry. NECK: Supple, trachea midline. CHEST: Rise symmetrical. Breath sounds diminished to bases. HEART: S1, S2. ABDOMEN: Soft, bowel sounds present. EXTREMITIES: Without cyanosis. Bilateral lower extremities Patrick wrapped. ASSESSMENT: 1. Status post Staphylococcus aureus septicemia. 2. Acute on chronic respiratory failure secondary to pneumonia and pulmonary edema. 3. Left great toe osteomyelitis, completing treatment. 4. Acute on chronic kidney disease, hemodialysis dependent. 5. Coronary artery disease. 6. Diabetes. 7. Morbid obesity. PLAN: The patient remains stable, completing antibiotics. Continue present care. Vent management per pulmonary. Dictated By: JAMEY VAZQUEZ AUDIO RECORDING ENGINEER for DONAVAN HALLMAN/NTS Conf#: [id number] DID#: [id number]
--- NOTE | 2016-09-19 15:25 | CONS ---
Date/Time of Note Date/Time of Note DATE: 09/19/16 TIME: 15:23 Consult Date/Type/Reason Admit Date/Time Aug 13, 2016 at 16:30 Initial Consult Date 08/13/16 Type of Consultation: Pulm Ordering Provider: KELLEN MEDINA MD Subjective Awake alert, having HD Objective Vital Signs Date Time Temp Pulse Resp B/P Pulse Ox O2 Delivery O2 Flow Rate FiO2 09/19/16 14:00 70 13 101/75 96 Mechanical Ventilator 09/19/16 12:00 98.4 09/19/16 11:30 40 Intake and Output 09/18/16 09/18/16 09/19/16 15:00 23:00 07:00 Intake Total 1040 ml 600 ml 400 ml Output Total 3500 ml 0 ml 63 ml Balance -2460 ml 600 ml 337 ml PHYSICAL EXAMINATION GENERAL: Elderly gentleman, intubated on mechanical ventilation, opens eyes comfortable generalized weakness VITAL SIGNS: see below. HEENT: Pupils equal, round, and reactive to light. CARDIAC: S1, S2, tachycardia. CHEST: Diminished air entry bilaterally. ABDOMEN: Mildly distended. No bowel sounds. EXTREMITIES: No cyanosis, clubbing, edema +2 NEUROLOGIC: No focal deficits. Results/Medications Result Diagram: 09/19/16 0550 09/19/16 0550 Results 24 hrs Laboratory Tests Test 09/18/16 17:48 09/18/16 18:02 09/18/16 21:49 09/19/16 00:15 Bedside Glucose 94 88 83 Arterial Blood HCO3 27.9 H Arterial Blood Base Excess 2.3 Arterial Blood Oxygen Saturation 92.4 L Khoi Test ACCEPTAB Arterial Blood Gas Puncture Site Left Radial Arterial Blood Carboxyhemoglobin 0.2 Arterial Blood Date Drawn 09/18/2016 6:15:58 PM Arterial Blood Methemoglobin 0.1 Arterial Blood pCO2 (Temp correct) 48.0 H Arterial Blood pH (Temp corrected) 7.382 Arterial Blood pO2 (Temp corrected) 67.1 L Blood Gas A-a O2 Differential 235.4 H Blood Gas Actual Respiration Rate 26 Blood Gas Low PEEP Setting 5.0 Blood Gas Modality VENT - CPAP Blood Gas Notified Time 09/18/2016 6:26:14 PM Blood Gas Notified Whom AT Blood Gas Pressure Support 10 Blood Gas Specimen Source Blood arterial Blood Gas Temperature 37.0 FiO2 50.0 Oxyhemoglobin Percent 92.1 L Total Hemoglobin 10.4 L Test 09/19/16 05:50 09/19/16 06:33 09/19/16 07:00 09/19/16 12:18 Anion Gap 15 Basophils # 0.0 Basophils % 0.5 Blood Morphology Comment Blood Urea Nitrogen 49 #H Calcium Level 7.9 L Carbon Dioxide Level 29 Chloride Level 98 Creatinine 3.46 H Eosinophils # 0.5 Eosinophils % 4.9 Glucose Level 73 Hematocrit 26.8 L Hemoglobin 8.8 L Lymphocytes # 0.9 Lymphocytes % 9.1 L Mean Corpuscular Hemoglobin 25.1 L Mean Corpuscular Hemoglobin Concent 32.7 Mean Corpuscular Volume 76.6 L Mean Platelet Volume 8.8 Monocytes # 0.6 Monocytes % 6.1 Neutrophils # 7.7 H Neutrophils % 79.4 H Nucleated Red Blood Cells # 0.0 Nucleated Red Blood Cells % 0.0 Platelet Count 282 Potassium Level 3.9 Red Blood Count 3.49 L Red Cell Distribution Width 20.9 H Sodium Level 138 White Blood Count 9.7 Bedside Glucose 79 72 Arterial Blood HCO3 26.2 H Arterial Blood Base Excess 1.3 Arterial Blood Oxygen Saturation 94.5 L Khoi Test ACCEPTAB Arterial Blood Gas Puncture Site Left Radial Arterial Blood Carboxyhemoglobin 0.6 Arterial Blood Date Drawn 09/19/2016 8:00:09 AM Arterial Blood Methemoglobin 0.1 Arterial Blood pCO2 (Temp correct) 42.7 Arterial Blood pH (Temp corrected) 7.406 Arterial Blood pO2 (Temp corrected) 73.3 L Blood Gas A-a O2 Differential 162.8 H Blood Gas Actual Respiration Rate 19 Blood Gas Low PEEP Setting 5.0 Blood Gas Modality VENT - AC Blood Gas Notified Time 09/19/2016 8:20:54 AM Blood Gas Notified Whom JLD Blood Gas Respiration Rate 18.0 Blood Gas Specimen Source Blood arterial Blood Gas Temperature 37.0 Blood Gas Tidal Volume 600.0 FiO2 40.0 Oxyhemoglobin Percent 93.8 Total Hemoglobin 10.4 L Medications Current Medications Morphine Sulfate (morphine) 2 mg Q4H PRN IV SEVERE PAIN LEVEL 7-10 Last administered on 09/17/16 02:04; Admin Dose 2 MG; Start 08/13/16 at 17:30 Fish Oil (Fish Oil) 1,000 mg DAILY PO Last administered on 09/19/16 08:19; Admin Dose 1,000 MG; Start 08/14/16 at 09:00 Miscellaneous Information 1 ea NOTE XX ; Start 08/13/16 at 18:00 Glucose (Glutose) 15 gm Q15M PRN PO DECREASED GLUCOSE; Start 08/13/16 at 18:00 Glucose (Glutose) 22.5 gm Q15M PRN PO DECREASED GLUCOSE; Start 08/13/16 at 18: 00 Dextrose (D50w Syringe) 25 ml Q15M PRN IV DECREASED GLUCOSE Last administered on 09/10/16at 09:18; Admin Dose 25 ML; Start 08/13/16 at 18:00 Dextrose (D50w Syringe) 50 ml Q15M PRN IV DECREASED GLUCOSE; Start 08/13/16 at 18:00 Glucagon (Glucagen) 1 mg Q15M PRN IM DECREASED GLUCOSE; Start 08/13/16 at 18: 00 Glucose (Glutose) 15 gm Q15M PRN BUCCAL DECREASED GLUCOSE; Start 08/13/16 at 18:00 Sodium Hypochlorite (Dakin'S (09/19 Strength)) 1 applic DAILY IRR Last administered on 09/19/16 09:00; Admin Dose 1 APPLIC; Start 08/13/16 at 20:00 IV Flush (NS 10 ml) 10 ml PRN PRN IV IV PTOTOCOL; Start 08/14/16 at 17:00 Ondansetron HCl (Zofran Inj) 4 mg Q4H PRN IV NAUSEA AND/OR VOMITING; Start 08/16/16 at 12:30 Phenol 1 lozenge 1 lozenge Q1H PRN MT DRY MOUTH Last administered on 08/20/16at 21:28; Admin Dose 1 LOZENGE; Start 08/20/16 at 20:30 Norepinephrine/ Dextrose (Levophed/D5W) 500 ml @ 1.87 mls/hr TITRATE IV ; Start 09/09/16 at 08:00 Lorazepam (Ativan) 2 mg Q4H PRN IV anxiety Last administered on 09/19/16 01:34 ; Admin Dose 2 MG; Start 09/09/16 at 10:30 Heparin Sodium (Porcine) (Heparin (5000 Units/0.5 ml)) 5,000 unit Q8 SC Last administered on 09/19/16 14:25; Admin Dose 5,000 UNIT; Start 09/09/16 at 22:00 Insulin Glargine 10 unit 10 unit HS SC Last administered on 09/18/16 21:54; Admin Dose 10 UNIT; Start 09/10/16 at 22:00 Colistimethate Sodium/Sodium Chloride (Coly-Mycin/NS) 100 ml @ 50 mls/hr Q24H IVPB Last administered on 09/18/16 17:31; Admin Dose 50 MLS/HR; Start at 16:00 Acetylcysteine (Nac) 600 mg BID GTB Last administered on 09/19/16 08:17; Admin Dose 600 MG; Start 09/12/16 at 09:00 Allopurinol (Zyloprim) 100 mg DAILY GTB Last administered on 09/19/16 08:18; Admin Dose 100 MG; Start 09/12/16 at 09:00 Ascorbic Acid (Vitamin C) 500 mg DAILY GTB Last administered on 09/19/16 08:18 ; Admin Dose 500 MG; Start 09/12/16 at 09:00 Atorvastatin Calcium (Lipitor) 10 mg QHS GTB Last administered on 09/18/16 21: 50; Admin Dose 10 MG; Start 09/12/16 at 21:00 Cholecalciferol (Vitamin D) 1,000 unit DAILY GTB Last administered on 09/19/16 08:18; Admin Dose 1,000 UNIT; Start 09/12/16 at 09:00 Diphenhydramine HCl (Benadryl) 25 mg Q6H PRN GTB ITCHING; Start 09/12/16 at 08 :30 Famotidine (Pepcid) 20 mg DAILY GTB Last administered on 09/19/16 08:18; Admin Dose 20 MG; Start 09/12/16 at 09:00 Ferrous Sulfate (Feosol Liquid Cup) 300 mg BID GTB Last administered on 08:17; Admin Dose 300 MG; Start 09/12/16 at 09:00 Fluconazole (Diflucan) 100 mg DAILY GTB Last administered on 09/19/16 08:17; Admin Dose 100 MG; Start 09/12/16 at 09:00 Fluoxetine HCl (Prozac) 20 mg DAILY GTB Last administered on 09/19/16 08:18; Admin Dose 20 MG; Start 09/12/16 at 10:00 Lactobacillus Acidoph/Bulgaricus (Floranex) 1 tab TID GTB Last administered on 09/19/16 12:17; Admin Dose 1 TAB; Start 09/12/16 at 09:00 Pyridoxine HCl (Vitamin B6) 100 mg DAILY GTB Last administered on 09/19/16 08: 18; Admin Dose 100 MG; Start 09/12/16 at 09:00 Vitamin E (Vitamin E) 400 units DAILY GTB Last administered on 09/19/16 08:18; Admin Dose 400 UNITS; Start 09/12/16 at 10:00 Aspirin (Aspirin) 81 mg DAILY GTB Last administered on 09/19/16 08:17; Admin Dose 81 MG; Start 09/12/16 at 09:00 Acetaminophen (Tylenol Liquid) 650 mg Q6H PRN GTB PAIN 1-3 OR TEMP; Start at 08:30 Acetaminophen/ Hydrocodone Bitart ([place] (5/325)) 1 tab Q6H PRN GTB MODERATE PAIN LEVEL 4-6; Start 09/12/16 at 11:30 Acetaminophen/ Hydrocodone Bitart ([place] (5/325)) 2 tab Q6H PRN GTB MODERATE PAIN LEVEL 4-6; Start 09/12/16 at 13:00 Lorazepam (Ativan) 1 mg Q6 PRN GTB ANXIETY; Start 09/12/16 at 08:30 Lorazepam (Ativan) 1 mg HS PRN GTB ANXIETY, HELP WITH SLEEP Last administered on 09/17/16 23:40; Admin Dose 1 MG; Start 09/12/16 at 08:30 Simethicone (Mylicon) 80 mg Q6H PRN GTB INTESTINAL SPASMS/CRAMPING; Start at 11:30 Zolpidem Tartrate (Ambien) 10 mg HS PRN GTB INSOMNIA Last administered on 21:16; Admin Dose 10 MG; Start 09/12/16 at 08:30 Docusate Sodium 100 mg 100 mg Q12 PRN GTB CONSTIPATION; Start 09/12/16 at 08: 30 Propofol 100 ml @ 3.915 mls/ hr TITRATE PRN IV maintain rass -2 to -3 Last administered on 1/2/17at 13:42; Admin Dose 7.83 MLS/HR; Start 09/13/16 at 19:30 Vancomycin HCl/ Sodium Chloride (Vancocin/NS) 500 ml @ 125 mls/hr Q72H IVPB Last administered on 09/18/16 14:30; Admin Dose 125 MLS/HR; Start 09/15/16 at 12:00 Insulin Aspart (Novolog Insulin Pen) NOVOLOG *MILD* ALGORI... Q6 SC ; Start 09/16 at 12:00 Dimethicone (Blistex Lip [place]) 1 applic Q2H PRN TOP CHAPPED LIPS; Start at 16:30 Ferrous Gluconate (Fergon) 325 mg BID PO Last administered on 09/18/16 21:50; Admin Dose 325 MG; Start 09/17/16 at 21:00 Assessment/Plan Chief Complaint/Hosp Course Assessment and plan 1. . Acute on chronic respiratory failure, hypoxic and hypercapnic. S/P intubation on 09/06/2016 because of worsening respiratory distress. Continue mechanical ventilation not for weaning today. Significant pulmonary edema with underlying infiltrates. Repeat CPAP 2. Bilateral pneumonia with hypoxemic respiratory failure. Continue infectious disease recommendations. May have component of pneumonitis. Will consider steroids however risk of worsening infection with elevated BGs 3..Pulmonary hypertension. Continue supplemental oxygen. 4. End-stage renal failure now on hemodialysis. Evidence of primary edema will require continued volume removal 5. Dysphagia continue tube feeding 6. Atrial fibrillation currently rate controlled Disposition continue current level of care Problems: EDNA BUSTILLO MD, [facility] Sep 19, 2016 15:25
[2016-09-19] MEDS: COLISTIMETHATE 100 MG in SOD CHLORIDE 0.9% 100 ML IVPB SCH (16:04)
--- NOTE | 2016-09-19 17:40 | CONS ---
Date/Time of Note Date/Time of Note DATE: 09/19/16 TIME: 17:39 Assessment/Plan Assessment/Plan Additional Assessment/Plan 60 yo male with 1) Respiratory Failure 2) HCAP 3) LORNA on CKD, Currently on HD 4) Volume Overload, Anasarca 5) Pulm HTN 6) Morbid Obesity 7) Bilateral lower extremities acute on chronic cellulitis with left toe osteomyelitis. 8) Status post oxacillin-sensitive Staphylococcus aureus septicemia. S/p Dry UF -2.4L Removed Tolerated well. Cont current treatment and plan Possible HD tomorrow. Consultation Date/Type/Reason Admit Date/Time Aug 13, 2016 at 16:30 Initial Consult Date 08/13/16 Type of Consultation: Nephrology Referring Provider: KELLEN MEDINA MD 24 HR Interval Summary Free Text/Dictation S/p Dry UF today 2.4L removed Subjective hx not possible: pt critical status Constitutional: requiring O2 Exam/Review of Systems Vital Signs Vitals Vital Signs Date Time Temp Pulse Resp B/P Pulse Ox O2 Delivery O2 Flow Rate FiO2 09/19/16 17:06 84 25 94 40 09/19/16 14:00 101/75 Mechanical Ventilator 09/19/16 12:00 98.4 Intake and Output 09/18/16 09/18/16 09/19/16 15:00 23:00 07:00 Intake Total 1040 ml 600 ml 400 ml Output Total 3500 ml 0 ml 63 ml Balance -2460 ml 600 ml 337 ml Exam Constitutional: No distress ENMT: intubated, mucosa pink and moist Respiratory: crackles/rales Cardiovascular: edema Gastrointestinal: soft 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: No lethargic Results Result Diagram: 09/19/16 0550 09/19/16 0550 Results 24 hrs Laboratory Tests Test 09/18/16 17:48 09/18/16 18:02 09/18/16 21:49 09/19/16 00:15 Bedside Glucose 94 88 83 Arterial Blood HCO3 27.9 H Arterial Blood Base Excess 2.3 Arterial Blood Oxygen Saturation 92.4 L Khoi Test ACCEPTAB Arterial Blood Gas Puncture Site Left Radial Arterial Blood Carboxyhemoglobin 0.2 Arterial Blood Date Drawn 09/18/2016 6:15:58 PM Arterial Blood Methemoglobin 0.1 Arterial Blood pCO2 (Temp correct) 48.0 H Arterial Blood pH (Temp corrected) 7.382 Arterial Blood pO2 (Temp corrected) 67.1 L Blood Gas A-a O2 Differential 235.4 H Blood Gas Actual Respiration Rate 26 Blood Gas Low PEEP Setting 5.0 Blood Gas Modality VENT - CPAP Blood Gas Notified Time 09/18/2016 6:26:14 PM Blood Gas Notified Whom AT Blood Gas Pressure Support 10 Blood Gas Specimen Source Blood arterial Blood Gas Temperature 37.0 FiO2 50.0 Oxyhemoglobin Percent 92.1 L Total Hemoglobin 10.4 L Test 09/19/16 05:50 09/19/16 06:33 09/19/16 07:00 09/19/16 12:18 Anion Gap 15 Basophils # 0.0 Basophils % 0.5 Blood Morphology Comment Blood Urea Nitrogen 49 #H Calcium Level 7.9 L Carbon Dioxide Level 29 Chloride Level 98 Creatinine 3.46 H Eosinophils # 0.5 Eosinophils % 4.9 Glucose Level 73 Hematocrit 26.8 L Hemoglobin 8.8 L Lymphocytes # 0.9 Lymphocytes % 9.1 L Mean Corpuscular Hemoglobin 25.1 L Mean Corpuscular Hemoglobin Concent 32.7 Mean Corpuscular Volume 76.6 L Mean Platelet Volume 8.8 Monocytes # 0.6 Monocytes % 6.1 Neutrophils # 7.7 H Neutrophils % 79.4 H Nucleated Red Blood Cells # 0.0 Nucleated Red Blood Cells % 0.0 Platelet Count 282 Potassium Level 3.9 Red Blood Count 3.49 L Red Cell Distribution Width 20.9 H Sodium Level 138 White Blood Count 9.7 Bedside Glucose 79 72 Arterial Blood HCO3 26.2 H Arterial Blood Base Excess 1.3 Arterial Blood Oxygen Saturation 94.5 L Khoi Test ACCEPTAB Arterial Blood Gas Puncture Site Left Radial Arterial Blood Carboxyhemoglobin 0.6 Arterial Blood Date Drawn 09/19/2016 8:00:09 AM Arterial Blood Methemoglobin 0.1 Arterial Blood pCO2 (Temp correct) 42.7 Arterial Blood pH (Temp corrected) 7.406 Arterial Blood pO2 (Temp corrected) 73.3 L Blood Gas A-a O2 Differential 162.8 H Blood Gas Actual Respiration Rate 19 Blood Gas Low PEEP Setting 5.0 Blood Gas Modality VENT - AC Blood Gas Notified Time 09/19/2016 8:20:54 AM Blood Gas Notified Whom JLD Blood Gas Respiration Rate 18.0 Blood Gas Specimen Source Blood arterial Blood Gas Temperature 37.0 Blood Gas Tidal Volume 600.0 FiO2 40.0 Oxyhemoglobin Percent 93.8 Total Hemoglobin 10.4 L Medications Medications Current Medications Morphine Sulfate (morphine) 2 mg Q4H PRN IV SEVERE PAIN LEVEL 7-10 Last administered on 09/17/16 02:04; Admin Dose 2 MG; Start 08/13/16 at 17:30 Fish Oil (Fish Oil) 1,000 mg DAILY PO Last administered on 09/19/16 08:19; Admin Dose 1,000 MG; Start 08/14/16 at 09:00 Miscellaneous Information 1 ea NOTE XX ; Start 08/13/16 at 18:00 Glucose (Glutose) 15 gm Q15M PRN PO DECREASED GLUCOSE; Start 08/13/16 at 18:00 Glucose (Glutose) 22.5 gm Q15M PRN PO DECREASED GLUCOSE; Start 08/13/16 at 18: 00 Dextrose (D50w Syringe) 25 ml Q15M PRN IV DECREASED GLUCOSE Last administered on 09/10/16at 09:18; Admin Dose 25 ML; Start 08/13/16 at 18:00 Dextrose (D50w Syringe) 50 ml Q15M PRN IV DECREASED GLUCOSE; Start 08/13/16 at 18:00 Glucagon (Glucagen) 1 mg Q15M PRN IM DECREASED GLUCOSE; Start 08/13/16 at 18: 00 Glucose (Glutose) 15 gm Q15M PRN BUCCAL DECREASED GLUCOSE; Start 08/13/16 at 18:00 Sodium Hypochlorite (Dakin'S (1/4 Strength)) 1 applic DAILY IRR Last administered on 09/19/16 09:00; Admin Dose 1 APPLIC; Start 08/13/16 at 20:00 IV Flush (NS 10 ml) 10 ml PRN PRN IV IV PTOTOCOL; Start 08/14/16 at 17:00 Ondansetron HCl (Zofran Inj) 4 mg Q4H PRN IV NAUSEA AND/OR VOMITING; Start 08/16/16 at 12:30 Phenol 1 lozenge 1 lozenge Q1H PRN MT DRY MOUTH Last administered on 08/20/16at 21:28; Admin Dose 1 LOZENGE; Start 08/20/16 at 20:30 Norepinephrine/ Dextrose (Levophed/D5W) 500 ml @ 1.87 mls/hr TITRATE IV ; Start 09/09/16 at 08:00 Lorazepam (Ativan) 2 mg Q4H PRN IV anxiety Last administered on 09/19/16 01:34 ; Admin Dose 2 MG; Start 09/09/16 at 10:30 Heparin Sodium (Porcine) (Heparin (5000 Units/0.5 ml)) 5,000 unit Q8 SC Last administered on 09/19/16 14:25; Admin Dose 5,000 UNIT; Start 09/09/16 at 22:00 Insulin Glargine 10 unit 10 unit HS SC Last administered on 09/18/16 21:54; Admin Dose 10 UNIT; Start 09/10/16 at 22:00 Colistimethate Sodium/Sodium Chloride (Coly-Mycin/NS) 100 ml @ 50 mls/hr Q24H IVPB Last administered on 09/19/16 16:04; Admin Dose 50 MLS/HR; Start at 16:00 Acetylcysteine (Nac) 600 mg BID GTB Last administered on 09/19/16 08:17; Admin Dose 600 MG; Start 09/12/16 at 09:00 Allopurinol (Zyloprim) 100 mg DAILY GTB Last administered on 09/19/16 08:18; Admin Dose 100 MG; Start 09/12/16 at 09:00 Ascorbic Acid (Vitamin C) 500 mg DAILY GTB Last administered on 09/19/16 08:18 ; Admin Dose 500 MG; Start 09/12/16 at 09:00 Atorvastatin Calcium (Lipitor) 10 mg QHS GTB Last administered on 09/18/16 21: 50; Admin Dose 10 MG; Start 09/12/16 at 21:00 Cholecalciferol (Vitamin D) 1,000 unit DAILY GTB Last administered on 09/19/16 08:18; Admin Dose 1,000 UNIT; Start 09/12/16 at 09:00 Diphenhydramine HCl (Benadryl) 25 mg Q6H PRN GTB ITCHING; Start 09/12/16 at 08 :30 Famotidine (Pepcid) 20 mg DAILY GTB Last administered on 09/19/16 08:18; Admin Dose 20 MG; Start 09/12/16 at 09:00 Ferrous Sulfate (Feosol Liquid Cup) 300 mg BID GTB Last administered on 08:17; Admin Dose 300 MG; Start 09/12/16 at 09:00 Fluconazole (Diflucan) 100 mg DAILY GTB Last administered on 09/19/16 08:17; Admin Dose 100 MG; Start 09/12/16 at 09:00 Fluoxetine HCl (Prozac) 20 mg DAILY GTB Last administered on 09/19/16 08:18; Admin Dose 20 MG; Start 09/12/16 at 10:00 Lactobacillus Acidoph/Bulgaricus (Floranex) 1 tab TID GTB Last administered on 09/19/16 12:17; Admin Dose 1 TAB; Start 09/12/16 at 09:00 Pyridoxine HCl (Vitamin B6) 100 mg DAILY GTB Last administered on 09/19/16 08: 18; Admin Dose 100 MG; Start 09/12/16 at 09:00 Vitamin E (Vitamin E) 400 units DAILY GTB Last administered on 09/19/16 08:18; Admin Dose 400 UNITS; Start 09/12/16 at 10:00 Aspirin (Aspirin) 81 mg DAILY GTB Last administered on 09/19/16 08:17; Admin Dose 81 MG; Start 09/12/16 at 09:00 Acetaminophen (Tylenol Liquid) 650 mg Q6H PRN GTB PAIN 1-3 OR TEMP; Start at 08:30 Acetaminophen/ Hydrocodone Bitart ([place] (5/325)) 1 tab Q6H PRN GTB MODERATE PAIN LEVEL 4-6; Start 09/12/16 at 11:30 Acetaminophen/ Hydrocodone Bitart ([place] (5/325)) 2 tab Q6H PRN GTB MODERATE PAIN LEVEL 4-6; Start 09/12/16 at 13:00 Lorazepam (Ativan) 1 mg Q6 PRN GTB ANXIETY; Start 09/12/16 at 08:30 Lorazepam (Ativan) 1 mg HS PRN GTB ANXIETY, HELP WITH SLEEP Last administered on 09/17/16 23:40; Admin Dose 1 MG; Start 09/12/16 at 08:30 Simethicone (Mylicon) 80 mg Q6H PRN GTB INTESTINAL SPASMS/CRAMPING; Start at 11:30 Zolpidem Tartrate (Ambien) 10 mg HS PRN GTB INSOMNIA Last administered on 21:16; Admin Dose 10 MG; Start 09/12/16 at 08:30 Docusate Sodium 100 mg 100 mg Q12 PRN GTB CONSTIPATION; Start 09/12/16 at 08: 30 Propofol 100 ml @ 3.915 mls/ hr TITRATE PRN IV maintain rass -2 to -3 Last administered on 09/17/16 13:42; Admin Dose 7.83 MLS/HR; Start 09/13/16 at 19:30 Vancomycin HCl/ Sodium Chloride (Vancocin/NS) 500 ml @ 125 mls/hr Q72H IVPB Last administered on 09/18/16 14:30; Admin Dose 125 MLS/HR; Start 09/15/16 at 12:00 Insulin Aspart (Novolog Insulin Pen) NOVOLOG *MILD* [place]I... Q6 SC ; Start 09/16 at 12:00 Dimethicone (Blistex Lip [place]) 1 applic Q2H PRN TOP CHAPPED LIPS; Start at 16:30 Ferrous Gluconate (Fergon) 325 mg BID PO Last administered on 09/18/16 21:50; Admin Dose 325 MG; Start 09/17/16 at 21:00 DYAN FRANKLIN MD Sep 19, 2016 17:40
[2016-09-19 18:04] LABS: AADO2 Arterial 161.2 mmHg (7.0-24.0); Allen Test ACCEPTAB; Arterial Base Excess 0.6 mmol/L (-3.0-3); Arterial COHb 0.3 % (0.0-3.0); Arterial Fraction of Oxyhgb 87.8 % (93.0-99.0); Arterial HCO3 27.3 mmol/L (22.0-26.0); Arterial MetHb 0.1 % (0.0-1.5); Blood Gas PS 10; MODE VENT - CPAP
[2016-09-19] MEDS: ATORVASTATIN 10 MG TAB GTB SCH (20:26)
[2016-09-19] MEDS: ALBUTEROL/IPRATROPIUM (NEB) 3 ML AMP HHN SCH (20:44)
[2016-09-19] MEDS: INSULIN GLARGINE [LANtus] 3 ML PEN SC SCH (21:30)
[2016-09-19] MEDS: DEXTROSE 50% 50 ML SYRINGE IV PRN (23:48)
[2016-09-20] VITALS (36 sets, daily range): BP systolic 90–127; BP diastolic 58–77; PULSE 65–98; RESP 16–29
[2016-09-20] MEDS: ALBUTEROL/IPRATROPIUM (NEB) 3 ML AMP HHN SCH ×6 (00:54→20:00)
[2016-09-20] MEDS: HEPARIN 5,000 UNIT/0.5 ML SYG SC SCH ×3 (05:54→21:23)
[2016-09-20] MEDS: DEXTROSE 50% 50 ML SYRINGE IV PRN ×2 (05:55→06:28)
[2016-09-20] MEDS: INSULIN ASPART [NOVOLOG] 3 ML PEN SC SCH ×3 (06:00→17:33)
[2016-09-20] MEDS ORDERED: DEXTROSE 5% 1,000 ML IV SCH (06:00)
[2016-09-20 06:35] LABS: BASOPHIL # 0.1 10^3/ul (0.0-0.1); BASOPHILS % 0.8 % (0.0-2.0); EOSINOPHILS # 0.5 10^3/ul (0.0-0.5); EOSINOPHILS % 5.2 % (0.0-7.0); HEMATOCRIT 25.9 % (42.0-52.0); HEMOGLOBIN 8.4 g/dl (14.0-18.0); LYMPHOCYTES % 11.4 % (15.0-51.0); MEAN CORPUSCULAR HEMOGLOBIN 25.1 pg (29.0-33.0); MEAN CORPUSCULAR HGB CONC 32.3 g/dl (32.0-37.0); MEAN CORPUSCULAR VOLUME 77.7 fl (82.0-101.0); MEAN PLATELET VOLUME 8.8 fl (7.4-10.4); MONOCYTE # 0.6 10^3/ul (0.3-0.9); MONOCYTES % 6.3 % (0.0-11.0); NEUTROPHIL # 6.8 10^3/ul (1.6-7.5); NEUTROPHILS % 76.3 % (39.0-77.0); PLATELET COUNT 269 10^3/UL (140-440); RED BLOOD COUNT 3.34 10^6/ul (4.70-6.10); RED CELL DISTRIBUTION WIDTH 19.8 % (11.5-14.5); UNCORRECTED WBC 8.9 10^3/ul (4.8-10.8); WHITE BLOOD COUNT 8.9 10^3/ul (4.8-10.8)
[2016-09-20 06:40] LABS: CONDITION 1; LH ANALYZER COMMENTS 1
[2016-09-20 06:58] LABS: ALBUMIN 2.8 g/dl (3.3-4.9)
[2016-09-20 06:59] LABS: POTASSIUM 4.1 mmol/L (3.5-5.1)
[2016-09-20 07:01] LABS: ALBUMIN/GLOBULIN RATIO 0.66; CREATININE 4.32 mg/dl (0.61-1.24)
[2016-09-20 07:02] LABS: CALCIUM 8.2 mg/dl (8.4-10.2); MAGNESIUM 2.6 mg/dl (1.7-2.5)
--- NOTE | 2016-09-20 07:46 | RADRPT ---
PROCEDURE: XR Chest. CLINICAL INDICATION: Congestive heart failure TECHNIQUE: Chest AP portable. COMPARISON: 09/19/2016 FINDINGS: Right internal jugular tunneled dialysis catheter. The mediastinal structures are unremarkable. There is moderate cardiac enlargement. There is decre ase in the congestive heart failure. No consolidation is identified. There is a small right pleura l effusion. There are senescent changes of the axial skeleton. IMPRESSION: Moderate cardiac enlargement. Decrease in congestive heart failure. Small right pleural effusion RPTAT: HGDB .Jaya Vázquez MD, MD Date Time Electronically viewed and signed by .Jaya Vázquez MD, MD on 09/20/2016 07:46 .B/
[2016-09-20 07:59] LABS: AADO2 Arterial 123.8 mmHg (7.0-24.0); Allen Test ACCEPTAB; Arterial Base Excess -0.7 mmol/L (-3.0-3); Arterial COHb 0.5 % (0.0-3.0); Arterial Fraction of Oxyhgb 92.9 % (93.0-99.0); Arterial HCO3 24.7 mmol/L (22.0-26.0); Arterial MetHb 0.3 % (0.0-1.5); Arterial Total Hemglobin 9.2 g/dl (12.0-18.0); Blood Gas IEPAP 20/8; MODE MASK - BIPAP
[2016-09-20 08:01] LABS: THYROID STIMULATING HORMONE 5.38 MIU/L (0.465-4.680)
[2016-09-20] MEDS: CALCIUM CARBONATE 500 MG CHEW TAB GTB SCH ×3 (08:35→17:31)
[2016-09-20] MEDS: FISH OIL 1,000 MG CAP PO SCH (09:00)
[2016-09-20] MEDS: ALLOPURINOL 100 MG TAB GTB SCH (09:00)
[2016-09-20] MEDS: FAMOTIDINE 20 MG TAB GTB SCH (09:00)
[2016-09-20] MEDS: ACETYLCYSTEINE 600 MG CAP GTB SCH ×2 (09:00→21:21)
[2016-09-20] MEDS: ASCORBIC ACID 500 MG TAB GTB SCH (09:00)
[2016-09-20] MEDS: VITAMIN E 400 UNITS CAP GTB SCH (09:00)
[2016-09-20] MEDS: PYRIDOXINE 50 MG TAB GTB SCH (09:00)
[2016-09-20] MEDS: FERROUS SULFATE 60 MG/ML 5ML CUP GTB SCH ×2 (09:00→21:20)
[2016-09-20] MEDS: CHOLECALCIFEROL 1,000 UNIT TAB GTB SCH (09:00)
[2016-09-20] MEDS: FLUOXETINE 20 MG CAP GTB SCH (09:00)
[2016-09-20] MEDS: ASPIRIN 81 MG TAB GTB SCH (09:00)
[2016-09-20] MEDS: FERROUS GLUCONATE (EC) 325 MG TAB PO SCH ×2 (09:00→21:44)
[2016-09-20] MEDS: LACTOBACILLUS CHEW TAB GTB SCH ×3 (09:00→21:21)
[2016-09-20] MEDS: FLUCONAZOLE 100 MG TAB GTB SCH (09:00)
[2016-09-20] MEDS: SODIUM HYPOCHLORITE 0.125% 473 ML BTL IRR SCH (11:38)
--- NOTE | 2016-09-20 12:21 | PN ---
DATE: 09/20/2016 INFECTIOUS DISEASE PROGRESS NOTE SUBJECTIVE: No changes overnight. No fevers. The patient had been extubated. He is sleeping, norma usable, lying comfortably in bed. No fevers overnight. VITAL SIGNS: Temperature 97.7, pulse 83, respirations 20, blood pressure 110/62, saturation of 95 o n nasal cannula. WBC 8.5. No shift, no bands. INDWELLINGS: PICC line, right chest PermCath. DIAGNOSTICS: Chest x-ray revealed decreased congestive heart failure. ANTIMICROBIALS: 1. Vancomycin. 2. Colistin. PHYSICAL EXAMINATION: GENERAL: Morbidly obese, well-developed, middle-aged man, who is in no distress. HEENT: Head atraumatic, normocephalic. Sclerae anicteric. Buccal mucosa dry. NECK: Supple. CHEST: Chest rise is symmetrical. Breath sounds diminished to the bases. HEART: S1, S2. ABDOMEN: Soft, bowel sounds present. EXTREMITIES: With bilateral lower extremities Patrick wrapped. ASSESSMENT: 1. Status post acute respiratory failure. 2. Status post staph aureus septicemia. 3. Left toe osteomyelitis, completing treatment. 4. Morbid obesity. 5. End-stage renal disease, hemodialysis dependent. 6. Diabetes. PLAN: The patient remains stable, completing antibiotics, last day 09/27/2016. Dictated By: JAMEY VAZQUEZ FRUIT SORTER for DONAVAN HALLMAN/GREGORY Conf#: [id number] DID#: [id number]
--- NOTE | 2016-09-20 12:24 | CONS ---
Date/Time of Note Date/Time of Note DATE: 09/20/16 TIME: 12:23 Consult Date/Type/Reason Admit Date/Time Aug 13, 2016 at 16:30 Initial Consult Date 08/13/16 Type of Consultation: Pulm Ordering Provider: KELLEN MEDINA MD Subjective Extubated yesterday, no new events. Awake, alert oriented. Objective Vital Signs Date Time Temp Pulse Resp B/P Pulse Ox O2 Delivery O2 Flow Rate FiO2 09/20/16 12:00 97.9 82 26 114/66 91 Nasal Cannula 6.0 09/20/16 07:44 35 Intake and Output 09/19/16 09/19/16 09/20/16 14:59 22:59 06:59 Intake Total 710 ml 100 ml Output Total 2915 ml 155 ml 37 ml Balance -2205 ml -55 ml -37 ml PHYSICAL EXAMINATION GENERAL: Elderly gentleman, intubated on mechanical ventilation, opens eyes comfortable generalized weakness VITAL SIGNS: see below. HEENT: Pupils equal, round, and reactive to light. CARDIAC: S1, S2, tachycardia. CHEST: Diminished air entry bilaterally. ABDOMEN: Mildly distended. No bowel sounds. EXTREMITIES: No cyanosis, clubbing, edema +2 NEUROLOGIC: No focal deficits. Results/Medications Result Diagram: 09/20/16 0500 09/20/16 0500 Results 24 hrs Laboratory Tests Test 09/19/16 17:38 09/19/16 18:00 09/19/16 21:28 09/19/16 23:45 Bedside Glucose 80 77 67 L Arterial Blood HCO3 27.3 H Arterial Blood Base Excess 0.6 Arterial Blood Oxygen Saturation 88.2 L Khoi Test ACCEPTAB Arterial Blood Gas Puncture Site Left Radial Arterial Blood Carboxyhemoglobin 0.3 Arterial Blood Date Drawn 09/19/2016 5:55:41 PM Arterial Blood Methemoglobin 0.1 Arterial Blood pCO2 (Temp correct) 54.4 H Arterial Blood pH (Temp corrected) 7.318 L Arterial Blood pO2 (Temp corrected) 61.4 L Blood Gas A-a O2 Differential 161.2 H Blood Gas Actual Respiration Rate 25 Blood Gas Low PEEP Setting 5.0 Blood Gas Modality VENT - CPAP Blood Gas Notified Time 09/19/2016 6:04:20 PM Blood Gas Notified Whom TM Blood Gas Pressure Support 10 Blood Gas Specimen Source Blood arterial Blood Gas Temperature 37.0 FiO2 40.0 Oxyhemoglobin Percent 87.8 L Total Hemoglobin 10.0 L Test 09/20/16 00:12 09/20/16 00:41 09/20/16 05:00 09/20/16 05:46 Bedside Glucose 99 87 58 L Alanine Aminotransferase (ALT/SGPT) 58 Albumin 2.8 L Albumin/Globulin Ratio 0.66 Alkaline Phosphatase 395 H Anion Gap 15 Aspartate Amino Transf (AST/SGOT) 58 H Basophils # 0.1 Basophils % 0.8 Blood Morphology Comment Blood Urea Nitrogen 55 H Calcium Level 8.2 L Carbon Dioxide Level 29 Chloride Level 98 Creatinine 4.32 H Direct Bilirubin 0.00 Eosinophils # 0.5 Eosinophils % 5.2 Free Thyroxine 1.19 Globulin 4.20 H Glucose Level 51 #L Hematocrit 25.9 L Hemoglobin 8.4 L Indirect Bilirubin 0.0 Lymphocytes # 1.0 Lymphocytes % 11.4 L Magnesium Level 2.6 H Mean Corpuscular Hemoglobin 25.1 L Mean Corpuscular Hemoglobin Concent 32.3 Mean Corpuscular Volume 77.7 L Mean Platelet Volume 8.8 Monocytes # 0.6 Monocytes % 6.3 Neutrophils # 6.8 Neutrophils % 76.3 Nucleated Red Blood Cells # 0.0 Nucleated Red Blood Cells % 0.0 Platelet Count 269 Potassium Level 4.1 Red Blood Count 3.34 L Red Cell Distribution Width 19.8 H Sodium Level 138 Thyroid Stimulating Hormone (TSH) 5.380 H Total Bilirubin 0.0 L Total Protein 7.0 White Blood Count 8.9 Test 09/20/16 06:24 09/20/16 06:47 09/20/16 07:00 09/20/16 07:05 Bedside Glucose 76 89 81 Arterial Blood HCO3 24.7 Arterial Blood Base Excess -0.7 Arterial Blood Oxygen Saturation 93.6 L Khoi Test ACCEPTAB Arterial Blood Gas Puncture Site Left Radial Arterial Blood Carboxyhemoglobin 0.5 Arterial Blood Date Drawn 09/20/2016 7:30:55 AM Arterial Blood Methemoglobin 0.3 Arterial Blood pCO2 (Temp correct) 44.0 Arterial Blood pH (Temp corrected) 7.367 Arterial Blood pO2 (Temp corrected) 74.6 L Blood Gas A-a O2 Differential 123.8 H Blood Gas Actual Respiration Rate 21 Blood Gas IPAP/EPAP Ratio 20/8 Blood Gas Modality MASK - BIPAP Blood Gas Notified Time 09/20/2016 7:59:35 AM Blood Gas Notified Whom JLD Blood Gas Respiration Rate 16.0 Blood Gas Specimen Source Blood arterial Blood Gas Temperature 37.0 FiO2 35.0 Oxyhemoglobin Percent 92.9 L Total Hemoglobin 9.2 L Test 09/20/16 08:05 09/20/16 11:40 09/20/16 12:11 Bedside Glucose 72 80 Stool Occult Blood NEGATIVE Medications Current Medications Morphine Sulfate (morphine) 2 mg Q4H PRN IV SEVERE PAIN LEVEL 7-10 Last administered on 09/17/16 02:04; Admin Dose 2 MG; Start 08/13/16 at 17:30 Fish Oil (Fish Oil) 1,000 mg DAILY PO Last administered on 09/19/16 08:19; Admin Dose 1,000 MG; Start 08/14/16 at 09:00 Miscellaneous Information 1 ea NOTE XX ; Start 08/13/16 at 18:00 Glucose (Glutose) 15 gm Q15M PRN PO DECREASED GLUCOSE; Start 08/13/16 at 18:00 Glucose (Glutose) 22.5 gm Q15M PRN PO DECREASED GLUCOSE; Start 08/13/16 at 18: 00 Dextrose (D50w Syringe) 25 ml Q15M PRN IV DECREASED GLUCOSE Last administered on 09/20/16 06:28; Admin Dose 25 ML; Start 08/13/16 at 18:00 Dextrose (D50w Syringe) 50 ml Q15M PRN IV DECREASED GLUCOSE; Start 08/13/16 at 18:00 Glucagon (Glucagen) 1 mg Q15M PRN IM DECREASED GLUCOSE; Start 08/13/16 at 18: 00 Glucose (Glutose) 15 gm Q15M PRN BUCCAL DECREASED GLUCOSE; Start 08/13/16 at 18:00 Sodium Hypochlorite (Dakin'S (1/4 Strength)) 1 applic DAILY IRR Last administered on 09/20/16 11:38; Admin Dose 1 APPLIC; Start 08/13/16 at 20:00 IV Flush (NS 10 ml) 10 ml PRN PRN IV IV PTOTOCOL; Start 08/14/16 at 17:00 Ondansetron HCl (Zofran Inj) 4 mg Q4H PRN IV NAUSEA AND/OR VOMITING; Start 08/16/16 at 12:30 Phenol 1 lozenge 1 lozenge Q1H PRN MT DRY MOUTH Last administered on 08/20/16at 21:28; Admin Dose 1 LOZENGE; Start 08/20/16 at 20:30 Norepinephrine/ Dextrose (Levophed/D5W) 500 ml @ 1.87 mls/hr TITRATE IV ; Start 09/09/16 at 08:00 Lorazepam (Ativan) 2 mg Q4H PRN IV anxiety Last administered on 09/19/16 23:43 ; Admin Dose 2 MG; Start 09/09/16 at 10:30 Heparin Sodium (Porcine) (Heparin (5000 Units/0.5 ml)) 5,000 unit Q8 SC Last administered on 09/20/16 05:54; Admin Dose 5,000 UNIT; Start 09/09/16 at 22:00 Insulin Glargine 10 unit 10 unit HS SC Last administered on 09/19/16 21:30; Admin Dose 10 UNIT; Start 09/10/16 at 22:00 Colistimethate Sodium/Sodium Chloride (Coly-Mycin/NS) 100 ml @ 50 mls/hr Q24H IVPB Last administered on 09/19/16 16:04; Admin Dose 50 MLS/HR; Start at 16:00 Acetylcysteine (Nac) 600 mg BID GTB Last administered on 09/19/16 08:17; Admin Dose 600 MG; Start 09/12/16 at 09:00 Allopurinol (Zyloprim) 100 mg DAILY GTB Last administered on 09/19/16 08:18; Admin Dose 100 MG; Start 09/12/16 at 09:00 Ascorbic Acid (Vitamin C) 500 mg DAILY GTB Last administered on 09/19/16 08:18 ; Admin Dose 500 MG; Start 09/12/16 at 09:00 Atorvastatin Calcium (Lipitor) 10 mg QHS GTB Last administered on 09/18/16 21: 50; Admin Dose 10 MG; Start 09/12/16 at 21:00 Cholecalciferol (Vitamin D) 1,000 unit DAILY GTB Last administered on 09/19/16 08:18; Admin Dose 1,000 UNIT; Start 09/12/16 at 09:00 Diphenhydramine HCl (Benadryl) 25 mg Q6H PRN GTB ITCHING; Start 09/12/16 at 08 :30 Famotidine (Pepcid) 20 mg DAILY GTB Last administered on 09/19/16 08:18; Admin Dose 20 MG; Start 09/12/16 at 09:00 Ferrous Sulfate (Feosol Liquid Cup) 300 mg BID GTB Last administered on 08:17; Admin Dose 300 MG; Start 09/12/16 at 09:00 Fluconazole (Diflucan) 100 mg DAILY GTB Last administered on 09/19/16 08:17; Admin Dose 100 MG; Start 09/12/16 at 09:00 Fluoxetine HCl (Prozac) 20 mg DAILY GTB Last administered on 09/19/16 08:18; Admin Dose 20 MG; Start 09/12/16 at 10:00 Lactobacillus Acidoph/Bulgaricus (Floranex) 1 tab TID GTB Last administered on 09/19/16 12:17; Admin Dose 1 TAB; Start 09/12/16 at 09:00 Pyridoxine HCl (Vitamin B6) 100 mg DAILY GTB Last administered on 09/19/16 08: 18; Admin Dose 100 MG; Start 09/12/16 at 09:00 Vitamin E (Vitamin E) 400 units DAILY GTB Last administered on 09/19/16 08:18; Admin Dose 400 UNITS; Start 09/12/16 at 10:00 Aspirin (Aspirin) 81 mg DAILY GTB Last administered on 09/19/16 08:17; Admin Dose 81 MG; Start 09/12/16 at 09:00 Acetaminophen (Tylenol Liquid) 650 mg Q6H PRN GTB PAIN 1-3 OR TEMP; Start at 08:30 Acetaminophen/ Hydrocodone Bitart ([place] (5/325)) 1 tab Q6H PRN GTB MODERATE PAIN LEVEL 4-6; Start 09/12/16 at 11:30 Acetaminophen/ Hydrocodone Bitart ([place] (5/325)) 2 tab Q6H PRN GTB MODERATE PAIN LEVEL 4-6; Start 09/12/16 at 13:00 Lorazepam (Ativan) 1 mg Q6 PRN GTB ANXIETY; Start 09/12/16 at 08:30 Lorazepam (Ativan) 1 mg HS PRN GTB ANXIETY, HELP WITH SLEEP Last administered on 09/17/16 23:40; Admin Dose 1 MG; Start 09/12/16 at 08:30 Simethicone (Mylicon) 80 mg Q6H PRN GTB INTESTINAL SPASMS/CRAMPING; Start at 11:30 Zolpidem Tartrate (Ambien) 10 mg HS PRN GTB INSOMNIA Last administered on 21:16; Admin Dose 10 MG; Start 09/12/16 at 08:30 Docusate Sodium 100 mg 100 mg Q12 PRN GTB CONSTIPATION; Start 09/12/16 at 08: 30 Propofol 100 ml @ 3.915 mls/ hr TITRATE PRN IV maintain rass -2 to -3 Last administered on 09/17/16 13:42; Admin Dose 7.83 MLS/HR; Start 09/13/16 at 19:30 Vancomycin HCl/ Sodium Chloride (Vancocin/NS) 500 ml @ 125 mls/hr Q72H IVPB Last administered on 09/18/16 14:30; Admin Dose 125 MLS/HR; Start 09/15/16 at 12:00 Insulin Aspart (Novolog Insulin Pen) NOVOLOG *MILD* ALGORI... Q6 SC ; Start 09/16 at 12:00 Dimethicone (Blistex Lip [place]) 1 applic Q2H PRN TOP CHAPPED LIPS; Start at 16:30 Ferrous Gluconate 325 mg 325 mg BID PO Last administered on 09/18/16 21:50; Admin Dose 325 MG; Start 09/17/16 at 21:00 Dextrose (D5W) 1,000 ml @ 50 mls/hr Q20H IV Last administered on 09/20/16 06: 24; Admin Dose 50 MLS/HR; Start 09/20/16 at 06:00 Assessment/Plan Chief Complaint/Hosp Course Assessment and plan 1. . Acute on chronic respiratory failure, hypoxic and hypercapnic. S/P intubation on 09/06/2016 because of worsening respiratory distress. Continue mechanical ventilation not for weaning today. Significant pulmonary edema with underlying infiltrates. Extubated. Comfortable. 2. Bilateral pneumonia with hypoxemic respiratory failure. Continue infectious disease recommendations. May have component of pneumonitis. Will consider steroids however risk of worsening infection with elevated BGs 3..Pulmonary hypertension. Continue supplemental oxygen. 4. End-stage renal failure now on hemodialysis. Evidence of primary edema will require continued volume removal 5. Dysphagia continue tube feeding 6. Atrial fibrillation currently rate controlled Disposition continue current level of care Problems: E[facility]USTILLO MD, [facility] Sep 20, 2016 12:24
--- NOTE | 2016-09-20 13:48 | CONS ---
Date/Time of Note Date/Time of Note DATE: 09/20/16 TIME: 13:46 Assessment/Plan Assessment/Plan Additional Assessment/Plan 60 yo male with 1) Respiratory Failure S/p Extubation 2) HCAP 3) LORNA on CKD, Currently on HD 4) Volume Overload, Anasarca 5) Pulm HTN 6) Morbid Obesity 7) Bilateral lower extremities acute on chronic cellulitis with left toe osteomyelitis. 8) Status post oxacillin-sensitive Staphylococcus aureus septicemia. HD ordered for today UF as tolerated Repeat Chemistry in am Cont to monitor UO, Electrolytes and Renal function S/p Perma-cath, May need mcc HD placement. CM consult Consultation Date/Type/Reason Admit Date/Time Aug 13, 2016 at 16:30 Initial Consult Date 08/13/16 Type of Consultation: Nephrology Referring Provider: KELLEN MEDINA MD 24 HR Interval Summary Free Text/Dictation S/p Extubation yesterday. Subjective hx not possible: pt critical status Constitutional: requiring O2 Exam/Review of Systems Vital Signs Vitals Vital Signs Date Time Temp Pulse Resp B/P Pulse Ox O2 Delivery O2 Flow Rate FiO2 09/20/16 13:00 87 21 104/58 97 Nasal Cannula 6.0 09/20/16 12:00 97.9 09/20/16 07:44 35 Intake and Output 09/19/16 09/19/16 09/20/16 15:00 23:00 07:00 Intake Total 660 ml 100 ml Output Total 2915 ml 160 ml 32 ml Balance -2255 ml -60 ml -32 ml Exam Constitutional: alert, oriented, No distress Head: atraumatic Eyes: EOMI ENMT: mucosa pink and moist Respiratory: crackles/rales, No labored breathing Cardiovascular: edema, regular rate and rhythm Gastrointestinal: distended, soft, No rebound or guarding 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: PROFILER HAND 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, lethargic, nl mental status Skin: No diaphoresis Results Result Diagram: 09/20/16 0500 09/20/16 0500 Results 24 hrs Laboratory Tests Test 09/19/16 17:38 09/19/16 18:00 09/19/16 21:28 09/19/16 23:45 Bedside Glucose 80 77 67 L Arterial Blood HCO3 27.3 H Arterial Blood Base Excess 0.6 Arterial Blood Oxygen Saturation 88.2 L Khoi Test ACCEPTAB Arterial Blood Gas Puncture Site Left Radial Arterial Blood Carboxyhemoglobin 0.3 Arterial Blood Date Drawn 09/19/2016 5:55:41 PM Arterial Blood Methemoglobin 0.1 Arterial Blood pCO2 (Temp correct) 54.4 H Arterial Blood pH (Temp corrected) 7.318 L Arterial Blood pO2 (Temp corrected) 61.4 L Blood Gas A-a O2 Differential 161.2 H Blood Gas Actual Respiration Rate 25 Blood Gas Low PEEP Setting 5.0 Blood Gas Modality VENT - CPAP Blood Gas Notified Time 09/19/2016 6:04:20 PM Blood Gas Notified Whom TM Blood Gas Pressure Support 10 Blood Gas Specimen Source Blood arterial Blood Gas Temperature 37.0 FiO2 40.0 Oxyhemoglobin Percent 87.8 L Total Hemoglobin 10.0 L Test 09/20/16 00:12 09/20/16 00:41 09/20/16 05:00 09/20/16 05:46 Bedside Glucose 99 87 58 L Alanine Aminotransferase (ALT/SGPT) 58 Albumin 2.8 L Albumin/Globulin Ratio 0.66 Alkaline Phosphatase 395 H Anion Gap 15 Aspartate Amino Transf (AST/SGOT) 58 H Basophils # 0.1 Basophils % 0.8 Blood Morphology Comment Blood Urea Nitrogen 55 H Calcium Level 8.2 L Carbon Dioxide Level 29 Chloride Level 98 Creatinine 4.32 H Direct Bilirubin 0.00 Eosinophils # 0.5 Eosinophils % 5.2 Free Thyroxine 1.19 Globulin 4.20 H Glucose Level 51 #L Hematocrit 25.9 L Hemoglobin 8.4 L Indirect Bilirubin 0.0 Lymphocytes # 1.0 Lymphocytes % 11.4 L Magnesium Level 2.6 H Mean Corpuscular Hemoglobin 25.1 L Mean Corpuscular Hemoglobin Concent 32.3 Mean Corpuscular Volume 77.7 L Mean Platelet Volume 8.8 Monocytes # 0.6 Monocytes % 6.3 Neutrophils # 6.8 Neutrophils % 76.3 Nucleated Red Blood Cells # 0.0 Nucleated Red Blood Cells % 0.0 Platelet Count 269 Potassium Level 4.1 Red Blood Count 3.34 L Red Cell Distribution Width 19.8 H Sodium Level 138 Thyroid Stimulating Hormone (TSH) 5.380 H Total Bilirubin 0.0 L Total Protein 7.0 White Blood Count 8.9 Test 09/20/16 06:24 09/20/16 06:47 09/20/16 07:00 09/20/16 07:05 Bedside Glucose 76 89 81 Arterial Blood HCO3 24.7 Arterial Blood Base Excess -0.7 Arterial Blood Oxygen Saturation 93.6 L Khoi Test ACCEPTAB Arterial Blood Gas Puncture Site Left Radial Arterial Blood Carboxyhemoglobin 0.5 Arterial Blood Date Drawn 09/20/2016 7:30:55 AM Arterial Blood Methemoglobin 0.3 Arterial Blood pCO2 (Temp correct) 44.0 Arterial Blood pH (Temp corrected) 7.367 Arterial Blood pO2 (Temp corrected) 74.6 L Blood Gas A-a O2 Differential 123.8 H Blood Gas Actual Respiration Rate 21 Blood Gas IPAP/EPAP Ratio 20/8 Blood Gas Modality MASK - BIPAP Blood Gas Notified Time 09/20/2016 7:59:35 AM Blood Gas Notified Whom JLD Blood Gas Respiration Rate 16.0 Blood Gas Specimen Source Blood arterial Blood Gas Temperature 37.0 FiO2 35.0 Oxyhemoglobin Percent 92.9 L Total Hemoglobin 9.2 L Test 09/20/16 08:05 09/20/16 11:40 09/20/16 12:11 Bedside Glucose 72 80 Stool Occult Blood NEGATIVE Medications Medications Current Medications Morphine Sulfate (morphine) 2 mg Q4H PRN IV SEVERE PAIN LEVEL 7-10 Last administered on 09/17/16 02:04; Admin Dose 2 MG; Start 08/13/16 at 17:30 Fish Oil (Fish Oil) 1,000 mg DAILY PO Last administered on 09/19/16 08:19; Admin Dose 1,000 MG; Start 08/14/16 at 09:00 Miscellaneous Information 1 ea NOTE XX ; Start 08/13/16 at 18:00 Glucose (Glutose) 15 gm Q15M PRN PO DECREASED GLUCOSE; Start 08/13/16 at 18:00 Glucose (Glutose) 22.5 gm Q15M PRN PO DECREASED GLUCOSE; Start 08/13/16 at 18: 00 Dextrose (D50w Syringe) 25 ml Q15M PRN IV DECREASED GLUCOSE Last administered on 09/20/16 06:28; Admin Dose 25 ML; Start 08/13/16 at 18:00 Dextrose (D50w Syringe) 50 ml Q15M PRN IV DECREASED GLUCOSE; Start 08/13/16 at 18:00 Glucagon (Glucagen) 1 mg Q15M PRN IM DECREASED GLUCOSE; Start 08/13/16 at 18: 00 Glucose (Glutose) 15 gm Q15M PRN BUCCAL DECREASED GLUCOSE; Start 08/13/16 at 18:00 Sodium Hypochlorite (Dakin'S (14 Strength)) 1 applic DAILY IRR Last administered on 09/20/16 11:38; Admin Dose 1 APPLIC; Start 08/13/16 at 20:00 IV Flush (NS 10 ml) 10 ml PRN PRN IV IV PTOTOCOL; Start 08/14/16 at 17:00 Ondansetron HCl (Zofran Inj) 4 mg Q4H PRN IV NAUSEA AND/OR VOMITING; Start 08/16/16 at 12:30 Phenol 1 lozenge 1 lozenge Q1H PRN MT DRY MOUTH Last administered on 08/20/16at 21:28; Admin Dose 1 LOZENGE; Start 08/20/16 at 20:30 Norepinephrine/ Dextrose (Levophed/D5W) 500 ml @ 1.87 mls/hr TITRATE IV ; Start 09/09/16 at 08:00 Lorazepam (Ativan) 2 mg Q4H PRN IV anxiety Last administered on 09/19/16 23:43 ; Admin Dose 2 MG; Start 09/09/16 at 10:30 Heparin Sodium (Porcine) (Heparin (5000 Units/0.5 ml)) 5,000 unit Q8 SC Last administered on 09/20/16 05:54; Admin Dose 5,000 UNIT; Start 09/09/16 at 22:00 Insulin Glargine 10 unit 10 unit HS SC Last administered on 09/19/16 21:30; Admin Dose 10 UNIT; Start 09/10/16 at 22:00 Colistimethate Sodium/Sodium Chloride (Coly-Mycin/NS) 100 ml @ 50 mls/hr Q24H IVPB Last administered on 09/19/16 16:04; Admin Dose 50 MLS/HR; Start at 16:00 Acetylcysteine (Nac) 600 mg BID GTB Last administered on 09/19/16 08:17; Admin Dose 600 MG; Start 09/12/16 at 09:00 Allopurinol (Zyloprim) 100 mg DAILY GTB Last administered on 09/19/16 08:18; Admin Dose 100 MG; Start 09/12/16 at 09:00 Ascorbic Acid (Vitamin C) 500 mg DAILY GTB Last administered on 09/19/16 08:18 ; Admin Dose 500 MG; Start 09/12/16 at 09:00 Atorvastatin Calcium (Lipitor) 10 mg QHS GTB Last administered on 09/18/16 21: 50; Admin Dose 10 MG; Start 09/12/16 at 21:00 Cholecalciferol (Vitamin D) 1,000 unit DAILY GTB Last administered on 09/19/16 08:18; Admin Dose 1,000 UNIT; Start 09/12/16 at 09:00 Diphenhydramine HCl (Benadryl) 25 mg Q6H PRN GTB ITCHING; Start 09/12/16 at 08 :30 Famotidine (Pepcid) 20 mg DAILY GTB Last administered on 09/19/16 08:18; Admin Dose 20 MG; Start 09/12/16 at 09:00 Ferrous Sulfate (Feosol Liquid Cup) 300 mg BID GTB Last administered on 08:17; Admin Dose 300 MG; Start 09/12/16 at 09:00 Fluconazole (Diflucan) 100 mg DAILY GTB Last administered on 09/19/16 08:17; Admin Dose 100 MG; Start 09/12/16 at 09:00 Fluoxetine HCl (Prozac) 20 mg DAILY GTB Last administered on 09/19/16 08:18; Admin Dose 20 MG; Start 09/12/16 at 10:00 Lactobacillus Acidoph/Bulgaricus (Floranex) 1 tab TID GTB Last administered on 09/19/16 12:17; Admin Dose 1 TAB; Start 09/12/16 at 09:00 Pyridoxine HCl (Vitamin B6) 100 mg DAILY GTB Last administered on 09/19/16 08: 18; Admin Dose 100 MG; Start 09/12/16 at 09:00 Vitamin E (Vitamin E) 400 units DAILY GTB Last administered on 09/19/16 08:18; Admin Dose 400 UNITS; Start 09/12/16 at 10:00 Aspirin (Aspirin) 81 mg DAILY GTB Last administered on 09/19/16 08:17; Admin Dose 81 MG; Start 09/12/16 at 09:00 Acetaminophen (Tylenol Liquid) 650 mg Q6H PRN GTB PAIN 1-3 OR TEMP; Start at 08:30 Acetaminophen/ Hydrocodone Bitart ([place] (5/325)) 1 tab Q6H PRN GTB MODERATE PAIN LEVEL 4-6; Start 09/12/16 at 11:30 Acetaminophen/ Hydrocodone Bitart ([place] (5/325)) 2 tab Q6H PRN GTB MODERATE PAIN LEVEL 4-6; Start 09/12/16 at 13:00 Lorazepam (Ativan) 1 mg Q6 PRN GTB ANXIETY; Start 09/12/16 at 08:30 Lorazepam (Ativan) 1 mg HS PRN GTB ANXIETY, HELP WITH SLEEP Last administered on 09/17/16 23:40; Admin Dose 1 MG; Start 09/12/16 at 08:30 Simethicone (Mylicon) 80 mg Q6H PRN GTB INTESTINAL SPASMS/CRAMPING; Start at 11:30 Zolpidem Tartrate (Ambien) 10 mg HS PRN GTB INSOMNIA Last administered on 21:16; Admin Dose 10 MG; Start 09/12/16 at 08:30 Docusate Sodium 100 mg 100 mg Q12 PRN GTB CONSTIPATION; Start 09/12/16 at 08: 30 Propofol 100 ml @ 3.915 mls/ hr TITRATE PRN IV maintain rass -2 to -3 Last administered on 09/17/16 13:42; Admin Dose 7.83 MLS/HR; Start 09/13/16 at 19:30 Vancomycin HCl/ Sodium Chloride (Vancocin/NS) 500 ml @ 125 mls/hr Q72H IVPB Last administered on 09/18/16 14:30; Admin Dose 125 MLS/HR; Start 09/15/16 at 12:00 Insulin Aspart (Novolog Insulin Pen) NOVOLOG *MILD* ALGORI... Q6 SC ; Start 09/16 at 12:00 Dimethicone (Blistex Lip [place]) 1 applic Q2H PRN TOP CHAPPED LIPS; Start at 16:30 Ferrous Gluconate 325 mg 325 mg BID PO Last administered on 09/18/16 21:50; Admin Dose 325 MG; Start 09/17/16 at 21:00 Dextrose (D5W) 1,000 ml @ 50 mls/hr Q20H IV Last administered on 09/20/16 06: 24; Admin Dose 50 MLS/HR; Start 09/20/16 at 06:00 DYAN FRANKLIN MD Sep 20, 2016 13:48
--- NOTE | 2016-09-20 14:00 | PN ---
DATE: 09/20/2016 CARDIOLOGY FOLLOWUP SUBJECTIVE: The case discussed with the staff. Rhythm strip was reviewed and discussed with the milo grubbs's . The patient has been successfully extubated. Denies any chest pain or pressure to me . Does complain of throat discomfort and pain____. Remains in atrial fibrillation. Heart rate und er good control now. He is satting about 90% now on 6 liters oxygen still. MEDICATIONS: Reviewed as per medication reconciliation, which was personally reviewed. PHYSICAL EXAMINATION: VITAL SIGNS: Temperature 97.7, heart rate of 83, blood pressure 110/62, respiratory rate of 24, sat urating 96% on 6 liters. HEENT: Normocephalic, atraumatic. Appears in mild to moderate respiratory distress. Eyes: Pupils equal and round. GENERAL: Obese gentleman. CARDIOVASCULAR: Irregularly irregular. Systolic murmur. PULMONARY: With mild rhonchi, diffuse. GASTROINTESTINAL: Obese, soft, nontender. EXTREMITIES: With positive lower extremity edema, will improve. NEUROLOGIC: Awake and alert. PSYCHIATRIC: Very calm and pleasant. DIAGNOSTIC DATA: Chest x-ray shows decrease in congestive heart failure, small right pleural effusi on, cardiac enlargement. LABORATORY: WBC of 8.9, hemoglobin 8.4, platelets 269. Sodium 138, potassium 4.1, BUN of 55, creat inine of 4.32, glucose ____. Albumin is 2.8. TSH 5.38. ASSESSMENT AND PLAN: 1. Acute hypoxemia and hypercapnic respiratory failure, chronic respiratory failure, currently extu bated. 2. Atrial fibrillation, currently heart rate under good control off of beta charis. 3. Renal failure, acute on chronic. On dialysis, no evidence of congestive heart failure/fluid ove rload secondary to above, including diastolic dysfunction and renal failure. 4. History of GI bleed in the past, currently no active bleeding. 5. Severe anemia, status post sepsis and pneumonia. 6. Pleural effusion, status post thoracentesis. 7. History of hypertension, currently remains stable on the low side. RECOMMENDATIONS: Continue with respiratory care. ICU care will be continued, closely monitor the p atient. Oxygen supplement will be continued. Hopeful that the patient would not need to be intubat ed again, but needs to be closely monitored for that. Hemodialysis as per Renal will be continued. Antibiotic as per ID recommendation. Heart rate currently is stable. We will November charis. We will continue to monitor him at this level and if needed, ____agent charis. Guaiac stool was se nt another time ____ still pending. We will follow up on that and decide anticoagulation once the p atient is more stable. Continue with the ICU care. More than 40 minutes of critical care time was spent in management and treating this patient, exclud ing any procedures. Dictated By: GARDENIA NELSON MD AV/GREGORY Conf#: [id number] DID#: [id number]
--- NOTE | 2016-09-20 14:35 | PN ---
Date/Time of Note Date/Time of Note DATE: 09/20/16 TIME: 14:32 Assessment/Plan VTE Prophylaxis VTE Prophylaxis Intervention: contraindicated Lines/Catheters IV Catheter Type (from [facility]): PICC Line Urinary Cath still in place: Yes Assessment/Plan Chief Complaint/Hosp Course Assessment and plan 1. Left great toe osteomyelitis. Patient is status post evaluation by vascular consult. Podiatry following for left foot wound. Continue with antibiotics per ID. 2. Acute on chronic respiratory failure, hypoxic and hypercapnic. S/P intubation on 09/06/2016 because of worsening respiratory distress. Less pulmonary congestion noted on recent x-ray. Continue on dialysis. Pulmonology following. Provide with bronchodilators . 3. Ventilator associated pneumonia. Sputum culture positive for Acinetobacter baumannii. Continue aspiration precautions. Antibiotics per ID 4. Pulmonary hypertension. Continue supplemental oxygen. 5. Acute on chronic kidney disease. Continue on hemodialysis. Nephrology following. Monitor renal panel 6. Congestive heart failure exacerbation. Acute on chronic diastolic dysfunction. Continue hemodialysis as per nephrology. 7. Type 2 diabetes mellitus. Hemoglobin A1c 5.8. Continue sliding scale insulin. Adjust as needed 8. Essential hypertension. Continue antihypertensives. 9. Atrial fibrillation. Rate controlled. Cardiology following. Therapeutic anticoagulation will be deferred to cardiology. 10. Dyslipidemia. Continue statins. 11. Gout. Continue allopurinol. 12. History of Major depression. We'll continue Lyrica once able to tolerate oral intake 13. Morbid obesity 14. Fluid, electrolytes, and nutrition. Continue NGT feedings. 15. Deep vein thrombosis prophylaxis. On hold for now due to anemia 16. Gastrointestinal prophylaxis. Histamine 2 blockers. Disposition and plan: Off of mechanical ventilation at this time. Continue O2 supplement. Continue on dialysis for fluid removal. Monitor for clinical improvement of respiratory status. Transfer to telemetry once medically stable and okay with consultants Discussed plan of care with Critical care time: 30 minutes Problems: Subjective 24 Hr Interval Summary Free Text/Dictation Extubated at this time. Slightly somnolent Exam/Review of Systems Vital Signs Vitals Vital Signs Date Time Temp Pulse Resp B/P Pulse Ox O2 Delivery O2 Flow Rate FiO2 09/20/16 13:00 87 21 104/58 97 Nasal Cannula 6.0 09/20/16 12:00 97.9 09/20/16 07:44 35 Intake and Output 1/12/3109/19/16 09/20/16 15:00 23:00 07:00 Intake Total 660 ml 100 ml Output Total 2915 ml 160 ml 32 ml Balance -2255 ml -60 ml -32 ml Exam General: Obese, now extubated. Sightly somnolent Eyes: pupils equal round, Anicteric sclera Neck: Supple nontender, no JVD Cardiac: Regular rate. Slight murmur auscultated Pulmonary: Diminished bilaterally GI: Obese, bowel sounds active Extremities: Bilateral lower extremity edema Skin: Surgical site of lower extremity clean dry and intact Neurologic: Somnolent, is alert to person place and situation Results Result Diagram: 09/20/16 0500 09/20/16 0500 Results 24 hrs Laboratory Tests Test 09/19/16 17:38 09/19/16 18:00 09/19/16 21:28 09/19/16 23:45 Bedside Glucose 80 77 67 L Arterial Blood HCO3 27.3 H Arterial Blood Base Excess 0.6 Arterial Blood Oxygen Saturation 88.2 L Khoi Test ACCEPTAB Arterial Blood Gas Puncture Site Left Radial Arterial Blood Carboxyhemoglobin 0.3 Arterial Blood Date Drawn 09/19/2016 5:55:41 PM Arterial Blood Methemoglobin 0.1 Arterial Blood pCO2 (Temp correct) 54.4 H Arterial Blood pH (Temp corrected) 7.318 L Arterial Blood pO2 (Temp corrected) 61.4 L Blood Gas A-a O2 Differential 161.2 H Blood Gas Actual Respiration Rate 25 Blood Gas Low PEEP Setting 5.0 Blood Gas Modality VENT - CPAP Blood Gas Notified Time 09/19/2016 6:04:20 PM Blood Gas Notified Whom TM Blood Gas Pressure Support 10 Blood Gas Specimen Source Blood arterial Blood Gas Temperature 37.0 FiO2 40.0 Oxyhemoglobin Percent 87.8 L Total Hemoglobin 10.0 L Test 09/20/16 00:12 09/20/16 00:41 09/20/16 05:00 09/20/16 05:46 Bedside Glucose 99 87 58 L Alanine Aminotransferase (ALT/SGPT) 58 Albumin 2.8 L Albumin/Globulin Ratio 0.66 Alkaline Phosphatase 395 H Anion Gap 15 Aspartate Amino Transf (AST/SGOT) 58 H Basophils # 0.1 Basophils % 0.8 Blood Morphology Comment Blood Urea Nitrogen 55 H Calcium Level 8.2 L Carbon Dioxide Level 29 Chloride Level 98 Creatinine 4.32 H Direct Bilirubin 0.00 Eosinophils # 0.5 Eosinophils % 5.2 Free Thyroxine 1.19 Globulin 4.20 H Glucose Level 51 #L Hematocrit 25.9 L Hemoglobin 8.4 L Indirect Bilirubin 0.0 Lymphocytes # 1.0 Lymphocytes % 11.4 L Magnesium Level 2.6 H Mean Corpuscular Hemoglobin 25.1 L Mean Corpuscular Hemoglobin Concent 32.3 Mean Corpuscular Volume 77.7 L Mean Platelet Volume 8.8 Monocytes # 0.6 Monocytes % 6.3 Neutrophils # 6.8 Neutrophils % 76.3 Nucleated Red Blood Cells # 0.0 Nucleated Red Blood Cells % 0.0 Platelet Count 269 Potassium Level 4.1 Red Blood Count 3.34 L Red Cell Distribution Width 19.8 H Sodium Level 138 Thyroid Stimulating Hormone (TSH) 5.380 H Total Bilirubin 0.0 L Total Protein 7.0 White Blood Count 8.9 Test 09/20/16 06:24 09/20/16 06:47 09/20/16 07:00 09/20/16 07:05 Bedside Glucose 76 89 81 Arterial Blood HCO3 24.7 Arterial Blood Base Excess -0.7 Arterial Blood Oxygen Saturation 93.6 L Khoi Test ACCEPTAB Arterial Blood Gas Puncture Site Left Radial Arterial Blood Carboxyhemoglobin 0.5 Arterial Blood Date Drawn 09/20/2016 7:30:55 AM Arterial Blood Methemoglobin 0.3 Arterial Blood pCO2 (Temp correct) 44.0 Arterial Blood pH (Temp corrected) 7.367 Arterial Blood pO2 (Temp corrected) 74.6 L Blood Gas A-a O2 Differential 123.8 H Blood Gas Actual Respiration Rate 21 Blood Gas IPAP/EPAP Ratio 20/8 Blood Gas Modality MASK - BIPAP Blood Gas Notified Time 09/20/2016 7:59:35 AM Blood Gas Notified Whom JLD Blood Gas Respiration Rate 16.0 Blood Gas Specimen Source Blood arterial Blood Gas Temperature 37.0 FiO2 35.0 Oxyhemoglobin Percent 92.9 L Total Hemoglobin 9.2 L Test 09/20/16 08:05 09/20/16 11:40 09/20/16 12:11 Bedside Glucose 72 80 Stool Occult Blood NEGATIVE Medications Medications Current Medications Morphine Sulfate (morphine) 2 mg Q4H PRN IV SEVERE PAIN LEVEL 7-10 Last administered on 09/17/16t 02:04; Admin Dose 2 MG; Start 11/28/16 at 17:30 Fish Oil (Fish Oil) 1,000 mg DAILY PO Last administered on 09/19/16 08:19; Admin Dose 1,000 MG; Start 08/14/16 at 09:00 Miscellaneous Information 1 ea NOTE XX ; Start 08/13/16 at 18:00 Glucose (Glutose) 15 gm Q15M PRN PO DECREASED GLUCOSE; Start 08/13/16 at 18:00 Glucose (Glutose) 22.5 gm Q15M PRN PO DECREASED GLUCOSE; Start 08/13/16 at 18: 00 Dextrose (D50w Syringe) 25 ml Q15M PRN IV DECREASED GLUCOSE Last administered on 09/20/16 06:28; Admin Dose 25 ML; Start 08/13/16 at 18:00 Dextrose (D50w Syringe) 50 ml Q15M PRN IV DECREASED GLUCOSE; Start 08/13/16 at 18:00 Glucagon (Glucagen) 1 mg Q15M PRN IM DECREASED GLUCOSE; Start 08/13/16 at 18: 00 Glucose (Glutose) 15 gm Q15M PRN BUCCAL DECREASED GLUCOSE; Start 08/13/16 at 18:00 Sodium Hypochlorite (Dakin'S (1/4 Strength)) 1 applic DAILY IRR Last administered on 09/20/16 11:38; Admin Dose 1 APPLIC; Start 08/13/16 at 20:00 IV Flush (NS 10 ml) 10 ml PRN PRN IV IV PTOTOCOL; Start 08/14/16 at 17:00 Ondansetron HCl (Zofran Inj) 4 mg Q4H PRN IV NAUSEA AND/OR VOMITING; Start 08/16/16 at 12:30 Phenol 1 lozenge 1 lozenge Q1H PRN MT DRY MOUTH Last administered on 08/20/16at 21:28; Admin Dose 1 LOZENGE; Start 08/20/16 at 20:30 Norepinephrine/ Dextrose (Levophed/D5W) 500 ml @ 1.87 mls/hr TITRATE IV ; Start 09/09/16 at 08:00 Lorazepam (Ativan) 2 mg Q4H PRN IV anxiety Last administered on 09/19/16 23:43 ; Admin Dose 2 MG; Start 09/09/16 at 10:30 Heparin Sodium (Porcine) (Heparin (5000 Units/0.5 ml)) 5,000 unit Q8 SC Last administered on 09/20/16 05:54; Admin Dose 5,000 UNIT; Start 09/09/16 at 22:00 Insulin Glargine 10 unit 10 unit HS SC Last administered on 09/19/16 21:30; Admin Dose 10 UNIT; Start 09/10/16 at 22:00 Colistimethate Sodium/Sodium Chloride (Coly-Mycin/NS) 100 ml @ 50 mls/hr Q24H IVPB Last administered on 09/19/16 16:04; Admin Dose 50 MLS/HR; Start at 16:00 Acetylcysteine (Nac) 600 mg BID GTB Last administered on 09/19/16 08:17; Admin Dose 600 MG; Start 09/12/16 at 09:00 Allopurinol (Zyloprim) 100 mg DAILY GTB Last administered on 09/19/16 08:18; Admin Dose 100 MG; Start 09/12/16 at 09:00 Ascorbic Acid (Vitamin C) 500 mg DAILY GTB Last administered on 09/19/16 08:18 ; Admin Dose 500 MG; Start 09/12/16 at 09:00 Atorvastatin Calcium (Lipitor) 10 mg QHS GTB Last administered on 09/18/16 21: 50; Admin Dose 10 MG; Start 09/12/16 at 21:00 Cholecalciferol (Vitamin D) 1,000 unit DAILY GTB Last administered on 09/19/16 08:18; Admin Dose 1,000 UNIT; Start 09/12/16 at 09:00 Diphenhydramine HCl (Benadryl) 25 mg Q6H PRN GTB ITCHING; Start 09/12/16 at 08 :30 Famotidine (Pepcid) 20 mg DAILY GTB Last administered on 09/19/16 08:18; Admin Dose 20 MG; Start 09/12/16 at 09:00 Ferrous Sulfate (Feosol Liquid Cup) 300 mg BID GTB Last administered on 08:17; Admin Dose 300 MG; Start 09/12/16 at 09:00 Fluconazole (Diflucan) 100 mg DAILY GTB Last administered on 09/19/16 08:17; Admin Dose 100 MG; Start 09/12/16 at 09:00 Fluoxetine HCl (Prozac) 20 mg DAILY GTB Last administered on 09/19/16 08:18; Admin Dose 20 MG; Start 09/12/16 at 10:00 Lactobacillus Acidoph/Bulgaricus (Floranex) 1 tab TID GTB Last administered on 09/19/16 12:17; Admin Dose 1 TAB; Start 09/12/16 at 09:00 Pyridoxine HCl (Vitamin B6) 100 mg DAILY GTB Last administered on 09/19/16 08: 18; Admin Dose 100 MG; Start 09/12/16 at 09:00 Vitamin E (Vitamin E) 400 units DAILY GTB Last administered on 09/19/16 08:18; Admin Dose 400 UNITS; Start 09/12/16 at 10:00 Aspirin (Aspirin) 81 mg DAILY GTB Last administered on 09/19/16 08:17; Admin Dose 81 MG; Start 09/12/16 at 09:00 Acetaminophen (Tylenol Liquid) 650 mg Q6H PRN GTB PAIN 1-3 OR TEMP; Start at 08:30 Acetaminophen/ Hydrocodone Bitart ([place] (5/325)) 1 tab Q6H PRN GTB MODERATE PAIN LEVEL 4-6; Start 09/12/16 at 11:30 Acetaminophen/ Hydrocodone Bitart (Celina (5/325)) 2 tab Q6H PRN GTB MODERATE PAIN LEVEL 4-6; Start 09/12/16 at 13:00 Lorazepam (Ativan) 1 mg Q6 PRN GTB ANXIETY; Start 09/12/16 at 08:30 Lorazepam (Ativan) 1 mg HS PRN GTB ANXIETY, HELP WITH SLEEP Last administered on 09/17/16 23:40; Admin Dose 1 MG; Start 09/12/16 at 08:30 Simethicone (Mylicon) 80 mg Q6H PRN GTB INTESTINAL SPASMS/CRAMPING; Start at 11:30 Zolpidem Tartrate (Ambien) 10 mg HS PRN GTB INSOMNIA Last administered on 21:16; Admin Dose 10 MG; Start 09/12/16 at 08:30 Docusate Sodium 100 mg 100 mg Q12 PRN GTB CONSTIPATION; Start 09/12/16 at 08: 30 Propofol 100 ml @ 3.915 mls/ hr TITRATE PRN IV maintain rass -2 to -3 Last administered on 09/17/16 13:42; Admin Dose 7.83 MLS/HR; Start 09/13/16 at 19:30 Vancomycin HCl/ Sodium Chloride (Vancocin/NS) 500 ml @ 125 mls/hr Q72H IVPB Last administered on 09/18/16 14:30; Admin Dose 125 MLS/HR; Start 09/15/16 at 12:00 Insulin Aspart (Novolog Insulin Pen) NOVOLOG *MILD* ALGORI... Q6 SC ; Start 09/16 at 12:00 Dimethicone (Blistex Lip [place]) 1 applic Q2H PRN TOP CHAPPED LIPS; Start at 16:30 Ferrous Gluconate 325 mg 325 mg BID PO Last administered on 09/18/16 21:50; Admin Dose 325 MG; Start 09/17/16 at 21:00 Dextrose (D5W) 1,000 ml @ 50 mls/hr Q20H IV Last administered on 09/20/16 06: 24; Admin Dose 50 MLS/HR; Start 09/20/16 at 06:00 GIUSEPPE BREAUX Sep 20, 2016 14:34 GIUSEPPE BREAUX Sep 20, 2016 14:34
[2016-09-20] MEDS ORDERED: HEPARIN 1000 UNITS/ML 10 ML INJ CATHETER ONE (16:00)
[2016-09-20] MEDS: COLISTIMETHATE 100 MG in SOD CHLORIDE 0.9% 100 ML IVPB SCH (17:31)
[2016-09-20] MEDS: ATORVASTATIN 10 MG TAB GTB SCH (21:20)
[2016-09-20] MEDS: LORAZEPAM 1 MG TAB GTB PRN (21:39)
[2016-09-20] MEDS: INSULIN GLARGINE [LANtus] 3 ML PEN SC SCH (21:48)
[2016-09-21] VITALS (30 sets, daily range): BP systolic 101–144; BP diastolic 51–77; PULSE 75–102; RESP 18–28
[2016-09-21] MEDS: INSULIN ASPART [NOVOLOG] 3 ML PEN SC SCH
[2016-09-21] MEDS: ALBUTEROL/IPRATROPIUM (NEB) 3 ML AMP HHN SCH ×6 (01:11→20:02)
[2016-09-21] MEDS: ACCUCHECK AT 2AM (Patients on SS coverage) XX SCH (02:00)
[2016-09-21 05:17] LABS: POTASSIUM 4.2 mmol/L (3.5-5.1)
[2016-09-21 05:19] LABS: CREATININE 3.99 mg/dl (0.61-1.24)
[2016-09-21 05:20] LABS: CALCIUM 8.2 mg/dl (8.4-10.2)
[2016-09-21 06:04] LABS: BASOPHILS % 0.6 % (0.0-2.0); EOSINOPHILS # 0.3 10^3/ul (0.0-0.5); HEMATOCRIT 25.1 % (42.0-52.0); HEMOGLOBIN 8.3 g/dl (14.0-18.0); LYMPHOCYTES # 0.8 10^3/ul (0.8-2.9); LYMPHOCYTES % 10.8 % (15.0-51.0); MEAN CORPUSCULAR HEMOGLOBIN 25.7 pg (29.0-33.0); MEAN CORPUSCULAR HGB CONC 33.1 g/dl (32.0-37.0); MEAN CORPUSCULAR VOLUME 77.5 fl (82.0-101.0); MEAN PLATELET VOLUME 8.9 fl (7.4-10.4); MONOCYTE # 0.6 10^3/ul (0.3-0.9); MONOCYTES % 7.8 % (0.0-11.0); NEUTROPHIL # 5.8 10^3/ul (1.6-7.5); NEUTROPHILS % 76.8 % (39.0-77.0); PLATELET COUNT 265 10^3/UL (140-440); RED BLOOD COUNT 3.24 10^6/ul (4.70-6.10); RED CELL DISTRIBUTION WIDTH 20.7 % (11.5-14.5); UNCORRECTED WBC 7.5 10^3/ul (4.8-10.8); WHITE BLOOD COUNT 7.5 10^3/ul (4.8-10.8)
[2016-09-21 06:13] LABS: CONDITION 1; LH ANALYZER COMMENTS 1
[2016-09-21] MEDS: HEPARIN 5,000 UNIT/0.5 ML SYG SC SCH (06:44)
[2016-09-21] MEDS: Insulin NOVOLOG SS MILD Algorithm (SS with meals and bedtime) SC SCH ×4 (07:05→20:31)
[2016-09-21] MEDS ORDERED: INSULIN ASPART [NOVOLOG] 3 ML PEN SC SCH (07:35)
--- NOTE | 2016-09-21 08:20 | RADRPT ---
PROCEDURE: XR Chest. CLINICAL INDICATION: Pneumonia. CHF. TECHNIQUE: Single portable view of the chest was obtained COMPARISON: Portable chest 09/20/2016 FINDINGS: Again noted is a right central venous catheter. The heart is borderline enlarged. Again noted is a small right pleural effusion. The pulmonary vessels appear congested and indistinct. Mild increas ed density perihilar and infrahilar regions. These findings are consistent with mild congestive hea rt or pulmonary edema. No definite left pleural effusion and pneumothorax. IMPRESSION: 1. No significant change . 2. Findings suggestive of mild congestive heart failure bone edema. 3. Small right pleural effusion. RPTAT:AAJJ Physician Pily Date Time Electronically viewed and signed by Nicki Reid Physician on 09/21/2016 08:20 /
[2016-09-21] MEDS: CHOLECALCIFEROL 1,000 UNIT TAB GTB SCH (08:22)
[2016-09-21] MEDS: FISH OIL 1,000 MG CAP PO SCH (08:23)
[2016-09-21] MEDS: LACTOBACILLUS CHEW TAB GTB SCH ×3 (08:24→20:29)
[2016-09-21] MEDS: PYRIDOXINE 50 MG TAB GTB SCH (08:24)
[2016-09-21] MEDS: ACETYLCYSTEINE 600 MG CAP GTB SCH ×2 (08:24→20:28)
[2016-09-21] MEDS: VITAMIN E 400 UNITS CAP GTB SCH (08:24)
[2016-09-21] MEDS: FLUOXETINE 20 MG CAP GTB SCH (08:24)
[2016-09-21] MEDS: FAMOTIDINE 20 MG TAB GTB SCH (08:24)
[2016-09-21] MEDS: FLUCONAZOLE 100 MG TAB GTB SCH (08:24)
[2016-09-21] MEDS: CALCIUM CARBONATE 500 MG CHEW TAB GTB SCH ×3 (08:24→17:13)
[2016-09-21] MEDS: FERROUS SULFATE 60 MG/ML 5ML CUP GTB SCH ×2 (08:25→20:30)
[2016-09-21] MEDS: APIXABAN 5 MG TABLET PO SCH ×2 (08:25→20:28)
[2016-09-21] MEDS: ALLOPURINOL 100 MG TAB GTB SCH (08:25)
[2016-09-21] MEDS: ASCORBIC ACID 500 MG TAB GTB SCH (08:25)
[2016-09-21] MEDS: FERROUS GLUCONATE (EC) 325 MG TAB PO SCH ×2 (08:25→20:30)
--- NOTE | 2016-09-21 08:29 | PN ---
DATE: 09/21/2016 CARDIOLOGY FOLLOWUP PROGRESS NOTE SUBJECTIVE: The patient still remains on oxygen, off on the vent. He has remained in atrial fibril lation. Heart rate overall has been stable. His blood pressure on the low side, but stable. He st ill requires to be a 6 L of oxygen. Overnight has been on BiPAP. Saturating still around 90s. He denies any chest pain or pressure, intermittent palpitations. His sore throat is slightly better. Shortness of breath has remained stable. MEDICATIONS: Reviewed as per medical reconciliation sheet which was personally reviewed. PHYSICAL EXAMINATION: VITAL SIGNS: Temperature 98, heart rate of 82, blood pressure 120/70, respiratory rate of 18, satur ating 97% on BiPAP. Off of BiPAP and oxygen is about 90% now on 6 L nasal cannula. HEENT: Normocephalic, atraumatic. Morbidly obese gentleman. Pupils are equal and round. NECK: Shows previous tracheostomy which is closed now. CARDIOVASCULAR: Irregularly irregular, systolic murmur. PULMONARY: With mild rhonchi, diffuse. GASTROINTESTINAL: Obese, soft, nontender. EXTREMITIES: With diffuse lower extremity edema in dressing. NEUROLOGIC: Awake and alert. Responds appropriately. PSYCHIATRIC: Appears to be calm and pleasant. LABORATORY: WBC of 7.5, hemoglobin 8.3, platelets 265. Sodium 139, potassium 4.2, BUN of 44, creat inine 3.99, glucose of 79. OB stools are negative x3. ASSESSMENT AND PLAN: 1. Atrial fibrillation, chronic. 2. Hypoxic respiratory failure, status post intubation, currently extubated successfully, but he st ill remains hypoxemic. 3. Severe anemia, probably of chronic disease. 4. Renal failure on dialysis now. 5. History of previous gastrointestinal bleeding, currently remains stable with negative OB stool x 3. 6. Pleural effusion, status post thoracentesis. 7. History of hypertension, currently stable, off all medication. RECOMMENDATIONS: Pulmonary care, will continue with management by mounter team. The patient continues to be off of the vent, hypoxemic, but stable at this point. CPAP overnight to be continue d. I have discussed anticoagulation in detail with the patient now that he is awake and alert. Ris k of bleed discussed with him. It was felt that since guaiac stools are negative x3, anemia is most likely not related to any sign of bleeding, and given his multiple risk factors he will be at risk of stroke with atrial fibrillation. I will switch him from aspirin to Eliquis, a low dose of 2.5 b. i.d., and will continue to monitor him. Continue with the ICU care. More than 35 minutes of critical care time was spent with this patient excluding any procedures. Dictated By: GARDENIA RAZO/GREGORY Conf#: [id number] DID#: [id number] CC: GIUSEPPE BREAUX HYDROLOGY TEACHER;*EndCC*
--- NOTE | 2016-09-21 10:40 | PN ---
Date/Time of Note Date/Time of Note DATE: 09/21/16 TIME: 10:37 Assessment/Plan VTE Prophylaxis VTE Prophylaxis Intervention: contraindicated Lines/Catheters IV [facility] Urinary Cath still in place: Yes Assessment/Plan Chief Complaint/Hosp Course Assessment and plan 1. Left great toe osteomyelitis. Patient is status post evaluation by vascular consult. Podiatry following for left foot wound. Continue with antibiotics per ID. 2. Acute on chronic respiratory failure, hypoxic and hypercapnic. S/P intubation on 09/06/2016 because of worsening respiratory distress. Less pulmonary congestion noted on recent x-ray. Continue on dialysis. Pulmonology following. continue bronchodilators 3. Ventilator associated pneumonia. Sputum culture positive for Acinetobacter baumannii. Continue aspiration precautions. Antibiotics per ID 4. Pulmonary hypertension. Continue supplemental oxygen. 5. Acute on chronic kidney disease. Continue on hemodialysis. Nephrology following. Monitor renal panel 6. Congestive heart failure exacerbation. Acute on chronic diastolic dysfunction. Continue hemodialysis as per nephrology. 7. Type 2 diabetes mellitus. Hemoglobin A1c 5.8. Continue sliding scale insulin. Adjust as needed 8. Essential hypertension. Continue antihypertensives. 9. Atrial fibrillation. Rate controlled. Cardiology following. Therapeutic anticoagulation will be deferred to cardiology. 10. Dyslipidemia. Continue statins. 11. Gout. Continue allopurinol. 12. History of Major depression. We'll continue Lyrica once able to tolerate oral intake 13. Morbid obesity 14. Fluid, electrolytes, and nutrition. Continue NGT feedings. 15. Deep vein thrombosis prophylaxis. On hold for now due to anemia 16. Gastrointestinal prophylaxis. Histamine 2 blockers. Disposition and plan: Off of mechanical ventilation at this time. Continue O2 supplement. Continue on dialysis for fluid removal. Plan to transfer to telemetry Discussed plan of care with Critical care time: 30 minutes Problems: Subjective 24 Hr Interval Summary Free Text/Dictation on o2 6lnc and tolerating well.family at bedside. reports better breathing Exam/Review of Systems Vital Signs Vitals Vital Signs Date Time Temp Pulse Resp B/P Pulse Ox O2 Delivery O2 Flow Rate FiO2 09/21/16 09:30 89 09/21/16 08:30 18 09/21/16 08:00 98.0 119/67 96 Nasal Cannula 6.0 09/21/16 04:50 35 Intake and Output 09/20/16 09/20/1617 14:59 22:59 06:59 Intake Total 350 ml 990 ml 100 ml Output Total 4550 ml 15 ml Balance 350 ml -3560 ml 85 ml Exam General: alert and oriented. no s/s of distress Eyes: pupils equal round, Anicteric sclera Neck: Supple nontender, no JVD Cardiac: Regular rate. Slight murmur auscultated Pulmonary: no obvious wheezing, minimally diminished at bases GI: Obese, bowel sounds active Extremities: Bilateral lower extremity edema Skin: Surgical site of lower extremity clean dry and intact Neurologic: Somnolent, is alert to person place and situation Results Result Diagram: 09/21/16 0440 09/21/16 0440 Results 24 hrs Laboratory Tests Test 09/20/16 11:40 09/20/16 12:11 09/20/16 17:33 09/21/16 00:30 Stool Occult Blood NEGATIVE Bedside Glucose 80 95 107 Test 09/21/16 04:40 09/21/16 08:07 Anion Gap 15 Basophils # 0.0 Basophils % 0.6 Blood Morphology Comment Blood Urea Nitrogen 44 #H Calcium Level 8.2 L Carbon Dioxide Level 29 Chloride Level 99 Creatinine 3.99 H Eosinophils # 0.3 Eosinophils % 4.0 Glucose Level 79 Hematocrit 25.1 L Hemoglobin 8.3 L Lymphocytes # 0.8 Lymphocytes % 10.8 L Mean Corpuscular Hemoglobin 25.7 L Mean Corpuscular Hemoglobin Concent 33.1 Mean Corpuscular Volume 77.5 L Mean Platelet Volume 8.9 Monocytes # 0.6 Monocytes % 7.8 Neutrophils # 5.8 Neutrophils % 76.8 Nucleated Red Blood Cells # 0.0 Nucleated Red Blood Cells % 0.0 Platelet Count 265 Potassium Level 4.2 Red Blood Count 3.24 L Red Cell Distribution Width 20.7 H Sodium Level 139 White Blood Count 7.5 Bedside Glucose 75 Medications Medications Current Medications Morphine Sulfate (morphine) 2 mg Q4H PRN IV SEVERE PAIN LEVEL 7-10 Last administered on 09/17/16 02:04; Admin Dose 2 MG; Start 08/13/16 at 17:30 Fish Oil (Fish Oil) 1,000 mg DAILY PO Last administered on 09/21/16 08:23; Admin Dose 1,000 MG; Start 08/14/16 at 09:00 Miscellaneous Information 1 ea NOTE XX ; Start 08/13/16 at 18:00 Glucose (Glutose) 15 gm Q15M PRN PO DECREASED GLUCOSE; Start 08/13/16 at 18:00 Glucose (Glutose) 22.5 gm Q15M PRN PO DECREASED GLUCOSE; Start 08/13/16 at 18: 00 Dextrose (D50w Syringe) 25 ml Q15M PRN IV DECREASED GLUCOSE Last administered on 09/20/16 06:28; Admin Dose 25 ML; Start 08/13/16 at 18:00 Dextrose (D50w Syringe) 50 ml Q15M PRN IV DECREASED GLUCOSE; Start 08/13/16 at 18:00 Glucagon (Glucagen) 1 mg Q15M PRN IM DECREASED GLUCOSE; Start 08/13/16 at 18: 00 Glucose (Glutose) 15 gm Q15M PRN BUCCAL DECREASED GLUCOSE; Start 08/13/16 at 18:00 Sodium Hypochlorite (Dakin'S (09/19 Strength)) 1 applic DAILY IRR Last administered on 09/20/16 11:38; Admin Dose 1 APPLIC; Start 08/13/16 at 20:00 IV Flush (NS 10 ml) 10 ml PRN PRN IV IV PTOTOCOL; Start 08/14/16 at 17:00 Ondansetron HCl (Zofran Inj) 4 mg Q4H PRN IV NAUSEA AND/OR VOMITING; Start 08/16/16 at 12:30 Phenol 1 lozenge 1 lozenge Q1H PRN MT DRY MOUTH Last administered on 08/20/16at 21:28; Admin Dose 1 LOZENGE; Start 08/20/16 at 20:30 Norepinephrine/ Dextrose (Levophed/D5W) 500 ml @ 1.87 mls/hr TITRATE IV ; Start 09/09/16 at 08:00 Lorazepam (Ativan) 2 mg Q4H PRN IV anxiety Last administered on 09/19/16 23:43 ; Admin Dose 2 MG; Start 09/09/16 at 10:30 Insulin Glargine 10 unit 10 unit HS SC Last administered on 09/20/16 21:48; Admin Dose 10 UNIT; Start 09/10/16 at 22:00 Colistimethate Sodium/Sodium Chloride (Coly-Mycin/NS) 100 ml @ 50 mls/hr Q24H IVPB Last administered on 09/20/16 17:31; Admin Dose 50 MLS/HR; Start at 16:00 Acetylcysteine (Nac) 600 mg BID GTB Last administered on 09/21/16 08:24; Admin Dose 600 MG; Start 09/12/16 at 09:00 Allopurinol (Zyloprim) 100 mg DAILY GTB Last administered on 09/21/16 08:25; Admin Dose 100 MG; Start 09/12/16 at 09:00 Ascorbic Acid (Vitamin C) 500 mg DAILY GTB Last administered on 09/21/16 08:25 ; Admin Dose 500 MG; Start 09/12/16 at 09:00 Atorvastatin Calcium (Lipitor) 10 mg QHS GTB Last administered on 09/20/16 21: 20; Admin Dose 10 MG; Start 09/12/16 at 21:00 Cholecalciferol (Vitamin D) 1,000 unit DAILY GTB Last administered on 09/21/16 08:22; Admin Dose 1,000 UNIT; Start 09/12/16 at 09:00 Diphenhydramine HCl (Benadryl) 25 mg Q6H PRN GTB ITCHING; Start 09/12/16 at 08 :30 Famotidine (Pepcid) 20 mg DAILY GTB Last administered on 09/21/16 08:24; Admin Dose 20 MG; Start 09/12/16 at 09:00 Ferrous Sulfate (Feosol Liquid Cup) 300 mg BID GTB Last administered on 08:25; Admin Dose 300 MG; Start 09/12/16 at 09:00 Fluconazole (Diflucan) 100 mg DAILY GTB Last administered on 09/21/16 08:24; Admin Dose 100 MG; Start 09/12/16 at 09:00 Fluoxetine HCl (Prozac) 20 mg DAILY GTB Last administered on 09/21/16 08:24; Admin Dose 20 MG; Start 09/12/16 at 10:00 Lactobacillus Acidoph/Bulgaricus (Floranex) 1 tab TID GTB Last administered on 09/21/16 08:24; Admin Dose 1 TAB; Start 09/12/16 at 09:00 Pyridoxine HCl (Vitamin B6) 100 mg DAILY GTB Last administered on 09/21/16 08: 24; Admin Dose 100 MG; Start 09/12/16 at 09:00 Vitamin E (Vitamin E) 400 units DAILY GTB Last administered on 09/21/16 08:24; Admin Dose 400 UNITS; Start 09/12/16 at 10:00 Acetaminophen (Tylenol Liquid) 650 mg Q6H PRN GTB PAIN 1-3 OR TEMP; Start at 08:30 Acetaminophen/ Hydrocodone Bitart ([place] (5/325)) 1 tab Q6H PRN GTB MODERATE PAIN LEVEL 4-6; Start 09/12/16 at 11:30 Acetaminophen/ Hydrocodone Bitart ([place] (5/325)) 2 tab Q6H PRN GTB MODERATE PAIN LEVEL 4-6; Start 09/12/16 at 13:00 Lorazepam (Ativan) 1 mg Q6 PRN GTB ANXIETY; Start 09/12/16 at 08:30 Lorazepam (Ativan) 1 mg HS PRN GTB ANXIETY, HELP WITH SLEEP Last administered on 09/20/16 21:39; Admin Dose 1 MG; Start 09/12/16 at 08:30 Simethicone (Mylicon) 80 mg Q6H PRN GTB INTESTINAL SPASMS/CRAMPING Last administered on 09/20/16 21:48; Admin Dose 80 MG; Start 09/12/16 at 11:30 Zolpidem Tartrate (Ambien) 10 mg HS PRN GTB INSOMNIA Last administered on 21:16; Admin Dose 10 MG; Start 09/12/16 at 08:30 Docusate Sodium 100 mg 100 mg Q12 PRN GTB CONSTIPATION; Start 09/12/16 at 08: 30 Propofol 100 ml @ 3.915 mls/ hr TITRATE PRN IV maintain rass -2 to -3 Last administered on 09/17/16 13:42; Admin Dose 7.83 MLS/HR; Start 09/13/16 at 19:30 Vancomycin HCl/ Sodium Chloride (Vancocin/NS) 500 ml @ 125 mls/hr Q72H IVPB Last administered on 09/18/16 14:30; Admin Dose 125 MLS/HR; Start 09/15/16 at 12:00 Dimethicone (Blistex Lip [place]) 1 applic Q2H PRN TOP CHAPPED LIPS; Start at 16:30 Ferrous Gluconate (Fergon) 325 mg BID PO Last administered on 09/21/16 08:25; Admin Dose 325 MG; Start 09/17/16 at 21:00 Diagnostic Test (Pha) (Accucheck) 1 ea 02 XX ; Start 09/21/16 at 02:00 Apixaban (Eliquis) 2.5 mg BID PO Last administered on 09/21/16 08:25; Admin Dose 2.5 MG; Start 09/21/16 at 09:00 GIUSEPPE BREAUX Sep 21, 2016 10:39
--- NOTE | 2016-09-21 11:06 | CONS ---
Date/Time of Note Date/Time of Note DATE: 09/21/16 TIME: 11:04 Consult Date/Type/Reason Admit Date/Time Aug 13, 2016 at 16:30 Initial Consult Date 08/13/16 Type of Consultation: pulmonary Ordering Provider: KELLEN MEDINA MD Subjective Patient remained stable postextubation No respiratory distress Hemodynamically stable Pending further hemodialysis today Objective Vital Signs Date Time Temp Pulse Resp B/P Pulse Ox O2 Delivery O2 Flow Rate FiO2 09/21/16 10:00 91 18 126/70 94 Nasal Cannula 6.0 09/21/16 08:00 98.0 09/21/16 04:50 35 Intake and Output 09/20/16 09/20/16 09/21/16 14:59 22:59 06:59 Intake Total 350 ml 990 ml 100 ml Output Total 4550 ml 15 ml Balance 350 ml -3560 ml 85 ml PHYSICAL EXAMINATION GENERAL: Elderly gentleman, nasal cannula oxygen awake alert oriented VITAL SIGNS: see below. HEENT: Pupils equal, round, and reactive to light. CARDIAC: S1, S2, CHEST: Diminished air entry bilaterally. ABDOMEN: Mildly distended. No bowel sounds. EXTREMITIES: No cyanosis, clubbing, edema +2 NEUROLOGIC: Generalized weakness Results/Medications Result Diagram: 09/21/16 0440 09/21/16 0440 Results 24 hrs Laboratory Tests Test 09/20/16 11:40 09/20/16 12:11 09/20/16 17:33 09/21/16 00:30 Stool Occult Blood NEGATIVE Bedside Glucose 80 95 107 Test 09/21/16 04:40 09/21/16 08:07 Anion Gap 15 Basophils # 0.0 Basophils % 0.6 Blood Morphology Comment Blood Urea Nitrogen 44 #H Calcium Level 8.2 L Carbon Dioxide Level 29 Chloride Level 99 Creatinine 3.99 H Eosinophils # 0.3 Eosinophils % 4.0 Glucose Level 79 Hematocrit 25.1 L Hemoglobin 8.3 L Lymphocytes # 0.8 Lymphocytes % 10.8 L Mean Corpuscular Hemoglobin 25.7 L Mean Corpuscular Hemoglobin Concent 33.1 Mean Corpuscular Volume 77.5 L Mean Platelet Volume 8.9 Monocytes # 0.6 Monocytes % 7.8 Neutrophils # 5.8 Neutrophils % 76.8 Nucleated Red Blood Cells # 0.0 Nucleated Red Blood Cells % 0.0 Platelet Count 265 Potassium Level 4.2 Red Blood Count 3.24 L Red Cell Distribution Width 20.7 H Sodium Level 139 White Blood Count 7.5 Bedside Glucose 75 Medications Current Medications Morphine Sulfate (morphine) 2 mg Q4H PRN IV SEVERE PAIN LEVEL 7-10 Last administered on 09/17/16 02:04; Admin Dose 2 MG; Start 08/13/16 at 17:30 Fish Oil (Fish Oil) 1,000 mg DAILY PO Last administered on 09/21/16 08:23; Admin Dose 1,000 MG; Start 08/14/16 at 09:00 Miscellaneous Information 1 ea NOTE XX ; Start 08/13/16 at 18:00 Glucose (Glutose) 15 gm Q15M PRN PO DECREASED GLUCOSE; Start 08/13/16 at 18:00 Glucose (Glutose) 22.5 gm Q15M PRN PO DECREASED GLUCOSE; Start 08/13/16 at 18: 00 Dextrose (D50w Syringe) 25 ml Q15M PRN IV DECREASED GLUCOSE Last administered on 09/20/16 06:28; Admin Dose 25 ML; Start 08/13/16 at 18:00 Dextrose (D50w Syringe) 50 ml Q15M PRN IV DECREASED GLUCOSE; Start 08/13/16 at 18:00 Glucagon (Glucagen) 1 mg Q15M PRN IM DECREASED GLUCOSE; Start 08/13/16 at 18: 00 Glucose (Glutose) 15 gm Q15M PRN BUCCAL DECREASED GLUCOSE; Start 08/13/16 at 18:00 Sodium Hypochlorite (Dakin'S (1/4 Strength)) 1 applic DAILY IRR Last administered on 09/20/16 11:38; Admin Dose 1 APPLIC; Start 08/13/16 at 20:00 IV Flush (NS 10 ml) 10 ml PRN PRN IV IV PTOTOCOL; Start 08/14/16 at 17:00 Ondansetron HCl (Zofran Inj) 4 mg Q4H PRN IV NAUSEA AND/OR VOMITING; Start 08/16/16 at 12:30 Phenol 1 lozenge 1 lozenge Q1H PRN MT DRY MOUTH Last administered on 08/20/16at 21:28; Admin Dose 1 LOZENGE; Start 08/20/16 at 20:30 Norepinephrine/ Dextrose (Levophed/D5W) 500 ml @ 1.87 mls/hr TITRATE IV ; Start 09/09/16 at 08:00 Lorazepam (Ativan) 2 mg Q4H PRN IV anxiety Last administered on 09/19/16 23:43 ; Admin Dose 2 MG; Start 09/09/16 at 10:30 Insulin Glargine 10 unit 10 unit HS SC Last administered on 09/20/16 21:48; Admin Dose 10 UNIT; Start 09/10/16 at 22:00 Colistimethate Sodium/Sodium Chloride (Coly-Mycin/NS) 100 ml @ 50 mls/hr Q24H IVPB Last administered on 09/20/16 17:31; Admin Dose 50 MLS/HR; Start at 16:00 Acetylcysteine (Nac) 600 mg BID GTB Last administered on 09/21/16 08:24; Admin Dose 600 MG; Start 09/12/16 at 09:00 Allopurinol (Zyloprim) 100 mg DAILY GTB Last administered on 09/21/16 08:25; Admin Dose 100 MG; Start 09/12/16 at 09:00 Ascorbic Acid (Vitamin C) 500 mg DAILY GTB Last administered on 09/21/16 08:25 ; Admin Dose 500 MG; Start 09/12/16 at 09:00 Atorvastatin Calcium (Lipitor) 10 mg QHS GTB Last administered on 09/20/16 21: 20; Admin Dose 10 MG; Start 09/12/16 at 21:00 Cholecalciferol (Vitamin D) 1,000 unit DAILY GTB Last administered on 09/21/16 08:22; Admin Dose 1,000 UNIT; Start 09/12/16 at 09:00 Diphenhydramine HCl (Benadryl) 25 mg Q6H PRN GTB ITCHING; Start 09/12/16 at 08 :30 Famotidine (Pepcid) 20 mg DAILY GTB Last administered on 09/21/16 08:24; Admin Dose 20 MG; Start 09/12/16 at 09:00 Ferrous Sulfate (Feosol Liquid Cup) 300 mg BID GTB Last administered on 08:25; Admin Dose 300 MG; Start 09/12/16 at 09:00 Fluconazole (Diflucan) 100 mg DAILY GTB Last administered on 09/21/16 08:24; Admin Dose 100 MG; Start 09/12/16 at 09:00 Fluoxetine HCl (Prozac) 20 mg DAILY GTB Last administered on 09/21/16 08:24; Admin Dose 20 MG; Start 09/12/16 at 10:00 Lactobacillus Acidoph/Bulgaricus (Floranex) 1 tab TID GTB Last administered on 09/21/16 08:24; Admin Dose 1 TAB; Start 09/12/16 at 09:00 Pyridoxine HCl (Vitamin B6) 100 mg DAILY GTB Last administered on 09/21/16 08: 24; Admin Dose 100 MG; Start 09/12/16 at 09:00 Vitamin E (Vitamin E) 400 units DAILY GTB Last administered on 09/21/16 08:24; Admin Dose 400 UNITS; Start 09/12/16 at 10:00 Acetaminophen (Tylenol Liquid) 650 mg Q6H PRN GTB PAIN 1-3 OR TEMP; Start at 08:30 Acetaminophen/ Hydrocodone Bitart ([place] (5/325)) 1 tab Q6H PRN GTB MODERATE PAIN LEVEL 4-6; Start 09/12/16 at 11:30 Acetaminophen/ Hydrocodone Bitart ([place] (5/325)) 2 tab Q6H PRN GTB MODERATE PAIN LEVEL 4-6; Start 09/12/16 at 13:00 Lorazepam (Ativan) 1 mg Q6 PRN GTB ANXIETY; Start 09/12/16 at 08:30 Lorazepam (Ativan) 1 mg HS PRN GTB ANXIETY, HELP WITH SLEEP Last administered on 09/20/16 21:39; Admin Dose 1 MG; Start 09/12/16 at 08:30 Simethicone (Mylicon) 80 mg Q6H PRN GTB INTESTINAL SPASMS/CRAMPING Last administered on 09/20/16 21:48; Admin Dose 80 MG; Start 09/12/16 at 11:30 Zolpidem Tartrate (Ambien) 10 mg HS PRN GTB INSOMNIA Last administered on 21:16; Admin Dose 10 MG; Start 09/12/16 at 08:30 Docusate Sodium 100 mg 100 mg Q12 PRN GTB CONSTIPATION; Start 09/12/16 at 08: 30 Propofol 100 ml @ 3.915 mls/ hr TITRATE PRN IV maintain rass -2 to -3 Last administered on 09/17/16 13:42; Admin Dose 7.83 MLS/HR; Start 09/13/16 at 19:30 Vancomycin HCl/ Sodium Chloride (Vancocin/NS) 500 ml @ 125 mls/hr Q72H IVPB Last administered on 09/18/16 14:30; Admin Dose 125 MLS/HR; Start 09/15/16 at 12:00 Dimethicone (Blistex Lip [place]) 1 applic Q2H PRN TOP CHAPPED LIPS; Start at 16:30 Ferrous Gluconate (Fergon) 325 mg BID PO Last administered on 09/21/16 08:25; Admin Dose 325 MG; Start 09/17/16 at 21:00 Diagnostic Test (Pha) (Accucheck) 1 ea 02 XX ; Start 09/21/16 at 02:00 Apixaban (Eliquis) 2.5 mg BID PO Last administered on 09/21/16 08:25; Admin Dose 2.5 MG; Start 09/21/16 at 09:00 Assessment/Plan Chief Complaint/Hosp Course Assessment and plan 1. Acute on chronic respiratory failure, hypoxic and hypercapnic. S/P intubation on 09/06/2016 because of worsening respiratory distress. Stable postextubation. Improving pulmonary edema radiographically. 2. Bilateral pneumonia and pulmonary edema with hypoxemic respiratory failure. Continue infectious disease recommendations. 3..Pulmonary hypertension. Continue supplemental oxygen. 4. End-stage renal failure now on hemodialysis. Continue nephrology recommendations 5. Dysphagia continue tube feeding 6. Atrial fibrillation currently rate controlled 7. Lower extremity ulceration and wounds with osteomyelitis, continue wound care and antibiotics Problems: EDNA BUSTILLO MD, [facility] Sep 21, 2016 11:06
--- NOTE | 2016-09-21 11:38 | CONS ---
Date/Time of Note Date/Time of Note DATE: 09/21/16 TIME: 11:36 Consult Date/Type/Reason Admit Date/Time Aug 13, 2016 at 16:30 Initial Consult Date 08/13/16 Type of Consultation: ID Ordering Provider: KELLEN MEDINA MD Subjective no events, alert, getting HD, feels good, no fevers, nad Objective Vital Signs Date Time Temp Pulse Resp B/P Pulse Ox O2 Delivery O2 Flow Rate FiO2 09/21/16 10:00 91 18 126/70 94 Nasal Cannula 6.0 09/21/16 08:00 98.0 09/21/16 04:50 35 Intake and Output 09/20/16 09/20/16 09/21/16 15:00 23:00 07:00 Intake Total 350 ml 1040 ml 50 ml Output Total 4550 ml 15 ml Balance 350 ml -3510 ml 35 ml Results/Medications Result Diagram: 09/21/16 0440 09/21/16 0440 Results 24 hrs Laboratory Tests Test 09/20/16 11:40 09/20/16 12:11 09/20/16 17:33 09/21/16 00:30 Stool Occult Blood NEGATIVE Bedside Glucose 80 95 107 Test 09/21/16 04:40 09/21/16 08:07 Anion Gap 15 Basophils # 0.0 Basophils % 0.6 Blood Morphology Comment Blood Urea Nitrogen 44 #H Calcium Level 8.2 L Carbon Dioxide Level 29 Chloride Level 99 Creatinine 3.99 H Eosinophils # 0.3 Eosinophils % 4.0 Glucose Level 79 Hematocrit 25.1 L Hemoglobin 8.3 L Lymphocytes # 0.8 Lymphocytes % 10.8 L Mean Corpuscular Hemoglobin 25.7 L Mean Corpuscular Hemoglobin Concent 33.1 Mean Corpuscular Volume 77.5 L Mean Platelet Volume 8.9 Monocytes # 0.6 Monocytes % 7.8 Neutrophils # 5.8 Neutrophils % 76.8 Nucleated Red Blood Cells # 0.0 Nucleated Red Blood Cells % 0.0 Platelet Count 265 Potassium Level 4.2 Red Blood Count 3.24 L Red Cell Distribution Width 20.7 H Sodium Level 139 White Blood Count 7.5 Bedside Glucose 75 Medications Current Medications Morphine Sulfate (morphine) 2 mg Q4H PRN IV SEVERE PAIN LEVEL 7-10 Last administered on 09/17/16t 02:04; Admin Dose 2 MG; Start 08/13/16 at 17:30 Fish Oil (Fish Oil) 1,000 mg DAILY PO Last administered on 09/21/16 08:23; Admin Dose 1,000 MG; Start 08/14/16 at 09:00 Miscellaneous Information 1 ea NOTE XX ; Start 08/13/16 at 18:00 Glucose (Glutose) 15 gm Q15M PRN PO DECREASED GLUCOSE; Start 08/13/16 at 18:00 Glucose (Glutose) 22.5 gm Q15M PRN PO DECREASED GLUCOSE; Start 08/13/16 at 18: 00 Dextrose (D50w Syringe) 25 ml Q15M PRN IV DECREASED GLUCOSE Last administered on 09/20/16 06:28; Admin Dose 25 ML; Start 08/13/16 at 18:00 Dextrose (D50w Syringe) 50 ml Q15M PRN IV DECREASED GLUCOSE; Start 08/13/16 at 18:00 Glucagon (Glucagen) 1 mg Q15M PRN IM DECREASED GLUCOSE; Start 08/13/16 at 18: 00 Glucose (Glutose) 15 gm Q15M PRN BUCCAL DECREASED GLUCOSE; Start 08/13/16 at 18:00 Sodium Hypochlorite (Dakin'S (/4 Strength)) 1 applic DAILY IRR Last administered on 09/20/16 11:38; Admin Dose 1 APPLIC; Start 08/13/16 at 20:00 IV Flush (NS 10 ml) 10 ml PRN PRN IV IV PTOTOCOL; Start 08/14/16 at 17:00 Ondansetron HCl (Zofran Inj) 4 mg Q4H PRN IV NAUSEA AND/OR VOMITING; Start 08/16/16 at 12:30 Phenol 1 lozenge 1 lozenge Q1H PRN MT DRY MOUTH Last administered on 08/20/16at 21:28; Admin Dose 1 LOZENGE; Start 08/20/16 at 20:30 Norepinephrine/ Dextrose (Levophed/D5W) 500 ml @ 1.87 mls/hr TITRATE IV ; Start 09/09/16 at 08:00 Lorazepam (Ativan) 2 mg Q4H PRN IV anxiety Last administered on 09/19/16 23:43 ; Admin Dose 2 MG; Start 09/09/16 at 10:30 Insulin Glargine 10 unit 10 unit HS SC Last administered on 09/20/16 21:48; Admin Dose 10 UNIT; Start 09/10/16 at 22:00 Colistimethate Sodium/Sodium Chloride (Coly-Mycin/NS) 100 ml @ 50 mls/hr Q24H IVPB Last administered on 09/20/16 17:31; Admin Dose 50 MLS/HR; Start at 16:00 Acetylcysteine (Nac) 600 mg BID GTB Last administered on 09/21/16 08:24; Admin Dose 600 MG; Start 09/12/16 at 09:00 Allopurinol (Zyloprim) 100 mg DAILY GTB Last administered on 09/21/16 08:25; Admin Dose 100 MG; Start 09/12/16 at 09:00 Ascorbic Acid (Vitamin C) 500 mg DAILY GTB Last administered on 09/21/16 08:25 ; Admin Dose 500 MG; Start 09/12/16 at 09:00 Atorvastatin Calcium (Lipitor) 10 mg QHS GTB Last administered on 09/20/16 21: 20; Admin Dose 10 MG; Start 09/12/16 at 21:00 Cholecalciferol (Vitamin D) 1,000 unit DAILY GTB Last administered on 09/21/16 08:22; Admin Dose 1,000 UNIT; Start 09/12/16 at 09:00 Diphenhydramine HCl (Benadryl) 25 mg Q6H PRN GTB ITCHING; Start 09/12/16 at 08 :30 Famotidine (Pepcid) 20 mg DAILY GTB Last administered on 09/21/16 08:24; Admin Dose 20 MG; Start 09/12/16 at 09:00 Ferrous Sulfate (Feosol Liquid Cup) 300 mg BID GTB Last administered on 08:25; Admin Dose 300 MG; Start 09/12/16 at 09:00 Fluconazole (Diflucan) 100 mg DAILY GTB Last administered on 09/21/16 08:24; Admin Dose 100 MG; Start 09/12/16 at 09:00 Fluoxetine HCl (Prozac) 20 mg DAILY GTB Last administered on 09/21/16 08:24; Admin Dose 20 MG; Start 09/12/16 at 10:00 Lactobacillus Acidoph/Bulgaricus (Floranex) 1 tab TID GTB Last administered on 09/21/16 08:24; Admin Dose 1 TAB; Start 09/12/16 at 09:00 Pyridoxine HCl (Vitamin B6) 100 mg DAILY GTB Last administered on 09/21/16 08: 24; Admin Dose 100 MG; Start 09/12/16 at 09:00 Vitamin E (Vitamin E) 400 units DAILY GTB Last administered on 09/21/16 08:24; Admin Dose 400 UNITS; Start 09/12/16 at 10:00 Acetaminophen (Tylenol Liquid) 650 mg Q6H PRN GTB PAIN 1-3 OR TEMP; Start at 08:30 Acetaminophen/ Hydrocodone Bitart ([place] (5/325)) 1 tab Q6H PRN GTB MODERATE PAIN LEVEL 4-6; Start 09/12/16 at 11:30 Acetaminophen/ Hydrocodone Bitart ([place] (5/325)) 2 tab Q6H PRN GTB MODERATE PAIN LEVEL 4-6; Start 09/12/16 at 13:00 Lorazepam (Ativan) 1 mg Q6 PRN GTB ANXIETY; Start 09/12/16 at 08:30 Lorazepam (Ativan) 1 mg HS PRN GTB ANXIETY, HELP WITH SLEEP Last administered on 09/20/16 21:39; Admin Dose 1 MG; Start 09/12/16 at 08:30 Simethicone (Mylicon) 80 mg Q6H PRN GTB INTESTINAL SPASMS/CRAMPING Last administered on 09/20/16 21:48; Admin Dose 80 MG; Start 09/12/16 at 11:30 Zolpidem Tartrate (Ambien) 10 mg HS PRN GTB INSOMNIA Last administered on 21:16; Admin Dose 10 MG; Start 09/12/16 at 08:30 Docusate Sodium 100 mg 100 mg Q12 PRN GTB CONSTIPATION; Start 09/12/16 at 08: 30 Propofol 100 ml @ 3.915 mls/ hr TITRATE PRN IV maintain rass -2 to -3 Last administered on 09/17/16 13:42; Admin Dose 7.83 MLS/HR; Start 09/13/16 at 19:30 Vancomycin HCl/ Sodium Chloride (Vancocin/NS) 500 ml @ 125 mls/hr Q72H IVPB Last administered on 09/18/16 14:30; Admin Dose 125 MLS/HR; Start 09/15/16 at 12:00 Dimethicone (Blistex Lip [place]) 1 applic Q2H PRN TOP CHAPPED LIPS; Start at 16:30 Ferrous Gluconate (Fergon) 325 mg BID PO Last administered on 09/21/16 08:25; Admin Dose 325 MG; Start 09/17/16 at 21:00 Diagnostic Test (Pha) (Accucheck) 1 ea 02 XX ; Start 09/21/16 at 02:00 Apixaban (Eliquis) 2.5 mg BID PO Last administered on 09/21/16 08:25; Admin Dose 2.5 MG; Start 09/21/16 at 09:00 Assessment/Plan Chief Complaint/Hosp Course INDWELLINGS: PICC line, right chest PermCath. ANTIMICROBIALS: 1. Vancomycin. 2. Colistin. PHYSICAL EXAMINATION: GENERAL: Morbidly obese, well-developed, middle-aged man, who is alert, in no distress. HEENT: Head atraumatic, normocephalic. Sclerae anicteric. Buccal mucosa dry. NECK: Supple. CHEST: Chest rise is symmetrical. Breath sounds diminished to the bases. HEART: S1, S2. ABDOMEN: Soft, bowel sounds present. EXTREMITIES: With bilateral lower extremities Patrick wrapped. ASSESSMENT: 1. Status post acute respiratory failure. 2. Status post staph aureus septicemia. 3. Left toe osteomyelitis, completing treatment. 4. Morbid obesity. 5. End-stage renal disease, hemodialysis dependent. 6. Diabetes. PLAN: The patient remains stable, completing antibiotics, last day 09/27/2016. DW pt/family at bedside [facility] staff Problems: JAMEY VAZQUEZ NP Sep 21, 2016 11:38
[2016-09-21] MEDS: VANCOMYCIN 2 GM in SOD CHLORIDE 0.9% 500 ML IVPB SCH (12:11)
--- NOTE | 2016-09-21 14:39 | CONS ---
Date/Time of Note Date/Time of Note DATE: 09/21/16 TIME: 14:37 Assessment/Plan Assessment/Plan Additional Assessment/Plan 60 yo male with 1) Respiratory Failure S/p Extubation 2) HCAP 3) LORNA on CKD, Currently on HD 4) Volume Overload, Anasarca 5) Pulm HTN 6) Morbid Obesity 7) Bilateral lower extremities acute on chronic cellulitis with left toe osteomyelitis. 8) Status post oxacillin-sensitive Staphylococcus aureus septicemia. S/p Dry UF today Repeat Chemistry in am Cont to monitor UO, Electrolytes and Renal function S/p Perma-cath, May need detention HD placement. CM consult Consultation Date/Type/Reason Admit Date/Time Aug 13, 2016 at 16:30 Initial Consult Date 08/13/16 Type of Consultation: Nephrology Referring Provider: KELLEN MEDINA MD 24 HR Interval Summary Free Text/Dictation S/p HD today. No complications Constitutional: requiring O2 Exam/Review of Systems Vital Signs Vitals Vital Signs Date Time Temp Pulse Resp B/P Pulse Ox O2 Delivery O2 Flow Rate FiO2 09/21/16 13:01 90 22 92 Nasal Cannula 6.0 09/21/16 13:00 122/64 09/21/16 12:00 98.0 09/21/16 04:50 35 Intake and Output 09/20/16 09/20/16 09/21/16 15:00 23:00 07:00 Intake Total 350 ml 1040 ml 50 ml Output Total 4550 ml 15 ml Balance 350 ml -3510 ml 35 ml Exam Constitutional: No distress ENMT: mucosa pink and moist Respiratory: crackles/rales, No labored breathing Cardiovascular: edema, regular rate and rhythm Gastrointestinal: non-tender, soft Extremities: edema 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: C[employer] SU[employer] ADVISOR 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, nl mental status Skin: No diaphoresis Results Result Diagram: 09/21/16 0440 09/21/16 0440 Results 24 hrs Laboratory Tests Test 09/20/16 17:33 09/21/16 00:30 09/21/16 04:40 09/21/16 08:07 Bedside Glucose 95 107 75 Anion Gap 15 Basophils # 0.0 Basophils % 0.6 Blood Morphology Comment Blood Urea Nitrogen 44 #H Calcium Level 8.2 L Carbon Dioxide Level 29 Chloride Level 99 Creatinine 3.99 H Eosinophils # 0.3 Eosinophils % 4.0 Glucose Level 79 Hematocrit 25.1 L Hemoglobin 8.3 L Lymphocytes # 0.8 Lymphocytes % 10.8 L Mean Corpuscular Hemoglobin 25.7 L Mean Corpuscular Hemoglobin Concent 33.1 Mean Corpuscular Volume 77.5 L Mean Platelet Volume 8.9 Monocytes # 0.6 Monocytes % 7.8 Neutrophils # 5.8 Neutrophils % 76.8 Nucleated Red Blood Cells # 0.0 Nucleated Red Blood Cells % 0.0 Platelet Count 265 Potassium Level 4.2 Red Blood Count 3.24 L Red Cell Distribution Width 20.7 H Sodium Level 139 White Blood Count 7.5 Test 09/21/16 09:40 09/21/16 12:09 Stool Occult Blood NEGATIVE Bedside Glucose 114 Medications Medications Current Medications Morphine Sulfate (morphine) 2 mg Q4H PRN IV SEVERE PAIN LEVEL 7-10 Last administered on 09/17/16 02:04; Admin Dose 2 MG; Start 08/13/16 at 17:30 Fish Oil (Fish Oil) 1,000 mg DAILY PO Last administered on 09/21/16 08:23; Admin Dose 1,000 MG; Start 08/14/16 at 09:00 Miscellaneous Information 1 ea NOTE XX ; Start 08/13/16 at 18:00 Glucose (Glutose) 15 gm Q15M PRN PO DECREASED GLUCOSE; Start 08/13/16 at 18:00 Glucose (Glutose) 22.5 gm Q15M PRN PO DECREASED GLUCOSE; Start 08/13/16 at 18: 00 Dextrose (D50w Syringe) 25 ml Q15M PRN IV DECREASED GLUCOSE Last administered on 09/20/16 06:28; Admin Dose 25 ML; Start 08/13/16 at 18:00 Dextrose (D50w Syringe) 50 ml Q15M PRN IV DECREASED GLUCOSE; Start 08/13/16 at 18:00 Glucagon (Glucagen) 1 mg Q15M PRN IM DECREASED GLUCOSE; Start 08/13/16 at 18: 00 Glucose (Glutose) 15 gm Q15M PRN BUCCAL DECREASED GLUCOSE; Start 08/13/16 at 18:00 Sodium Hypochlorite (Dakin'S (1/4 Strength)) 1 applic DAILY IRR Last administered on 09/20/16 11:38; Admin Dose 1 APPLIC; Start 08/13/16 at 20:00 IV Flush (NS 10 ml) 10 ml PRN PRN IV IV PTOTOCOL; Start 08/14/16 at 17:00 Ondansetron HCl (Zofran Inj) 4 mg Q4H PRN IV NAUSEA AND/OR VOMITING; Start 08/16/16 at 12:30 Phenol 1 lozenge 1 lozenge Q1H PRN MT DRY MOUTH Last administered on 08/20/16at 21:28; Admin Dose 1 LOZENGE; Start 08/20/16 at 20:30 Norepinephrine/ Dextrose (Levophed/D5W) 500 ml @ 1.87 mls/hr TITRATE IV ; Start 09/09/16 at 08:00 Lorazepam (Ativan) 2 mg Q4H PRN IV anxiety Last administered on 09/19/16 23:43 ; Admin Dose 2 MG; Start 09/09/16 at 10:30 Insulin Glargine 10 unit 10 unit HS SC Last administered on 09/20/16 21:48; Admin Dose 10 UNIT; Start 09/10/16 at 22:00 Colistimethate Sodium/Sodium Chloride (Coly-Mycin/NS) 100 ml @ 50 mls/hr Q24H IVPB Last administered on 09/20/16 17:31; Admin Dose 50 MLS/HR; Start at 16:00 Acetylcysteine (Nac) 600 mg BID GTB Last administered on 09/21/16 08:24; Admin Dose 600 MG; Start 09/12/16 at 09:00 Allopurinol (Zyloprim) 100 mg DAILY GTB Last administered on 09/21/16 08:25; Admin Dose 100 MG; Start 09/12/16 at 09:00 Ascorbic Acid (Vitamin C) 500 mg DAILY GTB Last administered on 09/21/16 08:25 ; Admin Dose 500 MG; Start 09/12/16 at 09:00 Atorvastatin Calcium (Lipitor) 10 mg QHS GTB Last administered on 09/20/16 21: 20; Admin Dose 10 MG; Start 09/12/16 at 21:00 Cholecalciferol (Vitamin D) 1,000 unit DAILY GTB Last administered on 09/21/16 08:22; Admin Dose 1,000 UNIT; Start 09/12/16 at 09:00 Diphenhydramine HCl (Benadryl) 25 mg Q6H PRN GTB ITCHING; Start 09/12/16 at 08 :30 Famotidine (Pepcid) 20 mg DAILY GTB Last administered on 09/21/16 08:24; Admin Dose 20 MG; Start 09/12/16 at 09:00 Ferrous Sulfate (Feosol Liquid Cup) 300 mg BID GTB Last administered on 08:25; Admin Dose 300 MG; Start 09/12/16 at 09:00 Fluconazole (Diflucan) 100 mg DAILY GTB Last administered on 09/21/16 08:24; Admin Dose 100 MG; Start 09/12/16 at 09:00 Fluoxetine HCl (Prozac) 20 mg DAILY GTB Last administered on 09/21/16 08:24; Admin Dose 20 MG; Start 09/12/16 at 10:00 Lactobacillus Acidoph/Bulgaricus (Floranex) 1 tab TID GTB Last administered on 09/21/16 12:11; Admin Dose 1 TAB; Start 09/12/16 at 09:00 Pyridoxine HCl (Vitamin B6) 100 mg DAILY GTB Last administered on 09/21/16 08: 24; Admin Dose 100 MG; Start 09/12/16 at 09:00 Vitamin E (Vitamin E) 400 units DAILY GTB Last administered on 09/21/16 08:24; Admin Dose 400 UNITS; Start 09/12/16 at 10:00 Acetaminophen (Tylenol Liquid) 650 mg Q6H PRN GTB PAIN 1-3 OR TEMP; Start at 08:30 Acetaminophen/ Hydrocodone Bitart ([place] (5/325)) 1 tab Q6H PRN GTB MODERATE PAIN LEVEL 4-6; Start 09/12/16 at 11:30 Acetaminophen/ Hydrocodone Bitart ([place] (5/325)) 2 tab Q6H PRN GTB MODERATE PAIN LEVEL 4-6; Start 09/12/16 at 13:00 Lorazepam (Ativan) 1 mg Q6 PRN GTB ANXIETY; Start 09/12/16 at 08:30 Lorazepam (Ativan) 1 mg HS PRN GTB ANXIETY, HELP WITH SLEEP Last administered on 09/20/16 21:39; Admin Dose 1 MG; Start 09/12/16 at 08:30 Simethicone (Mylicon) 80 mg Q6H PRN GTB INTESTINAL SPASMS/CRAMPING Last administered on 09/20/16 21:48; Admin Dose 80 MG; Start 09/12/16 at 11:30 Zolpidem Tartrate (Ambien) 10 mg HS PRN GTB INSOMNIA Last administered on 21:16; Admin Dose 10 MG; Start 09/12/16 at 08:30 Docusate Sodium 100 mg 100 mg Q12 PRN GTB CONSTIPATION; Start 09/12/16 at 08: 30 Propofol 100 ml @ 3.915 mls/ hr TITRATE PRN IV maintain rass -2 to -3 Last administered on 09/17/16 13:42; Admin Dose 7.83 MLS/HR; Start 09/13/16 at 19:30 Vancomycin HCl/ Sodium Chloride (Vancocin/NS) 500 ml @ 125 mls/hr Q72H IVPB Last administered on 09/21/16 12:11; Admin Dose 125 MLS/HR; Start 09/15/16 at 12:00 Dimethicone (Blistex Lip [place]) 1 applic Q2H PRN TOP CHAPPED LIPS; Start at 16:30 Ferrous Gluconate (Fergon) 325 mg BID PO Last administered on 09/21/16 08:25; Admin Dose 325 MG; Start 09/17/16 at 21:00 Diagnostic Test (Pha) (Accucheck) 1 ea 02 XX ; Start 09/21/16 at 02:00 Apixaban (Eliquis) 2.5 mg BID PO Last administered on 09/21/16 08:25; Admin Dose 2.5 MG; Start 09/21/16 at 09:00 Procedures Procedures PROCEDURE: XR Chest. CLINICAL INDICATION: Pneumonia. CHF. TECHNIQUE: Single portable view of the chest was obtained COMPARISON: Portable chest 09/20/2016 FINDINGS: Again noted is a right central venous catheter. The heart is borderline enlarged. Again noted is a small right pleural effusion. The pulmonary vessels appear congested and indistinct. Mild increased density perihilar and infrahilar regions. These findings are consistent with mild congestive heart or pulmonary edema. No definite left pleural effusion and pneumothorax. IMPRESSION: 1. No significant change . 2. Findings suggestive of mild congestive heart failure bone edema. 3. Small right pleural effusion. RPTAT:AAJJ Physician Pily Date Time Electronically viewed and signed by Nicki Reid Physician on 09/21/2016 08:20 DYAN FRANKLIN MD Sep 21, 2016 14:38
[2016-09-21] MEDS: SODIUM HYPOCHLORITE 0.125% 473 ML BTL IRR SCH (17:13)
[2016-09-21] MEDS: COLISTIMETHATE 100 MG in SOD CHLORIDE 0.9% 100 ML IVPB SCH (18:10)
[2016-09-21] MEDS: ATORVASTATIN 10 MG TAB GTB SCH (20:28)
[2016-09-21] MEDS: INSULIN GLARGINE [LANtus] 3 ML PEN SC SCH (20:38)
[2016-09-21] MEDS: LORAZEPAM 1 MG TAB GTB PRN (21:34)
[2016-09-21] MEDS: ZOLPIDEM 5 MG TAB GTB PRN (21:34)
[2016-09-22] VITALS (18 sets, daily range): BP systolic 102–134; BP diastolic 56–72; PULSE 80–101; RESP 16–90
[2016-09-22] MEDS: ACCUCHECK AT 2AM (Patients on SS coverage) XX SCH (00:39)
[2016-09-22] MEDS: ALBUTEROL/IPRATROPIUM (NEB) 3 ML AMP HHN SCH ×6 (01:44→20:50)
[2016-09-22] MEDS: Insulin NOVOLOG SS MILD Algorithm (SS with meals and bedtime) SC SCH ×4 (07:25→21:00)
[2016-09-22] MEDS: FLUOXETINE 20 MG CAP GTB SCH (08:41)
[2016-09-22] MEDS: FISH OIL 1,000 MG CAP PO SCH (08:41)
[2016-09-22] MEDS: ALLOPURINOL 100 MG TAB GTB SCH (08:41)
[2016-09-22] MEDS: PYRIDOXINE 50 MG TAB GTB SCH (08:41)
[2016-09-22] MEDS: FAMOTIDINE 20 MG TAB GTB SCH (08:41)
[2016-09-22] MEDS: VITAMIN E 400 UNITS CAP GTB SCH (08:41)
[2016-09-22] MEDS: FLUCONAZOLE 100 MG TAB GTB SCH (08:42)
[2016-09-22] MEDS: FERROUS SULFATE 60 MG/ML 5ML CUP GTB SCH ×3 (08:42→21:57)
[2016-09-22] MEDS: ASCORBIC ACID 500 MG TAB GTB SCH (08:42)
[2016-09-22] MEDS: CHOLECALCIFEROL 1,000 UNIT TAB GTB SCH (08:42)
[2016-09-22] MEDS: ACETYLCYSTEINE 600 MG CAP GTB SCH ×2 (08:42→21:56)
[2016-09-22] MEDS: CALCIUM CARBONATE 500 MG CHEW TAB GTB SCH ×3 (08:42→18:24)
[2016-09-22] MEDS: APIXABAN 5 MG TABLET PO SCH ×2 (08:42→21:57)
[2016-09-22] MEDS: LACTOBACILLUS CHEW TAB GTB SCH ×3 (08:42→21:56)
[2016-09-22 09:25] LABS: BASOPHIL # 0.1 10^3/ul (0.0-0.1); BASOPHILS % 0.9 % (0.0-2.0); EOSINOPHILS # 0.4 10^3/ul (0.0-0.5); HEMOGLOBIN 8.2 g/dl (14.0-18.0); LYMPHOCYTES # 0.8 10^3/ul (0.8-2.9); LYMPHOCYTES % 10.7 % (15.0-51.0); MEAN CORPUSCULAR HEMOGLOBIN 25.5 pg (29.0-33.0); MEAN CORPUSCULAR HGB CONC 32.7 g/dl (32.0-37.0); MEAN CORPUSCULAR VOLUME 78.1 fl (82.0-101.0); MONOCYTE # 0.5 10^3/ul (0.3-0.9); MONOCYTES % 6.9 % (0.0-11.0); NEUTROPHIL # 5.8 10^3/ul (1.6-7.5); NEUTROPHILS % 76.5 % (39.0-77.0); PLATELET COUNT 262 10^3/UL (140-440); RED CELL DISTRIBUTION WIDTH 20.1 % (11.5-14.5); UNCORRECTED WBC 7.6 10^3/ul (4.8-10.8); WHITE BLOOD COUNT 7.6 10^3/ul (4.8-10.8)
[2016-09-22 09:32] LABS: CONDITION 1; LH ANALYZER COMMENTS 1
[2016-09-22 09:36] LABS: POTASSIUM 4.1 mmol/L (3.5-5.1)
[2016-09-22 09:38] LABS: CREATININE 4.27 mg/dl (0.61-1.24)
[2016-09-22 09:39] LABS: CALCIUM 8.4 mg/dl (8.4-10.2)
--- NOTE | 2016-09-22 10:13 | PN ---
Date/Time of Note Date/Time of Note DATE: 09/22/16 TIME: 10:08 Assessment/Plan VTE Prophylaxis VTE Prophylaxis Intervention: SCD's Lines/Catheters IV Catheter Type (from Nrsg): Assessment/Plan Chief Complaint/Hosp Course 1) Respiratory Failure S/p Extubation 2) HCAP 3) LORNA on CKD, Currently on HD 4) Volume Overload, Anasarca 5) Pulm HTN 6) Morbid Obesity 7) Bilateral lower extremities acute on chronic cellulitis with left toe osteomyelitis. 8) Status post oxacillin-sensitive Staphylococcus aureus septicemia. on bipap cont hd per plan Problems: Exam/Review of Systems Vital Signs Vitals Vital Signs Date Time Temp Pulse Resp B/P Pulse Ox O2 Delivery O2 Flow Rate FiO2 09/22/16 09:21 94 93 35 09/22/16 09:08 24 Nasal Cannula 6.0 09/22/16 08:04 98.2 121/58 Intake and Output 09/21/16 09/21/16 09/22/16 15:00 23:00 07:00 Intake Total 500 ml 700 ml 300 ml Output Total 5050 ml 0 ml 60 ml Balance -4550 ml 700 ml 240 ml Exam Constitutional: well developed Neck: supple Respiratory: clear to auscultation Cardiovascular: regular rate and rhythm Gastrointestinal: non-tender, soft Extremities: edema Results Result Diagram: 09/22/1690509/22/16 09 Results 24 hrs Laboratory Tests Test 09/21/16 12:09 09/21/16 17:14 09/21/16 20:26 09/22/16 08:23 Bedside Glucose 114 127 145 67 L Test 09/22/16 08:39 09/22/16 09:06 Bedside Glucose 67 L Anion Gap 17 H Basophils # 0.1 Basophils % 0.9 Blood Morphology Comment Blood Urea Nitrogen 38 H Calcium Level 8.4 Carbon Dioxide Level 28 Chloride Level 96 L Creatinine 4.27 H Eosinophils # 0.4 Eosinophils % 5.0 Glucose Level 64 #L Hematocrit 25.0 L Hemoglobin 8.2 L Lymphocytes # 0.8 Lymphocytes % 10.7 L Mean Corpuscular Hemoglobin 25.5 L Mean Corpuscular Hemoglobin Concent 32.7 Mean Corpuscular Volume 78.1 L Mean Platelet Volume 8.0 Monocytes # 0.5 Monocytes % 6.9 Neutrophils # 5.8 Neutrophils % 76.5 Nucleated Red Blood Cells # 0.0 Nucleated Red Blood Cells % 0.0 Platelet Count 262 Potassium Level 4.1 Red Blood Count 3.20 L Red Cell Distribution Width 20.1 H Sodium Level 137 White Blood Count 7.6 Medications Medications Current Medications Morphine Sulfate (morphine) 2 mg Q4H PRN IV SEVERE PAIN LEVEL 7-10 Last administered on 09/17/16 02:04; Admin Dose 2 MG; Start 08/13/16 at 17:30 Fish Oil (Fish Oil) 1,000 mg DAILY PO Last administered on 09/22/16 08:41; Admin Dose 1,000 MG; Start 08/14/16 at 09:00 Miscellaneous Information 1 ea NOTE XX ; Start 08/13/16 at 18:00 Glucose (Glutose) 15 gm Q15M PRN PO DECREASED GLUCOSE; Start 08/13/16 at 18:00 Glucose (Glutose) 22.5 gm Q15M PRN PO DECREASED GLUCOSE; Start 08/13/16 at 18: 00 Dextrose (D50w Syringe) 25 ml Q15M PRN IV DECREASED GLUCOSE Last administered on 09/20/16 06:28; Admin Dose 25 ML; Start 08/13/16 at 18:00 Dextrose (D50w Syringe) 50 ml Q15M PRN IV DECREASED GLUCOSE; Start 08/13/16 at 18:00 Glucagon (Glucagen) 1 mg Q15M PRN IM DECREASED GLUCOSE; Start 08/13/16 at 18: 00 Glucose (Glutose) 15 gm Q15M PRN BUCCAL DECREASED GLUCOSE; Start 08/13/16 at 18:00 Sodium Hypochlorite (Dakin'S (1/4 Strength)) 1 applic DAILY IRR Last administered on 09/21/16 17:13; Admin Dose 1 APPLIC; Start 08/13/16 at 20:00 IV Flush (NS 10 ml) 10 ml PRN PRN IV IV PTOTOCOL; Start 08/14/16 at 17:00 Ondansetron HCl (Zofran Inj) 4 mg Q4H PRN IV NAUSEA AND/OR VOMITING; Start 08/16/16 at 12:30 Phenol 1 lozenge 1 lozenge Q1H PRN MT DRY MOUTH Last administered on 08/20/16at 21:28; Admin Dose 1 LOZENGE; Start 08/20/16 at 20:30 Norepinephrine/ Dextrose (Levophed/D5W) 500 ml @ 1.87 mls/hr TITRATE IV ; Start 09/09/16 at 08:00 Lorazepam (Ativan) 2 mg Q4H PRN IV anxiety Last administered on 09/19/16 23:43 ; Admin Dose 2 MG; Start 09/09/16 at 10:30 Insulin Glargine 10 unit 10 unit HS SC Last administered on 09/21/16 20:38; Admin Dose 10 UNIT; Start 09/10/16 at 22:00 Colistimethate Sodium/Sodium Chloride ([place]-Mycin/NS) 100 ml @ 50 mls/hr Q24H IVPB Last administered on 09/21/16 18:10; Admin Dose 50 MLS/HR; Start at 16:00 Acetylcysteine (Nac) 600 mg BID GTB Last administered on 09/22/16 08:42; Admin Dose 600 MG; Start 09/12/16 at 09:00 Allopurinol (Zyloprim) 100 mg DAILY GTB Last administered on 09/22/16 08:41; Admin Dose 100 MG; Start 09/12/16 at 09:00 Ascorbic Acid (Vitamin C) 500 mg DAILY GTB Last administered on 09/22/16 08:42 ; Admin Dose 500 MG; Start 09/12/16 at 09:00 Atorvastatin Calcium (Lipitor) 10 mg QHS GTB Last administered on 09/21/16 20: 28; Admin Dose 10 MG; Start 09/12/16 at 21:00 Cholecalciferol (Vitamin D) 1,000 unit DAILY GTB Last administered on 09/22/16 08:42; Admin Dose 1,000 UNIT; Start 09/12/16 at 09:00 Diphenhydramine HCl (Benadryl) 25 mg Q6H PRN GTB ITCHING; Start 09/12/16 at 08 :30 Famotidine (Pepcid) 20 mg DAILY GTB Last administered on 09/22/16 08:41; Admin Dose 20 MG; Start 09/12/16 at 09:00 Ferrous Sulfate (Feosol Liquid Cup) 300 mg BID GTB Last administered on 08:42; Admin Dose 300 MG; Start 09/12/16 at 09:00 Fluconazole (Diflucan) 100 mg DAILY GTB Last administered on 09/22/16 08:42; Admin Dose 100 MG; Start 09/12/16 at 09:00 Fluoxetine HCl (Prozac) 20 mg DAILY GTB Last administered on 09/22/16 08:41; Admin Dose 20 MG; Start 09/12/16 at 10:00 Lactobacillus Acidoph/Bulgaricus (Floranex) 1 tab TID GTB Last administered on 09/22/16 08:42; Admin Dose 1 TAB; Start 09/12/16 at 09:00 Pyridoxine HCl (Vitamin B6) 100 mg DAILY GTB Last administered on 09/22/16 08: 41; Admin Dose 100 MG; Start 09/12/16 at 09:00 Vitamin E (Vitamin E) 400 units DAILY GTB Last administered on 09/22/16 08:41; Admin Dose 400 UNITS; Start 09/12/16 at 10:00 Acetaminophen (Tylenol Liquid) 650 mg Q6H PRN GTB PAIN 1-3 OR TEMP; Start at 08:30 Acetaminophen/ Hydrocodone Bitart ([place] (5/325)) 1 tab Q6H PRN GTB MODERATE PAIN LEVEL 4-6; Start 09/12/16 at 11:30 Acetaminophen/ Hydrocodone Bitart ([place] (5/325)) 2 tab Q6H PRN GTB MODERATE PAIN LEVEL 4-6; Start 09/12/16 at 13:00 Lorazepam (Ativan) 1 mg Q6 PRN GTB ANXIETY; Start 09/12/16 at 08:30 Lorazepam (Ativan) 1 mg HS PRN GTB ANXIETY, HELP WITH SLEEP Last administered on 09/21/16 21:34; Admin Dose 1 MG; Start 09/12/16 at 08:30 Simethicone (Mylicon) 80 mg Q6H PRN GTB INTESTINAL SPASMS/CRAMPING Last administered on 09/20/16 21:48; Admin Dose 80 MG; Start 09/12/16 at 11:30 Zolpidem Tartrate (Ambien) 10 mg HS PRN GTB INSOMNIA Last administered on 21:34; Admin Dose 10 MG; Start 09/12/16 at 08:30 Docusate Sodium 100 mg 100 mg Q12 PRN GTB CONSTIPATION; Start 09/12/16 at 08: 30 Propofol 100 ml @ 3.915 mls/ hr TITRATE PRN IV maintain rass -2 to -3 Last administered on 09/17/16 13:42; Admin Dose 7.83 MLS/HR; Start 09/13/16 at 19:30 Vancomycin HCl/ Sodium Chloride (Vancocin/NS) 500 ml @ 125 mls/hr Q72H IVPB Last administered on 09/21/16 12:11; Admin Dose 125 MLS/HR; Start 09/15/16 at 12:00 Dimethicone (Blistex Lip [place]) 1 applic Q2H PRN TOP CHAPPED LIPS; Start at 16:30 Ferrous Gluconate (Fergon) 325 mg BID PO Last administered on 09/21/16 20:30; Admin Dose 325 MG; Start 09/17/16 at 21:00 Diagnostic Test (Pha) (Accucheck) 1 ea 02 XX ; Start 09/21/16 at 02:00 Apixaban (Eliquis) 2.5 mg BID PO Last administered on 09/22/16 08:42; Admin Dose 2.5 MG; Start 09/21/16 at 09:00 TYLER ZHU MD Sep 22, 2016 10:12
[2016-09-22] MEDS: FERROUS GLUCONATE (EC) 325 MG TAB PO SCH ×2 (11:31→21:57)
[2016-09-22] MEDS: SODIUM HYPOCHLORITE 0.125% 473 ML BTL IRR SCH (11:31)
--- NOTE | 2016-09-22 14:20 | CONS ---
Date/Time of Note Date/Time of Note DATE: 09/22/16 TIME: 14:17 Consult Date/Type/Reason Admit Date/Time Aug 13, 2016 at 16:30 Initial Consult Date 08/13/16 Type of Consultation: id Ordering Provider: KELLEN MEDINA MD Subjective alert, getting breathing treatment, was on Bipap for 2 hrs this am, no fevers, nad Objective Vital Signs Date Time Temp Pulse Resp B/P Pulse Ox O2 Delivery O2 Flow Rate FiO2 09/22/16 13:02 107 20 90 Nasal Cannula 6.0 09/22/16 12:01 98.5 116/63 09/22/16 09:21 35 Intake and Output 09/21/16 09/21/16 09/22/16 15:00 23:00 07:00 Intake Total 500 ml 700 ml 300 ml Output Total 5050 ml 0 ml 60 ml Balance -4550 ml 700 ml 240 ml Results/Medications Result Diagram: 09/22/16 0906 09/22/16 0906 Results 24 hrs Laboratory Tests Test 09/21/16 17:14 09/21/16 20:26 09/22/16 08:23 09/22/16 08:39 Bedside Glucose 127 145 67 L 67 L Test 09/22/16 09:06 09/22/16 11:33 Anion Gap 17 H Basophils # 0.1 Basophils % 0.9 Blood Morphology Comment Blood Urea Nitrogen 38 H Calcium Level 8.4 Carbon Dioxide Level 28 Chloride Level 96 L Creatinine 4.27 H Eosinophils # 0.4 Eosinophils % 5.0 Glucose Level 64 #L Hematocrit 25.0 L Hemoglobin 8.2 L Lymphocytes # 0.8 Lymphocytes % 10.7 L Mean Corpuscular Hemoglobin 25.5 L Mean Corpuscular Hemoglobin Concent 32.7 Mean Corpuscular Volume 78.1 L Mean Platelet Volume 8.0 Monocytes # 0.5 Monocytes % 6.9 Neutrophils # 5.8 Neutrophils % 76.5 Nucleated Red Blood Cells # 0.0 Nucleated Red Blood Cells % 0.0 Platelet Count 262 Potassium Level 4.1 Red Blood Count 3.20 L Red Cell Distribution Width 20.1 H Sodium Level 137 White Blood Count 7.6 Bedside Glucose 77 Medications Current Medications Morphine Sulfate (morphine) 2 mg Q4H PRN IV SEVERE PAIN LEVEL 7-10 Last administered on 09/17/16t 02:04; Admin Dose 2 MG; Start 08/13/16 at 17:30 Fish Oil (Fish Oil) 1,000 mg DAILY PO Last administered on 09/22/16 08:41; Admin Dose 1,000 MG; Start 08/14/16 at 09:00 Miscellaneous Information 1 ea NOTE XX ; Start 08/13/16 at 18:00 Glucose (Glutose) 15 gm Q15M PRN PO DECREASED GLUCOSE; Start 08/13/16 at 18:00 Glucose (Glutose) 22.5 gm Q15M PRN PO DECREASED GLUCOSE; Start 08/13/16 at 18: 00 Dextrose (D50w Syringe) 25 ml Q15M PRN IV DECREASED GLUCOSE Last administered on 09/20/16 06:28; Admin Dose 25 ML; Start 08/13/16 at 18:00 Dextrose (D50w Syringe) 50 ml Q15M PRN IV DECREASED GLUCOSE; Start 08/13/16 at 18:00 Glucagon (Glucagen) 1 mg Q15M PRN IM DECREASED GLUCOSE; Start 08/13/16 at 18: 00 Glucose (Glutose) 15 gm Q15M PRN BUCCAL DECREASED GLUCOSE; Start 08/13/16 at 18:00 Sodium Hypochlorite (Dakin'S (/4 Strength)) 1 applic DAILY IRR Last administered on 09/22/16 11:31; Admin Dose 1 APPLIC; Start 08/13/16 at 20:00 IV Flush (NS 10 ml) 10 ml PRN PRN IV IV PTOTOCOL; Start 08/14/16 at 17:00 Ondansetron HCl (Zofran Inj) 4 mg Q4H PRN IV NAUSEA AND/OR VOMITING; Start 08/16/16 at 12:30 Phenol 1 lozenge 1 lozenge Q1H PRN MT DRY MOUTH Last administered on 08/20/16at 21:28; Admin Dose 1 LOZENGE; Start 08/20/16 at 20:30 Norepinephrine/ Dextrose (Levophed/D5W) 500 ml @ 1.87 mls/hr TITRATE IV ; Start 09/09/16 at 08:00 Lorazepam (Ativan) 2 mg Q4H PRN IV anxiety Last administered on 09/19/16 23:43 ; Admin Dose 2 MG; Start 09/09/16 at 10:30 Insulin Glargine 10 unit 10 unit HS SC Last administered on 09/21/16 20:38; Admin Dose 10 UNIT; Start 09/10/16 at 22:00 Colistimethate Sodium/Sodium Chloride (Coly-Mycin/NS) 100 ml @ 50 mls/hr Q24H IVPB Last administered on 09/21/16 18:10; Admin Dose 50 MLS/HR; Start at 16:00 Acetylcysteine (Nac) 600 mg BID GTB Last administered on 09/22/16 08:42; Admin Dose 600 MG; Start 09/12/16 at 09:00 Allopurinol (Zyloprim) 100 mg DAILY GTB Last administered on 09/22/16 08:41; Admin Dose 100 MG; Start 09/12/16 at 09:00 Ascorbic Acid (Vitamin C) 500 mg DAILY GTB Last administered on 09/22/16 08:42 ; Admin Dose 500 MG; Start 09/12/16 at 09:00 Atorvastatin Calcium (Lipitor) 10 mg QHS GTB Last administered on 09/21/16 20: 28; Admin Dose 10 MG; Start 09/12/16 at 21:00 Cholecalciferol (Vitamin D) 1,000 unit DAILY GTB Last administered on 09/22/16 08:42; Admin Dose 1,000 UNIT; Start 09/12/16 at 09:00 Diphenhydramine HCl (Benadryl) 25 mg Q6H PRN GTB ITCHING; Start 09/12/16 at 08 :30 Famotidine (Pepcid) 20 mg DAILY GTB Last administered on 09/22/16 08:41; Admin Dose 20 MG; Start 09/12/16 at 09:00 Ferrous Sulfate (Feosol Liquid Cup) 300 mg BID GTB Last administered on 20:30; Admin Dose 300 MG; Start 09/12/16 at 09:00 Fluconazole (Diflucan) 100 mg DAILY GTB Last administered on 09/22/16 08:42; Admin Dose 100 MG; Start 09/12/16 at 09:00 Fluoxetine HCl (Prozac) 20 mg DAILY GTB Last administered on 09/22/16 08:41; Admin Dose 20 MG; Start 09/12/16 at 10:00 Lactobacillus Acidoph/Bulgaricus (Floranex) 1 tab TID GTB Last administered on 09/22/16 08:42; Admin Dose 1 TAB; Start 09/12/16 at 09:00 Pyridoxine HCl (Vitamin B6) 100 mg DAILY GTB Last administered on 09/22/16 08: 41; Admin Dose 100 MG; Start 09/12/16 at 09:00 Vitamin E (Vitamin E) 400 units DAILY GTB Last administered on 09/22/16 08:41; Admin Dose 400 UNITS; Start 09/12/16 at 10:00 Acetaminophen (Tylenol Liquid) 650 mg Q6H PRN GTB PAIN 1-3 OR TEMP; Start at 08:30 Acetaminophen/ Hydrocodone Bitart ([place] (5/325)) 1 tab Q6H PRN GTB MODERATE PAIN LEVEL 4-6; Start 09/12/16 at 11:30 Acetaminophen/ Hydrocodone Bitart ([place] (5/325)) 2 tab Q6H PRN GTB MODERATE PAIN LEVEL 4-6; Start 09/12/16 at 13:00 Lorazepam (Ativan) 1 mg Q6 PRN GTB ANXIETY; Start 09/12/16 at 08:30 Lorazepam (Ativan) 1 mg HS PRN GTB ANXIETY, HELP WITH SLEEP Last administered on 09/21/16 21:34; Admin Dose 1 MG; Start 09/12/16 at 08:30 Simethicone (Mylicon) 80 mg Q6H PRN GTB INTESTINAL SPASMS/CRAMPING Last administered on 09/20/16 21:48; Admin Dose 80 MG; Start 09/12/16 at 11:30 Zolpidem Tartrate (Ambien) 10 mg HS PRN GTB INSOMNIA Last administered on 21:34; Admin Dose 10 MG; Start 09/12/16 at 08:30 Docusate Sodium 100 mg 100 mg Q12 PRN GTB CONSTIPATION; Start 09/12/16 at 08: 30 Propofol 100 ml @ 3.915 mls/ hr TITRATE PRN IV maintain rass -2 to -3 Last administered on 09/17/16 13:42; Admin Dose 7.83 MLS/HR; Start 09/13/16 at 19:30 Vancomycin HCl/ Sodium Chloride (Vancocin/NS) 500 ml @ 125 mls/hr Q72H IVPB Last administered on 09/21/16 12:11; Admin Dose 125 MLS/HR; Start 09/15/16 at 12:00 Dimethicone (Blistex Lip [place]) 1 applic Q2H PRN TOP CHAPPED LIPS; Start at 16:30 Ferrous Gluconate (Fergon) 325 mg BID PO Last administered on 09/22/16 11:31; Admin Dose 325 MG; Start 09/17/16 at 21:00 Diagnostic Test (Pha) (Accucheck) 1 ea 02 XX ; Start 09/21/16 at 02:00 Apixaban (Eliquis) 2.5 mg BID PO Last administered on 09/22/16 08:42; Admin Dose 2.5 MG; Start 09/21/16 at 09:00 Assessment/Plan Chief Complaint/Hosp Course INDWELLINGS: PICC line, right chest PermCath. ANTIMICROBIALS: 1. Vancomycin. 2. Colistin. PHYSICAL EXAMINATION: GENERAL: Morbidly obese, well-developed, middle-aged man, who is alert, in no distress. HEENT: Head atraumatic, normocephalic. Sclerae anicteric. Buccal mucosa dry. NECK: Supple. CHEST: Chest rise is symmetrical. Breath sounds diminished to the bases. HEART: S1, S2. ABDOMEN: Soft, bowel sounds present. EXTREMITIES: With bilateral lower extremities Patrick wrapped. ASSESSMENT: 1. Acute on chronic respiratory failure==> s/p intubated/extubated. 2. Status post staph aureus septicemia. 3. Left toe osteomyelitis, completing treatment. 4. Morbid obesity. 5. End-stage renal disease, hemodialysis dependent. 6. Diabetes. PLAN: The patient remains stable, will keep on antibiotics till 09/28/2016, pulmonary/card/renal rec-s. DW pt DW staff Problems: JAMEY VAZQUEZ NP Sep 22, 2016 14:19
--- NOTE | 2016-09-22 14:46 | PN ---
Date/Time of Note Date/Time of Note DATE: 09/22/16 TIME: 14:43 Assessment/Plan VTE Prophylaxis VTE Prophylaxis Intervention: other (eliqiuis) Lines/Catheters IV [facility]atheter Type (from [facility]): Assessment/Plan Chief Complaint/Hosp Course Assessment and plan 1. Left great toe osteomyelitis. Patient is status post evaluation by vascular consult. Podiatry following for left foot wound. Continue with antibiotics per ID. 2. Acute on chronic respiratory failure, hypoxic and hypercapnic. S/P intubation on 09/06/2016 because of worsening respiratory distress. Continue on dialysis. Pulmonology following. Provide with bronchodilators . 3. Ventilator associated pneumonia. Sputum culture positive for Acinetobacter baumannii. Continue aspiration precautions. Antibiotics per ID 4. Pulmonary hypertension. Continue supplemental oxygen. 5. Acute on chronic kidney disease. Continue on hemodialysis. Nephrology following. Monitor renal panel 6. Congestive heart failure exacerbation. Acute on chronic diastolic dysfunction. Continue hemodialysis as per nephrology. 7. Type 2 diabetes mellitus. Hemoglobin A1c 5.8. Continue sliding scale insulin. Adjust as needed 8. Essential hypertension. Continue antihypertensives. 9. Atrial fibrillation. Rate controlled. Cardiology following. Therapeutic anticoagulation will be deferred to cardiology. on eliquis now 10. Dyslipidemia. Continue statins. 11. Gout. Continue allopurinol. 12. History of Major depression. We'll continue Lyrica once able to tolerate oral intake 13. Morbid obesity. 15. Deep vein thrombosis prophylaxis. on eliquis 16. Gastrointestinal prophylaxis. Histamine 2 blockers. Disposition and plan: remains on bipap. Will get pt/ot to evaluate Discussed plan of care with Problems: Subjective 24 Hr Interval Summary Free Text/Dictation seen on bipap. no s/s of distress Exam/Review of Systems Vital Signs Vitals Vital Signs Date Time Temp Pulse Resp B/P Pulse Ox O2 Delivery O2 Flow Rate FiO2 09/22/16 13:35 101 90 35 09/22/16 13:02 20 Nasal Cannula 6.0 09/22/16 12:01 98.5 116/63 Intake and Output 09/21/16 09/21/16 09/22/16 15:00 23:00 07:00 Intake Total 500 ml 700 ml 300 ml Output Total 5050 ml 0 ml 60 ml Balance -4550 ml 700 ml 240 ml Exam General: alert and oriented. no s/s of distress , on bipap Eyes: pupils equal round, Anicteric sclera Neck: Supple nontender, no JVD Cardiac: Regular rate. Slight murmur auscultated Pulmonary: no obvious wheezing, minimally diminished at bases GI: Obese, bowel sounds active Extremities: Bilateral lower extremity edema Skin: Surgical site of lower extremity clean dry and intact Neurologic: Somnolent, is alert to person place and situation Results Result Diagram: 09/22/16 0906 09/22/16 0906 Results 24 hrs Laboratory Tests Test 09/21/16 17:14 09/21/16 20:26 09/22/16 08:23 09/22/16 08:39 Bedside Glucose 127 145 67 L 67 L Test 09/22/16 09:06 09/22/16 11:33 Anion Gap 17 H Basophils # 0.1 Basophils % 0.9 Blood Morphology Comment Blood Urea Nitrogen 38 H Calcium Level 8.4 Carbon Dioxide Level 28 Chloride Level 96 L Creatinine 4.27 H Eosinophils # 0.4 Eosinophils % 5.0 Glucose Level 64 #L Hematocrit 25.0 L Hemoglobin 8.2 L Lymphocytes # 0.8 Lymphocytes % 10.7 L Mean Corpuscular Hemoglobin 25.5 L Mean Corpuscular Hemoglobin Concent 32.7 Mean Corpuscular Volume 78.1 L Mean Platelet Volume 8.0 Monocytes # 0.5 Monocytes % 6.9 Neutrophils # 5.8 Neutrophils % 76.5 Nucleated Red Blood Cells # 0.0 Nucleated Red Blood Cells % 0.0 Platelet Count 262 Potassium Level 4.1 Red Blood Count 3.20 L Red Cell Distribution Width 20.1 H Sodium Level 137 White Blood Count 7.6 Bedside Glucose 77 Medications Medications Current Medications Morphine Sulfate (morphine) 2 mg Q4H PRN IV SEVERE PAIN LEVEL 7-10 Last administered on 09/17/16 02:04; Admin Dose 2 MG; Start 08/13/16 at 17:30 Fish Oil (Fish Oil) 1,000 mg DAILY PO Last administered on 09/22/16 08:41; Admin Dose 1,000 MG; Start 08/14/16 at 09:00 Miscellaneous Information 1 ea NOTE XX ; Start 08/13/16 at 18:00 Glucose (Glutose) 15 gm Q15M PRN PO DECREASED GLUCOSE; Start 08/13/16 at 18:00 Glucose (Glutose) 22.5 gm Q15M PRN PO DECREASED GLUCOSE; Start 08/13/16 at 18: 00 Dextrose (D50w Syringe) 25 ml Q15M PRN IV DECREASED GLUCOSE Last administered on 09/20/16 06:28; Admin Dose 25 ML; Start 08/13/16 at 18:00 Dextrose (D50w Syringe) 50 ml Q15M PRN IV DECREASED GLUCOSE; Start 08/13/16 at 18:00 Glucagon (Glucagen) 1 mg Q15M PRN IM DECREASED GLUCOSE; Start 08/13/16 at 18: 00 Glucose (Glutose) 15 gm Q15M PRN BUCCAL DECREASED GLUCOSE; Start 08/13/16 at 18:00 Sodium Hypochlorite (Dakin'S (09/19 Strength)) 1 applic DAILY IRR Last administered on 09/22/16 11:31; Admin Dose 1 APPLIC; Start 08/13/16 at 20:00 IV Flush (NS 10 ml) 10 ml PRN PRN IV IV PTOTOCOL; Start 08/14/16 at 17:00 Ondansetron HCl (Zofran Inj) 4 mg Q4H PRN IV NAUSEA AND/OR VOMITING; Start 08/16/16 at 12:30 Phenol 1 lozenge 1 lozenge Q1H PRN MT DRY MOUTH Last administered on 08/20/16at 21:28; Admin Dose 1 LOZENGE; Start 08/20/16 at 20:30 Norepinephrine/ Dextrose (Levophed/D5W) 500 ml @ 1.87 mls/hr TITRATE IV ; Start 09/09/16 at 08:00 Lorazepam (Ativan) 2 mg Q4H PRN IV anxiety Last administered on 09/19/16 23:43 ; Admin Dose 2 MG; Start 09/09/16 at 10:30 Insulin Glargine 10 unit 10 unit HS SC Last administered on 09/21/16 20:38; Admin Dose 10 UNIT; Start 09/10/16 at 22:00 Colistimethate Sodium/Sodium Chloride (Coly-Mycin/NS) 100 ml @ 50 mls/hr Q24H IVPB Last administered on 09/21/16 18:10; Admin Dose 50 MLS/HR; Start at 16:00 Acetylcysteine (Nac) 600 mg BID GTB Last administered on 09/22/16 08:42; Admin Dose 600 MG; Start 09/12/16 at 09:00 Allopurinol (Zyloprim) 100 mg DAILY GTB Last administered on 09/22/16 08:41; Admin Dose 100 MG; Start 09/12/16 at 09:00 Ascorbic Acid (Vitamin C) 500 mg DAILY GTB Last administered on 09/22/16 08:42 ; Admin Dose 500 MG; Start 09/12/16 at 09:00 Atorvastatin Calcium (Lipitor) 10 mg QHS GTB Last administered on 09/21/16 20: 28; Admin Dose 10 MG; Start 09/12/16 at 21:00 Cholecalciferol (Vitamin D) 1,000 unit DAILY GTB Last administered on 09/22/16 08:42; Admin Dose 1,000 UNIT; Start 09/12/16 at 09:00 Diphenhydramine HCl (Benadryl) 25 mg Q6H PRN GTB ITCHING; Start 09/12/16 at 08 :30 Famotidine (Pepcid) 20 mg DAILY GTB Last administered on 09/22/16 08:41; Admin Dose 20 MG; Start 09/12/16 at 09:00 Ferrous Sulfate (Feosol Liquid Cup) 300 mg BID GTB Last administered on 20:30; Admin Dose 300 MG; Start 09/12/16 at 09:00 Fluconazole (Diflucan) 100 mg DAILY GTB Last administered on 09/22/16 08:42; Admin Dose 100 MG; Start 09/12/16 at 09:00 Fluoxetine HCl (Prozac) 20 mg DAILY GTB Last administered on 09/22/16 08:41; Admin Dose 20 MG; Start 09/12/16 at 10:00 Lactobacillus Acidoph/Bulgaricus (Floranex) 1 tab TID GTB Last administered on 09/22/16 08:42; Admin Dose 1 TAB; Start 09/12/16 at 09:00 Pyridoxine HCl (Vitamin B6) 100 mg DAILY GTB Last administered on 09/22/16 08: 41; Admin Dose 100 MG; Start 09/12/16 at 09:00 Vitamin E (Vitamin E) 400 units DAILY GTB Last administered on 09/22/16 08:41; Admin Dose 400 UNITS; Start 12/28/16 at 10:00 Acetaminophen (Tylenol Liquid) 650 mg Q6H PRN GTB PAIN 1-3 OR TEMP; Start at 08:30 Acetaminophen/ Hydrocodone Bitart ([place] (5/325)) 1 tab Q6H PRN GTB MODERATE PAIN LEVEL 4-6; Start 09/12/16 at 11:30 Acetaminophen/ Hydrocodone Bitart ([place] (5/325)) 2 tab Q6H PRN GTB MODERATE PAIN LEVEL 4-6; Start 09/12/16 at 13:00 Lorazepam (Ativan) 1 mg Q6 PRN GTB ANXIETY; Start 09/12/16 at 08:30 Lorazepam (Ativan) 1 mg HS PRN GTB ANXIETY, HELP WITH SLEEP Last administered on 09/21/16 21:34; Admin Dose 1 MG; Start 09/12/16 at 08:30 Simethicone (Mylicon) 80 mg Q6H PRN GTB INTESTINAL SPASMS/CRAMPING Last administered on 09/20/16 21:48; Admin Dose 80 MG; Start 09/12/16 at 11:30 Zolpidem Tartrate (Ambien) 10 mg HS PRN GTB INSOMNIA Last administered on 21:34; Admin Dose 10 MG; Start 09/12/16 at 08:30 Docusate Sodium 100 mg 100 mg Q12 PRN GTB CONSTIPATION; Start 09/12/16 at 08: 30 Propofol 100 ml @ 3.915 mls/ hr TITRATE PRN IV maintain rass -2 to -3 Last administered on 09/17/16 13:42; Admin Dose 7.83 MLS/HR; Start 09/13/16 at 19:30 Vancomycin HCl/ Sodium Chloride (Vancocin/NS) 500 ml @ 125 mls/hr Q72H IVPB Last administered on 09/21/16 12:11; Admin Dose 125 MLS/HR; Start 09/15/16 at 12:00 Dimethicone (Blistex Lip [place]) 1 applic Q2H PRN TOP CHAPPED LIPS; Start at 16:30 Ferrous Gluconate (Fergon) 325 mg BID PO Last administered on 09/22/16 11:31; Admin Dose 325 MG; Start 09/17/16 at 21:00 Diagnostic Test (Pha) (Accucheck) XX ; Start 09/21/16 at 02:00 Apixaban (Eliquis) 2.5 mg BID PO Last administered on 09/22/16t 08:42; Admin Dose 2.5 MG; Start 09/21/16 at 09:00 GIUSEPPE BREAUX Sep 22, 2016 14:46
--- NOTE | 2016-09-22 16:09 | CONS ---
Date/Time of Note Date/Time of Note DATE: 09/22/16 TIME: 16:07 Consult Date/Type/Reason Admit Date/Time Aug 13, 2016 at 16:30 Initial Consult Date 08/13/16 Type of Consultation: pulm Ordering Provider: KELLEN MEDINA MD Subjective Intermittently on BiPAP. Objective Vital Signs Date Time Temp Pulse Resp B/P Pulse Ox O2 Delivery O2 Flow Rate FiO2 09/22/16 15:44 98.4 90 16 131/63 91 09/22/16 13:35 35 09/22/16 13:02 Nasal Cannula 6.0 Intake and Output 09/21/16 09/21/16 09/22/16 15:00 23:00 07:00 Intake Total 500 ml 700 ml 300 ml Output Total 5050 ml 0 ml 60 ml Balance -4550 ml 700 ml 240 ml HEENT: Pupils equal, round, and reactive to light. CARDIAC: Irreg Irreg S1, S2, CHEST: Bibasilar rales. ABDOMEN: Mildly distended. No bowel sounds. EXTREMITIES: No cyanosis, clubbing, edema +2 Results/Medications Result Diagram: 09/22/16 0906 09/22/16 0906 Results 24 hrs Laboratory Tests Test 09/21/16 17:14 09/21/16 20:26 09/22/16 08:23 09/22/16 08:39 Bedside Glucose 127 145 67 L 67 L Test 09/22/16 09:06 09/22/16 11:33 Anion Gap 17 H Basophils # 0.1 Basophils % 0.9 Blood Morphology Comment Blood Urea Nitrogen 38 H Calcium Level 8.4 Carbon Dioxide Level 28 Chloride Level 96 L Creatinine 4.27 H Eosinophils # 0.4 Eosinophils % 5.0 Glucose Level 64 #L Hematocrit 25.0 L Hemoglobin 8.2 L Lymphocytes # 0.8 Lymphocytes % 10.7 L Mean Corpuscular Hemoglobin 25.5 L Mean Corpuscular Hemoglobin Concent 32.7 Mean Corpuscular Volume 78.1 L Mean Platelet Volume 8.0 Monocytes # 0.5 Monocytes % 6.9 Neutrophils # 5.8 Neutrophils % 76.5 Nucleated Red Blood Cells # 0.0 Nucleated Red Blood Cells % 0.0 Platelet Count 262 Potassium Level 4.1 Red Blood Count 3.20 L Red Cell Distribution Width 20.1 H Sodium Level 137 White Blood Count 7.6 Bedside Glucose 77 Medications Current Medications Morphine Sulfate (morphine) 2 mg Q4H PRN IV SEVERE PAIN LEVEL 7-10 Last administered on 09/17/16 02:04; Admin Dose 2 MG; Start 08/13/16 at 17:30 Fish Oil (Fish Oil) 1,000 mg DAILY PO Last administered on 09/22/16 08:41; Admin Dose 1,000 MG; Start 08/14/16 at 09:00 Miscellaneous Information 1 ea NOTE XX ; Start 08/13/16 at 18:00 Glucose (Glutose) 15 gm Q15M PRN PO DECREASED GLUCOSE; Start 08/13/16 at 18:00 Glucose (Glutose) 22.5 gm Q15M PRN PO DECREASED GLUCOSE; Start 08/13/16 at 18: 00 Dextrose (D50w Syringe) 25 ml Q15M PRN IV DECREASED GLUCOSE Last administered on 09/20/16 06:28; Admin Dose 25 ML; Start 08/13/16 at 18:00 Dextrose (D50w Syringe) 50 ml Q15M PRN IV DECREASED GLUCOSE; Start 08/13/16 at 18:00 Glucagon (Glucagen) 1 mg Q15M PRN IM DECREASED GLUCOSE; Start 08/13/16 at 18: 00 Glucose (Glutose) 15 gm Q15M PRN BUCCAL DECREASED GLUCOSE; Start 08/13/16 at 18:00 Sodium Hypochlorite (Dakin'S (1/4 Strength)) 1 applic DAILY IRR Last administered on 09/22/16 11:31; Admin Dose 1 APPLIC; Start 08/13/16 at 20:00 IV Flush (NS 10 ml) 10 ml PRN PRN IV IV PTOTOCOL; Start 08/14/16 at 17:00 Ondansetron HCl (Zofran Inj) 4 mg Q4H PRN IV NAUSEA AND/OR VOMITING; Start 08/16/16 at 12:30 Phenol (Cepastat Lozenge) 1 lozenge Q1H PRN MT DRY MOUTH Last administered on 08/20/16at 21:28; Admin Dose 1 LOZENGE; Start 08/20/16 at 20:30 Lorazepam (Ativan) 2 mg Q4H PRN IV anxiety Last administered on 09/19/16 23:43 ; Admin Dose 2 MG; Start 09/09/16 at 10:30 Insulin Glargine 10 unit 10 unit HS SC Last administered on 09/21/16 20:38; Admin Dose 10 UNIT; Start 09/10/16 at 22:00 Colistimethate Sodium/Sodium Chloride (Coly-Mycin/NS) 100 ml @ 50 mls/hr Q24H IVPB Last administered on 09/21/16 18:10; Admin Dose 50 MLS/HR; Start at 16:00 Acetylcysteine (Nac) 600 mg BID GTB Last administered on 09/22/16 08:42; Admin Dose 600 MG; Start 09/12/16 at 09:00 Allopurinol (Zyloprim) 100 mg DAILY GTB Last administered on 09/22/16 08:41; Admin Dose 100 MG; Start 09/12/16 at 09:00 Ascorbic Acid (Vitamin C) 500 mg DAILY GTB Last administered on 09/22/16 08:42 ; Admin Dose 500 MG; Start 09/12/16 at 09:00 Atorvastatin Calcium (Lipitor) 10 mg QHS GTB Last administered on 09/21/16 20: 28; Admin Dose 10 MG; Start 09/12/16 at 21:00 Cholecalciferol (Vitamin D) 1,000 unit DAILY GTB Last administered on 09/22/16 08:42; Admin Dose 1,000 UNIT; Start 09/12/16 at 09:00 Diphenhydramine HCl (Benadryl) 25 mg Q6H PRN GTB ITCHING; Start 09/12/16 at 08 :30 Famotidine (Pepcid) 20 mg DAILY GTB Last administered on 09/22/16 08:41; Admin Dose 20 MG; Start 09/12/16 at 09:00 Ferrous Sulfate (Feosol Liquid Cup) 300 mg BID GTB Last administered on 20:30; Admin Dose 300 MG; Start 09/12/16 at 09:00 Fluconazole (Diflucan) 100 mg DAILY GTB Last administered on 09/22/16 08:42; Admin Dose 100 MG; Start 09/12/16 at 09:00 Fluoxetine HCl (Prozac) 20 mg DAILY GTB Last administered on 09/22/16 08:41; Admin Dose 20 MG; Start 12/28/16 at 10:00 Lactobacillus Acidoph/Bulgaricus (Floranex) 1 tab TID GTB Last administered on 09/22/16 15:43; Admin Dose 1 TAB; Start 09/12/16 at 09:00 Pyridoxine HCl (Vitamin B6) 100 mg DAILY GTB Last administered on 09/22/16 08: 41; Admin Dose 100 MG; Start 09/12/16 at 09:00 Vitamin E (Vitamin E) 400 units DAILY GTB Last administered on 09/22/16 08:41; Admin Dose 400 UNITS; Start 09/12/16 at 10:00 Acetaminophen (Tylenol Liquid) 650 mg Q6H PRN GTB PAIN 1-3 OR TEMP; Start at 08:30 Acetaminophen/ Hydrocodone Bitart ([place] (5/325)) 1 tab Q6H PRN GTB MODERATE PAIN LEVEL 4-6; Start 09/12/16 at 11:30 Acetaminophen/ Hydrocodone Bitart ([place] (5/325)) 2 tab Q6H PRN GTB MODERATE PAIN LEVEL 4-6; Start 09/12/16 at 13:00 Lorazepam (Ativan) 1 mg Q6 PRN GTB ANXIETY; Start 09/12/16 at 08:30 Lorazepam (Ativan) 1 mg HS PRN GTB ANXIETY, HELP WITH SLEEP Last administered on 09/21/16 21:34; Admin Dose 1 MG; Start 09/12/16 at 08:30 Simethicone (Mylicon) 80 mg Q6H PRN GTB INTESTINAL SPASMS/CRAMPING Last administered on 09/20/16 21:48; Admin Dose 80 MG; Start 09/12/16 at 11:30 Zolpidem Tartrate (Ambien) 10 mg HS PRN GTB INSOMNIA Last administered on 21:34; Admin Dose 10 MG; Start 09/12/16 at 08:30 Docusate Sodium 100 mg 100 mg Q12 PRN GTB CONSTIPATION; Start 09/12/16 at 08: 30 Vancomycin HCl/ Sodium Chloride (Vancocin/NS) 500 ml @ 125 mls/hr Q72H IVPB Last administered on 09/21/16 12:11; Admin Dose 125 MLS/HR; Start 09/15/16 at 12:00 Dimethicone (Blistex Lip [place]) 1 applic Q2H PRN TOP CHAPPED LIPS; Start at 16:30 Ferrous Gluconate (Fergon) 325 mg BID PO Last administered on 09/22/16 11:31; Admin Dose 325 MG; Start 09/17/16 at 21:00 Diagnostic Test (Pha) (Accucheck) 1 ea 02 XX ; Start 09/21/16 at 02:00 Apixaban (Eliquis) 2.5 mg BID PO Last administered on 09/22/16 08:42; Admin Dose 2.5 MG; Start 09/21/16 at 09:00 Assessment/Plan Additional Assessment/Plan NEUROLOGIC: Generalized weakness Results/Medications IMP: 1. Acute on chronic respiratory failure, hypoxic and hypercapnic. S/P intubation on 09/06/2016 because of worsening respiratory distress. Stable postextubation. Improving pulmonary edema radiographically. 2. Bilateral pneumonia and pulmonary edema with hypoxemic respiratory failure. Continue infectious disease recommendations. 3..Pulmonary hypertension. Continue supplemental oxygen. 4. End-stage renal failure now on hemodialysis. Continue nephrology recommendations 5. Dysphagia continue tube feeding 6. Atrial fibrillation currently rate controlled 7. Lower extremity ulceration and wounds with osteomyelitis, continue wound care and antibiotics RECS: 1. BiPAP prn 2. Maintain SpO2 88-92% 3. Am labs 4. BD's prn 5. HD with GEOVANNA JIMENEZ MD Sep 22, 2016 16:09
[2016-09-22] MEDS: COLISTIMETHATE 100 MG in SOD CHLORIDE 0.9% 100 ML IVPB SCH (17:15)
[2016-09-22] MEDS: EPOETIN 4000 UNITS/1 ML INJ (ESRD) SC SCH (18:25)
[2016-09-22] MEDS: INSULIN GLARGINE [LANtus] 3 ML PEN SC SCH (21:00)
[2016-09-22] MEDS: ATORVASTATIN 10 MG TAB GTB SCH (21:56)
[2016-09-22] MEDS: ZOLPIDEM 5 MG TAB GTB PRN (21:56)
[2016-09-23] VITALS (24 sets, daily range): BP systolic 113–141; BP diastolic 57–82; PULSE 79–95; RESP 20–24
[2016-09-23] MEDS: ACCUCHECK AT 2AM (Patients on SS coverage) XX SCH (02:00)
[2016-09-23] MEDS: ALBUTEROL/IPRATROPIUM (NEB) 3 ML AMP HHN SCH ×6 (02:47→20:40)
[2016-09-23 06:16] LABS: BASOPHILS % 0.6 % (0.0-2.0); EOSINOPHILS # 0.5 10^3/ul (0.0-0.5); HEMATOCRIT 25.4 % (42.0-52.0); HEMOGLOBIN 8.4 g/dl (14.0-18.0); LYMPHOCYTES # 0.7 10^3/ul (0.8-2.9); LYMPHOCYTES % 10.3 % (15.0-51.0); MEAN CORPUSCULAR HEMOGLOBIN 25.9 pg (29.0-33.0); MEAN CORPUSCULAR HGB CONC 33.2 g/dl (32.0-37.0); MEAN CORPUSCULAR VOLUME 78.2 fl (82.0-101.0); MEAN PLATELET VOLUME 8.4 fl (7.4-10.4); MONOCYTE # 0.6 10^3/ul (0.3-0.9); MONOCYTES % 8.2 % (0.0-11.0); NEUTROPHIL # 5.2 10^3/ul (1.6-7.5); NEUTROPHILS % 73.9 % (39.0-77.0); PLATELET COUNT 274 10^3/UL (140-440); RED BLOOD COUNT 3.25 10^6/ul (4.70-6.10); RED CELL DISTRIBUTION WIDTH 20.3 % (11.5-14.5)
[2016-09-23 06:19] LABS: CONDITION 1; LH ANALYZER COMMENTS 1
[2016-09-23 06:44] LABS: CREATININE 5.08 mg/dl (0.61-1.24)
[2016-09-23 06:45] LABS: CALCIUM 8.7 mg/dl (8.4-10.2)
[2016-09-23] MEDS ORDERED: ALTEPLASE (CATHFLO) 2 MG INJ CATHETER PRN (07:00)
[2016-09-23] MEDS: Insulin NOVOLOG SS MILD Algorithm (SS with meals and bedtime) SC SCH ×4 (07:25→21:00)
--- NOTE | 2016-09-23 07:36 | PN ---
Date/Time of Note Date/Time of Note DATE: 09/23/16 TIME: 07:34 Assessment/Plan VTE Prophylaxis VTE Prophylaxis Intervention: other Lines/Catheters IV Catheter Type (from Nrsg): Urinary Cath still in place: Yes Reason Cath still needed: urinary retention Assessment/Plan Chief Complaint/Hosp Course 1) Respiratory Failure S/p Extubation 2) HCAP 3) LORNA on CKD, Currently on HD 4) Volume Overload, Anasarca 5) Pulm HTN 6) Morbid Obesity 7) Bilateral lower extremities acute on chronic cellulitis with left toe osteomyelitis. 8) Status post oxacillin-sensitive Staphylococcus aureus septicemia. on bipap cont hd per plan [id number] hd plan today Problems: Exam/Review of Systems Vital Signs Vitals Vital Signs Date Time Temp Pulse Resp B/P Pulse Ox O2 Delivery O2 Flow Rate FiO2 09/23/16 04:55 79 09/23/16 04:45 95 35 09/23/16 04:26 24 6.0 09/23/16 04:07 98.6 113/60 09/22/16 17:05 Nasal Cannula Intake and Output 09/22/16 09/22/16 09/23/16 15:00 23:00 07:00 Intake Total 680 ml 300 ml Output Total 100 ml 100 ml Balance 580 ml 200 ml Exam Constitutional: alert, oriented Psych: no complaints Neck: supple Respiratory: clear to auscultation Cardiovascular: regular rate and rhythm Gastrointestinal: soft Musculoskeletal: swelling Results Result Diagram: 09/23/16 0535 09/23/16 0535 Results 24 hrs Laboratory Tests Test 09/22/16 08:23 09/22/16 08:39 09/22/16 09:06 09/22/16 11:33 Bedside Glucose 67 L 67 L 77 Anion Gap 17 H Basophils # 0.1 Basophils % 0.9 Blood Morphology Comment Blood Urea Nitrogen 38 H Calcium Level 8.4 Carbon Dioxide Level 28 Chloride Level 96 L Creatinine 4.27 H Eosinophils # 0.4 Eosinophils % 5.0 Glucose Level 64 #L Hematocrit 25.0 L Hemoglobin 8.2 L Lymphocytes # 0.8 Lymphocytes % 10.7 L Mean Corpuscular Hemoglobin 25.5 L Mean Corpuscular Hemoglobin Concent 32.7 Mean Corpuscular Volume 78.1 L Mean Platelet Volume 8.0 Monocytes # 0.5 Monocytes % 6.9 Neutrophils # 5.8 Neutrophils % 76.5 Nucleated Red Blood Cells # 0.0 Nucleated Red Blood Cells % 0.0 Platelet Count 262 Potassium Level 4.1 Red Blood Count 3.20 L Red Cell Distribution Width 20.1 H Sodium Level 137 White Blood Count 7.6 Test 09/22/16 17:13 09/22/16 21:51 09/23/16 05:35 Bedside Glucose 102 106 Anion Gap 17 H Basophils # 0.0 Basophils % 0.6 Blood Morphology Comment Blood Urea Nitrogen 45 H Calcium Level 8.7 Carbon Dioxide Level 26 Chloride Level 97 Creatinine 5.08 H Eosinophils # 0.5 Eosinophils % 7.0 Glucose Level 91 Hematocrit 25.4 L Hemoglobin 8.4 L Lymphocytes # 0.7 L Lymphocytes % 10.3 L Mean Corpuscular Hemoglobin 25.9 L Mean Corpuscular Hemoglobin Concent 33.2 Mean Corpuscular Volume 78.2 L Mean Platelet Volume 8.4 Monocytes # 0.6 Monocytes % 8.2 Neutrophils # 5.2 Neutrophils % 73.9 Nucleated Red Blood Cells # 0.0 Nucleated Red Blood Cells % 0.0 Platelet Count 274 Potassium Level 4.0 Red Blood Count 3.25 L Red Cell Distribution Width 20.3 H Sodium Level 136 White Blood Count 7.0 Medications Medications Current Medications Morphine Sulfate (morphine) 2 mg Q4H PRN IV SEVERE PAIN LEVEL 7-10 Last administered on 09/17/16 02:04; Admin Dose 2 MG; Start 08/13/16 at 17:30 Fish Oil (Fish Oil) 1,000 mg DAILY PO Last administered on 09/22/16 08:41; Admin Dose 1,000 MG; Start 08/14/16 at 09:00 Miscellaneous Information 1 ea NOTE XX ; Start 08/13/16 at 18:00 Glucose (Glutose) 15 gm Q15M PRN PO DECREASED GLUCOSE; Start 08/13/16 at 18:00 Glucose (Glutose) 22.5 gm Q15M PRN PO DECREASED GLUCOSE; Start 08/13/16 at 18: 00 Dextrose (D50w Syringe) 25 ml Q15M PRN IV DECREASED GLUCOSE Last administered on 09/20/16 06:28; Admin Dose 25 ML; Start 08/13/16 at 18:00 Dextrose (D50w Syringe) 50 ml Q15M PRN IV DECREASED GLUCOSE; Start 08/13/16 at 18:00 Glucagon (Glucagen) 1 mg Q15M PRN IM DECREASED GLUCOSE; Start 08/13/16 at 18: 00 Glucose (Glutose) 15 gm Q15M PRN BUCCAL DECREASED GLUCOSE; Start 08/13/16 at 18:00 Sodium Hypochlorite (Dakin'S (09/19 Strength)) 1 applic DAILY IRR Last administered on 09/22/16 11:31; Admin Dose 1 APPLIC; Start 08/13/16 at 20:00 IV Flush (NS 10 ml) 10 ml PRN PRN IV IV PTOTOCOL; Start 08/14/16 at 17:00 Ondansetron HCl (Zofran Inj) 4 mg Q4H PRN IV NAUSEA AND/OR VOMITING; Start 08/16/16 at 12:30 Phenol (Cepastat Lozenge) 1 lozenge Q1H PRN MT DRY MOUTH Last administered on 08/20/16at 21:28; Admin Dose 1 LOZENGE; Start 08/20/16 at 20:30 Lorazepam (Ativan) 2 mg Q4H PRN IV anxiety Last administered on 09/19/16 23:43 ; Admin Dose 2 MG; Start 09/09/16 at 10:30 Insulin Glargine 10 unit 10 unit HS SC Last administered on 09/21/16 20:38; Admin Dose 10 UNIT; Start 09/10/16 at 22:00 Colistimethate Sodium/Sodium Chloride (Coly-Mycin/NS) 100 ml @ 50 mls/hr Q24H IVPB Last administered on 09/22/16 17:15; Admin Dose 50 MLS/HR; Start at 16:00 Acetylcysteine (Nac) 600 mg BID GTB Last administered on 09/22/16 21:56; Admin Dose 600 MG; Start 09/12/16 at 09:00 Allopurinol (Zyloprim) 100 mg DAILY GTB Last administered on 09/22/16 08:41; Admin Dose 100 MG; Start 09/12/16 at 09:00 Ascorbic Acid (Vitamin C) 500 mg DAILY GTB Last administered on 09/22/16 08:42 ; Admin Dose 500 MG; Start 09/12/16 at 09:00 Atorvastatin Calcium (Lipitor) 10 mg QHS GTB Last administered on 09/22/16 21: 56; Admin Dose 10 MG; Start 09/12/16 at 21:00 Cholecalciferol (Vitamin D) 1,000 unit DAILY GTB Last administered on 09/22/16 08:42; Admin Dose 1,000 UNIT; Start 09/12/16 at 09:00 Diphenhydramine HCl (Benadryl) 25 mg Q6H PRN GTB ITCHING; Start 09/12/16 at 08 :30 Famotidine (Pepcid) 20 mg DAILY GTB Last administered on 09/22/16 08:41; Admin Dose 20 MG; Start 09/12/16 at 09:00 Ferrous Sulfate (Feosol Liquid Cup) 300 mg BID GTB Last administered on 21:57; Admin Dose 300 MG; Start 09/12/16 at 09:00 Fluconazole (Diflucan) 100 mg DAILY GTB Last administered on 09/22/16 08:42; Admin Dose 100 MG; Start 09/12/16 at 09:00 Fluoxetine HCl (Prozac) 20 mg DAILY GTB Last administered on 09/22/16 08:41; Admin Dose 20 MG; Start 09/12/16 at 10:00 Lactobacillus Acidoph/Bulgaricus (Floranex) 1 tab TID GTB Last administered on 09/22/16 21:56; Admin Dose 1 TAB; Start 09/12/16 at 09:00 Pyridoxine HCl (Vitamin B6) 100 mg DAILY GTB Last administered on 09/22/16 08: 41; Admin Dose 100 MG; Start 09/12/16 at 09:00 Vitamin E (Vitamin E) 400 units DAILY GTB Last administered on 09/22/16 08:41; Admin Dose 400 UNITS; Start 09/12/16 at 10:00 Acetaminophen (Tylenol Liquid) 650 mg Q6H PRN GTB PAIN 1-3 OR TEMP; Start at 08:30 Acetaminophen/ Hydrocodone Bitart ([place] (5/325)) 1 tab Q6H PRN GTB MODERATE PAIN LEVEL 4-6; Start 09/12/16 at 11:30 Acetaminophen/ Hydrocodone Bitart ([place] (5/325)) 2 tab Q6H PRN GTB MODERATE PAIN LEVEL 4-6; Start 09/12/16 at 13:00 Lorazepam (Ativan) 1 mg Q6 PRN GTB ANXIETY; Start 09/12/16 at 08:30 Lorazepam (Ativan) 1 mg HS PRN GTB ANXIETY, HELP WITH SLEEP Last administered on 09/21/16 21:34; Admin Dose 1 MG; Start 09/12/16 at 08:30 Simethicone (Mylicon) 80 mg Q6H PRN GTB INTESTINAL SPASMS/CRAMPING Last administered on 09/20/16 21:48; Admin Dose 80 MG; Start 09/12/16 at 11:30 Zolpidem Tartrate (Ambien) 10 mg HS PRN GTB INSOMNIA Last administered on 21:56; Admin Dose 10 MG; Start 09/12/16 at 08:30 Docusate Sodium 100 mg 100 mg Q12 PRN GTB CONSTIPATION; Start 09/12/16 at 08: 30 Vancomycin HCl/ Sodium Chloride (Vancocin/NS) 500 ml @ 125 mls/hr Q72H IVPB Last administered on 09/21/16 12:11; Admin Dose 125 MLS/HR; Start 09/15/16 at 12:00 Dimethicone (Blistex Lip [place]) 1 applic Q2H PRN TOP CHAPPED LIPS; Start at 16:30 Ferrous Gluconate (Fergon) 325 mg BID PO Last administered on 09/22/16 21:57; Admin Dose 325 MG; Start 09/17/16 at 21:00 Diagnostic Test (Pha) (Accucheck) 1 ea 02 XX ; Start 09/21/16 at 02:00 Apixaban (Eliquis) 2.5 mg BID PO Last administered on 09/22/16 21:57; Admin Dose 2.5 MG; Start 09/21/16 at 09:00 TYLER ZHU MD Sep 23, 2016 07:36
[2016-09-23] MEDS: PYRIDOXINE 50 MG TAB GTB SCH (08:12)
[2016-09-23] MEDS: ALLOPURINOL 100 MG TAB GTB SCH (08:12)
[2016-09-23] MEDS: FLUOXETINE 20 MG CAP GTB SCH (08:12)
[2016-09-23] MEDS: FERROUS GLUCONATE (EC) 325 MG TAB PO SCH ×2 (08:12→21:39)
[2016-09-23] MEDS: FISH OIL 1,000 MG CAP PO SCH (08:12)
[2016-09-23] MEDS: VITAMIN E 400 UNITS CAP GTB SCH (08:12)
[2016-09-23] MEDS: ACETYLCYSTEINE 600 MG CAP GTB SCH ×2 (08:12→21:39)
[2016-09-23] MEDS: LACTOBACILLUS CHEW TAB GTB SCH ×3 (08:12→21:38)
[2016-09-23] MEDS: FLUCONAZOLE 100 MG TAB GTB SCH (08:12)
[2016-09-23] MEDS: CHOLECALCIFEROL 1,000 UNIT TAB GTB SCH (08:12)
[2016-09-23] MEDS: FERROUS SULFATE 60 MG/ML 5ML CUP GTB SCH ×2 (08:13→21:39)
[2016-09-23] MEDS: ASCORBIC ACID 500 MG TAB GTB SCH (08:13)
[2016-09-23] MEDS: APIXABAN 5 MG TABLET PO SCH ×2 (08:13→21:38)
[2016-09-23] MEDS: SODIUM HYPOCHLORITE 0.125% 473 ML BTL IRR SCH (08:13)
[2016-09-23] MEDS: CALCIUM CARBONATE 500 MG CHEW TAB GTB SCH ×3 (08:13→17:05)
[2016-09-23] MEDS: FAMOTIDINE 20 MG TAB GTB SCH (08:13)
--- NOTE | 2016-09-23 12:27 | PN ---
Date/Time of Note Date/Time of Note DATE: 09/23/16 TIME: 12:24 Assessment/Plan VTE Prophylaxis VTE Prophylaxis Intervention: other (eliquis) Lines/Catheters [facility] Type (from [facility] PICC Line Urinary Cath still in place: Yes Assessment/Plan Chief Complaint/Hosp Course Assessment and plan 1. Left great toe osteomyelitis. Patient is status post evaluation by vascular consult. Podiatry following for left foot wound. Continue with antibiotics per ID. 2. Acute on chronic respiratory failure, hypoxic and hypercapnic. S/P intubation on 09/06/2016 because of worsening respiratory distress. Continue on dialysis. Pulmonology following. Provide with bronchodilators . 3. Ventilator associated pneumonia. Sputum culture positive for Acinetobacter baumannii. Continue aspiration precautions. Antibiotics per ID 4. Pulmonary hypertension. Continue supplemental oxygen. 5. Acute on chronic kidney disease. Continue on hemodialysis. Nephrology following. Monitor renal panel 6. Congestive heart failure exacerbation. Acute on chronic diastolic dysfunction. Continue hemodialysis as per nephrology. 7. Type 2 diabetes mellitus. Hemoglobin A1c 5.8. Continue sliding scale insulin. Adjust as needed 8. Essential hypertension. Continue antihypertensives. 9. Atrial fibrillation. Rate controlled. Cardiology following. Therapeutic anticoagulation will be deferred to cardiology. on eliquis now 10. Dyslipidemia. Continue statins. 11. Gout. Continue allopurinol. 12. History of Major depression. We'll resume Lyrica 13. Morbid obesity. weight reduction was advised 15. Deep vein thrombosis prophylaxis. on eliquis 16. Gastrointestinal prophylaxis. Histamine 2 blockers. Disposition and plan: Await PT/OT eval. Titrate down O2 as tolerated. Continue on HD. Discharge when medically stable and cleared by consultants Discussed plan of care with Dr. Tipton Problems: Subjective 24 Hr Interval Summary Free Text/Dictation Awake alert and oriented. Comfortable at present Exam/Review of Systems Vital Signs Vitals Vital Signs Date Time Temp Pulse Resp B/P Pulse Ox O2 Delivery O2 Flow Rate FiO2 09/23/16 12:00 83 09/23/16 11:37 98.0 22 131/73 94 09/23/16 09:19 Nasal Cannula 6.0 09/23/16 04:45 35 Intake and Output 09/22/16 09/22/16 09/23/16 14:59 22:59 06:59 Intake Total 680 ml 300 ml Output Total 100 ml 100 ml Balance 580 ml 200 ml Exam General: alert and oriented. no s/s of distress , on O2 6 L and tolerating well Eyes: pupils equal round, Anicteric sclera Neck: Supple nontender, no JVD Cardiac: Regular rate. Slight murmur auscultated Pulmonary: no obvious wheezing, minimally diminished at bases GI: Obese, bowel sounds active Extremities: Bilateral lower extremity edema Skin: Surgical site of lower extremity clean dry and intact Neurologic: Somnolent, is alert to person place and situation Results Result Diagram: 09/23/1635 09/23/16 0535 Results 24 hrs Laboratory Tests Test 09/22/16 17:13 09/22/16 21:51 09/23/16 05:35 09/23/16 07:32 Bedside Glucose 102 106 89 Anion Gap 17 H Basophils # 0.0 Basophils % 0.6 Blood Morphology Comment Blood Urea Nitrogen 45 H Calcium Level 8.7 Carbon Dioxide Level 26 Chloride Level 97 Creatinine 5.08 H Eosinophils # 0.5 Eosinophils % 7.0 Glucose Level 91 Hematocrit 25.4 L Hemoglobin 8.4 L Lymphocytes # 0.7 L Lymphocytes % 10.3 L Mean Corpuscular Hemoglobin 25.9 L Mean Corpuscular Hemoglobin Concent 33.2 Mean Corpuscular Volume 78.2 L Mean Platelet Volume 8.4 Monocytes # 0.6 Monocytes % 8.2 Neutrophils # 5.2 Neutrophils % 73.9 Nucleated Red Blood Cells # 0.0 Nucleated Red Blood Cells % 0.0 Platelet Count 274 Potassium Level 4.0 Red Blood Count 3.25 L Red Cell Distribution Width 20.3 H Sodium Level 136 White Blood Count 7.0 Test 09/23/16 11:28 Bedside Glucose 132 Medications Medications Current Medications Morphine Sulfate (morphine) 2 mg Q4H PRN IV SEVERE PAIN LEVEL 7-10 Last administered on 09/17/16 02:04; Admin Dose 2 MG; Start 08/13/16 at 17:30 Fish Oil (Fish Oil) 1,000 mg DAILY PO Last administered on 09/23/16 08:12; Admin Dose 1,000 MG; Start 08/14/16 at 09:00 Miscellaneous Information 1 ea NOTE XX ; Start 08/13/16 at 18:00 Glucose (Glutose) 15 gm Q15M PRN PO DECREASED GLUCOSE; Start 08/13/16 at 18:00 Glucose (Glutose) 22.5 gm Q15M PRN PO DECREASED GLUCOSE; Start 08/13/16 at 18: 00 Dextrose (D50w Syringe) 25 ml Q15M PRN IV DECREASED GLUCOSE Last administered on 09/20/16 06:28; Admin Dose 25 ML; Start 08/13/16 at 18:00 Dextrose (D50w Syringe) 50 ml Q15M PRN IV DECREASED GLUCOSE; Start 08/13/16 at 18:00 Glucagon (Glucagen) 1 mg Q15M PRN IM DECREASED GLUCOSE; Start 08/13/16 at 18: 00 Glucose (Glutose) 15 gm Q15M PRN BUCCAL DECREASED GLUCOSE; Start 08/13/16 at 18:00 Sodium Hypochlorite (Dakin'S (09/19 Strength)) 1 applic DAILY IRR Last administered on 09/23/16 08:13; Admin Dose 1 APPLIC; Start 08/13/16 at 20:00 IV Flush (NS 10 ml) 10 ml PRN PRN IV IV PTOTOCOL; Start 08/14/16 at 17:00 Ondansetron HCl (Zofran Inj) 4 mg Q4H PRN IV NAUSEA AND/OR VOMITING; Start 08/16/16 at 12:30 Phenol (Cepastat Lozenge) 1 lozenge Q1H PRN MT DRY MOUTH Last administered on 08/20/16at 21:28; Admin Dose 1 LOZENGE; Start 08/20/16 at 20:30 Lorazepam (Ativan) 2 mg Q4H PRN IV anxiety Last administered on 09/19/16 23:43 ; Admin Dose 2 MG; Start 09/09/16 at 10:30 Insulin Glargine 10 unit 10 unit HS SC Last administered on 09/21/16 20:38; Admin Dose 10 UNIT; Start 09/10/16 at 22:00 Colistimethate Sodium/Sodium Chloride (Coly-Mycin/NS) 100 ml @ 50 mls/hr Q24H IVPB Last administered on 09/22/16 17:15; Admin Dose 50 MLS/HR; Start at 16:00 Acetylcysteine (Nac) 600 mg BID GTB Last administered on 09/23/16 08:12; Admin Dose 600 MG; Start 09/12/16 at 09:00 Allopurinol (Zyloprim) 100 mg DAILY GTB Last administered on 09/23/16 08:12; Admin Dose 100 MG; Start 09/12/16 at 09:00 Ascorbic Acid (Vitamin C) 500 mg DAILY GTB Last administered on 09/23/16 08:13 ; Admin Dose 500 MG; Start 09/12/16 at 09:00 Atorvastatin Calcium (Lipitor) 10 mg QHS GTB Last administered on 09/22/16 21: 56; Admin Dose 10 MG; Start 09/12/16 at 21:00 Cholecalciferol (Vitamin D) 1,000 unit DAILY GTB Last administered on 09/23/16 08:12; Admin Dose 1,000 UNIT; Start 09/12/16 at 09:00 Diphenhydramine HCl (Benadryl) 25 mg Q6H PRN GTB ITCHING Last administered on 09:53; Admin Dose 25 MG; Start 09/12/16 at 08:30 Famotidine (Pepcid) 20 mg DAILY GTB Last administered on 09/23/16 08:13; Admin Dose 20 MG; Start 09/12/16 at 09:00 Ferrous Sulfate (Feosol Liquid Cup) 300 mg BID GTB Last administered on 21:57; Admin Dose 300 MG; Start 09/12/16 at 09:00 Fluconazole (Diflucan) 100 mg DAILY GTB Last administered on 09/23/16 08:12; Admin Dose 100 MG; Start 09/12/16 at 09:00 Fluoxetine HCl (Prozac) 20 mg DAILY GTB Last administered on 09/23/16 08:12; Admin Dose 20 MG; Start 09/12/16 at 10:00 Lactobacillus Acidoph/Bulgaricus (Floranex) 1 tab TID GTB Last administered on 09/23/16 08:12; Admin Dose 1 TAB; Start 09/12/16 at 09:00 Pyridoxine HCl (Vitamin B6) 100 mg DAILY GTB Last administered on 09/23/16 08: 12; Admin Dose 100 MG; Start 09/12/16 at 09:00 Vitamin E (Vitamin E) 400 units DAILY GTB Last administered on 09/23/16 08:12; Admin Dose 400 UNITS; Start 09/12/16 at 10:00 Acetaminophen (Tylenol Liquid) 650 mg Q6H PRN GTB PAIN 1-3 OR TEMP; Start at 08:30 Acetaminophen/ Hydrocodone Bitart ([place] (5/325)) 1 tab Q6H PRN GTB MODERATE PAIN LEVEL 4-6; Start 09/12/16 at 11:30 Acetaminophen/ Hydrocodone Bitart ([place] (5/325)) 2 tab Q6H PRN GTB MODERATE PAIN LEVEL 4-6; Start 09/12/16 at 13:00 Lorazepam (Ativan) 1 mg Q6 PRN GTB ANXIETY; Start 09/12/16 at 08:30 Lorazepam (Ativan) 1 mg HS PRN GTB ANXIETY, HELP WITH SLEEP Last administered on 09/21/16 21:34; Admin Dose 1 MG; Start 09/12/16 at 08:30 Simethicone (Mylicon) 80 mg Q6H PRN GTB INTESTINAL SPASMS/CRAMPING Last administered on 09/20/16 21:48; Admin Dose 80 MG; Start 09/12/16 at 11:30 Zolpidem Tartrate (Ambien) 10 mg HS PRN GTB INSOMNIA Last administered on 21:56; Admin Dose 10 MG; Start 09/12/16 at 08:30 Docusate Sodium 100 mg 100 mg Q12 PRN GTB CONSTIPATION; Start 09/12/16 at 08: 30 Vancomycin HCl/ Sodium Chloride (Vancocin/NS) 500 ml @ 125 mls/hr Q72H IVPB Last administered on 09/21/16 12:11; Admin Dose 125 MLS/HR; Start 09/15/16 at 12:00 Dimethicone (Blistex Lip [place]) 1 applic Q2H PRN TOP CHAPPED LIPS; Start at 16:30 Ferrous Gluconate (Fergon) 325 mg BID PO Last administered on 09/23/16 08:12; Admin Dose 325 MG; Start 09/17/16 at 21:00 Diagnostic Test (Pha) (Accucheck) 1 ea 02 XX ; Start 09/21/16 at 02:00 Apixaban (Eliquis) 2.5 mg BID PO Last administered on 09/23/16 08:13; Admin Dose 2.5 MG; Start 09/21/16 at 09:00 GIUSEPPE BREAUX Sep 23, 2016 12:27
--- NOTE | 2016-09-23 14:11 | CONS ---
Date/Time of Note Date/Time of Note DATE: 09/23/16 TIME: 14:10 Consult Date/Type/Reason Admit Date/Time Aug 13, 2016 at 16:30 Initial Consult Date 08/13/16 Type of Consultation: id Ordering Provider: KELLEN MEDINA MD Subjective alert, eating lunch, no fevers, nad, comfortable on nc Objective Vital Signs Date Time Temp Pulse Resp B/P Pulse Ox O2 Delivery O2 Flow Rate FiO2 09/23/16 13:42 83 24 94 Nasal Cannula 6.0 09/23/16 11:37 98.0 131/73 09/23/16 04:45 35 Intake and Output 09/22/16 09/22/16 09/23/16 15:00 23:00 07:00 Intake Total 680 ml 300 ml Output Total 100 ml 100 ml Balance 580 ml 200 ml Results/Medications Result Diagram: 09/23/16 0535 09/23/16 0535 Results 24 hrs Laboratory Tests Test 09/22/16 17:13 09/22/16 21:51 09/23/16 05:35 09/23/16 07:32 Bedside Glucose 102 106 89 Anion Gap 17 H Basophils # 0.0 Basophils % 0.6 Blood Morphology Comment Blood Urea Nitrogen 45 H Calcium Level 8.7 Carbon Dioxide Level 26 Chloride Level 97 Creatinine 5.08 H Eosinophils # 0.5 Eosinophils % 7.0 Glucose Level 91 Hematocrit 25.4 L Hemoglobin 8.4 L Lymphocytes # 0.7 L Lymphocytes % 10.3 L Mean Corpuscular Hemoglobin 25.9 L Mean Corpuscular Hemoglobin Concent 33.2 Mean Corpuscular Volume 78.2 L Mean Platelet Volume 8.4 Monocytes # 0.6 Monocytes % 8.2 Neutrophils # 5.2 Neutrophils % 73.9 Nucleated Red Blood Cells # 0.0 Nucleated Red Blood Cells % 0.0 Platelet Count 274 Potassium Level 4.0 Red Blood Count 3.25 L Red Cell Distribution Width 20.3 H Sodium Level 136 White Blood Count 7.0 Test 09/23/16 11:28 Bedside Glucose 132 Medications Current Medications Morphine Sulfate (morphine) 2 mg Q4H PRN IV SEVERE PAIN LEVEL 7-10 Last administered on 09/17/16 02:04; Admin Dose 2 MG; Start 08/13/16 at 17:30 Fish Oil (Fish Oil) 1,000 mg DAILY PO Last administered on 09/23/16 08:12; Admin Dose 1,000 MG; Start 08/14/16 at 09:00 Miscellaneous Information 1 ea NOTE XX ; Start 08/13/16 at 18:00 Glucose (Glutose) 15 gm Q15M PRN PO DECREASED GLUCOSE; Start 08/13/16 at 18:00 Glucose (Glutose) 22.5 gm Q15M PRN PO DECREASED GLUCOSE; Start 08/13/16 at 18: 00 Dextrose (D50w Syringe) 25 ml Q15M PRN IV DECREASED GLUCOSE Last administered on 09/20/16 06:28; Admin Dose 25 ML; Start 08/13/16 at 18:00 Dextrose (D50w Syringe) 50 ml Q15M PRN IV DECREASED GLUCOSE; Start 08/13/16 at 18:00 Glucagon (Glucagen) 1 mg Q15M PRN IM DECREASED GLUCOSE; Start 08/13/16 at 18: 00 Glucose (Glutose) 15 gm Q15M PRN BUCCAL DECREASED GLUCOSE; Start 08/13/16 at 18:00 Sodium Hypochlorite (Dakin'S (09/19 Strength)) 1 applic DAILY IRR Last administered on 09/23/16 08:13; Admin Dose 1 APPLIC; Start 08/13/16 at 20:00 IV Flush (NS 10 ml) 10 ml PRN PRN IV IV PTOTOCOL; Start 08/14/16 at 17:00 Ondansetron HCl (Zofran Inj) 4 mg Q4H PRN IV NAUSEA AND/OR VOMITING; Start 08/16/16 at 12:30 Phenol (Cepastat Lozenge) 1 lozenge Q1H PRN MT DRY MOUTH Last administered on 08/20/16at 21:28; Admin Dose 1 LOZENGE; Start 08/20/16 at 20:30 Lorazepam (Ativan) 2 mg Q4H PRN IV anxiety Last administered on 09/19/16 23:43 ; Admin Dose 2 MG; Start 09/09/16 at 10:30 Insulin Glargine 10 unit 10 unit HS SC Last administered on 09/21/16 20:38; Admin Dose 10 UNIT; Start 09/10/16 at 22:00 Colistimethate Sodium/Sodium Chloride (Coly-Mycin/NS) 100 ml @ 50 mls/hr Q24H IVPB Last administered on 09/22/16 17:15; Admin Dose 50 MLS/HR; Start at 16:00 Acetylcysteine (Nac) 600 mg BID GTB Last administered on 09/23/16 08:12; Admin Dose 600 MG; Start 09/12/16 at 09:00 Allopurinol (Zyloprim) 100 mg DAILY GTB Last administered on 09/23/16 08:12; Admin Dose 100 MG; Start 09/12/16 at 09:00 Ascorbic Acid (Vitamin C) 500 mg DAILY GTB Last administered on 09/23/16 08:13 ; Admin Dose 500 MG; Start 09/12/16 at 09:00 Atorvastatin Calcium (Lipitor) 10 mg QHS GTB Last administered on 09/22/16 21: 56; Admin Dose 10 MG; Start 09/12/16 at 21:00 Cholecalciferol (Vitamin D) 1,000 unit DAILY GTB Last administered on 09/23/16 08:12; Admin Dose 1,000 UNIT; Start 09/12/16 at 09:00 Diphenhydramine HCl (Benadryl) 25 mg Q6H PRN GTB ITCHING Last administered on 09:53; Admin Dose 25 MG; Start 09/12/16 at 08:30 Famotidine (Pepcid) 20 mg DAILY GTB Last administered on 09/23/16 08:13; Admin Dose 20 MG; Start 09/12/16 at 09:00 Ferrous Sulfate (Feosol Liquid Cup) 300 mg BID GTB Last administered on 21:57; Admin Dose 300 MG; Start 09/12/16 at 09:00 Fluconazole (Diflucan) 100 mg DAILY GTB Last administered on 09/23/16 08:12; Admin Dose 100 MG; Start 09/12/16 at 09:00 Fluoxetine HCl (Prozac) 20 mg DAILY GTB Last administered on 09/23/16 08:12; Admin Dose 20 MG; Start 09/12/16 at 10:00 Lactobacillus Acidoph/Bulgaricus (Floranex) 1 tab TID GTB Last administered on 09/23/16 13:09; Admin Dose 1 TAB; Start 09/12/16 at 09:00 Pyridoxine HCl (Vitamin B6) 100 mg DAILY GTB Last administered on 09/23/16 08: 12; Admin Dose 100 MG; Start 09/12/16 at 09:00 Vitamin E (Vitamin E) 400 units DAILY GTB Last administered on 09/23/16 08:12; Admin Dose 400 UNITS; Start 09/12/16 at 10:00 Acetaminophen (Tylenol Liquid) 650 mg Q6H PRN GTB PAIN 1-3 OR TEMP; Start at 08:30 Acetaminophen/ Hydrocodone Bitart ([place] (5/325)) 1 tab Q6H PRN GTB MODERATE PAIN LEVEL 4-6; Start 09/12/16 at 11:30 Acetaminophen/ Hydrocodone Bitart ([place] (5/325)) 2 tab Q6H PRN GTB MODERATE PAIN LEVEL 4-6; Start 09/12/16 at 13:00 Lorazepam (Ativan) 1 mg Q6 PRN GTB ANXIETY; Start 09/12/16 at 08:30 Lorazepam (Ativan) 1 mg HS PRN GTB ANXIETY, HELP WITH SLEEP Last administered on 09/21/16 21:34; Admin Dose 1 MG; Start 09/12/16 at 08:30 Simethicone (Mylicon) 80 mg Q6H PRN GTB INTESTINAL SPASMS/CRAMPING Last administered on 09/20/16 21:48; Admin Dose 80 MG; Start 09/12/16 at 11:30 Zolpidem Tartrate (Ambien) 10 mg HS PRN GTB INSOMNIA Last administered on 21:56; Admin Dose 10 MG; Start 09/12/16 at 08:30 Docusate Sodium 100 mg 100 mg Q12 PRN GTB CONSTIPATION; Start 09/12/16 at 08: 30 Vancomycin HCl/ Sodium Chloride (Vancocin/NS) 500 ml @ 125 mls/hr Q72H IVPB Last administered on 09/21/16 12:11; Admin Dose 125 MLS/HR; Start 09/15/16 at 12:00 Dimethicone (Blistex Lip [place]) 1 applic Q2H PRN TOP CHAPPED LIPS; Start at 16:30 Ferrous Gluconate (Fergon) 325 mg BID PO Last administered on 09/23/16 08:12; Admin Dose 325 MG; Start 09/17/16 at 21:00 Diagnostic Test (Pha) (Accucheck) 1 ea 02 XX ; Start 09/21/16 at 02:00 Apixaban (Eliquis) 2.5 mg BID PO Last administered on 09/23/16t 08:13; Admin Dose 2.5 MG; Start 09/21/16 at 09:00 Assessment/Plan Chief Complaint/Hosp Course INDWELLINGS: PICC line, right chest PermCath. ANTIMICROBIALS: 1. Vancomycin. 2. Colistin. PHYSICAL EXAMINATION: GENERAL: Morbidly obese, well-developed, middle-aged man, who is alert, in no distress. HEENT: Head atraumatic, normocephalic. Sclerae anicteric. Buccal mucosa dry. NECK: Supple. CHEST: Chest rise is symmetrical. Breath sounds diminished to the bases. HEART: S1, S2. ABDOMEN: Soft, bowel sounds present. EXTREMITIES: With bilateral lower extremities Patrick wrapped. ASSESSMENT: 1. Acute on chronic respiratory failure==> s/p intubated/extubated. 2. Status post staph aureus septicemia. 3. Left toe osteomyelitis, completing treatment. 4. Morbid obesity. 5. End-stage renal disease, hemodialysis dependent. 6. Diabetes. PLAN: Remains stable, will keep on antibiotics till 09/28/2016, pulmonary/card/ renal rec-s. DW pt DW staff Problems: JAMEY VAZQUEZ NP Sep 23, 2016 14:10
[2016-09-23] MEDS: COLISTIMETHATE 100 MG in SOD CHLORIDE 0.9% 100 ML IVPB SCH (16:21)
--- NOTE | 2016-09-23 17:47 | CONS ---
Date/Time of Note Date/Time of Note DATE: 09/23/16 TIME: 17:46 Consult Date/Type/Reason Admit Date/Time Aug 13, 2016 at 16:30 Initial Consult Date 08/13/16 Type of Consultation: Pulm Ordering Provider: KELLEN MEDINA MD Subjective No events. Objective Vital Signs Date Time Temp Pulse Resp B/P Pulse Ox O2 Delivery O2 Flow Rate FiO2 09/23/16 16:41 6.0 09/23/16 16:38 85 24 95 Nasal Cannula 09/23/16 15:04 98.0 137/65 09/23/16 04:45 35 Intake and Output 09/22/16 09/22/16 09/23/16 15:00 23:00 07:00 Intake Total 680 ml 300 ml Output Total 100 ml 100 ml Balance 580 ml 200 ml HEENT: Pupils equal, round, and reactive to light. CARDIAC: Irreg Irreg S1, S2, CHEST: Bibasilar rales. ABDOMEN: Mildly distended. No bowel sounds. EXTREMITIES: No cyanosis, clubbing, edema +2 Results/Medications Result Diagram: 09/23/16 0535 09/23/16 0535 Results 24 hrs Laboratory Tests Test 09/22/16 21:51 09/23/16 05:35 09/23/16 07:32 09/23/16 11:28 Bedside Glucose 106 89 132 Anion Gap 17 H Basophils # 0.0 Basophils % 0.6 Blood Morphology Comment Blood Urea Nitrogen 45 H Calcium Level 8.7 Carbon Dioxide Level 26 Chloride Level 97 Creatinine 5.08 H Eosinophils # 0.5 Eosinophils % 7.0 Glucose Level 91 Hematocrit 25.4 L Hemoglobin 8.4 L Lymphocytes # 0.7 L Lymphocytes % 10.3 L Mean Corpuscular Hemoglobin 25.9 L Mean Corpuscular Hemoglobin Concent 33.2 Mean Corpuscular Volume 78.2 L Mean Platelet Volume 8.4 Monocytes # 0.6 Monocytes % 8.2 Neutrophils # 5.2 Neutrophils % 73.9 Nucleated Red Blood Cells # 0.0 Nucleated Red Blood Cells % 0.0 Platelet Count 274 Potassium Level 4.0 Red Blood Count 3.25 L Red Cell Distribution Width 20.3 H Sodium Level 136 White Blood Count 7.0 Test 09/23/16 17:27 Bedside Glucose 123 Medications Current Medications Morphine Sulfate (morphine) 2 mg Q4H PRN IV SEVERE PAIN LEVEL 7-10 Last administered on 09/17/16 02:04; Admin Dose 2 MG; Start 08/13/16 at 17:30 Fish Oil (Fish Oil) 1,000 mg DAILY PO Last administered on 09/23/16 08:12; Admin Dose 1,000 MG; Start 08/14/16 at 09:00 Miscellaneous Information 1 ea NOTE XX ; Start 08/13/16 at 18:00 Glucose (Glutose) 15 gm Q15M PRN PO DECREASED GLUCOSE; Start 08/13/16 at 18:00 Glucose (Glutose) 22.5 gm Q15M PRN PO DECREASED GLUCOSE; Start 08/13/16 at 18: 00 Dextrose (D50w Syringe) 25 ml Q15M PRN IV DECREASED GLUCOSE Last administered on 09/20/16 06:28; Admin Dose 25 ML; Start 08/13/16 at 18:00 Dextrose (D50w Syringe) 50 ml Q15M PRN IV DECREASED GLUCOSE; Start 08/13/16 at 18:00 Glucagon (Glucagen) 1 mg Q15M PRN IM DECREASED GLUCOSE; Start 08/13/16 at 18: 00 Glucose (Glutose) 15 gm Q15M PRN BUCCAL DECREASED GLUCOSE; Start 08/13/16 at 18:00 Sodium Hypochlorite (Dakin'S (1/4 Strength)) 1 applic DAILY IRR Last administered on 09/23/16 08:13; Admin Dose 1 APPLIC; Start 08/13/16 at 20:00 IV Flush (NS 10 ml) 10 ml PRN PRN IV IV PTOTOCOL; Start 08/14/16 at 17:00 Ondansetron HCl (Zofran Inj) 4 mg Q4H PRN IV NAUSEA AND/OR VOMITING; Start 08/16/16 at 12:30 Phenol (Cepastat Lozenge) 1 lozenge Q1H PRN MT DRY MOUTH Last administered on 08/20/16at 21:28; Admin Dose 1 LOZENGE; Start 08/20/16 at 20:30 Lorazepam (Ativan) 2 mg Q4H PRN IV anxiety Last administered on 09/19/16 23:43 ; Admin Dose 2 MG; Start 09/09/16 at 10:30 Insulin Glargine 10 unit 10 unit HS SC Last administered on 09/21/16 20:38; Admin Dose 10 UNIT; Start 09/10/16 at 22:00 Colistimethate Sodium/Sodium Chloride (Coly-Mycin/NS) 100 ml @ 50 mls/hr Q24H IVPB Last administered on 09/23/16 16:21; Admin Dose 50 MLS/HR; Start at 16:00 Acetylcysteine (Nac) 600 mg BID GTB Last administered on 09/23/16 08:12; Admin Dose 600 MG; Start 09/12/16 at 09:00 Allopurinol (Zyloprim) 100 mg DAILY GTB Last administered on 09/23/16 08:12; Admin Dose 100 MG; Start 09/12/16 at 09:00 Ascorbic Acid (Vitamin C) 500 mg DAILY GTB Last administered on 09/23/16 08:13 ; Admin Dose 500 MG; Start 09/12/16 at 09:00 Atorvastatin Calcium (Lipitor) 10 mg QHS GTB Last administered on 09/22/16 21: 56; Admin Dose 10 MG; Start 09/12/16 at 21:00 Cholecalciferol (Vitamin D) 1,000 unit DAILY GTB Last administered on 09/23/16 08:12; Admin Dose 1,000 UNIT; Start 09/12/16 at 09:00 Diphenhydramine HCl (Benadryl) 25 mg Q6H PRN GTB ITCHING Last administered on 09:53; Admin Dose 25 MG; Start 09/12/16 at 08:30 Famotidine (Pepcid) 20 mg DAILY GTB Last administered on 09/23/16 08:13; Admin Dose 20 MG; Start 09/12/16 at 09:00 Ferrous Sulfate (Feosol Liquid Cup) 300 mg BID GTB Last administered on 21:57; Admin Dose 300 MG; Start 09/12/16 at 09:00 Fluconazole (Diflucan) 100 mg DAILY GTB Last administered on 09/23/16 08:12; Admin Dose 100 MG; Start 09/12/16 at 09:00 Fluoxetine HCl (Prozac) 20 mg DAILY GTB Last administered on 09/23/16 08:12; Admin Dose 20 MG; Start 12/28/16 at 10:00 Lactobacillus Acidoph/Bulgaricus (Floranex) 1 tab TID GTB Last administered on 09/23/16 13:09; Admin Dose 1 TAB; Start 09/12/16 at 09:00 Pyridoxine HCl (Vitamin B6) 100 mg DAILY GTB Last administered on 09/23/16 08: 12; Admin Dose 100 MG; Start 09/12/16 at 09:00 Vitamin E (Vitamin E) 400 units DAILY GTB Last administered on 09/23/16 08:12; Admin Dose 400 UNITS; Start 09/12/16 at 10:00 Acetaminophen (Tylenol Liquid) 650 mg Q6H PRN GTB PAIN 1-3 OR TEMP; Start at 08:30 Acetaminophen/ Hydrocodone Bitart ([place] (5/325)) 1 tab Q6H PRN GTB MODERATE PAIN LEVEL 4-6; Start 09/12/16 at 11:30 Acetaminophen/ Hydrocodone Bitart ([place] (5/325)) 2 tab Q6H PRN GTB MODERATE PAIN LEVEL 4-6; Start 09/12/16 at 13:00 Lorazepam (Ativan) 1 mg Q6 PRN GTB ANXIETY; Start 09/12/16 at 08:30 Lorazepam (Ativan) 1 mg HS PRN GTB ANXIETY, HELP WITH SLEEP Last administered on 09/21/16 21:34; Admin Dose 1 MG; Start 09/12/16 at 08:30 Simethicone (Mylicon) 80 mg Q6H PRN GTB INTESTINAL SPASMS/CRAMPING Last administered on 09/20/16 21:48; Admin Dose 80 MG; Start 09/12/16 at 11:30 Zolpidem Tartrate (Ambien) 10 mg HS PRN GTB INSOMNIA Last administered on 21:56; Admin Dose 10 MG; Start 09/12/16 at 08:30 Docusate Sodium 100 mg 100 mg Q12 PRN GTB CONSTIPATION; Start 09/12/16 at 08: 30 Vancomycin HCl/ Sodium Chloride (Vancocin/NS) 500 ml @ 125 mls/hr Q72H IVPB Last administered on 09/21/16 12:11; Admin Dose 125 MLS/HR; Start 09/15/16 at 12:00 Dimethicone (Blistex Lip [place]) 1 applic Q2H PRN TOP CHAPPED LIPS; Start at 16:30 Ferrous Gluconate (Fergon) 325 mg BID PO Last administered on 09/23/16 08:12; Admin Dose 325 MG; Start 09/17/16 at 21:00 Diagnostic Test (Pha) (Accucheck) 1 ea 02 XX ; Start 09/21/16 at 02:00 Apixaban (Eliquis) 2.5 mg BID PO Last administered on 09/23/16 08:13; Admin Dose 2.5 MG; Start 09/21/16 at 09:00 Assessment/Plan Additional Assessment/Plan IMP: 1. Acute on chronic respiratory failure, hypoxic and hypercapnic. S/P intubation on 09/06/2016 because of worsening respiratory distress. Stable postextubation. Improving pulmonary edema radiographically. 2. Bilateral pneumonia and pulmonary edema with hypoxemic respiratory failure. Continue infectious disease recommendations. 3..Pulmonary hypertension. Continue supplemental oxygen. 4. End-stage renal failure now on hemodialysis. Continue nephrology recommendations 5. Dysphagia continue tube feeding 6. Atrial fibrillation currently rate controlled 7. Lower extremity ulceration and wounds with osteomyelitis, continue wound care and antibiotics RECS: 1. BiPAP prn; titrate fiO to SpO2 88-92% 2. Maintain SpO2 88-92% 3. Am labs 4. BD's prn 5. HD with GEOVANNA JIMENEZ MD Sep 23, 2016 17:47
[2016-09-23] MEDS: ZOLPIDEM 5 MG TAB GTB PRN (21:38)
[2016-09-23] MEDS: ATORVASTATIN 10 MG TAB GTB SCH (21:39)
[2016-09-23] MEDS: INSULIN GLARGINE [LANtus] 3 ML PEN SC SCH (21:40)
[2016-09-24] VITALS (20 sets, daily range): BP systolic 112–131; BP diastolic 60–70; PULSE 72–93; RESP 17–21
[2016-09-24] MEDS: LORAZEPAM 0.5 MG TAB GTB PRN ×2 (00:16→22:34)
[2016-09-24] MEDS: ALBUTEROL/IPRATROPIUM (NEB) 3 ML AMP HHN SCH ×6 (01:58→20:00)
[2016-09-24] MEDS: ACCUCHECK AT 2AM (Patients on SS coverage) XX SCH (02:00)
[2016-09-24 07:07] LABS: BASOPHIL # 0.1 10^3/ul (0.0-0.1); BASOPHILS % 1.1 % (0.0-2.0); EOSINOPHILS # 0.5 10^3/ul (0.0-0.5); EOSINOPHILS % 8.1 % (0.0-7.0); HEMATOCRIT 24.4 % (42.0-52.0); HEMOGLOBIN 7.9 g/dl (14.0-18.0); LYMPHOCYTES # 0.8 10^3/ul (0.8-2.9); LYMPHOCYTES % 13.5 % (15.0-51.0); MEAN CORPUSCULAR HEMOGLOBIN 25.6 pg (29.0-33.0); MEAN CORPUSCULAR HGB CONC 32.5 g/dl (32.0-37.0); MEAN CORPUSCULAR VOLUME 78.9 fl (82.0-101.0); MEAN PLATELET VOLUME 7.8 fl (7.4-10.4); MONOCYTE # 0.6 10^3/ul (0.3-0.9); NEUTROPHIL # 3.9 10^3/ul (1.6-7.5); NEUTROPHILS % 67.3 % (39.0-77.0); PLATELET COUNT 291 10^3/UL (140-440); RED BLOOD COUNT 3.09 10^6/ul (4.70-6.10); UNCORRECTED WBC 5.9 10^3/ul (4.8-10.8); WHITE BLOOD COUNT 5.9 10^3/ul (4.8-10.8)
[2016-09-24 07:10] LABS: CONDITION 1; LH ANALYZER COMMENTS 1
[2016-09-24 07:18] LABS: POTASSIUM 3.6 mmol/L (3.5-5.1)
[2016-09-24 07:21] LABS: CREATININE 4.44 mg/dl (0.61-1.24)
[2016-09-24 07:22] LABS: CALCIUM 8.4 mg/dl (8.4-10.2)
[2016-09-24] MEDS: Insulin NOVOLOG SS MILD Algorithm (SS with meals and bedtime) SC SCH ×4 (07:25→20:48)
[2016-09-24] MEDS: FERROUS SULFATE 60 MG/ML 5ML CUP GTB SCH (09:42)
[2016-09-24] MEDS: PYRIDOXINE 50 MG TAB GTB SCH (09:42)
[2016-09-24] MEDS: CALCIUM CARBONATE 500 MG CHEW TAB GTB SCH ×3 (09:42→18:01)
[2016-09-24] MEDS: ALLOPURINOL 100 MG TAB GTB SCH (09:42)
[2016-09-24] MEDS: ACETYLCYSTEINE 600 MG CAP GTB SCH (09:43)
[2016-09-24] MEDS: APIXABAN 5 MG TABLET PO SCH ×2 (09:43→21:40)
[2016-09-24] MEDS: VITAMIN E 400 UNITS CAP GTB SCH (09:43)
[2016-09-24] MEDS: FISH OIL 1,000 MG CAP PO SCH (09:43)
[2016-09-24] MEDS: FAMOTIDINE 20 MG TAB GTB SCH (09:43)
[2016-09-24] MEDS: FLUCONAZOLE 100 MG TAB GTB SCH (09:43)
[2016-09-24] MEDS: LACTOBACILLUS CHEW TAB GTB SCH ×2 (09:43→13:57)
[2016-09-24] MEDS: ASCORBIC ACID 500 MG TAB GTB SCH (09:43)
[2016-09-24] MEDS: CHOLECALCIFEROL 1,000 UNIT TAB GTB SCH (09:43)
[2016-09-24] MEDS: FERROUS GLUCONATE (EC) 325 MG TAB PO SCH ×2 (09:43→21:39)
[2016-09-24] MEDS: FLUOXETINE 20 MG CAP GTB SCH (09:43)
[2016-09-24] MEDS: SODIUM HYPOCHLORITE 0.125% 473 ML BTL IRR SCH (09:44)
[2016-09-24] MEDS: VANCOMYCIN 2 GM in SOD CHLORIDE 0.9% 500 ML IVPB SCH (12:10)
--- NOTE | 2016-09-24 12:11 | CONS ---
Date/Time of Note Date/Time of Note DATE: 09/24/16 TIME: 12:10 Consult Date/Type/Reason Admit Date/Time Aug 13, 2016 at 16:30 Initial Consult Date 08/13/16 Type of Consultation: ID Ordering Provider: KELLEN MEDINA MD Subjective no events, alert, feels good, comfortable on nc, no fevers/n/v/d Objective Vital Signs Date Time Temp Pulse Resp B/P Pulse Ox O2 Delivery O2 Flow Rate FiO2 09/24/16 11:42 98.1 89 20 112/63 98 09/24/16 09:56 35 09/24/16 08:00 5.0 09/23/16 20:41 Nasal Cannula Intake and Output 09/23/16 09/23/16 09/24/16 15:00 23:00 07:00 Intake Total 500 ml 950 ml 350 ml Output Total 6500 ml 60 ml Balance -6000 ml 950 ml 290 ml Results/Medications Result Diagram: 09/24/16 0640 09/24/16 0640 Results 24 hrs Laboratory Tests Test 09/23/16 17:27 09/23/16 21:36 09/24/16 06:40 09/24/16 08:19 Bedside Glucose 123 130 80 Anion Gap 16 Basophils # 0.1 Basophils % 1.1 Blood Morphology Comment Blood Urea Nitrogen 34 #H Calcium Level 8.4 Carbon Dioxide Level 30 Chloride Level 95 L Creatinine 4.44 H Eosinophils # 0.5 Eosinophils % 8.1 H Glucose Level 81 Hematocrit 24.4 L Hemoglobin 7.9 L Lymphocytes # 0.8 Lymphocytes % 13.5 L Mean Corpuscular Hemoglobin 25.6 L Mean Corpuscular Hemoglobin Concent 32.5 Mean Corpuscular Volume 78.9 L Mean Platelet Volume 7.8 Monocytes # 0.6 Monocytes % 10.0 Neutrophils # 3.9 Neutrophils % 67.3 Nucleated Red Blood Cells # 0.0 Nucleated Red Blood Cells % 0.0 Platelet Count 291 Potassium Level 3.6 Red Blood Count 3.09 L Red Cell Distribution Width 21.0 H Sodium Level 137 White Blood Count 5.9 Medications Current Medications Morphine Sulfate (morphine) 2 mg Q4H PRN IV SEVERE PAIN LEVEL 7-10 Last administered on 09/17/16t 02:04; Admin Dose 2 MG; Start 08/13/16 at 17:30 Fish Oil (Fish Oil) 1,000 mg DAILY PO Last administered on 09/24/16 09:43; Admin Dose 1,000 MG; Start 08/14/16 at 09:00 Miscellaneous Information 1 ea NOTE XX ; Start 08/13/16 at 18:00 Glucose (Glutose) 15 gm Q15M PRN PO DECREASED GLUCOSE; Start 08/13/16 at 18:00 Glucose (Glutose) 22.5 gm Q15M PRN PO DECREASED GLUCOSE; Start 08/13/16 at 18: 00 Dextrose (D50w Syringe) 25 ml Q15M PRN IV DECREASED GLUCOSE Last administered on 09/20/16 06:28; Admin Dose 25 ML; Start 08/13/16 at 18:00 Dextrose (D50w Syringe) 50 ml Q15M PRN IV DECREASED GLUCOSE; Start 08/13/16 at 18:00 Glucagon (Glucagen) 1 mg Q15M PRN IM DECREASED GLUCOSE; Start 08/13/16 at 18: 00 Glucose (Glutose) 15 gm Q15M PRN BUCCAL DECREASED GLUCOSE; Start 08/13/16 at 18:00 Sodium Hypochlorite (Dakin'S (4 Strength)) 1 applic DAILY IRR Last administered on 09/24/16 09:44; Admin Dose 1 APPLIC; Start 08/13/16 at 20:00 IV Flush (NS 10 ml) 10 ml PRN PRN IV IV PTOTOCOL; Start 08/14/16 at 17:00 Ondansetron HCl (Zofran Inj) 4 mg Q4H PRN IV NAUSEA AND/OR VOMITING; Start 08/16/16 at 12:30 Phenol (Cepastat Lozenge) 1 lozenge Q1H PRN MT DRY MOUTH Last administered on 08/20/16at 21:28; Admin Dose 1 LOZENGE; Start 08/20/16 at 20:30 Lorazepam (Ativan) 2 mg Q4H PRN IV anxiety Last administered on 09/19/16 23:43 ; Admin Dose 2 MG; Start 09/09/16 at 10:30 Insulin Glargine 10 unit 10 unit HS SC Last administered on 09/23/16 21:40; Admin Dose 10 UNIT; Start 09/10/16 at 22:00 Colistimethate Sodium/Sodium Chloride (Coly-Mycin/NS) 100 ml @ 50 mls/hr Q24H IVPB Last administered on 09/23/16 16:21; Admin Dose 50 MLS/HR; Start at 16:00 Acetylcysteine (Nac) 600 mg BID GTB Last administered on 09/24/16 09:43; Admin Dose 600 MG; Start 09/12/16 at 09:00 Allopurinol (Zyloprim) 100 mg DAILY GTB Last administered on 09/24/16 09:42; Admin Dose 100 MG; Start 09/12/16 at 09:00 Ascorbic Acid (Vitamin C) 500 mg DAILY GTB Last administered on 09/24/16 09:43 ; Admin Dose 500 MG; Start 09/12/16 at 09:00 Atorvastatin Calcium (Lipitor) 10 mg QHS GTB Last administered on 09/23/16 21: 39; Admin Dose 10 MG; Start 09/12/16 at 21:00 Cholecalciferol (Vitamin D) 1,000 unit DAILY GTB Last administered on 09/24/16 09:43; Admin Dose 1,000 UNIT; Start 09/12/16 at 09:00 Diphenhydramine HCl (Benadryl) 25 mg Q6H PRN GTB ITCHING Last administered on 09:53; Admin Dose 25 MG; Start 09/12/16 at 08:30 Famotidine (Pepcid) 20 mg DAILY GTB Last administered on 09/24/16 09:43; Admin Dose 20 MG; Start 09/12/16 at 09:00 Ferrous Sulfate (Feosol Liquid Cup) 300 mg BID GTB Last administered on 09:42; Admin Dose 300 MG; Start 09/12/16 at 09:00 Fluconazole (Diflucan) 100 mg DAILY GTB Last administered on 09/24/16 09:43; Admin Dose 100 MG; Start 09/12/16 at 09:00 Fluoxetine HCl (Prozac) 20 mg DAILY GTB Last administered on 09/24/16 09:43; Admin Dose 20 MG; Start 09/12/16 at 10:00 Lactobacillus Acidoph/Bulgaricus (Floranex) 1 tab TID GTB Last administered on 09/24/16 09:43; Admin Dose 1 TAB; Start 09/12/16 at 09:00 Pyridoxine HCl (Vitamin B6) 100 mg DAILY GTB Last administered on 09/24/16 09: 42; Admin Dose 100 MG; Start 09/12/16 at 09:00 Vitamin E (Vitamin E) 400 units DAILY GTB Last administered on 09/24/16 09:43; Admin Dose 400 UNITS; Start 09/12/16 at 10:00 Acetaminophen (Tylenol Liquid) 650 mg Q6H PRN GTB PAIN 1-3 OR TEMP; Start at 08:30 Acetaminophen/ Hydrocodone Bitart ([place] (5/325)) 1 tab Q6H PRN GTB MODERATE PAIN LEVEL 4-6; Start 09/12/16 at 11:30 Acetaminophen/ Hydrocodone Bitart ([place] (5/325)) 2 tab Q6H PRN GTB MODERATE PAIN LEVEL 4-6 Last administered on 09/24/16 11:10; Admin Dose 2 TAB; Start at 13:00 Lorazepam (Ativan) 1 mg Q6 PRN GTB ANXIETY Last administered on 09/24/16 00:16 ; Admin Dose 1 MG; Start 09/12/16 at 08:30 Lorazepam (Ativan) 1 mg HS PRN GTB ANXIETY, HELP WITH SLEEP Last administered on 09/21/16 21:34; Admin Dose 1 MG; Start 09/12/16 at 08:30 Simethicone (Mylicon) 80 mg Q6H PRN GTB INTESTINAL SPASMS/CRAMPING Last administered on 09/20/16 21:48; Admin Dose 80 MG; Start 09/12/16 at 11:30 Zolpidem Tartrate (Ambien) 10 mg HS PRN GTB INSOMNIA Last administered on 21:38; Admin Dose 10 MG; Start 09/12/16 at 08:30 Docusate Sodium 100 mg 100 mg Q12 PRN GTB CONSTIPATION; Start 09/12/16 at 08: 30 Vancomycin HCl/ Sodium Chloride (Vancocin/NS) 500 ml @ 125 mls/hr Q72H IVPB Last administered on 09/21/16 12:11; Admin Dose 125 MLS/HR; Start 09/15/16 at 12:00 Dimethicone (Blistex Lip [place]) 1 applic Q2H PRN TOP CHAPPED LIPS; Start at 16:30 Ferrous Gluconate (Fergon) 325 mg BID PO Last administered on 09/24/16 09:43; Admin Dose 325 MG; Start 09/17/16 at 21:00 Diagnostic Test (Pha) (Accucheck) 1 ea 02 XX ; Start 09/21/16 at 02:00 Apixaban (Eliquis) 2.5 mg BID PO Last administered on 09/24/16 09:43; Admin Dose 2.5 MG; Start 09/21/16 at 09:00 Assessment/Plan Chief Complaint/Hosp Course INDWELLINGS: PICC line, right chest PermCath, [place]. ANTIMICROBIALS: 1. Vancomycin. 2. Colistin. PHYSICAL EXAMINATION: GENERAL: Morbidly obese, well-developed, middle-aged man, who is alert, in no distress. HEENT: Head atraumatic, normocephalic. Sclerae anicteric. Buccal mucosa dry. NECK: Supple. CHEST: Chest rise is symmetrical. Breath sounds diminished to the bases. HEART: S1, S2. ABDOMEN: Soft, bowel sounds present. EXTREMITIES: With bilateral lower extremities Patrick wrapped. ASSESSMENT: 1. Acute on chronic respiratory failure==> s/p intubated/extubated. 2. Status post staph aureus septicemia. 3. Left toe osteomyelitis, completing treatment. 4. Morbid obesity. 5. End-stage renal disease, hemodialysis dependent. 6. Diabetes. PLAN: Remains stable, completing antibiotics till 09/28/2016, poss tx to [facility] , pulmonary/card/renal rec-s. DW pt DW staff Problems: JAMEY VAZQUEZ NP Sep 24, 2016 12:11
--- NOTE | 2016-09-24 12:21 | PN ---
Date/Time of Note Date/Time of Note DATE: 09/24/16 TIME: 12:18 Assessment/Plan VTE Prophylaxis VTE Prophylaxis Intervention: other (eliquis) Lines/Catheters IV [facility] PICC Line Urinary Cath still in place: Yes Assessment/Plan Chief Complaint/Hosp Course Assessment and plan 1. Left great toe osteomyelitis. Patient is status post evaluation by vascular consult. Podiatry following for left foot wound. Continue with antibiotics per ID. Patient for outpatient follow up with Dr. Etienne Taylor 2. Acute on chronic respiratory failure, hypoxic and hypercapnic. S/P intubation on 09/06/2016 because of worsening respiratory distress. Continue on dialysis. Pulmonology following. Provide with bronchodilators . 3. Ventilator associated pneumonia. Sputum culture positive for Acinetobacter baumannii. Continue aspiration precautions. Antibiotics per ID 4. Pulmonary hypertension. Continue supplemental oxygen. 5. Acute on chronic kidney disease. Continue on hemodialysis. Nephrology following. Monitor renal panel 6. Congestive heart failure exacerbation. Acute on chronic diastolic dysfunction. Continue hemodialysis as per nephrology. 7. Type 2 diabetes mellitus. Hemoglobin A1c 5.8. Continue sliding scale insulin. Adjust as needed 8. Essential hypertension. Continue antihypertensives. 9. Atrial fibrillation. Rate controlled. Cardiology following. Therapeutic anticoagulation will be deferred to cardiology. on eliquis now 10. Dyslipidemia. Continue statins. 11. Gout. Continue allopurinol. 12. History of Major depression. We'll resume Lyrica 13. Morbid obesity. weight reduction was advised 15. Deep vein thrombosis prophylaxis. on eliquis 16. Gastrointestinal prophylaxis. Histamine 2 blockers. Disposition and plan: discussed with patient. Will see for possible ARU transfer. Will follow up PT and case management Discussed plan of care with Dr. Hay Problems: Subjective 24 Hr Interval Summary Free Text/Dictation appears comfortable at present. no s/s of distress Exam/Review of Systems Vital Signs Vitals Vital Signs Date Time Temp Pulse Resp B/P Pulse Ox O2 Delivery O2 Flow Rate FiO2 09/24/16 11:42 98.1 89 20 112/63 98 09/24/16 09:56 35 09/24/16 08:00 5.0 09/23/16 20:41 Nasal Cannula Intake and Output 09/23/16 09/23/16 09/24/16 15:00 23:00 07:00 Intake Total 500 ml 950 ml 350 ml Output Total 6500 ml 60 ml Balance -6000 ml 950 ml 290 ml Exam General: alert and oriented. no s/s of distress , Eyes: pupils equal round, Anicteric sclera Neck: Supple nontender, no JVD Cardiac: Regular rate. Slight murmur auscultated Pulmonary: no obvious wheezing, minimally diminished at bases GI: Obese, bowel sounds active Extremities: Bilateral lower extremity edema Skin: Surgical site of lower extremity clean dry and intact Neurologic: Somnolent, is alert to person place and situation Results Result Diagram: 09/24/1640 09/24/16 0640 Results 24 hrs Laboratory Tests Test 09/23/16 17:27 09/23/16 21:36 09/24/16 06:40 09/24/16 08:19 Bedside Glucose 123 130 80 Anion Gap 16 Basophils # 0.1 Basophils % 1.1 Blood Morphology Comment Blood Urea Nitrogen 34 #H Calcium Level 8.4 Carbon Dioxide Level 30 Chloride Level 95 L Creatinine 4.44 H Eosinophils # 0.5 Eosinophils % 8.1 H Glucose Level 81 Hematocrit 24.4 L Hemoglobin 7.9 L Lymphocytes # 0.8 Lymphocytes % 13.5 L Mean Corpuscular Hemoglobin 25.6 L Mean Corpuscular Hemoglobin Concent 32.5 Mean Corpuscular Volume 78.9 L Mean Platelet Volume 7.8 Monocytes # 0.6 Monocytes % 10.0 Neutrophils # 3.9 Neutrophils % 67.3 Nucleated Red Blood Cells # 0.0 Nucleated Red Blood Cells % 0.0 Platelet Count 291 Potassium Level 3.6 Red Blood Count 3.09 L Red Cell Distribution Width 21.0 H Sodium Level 137 White Blood Count 5.9 Medications Medications Current Medications Morphine Sulfate (morphine) 2 mg Q4H PRN IV SEVERE PAIN LEVEL 7-10 Last administered on 09/17/16 02:04; Admin Dose 2 MG; Start 08/13/16 at 17:30 Fish Oil (Fish Oil) 1,000 mg DAILY PO Last administered on 09/24/16 09:43; Admin Dose 1,000 MG; Start 08/14/16 at 09:00 Miscellaneous Information 1 ea NOTE XX ; Start 08/13/16 at 18:00 Glucose (Glutose) 15 gm Q15M PRN PO DECREASED GLUCOSE; Start 08/13/16 at 18:00 Glucose (Glutose) 22.5 gm Q15M PRN PO DECREASED GLUCOSE; Start 08/13/16 at 18: 00 Dextrose (D50w Syringe) 25 ml Q15M PRN IV DECREASED GLUCOSE Last administered on 09/20/16 06:28; Admin Dose 25 ML; Start 08/13/16 at 18:00 Dextrose (D50w Syringe) 50 ml Q15M PRN IV DECREASED GLUCOSE; Start 08/13/16 at 18:00 Glucagon (Glucagen) 1 mg Q15M PRN IM DECREASED GLUCOSE; Start 08/13/16 at 18: 00 Glucose (Glutose) 15 gm Q15M PRN BUCCAL DECREASED GLUCOSE; Start 08/13/16 at 18:00 Sodium Hypochlorite (Dakin'S (09/19 Strength)) 1 applic DAILY IRR Last administered on 09/24/16 09:44; Admin Dose 1 APPLIC; Start 08/13/16 at 20:00 IV Flush (NS 10 ml) 10 ml PRN PRN IV IV PTOTOCOL; Start 08/14/16 at 17:00 Ondansetron HCl (Zofran Inj) 4 mg Q4H PRN IV NAUSEA AND/OR VOMITING; Start 08/16/16 at 12:30 Phenol (Cepastat Lozenge) 1 lozenge Q1H PRN MT DRY MOUTH Last administered on 08/20/16at 21:28; Admin Dose 1 LOZENGE; Start 08/20/16 at 20:30 Lorazepam (Ativan) 2 mg Q4H PRN IV anxiety Last administered on 09/19/16 23:43 ; Admin Dose 2 MG; Start 09/09/16 at 10:30 Insulin Glargine 10 unit 10 unit HS SC Last administered on 09/23/16 21:40; Admin Dose 10 UNIT; Start 09/10/16 at 22:00 Colistimethate Sodium/Sodium Chloride (Coly-Mycin/NS) 100 ml @ 50 mls/hr Q24H IVPB Last administered on 09/23/16 16:21; Admin Dose 50 MLS/HR; Start at 16:00 Acetylcysteine (Nac) 600 mg BID GTB Last administered on 09/24/16 09:43; Admin Dose 600 MG; Start 09/12/16 at 09:00 Allopurinol (Zyloprim) 100 mg DAILY GTB Last administered on 09/24/16 09:42; Admin Dose 100 MG; Start 09/12/16 at 09:00 Ascorbic Acid (Vitamin C) 500 mg DAILY GTB Last administered on 09/24/16 09:43 ; Admin Dose 500 MG; Start 09/12/16 at 09:00 Atorvastatin Calcium (Lipitor) 10 mg QHS GTB Last administered on 09/23/16 21: 39; Admin Dose 10 MG; Start 09/12/16 at 21:00 Cholecalciferol (Vitamin D) 1,000 unit DAILY GTB Last administered on 09/24/16 09:43; Admin Dose 1,000 UNIT; Start 09/12/16 at 09:00 Diphenhydramine HCl (Benadryl) 25 mg Q6H PRN GTB ITCHING Last administered on 09:53; Admin Dose 25 MG; Start 09/12/16 at 08:30 Famotidine (Pepcid) 20 mg DAILY GTB Last administered on 09/24/16 09:43; Admin Dose 20 MG; Start 09/12/16 at 09:00 Ferrous Sulfate (Feosol Liquid Cup) 300 mg BID GTB Last administered on 09:42; Admin Dose 300 MG; Start 09/12/16 at 09:00 Fluconazole (Diflucan) 100 mg DAILY GTB Last administered on 09/24/16 09:43; Admin Dose 100 MG; Start 09/12/16 at 09:00 Fluoxetine HCl (Prozac) 20 mg DAILY GTB Last administered on 09/24/16 09:43; Admin Dose 20 MG; Start 09/12/16 at 10:00 Lactobacillus Acidoph/Bulgaricus (Floranex) 1 tab TID GTB Last administered on 09/24/16 09:43; Admin Dose 1 TAB; Start 09/12/16 at 09:00 Pyridoxine HCl (Vitamin B6) 100 mg DAILY GTB Last administered on 09/24/16 09: 42; Admin Dose 100 MG; Start 09/12/16 at 09:00 Vitamin E (Vitamin E) 400 units DAILY GTB Last administered on 09/24/16 09:43; Admin Dose 400 UNITS; Start 09/12/16 at 10:00 Acetaminophen (Tylenol Liquid) 650 mg Q6H PRN GTB PAIN 1-3 OR TEMP; Start at 08:30 Acetaminophen/ Hydrocodone Bitart ([place] (5/325)) 1 tab Q6H PRN GTB MODERATE PAIN LEVEL 4-6; Start 09/12/16 at 11:30 Acetaminophen/ Hydrocodone Bitart ([place] (5/325)) 2 tab Q6H PRN GTB MODERATE PAIN LEVEL 4-6 Last administered on 09/24/16 11:10; Admin Dose 2 TAB; Start at 13:00 Lorazepam (Ativan) 1 mg Q6 PRN GTB ANXIETY Last administered on 09/24/16 00:16 ; Admin Dose 1 MG; Start 09/12/16 at 08:30 Lorazepam (Ativan) 1 mg HS PRN GTB ANXIETY, HELP WITH SLEEP Last administered on 09/21/16 21:34; Admin Dose 1 MG; Start 09/12/16 at 08:30 Simethicone (Mylicon) 80 mg Q6H PRN GTB INTESTINAL SPASMS/CRAMPING Last administered on 09/20/16 21:48; Admin Dose 80 MG; Start 09/12/16 at 11:30 Zolpidem Tartrate (Ambien) 10 mg HS PRN GTB INSOMNIA Last administered on 21:38; Admin Dose 10 MG; Start 09/12/16 at 08:30 Docusate Sodium 100 mg 100 mg Q12 PRN GTB CONSTIPATION; Start 09/12/16 at 08: 30 Vancomycin HCl/ Sodium Chloride (Vancocin/NS) 500 ml @ 125 mls/hr Q72H IVPB Last administered on 09/24/16 12:10; Admin Dose 125 MLS/HR; Start 09/15/16 at 12:00 Dimethicone (Blistex Lip [place]) 1 applic Q2H PRN TOP CHAPPED LIPS; Start at 16:30 Ferrous Gluconate (Fergon) 325 mg BID PO Last administered on 09/24/16 09:43; Admin Dose 325 MG; Start 09/17/16 at 21:00 Diagnostic Test (Pha) (Accucheck) 1 ea 02 XX ; Start 09/21/16 at 02:00 Apixaban (Eliquis) 2.5 mg BID PO Last administered on 09/24/16t 09:43; Admin Dose 2.5 MG; Start 09/21/16 at 09:00 GIUSEPPE BREAUX Sep 24, 2016 12:21
--- NOTE | 2016-09-24 13:49 | CONS ---
Date/Time of Note Date/Time of Note DATE: 09/24/16 TIME: 13:48 Assessment/Plan Assessment/Plan Additional Assessment/Plan 60 yo male with 1) Respiratory Failure S/p Extubation 2) HCAP 3) LORNA on CKD, dependent on HD. 4) Volume Overload, Anasarca 5) Pulm HTN 6) Morbid Obesity 7) Bilateral lower extremities acute on chronic cellulitis with left toe osteomyelitis. 8) Status post oxacillin-sensitive Staphylococcus aureus septicemia. S/p HD yesterday, UF tolerated Cont maintenance HD Next HD will be ordered for tomorrow At this time pt is oliguric, therefore dependent on HD CM Consult for HD center placement Pt may be transferred to ARU vs Nano Will cont to follow along with you S/p Perma Cath Consultation Date/Type/Reason Admit Date/Time Aug 13, 2016 at 16:30 Initial Consult Date 08/13/16 Type of Consultation: Nephrology Reason for Consultation LORNA Referring Provider: KELLEN MEDINA MD 24 HR Interval Summary Free Text/Dictation Transferred out of ICU, S/p HD yesterday, Oliguric Constitutional: requiring O2 Exam/Review of Systems Vital Signs Vitals Vital Signs Date Time Temp Pulse Resp B/P Pulse Ox O2 Delivery O2 Flow Rate FiO2 09/24/16 13:30 80 96 35 09/24/16 13:30 6.0 09/24/16 13:28 20 09/24/16 11:42 98.1 112/63 09/23/16 20:41 Nasal Cannula Intake and Output 09/23/16 09/23/16 09/24/16 15:00 23:00 07:00 Intake Total 500 ml 950 ml 350 ml Output Total 6500 ml 60 ml Balance -6000 ml 950 ml 290 ml Exam Constitutional: alert, oriented, No distress ENMT: mucosa pink and moist Neck: No jvd Respiratory: crackles/rales, No labored breathing Cardiovascular: edema (Improved), regular rate and rhythm Gastrointestinal: non-tender, soft Extremities: edema 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, nl mental status, No lethargic Skin: No diaphoresis Results Result Diagram: 09/24/16 0640 09/24/16 0640 Results 24 hrs Laboratory Tests Test 09/23/16 17:27 09/23/16 21:36 09/24/16 06:40 09/24/16 08:19 Bedside Glucose 123 130 80 Anion Gap 16 Basophils # 0.1 Basophils % 1.1 Blood Morphology Comment Blood Urea Nitrogen 34 #H Calcium Level 8.4 Carbon Dioxide Level 30 Chloride Level 95 L Creatinine 4.44 H Eosinophils # 0.5 Eosinophils % 8.1 H Glucose Level 81 Hematocrit 24.4 L Hemoglobin 7.9 L Lymphocytes # 0.8 Lymphocytes % 13.5 L Mean Corpuscular Hemoglobin 25.6 L Mean Corpuscular Hemoglobin Concent 32.5 Mean Corpuscular Volume 78.9 L Mean Platelet Volume 7.8 Monocytes # 0.6 Monocytes % 10.0 Neutrophils # 3.9 Neutrophils % 67.3 Nucleated Red Blood Cells # 0.0 Nucleated Red Blood Cells % 0.0 Platelet Count 291 Potassium Level 3.6 Red Blood Count 3.09 L Red Cell Distribution Width 21.0 H Sodium Level 137 White Blood Count 5.9 Test 09/24/16 12:09 Bedside Glucose 120 Medications Medications Current Medications Morphine Sulfate (morphine) 2 mg Q4H PRN IV SEVERE PAIN LEVEL 7-10 Last administered on 09/17/16 02:04; Admin Dose 2 MG; Start 08/13/16 at 17:30 Fish Oil (Fish Oil) 1,000 mg DAILY PO Last administered on 09/24/16 09:43; Admin Dose 1,000 MG; Start 08/14/16 at 09:00 Miscellaneous Information 1 ea NOTE XX ; Start 08/13/16 at 18:00 Glucose (Glutose) 15 gm Q15M PRN PO DECREASED GLUCOSE; Start 08/13/16 at 18:00 Glucose (Glutose) 22.5 gm Q15M PRN PO DECREASED GLUCOSE; Start 08/13/16 at 18: 00 Dextrose (D50w Syringe) 25 ml Q15M PRN IV DECREASED GLUCOSE Last administered on 09/20/16 06:28; Admin Dose 25 ML; Start 08/13/16 at 18:00 Dextrose (D50w Syringe) 50 ml Q15M PRN IV DECREASED GLUCOSE; Start 08/13/16 at 18:00 Glucagon (Glucagen) 1 mg Q15M PRN IM DECREASED GLUCOSE; Start 08/13/16 at 18: 00 Glucose (Glutose) 15 gm Q15M PRN BUCCAL DECREASED GLUCOSE; Start 08/13/16 at 18:00 Sodium Hypochlorite ([place]akin'S (09/19 Strength)) 1 applic DAILY IRR Last administered on 09/24/16 09:44; Admin Dose 1 APPLIC; Start 08/13/16 at 20:00 IV Flush (NS 10 ml) 10 ml PRN PRN IV IV PTOTOCOL; Start 08/14/16 at 17:00 Ondansetron HCl (Zofran Inj) 4 mg Q4H PRN IV NAUSEA AND/OR VOMITING; Start 08/16/16 at 12:30 Phenol (Cepastat Lozenge) 1 lozenge Q1H PRN MT DRY MOUTH Last administered on 08/20/16at 21:28; Admin Dose 1 LOZENGE; Start 08/20/16 at 20:30 Lorazepam (Ativan) 2 mg Q4H PRN IV anxiety Last administered on 09/19/16 23:43 ; Admin Dose 2 MG; Start 09/09/16 at 10:30 Insulin Glargine 10 unit 10 unit HS SC Last administered on 09/23/16 21:40; Admin Dose 10 UNIT; Start 09/10/16 at 22:00 Colistimethate Sodium/Sodium Chloride ([place]y-Mycin/NS) 100 ml @ 50 mls/hr Q24H IVPB Last administered on 09/23/16 16:21; Admin Dose 50 MLS/HR; Start at 16:00 Acetylcysteine (Nac) 600 mg BID GTB Last administered on 09/24/16 09:43; Admin Dose 600 MG; Start 09/12/16 at 09:00 Allopurinol (Zyloprim) 100 mg DAILY GTB Last administered on 09/24/16 09:42; Admin Dose 100 MG; Start 09/12/16 at 09:00 Ascorbic Acid (Vitamin C) 500 mg DAILY GTB Last administered on 09/24/16 09:43 ; Admin Dose 500 MG; Start 09/12/16 at 09:00 Atorvastatin Calcium (Lipitor) 10 mg QHS GTB Last administered on 09/23/16 21: 39; Admin Dose 10 MG; Start 09/12/16 at 21:00 Cholecalciferol (Vitamin D) 1,000 unit DAILY GTB Last administered on 09/24/16 09:43; Admin Dose 1,000 UNIT; Start 09/12/16 at 09:00 Diphenhydramine HCl (Benadryl) 25 mg Q6H PRN GTB ITCHING Last administered on 09:53; Admin Dose 25 MG; Start 09/12/16 at 08:30 Famotidine (Pepcid) 20 mg DAILY GTB Last administered on 09/24/16 09:43; Admin Dose 20 MG; Start 09/12/16 at 09:00 Ferrous Sulfate (Feosol Liquid Cup) 300 mg BID GTB Last administered on 09:42; Admin Dose 300 MG; Start 09/12/16 at 09:00 Fluconazole (Diflucan) 100 mg DAILY GTB Last administered on 09/24/16 09:43; Admin Dose 100 MG; Start 09/12/16 at 09:00 Fluoxetine HCl (Prozac) 20 mg DAILY GTB Last administered on 09/24/16 09:43; Admin Dose 20 MG; Start 09/12/16 at 10:00 Lactobacillus Acidoph/Bulgaricus (Floranex) 1 tab TID GTB Last administered on 09/24/16 09:43; Admin Dose 1 TAB; Start 09/12/16 at 09:00 Pyridoxine HCl (Vitamin B6) 100 mg DAILY GTB Last administered on 09/24/16 09: 42; Admin Dose 100 MG; Start 09/12/16 at 09:00 Vitamin E (Vitamin E) 400 units DAILY GTB Last administered on 09/24/16 09:43; Admin Dose 400 UNITS; Start 09/12/16 at 10:00 Acetaminophen (Tylenol Liquid) 650 mg Q6H PRN GTB PAIN 1-3 OR TEMP; Start at 08:30 Acetaminophen/ Hydrocodone Bitart ([place] (5/325)) 1 tab Q6H PRN GTB MODERATE PAIN LEVEL 4-6; Start 09/12/16 at 11:30 Acetaminophen/ Hydrocodone Bitart ([place] (5/325)) 2 tab Q6H PRN GTB MODERATE PAIN LEVEL 4-6 Last administered on 09/24/16 11:10; Admin Dose 2 TAB; Start at 13:00 Lorazepam (Ativan) 1 mg Q6 PRN GTB ANXIETY Last administered on 09/24/16 00:16 ; Admin Dose 1 MG; Start 09/12/16 at 08:30 Lorazepam (Ativan) 1 mg HS PRN GTB ANXIETY, HELP WITH SLEEP Last administered on 09/21/16 21:34; Admin Dose 1 MG; Start 09/12/16 at 08:30 Simethicone (Mylicon) 80 mg Q6H PRN GTB INTESTINAL SPASMS/CRAMPING Last administered on 09/20/16 21:48; Admin Dose 80 MG; Start 09/12/16 at 11:30 Zolpidem Tartrate (Ambien) 10 mg HS PRN GTB INSOMNIA Last administered on 21:38; Admin Dose 10 MG; Start 09/12/16 at 08:30 Docusate Sodium 100 mg 100 mg Q12 PRN GTB CONSTIPATION; Start 09/12/16 at 08: 30 Vancomycin HCl/ Sodium Chloride (Vancocin/NS) 500 ml @ 125 mls/hr Q72H IVPB Last administered on 09/24/16 12:10; Admin Dose 125 MLS/HR; Start 09/15/16 at 12:00 Dimethicone (Blistex Lip [place]) 1 applic Q2H PRN TOP CHAPPED LIPS; Start at 16:30 Ferrous Gluconate (Fergon) 325 mg BID PO Last administered on 09/24/16 09:43; Admin Dose 325 MG; Start 09/17/16 at 21:00 Diagnostic Test (Pha) (Accucheck) 1 ea 02 XX ; Start 09/21/16 at 02:00 Apixaban (Eliquis) 2.5 mg BID PO Last administered on 09/24/16 09:43; Admin Dose 2.5 MG; Start 09/21/16 at 09:00 DYAN FRANKLIN MD Sep 24, 2016 13:49
[2016-09-24] MEDS: COLISTIMETHATE 100 MG in SOD CHLORIDE 0.9% 100 ML IVPB SCH (18:00)
--- NOTE | 2016-09-24 18:50 | PN ---
DATE: 09/24/2016 CARDIOLOGY PROGRESS FOLLOWUP PROGRESS NOTE SUBJECTIVE: Discussed with the staff, discussed with patient's . Rhythm strip was reviewed. T he patient remains in atrial fibrillation. Heart rate has been stable. Complained of shortness of breath, no chest pain or pressure. No palpitation. No bleeding. MEDICATIONS: Reviewed. PHYSICAL EXAMINATION: VITAL SIGNS: Temperature 98.4, heart rate of 83, blood pressure 125/65, respiration rate of 22, sat urating 93%. HEENT: Normocephalic, atraumatic, morbidly obese gentleman. Pupils are equal. CARDIOVASCULAR: Irregularly irregular. Systolic murmur. PULMONARY: Mild rhonchi at the base bilaterally. GASTROINTESTINAL: Obese, soft, nontender. EXTREMITIES: With positive lower extremity edema in dressing. NEUROLOGIC: Awake, alert. PSYCHIATRIC: Calm, pleasant. LABORATORY: Sodium 137, potassium 3.6, BUN of 34, creatinine of 4.4, glucose of 81. WBC of 5.9, he moglobin 7.9, platelets 291. Guaiac stool has been negative x4. ASSESSMENT AND PLAN: 1. Atrial fibrillation, chronic. Currently on anticoagulation. 2. Renal failure on dialysis. 3. Hypoxemia respiratory failure. 4. Obesity hypoventilation syndrome. 5. History of hypertension. 6. Congestive heart failure/fluid overload. 7. Morbid obesity. 8. Severe anemia. 9. Pleural effusion, status post thoracentesis. RECOMMENDATIONS: We will continue with the dialysis as per renal recommendations. Risk and altern atives of Eliquis was discussed with the patient. The patient wants to proceed and continue with it . We will check guaiac stool again to rule out any signs of bleeding. Transfusion p.r.n. with hemo dialysis. We will continue to monitor on telemetry and respiratory care as per pulmonary will be co ntinued. Dictated By: GARDENIA RAZO/NTS Conf#: [id number] DID#: [id number] CC: GIUSEPPE BREAUX MEAT COOLER;*EndCC*
[2016-09-24] MEDS ORDERED: ATORVASTATIN 10 MG TAB PO SCH (21:00)
[2016-09-24] MEDS: LACTOBACILLUS CHEW TAB PO SCH (21:40)
[2016-09-24] MEDS: ACETYLCYSTEINE 600 MG CAP PO SCH (21:40)
[2016-09-24] MEDS: INSULIN GLARGINE [LANtus] 3 ML PEN SC SCH (21:46)
[2016-09-24] MEDS: FERROUS SULFATE 60 MG/ML 5ML CUP PO SCH (21:46)
[2016-09-24] MEDS: ZOLPIDEM 5 MG TAB GTB PRN (23:35)
[2016-09-25] VITALS (24 sets, daily range): BP systolic 119–137; BP diastolic 58–79; PULSE 77–90; RESP 18–20
[2016-09-25] MEDS: ALBUTEROL/IPRATROPIUM (NEB) 3 ML AMP HHN SCH ×5 (01:23→17:11)
[2016-09-25] MEDS: ACCUCHECK AT 2AM (Patients on SS coverage) XX SCH (02:00)
[2016-09-25 06:58] LABS: BASOPHILS % 0.3 % (0.0-2.0); EOSINOPHILS # 0.5 10^3/ul (0.0-0.5); EOSINOPHILS % 6.5 % (0.0-7.0); HEMOGLOBIN 7.8 g/dl (14.0-18.0); LYMPHOCYTES # 0.7 10^3/ul (0.8-2.9); LYMPHOCYTES % 10.7 % (15.0-51.0); MEAN CORPUSCULAR HEMOGLOBIN 25.5 pg (29.0-33.0); MEAN CORPUSCULAR HGB CONC 32.5 g/dl (32.0-37.0); MEAN CORPUSCULAR VOLUME 78.4 fl (82.0-101.0); MEAN PLATELET VOLUME 8.2 fl (7.4-10.4); MONOCYTE # 0.8 10^3/ul (0.3-0.9); MONOCYTES % 10.9 % (0.0-11.0); NEUTROPHILS % 71.6 % (39.0-77.0); PLATELET COUNT 334 10^3/UL (140-440); RED BLOOD COUNT 3.06 10^6/ul (4.70-6.10); RED CELL DISTRIBUTION WIDTH 20.9 % (11.5-14.5)
[2016-09-25 07:01] LABS: CONDITION 1; LH ANALYZER COMMENTS 1
[2016-09-25] MEDS: Insulin NOVOLOG SS MILD Algorithm (SS with meals and bedtime) SC SCH ×3 (07:25→18:55)
[2016-09-25 07:59] LABS: POTASSIUM 4.1 mmol/L (3.5-5.1)
[2016-09-25 08:02] LABS: CALCIUM 8.3 mg/dl (8.4-10.2)
[2016-09-25] MEDS: SODIUM HYPOCHLORITE 0.125% 473 ML BTL IRR SCH (09:00)
[2016-09-25] MEDS: FERROUS SULFATE 60 MG/ML 5ML CUP PO SCH (09:00)
[2016-09-25] MEDS: APIXABAN 5 MG TABLET PO SCH (09:29)
[2016-09-25] MEDS: FLUOXETINE 20 MG CAP GTB SCH (09:29)
[2016-09-25] MEDS: LACTOBACILLUS CHEW TAB PO SCH ×2 (09:30→18:48)
[2016-09-25] MEDS: ALLOPURINOL 100 MG TAB GTB SCH (09:30)
[2016-09-25] MEDS: FISH OIL 1,000 MG CAP PO SCH (09:30)
[2016-09-25] MEDS: FERROUS GLUCONATE (EC) 325 MG TAB PO SCH (09:30)
[2016-09-25] MEDS: ASCORBIC ACID 500 MG TAB GTB SCH (09:30)
[2016-09-25] MEDS: ACETYLCYSTEINE 600 MG CAP PO SCH (09:30)
[2016-09-25] MEDS: CALCIUM CARBONATE 500 MG CHEW TAB GTB SCH ×3 (09:30→18:57)
[2016-09-25] MEDS: PYRIDOXINE 50 MG TAB GTB SCH (09:30)
[2016-09-25] MEDS: FLUCONAZOLE 100 MG TAB GTB SCH (09:30)
[2016-09-25] MEDS: FAMOTIDINE 20 MG TAB GTB SCH (09:30)
[2016-09-25] MEDS: VITAMIN E 400 UNITS CAP GTB SCH (09:30)
[2016-09-25] MEDS: CHOLECALCIFEROL 1,000 UNIT TAB GTB SCH (09:31)
--- NOTE | 2016-09-25 11:34 | PN ---
DATE: 09/25/2016 CARDIOLOGY FOLLOWUP PROGRESS NOTE SUBJECTIVE: Discussed with the staff. Rhythm strip was reviewed. The patient remains in atrial fi brillation. Heart remains stable. Denies any chest pain or pressure, denies any palpitation, denie s any bleeding to me. He still has shortness of breath. MEDICATIONS: Reviewed. PHYSICAL EXAMINATION: VITAL SIGNS: Temperature 98.1, heart rate of 88, blood pressure 123/58, respiration rate of 22, sat urating 96%. HEENT: Normocephalic, atraumatic. Obese gentleman. Pupils are equal. CARDIOVASCULAR: Irregularly irregular. Systolic murmur. PULMONARY: Minimal rhonchi at the base. GASTROINTESTINAL: Obese, soft, nontender. EXTREMITIES: Positive lower extremity edema with a pressure dressing. NEUROLOGIC: Awake and alert. Responds appropriately. PSYCHIATRIC: Appears to be calm and pleasant. LABORATORY: WBC of 7, hemoglobin 7.8, platelets of 334. Sodium 135, potassium 4.1, BUN of 46, crea tinine of 5.0, glucose of 68. ASSESSMENT AND PLAN: 1. Atrial fibrillation, chronic. Currently on anticoagulation. We will continue to monitor. 2. Renal failure, currently on dialysis. 3. Hypoxemic respiratory failure, status post intubation, currently extubated. 4. Obstructive sleep apnea. 5. Obesity hypoventilation syndrome. 6. Hypertension. 7. History of fluid overload status congestive heart failure secondary to diastolic dysfunction. 8. Anemia. 9. Pleural effusion. RECOMMENDATIONS: Dialysis will be continued as per renal. Antibiotic as per internal medicine and ID recommendation. I will continue with the Eliquis for now. Guaiac stool has been repeatedly been negative. I have ordered more repeat stool guaiac as well. If there is any sign of bleeding, we w ill stop anticoagulation. Heart rate is currently under control with atrial fibrillation. We will continue to monitor only at this point. Dictated By: GARDENIA RAZO/GREGORY Conf#: [id number] DID#: [id number] CC: ;*EndCC*
--- NOTE | 2016-09-25 14:10 | PN ---
DATE: 09/25/2016 PULMONARY FOLLOWUP SUBJECTIVE: Chart reviewed. No significant events noted. Patient on 35% FIO2, saturating 96%, and does not appear in acute distress. PHYSICAL EXAMINATION: VITAL SIGNS: Blood pressure 123/58, pulse 84, respirations 18, temperature 98.4. HEENT: Pupils are equal and reactive to light. NECK: Supple, no JVD noted, no cervical adenopathy noted, no carotid bruits heard. LUNGS: Fair breath sounds bilaterally. CARDIOVASCULAR: S1, S2 normal. ABDOMEN: Soft, nontender, obese. No organomegaly or masses noted. EXTREMITIES: No clubbing or cyanosis noted. 1+ pretibial edema present. NEUROLOGICAL: Awake. LABORATORY DATA: WBC 7, hemoglobin 7.8, hematocrit 24, platelets 334. Sodium 135, potassium 4.1, c hloride 97, CO2 23, BUN 46, creatinine 5, glucose 68. IMPRESSION: 1. Status post acute hypoxemic respiratory failure, stable post extubation. 2. End-stage renal disease, on hemodialysis now. 3. Pulmonary edema. 4. Diabetes mellitus. 5. Obesity hypoventilation syndrome. 6. Status post thoracentesis. RECOMMENDATIONS: 1. Continue current treatment. 2. Lower FIO2 as tolerated. 3. BiPAP p.r.n. 4. Cardiology/nephrology followup. Dictated By: MARYANN ARAUJO MD, MA/GREGORY Conf#: [id number] DID#: [id number]
--- NOTE | 2016-09-25 14:34 | DS ---
Date/Time of Note Date/Time of Note DATE: 09/25/16 TIME: 14:22 Discharge Summary Admission/Discharge Info Admit Date/Time Aug 13, 2016 at 16:30 Discharge Date/Time Final Diagnosis 1. Left great toe osteomyelitis. 2. Acute on chronic respiratory failure, hypoxic and hypercapnic. 3. Ventilator associated pneumonia. 4. Pulmonary hypertension. 5. Acute on chronic kidney disease. 6. Congestive heart failure exacerbation. 7. Type 2 diabetes mellitus. 8. Essential hypertension. 9. Atrial fibrillation. 10. Dyslipidemia. 11. Gout. 12. History of Major depression. 13. Morbid obesity. Patient Condition: Stable Consults 1. Dr. Gopi Peres 2. Dr. Chris Vivar 3. Dr. Mehrdad Murray 4. Dr. Cesar Hardy 5. Dr. Rell Lucas 6. [facility]. [facility] This is a 60-year-old male with history of type 2 diabetes, previous osteomyelitis, hypertension, atrial fibrillation, CHF with diastolic dysfunction , gout, morbid obesity, peripheral vascular disease, depression, CKD, and chronic respiratory failure came to [facility] due to worsening of left greater toe swelling and redness. Per patient he had been having this issue for the past several weeks. He is also does follow-up with [facility] with regular checkups. He also has a wound care nurse at follows him at his house. Due to his worsening left greater toe he did come to [facility] for further evaluation. Patient was seen by fine chemicals operator as well as by vascular surgeon. Patient did have evaluation by vascular surgeon who did note him to have moderate peripheral arterial disease. He was continue with wound care per podiatry recommendations at antibiotics per infectious disease cardiology consultant. He was optimized medically for this but also was informed of the possibility that later if his left foot wound would not heal that he may need amputation. Patient also was noted with CHF and chronically was with shortness of breath and for this we did get global climate change researcher follow. He also did have some acute kidney injury which did make diuresing him difficult. Due to patient's continuous shortness of breath was finally decided for patient to have hemodialysis to help with his fluid overload. Patient did need permacath for his dialysis access. After receiving permacath patient did have difficulty with getting off mechanical ventilation. He was therefore transferred to ICU for further management and care. Ornamental Ironworker did follow him and we did do vent liberation trials. After several sessions of dialysis and patient's respiratory status from a responding better with fluid removal we were finally able to get him off mechanical ventilation and titrate his oxygen down. He was again then transferred to telemetry. He was noted with ventilator associated pneumonia for which we did place patient on appropriate antibiotics as well. Patient was otherwise optimized medically. He was continued on hemodialysis for his CHF as well as fluid overload. He is continue on insulin regimen for his type 2 diabetes and antihypertensives for his hypertension. Patient was noted with atrial fibrillation and cardiology did follow him and placed him on anticoagulation. Continue on statin medication for dyslipidemia. He was placed on allopurinol for his gout. After discussion with the patient it was decided for patient to go to bilateral respiratory facility for further management and care of his respiratory status. The plan of care was discussed with the patient and patient did verbalize understanding. On the day of discharge patient was in stable condition Discussed plan of care with Dr. Hay Disposition: Home Home Meds Active Scripts Metoprolol Tartrate* (Lopressor*) 25 Mg Tab, 12.5 MG PO BID for 28 Days, TAB Prov:SHASTA VALENTE MD 10/14/15 Reported Medications Zolpidem Tartrate* (Zolpidem Tartrate*) 10 Mg Tablet, 10 MG PO QHS Y for INSOMNIA, #30 TAB 08/13/16 Hydrocodone/Acetaminophen ([place] 5-325 Tablet) 1 Each Tablet, 2 EACH PO Q6 Y for PAIN LEVEL 6-10, TAB 08/13/16 [place]-3 Fatty Acids/Fish Oil (Fish Oil 1,000 mg Capsule) 1 Each Capsule, 1 EACH PO TID, CAP 08/13/16 Acetaminophen* (Acetaminophen*) 650 Mg Tablet, 650 MG PO Q6H Y for PAIN LEVEL 1- 5, #30 TAB 08/13/16 Simethicone* (Mylicon*) 80 Mg Tab, 80 MG PO Q6H Y for INTESTINAL SPASMS/CRAMPING , TAB 08/13/16 Insulin Aspart* (Novolog Insulin Pen*) 100 Unit/Ml Soln, 0 SC .SLIDING SCALE AC , EA 0-120 =0 UNITS 121-150 =0 UNITS 151-200 =1 UNIT 201-250 =2 UNITS 251-300 =3 UNITS 301-350 =4 UNITS 351-400 =5 UNITS ABOVE 400 GIVE 6 UNITS CALL PMD 08/13/16 Mag Hydrox/Al Hydrox/Simeth (Mag-Al Plus Xs Suspension) 30 Ml Oral.susp, 10 ML PO Q6 Y for DISTENSION/GAS/BLOATING 08/13/16 Lorazepam* (Lorazepam*) 0.5 Mg Tablet, 0.5 MG PO Q6 Y for ANXIETY, TAB 08/13/16 Potassium Chloride* (Klor-Con*) 20 Meq Tabsr, 40 MEQ PO DAILY, TAB.SA 08/13/16 Insulin Glargine* (Lantus*) 100 Unit/Ml Soln, 12 UNIT SC QHS, #1 VIAL 08/13/16 Heparin Sod (Porcine) (Heparin) 1,000 Unit/Ml Soln, 5000 UNIT IJ Q12 08/13/16 Glucagon,Human Recombinant (Glucagon Emergency Kit) 1 Mg Kit, 1 MG IJ PRN, KIT 08/13/16 Famotidine* (Pepcid*) 20 Mg Tablet, 20 MG PO BID, #60 TAB 08/13/16 Atorvastatin Calcium (Atorvastatin Calcium) 10 Mg Tablet, 10 MG PO QHS, #30 TAB 08/13/16 Protein Supplement (Promod) 946 Ml Liquid, 30 ML PO 06/06/16 Ascorbic Acid* (Ascorbic Acid*) 500 Mg/5 Ml Syrup, 500 MG PO DAILY, #150 ML 06/06/16 Lactobacillus Acidophilus* (Lactinex*) 1 Tab Chew, 1 TAB PO TID, TAB 06/06/16 Ipratropium-Albuterol (Ipratropium-Albuterol) 0.5-3 Mg/3 Ml Ampul.neb, 3 ML INHALATION Q4, #30 VIAL 06/06/16 Ipratropium-Albuterol (Ipratropium-Albuterol) 0.5-3 Mg/3 Ml Ampul.neb, 3 ML INHALATION Q2H, #30 VIAL 06/06/16 Vitamin E Mixed* (Vitamin E*) 400 Unit Capsule, 400 UNIT PO DAILY, CAP 09/23/15 Pyridoxine Hcl* (Vitamin B-6*) 100 Mg Tablet, 100 MG PO DAILY, TAB 09/23/15 Cholecalciferol* (Vitamin D3*) 1,000 Unit Tablet, 1000 UNIT PO DAILY, TAB 09/23/15 Pregabalin* (Lyrica*) 50 Mg Capsule, 50 MG PO TID, CAP 09/23/15 Bumetanide* (Bumetanide*) 2 Mg Tablet, 2 MG PO BID, TAB MORNING AND AFTERNOON 09/23/15 Aspirin* (Aspirin* (EC)) 81 Mg Tablet.dr, 81 MG PO DAILY, TAB 09/23/15 Allopurinol* (Allopurinol*) 100 Mg Tablet, 100 MG PO DAILY, TAB 09/23/15 Fish Oil* (Fish Oil*) 1,000 Mg Cap 10/27/12 Fluoxetine Hcl (Fluoxetine Hcl) 20 Mg Tablet, 20 MG PO DAILY 10/27/12 Ferrous Sulfate* (Ferrous Sulfate*) 325 Mg Tablet, 325 MG PO BID 10/27/12 Follow-up Plan patient to be transferred to [facility] for further management and care Pending Labs Laboratory Tests Test 09/24/16 17:59 09/24/16 20:17 09/25/16 06:30 09/25/16 08:15 Bedside Glucose 119mg/dL (70-220) 124mg/dL (70-220) 76mg/dL (70-220) Anion Gap 19 (8-16) Basophils # 0.010^3/ul (0.0-0.1) Basophils % 0.3% (0.0-2.0) Blood Morphology Comment Blood Urea Nitrogen 46mg/dl (7-20) Calcium Level 8.3mg/dl (8.4-10.2) Carbon Dioxide Level 23mmol/L (21-31) Chloride Level 97mmol/L (97-110) Creatinine 5.00mg/dl (0.61-1.24) Eosinophils # 0.510^3/ul (0.0-0.5) Eosinophils % 6.5% (0.0-7.0) Glucose Level 68mg/dl (70-220) Hematocrit 24.0% (42.0-52.0) Hemoglobin 7.8g/dl (14.0-18.0) Lymphocytes # 0.710^3/ul (0.8-2.9) Lymphocytes % 10.7% (15.0-51.0) Mean Corpuscular Hemoglobin 25.5pg (29.0-33.0) Mean Corpuscular Hemoglobin Concent 32.5g/dl (32.0-37.0) Mean Corpuscular Volume 78.4fl (82.0-101.0) Mean Platelet Volume 8.2fl (7.4-10.4) Monocytes # 0.810^3/ul (0.3-0.9) Monocytes % 10.9% (0.0-11.0) Neutrophils # 5.010^3/ul (1.6-7.5) Neutrophils % 71.6% (39.0-77.0) Nucleated Red Blood Cells # 0.010^3/ul (0.0-0.0) Nucleated Red Blood Cells % 0.0/100WBC (0.0-0.0) Platelet Count 33927^3/UL (140-440) Potassium Level 4.1mmol/L (3.5-5.1) Red Blood Count 3.0610^6/ul (4.70-6.10) Red Cell Distribution Width 20.9% (11.5-14.5) Sodium Level 135mmol/L (135-144) White Blood Count 7.010^3/ul (4.8-10.8) Test 09/25/16 12:58 Bedside Glucose 93mg/dL (70-220) GIUSEPPE BREAUX Sep 25, 2016 14:33
[2016-09-25] MEDS: EPOETIN 4000 UNITS/1 ML INJ (ESRD) SC SCH (18:48)
== END 2016-09-25 19:40 | DRG 299 ==
LOC: E/R 14:08 → MS2 16:30 → TEL 09-01 19:35 → ICU 09-06 22:36 → TEL 09-22 01:35
PROVIDERS: ADMIT Student in an Organized Health Care Education/Training Program; ATTEND Student in an Organized Health Care Education/Training Program
PROC: 02HV33Z Insertion of Infusion Device into Superior Vena Cava, Percutaneous Approach (ICD-10-PCS; 2016-08-13)
PROC: B41D1ZZ Fluoroscopy of Aorta and Bilateral Lower Extremity Arteries using Low Osmolar Contrast (ICD-10-PCS; 2016-08-16)
PROC: 0BH17EZ Insertion of Endotracheal Airway into Trachea, Via Natural or Artificial Opening (ICD-10-PCS; 2016-09-06)
PROC: 0W993ZZ Drainage of Right Pleural Cavity, Percutaneous Approach (ICD-10-PCS; 2016-09-06)
PROC: 05HM33Z Insertion of Infusion Device into Right Internal Jugular Vein, Percutaneous Approach (ICD-10-PCS; 2016-09-06)
PROC: B543ZZA Ultrasonography of Right Jugular Veins, Guidance (ICD-10-PCS; 2016-09-06)
PROC: 5A1955Z Respiratory Ventilation, Greater than 96 Consecutive Hours (ICD-10-PCS; principal; 2016-09-06 09:30)
PROC: 5A1D60Z (ICD-10-PCS; 2016-09-07)
DX: E11.52 Type 2 diabetes mellitus with diabetic peripheral angiopathy with gangrene (principal); J96.22 Acute and chronic respiratory failure with hypercapnia; R65.11 Systemic inflammatory response syndrome (SIRS) of non-infectious origin with acute organ dysfunction; R57.9 Shock, unspecified; I50.33 Acute on chronic diastolic (congestive) heart failure; J18.9 Pneumonia, unspecified organism; I70.263 Atherosclerosis of native arteries of extremities with gangrene, bilateral legs; N17.9 Acute kidney failure, unspecified; I13.0 Hypertensive heart and chronic kidney disease with heart failure and stage 1 through stage 4 chronic kidney disease, or unspecified chronic kidney disease; M86.9 Osteomyelitis, unspecified; E66.2 Morbid (severe) obesity with alveolar hypoventilation; J95.851 Ventilator associated pneumonia; Z68.41 Body mass index [BMI] 40.0-44.9, adult; L97.922 Non-pressure chronic ulcer of unspecified part of left lower leg with fat layer exposed; I27.2 Other secondary pulmonary hypertension; I48.91 Unspecified atrial fibrillation; E11.621 Type 2 diabetes mellitus with foot ulcer; L97.519 Non-pressure chronic ulcer of other part of right foot with unspecified severity; M10.9 Gout, unspecified; F32.9 Major depressive disorder, single episode, unspecified; E66.01 Morbid (severe) obesity due to excess calories; E78.5 Hyperlipidemia, unspecified; L03.032 Cellulitis of left toe; N18.9 Chronic kidney disease, unspecified; D64.9 Anemia, unspecified; E11.69 Type 2 diabetes mellitus with other specified complication; E11.628 Type 2 diabetes mellitus with other skin complications; L03.031 Cellulitis of right toe; G47.33 Obstructive sleep apnea (adult) (pediatric); B96.89 Other specified bacterial agents as the cause of diseases classified elsewhere; R09.02 Hypoxemia; Y95 Nosocomial condition
CPT/HCPCS: 32555; 36415; 36558; 36569; 36600; 71010; 71250; 73718; 74230; 75630; 76604; 76705; 76937; 76998; 80048; 80053; 80202; 81001; 81003; 82040; 82270; 82540; 82550; 82553; 82565; 82728; 82803; 82945; 82962; 83540; 83605; 83615; 83735; 84100; 84134; 84155; 84157; 84300; 84439; 84443; 84484; 84520; 85025; 85049; 85610; 85670; 85730; 87040; 87070; 87081; 87086; 87102; 87116; 89050; 89190; 89220; 90935; 92610; 92611; 93005; 93306; 93923; 93965; 93970; 94002; 94003; 94640; 94660; 94664; 94770; 96372; 96374; 96375; 96376; 97001; 97003; 97110; 97116; 97164; 97168; 97530; 97535; C1760; C1769; C1887; C1894; J0330; J0690; J0886; J1644; J1815; J1940; J2060; J2185; J2270; J2543; J2710; J2997; J3370; J3480; J7030; J7040; J7050; J7070; P9045; P9047

== ENCOUNTER 2016-11-17 06:04 | Inpatient (IN) | payer BC ==
[2016-11-17] VITALS (25 sets, daily range): BP systolic 113–180; BP diastolic 61–110; PULSE 69–122; RESP 18–34; TEMP 98; Ht 177.8 cm; Wt 132.0 kg
[~2016-11-17] VITALS: Ht 177.8 cm; Wt 132.0 kg
[~2016-11-17 06:04] MED LIST changes: +ACET-2047 PO; +ATOR10TA65 PO; +BUME1TAB18 PO; -BUME2TAB18 PO; -CLB05O30 TOP; -DIGO125T PO; -DOCU-144 PO; +FAMO-18 PO; +GLUC1KIT IJ; -HYDR-3498 PO; -HYDR-3671 PO; +HYDR-906 PO; -INSU100C SC; +LORA0.5T PO; -LOV60I SC; +MAG30ORA PO; +MYL80 PO; +NOVO3I SC; -OMEG-135; +OMEG-135 PO; +OMEG1CAP55 PO; +POTA-57 PO; -SIMV20TA97 PO; +Vancomycin Iv Per Pharmacy XX; +ZOLP10TA5 PO; -ZOLP5TAB PO
[2016-11-17] MEDS ORDERED: ALBUTEROL 0.5% (NEB) 2.5 MG/0.5 ML AMP INH STA (06:38)
[2016-11-17] MEDS ORDERED: VANCOMYCIN 1 GM (PMX) 250 ML IVPB SCH (07:00)
[2016-11-17] MEDS ORDERED: CEFEPIME 1GM/50 ML (PMX) 50 ML IVPB ONE (07:00)
[2016-11-17 07:11] LABS: ADD SCAN DIFF NO
[2016-11-17 07:19] LABS: ABNORMAL IP MESSAGE 1; BASOPHILS % 0.7 % (0.0-2.0); EOSINOPHILS # 0.3 10^3/ul (0.0-0.5); EOSINOPHILS % 7.6 % (0.0-7.0); HEMATOCRIT 32.7 % (42.0-52.0); HEMOGLOBIN 9.8 g/dl (14.0-18.0); LYMPHOCYTES # 0.4 10^3/ul (0.8-2.9); MEAN CORPUSCULAR HEMOGLOBIN 24.8 pg (29.0-33.0); MEAN CORPUSCULAR VOLUME 82.8 fl (82.0-101.0); MONOCYTE # 0.6 10^3/ul (0.3-0.9); NEUTROPHIL # 2.9 10^3/ul (1.6-7.5); NEUTROPHILS % 68.5 % (39.0-77.0); PLATELET COUNT 138 10^3/UL (140-415); RED BLOOD COUNT 3.95 10^6/ul (4.70-6.10); RED CELL DISTRIBUTION WIDTH 19.9 % (11.5-14.5); WHITE BLOOD COUNT 4.2 10^3/ul (4.8-10.8)
[2016-11-17 07:26] LABS: INR 1.27; PARTIAL THROMBOPLASTIN TIME 36.3 Sec (25.0-35.0); PT RATIO 1.3
[2016-11-17 07:29] LABS: ALBUMIN 3.5 g/dl (3.3-4.9); POTASSIUM 4.1 mmol/L (3.5-5.1)
[2016-11-17 07:31] LABS: CREATININE 1.98 mg/dl (0.61-1.24)
[2016-11-17 07:32] LABS: ALBUMIN/GLOBULIN RATIO 0.89; BILIRUBIN,INDIRECT 0.1 mg/dl (0-1.1); BILIRUBIN,TOTAL 0.1 mg/dl (0.2-1.3); CALCIUM 8.5 mg/dl (8.4-10.2); TOTAL PROTEIN 7.4 g/dl (6.1-8.1)
[2016-11-17 07:43] LABS: TROPONIN-I 0.017 ng/ml (0.00-0.12)
--- NOTE | 2016-11-17 07:53 | RADRPT ---
PROCEDURE: Chest. CLINICAL INDICATION: Chest pain. TECHNIQUE: Single frontal view of the chest was obtained. COMPARISON: 10/17/2016. FINDINGS: There is a right-sided Perma-Cath extending to the SVC/RA junction. The cardiac silhouette is enlar ged. The aortic arch is unremarkable. There is mild central vascular congestion. There is right b asilar patchy infiltrate. There is no pleural effusion. There is no pneumothorax. IMPRESSION: Moderate cardiomegaly and mild central vascular congestion, slightly increased. Right basilar patchy infiltrates, slightly increased. .Bennett Hurt MD, Date Time Electronically viewed and signed by .Bennett Hurt MD, on 11/17/2016 07:52 .T/
--- NOTE | 2016-11-17 07:59 | ERA ---
ER Documentation Chief Complaint Date/Time DATE: 11/17/16 TIME: 07:56 Chief Complaint cough for a week, had xray with atelectasis HPI 61-year-old man brought in by EMS from [facility] for cough 1 week and intermittent tactile fevers. Patient states he had a recent x-ray and was diagnosed with pneumonia. Patient also states about a month ago he had pneumonia. He does have end-stage kidney disease and was recently hemodialyzed. He denies chest pain, no calf or leg swelling, no vomiting or diarrhea. ROS All systems reviewed and are negative except as per history of present illness. Medications Home Meds Active Scripts Metoprolol Tartrate* (Lopressor*) 25 Mg Tab, 12.5 MG PO BID for 30 Days, TAB Prov:SAEIDGIUSEPPE 08/20/16 Reported Medications Zinc Sulfate* (Zinc Sulfate*) 220 Mg Tablet, 220 MG PO DAILY, TAB 11/17/16 Cholecalciferol* (Vitamin D3*) 1,000 Unit Tablet, 1000 UNIT PO DAILY, TAB 11/17/16 Linagliptin (TRADJENTA) 5 Mg Tablet, 5 MG PO TID, TAB 11/17/16 Sevelamer Carbonate* (Renvela*) 800 Mg Tablet, 0.8 GM PO WITH MEALS, TAB 11/17/16 Hydrocodone/Acetaminophen (Truman 5-325 Tablet) 1 Each Tablet, 1 EACH PO Q6, TAB 11/17/16 Multivitamins* (Theragran*) 1 Tab Tab, 1 TAB PO DAILY, TAB 11/17/16 Insulin Detemir (Levemir) 100 Unit/1 Ml Vial, 7 UNIT SC QHS, VIAL 11/17/16 Apixaban* (Eliquis*) 2.5 Mg Tablet, 2.5 MG PO BID, TAB 11/17/16 Bisacodyl* (Bisacodyl*) 10 Mg Supp, 10 MG ME Q24H Y for CONSTIPATION, SUPP 11/17/16 Cranberry Extract (Cranberry) 425 Mg Capsule, 425 MG PO DAILY, CAP 11/17/16 Docusate Sodium* (Docusate Sodium*) 100 Mg Capsule, 200 MG PO QHS, #30 CAP 11/17/16 Bumetanide* (Bumetanide*) 1 Mg Tablet, 1 MG PO BID, TAB 11/17/16 Diphenhydramine Hcl* (Benadryl*) 25 Mg Cap, 25 MG PO BID Y for ITCHING, CAP 11/17/16 Albuterol Sulfate* (Albuterol Sulfate* Neb) 0.083%-3 Ml Neb, 2.5 MG NEB Q6 Y for WHEEZING AND SOB, #30 VIAL 11/17/16 Zolpidem Tartrate* (Zolpidem Tartrate*) 10 Mg Tablet, 10 MG PO QHS Y for INSOMNIA, #30 TAB 08/13/16 [place]-3 Fatty Acids/Fish Oil (Fish Oil 1,000 mg Capsule) 1 Each Capsule, 1 EACH PO TID, CAP 08/13/16 Acetaminophen* (Acetaminophen*) 650 Mg Tablet, 650 MG PO Q6H Y for PAIN LEVEL 1- 5, #30 TAB 08/13/16 Simethicone* (Mylicon*) 80 Mg Tab, 80 MG PO Q6H Y for INTESTINAL SPASMS/CRAMPING , TAB 08/13/16 Mag Hydrox/Al Hydrox/Simeth (Mag-Al Plus Xs Suspension) 30 Ml Oral.susp, 10 ML PO Q6 Y for DISTENSION/GAS/BLOATING 08/13/16 Lorazepam* (Lorazepam*) 0.5 Mg Tablet, 0.5 MG PO Q6 Y for ANXIETY, TAB 08/13/16 Glucagon,Human Recombinant (Glucagon Emergency Kit) 1 Mg Kit, 1 MG IJ PRN, KIT 08/13/16 Famotidine* (Pepcid*) 20 Mg Tablet, 20 MG PO BID, #60 TAB 08/13/16 Atorvastatin Calcium (Atorvastatin Calcium) 10 Mg Tablet, 10 MG PO QHS, #30 TAB 08/13/16 Ascorbic Acid* (Ascorbic Acid*) 500 Mg/5 Ml Syrup, 500 MG PO DAILY, #150 ML 06/06/16 Lactobacillus Acidophilus* (Lactinex*) 1 Tab Chew, 1 TAB PO TID, TAB 06/06/16 Ipratropium-Albuterol (Ipratropium-Albuterol) 0.5-3 Mg/3 Ml Ampul.neb, 3 ML INHALATION Q2H, #30 VIAL 06/06/16 Vitamin E Mixed* (Vitamin E*) 400 Unit Capsule, 400 UNIT PO DAILY, CAP 09/23/15 Pyridoxine Hcl* (Vitamin B-6*) 100 Mg Tablet, 100 MG PO DAILY, TAB 09/23/15 Cholecalciferol* (Vitamin D3*) 1,000 Unit Tablet, 1000 UNIT PO DAILY, TAB 09/23/15 Pregabalin* (Lyrica*) 50 Mg Capsule, 50 MG PO TID, CAP 09/23/15 Allopurinol* (Allopurinol*) 100 Mg Tablet, 100 MG PO DAILY, TAB 09/23/15 Fluoxetine Hcl (Fluoxetine Hcl) 20 Mg Tablet, 20 MG PO DAILY 10/27/12 Ferrous Sulfate* (Ferrous Sulfate*) 325 Mg Tablet, 325 MG PO BID 10/27/12 Discontinued Reported Medications Hydrocodone/Acetaminophen (Truman 5-325 Tablet) 1 Each Tablet, 2 EACH PO Q6 Y for PAIN LEVEL 6-10, TAB 08/13/16 Insulin Aspart* (Novolog Insulin Pen*) 100 Unit/Ml Soln, 0 SC .SLIDING SCALE AC , EA 0-120 =0 UNITS 121-150 =0 UNITS 151-200 =1 UNIT 201-250 =2 UNITS 251-300 =3 UNITS 301-350 =4 UNITS 351-400 =5 UNITS ABOVE 400 GIVE 6 UNITS CALL PMD 08/13/16 Potassium Chloride* (Klor-Con*) 20 Meq Tabsr, 40 MEQ PO DAILY, TAB.SA 08/13/16 Protein Supplement (Promod) 946 Ml Liquid, 30 ML PO 06/06/16 Ipratropium-Albuterol (Ipratropium-Albuterol) 0.5-3 Mg/3 Ml Ampul.neb, 3 ML INHALATION Q4, #30 VIAL 06/06/16 Aspirin* (Aspirin* (EC)) 81 Mg Tablet.dr, 81 MG PO DAILY, TAB 09/23/15 Discontinued Scripts [Vancomycin Iv Per Pharmacy] 1 EA EACH No Conflict Check, 0 EA XX .PER PROTOCOL for 42 Days Prov:GIUSEPPE BREAUX 08/20/16 [place]-3/Dha/Epa/Fish Oil (FISH OIL EC 1,000 MG SOFTGEL) 1 Each Capsule.dr, 1000 MG PO DAILY for 30 Days Prov:GIUSEPPE BREAUX 08/20/16 Insulin Glargine* (Lantus*) 100 Unit/Ml Soln, 15 UNIT SC QHS for 30 Days Prov:GIUSEPPE BREAUX 08/20/16 Bumetanide* (Bumetanide*) 1 Mg Tablet, 1 MG PO 06,14 for 30 Days, TAB Prov:GIUSEPPE BREAUX 08/20/16 Allergies Allergies: Coded Allergies: No Known Allergy (Unverified , 11/17/16) PMhx/Soc Recent healthcare associated pneumonia, left toe osteomyelitis, end-stage kidney disease hemodialyzed yesterday, hypertension, diabetes mellitus, depression, obesity, atrial fibrillation, congestive heart failure History of Surgery: Yes Anesthesia Reaction: Yes Hx 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 Disorder: No Hx Respiratory Disorders: Yes Hx Cardiac Disorders: Yes (afib) Hx Psychiatric Problems: Yes (depression) Hx Miscellaneous Medical Probl: Yes (chf, athritis, ESRD, GERD, dermatits, ) Hx Alcohol Use: Yes (1 a month) Hx Substance Use: No Hx Tobacco Use: No Smoking Status: Unknown if ever smoked FmHx Family History: No diabetes Physical Exam Vitals Vital Signs Date Time Temp Pulse Resp B/P Pulse Ox O2 Delivery O2 Flow Rate FiO2 11/17/16 11:41 98.0 98 20 132/74 93 Nasal Cannula 4.0 11/17/16 09:59 99 20 139/61 95 Nasal Cannula 4.0 11/17/16 08:00 90 20 130/62 96 Nasal Cannula 4.0 11/17/16 07:22 85 19 95 Nasal Cannula 3.0 11/17/16 07:22 3.0 11/17/16 06:30 Nasal Cannula 4 11/17/16 06:19 Nasal Cannula 2.0 11/17/16 06:13 99.4 85 31 138/83 93 Physical Exam GENERAL: Well-developed, obese, dyspneic, afebrile HEENT: Moist mucous membranes, pink conjunctiva, no cervical spine tenderness or step-off deformities, no goiter, no jaundice or icterus, extraocular movements intact without pain. No submandibular induration, and no pharyngeal erythema NEURO: Alert and oriented 3, cranial nerves II through XII intact bilaterally, pupils equal round reactive to light, no focal deficits or facial asymmetry, sensation intact distally Strength 5/5 in upper and lower extremities bilaterally CARDIAC: Regular rate and rhythm, no murmurs rubs or gallops LUNGS: Bibasilar crackles and scattered wheezes, no stridor ABDOMEN: Soft nontender, no guarding, no rigidity, no rebound, no psoas sign no obturator sign. Normoactive bowel sounds SKIN: Warm and dry to touch, no abrasions, contusions, or hematomas, no lacerations, no ecchymosis, no target lesions, and without ulcers EXTREMITIES: No clubbing cyanosis or edema, calves are bilaterally symmetrical, no Homans sign, no popliteal cord sign. Distal pulses equal and bilateral PSYCH: Normal affect without agitation or irritability Result Diagram: 11/18/16 0450 11/18/16 0450 Results 24 hrs Laboratory Tests Test 11/17/16 01:00 11/17/16 05:50 11/17/16 06:30 11/17/16 08:50 Arterial Blood HCO3 28.8mmol/L Arterial Blood Base Excess 1.4mmol/L Arterial Blood Oxygen Saturation 90.4mmHG Khoi Test ACCEPTAB Arterial Blood Gas Puncture Site Right Radial Arterial Blood Carboxyhemoglobin 0.2% Arterial Blood Date Drawn 11/18/2016 1:10:34 AM Arterial Blood Methemoglobin 0.2% Arterial Blood pCO2 (Temp correct) 60.1mmhg Arterial Blood pH (Temp corrected) 7.298 Arterial Blood pO2 (Temp corrected) 61.1mmHG Blood Gas A-a O2 Differential 409.8mmHg Blood Gas Actual Respiration Rate 26 Blood Gas Critical Value Read Back trace esquivel Blood Gas IPAP/EPAP Ratio 28/01 Blood Gas Modality mask-bipap Blood Gas Notified Time 11/18/2016 1:21:18 AM Blood Gas Notified Whom jmd Blood Gas Respiration Rate 22.0 Blood Gas Specimen Source Blood arterial Blood Gas Temperature 37.0C FiO2 75.0% Oxyhemoglobin Percent 90.0% Total Hemoglobin 10.8g/dl Lactic Acid Level 1.1mmol/L 1.0mmol/L Activated Partial Thromboplast Time 36.3Sec Alanine Aminotransferase (ALT/SGPT) 21IU/L Albumin 3.5g/dl Albumin/Globulin Ratio 0.89 Alkaline Phosphatase 158IU/L Anion Gap 17 Aspartate Amino Transf (AST/SGOT) 33IU/L Basophils # 0.010^3/ul Basophils % 0.7% Blood Urea Nitrogen 37mg/dl Calcium Level 8.5mg/dl Carbon Dioxide Level 31mmol/L Chloride Level 96mmol/L Creatinine 1.98mg/dl Direct Bilirubin 0.00mg/dl Eosinophils # 0.310^3/ul Eosinophils % 7.6% Globulin 3.90g/dl Glucose Level 87mg/dl Hematocrit 32.7% Hemoglobin 9.8g/dl INR International Normalized Ratio 1.27 Indirect Bilirubin 0.1mg/dl Lipase 219U/L Lymphocytes # 0.410^3/ul Lymphocytes % 9.0% Mean Corpuscular Hemoglobin 24.8pg Mean Corpuscular Hemoglobin Concent 30.0g/dl Mean Corpuscular Volume 82.8fl Mean Platelet Volume 10.0fl Monocytes # 0.610^3/ul Monocytes % 14.0% Neutrophils # 2.910^3/ul Neutrophils % 68.5% Nucleated Red Blood Cells # 0.010^3/ul Nucleated Red Blood Cells % 0.0/100WBC Platelet Count 86479^3/UL Potassium Level 4.1mmol/L Prothrombin Time 16.0Sec Prothrombin Time Ratio 1.3 Red Blood Count 3.9510^6/ul Red Cell Distribution Width 19.9% Sodium Level 140mmol/L Total Bilirubin 0.1mg/dl Total Protein 7.4g/dl Troponin I 0.017ng/ml White Blood Count 4.210^3/ul Free Thyroxine 1.44ng/dl Test 11/17/16 10:26 Lactic Acid Level 1.3mmol/L Current Medications Medications (Trade) Dose Ordered Sig/Madonna Route PRN Reason Start Time Stop Time Status Last Admin Dose Admin Cefepime HCl 50 ml @ 100 mls/hr ONCE ONCE IVPB 11/17/16 07:00 11/17/16 07:29 DC 11/17/16 06:54 Vancomycin HCl (Vancocin) 250 ml @ 125 mls/hr ONCE IVPB 11/17/16 07:00 11/17/16 08:59 DC 11/17/16 07:26 Albuterol (Proventil 0.5% (Neb)) 10 mg ONCE STAT INH 11/17/16 06:38 11/17/16 06:47 DC 11/17/16 07:21 Lorazepam (Ativan) 1 mg ONCE ONCE IV 11/17/16 09:00 11/17/16 09:01 DC 11/17/16 08:48 IV Flush (NS 3 ml) 3 ml PER PROTOCOL IV 11/17/16 11:00 Ondansetron HCl (Zofran Inj) 4 mg Q6H PRN IV NAUSEA AND/OR VOMITING 11/17/16 11:00 Acetaminophen (Tylenol Tab) 650 mg Q6H PRN PO PAIN LEVEL 1-3 OR FEVER 11/17/16 11:00 11/17/16 16:21 DC Acetaminophen/ Hydrocodone Bitart ([place]uman (5/325)) 1 tab Q6H PRN PO MODERATE PAIN LEVEL 4-6 11/17/16 11:00 Morphine Sulfate (morphine) 2 mg Q4H PRN IV SEVERE PAIN LEVEL 7-10 11/17/16 11:00 Docusate Sodium (Colace) 100 mg Q12H PRN PO CONSTIPATION 11/17/16 11:00 Magnesium Hydroxide (Milk Of Mag) 30 ml DAILY PRN PO CONSTIPATION 11/17/16 11:00 Sodium Biphosphate/ Sodium Phosphate (Fleet Enema) 133 ml DAILY PRN [place] CONSTIPATION 11/17/16 11:00 Lorazepam (Ativan) 0.5 mg Q6H PRN IV ANXIETY 11/17/16 11:00 11/17/16 22:53 Albuterol/ Ipratropium (Duoneb) 3 ml Q4H RESP THERAPY PRN HHN SHORTNESS OF BREATH 11/17/16 11:00 11/17/16 13:03 Hydralazine HCl (Apresoline) 10 mg Q6H PRN IV ELEVATED BLOOD PRESSURE 11/17/16 11:00 Nitroglycerin (Nitroglycerin (Sl Tab) 0.4 Mg) 1 tab Q5M PRN SL ANGINA 11/17/16 11:00 Acetaminophen (Tylenol Tab) 650 mg Q6H PRN PO PAIN LEVEL 1-5 11/17/16 11:00 Lorazepam (Ativan) 0.5 mg Q6 PRN PO ANXIETY 11/17/16 11:00 11/17/16 12:31 Simethicone (Mylicon) 80 mg Q6H PRN PO INTESTINAL SPASMS/CRAMPING 11/17/16 11:00 Zolpidem Tartrate (Ambien) 10 mg QHS PRN PO INSOMNIA 11/17/16 11:00 Miscellaneous Information 1 mg PRN IJ 11/17/16 11:00 11/17/16 12:31 DC Al Hydrox/Mg Hydrox/Simethicone (Mag-Al Plus) 10 ml Q6 PRN PO DISTENSION/GAS/BLOATING 11/17/16 11:00 Vancomycin HCl (Vanco Iv Per Pharmacy) PER PHARMACY DOSING NOTE XX 11/17/16 11:30 Miscellaneous Information (* Miscellaneous Pharmacy Order) HYPOGLYCEMIA PROTOCOL w... ONCE ONCE XX 11/17/16 11:00 11/17/16 11:12 DC Miscellaneous Information (* Miscellaneous Pharmacy Order) Discontinue Glyburide, Glipizide,... ONCE ONCE XX 11/17/16 11:00 11/17/16 11:13 DC Miscellaneous Information (* Miscellaneous Pharmacy Order) Discontinue all previ... ONCE ONCE XX 11/17/16 11:00 11/17/16 11:13 DC Miscellaneous Information 1 ea NOTE XX 11/17/16 11:30 Glucose (Glutose) 15 gm Q15M PRN PO DECREASED GLUCOSE 11/17/16 11:30 Glucose (Glutose) 22.5 gm Q15M PRN PO DECREASED GLUCOSE 11/17/16 11:30 Dextrose (D50w Syringe) 25 ml Q15M PRN IV DECREASED GLUCOSE 11/17/16 11:30 Dextrose (D50w Syringe) 50 ml Q15M PRN IV DECREASED GLUCOSE 11/17/16 11:30 Glucagon (Glucagen) 1 mg Q15M PRN IM DECREASED GLUCOSE 11/17/16 11:30 Glucose (Glutose) 15 gm Q15M PRN BUCCAL DECREASED GLUCOSE 11/17/16 11:30 Procedures/MDM IV line was established patient was placed on radiographer cardiac catheterization rhythm strip revealed a narrow complex rhythm at about 80 bpm with upright P and T waves. Patient was afebrile. Blood and urine cultures have been ordered results are pending I will follow-up. EKG performed, read by me revealed an atrial fibrillation at 81 bpm, normal axis , narrow QRS complex, no concerning ST elevations or depressions noted. One view chest x-ray performed, read by me revealed a right lower lobe infiltrate, positive bilateral pulmonary congestion bilaterally as well, cardiomegaly, no pneumothorax, no end of the diaphragm. I administered albuterol 10 mg via nebulizer, cefepime 1 g IV, vancomycin 1 g IV. CBC was unremarkable, electrolytes revealed a BUN/creatinine of 45/2.2, liver function tests were unremarkable, troponin was negative. Patient will be admitted to telemetry setting for continued medical management and hemodialysis per Departure Diagnosis: Primary Impression: Pneumonia Qualified Code: J18.9 - Pneumonia of right lower lobe due to infectious organism Additional Impressions: End stage kidney disease Fluid overload Qualified Code: E87.70 - Hypervolemia, unspecified hypervolemia type Condition: ADRIAN Dickson MD Nov 17, 2016 07:59
[2016-11-17] MEDS ORDERED: LORAZEPAM 2 MG INJ IV ONE (09:00)
[2016-11-17] MEDS ORDERED: NA PHOSPHATE/BIPHOS 133 ML ENEMA PR PRN (11:00)
[2016-11-17] MEDS ORDERED: GLUCAGON HUMAN RECOMBINANT 1 MG IJ SCH (11:00)
[2016-11-17] MEDS ORDERED: HYDROCODONE/APAP (5/325) TAB PO PRN (11:00)
[2016-11-17] MEDS ORDERED: ZOLPIDEM 5 MG TAB PO PRN (11:00)
[2016-11-17] MEDS ORDERED: HYPOGLYCEMIA PROTOCOL when Glucose is <70 mg/dL or symptomatic <90 mg/dL XX ONE (11:00)
[2016-11-17] MEDS ORDERED: AL HYDROX/MG HYDROX/SIMETH 30 ML CUP PO PRN (11:00)
[2016-11-17] MEDS ORDERED: NACL 0.9% 3 ML SYG IV SCH (11:00)
[2016-11-17] MEDS ORDERED: ACETAMINOPHEN 325 MG TAB PO PRN ×2 (11:00)
[2016-11-17] MEDS ORDERED: MAGNESIUM HYDROXIDE 30ML CUP PO PRN (11:00)
[2016-11-17] MEDS ORDERED: NITROGLYCERIN (SL) 0.4 MG TAB SL PRN (11:00)
[2016-11-17] MEDS ORDERED: ONDANSETRON 4 MG INJ IV PRN (11:00)
[2016-11-17] MEDS ORDERED: Discontinue Glyburide, Glipizide, and/or Glimepiride prior to starting Insulin XX ONE (11:00)
[2016-11-17] MEDS ORDERED: hydrALAzine 20 MG INJ IV PRN (11:00)
[2016-11-17] MEDS ORDERED: [UNRECOGNIZED DRUG - OTHER] IJ SCH (11:00)
[2016-11-17] MEDS ORDERED: DOCUSATE SODIUM 100 MG CAP PO PRN (11:00)
[2016-11-17] MEDS ORDERED: morphine 2 MG INJ IV PRN (11:00)
[2016-11-17] MEDS ORDERED: ALBU2.5V3 NEB (11:05)
[2016-11-17] MEDS ORDERED: BEN25 PO (11:06)
[2016-11-17] MEDS ORDERED: BUME1TAB18 PO (11:07)
[2016-11-17] MEDS ORDERED: DOCU-159 PO (11:08)
[2016-11-17] MEDS ORDERED: CRAN425C PO (11:08)
[2016-11-17] MEDS ORDERED: DULR PR (11:09)
[2016-11-17] MEDS ORDERED: APIX2.5T PO (11:09)
[2016-11-17] MEDS ORDERED: LEVEM SC (11:11)
[2016-11-17] MEDS ORDERED: MULTI PO (11:13)
[2016-11-17] MEDS ORDERED: HYDR-906 PO (11:13)
[2016-11-17] MEDS ORDERED: SEVE800T7 PO (11:14)
[2016-11-17] MEDS ORDERED: LINA5TAB PO (11:29)
[2016-11-17] MEDS ORDERED: GLUCOSE GEL 15 GRAM TUBE PO PRN ×2 (11:30)
[2016-11-17] MEDS ORDERED: GLUCAGON 1 MG INJ IM PRN (11:30)
[2016-11-17] MEDS ORDERED: VANCOMYCIN IV PER PHARMACY XX SCH (11:30)
[2016-11-17] MEDS ORDERED: DEXTROSE 50% 50 ML SYRINGE IV PRN (11:30)
[2016-11-17] MEDS ORDERED: GLUCOSE GEL 15 GRAM TUBE BUCCAL PRN (11:30)
[2016-11-17] MEDS ORDERED: CHOL100062 PO (11:31)
[2016-11-17] MEDS ORDERED: ZINC220T PO (11:33)
--- NOTE | 2016-11-17 11:38 | CONS ---
Date/Time of Note Date/Time of Note DATE: 11/17/16 TIME: 11:33 Assessment/Plan Assessment/Plan Additional Assessment/Plan 61 yo Male with 1) SOB 2nd to PNA and CHF 2) Volume Overload 3) ESRD on HD MWF 4) Anemia, Chronic, CKD 5) Mineral Bone Disease, CKD Dry UF ordered for today Orders given to [facility] Awaiting bed placement Pt S/p HD yesterday at dialysis Center approx 4.2 L removed Will cont HD MWF schedule and as needed, Please renal dose all Rx to ESRD Repeat CXR in 24 -48 hours Renal Diet, Resume Phos binder Will cont to closely follow along with you Thank you for the opportunity to participate in the care of Mr Fabian. Consultation Date/Type/Reason Admit Date/Time Date of Consultation: Nov 17, 2016 Type of Consultation: Nephrology Reason for Consultation ESRD, Volume Overload Referring Provider: FELIX SCOTT Hx of Present Illness 61 yo Male with Hx of Recent healthcare associated pneumonia treated at [facility] and [facility], left toe osteomyelitis, end-stage renal disease hypertension, diabetes mellitus, depression, obesity, atrial fibrillation, congestive heart failure, Hx of Perma-cath presented with worsening cough and congestion, shortness of breath despite 4.2 liters removal during HD yesterday at [facility]. Nephrology consulted for ESRD. Constitutional: requiring O2 Respiratory: cough, shortness of breath Cardiovascular: No chest pain Gastrointestinal: other (swelling) Past Medical History Medical History: congestive heart failure, hypertension, renal disease Past Surgical History Past Surgical Hx: other (Perma Cath) Family History Significant Family History: no pertinent family hx Social History Alcohol Use: none Smoking Status: Unknown if ever smoked Drug Use: none Exam/Review of Systems Vital Signs Vitals Vital Signs Date Time Temp Pulse Resp B/P Pulse Ox O2 Delivery O2 Flow Rate FiO2 11/17/16 09:59 99 20 139/61 95 Nasal Cannula 4.0 11/17/16 06:13 99.4 Exam Constitutional: alert, distress, oriented Psych: No anxiety Head: atraumatic, normocephalic Eyes: EOMI, PERRL, nl conjunctiva ENMT: mucosa pink and moist Neck: jvd Respiratory: congested cough, crackles/rales, diminished breath sounds, other ( Chest PC) Cardiovascular: edema, other (Tachycardia) Gastrointestinal: ascites, distended, soft, No rebound or guarding Extremities: pitting pedal edema 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: lethargic, nl mental status Skin: other (Dressing/wrapped B/l LEs) Results Result Diagram: 11/17/16 0630 11/17/16 0630 Results 24 hrs Laboratory Tests Test 11/17/16 05:50 11/17/16 06:30 11/17/16 10:26 Lactic Acid Level 1.1 1.0 1.3 Activated Partial Thromboplast Time 36.3 H Alanine Aminotransferase (ALT/SGPT) 21 Albumin 3.5 Albumin/Globulin Ratio 0.89 Alkaline Phosphatase 158 H Anion Gap 17 H Aspartate Amino Transf (AST/SGOT) 33 Basophils # 0.0 Basophils % 0.7 Blood Urea Nitrogen 37 H Calcium Level 8.5 Carbon Dioxide Level 31 Chloride Level 96 L Creatinine 1.98 H Direct Bilirubin 0.00 Eosinophils # 0.3 Eosinophils % 7.6 H Globulin 3.90 H Glucose Level 87 Hematocrit 32.7 L Hemoglobin 9.8 L INR International Normalized Ratio 1.27 Indirect Bilirubin 0.1 Lipase 219 Lymphocytes # 0.4 L Lymphocytes % 9.0 L Mean Corpuscular Hemoglobin 24.8 L Mean Corpuscular Hemoglobin Concent 30.0 L Mean Corpuscular Volume 82.8 Mean Platelet Volume 10.0 # Monocytes # 0.6 Monocytes % 14.0 H Neutrophils # 2.9 Neutrophils % 68.5 Nucleated Red Blood Cells # 0.0 Nucleated Red Blood Cells % 0.0 Platelet Count 138 L Potassium Level 4.1 Prothrombin Time 16.0 H Prothrombin Time Ratio 1.3 Red Blood Count 3.95 L Red Cell Distribution Width 19.9 H Sodium Level 140 Total Bilirubin 0.1 L Total Protein 7.4 Troponin I 0.017 White Blood Count 4.2 #L Medications Medications Current Medications Ondansetron HCl (Zofran Inj) 4 mg Q6H PRN IV NAUSEA AND/OR VOMITING; Start 11/17 at 11:00; Status UNV Acetaminophen (Tylenol Tab) 650 mg Q6H PRN PO PAIN LEVEL 1-3 OR FEVER; Start at 11:00 Acetaminophen/ Hydrocodone Bitart ([place] (5/325)) 1 tab Q6H PRN PO MODERATE PAIN LEVEL 4-6; Start 11/17/16 at 11:00 Morphine Sulfate (morphine) 2 mg Q4H PRN IV SEVERE PAIN LEVEL 7-10; Start at 11:00 Docusate Sodium (Colace) 100 mg Q12H PRN PO CONSTIPATION; Start 11/17/16 at 11: 00 Magnesium Hydroxide (Milk Of Mag) 30 ml DAILY PRN PO CONSTIPATION; Start at 11:00 Sodium Biphosphate/ Sodium Phosphate (Fleet Enema) 133 ml DAILY PRN [place] CONSTIPATION; Start 11/17/16 at 11:00 Heparin Sodium (Porcine) (Heparin (5000 Units/0.5 ml)) 5,000 unit Q12 SC ; Start 11/17/16 at 21:00; Status UNV Lorazepam 0.5 mg 0.5 mg Q6H PRN IV ANXIETY; Start 11/17/16 at 11:00 Levofloxacin/ Dextrose (Levaquin 750 Mg/ D5W 150 ml (Pmx)) 150 ml @ 100 mls/hr DAILY IVPB ; Start 11/18/16 at 09:00; Status UNV Hydralazine HCl (Apresoline) 10 mg Q6H PRN IV ELEVATED BLOOD PRESSURE; Start at 11:00 Nitroglycerin (Nitroglycerin (Sl Tab) 0.4 Mg) 1 tab Q5M PRN SL ANGINA; Start at 11:00 Acetaminophen (Tylenol Tab) 650 mg Q6H PRN PO PAIN LEVEL 1-5; Start 11/17/16 at 11:00 Allopurinol (Zyloprim) 100 mg DAILY PO ; Start 11/18/16 at 09:00; Status UNV Ascorbic Acid (Vitamin C) 500 mg DAILY PO ; Start 11/18/16 at 09:00; Status UNV Aspirin (Halfprin) 81 mg DAILY PO ; Start 11/18/16 at 09:00; Status UNV Atorvastatin Calcium (Lipitor) 10 mg QHS PO ; Start 11/17/16 at 21:00; Status UNV Bumetanide (Bumex) 1 mg 06,14 PO ; Start 11/17/16 at 14:00 Cholecalciferol (Vitamin D) 1,000 unit DAILY PO ; Start 11/18/16 at 09:00; Status UNV Famotidine (Pepcid) 20 mg BID PO ; Start 11/17/16 at 21:00; Status UNV Ferrous Sulfate (Ferrous Sulfate (Ec)) 325 mg BID PO ; Start 11/17/16 at 21:00; Status UNV Insulin Glargine (Lantus) 15 unit QHS SC ; Start 11/17/16 at 21:00; Status UNV Lactobacillus Acidoph/Bulgaricus (Floranex) 1 tab TID PO ; Start 11/17/16 at 13: 00 Lorazepam (Ativan) 0.5 mg Q6 PRN PO ANXIETY; Start 11/17/16 at 11:00 Metoprolol Tartrate (Lopressor) 12.5 mg BID PO ; Start 11/17/16 at 21:00; Status UNV Fish Oil (Fish Oil) 1,000 mg DAILY PO ; Start 11/18/16 at 09:00; Status UNV Potassium Chloride (Klor-Con 20) 40 meq DAILY PO ; Start 11/18/16 at 09:00; Status UNV Pregabalin (Lyrica) 50 mg TID PO ; Start 11/17/16 at 13:00; Status UNV Pyridoxine HCl (Vitamin B6) 100 mg DAILY PO ; Start 11/18/16 at 09:00; Status UNV Simethicone (Mylicon) 80 mg Q6H PRN PO INTESTINAL SPASMS/CRAMPING; Start at 11:00 Vitamin E (Vitamin E) 400 units DAILY PO ; Start 11/18/16 at 09:00; Status UNV Zolpidem Tartrate (Ambien) 10 mg QHS PRN PO INSOMNIA; Start 11/17/16 at 11:00 Miscellaneous Information 20 mg DAILY PO ; Start 11/18/16 at 09:00; Status UNV Miscellaneous Information 1 mg PRN IJ ; Start 11/17/16 at 11:00; Status UNV Miscellaneous Information 10 ml Q6 PRN PO DISTENSION/GAS/BLOATING; Start at 11:00; Status UNV Miscellaneous Information 1 each TID PO ; Start 11/17/16 at 13:00; Status UNV Vancomycin HCl (Vanco Iv Per Pharmacy) PER PHARMACY DOSING NOTE XX ; Start at 11:30 Insulin Aspart (Novolog Insulin Pen) NOVOLOG *MILD* ALGORI... Q4 SC ; Start 11/17 at 13:00 Miscellaneous Information 1 ea NOTE XX ; Start 11/17/16 at 11:30 Glucose (Glutose) 15 gm Q15M PRN PO DECREASED GLUCOSE; Start 11/17/16 at 11:30 Glucose (Glutose) 22.5 gm Q15M PRN PO DECREASED GLUCOSE; Start 11/17/16 at 11:30 Dextrose (D50w Syringe) 25 ml Q15M PRN IV DECREASED GLUCOSE; Start 11/17/16 at 11:30 Dextrose (D50w Syringe) 50 ml Q15M PRN IV DECREASED GLUCOSE; Start 11/17/16 at 11:30 Glucagon (Glucagen) 1 mg Q15M PRN IM DECREASED GLUCOSE; Start 11/17/16 at 11:30 Glucose (Glutose) 15 gm Q15M PRN BUCCAL DECREASED GLUCOSE; Start 11/17/16 at 11: 30 Procedures Procedures PROCEDURE: Chest. CLINICAL INDICATION: Chest pain. TECHNIQUE: Single frontal view of the chest was obtained. COMPARISON: 10/17/2016. FINDINGS: There is a right-sided Perma-Cath extending to the SVC/RA junction. The cardiac silhouette is enlarged. The aortic arch is unremarkable. There is mild central vascular congestion. There is right basilar patchy infiltrate. There is no pleural effusion. There is no pneumothorax. IMPRESSION: Moderate cardiomegaly and mild central vascular congestion, slightly increased. Right basilar patchy infiltrates, slightly increased. .Bennett Hurt MD, Date Time Electronically viewed and signed by .Bennett Hurt MD, on 11/17/2016 07:52 .T/ DYAN FRANKLIN MD Nov 17, 2016 11:38
[2016-11-17] MEDS: LORAZEPAM 0.5 MG TAB PO PRN (12:31)
[2016-11-17] MEDS ORDERED: LEVOFLOXACIN 750MG/D5W (PMX) 150 ML IVPB SCH (12:35)
[2016-11-17] MEDS ORDERED: VANCOMYCIN 1 GM in NS 250 ML IVPB SCH (13:00)
[2016-11-17] MEDS: INSULIN ASPART [NOVOLOG] 3 ML PEN SC SCH ×3 (13:00→20:31)
[2016-11-17] MEDS: ALBUTEROL/IPRATROPIUM (NEB) 3 ML AMP HHN PRN (13:03)
[2016-11-17] MEDS: LACTOBACILLUS CHEW TAB PO SCH ×2 (13:55→20:12)
[2016-11-17] MEDS: PREGABALIN 25 MG CAP PO SCH ×2 (13:56→20:18)
[2016-11-17] MEDS ORDERED: BUMETANIDE 1 MG TAB PO SCH (14:00)
[2016-11-17] MEDS ORDERED: CEPASTAT LOZENGE MT PRN (16:00)
[2016-11-17] MEDS ORDERED: GUAIFENESIN 20 MG/ML 5ML CUP PO PRN (16:00)
[2016-11-17] MEDS ORDERED: ALBUTEROL 0.083% (NEB) 2.5 MG/3 ML AMP NEB PRN (16:30)
[2016-11-17] MEDS ORDERED: DIPHENHYDRAMINE 25 MG CAP PO PRN (16:30)
[2016-11-17] MEDS ORDERED: BISACODYL 10 MG SUPP PR PRN (16:30)
--- NOTE | 2016-11-17 17:04 | HP ---
DATE OF ADMISSION: 11/17/2016 CHIEF COMPLAINT: Coughing and shortness of breath. HISTORY OF PRESENT ILLNESS: A 61-year-old male with a past medical history of type 2 diabetes, prio r osteomyelitis, essential hypertension, atrial fibrillation, CHF, diastolic dysfunction, gout, morb id obesity, end-stage renal disease, on dialysis, chronic respiratory failure, peripheral vascular d isease, questionable atrial fibrillation, and questionable hypertension, who was sent over today fro an outside facility because he was having a cough for the last 1 week. Per , the patient has been actually been staying at some kind of nursing facility where he was being treated for osteomyel itis. He had been having coughing over there for the last 2 to 3 weeks, getting progressively worse , and was brought in. When he came to the ER today he had a chest x-ray performed that shows bilate ral infiltrates, early pneumonia, most likely patchy infiltrates. The patient had been having a productive cough. No chest pain, no significant shortness of breath, no diarrhea, no constipatio n, no upper or lower GI bleeding, no fevers or chills. The patient was last here at our [facility] 08/13/2016 to 09/25/2016 for great toe osteomyelitis and also respiratory failure at that time. PAST MEDICAL HISTORY: As above. ALLERGIES: NO KNOWN DRUG ALLERGIES. HOME MEDICATIONS: 1. Benadryl 25 mg b.i.d. p.r.n. 2. Albuterol nebulizer q.6h. p.r.n. 3. Eliquis 5 mg b.i.d. 4. Ferrous sulfate 325 mg b.i.d. 5. Atorvastatin 10 mg at bedtime. 6. Lopressor 12.5 mg b.i.d. 7. Fish oil 1 mg p.o. t.i.d. 8. Tylenol 650 q.6 p.r.n. 9. Fluoxetine 20 mg daily. 10. [place] 5/325 q.6h. p.r.n. 11. Ativan 0.5 mg p.o. q. 6h. p.r.n. 12. Lyrica 50 mg t.i.d. 13. Ambien 10 mg at bedtime p.r.n. 14. Bumex 1 mg p.o. b.i.d. 15. Renvela 0.8 grams p.o. with meals. 16. Zinc sulfate 220 mg daily. 17. Dulcolax 10 mg per rectal q.24 p.r.n. 18. Colace 200 mg at bedtime. 19. Pepcid 20 mg b.i.d. 20. Lactobacillus 1 tab p.o. t.i.d. 21. Milk of Magnesia q.6 p.r.n. 22. Simethicone 80 mg q.6 p.r.n. 23. Levemir 7 units at bedtime. 24. Tradjenta 5 mg t.i.d. 25. Vitamin B 500 mg daily. 26. Vitamin D 1000 mg daily. 27. Multivitamin 1 tab daily. 28. Vitamin B6 100 mg daily. 29. Vitamin E 400 mg daily. 30. Allopurinol 100 mg daily. 31. Cranberry 425 mg daily. SOCIAL HISTORY: Negative for smoking, drinking, or IV drug abuse. He drinks 1 time a month. PAST SURGICAL HISTORY: Repair for osteomyelitis. Rotator cuff repair in the past. FAMILY HISTORY: Noncontributory. PHYSICAL EXAMINATION: VITAL SIGNS: Temperature max 99.4, pulse 55, respirations 19 to 31, blood pressure 138/83, saturati ng at 93% to 95% on Ventimask. GENERAL: The patient is lying in bed, getting dialysis, appears in mild respiratory distress, using accessory muscles. Slightly tachypneic. at the bedside. HEENT: Pupils are equal, round, react to light. Extraocular muscles are intact. NECK: Supple. No thyromegaly. LUNGS: Distant breath sounds bilaterally. CARDIOVASCULAR: S1, S2 heard. No rubs or gallops. ABDOMEN: Obese, but otherwise nontender, nondistended. No rebound or guarding. MUSCULOSKELETAL: No lower extremity edema bilaterally. NEUROLOGIC: No focal deficits. LABORATORIES: Sodium 140, potassium 4.1, chloride 96, CO2 31, BUN 37, creatinine 1.0, glucose 97. LFTs are normal. WBC 4.2, hemoglobin 9.8, hematocrit 32.7, platelets of 138. Again, chest x-ray results as mentioned. There is moderate cardiomegaly and mild central vascular c ongestion, slightly increased. Right basilar patchy infiltrates, slightly increased. ASSESSMENT AND PLAN: A 61-year-old male with a history of type 2 diabetes, peripheral vascular dise ase, prior respiratory insufficiency, end-stage renal disease, on dialysis, who presents with a coug h for 1 week and signs of pneumonia. 1. Cough. Again, the patient on his last admission about 2 months ago was here for hypercarbic hyp oxic respiratory failure. Presently he is tachypneic. Will get a pulmonary consult. Will put him on broad-spectrum antibiotics to cover for healthcare-associated pneumonia with cefepime and vancomy binta. Will put him on prophylaxis for flu and check influenza A and B tests, plus Tamiflu 75 mg ailin y and DuoNeb p.r.n. as well. 2. Type 2 diabetes. Will check an A1c and put him on sliding scale insulin. 3. History of gout. Continue allopurinol. 4. History of hypertension. Again, blood pressure is presently stable. He will be on hydralazine p.r.n. systolic greater than 180. 5. History of end-stage renal disease. On dialysis. Will get a renal consult. Continue Renvela. Monitor BUN and creatinine levels daily. 6. History of depression. He is on Ativan p.r.n. 7. Pulmonary hypertension. Continue to monitor for now. Follow up pulmonary recommendations. 8. Gastrointestinal prophylaxis. He will be on PPI. 9. Deep venous thrombosis prophylaxis. Will be on Eliquis. 10. Prior history of atrial fibrillation. Continue Eliquis as well, presently rate controlled. 11. Prior history of osteomyelitis. Will get an ID consult. Continue broad-spectrum antibiotics a s well. Dictated By: FELIX ZAMORA Conf#: [id number] DID#: [id number]
--- NOTE | 2016-11-17 17:40 | CONS ---
DATE OF ADMISSION: 11/17/2016 DATE OF CONSULTATION: 11/17/2016 TYPE OF CONSULTATION: Infectious Disease. REASON FOR CONSULTATION: Antibiotic management. HISTORY OF PRESENT ILLNESS: Jamin Fabian is a 61-year-old male with recent healthcare-associated pn eumonia treated at [facility], who comes in now with cough and shortnes s of breath. His past problems include: 1. Left toe osteomyelitis. 2. End-stage renal disease on hemodialysis. 3. Hypertension. 4. Adult-onset diabetes mellitus. 5. Depression. 6. Obesity. 7. Atrial fibrillation. 8. Coronary artery disease with congestive heart failure. 9. History of PermCath placement. Acutely, the patient comes in with worsening cough and congestion with shortness of breath. He had 4.2 liters of fluid removed during hemodialysis at [facility] dialysis center yesterday. H e still requires O2. On admission, his white count was 4.2, H and H 9.8 and 32.7, platelet count 13 8,000. BUN and creatinine 37/1.98, glucose of 87. Chest x-ray shows moderate cardiomegaly, mild ce ntral venous congestion, slightly increased right basilar patchy infiltrates. There is a PermCath extending to the superior vena cava and the right atrial junction on the right side. PAST MEDICAL HISTORY: Operations as outlined. FAMILY HISTORY: Noncontributory. SOCIAL HISTORY: He does not smoke, drink or abuse drugs. ALLERGIES: NONE TO PENICILLIN, SULFA OR FOODS. MEDICATIONS: Per chart. REVIEW OF SYSTEMS: As per HPI. PHYSICAL EXAMINATION: GENERAL: The patient is a well-developed, well-nourished, actually chronically ill-appearing 61-yea r-old male who is alert, responsive, short of breath, in no acute distress. VITAL SIGNS: Stable. Temperature max 99.4. SKIN: Without generalized rash. HEENT: Within normal limits. NECK: Supple. LYMPH NODES: None palpable. CHEST: Decreased breath sounds at the bases with scattered rales and diminished breath sounds. HEART: Without murmur or gallop. He is tachycardic. ABDOMEN: Soft, nontender. It is distended. He has some ascites. There is no rebound or guarding. EXTREMITIES: Without cyanosis or clubbing. He has 1+ pitting edema. RECTAL AND GENITAL: Deferred. NEUROLOGIC: He is lethargic but there are no focal neurological abnormalities. PLAN: The patient received vancomycin. He also received Levaquin and he is currently on cefepime. I would concur with cefepime 1 gram q.24h. The patient seen by Dr. Flores in addition to Dr. Vivar . He had blood cultures done, urine culture. We will do a sputum culture if it was not done yet. I will dictate my findings to the hospitalist and Dr. Vivar. Dictated By: DONAVAN BRITTON MD, JD/GREGORY Conf#: [id number] DID#: [id number]
--- NOTE | 2016-11-17 17:57 | CONS ---
DATE OF ADMISSION: 11/17/2016 DATE OF CONSULTATION: 11/17/2016 TYPE OF CONSULTATION: Pulmonary PRIMARY PHYSICIAN: Felecia Scott MD REASON FOR CONSULTATION: Respiratory insufficiency. HISTORY OF PRESENT ILLNESS: Briefly, Mr. Fabian is a 61-year-old gentleman with numerous medical prob lems including type 2 diabetes, history of osteomyelitis, status post prolonged hospitalization, acu te on chronic kidney disease, congestive heart failure, hypertension, atrial fibrillation, morbid ob esity, peripheral vascular disease, who is status post a prolonged hospitalization recently at [facility] from 08/13/2016 through 09/25/2016, during which time he was intubated on mechanical ventilation due to volume overload resulting in hypoxemic respiratory failure. Addit ionally, he had treatment for osteomyelitis and more recently Mr. Fabian has been treated at [facility] as well as undergoing hemodialysis yesterday at [facility], where he had large volume ultrafiltration. Despite this, he presents with increasing shortness of breath and co ugh. PAST MEDICAL HISTORY: As noted above in history of present illness. In addition, history of depres eileen is noted as well as history of anemia, end-stage renal disease on hemodialysis PAST SURGICAL HISTORY: History of PermCath placement. FAMILY HISTORY: Noncontributory. SOCIAL HISTORY: No tobacco, alcohol or illicit drug use. FAMILY HISTORY: Noncontributory. REVIEW OF SYSTEMS: As noted in the HPI. PHYSICAL EXAMINATION: GENERAL: Currently, he appears confused with increased work of breathing and accessory muscle use. VITAL SIGNS: Heart rate is 102, blood pressure 138/78, oxygen saturation is 97% on 15 liters nonreb reather. HEENT: Normocephalic. NECK: Accessory muscle use with recruitment of sternocleidomastoid noted. No thyromegaly. Jugular venous pressures are distended. CARDIOVASCULAR: Irregularly irregular, S1, S2. No murmurs, rubs, or gallops. CHEST: Diffuse crackles at the bases bilaterally. ABDOMEN: Obese, nontender. EXTREMITIES: There is 1+ lower extremity edema. LABORATORY DATA: WBC is 4.2, hemoglobin is 9.8. BUN is 37, creatinine is 1.98. Alkaline phosphata se is 158. IMAGING: Chest x-ray shows cardiomegaly, bilateral reticular opacities mostly consistent with pulmo nary venous congestion; however, asymmetrical right lower lung field airspace disease, concerning fo r localized pneumonia in the right lower lung field. IMPRESSION: Hypoxemic and possibly hypercapnic respiratory insufficiency in a patient with numerous medical problems including volume overload, history of possible chronic obstructive pulmonary disea se with CO2 retention, who is now in need of noninvasive positive-pressure ventilation. RECOMMENDATIONS: 1. Immediate transfer to the ICU. 2. Initiation of BiPAP 15/5 with oxygen to be titrated to keep saturations 88% to 92%. 3. IV antibiotics to cover for healthcare-associated pathogens. 4. Check a flu swab. 5. Follow serial lactates. 6. Continue hemodialysis with ultrafiltration. 7. Check cardiac enzymes and a 12-lead EKG. 8. At this point, I do not see a real need for systemic corticosteroids; however, based on patient' s clinical response to the aforementioned interventions, we may consider their use given the potenti al for coexistence of a COPD exacerbation. 9. DVT and GI prophylaxis. 10. Very low threshold for intubation. We will follow clinical exam and serial ABGs. Dictated By: GEOVANNA SANTACRUZ MD NK/GREGORY Conf#: [id number] DID#: [id number] CC: FELIX SCOTT;*EndCC*
[2016-11-17 18:22] LABS: B-TYPE NATRIURETIC PEPTIDE 28700 PG/ML (0-125)
[2016-11-17 18:28] LABS: TROPONIN-I < 0.012 ng/ml (0.00-0.12)
[2016-11-17 18:31] LABS: AADO2 Arterial 561.1 mmHg (7.0-24.0); Allen Test ACCEPTAB; Arterial Base Excess -4.3 mmol/L (-3.0-3); Arterial COHb 0.9 % (0.0-3.0); Arterial Fraction of Oxyhgb 90.7 % (93.0-99.0); Arterial HCO3 25.7 mmol/L (22.0-26.0); Arterial MetHb 0.4 % (0.0-1.5); Arterial Total Hemglobin 12.2 g/dl (12.0-18.0); MODE MASK - NRB
[2016-11-17 20:11] LABS: AADO2 Arterial 463.7 mmHg (7.0-24.0); Allen Test ACCEPTAB; Arterial Base Excess -2.3 mmol/L (-3.0-3); Arterial COHb 0.4 % (0.0-3.0); Arterial Fraction of Oxyhgb 98.3 % (93.0-99.0); Arterial MetHb 0.5 % (0.0-1.5); Arterial Total Hemglobin 11.6 g/dl (12.0-18.0); Blood Gas IEPAP 15/5
[2016-11-17] MEDS: BUMETANIDE 1 MG TAB PO SCH (20:12)
[2016-11-17] MEDS: FAMOTIDINE 20 MG TAB PO SCH (20:13)
[2016-11-17] MEDS: FERROUS SULFATE (EC) 325 MG TAB PO SCH (20:13)
[2016-11-17] MEDS: METOPROLOL 25 MG TAB PO SCH (20:13)
[2016-11-17] MEDS: ATORVASTATIN 10 MG TAB PO SCH (20:13)
[2016-11-17] MEDS: OSELTAMIVIR 30 MG CAP PO SCH (20:18)
[2016-11-17] MEDS ORDERED: APIXABAN 5 MG TABLET PO SCH (21:00)
[2016-11-17] MEDS ORDERED: INSULIN DETEMIR 7 UNIT SC SCH (21:00)
[2016-11-17] MEDS ORDERED: HEPARIN 5,000 UNIT/0.5 ML SYG SC SCH (21:00)
[2016-11-17] MEDS ORDERED: INSULIN GLARGINE [LANtus] 3 ML PEN SC SCH (21:00)
[2016-11-17] MEDS: LORAZEPAM 2 MG INJ IV PRN (22:53)
[2016-11-18] VITALS (48 sets, daily range): BP systolic 81–141; BP diastolic 45–118; PULSE 65–105; RESP 17–33
[2016-11-18] MEDS: INSULIN ASPART [NOVOLOG] 3 ML PEN SC SCH ×6 (01:00→21:00)
[2016-11-18 01:21] LABS: AADO2 Arterial 409.8 mmHg (7.0-24.0); Allen Test ACCEPTAB; Arterial Base Excess 1.4 mmol/L (-3.0-3); Arterial COHb 0.2 % (0.0-3.0); Arterial HCO3 28.8 mmol/L (22.0-26.0); Arterial MetHb 0.2 % (0.0-1.5); Arterial Total Hemglobin 10.8 g/dl (12.0-18.0); Blood Gas IEPAP 15/5
[2016-11-18 04:59] LABS: ADD SCAN DIFF NO
[2016-11-18 05:16] LABS: ABNORMAL IP MESSAGE 1; HEMATOCRIT 32.5 % (42.0-52.0); HEMOGLOBIN 9.4 g/dl (14.0-18.0); MEAN CORPUSCULAR HEMOGLOBIN 24.6 pg (29.0-33.0); MEAN CORPUSCULAR HGB CONC 28.9 g/dl (32.0-37.0); MEAN CORPUSCULAR VOLUME 85.1 fl (82.0-101.0); MEAN PLATELET VOLUME 9.7 fl (7.4-10.4); PLATELET COUNT 123 10^3/UL (140-415); RED BLOOD COUNT 3.82 10^6/ul (4.70-6.10); RED CELL DISTRIBUTION WIDTH 19.4 % (11.5-14.5); WHITE BLOOD COUNT 4.5 10^3/ul (4.8-10.8)
[2016-11-18 05:28] LABS: ALBUMIN 3.5 g/dl (3.3-4.9); POTASSIUM 4.7 mmol/L (3.5-5.1)
[2016-11-18 05:31] LABS: ALBUMIN/GLOBULIN RATIO 0.89; CREATININE 2.24 mg/dl (0.61-1.24); TOTAL PROTEIN 7.4 g/dl (6.1-8.1)
[2016-11-18 05:32] LABS: CALCIUM 8.2 mg/dl (8.4-10.2); CHOL/HDL RATIO 2.1 RATIO
[2016-11-18] MEDS: CEFEPIME 1GM/50 ML (PMX) 50 ML IVPB SCH (05:36)
[2016-11-18] MEDS: BUMETANIDE 1 MG TAB PO SCH ×2 (05:36→18:40)
[2016-11-18 06:00] LABS: THYROID STIMULATING HORMONE 2.27 MIU/L (0.465-4.680)
[2016-11-18] MEDS: LORAZEPAM 2 MG INJ IV PRN (07:27)
[2016-11-18] MEDS: SEVELAMER CARBONATE 0.8 GM PKT PO SCH ×3 (07:33→17:35)
[2016-11-18 07:56] LABS: AADO2 Arterial 539.3 mmHg (7.0-24.0); Arterial Base Excess -2.5 mmol/L (-3.0-3); Arterial COHb 0.4 % (0.0-3.0); Arterial Fraction of Oxyhgb 95.8 % (93.0-99.0); Arterial HCO3 27.2 mmol/L (22.0-26.0); Arterial MetHb 0.4 % (0.0-1.5); Arterial Total Hemglobin 11.7 g/dl (12.0-18.0); Blood Gas IEPAP 18/8; MODE MASK - BIPAP
[2016-11-18] MEDS: PYRIDOXINE 50 MG TAB PO SCH (09:00)
[2016-11-18] MEDS: CHOLECALCIFEROL 1,000 UNIT TAB PO SCH (09:00)
[2016-11-18] MEDS: ZINC SULFATE 220 MG CAP PO SCH (09:00)
[2016-11-18] MEDS ORDERED: ASCORBIC ACID 500 MG TAB PO SCH (09:00)
[2016-11-18] MEDS: POTASSIUM CHLORIDE (SR) 20 MEQ TAB PO SCH (09:00)
[2016-11-18] MEDS: LACTOBACILLUS CHEW TAB PO SCH ×3 (09:00→21:20)
[2016-11-18] MEDS ORDERED: CHOLECALCIFEROL 1,000 UNIT TAB PO SCH (09:00)
[2016-11-18] MEDS: FISH OIL 1,000 MG CAP PO SCH (09:00)
[2016-11-18] MEDS ORDERED: NON-FORMULARY/PATIENT OWN MED (Cranberry Extract (Cranberry) 425 MG) PO SCH (09:00)
[2016-11-18] MEDS: MULTIVITAMINS THERAPEUTIC TAB PO SCH (09:00)
[2016-11-18] MEDS: FLUOXETINE 20 MG CAP PO SCH (09:00)
[2016-11-18] MEDS: FERROUS SULFATE (EC) 325 MG TAB PO SCH (09:00)
[2016-11-18] MEDS: VITAMIN E 400 UNITS CAP PO SCH (09:00)
--- NOTE | 2016-11-18 09:17 | RADRPT ---
PROCEDURE: XR Chest. CLINICAL INDICATION: Shortness of breath. TECHNIQUE: A single portable view of the chest was obtained. COMPARISON: 11/17/2016 FINDINGS: A right-sided hemodialysis catheter is stable. The aorta is tortuous and atherosclerotic. The card iomediastinal silhouette is otherwise enlarged and is stable. Diffuse pulmonary vascular congestion is seen with likely underlying pulmonary edema and is stable. Bilateral pleural effusions are again noted and are unchanged. The soft tissues and osseous structures demonstrate benign age related sen escent changes. IMPRESSION: Radiographic findings of congestive heart failure again seen which is stable. RPTAT: [facility] Physician Fabiola Date Time Electronically viewed and signed by Physician Fabiola on 11/18/2016 09:16 /
[2016-11-18] MEDS ORDERED: HEPARIN 1000 UNITS/ML 10 ML INJ IV PRN ×2 (10:00)
[2016-11-18] MEDS ORDERED: HEPARIN 1000 UNITS/ML 10 ML INJ IV ONE (10:00)
[2016-11-18 10:35] LABS: LYMPHOCYTES # 0.2 10^3/ul (0.8-2.9); MONOCYTE # 0.1 10^3/ul (0.3-0.9); NEUTROPHIL # 4.2 10^3/ul (1.6-7.5)
--- NOTE | 2016-11-18 10:56 | RADRPT ---
PROCEDURE: US DVT. CLINICAL INDICATION: Bilateral lower extremity pain and swelling. TECHNIQUE: Multiple longitudinal and transverse images of the bilateral lower extremity veins were obtained with lai scale and color Doppler imaging. 2D grayscale measurements with compression, co gildardo Doppler flow, and augmentation was performed. The calf veins were interrogated as well. COMPARISON: No prior studies are available for comparison. FINDINGS: The bilateral common femoral, femoral and popliteal veins are normally compressible throughout. Color flow demonstrates normal filling in all of the vessels. Normal venous waveforms are visualized and there is normal response to augmentation. The calf veins were not visualized due to overlying bandage.. IMPRESSION: 1. No evidence of a deep vein thrombosis involving either lower extremity. RPTAT: QQ .Munir Gomez MD, Date Time Electronically viewed and signed by .Munir Gomez MD, on 11/18/2016 10:55 .M/
[2016-11-18] MEDS: ASPIRIN (EC) 81 MG TAB PO SCH (11:00)
[2016-11-18] MEDS: PREGABALIN 25 MG CAP PO SCH ×3 (11:04→22:03)
[2016-11-18] MEDS: ALLOPURINOL 100 MG TAB PO SCH (11:04)
[2016-11-18] MEDS: LORAZEPAM 0.5 MG TAB PO PRN (11:04)
[2016-11-18 11:05] LABS: ADD SCAN DIFF NO
[2016-11-18] MEDS: METOPROLOL 25 MG TAB PO SCH ×2 (11:05→21:00)
[2016-11-18] MEDS: OSELTAMIVIR 30 MG CAP PO SCH (11:06)
[2016-11-18 11:12] LABS: ABNORMAL IP MESSAGE 1; BASOPHILS % 0.6 % (0.0-2.0); EOSINOPHILS % 0.2 % (0.0-7.0); HEMATOCRIT 35.9 % (42.0-52.0); HEMOGLOBIN 10.5 g/dl (14.0-18.0); LYMPHOCYTES # 0.3 10^3/ul (0.8-2.9); LYMPHOCYTES % 4.6 % (15.0-51.0); MEAN CORPUSCULAR HEMOGLOBIN 25.1 pg (29.0-33.0); MEAN CORPUSCULAR HGB CONC 29.2 g/dl (32.0-37.0); MEAN CORPUSCULAR VOLUME 85.7 fl (82.0-101.0); MEAN PLATELET VOLUME 9.8 fl (7.4-10.4); MONOCYTE # 0.4 10^3/ul (0.3-0.9); MONOCYTES % 6.9 % (0.0-11.0); NEUTROPHIL # 5.5 10^3/ul (1.6-7.5); NEUTROPHILS % 86.6 % (39.0-77.0); PLATELET COUNT 133 10^3/UL (140-415); RED BLOOD COUNT 4.19 10^6/ul (4.70-6.10); RED CELL DISTRIBUTION WIDTH 19.2 % (11.5-14.5); WHITE BLOOD COUNT 6.4 10^3/ul (4.8-10.8)
[2016-11-18] MEDS: HEPARIN 25000 UNITS/250 ML 250 ML IV SCH ×2 (11:13→23:12)
[2016-11-18 11:19] LABS: INR 1.54; PROTIME 18.6 Sec (12.2-14.2); PT RATIO 1.5
[2016-11-18 11:19] LABS: AADO2 Arterial 414.2 mmHg (7.0-24.0); Arterial Base Excess -1.1 mmol/L (-3.0-3); Arterial COHb 0.4 % (0.0-3.0); Arterial Fraction of Oxyhgb 89.1 % (93.0-99.0); Arterial HCO3 29.5 mmol/L (22.0-26.0); Arterial MetHb 0.4 % (0.0-1.5); Arterial Total Hemglobin 12.5 g/dl (12.0-18.0); Blood Gas IEPAP 18/6; MODE MASK - BIPAP
[2016-11-18 11:20] LABS: PARTIAL THROMBOPLASTIN TIME 41.6 Sec (25.0-35.0)
[2016-11-18] MEDS ORDERED: FENTAnyl 50 MCG/ML VIAL IV ONE (11:30)
--- NOTE | 2016-11-18 11:40 | CONS ---
Date/Time of Note Date/Time of Note DATE: 11/18/16 TIME: 11:35 Consult Date/Type/Reason Admit Date/Time Nov 17, 2016 at 12:10 Initial Consult Date 11/17/16 Type of Consultation: Pulm Ordering Provider: FELIX SCOTT Transferred to ICU. Placed on NiPPV via BIPAP. Worsening gas exchange and respiratory acidosis despite optimization of settings. Objective Vital Signs Date Time Temp Pulse Resp B/P Pulse Ox O2 Delivery O2 Flow Rate FiO2 11/18/16 09:40 88 92 80 11/18/16 08:00 97.5 27 121/69 BIPAP 11/17/16 13:04 15.0 Intake and Output 11/17/16 11/17/16 11/18/16 15:00 23:00 07:00 Intake Total 300 ml 730 ml 195 ml Output Total 3800 ml 0 ml Balance 300 ml -3070 ml 195 ml NECK: Accessory muscle use with recruitment of sternocleidomastoid noted. No thyromegaly. Jugular venous pressures are distended. CARDIOVASCULAR: Irregularly irregular, S1, S2. No murmurs, rubs, or gallops. CHEST: Diffuse crackles at the bases bilaterally. ABDOMEN: Obese, nontender. +BS EXTREMITIES: 2+ lower extremity edema. Results/Medications Result Diagram: 11/18/16 1100 11/18/16 0450 Results 24 hrs Laboratory Tests Test 11/17/16 13:02 11/17/16 15:55 11/17/16 17:45 11/17/16 18:01 Bedside Glucose 121 135 Arterial Blood HCO3 25.7 Arterial Blood Base Excess -4.3 L Arterial Blood Oxygen Saturation 91.9 L Khoi Test ACCEPTAB Arterial Blood Gas Puncture Site Left Radial Arterial Blood Carboxyhemoglobin 0.9 Arterial Blood Date Drawn 11/17/2016 4:38:00 PM Arterial Blood Methemoglobin 0.4 Arterial Blood pCO2 (Temp correct) 74.4 H Arterial Blood pH (Temp corrected) 7.157 *L Arterial Blood pO2 (Temp corrected) 77.5 L Blood Gas A-a O2 Differential 561.1 H Blood Gas Critical Value Read Back Pako OATES RN Blood Gas Modality MASK - NRB Blood Gas Notified Time 11/17/2016 4:42:00 PM Blood Gas Notified Whom Octavia MOISE Blood Gas Specimen Source Blood arterial Blood Gas Temperature 37.0 FiO2 100.0 Oxyhemoglobin Percent 90.7 L Total Hemoglobin 12.2 B-Type Natriuretic Peptide 57099 H Troponin I < 0.012 Test 11/17/16 19:43 11/17/16 20:20 11/18/16 01:13 11/18/16 04:50 Arterial Blood HCO3 26.0 Arterial Blood Base Excess -2.3 Arterial Blood Oxygen Saturation 99.2 H Khoi Test ACCEPTAB Arterial Blood Gas Puncture Site Right Radial Arterial Blood Carboxyhemoglobin 0.4 Arterial Blood Date Drawn 11/17/2016 8:00:07 PM Arterial Blood Methemoglobin 0.5 Arterial Blood pCO2 (Temp correct) 62.1 H Arterial Blood pH (Temp corrected) 7.239 *L Arterial Blood pO2 (Temp corrected) 187.2 H Blood Gas A-a O2 Differential 463.7 H Blood Gas Actual Respiration Rate 27 Blood Gas Critical Value Read Back trace jon Blood Gas IPAP/EPAP Ratio 15/5 Blood Gas Modality mask-bipap Blood Gas Notified Time 11/17/2016 8:10:52 PM Blood Gas Notified Whom jmd Blood Gas Respiration Rate 20.0 Blood Gas Specimen Source Blood arterial Blood Gas Temperature 37.0 FiO2 100.0 Oxyhemoglobin Percent 98.3 Total Hemoglobin 11.6 L Bedside Glucose 127 110 Alanine Aminotransferase (ALT/SGPT) 22 Albumin 3.5 Albumin/Globulin Ratio 0.89 Alkaline Phosphatase 152 H Anion Gap 19 H Aspartate Amino Transf (AST/SGOT) 38 Band Neutrophils % 1.0 Basophils # Basophils % Blood Urea Nitrogen 45 H Calcium Level 8.2 L Carbon Dioxide Level 29 Chloride Level 96 L Cholesterol Level 85 L Cholesterol/HDL Ratio 2.1 Creatinine 2.24 H Direct Bilirubin 0.00 Eosinophils # Eosinophils % Globulin 3.90 H Glucose Level 88 HDL Cholesterol 40 Hematocrit 32.5 L Hemoglobin 9.4 L Hemoglobin A1c 5.4 Indirect Bilirubin 0.0 LDL Cholesterol, Calculated 32 Lactic Acid Level 0.8 Lymphocytes # 0.2 L Lymphocytes % 4.0 L Mean Corpuscular Hemoglobin 24.6 L Mean Corpuscular Hemoglobin Concent 28.9 L Mean Corpuscular Volume 85.1 Mean Platelet Volume 9.7 Monocytes # 0.1 L Monocytes % 2.0 Neutrophils # 4.2 Neutrophils % Nucleated Red Blood Cells # Nucleated Red Blood Cells % Platelet Count 123 L Potassium Level 4.7 Red Blood Count 3.82 L Red Cell Distribution Width 19.4 H Sodium Level 139 Thyroid Stimulating Hormone (TSH) 2.270 Total Bilirubin 0.0 L Total Protein 7.4 Triglycerides Level 63 White Blood Count 4.5 L Test 11/18/16 05:35 11/18/16 07:00 11/18/16 09:33 11/18/16 10:45 Bedside Glucose 86 85 Arterial Blood HCO3 27.2 H 29.5 H Arterial Blood Base Excess -2.5 -1.1 Arterial Blood Oxygen Saturation 96.6 89.8 L Khoi Test N/A N/A Arterial Blood Gas Puncture Site LB Right Brachial Arterial Blood Carboxyhemoglobin 0.4 0.4 Arterial Blood Date Drawn 11/18/2016 7:40:44 AM 11/18/2016 11:00:32 AM Arterial Blood Methemoglobin 0.4 0.4 Arterial Blood pCO2 (Temp correct) 74.9 H 84.8 *H Arterial Blood pH (Temp corrected) 7.178 *L 7.160 *L Arterial Blood pO2 (Temp corrected) 98.8 67.2 L Blood Gas A-a O2 Differential 539.3 H 414.2 H Blood Gas Actual Respiration Rate 25 Blood Gas Critical Value Read Back ABIEL DamicoTAGUBA Blood Gas IPAP/EPAP Ratio 18/ 18 Blood Gas Modality MASK - BIPAP MASK - BIPAP Blood Gas Notified Time 11/18/2016 7:56:24 AM 11/18/2016 11:19:04 AM Blood Gas Notified Whom [facility] Blood Gas Respiration Rate 22.0 Blood Gas Specimen Source Blood arterial Blood arterial Blood Gas Temperature 37.0 37.0 FiO2 100.0 80.0 Oxyhemoglobin Percent 95.8 89.1 L Total Hemoglobin 11.7 L 12.5 Test 11/18/16 11:00 Activated Partial Thromboplast Time 41.6 H Basophils # 0.0 Basophils % 0.6 Eosinophils # 0.0 Eosinophils % 0.2 Hematocrit 35.9 L Hemoglobin 10.5 L INR International Normalized Ratio 1.54 Lymphocytes # 0.3 L Lymphocytes % 4.6 L Mean Corpuscular Hemoglobin 25.1 L Mean Corpuscular Hemoglobin Concent 29.2 L Mean Corpuscular Volume 85.7 Mean Platelet Volume 9.8 Monocytes # 0.4 Monocytes % 6.9 Neutrophils # 5.5 Neutrophils % 86.6 H Nucleated Red Blood Cells # 0.0 Nucleated Red Blood Cells % 0.0 Platelet Count 133 L Prothrombin Time 18.6 H Prothrombin Time Ratio 1.5 Red Blood Count 4.19 L Red Cell Distribution Width 19.2 H White Blood Count 6.4 # Medications Current Medications Ondansetron HCl (Zofran Inj) 4 mg Q6H PRN IV NAUSEA AND/OR VOMITING; Start 11/17 at 11:00 Acetaminophen/ Hydrocodone Bitart ([place] (5/325)) 1 tab Q6H PRN PO MODERATE PAIN LEVEL 4-6; Start 11/17/16 at 11:00 Morphine Sulfate (morphine) 2 mg Q4H PRN IV SEVERE PAIN LEVEL 7-10; Start at 11:00 Docusate Sodium (Colace) 100 mg Q12H PRN PO CONSTIPATION; Start 11/17/16 at 11: 00 Magnesium Hydroxide (Milk Of Mag) 30 ml DAILY PRN PO CONSTIPATION; Start at 11:00 Sodium Biphosphate/ Sodium Phosphate (Fleet Enema) 133 ml DAILY PRN [place] CONSTIPATION; Start 11/17/16 at 11:00 Lorazepam (Ativan) 0.5 mg Q6H PRN IV ANXIETY Last administered on 11/18/16 07: 27; Admin Dose 0.5 MG; Start 11/17/16 at 11:00 Hydralazine HCl (Apresoline) 10 mg Q6H PRN IV ELEVATED BLOOD PRESSURE; Start at 11:00 Nitroglycerin (Nitroglycerin (Sl Tab) 0.4 Mg) 1 tab Q5M PRN SL ANGINA; Start at 11:00 Acetaminophen (Tylenol Tab) 650 mg Q6H PRN PO PAIN LEVEL 1-5; Start 11/17/16 at 11:00 Allopurinol (Zyloprim) 100 mg DAILY PO Last administered on 11/18/16 11:04; Admin Dose 100 MG; Start 11/18/16 at 09:00 Ascorbic Acid (Vitamin C) 500 mg DAILY PO ; Start 11/18/16 at 09:00 Aspirin (Halfprin) 81 mg DAILY PO ; Start 11/18/16 at 09:00 Atorvastatin Calcium (Lipitor) 10 mg QHS PO Last administered on 11/17/16 20:13 ; Admin Dose 10 MG; Start 11/17/16 at 21:00 Famotidine (Pepcid) 20 mg Q24H PO Last administered on 11/17/16 20:13; Admin Dose 20 MG; Start 11/17/16 at 21:00 Ferrous Sulfate (Ferrous Sulfate (Ec)) 325 mg BID PO Last administered on 20:13; Admin Dose 325 MG; Start 11/17/16 at 21:00 Insulin Glargine (Lantus) 15 unit QHS SC Last administered on 11/17/16 20:31; Admin Dose 15 UNIT; Start 11/17/16 at 21:00 Lactobacillus Acidoph/Bulgaricus (Floranex) 1 tab TID PO Last administered on 20:12; Admin Dose 1 TAB; Start 11/17/16 at 13:00 Lorazepam (Ativan) 0.5 mg Q6 PRN PO ANXIETY Last administered on 11/18/16 11:04 ; Admin Dose 0.5 MG; Start 11/17/16 at 11:00 Metoprolol Tartrate (Lopressor) 12.5 mg BID PO Last administered on 11/18/16 11 :05; Admin Dose 12.5 MG; Start 11/17/16 at 21:00 Fish Oil (Fish Oil) 1,000 mg DAILY PO ; Start 11/18/16 at 09:00 Potassium Chloride (Klor-Con 20) 40 meq DAILY PO ; Start 11/18/16 at 09:00 Pregabalin (Lyrica) 50 mg TID PO Last administered on 11/18/16 11:04; Admin Dose 50 MG; Start 11/17/16 at 13:00 Pyridoxine HCl (Vitamin B6) 100 mg DAILY PO ; Start 11/18/16 at 09:00 Simethicone (Mylicon) 80 mg Q6H PRN PO INTESTINAL SPASMS/CRAMPING; Start at 11:00 Vitamin E (Vitamin E) 400 units DAILY PO ; Start 11/18/16 at 09:00 Zolpidem Tartrate (Ambien) 10 mg QHS PRN PO INSOMNIA; Start 11/17/16 at 11:00 Fluoxetine HCl (Prozac) 20 mg DAILY PO ; Start 11/18/16 at 09:00 Al Hydrox/Mg Hydrox/Simethicone (Mag-Al Plus) 10 ml Q6 PRN PO DISTENSION/GAS/ BLOATING; Start 11/17/16 at 11:00 Vancomycin HCl (Vanco Iv Per Pharmacy) PER PHARMACY DOSING NOTE XX ; Start at 11:30 Insulin Aspart (Novolog Insulin Pen) NOVOLOG *MILD* ALGORI... Q4 SC ; Start 11/17 at 13:00 Miscellaneous Information 1 ea NOTE XX ; Start 11/17/16 at 11:30 Glucose (Glutose) 15 gm Q15M PRN PO DECREASED GLUCOSE; Start 11/17/16 at 11:30 Glucose (Glutose) 22.5 gm Q15M PRN PO DECREASED GLUCOSE; Start 11/17/16 at 11:30 Dextrose (D50w Syringe) 25 ml Q15M PRN IV DECREASED GLUCOSE; Start 11/17/16 at 11:30 Dextrose (D50w Syringe) 50 ml Q15M PRN IV DECREASED GLUCOSE; Start 11/17/16 at 11:30 Glucagon (Glucagen) 1 mg Q15M PRN IM DECREASED GLUCOSE; Start 11/17/16 at 11:30 Glucose 15 gm 15 gm Q15M PRN BUCCAL DECREASED GLUCOSE; Start 11/17/16 at 11:30 Cefepime HCl (Maxipime 1gm/50 ml (Pmx)) 50 ml @ 100 mls/hr Q24H IVPB Last administered on 11/18/16 05:36; Admin Dose 100 MLS/HR; Start 11/18/16 at 06:00 Oseltamivir Phosphate (Tamiflu) 30 mg DAILY PO Last administered on 11/18/16 11 :06; Admin Dose 30 MG; Start 11/17/16 at 17:30 Guaifenesin (Robitussin Liquid Cup) 200 mg Q4H PRN PO COUGH; Start 11/17/16 at 16:00 Phenol (Cepastat Lozenge) 1 lozenge Q1H PRN MT cough; Start 11/17/16 at 16:00 Apixaban (Eliquis) 2.5 mg BID PO Last administered on 11/17/16 20:13; Admin Dose 2.5 MG; Start 11/17/16 at 21:00; Status Future Hold Bisacodyl (Dulcolax Supp) 10 mg Q24H PRN [place] CONSTIPATION; Start 11/17/16 at 16: 30 Cholecalciferol (Vitamin D) 1,000 unit DAILY PO ; Start 11/18/16 at 09:00 Diphenhydramine HCl (Benadryl) 25 mg BID PRN PO ITCHING; Start 11/17/16 at 16:30 Multivitamins Therapeutic (Theragran) 1 tab DAILY PO ; Start 11/18/16 at 09:00 Zinc Sulfate (Zinc Sulfate) 220 mg DAILY PO ; Start 11/18/16 at 09:00 Miscellaneous Information (*Rx Drug Level Order Reminder*) VANCOMYCIN RANDOM LEVEL W... ONCE ONCE XX ; Start 11/19/16 at 05:00; Stop 11/19/16 at 05:01 Fentanyl (Sublimaze) 50 mcg ONCE ONCE IV ; Start 11/18/16 at 11:30; Stop at 11:31; Status UNV Assessment/Plan Additional Assessment/Plan IMPRESSION: 1. Hypoxemic and hypercapnic respiratory failure in a patient with numerous medical problems including volume overload, history of possible chronic obstructive pulmonary disease with CO2 retention, who has failed attempts with NiPPV with BiPAP. CXR shows worsening congestion and cannot exclude component of aspiration. RECOMMENDATIONS: 1. Intubation 2. Optimization of vent settings 3. IV antibiotics to cover for healthcare-associated pathogens. 4. Sedation with propofol gtt 5. Follow serial lactates. 6. Continue hemodialysis with ultrafiltration. 7. Check cardiac enzymes and a 12-lead EKG. 8. Obtain 2D ECHO 9. DVT and GI prophylaxis. 10 Will need a central line 40 minutes critical time spent at bedside GEOVANNA SANTACRUZ MD Nov 18, 2016 11:40
[2016-11-18] MEDS ORDERED: PROPOFOL 100 ML ONE (11:59)
[2016-11-18] MEDS ORDERED: ETOMIDATE 20 MG INJ ONE (12:00)
[2016-11-18] MEDS ORDERED: ROCURONIUM 50 MG INJ ONE (12:00)
--- NOTE | 2016-11-18 12:06 | CONS ---
Date/Time of Note Date/Time of Note DATE: 11/18/16 TIME: 11:54 Assessment/Plan Assessment/Plan Additional Assessment/Plan 61 yo Male with 1) Respiratory failure 2nd to PNA and CHF 2) Volume Overload 3) ESRD on HD MWF 4) Anemia, Chronic, CKD 5) Mineral Bone Disease, CKD 6) Respiratory Acidosis, CO2 Retention with AG Acidosis 7) Type 2 DM 8) Chronic HTN Cont Supportive care HD ordered for today again Will likely order daily UF/HD as needed Repeat CXR or possibly obtain CT Lung w/o Contrast. Renal Dose Rx to ESRD Will cont to closely follow along with you Discussed case with Pulm/CC and Patients , Faviola. Thank you for the opportunity to participate in the care of Mr Fabian. Consultation Date/Type/Reason Admit Date/Time Nov 17, 2016 at 12:10 Initial Consult Date 11/17/16 Type of Consultation: Nephrology Referring Provider: FELIX SCOTT 24 HR Interval Summary Free Text/Dictation Pt had respiratory distress, S/p HD yesterday, Pending HD this am, however required Intubation in ICU. HD still pending. Subjective hx not possible: pt critical status Exam/Review of Systems Vital Signs Vitals Vital Signs Date Time Temp Pulse Resp B/P Pulse Ox O2 Delivery O2 Flow Rate FiO2 11/18/16 09:40 88 92 80 11/18/16 08:00 97.5 27 121/69 BIPAP 11/17/16 13:04 15.0 Intake and Output 11/17/16 11/17/16 11/18/16 15:00 23:00 07:00 Intake Total 300 ml 730 ml 195 ml Output Total 3800 ml 0 ml Balance 300 ml -3070 ml 195 ml Exam Constitutional: distress ENMT: intubated, mucosa pink and moist Neck: jvd Respiratory: crackles/rales, diminished breath sounds Cardiovascular: edema, other (Mild tachy) Gastrointestinal: distended, soft 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: other (sedated) Results Result Diagram: 11/18/16 1100 11/18/16 0450 Results 24 hrs Laboratory Tests Test 11/17/16 13:02 11/17/16 15:55 11/17/16 17:45 11/17/16 18:01 Bedside Glucose 121 135 Arterial Blood HCO3 25.7 Arterial Blood Base Excess -4.3 L Arterial Blood Oxygen Saturation 91.9 L Khoi Test ACCEPTAB Arterial Blood Gas Puncture Site Left Radial Arterial Blood Carboxyhemoglobin 0.9 Arterial Blood Date Drawn 11/17/2016 4:38:00 PM Arterial Blood Methemoglobin 0.4 Arterial Blood pCO2 (Temp correct) 74.4 H Arterial Blood pH (Temp corrected) 7.157 *L Arterial Blood pO2 (Temp corrected) 77.5 L Blood Gas A-a O2 Differential 561.1 H Blood Gas Critical Value Read Back Pako OATES RN Blood Gas Modality MASK - NRB Blood Gas Notified Time 11/17/2016 4:42:00 PM Blood Gas Notified Whom Octavia MOISE Blood Gas Specimen Source Blood arterial Blood Gas Temperature 37.0 FiO2 100.0 Oxyhemoglobin Percent 90.7 L Total Hemoglobin 12.2 B-Type Natriuretic Peptide 82527 H Troponin I < 0.012 Test 11/17/16 19:43 11/17/16 20:20 11/18/16 01:13 11/18/16 04:50 Arterial Blood HCO3 26.0 Arterial Blood Base Excess -2.3 Arterial Blood Oxygen Saturation 99.2 H Khoi Test ACCEPTAB Arterial Blood Gas Puncture Site Right Radial Arterial Blood Carboxyhemoglobin 0.4 Arterial Blood Date Drawn 11/17/2016 8:00:07 PM Arterial Blood Methemoglobin 0.5 Arterial Blood pCO2 (Temp correct) 62.1 H Arterial Blood pH (Temp corrected) 7.239 *L Arterial Blood pO2 (Temp corrected) 187.2 H Blood Gas A-a O2 Differential 463.7 H Blood Gas Actual Respiration Rate 27 Blood Gas Critical Value Read Back trace jon Blood Gas IPAP/EPAP Ratio 15 Blood Gas Modality mask-bipap Blood Gas Notified Time 11/17/2016 8:10:52 PM Blood Gas Notified Whom mandeep Blood Gas Respiration Rate 20.0 Blood Gas Specimen Source Blood arterial Blood Gas Temperature 37.0 FiO2 100.0 Oxyhemoglobin Percent 98.3 Total Hemoglobin 11.6 L Bedside Glucose 127 110 Alanine Aminotransferase (ALT/SGPT) 22 Albumin 3.5 Albumin/Globulin Ratio 0.89 Alkaline Phosphatase 152 H Anion Gap 19 H Aspartate Amino Transf (AST/SGOT) 38 Band Neutrophils % 1.0 Basophils # Basophils % Blood Urea Nitrogen 45 H Calcium Level 8.2 L Carbon Dioxide Level 29 Chloride Level 96 L Cholesterol Level 85 L Cholesterol/HDL Ratio 2.1 Creatinine 2.24 H Direct Bilirubin 0.00 Eosinophils # Eosinophils % Globulin 3.90 H Glucose Level 88 HDL Cholesterol 40 Hematocrit 32.5 L Hemoglobin 9.4 L Hemoglobin A1c 5.4 Indirect Bilirubin 0.0 LDL Cholesterol, Calculated 32 Lactic Acid Level 0.8 Lymphocytes # 0.2 L Lymphocytes % 4.0 L Mean Corpuscular Hemoglobin 24.6 L Mean Corpuscular Hemoglobin Concent 28.9 L Mean Corpuscular Volume 85.1 Mean Platelet Volume 9.7 Monocytes # 0.1 L Monocytes % 2.0 Neutrophils # 4.2 Neutrophils % Nucleated Red Blood Cells # Nucleated Red Blood Cells % Platelet Count 123 L Potassium Level 4.7 Red Blood Count 3.82 L Red Cell Distribution Width 19.4 H Sodium Level 139 Thyroid Stimulating Hormone (TSH) 2.270 Total Bilirubin 0.0 L Total Protein 7.4 Triglycerides Level 63 White Blood Count 4.5 L Test 11/18/16 05:35 11/18/16 07:00 11/18/16 09:33 11/18/16 10:45 Bedside Glucose 86 85 Arterial Blood HCO3 27.2 H 29.5 H Arterial Blood Base Excess -2.5 -1.1 Arterial Blood Oxygen Saturation 96.6 89.8 L Khoi Test N/A N/A Arterial Blood Gas Puncture Site LB Right Brachial Arterial Blood Carboxyhemoglobin 0.4 0.4 Arterial Blood Date Drawn 11/18/2016 7:40:44 AM 11/18/2016 11:00:32 AM Arterial Blood Methemoglobin 0.4 0.4 Arterial Blood pCO2 (Temp correct) 74.9 H 84.8 *H Arterial Blood pH (Temp corrected) 7.178 *L 7.160 *L Arterial Blood pO2 (Temp corrected) 98.8 67.2 L Blood Gas A-a O2 Differential 539.3 H 414.2 H Blood Gas Actual Respiration Rate 25 Blood Gas Critical Value Read Back ABIEL DamcioTAGUBA Blood Gas IPAP/EPAP Ratio 03/05 03/03 Blood Gas Modality MASK - BIPAP MASK - BIPAP Blood Gas Notified Time 11/18/2016 7:56:24 AM 11/18/2016 11:19:04 AM Blood Gas Notified Whom CW CW Blood Gas Respiration Rate 22.0 Blood Gas Specimen Source Blood arterial Blood arterial Blood Gas Temperature 37.0 37.0 FiO2 100.0 80.0 Oxyhemoglobin Percent 95.8 89.1 L Total Hemoglobin 11.7 L 12.5 Test 11/18/16 11:00 Activated Partial Thromboplast Time 41.6 H Basophils # 0.0 Basophils % 0.6 Eosinophils # 0.0 Eosinophils % 0.2 Hematocrit 35.9 L Hemoglobin 10.5 L INR International Normalized Ratio 1.54 Lymphocytes # 0.3 L Lymphocytes % 4.6 L Mean Corpuscular Hemoglobin 25.1 L Mean Corpuscular Hemoglobin Concent 29.2 L Mean Corpuscular Volume 85.7 Mean Platelet Volume 9.8 Monocytes # 0.4 Monocytes % 6.9 Neutrophils # 5.5 Neutrophils % 86.6 H Nucleated Red Blood Cells # 0.0 Nucleated Red Blood Cells % 0.0 Platelet Count 133 L Prothrombin Time 18.6 H Prothrombin Time Ratio 1.5 Red Blood Count 4.19 L Red Cell Distribution Width 19.2 H White Blood Count 6.4 # Medications Medications Current Medications Ondansetron HCl (Zofran Inj) 4 mg Q6H PRN IV NAUSEA AND/OR VOMITING; Start 11/17 at 11:00 Acetaminophen/ Hydrocodone Bitart ([place] (5/325)) 1 tab Q6H PRN PO MODERATE PAIN LEVEL 4-6; Start 11/17/16 at 11:00 Morphine Sulfate (morphine) 2 mg Q4H PRN IV SEVERE PAIN LEVEL 7-10; Start at 11:00 Docusate Sodium (Colace) 100 mg Q12H PRN PO CONSTIPATION; Start 11/17/16 at 11: 00 Magnesium Hydroxide (Milk Of Mag) 30 ml DAILY PRN PO CONSTIPATION; Start at 11:00 Sodium Biphosphate/ Sodium Phosphate (Fleet Enema) 133 ml DAILY PRN [place] CONSTIPATION; Start 11/17/16 at 11:00 Lorazepam (Ativan) 0.5 mg Q6H PRN IV ANXIETY Last administered on 11/18/16t 07: 27; Admin Dose 0.5 MG; Start 11/17/16 at 11:00 Hydralazine HCl (Apresoline) 10 mg Q6H PRN IV ELEVATED BLOOD PRESSURE; Start at 11:00 Nitroglycerin (Nitroglycerin (Sl Tab) 0.4 Mg) 1 tab Q5M PRN SL ANGINA; Start at 11:00 Acetaminophen (Tylenol Tab) 650 mg Q6H PRN PO PAIN LEVEL 1-5; Start 11/17/16 at 11:00 Allopurinol (Zyloprim) 100 mg DAILY PO Last administered on 11/18/16 11:04; Admin Dose 100 MG; Start 11/18/16 at 09:00 Ascorbic Acid (Vitamin C) 500 mg DAILY PO ; Start 11/18/16 at 09:00 Aspirin (Halfprin) 81 mg DAILY PO ; Start 11/18/16 at 09:00 Atorvastatin Calcium (Lipitor) 10 mg QHS PO Last administered on 11/17/16 20:13 ; Admin Dose 10 MG; Start 11/17/16 at 21:00 Famotidine (Pepcid) 20 mg Q24H PO Last administered on 11/17/16 20:13; Admin Dose 20 MG; Start 11/17/16 at 21:00 Ferrous Sulfate (Ferrous Sulfate (Ec)) 325 mg BID PO Last administered on 20:13; Admin Dose 325 MG; Start 11/17/16 at 21:00 Insulin Glargine (Lantus) 15 unit QHS SC Last administered on 11/17/16 20:31; Admin Dose 15 UNIT; Start 11/17/16 at 21:00 Lactobacillus Acidoph/Bulgaricus (Floranex) 1 tab TID PO Last administered on 20:12; Admin Dose 1 TAB; Start 11/17/16 at 13:00 Lorazepam (Ativan) 0.5 mg Q6 PRN PO ANXIETY Last administered on 11/18/16 11:04 ; Admin Dose 0.5 MG; Start 11/17/16 at 11:00 Metoprolol Tartrate (Lopressor) 12.5 mg BID PO Last administered on 11/18/16 11 :05; Admin Dose 12.5 MG; Start 11/17/16 at 21:00 Fish Oil (Fish Oil) 1,000 mg DAILY PO ; Start 11/18/16 at 09:00 Potassium Chloride (Klor-Con 20) 40 meq DAILY PO ; Start 11/18/16 at 09:00 Pregabalin (Lyrica) 50 mg TID PO Last administered on 11/18/16 11:04; Admin Dose 50 MG; Start 11/17/16 at 13:00 Pyridoxine HCl (Vitamin B6) 100 mg DAILY PO ; Start 11/18/16 at 09:00 Simethicone (Mylicon) 80 mg Q6H PRN PO INTESTINAL SPASMS/CRAMPING; Start at 11:00 Vitamin E (Vitamin E) 400 units DAILY PO ; Start 11/18/16 at 09:00 Zolpidem Tartrate (Ambien) 10 mg QHS PRN PO INSOMNIA; Start 11/17/16 at 11:00 Fluoxetine HCl (Prozac) 20 mg DAILY PO ; Start 11/18/16 at 09:00 Al Hydrox/Mg Hydrox/Simethicone (Mag-Al Plus) 10 ml Q6 PRN PO DISTENSION/GAS/ BLOATING; Start 11/17/16 at 11:00 Vancomycin HCl (Vanco Iv Per Pharmacy) PER PHARMACY DOSING NOTE XX ; Start at 11:30 Insulin Aspart (Novolog Insulin Pen) NOVOLOG *MILD* ALGORI... Q4 SC ; Start 11/17 at 13:00 Miscellaneous Information 1 ea NOTE XX ; Start 11/17/16 at 11:30 Glucose (Glutose) 15 gm Q15M PRN PO DECREASED GLUCOSE; Start 11/17/16 at 11:30 Glucose (Glutose) 22.5 gm Q15M PRN PO DECREASED GLUCOSE; Start 11/17/16 at 11:30 Dextrose (D50w Syringe) 25 ml Q15M PRN IV DECREASED GLUCOSE; Start 11/17/16 at 11:30 Dextrose (D50w Syringe) 50 ml Q15M PRN IV DECREASED GLUCOSE; Start 11/17/16 at 11:30 Glucagon (Glucagen) 1 mg Q15M PRN IM DECREASED GLUCOSE; Start 11/17/16 at 11:30 Glucose 15 gm 15 gm Q15M PRN BUCCAL DECREASED GLUCOSE; Start 11/17/16 at 11:30 Cefepime HCl (Maxipime 1gm/50 ml (Pmx)) 50 ml @ 100 mls/hr Q24H IVPB Last administered on 11/18/16 05:36; Admin Dose 100 MLS/HR; Start 11/18/16 at 06:00 Oseltamivir Phosphate (Tamiflu) 30 mg DAILY PO Last administered on 11/18/16 11 :06; Admin Dose 30 MG; Start 11/17/16 at 17:30 Guaifenesin (Robitussin Liquid Cup) 200 mg Q4H PRN PO COUGH; Start 11/17/16 at 16:00 Phenol (Cepastat Lozenge) 1 lozenge Q1H PRN MT cough; Start 11/17/16 at 16:00 Apixaban (Eliquis) 2.5 mg BID PO Last administered on 11/17/16 20:13; Admin Dose 2.5 MG; Start 11/17/16 at 21:00; Status Future Hold Bisacodyl (Dulcolax Supp) 10 mg Q24H PRN [place] CONSTIPATION; Start 11/17/16 at 16: 30 Cholecalciferol (Vitamin D) 1,000 unit DAILY PO ; Start 11/18/16 at 09:00 Diphenhydramine HCl (Benadryl) 25 mg BID PRN PO ITCHING; Start 11/17/16 at 16:30 Multivitamins Therapeutic (Theragran) 1 tab DAILY PO ; Start 11/18/16 at 09:00 Zinc Sulfate (Zinc Sulfate) 220 mg DAILY PO ; Start 11/18/16 at 09:00 Miscellaneous Information (*Rx Drug Level Order Reminder*) VANCOMYCIN RANDOM LEVEL W... ONCE ONCE XX ; Start 11/19/16 at 05:00; Stop 11/19/16 at 05:01 Procedures Procedures PROCEDURE: XR Chest. CLINICAL INDICATION: Shortness of breath. TECHNIQUE: A single portable view of the chest was obtained. COMPARISON: 11/17/2016 FINDINGS: A right-sided hemodialysis catheter is stable. The aorta is tortuous and atherosclerotic. The cardiomediastinal silhouette is otherwise enlarged and is stable. Diffuse pulmonary vascular congestion is seen with likely underlying pulmonary edema and is stable. Bilateral pleural effusions are again noted and are unchanged. The soft tissues and osseous structures demonstrate benign age related senescent changes. IMPRESSION: Radiographic findings of congestive heart failure again seen which is stable. RPTAT: HPNM Physician Fabiola Date Time Electronically viewed and signed by Brannon Browne Physician on 11/18/2016 09 :16 DYAN FRANKLIN MD Nov 18, 2016 12:06
--- NOTE | 2016-11-18 12:34 | RADRPT ---
PROCEDURE: XR Chest. CLINICAL INDICATION: Check line position. TECHNIQUE: Single frontal view. COMPARISON: 11/18/2016. 0603 hours. FINDINGS: The endotracheal tube is in satisfactory position with the tip approximately 4.5 cm above the nithin . The nasogastric tube is in satisfactory position with the tip in the stomach. There is a left in ternal jugular vein catheter with the tip in the upper superior vena cava. The right internal jugular vein tunneled dialysis catheter remains in satisfactory position with the tip in the right atrium. The heart is enlarged. Calcification is present in the aorta consistent with atherosclerosis. There is pulmonary edema and atelectasis in the right mid and lower lung zones, unchanged. There is a moderate right pleural effusion. There is no left pleural effusion. There is no pneumothorax. IMPRESSION: 1. Satisfactory position of endotracheal tube, nasogastric tube, and left internal jugular vein cat heter. 2. Unchanged appearance of cardiomegaly and atherosclerosis. 3. Pulmonary edema and atelectasis in the right mid and lower lung zones, also unchanged. RPTAT: QQ .Aldo Ramirez MD, MD Date Time Electronically viewed and signed by .Aldo Ramirez MD, on 11/18/2016 12:34 .R/
[2016-11-18 13:32] LABS: AADO2 Arterial 568.5 mmHg (7.0-24.0); Arterial Base Excess 0.7 mmol/L (-3.0-3); Arterial COHb 0.1 % (0.0-3.0); Arterial Fraction of Oxyhgb 95.9 % (93.0-99.0); Arterial HCO3 27.6 mmol/L (22.0-26.0); Arterial MetHb 0.4 % (0.0-1.5); Arterial Total Hemglobin 10.4 g/dl (12.0-18.0); MODE VENT - AC
[2016-11-18] MEDS: PROPOFOL 100 ML IV SCH ×2 (13:59→16:42)
--- NOTE | 2016-11-18 14:55 | OPR ---
DATE OF OPERATION: PROCEDURE: Endotracheal intubation. INDICATION: Severe hypercapnic and hypoxemic respiratory failure. CONSENT: After the risks, alternatives, and benefits of procedure were discussed with the patient, signed informed consent was obtained. MEDICATIONS: Fentanyl 50 mcg IV push, etomidate 20 mg IV push, and rocuronium 60 mg IV push. TECHNIQUE: The patient was preoxygenated with 100% oxygen via bag valve ventilation, as well as solder cream maker eic oxygenation via high-flow nasal cannula. After induction of anesthesia, a direct laryngoscopy w as performed using a MAC-3 blade. A grade II view of the vocal cords was noted, and a 7.5 endotrach eal tube was advanced past the cords and secured at 23 cm. The stylet was removed. Initial confirm ation was made via end tidal CO2 and positive bilateral breath sounds. COMPLICATIONS: None. FOLLOWUP STUDIES: Stat chest x-ray has been ordered and is pending. Dictated By: GEOVANNA SANTACRUZ MD NK/NTS Conf#: [id number] DID#: [id number] CC: EDNA BUSTILLO MD;*EndCC*
[2016-11-18] MEDS: ALBUMIN HUMAN 25% 100 ML IV SCH ×2 (15:00→15:45)
--- NOTE | 2016-11-18 15:00 | PN ---
Date/Time of Note Date/Time of Note DATE: 11/18/16 TIME: 14:57 Assessment/Plan VTE Prophylaxis VTE Prophylaxis Intervention: heparin Lines/Catheters IV [facility]ter Type (from [facility]): Peripheral IV Urinary Cath still in place: No Assessment/Plan Chief Complaint/Hosp Course ASSESSMENT AND PLAN: A 61-year-old male with a history of type 2 diabetes, peripheral vascular disease, prior respiratory insufficiency, end-stage renal disease, on dialysis, who presents with a cough for 1 week and signs of pneumonia now with worsening hypoxemic and hypercapnic respiratory failure. 1. SOB - + cougn and now with hypoxemic and hypercapnic respiratory failure. Has prior Hx of COPD. Again, the patient on his last admission about 2 months ago was here for hypercarbic hypoxic respiratory failure. - intubated now, f/u pulmonary consult rec's, continue broad-spectrum antibiotics to cover for healthcare-associated pneumonia with cefepime and vancomycin. -Will put him on prophylaxis for flu and check influenza A and B tests, DuoNeb p.r.n. as well. 2. Type 2 diabetes - f/u A1c, sliding scale insulin. 3. History of gout. Continue allopurinol. 4. History of hypertension. Again, blood pressure is presently stable. He will be on hydralazine p.r.n. systolic greater than 180. 5. History of end-stage renal disease - s/p HD x 2 since admission, may need daily HD per renal consult rec's - . Continue Renvela. - Monitor BUN and creatinine levels daily. 6. History of depression. He is on Ativan p.r.n. 7. Pulmonary hypertension. Continue to monitor for now. Follow up pulmonary recommendations. 8. Gastrointestinal prophylaxis. He will be on PPI. 9. Deep venous thrombosis prophylaxis - holding Eliquis, on heparin IV 10. Prior history of atrial fibrillation - on heparin IV, presently rate controlled. 11. Prior history of osteomyelitis - f/u ID consult rec's. Continue broad- spectrum antibiotics as well. Problems: Subjective 24 Hr Interval Summary Free Text/Dictation Pt transferred to ICU yesterday, worsening res fct, no intubated earlier today. Had HD as well. On heparin drip for afib. Exam/Review of Systems Vital Signs Vitals Vital Signs Date Time Temp Pulse Resp B/P Pulse Ox O2 Delivery O2 Flow Rate FiO2 11/18/16 13:10 78 100 100 11/18/16 11:00 29 132/75 BIPAP 11/18/16 08:00 97.5 11/17/16 13:04 15.0 Intake and Output 11/17/16 11/17/16 11/18/16 15:00 23:00 07:00 Intake Total 300 ml 730 ml 195 ml Output Total 3800 ml 0 ml Balance 300 ml -3070 ml 195 ml Exam GENERAL: The patient is lying in bed, HEENT: Pupils are equal, round, react to light. Extraocular muscles are intact. NECK: Supple. No thyromegaly. LUNGS: Distant breath sounds bilaterally. CARDIOVASCULAR: S1, S2 heard. No rubs or gallops. ABDOMEN: Obese, but otherwise nontender, nondistended. No rebound or guarding. MUSCULOSKELETAL: No lower extremity edema bilaterally. NEUROLOGIC: No focal deficits. Results Result Diagram: 11/18/16 1100 11/18/16 0450 Results 24 hrs Laboratory Tests Test 11/17/16 15:55 11/17/16 17:45 11/17/16 18:01 11/17/16 19:43 Arterial Blood HCO3 25.7 26.0 Arterial Blood Base Excess -4.3 L -2.3 Arterial Blood Oxygen Saturation 91.9 L 99.2 H Khoi Test ACCEPTAB ACCEPTAB Arterial Blood Gas Puncture Site Left Radial Right Radial Arterial Blood Carboxyhemoglobin 0.9 0.4 Arterial Blood Date Drawn 11/17/2016 4:38:00 PM 11/17/2016 8:00:07 PM Arterial Blood Methemoglobin 0.4 0.5 Arterial Blood pCO2 (Temp correct) 74.4 H 62.1 H Arterial Blood pH (Temp corrected) 7.157 *L 7.239 *L Arterial Blood pO2 (Temp corrected) 77.5 L 187.2 H Blood Gas A-a O2 Differential 561.1 H 463.7 H Blood Gas Critical Value Read Back Pako jon rn Blood Gas Modality MASK - NRB mask-bipap Blood Gas Notified Time 11/17/2016 4:42:00 PM 11/17/2016 8:10:52 PM Blood Gas Notified Whom Octavia kaufman Blood Gas Specimen Source Blood arterial Blood arterial Blood Gas Temperature 37.0 37.0 FiO2 100.0 100.0 Oxyhemoglobin Percent 90.7 L 98.3 Total Hemoglobin 12.2 11.6 L B-Type Natriuretic Peptide 63596 H Troponin I < 0.012 Bedside Glucose 135 Blood Gas Actual Respiration Rate 27 Blood Gas IPAP/EPAP Ratio 15 Blood Gas Respiration Rate 20.0 Test 11/17/16 20:20 11/18/16 01:13 11/18/16 04:50 11/18/16 05:35 Bedside Glucose 127 110 86 Alanine Aminotransferase (ALT/SGPT) 22 Albumin 3.5 Albumin/Globulin Ratio 0.89 Alkaline Phosphatase 152 H Anion Gap 19 H Aspartate Amino Transf (AST/SGOT) 38 Band Neutrophils % 1.0 Basophils # Basophils % Blood Urea Nitrogen 45 H Calcium Level 8.2 L Carbon Dioxide Level 29 Chloride Level 96 L Cholesterol Level 85 L Cholesterol/HDL Ratio 2.1 Creatinine 2.24 H Direct Bilirubin 0.00 Eosinophils # Eosinophils % Globulin 3.90 H Glucose Level 88 HDL Cholesterol 40 Hematocrit 32.5 L Hemoglobin 9.4 L Hemoglobin A1c 5.4 Indirect Bilirubin 0.0 LDL Cholesterol, Calculated 32 Lactic Acid Level 0.8 Lymphocytes # 0.2 L Lymphocytes % 4.0 L Mean Corpuscular Hemoglobin 24.6 L Mean Corpuscular Hemoglobin Concent 28.9 L Mean Corpuscular Volume 85.1 Mean Platelet Volume 9.7 Monocytes # 0.1 L Monocytes % 2.0 Neutrophils # 4.2 Neutrophils % Nucleated Red Blood Cells # Nucleated Red Blood Cells % Platelet Count 123 L Potassium Level 4.7 Red Blood Count 3.82 L Red Cell Distribution Width 19.4 H Sodium Level 139 Thyroid Stimulating Hormone (TSH) 2.270 Total Bilirubin 0.0 L Total Protein 7.4 Triglycerides Level 63 White Blood Count 4.5 L Test 11/18/16 07:00 11/18/16 09:33 11/18/16 10:45 11/18/16 11:00 Arterial Blood HCO3 27.2 H 29.5 H Arterial Blood Base Excess -2.5 -1.1 Arterial Blood Oxygen Saturation 96.6 89.8 L Khoi Test N/A N/A Arterial Blood Gas Puncture Site LB Right Brachial Arterial Blood Carboxyhemoglobin 0.4 0.4 Arterial Blood Date Drawn 11/18/2016 7:40:44 AM 11/18/2016 11:00:32 AM Arterial Blood Methemoglobin 0.4 0.4 Arterial Blood pCO2 (Temp correct) 74.9 H 84.8 *H Arterial Blood pH (Temp corrected) 7.178 *L 7.160 *L Arterial Blood pO2 (Temp corrected) 98.8 67.2 L Blood Gas A-a O2 Differential 539.3 H 414.2 H Blood Gas Actual Respiration Rate 25 Blood Gas Critical Value Read Back ABIEL DamicoTAGUBA Blood Gas IPAP/EPAP Ratio 18/8 18/6 Blood Gas Modality MASK - BIPAP MASK - BIPAP Blood Gas Notified Time 11/18/2016 7:56:24 AM 11/18/2016 11:19:04 AM Blood Gas Notified Whom CW CW Blood Gas Respiration Rate 22.0 Blood Gas Specimen Source Blood arterial Blood arterial Blood Gas Temperature 37.0 37.0 FiO2 100.0 80.0 Oxyhemoglobin Percent 95.8 89.1 L Total Hemoglobin 11.7 L 12.5 Bedside Glucose 85 Activated Partial Thromboplast Time 41.6 H Basophils # 0.0 Basophils % 0.6 Eosinophils # 0.0 Eosinophils % 0.2 Hematocrit 35.9 L Hemoglobin 10.5 L INR International Normalized Ratio 1.54 Lymphocytes # 0.3 L Lymphocytes % 4.6 L Mean Corpuscular Hemoglobin 25.1 L Mean Corpuscular Hemoglobin Concent 29.2 L Mean Corpuscular Volume 85.7 Mean Platelet Volume 9.8 Monocytes # 0.4 Monocytes % 6.9 Neutrophils # 5.5 Neutrophils % 86.6 H Nucleated Red Blood Cells # 0.0 Nucleated Red Blood Cells % 0.0 Platelet Count 133 L Prothrombin Time 18.6 H Prothrombin Time Ratio 1.5 Red Blood Count 4.19 L Red Cell Distribution Width 19.2 H White Blood Count 6.4 # Test 11/18/16 11:51 11/18/16 14:15 Arterial Blood HCO3 27.6 H Arterial Blood Base Excess 0.7 Arterial Blood Oxygen Saturation 96.4 Khoi Test N/A Arterial Blood Gas Puncture Site Right Brachial Arterial Blood Carboxyhemoglobin 0.1 Arterial Blood Date Drawn 11/18/2016 1:15:37 PM Arterial Blood Methemoglobin 0.4 Arterial Blood pCO2 (Temp correct) 56.1 H Arterial Blood pH (Temp corrected) 7.310 L Arterial Blood pO2 (Temp corrected) 88.4 Blood Gas A-a O2 Differential 568.5 H Blood Gas Actual Respiration Rate 26 Blood Gas Low PEEP Setting 8.0 Blood Gas Modality VENT - AC Blood Gas Notified Time 11/18/2016 1:32:25 PM Blood Gas Notified Whom CW Blood Gas Respiration Rate 26.0 Blood Gas Specimen Source Blood arterial Blood Gas Temperature 37.0 Blood Gas Tidal Volume 500.0 FiO2 100.0 Oxyhemoglobin Percent 95.9 Total Hemoglobin 10.4 L Bedside Glucose 103 Medications Medications Current Medications Ondansetron HCl (Zofran Inj) 4 mg Q6H PRN IV NAUSEA AND/OR VOMITING; Start 11/17 at 11:00 Acetaminophen/ Hydrocodone Bitart (Dinosaur (5/325)) 1 tab Q6H PRN PO MODERATE PAIN LEVEL 4-6; Start 11/17/16 at 11:00 Morphine Sulfate (morphine) 2 mg Q4H PRN IV SEVERE PAIN LEVEL 7-10; Start at 11:00 Docusate Sodium (Colace) 100 mg Q12H PRN PO CONSTIPATION; Start 11/17/16 at 11: 00 Magnesium Hydroxide (Milk Of Mag) 30 ml DAILY PRN PO CONSTIPATION; Start at 11:00 Sodium Biphosphate/ Sodium Phosphate (Fleet Enema) 133 ml DAILY PRN [place] CONSTIPATION; Start 11/17/16 at 11:00 Lorazepam (Ativan) 0.5 mg Q6H PRN IV ANXIETY Last administered on 11/18/16 07: 27; Admin Dose 0.5 MG; Start 11/17/16 at 11:00 Hydralazine HCl (Apresoline) 10 mg Q6H PRN IV ELEVATED BLOOD PRESSURE; Start at 11:00 Nitroglycerin (Nitroglycerin (Sl Tab) 0.4 Mg) 1 tab Q5M PRN SL ANGINA; Start at 11:00 Acetaminophen (Tylenol Tab) 650 mg Q6H PRN PO PAIN LEVEL 1-5; Start 11/17/16 at 11:00 Allopurinol (Zyloprim) 100 mg DAILY PO Last administered on 11/18/16 11:04; Admin Dose 100 MG; Start 11/18/16 at 09:00 Ascorbic Acid (Vitamin C) 500 mg DAILY PO ; Start 11/18/16 at 09:00 Aspirin (Halfprin) 81 mg DAILY PO ; Start 11/18/16 at 09:00 Atorvastatin Calcium (Lipitor) 10 mg QHS PO Last administered on 11/17/16 20:13 ; Admin Dose 10 MG; Start 11/17/16 at 21:00 Famotidine (Pepcid) 20 mg Q24H PO Last administered on 11/17/16 20:13; Admin Dose 20 MG; Start 11/17/16 at 21:00 Ferrous Sulfate (Ferrous Sulfate (Ec)) 325 mg BID PO Last administered on 20:13; Admin Dose 325 MG; Start 11/17/16 at 21:00 Insulin Glargine (Lantus) 15 unit QHS SC Last administered on 11/17/16 20:31; Admin Dose 15 UNIT; Start 11/17/16 at 21:00 Lactobacillus Acidoph/Bulgaricus (Floranex) 1 tab TID PO Last administered on 20:12; Admin Dose 1 TAB; Start 11/17/16 at 13:00 Lorazepam (Ativan) 0.5 mg Q6 PRN PO ANXIETY Last administered on 11/18/16 11:04 ; Admin Dose 0.5 MG; Start 11/17/16 at 11:00 Metoprolol Tartrate (Lopressor) 12.5 mg BID PO Last administered on 11/18/16 11 :05; Admin Dose 12.5 MG; Start 11/17/16 at 21:00 Fish Oil (Fish Oil) 1,000 mg DAILY PO ; Start 11/18/16 at 09:00 Potassium Chloride (Klor-Con 20) 40 meq DAILY PO ; Start 11/18/16 at 09:00 Pregabalin (Lyrica) 50 mg TID PO Last administered on 11/18/16 11:04; Admin Dose 50 MG; Start 11/17/16 at 13:00 Pyridoxine HCl (Vitamin B6) 100 mg DAILY PO ; Start 11/18/16 at 09:00 Simethicone (Mylicon) 80 mg Q6H PRN PO INTESTINAL SPASMS/CRAMPING; Start at 11:00 Vitamin E (Vitamin E) 400 units DAILY PO ; Start 11/18/16 at 09:00 Zolpidem Tartrate (Ambien) 10 mg QHS PRN PO INSOMNIA; Start 11/17/16 at 11:00 Fluoxetine HCl (Prozac) 20 mg DAILY PO ; Start 11/18/16 at 09:00 Al Hydrox/Mg Hydrox/Simethicone (Mag-Al Plus) 10 ml Q6 PRN PO DISTENSION/GAS/ BLOATING; Start 11/17/16 at 11:00 Vancomycin HCl (Vanco Iv Per Pharmacy) PER PHARMACY DOSING NOTE XX ; Start at 11:30 Insulin Aspart (Novolog Insulin Pen) NOVOLOG *MILD* ALGORI... Q4 SC ; Start 11/17 at 13:00 Miscellaneous Information 1 ea NOTE XX ; Start 11/17/16 at 11:30 Glucose (Glutose) 15 gm Q15M PRN PO DECREASED GLUCOSE; Start 11/17/16 at 11:30 Glucose (Glutose) 22.5 gm Q15M PRN PO DECREASED GLUCOSE; Start 11/17/16 at 11:30 Dextrose (D50w Syringe) 25 ml Q15M PRN IV DECREASED GLUCOSE; Start 11/17/16 at 11:30 Dextrose (D50w Syringe) 50 ml Q15M PRN IV DECREASED GLUCOSE; Start 11/17/16 at 11:30 Glucagon (Glucagen) 1 mg Q15M PRN IM DECREASED GLUCOSE; Start 11/17/16 at 11:30 Glucose 15 gm 15 gm Q15M PRN BUCCAL DECREASED GLUCOSE; Start 11/17/16 at 11:30 Cefepime HCl (Maxipime 1gm/50 ml (Pmx)) 50 ml @ 100 mls/hr Q24H IVPB Last administered on 11/18/16 05:36; Admin Dose 100 MLS/HR; Start 11/18/16 at 06:00 Oseltamivir Phosphate (Tamiflu) 30 mg DAILY PO Last administered on 11/18/16 11 :06; Admin Dose 30 MG; Start 11/17/16 at 17:30 Guaifenesin (Robitussin Liquid Cup) 200 mg Q4H PRN PO COUGH; Start 11/17/16 at 16:00 Phenol (Cepastat Lozenge) 1 lozenge Q1H PRN MT cough; Start 11/17/16 at 16:00 Apixaban (Eliquis) 2.5 mg BID PO Last administered on 11/17/16 20:13; Admin Dose 2.5 MG; Start 11/17/16 at 21:00; Status Future Hold Bisacodyl (Dulcolax Supp) 10 mg Q24H PRN [place] CONSTIPATION; Start 11/17/16 at 16: 30 Cholecalciferol (Vitamin D) 1,000 unit DAILY PO ; Start 11/18/16 at 09:00 Diphenhydramine HCl (Benadryl) 25 mg BID PRN PO ITCHING; Start 11/17/16 at 16:30 Multivitamins Therapeutic (Theragran) 1 tab DAILY PO ; Start 11/18/16 at 09:00 Zinc Sulfate (Zinc Sulfate) 220 mg DAILY PO ; Start 11/18/16 at 09:00 Miscellaneous Information VANCOMYCIN RANDOM LEVEL W... ONCE ONCE XX ; Start 11/19/16 at 05:00; Stop 11/19/16 at 05:01 Propofol 100 ml @ 3.96 mls/hr Q12H IV Last administered on 11/18/16t 13:59; Admin Dose 19.8 MLS/HR; Start 11/18/16 at 12:30 Fentanyl 100 ml @ 2.5 mls/hr TITRATE IV ; Start 11/18/16 at 12:30 Albumin Human (Albumin Human 25%) 100 ml @ 100 mls/hr Q1H IV ; Start 11/18/16 at 13:00; Stop 11/18/16 at 14:59 FELIX SCOTT Nov 18, 2016 15:00
--- NOTE | 2016-11-18 15:50 | OPR ---
DATE OF OPERATION: 11/18/2016 PROCEDURE: Left triple lumen central venous catheter insertion. INDICATION: Need for IV access in a patient with respiratory failure requiring mechanical ventilati on. Consent prior to the patient being intubated. Informed consent was verbal, informed consent wa s obtained from the patient. MEDICATIONS USED: Lidocaine 1%, 5 mL locally. TECHNIQUE: Under strict sterile precautions and under all direct ultrasound guidance, the left inte rnal jugular vein was cannulated via Seldinger technique and the guidewire was removed. The cathete r was sutured in place at approximately 17 cm with 3-0 silk sutures. All ports were flushed. A Bio patch was applied and sterile dressings were applied. COMPLICATIONS: None. FOLLOWUP STUDIES: Stat chest x-ray has been ordered and is pending. Dictated By: GEOVANNA SANTACRUZ MD NK/NTS Conf#: [id number] DID#: [id number] CC: EDNA BUSTILLO MD;*EndCC*
--- NOTE | 2016-11-18 18:00 | PN ---
DATE: 11/18/2016 SUBJECTIVE: The patient was intubated yesterday. He is lying comfortably in bed, no fevers. WBC today 6.4, H and H 10.5 and 35.9, platelets 133, neutrophils 86.6. MICROBIOLOGY: Blood cultures have been negative. Influenza swab negative. INDWELLINGS: Endotracheal tube, NG tube, right chest PermCath placed on 11/08/2015. DIAGNOSTICS ANTIMICROBIALS: The patient is on cefepime, status post Tamiflu, and vancomycin. PHYSICAL EXAMINATION: GENERAL: This is a morbidly obese, middle-aged white man who is intubated, in no distress. HEENT: Head atraumatic, normocephalic. Sclerae anicteric. Buccal mucosa dry. CHEST: Rise symmetrical. Breath sounds diminished to bases. HEART: S1, S2. ABDOMEN: Obese, soft, bowel tones present. EXTREMITIES: Bilateral lower extremities edema. Patrick wrapped from knee down. SKIN: No jaundice, no cyanosis. ASSESSMENT: 1. Acute respiratory failure, multifactorial, likely secondary to fluid overload, possibly pneumoni a. 2. End-stage renal disease, hemodialysis-dependent. 3. Chronic obstructive pulmonary disease exacerbation. 4. Bilateral lower extremities chronic venous stasis with a history of osteomyelitis, treated with 6 weeks of antibiotics. 5. Morbid obesity. 6. Diabetes. PLAN: The patient remains hemodynamically stable on broad spectrum antibiotics, which we will evelina nue. He is being followed by multiple consultants. Dictated By: JAMEY VAZQUEZ BOTTLE INSPECTOR for DONAVAN HALLMAN/GREGORY Conf#: [id number] DID#: [id number]
[2016-11-18] MEDS: FENTAnyl (DRIP) 1000 mcg/100mL 100 ML IV SCH (18:41)
[2016-11-18] MEDS: FAMOTIDINE 20 MG TAB PO SCH (21:20)
[2016-11-18] MEDS: ATORVASTATIN 10 MG TAB PO SCH (21:20)
[2016-11-18] MEDS: FERROUS SULFATE 60 MG/ML 5ML CUP GTB SCH (22:02)
[2016-11-19] VITALS (65 sets, daily range): BP systolic 89–118; BP diastolic 51–77; PULSE 73–108; RESP 26–28
[2016-11-19] MEDS: INSULIN ASPART [NOVOLOG] 3 ML PEN SC SCH ×6 (01:00→21:00)
[2016-11-19] MEDS: PROPOFOL 100 ML IV SCH ×4 (01:01→23:30)
[2016-11-19] MEDS: ALBUTEROL/IPRATROPIUM (NEB) 3 ML AMP HHN PRN (03:30)
[2016-11-19] MEDS: ACETAMINOPHEN 650MG/20.3ML CUP NGT PRN ×2 (04:18→18:41)
[2016-11-19] MEDS ORDERED: ALBUTEROL HFA 8 GM INHALER INH PRN (04:30)
[2016-11-19 04:54] LABS: ADD SCAN DIFF NO
[2016-11-19 04:56] LABS: AADO2 Arterial 601.3 mmHg (7.0-24.0); Allen Test ACCEPTAB; Arterial COHb 0.3 % (0.0-3.0); Arterial Fraction of Oxyhgb 91.7 % (93.0-99.0); Arterial HCO3 27.1 mmol/L (22.0-26.0); Arterial MetHb 0.5 % (0.0-1.5); Arterial Total Hemglobin 10.3 g/dl (12.0-18.0); MODE VENT - AC
[2016-11-19] MEDS ORDERED: [UNRECOGNIZED DRUG - OTHER] XX ONE (05:00)
[2016-11-19 05:07] LABS: ABNORMAL IP MESSAGE 1; BASOPHILS % 0.3 % (0.0-2.0); EOSINOPHILS % 0.5 % (0.0-7.0); HEMATOCRIT 29.8 % (42.0-52.0); HEMOGLOBIN 9.2 g/dl (14.0-18.0); LYMPHOCYTES # 0.2 10^3/ul (0.8-2.9); LYMPHOCYTES % 6.1 % (15.0-51.0); MEAN CORPUSCULAR HEMOGLOBIN 24.5 pg (29.0-33.0); MEAN CORPUSCULAR HGB CONC 30.9 g/dl (32.0-37.0); MEAN CORPUSCULAR VOLUME 79.5 fl (82.0-101.0); MEAN PLATELET VOLUME 10.4 fl (7.4-10.4); MONOCYTE # 0.3 10^3/ul (0.3-0.9); MONOCYTES % 7.5 % (0.0-11.0); NEUTROPHIL # 3.2 10^3/ul (1.6-7.5); NEUTROPHILS % 84.8 % (39.0-77.0); PLATELET COUNT 123 10^3/UL (140-415); RED BLOOD COUNT 3.75 10^6/ul (4.70-6.10); RED CELL DISTRIBUTION WIDTH 19.2 % (11.5-14.5); WHITE BLOOD COUNT 3.7 10^3/ul (4.8-10.8)
[2016-11-19 05:21] LABS: POTASSIUM 4.7 mmol/L (3.5-5.1)
[2016-11-19 05:23] LABS: CREATININE 2.83 mg/dl (0.61-1.24)
[2016-11-19] MEDS: HEPARIN 25000 UNITS/250 ML 250 ML IV SCH ×3 (05:24→20:49)
[2016-11-19 05:25] LABS: CALCIUM 8.1 mg/dl (8.4-10.2)
[2016-11-19] MEDS: CEFEPIME 1GM/50 ML (PMX) 50 ML IVPB SCH (05:27)
[2016-11-19] MEDS: BUMETANIDE 1 MG TAB PO SCH (06:00)
--- NOTE | 2016-11-19 07:22 | RADRPT ---
PROCEDURE: XR Chest. CLINICAL INDICATION: Shortness of breath. TECHNIQUE: Single frontal view. COMPARISON: 11/18/2016. FINDINGS: The endotracheal tube, nasogastric tube, left internal jugular vein catheter, and right internal jug ular vein tunneled dialysis catheter are all once again noted and there are unchanged and in satisfa ctory position. Bilateral patchy pulmonary air space disease is worse in the mid and lower lung zon es consistent with worsening pulmonary edema or pneumonia. The heart is enlarged. There is calcification in the aorta consistent with atherosclerosis. There is a moderate right pleural effusion. There is no left pleural effusion. There is no pneumothorax. IMPRESSION: 1. Worse appearance of the lungs when compared with 11/18/2017. 2. No other new abnormality. RPTAT: QQ .Aldo Ramirez MD, Date Time Electronically viewed and signed by .Aldo Ramirez MD, on 11/19/2016 07:21 .R/
[2016-11-19] MEDS: SEVELAMER CARBONATE 0.8 GM PKT PO SCH ×3 (07:33→18:00)
[2016-11-19] MEDS: DEXTROSE 50% 50 ML SYRINGE IV PRN ×2 (08:40→16:43)
[2016-11-19] MEDS: VITAMIN E 400 UNITS CAP PO SCH (08:53)
[2016-11-19] MEDS: FLUOXETINE 20 MG CAP PO SCH (08:53)
[2016-11-19] MEDS: PREGABALIN 25 MG CAP PO SCH ×3 (08:53→21:38)
[2016-11-19] MEDS: FISH OIL 1,000 MG CAP PO SCH (08:53)
[2016-11-19] MEDS: MULTIVITAMINS THERAPEUTIC TAB PO SCH (08:53)
[2016-11-19] MEDS: ALLOPURINOL 100 MG TAB PO SCH (08:53)
[2016-11-19] MEDS: POTASSIUM CHLORIDE (SR) 20 MEQ TAB PO SCH (08:53)
[2016-11-19] MEDS: ZINC SULFATE 220 MG CAP PO SCH (08:53)
[2016-11-19] MEDS: LACTOBACILLUS CHEW TAB PO SCH ×3 (08:53→20:43)
[2016-11-19] MEDS: PYRIDOXINE 50 MG TAB PO SCH (08:54)
[2016-11-19] MEDS: CHOLECALCIFEROL 1,000 UNIT TAB PO SCH (08:55)
[2016-11-19] MEDS: FERROUS SULFATE 60 MG/ML 5ML CUP GTB SCH ×2 (08:56→20:40)
[2016-11-19] MEDS: METOPROLOL 25 MG TAB PO SCH ×3 (08:57→20:43)
[2016-11-19] MEDS: ASPIRIN (EC) 81 MG TAB PO SCH (09:00)
--- NOTE | 2016-11-19 09:17 | CONS ---
Date/Time of Note Date/Time of Note DATE: 11/19/16 TIME: 09:12 Assessment/Plan Assessment/Plan Additional Assessment/Plan Ventilator settings are AC of 26, tidal volume 500, PEEP of 8, 100% FiO2. Chest x-ray was reviewed from today which is showing bilateral perihilar infiltrative changes which are worse compared to x-ray from yesterday. Assessment recommendations; 1. Patient admitted with respiratory failure due to severe bilateral pneumonia. 2. Severe hypoxemia. 3. Chronic renal failure, on hemodialysis. 4. Hyperlipidemia. 5. History of gout. 6. History of peripheral vascular disease. Continue current supportive care. Prognosis is very guarded. Consultation Date/Type/Reason Admit Date/Time Nov 17, 2016 at 12:10 Initial Consult Date 11/17/16 Type of Consultation: Pulmonary/critical care Referring Provider: FELIX SCOTT 24 HR Interval Summary Free Text/Dictation Patient condition remains extremely critical. Requiring 100% FiO2 for O2 saturation maintenance. Patient however is hemodynamically stable. General examination; middle aged man or intubated, morbidly obese. Exam/Review of Systems Vital Signs Vitals Vital Signs Date Time Temp Pulse Resp B/P Pulse Ox O2 Delivery O2 Flow Rate FiO2 11/19/16 08:00 82 11/19/16 07:49 26 93 100 11/19/16 07:00 108/57 11/19/16 05:45 99.8 11/18/16 18:30 Mechanical Ventilator 11/17/16 13:04 15.0 Intake and Output 11/18/16 11/18/16 11/19/16 15:00 23:00 07:00 Intake Total 70 ml 854.0 ml 60 ml Output Total 0 ml 8500 ml Balance 70 ml -7646.0 ml 60 ml Exam H EENT examination; supple neck, JVD difficult to see because of short neck. Orally intubated. Pupils are small bilaterally. No neck masses. Chest examination; diminished breath sounds bilaterally. S1-S2 audible, no murmurs. Regular rhythm. Abdomen examination; protuberant, bowel sounds audible. No organomegaly. Extremity examination; chronic appearing changes in lower extremities. Dorsalis pedis pulses are palpable bilaterally. Trace edema. 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 Results Result Diagram: 11/19/16 0430 11/19/16 0430 Results 24 hrs Laboratory Tests Test 11/18/16 09:33 11/18/16 10:45 11/18/16 11:00 11/18/16 11:51 Bedside Glucose 85 Arterial Blood HCO3 29.5 H 27.6 H Arterial Blood Base Excess -1.1 0.7 Arterial Blood Oxygen Saturation 89.8 L 96.4 Khoi Test N/A N/A Arterial Blood Gas Puncture Site Right Brachial Right Brachial Arterial Blood Carboxyhemoglobin 0.4 0.1 Arterial Blood Date Drawn 11/18/2016 11:00:32 AM 11/18/2016 1:15:37 PM Arterial Blood Methemoglobin 0.4 0.4 Arterial Blood pCO2 (Temp correct) 84.8 *H 56.1 H Arterial Blood pH (Temp corrected) 7.160 *L 7.310 L Arterial Blood pO2 (Temp corrected) 67.2 L 88.4 Blood Gas A-a O2 Differential 414.2 H 568.5 H Blood Gas Critical Value Read Back G.TAGUBA Blood Gas IPAP/EPAP Ratio 18/6 Blood Gas Modality MASK - BIPAP VENT - AC Blood Gas Notified Time 11/18/2016 11:19:04 AM 11/18/2016 1:32:25 PM Blood Gas Notified Whom CW CW Blood Gas Specimen Source Blood arterial Blood arterial Blood Gas Temperature 37.0 37.0 FiO2 80.0 100.0 Oxyhemoglobin Percent 89.1 L 95.9 Total Hemoglobin 12.5 10.4 L Activated Partial Thromboplast Time 41.6 H Basophils # 0.0 Basophils % 0.6 Eosinophils # 0.0 Eosinophils % 0.2 Hematocrit 35.9 L Hemoglobin 10.5 L INR International Normalized Ratio 1.54 Lymphocytes # 0.3 L Lymphocytes % 4.6 L Mean Corpuscular Hemoglobin 25.1 L Mean Corpuscular Hemoglobin Concent 29.2 L Mean Corpuscular Volume 85.7 Mean Platelet Volume 9.8 Monocytes # 0.4 Monocytes % 6.9 Neutrophils # 5.5 Neutrophils % 86.6 H Nucleated Red Blood Cells # 0.0 Nucleated Red Blood Cells % 0.0 Platelet Count 133 L Prothrombin Time 18.6 H Prothrombin Time Ratio 1.5 Red Blood Count 4.19 L Red Cell Distribution Width 19.2 H White Blood Count 6.4 # Blood Gas Actual Respiration Rate 26 Blood Gas Low PEEP Setting 8.0 Blood Gas Respiration Rate 26.0 Blood Gas Tidal Volume 500.0 Test 11/18/16 14:15 11/18/16 17:08 11/18/16 18:43 11/18/16 20:05 Bedside Glucose 103 73 Activated Partial Thromboplast Time > 180.0 *H 101.2 *H Test 11/18/16 21:25 11/18/16 22:16 11/19/16 01:51 11/19/16 04:30 Bedside Glucose 75 74 Activated Partial Thromboplast Time 53.6 H 117.8 *H Anion Gap 17 H Basophils # 0.0 Basophils % 0.3 Blood Urea Nitrogen 63 H Calcium Level 8.1 L Carbon Dioxide Level 29 Chloride Level 98 Creatinine 2.83 H Eosinophils # 0.0 Eosinophils % 0.5 Glucose Level 72 Hematocrit 29.8 L Hemoglobin 9.2 L Lactic Acid Level 1.2 Lymphocytes # 0.2 L Lymphocytes % 6.1 L Mean Corpuscular Hemoglobin 24.5 L Mean Corpuscular Hemoglobin Concent 30.9 L Mean Corpuscular Volume 79.5 L Mean Platelet Volume 10.4 Monocytes # 0.3 Monocytes % 7.5 Neutrophils # 3.2 Neutrophils % 84.8 H Nucleated Red Blood Cells # 0.0 Nucleated Red Blood Cells % 0.0 Platelet Count 123 L Potassium Level 4.7 Random Vancomycin Level 15.0 Red Blood Count 3.75 L Red Cell Distribution Width 19.2 H Sodium Level 139 White Blood Count 3.7 #L Test 11/19/16 05:00 11/19/16 05:11 11/19/16 08:30 11/19/16 09:03 Arterial Blood HCO3 27.1 H Arterial Blood Base Excess 2.0 Arterial Blood Oxygen Saturation 92.4 L Khoi Test ACCEPTAB Arterial Blood Gas Puncture Site Right Radial Arterial Blood Carboxyhemoglobin 0.3 Arterial Blood Date Drawn 11/19/2016 4:36:01 AM Arterial Blood Methemoglobin 0.5 Arterial Blood pCO2 (Temp correct) 44.4 Arterial Blood pH (Temp corrected) 7.403 Arterial Blood pO2 (Temp corrected) 67.3 L Blood Gas A-a O2 Differential 601.3 H Blood Gas Actual Respiration Rate 26 Blood Gas Inspiratory Pressure 40.0 Blood Gas Low PEEP Setting 8.0 Blood Gas Modality VENT - AC Blood Gas Notified Time 11/19/2016 4:55:57 AM Blood Gas Notified Whom RTR Blood Gas Respiration Rate 26.0 Blood Gas Specimen Source Blood arterial Blood Gas Temperature 37.0 Blood Gas Tidal Volume 500.0 FiO2 100.0 Oxyhemoglobin Percent 91.7 L Total Hemoglobin 10.3 L Bedside Glucose 75 63 L 97 Medications Medications Current Medications Ondansetron HCl (Zofran Inj) 4 mg Q6H PRN IV NAUSEA AND/OR VOMITING; Start 11/17 at 11:00 Acetaminophen/ Hydrocodone Bitart (Benavides (5/325)) 1 tab Q6H PRN PO MODERATE PAIN LEVEL 4-6; Start 11/17/16 at 11:00 Morphine Sulfate (morphine) 2 mg Q4H PRN IV SEVERE PAIN LEVEL 7-10; Start at 11:00 Docusate Sodium (Colace) 100 mg Q12H PRN PO CONSTIPATION; Start 11/17/16 at 11: 00 Magnesium Hydroxide (Milk Of Mag) 30 ml DAILY PRN PO CONSTIPATION; Start at 11:00 Sodium Biphosphate/ Sodium Phosphate (Fleet Enema) 133 ml DAILY PRN ID CONSTIPATION; Start 11/17/16 at 11:00 Lorazepam (Ativan) 0.5 mg Q6H PRN IV ANXIETY Last administered on 11/18/16 07: 27; Admin Dose 0.5 MG; Start 11/17/16 at 11:00 Hydralazine HCl (Apresoline) 10 mg Q6H PRN IV ELEVATED BLOOD PRESSURE; Start at 11:00 Nitroglycerin (Nitroglycerin (Sl Tab) 0.4 Mg) 1 tab Q5M PRN SL ANGINA; Start at 11:00 Acetaminophen (Tylenol Tab) 650 mg Q6H PRN PO PAIN LEVEL 1-5; Start 11/17/16 at 11:00 Allopurinol (Zyloprim) 100 mg DAILY PO Last administered on 11/19/16 08:53; Admin Dose 100 MG; Start 11/18/16 at 09:00 Aspirin (Halfprin) 81 mg DAILY PO ; Start 11/18/16 at 09:00 Atorvastatin Calcium (Lipitor) 10 mg QHS PO Last administered on 11/18/16 21:20 ; Admin Dose 10 MG; Start 11/17/16 at 21:00 Famotidine (Pepcid) 20 mg Q24H PO Last administered on 11/18/16 21:20; Admin Dose 20 MG; Start 11/17/16 at 21:00 Lactobacillus Acidoph/Bulgaricus (Floranex) 1 tab TID PO Last administered on 08:53; Admin Dose 1 TAB; Start 11/17/16 at 13:00 Lorazepam (Ativan) 0.5 mg Q6 PRN PO ANXIETY Last administered on 11/18/16 11:04 ; Admin Dose 0.5 MG; Start 11/17/16 at 11:00 Metoprolol Tartrate (Lopressor) 12.5 mg BID PO Last administered on 11/19/16 08 :57; Admin Dose 12.5 MG; Start 11/17/16 at 21:00 Fish Oil (Fish Oil) 1,000 mg DAILY PO Last administered on 11/19/16 08:53; Admin Dose 1,000 MG; Start 11/18/16 at 09:00 Potassium Chloride (Klor-Con 20) 40 meq DAILY PO Last administered on 11/19/16 08:53; Admin Dose 40 MEQ; Start 11/18/16 at 09:00 Pregabalin (Lyrica) 50 mg TID PO Last administered on 11/19/16 08:53; Admin Dose 50 MG; Start 11/17/16 at 13:00 Pyridoxine HCl (Vitamin B6) 100 mg DAILY PO Last administered on 11/19/16 08:54 ; Admin Dose 100 MG; Start 11/18/16 at 09:00 Simethicone (Mylicon) 80 mg Q6H PRN PO INTESTINAL SPASMS/CRAMPING; Start at 11:00 Vitamin E (Vitamin E) 400 units DAILY PO Last administered on 11/19/16 08:53; Admin Dose 400 UNITS; Start 11/18/16 at 09:00 Zolpidem Tartrate (Ambien) 10 mg QHS PRN PO INSOMNIA; Start 11/17/16 at 11:00 Fluoxetine HCl (Prozac) 20 mg DAILY PO Last administered on 11/19/16 08:53; Admin Dose 20 MG; Start 11/18/16 at 09:00 Al Hydrox/Mg Hydrox/Simethicone (Mag-Al Plus) 10 ml Q6 PRN PO DISTENSION/GAS/ BLOATING; Start 11/17/16 at 11:00 Vancomycin HCl (Vanco Iv Per Pharmacy) PER PHARMACY DOSING NOTE XX ; Start at 11:30 Insulin Aspart (Novolog Insulin Pen) NOVOLOG *MILD* ALGORI... Q4 SC ; Start 11/17 at 13:00 Miscellaneous Information 1 ea NOTE XX ; Start 11/17/16 at 11:30 Glucose (Glutose) 15 gm Q15M PRN PO DECREASED GLUCOSE; Start 11/17/16 at 11:30 Glucose (Glutose) 22.5 gm Q15M PRN PO DECREASED GLUCOSE; Start 11/17/16 at 11:30 Dextrose (D50w Syringe) 25 ml Q15M PRN IV DECREASED GLUCOSE Last administered on 11/19/16 08:40; Admin Dose 25 ML; Start 11/17/16 at 11:30 Dextrose (D50w Syringe) 50 ml Q15M PRN IV DECREASED GLUCOSE; Start 11/17/16 at 11:30 Glucagon (Glucagen) 1 mg Q15M PRN IM DECREASED GLUCOSE; Start 11/17/16 at 11:30 Glucose 15 gm 15 gm Q15M PRN BUCCAL DECREASED GLUCOSE; Start 11/17/16 at 11:30 Cefepime HCl (Maxipime 1gm/50 ml (Pmx)) 50 ml @ 100 mls/hr Q24H IVPB Last administered on 11/19/16 05:27; Admin Dose 100 MLS/HR; Start 11/18/16 at 06:00 Guaifenesin (Robitussin Liquid Cup) 200 mg Q4H PRN PO COUGH; Start 11/17/16 at 16:00 Phenol (Cepastat Lozenge) 1 lozenge Q1H PRN MT cough; Start 11/17/16 at 16:00 Apixaban (Eliquis) 2.5 mg BID PO Last administered on 11/17/16 20:13; Admin Dose 2.5 MG; Start 11/17/16 at 21:00; Status Future Hold Bisacodyl (Dulcolax Supp) 10 mg Q24H PRN ID CONSTIPATION; Start 11/17/16 at 16: 30 Cholecalciferol (Vitamin D) 1,000 unit DAILY PO Last administered on 11/19/16 08:55; Admin Dose 1,000 UNIT; Start 11/18/16 at 09:00 Diphenhydramine HCl (Benadryl) 25 mg BID PRN PO ITCHING; Start 11/17/16 at 16:30 Multivitamins Therapeutic (Theragran) 1 tab DAILY PO Last administered on 08:53; Admin Dose 1 TAB; Start 11/18/16 at 09:00 Zinc Sulfate 220 mg 220 mg DAILY PO Last administered on 11/19/16 08:53; Admin Dose 220 MG; Start 11/18/16 at 09:00 Propofol 100 ml @ 3.96 mls/hr Q12H IV Last administered on 11/19/16 01:01; Admin Dose 7.92 MLS/HR; Start 11/18/16 at 12:30 Fentanyl (Sublimaze) 100 ml @ 2.5 mls/hr TITRATE IV Last administered on 18:41; Admin Dose 2.5 MLS/HR; Start 11/18/16 at 12:30 Ferrous Sulfate (Feosol Liquid Cup) 300 mg BID GTB Last administered on 08:56; Admin Dose 300 MG; Start 11/18/16 at 21:00 Acetaminophen 650 mg 650 mg Q6 PRN NGT PAIN AND OR ELEVATED TEMP Last administered on 11/19/16 04:18; Admin Dose 650 MG; Start 11/19/16 at 03:30 Vancomycin HCl/ Sodium Chloride (Vancocin/NS) 250 ml @ 83.333 mls/ hr ONCE IVPB ; Start 11/19/16 at 10:00; Stop 11/19/16 at 12:59 OLGA DARDEN 6, 2017 09:17
[2016-11-19] MEDS ORDERED: HEPARIN 1000 UNITS/ML 10 ML INJ CATHETER SCH (10:00)
[2016-11-19] MEDS ORDERED: VANCOMYCIN 1.25 GM in SOD CHLORIDE 0.9% 250 ML IVPB SCH (10:00)
[2016-11-19] MEDS ORDERED: LEVOFLOXACIN 500MG/D5W (PMX) 100 ML IVPB SCH (11:00)
--- NOTE | 2016-11-19 12:30 | PN ---
DATE: 11/19/2016 INFECTIOUS DISEASE PROGRESS NOTE SUBJECTIVE: No acute events. The patient is in hemodialysis, looks comfortable, no fevers. VITAL SIGNS: T-max 99.8, pulse 87, respirations 20, blood pressure 99/60, saturation 97% on vent. LABORATORY DATA: WBC 3.7, H and H 9.2 and 29.8, platelets 123, neutrophils 84.8. INDWELLINGS: Endotracheal tube, NG tube, right chest PermCath. ANTIMICROBIALS: The patient is on: 1. IV vancomycin. 2. Cefepime. PHYSICAL EXAMINATION: GENERAL: This is a morbidly obese, well-developed white man who is intubated, sedated, in no distre ss. HEENT: Head atraumatic, normocephalic. Sclerae anicteric. Buccal mucosa dry. NECK: Supple. CHEST: Rise symmetrical. Breath sounds diminished. HEART: S1, S2. ABDOMEN: Soft, bowel sounds present. EXTREMITIES: Bilateral lower extremity dressings intact. ASSESSMENT: 1. Acute respiratory failure, possibly aspiration event. 2. Fluid overload. 3. End-stage renal disease, hemodialysis dependent. 4. Bilateral lower extremities chronic venous stasis with a history of osteomyelitis. 5. Morbid obesity 6. Diabetes. 7. Chronic obstructive pulmonary disease. 8. Healthcare-associated pneumonia. PLAN: The patient remains hemodynamically stable. Continue present care, antibiotics, vent support per pulmonary. Dictated By: JAMEY VAZQUEZ NET C DEVELOPER for DONAVAN BRITTON MD NI/NTS Conf#: [id number] DID#: [id number]
--- NOTE | 2016-11-19 16:31 | CONS ---
DATE OF ADMISSION: 11/17/2016 DATE OF CONSULTATION: 11/19/2016 TYPE OF CONSULTATION: Cardiology. REASON FOR CONSULTATION: Atrial fibrillation, respiratory failure. CHIEF COMPLAINT: Respiratory failure, shortness of breath, cough. HISTORY OF PRESENT ILLNESS: Thank you for this referral. History was from the patient's chart, rev iew of the old chart. The patient is also known to improve with admission to the hospital. This 17 -year-old gentleman with history of diabetes, prior osteomyelitis, hypertension, atrial fibrillation and congestive heart failure secondary to diastolic dysfunction, morbid obesity, renal failure on d ialysis and recurrent respiratory failure who was admitted initially 2 days ago with increasing shor tness of breath and cough. The patient has respiratory oliva deteriorated, had to be intubated, curr ently intubated in the ICU. Blood pressure currently stable, remains in atrial fibrillation. Heart rate is currently stable at the moment. PAST MEDICAL HISTORY: As above mentioned. SOCIAL HISTORY: The patient does not smoke or drink. FAMILY HISTORY: No reported coronary artery disease. MEDICATIONS: Per medical reconciliation, personally reviewed prior to admission was supposed to be also on Eliquis. REVIEW OF SYSTEMS: Unable to obtain as above-mentioned. PHYSICAL EXAMINATION: VITAL SIGNS: Temperature 98.5, heart rate of 79, blood pressure 103/67, respiration rate of 27, sat urating 98% on the vent. HEENT: Normocephalic, atraumatic. Status post intubation on the vent. Morbidly obese gentleman. CARDIOVASCULAR: Irregularly irregular. Systolic murmur. PULMONARY: Anteriorly with no wheezes, mild rhonchi at the base. GASTROINTESTINAL: Soft, nontender. EXTREMITIES: Positive edema with erythema and ulceration of the foot. NEUROLOGIC: Sedated. LABORATORY: WBC of 3.7, hemoglobin 9.2, platelets of 123. Sodium 139, potassium 4.7, BUN of 63, cr eatinine 2.83, glucose of 72. Chest x-ray done today shows worse appearance of the lungs compared to before. Bilateral patchy air space disease. EKG on admission shows atrial fibrillation, nonspecific ST abnormalities. Ultrasoun d of the lower extremity yesterday showed no evidence of DVT. ASSESSMENT AND PLAN: 1. Hypoxemia respiratory failure, status post intubation on the vent. 2. Pneumonia. 3. Renal failure, chronic, on dialysis. 4. Severe anemia. 5. Atrial fibrillation. 6. History of peripheral vascular disease. 7. History of hypertension, currently on the low side. RECOMMENDATIONS: Anticoagulation as per internal medicine. The patient previously was on Eliquis. He had previously had a report of GI bleed in the past; however, previous recent guaiac has b een negative per review of the old chart. Tolerating the heparin now well. Electrolytes will be re placed as needed. Antibiotic is managed as per pulmonary recommendations. Continue with the ICU ca re. More than 35 minutes critical care time spent in management of this patient excluding any procedures . Dictated By: GARDENIA RAZO/GREGORY Conf#: [id number] DID#: [id number]
--- NOTE | 2016-11-19 18:29 | PN ---
Date/Time of Note Date/Time of Note DATE: 11/19/16 TIME: 18:11 Assessment/Plan VTE Prophylaxis VTE Prophylaxis Intervention: heparin Lines/Catheters IV C[facility]ter Type [facility]from [facility] Permacath Urinary Cath still in place: No Assessment/Plan Assessment/Plan A 61-year-old male with a history of type 2 diabetes, peripheral vascular disease, prior respiratory insufficiency, end-stage renal disease, on dialysis, who presents with a cough for 1 week and SOB managed as follows: 1. Hypoxemic / Hypercapnic resp failure / Vent dependent 2. CHF exacerbation diastolic 3. Moderate tricuspid regurgitation 4. Pulmonary hypertension 5. ESRD on HD 6. Morbid obesity / cannot r/o OHS 7. COPD 8. HTN 9. Paroxysmal Afib 10. DM2 11. Chronic depression 12. Hx of Chronic foot ulcer with osteomyelitis 13. Hx of PVD / Gout 14. Pancytopenia with microcytosis: mild iron deficiency noted PLAN: * Continue daily dialysis * Continue Vent support and mgt/ patient stil requiring 100% o2 / did not tolerate weaning today * Continue broad spectrum abx / heparin drip * add scheduled bronchodilator therapy * Continue SSI / start tube feeds at low rate * ?iron replacement therapy * continue icu supportive care PROPHYLAXIS: Heparin / PPI CRITICAL CARE TIME: >35 mins Subjective 24 Hr Interval Summary Free Text/Dictation Patient seen and examined. Intubated and sedated for comfort, but no pressor support. able to arouse and answer questions appropriately however Exam/Review of Systems Vital Signs Vitals Vital Signs Date Time Temp Pulse Resp B/P Pulse Ox O2 Delivery O2 Flow Rate FiO2 11/19/16 17:19 90 28 94 100 11/19/16 17:00 115/73 Mechanical Ventilator 11/19/16 16:00 98.7 11/17/16 13:04 15.0 Intake and Output 11/18/16 11/18/16 11/19/16 15:00 23:00 07:00 Intake Total 70 ml 854.0 ml 60 ml Output Total 0 ml 8500 ml Balance 70 ml -7646.0 ml 60 ml Exam Constitutional: obese, oriented, No alert Psych: other (unable to assess) Head: normocephalic Eyes: PERRL ENMT: intubated Respiratory: diminished breath sounds, No wheezing Cardiovascular: regular rate and rhythm, No murmurs/extra sounds Gastrointestinal: bowel sounds, other (protberant), soft Musculoskeletal: No nl extremities to inspection Extremities: edema 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: lethargic Skin: other (erythematous skin in both lower extremities with mild diffuse non pitting edema and chronic keratotic skin changes and toe ulcer) Results Result Diagram: 11/19/16 0430 11/19/16 0430 Results 24 hrs Laboratory Tests Test 11/18/16 18:43 11/18/16 20:05 11/18/16 21:25 11/18/16 22:16 Bedside Glucose 73 75 Activated Partial Thromboplast Time 101.2 *H 53.6 H Test 11/19/16 01:51 11/19/16 04:30 11/19/16 05:00 11/19/16 05:11 Bedside Glucose 74 75 Activated Partial Thromboplast Time 117.8 *H Anion Gap 17 H Basophils # 0.0 Basophils % 0.3 Blood Urea Nitrogen 63 H Calcium Level 8.1 L Carbon Dioxide Level 29 Chloride Level 98 Creatinine 2.83 H Eosinophils # 0.0 Eosinophils % 0.5 Glucose Level 72 Hematocrit 29.8 L Hemoglobin 9.2 L Lactic Acid Level 1.2 Lymphocytes # 0.2 L Lymphocytes % 6.1 L Mean Corpuscular Hemoglobin 24.5 L Mean Corpuscular Hemoglobin Concent 30.9 L Mean Corpuscular Volume 79.5 L Mean Platelet Volume 10.4 Monocytes # 0.3 Monocytes % 7.5 Neutrophils # 3.2 Neutrophils % 84.8 H Nucleated Red Blood Cells # 0.0 Nucleated Red Blood Cells % 0.0 Platelet Count 123 L Potassium Level 4.7 Random Vancomycin Level 15.0 Red Blood Count 3.75 L Red Cell Distribution Width 19.2 H Sodium Level 139 White Blood Count 3.7 #L Arterial Blood HCO3 27.1 H Arterial Blood Base Excess 2.0 Arterial Blood Oxygen Saturation 92.4 L Khoi Test ACCEPTAB Arterial Blood Gas Puncture Site Right Radial Arterial Blood Carboxyhemoglobin 0.3 Arterial Blood Date Drawn 11/19/2016 4:36:01 AM Arterial Blood Methemoglobin 0.5 Arterial Blood pCO2 (Temp correct) 44.4 Arterial Blood pH (Temp corrected) 7.403 Arterial Blood pO2 (Temp corrected) 67.3 L Blood Gas A-a O2 Differential 601.3 H Blood Gas Actual Respiration Rate 26 Blood Gas Inspiratory Pressure 40.0 Blood Gas Low PEEP Setting 8.0 Blood Gas Modality VENT - AC Blood Gas Notified Time 11/19/2016 4:55:57 AM Blood Gas Notified Whom RTR Blood Gas Respiration Rate 26.0 Blood Gas Specimen Source Blood arterial Blood Gas Temperature 37.0 Blood Gas Tidal Volume 500.0 FiO2 100.0 Oxyhemoglobin Percent 91.7 L Total Hemoglobin 10.3 L Test 11/19/16 08:30 11/19/16 09:03 11/19/16 11:52 11/19/16 13:36 Bedside Glucose 63 L 97 74 Activated Partial Thromboplast Time 122.1 *H Test 11/19/16 17:03 Bedside Glucose 114 Medications Medications Current Medications Ondansetron HCl (Zofran Inj) 4 mg Q6H PRN IV NAUSEA AND/OR VOMITING; Start 11/17 at 11:00 Acetaminophen/ Hydrocodone Bitart ([place] (5/325)) 1 tab Q6H PRN PO MODERATE PAIN LEVEL 4-6; Start 11/17/16 at 11:00 Morphine Sulfate (morphine) 2 mg Q4H PRN IV SEVERE PAIN LEVEL 7-10; Start at 11:00 Docusate Sodium (Colace) 100 mg Q12H PRN PO CONSTIPATION; Start 11/17/16 at 11: 00 Magnesium Hydroxide (Milk Of Mag) 30 ml DAILY PRN PO CONSTIPATION; Start at 11:00 Sodium Biphosphate/ Sodium Phosphate (Fleet Enema) 133 ml DAILY PRN MA CONSTIPATION; Start 11/17/16 at 11:00 Lorazepam (Ativan) 0.5 mg Q6H PRN IV ANXIETY Last administered on 11/18/16 07: 27; Admin Dose 0.5 MG; Start 11/17/16 at 11:00 Hydralazine HCl (Apresoline) 10 mg Q6H PRN IV ELEVATED BLOOD PRESSURE; Start at 11:00 Nitroglycerin (Nitroglycerin (Sl Tab) 0.4 Mg) 1 tab Q5M PRN SL ANGINA; Start at 11:00 Acetaminophen (Tylenol Tab) 650 mg Q6H PRN PO PAIN LEVEL 1-5; Start 11/17/16 at 11:00 Allopurinol (Zyloprim) 100 mg DAILY PO Last administered on 11/19/16 08:53; Admin Dose 100 MG; Start 11/18/16 at 09:00 Aspirin (Halfprin) 81 mg DAILY PO ; Start 11/18/16 at 09:00 Atorvastatin Calcium (Lipitor) 10 mg QHS PO Last administered on 11/18/16 21:20 ; Admin Dose 10 MG; Start 11/17/16 at 21:00 Famotidine (Pepcid) 20 mg Q24H PO Last administered on 11/18/16 21:20; Admin Dose 20 MG; Start 11/17/16 at 21:00 Lactobacillus Acidoph/Bulgaricus (Floranex) 1 tab TID PO Last administered on 13:32; Admin Dose 1 TAB; Start 11/17/16 at 13:00 Lorazepam (Ativan) 0.5 mg Q6 PRN PO ANXIETY Last administered on 11/18/16 11:04 ; Admin Dose 0.5 MG; Start 11/17/16 at 11:00 Metoprolol Tartrate (Lopressor) 12.5 mg BID PO Last administered on 11/18/16 11 :05; Admin Dose 12.5 MG; Start 11/17/16 at 21:00 Fish Oil (Fish Oil) 1,000 mg DAILY PO Last administered on 11/19/16 08:53; Admin Dose 1,000 MG; Start 11/18/16 at 09:00 Potassium Chloride (Klor-Con 20) 40 meq DAILY PO Last administered on 11/19/16 08:53; Admin Dose 40 MEQ; Start 11/18/16 at 09:00 Pregabalin (Lyrica) 50 mg TID PO Last administered on 11/19/16 13:32; Admin Dose 50 MG; Start 11/17/16 at 13:00 Pyridoxine HCl (Vitamin B6) 100 mg DAILY PO Last administered on 11/19/16 08:54 ; Admin Dose 100 MG; Start 11/18/16 at 09:00 Simethicone (Mylicon) 80 mg Q6H PRN PO INTESTINAL SPASMS/CRAMPING; Start at 11:00 Vitamin E (Vitamin E) 400 units DAILY PO Last administered on 11/19/16 08:53; Admin Dose 400 UNITS; Start 11/18/16 at 09:00 Zolpidem Tartrate (Ambien) 10 mg QHS PRN PO INSOMNIA; Start 11/17/16 at 11:00 Fluoxetine HCl (Prozac) 20 mg DAILY PO Last administered on 11/19/16 08:53; Admin Dose 20 MG; Start 11/18/16 at 09:00 Al Hydrox/Mg Hydrox/Simethicone (Mag-Al Plus) 10 ml Q6 PRN PO DISTENSION/GAS/ BLOATING; Start 11/17/16 at 11:00 Vancomycin HCl (Vanco Iv Per Pharmacy) PER PHARMACY DOSING NOTE XX ; Start at 11:30 Insulin Aspart (Novolog Insulin Pen) NOVOLOG *MILD* ALGORI... Q4 SC ; Start 11/17 at 13:00 Miscellaneous Information 1 ea NOTE XX ; Start 11/17/16 at 11:30 Glucose (Glutose) 15 gm Q15M PRN PO DECREASED GLUCOSE; Start 11/17/16 at 11:30 Glucose (Glutose) 22.5 gm Q15M PRN PO DECREASED GLUCOSE; Start 11/17/16 at 11:30 Dextrose (D50w Syringe) 25 ml Q15M PRN IV DECREASED GLUCOSE Last administered on 11/19/16 16:43; Admin Dose 25 ML; Start 11/17/16 at 11:30 Dextrose (D50w Syringe) 50 ml Q15M PRN IV DECREASED GLUCOSE; Start 11/17/16 at 11:30 Glucagon (Glucagen) 1 mg Q15M PRN IM DECREASED GLUCOSE; Start 11/17/16 at 11:30 Glucose 15 gm 15 gm Q15M PRN BUCCAL DECREASED GLUCOSE; Start 11/17/16 at 11:30 Cefepime HCl (Maxipime 1gm/50 ml (Pmx)) 50 ml @ 100 mls/hr Q24H IVPB Last administered on 11/19/16 05:27; Admin Dose 100 MLS/HR; Start 11/18/16 at 06:00 Guaifenesin (Robitussin Liquid Cup) 200 mg Q4H PRN PO COUGH; Start 11/17/16 at 16:00 Phenol (Cepastat Lozenge) 1 lozenge Q1H PRN MT cough; Start 11/17/16 at 16:00 Apixaban (Eliquis) 2.5 mg BID PO Last administered on 11/17/16 20:13; Admin Dose 2.5 MG; Start 11/17/16 at 21:00; Status Future Hold Bisacodyl (Dulcolax Supp) 10 mg Q24H PRN MA CONSTIPATION; Start 11/17/16 at 16: 30 Cholecalciferol (Vitamin D) 1,000 unit DAILY PO Last administered on 11/19/16 08:55; Admin Dose 1,000 UNIT; Start 11/18/16 at 09:00 Diphenhydramine HCl (Benadryl) 25 mg BID PRN PO ITCHING; Start 11/17/16 at 16:30 Multivitamins Therapeutic (Theragran) 1 tab DAILY PO Last administered on 08:53; Admin Dose 1 TAB; Start 11/18/16 at 09:00 Zinc Sulfate 220 mg 220 mg DAILY PO Last administered on 11/19/16 08:53; Admin Dose 220 MG; Start 11/18/16 at 09:00 Propofol 100 ml @ 3.96 mls/hr Q12H IV Last administered on 11/19/16 16:58; Admin Dose 7.92 MLS/HR; Start 11/18/16 at 12:30 Fentanyl (Sublimaze) 100 ml @ 2.5 mls/hr TITRATE IV Last administered on 18:41; Admin Dose 2.5 MLS/HR; Start 11/18/16 at 12:30 Ferrous Sulfate (Feosol Liquid Cup) 300 mg BID GTB Last administered on 08:56; Admin Dose 300 MG; Start 11/18/16 at 21:00 Acetaminophen (Tylenol Liquid) 650 mg Q6 PRN NGT PAIN AND OR ELEVATED TEMP Last administered on 11/19/16 04:18; Admin Dose 650 MG; Start 11/19/16 at 03:30 Procedures Procedures PROCEDURE: XR Chest. CLINICAL INDICATION: Shortness of breath. TECHNIQUE: Single frontal view. COMPARISON: 11/18/2016. FINDINGS: The endotracheal tube, nasogastric tube, left internal jugular vein catheter, and right internal jugular vein tunneled dialysis catheter are all once again noted and there are unchanged and in satisfactory position. Bilateral patchy pulmonary air space disease is worse in the mid and lower lung zones consistent with worsening pulmonary edema or pneumonia. The heart is enlarged. There is calcification in the aorta consistent with atherosclerosis. There is a moderate right pleural effusion. There is no left pleural effusion. There is no pneumothorax. IMPRESSION: 1. Worse appearance of the lungs when compared with 11/18/2017. 2. No other new abnormality. RPTAT: QQ .Aldo Ramirez MD, MD Date Time Electronically viewed and signed by .Aldo Ramirez MD, MD on 11/19/2016 07:21 .R/ CC: GEOVANNA SANTACRUZ MD Echocardiogram Report Patient Name: BLACK BENDER Gender: Male Date: 1955 Study Date: 13-Sep-2016 Instrument Technician: Tone Hoskins RDCS Location: [id number] Ref. Physician: GARDENIA MURRAY Quality: Technically Difficult Study Procedures: Transthoracic echocardiogram with complete 2D, M-Mode, and doppler examination. Indications: Evaluate Pulmonary Pressure. 2D/M Mode Doppler Measurement Value Normal Ranges Measurement Value Normal Ranges LVIDd 2D 4.3 3.5 - 5.6 cm AV Peak Nikita 1.7 m/sec LVIDs 2D 3.0 2.1 - 4.1 cm AV Peak PG 11.6 mmHg LVPWd 2D 0.9 0.6 - 1.1 cm LVOT Peak Nikita 0.7 m/sec IVSd 2D 0.8 0.6 - 1.1 cm LVOT Peak PG 1.8 mmHg AoR Diam 2D 3.1 2.0 - 3.7 cm TR Peak Nikita 2.9 m/sec EDV 2D 82.3 cm3 TR Peak PG 34.4 mmHg ESV 2D 26.7 cm3 RVSP 49.0 mmHg LA Dimen 2D 4.8 2.3 - 4.0 cm Findings Left Ventricle: Normal left ventricular systolic function. Normal left ventricular cavity size. Normal left ventricular wall thickness. Ejection fraction is visually estimated at 55 %. Tissue Doppler/Mitral Doppler indices are consistent with restrictive physiology with markedly elevated left atrial pressure (Stage IIIIV diastolic dysfunction). Right Ventricle: Moderate enlargement of right ventricle. Moderate right ventricular hypokinesis. Left Atrium: There is moderate enlargement of left atrium. Right Atrium: There is moderate enlargement of right atrium. Mitral Valve: Mitral valve leaflets appear mildly thickened. Mild mitral annular calcification. Trace mitral regurgitation. Aortic Valve: Aortic valve not well visualized. Mild aortic stenosis. Aortic cusps appear moderately calcified. Trace aortic valve regurgitation. Tricuspid Valve: Normal appearance of the tricuspid valve. Estimated peak PA systolic pressure 49 mmHg. There is mild to moderate tricuspid regurgitation. Pulmonic Valve: Pulmonic valve not well visualized. Pericardium: Normal pericardium with no significant pericardial effusion. Right pleural effusion seen. Aorta: Normal aortic root. IVC: Dilated inferior vena cava without respiratory collapse, however, patient on ventilator. Pulmonary Artery: Normal pulmonary artery size. Conclusions 1. Normal left ventricular systolic function. Normal left ventricular cavity size. Normal left ventricular wall thickness. Ejection fraction is visually estimated at 55 %. Tissue Doppler/Mitral Doppler indices are consistent with restrictive physiology with markedly elevated left atrial pressure (Stage III-IV diastolic dysfunction). 2. There is moderate enlargement of left atrium. 3. There is moderate enlargement of right atrium. 4. Mitral valve leaflets appear mildly thickened. Mild mitral annular calcification. Trace mitral regurgitation. 5. Aortic valve not well visualized. Mild aortic stenosis. Aortic cusps appear moderately calcified. Trace aortic valve regurgitation. 6. Normal appearance of the tricuspid valve. Estimated peak PA systolic pressure 49 mmHg. There is mild to moderate tricuspid regurgitation. 7. Dilated inferior vena cava without respiratory collapse, however, patient on ventilator. Electronically Signed By: Gardenia Murray 14-Sep-2016 17:58:42 [id number] PROCEDURE: US DVT. CLINICAL INDICATION: Bilateral lower extremity pain and swelling. TECHNIQUE: Multiple longitudinal and transverse images of the bilateral lower extremity veins were obtained with lai scale and color Doppler imaging. 2D grayscale measurements with compression, color Doppler flow, and augmentation was performed. The calf veins were interrogated as well. COMPARISON: No prior studies are available for comparison. FINDINGS: The bilateral common femoral, femoral and popliteal veins are normally compressible throughout. Color flow demonstrates normal filling in all of the vessels. Normal venous waveforms are visualized and there is normal response to augmentation. The calf veins were not visualized due to overlying bandage.. IMPRESSION: 1. No evidence of a deep vein thrombosis involving either lower extremity. RPTAT: QQ .Munir Gomez MD, MD Date Time Electronically viewed and signed by .Munir Gomez MD, MD on 11/18/2016 10: 55 .M/ CC: GEOVANNA SANTACRUZ MD, BOLAT[place]O M. Nov 19, 2016 18:25
[2016-11-19] MEDS: IPRATROPIUM (HFA) 12.9 GM INHALER INH SCH (19:34)
[2016-11-19 19:36] LABS: AADO2 Arterial 607.2 mmHg (7.0-24.0); Allen Test ACCEPTAB; Arterial Base Excess -0.2 mmol/L (-3.0-3); Arterial COHb 0.2 % (0.0-3.0); Arterial Fraction of Oxyhgb 86.4 % (93.0-99.0); Arterial MetHb 0.3 % (0.0-1.5); Arterial Total Hemglobin 12.1 g/dl (12.0-18.0); MODE VENT - VC+
--- NOTE | 2016-11-19 20:15 | CONS ---
Date/Time of Note Date/Time of Note DATE: 11/19/16 TIME: 20:14 Assessment/Plan Assessment/Plan Additional Assessment/Plan Pts' condition has deteriorated. Already dialyzed Difficult to sustain BP & resp status Cont'd Hospitalization Reason: Will eval pt hd Consultation Date/Type/Reason Admit Date/Time Nov 17, 2016 at 12:10 Initial Consult Date 11/17/16 Type of Consultation: renal Referring Provider: FELIX SCOTT 24 HR Interval Summary Free Text/Dictation Pt is on Vent Subjective hx not possible: pt non-verbal Exam/Review of Systems Vital Signs Vitals Vital Signs Date Time Temp Pulse Resp B/P Pulse Ox O2 Delivery O2 Flow Rate FiO2 11/19/16 18:57 101.0 11/19/16 18:00 91 107/77 93 Mechanical Ventilator 11/19/16 17:19 28 100 11/17/16 13:04 15.0 Intake and Output 11/18/16 11/18/16 11/19/16 15:00 23:00 07:00 Intake Total 70 ml 854.0 ml 60 ml Output Total 0 ml 8500 ml Balance 70 ml -7646.0 ml 60 ml Exam Constitutional: alert, oriented, well developed Psych: nl mood/affect, no complaints Head: atraumatic, normocephalic Eyes: EOMI, PERRL, nl conjunctiva, nl lids, nl sclera ENMT: intubated, nl external ears & nose, nl lips & teeth, nl nasal mucosa & septum Neck: jvd, non-tender, supple Respiratory: clear to auscultation, normal air movement, other (Rt chest wall permacath in place) Cardiovascular: nl pulses, regular rate and rhythm Gastrointestinal: nl liver, spleen, non-tender, soft Musculoskeletal: nl extremities to inspection, nl gait and stance Extremities: normal pulses 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: REGULATORY ATTORNEY 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, nl mental status, nl speech, nl strength Skin: nl turgor, No rash or lesions Lymph: nl lymph nodes Results Result Diagram: 11/19/16 0430 11/19/16 0430 Results 24 hrs Laboratory Tests Test 11/18/16 21:25 11/18/16 22:16 11/19/16 01:51 11/19/16 04:30 Bedside Glucose 75 74 Activated Partial Thromboplast Time 53.6 H 117.8 *H Anion Gap 17 H Basophils # 0.0 Basophils % 0.3 Blood Urea Nitrogen 63 H Calcium Level 8.1 L Carbon Dioxide Level 29 Chloride Level 98 Creatinine 2.83 H Eosinophils # 0.0 Eosinophils % 0.5 Glucose Level 72 Hematocrit 29.8 L Hemoglobin 9.2 L Lactic Acid Level 1.2 Lymphocytes # 0.2 L Lymphocytes % 6.1 L Mean Corpuscular Hemoglobin 24.5 L Mean Corpuscular Hemoglobin Concent 30.9 L Mean Corpuscular Volume 79.5 L Mean Platelet Volume 10.4 Monocytes # 0.3 Monocytes % 7.5 Neutrophils # 3.2 Neutrophils % 84.8 H Nucleated Red Blood Cells # 0.0 Nucleated Red Blood Cells % 0.0 Platelet Count 123 L Potassium Level 4.7 Random Vancomycin Level 15.0 Red Blood Count 3.75 L Red Cell Distribution Width 19.2 H Sodium Level 139 White Blood Count 3.7 #L Test 11/19/16 05:00 11/19/16 05:11 11/19/16 08:30 11/19/16 09:03 Arterial Blood HCO3 27.1 H Arterial Blood Base Excess 2.0 Arterial Blood Oxygen Saturation 92.4 L Khoi Test ACCEPTAB Arterial Blood Gas Puncture Site Right Radial Arterial Blood Carboxyhemoglobin 0.3 Arterial Blood Date Drawn 11/19/2016 4:36:01 AM Arterial Blood Methemoglobin 0.5 Arterial Blood pCO2 (Temp correct) 44.4 Arterial Blood pH (Temp corrected) 7.403 Arterial Blood pO2 (Temp corrected) 67.3 L Blood Gas A-a O2 Differential 601.3 H Blood Gas Actual Respiration Rate 26 Blood Gas Inspiratory Pressure 40.0 Blood Gas Low PEEP Setting 8.0 Blood Gas Modality VENT - AC Blood Gas Notified Time 11/19/2016 4:55:57 AM Blood Gas Notified Whom RTR Blood Gas Respiration Rate 26.0 Blood Gas Specimen Source Blood arterial Blood Gas Temperature 37.0 Blood Gas Tidal Volume 500.0 FiO2 100.0 Oxyhemoglobin Percent 91.7 L Total Hemoglobin 10.3 L Bedside Glucose 75 63 L 97 Test 11/19/16 11:52 11/19/16 13:36 11/19/16 17:03 11/19/16 18:55 Bedside Glucose 74 114 Activated Partial Thromboplast Time 122.1 *H Arterial Blood HCO3 26.0 Arterial Blood Base Excess -0.2 Arterial Blood Oxygen Saturation 86.8 L Khoi Test ACCEPTAB Arterial Blood Gas Puncture Site Right Radial Arterial Blood Carboxyhemoglobin 0.2 Arterial Blood Date Drawn 11/19/2016 7:24:38 PM Arterial Blood Methemoglobin 0.3 Arterial Blood pCO2 (Temp correct) 48.7 H Arterial Blood pH (Temp corrected) 7.345 L Arterial Blood pO2 (Temp corrected) 57.1 L Blood Gas A-a O2 Differential 607.2 H Blood Gas Actual Respiration Rate 28 Blood Gas Inspiratory Pressure 28.0 Blood Gas Inspiratory Time 0.75 Blood Gas Low PEEP Setting 8.0 Blood Gas Modality VENT - VC+ Blood Gas Notified Time 11/19/2016 7:36:18 PM Blood Gas Notified Whom RTR Blood Gas Respiration Rate 26.0 Blood Gas Specimen Source Blood arterial Blood Gas Temperature 37.0 Blood Gas Tidal Volume 500.0 FiO2 100.0 Oxyhemoglobin Percent 86.4 L Total Hemoglobin 12.1 Medications Medications Current Medications Ondansetron HCl (Zofran Inj) 4 mg Q6H PRN IV NAUSEA AND/OR VOMITING; Start 11/17 at 11:00 Acetaminophen/ Hydrocodone Bitart ([place] (5/325)) 1 tab Q6H PRN PO MODERATE PAIN LEVEL 4-6; Start 11/17/16 at 11:00 Morphine Sulfate (morphine) 2 mg Q4H PRN IV SEVERE PAIN LEVEL 7-10; Start at 11:00 Magnesium Hydroxide (Milk Of Mag) 30 ml DAILY PRN PO CONSTIPATION; Start at 11:00 Sodium Biphosphate/ Sodium Phosphate (Fleet Enema) 133 ml DAILY PRN [place] CONSTIPATION; Start 11/17/16 at 11:00 Lorazepam (Ativan) 0.5 mg Q6H PRN IV ANXIETY Last administered on 11/18/16t 07: 27; Admin Dose 0.5 MG; Start 11/17/16 at 11:00 Hydralazine HCl (Apresoline) 10 mg Q6H PRN IV ELEVATED BLOOD PRESSURE; Start at 11:00 Nitroglycerin (Nitroglycerin (Sl Tab) 0.4 Mg) 1 tab Q5M PRN SL ANGINA; Start at 11:00 Acetaminophen (Tylenol Tab) 650 mg Q6H PRN PO PAIN LEVEL 1-5; Start 11/17/16 at 11:00 Allopurinol (Zyloprim) 100 mg DAILY PO Last administered on 11/19/16 08:53; Admin Dose 100 MG; Start 11/18/16 at 09:00 Aspirin (Halfprin) 81 mg DAILY PO ; Start 11/18/16 at 09:00 Atorvastatin Calcium (Lipitor) 10 mg QHS PO Last administered on 11/18/16 21:20 ; Admin Dose 10 MG; Start 11/17/16 at 21:00 Famotidine (Pepcid) 20 mg Q24H PO Last administered on 11/18/16 21:20; Admin Dose 20 MG; Start 11/17/16 at 21:00 Lactobacillus Acidoph/Bulgaricus (Floranex) 1 tab TID PO Last administered on 13:32; Admin Dose 1 TAB; Start 11/17/16 at 13:00 Lorazepam (Ativan) 0.5 mg Q6 PRN PO ANXIETY Last administered on 11/18/16 11:04 ; Admin Dose 0.5 MG; Start 11/17/16 at 11:00 Metoprolol Tartrate (Lopressor) 12.5 mg BID PO Last administered on 11/18/16 11 :05; Admin Dose 12.5 MG; Start 11/17/16 at 21:00 Fish Oil (Fish Oil) 1,000 mg DAILY PO Last administered on 11/19/16 08:53; Admin Dose 1,000 MG; Start 11/18/16 at 09:00 Potassium Chloride (Klor-Con 20) 40 meq DAILY PO Last administered on 11/19/16 08:53; Admin Dose 40 MEQ; Start 11/18/16 at 09:00 Pregabalin (Lyrica) 50 mg TID PO Last administered on 11/19/16 13:32; Admin Dose 50 MG; Start 11/17/16 at 13:00 Pyridoxine HCl (Vitamin B6) 100 mg DAILY PO Last administered on 11/19/16 08:54 ; Admin Dose 100 MG; Start 11/18/16 at 09:00 Simethicone (Mylicon) 80 mg Q6H PRN PO INTESTINAL SPASMS/CRAMPING; Start at 11:00 Vitamin E (Vitamin E) 400 units DAILY PO Last administered on 11/19/16 08:53; Admin Dose 400 UNITS; Start 11/18/16 at 09:00 Zolpidem Tartrate (Ambien) 10 mg QHS PRN PO INSOMNIA; Start 11/17/16 at 11:00 Fluoxetine HCl (Prozac) 20 mg DAILY PO Last administered on 11/19/16 08:53; Admin Dose 20 MG; Start 11/18/16 at 09:00 Al Hydrox/Mg Hydrox/Simethicone (Mag-Al Plus) 10 ml Q6 PRN PO DISTENSION/GAS/ BLOATING; Start 11/17/16 at 11:00 Vancomycin HCl (Vanco Iv Per Pharmacy) PER PHARMACY DOSING NOTE XX ; Start at 11:30 Insulin Aspart (Novolog Insulin Pen) NOVOLOG *MILD* [place]I... Q4 SC ; Start 11/17 at 13:00 Miscellaneous Information 1 ea NOTE XX ; Start 11/17/16 at 11:30 Glucose (Glutose) 15 gm Q15M PRN PO DECREASED GLUCOSE; Start 11/17/16 at 11:30 Glucose (Glutose) 22.5 gm Q15M PRN PO DECREASED GLUCOSE; Start 11/17/16 at 11:30 Dextrose (D50w Syringe) 25 ml Q15M PRN IV DECREASED GLUCOSE Last administered on 11/19/16 16:43; Admin Dose 25 ML; Start 11/17/16 at 11:30 Dextrose (D50w Syringe) 50 ml Q15M PRN IV DECREASED GLUCOSE; Start 11/17/16 at 11:30 Glucagon (Glucagen) 1 mg Q15M PRN IM DECREASED GLUCOSE; Start 11/17/16 at 11:30 Glucose 15 gm 15 gm Q15M PRN BUCCAL DECREASED GLUCOSE; Start 11/17/16 at 11:30 Cefepime HCl (Maxipime 1gm/50 ml (Pmx)) 50 ml @ 100 mls/hr Q24H IVPB Last administered on 11/19/16 05:27; Admin Dose 100 MLS/HR; Start 11/18/16 at 06:00 Guaifenesin (Robitussin Liquid Cup) 200 mg Q4H PRN PO COUGH; Start 11/17/16 at 16:00 Phenol (Cepastat Lozenge) 1 lozenge Q1H PRN [place] cough; Start 11/17/16 at 16:00 Apixaban (Eliquis) 2.5 mg BID PO Last administered on 11/17/16 20:13; Admin Dose 2.5 MG; Start 11/17/16 at 21:00; Status Future Hold Bisacodyl (Dulcolax Supp) 10 mg Q24H PRN [place] CONSTIPATION; Start 11/17/16 at 16: 30 Cholecalciferol (Vitamin D) 1,000 unit DAILY PO Last administered on 11/19/16 08:55; Admin Dose 1,000 UNIT; Start 11/18/16 at 09:00 Diphenhydramine HCl (Benadryl) 25 mg BID PRN PO ITCHING; Start 11/17/16 at 16:30 Multivitamins Therapeutic (Theragran) 1 tab DAILY PO Last administered on 08:53; Admin Dose 1 TAB; Start 11/18/16 at 09:00 Zinc Sulfate 220 mg 220 mg DAILY PO Last administered on 11/19/16 08:53; Admin Dose 220 MG; Start 11/18/16 at 09:00 Propofol 100 ml @ 3.96 mls/hr Q12H IV Last administered on 11/19/16 16:58; Admin Dose 7.92 MLS/HR; Start 11/18/16 at 12:30 Fentanyl (Sublimaze) 100 ml @ 2.5 mls/hr TITRATE IV Last administered on 18:41; Admin Dose 2.5 MLS/HR; Start 11/18/16 at 12:30 Ferrous Sulfate (Feosol Liquid Cup) 300 mg BID GTB Last administered on 08:56; Admin Dose 300 MG; Start 11/18/16 at 21:00 Acetaminophen (Tylenol Liquid) 650 mg Q6 PRN NGT PAIN AND OR ELEVATED TEMP Last administered on 11/19/16 18:41; Admin Dose 650 MG; Start 11/19/16 at 03:30 Docusate Sodium (Colace) 200 mg Q12H PO ; Start 11/19/16 at 23:00 ALONSO MARTINEZ MD Nov 19, 2016 20:15
[2016-11-19] MEDS: ATORVASTATIN 10 MG TAB PO SCH (20:40)
[2016-11-19] MEDS: FAMOTIDINE 20 MG TAB PO SCH (20:43)
[2016-11-19] MEDS: IPRATROPIUM (HFA) 12.9 GM INHALER INH PRN (21:52)
[2016-11-19] MEDS: ALBUTEROL HFA 8 GM INHALER INH SCH (21:52)
[2016-11-19] MEDS: FENTAnyl (DRIP) 1000 mcg/100mL 100 ML IV SCH (23:47)
[2016-11-19] MEDS: DOCUSATE SODIUM 100 MG CAP PO SCH (23:47)
[2016-11-20] VITALS (45 sets, daily range): BP systolic 82–110; BP diastolic 50–73; PULSE 71–89; RESP 26
[2016-11-20] MEDS: HEPARIN 25000 UNITS/250 ML 250 ML IV SCH (00:35)
[2016-11-20] MEDS: INSULIN ASPART [NOVOLOG] 3 ML PEN SC SCH ×5 (01:00→18:00)
[2016-11-20] MEDS: IPRATROPIUM (HFA) 12.9 GM INHALER INH PRN ×2 (01:26→05:28)
[2016-11-20] MEDS: ALBUTEROL HFA 8 GM INHALER INH SCH ×6 (01:26→19:57)
[2016-11-20] MEDS: DEXTROSE 50% 50 ML SYRINGE IV PRN (02:28)
[2016-11-20] MEDS: PROPOFOL 100 ML IV SCH ×4 (03:57→20:12)
[2016-11-20] MEDS: CEFEPIME 1GM/50 ML (PMX) 50 ML IVPB SCH (05:38)
[2016-11-20 06:25] LABS: ADD SCAN DIFF NO
[2016-11-20 06:39] LABS: ABNORMAL IP MESSAGE 1; BASOPHILS % 0.2 % (0.0-2.0); EOSINOPHILS # 0.1 10^3/ul (0.0-0.5); EOSINOPHILS % 0.8 % (0.0-7.0); HEMATOCRIT 28.2 % (42.0-52.0); LYMPHOCYTES # 0.5 10^3/ul (0.8-2.9); LYMPHOCYTES % 8.2 % (15.0-51.0); MEAN CORPUSCULAR HGB CONC 31.9 g/dl (32.0-37.0); MEAN CORPUSCULAR VOLUME 78.3 fl (82.0-101.0); MEAN PLATELET VOLUME 10.3 fl (7.4-10.4); MONOCYTE # 0.3 10^3/ul (0.3-0.9); MONOCYTES % 4.2 % (0.0-11.0); NEUTROPHIL # 5.3 10^3/ul (1.6-7.5); NEUTROPHILS % 85.9 % (39.0-77.0); PLATELET COUNT 119 10^3/UL (140-415); RED CELL DISTRIBUTION WIDTH 19.3 % (11.5-14.5); WHITE BLOOD COUNT 6.1 10^3/ul (4.8-10.8)
[2016-11-20 06:56] LABS: POTASSIUM 4.6 mmol/L (3.5-5.1)
[2016-11-20 06:59] LABS: CREATININE 2.96 mg/dl (0.61-1.24)
[2016-11-20] MEDS: LACTOBACILLUS CHEW TAB PO SCH ×3 (08:23→21:28)
[2016-11-20] MEDS: FERROUS SULFATE 60 MG/ML 5ML CUP GTB SCH ×2 (08:23→21:28)
[2016-11-20] MEDS: VITAMIN E 400 UNITS CAP PO SCH (08:23)
[2016-11-20] MEDS: ZINC SULFATE 220 MG CAP PO SCH (08:23)
[2016-11-20] MEDS: SEVELAMER CARBONATE 0.8 GM PKT PO SCH ×3 (08:23→17:25)
[2016-11-20] MEDS: FISH OIL 1,000 MG CAP PO SCH (08:23)
[2016-11-20] MEDS: PYRIDOXINE 50 MG TAB PO SCH (08:24)
[2016-11-20] MEDS: MULTIVITAMINS THERAPEUTIC TAB PO SCH (08:24)
[2016-11-20] MEDS: FLUOXETINE 20 MG CAP PO SCH (08:24)
[2016-11-20] MEDS: CHOLECALCIFEROL 1,000 UNIT TAB PO SCH (08:24)
[2016-11-20] MEDS: POTASSIUM CHLORIDE (SR) 20 MEQ TAB PO SCH (08:24)
[2016-11-20] MEDS: ALLOPURINOL 100 MG TAB PO SCH (08:24)
[2016-11-20] MEDS: METOPROLOL 25 MG TAB PO SCH ×2 (08:30→21:00)
[2016-11-20] MEDS: PREGABALIN 25 MG CAP PO SCH ×3 (08:30→21:28)
[2016-11-20] MEDS: IPRATROPIUM (HFA) 12.9 GM INHALER INH SCH ×3 (08:46→19:56)
[2016-11-20] MEDS: ASPIRIN (EC) 81 MG TAB PO SCH (09:00)
--- NOTE | 2016-11-20 10:10 | RADRPT ---
PROCEDURE: XR Chest. CLINICAL INDICATION: 61-year-old male with pneumonia. TECHNIQUE: Single frontal view of the chest was obtained COMPARISON: Chest x-ray 11/19/2016 06:50 a.m. FINDINGS: The soft tissues are normal. There are degenerative osteophytes in the thoracic spine. There is a large bore central venous catheter with its tip in the proximal right atrium. There is no pneumotho rax. The heart is enlarged. The cardiomediastinal silhouette, pulmonary vasculature and hilar stru ctures are normal. There is a less aorta. The endotracheal tube is positioned at T4. The central v enous catheter entering from a left internal jugular approach on the prior exam has been withdrawn s lightly with its tip now projecting medial to the aortic arch. There are asymmetric bilateral pulmon bhaskar perihilar and basilar infiltrates which are little changed. A left pleural effusion is suspecte d IMPRESSION: 1. There has been no significant change in the bilateral perihilar and basilar infiltrates and right pleural effusion when compared to 11/19/2016. 2. Cardiomegaly. 3. Large bore central venous catheter with its distal tip in the right atrium. 4. Satisfactory positioning of the endotracheal tube and NG tube. 5. The small bore central venous catheter entering from a left internal jugular approach moved over the interval with its tip now projecting medial to the aortic arch in the area of the brachiocephal ic vein. RPTAT:AAJJ Physician Humberto Date Time Electronically viewed and signed by Physician Humberto on 11/20/2016 10:10 MAGDIEL/
--- NOTE | 2016-11-20 10:41 | PN ---
Date/Time of Note Date/Time of Note DATE: 11/20/16 TIME: 10:39 Assessment/Plan VTE Prophylaxis VTE Prophylaxis Intervention: heparin Lines/Catheters IV [facility] perm cath Urinary Cath still in place: No Assessment/Plan Assessment/Plan A 61-year-old male with a history of type 2 diabetes, peripheral vascular disease, prior respiratory insufficiency, end-stage renal disease, on dialysis, who presents with a cough for 1 week and SOB managed as follows: 1. Hypoxemic / Hypercapnic resp failure / Vent dependent 2. CHF exacerbation diastolic 3. Moderate tricuspid regurgitation 4. Pulmonary hypertension 5. ESRD on HD 6. Morbid obesity / cannot r/o OHS 7. COPD 8. HTN 9. Paroxysmal Afib 10. DM2 11. Chronic depression 12. Hx of Chronic foot ulcer with osteomyelitis 13. Hx of PVD / Gout 14. Pancytopenia with microcytosis: mild iron deficiency noted PLAN: * Continue daily dialysis * Continue Vent support and mgt/ patient stil requiring 100% o2 / did not tolerate weaning today * Continue broad spectrum abx / heparin drip * add scheduled bronchodilator therapy * Continue SSI / start tube feeds at low rate * ?iron replacement therapy * Will order CT chest to properly define lung parenchyma * continue icu supportive care PROPHYLAXIS: Heparin / PPI CRITICAL CARE TIME: >35 mins Subjective Subjective 24 Hr Interval Summary Free Text/Dictation Patient seen and examined. Intubated and sedated for comfort, Subjective hx not possible: pt critical status Exam/Review of Systems Vital Signs Vitals Vital Signs Date Time Temp Pulse Resp B/P Pulse Ox O2 Delivery O2 Flow Rate FiO2 11/20/16 10:00 78 102/61 96 Mechanical Ventilator 11/20/16 08:00 100 11/20/16 08:00 98.4 11/20/16 05:20 26 11/17/16 13:04 15.0 Intake and Output 11/19/16 11/19/16 11/20/16 15:00 23:00 07:00 Intake Total 620 ml 266.4 ml 181.1 ml Output Total 3500 ml Balance -2880 ml 266.4 ml 181.1 ml Exam Constitutional: obese, oriented, No alert Psych: other (unable to assess) Head: normocephalic Eyes: PERRL ENMT: intubated Respiratory: diminished breath sounds, No wheezing Cardiovascular: regular rate and rhythm, No murmurs/extra sounds Gastrointestinal: bowel sounds, other (protuberant), soft Musculoskeletal: No nl extremities to inspection Extremities: edema 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: lethargic Skin: other (erythematous skin in both lower extremities with mild diffuse non pitting edema and chronic keratotic skin changes and toe ulcer) Results Result Diagram: 11/20/16 0620 11/20/16 0620 Results 24 hrs Laboratory Tests Test 11/19/16 11:52 11/19/16 13:36 11/19/16 16:41 11/19/16 17:03 Bedside Glucose 74 58 L 114 Activated Partial Thromboplast Time 122.1 *H Test 11/19/16 18:55 11/19/16 21:35 11/19/16 22:38 11/19/16 23:27 Arterial Blood HCO3 26.0 Arterial Blood Base Excess -0.2 Arterial Blood Oxygen Saturation 86.8 L Khoi Test ACCEPTAB Arterial Blood Gas Puncture Site Right Radial Arterial Blood Carboxyhemoglobin 0.2 Arterial Blood Date Drawn 11/19/2016 7:24:38 PM Arterial Blood Methemoglobin 0.3 Arterial Blood pCO2 (Temp correct) 48.7 H Arterial Blood pH (Temp corrected) 7.345 L Arterial Blood pO2 (Temp corrected) 57.1 L Blood Gas A-a O2 Differential 607.2 H Blood Gas Actual Respiration Rate 28 Blood Gas Inspiratory Pressure 28.0 Blood Gas Inspiratory Time 0.75 Blood Gas Low PEEP Setting 8.0 Blood Gas Modality VENT - VC+ Blood Gas Notified Time 11/19/2016 7:36:18 PM Blood Gas Notified Whom RTR Blood Gas Respiration Rate 26.0 Blood Gas Specimen Source Blood arterial Blood Gas Temperature 37.0 Blood Gas Tidal Volume 500.0 FiO2 100.0 Oxyhemoglobin Percent 86.4 L Total Hemoglobin 12.1 Bedside Glucose 70 142 Activated Partial Thromboplast Time 113.8 *H Test 11/20/16 02:23 11/20/16 03:35 11/20/16 05:36 11/20/16 06:20 Bedside Glucose 74 93 79 Activated Partial Thromboplast Time 66.0 H Anion Gap 16 Basophils # 0.0 Basophils % 0.2 Blood Urea Nitrogen 75 H Calcium Level 8.0 L Carbon Dioxide Level 28 Chloride Level 99 Creatinine 2.96 H Eosinophils # 0.1 Eosinophils % 0.8 Glucose Level 78 Hematocrit 28.2 L Hemoglobin 9.0 L Lymphocytes # 0.5 L Lymphocytes % 8.2 L Mean Corpuscular Hemoglobin 25.0 L Mean Corpuscular Hemoglobin Concent 31.9 L Mean Corpuscular Volume 78.3 L Mean Platelet Volume 10.3 Monocytes # 0.3 Monocytes % 4.2 Neutrophils # 5.3 Neutrophils % 85.9 H Nucleated Red Blood Cells # 0.0 Nucleated Red Blood Cells % 0.0 Platelet Count 119 L Potassium Level 4.6 Red Blood Count 3.60 L Red Cell Distribution Width 19.3 H Sodium Level 138 White Blood Count 6.1 # Test 11/20/16 08:11 Bedside Glucose 74 Medications Medications Current Medications Ondansetron HCl (Zofran Inj) 4 mg Q6H PRN IV NAUSEA AND/OR VOMITING; Start 11/17 at 11:00 Acetaminophen/ Hydrocodone Bitart ([place] (5/325)) 1 tab Q6H PRN PO MODERATE PAIN LEVEL 4-6; Start 11/17/16 at 11:00 Morphine Sulfate (morphine) 2 mg Q4H PRN IV SEVERE PAIN LEVEL 7-10; Start at 11:00 Magnesium Hydroxide (Milk Of Mag) 30 ml DAILY PRN PO CONSTIPATION; Start at 11:00 Sodium Biphosphate/ Sodium Phosphate (Fleet Enema) 133 ml DAILY PRN [place] CONSTIPATION; Start 11/17/16 at 11:00 Lorazepam (Ativan) 0.5 mg Q6H PRN IV ANXIETY Last administered on 11/18/16 07: 27; Admin Dose 0.5 MG; Start 11/17/16 at 11:00 Hydralazine HCl (Apresoline) 10 mg Q6H PRN IV ELEVATED BLOOD PRESSURE; Start at 11:00 Nitroglycerin (Nitroglycerin (Sl Tab) 0.4 Mg) 1 tab Q5M PRN SL ANGINA; Start at 11:00 Acetaminophen (Tylenol Tab) 650 mg Q6H PRN PO PAIN LEVEL 1-5; Start 11/17/16 at 11:00 Allopurinol (Zyloprim) 100 mg DAILY PO Last administered on 11/20/16 08:24; Admin Dose 100 MG; Start 11/18/16 at 09:00 Aspirin (Halfprin) 81 mg DAILY PO ; Start 11/18/16 at 09:00 Atorvastatin Calcium (Lipitor) 10 mg QHS PO Last administered on 11/19/16 20:40 ; Admin Dose 10 MG; Start 11/17/16 at 21:00 Famotidine (Pepcid) 20 mg Q24H PO Last administered on 11/19/16 20:43; Admin Dose 20 MG; Start 11/17/16 at 21:00 Lactobacillus Acidoph/Bulgaricus (Floranex) 1 tab TID PO Last administered on 08:23; Admin Dose 1 TAB; Start 11/17/16 at 13:00 Lorazepam (Ativan) 0.5 mg Q6 PRN PO ANXIETY Last administered on 11/18/16 11:04 ; Admin Dose 0.5 MG; Start 11/17/16 at 11:00 Metoprolol Tartrate (Lopressor) 12.5 mg BID PO Last administered on 11/19/16 20 :43; Admin Dose 12.5 MG; Start 11/17/16 at 21:00 Fish Oil (Fish Oil) 1,000 mg DAILY PO Last administered on 11/20/16 08:23; Admin Dose 1,000 MG; Start 11/18/16 at 09:00 Potassium Chloride (Klor-Con 20) 40 meq DAILY PO Last administered on 11/20/16 08:24; Admin Dose 40 MEQ; Start 11/18/16 at 09:00 Pregabalin (Lyrica) 50 mg TID PO Last administered on 11/20/16 08:30; Admin Dose 50 MG; Start 11/17/16 at 13:00 Pyridoxine HCl (Vitamin B6) 100 mg DAILY PO Last administered on 11/20/16 08:24 ; Admin Dose 100 MG; Start 11/18/16 at 09:00 Simethicone (Mylicon) 80 mg Q6H PRN PO INTESTINAL SPASMS/CRAMPING; Start at 11:00 Vitamin E (Vitamin E) 400 units DAILY PO Last administered on 11/20/16 08:23; Admin Dose 400 UNITS; Start 11/18/16 at 09:00 Zolpidem Tartrate (Ambien) 10 mg QHS PRN PO INSOMNIA; Start 11/17/16 at 11:00 Fluoxetine HCl (Prozac) 20 mg DAILY PO Last administered on 11/20/16 08:24; Admin Dose 20 MG; Start 11/18/16 at 09:00 Al Hydrox/Mg Hydrox/Simethicone (Mag-Al Plus) 10 ml Q6 PRN PO DISTENSION/GAS/ BLOATING; Start 11/17/16 at 11:00 Vancomycin HCl (Vanco Iv Per Pharmacy) PER PHARMACY DOSING NOTE XX ; Start at 11:30 Insulin Aspart (Novolog Insulin Pen) NOVOLOG *MILD* ALGORI... Q4 SC ; Start 11/17 at 13:00 Miscellaneous Information 1 ea NOTE XX ; Start 11/17/16 at 11:30 Glucose (Glutose) 15 gm Q15M PRN PO DECREASED GLUCOSE; Start 11/17/16 at 11:30 Glucose (Glutose) 22.5 gm Q15M PRN PO DECREASED GLUCOSE; Start 11/17/16 at 11:30 Dextrose (D50w Syringe) 25 ml Q15M PRN IV DECREASED GLUCOSE Last administered on 11/20/16 02:28; Admin Dose 25 ML; Start 11/17/16 at 11:30 Dextrose (D50w Syringe) 50 ml Q15M PRN IV DECREASED GLUCOSE; Start 11/17/16 at 11:30 Glucagon (Glucagen) 1 mg Q15M PRN IM DECREASED GLUCOSE Last administered on 11/19 21:43; Admin Dose 1 MG; Start 11/17/16 at 11:30 Glucose 15 gm 15 gm Q15M PRN BUCCAL DECREASED GLUCOSE; Start 11/17/16 at 11:30 Cefepime HCl (Maxipime 1gm/50 ml (Pmx)) 50 ml @ 100 mls/hr Q24H IVPB Last administered on 11/20/16 05:38; Admin Dose 100 MLS/HR; Start 11/18/16 at 06:00 Guaifenesin (Robitussin Liquid Cup) 200 mg Q4H PRN PO COUGH; Start 11/17/16 at 16:00 Phenol (Cepastat Lozenge) 1 lozenge Q1H PRN MT cough; Start 11/17/16 at 16:00 Apixaban (Eliquis) 2.5 mg BID PO Last administered on 11/17/16 20:13; Admin Dose 2.5 MG; Start 11/17/16 at 21:00; Status Future Hold Bisacodyl (Dulcolax Supp) 10 mg Q24H PRN [place] CONSTIPATION; Start 11/17/16 at 16: 30 Cholecalciferol (Vitamin D) 1,000 unit DAILY PO Last administered on 11/20/16 08:24; Admin Dose 1,000 UNIT; Start 11/18/16 at 09:00 Diphenhydramine HCl (Benadryl) 25 mg BID PRN PO ITCHING; Start 11/17/16 at 16:30 Multivitamins Therapeutic (Theragran) 1 tab DAILY PO Last administered on 08:24; Admin Dose 1 TAB; Start 11/18/16 at 09:00 Zinc Sulfate 220 mg 220 mg DAILY PO Last administered on 11/20/16 08:23; Admin Dose 220 MG; Start 11/18/16 at 09:00 Propofol 100 ml @ 3.96 mls/hr Q12H IV Last administered on 11/20/16 03:57; Admin Dose 15.84 MLS/HR; Start 11/18/16 at 12:30 Fentanyl (Sublimaze) 100 ml @ 2.5 mls/hr TITRATE IV Last administered on 23:47; Admin Dose 2.5 MLS/HR; Start 11/18/16 at 12:30 Ferrous Sulfate (Feosol Liquid Cup) 300 mg BID GTB Last administered on 08:23; Admin Dose 300 MG; Start 11/18/16 at 21:00 Acetaminophen (Tylenol Liquid) 650 mg Q6 PRN NGT PAIN AND OR ELEVATED TEMP Last administered on 11/19/16 18:41; Admin Dose 650 MG; Start 11/19/16 at 03:30 Docusate Sodium (Colace) 200 mg Q12H PO Last administered on 11/19/16 23:47; Admin Dose 200 MG; Start 11/19/16 at 23:00 Procedures Procedures PROCEDURE: XR Chest. CLINICAL INDICATION: 61-year-old male with pneumonia. TECHNIQUE: Single frontal view of the chest was obtained COMPARISON: Chest x-ray 11/19/2016 06:50 a.m. FINDINGS: The soft tissues are normal. There are degenerative osteophytes in the thoracic spine. There is a large bore central venous catheter with its tip in the proximal right atrium. There is no pneumothorax. The heart is enlarged. The cardiomediastinal silhouette, pulmonary vasculature and hilar structures are normal. There is a less aorta. The endotracheal tube is positioned at T4. The central venous catheter entering from a left internal jugular approach on the prior exam has been withdrawn slightly with its tip now projecting medial to the aortic arch. There are asymmetric bilateral pulmonary perihilar and basilar infiltrates which are little changed. A left pleural effusion is suspected IMPRESSION: 1. There has been no significant change in the bilateral perihilar and basilar infiltrates and right pleural effusion when compared to 11/19/2016. 2. Cardiomegaly. 3. Large bore central venous catheter with its distal tip in the right atrium. 4. Satisfactory positioning of the endotracheal tube and NG tube. 5. The small bore central venous catheter entering from a left internal jugular approach moved over the interval with its tip now projecting medial to the aortic arch in the area of the brachiocephalic vein. RPTAT:AAJJ Physician Humberto Date Time Electronically viewed and signed by Physician Humberto on 11/20/2016 10:10 GERI LINDO Nov 20, 2016 10:41
--- NOTE | 2016-11-20 11:15 | CONS ---
Date/Time of Note Date/Time of Note DATE: 11/20/16 TIME: 11:13 Assessment/Plan Assessment/Plan Chief Complaint/Hosp Course SUBJECTIVE: No acute events. S/p fever last night, now afebrile, looks comfortable INDWELLINGS: Endotracheal tube, NG tube, right chest PermCath. ANTIMICROBIALS: The patient is on: 1. IV vancomycin. 2. Cefepime. PHYSICAL EXAMINATION: GENERAL: This is a morbidly obese, well-developed white man who is intubated, sedated, in no distress. HEENT: Head atraumatic, normocephalic. Sclerae anicteric. Buccal mucosa dry. NECK: Supple. CHEST: Rise symmetrical. Breath sounds diminished. HEART: S1, S2. ABDOMEN: Soft, bowel sounds present. EXTREMITIES: Bilateral lower extremity dressings intact. ASSESSMENT: 1. Acute respiratory failure, possibly aspiration event. 2. Fluid overload. 3. End-stage renal disease, hemodialysis dependent. 4. Bilateral lower extremities chronic venous stasis with a history of osteomyelitis. 5. Morbid obesity 6. Diabetes. 7. Chronic obstructive pulmonary disease. 8. Healthcare-associated pneumonia. PLAN: The patient remains hemodynamically stable. Will add Amikacin, await for sputum cx, continue vent support per pulmonary. DW staff Problems: Consultation Date/Type/Reason Admit Date/Time Nov 17, 2016 at 12:10 Initial Consult Date 11/17/16 Type of Consultation: ID Referring Provider: FELIX SCOTT Exam/Review of Systems Vital Signs Vitals Vital Signs Date Time Temp Pulse Resp B/P Pulse Ox O2 Delivery O2 Flow Rate FiO2 11/20/16 10:00 78 102/61 96 Mechanical Ventilator 11/20/16 08:00 100 11/20/16 08:00 98.4 11/20/16 05:20 26 11/17/16 13:04 15.0 Intake and Output 11/19/16 11/19/16 11/20/16 15:00 23:00 07:00 Intake Total 620 ml 266.4 ml 181.1 ml Output Total 3500 ml Balance -2880 ml 266.4 ml 181.1 ml Results Result Diagram: 11/20/16 0620 11/20/16 0620 Results 24 hrs Laboratory Tests Test 11/19/16 11:52 11/19/16 13:36 11/19/16 16:41 11/19/16 17:03 Bedside Glucose 74 58 L 114 Activated Partial Thromboplast Time 122.1 *H Test 11/19/16 18:55 11/19/16 21:35 11/19/16 22:38 11/19/16 23:27 Arterial Blood HCO3 26.0 Arterial Blood Base Excess -0.2 Arterial Blood Oxygen Saturation 86.8 L Khoi Test ACCEPTAB Arterial Blood Gas Puncture Site Right Radial Arterial Blood Carboxyhemoglobin 0.2 Arterial Blood Date Drawn 11/19/2016 7:24:38 PM Arterial Blood Methemoglobin 0.3 Arterial Blood pCO2 (Temp correct) 48.7 H Arterial Blood pH (Temp corrected) 7.345 L Arterial Blood pO2 (Temp corrected) 57.1 L Blood Gas A-a O2 Differential 607.2 H Blood Gas Actual Respiration Rate 28 Blood Gas Inspiratory Pressure 28.0 Blood Gas Inspiratory Time 0.75 Blood Gas Low PEEP Setting 8.0 Blood Gas Modality VENT - VC+ Blood Gas Notified Time 11/19/2016 7:36:18 PM Blood Gas Notified Whom RTR Blood Gas Respiration Rate 26.0 Blood Gas Specimen Source Blood arterial Blood Gas Temperature 37.0 Blood Gas Tidal Volume 500.0 FiO2 100.0 Oxyhemoglobin Percent 86.4 L Total Hemoglobin 12.1 Bedside Glucose 70 142 Activated Partial Thromboplast Time 113.8 *H Test 11/20/16 02:23 11/20/16 03:35 11/20/16 05:36 11/20/16 06:20 Bedside Glucose 74 93 79 Activated Partial Thromboplast Time 66.0 H Anion Gap 16 Basophils # 0.0 Basophils % 0.2 Blood Urea Nitrogen 75 H Calcium Level 8.0 L Carbon Dioxide Level 28 Chloride Level 99 Creatinine 2.96 H Eosinophils # 0.1 Eosinophils % 0.8 Glucose Level 78 Hematocrit 28.2 L Hemoglobin 9.0 L Lymphocytes # 0.5 L Lymphocytes % 8.2 L Mean Corpuscular Hemoglobin 25.0 L Mean Corpuscular Hemoglobin Concent 31.9 L Mean Corpuscular Volume 78.3 L Mean Platelet Volume 10.3 Monocytes # 0.3 Monocytes % 4.2 Neutrophils # 5.3 Neutrophils % 85.9 H Nucleated Red Blood Cells # 0.0 Nucleated Red Blood Cells % 0.0 Platelet Count 119 L Potassium Level 4.6 Red Blood Count 3.60 L Red Cell Distribution Width 19.3 H Sodium Level 138 White Blood Count 6.1 # Test 11/20/16 08:11 Bedside Glucose 74 Medications Medications Current Medications Ondansetron HCl (Zofran Inj) 4 mg Q6H PRN IV NAUSEA AND/OR VOMITING; Start 11/17 at 11:00 Acetaminophen/ Hydrocodone Bitart ([place] (5/325)) 1 tab Q6H PRN PO MODERATE PAIN LEVEL 4-6; Start 11/17/16 at 11:00 Morphine Sulfate (morphine) 2 mg Q4H PRN IV SEVERE PAIN LEVEL 7-10; Start at 11:00 Magnesium Hydroxide (Milk Of Mag) 30 ml DAILY PRN PO CONSTIPATION; Start at 11:00 Sodium Biphosphate/ Sodium Phosphate (Fleet Enema) 133 ml DAILY PRN [place] CONSTIPATION; Start 11/17/16 at 11:00 Lorazepam (Ativan) 0.5 mg Q6H PRN IV ANXIETY Last administered on 11/18/16 07: 27; Admin Dose 0.5 MG; Start 11/17/16 at 11:00 Hydralazine HCl (Apresoline) 10 mg Q6H PRN IV ELEVATED BLOOD PRESSURE; Start at 11:00 Nitroglycerin (Nitroglycerin (Sl Tab) 0.4 Mg) 1 tab Q5M PRN SL ANGINA; Start at 11:00 Acetaminophen (Tylenol Tab) 650 mg Q6H PRN PO PAIN LEVEL 1-5; Start 11/17/16 at 11:00 Allopurinol (Zyloprim) 100 mg DAILY PO Last administered on 11/20/16 08:24; Admin Dose 100 MG; Start 11/18/16 at 09:00 Aspirin (Halfprin) 81 mg DAILY PO ; Start 11/18/16 at 09:00 Atorvastatin Calcium (Lipitor) 10 mg QHS PO Last administered on 11/19/16 20:40 ; Admin Dose 10 MG; Start 11/17/16 at 21:00 Famotidine (Pepcid) 20 mg Q24H PO Last administered on 11/19/16 20:43; Admin Dose 20 MG; Start 11/17/16 at 21:00 Lactobacillus Acidoph/Bulgaricus (Floranex) 1 tab TID PO Last administered on 08:23; Admin Dose 1 TAB; Start 11/17/16 at 13:00 Lorazepam (Ativan) 0.5 mg Q6 PRN PO ANXIETY Last administered on 11/18/16 11:04 ; Admin Dose 0.5 MG; Start 11/17/16 at 11:00 Metoprolol Tartrate (Lopressor) 12.5 mg BID PO Last administered on 11/19/16 20 :43; Admin Dose 12.5 MG; Start 11/17/16 at 21:00 Fish Oil (Fish Oil) 1,000 mg DAILY PO Last administered on 11/20/16 08:23; Admin Dose 1,000 MG; Start 11/18/16 at 09:00 Potassium Chloride (Klor-Con 20) 40 meq DAILY PO Last administered on 11/20/16 08:24; Admin Dose 40 MEQ; Start 11/18/16 at 09:00 Pregabalin (Lyrica) 50 mg TID PO Last administered on 11/20/16 08:30; Admin Dose 50 MG; Start 11/17/16 at 13:00 Pyridoxine HCl (Vitamin B6) 100 mg DAILY PO Last administered on 11/20/16 08:24 ; Admin Dose 100 MG; Start 11/18/16 at 09:00 Simethicone (Mylicon) 80 mg Q6H PRN PO INTESTINAL SPASMS/CRAMPING; Start at 11:00 Vitamin E (Vitamin E) 400 units DAILY PO Last administered on 11/20/16 08:23; Admin Dose 400 UNITS; Start 11/18/16 at 09:00 Zolpidem Tartrate (Ambien) 10 mg QHS PRN PO INSOMNIA; Start 11/17/16 at 11:00 Fluoxetine HCl (Prozac) 20 mg DAILY PO Last administered on 11/20/16 08:24; Admin Dose 20 MG; Start 11/18/16 at 09:00 Al Hydrox/Mg Hydrox/Simethicone (Mag-Al Plus) 10 ml Q6 PRN PO DISTENSION/GAS/ BLOATING; Start 11/17/16 at 11:00 Vancomycin HCl (Vanco Iv Per Pharmacy) PER PHARMACY DOSING NOTE XX ; Start at 11:30 Insulin Aspart (Novolog Insulin Pen) NOVOLOG *MILD* ALGORI... Q4 SC ; Start 11/17 at 13:00 Miscellaneous Information 1 ea NOTE XX ; Start 11/17/16 at 11:30 Glucose (Glutose) 15 gm Q15M PRN PO DECREASED GLUCOSE; Start 11/17/16 at 11:30 Glucose (Glutose) 22.5 gm Q15M PRN PO DECREASED GLUCOSE; Start 11/17/16 at 11:30 Dextrose (D50w Syringe) 25 ml Q15M PRN IV DECREASED GLUCOSE Last administered on 11/20/16 02:28; Admin Dose 25 ML; Start 11/17/16 at 11:30 Dextrose (D50w Syringe) 50 ml Q15M PRN IV DECREASED GLUCOSE; Start 11/17/16 at 11:30 Glucagon (Glucagen) 1 mg Q15M PRN IM DECREASED GLUCOSE Last administered on 11/19 21:43; Admin Dose 1 MG; Start 11/17/16 at 11:30 Glucose 15 gm 15 gm Q15M PRN BUCCAL DECREASED GLUCOSE; Start 11/17/16 at 11:30 Cefepime HCl (Maxipime 1gm/50 ml (Pmx)) 50 ml @ 100 mls/hr Q24H IVPB Last administered on 11/20/16 05:38; Admin Dose 100 MLS/HR; Start 11/18/16 at 06:00 Guaifenesin (Robitussin Liquid Cup) 200 mg Q4H PRN PO COUGH; Start 11/17/16 at 16:00 Phenol (Cepastat Lozenge) 1 lozenge Q1H PRN MT cough; Start 11/17/16 at 16:00 Apixaban (Eliquis) 2.5 mg BID PO Last administered on 11/17/16 20:13; Admin Dose 2.5 MG; Start 11/17/16 at 21:00; Status Future Hold Bisacodyl (Dulcolax Supp) 10 mg Q24H PRN [place] CONSTIPATION; Start 11/17/16 at 16: 30 Cholecalciferol (Vitamin D) 1,000 unit DAILY PO Last administered on 11/20/16 08:24; Admin Dose 1,000 UNIT; Start 11/18/16 at 09:00 Diphenhydramine HCl (Benadryl) 25 mg BID PRN PO ITCHING; Start 11/17/16 at 16:30 Multivitamins Therapeutic (Theragran) 1 tab DAILY PO Last administered on 08:24; Admin Dose 1 TAB; Start 11/18/16 at 09:00 Zinc Sulfate 220 mg 220 mg DAILY PO Last administered on 11/20/16 08:23; Admin Dose 220 MG; Start 11/18/16 at 09:00 Propofol 100 ml @ 3.96 mls/hr Q12H IV Last administered on 11/20/16 11:12; Admin Dose 15.84 MLS/HR; Start 11/18/16 at 12:30 Fentanyl (Sublimaze) 100 ml @ 2.5 mls/hr TITRATE IV Last administered on 23:47; Admin Dose 2.5 MLS/HR; Start 11/18/16 at 12:30 Ferrous Sulfate (Feosol Liquid Cup) 300 mg BID GTB Last administered on 08:23; Admin Dose 300 MG; Start 11/18/16 at 21:00 Acetaminophen (Tylenol Liquid) 650 mg Q6 PRN NGT PAIN AND OR ELEVATED TEMP Last administered on 11/19/16 18:41; Admin Dose 650 MG; Start 11/19/16 at 03:30 Docusate Sodium (Colace) 200 mg Q12H PO Last administered on 11/19/16 23:47; Admin Dose 200 MG; Start 11/19/16 at 23:00 JAMEY VAZQUEZ NP Nov 20, 2016 11:15
[2016-11-20] MEDS: DOCUSATE SODIUM 100 MG CAP PO SCH (11:27)
[2016-11-20] MEDS ORDERED: AMIKACIN IV PER PHARMACY XX SCH (11:30)
--- NOTE | 2016-11-20 13:13 | PN ---
DATE: 11/20/2016 SUBJECTIVE: Patient remains intubated on mechanical ventilation, no vasopressor support. PHYSICAL EXAMINATION: PRESENT VITAL SIGNS: Temperature 98, pulse is 78, blood pressure 99/59, O2 saturation 96% on 100% F IO2. There was desaturation last night requiring bag and valve ventilation. Orally intubated. NECK: Supple. No JVD or lymphadenopathy. CARDIAC EXAMINATION: S1, S2. A 2/6 systolic ejection murmur. CHEST: Diminished air entry bilaterally . ABDOMEN: Obese, soft, nontender, no guarding or rebound. EXTREMITIES: No cyanosis, clubbing, 3+ edema with chronic venostasis changes. LABORATORY DATA: White count 6.1, hemoglobin 9, platelets of 119, BUN 75, creatinine 2.96. PTT is 66. ABG yesterday pH 7.34, pCO2 of 45, pAO2 of 57 on 100% FIO2. IMAGING: Chest x-ray was reviewed, shows extensive bilateral infiltrates. IMPRESSION AND PLAN: 1. Hypoxemic respiratory failure. 2. Likely healthcare-associated pneumonia. 3. Severe sepsis. 4. Dysphagia. 5. History of pulmonary hypertension. 6. End-stage renal failure on hemodialysis. The patient will require: 1. Hemodialysis with volume removal. 2. Broad-spectrum antibiotic coverage. 3. Mechanical ventilation. 4. Tube feeding. 5. Palliative care consultation. His overall prognosis is poor and discussion about code status seems appropriate. Dictated By: EDNA COLINDRES/GREGORY Conf#: [id number] DID#: [id number]
[2016-11-20] MEDS ORDERED: SOD CHLORIDE 0.9% IVPB SCH (13:30)
[2016-11-20] MEDS ORDERED: AMIKACIN IVPB SCH (13:30)
--- NOTE | 2016-11-20 19:02 | RADRPT ---
PROCEDURE: CT Chest without contrast. CLINICAL INDICATION: Respiratory failure, pneumonia. TECHNIQUE: A CT scan of the chest without contrast was performed. Coronal and sagittal reformatted images were obtained from the axial source images. CTDIvol: 16.18 mGy. DLP: 642.78 mGy-cm. One or more of the following dose reduction techniques were used: - Automated exposure control. - Adjustment of the mA and/or kV according to patient size. - Use of iterative reconstruction technique. COMPARISON: None. FINDINGS: An endotracheal tube terminates in the thoracic trachea. The trachea and mainstem bronchi are paten t. There are small bilateral pleural effusions. There is consolidation with air bronchograms is not ed in both lower lobes, right more than left. There is also extensive patchy consolidation with air bronchograms in the bilateral upper lobes, right middle lobe, and lingula. Patchy ground-glass opa cities and interlobular septal thickening are also noted in both upper lobes. No pneumothorax is id entified. There is no suspicious thyroid lesion. There is anterior and middle mediastinal lymphadenopathy. Th e heart is not enlarged. There is no pericardial effusion. There is low-attenuation blood the hear t and aorta. The main pulmonary artery is dilated (4.5 cm). Ascites is noted in the upper abdomen. There is no suspicious osseous lesion. IMPRESSION: 1. Extensive multifocal consolidation with air bronchograms, most prominent both lower lobes, right more than left. This is most consistent with pneumonia. There are also ground-glass opacities and interlobular septal thickening in both upper lobes, raising the possibility of superimposed pulmonar y edema. 2. Small bilateral pleural effusions. 3. Low-attenuation blood in the heart and aorta, suggestive of anemia. Correlation with CBC is rec ommended. 4. Dilated main pulmonary artery, suggestive of pulmonary hypertension. 5. Anterior and middle mediastinal lymphadenopathy, nonspecific but possibly representing a reactiv e process versus a neoplastic process such as lymphoma. 6. Abdominal ascites. RPTAT: HTAR .Wan Holder MD, Date Time Electronically viewed and signed by .Wan Holder MD, on 11/20/2016 19:01 .R/
--- NOTE | 2016-11-20 20:19 | CONS ---
Date/Time of Note Date/Time of Note DATE: 11/20/16 TIME: 20:16 Assessment/Plan Assessment/Plan Additional Assessment/Plan Hold HD today till pts' BP & Resp status is more stable Cont'd Hospitalization Reason: Tial of Mycolog for the skin cream Consultation Date/Type/Reason Admit Date/Time Nov 17, 2016 at 12:10 Initial Consult Date 11/17/16 Type of Consultation: renal Reason for Consultation Sedated Referring Provider: FELIX SCOTT 24 HR Interval Summary Subjective hx not possible: pt non-verbal Constitutional: improved Exam/Review of Systems Vital Signs Vitals Vital Signs Date Time Temp Pulse Resp B/P Pulse Ox O2 Delivery O2 Flow Rate FiO2 11/20/16 18:00 80 91/58 98 Mechanical Ventilator 11/20/16 16:55 26 100 11/20/16 16:00 98.2 11/17/16 13:04 15.0 Intake and Output 11/19/16 11/19/16 11/20/16 15:00 23:00 07:00 Intake Total 620 ml 266.4 ml 181.1 ml Output Total 3500 ml Balance -2880 ml 266.4 ml 181.1 ml Exam Constitutional: alert, oriented, well developed Psych: nl mood/affect, no complaints Head: atraumatic, normocephalic Eyes: EOMI, PERRL, nl conjunctiva, nl lids, nl sclera ENMT: nl external ears & nose, nl lips & teeth, nl nasal mucosa & septum Neck: non-tender, supple Respiratory: clear to auscultation, normal air movement Cardiovascular: nl pulses, regular rate and rhythm Gastrointestinal: distended, nl liver, spleen, non-tender, soft Musculoskeletal: nl extremities to inspection, nl gait and stance Extremities: normal pulses, other (changes of ch dermatitis both legs, fungal) 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: [employer] 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, nl mental status, nl speech, nl strength Skin: nl turgor, No rash or lesions Lymph: nl lymph nodes Results Result Diagram: 11/20/16 0620 11/20/16 0620 Results 24 hrs Laboratory Tests Test 11/19/16 21:35 11/19/16 22:38 11/19/16 23:27 11/20/16 02:23 Bedside Glucose 70 142 74 Activated Partial Thromboplast Time 113.8 *H Test 11/20/16 03:35 11/20/16 05:36 11/20/16 06:20 11/20/16 08:11 Bedside Glucose 93 79 74 Activated Partial Thromboplast Time 66.0 H Anion Gap 16 Basophils # 0.0 Basophils % 0.2 Blood Urea Nitrogen 75 H Calcium Level 8.0 L Carbon Dioxide Level 28 Chloride Level 99 Creatinine 2.96 H Eosinophils # 0.1 Eosinophils % 0.8 Glucose Level 78 Hematocrit 28.2 L Hemoglobin 9.0 L Lymphocytes # 0.5 L Lymphocytes % 8.2 L Mean Corpuscular Hemoglobin 25.0 L Mean Corpuscular Hemoglobin Concent 31.9 L Mean Corpuscular Volume 78.3 L Mean Platelet Volume 10.3 Monocytes # 0.3 Monocytes % 4.2 Neutrophils # 5.3 Neutrophils % 85.9 H Nucleated Red Blood Cells # 0.0 Nucleated Red Blood Cells % 0.0 Platelet Count 119 L Potassium Level 4.6 Red Blood Count 3.60 L Red Cell Distribution Width 19.3 H Sodium Level 138 White Blood Count 6.1 # Test 11/20/16 12:02 11/20/16 15:47 11/20/16 16:15 Bedside Glucose 77 74 Activated Partial Thromboplast Time 72.4 *H Medications Medications Current Medications Ondansetron HCl (Zofran Inj) 4 mg Q6H PRN IV NAUSEA AND/OR VOMITING; Start 11/17 at 11:00 Acetaminophen/ Hydrocodone Bitart ([place] (5/325)) 1 tab Q6H PRN PO MODERATE PAIN LEVEL 4-6; Start 11/17/16 at 11:00 Morphine Sulfate (morphine) 2 mg Q4H PRN IV SEVERE PAIN LEVEL 7-10; Start at 11:00 Magnesium Hydroxide (Milk Of Mag) 30 ml DAILY PRN PO CONSTIPATION; Start at 11:00 Sodium Biphosphate/ Sodium Phosphate (Fleet Enema) 133 ml DAILY PRN [place] CONSTIPATION; Start 11/17/16 at 11:00 Lorazepam (Ativan) 0.5 mg Q6H PRN IV ANXIETY Last administered on 11/18/16t 07: 27; Admin Dose 0.5 MG; Start 11/17/16 at 11:00 Hydralazine HCl (Apresoline) 10 mg Q6H PRN IV ELEVATED BLOOD PRESSURE; Start at 11:00 Nitroglycerin (Nitroglycerin (Sl Tab) 0.4 Mg) 1 tab Q5M PRN SL ANGINA; Start at 11:00 Acetaminophen (Tylenol Tab) 650 mg Q6H PRN PO PAIN LEVEL 1-5; Start 11/17/16 at 11:00 Allopurinol (Zyloprim) 100 mg DAILY PO Last administered on 11/20/16 08:24; Admin Dose 100 MG; Start 11/18/16 at 09:00 Aspirin (Halfprin) 81 mg DAILY PO ; Start 11/18/16 at 09:00 Atorvastatin Calcium (Lipitor) 10 mg QHS PO Last administered on 11/19/16 20:40 ; Admin Dose 10 MG; Start 11/17/16 at 21:00 Famotidine (Pepcid) 20 mg Q24H PO Last administered on 11/19/16 20:43; Admin Dose 20 MG; Start 11/17/16 at 21:00 Lactobacillus Acidoph/Bulgaricus (Floranex) 1 tab TID PO Last administered on 13:00; Admin Dose 1 TAB; Start 11/17/16 at 13:00 Lorazepam (Ativan) 0.5 mg Q6 PRN PO ANXIETY Last administered on 11/18/16 11:04 ; Admin Dose 0.5 MG; Start 11/17/16 at 11:00 Metoprolol Tartrate (Lopressor) 12.5 mg BID PO Last administered on 11/19/16 20 :43; Admin Dose 12.5 MG; Start 11/17/16 at 21:00 Fish Oil (Fish Oil) 1,000 mg DAILY PO Last administered on 11/20/16 08:23; Admin Dose 1,000 MG; Start 11/18/16 at 09:00 Potassium Chloride (Klor-Con 20) 40 meq DAILY PO Last administered on 11/20/16 08:24; Admin Dose 40 MEQ; Start 11/18/16 at 09:00 Pregabalin (Lyrica) 50 mg TID PO Last administered on 11/20/16 13:00; Admin Dose 50 MG; Start 11/17/16 at 13:00 Pyridoxine HCl (Vitamin B6) 100 mg DAILY PO Last administered on 3/7/17at 08:24 ; Admin Dose 100 MG; Start 11/18/16 at 09:00 Simethicone (Mylicon) 80 mg Q6H PRN PO INTESTINAL SPASMS/CRAMPING; Start at 11:00 Vitamin E (Vitamin E) 400 units DAILY PO Last administered on 11/20/16 08:23; Admin Dose 400 UNITS; Start 11/18/16 at 09:00 Zolpidem Tartrate (Ambien) 10 mg QHS PRN PO INSOMNIA; Start 11/17/16 at 11:00 Fluoxetine HCl (Prozac) 20 mg DAILY PO Last administered on 11/20/16 08:24; Admin Dose 20 MG; Start 11/18/16 at 09:00 Al Hydrox/Mg Hydrox/Simethicone (Mag-Al Plus) 10 ml Q6 PRN PO DISTENSION/GAS/ BLOATING; Start 11/17/16 at 11:00 Vancomycin HCl (Vanco Iv Per Pharmacy) PER PHARMACY DOSING NOTE XX ; Start at 11:30 Miscellaneous Information 1 ea NOTE XX ; Start 11/17/16 at 11:30 Glucose (Glutose) 15 gm Q15M PRN PO DECREASED GLUCOSE; Start 11/17/16 at 11:30 Glucose (Glutose) 22.5 gm Q15M PRN PO DECREASED GLUCOSE; Start 11/17/16 at 11:30 Dextrose (D50w Syringe) 25 ml Q15M PRN IV DECREASED GLUCOSE Last administered on 11/20/16 02:28; Admin Dose 25 ML; Start 11/17/16 at 11:30 Dextrose (D50w Syringe) 50 ml Q15M PRN IV DECREASED GLUCOSE; Start 11/17/16 at 11:30 Glucagon (Glucagen) 1 mg Q15M PRN IM DECREASED GLUCOSE Last administered on 11/19 21:43; Admin Dose 1 MG; Start 11/17/16 at 11:30 Glucose 15 gm 15 gm Q15M PRN BUCCAL DECREASED GLUCOSE; Start 11/17/16 at 11:30 Cefepime HCl (Maxipime 1gm/50 ml (Pmx)) 50 ml @ 100 mls/hr Q24H IVPB Last administered on 11/20/16 05:38; Admin Dose 100 MLS/HR; Start 11/18/16 at 06:00 Guaifenesin (Robitussin Liquid Cup) 200 mg Q4H PRN PO COUGH; Start 11/17/16 at 16:00 Phenol (Cepastat Lozenge) 1 lozenge Q1H PRN MT cough; Start 11/17/16 at 16:00 Apixaban (Eliquis) 2.5 mg BID PO Last administered on 11/17/16 20:13; Admin Dose 2.5 MG; Start 11/17/16 at 21:00; Status Future Hold Bisacodyl (Dulcolax Supp) 10 mg Q24H PRN [place] CONSTIPATION; Start 11/17/16 at 16: 30 Cholecalciferol (Vitamin D) 1,000 unit DAILY PO Last administered on 11/20/16 08:24; Admin Dose 1,000 UNIT; Start 11/18/16 at 09:00 Diphenhydramine HCl (Benadryl) 25 mg BID PRN PO ITCHING; Start 11/17/16 at 16:30 Multivitamins Therapeutic (Theragran) 1 tab DAILY PO Last administered on 08:24; Admin Dose 1 TAB; Start 11/18/16 at 09:00 Zinc Sulfate 220 mg 220 mg DAILY PO Last administered on 11/20/16 08:23; Admin Dose 220 MG; Start 11/18/16 at 09:00 Propofol 100 ml @ 3.96 mls/hr Q12H IV Last administered on 11/20/16 20:12; Admin Dose 15.84 MLS/HR; Start 11/18/16 at 12:30 Fentanyl (Sublimaze) 100 ml @ 2.5 mls/hr TITRATE IV Last administered on 23:47; Admin Dose 2.5 MLS/HR; Start 11/18/16 at 12:30 Ferrous Sulfate (Feosol Liquid Cup) 300 mg BID GTB Last administered on 08:23; Admin Dose 300 MG; Start 11/18/16 at 21:00 Acetaminophen (Tylenol Liquid) 650 mg Q6 PRN NGT PAIN AND OR ELEVATED TEMP Last administered on 11/19/16 18:41; Admin Dose 650 MG; Start 11/19/16 at 03:30 Docusate Sodium (Colace) 200 mg Q12H PO Last administered on 3/7/17at 11:27; Admin Dose 200 MG; Start 11/19/16 at 23:00 Amikacin Sulfate (Amikacin Iv Per Pharmacy) AMIKACIN PER PHARMACY NOTE XX ; Start 11/20/16 at 11:30 Insulin Aspart (Novolog Insulin Pen) NOVOLOG *MILD* ALGORI... Q6 SC ; Start 11/20 at 18:00 ALONSO MARTINEZ MD Nov 20, 2016 20:19
[2016-11-20] MEDS: FAMOTIDINE 20 MG TAB PO SCH (21:28)
[2016-11-20] MEDS: ATORVASTATIN 10 MG TAB PO SCH (21:28)
[2016-11-20] MEDS ORDERED: VANCOMYCIN IV PER PHARMACY XX SCH (22:30)
[2016-11-21] VITALS (55 sets, daily range): BP systolic 80–117; BP diastolic 52–93; PULSE 70–100; RESP 24–29
[2016-11-21] MEDS: NYSTATIN/TRIAMCINOLONE 15 GM OINT TOP SCH ×3 (01:00→21:29)
[2016-11-21] MEDS: DOCUSATE SODIUM 100 MG CAP PO SCH ×2 (01:01→10:18)
[2016-11-21] MEDS: ALBUTEROL HFA 8 GM INHALER INH SCH ×6 (01:53→21:06)
[2016-11-21] MEDS: PROPOFOL 100 ML IV SCH ×4 (02:17→19:31)
[2016-11-21] MEDS: HEPARIN 25000 UNITS/250 ML 250 ML IV SCH ×2 (02:24→23:37)
[2016-11-21 04:01] LABS: ADD SCAN DIFF NO
[2016-11-21 04:14] LABS: ABNORMAL IP MESSAGE 1; BASOPHILS % 0.1 % (0.0-2.0); EOSINOPHILS # 0.3 10^3/ul (0.0-0.5); EOSINOPHILS % 3.7 % (0.0-7.0); HEMATOCRIT 29.5 % (42.0-52.0); HEMOGLOBIN 9.4 g/dl (14.0-18.0); LYMPHOCYTES # 0.5 10^3/ul (0.8-2.9); MEAN CORPUSCULAR HGB CONC 31.9 g/dl (32.0-37.0); MEAN CORPUSCULAR VOLUME 78.5 fl (82.0-101.0); MEAN PLATELET VOLUME 10.8 fl (7.4-10.4); MONOCYTE # 0.4 10^3/ul (0.3-0.9); MONOCYTES % 4.6 % (0.0-11.0); NEUTROPHIL # 6.6 10^3/ul (1.6-7.5); NEUTROPHILS % 85.2 % (39.0-77.0); PLATELET COUNT 123 10^3/UL (140-415); RED BLOOD COUNT 3.76 10^6/ul (4.70-6.10); RED CELL DISTRIBUTION WIDTH 19.4 % (11.5-14.5); WHITE BLOOD COUNT 7.8 10^3/ul (4.8-10.8)
[2016-11-21 04:18] LABS: LYMPHOCYTES % 5.9 % (15.0-51.0)
[2016-11-21 04:24] LABS: POTASSIUM 4.9 mmol/L (3.5-5.1)
[2016-11-21 04:26] LABS: CREATININE 3.05 mg/dl (0.61-1.24)
[2016-11-21 04:27] LABS: CALCIUM 8.1 mg/dl (8.4-10.2); PHOSPHORUS 4.4 mg/dl (2.5-4.9)
[2016-11-21 04:28] LABS: MAGNESIUM 1.8 mg/dl (1.7-2.5)
[2016-11-21] MEDS: INSULIN ASPART [NOVOLOG] 3 ML PEN SC SCH ×4 (06:00→17:47)
[2016-11-21] MEDS: CEFEPIME 1GM/50 ML (PMX) 50 ML IVPB SCH (06:06)
--- NOTE | 2016-11-21 07:01 | PN ---
DATE: 11/20/2016 CARDIOLOGY FOLLOWUP SUBJECTIVE: Discussed with the staff. Rhythm strip was reviewed. The patient remains in atrial fi brillation. Heart rate is overall stable. The patient has been severely hypoxemic, currently 100% oxygen. Overnight had become severely hypoxemic and required to be bagged. Currently improved but s till requires very high oxygen, basically 100%. The patient remains nonverbal status post intubatio n on the vent in the ICU. Blood pressure has remained stable so far. MEDICATIONS: Reviewed. PHYSICAL EXAMINATION: VITAL SIGNS: Temperature 98.9, heart rate of 77, blood pressure of 90/59, , respiratory rate of 26. HEENT: Normocephalic, atraumatic. Satting 93 to 97%. 100% FIO2. Obese gentleman. Pupils are equ al. NECK: With moderate JVD. CARDIOVASCULAR: Irregularly irregular. Systolic murmur. PULMONARY: With mild rhonchi, diffuse. GASTROINTESTINAL: Soft, nontender. EXTREMITIES: Positive diffuse edema, ulceration of the foot. NEUROLOGIC: Sedated. LABORATORY: WBC of 6.1, hemoglobin 9, platelet 119. Sodium 132, potassium 4.6, BUN of 75, creatini ne 2.96, glucose of 78. ASSESSMENT AND PLAN: 1. Severe hypoxemic respiratory failure. 2. Pneumonia and respiratory failure, status post intubation on the vent. 3. Atrial fibrillation, appeared to be chronic. 4. Renal failure on dialysis now. 5. Hyperlipidemia. 6. Pad. 7. Morbid obesity. 8. History of previous respiratory failure, previously on tracheostomy. RECOMMENDATIONS: We will continue with the oxygen supplement and vent support. I will order procal citonin for tomorrow. Antibiotic is managed as per internal medicine and ID's recommendation. Vent support will be continued. Heparin drip for now will be continued for anticoagulation as long as t here is no active bleeding. H and H remained stable. Dialysis as per renal. Continue with the ICU care. More than 36 minutes of critical care time was spent managing this patient excluding any procedures. Dictated By: GARDENIA NELSON MD AV/NTS Conf#: [id number] DID#: [id number] CC: GERI LINDO MD;*EndCC*
--- NOTE | 2016-11-21 08:02 | RADRPT ---
PROCEDURE: XR Chest 1 view. CLINICAL INDICATION: Shortness of breath, pneumonia, congestive heart failure. TECHNIQUE: AP views of the chest were obtained. COMPARISON: Yesterday FINDINGS: The heart is large. Calcified atherosclerosis is noted in the aorta. Endotracheal and nasogastric t ubes are stable and appear in grossly appropriate location. Right-sided dialysis catheter is unchan ged. Left-sided central line is stable. Central pulmonary vascular congestion and interstitial promi nence continues to be seen in both lungs. Bilateral perihilar and lower lung infiltrates are stable . Small right pleural effusion is unchanged. The osseous structures are unchanged. IMPRESSION: Cardiomegaly with calcified atherosclerosis in the aorta. Stable central pulmonary vascular congestion and interstitial prominence in both lungs. Stable bilateral perihilar and lower lung infiltrates and small right pleural effusion. RPTAT: AA .Curly Trujillo MD, Date Time Electronically viewed and signed by .Curly Trujillo MD, on 11/21/2016 08:02 .P/
[2016-11-21 08:03] LABS: Allen Test ACCEPTAB; Arterial Base Excess -1.2 mmol/L (-3.0-3); Arterial COHb 0.3 % (0.0-3.0); Arterial Fraction of Oxyhgb 90.7 % (93.0-99.0); Arterial HCO3 24.8 mmol/L (22.0-26.0); Arterial MetHb 0.4 % (0.0-1.5); Arterial Total Hemglobin 11.6 g/dl (12.0-18.0); MODE VENT - AC
--- NOTE | 2016-11-21 08:34 | PN ---
DATE: 11/21/2016 CARDIOLOGY FOLLOWUP SUBJECTIVE: Discussed with the staff. Rhythm strip was reviewed. The patient remains in atrial fi brillation. Heart rate overall has been stable. Blood pressure on the low side, but stable. The p atient remained intubated on the vent. Given his severe hypoxemia, he still on 100% oxygen. Discus sed with the staff in the ICU. MEDICATIONS: Reviewed as per medical reconciliation, personally reviewed. PHYSICAL EXAMINATION: VITAL SIGNS: Temperature 98.4, heart rate of 99, blood pressure /93, respiration rate of 29, s aturating 95% on 100% oxygen. HEENT: Normocephalic, atraumatic. Obese gentleman. Pupils are equal. Status post intubation on t he vent. CARDIOVASCULAR: Irregularly irregular, systolic murmur. PULMONARY: Mild rhonchi. GASTROINTESTINAL: Soft, obese. EXTREMITIES: Positive edema, lower extremity edema. NEUROLOGIC: He is sedated. DERMATOLOGIC: With ulceration on the foot. LABORATORY: WBC of 7.8, hemoglobin 9.4, platelets of 123. Sodium 137, potassium 4.9, BUN of 81, cr eatinine 3.105, glucose of 90, magnesium is 1.8. CT of the chest shows extensive multifocal consolidation with air bronchograms, most prominent in yady th lower lobes, right more than left, most consistent with pneumonia. Also, ground glass opacities and intralobar septal thickening in both upper lobes, raising the possibility of superimposed pulmon bhaskar edema. The main pulmonary artery is with pulmonary hypertension. Anterior and middle mediastin al lymphadenopathy, nonspecific. Abdominal ascites. ASSESSMENT AND PLAN: 1. Severe hypoxemic respiratory failure, status post intubation. 2. Multilobar pneumonia. 3. Atrial fibrillation, on heart rate control, currently on heparin. 4. Renal failure, on dialysis now. 5. Electrolyte abnormalities. 6. Dyslipidemia. 7. Peripheral vascular disease. 8. Morbid obesity. 9. History of multiple previous respiratory failure and tracheostomy in the past. RECOMMENDATIONS: We will continue the vent support and oxygen supplementation. Broad spectrum anti biotics will be continued and managed as per ID recommendation. Currently on multiple meds, includ e amikacin and vancomycin. Heart rate currently is stable. If needed, digoxin will be given as nee ded at a low dose to avoid digoxin toxicity. Electrolytes will be corrected and managed as per dial ysis. Fluid management as per dialysis as well. Continue ICU care. More than 38 minutes of critical care time was spent in management of this patient, excluding any pr ocedures. Dictated By: GARDENIA NELSON MD AV/NTS Conf#: [id number] DID#: [id number] CC: GERI LINDO MD;*EndCC*
[2016-11-21] MEDS: FERROUS SULFATE 60 MG/ML 5ML CUP GTB SCH ×2 (08:45→21:27)
[2016-11-21] MEDS: FISH OIL 1,000 MG CAP PO SCH (08:45)
[2016-11-21] MEDS: SEVELAMER CARBONATE 0.8 GM PKT PO SCH ×3 (08:45→17:26)
[2016-11-21] MEDS: LACTOBACILLUS CHEW TAB PO SCH ×3 (08:45→21:27)
[2016-11-21] MEDS: ASPIRIN (EC) 81 MG TAB PO SCH (08:46)
[2016-11-21] MEDS: POTASSIUM CHLORIDE (SR) 20 MEQ TAB PO SCH (08:46)
[2016-11-21] MEDS: ALLOPURINOL 100 MG TAB PO SCH (08:47)
[2016-11-21] MEDS: FLUOXETINE 20 MG CAP PO SCH (08:47)
[2016-11-21] MEDS: PREGABALIN 25 MG CAP PO SCH ×3 (08:47→21:28)
[2016-11-21] MEDS: CHOLECALCIFEROL 1,000 UNIT TAB PO SCH (08:48)
[2016-11-21] MEDS: PYRIDOXINE 50 MG TAB PO SCH (08:48)
[2016-11-21] MEDS: METOPROLOL 25 MG TAB PO SCH ×2 (08:48→21:00)
[2016-11-21] MEDS: MULTIVITAMINS THERAPEUTIC TAB PO SCH (08:48)
[2016-11-21] MEDS: ZINC SULFATE 220 MG CAP PO SCH (09:04)
[2016-11-21] MEDS: VITAMIN E 400 UNITS CAP PO SCH (09:04)
[2016-11-21] MEDS: IPRATROPIUM (HFA) 12.9 GM INHALER INH SCH ×2 (09:42→13:48)
--- NOTE | 2016-11-21 10:07 | PN ---
Date/Time of Note Date/Time of Note DATE: 11/21/16 TIME: 10:03 Assessment/Plan VTE Prophylaxis VTE Prophylaxis Intervention: heparin Lines/Catheters IV C[facility] Type [facility] PERMACATH Urinary Cath still in place: Yes Reason Cath still needed: other (indicate) Assessment/Plan Assessment/Plan A 61-year-old male with a history of type 2 diabetes, peripheral vascular disease, prior respiratory insufficiency, end-stage renal disease, on dialysis, who presents with a cough for 1 week and SOB managed as follows: 1. Hypoxemic / Hypercapnic resp failure / Vent dependent / 2/2 severe PNA 2. CHF exacerbation diastolic 3. Moderate tricuspid regurgitation 4. Pulmonary hypertension 5. ESRD on HD 6. Morbid obesity / cannot r/o OHS 7. COPD 8. HTN > hyypotensive 9. Paroxysmal Afib 10. DM2 11. Chronic depression 12. Blake LE cellulitis with Chronic foot ulcer and hx of osteomyelitis 13. Hx of PVD / Gout 14. Pancytopenia with microcytosis: mild iron deficiency noted 15. Extensive Multifocal Pneumonia Michelle / cannot r/o bacterial component 16. History of multiple previous respiratory failure and tracheostomy in the past. 17. Pulmonary lymphadenopathy: reactive versus neoplastic PLAN: * Continue daily dialysis as tolerated * PRN pressor support * Continue Vent support and mgt/ patient still requiring 100% o2 * Continue aggressive abx regimen / heparin drip * add scheduled bronchodilator therapy * Continue SSI / start tube feeds at low rate * Continue iron replacement therapy * continue Icu supportive care * Defer to pulm for mgt of lynphadenopathy / possibly repeat CT once pneumonia is improved. PROPHYLAXIS: Heparin / PPI CRITICAL CARE TIME: >35 mins Subjective 24 Hr Interval Summary Free Text/Dictation still with low saturations on 100% fio2 comfortable on vent Exam/Review of Systems Vital Signs Vitals Vital Signs Date Time Temp Pulse Resp B/P Pulse Ox O2 Delivery O2 Flow Rate FiO2 11/21/16 09:38 80 27 92 100 11/21/16 09:00 97/66 Mechanical Ventilator 11/21/16 08:00 98.6 11/17/16 13:04 15.0 Intake and Output 11/20/16 11/20/16 11/21/16 15:00 23:00 07:00 Intake Total 360 ml 561.02 ml 611.84 ml Output Total 700 ml Balance 360 ml 561.02 ml -88.16 ml Exam Constitutional: obese, oriented, No alert Psych: other (unable to assess) Head: normocephalic Eyes: PERRL ENMT: intubated Respiratory: diminished breath sounds, No wheezing Cardiovascular: regular rate and rhythm, No murmurs/extra sounds Gastrointestinal: bowel sounds, other (protuberant), soft Musculoskeletal: No nl extremities to inspection Extremities: edema 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: lethargic Skin: other (erythematous skin in both lower extremities with diffuse non pitting edema up to knees bilaterally and chronic keratotic skin changes and toe ulcer) Results Result Diagram: 11/21/16 0345 11/21/16 0345 Results 24 hrs Laboratory Tests Test 11/20/16 12:02 11/20/16 15:47 11/20/16 16:15 11/20/16 20:28 Bedside Glucose 77 74 82 Activated Partial Thromboplast Time 72.4 *H Test 11/20/16 22:15 11/21/16 01:24 11/21/16 03:45 11/21/16 06:14 Activated Partial Thromboplast Time 61.8 H 66.0 H Bedside Glucose 90 94 Anion Gap 20 H Basophils # 0.0 Basophils % 0.1 Blood Urea Nitrogen 81 H Calcium Level 8.1 L Carbon Dioxide Level 25 Chloride Level 97 Creatinine 3.05 H Eosinophils # 0.3 Eosinophils % 3.7 Glucose Level 90 Hematocrit 29.5 L Hemoglobin 9.4 L Lymphocytes # 0.5 L Lymphocytes % 5.9 L Magnesium Level 1.8 Mean Corpuscular Hemoglobin 25.0 L Mean Corpuscular Hemoglobin Concent 31.9 L Mean Corpuscular Volume 78.5 L Mean Platelet Volume 10.8 H Monocytes # 0.4 Monocytes % 4.6 Neutrophils # 6.6 Neutrophils % 85.2 H Nucleated Red Blood Cells # 0.0 Nucleated Red Blood Cells % 0.0 Phosphorus Level 4.4 Platelet Count 123 L Potassium Level 4.9 Red Blood Count 3.76 L Red Cell Distribution Width 19.4 H Sodium Level 137 White Blood Count 7.8 # Test 11/21/16 07:00 Arterial Blood HCO3 24.8 Arterial Blood Base Excess -1.2 Arterial Blood Oxygen Saturation 91.3 L Khoi Test ACCEPTAB Arterial Blood Gas Puncture Site Right Radial Arterial Blood Carboxyhemoglobin 0.3 Arterial Blood Date Drawn 11/21/2016 7:37:21 AM Arterial Blood Methemoglobin 0.4 Arterial Blood pCO2 (Temp correct) 46.8 H Arterial Blood pH (Temp corrected) 7.342 L Arterial Blood pO2 (Temp corrected) 65.2 L Blood Gas A-a O2 Differential 601.0 H Blood Gas Actual Respiration Rate 28 Blood Gas Low PEEP Setting 8.0 Blood Gas Modality VENT - AC Blood Gas Notified Time 11/21/2016 8:03:01 AM Blood Gas Notified Whom JLD Blood Gas Respiration Rate 16.0 Blood Gas Specimen Source Blood arterial Blood Gas Temperature 37.0 Blood Gas Tidal Volume 500.0 FiO2 100.0 Oxyhemoglobin Percent 90.7 L Total Hemoglobin 11.6 L Medications Medications Current Medications Ondansetron HCl (Zofran Inj) 4 mg Q6H PRN IV NAUSEA AND/OR VOMITING; Start 11/17 at 11:00 Acetaminophen/ Hydrocodone Bitart ([place] (5/325)) 1 tab Q6H PRN PO MODERATE PAIN LEVEL 4-6; Start 11/17/16 at 11:00 Morphine Sulfate (morphine) 2 mg Q4H PRN IV SEVERE PAIN LEVEL 7-10; Start at 11:00 Magnesium Hydroxide (Milk Of Mag) 30 ml DAILY PRN PO CONSTIPATION; Start at 11:00 Sodium Biphosphate/ Sodium Phosphate (Fleet Enema) 133 ml DAILY PRN IN CONSTIPATION; Start 11/17/16 at 11:00 Lorazepam (Ativan) 0.5 mg Q6H PRN IV ANXIETY Last administered on 11/18/16 07: 27; Admin Dose 0.5 MG; Start 11/17/16 at 11:00 Hydralazine HCl (Apresoline) 10 mg Q6H PRN IV ELEVATED BLOOD PRESSURE; Start at 11:00 Nitroglycerin (Nitroglycerin (Sl Tab) 0.4 Mg) 1 tab Q5M PRN SL ANGINA; Start at 11:00 Acetaminophen (Tylenol Tab) 650 mg Q6H PRN PO PAIN LEVEL 1-5; Start 11/17/16 at 11:00 Allopurinol (Zyloprim) 100 mg DAILY PO Last administered on 11/21/16 08:47; Admin Dose 100 MG; Start 11/18/16 at 09:00 Aspirin (Halfprin) 81 mg DAILY PO Last administered on 11/21/16 08:46; Admin Dose 81 MG; Start 11/18/16 at 09:00 Atorvastatin Calcium (Lipitor) 10 mg QHS PO Last administered on 11/20/16 21:28 ; Admin Dose 10 MG; Start 11/17/16 at 21:00 Famotidine (Pepcid) 20 mg Q24H PO Last administered on 11/20/16 21:28; Admin Dose 20 MG; Start 11/17/16 at 21:00 Lactobacillus Acidoph/Bulgaricus (Floranex) 1 tab TID PO Last administered on 08:45; Admin Dose 1 TAB; Start 11/17/16 at 13:00 Lorazepam (Ativan) 0.5 mg Q6 PRN PO ANXIETY Last administered on 11/18/16 11:04 ; Admin Dose 0.5 MG; Start 11/17/16 at 11:00 Metoprolol Tartrate (Lopressor) 12.5 mg BID PO Last administered on 11/19/16 20 :43; Admin Dose 12.5 MG; Start 11/17/16 at 21:00 Fish Oil (Fish Oil) 1,000 mg DAILY PO Last administered on 11/21/16 08:45; Admin Dose 1,000 MG; Start 11/18/16 at 09:00 Potassium Chloride (Klor-Con 20) 40 meq DAILY PO Last administered on 11/21/16 08:46; Admin Dose 40 MEQ; Start 11/18/16 at 09:00 Pregabalin (Lyrica) 50 mg TID PO Last administered on 11/21/16 08:47; Admin Dose 50 MG; Start 11/17/16 at 13:00 Pyridoxine HCl (Vitamin B6) 100 mg DAILY PO Last administered on 11/21/16 08:48 ; Admin Dose 100 MG; Start 11/18/16 at 09:00 Simethicone (Mylicon) 80 mg Q6H PRN PO INTESTINAL SPASMS/CRAMPING; Start at 11:00 Vitamin E (Vitamin E) 400 units DAILY PO Last administered on 11/21/16 09:04; Admin Dose 400 UNITS; Start 11/18/16 at 09:00 Zolpidem Tartrate (Ambien) 10 mg QHS PRN PO INSOMNIA; Start 11/17/16 at 11:00 Fluoxetine HCl (Prozac) 20 mg DAILY PO Last administered on 11/21/16 08:47; Admin Dose 20 MG; Start 11/18/16 at 09:00 Al Hydrox/Mg Hydrox/Simethicone (Mag-Al Plus) 10 ml Q6 PRN PO DISTENSION/GAS/ BLOATING; Start 11/17/16 at 11:00 Vancomycin HCl (Vanco Iv Per Pharmacy) PER PHARMACY DOSING NOTE XX ; Start at 11:30 Miscellaneous Information 1 ea NOTE XX ; Start 11/17/16 at 11:30 Glucose (Glutose) 15 gm Q15M PRN PO DECREASED GLUCOSE; Start 11/17/16 at 11:30 Glucose (Glutose) 22.5 gm Q15M PRN PO DECREASED GLUCOSE; Start 11/17/16 at 11:30 Dextrose (D50w Syringe) 25 ml Q15M PRN IV DECREASED GLUCOSE Last administered on 11/20/16 02:28; Admin Dose 25 ML; Start 11/17/16 at 11:30 Dextrose (D50w Syringe) 50 ml Q15M PRN IV DECREASED GLUCOSE; Start 11/17/16 at 11:30 Glucagon (Glucagen) 1 mg Q15M PRN IM DECREASED GLUCOSE Last administered on 11/19 21:43; Admin Dose 1 MG; Start 11/17/16 at 11:30 Glucose 15 gm 15 gm Q15M PRN BUCCAL DECREASED GLUCOSE; Start 11/17/16 at 11:30 Cefepime HCl (Maxipime 1gm/50 ml (Pmx)) 50 ml @ 100 mls/hr Q24H IVPB Last administered on 11/21/16 06:06; Admin Dose 100 MLS/HR; Start 11/18/16 at 06:00 Guaifenesin (Robitussin Liquid Cup) 200 mg Q4H PRN PO COUGH; Start 11/17/16 at 16:00 Phenol (Cepastat Lozenge) 1 lozenge Q1H PRN MT cough; Start 11/17/16 at 16:00 Apixaban (Eliquis) 2.5 mg BID PO Last administered on 11/17/16 20:13; Admin Dose 2.5 MG; Start 11/17/16 at 21:00; Status Future Hold Bisacodyl (Dulcolax Supp) 10 mg Q24H PRN IN CONSTIPATION; Start 11/17/16 at 16: 30 Cholecalciferol (Vitamin D) 1,000 unit DAILY PO Last administered on 11/21/16 08:48; Admin Dose 1,000 UNIT; Start 11/18/16 at 09:00 Diphenhydramine HCl (Benadryl) 25 mg BID PRN PO ITCHING; Start 11/17/16 at 16:30 Multivitamins Therapeutic (Theragran) 1 tab DAILY PO Last administered on 08:48; Admin Dose 1 TAB; Start 11/18/16 at 09:00 Zinc Sulfate 220 mg 220 mg DAILY PO Last administered on 11/21/16 09:04; Admin Dose 220 MG; Start 11/18/16 at 09:00 Propofol 100 ml @ 3.96 mls/hr Q12H IV Last administered on 11/21/16 09:04; Admin Dose 15.84 MLS/HR; Start 11/18/16 at 12:30 Fentanyl (Sublimaze) 100 ml @ 2.5 mls/hr TITRATE IV Last administered on 23:47; Admin Dose 2.5 MLS/HR; Start 11/18/16 at 12:30 Ferrous Sulfate (Feosol Liquid Cup) 300 mg BID GTB Last administered on 08:45; Admin Dose 300 MG; Start 11/18/16 at 21:00 Acetaminophen (Tylenol Liquid) 650 mg Q6 PRN NGT PAIN AND OR ELEVATED TEMP Last administered on 11/19/16 18:41; Admin Dose 650 MG; Start 11/19/16 at 03:30 Docusate Sodium (Colace) 200 mg Q12H PO Last administered on 11/21/16 01:01; Admin Dose 200 MG; Start 11/19/16 at 23:00 Amikacin Sulfate (Amikacin Iv Per Pharmacy) AMIKACIN PER PHARMACY NOTE XX ; Start 11/20/16 at 11:30 Insulin Aspart (Novolog Insulin Pen) NOVOLOG *MILD* ALGORI... Q6 SC ; Start 11/20 at 18:00 Nystatin/ Triamcinolone Acetonide (Mycolog Oint) 1 applic BID TOP Last administered on 11/21/16t 08:49; Admin Dose 1 APPLIC; Start 11/20/16 at 21:00 Procedures Procedures PROCEDURE: XR Chest 1 view. CLINICAL INDICATION: Shortness of breath, pneumonia, congestive heart failure. TECHNIQUE: AP views of the chest were obtained. COMPARISON: Yesterday FINDINGS: The heart is large. Calcified atherosclerosis is noted in the aorta. Endotracheal and nasogastric tubes are stable and appear in grossly appropriate location. Right-sided dialysis catheter is unchanged. Left-sided central line is stable. Central pulmonary vascular congestion and interstitial prominence continues to be seen in both lungs. Bilateral perihilar and lower lung infiltrates are stable. Small right pleural effusion is unchanged. The osseous structures are unchanged. IMPRESSION: Cardiomegaly with calcified atherosclerosis in the aorta. Stable central pulmonary vascular congestion and interstitial prominence in both lungs. Stable bilateral perihilar and lower lung infiltrates and small right pleural effusion. RPTAT: AA .Curly Trujillo MD, MD Date Time Electronically viewed and signed by .Curly Trujillo MD, MD on 11/21/2016 08:02 .P/ CC: EDNA BUSTILLO MD, [facility] PROCEDURE: US DVT. CLINICAL INDICATION: Bilateral lower extremity pain and swelling. TECHNIQUE: Multiple longitudinal and transverse images of the bilateral lower extremity veins were obtained with lai scale and color Doppler imaging. 2D grayscale measurements with compression, color Doppler flow, and augmentation was performed. The calf veins were interrogated as well. COMPARISON: No prior studies are available for comparison. FINDINGS: The bilateral common femoral, femoral and popliteal veins are normally compressible throughout. Color flow demonstrates normal filling in all of the vessels. Normal venous waveforms are visualized and there is normal response to augmentation. The calf veins were not visualized due to overlying bandage.. IMPRESSION: 1. No evidence of a deep vein thrombosis involving either lower extremity. RPTAT: QQ .Munir Gomez MD, MD Date Time Electronically viewed and signed by .Munir Gomez MD, MD on 11/18/2016 10: 55 .M/ PROCEDURE: CT Chest without contrast. CLINICAL INDICATION: Respiratory failure, pneumonia. TECHNIQUE: A CT scan of the chest without contrast was performed. Coronal and sagittal reformatted images were obtained from the axial source images. CTDIvol : 16.18 mGy. DLP: 642.78 mGy-cm. One or more of the following dose reduction techniques were used: - Automated exposure control. - Adjustment of the mA and/or kV according to patient size. - Use of iterative reconstruction technique. COMPARISON: None. FINDINGS: An endotracheal tube terminates in the thoracic trachea. The trachea and mainstem bronchi are patent. There are small bilateral pleural effusions. There is consolidation with air bronchograms is noted in both lower lobes, right more than left. There is also extensive patchy consolidation with air bronchograms in the bilateral upper lobes, right middle lobe, and lingula. Patchy ground-glass opacities and interlobular septal thickening are also noted in both upper lobes. No pneumothorax is identified. There is no suspicious thyroid lesion. There is anterior and middle mediastinal lymphadenopathy. The heart is not enlarged. There is no pericardial effusion. There is low-attenuation blood the heart and aorta. The main pulmonary artery is dilated (4.5 cm). Ascites is noted in the upper abdomen. There is no suspicious osseous lesion. IMPRESSION: 1. Extensive multifocal consolidation with air bronchograms, most prominent both lower lobes, right more than left. This is most consistent with pneumonia. There are also ground-glass opacities and interlobular septal thickening in both upper lobes, raising the possibility of superimposed pulmonary edema. 2. Small bilateral pleural effusions. 3. Low-attenuation blood in the heart and aorta, suggestive of anemia. Correlation with CBC is recommended. 4. Dilated main pulmonary artery, suggestive of pulmonary hypertension. 5. Anterior and middle mediastinal lymphadenopathy, nonspecific but possibly representing a reactive process versus a neoplastic process such as lymphoma. 6. Abdominal ascites. GERI LINDO Nov 21, 2016 10:07
[2016-11-21] MEDS ORDERED: ALBUMIN HUMAN 25% 50 ML IV PRN (11:00)
--- NOTE | 2016-11-21 12:16 | PN ---
DATE: SUBJECTIVE: No acute events. The patient is lying in bed, looks comfortable. Afebrile. LABORATORY DATA: WBC 7.8, H and H 9.4 and 29.5, platelets 123, neutrophils 85.2. MICROBIOLOGY: Blood culture preliminary growing gram-positive cocci in clusters , 1 out of 2 bottles. Endotracheal aspirate growing Michelle albicans. INDWELLINGS: The patient has right chest PermCath, left IJ triple-lumen catheter, endotracheal tube, NG tube. DIAGNOSTICS: CT of the chest revealed extensive multifocal consolidations with air bronchograms, more prominent in both lower lobes, right more than left, consistent with pneumonia. Abdominal ascites. ANTIMICROBIALS: 1. Vancomycin. 2. Amikacin 3. Cefepime. PHYSICAL EXAMINATION: GENERAL: Morbidly obese, middle-aged white man who is intubated, sedated, in no distress. HEENT: Head atraumatic, normocephalic. Sclerae anicteric. Buccal mucosa dry. NECK: Supple, trachea midline. CHEST: Rise symmetrical. Breath sounds diminished. HEART: S1, S2. ABDOMEN: Soft. Bowel sounds hypoactive. EXTREMITIES: Bilateral lower extremity edema and chronic venous stasis. ASSESSMENT: 1. Severe sepsis status post shock. 2. Gram-positive cocci bacteremia, rule out line sepsis. 3. Bilateral pneumonia. 4. Ascites. 5. Acute on chronic respiratory failure. 6. Bilateral lower extremity chronic venous stasis. 7. End-stage renal disease, hemodialysis dependent. PLAN: The patient remains hemodynamically stable. We are going to change cefepime to imipenem or Merrem, add Diflucan. Continue other antibiotics. Pending palliative care evaluation. Await for final cultures. Dictated By: JAMEY VAZQUEZ [employer] ATTENDANT for DONAVAN HALLMAN/GREGORY Conf#: [id number] DID#: [id number] ANTONIA
[2016-11-21] MEDS: FLUCONAZOLE 100 MG TAB NGT SCH ×2 (12:29→14:02)
[2016-11-21] MEDS: MEROPENEM 500 MG/100 ML (PMX) 100 ML IVPB SCH (13:43)
[2016-11-21] MEDS: FENTAnyl (DRIP) 1000 mcg/100mL 100 ML IV SCH (14:02)
[2016-11-21] MEDS: AMIKACIN 475 MG in SOD CHLORIDE 0.9% 100 ML IVPB SCH (14:06)
[2016-11-21] MEDS: METHYLPREDNISOLONE 40 MG INJ IV SCH ×2 (15:53→21:29)
[2016-11-21] MEDS ORDERED: NORepinephrine 8MG/250 ML (PMX 250 ML IV SCH (16:00)
--- NOTE | 2016-11-21 16:42 | PN ---
DATE: PULMONARY FOLLOWUP NOTE SUBJECTIVE: The patient remains intubated on mechanical ventilation, continues 100% FIO2 with occas ional desaturation. Overall, no significant changes. OBJECTIVE: VITAL SIGNS: Temperature 98, pulse is 82, blood pressure 80/52, O2 saturation 96% on 100% FIO2, ora lly intubated. HEENT: Dry mucous membranes. Pupils equal and reactive to light. CARDIAC: S1, S2, no added sounds or murmurs. CHEST: Diminished air entry bilaterally. ABDOMEN: Soft, nontender. No guarding or rebound. EXTREMITIES: No cyanosis, clubbing, edema. NEUROLOGIC: Generalized weakness. LABORATORY DATA: White count 7.2, hemoglobin 9.4. BUN 81, creatinine 3.05. ABG: pH 7.334, pCO2 o f 46, PaO2 of 65. PTT was 109. IMPRESSION AND PLAN: 1. Hypoxemic respiratory failure. 2. Likely healthcare-associated pneumonia. 3. End-stage renal failure on hemodialysis. 4. Possible significant bronchospasm. PLAN: 1. Continue hemodialysis. 2. Continue mechanical ventilation. 3. CT chest when stable. 4. Addition of steroids for possible bronchospasm and bronchiolitis obliterans organizing pneumonia . Dictated By: EDNA COLINDRES/GREGORY Conf#: [id number] DID#: [id number]
--- NOTE | 2016-11-21 19:12 | CONS ---
Date/Time of Note Date/Time of Note DATE: 11/21/16 TIME: 19:10 Assessment/Plan Assessment/Plan Additional Assessment/Plan 61 yo Male with 1) Respiratory failure 2nd to PNA and CHF 2) Volume Overload 3) ESRD on HD MWF 4) Anemia, Chronic, CKD 5) Mineral Bone Disease, CKD 6) Respiratory Acidosis, CO2 Retention with AG Acidosis 7) Type 2 DM 8) Chronic HTN S/p HD today, UF 1.5L Cont Supportive care Will likely order daily UF/HD as needed Will cont to closely follow along with you Consultation Date/Type/Reason Admit Date/Time Nov 17, 2016 at 12:10 Initial Consult Date 11/17/16 Type of Consultation: renal Referring Provider: FELIX SCOTT 24 HR Interval Summary Free Text/Dictation S/p HD, approx 1.5L UF, No pressors. Vent Support 100% FIo2 Subjective hx not possible: pt critical status Constitutional: requiring O2 Exam/Review of Systems Vital Signs Vitals Vital Signs Date Time Temp Pulse Resp B/P Pulse Ox O2 Delivery O2 Flow Rate FiO2 11/21/16 19:00 93 106/67 89 Mechanical Ventilator 11/21/16 17:20 29 100 11/21/16 16:00 97.9 11/17/16 13:04 15.0 Intake and Output 11/20/16 11/20/16 11/21/16 15:00 23:00 07:00 Intake Total 360 ml 561.02 ml 643.18 ml Output Total 700 ml Balance 360 ml 561.02 ml -56.82 ml Exam Constitutional: No distress ENMT: intubated, mucosa pink and moist Respiratory: crackles/rales, diminished breath sounds Cardiovascular: edema, regular rate and rhythm Gastrointestinal: soft Extremities: pitting pedal edema 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: other (sedated) Results Result Diagram: 11/21/16 0345 11/21/16 0345 Results 24 hrs Laboratory Tests Test 11/20/16 20:28 11/20/16 22:15 11/21/16 01:24 11/21/16 03:45 Bedside Glucose 82 90 Activated Partial Thromboplast Time 61.8 H 66.0 H Anion Gap 20 H Basophils # 0.0 Basophils % 0.1 Blood Urea Nitrogen 81 H Calcium Level 8.1 L Carbon Dioxide Level 25 Chloride Level 97 Creatinine 3.05 H Eosinophils # 0.3 Eosinophils % 3.7 Glucose Level 90 Hematocrit 29.5 L Hemoglobin 9.4 L Lymphocytes # 0.5 L Lymphocytes % 5.9 L Magnesium Level 1.8 Mean Corpuscular Hemoglobin 25.0 L Mean Corpuscular Hemoglobin Concent 31.9 L Mean Corpuscular Volume 78.5 L Mean Platelet Volume 10.8 H Monocytes # 0.4 Monocytes % 4.6 Neutrophils # 6.6 Neutrophils % 85.2 H Nucleated Red Blood Cells # 0.0 Nucleated Red Blood Cells % 0.0 Phosphorus Level 4.4 Platelet Count 123 L Potassium Level 4.9 Red Blood Count 3.76 L Red Cell Distribution Width 19.4 H Sodium Level 137 White Blood Count 7.8 # Test 11/21/16 06:14 11/21/16 07:00 11/21/16 11:45 11/21/16 11:48 Bedside Glucose 94 122 Arterial Blood HCO3 24.8 Arterial Blood Base Excess -1.2 Arterial Blood Oxygen Saturation 91.3 L Khoi Test ACCEPTAB Arterial Blood Gas Puncture Site Right Radial Arterial Blood Carboxyhemoglobin 0.3 Arterial Blood Date Drawn 11/21/2016 7:37:21 AM Arterial Blood Methemoglobin 0.4 Arterial Blood pCO2 (Temp correct) 46.8 H Arterial Blood pH (Temp corrected) 7.342 L Arterial Blood pO2 (Temp corrected) 65.2 L Blood Gas A-a O2 Differential 601.0 H Blood Gas Actual Respiration Rate 28 Blood Gas Low PEEP Setting 8.0 Blood Gas Modality VENT - AC Blood Gas Notified Time 11/21/2016 8:03:01 AM Blood Gas Notified Whom JLD Blood Gas Respiration Rate 16.0 Blood Gas Specimen Source Blood arterial Blood Gas Temperature 37.0 Blood Gas Tidal Volume 500.0 FiO2 100.0 Oxyhemoglobin Percent 90.7 L Total Hemoglobin 11.6 L Activated Partial Thromboplast Time 109.7 *H Test 11/21/16 17:45 Bedside Glucose 110 Medications Medications Current Medications Ondansetron HCl (Zofran Inj) 4 mg Q6H PRN IV NAUSEA AND/OR VOMITING; Start 11/17 at 11:00 Acetaminophen/ Hydrocodone Bitart ([place] (5/325)) 1 tab Q6H PRN PO MODERATE PAIN LEVEL 4-6; Start 11/17/16 at 11:00 Morphine Sulfate (morphine) 2 mg Q4H PRN IV SEVERE PAIN LEVEL 7-10; Start at 11:00 Magnesium Hydroxide (Milk Of Mag) 30 ml DAILY PRN PO CONSTIPATION; Start at 11:00 Sodium Biphosphate/ Sodium Phosphate (Fleet Enema) 133 ml DAILY PRN [place] CONSTIPATION; Start 11/17/16 at 11:00 Lorazepam (Ativan) 0.5 mg Q6H PRN IV ANXIETY Last administered on 11/18/16 07: 27; Admin Dose 0.5 MG; Start 11/17/16 at 11:00 Hydralazine HCl (Apresoline) 10 mg Q6H PRN IV ELEVATED BLOOD PRESSURE; Start at 11:00 Nitroglycerin (Nitroglycerin (Sl Tab) 0.4 Mg) 1 tab Q5M PRN SL ANGINA; Start at 11:00 Acetaminophen (Tylenol Tab) 650 mg Q6H PRN PO PAIN LEVEL 1-5; Start 11/17/16 at 11:00 Allopurinol (Zyloprim) 100 mg DAILY PO Last administered on 11/21/16 08:47; Admin Dose 100 MG; Start 11/18/16 at 09:00 Aspirin (Halfprin) 81 mg DAILY PO Last administered on 11/21/16 08:46; Admin Dose 81 MG; Start 11/18/16 at 09:00 Atorvastatin Calcium (Lipitor) 10 mg QHS PO Last administered on 11/20/16 21:28 ; Admin Dose 10 MG; Start 11/17/16 at 21:00 Famotidine (Pepcid) 20 mg Q24H PO Last administered on 11/20/16 21:28; Admin Dose 20 MG; Start 11/17/16 at 21:00 Lactobacillus Acidoph/Bulgaricus (Floranex) 1 tab TID PO Last administered on 08:45; Admin Dose 1 TAB; Start 11/17/16 at 13:00 Lorazepam (Ativan) 0.5 mg Q6 PRN PO ANXIETY Last administered on 11/18/16 11:04 ; Admin Dose 0.5 MG; Start 11/17/16 at 11:00 Metoprolol Tartrate (Lopressor) 12.5 mg BID PO Last administered on 11/19/16 20 :43; Admin Dose 12.5 MG; Start 11/17/16 at 21:00 Fish Oil (Fish Oil) 1,000 mg DAILY PO Last administered on 11/21/16 08:45; Admin Dose 1,000 MG; Start 11/18/16 at 09:00 Potassium Chloride (Klor-Con 20) 40 meq DAILY PO Last administered on 11/21/16 08:46; Admin Dose 40 MEQ; Start 11/18/16 at 09:00 Pregabalin (Lyrica) 50 mg TID PO Last administered on 11/21/16 08:47; Admin Dose 50 MG; Start 11/17/16 at 13:00 Pyridoxine HCl (Vitamin B6) 100 mg DAILY PO Last administered on 11/21/16 08:48 ; Admin Dose 100 MG; Start 11/18/16 at 09:00 Simethicone (Mylicon) 80 mg Q6H PRN PO INTESTINAL SPASMS/CRAMPING; Start at 11:00 Vitamin E (Vitamin E) 400 units DAILY PO Last administered on 11/21/16 09:04; Admin Dose 400 UNITS; Start 11/18/16 at 09:00 Zolpidem Tartrate (Ambien) 10 mg QHS PRN PO INSOMNIA; Start 11/17/16 at 11:00 Fluoxetine HCl (Prozac) 20 mg DAILY PO Last administered on 11/21/16 08:47; Admin Dose 20 MG; Start 11/18/16 at 09:00 Al Hydrox/Mg Hydrox/Simethicone (Mag-Al Plus) 10 ml Q6 PRN PO DISTENSION/GAS/ BLOATING; Start 11/17/16 at 11:00 Vancomycin HCl (Vanco Iv Per Pharmacy) PER PHARMACY DOSING NOTE XX ; Start at 11:30 Miscellaneous Information 1 ea NOTE XX ; Start 11/17/16 at 11:30 Glucose (Glutose) 15 gm Q15M PRN PO DECREASED GLUCOSE; Start 11/17/16 at 11:30 Glucose (Glutose) 22.5 gm Q15M PRN PO DECREASED GLUCOSE; Start 11/17/16 at 11:30 Dextrose (D50w Syringe) 25 ml Q15M PRN IV DECREASED GLUCOSE Last administered on 11/20/16 02:28; Admin Dose 25 ML; Start 11/17/16 at 11:30 Dextrose (D50w Syringe) 50 ml Q15M PRN IV DECREASED GLUCOSE; Start 11/17/16 at 11:30 Glucagon (Glucagen) 1 mg Q15M PRN IM DECREASED GLUCOSE Last administered on 11/19 21:43; Admin Dose 1 MG; Start 11/17/16 at 11:30 Glucose (Glutose) 15 gm Q15M PRN BUCCAL DECREASED GLUCOSE; Start 11/17/16 at 11: 30 Guaifenesin (Robitussin Liquid Cup) 200 mg Q4H PRN PO COUGH; Start 11/17/16 at 16:00 Phenol (Cepastat Lozenge) 1 lozenge Q1H PRN MT cough; Start 11/17/16 at 16:00 Apixaban (Eliquis) 2.5 mg BID PO Last administered on 11/17/16 20:13; Admin Dose 2.5 MG; Start 11/17/16 at 21:00; Status Future Hold Bisacodyl (Dulcolax Supp) 10 mg Q24H PRN [place] CONSTIPATION; Start 11/17/16 at 16: 30 Cholecalciferol (Vitamin D) 1,000 unit DAILY PO Last administered on 11/21/16 08:48; Admin Dose 1,000 UNIT; Start 11/18/16 at 09:00 Diphenhydramine HCl (Benadryl) 25 mg BID PRN PO ITCHING; Start 11/17/16 at 16:30 Multivitamins Therapeutic (Theragran) 1 tab DAILY PO Last administered on 08:48; Admin Dose 1 TAB; Start 11/18/16 at 09:00 Zinc Sulfate 220 mg 220 mg DAILY PO Last administered on 11/21/16 09:04; Admin Dose 220 MG; Start 11/18/16 at 09:00 Propofol 100 ml @ 3.96 mls/hr Q12H IV Last administered on 11/21/16 14:02; Admin Dose 19.8 MLS/HR; Start 11/18/16 at 12:30 Fentanyl (Sublimaze) 100 ml @ 2.5 mls/hr TITRATE IV Last administered on 14:02; Admin Dose 2.5 MLS/HR; Start 11/18/16 at 12:30 Ferrous Sulfate (Feosol Liquid Cup) 300 mg BID GTB Last administered on 08:45; Admin Dose 300 MG; Start 11/18/16 at 21:00 Acetaminophen (Tylenol Liquid) 650 mg Q6 PRN NGT PAIN AND OR ELEVATED TEMP Last administered on 11/19/16 18:41; Admin Dose 650 MG; Start 11/19/16 at 03:30 Amikacin Sulfate (Amikacin Iv Per Pharmacy) AMIKACIN PER PHARMACY NOTE XX ; Start 11/20/16 at 11:30 Insulin Aspart (Novolog Insulin Pen) NOVOLOG *MILD* ALGORI... Q6 SC ; Start 11/20 at 18:00 Nystatin/ Triamcinolone Acetonide (Mycolog Oint) 1 applic BID TOP Last administered on 11/21/16 08:49; Admin Dose 1 APPLIC; Start 11/20/16 at 21:00 Docusate Sodium 200 mg 200 mg BID GTB ; Start 11/21/16 at 21:00 Meropenem (Merrem 500 Mg/ 100 ml (Pmx)) 100 ml @ 200 mls/hr Q24H IVPB Last administered on 11/21/16 13:43; Admin Dose 200 MLS/HR; Start 11/21/16 at 14:00 Fluconazole (Diflucan) 100 mg DAILY NGT Last administered on 11/21/16 14:02; Admin Dose 100 MG; Start 11/21/16 at 12:30 Miscellaneous Information (*Rx Drug Level Order Reminder*) VANCO RANDOM LEVEL... ONCE ONCE XX ; Start 11/22/16 at 05:00; Stop 11/22/16 at 05:01 Methylprednisolone Sodium Succinate 40 mg 40 mg Q8 IV Last administered on 15:53; Admin Dose 40 MG; Start 11/21/16 at 16:00 Norepinephrine 250 ml @ 1.875 mls/ hr TITRATE IV ; Start 11/21/16 at 16:00; Stop 11/22/16 at 07:00 Norepinephrine/ Dextrose (Levophed/D5W) 500 ml @ 0 mls/hr TITRATE IV ; Start 11/22/16 at 07:00 Procedures Procedures PROCEDURE: XR Chest 1 view. CLINICAL INDICATION: Shortness of breath, pneumonia, congestive heart failure. TECHNIQUE: AP views of the chest were obtained. COMPARISON: Yesterday FINDINGS: The heart is large. Calcified atherosclerosis is noted in the aorta. Endotracheal and nasogastric tubes are stable and appear in grossly appropriate location. Right-sided dialysis catheter is unchanged. Left-sided central line is stable. Central pulmonary vascular congestion and interstitial prominence continues to be seen in both lungs. Bilateral perihilar and lower lung infiltrates are stable. Small right pleural effusion is unchanged. The osseous structures are unchanged. IMPRESSION: Cardiomegaly with calcified atherosclerosis in the aorta. Stable central pulmonary vascular congestion and interstitial prominence in both lungs. Stable bilateral perihilar and lower lung infiltrates and small right pleural effusion. RPTAT: AA .Curly Trujillo MD, MD Date Time Electronically viewed and signed by .Curly Trujillo MD, MD on 11/21/2016 08:02 DYAN FRANKLIN MD Nov 21, 2016 19:12
[2016-11-21] MEDS: IPRATROPIUM (HFA) 12.9 GM INHALER INH PRN (21:06)
[2016-11-21] MEDS: DOCUSATE SODIUM 10 MG/ML (10ML CUP) GTB SCH (21:27)
[2016-11-21] MEDS: ATORVASTATIN 10 MG TAB PO SCH (21:27)
[2016-11-21] MEDS: FAMOTIDINE 20 MG TAB PO SCH (21:28)
--- NOTE | 2016-11-21 23:56 | PN ---
Date/Time of Note Date/Time of Note DATE: 11/21/16 TIME: 23:56 Assessment/Plan Lines/Catheters IV Catheter Type (from [facility]): PERMA CATH Hig[place] in Place (from [facility]): Yes Exam/Review of Systems Vital Signs Vitals Vital Signs Date Time Temp Pulse Resp B/P Pulse Ox O2 Delivery O2 Flow Rate FiO2 11/21/16 22:30 72 90/59 92 11/21/16 22:00 26 11/21/16 21:09 100 11/21/16 19:30 99.2 Mechanical Ventilator 11/17/16 13:04 15.0 Intake and Output 11/20/16 11/20/16 11/21/16 15:00 23:00 07:00 Intake Total 360 ml 561.02 ml 643.18 ml Output Total 700 ml Balance 360 ml 561.02 ml -56.82 ml Results Result Diagram: 11/21/16 0345 11/21/16 0345 NORMAN ACOSTA DPM Nov 21, 2016 23:56
--- NOTE | 2016-11-21 23:56 | CONS ---
Date/Time of Note Date/Time of Note DATE: 11/21/16 TIME: 23:56 Consultation Date/Type/Reason Admit Date/Time Nov 17, 2016 at 12:10 Constitutional: requiring O2 Respiratory: cough, shortness of breath Cardiovascular: No chest pain Gastrointestinal: other (swelling) Psychological: nl mood/affect, no complaints Past Medical History Medical History: congestive heart failure, hypertension, renal disease Past Surgical History Past Surgical Hx: other (Perma Cath) Social History Alcohol Use: none Smoking Status: Never smoker Drug Use: none Exam/Review of Systems Vital Signs Vitals Vital Signs Date Time Temp Pulse Resp B/P Pulse Ox O2 Delivery O2 Flow Rate FiO2 11/21/16 22:30 72 90/59 92 11/21/16 22:00 26 11/21/16 21:09 100 11/21/16 19:30 99.2 Mechanical Ventilator 11/17/16 13:04 15.0 Intake and Output 11/20/16 11/20/16 11/21/16 15:00 23:00 07:00 Intake Total 360 ml 561.02 ml 643.18 ml Output Total 700 ml Balance 360 ml 561.02 ml -56.82 ml Results Result Diagram: 11/21/16 0345 11/21/16 0345 Results 24 hrs Laboratory Tests Test 11/21/16 01:24 11/21/16 03:45 11/21/16 06:14 11/21/16 07:00 Bedside Glucose 90 94 Activated Partial Thromboplast Time 66.0 H Anion Gap 20 H Basophils # 0.0 Basophils % 0.1 Blood Urea Nitrogen 81 H Calcium Level 8.1 L Carbon Dioxide Level 25 Chloride Level 97 Creatinine 3.05 H Eosinophils # 0.3 Eosinophils % 3.7 Glucose Level 90 Hematocrit 29.5 L Hemoglobin 9.4 L Lymphocytes # 0.5 L Lymphocytes % 5.9 L Magnesium Level 1.8 Mean Corpuscular Hemoglobin 25.0 L Mean Corpuscular Hemoglobin Concent 31.9 L Mean Corpuscular Volume 78.5 L Mean Platelet Volume 10.8 H Monocytes # 0.4 Monocytes % 4.6 Neutrophils # 6.6 Neutrophils % 85.2 H Nucleated Red Blood Cells # 0.0 Nucleated Red Blood Cells % 0.0 Phosphorus Level 4.4 Platelet Count 123 L Potassium Level 4.9 Red Blood Count 3.76 L Red Cell Distribution Width 19.4 H Sodium Level 137 White Blood Count 7.8 # Arterial Blood HCO3 24.8 Arterial Blood Base Excess -1.2 Arterial Blood Oxygen Saturation 91.3 L Khoi Test ACCEPTAB Arterial Blood Gas Puncture Site Right Radial Arterial Blood Carboxyhemoglobin 0.3 Arterial Blood Date Drawn 11/21/2016 7:37:21 AM Arterial Blood Methemoglobin 0.4 Arterial Blood pCO2 (Temp correct) 46.8 H Arterial Blood pH (Temp corrected) 7.342 L Arterial Blood pO2 (Temp corrected) 65.2 L Blood Gas A-a O2 Differential 601.0 H Blood Gas Actual Respiration Rate 28 Blood Gas Low PEEP Setting 8.0 Blood Gas Modality VENT - AC Blood Gas Notified Time 11/21/2016 8:03:01 AM Blood Gas Notified Whom JLD Blood Gas Respiration Rate 16.0 Blood Gas Specimen Source Blood arterial Blood Gas Temperature 37.0 Blood Gas Tidal Volume 500.0 FiO2 100.0 Oxyhemoglobin Percent 90.7 L Total Hemoglobin 11.6 L Test 11/21/16 11:45 11/21/16 11:48 11/21/16 17:45 11/21/16 19:53 Activated Partial Thromboplast Time 109.7 *H 61.7 H Bedside Glucose 122 110 Medications Medications Current Medications Ondansetron HCl (Zofran Inj) 4 mg Q6H PRN IV NAUSEA AND/OR VOMITING; Start 11/17 at 11:00 Acetaminophen/ Hydrocodone Bitart ([place] (5/325)) 1 tab Q6H PRN PO MODERATE PAIN LEVEL 4-6; Start 11/17/16 at 11:00 Morphine Sulfate (morphine) 2 mg Q4H PRN IV SEVERE PAIN LEVEL 7-10; Start at 11:00 Magnesium Hydroxide (Milk Of Mag) 30 ml DAILY PRN PO CONSTIPATION; Start at 11:00 Sodium Biphosphate/ Sodium Phosphate (Fleet Enema) 133 ml DAILY PRN [place] CONSTIPATION; Start 11/17/16 at 11:00 Lorazepam (Ativan) 0.5 mg Q6H PRN IV ANXIETY Last administered on 11/18/16t 07: 27; Admin Dose 0.5 MG; Start 11/17/16 at 11:00 Hydralazine HCl (Apresoline) 10 mg Q6H PRN IV ELEVATED BLOOD PRESSURE; Start at 11:00 Nitroglycerin (Nitroglycerin (Sl Tab) 0.4 Mg) 1 tab Q5M PRN SL ANGINA; Start at 11:00 Acetaminophen (Tylenol Tab) 650 mg Q6H PRN PO PAIN LEVEL 1-5; Start 11/17/16 at 11:00 Allopurinol (Zyloprim) 100 mg DAILY PO Last administered on 11/21/16 08:47; Admin Dose 100 MG; Start 11/18/16 at 09:00 Aspirin (Halfprin) 81 mg DAILY PO Last administered on 11/21/16 08:46; Admin Dose 81 MG; Start 11/18/16 at 09:00 Atorvastatin Calcium (Lipitor) 10 mg QHS PO Last administered on 11/21/16 21:27 ; Admin Dose 10 MG; Start 11/17/16 at 21:00 Famotidine (Pepcid) 20 mg Q24H PO Last administered on 11/21/16 21:28; Admin Dose 20 MG; Start 11/17/16 at 21:00 Lactobacillus Acidoph/Bulgaricus (Floranex) 1 tab TID PO Last administered on 21:27; Admin Dose 1 TAB; Start 11/17/16 at 13:00 Lorazepam (Ativan) 0.5 mg Q6 PRN PO ANXIETY Last administered on 11/18/16 11:04 ; Admin Dose 0.5 MG; Start 11/17/16 at 11:00 Metoprolol Tartrate (Lopressor) 12.5 mg BID PO Last administered on 11/19/16 20 :43; Admin Dose 12.5 MG; Start 11/17/16 at 21:00 Fish Oil (Fish Oil) 1,000 mg DAILY PO Last administered on 11/21/16 08:45; Admin Dose 1,000 MG; Start 11/18/16 at 09:00 Potassium Chloride (Klor-Con 20) 40 meq DAILY PO Last administered on 11/21/16 08:46; Admin Dose 40 MEQ; Start 11/18/16 at 09:00 Pregabalin (Lyrica) 50 mg TID PO Last administered on 11/21/16 21:28; Admin Dose 50 MG; Start 11/17/16 at 13:00 Pyridoxine HCl (Vitamin B6) 100 mg DAILY PO Last administered on 11/21/16 08:48 ; Admin Dose 100 MG; Start 11/18/16 at 09:00 Simethicone (Mylicon) 80 mg Q6H PRN PO INTESTINAL SPASMS/CRAMPING; Start at 11:00 Vitamin E (Vitamin E) 400 units DAILY PO Last administered on 11/21/16 09:04; Admin Dose 400 UNITS; Start 11/18/16 at 09:00 Zolpidem Tartrate (Ambien) 10 mg QHS PRN PO INSOMNIA; Start 11/17/16 at 11:00 Fluoxetine HCl (Prozac) 20 mg DAILY PO Last administered on 11/21/16 08:47; Admin Dose 20 MG; Start 11/18/16 at 09:00 Al Hydrox/Mg Hydrox/Simethicone (Mag-Al Plus) 10 ml Q6 PRN PO DISTENSION/GAS/ BLOATING; Start 11/17/16 at 11:00 Vancomycin HCl (Vanco Iv Per Pharmacy) PER PHARMACY DOSING NOTE XX ; Start at 11:30 Miscellaneous Information 1 ea NOTE XX ; Start 11/17/16 at 11:30 Glucose (Glutose) 15 gm Q15M PRN PO DECREASED GLUCOSE; Start 11/17/16 at 11:30 Glucose (Glutose) 22.5 gm Q15M PRN PO DECREASED GLUCOSE; Start 11/17/16 at 11:30 Dextrose (D50w Syringe) 25 ml Q15M PRN IV DECREASED GLUCOSE Last administered on 11/20/16 02:28; Admin Dose 25 ML; Start 11/17/16 at 11:30 Dextrose (D50w Syringe) 50 ml Q15M PRN IV DECREASED GLUCOSE; Start 11/17/16 at 11:30 Glucagon (Glucagen) 1 mg Q15M PRN IM DECREASED GLUCOSE Last administered on 11/19 21:43; Admin Dose 1 MG; Start 11/17/16 at 11:30 Glucose (Glutose) 15 gm Q15M PRN BUCCAL DECREASED GLUCOSE; Start 11/17/16 at 11: 30 Guaifenesin (Robitussin Liquid Cup) 200 mg Q4H PRN PO COUGH; Start 11/17/16 at 16:00 Phenol (Cepastat Lozenge) 1 lozenge Q1H PRN [place] cough; Start 11/17/16 at 16:00 Apixaban (Eliquis) 2.5 mg BID PO Last administered on 11/17/16 20:13; Admin Dose 2.5 MG; Start 11/17/16 at 21:00; Status Future Hold Bisacodyl (Dulcolax Supp) 10 mg Q24H PRN [place] CONSTIPATION; Start 11/17/16 at 16: 30 Cholecalciferol (Vitamin D) 1,000 unit DAILY PO Last administered on 11/21/16 08:48; Admin Dose 1,000 UNIT; Start 11/18/16 at 09:00 Diphenhydramine HCl (Benadryl) 25 mg BID PRN PO ITCHING; Start 11/17/16 at 16:30 Multivitamins Therapeutic (Theragran) 1 tab DAILY PO Last administered on 08:48; Admin Dose 1 TAB; Start 11/18/16 at 09:00 Zinc Sulfate 220 mg 220 mg DAILY PO Last administered on 11/21/16 09:04; Admin Dose 220 MG; Start 11/18/16 at 09:00 Propofol 100 ml @ 3.96 mls/hr Q12H IV Last administered on 11/21/16 19:31; Admin Dose 15.84 MLS/HR; Start 11/18/16 at 12:30 Fentanyl (Sublimaze) 100 ml @ 2.5 mls/hr TITRATE IV Last administered on 14:02; Admin Dose 2.5 MLS/HR; Start 11/18/16 at 12:30 Ferrous Sulfate (Feosol Liquid Cup) 300 mg BID GTB Last administered on 21:27; Admin Dose 300 MG; Start 11/18/16 at 21:00 Acetaminophen (Tylenol Liquid) 650 mg Q6 PRN NGT PAIN AND OR ELEVATED TEMP Last administered on 11/19/16 18:41; Admin Dose 650 MG; Start 11/19/16 at 03:30 Amikacin Sulfate (Amikacin Iv Per Pharmacy) AMIKACIN PER PHARMACY NOTE XX ; Start 11/20/16 at 11:30 Insulin Aspart (Novolog Insulin Pen) NOVOLOG *MILD* ALGORI... Q6 SC ; Start 11/20 at 18:00 Nystatin/ Triamcinolone Acetonide (Mycolog Oint) 1 applic BID TOP Last administered on 11/21/16 21:29; Admin Dose 1 APPLIC; Start 11/20/16 at 21:00 Docusate Sodium 200 mg 200 mg BID GTB Last administered on 11/21/16 21:27; Admin Dose 200 MG; Start 11/21/16 at 21:00 Meropenem (Merrem 500 Mg/ 100 ml (Pmx)) 100 ml @ 200 mls/hr Q24H IVPB Last administered on 11/21/16 13:43; Admin Dose 200 MLS/HR; Start 11/21/16 at 14:00 Fluconazole (Diflucan) 100 mg DAILY NGT Last administered on 11/21/16 14:02; Admin Dose 100 MG; Start 11/21/16 at 12:30 Miscellaneous Information (*Rx Drug Level Order Reminder*) VANCO RANDOM LEVEL... ONCE ONCE XX ; Start 11/22/16 at 05:00; Stop 11/22/16 at 05:01 Methylprednisolone Sodium Succinate 40 mg 40 mg Q8 IV Last administered on 21:29; Admin Dose 40 MG; Start 11/21/16 at 16:00 Norepinephrine 250 ml @ 1.875 mls/ hr TITRATE IV ; Start 11/21/16 at 16:00; Stop 11/22/16 at 07:00 Norepinephrine/ Dextrose (Levophed/D5W) 500 ml @ 0 mls/hr TITRATE IV ; Start 11/22/16 at 07:00 NORMAN ACOSTA DPM Nov 21, 2016 23:56
[2016-11-22] VITALS (73 sets, daily range): BP systolic 74–152; BP diastolic 52–82; PULSE 51–76; RESP 26–31
[2016-11-22] MEDS: INSULIN ASPART [NOVOLOG] 3 ML PEN SC SCH ×4 (00:59→17:20)
[2016-11-22] MEDS: ALBUTEROL HFA 8 GM INHALER INH SCH ×6 (01:13→21:21)
[2016-11-22] MEDS: IPRATROPIUM (HFA) 12.9 GM INHALER INH PRN ×5 (01:13→16:57)
[2016-11-22] MEDS: PROPOFOL 100 ML IV SCH ×4 (01:50→20:07)
[2016-11-22 05:48] LABS: ADD SCAN DIFF NO
[2016-11-22 06:00] LABS: ABNORMAL IP MESSAGE 1; EOSINOPHILS % 0.2 % (0.0-7.0); HEMATOCRIT 31.1 % (42.0-52.0); HEMOGLOBIN 9.7 g/dl (14.0-18.0); LYMPHOCYTES # 0.3 10^3/ul (0.8-2.9); LYMPHOCYTES % 6.6 % (15.0-51.0); MEAN CORPUSCULAR HEMOGLOBIN 24.5 pg (29.0-33.0); MEAN CORPUSCULAR HGB CONC 31.2 g/dl (32.0-37.0); MEAN CORPUSCULAR VOLUME 78.5 fl (82.0-101.0); MEAN PLATELET VOLUME 10.3 fl (7.4-10.4); MONOCYTE # 0.1 10^3/ul (0.3-0.9); MONOCYTES % 1.9 % (0.0-11.0); NEUTROPHIL # 4.7 10^3/ul (1.6-7.5); NEUTROPHILS % 90.5 % (39.0-77.0); PLATELET COUNT 114 10^3/UL (140-415); RED BLOOD COUNT 3.96 10^6/ul (4.70-6.10); RED CELL DISTRIBUTION WIDTH 19.5 % (11.5-14.5); WHITE BLOOD COUNT 5.2 10^3/ul (4.8-10.8)
[2016-11-22] MEDS: METHYLPREDNISOLONE 40 MG INJ IV SCH ×3 (06:27→21:03)
[2016-11-22 06:42] LABS: POTASSIUM 4.9 mmol/L (3.5-5.1)
[2016-11-22 06:44] LABS: CREATININE 2.83 mg/dl (0.61-1.24)
[2016-11-22] MEDS: FERROUS SULFATE 60 MG/ML 5ML CUP GTB SCH ×2 (08:57→20:05)
[2016-11-22] MEDS: DOCUSATE SODIUM 10 MG/ML (10ML CUP) GTB SCH ×2 (08:57→20:04)
[2016-11-22] MEDS: SEVELAMER CARBONATE 0.8 GM PKT PO SCH ×3 (08:57→17:24)
[2016-11-22] MEDS: LACTOBACILLUS CHEW TAB PO SCH ×3 (08:58→20:37)
[2016-11-22] MEDS: CHOLECALCIFEROL 1,000 UNIT TAB PO SCH (08:58)
[2016-11-22] MEDS: VITAMIN E 400 UNITS CAP PO SCH (08:58)
[2016-11-22] MEDS: FISH OIL 1,000 MG CAP PO SCH (08:58)
[2016-11-22] MEDS: PYRIDOXINE 50 MG TAB PO SCH (08:58)
[2016-11-22] MEDS: FLUCONAZOLE 100 MG TAB NGT SCH (08:59)
[2016-11-22] MEDS: ASPIRIN (EC) 81 MG TAB PO SCH (08:59)
[2016-11-22] MEDS: POTASSIUM CHLORIDE (SR) 20 MEQ TAB PO SCH (08:59)
[2016-11-22] MEDS: ALLOPURINOL 100 MG TAB PO SCH (08:59)
[2016-11-22] MEDS: ZINC SULFATE 220 MG CAP PO SCH (08:59)
[2016-11-22] MEDS: METOPROLOL 25 MG TAB PO SCH ×2 (09:00→20:06)
--- NOTE | 2016-11-22 09:20 | PN ---
DATE: 11/22/2016 CARDIOLOGY FOLLOWUP SUBJECTIVE: Discussed with the staff. Rhythm strip was reviewed. The patient remains intubated on the vent. Still severely hypoxemic with 100% oxygen. Heart rate and blood pressure are under cont rol. Blood pressure on the low side though, but no pressors needed. Heart rate remains stable. T he patient still continues to be desaturating even at 100% oxygen. Still in the ICU on the vent, se dated, nonverbal. MEDICATIONS: Reviewed as per medical reconciliation, personally reviewed. PHYSICAL EXAMINATION: VITAL SIGNS: Temperature 98.9, heart rate of 64, blood pressure 86/ , respiratory rate of 26. HEENT: Normocephalic, atraumatic. Obese gentleman. Pupils are equal. Status post intubation on t he vent. CARDIOVASCULAR: Irregularly irregular, systolic murmur. PULMONARY: With mild rhonchi, diffuse. GASTROINTESTINAL: Soft, obese, nontender. EXTREMITIES: Positive edema. . Diffuse ulceration of the foot. NEUROLOGIC: Sedated. PSYCHIATRIC: Calm. LABORATORY DATA: WBC of 5.2, hemoglobin 9.7, platelet 114. Sodium 142, potassium 4.9, BUN of 66, c reatinine 2.83, glucose of 206. PTT of 71.1. Chest x-ray shows cardiomegaly, stable central pulmon bhaskar vascular congestion, interstitial prominence in both lungs. ASSESSMENT AND PLAN: 1. Severe hypoxemic respiratory failure, status post intubation on the vent, requiring very high am ount of oxygen still. 2. Multilobar pneumonia. 3. Pulmonary vascular congestion, fluid overload secondary to diastolic dysfunction. 4. Atrial fibrillation, chronic. Heart rate controlled, currently anticoagulated with heparin. 5. Renal failure on dialysis. 6. Electrolyte abnormalities. 7. Dyslipidemia. 8. History of peripheral vascular disease. 9. Morbid obesity. 10. History of previous respiratory failure and tracheostomy, currently has been removed. RECOMMENDATIONS: Broad-spectrum antibiotic is being adjusted as per internal medicine. The patient currently on heparin for anticoagulation. Consider switching it back to Eliquis. Vent support kosta l be continued. Oxygen support will be continued. Continue with the ICU care. More than 36 minutes of critical care time was spent in management of this patient excluding any pro cedures. Dictated By: GARDENIA NELSON MD AV/GREGORY Conf#: [id number] DID#: [id number] CC: GERI LINDO MD;*[facility]*
[2016-11-22] MEDS: FLUOXETINE 20 MG CAP PO SCH (09:21)
[2016-11-22] MEDS: MULTIVITAMINS THERAPEUTIC TAB PO SCH (09:22)
[2016-11-22] MEDS: PREGABALIN 25 MG CAP PO SCH ×3 (09:24→20:05)
[2016-11-22] MEDS: NYSTATIN/TRIAMCINOLONE 15 GM OINT TOP SCH ×2 (09:24→20:07)
--- NOTE | 2016-11-22 09:56 | PN ---
Date/Time of Note Date/Time of Note DATE: 11/22/16 TIME: 09:47 Assessment/Plan VTE Prophylaxis VTE Prophylaxis Intervention: heparin Lines/Catheters IV [facility]from [facility] CATH Urinary Cath still in place: Yes Reason Cath still needed: other (indicate) Assessment/Plan Assessment/Plan A 61-year-old male with a history of type 2 diabetes, peripheral vascular disease, prior respiratory insufficiency, end-stage renal disease, on dialysis, who presents with a cough for 1 week and SOB managed as follows: 1. Hypoxemic / Hypercapnic resp failure / Vent dependent / 2/2 severe PNA 2. CHF exacerbation diastolic 3. Moderate tricuspid regurgitation 4. Pulmonary hypertension 5. ESRD on HD 6. Morbid obesity / cannot r/o OHS 7. COPD 8. HTN > hyypotensive 9. Paroxysmal Afib 10. DM2 11. Chronic depression 12. Blake LE cellulitis with Chronic foot ulcer and hx of osteomyelitis 13. Hx of PVD / Gout 14. Pancytopenia with microcytosis: mild iron deficiency noted 15. Extensive Multifocal Pneumonia Michelle / cannot r/o bacterial component 16. History of multiple previous respiratory failure and tracheostomy in the past. 17. Pulmonary lymphadenopathy: reactive versus neoplastic PLAN: * Continue daily dialysis as tolerated * PRN pressor support * Continue Vent support and mgt/ patient still requiring 100% o2 * Continue aggressive abx regimen / heparin drip * Continue scheduled bronchodilator therapy * Continue SSI / Continue tube feeds * Continue iron replacement therapy * continue Icu supportive care * Defer to pulm for mgt of lymphadenopathy / possibly repeat CT once pneumonia is improved. PROPHYLAXIS: Heparin / PPI CRITICAL CARE TIME: >35 mins Subjective 24 Hr Interval Summary Free Text/Dictation Patient seen and examined. Nursing reports no acute overnight events. Intubated and sedated for comfort, Spoke with in detail Exam/Review of Systems Vital Signs Vitals Vital Signs Date Time Temp Pulse Resp B/P Pulse Ox O2 Delivery O2 Flow Rate FiO2 11/22/16 09:16 61 26 95 100 11/22/16 06:30 86/56 11/22/16 04:00 98.9 Mechanical Ventilator Intake and Output 11/21/16 11/21/16 11/22/16 14:59 22:59 06:59 Intake Total 1146.62 ml 740.66 ml 593.86 ml Output Total 3705 ml 52 ml 35 ml Balance -2558.38 ml 688.66 ml 558.86 ml Exam Constitutional: obese, oriented, No alert Psych: other (unable to assess) Head: normocephalic Eyes: PERRL ENMT: intubated Respiratory: diminished breath sounds, No wheezing Cardiovascular: regular rate and rhythm, No murmurs/extra sounds Gastrointestinal: bowel sounds, other (protuberant), soft Musculoskeletal: No nl extremities to inspection Extremities: edema 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: lethargic Skin: other (erythematous skin in both lower extremities with diffuse non pitting edema up to knees bilaterally and chronic keratotic skin changes and toe ulcer) Results Result Diagram: 11/22/16 0450 11/22/16 0450 Results 24 hrs Laboratory Tests Test 11/21/16 11:45 11/21/16 11:48 11/21/16 17:45 11/21/16 19:53 Activated Partial Thromboplast Time 109.7 *H 61.7 H Bedside Glucose 122 110 Test 11/22/16 00:52 11/22/16 04:50 11/22/16 06:27 Bedside Glucose 163 192 Activated Partial Thromboplast Time 71.7 *H Anion Gap 18 H Basophils # 0.0 Basophils % 0.0 Blood Urea Nitrogen 66 H Calcium Level 8.0 L Carbon Dioxide Level 28 Chloride Level 101 Creatinine 2.83 H Eosinophils # 0.0 Eosinophils % 0.2 Glucose Level 206 # Hematocrit 31.1 L Hemoglobin 9.7 L Lymphocytes # 0.3 L Lymphocytes % 6.6 L Mean Corpuscular Hemoglobin 24.5 L Mean Corpuscular Hemoglobin Concent 31.2 L Mean Corpuscular Volume 78.5 L Mean Platelet Volume 10.3 Monocytes # 0.1 L Monocytes % 1.9 Neutrophils # 4.7 Neutrophils % 90.5 H Nucleated Red Blood Cells # 0.0 Nucleated Red Blood Cells % 0.0 Platelet Count 114 L Potassium Level 4.9 Random Vancomycin Level 14.1 Red Blood Count 3.96 L Red Cell Distribution Width 19.5 H Sodium Level 142 White Blood Count 5.2 # Medications Medications Current Medications Ondansetron HCl (Zofran Inj) 4 mg Q6H PRN IV NAUSEA AND/OR VOMITING; Start 11/17 at 11:00 Acetaminophen/ Hydrocodone Bitart ([place] (5/325)) 1 tab Q6H PRN PO MODERATE PAIN LEVEL 4-6; Start 11/17/16 at 11:00 Morphine Sulfate (morphine) 2 mg Q4H PRN IV SEVERE PAIN LEVEL 7-10; Start at 11:00 Magnesium Hydroxide (Milk Of Mag) 30 ml DAILY PRN PO CONSTIPATION; Start at 11:00 Sodium Biphosphate/ Sodium Phosphate (Fleet Enema) 133 ml DAILY PRN [place] CONSTIPATION; Start 11/17/16 at 11:00 Lorazepam (Ativan) 0.5 mg Q6H PRN IV ANXIETY Last administered on 11/18/16 07: 27; Admin Dose 0.5 MG; Start 11/17/16 at 11:00 Hydralazine HCl (Apresoline) 10 mg Q6H PRN IV ELEVATED BLOOD PRESSURE; Start at 11:00 Nitroglycerin (Nitroglycerin (Sl Tab) 0.4 Mg) 1 tab Q5M PRN SL ANGINA; Start at 11:00 Acetaminophen (Tylenol Tab) 650 mg Q6H PRN PO PAIN LEVEL 1-5; Start 11/17/16 at 11:00 Allopurinol (Zyloprim) 100 mg DAILY PO Last administered on 11/22/16 08:59; Admin Dose 100 MG; Start 11/18/16 at 09:00 Aspirin (Halfprin) 81 mg DAILY PO Last administered on 11/22/16 08:59; Admin Dose 81 MG; Start 11/18/16 at 09:00 Atorvastatin Calcium (Lipitor) 10 mg QHS PO Last administered on 11/21/16 21:27 ; Admin Dose 10 MG; Start 11/17/16 at 21:00 Famotidine (Pepcid) 20 mg Q24H PO Last administered on 11/21/16 21:28; Admin Dose 20 MG; Start 11/17/16 at 21:00 Lactobacillus Acidoph/Bulgaricus (Floranex) 1 tab TID PO Last administered on 08:58; Admin Dose 1 TAB; Start 11/17/16 at 13:00 Lorazepam (Ativan) 0.5 mg Q6 PRN PO ANXIETY Last administered on 11/18/16 11:04 ; Admin Dose 0.5 MG; Start 11/17/16 at 11:00 Metoprolol Tartrate (Lopressor) 12.5 mg BID PO Last administered on 11/19/16 20 :43; Admin Dose 12.5 MG; Start 11/17/16 at 21:00 Fish Oil (Fish Oil) 1,000 mg DAILY PO Last administered on 11/22/16 08:58; Admin Dose 1,000 MG; Start 11/18/16 at 09:00 Potassium Chloride (Klor-Con 20) 40 meq DAILY PO Last administered on 11/22/16 08:59; Admin Dose 40 MEQ; Start 11/18/16 at 09:00 Pregabalin (Lyrica) 50 mg TID PO Last administered on 11/22/16 09:24; Admin Dose 50 MG; Start 11/17/16 at 13:00 Pyridoxine HCl (Vitamin B6) 100 mg DAILY PO Last administered on 11/22/16 08:58 ; Admin Dose 100 MG; Start 11/18/16 at 09:00 Simethicone (Mylicon) 80 mg Q6H PRN PO INTESTINAL SPASMS/CRAMPING; Start at 11:00 Vitamin E (Vitamin E) 400 units DAILY PO Last administered on 11/22/16 08:58; Admin Dose 400 UNITS; Start 11/18/16 at 09:00 Zolpidem Tartrate (Ambien) 10 mg QHS PRN PO INSOMNIA; Start 11/17/16 at 11:00 Fluoxetine HCl (Prozac) 20 mg DAILY PO Last administered on 11/22/16 09:21; Admin Dose 20 MG; Start 11/18/16 at 09:00 Al Hydrox/Mg Hydrox/Simethicone (Mag-Al Plus) 10 ml Q6 PRN PO DISTENSION/GAS/ BLOATING; Start 11/17/16 at 11:00 Vancomycin HCl (Vanco Iv Per Pharmacy) PER PHARMACY DOSING NOTE XX ; Start at 11:30 Miscellaneous Information 1 ea NOTE XX ; Start 11/17/16 at 11:30 Glucose (Glutose) 15 gm Q15M PRN PO DECREASED GLUCOSE; Start 11/17/16 at 11:30 Glucose (Glutose) 22.5 gm Q15M PRN PO DECREASED GLUCOSE; Start 11/17/16 at 11:30 Dextrose (D50w Syringe) 25 ml Q15M PRN IV DECREASED GLUCOSE Last administered on 11/20/16 02:28; Admin Dose 25 ML; Start 11/17/16 at 11:30 Dextrose (D50w Syringe) 50 ml Q15M PRN IV DECREASED GLUCOSE; Start 11/17/16 at 11:30 Glucagon (Glucagen) 1 mg Q15M PRN IM DECREASED GLUCOSE Last administered on 11/19 21:43; Admin Dose 1 MG; Start 11/17/16 at 11:30 Glucose (Glutose) 15 gm Q15M PRN BUCCAL DECREASED GLUCOSE; Start 11/17/16 at 11: 30 Guaifenesin (Robitussin Liquid Cup) 200 mg Q4H PRN PO COUGH; Start 11/17/16 at 16:00 Phenol (Cepastat Lozenge) 1 lozenge Q1H PRN MT cough; Start 11/17/16 at 16:00 Apixaban (Eliquis) 2.5 mg BID PO Last administered on 11/17/16 20:13; Admin Dose 2.5 MG; Start 11/17/16 at 21:00; Status Future Hold Bisacodyl (Dulcolax Supp) 10 mg Q24H PRN [place] CONSTIPATION; Start 11/17/16 at 16: 30 Cholecalciferol (Vitamin D) 1,000 unit DAILY PO Last administered on 11/22/16 08:58; Admin Dose 1,000 UNIT; Start 11/18/16 at 09:00 Diphenhydramine HCl (Benadryl) 25 mg BID PRN PO ITCHING; Start 11/17/16 at 16:30 Multivitamins Therapeutic (Theragran) 1 tab DAILY PO Last administered on 09:22; Admin Dose 1 TAB; Start 11/18/16 at 09:00 Zinc Sulfate 220 mg 220 mg DAILY PO Last administered on 11/22/16 08:59; Admin Dose 220 MG; Start 11/18/16 at 09:00 Propofol 100 ml @ 3.96 mls/hr Q12H IV Last administered on 11/22/16 06:34; Admin Dose 17.424 MLS/HR; Start 11/18/16 at 12:30 Fentanyl (Sublimaze) 100 ml @ 2.5 mls/hr TITRATE IV Last administered on 14:02; Admin Dose 2.5 MLS/HR; Start 11/18/16 at 12:30 Ferrous Sulfate (Feosol Liquid Cup) 300 mg BID GTB Last administered on 08:57; Admin Dose 300 MG; Start 11/18/16 at 21:00 Acetaminophen (Tylenol Liquid) 650 mg Q6 PRN NGT PAIN AND OR ELEVATED TEMP Last administered on 11/19/16 18:41; Admin Dose 650 MG; Start 11/19/16 at 03:30 Amikacin Sulfate (Amikacin Iv Per Pharmacy) AMIKACIN PER PHARMACY NOTE XX ; Start 11/20/16 at 11:30 Insulin Aspart (Novolog Insulin Pen) NOVOLOG *MILD* ALGORI... Q6 SC Last administered on 11/22/16 06:31; Admin Dose 2 UNIT; Start 11/20/16 at 18:00 Nystatin/ Triamcinolone Acetonide (Mycolog Oint) 1 applic BID TOP Last administered on 11/22/16 09:24; Admin Dose 1 APPLIC; Start 11/20/16 at 21:00 Docusate Sodium 200 mg 200 mg BID GTB Last administered on 11/22/16 08:57; Admin Dose 200 MG; Start 11/21/16 at 21:00 Meropenem (Merrem 500 Mg/ 100 ml (Pmx)) 100 ml @ 200 mls/hr Q24H IVPB Last administered on 11/21/16 13:43; Admin Dose 200 MLS/HR; Start 11/21/16 at 14:00 Fluconazole (Diflucan) 100 mg DAILY NGT Last administered on 11/22/16 08:59; Admin Dose 100 MG; Start 11/21/16 at 12:30 Methylprednisolone Sodium Succinate 40 mg 40 mg Q8 IV Last administered on 06:27; Admin Dose 40 MG; Start 11/21/16 at 16:00 Norepinephrine/ Dextrose (Levophed/D5W) 500 ml @ 0 mls/hr TITRATE IV ; Start 11/22/16 at 07:00 GERI LINDO Nov 22, 2016 09:55
--- NOTE | 2016-11-22 11:00 | PN ---
DATE: REASON FOR FOLLOWUP: Respiratory failure. SUBJECTIVE: The patient currently remains stable on mechanical ventilation, continues 100% FIO2. VITAL SIGNS: Temperature 98, pulse 61, blood pressure 90/50, O2 saturation 96% on FIO2 of 100%, ora lly intubated. HEENT: Dry mucous membranes. Pupils equal and reactive to light. CARDIAC: S1, S2, no added sounds or murmurs. CHEST: Diminished air entry bilaterally. ABDOMEN: Soft, nontender. No guarding or rebound. EXTREMITIES: No cyanosis or clubbing. NEUROLOGIC: Generalized weakness. LABORATORY DATA: White count 5.2, hemoglobin 9.7, platelets of 114, BUN 66, creatinine 2.83. IMAGING: Chest x-ray reviewed from yesterday shows ongoing bilateral interstitial infiltrates. IMPRESSION AND PLAN: 1. Hypoxemic respiratory failure. 2. Pulmonary edema. 3. Likely healthcare-associated pneumonia. 4. Possible interstitial pneumonitis. 5. End-stage renal failure on hemodialysis. PLAN: 1. Continue with vent support. 2. Continue steroids. 3. Continue DVT and GI prophylaxis. Dictated By: EDNA COLINDRES/GREGORY Conf#: [id number] DID#: [id number]
--- NOTE | 2016-11-22 11:08 | PN ---
DATE: 11/22/2016 SUBJECTIVE: The patient remains stable on mechanical ventilation, continues 100% FIO2. No signifi cant changes overnight. PHYSICAL EXAMINATION: VITAL SIGNS: Temperature 98, pulse 61, blood pressure 90/60, O2 saturation 96% on 100% FIO2, orally intubated at 9 cm. HEENT: Pupils equal and reactive to light. CARDIAC: S1, S2, no added sounds or murmurs. CHEST: Diminished air entry bilaterally. ABDOMEN: Obese, soft, nontender, no guarding, no rebound. EXTREMITIES: No cyanosis, clubbing, 1+ edema. NEUROLOGIC: Generalized weakness. LABORATORY DATA: Last BUN 66, creatinine 2.83. White count 5.2, hemoglobin 9.7, PTT 71. IMPRESSION AND PLAN: 1. Hypoxemic respiratory failure. 2. Bilateral pneumonia, likely healthcare-associated. 3. End-stage renal failure on hemodialysis. 4. History of respiratory failure with tracheostomy. The patient will require: 1. Continued vent. 2. Steroids. 3. Dialysis. 4. Tube feeding. 5. Family conference to discuss goals of care, as patient is unlikely to come off mechanical ve ntilation on this admission. Dictated By: EDNA COLINDRES/GREGORY Conf#: [id number] DID#: [id number]
--- NOTE | 2016-11-22 11:53 | CONS ---
Date/Time of Note Date/Time of Note DATE: 11/22/16 TIME: 11:53 Assessment/Plan Assessment/Plan Additional Assessment/Plan 61 yo Male with 1) Respiratory failure 2nd to PNA and CHF 2) Volume Overload 3) ESRD on HD MWF 4) Anemia, Chronic, CKD 5) Mineral Bone Disease, CKD 6) Respiratory Acidosis, CO2 Retention with AG Acidosis 7) Type 2 DM 8) Chronic HTN S/p HD yesterday Cont Supportive care Hold HD today, Re-assess tomorrow. Will cont to closely follow along with you Consultation Date/Type/Reason Admit Date/Time Nov 17, 2016 at 12:10 Initial Consult Date 11/17/16 Type of Consultation: renal Referring Provider: FELIX SCOTT 24 HR Interval Summary Free Text/Dictation S/p HD yesterday, No Pressors Subjective hx not possible: pt critical status Exam/Review of Systems Vital Signs Vitals Vital Signs Date Time Temp Pulse Resp B/P Pulse Ox O2 Delivery O2 Flow Rate FiO2 11/22/16 11:22 66 30 95 100 11/22/16 10:30 85/56 11/22/16 10:00 Mechanical Ventilator 11/22/16 08:00 98.8 Intake and Output 11/21/16 11/21/16 11/22/16 15:00 23:00 07:00 Intake Total 1262.02 ml 642.84 ml 524.94 ml Output Total 3705 ml 52 ml 35 ml Balance -2442.98 ml 590.84 ml 489.94 ml Exam Constitutional: No distress ENMT: intubated, mucosa pink and moist Respiratory: crackles/rales, diminished breath sounds Cardiovascular: edema, regular rate and rhythm Gastrointestinal: non-tender, soft 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: other (sedated) Results Result Diagram: 11/22/16 0450 11/22/16 0450 Results 24 hrs Laboratory Tests Test 11/21/16 17:45 11/21/16 19:53 11/22/16 00:52 11/22/16 04:50 Bedside Glucose 110 163 Activated Partial Thromboplast Time 61.7 H 71.7 *H Anion Gap 18 H Basophils # 0.0 Basophils % 0.0 Blood Urea Nitrogen 66 H Calcium Level 8.0 L Carbon Dioxide Level 28 Chloride Level 101 Creatinine 2.83 H Eosinophils # 0.0 Eosinophils % 0.2 Glucose Level 206 # Hematocrit 31.1 L Hemoglobin 9.7 L Lymphocytes # 0.3 L Lymphocytes % 6.6 L Mean Corpuscular Hemoglobin 24.5 L Mean Corpuscular Hemoglobin Concent 31.2 L Mean Corpuscular Volume 78.5 L Mean Platelet Volume 10.3 Monocytes # 0.1 L Monocytes % 1.9 Neutrophils # 4.7 Neutrophils % 90.5 H Nucleated Red Blood Cells # 0.0 Nucleated Red Blood Cells % 0.0 Platelet Count 114 L Potassium Level 4.9 Random Vancomycin Level 14.1 Red Blood Count 3.96 L Red Cell Distribution Width 19.5 H Sodium Level 142 White Blood Count 5.2 # Test 11/22/16 06:27 Bedside Glucose 192 Medications Medications Current Medications Ondansetron HCl (Zofran Inj) 4 mg Q6H PRN IV NAUSEA AND/OR VOMITING; Start 11/17 at 11:00 Acetaminophen/ Hydrocodone Bitart ([place] (5/325)) 1 tab Q6H PRN PO MODERATE PAIN LEVEL 4-6; Start 11/17/16 at 11:00 Morphine Sulfate (morphine) 2 mg Q4H PRN IV SEVERE PAIN LEVEL 7-10; Start at 11:00 Magnesium Hydroxide (Milk Of Mag) 30 ml DAILY PRN PO CONSTIPATION; Start at 11:00 Sodium Biphosphate/ Sodium Phosphate (Fleet Enema) 133 ml DAILY PRN [place] CONSTIPATION; Start 11/17/16 at 11:00 Lorazepam (Ativan) 0.5 mg Q6H PRN IV ANXIETY Last administered on 11/18/16 07: 27; Admin Dose 0.5 MG; Start 11/17/16 at 11:00 Hydralazine HCl (Apresoline) 10 mg Q6H PRN IV ELEVATED BLOOD PRESSURE; Start at 11:00 Nitroglycerin (Nitroglycerin (Sl Tab) 0.4 Mg) 1 tab Q5M PRN SL ANGINA; Start at 11:00 Acetaminophen (Tylenol Tab) 650 mg Q6H PRN PO PAIN LEVEL 1-5; Start 11/17/16 at 11:00 Allopurinol (Zyloprim) 100 mg DAILY PO Last administered on 11/22/16 08:59; Admin Dose 100 MG; Start 11/18/16 at 09:00 Aspirin (Halfprin) 81 mg DAILY PO Last administered on 11/22/16 08:59; Admin Dose 81 MG; Start 11/18/16 at 09:00 Atorvastatin Calcium (Lipitor) 10 mg QHS PO Last administered on 11/21/16 21:27 ; Admin Dose 10 MG; Start 11/17/16 at 21:00 Famotidine (Pepcid) 20 mg Q24H PO Last administered on 11/21/16 21:28; Admin Dose 20 MG; Start 11/17/16 at 21:00 Lactobacillus Acidoph/Bulgaricus (Floranex) 1 tab TID PO Last administered on 08:58; Admin Dose 1 TAB; Start 11/17/16 at 13:00 Lorazepam (Ativan) 0.5 mg Q6 PRN PO ANXIETY Last administered on 11/18/16 11:04 ; Admin Dose 0.5 MG; Start 11/17/16 at 11:00 Metoprolol Tartrate (Lopressor) 12.5 mg BID PO Last administered on 11/19/16 20 :43; Admin Dose 12.5 MG; Start 11/17/16 at 21:00 Fish Oil (Fish Oil) 1,000 mg DAILY PO Last administered on 11/22/16 08:58; Admin Dose 1,000 MG; Start 11/18/16 at 09:00 Potassium Chloride (Klor-Con 20) 40 meq DAILY PO Last administered on 11/22/16 08:59; Admin Dose 40 MEQ; Start 11/18/16 at 09:00 Pregabalin (Lyrica) 50 mg TID PO Last administered on 11/22/16 09:24; Admin Dose 50 MG; Start 11/17/16 at 13:00 Pyridoxine HCl (Vitamin B6) 100 mg DAILY PO Last administered on 11/22/16 08:58 ; Admin Dose 100 MG; Start 11/18/16 at 09:00 Simethicone (Mylicon) 80 mg Q6H PRN PO INTESTINAL SPASMS/CRAMPING; Start at 11:00 Vitamin E (Vitamin E) 400 units DAILY PO Last administered on 11/22/16 08:58; Admin Dose 400 UNITS; Start 11/18/16 at 09:00 Zolpidem Tartrate (Ambien) 10 mg QHS PRN PO INSOMNIA; Start 11/17/16 at 11:00 Fluoxetine HCl (Prozac) 20 mg DAILY PO Last administered on 11/22/16 09:21; Admin Dose 20 MG; Start 11/18/16 at 09:00 Al Hydrox/Mg Hydrox/Simethicone (Mag-Al Plus) 10 ml Q6 PRN PO DISTENSION/GAS/ BLOATING; Start 11/17/16 at 11:00 Vancomycin HCl (Vanco Iv Per Pharmacy) PER PHARMACY DOSING NOTE XX ; Start at 11:30 Miscellaneous Information 1 ea NOTE XX ; Start 11/17/16 at 11:30 Glucose (Glutose) 15 gm Q15M PRN PO DECREASED GLUCOSE; Start 11/17/16 at 11:30 Glucose (Glutose) 22.5 gm Q15M PRN PO DECREASED GLUCOSE; Start 11/17/16 at 11:30 Dextrose (D50w Syringe) 25 ml Q15M PRN IV DECREASED GLUCOSE Last administered on 11/20/16 02:28; Admin Dose 25 ML; Start 11/17/16 at 11:30 Dextrose (D50w Syringe) 50 ml Q15M PRN IV DECREASED GLUCOSE; Start 11/17/16 at 11:30 Glucagon (Glucagen) 1 mg Q15M PRN IM DECREASED GLUCOSE Last administered on 11/19 21:43; Admin Dose 1 MG; Start 11/17/16 at 11:30 Glucose (Glutose) 15 gm Q15M PRN BUCCAL DECREASED GLUCOSE; Start 11/17/16 at 11: 30 Guaifenesin (Robitussin Liquid Cup) 200 mg Q4H PRN PO COUGH; Start 11/17/16 at 16:00 Phenol (Cepastat Lozenge) 1 lozenge Q1H PRN MT cough; Start 11/17/16 at 16:00 Bisacodyl (Dulcolax Supp) 10 mg Q24H PRN [place] CONSTIPATION; Start 11/17/16 at 16: 30 Cholecalciferol (Vitamin D) 1,000 unit DAILY PO Last administered on 11/22/16 08:58; Admin Dose 1,000 UNIT; Start 11/18/16 at 09:00 Diphenhydramine HCl (Benadryl) 25 mg BID PRN PO ITCHING; Start 11/17/16 at 16:30 Multivitamins Therapeutic (Theragran) 1 tab DAILY PO Last administered on 09:22; Admin Dose 1 TAB; Start 11/18/16 at 09:00 Zinc Sulfate 220 mg 220 mg DAILY PO Last administered on 11/22/16 08:59; Admin Dose 220 MG; Start 11/18/16 at 09:00 Propofol 100 ml @ 3.96 mls/hr Q12H IV Last administered on 11/22/16 06:34; Admin Dose 17.424 MLS/HR; Start 11/18/16 at 12:30 Fentanyl (Sublimaze) 100 ml @ 2.5 mls/hr TITRATE IV Last administered on 14:02; Admin Dose 2.5 MLS/HR; Start 11/18/16 at 12:30 Ferrous Sulfate (Feosol Liquid Cup) 300 mg BID GTB Last administered on 08:57; Admin Dose 300 MG; Start 11/18/16 at 21:00 Acetaminophen (Tylenol Liquid) 650 mg Q6 PRN NGT PAIN AND OR ELEVATED TEMP Last administered on 11/19/16 18:41; Admin Dose 650 MG; Start 11/19/16 at 03:30 Amikacin Sulfate (Amikacin Iv Per Pharmacy) AMIKACIN PER PHARMACY NOTE XX ; Start 11/20/16 at 11:30 Insulin Aspart (Novolog Insulin Pen) NOVOLOG *MILD* ALGORI... Q6 SC Last administered on 11/22/16 06:31; Admin Dose 2 UNIT; Start 11/20/16 at 18:00 Nystatin/ Triamcinolone Acetonide (Mycolog Oint) 1 applic BID TOP Last administered on 11/22/16 09:24; Admin Dose 1 APPLIC; Start 11/20/16 at 21:00 Docusate Sodium 200 mg 200 mg BID GTB Last administered on 11/22/16 08:57; Admin Dose 200 MG; Start 11/21/16 at 21:00 Meropenem (Merrem 500 Mg/ 100 ml (Pmx)) 100 ml @ 200 mls/hr Q24H IVPB Last administered on 11/21/16 13:43; Admin Dose 200 MLS/HR; Start 11/21/16 at 14:00 Fluconazole (Diflucan) 100 mg DAILY NGT Last administered on 11/22/16 08:59; Admin Dose 100 MG; Start 11/21/16 at 12:30 Methylprednisolone Sodium Succinate 40 mg 40 mg Q8 IV Last administered on 06:27; Admin Dose 40 MG; Start 11/21/16 at 16:00 Norepinephrine/ Dextrose (Levophed/D5W) 500 ml @ 0 mls/hr TITRATE IV ; Start 11/22/16 at 07:00 Apixaban (Eliquis) 5 mg BID PO ; Start 11/22/16 at 21:00 Procedures Procedures PROCEDURE: XR Chest 1 view. CLINICAL INDICATION: Shortness of breath, pneumonia, congestive heart failure. TECHNIQUE: AP views of the chest were obtained. COMPARISON: Yesterday FINDINGS: The heart is large. Calcified atherosclerosis is noted in the aorta. Endotracheal and nasogastric tubes are stable and appear in grossly appropriate location. Right-sided dialysis catheter is unchanged. Left-sided central line is stable. Central pulmonary vascular congestion and interstitial prominence continues to be seen in both lungs. Bilateral perihilar and lower lung infiltrates are stable. Small right pleural effusion is unchanged. The osseous structures are unchanged. IMPRESSION: Cardiomegaly with calcified atherosclerosis in the aorta. Stable central pulmonary vascular congestion and interstitial prominence in both lungs. Stable bilateral perihilar and lower lung infiltrates and small right pleural effusion. RPTAT: AA .Curly Trujillo MD, MD Date Time Electronically viewed and signed by .Curly Trujillo MD, MD on 11/21/2016 08:02 DYAN FRANKLIN MD Nov 22, 2016 11:53
--- NOTE | 2016-11-22 12:51 | PN ---
DATE: 11/22/2016 SUBJECTIVE: No acute events overnight. The patient remains intubated and sedated. He had an episo de of 1 loose stool. VITAL SIGNS: Temperature 98.8, pulse 66, respirations 28, blood pressure 87/62, saturation 96% on 1 00 FIO2. WBC 5.2, H and H 9.7 and 31.1, platelets 114, neutrophils 90.5. MICROBIOLOGY: Blood culture on 11/19/2016 growing gram-positive cocci in clusters. INDWELLINGS: Endotracheal tube, NG tube, left IJ triple lumen catheter, right subclavian PermCath, Higgins catheter. ANTIMICROBIALS: 1. Merrem 2. Fluconazole. 3. Amikacin. 4. Vancomycin. PHYSICAL EXAMINATION: GENERAL: This is a morbidly obese, middle-aged white man who is lying comfortably in bed. HEENT: Head atraumatic, normocephalic. Sclerae anicteric. Buccal mucosa dry. NECK: Supple. CHEST: Rise symmetrical. Breath sounds diminished to bases. HEART: S1, S2. ABDOMEN: Soft, bowel tones present. EXTREMITIES: With bilateral edema. Bilateral lower extremities JEANA wrapped. ASSESSMENT: 1. Severe sepsis status post shock. 2. Healthcare-associated pneumonia. 3. Gram-positive cocci bacteremia, rule out line sepsis. 4. Oral thrush. 5. Bilateral lower extremities chronic venous stasis with a history of osteomyelitis, Podiatry foll ows. 6. Congestive heart failure. 7. End-stage renal disease. 8. Diabetes. PLAN: The patient remained unchanged on appropriate antimicrobials. He is being followed by multip le consultants. We will await final cultures and repeat blood cultures with next hemodialysis. Dictated By: JAMEY VAZQUEZ [employer] TECHNOLOGY TECHNICIAN for DONAVAN HALLMAN/GREGORY Conf#: [id number] DID#: [id number]
[2016-11-22] MEDS: MEROPENEM 500 MG/100 ML (PMX) 100 ML IVPB SCH (14:02)
--- NOTE | 2016-11-22 15:17 | CONS ---
DATE OF ADMISSION: 11/17/2016 DATE OF CONSULTATION: 11/22/2016 PALLIATIVE CARE CONFERENCE BY PHONE WITH PATIENT'S The reason the family conference call was placed on line is that she is unavailable and will be leav ing to be out of town on 11/23/2016, not available to the weekend, and the patient is critically ill in the intensive care unit. We covered his current medical problem and the fact that he presented with increasing shortness of breath, cough, admitted with hypercapnic, hypoxic respiratory failure a nd has been treated aggressively for healthcare-acquired pneumonia. He has a history of morbid obes ity and recurrent hospitalizations for respiratory failure, renal failure. He is currently on hemod ialysis. Multiple hospitalizations in the past for pneumonitis culminating in patient having a trac h during prior hospitalizations. His was very clear that during the last hospitalization and s ubsequent to that, he has made it clear that he did not want to have a trach once again. However, s he is of the opinion that there will be no other choices since he was very close to requiring a trac h last hospitalization, that may be true, may not be true at this point. The patient is only 5 days post-hospitalization now. I brought her up to date with all his current medical problems right now . I discussed code status in this gentleman but I did not press her on it, but just asked her to th ink about what her options would be in the event that he did have a cardiopulmonary catastrophe. I believe that she is giving it serious thought at this time and she has not done so in the past. I a m scheduled to speak to her once again tomorrow by phone. 11/23/2016 and possibly have a 1:1 discus eileen with her on Saturday11/24/2016. Dictated By: OSITO WHITT MD, LP/GREGORY Conf#: [id number] DID#: [id number]
[2016-11-22] MEDS: VANCOMYCIN 1.25 GM in SOD CHLORIDE 0.9% 250 ML IVPB SCH (15:43)
[2016-11-22] MEDS: ATORVASTATIN 10 MG TAB PO SCH (20:05)
[2016-11-22] MEDS: FAMOTIDINE 20 MG TAB PO SCH (20:06)
[2016-11-22] MEDS: APIXABAN 5 MG TABLET PO SCH (20:37)
[2016-11-22] MEDS: FENTAnyl (DRIP) 1000 mcg/100mL 100 ML IV SCH (20:39)
--- NOTE | 2016-11-22 23:53 | PN ---
Date/Time of Note Date/Time of Note DATE: 11/22/16 TIME: 23:53 Assessment/Plan Lines/Catheters IV Catheter Type (from [facility]): permacath Hig[place] in Place (from [facility]): Yes Exam/Review of Systems Vital Signs Vitals Vital Signs Date Time Temp Pulse Resp B/P Pulse Ox O2 Delivery O2 Flow Rate FiO2 11/22/16 21:45 67 118/74 Mechanical Ventilator 11/22/16 21:30 95 11/22/16 21:20 26 100 11/22/16 20:00 97.5 Intake and Output 11/21/16 11/21/16 11/22/16 15:00 23:00 07:00 Intake Total 1262.02 ml 642.84 ml 579.864 ml Output Total 3705 ml 52 ml 40 ml Balance -2442.98 ml 590.84 ml 539.864 ml Results Result Diagram: 11/22/16 0450 11/22/16 0450 NORMAN ACOSTA DPM Nov 22, 2016 23:53
[2016-11-23] VITALS (96 sets, daily range): BP systolic 90–144; BP diastolic 58–86; PULSE 59–89; RESP 26–30
[2016-11-23] MEDS: INSULIN ASPART [NOVOLOG] 3 ML PEN SC SCH ×5 (00:04→23:32)
[2016-11-23] MEDS: ALBUTEROL HFA 8 GM INHALER INH SCH ×6 (01:59→21:03)
[2016-11-23] MEDS: PROPOFOL 100 ML IV SCH ×5 (02:53→21:27)
[2016-11-23] MEDS: METHYLPREDNISOLONE 40 MG INJ IV SCH ×3 (05:47→21:26)
[2016-11-23 06:52] LABS: ADD SCAN DIFF NO
[2016-11-23 06:56] LABS: ABNORMAL IP MESSAGE 1; BASOPHILS % 0.1 % (0.0-2.0); HEMATOCRIT 32.8 % (42.0-52.0); HEMOGLOBIN 10.4 g/dl (14.0-18.0); LYMPHOCYTES # 0.5 10^3/ul (0.8-2.9); LYMPHOCYTES % 4.4 % (15.0-51.0); MEAN CORPUSCULAR HEMOGLOBIN 24.9 pg (29.0-33.0); MEAN CORPUSCULAR HGB CONC 31.7 g/dl (32.0-37.0); MEAN CORPUSCULAR VOLUME 78.7 fl (82.0-101.0); MONOCYTE # 0.4 10^3/ul (0.3-0.9); MONOCYTES % 3.3 % (0.0-11.0); NEUTROPHIL # 10.5 10^3/ul (1.6-7.5); NEUTROPHILS % 91.3 % (39.0-77.0); PLATELET COUNT 179 10^3/UL (140-415); RED BLOOD COUNT 4.17 10^6/ul (4.70-6.10); RED CELL DISTRIBUTION WIDTH 19.8 % (11.5-14.5); WHITE BLOOD COUNT 11.5 10^3/ul (4.8-10.8)
[2016-11-23 07:13] LABS: POTASSIUM 5.1 mmol/L (3.5-5.1)
[2016-11-23 07:15] LABS: CREATININE 3.48 mg/dl (0.61-1.24)
--- NOTE | 2016-11-23 08:27 | PN ---
DATE: 11/22/2016 CARDIOLOGY FOLLOWUP SUBJECTIVE: Discussed with the staff, dayshift and nightshift. Rhythm strip was reviewed. The pat ient remains in atrial fibrillation, remains nonverbal status post intubation on the vent. Overnigh t events noted. The patient more hypotensive and required to be placed of Levophed now. The patien t has been maintaining on Levophed drip. He still requires high oxygen, 100% oxygen. MEDICATIONS: Reviewed as per medical reconciliation, personally reviewed. PHYSICAL EXAMINATION: VITAL SIGNS: Temperature 98.5, heart rate of 70, blood pressure 90/60, respiratory rate of 27. HEENT: Normocephalic, atraumatic. Obese gentleman. Status post intubation on the vent. CARDIOVASCULAR: Irregularly irregular, systolic murmur. PULMONARY: With diffuse rhonchi throughout the lungs. GASTROINTESTINAL: Soft, nontender. EXTREMITIES: Diffuse edema. Positive ulceration on the foot. NEUROLOGIC: Sedated. PSYCHIATRIC: Appears to be calm. LABORATORY: WBC of 11.5, hemoglobin 10.4, platelets of 179. Sodium 140, potassium 5.1, BUN of 83, creatinine of 3.48, glucose of 209. ASSESSMENT AND PLAN: 1. Severe hypoxemic respiratory failure, status post intubation. 2. Bilateral pneumonia. 3. Renal failure on dialysis. 4. Atrial fibrillation, chronic. 5. History of previous respiratory failure requiring tracheostomy in the past. 6. Shock and hypotension requiring pressors now. 7. Multiple wounds and ulcers. 8. Diabetes. 9. Obesity. RECOMMENDATIONS: Antibiotic is being managed as per ID's recommendation. The patient is on broad-s pectrum antibiotics. Blood culture is growing gram-positive cocci. Anticoagulation will be continu ed with Eliquis. Palliative care also has been consulted as well. For now, we will continue the ve nt support. Prognosis guarded. We will continue with the ICU care. More than 36 minutes critical care time was spent managing this patient excluding procedures. Dictated By: GARDENIA NELSON MD AV/GREGORY Conf#: [id number] DID#: [id number] CC: GERI LINDO MD;*EndCC*
[2016-11-23] MEDS: ZINC SULFATE 220 MG CAP PO SCH (08:28)
[2016-11-23] MEDS: FERROUS SULFATE 60 MG/ML 5ML CUP GTB SCH ×2 (08:28→20:44)
[2016-11-23] MEDS: VITAMIN E 400 UNITS CAP PO SCH (08:28)
[2016-11-23] MEDS: FISH OIL 1,000 MG CAP PO SCH (08:28)
[2016-11-23] MEDS: SEVELAMER CARBONATE 0.8 GM PKT PO SCH ×3 (08:28→16:56)
[2016-11-23] MEDS: FLUOXETINE 20 MG CAP PO SCH (08:28)
[2016-11-23] MEDS: DOCUSATE SODIUM 10 MG/ML (10ML CUP) GTB SCH ×2 (08:28→20:20)
[2016-11-23] MEDS: LACTOBACILLUS CHEW TAB PO SCH ×3 (08:29→20:44)
[2016-11-23] MEDS: NYSTATIN/TRIAMCINOLONE 15 GM OINT TOP SCH ×2 (08:29→20:45)
[2016-11-23] MEDS: CHOLECALCIFEROL 1,000 UNIT TAB PO SCH (08:29)
[2016-11-23] MEDS: ALLOPURINOL 100 MG TAB PO SCH (08:29)
[2016-11-23] MEDS: ASPIRIN (EC) 81 MG TAB PO SCH (08:29)
[2016-11-23] MEDS: MULTIVITAMINS THERAPEUTIC TAB PO SCH (08:29)
[2016-11-23] MEDS: PYRIDOXINE 50 MG TAB PO SCH (08:29)
[2016-11-23] MEDS: FLUCONAZOLE 100 MG TAB NGT SCH (08:32)
[2016-11-23] MEDS: METOPROLOL 25 MG TAB PO SCH ×2 (08:36→20:44)
[2016-11-23] MEDS: POTASSIUM CHLORIDE (SR) 20 MEQ TAB PO SCH (08:36)
[2016-11-23] MEDS: APIXABAN 5 MG TABLET PO SCH ×2 (08:37→20:44)
[2016-11-23] MEDS: PREGABALIN 25 MG CAP PO SCH ×3 (08:49→20:45)
[2016-11-23] MEDS: IPRATROPIUM (HFA) 12.9 GM INHALER INH PRN (08:52)
--- NOTE | 2016-11-23 10:09 | PN ---
DATE: 11/23/2016 SUBJECTIVE: Mr. Fabian remains intubated on mechanical ventilation, continues high FIO2 at 90%, down from 100%. HEENT: Mucous membranes moist. Pupils equal and reactive to light. CARDIAC: S1, S2, no added sounds or murmurs. CHEST: Diminished air entry bilaterally. ABDOMEN: Soft, nontender. No guarding or rebound. EXTREMITIES: No cyanosis, clubbing, edema. NEUROLOGIC: Generalized weakness. LABORATORY DATA: White count 11, hemoglobin 10.4, platelets of 179. BUN 83, creatinine 3.48, PTT 7 9. IMAGING: Chest x-ray shows persistent bilateral infiltrates. IMPRESSION AND PLAN: 1. Hypoxemic respiratory failure. 2. Community-acquired pneumonia. 3. Pulmonary edema. 4. End-stage renal failure. 5. History of tracheostomy. The patient will require: 1. Continued mechanical ventilation. 2. Continue steroids. 3. Continue antibiotics. 4. Continue hemodialysis with volume removal if tolerated. 5. Continue DVT and GI prophylaxis. I appreciate palliative care recommendations regarding goals of care with family. Dictated By: EDNA COLINDRES/GREGORY Conf#: [id number] DID#: [id number]
--- NOTE | 2016-11-23 10:28 | CONS ---
Date/Time of Note Date/Time of Note DATE: 11/23/16 TIME: 10:25 Assessment/Plan Assessment/Plan Additional Assessment/Plan 61 yo Male with 1) Respiratory failure 2nd to PNA and CHF 2) Volume Overload 3) ESRD on HD MWF 4) Anemia, Chronic, CKD 5) Mineral Bone Disease, CKD 6) Respiratory Acidosis, CO2 Retention with AG Acidosis 7) Type 2 DM 8) Hypotension HD ordered for today, UF as tolerated Pressors as needed to maintain MAP>65mmHg or SBP >90 Cont current treatment and plan . Will cont to closely follow along with you Consultation Date/Type/Reason Admit Date/Time Nov 17, 2016 at 12:10 Initial Consult Date 11/17/16 Type of Consultation: renal Referring Provider: FELIX SCOTT 24 HR Interval Summary Free Text/Dictation Remains intubated, HD held yesterday, Pt now on IV pressors, Low dose. Subjective hx not possible: pt critical status Exam/Review of Systems Vital Signs Vitals Vital Signs Date Time Temp Pulse Resp B/P Pulse Ox O2 Delivery O2 Flow Rate FiO2 11/23/16 09:45 62 102/70 96 11/23/16 09:00 Mechanical Ventilator 11/23/16 08:00 97.6 11/23/16 05:30 27 100 Intake and Output 11/22/16 11/22/16 11/23/16 15:00 23:00 07:00 Intake Total 547.960 ml 533.33 ml 477.68 ml Output Total 50 ml 40 ml 30 ml Balance 497.960 ml 493.33 ml 447.68 ml Exam Constitutional: No distress ENMT: intubated, mucosa pink and moist Respiratory: crackles/rales, diminished breath sounds Cardiovascular: edema, regular rate and rhythm Gastrointestinal: non-tender, soft Genitourinary - Male: other (bennett) Extremities: pitting pedal edema 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: other (sedated) Skin: No diaphoresis Results Result Diagram: 11/23/16 0500 11/23/16 0500 Results 24 hrs Laboratory Tests Test 11/22/16 12:20 11/22/16 12:55 11/22/16 17:15 11/23/16 00:01 Bedside Glucose 216 198 240 H Activated Partial Thromboplast Time 79.1 *H Test 11/23/16 05:00 11/23/16 05:44 Anion Gap 19 H Basophils # 0.0 Basophils % 0.1 Blood Urea Nitrogen 83 H Calcium Level 8.0 L Carbon Dioxide Level 26 Chloride Level 100 Creatinine 3.48 H Eosinophils # 0.0 Eosinophils % 0.0 Glucose Level 209 Hematocrit 32.8 L Hemoglobin 10.4 L Lymphocytes # 0.5 L Lymphocytes % 4.4 L Mean Corpuscular Hemoglobin 24.9 L Mean Corpuscular Hemoglobin Concent 31.7 L Mean Corpuscular Volume 78.7 L Mean Platelet Volume 11.0 H Monocytes # 0.4 Monocytes % 3.3 Neutrophils # 10.5 H Neutrophils % 91.3 H Nucleated Red Blood Cells # 0.0 Nucleated Red Blood Cells % 0.0 Platelet Count 179 # Potassium Level 5.1 Red Blood Count 4.17 L Red Cell Distribution Width 19.8 H Sodium Level 140 White Blood Count 11.5 #H Bedside Glucose 199 Medications Medications Current Medications Ondansetron HCl (Zofran Inj) 4 mg Q6H PRN IV NAUSEA AND/OR VOMITING; Start 11/17 at 11:00 Acetaminophen/ Hydrocodone Bitart ([place] (5/325)) 1 tab Q6H PRN PO MODERATE PAIN LEVEL 4-6; Start 11/17/16 at 11:00 Morphine Sulfate (morphine) 2 mg Q4H PRN IV SEVERE PAIN LEVEL 7-10; Start at 11:00 Magnesium Hydroxide (Milk Of Mag) 30 ml DAILY PRN PO CONSTIPATION; Start at 11:00 Sodium Biphosphate/ Sodium Phosphate (Fleet Enema) 133 ml DAILY PRN OR CONSTIPATION; Start 11/17/16 at 11:00 Lorazepam (Ativan) 0.5 mg Q6H PRN IV ANXIETY Last administered on 11/18/16t 07: 27; Admin Dose 0.5 MG; Start 11/17/16 at 11:00 Hydralazine HCl (Apresoline) 10 mg Q6H PRN IV ELEVATED BLOOD PRESSURE; Start at 11:00 Nitroglycerin (Nitroglycerin (Sl Tab) 0.4 Mg) 1 tab Q5M PRN SL ANGINA; Start at 11:00 Acetaminophen (Tylenol Tab) 650 mg Q6H PRN PO PAIN LEVEL 1-5; Start 11/17/16 at 11:00 Allopurinol (Zyloprim) 100 mg DAILY PO Last administered on 11/23/16 08:29; Admin Dose 100 MG; Start 11/18/16 at 09:00 Aspirin (Halfprin) 81 mg DAILY PO Last administered on 11/23/16 08:29; Admin Dose 81 MG; Start 11/18/16 at 09:00 Atorvastatin Calcium (Lipitor) 10 mg QHS PO Last administered on 11/22/16 20:05 ; Admin Dose 10 MG; Start 11/17/16 at 21:00 Famotidine (Pepcid) 20 mg Q24H PO Last administered on 11/22/16 20:06; Admin Dose 20 MG; Start 11/17/16 at 21:00 Lactobacillus Acidoph/Bulgaricus (Floranex) 1 tab TID PO Last administered on 08:29; Admin Dose 1 TAB; Start 11/17/16 at 13:00 Lorazepam (Ativan) 0.5 mg Q6 PRN PO ANXIETY Last administered on 11/18/16 11:04 ; Admin Dose 0.5 MG; Start 11/17/16 at 11:00 Metoprolol Tartrate (Lopressor) 12.5 mg BID PO Last administered on 11/19/16 20 :43; Admin Dose 12.5 MG; Start 11/17/16 at 21:00 Fish Oil (Fish Oil) 1,000 mg DAILY PO Last administered on 11/23/16 08:28; Admin Dose 1,000 MG; Start 11/18/16 at 09:00 Potassium Chloride (Klor-Con 20) 40 meq DAILY PO Last administered on 08:36; Admin Dose 40 MEQ; Start 11/18/16 at 09:00 Pregabalin (Lyrica) 50 mg TID PO Last administered on 11/23/16 08:49; Admin Dose 50 MG; Start 11/17/16 at 13:00 Pyridoxine HCl (Vitamin B6) 100 mg DAILY PO Last administered on 11/23/16 08: 29; Admin Dose 100 MG; Start 11/18/16 at 09:00 Simethicone (Mylicon) 80 mg Q6H PRN PO INTESTINAL SPASMS/CRAMPING; Start at 11:00 Vitamin E (Vitamin E) 400 units DAILY PO Last administered on 11/23/16 08:28; Admin Dose 400 UNITS; Start 11/18/16 at 09:00 Zolpidem Tartrate (Ambien) 10 mg QHS PRN PO INSOMNIA; Start 11/17/16 at 11:00 Fluoxetine HCl (Prozac) 20 mg DAILY PO Last administered on 11/23/16 08:28; Admin Dose 20 MG; Start 11/18/16 at 09:00 Al Hydrox/Mg Hydrox/Simethicone (Mag-Al Plus) 10 ml Q6 PRN PO DISTENSION/GAS/ BLOATING; Start 11/17/16 at 11:00 Vancomycin HCl (Vanco Iv Per Pharmacy) PER PHARMACY DOSING NOTE XX ; Start at 11:30 Miscellaneous Information 1 ea NOTE XX ; Start 11/17/16 at 11:30 Glucose (Glutose) 15 gm Q15M PRN PO DECREASED GLUCOSE; Start 11/17/16 at 11:30 Glucose (Glutose) 22.5 gm Q15M PRN PO DECREASED GLUCOSE; Start 11/17/16 at 11:30 Dextrose (D50w Syringe) 25 ml Q15M PRN IV DECREASED GLUCOSE Last administered on 11/20/16 02:28; Admin Dose 25 ML; Start 11/17/16 at 11:30 Dextrose (D50w Syringe) 50 ml Q15M PRN IV DECREASED GLUCOSE; Start 11/17/16 at 11:30 Glucagon (Glucagen) 1 mg Q15M PRN IM DECREASED GLUCOSE Last administered on 11/19 21:43; Admin Dose 1 MG; Start 11/17/16 at 11:30 Glucose (Glutose) 15 gm Q15M PRN BUCCAL DECREASED GLUCOSE; Start 11/17/16 at 11: 30 Guaifenesin (Robitussin Liquid Cup) 200 mg Q4H PRN PO COUGH; Start 11/17/16 at 16:00 Phenol (Cepastat Lozenge) 1 lozenge Q1H PRN MT cough; Start 11/17/16 at 16:00 Bisacodyl (Dulcolax Supp) 10 mg Q24H PRN OR CONSTIPATION; Start 11/17/16 at 16: 30 Cholecalciferol (Vitamin D) 1,000 unit DAILY PO Last administered on 11/23/16 08:29; Admin Dose 1,000 UNIT; Start 11/18/16 at 09:00 Diphenhydramine HCl (Benadryl) 25 mg BID PRN PO ITCHING; Start 11/17/16 at 16:30 Multivitamins Therapeutic (Theragran) 1 tab DAILY PO Last administered on 08:29; Admin Dose 1 TAB; Start 11/18/16 at 09:00 Zinc Sulfate 220 mg 220 mg DAILY PO Last administered on 11/23/16 08:28; Admin Dose 220 MG; Start 11/18/16 at 09:00 Propofol 100 ml @ 3.96 mls/hr Q12H IV Last administered on 11/23/16 06:53; Admin Dose 15.84 MLS/HR; Start 11/18/16 at 12:30 Fentanyl (Sublimaze) 100 ml @ 2.5 mls/hr TITRATE IV Last administered on 20:39; Admin Dose 2.5 MLS/HR; Start 11/18/16 at 12:30 Ferrous Sulfate (Feosol Liquid Cup) 300 mg BID GTB Last administered on 08:28; Admin Dose 300 MG; Start 11/18/16 at 21:00 Acetaminophen (Tylenol Liquid) 650 mg Q6 PRN NGT PAIN AND OR ELEVATED TEMP Last administered on 11/19/16 18:41; Admin Dose 650 MG; Start 11/19/16 at 03:30 Amikacin Sulfate (Amikacin Iv Per Pharmacy) AMIKACIN PER PHARMACY NOTE XX ; Start 11/20/16 at 11:30 Insulin Aspart (Novolog Insulin Pen) NOVOLOG *MILD* ALGORI... Q6 SC Last administered on 11/23/16 05:48; Admin Dose 2 UNIT; Start 11/20/16 at 18:00 Nystatin/ Triamcinolone Acetonide (Mycolog Oint) 1 applic BID TOP Last administered on 11/23/16 08:29; Admin Dose 1 APPLIC; Start 11/20/16 at 21:00 Docusate Sodium 200 mg 200 mg BID GTB Last administered on 11/23/16 08:28; Admin Dose 200 MG; Start 11/21/16 at 21:00 Meropenem (Merrem 500 Mg/ 100 ml (Pmx)) 100 ml @ 200 mls/hr Q24H IVPB Last administered on 11/22/16 14:02; Admin Dose 200 MLS/HR; Start 11/21/16 at 14:00 Fluconazole (Diflucan) 100 mg DAILY NGT Last administered on 11/23/16 08:32; Admin Dose 100 MG; Start 11/21/16 at 12:30 Methylprednisolone Sodium Succinate 40 mg 40 mg Q8 IV Last administered on 11/23 05:47; Admin Dose 40 MG; Start 11/21/16 at 16:00 Norepinephrine/ Dextrose (Levophed/D5W) 500 ml @ 0 mls/hr TITRATE IV Last administered on 11/22/16 20:38; Admin Dose 9.37 MLS/HR; Start 11/22/16 at 07:00 Apixaban 5 mg 5 mg BID PO Last administered on 11/23/16 08:37; Admin Dose 5 MG ; Start 11/22/16 at 21:00 Vancomycin HCl/ Sodium Chloride (Vancocin/NS) 250 ml @ 83.333 mls/ hr Q96H IVPB Last administered on 11/22/16 15:43; Admin Dose 83.333 MLS/HR; Start at 15:00 DYAN FRANKLIN MD Nov 23, 2016 10:28
--- NOTE | 2016-11-23 10:59 | PN ---
Date/Time of Note Date/Time of Note DATE: 11/23/16 TIME: 10:58 Assessment/Plan Lines/Catheters IV Catheter Type (from Nrsg): PERMA CATH Urinary Cath still in place: Yes Subjective 24 Hr Interval Summary Free Text/Dictation Patient seen and examined. sedated with fentanyl and propofol Still requiring 100% FIo2 Remains on low dose levo Exam/Review of Systems Vital Signs Vitals Vital Signs Date Time Temp Pulse Resp B/P Pulse Ox O2 Delivery O2 Flow Rate FiO2 11/23/16 09:45 62 102/70 96 11/23/16 09:00 Mechanical Ventilator 11/23/16 08:00 97.6 11/23/16 05:30 27 100 Intake and Output 11/22/16 11/22/16 11/23/16 15:00 23:00 07:00 Intake Total 547.960 ml 533.33 ml 477.68 ml Output Total 50 ml 40 ml 30 ml Balance 497.960 ml 493.33 ml 447.68 ml Results Result Diagram: 11/23/16 0500 11/23/16 0500 Results 24 hrs Laboratory Tests Test 11/22/16 12:20 11/22/16 12:55 11/22/16 17:15 11/23/16 00:01 Bedside Glucose 216 198 240 H Activated Partial Thromboplast Time 79.1 *H Test 11/23/16 05:00 11/23/16 05:44 Anion Gap 19 H Basophils # 0.0 Basophils % 0.1 Blood Urea Nitrogen 83 H Calcium Level 8.0 L Carbon Dioxide Level 26 Chloride Level 100 Creatinine 3.48 H Eosinophils # 0.0 Eosinophils % 0.0 Glucose Level 209 Hematocrit 32.8 L Hemoglobin 10.4 L Lymphocytes # 0.5 L Lymphocytes % 4.4 L Mean Corpuscular Hemoglobin 24.9 L Mean Corpuscular Hemoglobin Concent 31.7 L Mean Corpuscular Volume 78.7 L Mean Platelet Volume 11.0 H Monocytes # 0.4 Monocytes % 3.3 Neutrophils # 10.5 H Neutrophils % 91.3 H Nucleated Red Blood Cells # 0.0 Nucleated Red Blood Cells % 0.0 Platelet Count 179 # Potassium Level 5.1 Red Blood Count 4.17 L Red Cell Distribution Width 19.8 H Sodium Level 140 White Blood Count 11.5 #H Bedside Glucose 199 Medications Medications Current Medications Ondansetron HCl (Zofran Inj) 4 mg Q6H PRN IV NAUSEA AND/OR VOMITING; Start 11/17 at 11:00 Acetaminophen/ Hydrocodone Bitart ([place] (5/325)) 1 tab Q6H PRN PO MODERATE PAIN LEVEL 4-6; Start 11/17/16 at 11:00 Morphine Sulfate (morphine) 2 mg Q4H PRN IV SEVERE PAIN LEVEL 7-10; Start at 11:00 Magnesium Hydroxide (Milk Of Mag) 30 ml DAILY PRN PO CONSTIPATION; Start at 11:00 Sodium Biphosphate/ Sodium Phosphate (Fleet Enema) 133 ml DAILY PRN ND CONSTIPATION; Start 11/17/16 at 11:00 Lorazepam (Ativan) 0.5 mg Q6H PRN IV ANXIETY Last administered on 11/18/16 07: 27; Admin Dose 0.5 MG; Start 11/17/16 at 11:00 Hydralazine HCl (Apresoline) 10 mg Q6H PRN IV ELEVATED BLOOD PRESSURE; Start at 11:00 Nitroglycerin (Nitroglycerin (Sl Tab) 0.4 Mg) 1 tab Q5M PRN SL ANGINA; Start at 11:00 Acetaminophen (Tylenol Tab) 650 mg Q6H PRN PO PAIN LEVEL 1-5; Start 11/17/16 at 11:00 Allopurinol (Zyloprim) 100 mg DAILY PO Last administered on 11/23/16 08:29; Admin Dose 100 MG; Start 11/18/16 at 09:00 Aspirin (Halfprin) 81 mg DAILY PO Last administered on 11/23/16 08:29; Admin Dose 81 MG; Start 11/18/16 at 09:00 Atorvastatin Calcium (Lipitor) 10 mg QHS PO Last administered on 11/22/16 20:05 ; Admin Dose 10 MG; Start 11/17/16 at 21:00 Famotidine (Pepcid) 20 mg Q24H PO Last administered on 11/22/16 20:06; Admin Dose 20 MG; Start 11/17/16 at 21:00 Lactobacillus Acidoph/Bulgaricus (Floranex) 1 tab TID PO Last administered on 08:29; Admin Dose 1 TAB; Start 11/17/16 at 13:00 Lorazepam (Ativan) 0.5 mg Q6 PRN PO ANXIETY Last administered on 11/18/16 11:04 ; Admin Dose 0.5 MG; Start 11/17/16 at 11:00 Metoprolol Tartrate (Lopressor) 12.5 mg BID PO Last administered on 11/19/16 20 :43; Admin Dose 12.5 MG; Start 11/17/16 at 21:00 Fish Oil (Fish Oil) 1,000 mg DAILY PO Last administered on 11/23/16 08:28; Admin Dose 1,000 MG; Start 11/18/16 at 09:00 Potassium Chloride (Klor-Con 20) 40 meq DAILY PO Last administered on 08:36; Admin Dose 40 MEQ; Start 11/18/16 at 09:00 Pregabalin (Lyrica) 50 mg TID PO Last administered on 11/23/16 08:49; Admin Dose 50 MG; Start 11/17/16 at 13:00 Pyridoxine HCl (Vitamin B6) 100 mg DAILY PO Last administered on 11/23/16 08: 29; Admin Dose 100 MG; Start 11/18/16 at 09:00 Simethicone (Mylicon) 80 mg Q6H PRN PO INTESTINAL SPASMS/CRAMPING; Start at 11:00 Vitamin E (Vitamin E) 400 units DAILY PO Last administered on 11/23/16 08:28; Admin Dose 400 UNITS; Start 11/18/16 at 09:00 Zolpidem Tartrate (Ambien) 10 mg QHS PRN PO INSOMNIA; Start 11/17/16 at 11:00 Fluoxetine HCl (Prozac) 20 mg DAILY PO Last administered on 11/23/16 08:28; Admin Dose 20 MG; Start 11/18/16 at 09:00 Al Hydrox/Mg Hydrox/Simethicone (Mag-Al Plus) 10 ml Q6 PRN PO DISTENSION/GAS/ BLOATING; Start 11/17/16 at 11:00 Vancomycin HCl (Vanco Iv Per Pharmacy) PER PHARMACY DOSING NOTE XX ; Start at 11:30 Miscellaneous Information 1 ea NOTE XX ; Start 11/17/16 at 11:30 Glucose (Glutose) 15 gm Q15M PRN PO DECREASED GLUCOSE; Start 11/17/16 at 11:30 Glucose (Glutose) 22.5 gm Q15M PRN PO DECREASED GLUCOSE; Start 11/17/16 at 11:30 Dextrose (D50w Syringe) 25 ml Q15M PRN IV DECREASED GLUCOSE Last administered on 11/20/16 02:28; Admin Dose 25 ML; Start 11/17/16 at 11:30 Dextrose (D50w Syringe) 50 ml Q15M PRN IV DECREASED GLUCOSE; Start 11/17/16 at 11:30 Glucagon (Glucagen) 1 mg Q15M PRN IM DECREASED GLUCOSE Last administered on 11/19 21:43; Admin Dose 1 MG; Start 11/17/16 at 11:30 Glucose (Glutose) 15 gm Q15M PRN BUCCAL DECREASED GLUCOSE; Start 11/17/16 at 11: 30 Guaifenesin (Robitussin Liquid Cup) 200 mg Q4H PRN PO COUGH; Start 11/17/16 at 16:00 Phenol (Cepastat Lozenge) 1 lozenge Q1H PRN MT cough; Start 11/17/16 at 16:00 Bisacodyl (Dulcolax Supp) 10 mg Q24H PRN ND CONSTIPATION; Start 11/17/16 at 16: 30 Cholecalciferol (Vitamin D) 1,000 unit DAILY PO Last administered on 11/23/16 08:29; Admin Dose 1,000 UNIT; Start 11/18/16 at 09:00 Diphenhydramine HCl (Benadryl) 25 mg BID PRN PO ITCHING; Start 11/17/16 at 16:30 Multivitamins Therapeutic (Theragran) 1 tab DAILY PO Last administered on 08:29; Admin Dose 1 TAB; Start 11/18/16 at 09:00 Zinc Sulfate 220 mg 220 mg DAILY PO Last administered on 11/23/16 08:28; Admin Dose 220 MG; Start 11/18/16 at 09:00 Propofol 100 ml @ 3.96 mls/hr Q12H IV Last administered on 11/23/16 06:53; Admin Dose 15.84 MLS/HR; Start 11/18/16 at 12:30 Fentanyl (Sublimaze) 100 ml @ 2.5 mls/hr TITRATE IV Last administered on 20:39; Admin Dose 2.5 MLS/HR; Start 11/18/16 at 12:30 Ferrous Sulfate (Feosol Liquid Cup) 300 mg BID GTB Last administered on 08:28; Admin Dose 300 MG; Start 11/18/16 at 21:00 Acetaminophen (Tylenol Liquid) 650 mg Q6 PRN NGT PAIN AND OR ELEVATED TEMP Last administered on 11/19/16 18:41; Admin Dose 650 MG; Start 11/19/16 at 03:30 Amikacin Sulfate (Amikacin Iv Per Pharmacy) AMIKACIN PER PHARMACY NOTE XX ; Start 11/20/16 at 11:30 Insulin Aspart (Novolog Insulin Pen) NOVOLOG *MILD* ALGORI... Q6 SC Last administered on 11/23/16 05:48; Admin Dose 2 UNIT; Start 11/20/16 at 18:00 Nystatin/ Triamcinolone Acetonide (Mycolog Oint) 1 applic BID TOP Last administered on 11/23/16 08:29; Admin Dose 1 APPLIC; Start 11/20/16 at 21:00 Docusate Sodium 200 mg 200 mg BID GTB Last administered on 11/23/16 08:28; Admin Dose 200 MG; Start 11/21/16 at 21:00 Meropenem (Merrem 500 Mg/ 100 ml (Pmx)) 100 ml @ 200 mls/hr Q24H IVPB Last administered on 11/22/16 14:02; Admin Dose 200 MLS/HR; Start 11/21/16 at 14:00 Fluconazole (Diflucan) 100 mg DAILY NGT Last administered on 11/23/16 08:32; Admin Dose 100 MG; Start 11/21/16 at 12:30 Methylprednisolone Sodium Succinate 40 mg 40 mg Q8 IV Last administered on 11/23 05:47; Admin Dose 40 MG; Start 11/21/16 at 16:00 Norepinephrine/ Dextrose (Levophed/D5W) 500 ml @ 0 mls/hr TITRATE IV Last administered on 11/22/16 20:38; Admin Dose 9.37 MLS/HR; Start 11/22/16 at 07:00 Apixaban 5 mg 5 mg BID PO Last administered on 11/23/16 08:37; Admin Dose 5 MG ; Start 11/22/16 at 21:00 Vancomycin HCl/ Sodium Chloride (Vancocin/NS) 250 ml @ 83.333 mls/ hr Q96H IVPB Last administered on 11/22/16t 15:43; Admin Dose 83.333 MLS/HR; Start at 15:00 GERI LINDO Nov 23, 2016 10:59
--- NOTE | 2016-11-23 11:02 | PN ---
DATE: 11/23/2016 SUBJECTIVE: No acute events. The patient is on Levophed at low dose, intubated and sedated, in no distress. He had been having loose stools. VITAL SIGNS: Temperature 97.6, pulse 62, respirations 20, blood pressure 111/74, saturation 95 on v ent. WBC 11.5, H and H 10.4 and 32.8, platelets 179, neutrophils 91.3. MICROBIOLOGY: Blood culture growing coagulase-negative staph species. Sputum culture grew Michelle albicans. Repeat blood cultures pending. ANTIMICROBIALS: The patient is on: 1. IV vancomycin 2. Amikacin 3. Fluconazole. 4. Meropenem. INDWELLINGS: Endotracheal tube, NG tube, left IJ triple lumen catheter, right subclavian PermCath. PHYSICAL EXAMINATION: GENERAL: Morbidly obese, middle-aged man who is lying comfortably in bed. HEENT: Head atraumatic, normocephalic. Sclerae anicteric. Buccal mucosa dry. NECK: Supple. CHEST: Rise symmetrical. Breath sounds diminished to bases. HEART: S1, S2. ABDOMEN: Obese, soft. Bowel tones hypoactive. EXTREMITIES: With bilateral edema. Lower extremities Patrick wrapped bilaterally. ASSESSMENT: 1. Severe sepsis with shock. 2. Acute respiratory failure. 3. Healthcare-associated pneumonia. 4. Congestive heart failure exacerbation. 5. Coagulase-negative staph bacteremia, rule out line sepsis. 6. Oral thrush. 7. Diabetes. 8. End-stage renal disease. 9. Bilateral lower extremities chronic venous stasis with a history of osteomyelitis. 10. Diarrhea, rule out Clostridium difficile. PLAN: The patient remains hemodynamically unstable on low dose pressors. He is on appropriate anti microbials. He is being seen by multiple consultants. We will order stool for Clostridium difficil e today. We will order repeat blood cultures with hemodialysis today from [facility]. Continue on cu rrent antibiotics. Dictated By: JAMEY VAZQUEZ SERVICE DISMANTLER for DONAVAN HALLMAN/GREGORY Conf#: [id number] DID#: [id number]
--- NOTE | 2016-11-23 13:24 | RADRPT ---
PROCEDURE: Chest Radiograph. CLINICAL INDICATION: Respiratory failure. TECHNIQUE: Single frontal chest radiograph. COMPARISON: Chest radiograph 11/21/2016 FINDINGS: An endotracheal tube, nasogastric tube, left jugular venous catheter, right chest wall tunneled hemo dialysis catheter remain in place. The heart is enlarged. There is patchy bilateral air space disea se, improved compared to prior study. There is a small right pleural effusion. The bones are int act.. IMPRESSION: 1. Improving bilateral air space disease. 2. Otherwise stable radiographic appearance of the chest compared to 11/21/2016. RPTAT: AA .Albaro Camarillo MD, MD Date Time Electronically viewed and signed by .Albaro Camarillo MD, on 11/23/2016 13:24 .B/
--- NOTE | 2016-11-23 14:50 | PN ---
Date/Time of Note Date/Time of Note DATE: 11/23/16 TIME: 14:48 Assessment/Plan VTE Prophylaxis VTE Prophylaxis Intervention: heparin Lines/Catheters IV Catheter Type (from [facility]): PERMA CATH Urinary Cath still in place: Yes Reason Cath still needed: other (indicate) Assessment/Plan Assessment/Plan A 61-year-old male with a history of type 2 diabetes, peripheral vascular disease, prior respiratory insufficiency, end-stage renal disease, on dialysis, who presents with a cough for 1 week and SOB managed as follows: 1. Recurrent Hypoxemic / Hypercapnic resp failure / Vent dependent / 2/2 severe PNA 2. CHF exacerbation diastolic 3. Moderate tricuspid regurgitation 4. Pulmonary hypertension 5. ESRD on HD 6. Morbid obesity / cannot r/o OHS 7. COPD 8. HTN > hyypotensive 9. Paroxysmal Afib 10. DM2 11. Chronic depression 12. Blake LE cellulitis with Chronic foot ulcer and hx of osteomyelitis 13. Hx of PVD / Gout 14. Pancytopenia with microcytosis: mild iron deficiency noted 15. Extensive Multifocal Pneumonia Michelle / cannot r/o bacterial component 16. History of multiple previous respiratory failure and tracheostomy in the past. 17. Pulmonary lymphadenopathy: reactive versus neoplastic PLAN: * Continue Vent support and mgt/ patient still requiring 100% o2 / will likely require trach a 2nd time * Continue daily dialysis as tolerated * PRN pressor support * Wean fentanyl, continue propofol and use PRNs * Continue aggressive abx regimen / heparin drip * Continue scheduled bronchodilator therapy * Continue SSI / Continue tube feeds * Continue iron replacement therapy * continue Icu supportive care * Defer to pulm for mgt of lymphadenopathy / possibly repeat CT once pneumonia is improved. PROPHYLAXIS: Heparin / PPI CRITICAL CARE TIME: >35 mins Exam/Review of Systems Vital Signs Vitals Vital Signs Date Time Temp Pulse Resp B/P Pulse Ox O2 Delivery O2 Flow Rate FiO2 11/23/16 12:00 70 11/23/16 09:45 102/70 96 11/23/16 09:00 Mechanical Ventilator 11/23/16 08:00 97.6 11/23/16 05:30 27 100 Intake and Output 11/22/16 11/22/16 11/23/16 15:00 23:00 07:00 Intake Total 547.960 ml 533.33 ml 477.68 ml Output Total 50 ml 40 ml 30 ml Balance 497.960 ml 493.33 ml 447.68 ml Exam Constitutional: obese, oriented, No alert Psych: other (unable to assess) Head: normocephalic Eyes: PERRL ENMT: intubated Respiratory: diminished breath sounds, No wheezing Cardiovascular: regular rate and rhythm, No murmurs/extra sounds Gastrointestinal: bowel sounds, other (protuberant), soft Musculoskeletal: No nl extremities to inspection Extremities: edema 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: lethargic Skin: other (erythematous skin in both lower extremities with diffuse non pitting edema up to knees bilaterally and chronic keratotic skin changes and toe ulcer) Results Result Diagram: 11/23/16 0500 11/23/16 0500 Results 24 hrs Laboratory Tests Test 11/22/16 17:15 11/23/16 00:01 11/23/16 05:00 11/23/16 05:44 Bedside Glucose 198 240 H 199 Anion Gap 19 H Basophils # 0.0 Basophils % 0.1 Blood Urea Nitrogen 83 H Calcium Level 8.0 L Carbon Dioxide Level 26 Chloride Level 100 Creatinine 3.48 H Eosinophils # 0.0 Eosinophils % 0.0 Glucose Level 209 Hematocrit 32.8 L Hemoglobin 10.4 L Lymphocytes # 0.5 L Lymphocytes % 4.4 L Mean Corpuscular Hemoglobin 24.9 L Mean Corpuscular Hemoglobin Concent 31.7 L Mean Corpuscular Volume 78.7 L Mean Platelet Volume 11.0 H Monocytes # 0.4 Monocytes % 3.3 Neutrophils # 10.5 H Neutrophils % 91.3 H Nucleated Red Blood Cells # 0.0 Nucleated Red Blood Cells % 0.0 Platelet Count 179 # Potassium Level 5.1 Red Blood Count 4.17 L Red Cell Distribution Width 19.8 H Sodium Level 140 White Blood Count 11.5 #H Test 11/23/16 10:59 Bedside Glucose 240 H Medications Medications Current Medications Ondansetron HCl (Zofran Inj) 4 mg Q6H PRN IV NAUSEA AND/OR VOMITING; Start 11/17 at 11:00 Acetaminophen/ Hydrocodone Bitart ([place] (5/325)) 1 tab Q6H PRN PO MODERATE PAIN LEVEL 4-6; Start 11/17/16 at 11:00 Morphine Sulfate (morphine) 2 mg Q4H PRN IV SEVERE PAIN LEVEL 7-10; Start at 11:00 Magnesium Hydroxide (Milk Of Mag) 30 ml DAILY PRN PO CONSTIPATION; Start at 11:00 Sodium Biphosphate/ Sodium Phosphate (Fleet Enema) 133 ml DAILY PRN ND CONSTIPATION; Start 11/17/16 at 11:00 Lorazepam (Ativan) 0.5 mg Q6H PRN IV ANXIETY Last administered on 11/18/16 07: 27; Admin Dose 0.5 MG; Start 11/17/16 at 11:00 Hydralazine HCl (Apresoline) 10 mg Q6H PRN IV ELEVATED BLOOD PRESSURE; Start at 11:00 Nitroglycerin (Nitroglycerin (Sl Tab) 0.4 Mg) 1 tab Q5M PRN SL ANGINA; Start at 11:00 Acetaminophen (Tylenol Tab) 650 mg Q6H PRN PO PAIN LEVEL 1-5; Start 11/17/16 at 11:00 Allopurinol (Zyloprim) 100 mg DAILY PO Last administered on 11/23/16 08:29; Admin Dose 100 MG; Start 11/18/16 at 09:00 Aspirin (Halfprin) 81 mg DAILY PO Last administered on 11/23/16 08:29; Admin Dose 81 MG; Start 11/18/16 at 09:00 Atorvastatin Calcium (Lipitor) 10 mg QHS PO Last administered on 11/22/16 20:05 ; Admin Dose 10 MG; Start 11/17/16 at 21:00 Famotidine (Pepcid) 20 mg Q24H PO Last administered on 11/22/16 20:06; Admin Dose 20 MG; Start 11/17/16 at 21:00 Lactobacillus Acidoph/Bulgaricus (Floranex) 1 tab TID PO Last administered on 08:29; Admin Dose 1 TAB; Start 11/17/16 at 13:00 Lorazepam (Ativan) 0.5 mg Q6 PRN PO ANXIETY Last administered on 11/18/16 11:04 ; Admin Dose 0.5 MG; Start 11/17/16 at 11:00 Metoprolol Tartrate (Lopressor) 12.5 mg BID PO Last administered on 11/19/16 20 :43; Admin Dose 12.5 MG; Start 11/17/16 at 21:00 Fish Oil (Fish Oil) 1,000 mg DAILY PO Last administered on 11/23/16 08:28; Admin Dose 1,000 MG; Start 11/18/16 at 09:00 Potassium Chloride (Klor-Con 20) 40 meq DAILY PO Last administered on 08:36; Admin Dose 40 MEQ; Start 11/18/16 at 09:00 Pregabalin (Lyrica) 50 mg TID PO Last administered on 11/23/16 08:49; Admin Dose 50 MG; Start 11/17/16 at 13:00 Pyridoxine HCl (Vitamin B6) 100 mg DAILY PO Last administered on 11/23/16 08: 29; Admin Dose 100 MG; Start 11/18/16 at 09:00 Simethicone (Mylicon) 80 mg Q6H PRN PO INTESTINAL SPASMS/CRAMPING; Start at 11:00 Vitamin E (Vitamin E) 400 units DAILY PO Last administered on 11/23/16 08:28; Admin Dose 400 UNITS; Start 11/18/16 at 09:00 Zolpidem Tartrate (Ambien) 10 mg QHS PRN PO INSOMNIA; Start 11/17/16 at 11:00 Fluoxetine HCl (Prozac) 20 mg DAILY PO Last administered on 11/23/16 08:28; Admin Dose 20 MG; Start 11/18/16 at 09:00 Al Hydrox/Mg Hydrox/Simethicone (Mag-Al Plus) 10 ml Q6 PRN PO DISTENSION/GAS/ BLOATING; Start 11/17/16 at 11:00 Vancomycin HCl (Vanco Iv Per Pharmacy) PER PHARMACY DOSING NOTE XX ; Start at 11:30 Miscellaneous Information 1 ea NOTE XX ; Start 11/17/16 at 11:30 Glucose (Glutose) 15 gm Q15M PRN PO DECREASED GLUCOSE; Start 11/17/16 at 11:30 Glucose (Glutose) 22.5 gm Q15M PRN PO DECREASED GLUCOSE; Start 11/17/16 at 11:30 Dextrose (D50w Syringe) 25 ml Q15M PRN IV DECREASED GLUCOSE Last administered on 11/20/16 02:28; Admin Dose 25 ML; Start 11/17/16 at 11:30 Dextrose (D50w Syringe) 50 ml Q15M PRN IV DECREASED GLUCOSE; Start 11/17/16 at 11:30 Glucagon (Glucagen) 1 mg Q15M PRN IM DECREASED GLUCOSE Last administered on 11/19 21:43; Admin Dose 1 MG; Start 11/17/16 at 11:30 Glucose (Glutose) 15 gm Q15M PRN BUCCAL DECREASED GLUCOSE; Start 11/17/16 at 11: 30 Guaifenesin (Robitussin Liquid Cup) 200 mg Q4H PRN PO COUGH; Start 11/17/16 at 16:00 Phenol (Cepastat Lozenge) 1 lozenge Q1H PRN MT cough; Start 11/17/16 at 16:00 Bisacodyl (Dulcolax Supp) 10 mg Q24H PRN ND CONSTIPATION; Start 11/17/16 at 16: 30 Cholecalciferol (Vitamin D) 1,000 unit DAILY PO Last administered on 11/23/16 08:29; Admin Dose 1,000 UNIT; Start 11/18/16 at 09:00 Diphenhydramine HCl (Benadryl) 25 mg BID PRN PO ITCHING; Start 11/17/16 at 16:30 Multivitamins Therapeutic (Theragran) 1 tab DAILY PO Last administered on 08:29; Admin Dose 1 TAB; Start 11/18/16 at 09:00 Zinc Sulfate 220 mg 220 mg DAILY PO Last administered on 11/23/16 08:28; Admin Dose 220 MG; Start 11/18/16 at 09:00 Propofol 100 ml @ 3.96 mls/hr Q12H IV Last administered on 11/23/16 13:15; Admin Dose 15.84 MLS/HR; Start 11/18/16 at 12:30 Fentanyl (Sublimaze) 100 ml @ 2.5 mls/hr TITRATE IV Last administered on 20:39; Admin Dose 2.5 MLS/HR; Start 11/18/16 at 12:30 Ferrous Sulfate (Feosol Liquid Cup) 300 mg BID GTB Last administered on 08:28; Admin Dose 300 MG; Start 11/18/16 at 21:00 Acetaminophen (Tylenol Liquid) 650 mg Q6 PRN NGT PAIN AND OR ELEVATED TEMP Last administered on 11/19/16 18:41; Admin Dose 650 MG; Start 11/19/16 at 03:30 Amikacin Sulfate (Amikacin Iv Per Pharmacy) AMIKACIN PER PHARMACY NOTE XX ; Start 11/20/16 at 11:30 Insulin Aspart (Novolog Insulin Pen) NOVOLOG *MILD* ALGORI... Q6 SC Last administered on 11/23/16 11:05; Admin Dose 3 UNIT; Start 11/20/16 at 18:00 Nystatin/ Triamcinolone Acetonide (Mycolog Oint) 1 applic BID TOP Last administered on 11/23/16 08:29; Admin Dose 1 APPLIC; Start 11/20/16 at 21:00 Docusate Sodium 200 mg 200 mg BID GTB Last administered on 11/23/16 08:28; Admin Dose 200 MG; Start 11/21/16 at 21:00 Meropenem (Merrem 500 Mg/ 100 ml (Pmx)) 100 ml @ 200 mls/hr Q24H IVPB Last administered on 11/22/16 14:02; Admin Dose 200 MLS/HR; Start 11/21/16 at 14:00 Fluconazole (Diflucan) 100 mg DAILY NGT Last administered on 11/23/16 08:32; Admin Dose 100 MG; Start 11/21/16 at 12:30 Methylprednisolone Sodium Succinate 40 mg 40 mg Q8 IV Last administered on 11/23 05:47; Admin Dose 40 MG; Start 11/21/16 at 16:00 Norepinephrine/ Dextrose (Levophed/D5W) 500 ml @ 0 mls/hr TITRATE IV Last administered on 11/22/16 20:38; Admin Dose 9.37 MLS/HR; Start 11/22/16 at 07:00 Apixaban 5 mg 5 mg BID PO Last administered on 11/23/16 08:37; Admin Dose 5 MG ; Start 11/22/16 at 21:00 Vancomycin HCl/ Sodium Chloride (Vancocin/NS) 250 ml @ 83.333 mls/ hr Q96H IVPB Last administered on 11/22/16 15:43; Admin Dose 83.333 MLS/HR; Start at 15:00 GERI LINDO Nov 23, 2016 14:49
[2016-11-23] MEDS ORDERED: LORAZEPAM 2 MG INJ IV PRN (15:00)
[2016-11-23] MEDS: MEROPENEM 500 MG/100 ML (PMX) 100 ML IVPB SCH (16:26)
[2016-11-23] MEDS: AMIKACIN 475 MG in SOD CHLORIDE 0.9% 100 ML IVPB SCH (18:11)
[2016-11-23] MEDS: FAMOTIDINE 20 MG TAB PO SCH (20:44)
[2016-11-23] MEDS: ATORVASTATIN 10 MG TAB PO SCH (20:44)
[2016-11-24] VITALS (81 sets, daily range): BP systolic 81–152; BP diastolic 55–109; PULSE 65–107; RESP 26–30
[2016-11-24] MEDS: morphine 4 MG/ML VIAL IV PRN (00:38)
[2016-11-24] MEDS: ALBUTEROL HFA 8 GM INHALER INH SCH ×6 (01:08→21:29)
[2016-11-24] MEDS: PROPOFOL 100 ML IV SCH ×5 (01:42→21:39)
[2016-11-24] MEDS: METHYLPREDNISOLONE 40 MG INJ IV SCH ×3 (05:20→21:25)
[2016-11-24] MEDS: INSULIN ASPART [NOVOLOG] 3 ML PEN SC SCH ×4 (05:22→21:08)
[2016-11-24 05:42] LABS: ADD SCAN DIFF NO
[2016-11-24 05:58] LABS: ABNORMAL IP MESSAGE 1; BASOPHILS % 0.2 % (0.0-2.0); HEMATOCRIT 35.1 % (42.0-52.0); HEMOGLOBIN 10.8 g/dl (14.0-18.0); LYMPHOCYTES # 0.5 10^3/ul (0.8-2.9); LYMPHOCYTES % 2.5 % (15.0-51.0); MEAN CORPUSCULAR HEMOGLOBIN 24.3 pg (29.0-33.0); MEAN CORPUSCULAR HGB CONC 30.8 g/dl (32.0-37.0); MEAN CORPUSCULAR VOLUME 78.9 fl (82.0-101.0); MEAN PLATELET VOLUME 11.3 fl (7.4-10.4); MONOCYTE # 0.7 10^3/ul (0.3-0.9); MONOCYTES % 3.5 % (0.0-11.0); NEUTROPHIL # 19.1 10^3/ul (1.6-7.5); NEUTROPHILS % 92.3 % (39.0-77.0); PLATELET COUNT 224 10^3/UL (140-415); RED BLOOD COUNT 4.45 10^6/ul (4.70-6.10); RED CELL DISTRIBUTION WIDTH 19.3 % (11.5-14.5); WHITE BLOOD COUNT 20.7 10^3/ul (4.8-10.8)
[2016-11-24 06:15] LABS: POTASSIUM 4.9 mmol/L (3.5-5.1)
[2016-11-24 06:17] LABS: CREATININE 2.91 mg/dl (0.61-1.24)
[2016-11-24 06:18] LABS: CALCIUM 8.3 mg/dl (8.4-10.2)
[2016-11-24 08:41] LABS: AADO2 Arterial 353.1 mmHg (7.0-24.0); Allen Test ACCEPTAB; Arterial Base Excess 0.4 mmol/L (-3.0-3); Arterial COHb 0.1 % (0.0-3.0); Arterial Fraction of Oxyhgb 86.8 % (93.0-99.0); Arterial HCO3 26.4 mmol/L (22.0-26.0); Arterial MetHb 0.3 % (0.0-1.5); Arterial Total Hemglobin 12.5 g/dl (12.0-18.0); MODE VENT - AC
--- NOTE | 2016-11-24 08:57 | RADRPT ---
PROCEDURE: XR Chest. CLINICAL INDICATION: Shortness of breath. TECHNIQUE: Single frontal view. COMPARISON: 11/23/2016. FINDINGS: The endotracheal tube, nasogastric tube, left internal jugular vein catheter, and right internal jug ular vein tunneled hemodialysis catheter remain in satisfactory position. Pulmonary edema is unchang ed. The heart is enlarged. There is a small right pleural effusion. There is no pneumothorax. IMPRESSION: 1. No change from 11/23/2016. RPTAT: QQ .Aldo Ramirez MD, MD Date Time Electronically viewed and signed by .Aldo Ramirez MD, MD on 11/24/2016 08:57 .R/
[2016-11-24] MEDS: DOCUSATE SODIUM 10 MG/ML (10ML CUP) GTB SCH ×2 (09:00→21:01)
[2016-11-24] MEDS: SEVELAMER CARBONATE 0.8 GM PKT PO SCH ×3 (09:06→17:19)
[2016-11-24] MEDS: FERROUS SULFATE 60 MG/ML 5ML CUP GTB SCH ×2 (09:06→21:01)
[2016-11-24] MEDS: APIXABAN 5 MG TABLET PO SCH ×2 (09:07→21:02)
[2016-11-24] MEDS: FLUCONAZOLE 100 MG TAB NGT SCH (09:07)
[2016-11-24] MEDS: FISH OIL 1,000 MG CAP PO SCH (09:07)
[2016-11-24] MEDS: POTASSIUM CHLORIDE (SR) 20 MEQ TAB PO SCH (09:08)
[2016-11-24] MEDS: PREGABALIN 25 MG CAP PO SCH ×3 (09:08→21:02)
[2016-11-24] MEDS: ASPIRIN (EC) 81 MG TAB PO SCH (09:08)
[2016-11-24] MEDS: LACTOBACILLUS CHEW TAB PO SCH ×3 (09:08→21:02)
[2016-11-24] MEDS: MULTIVITAMINS THERAPEUTIC TAB PO SCH (09:09)
[2016-11-24] MEDS: FLUOXETINE 20 MG CAP PO SCH (09:09)
[2016-11-24] MEDS: METOPROLOL 25 MG TAB PO SCH ×2 (09:09→21:02)
[2016-11-24] MEDS: VITAMIN E 400 UNITS CAP PO SCH (09:10)
[2016-11-24] MEDS: CHOLECALCIFEROL 1,000 UNIT TAB PO SCH (09:10)
[2016-11-24] MEDS: ZINC SULFATE 220 MG CAP PO SCH (09:10)
[2016-11-24] MEDS: PYRIDOXINE 50 MG TAB PO SCH (09:10)
[2016-11-24] MEDS: ALLOPURINOL 100 MG TAB PO SCH (09:10)
[2016-11-24] MEDS: NYSTATIN/TRIAMCINOLONE 15 GM OINT TOP SCH ×2 (09:11→21:03)
--- NOTE | 2016-11-24 09:20 | CONS ---
Date/Time of Note Date/Time of Note DATE: 11/24/16 TIME: 09:20 Assessment/Plan Assessment/Plan Chief Complaint/Hosp Course ID PROGRESS NOTE TOTAL ABX DAY #8 1. IV vancomycin 2. Amikacin 3. Fluconazole. 4. Meropenem. 24H INTERVAL SUMMARY * Orally intubated, non-communicative, calm, VSS * MICROBIOLOGY: Blood culture growing coagulase-negative staph species. Sputum culture grew Michelle albicans. Repeat blood cultures pending. * CXR 11/24: Pulmonary edema is unchanged. The heart is enlarged. There is a small right pleural effusion. There is no pneumothorax. * CT CHEST 11/21/15: 1. Extensive multifocal consolidation with air bronchograms , most prominent both lower lobes, right more than left. This is most consistent with pneumonia. There are also ground-glass opacities and interlobular septal thickening in both upper lobes, raising the possibility of superimposed pulmonary edema.2. Small bilateral pleural effusions.3. Low- attenuation blood in the heart and aorta, suggestive of anemia. Correlation with CBC is recommended.4. Dilated main pulmonary artery, suggestive of pulmonary hypertension.5. Anterior and middle mediastinal lymphadenopathy, nonspecific but possibly representing a reactive process versus a neoplastic process such as lymphoma. 6. Abdominal ascites. PHYSICAL EXAMINATION: GENERAL: 61 yo morbid obese M orally intubated, VSS, NAD HEENT: ETT/OGT->Secure NECK: Supple, full ROM CHEST: Equal chest rise bilaterally, without dyspnea on observation = Vented HEART: Pulse RRR ABDOMEN: Soft EXTREMITIES: With bilateral edema. Lower extremities Patrick wrapped bilaterally. SKIN: See hard chart skin assessment ID ASSESSMENT: 61 yo M admit with: 1. Severe sepsis with shock on admission due to #3 * BCx(-) 2. Rising Leukocytosis in setting pulmonary sepsis, IV steroids, ABX associated diarrhea 3. Acute respiratory failure-> Orally intubated/Vented * (+)PHTN per CT Chest 4. Healthcare-associated pneumonia. * Anterior and middle mediastinal lymphadenopathy, nonspecific but possibly representing a reactive process versus a neoplastic process such as lymphoma. 5. Congestive heart failure exacerbation. * Fluid overload w/pulm edema, abdominal ascites, BLEXT edema 6. Oral thrush. 7. Diabetes. 8. End-stage renal disease=> HD 9. Bilateral lower extremities chronic venous stasis with a history of osteomyelitis. 10. Diarrhea, rule out Clostridium difficile. (-)MRSA Nares INVASIVES: Endotracheal tube, NG tube, left IJ triple lumen catheter, right subclavian PermCath. ABX ALLERGY: KNDA CURRENT ABX: TOTAL ABX DAY #8 1. IV vancomycin 2. Amikacin 3. Fluconazole=> DC today and replace with Nystatin oral care for VAP prevention 4. Meropenem=>DC today = driving yeast + ABX associated diarrhea ID RECOMMENDATIONS: 1. Concern rising leukocytosis + diarrhea + steroids => recipe for C.Diff + yeast bladder sepsis * DC Merrem, Continue Amikacin for GNR coverage * DC Diflucan => will also drive ABX associated diarrhea and he only had "Scant " yeast on resp culture = change to nystatin oral 2. Will start Flagyl to cover anaerobes + ABX associated diarrhea 3. f/u on 11/23 BCx pending, C.Diff toxin pending . Problems: Consultation Date/Type/Reason Admit Date/Time Nov 17, 2016 at 12:10 Initial Consult Date 11/17/16 Type of Consultation: ID Referring Provider: FELIX SCOTT Exam/Review of Systems Vital Signs Vitals Vital Signs Date Time Temp Pulse Resp B/P Pulse Ox O2 Delivery O2 Flow Rate FiO2 11/24/16 08:00 91 11/24/16 06:30 119/69 93 Mechanical Ventilator 11/24/16 05:04 28 70 11/24/16 04:00 98.5 Intake and Output 11/23/16 11/23/16 11/24/16 15:00 23:00 07:00 Intake Total 623.26 ml 1061.28 ml 650.81 ml Output Total 45 ml 5435 ml 20 ml Balance 578.26 ml -4373.72 ml 630.81 ml Results Result Diagram: 11/24/16 0500 11/24/16 0450 Results 24 hrs Laboratory Tests Test 11/23/16 10:59 11/23/16 16:55 11/23/16 23:30 11/24/16 04:50 Bedside Glucose 240 H 211 191 Anion Gap 19 H Blood Urea Nitrogen 64 H Calcium Level 8.3 L Carbon Dioxide Level 28 Chloride Level 102 Creatinine 2.91 H Glucose Level 223 H Potassium Level 4.9 Sodium Level 144 Test 11/24/16 05:00 11/24/16 05:20 11/24/16 07:00 Basophils # 0.0 Basophils % 0.2 Eosinophils # 0.0 Eosinophils % 0.0 Hematocrit 35.1 L Hemoglobin 10.8 L Lymphocytes # 0.5 L Lymphocytes % 2.5 L Mean Corpuscular Hemoglobin 24.3 L Mean Corpuscular Hemoglobin Concent 30.8 L Mean Corpuscular Volume 78.9 L Mean Platelet Volume 11.3 H Monocytes # 0.7 Monocytes % 3.5 Neutrophils # 19.1 H Neutrophils % 92.3 H Nucleated Red Blood Cells # 0.0 Nucleated Red Blood Cells % 0.0 Platelet Count 224 # Red Blood Count 4.45 L Red Cell Distribution Width 19.3 H White Blood Count 20.7 #H Bedside Glucose 200 Arterial Blood HCO3 26.4 H Arterial Blood Base Excess 0.4 Arterial Blood Oxygen Saturation 87.1 L Khoi Test ACCEPTAB Arterial Blood Gas Puncture Site Right Radial Arterial Blood Carboxyhemoglobin 0.1 Arterial Blood Date Drawn 11/24/2016 8:30:05 AM Arterial Blood Methemoglobin 0.3 Arterial Blood pCO2 (Temp correct) 47.9 H Arterial Blood pH (Temp corrected) 7.359 Arterial Blood pO2 (Temp corrected) 58.3 L Blood Gas A-a O2 Differential 353.1 H Blood Gas Actual Respiration Rate 29 Blood Gas Low PEEP Setting 8.0 Blood Gas Modality VENT - AC Blood Gas Notified Time 11/24/2016 8:41:48 AM Blood Gas Notified Whom DT Blood Gas Respiration Rate 26.0 Blood Gas Specimen Source Blood arterial Blood Gas Temperature 37.0 Blood Gas Tidal Volume 500.0 FiO2 65.0 Oxyhemoglobin Percent 86.8 L Total Hemoglobin 12.5 Medications Medications Current Medications Ondansetron HCl (Zofran Inj) 4 mg Q6H PRN IV NAUSEA AND/OR VOMITING; Start 11/17 at 11:00 Acetaminophen/ Hydrocodone Bitart ([place] (5/325)) 1 tab Q6H PRN PO MODERATE PAIN LEVEL 4-6; Start 11/17/16 at 11:00 Magnesium Hydroxide (Milk Of Mag) 30 ml DAILY PRN PO CONSTIPATION; Start at 11:00 Sodium Biphosphate/ Sodium Phosphate (Fleet Enema) 133 ml DAILY PRN [place] CONSTIPATION; Start 11/17/16 at 11:00 Hydralazine HCl (Apresoline) 10 mg Q6H PRN IV ELEVATED BLOOD PRESSURE; Start at 11:00 Nitroglycerin (Nitroglycerin (Sl Tab) 0.4 Mg) 1 tab Q5M PRN SL ANGINA; Start at 11:00 Acetaminophen (Tylenol Tab) 650 mg Q6H PRN PO PAIN LEVEL 1-5; Start 11/17/16 at 11:00 Allopurinol (Zyloprim) 100 mg DAILY PO Last administered on 11/24/16 09:10; Admin Dose 100 MG; Start 11/18/16 at 09:00 Aspirin (Halfprin) 81 mg DAILY PO Last administered on 11/24/16 09:08; Admin Dose 81 MG; Start 11/18/16 at 09:00 Atorvastatin Calcium (Lipitor) 10 mg QHS PO Last administered on 11/23/16 20: 44; Admin Dose 10 MG; Start 11/17/16 at 21:00 Famotidine (Pepcid) 20 mg Q24H PO Last administered on 11/23/16 20:44; Admin Dose 20 MG; Start 11/17/16 at 21:00 Lactobacillus Acidoph/Bulgaricus (Floranex) 1 tab TID PO Last administered on 09:08; Admin Dose 1 TAB; Start 11/17/16 at 13:00 Lorazepam (Ativan) 0.5 mg Q6 PRN PO ANXIETY Last administered on 11/18/16 11:04 ; Admin Dose 0.5 MG; Start 11/17/16 at 11:00 Metoprolol Tartrate (Lopressor) 12.5 mg BID PO Last administered on 11/24/16 09:09; Admin Dose 12.5 MG; Start 11/17/16 at 21:00 Fish Oil (Fish Oil) 1,000 mg DAILY PO Last administered on 11/24/16 09:07; Admin Dose 1,000 MG; Start 11/18/16 at 09:00 Potassium Chloride (Klor-Con 20) 40 meq DAILY PO Last administered on 09:08; Admin Dose 40 MEQ; Start 11/18/16 at 09:00 Pregabalin (Lyrica) 50 mg TID PO Last administered on 11/24/16 09:08; Admin Dose 50 MG; Start 11/17/16 at 13:00 Pyridoxine HCl (Vitamin B6) 100 mg DAILY PO Last administered on 11/24/16 09: 10; Admin Dose 100 MG; Start 11/18/16 at 09:00 Simethicone (Mylicon) 80 mg Q6H PRN PO INTESTINAL SPASMS/CRAMPING; Start at 11:00 Vitamin E (Vitamin E) 400 units DAILY PO Last administered on 11/24/16 09:10; Admin Dose 400 UNITS; Start 11/18/16 at 09:00 Zolpidem Tartrate (Ambien) 10 mg QHS PRN PO INSOMNIA; Start 11/17/16 at 11:00 Fluoxetine HCl (Prozac) 20 mg DAILY PO Last administered on 11/24/16 09:09; Admin Dose 20 MG; Start 11/18/16 at 09:00 Al Hydrox/Mg Hydrox/Simethicone (Mag-Al Plus) 10 ml Q6 PRN PO DISTENSION/GAS/ BLOATING; Start 11/17/16 at 11:00 Vancomycin HCl (Vanco Iv Per Pharmacy) PER PHARMACY DOSING NOTE XX ; Start at 11:30 Miscellaneous Information 1 ea NOTE XX ; Start 11/17/16 at 11:30 Glucose (Glutose) 15 gm Q15M PRN PO DECREASED GLUCOSE; Start 11/17/16 at 11:30 Glucose (Glutose) 22.5 gm Q15M PRN PO DECREASED GLUCOSE; Start 11/17/16 at 11:30 Dextrose (D50w Syringe) 25 ml Q15M PRN IV DECREASED GLUCOSE Last administered on 11/20/16 02:28; Admin Dose 25 ML; Start 11/17/16 at 11:30 Dextrose (D50w Syringe) 50 ml Q15M PRN IV DECREASED GLUCOSE; Start 11/17/16 at 11:30 Glucagon (Glucagen) 1 mg Q15M PRN IM DECREASED GLUCOSE Last administered on 11/19 21:43; Admin Dose 1 MG; Start 11/17/16 at 11:30 Glucose (Glutose) 15 gm Q15M PRN BUCCAL DECREASED GLUCOSE; Start 11/17/16 at 11: 30 Guaifenesin (Robitussin Liquid Cup) 200 mg Q4H PRN PO COUGH; Start 11/17/16 at 16:00 Phenol (Cepastat Lozenge) 1 lozenge Q1H PRN MT cough; Start 11/17/16 at 16:00 Bisacodyl (Dulcolax Supp) 10 mg Q24H PRN [place] CONSTIPATION; Start 11/17/16 at 16: 30 Cholecalciferol (Vitamin D) 1,000 unit DAILY PO Last administered on 11/24/16 09:10; Admin Dose 1,000 UNIT; Start 11/18/16 at 09:00 Diphenhydramine HCl (Benadryl) 25 mg BID PRN PO ITCHING; Start 11/17/16 at 16:30 Multivitamins Therapeutic (Theragran) 1 tab DAILY PO Last administered on 09:09; Admin Dose 1 TAB; Start 11/18/16 at 09:00 Zinc Sulfate 220 mg 220 mg DAILY PO Last administered on 11/24/16 09:10; Admin Dose 220 MG; Start 11/18/16 at 09:00 Propofol (Diprivan) 100 ml @ 3.96 mls/hr Q12H IV Last administered on 05:23; Admin Dose 23.76 MLS/HR; Start 11/18/16 at 12:30 Ferrous Sulfate (Feosol Liquid Cup) 300 mg BID GTB Last administered on 09:06; Admin Dose 300 MG; Start 11/18/16 at 21:00 Acetaminophen (Tylenol Liquid) 650 mg Q6 PRN NGT PAIN AND OR ELEVATED TEMP Last administered on 11/19/16 18:41; Admin Dose 650 MG; Start 11/19/16 at 03:30 Amikacin Sulfate (Amikacin Iv Per Pharmacy) AMIKACIN PER PHARMACY NOTE XX ; Start 11/20/16 at 11:30 Insulin Aspart (Novolog Insulin Pen) NOVOLOG *MILD* ALGORI... Q6 SC Last administered on 11/24/16 05:22; Admin Dose 2 UNIT; Start 11/20/16 at 18:00 Nystatin/ Triamcinolone Acetonide (Mycolog Oint) 1 applic BID TOP Last administered on 11/24/16 09:11; Admin Dose 1 APPLIC; Start 11/20/16 at 21:00 Docusate Sodium 200 mg 200 mg BID GTB Last administered on 11/23/16 08:28; Admin Dose 200 MG; Start 11/21/16 at 21:00 Meropenem (Merrem 500 Mg/ 100 ml (Pmx)) 100 ml @ 200 mls/hr Q24H IVPB Last administered on 11/23/16 16:26; Admin Dose 200 MLS/HR; Start 11/21/16 at 14:00 Fluconazole (Diflucan) 100 mg DAILY NGT Last administered on 11/24/16 09:07; Admin Dose 100 MG; Start 11/21/16 at 12:30 Methylprednisolone Sodium Succinate 40 mg 40 mg Q8 IV Last administered on 11/24 05:20; Admin Dose 40 MG; Start 11/21/16 at 16:00 Norepinephrine/ Dextrose (Levophed/D5W) 500 ml @ 0 mls/hr TITRATE IV Last administered on 11/22/16 20:38; Admin Dose 9.37 MLS/HR; Start 11/22/16 at 07:00 Apixaban 5 mg 5 mg BID PO Last administered on 11/24/16 09:07; Admin Dose 5 MG ; Start 11/22/16 at 21:00 Vancomycin HCl/ Sodium Chloride (Vancocin/NS) 250 ml @ 83.333 mls/ hr Q96H IVPB Last administered on 11/22/16 15:43; Admin Dose 83.333 MLS/HR; Start at 15:00 Morphine Sulfate (morphine) 4 mg Q4H PRN IV SEVERE PAIN LEVEL 7-10 Last administered on 11/24/16 00:38; Admin Dose 4 MG; Start 11/23/16 at 15:00 Lorazepam (Ativan) 0.5 mg Q2H PRN IV ANXIETY; Start 11/23/16 at 15:00 JARED SALCEDO NP Nov 24, 2016 09:20
--- NOTE | 2016-11-24 09:59 | PN ---
Date/Time of Note Date/Time of Note DATE: 11/24/16 TIME: 09:50 Assessment/Plan VTE Prophylaxis VTE Prophylaxis Intervention: other Lines/Catheters IV [facility]MA CATH Urinary Cath still in place: Yes Assessment/Plan Assessment/Plan A 61-year-old male with a history of type 2 diabetes, peripheral vascular disease, prior respiratory insufficiency, end-stage renal disease, on dialysis, who presents with a cough for 1 week and SOB managed as follows: 1. Recurrent Hypoxemic / Hypercapnic resp failure / Vent dependent / 2/2 severe PNA 2. CHF exacerbation diastolic 3. Moderate tricuspid regurgitation 4. Pulmonary hypertension 5. ESRD on HD 6. Morbid obesity / cannot r/o OHS 7. COPD 8. HTN > hypotensive 2/2 sepsis 9. Paroxysmal Afib currently in sinus 10. DM2 11. Chronic depression 12. Blake LE cellulitis with Chronic foot ulcer and hx of osteomyelitis: improving 13. Hx of PVD / Gout 14. Pancytopenia with microcytosis: mild iron deficiency noted 15. Sepsis with Extensive Multifocal Pneumonia Michelle / cannot r/o bacterial component 16. History of multiple previous respiratory failure and tracheostomy in the past. 17. Pulmonary lymphadenopathy: reactive versus neoplastic PLAN: * Worsening Leucocytosis and hyperglycemia noted, likely steroid induced * CXR remains unchanged / Commence SC lantus and change to moderate SSI * Repeat albert Cultures and abx per ID * Continue Vent support and mgt/ patient still requiring 100% o2 / will likely require trach a 2nd time * Continue daily dialysis as tolerated * PRN pressor support / eliquis for Afib * Wean fentanyl, continue propofol and use PRNs * Continue aggressive abx regimen * Continue scheduled bronchodilator therapy * Continue iron replacement therapy * Defer to pulm for mgt of lymphadenopathy / possibly repeat CT once pneumonia is improved. PROPHYLAXIS: Eliquis / PPI CRITICAL CARE TIME: >35 mins Exam/Review of Systems Vital Signs Vitals Vital Signs Date Time Temp Pulse Resp B/P Pulse Ox O2 Delivery O2 Flow Rate FiO2 11/24/16 09:30 91 123/74 90 11/24/16 09:22 30 70 11/24/16 09:00 Mechanical Ventilator 11/24/16 08:00 99.5 Intake and Output 11/23/16 11/23/16 11/24/16 15:00 23:00 07:00 Intake Total 623.26 ml 1061.28 ml 650.81 ml Output Total 45 ml 5435 ml 20 ml Balance 578.26 ml -4373.72 ml 630.81 ml Exam Constitutional: obese, oriented, No alert Psych: other (unable to assess) Head: normocephalic Eyes: PERRL ENMT: intubated Respiratory: diminished breath sounds, No wheezing Cardiovascular: regular rate and rhythm, No murmurs/extra sounds Gastrointestinal: bowel sounds, other (protuberant), soft Musculoskeletal: No nl extremities to inspection Extremities: edema 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: lethargic Skin: other (erythematous skin in both lower extremities with diffuse non pitting edema up to knees bilaterally and chronic keratotic skin changes and toe ulcer) Results Result Diagram: 11/24/16 0500 11/24/16 0450 Results 24 hrs Laboratory Tests Test 11/23/16 10:59 11/23/16 16:55 11/23/16 23:30 11/24/16 04:50 Bedside Glucose 240 H 211 191 Anion Gap 19 H Blood Urea Nitrogen 64 H Calcium Level 8.3 L Carbon Dioxide Level 28 Chloride Level 102 Creatinine 2.91 H Glucose Level 223 H Potassium Level 4.9 Sodium Level 144 Test 11/24/16 05:00 11/24/16 05:20 11/24/16 07:00 Basophils # 0.0 Basophils % 0.2 Eosinophils # 0.0 Eosinophils % 0.0 Hematocrit 35.1 L Hemoglobin 10.8 L Lymphocytes # 0.5 L Lymphocytes % 2.5 L Mean Corpuscular Hemoglobin 24.3 L Mean Corpuscular Hemoglobin Concent 30.8 L Mean Corpuscular Volume 78.9 L Mean Platelet Volume 11.3 H Monocytes # 0.7 Monocytes % 3.5 Neutrophils # 19.1 H Neutrophils % 92.3 H Nucleated Red Blood Cells # 0.0 Nucleated Red Blood Cells % 0.0 Platelet Count 224 # Red Blood Count 4.45 L Red Cell Distribution Width 19.3 H White Blood Count 20.7 #H Bedside Glucose 200 Arterial Blood HCO3 26.4 H Arterial Blood Base Excess 0.4 Arterial Blood Oxygen Saturation 87.1 L Khoi Test ACCEPTAB Arterial Blood Gas Puncture Site Right Radial Arterial Blood Carboxyhemoglobin 0.1 Arterial Blood Date Drawn 11/24/2016 8:30:05 AM Arterial Blood Methemoglobin 0.3 Arterial Blood pCO2 (Temp correct) 47.9 H Arterial Blood pH (Temp corrected) 7.359 Arterial Blood pO2 (Temp corrected) 58.3 L Blood Gas A-a O2 Differential 353.1 H Blood Gas Actual Respiration Rate 29 Blood Gas Low PEEP Setting 8.0 Blood Gas Modality VENT - AC Blood Gas Notified Time 11/24/2016 8:41:48 AM Blood Gas Notified Whom DT Blood Gas Respiration Rate 26.0 Blood Gas Specimen Source Blood arterial Blood Gas Temperature 37.0 Blood Gas Tidal Volume 500.0 FiO2 65.0 Oxyhemoglobin Percent 86.8 L Total Hemoglobin 12.5 Medications Medications Current Medications Ondansetron HCl (Zofran Inj) 4 mg Q6H PRN IV NAUSEA AND/OR VOMITING; Start 11/17 at 11:00 Acetaminophen/ Hydrocodone Bitart ([place] (5/325)) 1 tab Q6H PRN PO MODERATE PAIN LEVEL 4-6; Start 11/17/16 at 11:00 Magnesium Hydroxide (Milk Of Mag) 30 ml DAILY PRN PO CONSTIPATION; Start at 11:00 Sodium Biphosphate/ Sodium Phosphate (Fleet Enema) 133 ml DAILY PRN [place] CONSTIPATION; Start 11/17/16 at 11:00 Hydralazine HCl (Apresoline) 10 mg Q6H PRN IV ELEVATED BLOOD PRESSURE; Start at 11:00 Nitroglycerin (Nitroglycerin (Sl Tab) 0.4 Mg) 1 tab Q5M PRN SL ANGINA; Start at 11:00 Acetaminophen (Tylenol Tab) 650 mg Q6H PRN PO PAIN LEVEL 1-5; Start 11/17/16 at 11:00 Allopurinol (Zyloprim) 100 mg DAILY PO Last administered on 11/24/16 09:10; Admin Dose 100 MG; Start 11/18/16 at 09:00 Aspirin (Halfprin) 81 mg DAILY PO Last administered on 11/24/16 09:08; Admin Dose 81 MG; Start 11/18/16 at 09:00 Atorvastatin Calcium (Lipitor) 10 mg QHS PO Last administered on 11/23/16 20: 44; Admin Dose 10 MG; Start 11/17/16 at 21:00 Famotidine (Pepcid) 20 mg Q24H PO Last administered on 11/23/16 20:44; Admin Dose 20 MG; Start 11/17/16 at 21:00 Lactobacillus Acidoph/Bulgaricus (Floranex) 1 tab TID PO Last administered on 09:08; Admin Dose 1 TAB; Start 11/17/16 at 13:00 Lorazepam (Ativan) 0.5 mg Q6 PRN PO ANXIETY Last administered on 11/18/16 11:04 ; Admin Dose 0.5 MG; Start 11/17/16 at 11:00 Metoprolol Tartrate (Lopressor) 12.5 mg BID PO Last administered on 11/24/16 09:09; Admin Dose 12.5 MG; Start 11/17/16 at 21:00 Fish Oil (Fish Oil) 1,000 mg DAILY PO Last administered on 11/24/16 09:07; Admin Dose 1,000 MG; Start 11/18/16 at 09:00 Potassium Chloride (Klor-Con 20) 40 meq DAILY PO Last administered on 09:08; Admin Dose 40 MEQ; Start 11/18/16 at 09:00 Pregabalin (Lyrica) 50 mg TID PO Last administered on 11/24/16 09:08; Admin Dose 50 MG; Start 11/17/16 at 13:00 Pyridoxine HCl (Vitamin B6) 100 mg DAILY PO Last administered on 11/24/16 09: 10; Admin Dose 100 MG; Start 11/18/16 at 09:00 Simethicone (Mylicon) 80 mg Q6H PRN PO INTESTINAL SPASMS/CRAMPING; Start at 11:00 Vitamin E (Vitamin E) 400 units DAILY PO Last administered on 11/24/16 09:10; Admin Dose 400 UNITS; Start 11/18/16 at 09:00 Zolpidem Tartrate (Ambien) 10 mg QHS PRN PO INSOMNIA; Start 11/17/16 at 11:00 Fluoxetine HCl (Prozac) 20 mg DAILY PO Last administered on 11/24/16 09:09; Admin Dose 20 MG; Start 11/18/16 at 09:00 Al Hydrox/Mg Hydrox/Simethicone (Mag-Al Plus) 10 ml Q6 PRN PO DISTENSION/GAS/ BLOATING; Start 11/17/16 at 11:00 Vancomycin HCl (Vanco Iv Per Pharmacy) PER PHARMACY DOSING NOTE XX ; Start at 11:30 Miscellaneous Information 1 ea NOTE XX ; Start 11/17/16 at 11:30 Glucose (Glutose) 15 gm Q15M PRN PO DECREASED GLUCOSE; Start 11/17/16 at 11:30 Glucose (Glutose) 22.5 gm Q15M PRN PO DECREASED GLUCOSE; Start 11/17/16 at 11:30 Dextrose (D50w Syringe) 25 ml Q15M PRN IV DECREASED GLUCOSE Last administered on 11/20/16 02:28; Admin Dose 25 ML; Start 11/17/16 at 11:30 Dextrose (D50w Syringe) 50 ml Q15M PRN IV DECREASED GLUCOSE; Start 11/17/16 at 11:30 Glucagon (Glucagen) 1 mg Q15M PRN IM DECREASED GLUCOSE Last administered on 11/19 21:43; Admin Dose 1 MG; Start 11/17/16 at 11:30 Glucose (Glutose) 15 gm Q15M PRN BUCCAL DECREASED GLUCOSE; Start 11/17/16 at 11: 30 Guaifenesin (Robitussin Liquid Cup) 200 mg Q4H PRN PO COUGH; Start 11/17/16 at 16:00 Phenol (Cepastat Lozenge) 1 lozenge Q1H PRN MT cough; Start 11/17/16 at 16:00 Bisacodyl (Dulcolax Supp) 10 mg Q24H PRN CO CONSTIPATION; Start 11/17/16 at 16: 30 Cholecalciferol (Vitamin D) 1,000 unit DAILY PO Last administered on 11/24/16 09:10; Admin Dose 1,000 UNIT; Start 11/18/16 at 09:00 Diphenhydramine HCl (Benadryl) 25 mg BID PRN PO ITCHING; Start 11/17/16 at 16:30 Multivitamins Therapeutic (Theragran) 1 tab DAILY PO Last administered on 09:09; Admin Dose 1 TAB; Start 11/18/16 at 09:00 Zinc Sulfate 220 mg 220 mg DAILY PO Last administered on 11/24/16 09:10; Admin Dose 220 MG; Start 11/18/16 at 09:00 Propofol (Diprivan) 100 ml @ 3.96 mls/hr Q12H IV Last administered on 09:45; Admin Dose 23.76 MLS/HR; Start 11/18/16 at 12:30 Ferrous Sulfate (Feosol Liquid Cup) 300 mg BID GTB Last administered on 09:06; Admin Dose 300 MG; Start 11/18/16 at 21:00 Acetaminophen (Tylenol Liquid) 650 mg Q6 PRN NGT PAIN AND OR ELEVATED TEMP Last administered on 11/19/16 18:41; Admin Dose 650 MG; Start 11/19/16 at 03:30 Amikacin Sulfate (Amikacin Iv Per Pharmacy) AMIKACIN PER PHARMACY NOTE XX ; Start 11/20/16 at 11:30 Insulin Aspart (Novolog Insulin Pen) NOVOLOG *MILD* ALGORI... Q6 SC Last administered on 11/24/16 05:22; Admin Dose 2 UNIT; Start 11/20/16 at 18:00 Nystatin/ Triamcinolone Acetonide (Mycolog Oint) 1 applic BID TOP Last administered on 11/24/16 09:11; Admin Dose 1 APPLIC; Start 11/20/16 at 21:00 Docusate Sodium 200 mg 200 mg BID GTB Last administered on 11/23/16 08:28; Admin Dose 200 MG; Start 11/21/16 at 21:00 Meropenem (Merrem 500 Mg/ 100 ml (Pmx)) 100 ml @ 200 mls/hr Q24H IVPB Last administered on 11/23/16 16:26; Admin Dose 200 MLS/HR; Start 11/21/16 at 14:00 Fluconazole (Diflucan) 100 mg DAILY NGT Last administered on 11/24/16 09:07; Admin Dose 100 MG; Start 11/21/16 at 12:30 Methylprednisolone Sodium Succinate 40 mg 40 mg Q8 IV Last administered on 11/24 05:20; Admin Dose 40 MG; Start 11/21/16 at 16:00 Norepinephrine/ Dextrose (Levophed/D5W) 500 ml @ 0 mls/hr TITRATE IV Last administered on 11/22/16 20:38; Admin Dose 9.37 MLS/HR; Start 11/22/16 at 07:00 Apixaban 5 mg 5 mg BID PO Last administered on 11/24/16 09:07; Admin Dose 5 MG ; Start 11/22/16 at 21:00 Vancomycin HCl/ Sodium Chloride (Vancocin/NS) 250 ml @ 83.333 mls/ hr Q96H IVPB Last administered on 11/22/16 15:43; Admin Dose 83.333 MLS/HR; Start at 15:00 Morphine Sulfate (morphine) 4 mg Q4H PRN IV SEVERE PAIN LEVEL 7-10 Last administered on 11/24/16 00:38; Admin Dose 4 MG; Start 11/23/16 at 15:00 Lorazepam (Ativan) 0.5 mg Q2H PRN IV ANXIETY; Start 11/23/16 at 15:00 Procedures Procedures PROCEDURE: XR Chest. CLINICAL INDICATION: Shortness of breath. TECHNIQUE: Single frontal view. COMPARISON: 11/23/2016. FINDINGS: The endotracheal tube, nasogastric tube, left internal jugular vein catheter, and right internal jugular vein tunneled hemodialysis catheter remain in satisfactory position. Pulmonary edema is unchanged. The heart is enlarged. There is a small right pleural effusion. There is no pneumothorax. IMPRESSION: 1. No change from 11/23/2016. RPTAT: QQ .Aldo Ramirez MD, MD Date Time Electronically viewed and signed by .Aldo Ramirez MD, MD on 11/24/2016 08:57 .R/ CC: EDNA BUSTILLO MD, [facility] GERI LINDO Nov 24, 2016 09:59
--- NOTE | 2016-11-24 10:51 | CONS ---
Date/Time of Note Date/Time of Note DATE: 11/24/16 TIME: 10:48 Assessment/Plan Assessment/Plan Additional Assessment/Plan Chest x-ray was reviewed from today which is showing diffuse bilateral it without infiltrates. Cardio megaly is present. Endotracheal tube is at an adequate level. Next Ventilator settings; AC of 26, tidal volume 500, PEEP of 8, 70% FiO2. Assessment recommendations; 1. Patient admitted with severe bilateral pneumonia leading to respiratory failure. 2. Sepsis with hypotension. 3. Morbid obesity. 4. Mild CHF. 5. Renal failure patient on hemodialysis. 6. Prior history of respiratory failure with tracheostomy with subsequent decannulation. Continue current supportive care. Patient likely would need to have a redo tracheostomy performed. Prognosis remains guarded. Consultation Date/Type/Reason Admit Date/Time Nov 17, 2016 at 12:10 Initial Consult Date 11/17/16 Type of Consultation: Coronary/critical care Referring Provider: FELIX SCOTT 24 HR Interval Summary Free Text/Dictation Patient condition remains critical. Requiring full ventilator support at high FiO2. Also requiring Levophed for blood pressure maintenance. General exam; elderly male, appears morbidly obese, orally intubated, sedated. Exam/Review of Systems Vital Signs Vitals Vital Signs Date Time Temp Pulse Resp B/P Pulse Ox O2 Delivery O2 Flow Rate FiO2 11/24/16 09:30 91 123/74 90 11/24/16 09:22 30 70 11/24/16 09:00 Mechanical Ventilator 11/24/16 08:00 99.5 Intake and Output 11/23/16 11/23/16 11/24/16 15:00 23:00 07:00 Intake Total 623.26 ml 1061.28 ml 650.81 ml Output Total 45 ml 5435 ml 20 ml Balance 578.26 ml -4373.72 ml 630.81 ml Exam HEENT examination; supple neck, positive JVD. No lymphadenopathy. Midline trachea. Orally intubated. It was equal and reactive to light bilaterally. Patient has multiple carious teeth. There is a well-healed tracheostomy scar. Chest examination; diminished breath sounds throughout. S1-S2 audible, no murmurs. Regular rhythm. Abdomen exam is; grossly protuberant. No organomegaly. Bowel sounds audible. There is a well-healed epigastric scar. Extremity exam; no peripheral edema. SITE MEDICAL DIRECTOR examination; patient is sedated. Results Result Diagram: 11/24/16 0500 11/24/16 0450 Results 24 hrs Laboratory Tests Test 11/23/16 10:59 11/23/16 16:55 11/23/16 23:30 11/24/16 04:50 Bedside Glucose 240 H 211 191 Anion Gap 19 H Blood Urea Nitrogen 64 H Calcium Level 8.3 L Carbon Dioxide Level 28 Chloride Level 102 Creatinine 2.91 H Glucose Level 223 H Potassium Level 4.9 Sodium Level 144 Test 11/24/16 05:00 11/24/16 05:20 11/24/16 07:00 Basophils # 0.0 Basophils % 0.2 Eosinophils # 0.0 Eosinophils % 0.0 Hematocrit 35.1 L Hemoglobin 10.8 L Lymphocytes # 0.5 L Lymphocytes % 2.5 L Mean Corpuscular Hemoglobin 24.3 L Mean Corpuscular Hemoglobin Concent 30.8 L Mean Corpuscular Volume 78.9 L Mean Platelet Volume 11.3 H Monocytes # 0.7 Monocytes % 3.5 Neutrophils # 19.1 H Neutrophils % 92.3 H Nucleated Red Blood Cells # 0.0 Nucleated Red Blood Cells % 0.0 Platelet Count 224 # Red Blood Count 4.45 L Red Cell Distribution Width 19.3 H White Blood Count 20.7 #H Bedside Glucose 200 Arterial Blood HCO3 26.4 H Arterial Blood Base Excess 0.4 Arterial Blood Oxygen Saturation 87.1 L Khoi Test ACCEPTAB Arterial Blood Gas Puncture Site Right Radial Arterial Blood Carboxyhemoglobin 0.1 Arterial Blood Date Drawn 11/24/2016 8:30:05 AM Arterial Blood Methemoglobin 0.3 Arterial Blood pCO2 (Temp correct) 47.9 H Arterial Blood pH (Temp corrected) 7.359 Arterial Blood pO2 (Temp corrected) 58.3 L Blood Gas A-a O2 Differential 353.1 H Blood Gas Actual Respiration Rate 29 Blood Gas Low PEEP Setting 8.0 Blood Gas Modality VENT - AC Blood Gas Notified Time 11/24/2016 8:41:48 AM Blood Gas Notified Whom DT Blood Gas Respiration Rate 26.0 Blood Gas Specimen Source Blood arterial Blood Gas Temperature 37.0 Blood Gas Tidal Volume 500.0 FiO2 65.0 Oxyhemoglobin Percent 86.8 L Total Hemoglobin 12.5 Medications Medications Current Medications Ondansetron HCl (Zofran Inj) 4 mg Q6H PRN IV NAUSEA AND/OR VOMITING; Start 11/17 at 11:00 Acetaminophen/ Hydrocodone Bitart ([place] (5/325)) 1 tab Q6H PRN PO MODERATE PAIN LEVEL 4-6; Start 11/17/16 at 11:00 Magnesium Hydroxide (Milk Of Mag) 30 ml DAILY PRN PO CONSTIPATION; Start at 11:00 Sodium Biphosphate/ Sodium Phosphate (Fleet Enema) 133 ml DAILY PRN ME CONSTIPATION; Start 11/17/16 at 11:00 Hydralazine HCl (Apresoline) 10 mg Q6H PRN IV ELEVATED BLOOD PRESSURE; Start at 11:00 Nitroglycerin (Nitroglycerin (Sl Tab) 0.4 Mg) 1 tab Q5M PRN SL ANGINA; Start at 11:00 Acetaminophen (Tylenol Tab) 650 mg Q6H PRN PO PAIN LEVEL 1-5; Start 11/17/16 at 11:00 Allopurinol (Zyloprim) 100 mg DAILY PO Last administered on 11/24/16 09:10; Admin Dose 100 MG; Start 11/18/16 at 09:00 Aspirin (Halfprin) 81 mg DAILY PO Last administered on 11/24/16 09:08; Admin Dose 81 MG; Start 11/18/16 at 09:00 Atorvastatin Calcium (Lipitor) 10 mg QHS PO Last administered on 11/23/16 20: 44; Admin Dose 10 MG; Start 11/17/16 at 21:00 Famotidine (Pepcid) 20 mg Q24H PO Last administered on 11/23/16 20:44; Admin Dose 20 MG; Start 11/17/16 at 21:00 Lactobacillus Acidoph/Bulgaricus (Floranex) 1 tab TID PO Last administered on 09:08; Admin Dose 1 TAB; Start 11/17/16 at 13:00 Lorazepam (Ativan) 0.5 mg Q6 PRN PO ANXIETY Last administered on 11/18/16 11:04 ; Admin Dose 0.5 MG; Start 11/17/16 at 11:00 Metoprolol Tartrate (Lopressor) 12.5 mg BID PO Last administered on 11/24/16 09:09; Admin Dose 12.5 MG; Start 11/17/16 at 21:00 Fish Oil (Fish Oil) 1,000 mg DAILY PO Last administered on 11/24/16 09:07; Admin Dose 1,000 MG; Start 11/18/16 at 09:00 Potassium Chloride (Klor-Con 20) 40 meq DAILY PO Last administered on 09:08; Admin Dose 40 MEQ; Start 11/18/16 at 09:00 Pregabalin (Lyrica) 50 mg TID PO Last administered on 11/24/16 09:08; Admin Dose 50 MG; Start 11/17/16 at 13:00 Pyridoxine HCl (Vitamin B6) 100 mg DAILY PO Last administered on 11/24/16 09: 10; Admin Dose 100 MG; Start 11/18/16 at 09:00 Simethicone (Mylicon) 80 mg Q6H PRN PO INTESTINAL SPASMS/CRAMPING; Start at 11:00 Vitamin E (Vitamin E) 400 units DAILY PO Last administered on 11/24/16 09:10; Admin Dose 400 UNITS; Start 11/18/16 at 09:00 Zolpidem Tartrate (Ambien) 10 mg QHS PRN PO INSOMNIA; Start 11/17/16 at 11:00 Fluoxetine HCl (Prozac) 20 mg DAILY PO Last administered on 11/24/16 09:09; Admin Dose 20 MG; Start 11/18/16 at 09:00 Al Hydrox/Mg Hydrox/Simethicone (Mag-Al Plus) 10 ml Q6 PRN PO DISTENSION/GAS/ BLOATING; Start 11/17/16 at 11:00 Vancomycin HCl (Vanco Iv Per Pharmacy) PER PHARMACY DOSING NOTE XX ; Start at 11:30 Miscellaneous Information 1 ea NOTE XX ; Start 11/17/16 at 11:30 Glucose (Glutose) 15 gm Q15M PRN PO DECREASED GLUCOSE; Start 11/17/16 at 11:30 Glucose (Glutose) 22.5 gm Q15M PRN PO DECREASED GLUCOSE; Start 11/17/16 at 11:30 Dextrose (D50w Syringe) 25 ml Q15M PRN IV DECREASED GLUCOSE Last administered on 11/20/16 02:28; Admin Dose 25 ML; Start 11/17/16 at 11:30 Dextrose (D50w Syringe) 50 ml Q15M PRN IV DECREASED GLUCOSE; Start 11/17/16 at 11:30 Glucagon (Glucagen) 1 mg Q15M PRN IM DECREASED GLUCOSE Last administered on 11/19 21:43; Admin Dose 1 MG; Start 11/17/16 at 11:30 Glucose (Glutose) 15 gm Q15M PRN BUCCAL DECREASED GLUCOSE; Start 11/17/16 at 11: 30 Guaifenesin (Robitussin Liquid Cup) 200 mg Q4H PRN PO COUGH; Start 11/17/16 at 16:00 Phenol (Cepastat Lozenge) 1 lozenge Q1H PRN MT cough; Start 11/17/16 at 16:00 Bisacodyl (Dulcolax Supp) 10 mg Q24H PRN ME CONSTIPATION; Start 11/17/16 at 16: 30 Cholecalciferol (Vitamin D) 1,000 unit DAILY PO Last administered on 11/24/16 09:10; Admin Dose 1,000 UNIT; Start 11/18/16 at 09:00 Diphenhydramine HCl (Benadryl) 25 mg BID PRN PO ITCHING; Start 11/17/16 at 16:30 Multivitamins Therapeutic (Theragran) 1 tab DAILY PO Last administered on 09:09; Admin Dose 1 TAB; Start 11/18/16 at 09:00 Zinc Sulfate 220 mg 220 mg DAILY PO Last administered on 11/24/16 09:10; Admin Dose 220 MG; Start 11/18/16 at 09:00 Propofol (Diprivan) 100 ml @ 3.96 mls/hr Q12H IV Last administered on 09:45; Admin Dose 23.76 MLS/HR; Start 11/18/16 at 12:30 Ferrous Sulfate (Feosol Liquid Cup) 300 mg BID GTB Last administered on 09:06; Admin Dose 300 MG; Start 11/18/16 at 21:00 Acetaminophen (Tylenol Liquid) 650 mg Q6 PRN NGT PAIN AND OR ELEVATED TEMP Last administered on 11/19/16 18:41; Admin Dose 650 MG; Start 11/19/16 at 03:30 Amikacin Sulfate (Amikacin Iv Per Pharmacy) AMIKACIN PER PHARMACY NOTE XX ; Start 11/20/16 at 11:30 Nystatin/ Triamcinolone Acetonide (Mycolog Oint) 1 applic BID TOP Last administered on 11/24/16 09:11; Admin Dose 1 APPLIC; Start 11/20/16 at 21:00 Docusate Sodium (Colace Liquid Cup) 200 mg BID GTB Last administered on 08:28; Admin Dose 200 MG; Start 11/21/16 at 21:00 Fluconazole (Diflucan) 100 mg DAILY NGT Last administered on 11/24/16 09:07; Admin Dose 100 MG; Start 11/21/16 at 12:30 Methylprednisolone Sodium Succinate 40 mg 40 mg Q8 IV Last administered on 11/24 05:20; Admin Dose 40 MG; Start 11/21/16 at 16:00 Norepinephrine/ Dextrose (Levophed/D5W) 500 ml @ 0 mls/hr TITRATE IV Last administered on 11/22/16 20:38; Admin Dose 9.37 MLS/HR; Start 11/22/16 at 07:00 Apixaban 5 mg 5 mg BID PO Last administered on 11/24/16 09:07; Admin Dose 5 MG ; Start 11/22/16 at 21:00 Vancomycin HCl/ Sodium Chloride (Vancocin/NS) 250 ml @ 83.333 mls/ hr Q96H IVPB Last administered on 11/22/16 15:43; Admin Dose 83.333 MLS/HR; Start at 15:00 Morphine Sulfate (morphine) 4 mg Q4H PRN IV SEVERE PAIN LEVEL 7-10 Last administered on 11/24/16 00:38; Admin Dose 4 MG; Start 11/23/16 at 15:00 Lorazepam (Ativan) 0.5 mg Q2H PRN IV ANXIETY; Start 11/23/16 at 15:00 Insulin Glargine (Lantus) 25 unit DAILY@08 SC ; Start 11/24/16 at 11:00 Insulin Aspart (Novolog Insulin Pen) NOVOLOG *MODERATE* ALGORI... Q4 SC ; Start 11/24/16 at 13:00 Metronidazole (Flagyl) 500 mg Q8 GTB ; Start 11/24/16 at 14:00; Status OLGA NICKERSON Nov 24, 2016 10:51
[2016-11-24] MEDS: INSULIN GLARGINE [LANtus] 3 ML PEN SC SCH (11:19)
[2016-11-24] MEDS: metroNIDAZOLE 500 MG TAB GTB SCH ×2 (13:37→21:25)
[2016-11-24] MEDS: NYSTATIN SUSP 5 ML CUP PO SCH ×3 (13:38→21:03)
--- NOTE | 2016-11-24 15:57 | PN ---
DATE: 11/24/2016 CARDIOLOGY FOLLOWUP SUBJECTIVE: The patient remains in atrial fibrillation. Heart rate remains stable still. Blood pr essure has been overall stable. The patient has been able to be taken down on the oxygen, only 70%. The patient is nonverbal, status post intubation on the vent. MEDICATIONS: Reviewed. PHYSICAL EXAMINATION: VITAL SIGNS: Temperature 98.7, temperature max is 99.5, heart rate of 94, blood pressure 108/64, re spiratory rate of 27, saturating % on the vent. HEENT: Normocephalic, atraumatic. Obese gentleman. Pupils are equal. CARDIOVASCULAR: Irregularly irregular. Systolic murmur. PULMONARY: Mild rhonchi. GASTROINTESTINAL: Obese, soft. EXTREMITIES: With positive edema. NEUROLOGIC: Sedated. LABORATORY DATA: Blood culture negative since yesterday. From 11/19/2016 shows gram-negative staph . WBC of 20.7, hemoglobin 10.8, platelets 224. Sodium 144, potassium 4.9, BUN 64, creatinine 2.9, g lucose of 223. Chest x-ray shows pulmonary edema, unchanged. ASSESSMENT AND PLAN: 1. Bilateral extensive pneumonia. 2. Hypoxemic respiratory failure, status post intubation, ventilator-dependent. 3. Sepsis. 4. Congestive heart failure/fluid overload secondary to diastolic dysfunction. 5. Renal failure, on dialysis. 6. History of chronic respiratory failure and tracheostomy in the past. 7. History of hypertension, currently hypotensive. 8. Diabetes. RECOMMENDATIONS: Antibiotic is being continued and managed as per ID's recommendation. Continue wi th the vent support. Continue to cut down on the oxygen as tolerated. We will continue to monitor on telemetry. Heart rate is overall stable. Eliquis will be continued as long as there is no activ e bleeding noted. Continue with the ICU care. More than 36 minutes of critical care time was spent in management of this patient excluding any pro cedures. Dictated By: GARDENIA RAZO/GREGORY Conf#: [id number] DID#: [id number]
[2016-11-24] MEDS: ATORVASTATIN 10 MG TAB PO SCH (21:02)
[2016-11-24] MEDS: FAMOTIDINE 20 MG TAB PO SCH (21:03)
[2016-11-24] MEDS: IPRATROPIUM (HFA) 12.9 GM INHALER INH PRN (21:29)
--- NOTE | 2016-11-24 21:44 | CONS ---
Date/Time of Note Date/Time of Note DATE: 11/24/16 TIME: 21:41 Assessment/Plan Assessment/Plan Additional Assessment/Plan Pt dislyzed already Awaiting pt to be weaned off vent Consultation Date/Type/Reason Admit Date/Time Nov 17, 2016 at 12:10 Initial Consult Date 11/17/16 Type of Consultation: renal Referring Provider: FELIX SCOTT 24 HR Interval Summary Free Text/Dictation remains vent dependant Exam/Review of Systems Vital Signs Vitals Vital Signs Date Time Temp Pulse Resp B/P Pulse Ox O2 Delivery O2 Flow Rate FiO2 11/24/16 18:30 79 110/68 91 11/24/16 18:00 Mechanical Ventilator 11/24/16 17:29 28 70 11/24/16 16:00 98.7 Intake and Output 11/23/16 11/23/16 11/24/16 15:00 23:00 07:00 Intake Total 623.26 ml 1061.28 ml 650.81 ml Output Total 45 ml 5435 ml 20 ml Balance 578.26 ml -4373.72 ml 630.81 ml Exam Constitutional: alert, obese, oriented, well developed Psych: nl mood/affect, no complaints Head: atraumatic, normocephalic Eyes: EOMI, PERRL, nl conjunctiva, nl lids, nl sclera ENMT: nl external ears & nose, nl lips & teeth, nl nasal mucosa & septum Neck: non-tender, supple Respiratory: clear to auscultation, normal air movement, other (on vent) Cardiovascular: nl pulses, regular rate and rhythm Gastrointestinal: distended, nl liver, spleen, non-tender, soft Musculoskeletal: nl extremities to inspection, nl gait and stance Extremities: normal pulses 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: LUMBER PILER 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, nl mental status, nl speech, nl strength Skin: nl turgor, No rash or lesions Lymph: nl lymph nodes Results Result Diagram: 11/24/16 0500 11/24/16 0450 Results 24 hrs Laboratory Tests Test 11/23/16 23:30 11/24/16 04:50 11/24/16 05:00 11/24/16 05:20 Bedside Glucose 191 200 Anion Gap 19 H Blood Urea Nitrogen 64 H Calcium Level 8.3 L Carbon Dioxide Level 28 Chloride Level 102 Creatinine 2.91 H Glucose Level 223 H Potassium Level 4.9 Sodium Level 144 Basophils # 0.0 Basophils % 0.2 Eosinophils # 0.0 Eosinophils % 0.0 Hematocrit 35.1 L Hemoglobin 10.8 L Lymphocytes # 0.5 L Lymphocytes % 2.5 L Mean Corpuscular Hemoglobin 24.3 L Mean Corpuscular Hemoglobin Concent 30.8 L Mean Corpuscular Volume 78.9 L Mean Platelet Volume 11.3 H Monocytes # 0.7 Monocytes % 3.5 Neutrophils # 19.1 H Neutrophils % 92.3 H Nucleated Red Blood Cells # 0.0 Nucleated Red Blood Cells % 0.0 Platelet Count 224 # Red Blood Count 4.45 L Red Cell Distribution Width 19.3 H White Blood Count 20.7 #H Test 11/24/16 07:00 11/24/16 11:16 11/24/16 13:26 11/24/16 17:09 Arterial Blood HCO3 26.4 H Arterial Blood Base Excess 0.4 Arterial Blood Oxygen Saturation 87.1 L Khoi Test ACCEPTAB Arterial Blood Gas Puncture Site Right Radial Arterial Blood Carboxyhemoglobin 0.1 Arterial Blood Date Drawn 11/24/2016 8:30:05 AM Arterial Blood Methemoglobin 0.3 Arterial Blood pCO2 (Temp correct) 47.9 H Arterial Blood pH (Temp corrected) 7.359 Arterial Blood pO2 (Temp corrected) 58.3 L Blood Gas A-a O2 Differential 353.1 H Blood Gas Actual Respiration Rate 29 Blood Gas Low PEEP Setting 8.0 Blood Gas Modality VENT - AC Blood Gas Notified Time 11/24/2016 8:41:48 AM Blood Gas Notified Whom DT Blood Gas Respiration Rate 26.0 Blood Gas Specimen Source Blood arterial Blood Gas Temperature 37.0 Blood Gas Tidal Volume 500.0 FiO2 65.0 Oxyhemoglobin Percent 86.8 L Total Hemoglobin 12.5 Bedside Glucose 257 H 272 H 215 Test 11/24/16 21:06 Bedside Glucose 216 Medications Medications Current Medications Ondansetron HCl (Zofran Inj) 4 mg Q6H PRN IV NAUSEA AND/OR VOMITING; Start 11/17 at 11:00 Acetaminophen/ Hydrocodone Bitart ([place] (5/325)) 1 tab Q6H PRN PO MODERATE PAIN LEVEL 4-6; Start 11/17/16 at 11:00 Magnesium Hydroxide (Milk Of Mag) 30 ml DAILY PRN PO CONSTIPATION; Start at 11:00 Sodium Biphosphate/ Sodium Phosphate (Fleet Enema) 133 ml DAILY PRN ND CONSTIPATION; Start 11/17/16 at 11:00 Hydralazine HCl (Apresoline) 10 mg Q6H PRN IV ELEVATED BLOOD PRESSURE; Start at 11:00 Nitroglycerin (Nitroglycerin (Sl Tab) 0.4 Mg) 1 tab Q5M PRN SL ANGINA; Start at 11:00 Acetaminophen (Tylenol Tab) 650 mg Q6H PRN PO PAIN LEVEL 1-5; Start 11/17/16 at 11:00 Allopurinol (Zyloprim) 100 mg DAILY PO Last administered on 11/24/16 09:10; Admin Dose 100 MG; Start 11/18/16 at 09:00 Aspirin (Halfprin) 81 mg DAILY PO Last administered on 11/24/16 09:08; Admin Dose 81 MG; Start 11/18/16 at 09:00 Atorvastatin Calcium (Lipitor) 10 mg QHS PO Last administered on 11/24/16 21: 02; Admin Dose 10 MG; Start 11/17/16 at 21:00 Famotidine (Pepcid) 20 mg Q24H PO Last administered on 11/24/16 21:03; Admin Dose 20 MG; Start 11/17/16 at 21:00 Lactobacillus Acidoph/Bulgaricus (Floranex) 1 tab TID PO Last administered on 21:02; Admin Dose 1 TAB; Start 11/17/16 at 13:00 Lorazepam (Ativan) 0.5 mg Q6 PRN PO ANXIETY Last administered on 11/18/16 11:04 ; Admin Dose 0.5 MG; Start 11/17/16 at 11:00 Metoprolol Tartrate (Lopressor) 12.5 mg BID PO Last administered on 11/24/16 21:02; Admin Dose 12.5 MG; Start 11/17/16 at 21:00 Fish Oil (Fish Oil) 1,000 mg DAILY PO Last administered on 11/24/16 09:07; Admin Dose 1,000 MG; Start 11/18/16 at 09:00 Potassium Chloride (Klor-Con 20) 40 meq DAILY PO Last administered on 09:08; Admin Dose 40 MEQ; Start 11/18/16 at 09:00 Pregabalin (Lyrica) 50 mg TID PO Last administered on 11/24/16 21:02; Admin Dose 50 MG; Start 11/17/16 at 13:00 Pyridoxine HCl (Vitamin B6) 100 mg DAILY PO Last administered on 11/24/16 09: 10; Admin Dose 100 MG; Start 11/18/16 at 09:00 Simethicone (Mylicon) 80 mg Q6H PRN PO INTESTINAL SPASMS/CRAMPING; Start at 11:00 Vitamin E (Vitamin E) 400 units DAILY PO Last administered on 11/24/16 09:10; Admin Dose 400 UNITS; Start 11/18/16 at 09:00 Zolpidem Tartrate (Ambien) 10 mg QHS PRN PO INSOMNIA; Start 11/17/16 at 11:00 Fluoxetine HCl (Prozac) 20 mg DAILY PO Last administered on 11/24/16 09:09; Admin Dose 20 MG; Start 11/18/16 at 09:00 Al Hydrox/Mg Hydrox/Simethicone (Mag-Al Plus) 10 ml Q6 PRN PO DISTENSION/GAS/ BLOATING; Start 11/17/16 at 11:00 Vancomycin HCl (Vanco Iv Per Pharmacy) PER PHARMACY DOSING NOTE XX ; Start at 11:30 Miscellaneous Information 1 ea NOTE XX ; Start 11/17/16 at 11:30 Glucose (Glutose) 15 gm Q15M PRN PO DECREASED GLUCOSE; Start 11/17/16 at 11:30 Glucose (Glutose) 22.5 gm Q15M PRN PO DECREASED GLUCOSE; Start 11/17/16 at 11:30 Dextrose (D50w Syringe) 25 ml Q15M PRN IV DECREASED GLUCOSE Last administered on 11/20/16 02:28; Admin Dose 25 ML; Start 11/17/16 at 11:30 Dextrose (D50w Syringe) 50 ml Q15M PRN IV DECREASED GLUCOSE; Start 11/17/16 at 11:30 Glucagon (Glucagen) 1 mg Q15M PRN IM DECREASED GLUCOSE Last administered on 11/19 21:43; Admin Dose 1 MG; Start 11/17/16 at 11:30 Glucose (Glutose) 15 gm Q15M PRN BUCCAL DECREASED GLUCOSE; Start 11/17/16 at 11: 30 Guaifenesin (Robitussin Liquid Cup) 200 mg Q4H PRN PO COUGH; Start 11/17/16 at 16:00 Phenol (Cepastat Lozenge) 1 lozenge Q1H PRN MT cough; Start 11/17/16 at 16:00 Bisacodyl (Dulcolax Supp) 10 mg Q24H PRN ND CONSTIPATION; Start 11/17/16 at 16: 30 Cholecalciferol (Vitamin D) 1,000 unit DAILY PO Last administered on 11/24/16 09:10; Admin Dose 1,000 UNIT; Start 11/18/16 at 09:00 Diphenhydramine HCl (Benadryl) 25 mg BID PRN PO ITCHING; Start 11/17/16 at 16:30 Multivitamins Therapeutic (Theragran) 1 tab DAILY PO Last administered on 09:09; Admin Dose 1 TAB; Start 11/18/16 at 09:00 Zinc Sulfate 220 mg 220 mg DAILY PO Last administered on 11/24/16 09:10; Admin Dose 220 MG; Start 11/18/16 at 09:00 Propofol (Diprivan) 100 ml @ 3.96 mls/hr Q12H IV Last administered on 21:39; Admin Dose 23.76 MLS/HR; Start 11/18/16 at 12:30 Ferrous Sulfate (Feosol Liquid Cup) 300 mg BID GTB Last administered on 21:01; Admin Dose 300 MG; Start 11/18/16 at 21:00 Acetaminophen (Tylenol Liquid) 650 mg Q6 PRN NGT PAIN AND OR ELEVATED TEMP Last administered on 11/19/16 18:41; Admin Dose 650 MG; Start 11/19/16 at 03:30 Amikacin Sulfate (Amikacin Iv Per Pharmacy) AMIKACIN PER PHARMACY NOTE XX ; Start 11/20/16 at 11:30 Nystatin/ Triamcinolone Acetonide (Mycolog Oint) 1 applic BID TOP Last administered on 11/24/16 21:03; Admin Dose 1 APPLIC; Start 11/20/16 at 21:00 Docusate Sodium (Colace Liquid Cup) 200 mg BID GTB Last administered on 21:01; Admin Dose 200 MG; Start 11/21/16 at 21:00 Methylprednisolone Sodium Succinate 40 mg 40 mg Q8 IV Last administered on 11/24 21:25; Admin Dose 40 MG; Start 11/21/16 at 16:00 Norepinephrine/ Dextrose (Levophed/D5W) 500 ml @ 0 mls/hr TITRATE IV Last administered on 11/22/16 20:38; Admin Dose 9.37 MLS/HR; Start 11/22/16 at 07:00 Apixaban 5 mg 5 mg BID PO Last administered on 11/24/16 21:02; Admin Dose 5 MG ; Start 11/22/16 at 21:00 Vancomycin HCl/ Sodium Chloride (Vancocin/NS) 250 ml @ 83.333 mls/ hr Q96H IVPB Last administered on 11/22/16 15:43; Admin Dose 83.333 MLS/HR; Start at 15:00 Morphine Sulfate (morphine) 4 mg Q4H PRN IV SEVERE PAIN LEVEL 7-10 Last administered on 11/24/16 00:38; Admin Dose 4 MG; Start 11/23/16 at 15:00 Lorazepam (Ativan) 0.5 mg Q2H PRN IV ANXIETY; Start 11/23/16 at 15:00 Insulin Glargine (Lantus) 25 unit DAILY@08 SC Last administered on 11/24/16 11 :19; Admin Dose 25 UNIT; Start 11/24/16 at 11:00 Insulin Aspart (Novolog Insulin Pen) NOVOLOG *MODERATE* ALGORI... Q4 SC Last administered on 11/24/16 21:08; Admin Dose 4 UNIT; Start 11/24/16 at 13:00 Metronidazole (Flagyl) 500 mg Q8 GTB Last administered on 11/24/16 21:25; Admin Dose 500 MG; Start 11/24/16 at 14:00 Nystatin (Nystatin Susp) 5 ml QID PO Last administered on 11/24/16 21:03; Admin Dose 5 ML; Start 11/24/16 at 13:00 ALONSO MARTINEZ MD Nov 24, 2016 21:43
[2016-11-25] VITALS (89 sets, daily range): BP systolic 86–120; BP diastolic 52–72; PULSE 65–98; RESP 0–32
[2016-11-25] MEDS: ALBUTEROL HFA 8 GM INHALER INH SCH ×6 (00:52→21:27)
[2016-11-25] MEDS: PROPOFOL 100 ML IV SCH ×5 (01:05→19:31)
[2016-11-25] MEDS: INSULIN ASPART [NOVOLOG] 3 ML PEN SC SCH ×6 (01:10→20:15)
[2016-11-25] MEDS: metroNIDAZOLE 500 MG TAB GTB SCH ×3 (05:00→21:07)
[2016-11-25] MEDS: METHYLPREDNISOLONE 40 MG INJ IV SCH ×3 (05:00→21:06)
[2016-11-25 05:55] LABS: ADD SCAN DIFF NO
[2016-11-25 06:09] LABS: POTASSIUM 5.3 mmol/L (3.5-5.1)
[2016-11-25 06:11] LABS: CREATININE 3.58 mg/dl (0.61-1.24); TOTAL PROTEIN 6.8 g/dl (6.1-8.1)
[2016-11-25 06:12] LABS: CALCIUM 7.9 mg/dl (8.4-10.2); MAGNESIUM 2.3 mg/dl (1.7-2.5); PHOSPHORUS 5.4 mg/dl (2.5-4.9)
[2016-11-25 06:20] LABS: ABNORMAL IP MESSAGE 1; BASOPHILS % 0.1 % (0.0-2.0); HEMATOCRIT 34.7 % (42.0-52.0); HEMOGLOBIN 10.5 g/dl (14.0-18.0); LYMPHOCYTES # 0.6 10^3/ul (0.8-2.9); LYMPHOCYTES % 2.7 % (15.0-51.0); MEAN CORPUSCULAR HEMOGLOBIN 24.2 pg (29.0-33.0); MEAN CORPUSCULAR HGB CONC 30.3 g/dl (32.0-37.0); MEAN CORPUSCULAR VOLUME 80.1 fl (82.0-101.0); MEAN PLATELET VOLUME 11.4 fl (7.4-10.4); MONOCYTE # 1.2 10^3/ul (0.3-0.9); MONOCYTES % 5.3 % (0.0-11.0); NEUTROPHIL # 19.5 10^3/ul (1.6-7.5); NEUTROPHILS % 89.1 % (39.0-77.0); PLATELET COUNT 215 10^3/UL (140-415); RED BLOOD COUNT 4.33 10^6/ul (4.70-6.10); RED CELL DISTRIBUTION WIDTH 19.9 % (11.5-14.5); WHITE BLOOD COUNT 21.9 10^3/ul (4.8-10.8)
[2016-11-25] MEDS: SEVELAMER CARBONATE 0.8 GM PKT PO SCH ×3 (07:35→17:18)
[2016-11-25] MEDS: METOPROLOL 25 MG TAB PO SCH ×2 (09:00→20:15)
[2016-11-25] MEDS ORDERED: POTASSIUM CHLORIDE 20 MEQ POWDER FOR ORAL SOLN NGT SCH (09:00)
[2016-11-25] MEDS: NYSTATIN SUSP 5 ML CUP PO SCH ×4 (09:00→20:02)
[2016-11-25] MEDS: INSULIN GLARGINE [LANtus] 3 ML PEN SC SCH (09:37)
--- NOTE | 2016-11-25 11:40 | CONS ---
Date/Time of Note Date/Time of Note DATE: 11/25/16 TIME: 11:36 Assessment/Plan Assessment/Plan Additional Assessment/Plan Ventilator settings; AC of 26, tidal volume 500, PEEP of 8, 75% FiO2. Assessment recommendations; 1. Patient admitted for respiratory failure due to pneumonia. 2. Prior history of respiratory failure status post tracheostomy with subsequent decannulation. 3. End-stage renal disease on hemodialysis. 4. Morbid obesity. 5. Mild hypotension. Continue current treatment. Obtain a chest x-ray. Patient likely would need to have a redo tracheostomy performed. Will obtain blood gas on current ventilator settings. Prognosis remains poor. Consultation Date/Type/Reason Admit Date/Time Nov 17, 2016 at 12:10 Initial Consult Date 11/17/16 Type of Consultation: Pulmonary/critical care Reason for Consultation Patient's condition remains to be critical. Still requiring full ventilator support at high FiO2. Patient also be maintained on Levophed drip at 2 mics per minute. Currently getting hemodialysis at bedside. General exam; elderly male, morbidly obese, sedated, on ventilator via endotracheal tube. Sedated. Currently in no distress. Referring Provider: FELIX SCOTT Exam/Review of Systems Vital Signs Vitals Vital Signs Date Time Temp Pulse Resp B/P Pulse Ox O2 Delivery O2 Flow Rate FiO2 11/25/16 09:22 88 30 92 75 11/25/16 09:00 120/70 Mechanical Ventilator 11/25/16 08:00 98.8 Intake and Output 11/24/16 11/24/16 11/25/16 15:00 23:00 07:00 Intake Total 380 ml 556.90 ml 715.04 ml Output Total 80 ml 45 ml 15 ml Balance 300 ml 511.90 ml 700.04 ml Exam H EENT exam; supple neck, there is a well-healed tracheostomy scar. Orally intubated. Small pupils bilaterally. Dentition is fair. No neck masses. No thyromegaly. Chest examination MD: Diminished breath sounds throughout. S1-S2 audible, no murmurs. Regular rhythm. Abdomen examination; grossly protuberant. Bowel sounds audible. There is a well-healed epigastric scar. Extremity exam; no peripheral edema. Pulses 1+ bilaterally. STAFF SOFTWARE ENGINEER examination a micro patient is sedated. Results Result Diagram: 11/25/1652911/25/16529 Results 24 hrs Laboratory Tests Test 11/24/16 13:26 11/24/16 17:09 11/24/16 21:06 11/25/16 01:07 Bedside Glucose 272 H 215 216 238 H Test 11/25/16 04:56 11/25/16 05:30 11/25/16 09:00 Bedside Glucose 193 241 H Alanine Aminotransferase (ALT/SGPT) 23 Albumin 3.0 L Alkaline Phosphatase 124 H Anion Gap 21 H Aspartate Amino Transf (AST/SGOT) 16 Basophils # 0.0 Basophils % 0.1 Blood Urea Nitrogen 87 H Calcium Level 7.9 L Carbon Dioxide Level 26 Chloride Level 100 Creatinine 3.58 H Direct Bilirubin 0.00 Eosinophils # 0.0 Eosinophils % 0.0 Glucose Level 222 H Hematocrit 34.7 L Hemoglobin 10.5 L Indirect Bilirubin 0.0 Lymphocytes # 0.6 L Lymphocytes % 2.7 L Magnesium Level 2.3 Mean Corpuscular Hemoglobin 24.2 L Mean Corpuscular Hemoglobin Concent 30.3 L Mean Corpuscular Volume 80.1 L Mean Platelet Volume 11.4 H Monocytes # 1.2 H Monocytes % 5.3 Neutrophils # 19.5 H Neutrophils % 89.1 H Nucleated Red Blood Cells # 0.0 Nucleated Red Blood Cells % 0.0 Phosphorus Level 5.4 H Platelet Count 215 Potassium Level 5.3 H Red Blood Count 4.33 L Red Cell Distribution Width 19.9 H Sodium Level 142 Total Bilirubin 0.0 L Total Protein 6.8 White Blood Count 21.9 H Medications Medications Current Medications Ondansetron HCl (Zofran Inj) 4 mg Q6H PRN IV NAUSEA AND/OR VOMITING; Start 11/17 at 11:00 Acetaminophen/ Hydrocodone Bitart ([place] (5/325)) 1 tab Q6H PRN PO MODERATE PAIN LEVEL 4-6; Start 11/17/16 at 11:00 Magnesium Hydroxide (Milk Of Mag) 30 ml DAILY PRN PO CONSTIPATION; Start at 11:00 Sodium Biphosphate/ Sodium Phosphate (Fleet Enema) 133 ml DAILY PRN NE CONSTIPATION; Start 11/17/16 at 11:00 Hydralazine HCl (Apresoline) 10 mg Q6H PRN IV ELEVATED BLOOD PRESSURE; Start at 11:00 Nitroglycerin (Nitroglycerin (Sl Tab) 0.4 Mg) 1 tab Q5M PRN SL ANGINA; Start at 11:00 Acetaminophen (Tylenol Tab) 650 mg Q6H PRN PO PAIN LEVEL 1-5; Start 11/17/16 at 11:00 Allopurinol (Zyloprim) 100 mg DAILY PO Last administered on 11/24/16 09:10; Admin Dose 100 MG; Start 11/18/16 at 09:00 Aspirin (Halfprin) 81 mg DAILY PO Last administered on 11/24/16 09:08; Admin Dose 81 MG; Start 11/18/16 at 09:00 Atorvastatin Calcium (Lipitor) 10 mg QHS PO Last administered on 11/24/16 21: 02; Admin Dose 10 MG; Start 11/17/16 at 21:00 Famotidine (Pepcid) 20 mg Q24H PO Last administered on 11/24/16 21:03; Admin Dose 20 MG; Start 11/17/16 at 21:00 Lactobacillus Acidoph/Bulgaricus (Floranex) 1 tab TID PO Last administered on 21:02; Admin Dose 1 TAB; Start 11/17/16 at 13:00 Lorazepam (Ativan) 0.5 mg Q6 PRN PO ANXIETY Last administered on 11/18/16 11:04 ; Admin Dose 0.5 MG; Start 11/17/16 at 11:00 Metoprolol Tartrate (Lopressor) 12.5 mg BID PO Last administered on 11/24/16 21:02; Admin Dose 12.5 MG; Start 11/17/16 at 21:00 Fish Oil (Fish Oil) 1,000 mg DAILY PO Last administered on 11/24/16 09:07; Admin Dose 1,000 MG; Start 11/18/16 at 09:00 Pregabalin (Lyrica) 50 mg TID PO Last administered on 11/24/16 21:02; Admin Dose 50 MG; Start 11/17/16 at 13:00 Pyridoxine HCl (Vitamin B6) 100 mg DAILY PO Last administered on 11/24/16 09: 10; Admin Dose 100 MG; Start 11/18/16 at 09:00 Simethicone (Mylicon) 80 mg Q6H PRN PO INTESTINAL SPASMS/CRAMPING; Start at 11:00 Vitamin E (Vitamin E) 400 units DAILY PO Last administered on 11/24/16 09:10; Admin Dose 400 UNITS; Start 11/18/16 at 09:00 Zolpidem Tartrate (Ambien) 10 mg QHS PRN PO INSOMNIA; Start 11/17/16 at 11:00 Fluoxetine HCl (Prozac) 20 mg DAILY PO Last administered on 11/24/16 09:09; Admin Dose 20 MG; Start 11/18/16 at 09:00 Al Hydrox/Mg Hydrox/Simethicone (Mag-Al Plus) 10 ml Q6 PRN PO DISTENSION/GAS/ BLOATING; Start 11/17/16 at 11:00 Vancomycin HCl (Vanco Iv Per Pharmacy) PER PHARMACY DOSING NOTE XX ; Start at 11:30 Miscellaneous Information 1 ea NOTE XX ; Start 11/17/16 at 11:30 Glucose (Glutose) 15 gm Q15M PRN PO DECREASED GLUCOSE; Start 11/17/16 at 11:30 Glucose (Glutose) 22.5 gm Q15M PRN PO DECREASED GLUCOSE; Start 11/17/16 at 11:30 Dextrose (D50w Syringe) 25 ml Q15M PRN IV DECREASED GLUCOSE Last administered on 11/20/16 02:28; Admin Dose 25 ML; Start 11/17/16 at 11:30 Dextrose (D50w Syringe) 50 ml Q15M PRN IV DECREASED GLUCOSE; Start 11/17/16 at 11:30 Glucagon (Glucagen) 1 mg Q15M PRN IM DECREASED GLUCOSE Last administered on 11/19 21:43; Admin Dose 1 MG; Start 11/17/16 at 11:30 Glucose (Glutose) 15 gm Q15M PRN BUCCAL DECREASED GLUCOSE; Start 11/17/16 at 11: 30 Guaifenesin (Robitussin Liquid Cup) 200 mg Q4H PRN PO COUGH; Start 11/17/16 at 16:00 Phenol (Cepastat Lozenge) 1 lozenge Q1H PRN MT cough; Start 11/17/16 at 16:00 Bisacodyl (Dulcolax Supp) 10 mg Q24H PRN NE CONSTIPATION; Start 11/17/16 at 16: 30 Cholecalciferol (Vitamin D) 1,000 unit DAILY PO Last administered on 11/24/16 09:10; Admin Dose 1,000 UNIT; Start 11/18/16 at 09:00 Diphenhydramine HCl (Benadryl) 25 mg BID PRN PO ITCHING; Start 11/17/16 at 16:30 Multivitamins Therapeutic (Theragran) 1 tab DAILY PO Last administered on 09:09; Admin Dose 1 TAB; Start 11/18/16 at 09:00 Zinc Sulfate 220 mg 220 mg DAILY PO Last administered on 11/24/16 09:10; Admin Dose 220 MG; Start 11/18/16 at 09:00 Propofol (Diprivan) 100 ml @ 3.96 mls/hr Q12H IV Last administered on 09:52; Admin Dose 23.76 MLS/HR; Start 11/18/16 at 12:30 Ferrous Sulfate (Feosol Liquid Cup) 300 mg BID GTB Last administered on 21:01; Admin Dose 300 MG; Start 11/18/16 at 21:00 Acetaminophen (Tylenol Liquid) 650 mg Q6 PRN NGT PAIN AND OR ELEVATED TEMP Last administered on 11/19/16 18:41; Admin Dose 650 MG; Start 11/19/16 at 03:30 Amikacin Sulfate (Amikacin Iv Per Pharmacy) AMIKACIN PER PHARMACY NOTE XX ; Start 11/20/16 at 11:30 Nystatin/ Triamcinolone Acetonide (Mycolog Oint) 1 applic BID TOP Last administered on 11/24/16 21:03; Admin Dose 1 APPLIC; Start 11/20/16 at 21:00 Docusate Sodium (Colace Liquid Cup) 200 mg BID GTB Last administered on 21:01; Admin Dose 200 MG; Start 11/21/16 at 21:00 Methylprednisolone Sodium Succinate 40 mg 40 mg Q8 IV Last administered on 11/25 05:00; Admin Dose 40 MG; Start 11/21/16 at 16:00 Norepinephrine/ Dextrose (Levophed/D5W) 500 ml @ 0 mls/hr TITRATE IV Last administered on 11/22/16 20:38; Admin Dose 9.37 MLS/HR; Start 11/22/16 at 07:00 Apixaban 5 mg 5 mg BID PO Last administered on 11/24/16 21:02; Admin Dose 5 MG ; Start 11/22/16 at 21:00 Vancomycin HCl/ Sodium Chloride (Vancocin/NS) 250 ml @ 83.333 mls/ hr Q96H IVPB Last administered on 11/22/16 15:43; Admin Dose 83.333 MLS/HR; Start at 15:00 Morphine Sulfate (morphine) 4 mg Q4H PRN IV SEVERE PAIN LEVEL 7-10 Last administered on 11/24/16 00:38; Admin Dose 4 MG; Start 11/23/16 at 15:00 Lorazepam (Ativan) 0.5 mg Q2H PRN IV ANXIETY; Start 11/23/16 at 15:00 Insulin Glargine (Lantus) 25 unit DAILY@08 SC Last administered on 11/25/16 09 :37; Admin Dose 25 UNIT; Start 11/24/16 at 11:00 Insulin Aspart (Novolog Insulin Pen) NOVOLOG *MODERATE* ALGORI... Q4 SC Last administered on 11/25/16 09:37; Admin Dose 6 UNIT; Start 11/24/16 at 13:00 Metronidazole (Flagyl) 500 mg Q8 GTB Last administered on 11/25/16 05:00; Admin Dose 500 MG; Start 11/24/16 at 14:00 Nystatin (Nystatin Susp) 5 ml QID PO Last administered on 11/24/16 21:03; Admin Dose 5 ML; Start 11/24/16 at 13:00 Potassium Chloride (Potassium Chloride Pwd/Soln) 40 meq DAILY NGT ; Start at 09:00; Status Future Hold OLGA DARDEN Nov 25, 2016 11:40
[2016-11-25] MEDS: PREGABALIN 25 MG CAP PO SCH ×2 (13:00→14:01)
[2016-11-25] MEDS: LACTOBACILLUS CHEW TAB PO SCH ×3 (13:00→20:02)
--- NOTE | 2016-11-25 13:57 | CONS ---
Date/Time of Note Date/Time of Note DATE: 11/25/16 TIME: 13:50 Assessment/Plan Assessment/Plan Chief Complaint/Hosp Course ID PROGRESS NOTE TOTAL ABX DAY #9 1. IV vancomycin #9 2. Amikacin #9 3. Flagyl NGT #2 ABX associated diarrhea 4. Nystatin oral care QID Yeast VAP prevention s/p Fluconazole=>DC'd 11/24 replaced with Nystatin oral care for VAP prevention s/p Meropenem=>DC'd 11/24 due to concern driving yeast + ABX associated diarrhea 24H INTERVAL SUMMARY * Orally intubated, non-communicative, calm, VSS * Afebrile, (+)Diarrhea yesterday w/rising WBC => ABX adjusted * IV Steroids may be driving leukocytosis * MICROBIOLOGY: Blood culture growing coagulase-negative staph species. Sputum culture grew Michelle albicans. Repeat blood Cx(-) * CXR 11/24: Pulmonary edema is unchanged. The heart is enlarged. There is a small right pleural effusion. There is no pneumothorax. * CT CHEST 11/21/15: 1. Extensive multifocal consolidation with air bronchograms , most prominent both lower lobes, right more than left. This is most consistent with pneumonia. There are also ground-glass opacities and interlobular septal thickening in both upper lobes, raising the possibility of superimposed pulmonary edema.2. Small bilateral pleural effusions.3. Low- attenuation blood in the heart and aorta, suggestive of anemia. Correlation with CBC is recommended.4. Dilated main pulmonary artery, suggestive of pulmonary hypertension.5. Anterior and middle mediastinal lymphadenopathy, nonspecific but possibly representing a reactive process versus a neoplastic process such as lymphoma. 6. Abdominal ascites. PHYSICAL EXAMINATION: GENERAL: 61 yo morbid obese M orally intubated, VSS, NAD HEENT: ETT/OGT->Secure NECK: Supple, full ROM CHEST: Equal chest rise bilaterally, without dyspnea on observation = Vented HEART: Pulse RRR ABDOMEN: Soft EXTREMITIES: With bilateral edema. Lower extremities Patrick wrapped bilaterally. SKIN: See hard chart skin assessment ID ASSESSMENT: 61 yo M admit with: 1. Severe sepsis with shock on admission due to #3 * BCx(-) * Fevers resolved 2. Rising Leukocytosis in setting pulmonary sepsis, IV steroids, ABX associated diarrhea 3. Acute respiratory failure-> Orally intubated/Vented * (+)PHTN per CT Chest 4. Healthcare-associated pneumonia. * Anterior and middle mediastinal lymphadenopathy, nonspecific but possibly representing a reactive process versus a neoplastic process such as lymphoma. 5. Congestive heart failure exacerbation. * Fluid overload w/pulm edema, abdominal ascites, BLEXT edema 6. Oral thrush. 7. Diabetes. 8. End-stage renal disease=> HD 9. Bilateral lower extremities chronic venous stasis with a history of osteomyelitis. 10. Diarrhea, rule out Clostridium difficile. (-)MRSA Nares INVASIVES: Endotracheal tube, NG tube, left IJ triple lumen catheter, right subclavian PermCath. ABX ALLERGY: KNDA CURRENT ABX: TOTAL ABX DAY #9 1. IV vancomycin #9 2. Amikacin #9 3. Flagyl NGT #2 ABX associated diarrhea 4. Nystatin oral care QID Yeast VAP prevention s/p Fluconazole=>DC'd 11/24 replaced with Nystatin oral care for VAP prevention s/p Meropenem #8=>DC'd 11/24 due to concern driving yeast + ABX associated diarrhea ID RECOMMENDATIONS: Stable, Afebrile, (+)Diarrhea yesterday w/rising WBC => ABX adjusted as above, pt received 8 days Merrem + only scant yeast in resp cx * IV Steroids may be driving leukocytosis . Problems: Consultation Date/Type/Reason Admit Date/Time Nov 17, 2016 at 12:10 Initial Consult Date 11/17/16 Type of Consultation: ID Referring Provider: FELIX SCOTT Exam/Review of Systems Vital Signs Vitals Vital Signs Date Time Temp Pulse Resp B/P Pulse Ox O2 Delivery O2 Flow Rate FiO2 11/25/16 12:00 75 11/25/16 11:30 20 11/25/16 09:22 92 75 11/25/16 09:00 120/70 Mechanical Ventilator 11/25/16 08:00 98.8 Intake and Output 11/24/16 11/24/16 11/25/16 15:00 23:00 07:00 Intake Total 380 ml 556.90 ml 715.04 ml Output Total 80 ml 45 ml 15 ml Balance 300 ml 511.90 ml 700.04 ml Results Result Diagram: 11/25/16 0530 11/25/16 0530 Results 24 hrs Laboratory Tests Test 11/24/16 17:09 11/24/16 21:06 11/25/16 01:07 11/25/16 04:56 Bedside Glucose 215 216 238 H 193 Test 11/25/16 05:30 11/25/16 09:00 11/25/16 13:31 Alanine Aminotransferase (ALT/SGPT) 23 Albumin 3.0 L Alkaline Phosphatase 124 H Anion Gap 21 H Aspartate Amino Transf (AST/SGOT) 16 Basophils # 0.0 Basophils % 0.1 Blood Urea Nitrogen 87 H Calcium Level 7.9 L Carbon Dioxide Level 26 Chloride Level 100 Creatinine 3.58 H Direct Bilirubin 0.00 Eosinophils # 0.0 Eosinophils % 0.0 Glucose Level 222 H Hematocrit 34.7 L Hemoglobin 10.5 L Indirect Bilirubin 0.0 Lymphocytes # 0.6 L Lymphocytes % 2.7 L Magnesium Level 2.3 Mean Corpuscular Hemoglobin 24.2 L Mean Corpuscular Hemoglobin Concent 30.3 L Mean Corpuscular Volume 80.1 L Mean Platelet Volume 11.4 H Monocytes # 1.2 H Monocytes % 5.3 Neutrophils # 19.5 H Neutrophils % 89.1 H Nucleated Red Blood Cells # 0.0 Nucleated Red Blood Cells % 0.0 Phosphorus Level 5.4 H Platelet Count 215 Potassium Level 5.3 H Red Blood Count 4.33 L Red Cell Distribution Width 19.9 H Sodium Level 142 Total Bilirubin 0.0 L Total Protein 6.8 White Blood Count 21.9 H Bedside Glucose 241 H 205 Medications Medications Current Medications Ondansetron HCl (Zofran Inj) 4 mg Q6H PRN IV NAUSEA AND/OR VOMITING; Start 11/17 at 11:00 Acetaminophen/ Hydrocodone Bitart ([place] (5/325)) 1 tab Q6H PRN PO MODERATE PAIN LEVEL 4-6; Start 11/17/16 at 11:00 Magnesium Hydroxide (Milk Of Mag) 30 ml DAILY PRN PO CONSTIPATION; Start at 11:00 Sodium Biphosphate/ Sodium Phosphate (Fleet Enema) 133 ml DAILY PRN IN CONSTIPATION; Start 11/17/16 at 11:00 Hydralazine HCl (Apresoline) 10 mg Q6H PRN IV ELEVATED BLOOD PRESSURE; Start at 11:00 Nitroglycerin (Nitroglycerin (Sl Tab) 0.4 Mg) 1 tab Q5M PRN SL ANGINA; Start at 11:00 Acetaminophen (Tylenol Tab) 650 mg Q6H PRN PO PAIN LEVEL 1-5; Start 11/17/16 at 11:00 Allopurinol (Zyloprim) 100 mg DAILY PO Last administered on 11/24/16 09:10; Admin Dose 100 MG; Start 11/18/16 at 09:00 Aspirin (Halfprin) 81 mg DAILY PO Last administered on 11/24/16 09:08; Admin Dose 81 MG; Start 11/18/16 at 09:00 Atorvastatin Calcium (Lipitor) 10 mg QHS PO Last administered on 11/24/16 21: 02; Admin Dose 10 MG; Start 11/17/16 at 21:00 Famotidine (Pepcid) 20 mg Q24H PO Last administered on 11/24/16 21:03; Admin Dose 20 MG; Start 11/17/16 at 21:00 Lactobacillus Acidoph/Bulgaricus (Floranex) 1 tab TID PO Last administered on 21:02; Admin Dose 1 TAB; Start 11/17/16 at 13:00 Lorazepam (Ativan) 0.5 mg Q6 PRN PO ANXIETY Last administered on 11/18/16 11:04 ; Admin Dose 0.5 MG; Start 11/17/16 at 11:00 Metoprolol Tartrate (Lopressor) 12.5 mg BID PO Last administered on 11/24/16 21:02; Admin Dose 12.5 MG; Start 11/17/16 at 21:00 Fish Oil (Fish Oil) 1,000 mg DAILY PO Last administered on 11/24/16 09:07; Admin Dose 1,000 MG; Start 11/18/16 at 09:00 Pregabalin (Lyrica) 50 mg TID PO Last administered on 11/24/16 21:02; Admin Dose 50 MG; Start 11/17/16 at 13:00 Pyridoxine HCl (Vitamin B6) 100 mg DAILY PO Last administered on 11/24/16 09: 10; Admin Dose 100 MG; Start 11/18/16 at 09:00 Simethicone (Mylicon) 80 mg Q6H PRN PO INTESTINAL SPASMS/CRAMPING; Start at 11:00 Vitamin E (Vitamin E) 400 units DAILY PO Last administered on 11/24/16 09:10; Admin Dose 400 UNITS; Start 11/18/16 at 09:00 Zolpidem Tartrate (Ambien) 10 mg QHS PRN PO INSOMNIA; Start 11/17/16 at 11:00 Fluoxetine HCl (Prozac) 20 mg DAILY PO Last administered on 11/24/16 09:09; Admin Dose 20 MG; Start 11/18/16 at 09:00 Al Hydrox/Mg Hydrox/Simethicone (Mag-Al Plus) 10 ml Q6 PRN PO DISTENSION/GAS/ BLOATING; Start 11/17/16 at 11:00 Vancomycin HCl (Vanco Iv Per Pharmacy) PER PHARMACY DOSING NOTE XX ; Start at 11:30 Miscellaneous Information 1 ea NOTE XX ; Start 11/17/16 at 11:30 Glucose (Glutose) 15 gm Q15M PRN PO DECREASED GLUCOSE; Start 11/17/16 at 11:30 Glucose (Glutose) 22.5 gm Q15M PRN PO DECREASED GLUCOSE; Start 11/17/16 at 11:30 Dextrose (D50w Syringe) 25 ml Q15M PRN IV DECREASED GLUCOSE Last administered on 11/20/16 02:28; Admin Dose 25 ML; Start 11/17/16 at 11:30 Dextrose (D50w Syringe) 50 ml Q15M PRN IV DECREASED GLUCOSE; Start 11/17/16 at 11:30 Glucagon (Glucagen) 1 mg Q15M PRN IM DECREASED GLUCOSE Last administered on 11/19 21:43; Admin Dose 1 MG; Start 11/17/16 at 11:30 Glucose (Glutose) 15 gm Q15M PRN BUCCAL DECREASED GLUCOSE; Start 11/17/16 at 11: 30 Guaifenesin (Robitussin Liquid Cup) 200 mg Q4H PRN PO COUGH; Start 11/17/16 at 16:00 Phenol (Cepastat Lozenge) 1 lozenge Q1H PRN MT cough; Start 11/17/16 at 16:00 Bisacodyl (Dulcolax Supp) 10 mg Q24H PRN IN CONSTIPATION; Start 11/17/16 at 16: 30 Cholecalciferol (Vitamin D) 1,000 unit DAILY PO Last administered on 11/24/16 09:10; Admin Dose 1,000 UNIT; Start 11/18/16 at 09:00 Diphenhydramine HCl (Benadryl) 25 mg BID PRN PO ITCHING; Start 11/17/16 at 16:30 Multivitamins Therapeutic (Theragran) 1 tab DAILY PO Last administered on 09:09; Admin Dose 1 TAB; Start 11/18/16 at 09:00 Zinc Sulfate 220 mg 220 mg DAILY PO Last administered on 11/24/16 09:10; Admin Dose 220 MG; Start 11/18/16 at 09:00 Propofol (Diprivan) 100 ml @ 3.96 mls/hr Q12H IV Last administered on 09:52; Admin Dose 23.76 MLS/HR; Start 11/18/16 at 12:30 Ferrous Sulfate (Feosol Liquid Cup) 300 mg BID GTB Last administered on 21:01; Admin Dose 300 MG; Start 11/18/16 at 21:00 Acetaminophen (Tylenol Liquid) 650 mg Q6 PRN NGT PAIN AND OR ELEVATED TEMP Last administered on 11/19/16 18:41; Admin Dose 650 MG; Start 11/19/16 at 03:30 Amikacin Sulfate (Amikacin Iv Per Pharmacy) AMIKACIN PER PHARMACY NOTE XX ; Start 11/20/16 at 11:30 Nystatin/ Triamcinolone Acetonide (Mycolog Oint) 1 applic BID TOP Last administered on 11/24/16 21:03; Admin Dose 1 APPLIC; Start 11/20/16 at 21:00 Docusate Sodium (Colace Liquid Cup) 200 mg BID GTB Last administered on 21:01; Admin Dose 200 MG; Start 11/21/16 at 21:00 Methylprednisolone Sodium Succinate 40 mg 40 mg Q8 IV Last administered on 11/25 05:00; Admin Dose 40 MG; Start 11/21/16 at 16:00 Norepinephrine/ Dextrose (Levophed/D5W) 500 ml @ 0 mls/hr TITRATE IV Last administered on 11/22/16 20:38; Admin Dose 9.37 MLS/HR; Start 11/22/16 at 07:00 Apixaban 5 mg 5 mg BID PO Last administered on 11/24/16 21:02; Admin Dose 5 MG ; Start 11/22/16 at 21:00 Vancomycin HCl/ Sodium Chloride (Vancocin/NS) 250 ml @ 83.333 mls/ hr Q96H IVPB Last administered on 11/22/16 15:43; Admin Dose 83.333 MLS/HR; Start at 15:00 Morphine Sulfate (morphine) 4 mg Q4H PRN IV SEVERE PAIN LEVEL 7-10 Last administered on 11/24/16 00:38; Admin Dose 4 MG; Start 11/23/16 at 15:00 Lorazepam (Ativan) 0.5 mg Q2H PRN IV ANXIETY; Start 11/23/16 at 15:00 Insulin Glargine (Lantus) 25 unit DAILY@08 SC Last administered on 11/25/16 09 :37; Admin Dose 25 UNIT; Start 11/24/16 at 11:00 Insulin Aspart (Novolog Insulin Pen) NOVOLOG *MODERATE* ALGORI... Q4 SC Last administered on 11/25/16 09:37; Admin Dose 6 UNIT; Start 11/24/16 at 13:00 Metronidazole (Flagyl) 500 mg Q8 GTB Last administered on 11/25/16 05:00; Admin Dose 500 MG; Start 11/24/16 at 14:00 Nystatin (Nystatin Susp) 5 ml QID PO Last administered on 11/25/16 09:00; Admin Dose 5 ML; Start 11/24/16 at 13:00 Potassium Chloride (Potassium Chloride Pwd/Soln) 40 meq DAILY NGT ; Start at 09:00; Status Future Hold JARED SALCEDO NP Nov 25, 2016 13:56
[2016-11-25] MEDS: ASPIRIN (EC) 81 MG TAB PO SCH (13:58)
[2016-11-25] MEDS: AMIKACIN 475 MG in SOD CHLORIDE 0.9% 100 ML IVPB SCH (13:58)
[2016-11-25] MEDS: ALLOPURINOL 100 MG TAB PO SCH (13:59)
[2016-11-25] MEDS: FISH OIL 1,000 MG CAP PO SCH (13:59)
[2016-11-25] MEDS: APIXABAN 5 MG TABLET PO SCH ×2 (13:59→20:02)
[2016-11-25] MEDS: CHOLECALCIFEROL 1,000 UNIT TAB PO SCH (13:59)
[2016-11-25] MEDS: PYRIDOXINE 50 MG TAB PO SCH (13:59)
[2016-11-25] MEDS: VITAMIN E 400 UNITS CAP PO SCH (13:59)
[2016-11-25] MEDS: MULTIVITAMINS THERAPEUTIC TAB PO SCH (14:00)
[2016-11-25] MEDS: DOCUSATE SODIUM 10 MG/ML (10ML CUP) GTB SCH ×2 (14:00→20:02)
[2016-11-25] MEDS: NYSTATIN/TRIAMCINOLONE 15 GM OINT TOP SCH ×2 (14:01→20:02)
[2016-11-25] MEDS: ZINC SULFATE 220 MG CAP PO SCH (14:01)
[2016-11-25] MEDS: FLUOXETINE 20 MG CAP PO SCH (14:01)
[2016-11-25] MEDS: FERROUS SULFATE 60 MG/ML 5ML CUP GTB SCH ×2 (14:01→20:02)
--- NOTE | 2016-11-25 14:57 | PN ---
Date/Time of Note Date/Time of Note DATE: 11/25/16 TIME: 14:47 Assessment/Plan VTE Prophylaxis VTE Prophylaxis Intervention: other (eliquis) Lines/Catheters IV Catheter Type (from Nrsg): PERMA CATH Central line still needed: Yes Urinary Cath still in place: Yes Reason Cath still needed: other (indicate) Assessment/Plan Assessment/Plan A 61-year-old male with a history of type 2 diabetes, peripheral vascular disease, prior respiratory insufficiency, end-stage renal disease, on dialysis, who presents with a cough for 1 week and SOB managed as follows: 1. Recurrent Hypoxemic / Hypercapnic resp failure / Vent dependent / 2/2 severe PNA 2. CHF exacerbation diastolic 3. Sepsis with Extensive Multifocal Pneumonia Michelle / cannot r/o bacterial component 4. ESRD on HD 5. Morbid obesity / cannot r/o OHS 6. COPD with chronic lung disease and History of multiple previous respiratory failure and tracheostomy in the past. 7. HTN > hypotensive 2/2 sepsis 8. Paroxysmal Afib currently in sinus 9. DM2 with steroid induced hyperglycemia 10. Pancytopenia with microcytosis: mild iron deficiency noted 11. Moderate tricuspid regurgitation with Pulmonary hypertension 12. Pulmonary lymphadenopathy: reactive versus neoplastic 13. Chronic depression 14. Blake LE cellulitis with Chronic foot ulcer and hx of osteomyelitis: improving 15. Hx of PVD / Gout PLAN: * Worsening Leucocytosis and hyperglycemia noted, likely steroid induced * CXR remains unchanged / Titrate Lantus dosing/ continue moderate SSI * Repeat albert Cultures and abx per ID * Continue Vent support and mgt/ patient now requiring 70-75%o2 / will likely require trach a 2nd time * Continue daily dialysis as tolerated * PRN pressor support / eliquis for Afib * Will d/c all non essential meds / avoid fentanyl except neccesary and Continue propofol and use PRN ativan and morphine * Continue aggressive abx regimen * Continue scheduled bronchodilator therapy * Continue iron replacement therapy * Defer to pulm for mgt of lymphadenopathy / possibly repeat CT once pneumonia is improved. PROPHYLAXIS: Eliquis / PPI CRITICAL CARE TIME: >35 mins Subjective 24 Hr Interval Summary Free Text/Dictation Patient seen and examined. Intubated and sedated for comfort getting dialysis today Nursing reports no acute overnight events. O2 requirements down to 70% Exam/Review of Systems Vital Signs Vitals Vital Signs Date Time Temp Pulse Resp B/P Pulse Ox O2 Delivery O2 Flow Rate FiO2 11/25/16 12:00 75 11/25/16 11:30 20 11/25/16 09:22 92 75 11/25/16 09:00 120/70 Mechanical Ventilator 11/25/16 08:00 98.8 Intake and Output 11/24/16 11/24/16 11/25/16 15:00 23:00 07:00 Intake Total 380 ml 556.90 ml 715.04 ml Output Total 80 ml 45 ml 15 ml Balance 300 ml 511.90 ml 700.04 ml Exam Constitutional: obese, oriented, No alert Psych: other (unable to assess) Head: normocephalic Eyes: PERRL ENMT: intubated Respiratory: diminished breath sounds, No wheezing Cardiovascular: regular rate and rhythm, No murmurs/extra sounds Gastrointestinal: bowel sounds, other (protuberant), soft Musculoskeletal: No nl extremities to inspection Extremities: edema 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: lethargic Skin: other (erythematous skin in both lower extremities with improving diffuse non pitting edema up to knees bilaterally and chronic keratotic skin changes and toe ulcer) Results Result Diagram: 11/25/1630 11/25/16 0530 Results 24 hrs Laboratory Tests Test 11/24/16 17:09 11/24/16 21:06 11/25/16 01:07 11/25/16 04:56 Bedside Glucose 215 216 238 H 193 Test 11/25/16 05:30 11/25/16 09:00 11/25/16 13:31 Alanine Aminotransferase (ALT/SGPT) 23 Albumin 3.0 L Alkaline Phosphatase 124 H Anion Gap 21 H Aspartate Amino Transf (AST/SGOT) 16 Basophils # 0.0 Basophils % 0.1 Blood Urea Nitrogen 87 H Calcium Level 7.9 L Carbon Dioxide Level 26 Chloride Level 100 Creatinine 3.58 H Direct Bilirubin 0.00 Eosinophils # 0.0 Eosinophils % 0.0 Glucose Level 222 H Hematocrit 34.7 L Hemoglobin 10.5 L Indirect Bilirubin 0.0 Lymphocytes # 0.6 L Lymphocytes % 2.7 L Magnesium Level 2.3 Mean Corpuscular Hemoglobin 24.2 L Mean Corpuscular Hemoglobin Concent 30.3 L Mean Corpuscular Volume 80.1 L Mean Platelet Volume 11.4 H Monocytes # 1.2 H Monocytes % 5.3 Neutrophils # 19.5 H Neutrophils % 89.1 H Nucleated Red Blood Cells # 0.0 Nucleated Red Blood Cells % 0.0 Phosphorus Level 5.4 H Platelet Count 215 Potassium Level 5.3 H Red Blood Count 4.33 L Red Cell Distribution Width 19.9 H Sodium Level 142 Total Bilirubin 0.0 L Total Protein 6.8 White Blood Count 21.9 H Bedside Glucose 241 H 205 Medications Medications Current Medications Ondansetron HCl (Zofran Inj) 4 mg Q6H PRN IV NAUSEA AND/OR VOMITING; Start 11/17 at 11:00 Acetaminophen/ Hydrocodone Bitart ([place] (5/325)) 1 tab Q6H PRN PO MODERATE PAIN LEVEL 4-6; Start 11/17/16 at 11:00 Magnesium Hydroxide (Milk Of Mag) 30 ml DAILY PRN PO CONSTIPATION; Start at 11:00 Sodium Biphosphate/ Sodium Phosphate (Fleet Enema) 133 ml DAILY PRN SD CONSTIPATION; Start 11/17/16 at 11:00 Hydralazine HCl (Apresoline) 10 mg Q6H PRN IV ELEVATED BLOOD PRESSURE; Start at 11:00 Nitroglycerin (Nitroglycerin (Sl Tab) 0.4 Mg) 1 tab Q5M PRN SL ANGINA; Start at 11:00 Acetaminophen (Tylenol Tab) 650 mg Q6H PRN PO PAIN LEVEL 1-5; Start 11/17/16 at 11:00 Allopurinol (Zyloprim) 100 mg DAILY PO Last administered on 11/25/16 13:59; Admin Dose 100 MG; Start 11/18/16 at 09:00 Aspirin (Halfprin) 81 mg DAILY PO Last administered on 11/25/16 13:58; Admin Dose 81 MG; Start 11/18/16 at 09:00 Atorvastatin Calcium (Lipitor) 10 mg QHS PO Last administered on 11/24/16 21: 02; Admin Dose 10 MG; Start 11/17/16 at 21:00 Famotidine (Pepcid) 20 mg Q24H PO Last administered on 11/24/16 21:03; Admin Dose 20 MG; Start 11/17/16 at 21:00 Lactobacillus Acidoph/Bulgaricus (Floranex) 1 tab TID PO Last administered on 13:58; Admin Dose 1 TAB; Start 11/17/16 at 13:00 Lorazepam (Ativan) 0.5 mg Q6 PRN PO ANXIETY Last administered on 11/18/16 11:04 ; Admin Dose 0.5 MG; Start 11/17/16 at 11:00 Metoprolol Tartrate (Lopressor) 12.5 mg BID PO Last administered on 11/24/16 21:02; Admin Dose 12.5 MG; Start 11/17/16 at 21:00 Fish Oil (Fish Oil) 1,000 mg DAILY PO Last administered on 11/25/16 13:59; Admin Dose 1,000 MG; Start 11/18/16 at 09:00 Pregabalin (Lyrica) 50 mg TID PO Last administered on 11/25/16 14:01; Admin Dose 50 MG; Start 11/17/16 at 13:00 Pyridoxine HCl (Vitamin B6) 100 mg DAILY PO Last administered on 11/25/16 13: 59; Admin Dose 100 MG; Start 11/18/16 at 09:00 Simethicone (Mylicon) 80 mg Q6H PRN PO INTESTINAL SPASMS/CRAMPING; Start at 11:00 Vitamin E (Vitamin E) 400 units DAILY PO Last administered on 11/25/16 13:59; Admin Dose 400 UNITS; Start 11/18/16 at 09:00 Zolpidem Tartrate (Ambien) 10 mg QHS PRN PO INSOMNIA; Start 11/17/16 at 11:00 Fluoxetine HCl (Prozac) 20 mg DAILY PO Last administered on 11/25/16 14:01; Admin Dose 20 MG; Start 11/18/16 at 09:00 Al Hydrox/Mg Hydrox/Simethicone (Mag-Al Plus) 10 ml Q6 PRN PO DISTENSION/GAS/ BLOATING; Start 11/17/16 at 11:00 Vancomycin HCl (Vanco Iv Per Pharmacy) PER PHARMACY DOSING NOTE XX ; Start at 11:30 Miscellaneous Information 1 ea NOTE XX ; Start 11/17/16 at 11:30 Glucose (Glutose) 15 gm Q15M PRN PO DECREASED GLUCOSE; Start 11/17/16 at 11:30 Glucose (Glutose) 22.5 gm Q15M PRN PO DECREASED GLUCOSE; Start 11/17/16 at 11:30 Dextrose (D50w Syringe) 25 ml Q15M PRN IV DECREASED GLUCOSE Last administered on 11/20/16 02:28; Admin Dose 25 ML; Start 11/17/16 at 11:30 Dextrose (D50w Syringe) 50 ml Q15M PRN IV DECREASED GLUCOSE; Start 11/17/16 at 11:30 Glucagon (Glucagen) 1 mg Q15M PRN IM DECREASED GLUCOSE Last administered on 11/19 21:43; Admin Dose 1 MG; Start 11/17/16 at 11:30 Glucose (Glutose) 15 gm Q15M PRN BUCCAL DECREASED GLUCOSE; Start 11/17/16 at 11: 30 Guaifenesin (Robitussin Liquid Cup) 200 mg Q4H PRN PO COUGH; Start 11/17/16 at 16:00 Phenol (Cepastat Lozenge) 1 lozenge Q1H PRN MT cough; Start 11/17/16 at 16:00 Bisacodyl (Dulcolax Supp) 10 mg Q24H PRN SD CONSTIPATION; Start 11/17/16 at 16: 30 Cholecalciferol (Vitamin D) 1,000 unit DAILY PO Last administered on 11/25/16 13:59; Admin Dose 1,000 UNIT; Start 11/18/16 at 09:00 Diphenhydramine HCl (Benadryl) 25 mg BID PRN PO ITCHING; Start 11/17/16 at 16:30 Multivitamins Therapeutic (Theragran) 1 tab DAILY PO Last administered on 14:00; Admin Dose 1 TAB; Start 11/18/16 at 09:00 Zinc Sulfate 220 mg 220 mg DAILY PO Last administered on 11/25/16 14:01; Admin Dose 220 MG; Start 11/18/16 at 09:00 Propofol (Diprivan) 100 ml @ 3.96 mls/hr Q12H IV Last administered on 09:52; Admin Dose 23.76 MLS/HR; Start 11/18/16 at 12:30 Ferrous Sulfate (Feosol Liquid Cup) 300 mg BID GTB Last administered on 14:01; Admin Dose 300 MG; Start 11/18/16 at 21:00 Acetaminophen (Tylenol Liquid) 650 mg Q6 PRN NGT PAIN AND OR ELEVATED TEMP Last administered on 11/19/16 18:41; Admin Dose 650 MG; Start 11/19/16 at 03:30 Amikacin Sulfate (Amikacin Iv Per Pharmacy) AMIKACIN PER PHARMACY NOTE XX ; Start 11/20/16 at 11:30 Nystatin/ Triamcinolone Acetonide (Mycolog Oint) 1 applic BID TOP Last administered on 11/25/16 14:01; Admin Dose 1 APPLIC; Start 11/20/16 at 21:00 Docusate Sodium (Colace Liquid Cup) 200 mg BID GTB Last administered on 14:00; Admin Dose 200 MG; Start 11/21/16 at 21:00 Methylprednisolone Sodium Succinate 40 mg 40 mg Q8 IV Last administered on 11/25 13:58; Admin Dose 40 MG; Start 11/21/16 at 16:00 Norepinephrine/ Dextrose (Levophed/D5W) 500 ml @ 0 mls/hr TITRATE IV Last administered on 11/22/16 20:38; Admin Dose 9.37 MLS/HR; Start 11/22/16 at 07:00 Apixaban 5 mg 5 mg BID PO Last administered on 11/25/16 13:59; Admin Dose 5 MG ; Start 11/22/16 at 21:00 Vancomycin HCl/ Sodium Chloride (Vancocin/NS) 250 ml @ 83.333 mls/ hr Q96H IVPB Last administered on 11/22/16 15:43; Admin Dose 83.333 MLS/HR; Start at 15:00 Morphine Sulfate (morphine) 4 mg Q4H PRN IV SEVERE PAIN LEVEL 7-10 Last administered on 11/24/16 00:38; Admin Dose 4 MG; Start 11/23/16 at 15:00 Lorazepam (Ativan) 0.5 mg Q2H PRN IV ANXIETY; Start 11/23/16 at 15:00 Insulin Glargine (Lantus) 25 unit DAILY@08 SC Last administered on 11/25/16 09 :37; Admin Dose 25 UNIT; Start 11/24/16 at 11:00 Insulin Aspart (Novolog Insulin Pen) NOVOLOG *MODERATE* ALGORI... Q4 SC Last administered on 11/25/16 14:03; Admin Dose 4 UNIT; Start 11/24/16 at 13:00 Metronidazole (Flagyl) 500 mg Q8 GTB Last administered on 11/25/16 14:02; Admin Dose 500 MG; Start 11/24/16 at 14:00 Nystatin (Nystatin Susp) 5 ml QID PO Last administered on 11/25/16 14:01; Admin Dose 5 ML; Start 11/24/16 at 13:00 Potassium Chloride (Potassium Chloride Pwd/Soln) 40 meq DAILY NGT ; Start at 09:00; Status Future Hold Procedures Procedures PROCEDURE: XR Chest. CLINICAL INDICATION: Shortness of breath. TECHNIQUE: Single frontal view. COMPARISON: 11/23/2016. FINDINGS: The endotracheal tube, nasogastric tube, left internal jugular vein catheter, and right internal jugular vein tunneled hemodialysis catheter remain in satisfactory position. Pulmonary edema is unchanged. The heart is enlarged. There is a small right pleural effusion. There is no pneumothorax. IMPRESSION: 1. No change from 11/23/2016. RPTAT: QQ .Aldo Ramirez MD, MD Date Time Electronically viewed and signed by .Aldo Ramirez MD, MD on 11/24/2016 08:57 .R/ CC: EDNA BUSTILLO MD, [facility] GERI LINDO Nov 25, 2016 14:57
[2016-11-25] MEDS: IPRATROPIUM (HFA) 12.9 GM INHALER INH PRN (17:12)
[2016-11-25] MEDS: ATORVASTATIN 10 MG TAB PO SCH (20:02)
[2016-11-25] MEDS: FAMOTIDINE 20 MG TAB PO SCH (20:03)
--- NOTE | 2016-11-25 22:50 | CONS ---
Date/Time of Note Date/Time of Note DATE: 11/25/16 TIME: 22:47 Assessment/Plan Assessment/Plan Additional Assessment/Plan sTART PT ON MUITRIRION Cont'd Hospitalization Reason: CONTINE hd FOR uf Consultation Date/Type/Reason Admit Date/Time Nov 17, 2016 at 12:10 Initial Consult Date 11/17/16 Type of Consultation: RENAL Referring Provider: FELIX SCOTT 24 HR Interval Summary Free Text/Dictation pT IS VENT DEPENDANT, NO RESPONSE WHATSOEVER Exam/Review of Systems Vital Signs Vitals Vital Signs Date Time Temp Pulse Resp B/P Pulse Ox O2 Delivery O2 Flow Rate FiO2 11/25/16 22:15 92 28 102/58 95 11/25/16 22:00 Mechanical Ventilator 11/25/16 20:00 99.7 11/25/16 19:58 75 Intake and Output 11/24/16 11/24/16 11/25/16 15:00 23:00 07:00 Intake Total 380 ml 556.90 ml 715.04 ml Output Total 80 ml 45 ml 15 ml Balance 300 ml 511.90 ml 700.04 ml Exam Constitutional: alert Musculoskeletal: other (DEFORMITIES BOTH LOWER & UPPER LEGS) Results Result Diagram: 11/25/16 0530 11/25/16 0530 Results 24 hrs Laboratory Tests Test 11/25/16 01:07 11/25/16 04:56 11/25/16 05:30 11/25/16 09:00 Bedside Glucose 238 H 193 241 H Alanine Aminotransferase (ALT/SGPT) 23 Albumin 3.0 L Alkaline Phosphatase 124 H Anion Gap 21 H Aspartate Amino Transf (AST/SGOT) 16 Basophils # 0.0 Basophils % 0.1 Blood Urea Nitrogen 87 H Calcium Level 7.9 L Carbon Dioxide Level 26 Chloride Level 100 Creatinine 3.58 H Direct Bilirubin 0.00 Eosinophils # 0.0 Eosinophils % 0.0 Glucose Level 222 H Hematocrit 34.7 L Hemoglobin 10.5 L Indirect Bilirubin 0.0 Lymphocytes # 0.6 L Lymphocytes % 2.7 L Magnesium Level 2.3 Mean Corpuscular Hemoglobin 24.2 L Mean Corpuscular Hemoglobin Concent 30.3 L Mean Corpuscular Volume 80.1 L Mean Platelet Volume 11.4 H Monocytes # 1.2 H Monocytes % 5.3 Neutrophils # 19.5 H Neutrophils % 89.1 H Nucleated Red Blood Cells # 0.0 Nucleated Red Blood Cells % 0.0 Phosphorus Level 5.4 H Platelet Count 215 Potassium Level 5.3 H Red Blood Count 4.33 L Red Cell Distribution Width 19.9 H Sodium Level 142 Total Bilirubin 0.0 L Total Protein 6.8 White Blood Count 21.9 H Test 11/25/16 13:31 11/25/16 17:16 11/25/16 20:12 Bedside Glucose 205 218 215 Medications Medications Current Medications Ondansetron HCl (Zofran Inj) 4 mg Q6H PRN IV NAUSEA AND/OR VOMITING; Start 11/17 at 11:00 Acetaminophen/ Hydrocodone Bitart ([place] (5/325)) 1 tab Q6H PRN PO MODERATE PAIN LEVEL 4-6; Start 11/17/16 at 11:00 Magnesium Hydroxide (Milk Of Mag) 30 ml DAILY PRN PO CONSTIPATION; Start at 11:00 Sodium Biphosphate/ Sodium Phosphate (Fleet Enema) 133 ml DAILY PRN MA CONSTIPATION; Start 11/17/16 at 11:00 Hydralazine HCl (Apresoline) 10 mg Q6H PRN IV ELEVATED BLOOD PRESSURE; Start at 11:00 Nitroglycerin (Nitroglycerin (Sl Tab) 0.4 Mg) 1 tab Q5M PRN SL ANGINA; Start at 11:00 Acetaminophen (Tylenol Tab) 650 mg Q6H PRN PO PAIN LEVEL 1-5; Start 11/17/16 at 11:00 Allopurinol (Zyloprim) 100 mg DAILY PO Last administered on 11/25/16 13:59; Admin Dose 100 MG; Start 11/18/16 at 09:00 Aspirin (Halfprin) 81 mg DAILY PO Last administered on 11/25/16 13:58; Admin Dose 81 MG; Start 11/18/16 at 09:00 Atorvastatin Calcium (Lipitor) 10 mg QHS PO Last administered on 11/25/16 20: 02; Admin Dose 10 MG; Start 11/17/16 at 21:00 Famotidine (Pepcid) 20 mg Q24H PO Last administered on 11/25/16 20:03; Admin Dose 20 MG; Start 11/17/16 at 21:00 Lactobacillus Acidoph/Bulgaricus (Floranex) 1 tab TID PO Last administered on 20:02; Admin Dose 1 TAB; Start 11/17/16 at 13:00 Lorazepam (Ativan) 0.5 mg Q6 PRN PO ANXIETY Last administered on 11/18/16 11:04 ; Admin Dose 0.5 MG; Start 11/17/16 at 11:00 Metoprolol Tartrate (Lopressor) 12.5 mg BID PO Last administered on 11/24/16 21:02; Admin Dose 12.5 MG; Start 11/17/16 at 21:00 Fish Oil (Fish Oil) 1,000 mg DAILY PO Last administered on 11/25/16 13:59; Admin Dose 1,000 MG; Start 11/18/16 at 09:00 Pyridoxine HCl (Vitamin B6) 100 mg DAILY PO Last administered on 11/25/16 13: 59; Admin Dose 100 MG; Start 11/18/16 at 09:00 Simethicone (Mylicon) 80 mg Q6H PRN PO INTESTINAL SPASMS/CRAMPING; Start at 11:00 Vitamin E (Vitamin E) 400 units DAILY PO Last administered on 11/25/16 13:59; Admin Dose 400 UNITS; Start 11/18/16 at 09:00 Zolpidem Tartrate (Ambien) 10 mg QHS PRN PO INSOMNIA; Start 11/17/16 at 11:00 Al Hydrox/Mg Hydrox/Simethicone (Mag-Al Plus) 10 ml Q6 PRN PO DISTENSION/GAS/ BLOATING; Start 11/17/16 at 11:00 Vancomycin HCl (Vanco Iv Per Pharmacy) PER PHARMACY DOSING NOTE XX ; Start at 11:30 Miscellaneous Information 1 ea NOTE XX ; Start 11/17/16 at 11:30 Glucose (Glutose) 15 gm Q15M PRN PO DECREASED GLUCOSE; Start 11/17/16 at 11:30 Glucose (Glutose) 22.5 gm Q15M PRN PO DECREASED GLUCOSE; Start 11/17/16 at 11:30 Dextrose (D50w Syringe) 25 ml Q15M PRN IV DECREASED GLUCOSE Last administered on 11/20/16 02:28; Admin Dose 25 ML; Start 11/17/16 at 11:30 Dextrose (D50w Syringe) 50 ml Q15M PRN IV DECREASED GLUCOSE; Start 11/17/16 at 11:30 Glucagon (Glucagen) 1 mg Q15M PRN IM DECREASED GLUCOSE Last administered on 11/19 21:43; Admin Dose 1 MG; Start 11/17/16 at 11:30 Glucose (Glutose) 15 gm Q15M PRN BUCCAL DECREASED GLUCOSE; Start 11/17/16 at 11: 30 Guaifenesin (Robitussin Liquid Cup) 200 mg Q4H PRN PO COUGH; Start 11/17/16 at 16:00 Phenol (Cepastat Lozenge) 1 lozenge Q1H PRN MT cough; Start 11/17/16 at 16:00 Bisacodyl (Dulcolax Supp) 10 mg Q24H PRN MA CONSTIPATION; Start 11/17/16 at 16: 30 Cholecalciferol (Vitamin D) 1,000 unit DAILY PO Last administered on 11/25/16 13:59; Admin Dose 1,000 UNIT; Start 11/18/16 at 09:00 Diphenhydramine HCl (Benadryl) 25 mg BID PRN PO ITCHING; Start 11/17/16 at 16:30 Multivitamins Therapeutic (Theragran) 1 tab DAILY PO Last administered on 14:00; Admin Dose 1 TAB; Start 11/18/16 at 09:00 Zinc Sulfate 220 mg 220 mg DAILY PO Last administered on 11/25/16 14:01; Admin Dose 220 MG; Start 11/18/16 at 09:00 Propofol (Diprivan) 100 ml @ 3.96 mls/hr Q12H IV Last administered on 19:31; Admin Dose 19.8 MLS/HR; Start 11/18/16 at 12:30 Ferrous Sulfate (Feosol Liquid Cup) 300 mg BID GTB Last administered on 20:02; Admin Dose 300 MG; Start 11/18/16 at 21:00 Acetaminophen (Tylenol Liquid) 650 mg Q6 PRN NGT PAIN AND OR ELEVATED TEMP Last administered on 11/19/16 18:41; Admin Dose 650 MG; Start 11/19/16 at 03:30 Amikacin Sulfate (Amikacin Iv Per Pharmacy) AMIKACIN PER PHARMACY NOTE XX ; Start 11/20/16 at 11:30 Nystatin/ Triamcinolone Acetonide (Mycolog Oint) 1 applic BID TOP Last administered on 11/25/16 20:02; Admin Dose 1 APPLIC; Start 11/20/16 at 21:00 Docusate Sodium (Colace Liquid Cup) 200 mg BID GTB Last administered on 20:02; Admin Dose 200 MG; Start 11/21/16 at 21:00 Methylprednisolone Sodium Succinate 40 mg 40 mg Q8 IV Last administered on 11/25 21:06; Admin Dose 40 MG; Start 11/21/16 at 16:00 Norepinephrine/ Dextrose (Levophed/D5W) 500 ml @ 0 mls/hr TITRATE IV Last administered on 11/22/16 20:38; Admin Dose 9.37 MLS/HR; Start 11/22/16 at 07:00 Apixaban 5 mg 5 mg BID PO Last administered on 11/25/16 20:02; Admin Dose 5 MG ; Start 11/22/16 at 21:00 Vancomycin HCl/ Sodium Chloride (Vancocin/NS) 250 ml @ 83.333 mls/ hr Q96H IVPB Last administered on 11/22/16 15:43; Admin Dose 83.333 MLS/HR; Start at 15:00 Morphine Sulfate (morphine) 4 mg Q4H PRN IV SEVERE PAIN LEVEL 7-10 Last administered on 11/24/16 00:38; Admin Dose 4 MG; Start 11/23/16 at 15:00 Lorazepam (Ativan) 0.5 mg Q2H PRN IV ANXIETY; Start 11/23/16 at 15:00 Insulin Glargine (Lantus) 25 unit DAILY@08 SC Last administered on 11/25/16 09 :37; Admin Dose 25 UNIT; Start 11/24/16 at 11:00 Insulin Aspart (Novolog Insulin Pen) NOVOLOG *MODERATE* ALGORI... Q4 SC Last administered on 11/25/16 20:15; Admin Dose 4 UNIT; Start 11/24/16 at 13:00 Metronidazole (Flagyl) 500 mg Q8 GTB Last administered on 11/25/16 21:07; Admin Dose 500 MG; Start 11/24/16 at 14:00 Nystatin (Nystatin Susp) 5 ml QID PO Last administered on 11/25/16t 20:02; Admin Dose 5 ML; Start 11/24/16 at 13:00 Potassium Chloride (Potassium Chloride Pwd/Soln) 40 meq DAILY NGT ; Start at 09:00; Status Future Hold ALONSO MARTINEZ MD Nov 25, 2016 22:50
[2016-11-26] VITALS (103 sets, daily range): BP systolic 77–116; BP diastolic 49–70; PULSE 59–96; RESP 5–31
[2016-11-26] MEDS: PROPOFOL 100 ML IV SCH ×5 (01:12→22:17)
[2016-11-26] MEDS: ALBUTEROL HFA 8 GM INHALER INH SCH ×6 (01:28→21:24)
[2016-11-26] MEDS: IPRATROPIUM (HFA) 12.9 GM INHALER INH PRN ×5 (01:28→21:25)
[2016-11-26] MEDS: INSULIN ASPART [NOVOLOG] 3 ML PEN SC SCH ×6 (01:51→20:05)
[2016-11-26 04:42] LABS: ADD SCAN DIFF NO
[2016-11-26 04:53] LABS: ABNORMAL IP MESSAGE 1; BASOPHILS % 0.1 % (0.0-2.0); LYMPHOCYTES # 0.4 10^3/ul (0.8-2.9); MEAN CORPUSCULAR HEMOGLOBIN 24.1 pg (29.0-33.0); MEAN CORPUSCULAR HGB CONC 30.3 g/dl (32.0-37.0); MEAN CORPUSCULAR VOLUME 79.5 fl (82.0-101.0); MEAN PLATELET VOLUME 10.6 fl (7.4-10.4); MONOCYTE # 1.3 10^3/ul (0.3-0.9); MONOCYTES % 5.9 % (0.0-11.0); NEUTROPHIL # 19.5 10^3/ul (1.6-7.5); NEUTROPHILS % 89.9 % (39.0-77.0); PLATELET COUNT 177 10^3/UL (140-415); RED BLOOD COUNT 4.15 10^6/ul (4.70-6.10); RED CELL DISTRIBUTION WIDTH 19.8 % (11.5-14.5); WHITE BLOOD COUNT 21.7 10^3/ul (4.8-10.8)
[2016-11-26] MEDS: metroNIDAZOLE 500 MG TAB GTB SCH ×3 (05:06→22:17)
[2016-11-26] MEDS: METHYLPREDNISOLONE 40 MG INJ IV SCH ×3 (05:06→22:17)
[2016-11-26 05:09] LABS: ALBUMIN 2.7 g/dl (3.3-4.9)
[2016-11-26 05:10] LABS: POTASSIUM 4.8 mmol/L (3.5-5.1)
[2016-11-26 05:12] LABS: CREATININE 3.05 mg/dl (0.61-1.24)
[2016-11-26 05:13] LABS: CALCIUM 7.9 mg/dl (8.4-10.2); PHOSPHORUS 5.1 mg/dl (2.5-4.9)
--- NOTE | 2016-11-26 07:31 | PN ---
DATE: 11/25/2016 CARDIOLOGY FOLLOWUP SUBJECTIVE: Discussed with the staff. was reviewed. The patient atrial fibrillation. Heart rate remained stable. He intubated on the vent, currently down to 75% oxygen. The pat ient is still a little hypotensive and requires a Levophed drip. The patient nonverbal, sedated on the vent. MEDICATIONS: Reviewed, as per medical reconciliation; personally reviewed. PHYSICAL EXAMINATION VITAL SIGNS: Temperature 98, heart rate of 76, blood pressure of 109/65, respiratory rate of 27. HEAD, EARS, EYES, NOSE, AND THROAT: Normocephalic, atraumatic. GENERAL: Obese gentleman. Status post intubation on the vent. CARDIOVASCULAR: . Systolic murmur. PULMONARY: Diffuse rhonchi throughout the lungs. GASTROINTESTINAL: Soft, nontender. EXTREMITIES: With diffuse lower extremity edema. DERMATOLOGIC: Multiple ulcerations on the foot. NEUROLOGICAL: He is sedated. ____: O2 saturation is about 90% to 93%. LABORATORY: WBC of 21.9, hemoglobin of 10.5, platelets of 215. Sodium 142, potassium 5.3, BUN of 8 7, creatinine 3.58, glucose of 222. ASSESSMENT AND PLAN 1. Hypoxemic respiratory failure. 2. Pneumonia. 3. Septic shock, secondary to above. 4. Congestive heart failure and fluid overload, secondary to renal failure, fluid overload, diastol ic dysfunction. 5. History of chronic respiratory failure, status post previous tracheostomy. 6. History of hypertension, currently hypotensive in shock. 7. Diabetes. 8. Morbid obesity. RECOMMENDATIONS: Antibiotic will be continued and managed as per ID's recommendation. Vent support will be continued. Heart rate currently under good control. Anticoagulation with Eliquis will be continued as long as he can take and tolerate it and no bleeding reported. Levophed will continue a s needed for now. Consider more aggressive hemodialysis and fluid removal, given his severe hypoxem ia. Respiratory care will be continued. Continue with the ICU care. More than 38 minutes of critical care time was spent in management of this patient, excluding any pr ocedures. Dictated By: GARDENIA RAZO/GREGORY Conf#: [id number] DID#: [id number] CC: GERI LINDO MD;*End*
[2016-11-26] MEDS: DOCUSATE SODIUM 10 MG/ML (10ML CUP) GTB SCH ×2 (08:50→20:03)
[2016-11-26] MEDS: FISH OIL 1,000 MG CAP PO SCH (08:50)
[2016-11-26] MEDS: NYSTATIN SUSP 5 ML CUP PO SCH ×4 (08:50→20:03)
[2016-11-26] MEDS: FERROUS SULFATE 60 MG/ML 5ML CUP GTB SCH ×2 (08:50→20:03)
[2016-11-26] MEDS: ASPIRIN (EC) 81 MG TAB PO SCH (08:50)
[2016-11-26] MEDS: CHOLECALCIFEROL 1,000 UNIT TAB PO SCH (08:50)
[2016-11-26] MEDS: LACTOBACILLUS CHEW TAB PO SCH ×3 (08:50→20:03)
[2016-11-26] MEDS: ZINC SULFATE 220 MG CAP PO SCH (08:51)
[2016-11-26] MEDS: METOPROLOL 25 MG TAB PO SCH (08:51)
[2016-11-26] MEDS: VITAMIN E 400 UNITS CAP PO SCH (08:51)
[2016-11-26] MEDS: ALLOPURINOL 100 MG TAB PO SCH (08:51)
[2016-11-26] MEDS: SEVELAMER CARBONATE 0.8 GM PKT PO SCH ×3 (08:51→17:40)
[2016-11-26] MEDS: MULTIVITAMINS THERAPEUTIC TAB PO SCH (08:51)
[2016-11-26] MEDS: PYRIDOXINE 50 MG TAB PO SCH (08:51)
[2016-11-26] MEDS: NYSTATIN/TRIAMCINOLONE 15 GM OINT TOP SCH ×2 (08:52→20:06)
[2016-11-26] MEDS: APIXABAN 5 MG TABLET PO SCH ×2 (08:52→20:03)
[2016-11-26] MEDS: INSULIN GLARGINE [LANtus] 3 ML PEN SC SCH (08:53)
--- NOTE | 2016-11-26 09:45 | RADRPT ---
PROCEDURE: XR Chest AP portable CLINICAL INDICATION: CHF TECHNIQUE: An AP portable radiograph of the chest was submitted. COMPARISON: 11/24/2016 FINDINGS: Support Hardware: The endotracheal tube, the NG tube, and the right jugular dialysis catheter are st able in positioning. Cardiovascular: The heart remains mildly enlarged. The pulmonary vasculature is obscured by the inf iltrates. Lung Brower: Infiltrates are again seen diffusely through both lung brower slightly worsened on the left and slightly improved in the right lower lung zone. Pleural Spaces: The right costophrenic angle is now obscured such that a small pleural fluid accumul ation cannot be excluded. No pneumothorax is evident. Osseous Structures: Moderate degenerative spine changes are noted. Soft Tissues: The soft tissues appear unremarkable. IMPRESSION: 1. The tubes and lines are stable in positioning. 2. Persistent cardiomegaly. 3. The pulmonary vasculature is again obscured by bilateral pulmonary infiltrates which are slightl y worsened on the left and slightly improved on the right. 4. Blunting of the right costophrenic angle which development of a small pleural fluid accumulation cannot be excluded. Physician Madhu Date Time Electronically viewed and signed by Physician Madhu on 11/26/2016 09:44 /
--- NOTE | 2016-11-26 11:05 | PN ---
DATE: 11/26/2016 REASON FOR FOLLOWUP: Respiratory failure. SUBJECTIVE: The patient remains intubated on mechanical ventilation, opens eyes, follows simple com mands. Continues 75% FIO2. HEENT: Orally intubated. Moist mucous membranes. CARDIAC: S1, S2, no added sounds or murmurs. CHEST: Diminished air entry bilaterally. ABDOMEN: Soft, nontender. No guarding or rebound. EXTREMITIES: No cyanosis, clubbing, 2+ edema. NEUROLOGIC: Generalized weakness. LABORATORY DATA: White count 21, hemoglobin 10, platelets of 177. 77, creatinine 3.05. Arterial bl ood gas PaO2 was 58 on 65% FIO2. IMAGING: Chest x-ray was reviewed, shows ongoing pulmonary edema, slightly worse right greater than left. IMPRESSION AND PLAN: 1. Hypoxemic respiratory failure, likely secondary to acute lung injury and pulmonary edema. 2. End-stage renal failure on hemodialysis. 3. Status post septic shock. 4. History of diabetes mellitus. 5. History of morbid obesity. PLAN: 1. Continue mechanical ventilation. 2. Decrease FIO2 as tolerated. 3. Continue steroids. 4. Deep vein thrombosis and GI prophylaxis. 5. Palliative care consult. This patient may require tracheostomy as he is unable to come off mecha nical ventilation. Dictated By: EDNA COLINDRES/GREGORY Conf#: [id number] DID#: [id number]
--- NOTE | 2016-11-26 11:16 | PN ---
DATE: 11/26/2016 SUBJECTIVE: No acute events. The patient is on low dose of Levophed drip, lying comfortably in bed . VITAL SIGNS: T-max 99.6, T-current 98.9, pulse 71, respirations 25, blood pressure 89/59, saturatio n 98 on FIO2 of 75. LABORATORY: WBC 21.7, H and H 10 and 33, platelets 177, neutrophils 89.9. INDWELLINGS: Endotracheal tube, NG tube, left IJ triple lumen catheter, right subclavian PermCath. ANTIMICROBIALS: The patient is on: 1. Flagyl. 2. Vancomycin. 3. Amikacin. DIAGNOSTICS: Chest x-ray this morning revealed persistent cardiomegaly, pulmonary infiltrates sligh tly worsened. PHYSICAL EXAMINATION: GENERAL: This is a chronically ill-appearing, middle-aged man who is lying comfortably in bed. HEENT: Head atraumatic, normocephalic. Sclerae anicteric. Buccal mucosa dry. NECK: Supple, trachea midline. CHEST: Rise symmetrical. Breath sounds diminished at the bases. HEART: S1, S2. ABDOMEN: Soft. Bowel tones present. EXTREMITIES: Without cyanosis. Bilateral lower extremities chronic venous stasis with chronic rocha ges. The patient has left great toe swelling with some chronic excoriation. ASSESSMENT: 1. Severe sepsis with shock. 2. Acute respiratory failure secondary to congestive heart failure exacerbation and multifocal pneu monia. 3. Status post coagulase negative staph bacteremia on admission with repeat blood cultures being ne gative. 4. Bilateral lower extremities cellulitis with chronic venous stasis. 5. Questionable left great toe osteomyelitis. 6. End-stage renal disease, hemodialysis dependent. 7. Diabetes. 8. Diarrhea, on empiric Flagyl. PLAN: The patient remains stable, covered with appropriate antimicrobials. He is being seen by [facility]. Nurses are trying to wean his Levophed down. The patient is also on steroids. Continue present care. Dictated By: JAMEY VAZQUEZ TIMBER GRADER for DONAVAN HALLMAN/GREGORY Conf#: [id number] DID#: [id number]
[2016-11-26] MEDS: VANCOMYCIN 1.25 GM in SOD CHLORIDE 0.9% 250 ML IVPB SCH (17:40)
--- NOTE | 2016-11-26 17:40 | PN ---
Date/Time of Note Date/Time of Note DATE: 11/26/16 TIME: 17:25 Assessment/Plan VTE Prophylaxis VTE Prophylaxis Intervention: other (Eliquis) Assessment/Plan Chief Complaint/Hosp Course 1. Acute respiratory failure secondary to fluid overload and/or Pneumonia Continue hemodialysis per nephrology Continue antibiotics per ID Pulmonology on the case, continue vent support, continue steroids 2. Pancytopenia with microcytosis: mild iron deficiency noted 3. Septic shock likely secondary to Multifocal Pneumonia Continue pressor support and antibiotics 4. 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 Morbid obesity / cannot r/o OHS 6. COPD with chronic lung disease and History of multiple previous respiratory failure and tracheostomy in the past. 7. HTN > hypotensive 2/2 sepsis 8. Paroxysmal Afib currently in sinus 9. DM2 with steroid induced hyperglycemia 10. Pulmonary lymphadenopathy: reactive versus neoplastic Pulmonology on the case 11. LE cellulitis with Chronic foot ulcer and hx of osteomyelitis: improving 12. Debility with poor prognosis Family conference tomorrow Prophylaxis: Eliquis Problems: Subjective 24 Hr Interval Summary Subjective hx not possible: pt non-verbal Exam/Review of Systems Vital Signs Vitals Vital Signs Date Time Temp Pulse Resp B/P Pulse Ox O2 Delivery O2 Flow Rate FiO2 11/26/16 17:14 70 30 94 75 11/26/16 14:15 95/53 Mechanical Ventilator 11/26/16 12:00 98.3 Intake and Output 11/25/16 11/25/16 11/26/16 15:00 23:00 07:00 Intake Total 1303.60 ml 561.80 ml 793.86 ml Output Total 3575 ml 15 ml 45 ml Balance -2271.40 ml 546.80 ml 748.86 ml Exam Constitutional: non-verbal ENMT: intubated Respiratory: clear to auscultation Cardiovascular: regular rate and rhythm Gastrointestinal: soft, No distended Musculoskeletal: nl extremities to inspection Results Result Diagram: 11/26/16 0350 11/26/16 0350 Results 24 hrs Laboratory Tests Test 11/25/16 20:12 11/26/16 01:49 11/26/16 03:50 11/26/16 05:22 Bedside Glucose 215 199 183 Albumin 2.7 L Anion Gap 19 H Basophils # 0.0 Basophils % 0.1 Blood Urea Nitrogen 77 H Calcium Level 7.9 L Carbon Dioxide Level 27 Chloride Level 101 Creatinine 3.05 H Eosinophils # 0.0 Eosinophils % 0.0 Glucose Level 188 Hematocrit 33.0 L Hemoglobin 10.0 L Lymphocytes # 0.4 L Lymphocytes % 2.0 L Mean Corpuscular Hemoglobin 24.1 L Mean Corpuscular Hemoglobin Concent 30.3 L Mean Corpuscular Volume 79.5 L Mean Platelet Volume 10.6 H Monocytes # 1.3 H Monocytes % 5.9 Neutrophils # 19.5 H Neutrophils % 89.9 H Nucleated Red Blood Cells # 0.0 Nucleated Red Blood Cells % 0.0 Phosphorus Level 5.1 H Platelet Count 177 Potassium Level 4.8 Red Blood Count 4.15 L Red Cell Distribution Width 19.8 H Sodium Level 142 White Blood Count 21.7 H Test 11/26/16 08:50 11/26/16 13:39 Bedside Glucose 183 198 Medications Medications Current Medications Ondansetron HCl (Zofran Inj) 4 mg Q6H PRN IV NAUSEA AND/OR VOMITING; Start 11/17 at 11:00 Acetaminophen/ Hydrocodone Bitart ([place] (5/325)) 1 tab Q6H PRN PO MODERATE PAIN LEVEL 4-6; Start 11/17/16 at 11:00 Magnesium Hydroxide (Milk Of Mag) 30 ml DAILY PRN PO CONSTIPATION; Start at 11:00 Sodium Biphosphate/ Sodium Phosphate (Fleet Enema) 133 ml DAILY PRN [place] CONSTIPATION; Start 11/17/16 at 11:00 Hydralazine HCl (Apresoline) 10 mg Q6H PRN IV ELEVATED BLOOD PRESSURE; Start at 11:00 Nitroglycerin (Nitroglycerin (Sl Tab) 0.4 Mg) 1 tab Q5M PRN SL ANGINA; Start at 11:00 Acetaminophen (Tylenol Tab) 650 mg Q6H PRN PO PAIN LEVEL 1-5; Start 11/17/16 at 11:00 Allopurinol (Zyloprim) 100 mg DAILY PO Last administered on 11/26/16 08:51; Admin Dose 100 MG; Start 11/18/16 at 09:00 Aspirin (Halfprin) 81 mg DAILY PO Last administered on 11/26/16 08:50; Admin Dose 81 MG; Start 11/18/16 at 09:00 Atorvastatin Calcium (Lipitor) 10 mg QHS PO Last administered on 11/25/16 20: 02; Admin Dose 10 MG; Start 11/17/16 at 21:00 Famotidine (Pepcid) 20 mg Q24H PO Last administered on 11/25/16 20:03; Admin Dose 20 MG; Start 11/17/16 at 21:00 Lactobacillus Acidoph/Bulgaricus (Floranex) 1 tab TID PO Last administered on 13:36; Admin Dose 1 TAB; Start 11/17/16 at 13:00 Lorazepam (Ativan) 0.5 mg Q6 PRN PO ANXIETY Last administered on 11/18/16 11:04 ; Admin Dose 0.5 MG; Start 11/17/16 at 11:00 Fish Oil (Fish Oil) 1,000 mg DAILY PO Last administered on 11/26/16 08:50; Admin Dose 1,000 MG; Start 11/18/16 at 09:00 Pyridoxine HCl (Vitamin B6) 100 mg DAILY PO Last administered on 11/26/16 08: 51; Admin Dose 100 MG; Start 11/18/16 at 09:00 Simethicone (Mylicon) 80 mg Q6H PRN PO INTESTINAL SPASMS/CRAMPING; Start at 11:00 Vitamin E (Vitamin E) 400 units DAILY PO Last administered on 11/26/16 08:51; Admin Dose 400 UNITS; Start 11/18/16 at 09:00 Zolpidem Tartrate (Ambien) 10 mg QHS PRN PO INSOMNIA; Start 11/17/16 at 11:00 Al Hydrox/Mg Hydrox/Simethicone (Mag-Al Plus) 10 ml Q6 PRN PO DISTENSION/GAS/ BLOATING; Start 11/17/16 at 11:00 Vancomycin HCl (Vanco Iv Per Pharmacy) PER PHARMACY DOSING NOTE XX ; Start at 11:30 Miscellaneous Information 1 ea NOTE XX ; Start 11/17/16 at 11:30 Glucose (Glutose) 15 gm Q15M PRN PO DECREASED GLUCOSE; Start 11/17/16 at 11:30 Glucose (Glutose) 22.5 gm Q15M PRN PO DECREASED GLUCOSE; Start 11/17/16 at 11:30 Dextrose (D50w Syringe) 25 ml Q15M PRN IV DECREASED GLUCOSE Last administered on 11/20/16 02:28; Admin Dose 25 ML; Start 11/17/16 at 11:30 Dextrose (D50w Syringe) 50 ml Q15M PRN IV DECREASED GLUCOSE; Start 11/17/16 at 11:30 Glucagon (Glucagen) 1 mg Q15M PRN IM DECREASED GLUCOSE Last administered on 11/19 21:43; Admin Dose 1 MG; Start 11/17/16 at 11:30 Glucose (Glutose) 15 gm Q15M PRN BUCCAL DECREASED GLUCOSE; Start 11/17/16 at 11: 30 Guaifenesin (Robitussin Liquid Cup) 200 mg Q4H PRN PO COUGH; Start 11/17/16 at 16:00 Phenol (Cepastat Lozenge) 1 lozenge Q1H PRN MT cough; Start 11/17/16 at 16:00 Bisacodyl (Dulcolax Supp) 10 mg Q24H PRN [place] CONSTIPATION; Start 11/17/16 at 16: 30 Cholecalciferol (Vitamin D) 1,000 unit DAILY PO Last administered on 11/26/16 08:50; Admin Dose 1,000 UNIT; Start 11/18/16 at 09:00 Diphenhydramine HCl (Benadryl) 25 mg BID PRN PO ITCHING; Start 11/17/16 at 16:30 Multivitamins Therapeutic (Theragran) 1 tab DAILY PO Last administered on 08:51; Admin Dose 1 TAB; Start 11/18/16 at 09:00 Zinc Sulfate 220 mg 220 mg DAILY PO Last administered on 11/26/16 08:51; Admin Dose 220 MG; Start 11/18/16 at 09:00 Propofol (Diprivan) 100 ml @ 3.96 mls/hr Q12H IV Last administered on 17:10; Admin Dose 19.8 MLS/HR; Start 11/18/16 at 12:30 Ferrous Sulfate (Feosol Liquid Cup) 300 mg BID GTB Last administered on 08:50; Admin Dose 300 MG; Start 11/18/16 at 21:00 Acetaminophen (Tylenol Liquid) 650 mg Q6 PRN NGT PAIN AND OR ELEVATED TEMP Last administered on 11/19/16 18:41; Admin Dose 650 MG; Start 11/19/16 at 03:30 Amikacin Sulfate (Amikacin Iv Per Pharmacy) AMIKACIN PER PHARMACY NOTE XX ; Start 11/20/16 at 11:30 Nystatin/ Triamcinolone Acetonide (Mycolog Oint) 1 applic BID TOP Last administered on 11/26/16 08:52; Admin Dose 1 APPLIC; Start 11/20/16 at 21:00 Docusate Sodium (Colace Liquid Cup) 200 mg BID GTB Last administered on 08:50; Admin Dose 200 MG; Start 11/21/16 at 21:00 Methylprednisolone Sodium Succinate 40 mg 40 mg Q8 IV Last administered on 11/26 13:36; Admin Dose 40 MG; Start 11/21/16 at 16:00 Norepinephrine/ Dextrose (Levophed/D5W) 500 ml @ 0 mls/hr TITRATE IV Last administered on 11/22/16 20:38; Admin Dose 9.37 MLS/HR; Start 11/22/16 at 07:00 Apixaban 5 mg 5 mg BID PO Last administered on 11/26/16 08:52; Admin Dose 5 MG ; Start 11/22/16 at 21:00 Vancomycin HCl/ Sodium Chloride (Vancocin/NS) 250 ml @ 83.333 mls/ hr Q96H IVPB Last administered on 11/22/16 15:43; Admin Dose 83.333 MLS/HR; Start at 15:00 Morphine Sulfate (morphine) 4 mg Q4H PRN IV SEVERE PAIN LEVEL 7-10 Last administered on 11/24/16 00:38; Admin Dose 4 MG; Start 11/23/16 at 15:00 Lorazepam (Ativan) 0.5 mg Q2H PRN IV ANXIETY; Start 11/23/16 at 15:00 Insulin Glargine (Lantus) 25 unit DAILY@08 SC Last administered on 11/26/16 08 :53; Admin Dose 25 UNIT; Start 11/24/16 at 11:00 Insulin Aspart (Novolog Insulin Pen) NOVOLOG *MODERATE* ALGORI... Q4 SC Last administered on 11/26/16 13:41; Admin Dose 4 UNIT; Start 11/24/16 at 13:00 Metronidazole (Flagyl) 500 mg Q8 GTB Last administered on 11/26/16 13:36; Admin Dose 500 MG; Start 11/24/16 at 14:00 Nystatin (Nystatin Susp) 5 ml QID PO Last administered on 11/26/16 13:38; Admin Dose 5 ML; Start 11/24/16 at 13:00 Potassium Chloride (Potassium Chloride Pwd/Soln) 40 meq DAILY NGT ; Start at 09:00; Status Future Hold CABRERA DOSHI Nov 26, 2016 17:35
[2016-11-26] MEDS: ATORVASTATIN 10 MG TAB PO SCH (20:03)
[2016-11-26] MEDS: FAMOTIDINE 20 MG TAB PO SCH (20:03)
--- NOTE | 2016-11-26 22:57 | CONS ---
Date/Time of Note Date/Time of Note DATE: 11/26/16 TIME: 22:57 Assessment/Plan Assessment/Plan Additional Assessment/Plan We've no option but to continue present regimen for the time being including dialysis Consultation Date/Type/Reason Admit Date/Time Nov 17, 2016 at 12:10 Initial Consult Date 11/17/16 Type of Consultation: RENAL Referring Provider: FELIX SCOTT 24 HR Interval Summary Free Text/Dictation sedated, on vent support Subjective hx not possible: pt non-verbal Exam/Review of Systems Vital Signs Vitals Vital Signs Date Time Temp Pulse Resp B/P Pulse Ox O2 Delivery O2 Flow Rate FiO2 11/26/16 22:15 81 27 95/61 95 11/26/16 22:00 Mechanical Ventilator 11/26/16 20:00 75 11/26/16 19:00 98.8 Intake and Output 11/25/16 11/25/16 11/26/16 14:59 22:59 06:59 Intake Total 1209.62 ml 662.55 ml 816.47 ml Output Total 3515 ml 75 ml 45 ml Balance -2305.38 ml 587.55 ml 771.47 ml Exam Constitutional: alert, obese, oriented, well developed Psych: nl mood/affect, no complaints Head: atraumatic, normocephalic Eyes: EOMI, PERRL, nl conjunctiva, nl lids, nl sclera ENMT: nl external ears & nose, nl lips & teeth, nl nasal mucosa & septum Neck: non-tender, supple Respiratory: clear to auscultation, normal air movement Cardiovascular: nl pulses, regular rate and rhythm Gastrointestinal: distended, nl liver, spleen, non-tender, soft Genitourinary - Male: other (bennett) Musculoskeletal: nl extremities to inspection, nl gait and stance Extremities: normal pulses 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: 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0 L Lymphocytes # 0.4 L Lymphocytes % 2.0 L Mean Corpuscular Hemoglobin 24.1 L Mean Corpuscular Hemoglobin Concent 30.3 L Mean Corpuscular Volume 79.5 L Mean Platelet Volume 10.6 H Monocytes # 1.3 H Monocytes % 5.9 Neutrophils # 19.5 H Neutrophils % 89.9 H Nucleated Red Blood Cells # 0.0 Nucleated Red Blood Cells % 0.0 Phosphorus Level 5.1 H Platelet Count 177 Potassium Level 4.8 Red Blood Count 4.15 L Red Cell Distribution Width 19.8 H Sodium Level 142 White Blood Count 21.7 H Test 11/26/16 13:39 11/26/16 17:41 11/26/16 20:04 Bedside Glucose 198 213 237 H Medications Medications Current Medications Ondansetron HCl (Zofran Inj) 4 mg Q6H PRN IV NAUSEA AND/OR VOMITING; Start 11/17 at 11:00 Acetaminophen/ Hydrocodone Bitart ([place] (5/325)) 1 tab Q6H PRN PO MODERATE PAIN LEVEL 4-6; Start 11/17/16 at 11:00 Magnesium Hydroxide (Milk Of Mag) 30 ml DAILY PRN PO CONSTIPATION; Start at 11:00 Sodium Biphosphate/ Sodium Phosphate (Fleet Enema) 133 ml DAILY PRN [place] CONSTIPATION; Start 11/17/16 at 11:00 Hydralazine HCl (Apresoline) 10 mg Q6H PRN IV ELEVATED BLOOD PRESSURE; Start at 11:00 Nitroglycerin (Nitroglycerin (Sl Tab) 0.4 Mg) 1 tab Q5M PRN SL ANGINA; Start at 11:00 Acetaminophen (Tylenol Tab) 650 mg Q6H PRN PO PAIN LEVEL 1-5; Start 11/17/16 at 11:00 Allopurinol (Zyloprim) 100 mg DAILY PO Last administered on 11/26/16t 08:51; Admin Dose 100 MG; Start 11/18/16 at 09:00 Aspirin (Halfprin) 81 mg DAILY PO Last administered on 11/26/16 08:50; Admin Dose 81 MG; Start 11/18/16 at 09:00 Atorvastatin Calcium (Lipitor) 10 mg QHS PO Last administered on 11/26/16 20: 03; Admin Dose 10 MG; Start 11/17/16 at 21:00 Famotidine (Pepcid) 20 mg Q24H PO Last administered on 11/26/16 20:03; Admin Dose 20 MG; Start 11/17/16 at 21:00 Lactobacillus Acidoph/Bulgaricus (Floranex) 1 tab TID PO Last administered on 20:03; Admin Dose 1 TAB; Start 11/17/16 at 13:00 Lorazepam (Ativan) 0.5 mg Q6 PRN PO ANXIETY Last administered on 11/18/16 11:04 ; Admin Dose 0.5 MG; Start 11/17/16 at 11:00 Fish Oil (Fish Oil) 1,000 mg DAILY PO Last administered on 11/26/16 08:50; Admin Dose 1,000 MG; Start 11/18/16 at 09:00 Pyridoxine HCl (Vitamin B6) 100 mg DAILY PO Last administered on 11/26/16 08: 51; Admin Dose 100 MG; Start 11/18/16 at 09:00 Simethicone (Mylicon) 80 mg Q6H PRN PO INTESTINAL SPASMS/CRAMPING; Start at 11:00 Vitamin E (Vitamin E) 400 units DAILY PO Last administered on 11/26/16 08:51; Admin Dose 400 UNITS; Start 11/18/16 at 09:00 Zolpidem Tartrate (Ambien) 10 mg QHS PRN PO INSOMNIA; Start 11/17/16 at 11:00 Al Hydrox/Mg Hydrox/Simethicone (Mag-Al Plus) 10 ml Q6 PRN PO DISTENSION/GAS/ BLOATING; Start 11/17/16 at 11:00 Vancomycin HCl (Vanco Iv Per Pharmacy) PER PHARMACY DOSING NOTE XX ; Start at 11:30 Miscellaneous Information 1 ea NOTE XX ; Start 11/17/16 at 11:30 Glucose (Glutose) 15 gm Q15M PRN PO DECREASED GLUCOSE; Start 11/17/16 at 11:30 Glucose (Glutose) 22.5 gm Q15M PRN PO DECREASED GLUCOSE; Start 11/17/16 at 11:30 Dextrose (D50w Syringe) 25 ml Q15M PRN IV DECREASED GLUCOSE Last administered on 11/20/16 02:28; Admin Dose 25 ML; Start 11/17/16 at 11:30 Dextrose (D50w Syringe) 50 ml Q15M PRN IV DECREASED GLUCOSE; Start 11/17/16 at 11:30 Glucagon (Glucagen) 1 mg Q15M PRN IM DECREASED GLUCOSE Last administered on 11/19 21:43; Admin Dose 1 MG; Start 11/17/16 at 11:30 Glucose (Glutose) 15 gm Q15M PRN BUCCAL DECREASED GLUCOSE; Start 11/17/16 at 11: 30 Guaifenesin (Robitussin Liquid Cup) 200 mg Q4H PRN PO COUGH; Start 11/17/16 at 16:00 Phenol (Cepastat Lozenge) 1 lozenge Q1H PRN MT cough; Start 11/17/16 at 16:00 Bisacodyl (Dulcolax Supp) 10 mg Q24H PRN [place] CONSTIPATION; Start 11/17/16 at 16: 30 Cholecalciferol (Vitamin D) 1,000 unit DAILY PO Last administered on 11/26/16 08:50; Admin Dose 1,000 UNIT; Start 11/18/16 at 09:00 Diphenhydramine HCl (Benadryl) 25 mg BID PRN PO ITCHING; Start 11/17/16 at 16:30 Multivitamins Therapeutic (Theragran) 1 tab DAILY PO Last administered on 08:51; Admin Dose 1 TAB; Start 11/18/16 at 09:00 Zinc Sulfate 220 mg 220 mg DAILY PO Last administered on 11/26/16 08:51; Admin Dose 220 MG; Start 11/18/16 at 09:00 Propofol (Diprivan) 100 ml @ 3.96 mls/hr Q12H IV Last administered on 22:17; Admin Dose 19.8 MLS/HR; Start 11/18/16 at 12:30 Ferrous Sulfate (Feosol Liquid Cup) 300 mg BID GTB Last administered on 20:03; Admin Dose 300 MG; Start 11/18/16 at 21:00 Acetaminophen (Tylenol Liquid) 650 mg Q6 PRN NGT PAIN AND OR ELEVATED TEMP Last administered on 11/19/16 18:41; Admin Dose 650 MG; Start 11/19/16 at 03:30 Amikacin Sulfate (Amikacin Iv Per Pharmacy) AMIKACIN PER PHARMACY NOTE XX ; Start 11/20/16 at 11:30 Nystatin/ Triamcinolone Acetonide (Mycolog Oint) 1 applic BID TOP Last administered on 11/26/16 20:06; Admin Dose 1 APPLIC; Start 11/20/16 at 21:00 Docusate Sodium (Colace Liquid Cup) 200 mg BID GTB Last administered on 20:03; Admin Dose 200 MG; Start 11/21/16 at 21:00 Methylprednisolone Sodium Succinate 40 mg 40 mg Q8 IV Last administered on 11/26 22:17; Admin Dose 40 MG; Start 11/21/16 at 16:00 Norepinephrine/ Dextrose (Levophed/D5W) 500 ml @ 0 mls/hr TITRATE IV Last administered on 11/22/16 20:38; Admin Dose 9.37 MLS/HR; Start 11/22/16 at 07:00 Apixaban 5 mg 5 mg BID PO Last administered on 11/26/16 20:03; Admin Dose 5 MG ; Start 11/22/16 at 21:00 Vancomycin HCl/ Sodium Chloride (Vancocin/NS) 250 ml @ 83.333 mls/ hr Q96H IVPB Last administered on 11/26/16 17:40; Admin Dose 83.333 MLS/HR; Start 11/22 at 15:00 Morphine Sulfate (morphine) 4 mg Q4H PRN IV SEVERE PAIN LEVEL 7-10 Last administered on 11/24/16 00:38; Admin Dose 4 MG; Start 11/23/16 at 15:00 Lorazepam (Ativan) 0.5 mg Q2H PRN IV ANXIETY; Start 11/23/16 at 15:00 Insulin Glargine (Lantus) 25 unit DAILY@08 SC Last administered on 11/26/16 08 :53; Admin Dose 25 UNIT; Start 11/24/16 at 11:00 Insulin Aspart (Novolog Insulin Pen) NOVOLOG *MODERATE* ALGORI... Q4 SC Last administered on 11/26/16 20:05; Admin Dose 6 UNIT; Start 11/24/16 at 13:00 Metronidazole (Flagyl) 500 mg Q8 GTB Last administered on 11/26/16 22:17; Admin Dose 500 MG; Start 11/24/16 at 14:00 Nystatin (Nystatin Susp) 5 ml QID PO Last administered on 11/26/16 20:03; Admin Dose 5 ML; Start 11/24/16 at 13:00 Potassium Chloride (Potassium Chloride Pwd/Soln) 40 meq DAILY NGT ; Start at 09:00; Status Future Hold ALONSO MARTINEZ MD Nov 26, 2016 22:57
[2016-11-27] VITALS (98 sets, daily range): BP systolic 77–139; BP diastolic 51–89; PULSE 67–103; RESP 21–50
[2016-11-27] MEDS: PROPOFOL 100 ML IV SCH ×4 (01:06→22:02)
[2016-11-27] MEDS: INSULIN ASPART [NOVOLOG] 3 ML PEN SC SCH ×6 (01:06→20:38)
[2016-11-27] MEDS: IPRATROPIUM (HFA) 12.9 GM INHALER INH PRN ×4 (01:25→17:07)
[2016-11-27] MEDS: ALBUTEROL HFA 8 GM INHALER INH SCH ×6 (01:25→21:15)
[2016-11-27 03:48] LABS: ADD SCAN DIFF NO
[2016-11-27 03:56] LABS: ABNORMAL IP MESSAGE 1; HEMATOCRIT 33.7 % (42.0-52.0); HEMOGLOBIN 10.3 g/dl (14.0-18.0); MEAN CORPUSCULAR HEMOGLOBIN 24.1 pg (29.0-33.0); MEAN CORPUSCULAR HGB CONC 30.6 g/dl (32.0-37.0); MEAN CORPUSCULAR VOLUME 78.9 fl (82.0-101.0); MEAN PLATELET VOLUME 10.6 fl (7.4-10.4); PLATELET COUNT 198 10^3/UL (140-415); RED BLOOD COUNT 4.27 10^6/ul (4.70-6.10); RED CELL DISTRIBUTION WIDTH 19.9 % (11.5-14.5); WHITE BLOOD COUNT 20.5 10^3/ul (4.8-10.8)
[2016-11-27 04:01] LABS: ALBUMIN 2.8 g/dl (3.3-4.9)
[2016-11-27 04:02] LABS: POTASSIUM 5.3 mmol/L (3.5-5.1)
[2016-11-27 04:04] LABS: CREATININE 4.35 mg/dl (0.61-1.24)
[2016-11-27 04:05] LABS: PHOSPHORUS 7.6 mg/dl (2.5-4.9)
[2016-11-27 04:22] LABS: LYMPHOCYTES # 0.6 10^3/ul (0.8-2.9); MONOCYTE # 0.6 10^3/ul (0.3-0.9); NEUTROPHIL # 19.3 10^3/ul (1.6-7.5); PLATELET ESTIMATE PLT APPEAR ADEQUATE
[2016-11-27] MEDS: METHYLPREDNISOLONE 40 MG INJ IV SCH ×2 (05:43→20:17)
[2016-11-27] MEDS: metroNIDAZOLE 500 MG TAB GTB SCH ×3 (05:43→22:02)
--- NOTE | 2016-11-27 06:38 | PN ---
DATE: 11/26/2016 Cardiology followup. SUBJECTIVE: . , atrial fibrillation. Still on the vent, down to 75% oxygen. Sti ll hypotensive, required to be on Levophed drip, although at 1 wilmer only. Patient nonverbal and fredy abdelrahman. MEDICATIONS: Reviewed as per medical reconciliation, personally reviewed. PHYSICAL EXAMINATION: VITAL SIGNS: Temperature is 98.3, T-max is 99.7, heart rate of 62, blood pressure 95/53, respirator y rate of 26. HEENT: Normocephalic, atraumatic. Obese gentleman. Pupils are equal. NECK: Supple, trach on the vent. CARDIOVASCULAR: Irregularly irregular, systolic murmur. PULMONARY: With no wheezes, with diffuse rhonchi. GASTROINTESTINAL: Soft, nontender. Obese. EXTREMITIES: With diffuse lower extremity edema. There are multiple ulcerations on the foot. NEUROLOGIC: Sedated. LABORATORY: WBC of 21.7, hemoglobin 13.0, platelets 177. Sodium 142, potassium 4.8, BUN of 77, cre atinine 0.05, glucose of 188. Chest x-ray shows persistent cardiomegaly, pulmonary vascular congest ion, bilateral pulmonary infiltrates. ASSESSMENT AND PLAN: 1. Severe hypoxemic respiratory failure, status post intubation on the vent. 2. Bilateral pneumonia. 3. Fluid overload, congestive heart failure with diastolic dysfunction and renal failure. 4. Septic shock, required to be on pressors. 5. Atrial fibrillation, chronic, on Eliquis and heart rate control. 6. History of previous respiratory failure, on tracheostomy. 7. Morbid obesity. 8. Diabetes. 9. Essential hypertension, currently hypotensive and shock. RECOMMENDATIONS: Will continue with the ICU care. Ventilator support will be continued. Levophed will be titrated as tolerated. Try to take him off of it if his blood pressure remains stable. Fam karon meeting is being scheduled for tomorrow. Vent will be continued. Broad spectrum antibiotic as per ID's recommendation to be continued. Heart rate has remained stable. If needed, we will give d igoxin at a very low dose to avoid digoxin toxicity. However, currently heart rate remains stable. Patient has been on metoprolol, which had to be held due to his low blood pressure. Will discontin ue it completely given the fact that the patient is so hypotensive at this point and remains hypoten sive. Will consider resuming it once the patient's blood pressure improves. More than 38 minutes of critical care time was spent managing this patient, excluding any procedures . Dictated By: GARDENIA RAZO/GREGORY Conf#: [id number] DID#: [id number]
[2016-11-27] MEDS: SEVELAMER CARBONATE 0.8 GM PKT PO SCH ×3 (07:35→17:57)
--- NOTE | 2016-11-27 08:54 | PN ---
DATE: 11/27/2016 CARDIOLOGY FOLLOWUP SUBJECTIVE: Discussed with the staff. Rhythm strip was reviewed. The patient remains in atrial fi brillation. Heart rate has remained stable. He is still hypotensive and still on Levophed drip. H e is on 75% oxygen on the vent. Has been better, saturating satisfactory at this point. Remains no nverbal on the vent. MEDICATIONS: Reviewed as per medical reconciliation, personally reviewed. PHYSICAL EXAMINATION: VITAL SIGNS: Temperature 98.8, T-max is 99.6, heart rate of 82, blood pressure of 109/64, respirato ry rate of 22, saturating 96% on the vent, 75% oxygen. HEENT: Normocephalic, atraumatic. Pupils are equal. Obese gentleman status post intubation on the vent. CARDIOVASCULAR: Irregularly irregular, systolic murmur. PULMONARY: With diffuse rhonchi. GASTROINTESTINAL: Soft, obese. EXTREMITIES: With diffuse lower extremity edema. NEUROLOGIC: Sedated. LABORATORY: Sodium 141, potassium is 5.3, BUN of 103, creatinine of 4.35, glucose of 239. WBC of 2 0.5, hemoglobin 10.3, platelets 198. ASSESSMENT AND PLAN: 1. Severe hypoxemic respiratory failure status post intubation on the vent. Still requiring a very large amount of oxygen. 2. Sepsis and shock. 3. Pneumonia, bilateral, multiple antibiotics. 4. Atrial fibrillation, chronic, on heart rate control and anticoagulation. 5. Renal failure on dialysis. 6. History of hypertension, currently hypotensive. 7. Diabetes, on insulin. 8. Morbid obesity. 9. Fluid overload and congestive heart failure secondary to diastolic dysfunction as well as renal failure and fluid overload. RECOMMENDATIONS: Dialysis will be continued. Try to remove the fluid as much as possible. Levophe d will be needed for the time being at least. Will continue it and try to wean off if the blood pre ssure stabilizes. The patient's vent support will be continued. Try to cut down on oxygen if possi ble. Also, has been very difficult. Aggressive suctioning is to be continued and ICU care to be co ntinued. The patient has had thick amount of secretions which have been suctioned very frequently a s per discussion with the RTs. We will continue with the ICU care for now. More than 36 minutes of critical care time was spent managing this patient excluding any procedures. Dictated By: GARDENIA NELSON MD AV/NTS Conf#: [id number] DID#: [id number] CC: CABRERA DOSHI MD; Yudith;*Ac*
[2016-11-27] MEDS: ASPIRIN (EC) 81 MG TAB PO SCH (09:00)
[2016-11-27] MEDS: CHOLECALCIFEROL 1,000 UNIT TAB PO SCH (09:25)
[2016-11-27] MEDS: NYSTATIN SUSP 5 ML CUP PO SCH ×4 (09:25→20:17)
[2016-11-27] MEDS: LACTOBACILLUS CHEW TAB PO SCH ×3 (09:25→20:17)
[2016-11-27] MEDS: ZINC SULFATE 220 MG CAP PO SCH (09:25)
[2016-11-27] MEDS: PYRIDOXINE 50 MG TAB PO SCH (09:25)
[2016-11-27] MEDS: ALLOPURINOL 100 MG TAB PO SCH (09:25)
[2016-11-27] MEDS: VITAMIN E 400 UNITS CAP PO SCH (09:25)
[2016-11-27] MEDS: APIXABAN 5 MG TABLET PO SCH ×2 (09:25→20:18)
[2016-11-27] MEDS: FISH OIL 1,000 MG CAP PO SCH (09:25)
[2016-11-27] MEDS: MULTIVITAMINS THERAPEUTIC TAB PO SCH (09:25)
[2016-11-27] MEDS: FERROUS SULFATE 60 MG/ML 5ML CUP GTB SCH ×2 (09:26→20:17)
[2016-11-27] MEDS: DOCUSATE SODIUM 10 MG/ML (10ML CUP) GTB SCH ×2 (09:26→20:17)
[2016-11-27] MEDS: INSULIN GLARGINE [LANtus] 3 ML PEN SC SCH (09:28)
[2016-11-27] MEDS: NYSTATIN/TRIAMCINOLONE 15 GM OINT TOP SCH ×2 (09:44→20:18)
[2016-11-27 09:57] LABS: AADO2 Arterial 406.4 mmHg (7.0-24.0); Allen Test ACCEPTAB; Arterial Base Excess 0.1 mmol/L (-3.0-3); Arterial COHb 0.3 % (0.0-3.0); Arterial Fraction of Oxyhgb 91.1 % (93.0-99.0); Arterial HCO3 27.4 mmol/L (22.0-26.0); Arterial MetHb 0.4 % (0.0-1.5); Arterial Total Hemglobin 12.3 g/dl (12.0-18.0); MODE VENT - AC
--- NOTE | 2016-11-27 10:15 | RADRPT ---
PROCEDURE: XR Chest. CLINICAL INDICATION: Shortness of breath. TECHNIQUE: Single frontal view. COMPARISON: 11/26/2016. FINDINGS: The endotracheal tube, nasogastric tube, left internal jugular vein catheter, and right internal jug ular vein tunnel dialysis catheter remain in satisfactory position. Bilateral interstitial disease consistent with pulmonary edema is unchanged. There is mild right basilar atelectasis. The heart is enlarged. There is no pleural effusion. There is no pneumothorax. IMPRESSION: 1. No significant change from 11/26/2016. RPTAT: QQ .Aldo Ramirez MD, MD Date Time Electronically viewed and signed by .Aldo Ramirez MD, MD on 11/27/2016 10:15 .R/
[2016-11-27] MEDS: FENTAnyl (DRIP) 1000 mcg/100mL 100 ML IV SCH (10:18)
--- NOTE | 2016-11-27 10:55 | PN ---
DATE: 11/27/2016 SUBJECTIVE: Mr. Fabian mechanical ventilation, FIO2 of 75%, PEEP of 8, moderate secretions. Neurolog ically intact, opens eyes, follows simple commands off sedation. PHYSICAL EXAMINATION: VITAL SIGNS: Temperature 98, pulse is 111/74, O2 saturation 96%, FIO2 of 75%. NECK: Supple. No JVD or lymphadenopathy. CARDIAC: S1, S2, no added sounds or murmurs. CHEST: Diminished air entry bilaterally with a few rales. ABDOMEN: Obese, soft, nontender. No guarding or rebound. EXTREMITIES: No cyanosis, clubbing or edema. NEUROLOGIC: Generalized weakness. LABORATORY DATA: White count 20.5, hemoglobin 10.3, platelets of 198. BUN 103, creatinine 4.35. A rterial blood gas PaO2 of 68 on current ventilator settings. IMPRESSION AND PLAN: 1. Acute on chronic hypoxemic respiratory failure. 2. Pulmonary edema with congestion. 3. Increased vascular ____, likely healthcare-associated pneumonia. 4. History of a tracheostomy in the past. 5. End-stage renal failure requiring hemodialysis. The patient will require: 1. Continued mechanical ventilation. 2. Decrease FIO2 as tolerated. 3. I had a long discussion with family at bedside regarding goals of care. They were considering t racheostomy, as patient expressed that he did not want this in the past. We will decrease sedation on this patient and hopefully involve him in any decision making process. Dictated By: EDNA COLINDRES/GREGORY Conf#: [id number] DID#: [id number]
--- NOTE | 2016-11-27 14:46 | PN ---
DATE: 11/27/2016 SUBJECTIVE: No acute changes. The patient is lying comfortably in bed, tolerates tube feeding, sti ll on low dose Levophed. No fevers. VITAL SIGNS: Temperature 98.8, pulse 95, respirations 26, blood pressure 111/71, saturation 94 on 7 5% FIO2. WBC 20.5, H and H 10.3 and 33.7, platelets 198, neutrophils 94. MICROBIOLOGY: Blood cultures since November 23 remain negative. ANTIMICROBIALS: The patient is on IV vancomycin, Flagyl and amikacin. INDWELLINGS: Endotracheal tube, NG tube, left IJ triple lumen catheter, right subclavian Perm-A-Cat h, Higgins catheter. DIAGNOSTICS: Chest x-ray revealed no significant changes. PHYSICAL EXAMINATION: GENERAL: This is a chronically ill-appearing, morbidly obese, middle-aged man who is lying comforta randy in bed. Patient is sedated. HEENT: Head atraumatic, normocephalic. Sclerae anicteric. Buccal mucosa dry. NECK: Supple, trachea midline. CHEST: Rise symmetrical. Breath sounds diminished to bases. HEART: S1, S2. ABDOMEN: Soft. Bowel tones present. EXTREMITIES: With bilateral edema. Patient has bilateral lower extremity excoriation and left grea t toe wound. ASSESSMENT: 1. Septic shock. 2. Healthcare-associated pneumonia, possibly aspiration event. 3. Acute respiratory failure. 4. Pulmonary edema. 5. Left great toe chronic wound, possible osteomyelitis. 6. End-stage renal disease, hemodialysis dependent. 7. Diabetes. 8. Diarrhea, on empiric Flagyl. PLAN: The patient remains on pressors, still with persistent leukocytosis, steroids being tapered d own. He is on Solu-Medrol 40 mg q.12h. We will continue him on current regimen, send sputum for cu ltures. Follow recommendations of consultants. Dictated By: JAMEY VAZQUEZ TECHNICAL EDUCATION TEACHER for DONAVAN HALLMAN/GREGORY Conf#: [id number] DID#: [id number]
--- NOTE | 2016-11-27 16:34 | PN ---
Date/Time of Note Date/Time of Note DATE: 11/27/16 TIME: 16:32 Assessment/Plan VTE Prophylaxis VTE Prophylaxis Intervention: other Assessment/Plan Chief Complaint/Hosp Course 1. Acute respiratory failure secondary to fluid overload and Pneumonia Continue hemodialysis per nephrology Continue antibiotics per ID Pulmonology on the case, continue vent support, continue steroids, patient may need trach, family conference held today to discuss trach placement and family would like to speak to patient about this as he has been trached in the past and has stated that he did not want to be trached again, plan is to decrease sedation and attempt to ask patient himself 2. Pancytopenia with microcytosis: mild iron deficiency noted 3. Septic shock likely secondary to Multifocal Pneumonia Continue pressor support and antibiotics 4. ESRD on HD HD per assistive technology trainer 5. Morbid obesity / cannot r/o OHS 6. COPD with chronic lung disease and History of multiple previous respiratory failure and tracheostomy in the past. 7. HTN > hypotensive 2/2 sepsis 8. Paroxysmal Afib currently in sinus 9. DM2 with steroid induced hyperglycemia 10. Pulmonary lymphadenopathy: reactive versus neoplastic Pulmonology on the case 11. LE cellulitis with Chronic foot ulcer and hx of osteomyelitis: improving 12. Debility Prophylaxis: Eliquis Problems: Subjective 24 Hr Interval Summary Subjective hx not possible: pt non-verbal Exam/Review of Systems Vital Signs Vitals Vital Signs Date Time Temp Pulse Resp B/P Pulse Ox O2 Delivery O2 Flow Rate FiO2 11/27/16 15:20 77 26 97 75 11/27/16 06:00 111/71 Mechanical Ventilator 11/27/16 04:00 98.8 Intake and Output 11/26/16 11/26/16 11/27/16 15:00 23:00 07:00 Intake Total 280 ml 838.35 ml 1007.97 ml Output Total 0 ml 0 ml 3520 ml Balance 280 ml 838.35 ml -2512.03 ml Exam Constitutional: non-verbal ENMT: intubated Respiratory: clear to auscultation Cardiovascular: regular rate and rhythm Gastrointestinal: soft, No distended Musculoskeletal: No nl extremities to inspection Results Result Diagram: 11/27/16 0320 11/27/16 0320 Results 24 hrs Laboratory Tests Test 11/26/16 17:41 11/26/16 20:04 11/27/16 01:04 11/27/16 03:20 Bedside Glucose 213 237 H 227 H Albumin 2.8 L Anion Gap 20 H Blood Urea Nitrogen 103 H Calcium Level 8.0 L Carbon Dioxide Level 26 Chloride Level 100 Creatinine 4.35 #H Glucose Level 239 H Hematocrit 33.7 L Hemoglobin 10.3 L Lymphocytes # 0.6 L Lymphocytes % 3.0 L Mean Corpuscular Hemoglobin 24.1 L Mean Corpuscular Hemoglobin Concent 30.6 L Mean Corpuscular Volume 78.9 L Mean Platelet Volume 10.6 H Monocytes # 0.6 Monocytes % 3.0 Neutrophils # 19.3 H Neutrophils % 94.0 H Phosphorus Level 7.6 #H Platelet Count 198 Platelet Estimate PLT APPEAR ADEQUATE Potassium Level 5.3 H Red Blood Count 4.27 L Red Cell Distribution Width 19.9 H Sodium Level 141 White Blood Count 20.5 H Test 11/27/16 05:46 11/27/16 07:00 11/27/16 09:12 11/27/16 14:00 Bedside Glucose 228 H 203 217 Arterial Blood HCO3 27.4 H Arterial Blood Base Excess 0.1 Arterial Blood Oxygen Saturation 91.7 L Khoi Test ACCEPTAB Arterial Blood Gas Puncture Site Right Radial Arterial Blood Carboxyhemoglobin 0.3 Arterial Blood Date Drawn 11/27/2016 9:40:30 AM Arterial Blood Methemoglobin 0.4 Arterial Blood pCO2 (Temp correct) 56.4 H Arterial Blood pH (Temp corrected) 7.304 L Arterial Blood pO2 (Temp corrected) 68.4 L Blood Gas A-a O2 Differential 406.4 H Blood Gas Actual Respiration Rate 27 Blood Gas Low PEEP Setting 5.0 Blood Gas Modality VENT - AC Blood Gas Notified Time 11/27/2016 9:57:11 AM Blood Gas Notified Whom JLD Blood Gas Respiration Rate 26.0 Blood Gas Specimen Source Blood arterial Blood Gas Temperature 37.0 Blood Gas Tidal Volume 500.0 FiO2 75.0 Oxyhemoglobin Percent 91.1 L Total Hemoglobin 12.3 Medications Medications Current Medications Ondansetron HCl (Zofran Inj) 4 mg Q6H PRN IV NAUSEA AND/OR VOMITING; Start 11/17 at 11:00 Acetaminophen/ Hydrocodone Bitart ([place] (5/325)) 1 tab Q6H PRN PO MODERATE PAIN LEVEL 4-6; Start 11/17/16 at 11:00 Magnesium Hydroxide (Milk Of Mag) 30 ml DAILY PRN PO CONSTIPATION; Start at 11:00 Sodium Biphosphate/ Sodium Phosphate (Fleet Enema) 133 ml DAILY PRN [place] CONSTIPATION; Start 11/17/16 at 11:00 Hydralazine HCl (Apresoline) 10 mg Q6H PRN IV ELEVATED BLOOD PRESSURE; Start at 11:00 Nitroglycerin (Nitroglycerin (Sl Tab) 0.4 Mg) 1 tab Q5M PRN SL ANGINA; Start at 11:00 Acetaminophen (Tylenol Tab) 650 mg Q6H PRN PO PAIN LEVEL 1-5; Start 11/17/16 at 11:00 Allopurinol (Zyloprim) 100 mg DAILY PO Last administered on 11/27/16 09:25; Admin Dose 100 MG; Start 11/18/16 at 09:00 Aspirin (Halfprin) 81 mg DAILY PO Last administered on 11/26/16 08:50; Admin Dose 81 MG; Start 11/18/16 at 09:00 Atorvastatin Calcium (Lipitor) 10 mg QHS PO Last administered on 11/26/16 20: 03; Admin Dose 10 MG; Start 11/17/16 at 21:00 Famotidine (Pepcid) 20 mg Q24H PO Last administered on 11/26/16 20:03; Admin Dose 20 MG; Start 11/17/16 at 21:00 Lactobacillus Acidoph/Bulgaricus (Floranex) 1 tab TID PO Last administered on 14:00; Admin Dose 1 TAB; Start 11/17/16 at 13:00 Lorazepam (Ativan) 0.5 mg Q6 PRN PO ANXIETY Last administered on 11/18/16 11:04 ; Admin Dose 0.5 MG; Start 11/17/16 at 11:00 Fish Oil (Fish Oil) 1,000 mg DAILY PO Last administered on 11/27/16 09:25; Admin Dose 1,000 MG; Start 11/18/16 at 09:00 Pyridoxine HCl (Vitamin B6) 100 mg DAILY PO Last administered on 11/27/16 09: 25; Admin Dose 100 MG; Start 11/18/16 at 09:00 Simethicone (Mylicon) 80 mg Q6H PRN PO INTESTINAL SPASMS/CRAMPING; Start at 11:00 Vitamin E (Vitamin E) 400 units DAILY PO Last administered on 11/27/16 09:25; Admin Dose 400 UNITS; Start 11/18/16 at 09:00 Zolpidem Tartrate (Ambien) 10 mg QHS PRN PO INSOMNIA; Start 11/17/16 at 11:00 Al Hydrox/Mg Hydrox/Simethicone (Mag-Al Plus) 10 ml Q6 PRN PO DISTENSION/GAS/ BLOATING; Start 11/17/16 at 11:00 Vancomycin HCl (Vanco Iv Per Pharmacy) PER PHARMACY DOSING NOTE XX ; Start at 11:30 Miscellaneous Information 1 ea NOTE XX ; Start 11/17/16 at 11:30 Glucose (Glutose) 15 gm Q15M PRN PO DECREASED GLUCOSE; Start 11/17/16 at 11:30 Glucose (Glutose) 22.5 gm Q15M PRN PO DECREASED GLUCOSE; Start 11/17/16 at 11:30 Dextrose (D50w Syringe) 25 ml Q15M PRN IV DECREASED GLUCOSE Last administered on 11/20/16 02:28; Admin Dose 25 ML; Start 11/17/16 at 11:30 Dextrose (D50w Syringe) 50 ml Q15M PRN IV DECREASED GLUCOSE; Start 11/17/16 at 11:30 Glucagon (Glucagen) 1 mg Q15M PRN IM DECREASED GLUCOSE Last administered on 11/19 21:43; Admin Dose 1 MG; Start 11/17/16 at 11:30 Glucose (Glutose) 15 gm Q15M PRN BUCCAL DECREASED GLUCOSE; Start 11/17/16 at 11: 30 Guaifenesin (Robitussin Liquid Cup) 200 mg Q4H PRN PO COUGH; Start 11/17/16 at 16:00 Phenol (Cepastat Lozenge) 1 lozenge Q1H PRN MT cough; Start 11/17/16 at 16:00 Bisacodyl (Dulcolax Supp) 10 mg Q24H PRN [place] CONSTIPATION; Start 11/17/16 at 16: 30 Cholecalciferol (Vitamin D) 1,000 unit DAILY PO Last administered on 11/27/16 09:25; Admin Dose 1,000 UNIT; Start 11/18/16 at 09:00 Diphenhydramine HCl (Benadryl) 25 mg BID PRN PO ITCHING; Start 11/17/16 at 16:30 Multivitamins Therapeutic (Theragran) 1 tab DAILY PO Last administered on 09:25; Admin Dose 1 TAB; Start 11/18/16 at 09:00 Zinc Sulfate 220 mg 220 mg DAILY PO Last administered on 11/27/16 09:25; Admin Dose 220 MG; Start 11/18/16 at 09:00 Propofol (Diprivan) 100 ml @ 3.96 mls/hr Q12H IV Last administered on 06:38; Admin Dose 19.8 MLS/HR; Start 11/18/16 at 12:30 Ferrous Sulfate (Feosol Liquid Cup) 300 mg BID GTB Last administered on 09:26; Admin Dose 300 MG; Start 11/18/16 at 21:00 Acetaminophen (Tylenol Liquid) 650 mg Q6 PRN NGT PAIN AND OR ELEVATED TEMP Last administered on 11/19/16 18:41; Admin Dose 650 MG; Start 11/19/16 at 03:30 Amikacin Sulfate (Amikacin Iv Per Pharmacy) AMIKACIN PER PHARMACY NOTE XX ; Start 11/20/16 at 11:30 Nystatin/ Triamcinolone Acetonide (Mycolog Oint) 1 applic BID TOP Last administered on 11/27/16 09:44; Admin Dose 1 APPLIC; Start 11/20/16 at 21:00 Docusate Sodium 200 mg 200 mg BID GTB Last administered on 11/27/16 09:26; Admin Dose 200 MG; Start 11/21/16 at 21:00 Norepinephrine/ Dextrose (Levophed/D5W) 500 ml @ 0 mls/hr TITRATE IV Last administered on 11/27/16 01:08; Admin Dose 3.75 MLS/HR; Start 11/22/16 at 07:00 Apixaban (Eliquis) 5 mg BID PO Last administered on 11/27/16 09:25; Admin Dose 5 MG; Start 11/22/16 at 21:00 Morphine Sulfate (morphine) 4 mg Q4H PRN IV SEVERE PAIN LEVEL 7-10 Last administered on 11/24/16 00:38; Admin Dose 4 MG; Start 11/23/16 at 15:00 Lorazepam (Ativan) 0.5 mg Q2H PRN IV ANXIETY; Start 11/23/16 at 15:00 Insulin Glargine (Lantus) 25 unit DAILY@08 SC Last administered on 11/27/16 09 :28; Admin Dose 25 UNIT; Start 11/24/16 at 11:00 Insulin Aspart (Novolog Insulin Pen) NOVOLOG *MODERATE* ALGORI... Q4 SC Last administered on 11/27/16 14:00; Admin Dose 4 UNIT; Start 11/24/16 at 13:00 Metronidazole (Flagyl) 500 mg Q8 GTB Last administered on 11/27/16 14:01; Admin Dose 500 MG; Start 11/24/16 at 14:00 Nystatin (Nystatin Susp) 5 ml QID PO Last administered on 11/27/16 14:00; Admin Dose 5 ML; Start 11/24/16 at 13:00 Potassium Chloride 40 meq 40 meq DAILY NGT ; Start 11/25/16 at 09:00; Status Future Hold Vancomycin HCl 1.25 gm/Sodium Chloride 250 ml @ 83.333 mls/ hr Q96H IVPB ; Start 11/30/16 at 18:00 Fentanyl (Sublimaze) 100 ml @ 2.5 mls/hr TITRATE IV Last administered on 10:18; Admin Dose 2.5 MLS/HR; Start 11/27/16 at 10:00 Methylprednisolone Sodium Succinate (Solu-Medrol) 40 mg Q12 IV ; Start 11/27/16 at 21:00 Fluconazole (Diflucan) 100 mg DAILY PO ; Start 11/27/16 at 14:30 CABRERA DOSHI Nov 27, 2016 16:34
[2016-11-27] MEDS: FLUCONAZOLE 100 MG TAB PO SCH (17:56)
[2016-11-27] MEDS: AMIKACIN 475 MG in SOD CHLORIDE 0.9% 100 ML IVPB SCH (17:57)
[2016-11-27] MEDS: FAMOTIDINE 20 MG TAB PO SCH (20:18)
[2016-11-27] MEDS: ATORVASTATIN 10 MG TAB PO SCH (20:18)
--- NOTE | 2016-11-27 21:04 | CONS ---
Date/Time of Note Date/Time of Note DATE: 11/27/16 TIME: 21:02 Assessment/Plan Assessment/Plan Additional Assessment/Plan Pt not making signifiacant progress on present regimen, paul pulm oliva Cont'd Hospitalization Reason: await Dr Peres's plans Consultation Date/Type/Reason Admit Date/Time Nov 17, 2016 at 12:10 Initial Consult Date 11/17/16 Type of Consultation: RENAL Referring Provider: FELIX SCOTT 24 HR Interval Summary Free Text/Dictation Answers questions by shaking his head Exam/Review of Systems Vital Signs Vitals Vital Signs Date Time Temp Pulse Resp B/P Pulse Ox O2 Delivery O2 Flow Rate FiO2 11/27/16 19:30 72 28 99/59 96 11/27/16 19:26 75 11/27/16 19:00 97.8 Mechanical Ventilator Intake and Output 11/26/16 11/26/16 11/27/16 15:00 23:00 07:00 Intake Total 280 ml 838.35 ml 1062.77 ml Output Total 0 ml 0 ml 3520 ml Balance 280 ml 838.35 ml -2457.23 ml Exam Constitutional: alert, obese, oriented, well developed Psych: nl mood/affect, no complaints Head: atraumatic, normocephalic Eyes: EOMI, PERRL, nl conjunctiva, nl lids, nl sclera ENMT: nl external ears & nose, nl lips & teeth, nl nasal mucosa & septum Neck: non-tender, supple Respiratory: clear to auscultation, normal air movement, other (vent dependanta ) Cardiovascular: nl pulses, regular rate and rhythm Gastrointestinal: distended, nl liver, spleen, non-tender, soft Genitourinary - Male: other (bennett cath) Musculoskeletal: nl extremities to inspection, nl gait and stance Extremities: normal pulses 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: 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, nl mental status, nl speech, nl strength Skin: nl turgor, No rash or lesions Lymph: nl lymph nodes Results Result Diagram: 11/27/16 0320 11/27/16 0320 Results 24 hrs Laboratory Tests Test 11/27/16 01:04 11/27/16 03:20 11/27/16 05:46 11/27/16 07:00 Bedside Glucose 227 H 228 H Albumin 2.8 L Anion Gap 20 H Blood Urea Nitrogen 103 H Calcium Level 8.0 L Carbon Dioxide Level 26 Chloride Level 100 Creatinine 4.35 #H Glucose Level 239 H Hematocrit 33.7 L Hemoglobin 10.3 L Lymphocytes # 0.6 L Lymphocytes % 3.0 L Mean Corpuscular Hemoglobin 24.1 L Mean Corpuscular Hemoglobin Concent 30.6 L Mean Corpuscular Volume 78.9 L Mean Platelet Volume 10.6 H Monocytes # 0.6 Monocytes % 3.0 Neutrophils # 19.3 H Neutrophils % 94.0 H Phosphorus Level 7.6 #H Platelet Count 198 Platelet Estimate PLT APPEAR ADEQUATE Potassium Level 5.3 H Red Blood Count 4.27 L Red Cell Distribution Width 19.9 H Sodium Level 141 White Blood Count 20.5 H Arterial Blood HCO3 27.4 H Arterial Blood Base Excess 0.1 Arterial Blood Oxygen Saturation 91.7 L Khoi Test ACCEPTAB Arterial Blood Gas Puncture Site Right Radial Arterial Blood Carboxyhemoglobin 0.3 Arterial Blood Date Drawn 11/27/2016 9:40:30 AM Arterial Blood Methemoglobin 0.4 Arterial Blood pCO2 (Temp correct) 56.4 H Arterial Blood pH (Temp corrected) 7.304 L Arterial Blood pO2 (Temp corrected) 68.4 L Blood Gas A-a O2 Differential 406.4 H Blood Gas Actual Respiration Rate 27 Blood Gas Low PEEP Setting 5.0 Blood Gas Modality VENT - AC Blood Gas Notified Time 11/27/2016 9:57:11 AM Blood Gas Notified Whom JLD Blood Gas Respiration Rate 26.0 Blood Gas Specimen Source Blood arterial Blood Gas Temperature 37.0 Blood Gas Tidal Volume 500.0 FiO2 75.0 Oxyhemoglobin Percent 91.1 L Total Hemoglobin 12.3 Test 11/27/16 09:12 11/27/16 14:00 11/27/16 17:53 11/27/16 20:30 Bedside Glucose 203 217 215 184 Medications Medications Current Medications Ondansetron HCl (Zofran Inj) 4 mg Q6H PRN IV NAUSEA AND/OR VOMITING; Start 11/17 at 11:00 Acetaminophen/ Hydrocodone Bitart ([place] (5/325)) 1 tab Q6H PRN PO MODERATE PAIN LEVEL 4-6; Start 11/17/16 at 11:00 Magnesium Hydroxide (Milk Of Mag) 30 ml DAILY PRN PO CONSTIPATION; Start at 11:00 Sodium Biphosphate/ Sodium Phosphate (Fleet Enema) 133 ml DAILY PRN [place] CONSTIPATION; Start 11/17/16 at 11:00 Hydralazine HCl (Apresoline) 10 mg Q6H PRN IV ELEVATED BLOOD PRESSURE; Start at 11:00 Nitroglycerin (Nitroglycerin (Sl Tab) 0.4 Mg) 1 tab Q5M PRN SL ANGINA; Start at 11:00 Acetaminophen (Tylenol Tab) 650 mg Q6H PRN PO PAIN LEVEL 1-5; Start 11/17/16 at 11:00 Allopurinol (Zyloprim) 100 mg DAILY PO Last administered on 11/27/16 09:25; Admin Dose 100 MG; Start 11/18/16 at 09:00 Aspirin (Halfprin) 81 mg DAILY PO Last administered on 11/26/16 08:50; Admin Dose 81 MG; Start 11/18/16 at 09:00 Atorvastatin Calcium (Lipitor) 10 mg QHS PO Last administered on 11/27/16 20: 18; Admin Dose 10 MG; Start 11/17/16 at 21:00 Famotidine (Pepcid) 20 mg Q24H PO Last administered on 11/27/16 20:18; Admin Dose 20 MG; Start 11/17/16 at 21:00 Lactobacillus Acidoph/Bulgaricus (Floranex) 1 tab TID PO Last administered on 20:17; Admin Dose 1 TAB; Start 11/17/16 at 13:00 Lorazepam (Ativan) 0.5 mg Q6 PRN PO ANXIETY Last administered on 11/18/16 11:04 ; Admin Dose 0.5 MG; Start 11/17/16 at 11:00 Fish Oil (Fish Oil) 1,000 mg DAILY PO Last administered on 11/27/16 09:25; Admin Dose 1,000 MG; Start 11/18/16 at 09:00 Pyridoxine HCl (Vitamin B6) 100 mg DAILY PO Last administered on 11/27/16 09: 25; Admin Dose 100 MG; Start 11/18/16 at 09:00 Simethicone (Mylicon) 80 mg Q6H PRN PO INTESTINAL SPASMS/CRAMPING; Start at 11:00 Vitamin E (Vitamin E) 400 units DAILY PO Last administered on 11/27/16 09:25; Admin Dose 400 UNITS; Start 11/18/16 at 09:00 Zolpidem Tartrate (Ambien) 10 mg QHS PRN PO INSOMNIA; Start 11/17/16 at 11:00 Al Hydrox/Mg Hydrox/Simethicone (Mag-Al Plus) 10 ml Q6 PRN PO DISTENSION/GAS/ BLOATING; Start 11/17/16 at 11:00 Vancomycin HCl (Vanco Iv Per Pharmacy) PER PHARMACY DOSING NOTE XX ; Start at 11:30 Miscellaneous Information 1 ea NOTE XX ; Start 11/17/16 at 11:30 Glucose (Glutose) 15 gm Q15M PRN PO DECREASED GLUCOSE; Start 11/17/16 at 11:30 Glucose (Glutose) 22.5 gm Q15M PRN PO DECREASED GLUCOSE; Start 11/17/16 at 11:30 Dextrose (D50w Syringe) 25 ml Q15M PRN IV DECREASED GLUCOSE Last administered on 11/20/16 02:28; Admin Dose 25 ML; Start 11/17/16 at 11:30 Dextrose (D50w Syringe) 50 ml Q15M PRN IV DECREASED GLUCOSE; Start 11/17/16 at 11:30 Glucagon (Glucagen) 1 mg Q15M PRN IM DECREASED GLUCOSE Last administered on 11/19 21:43; Admin Dose 1 MG; Start 11/17/16 at 11:30 Glucose (Glutose) 15 gm Q15M PRN BUCCAL DECREASED GLUCOSE; Start 11/17/16 at 11: 30 Guaifenesin (Robitussin Liquid Cup) 200 mg Q4H PRN PO COUGH; Start 11/17/16 at 16:00 Phenol (Cepastat Lozenge) 1 lozenge Q1H PRN [place] cough; Start 11/17/16 at 16:00 Bisacodyl (Dulcolax Supp) 10 mg Q24H PRN [place] CONSTIPATION; Start 11/17/16 at 16: 30 Cholecalciferol (Vitamin D) 1,000 unit DAILY PO Last administered on 11/27/16 09:25; Admin Dose 1,000 UNIT; Start 11/18/16 at 09:00 Diphenhydramine HCl (Benadryl) 25 mg BID PRN PO ITCHING; Start 11/17/16 at 16:30 Multivitamins Therapeutic (Theragran) 1 tab DAILY PO Last administered on 09:25; Admin Dose 1 TAB; Start 11/18/16 at 09:00 Zinc Sulfate 220 mg 220 mg DAILY PO Last administered on 11/27/16 09:25; Admin Dose 220 MG; Start 11/18/16 at 09:00 Propofol (Diprivan) 100 ml @ 3.96 mls/hr Q12H IV Last administered on 17:17; Admin Dose 11.88 MLS/HR; Start 11/18/16 at 12:30 Ferrous Sulfate (Feosol Liquid Cup) 300 mg BID GTB Last administered on 20:17; Admin Dose 300 MG; Start 11/18/16 at 21:00 Acetaminophen (Tylenol Liquid) 650 mg Q6 PRN NGT PAIN AND OR ELEVATED TEMP Last administered on 11/19/16 18:41; Admin Dose 650 MG; Start 11/19/16 at 03:30 Amikacin Sulfate (Amikacin Iv Per Pharmacy) AMIKACIN PER PHARMACY NOTE XX ; Start 11/20/16 at 11:30 Nystatin/ Triamcinolone Acetonide (Mycolog Oint) 1 applic BID TOP Last administered on 11/27/16 20:18; Admin Dose 1 APPLIC; Start 11/20/16 at 21:00 Docusate Sodium 200 mg 200 mg BID GTB Last administered on 11/27/16 20:17; Admin Dose 200 MG; Start 11/21/16 at 21:00 Norepinephrine/ Dextrose (Levophed/D5W) 500 ml @ 0 mls/hr TITRATE IV Last administered on 11/27/16 01:08; Admin Dose 3.75 MLS/HR; Start 11/22/16 at 07:00 Apixaban (Eliquis) 5 mg BID PO Last administered on 11/27/16 20:18; Admin Dose 5 MG; Start 11/22/16 at 21:00 Morphine Sulfate (morphine) 4 mg Q4H PRN IV SEVERE PAIN LEVEL 7-10 Last administered on 11/24/16 00:38; Admin Dose 4 MG; Start 11/23/16 at 15:00 Lorazepam (Ativan) 0.5 mg Q2H PRN IV ANXIETY; Start 11/23/16 at 15:00 Insulin Glargine (Lantus) 25 unit DAILY@08 SC Last administered on 11/27/16 09 :28; Admin Dose 25 UNIT; Start 11/24/16 at 11:00 Insulin Aspart (Novolog Insulin Pen) NOVOLOG *MODERATE* ALGORI... Q4 SC Last administered on 11/27/16 20:38; Admin Dose 4 UNIT; Start 11/24/16 at 13:00 Metronidazole (Flagyl) 500 mg Q8 GTB Last administered on 11/27/16 14:01; Admin Dose 500 MG; Start 11/24/16 at 14:00 Nystatin (Nystatin Susp) 5 ml QID PO Last administered on 11/27/16 20:17; Admin Dose 5 ML; Start 11/24/16 at 13:00 Potassium Chloride 40 meq 40 meq DAILY NGT ; Start 11/25/16 at 09:00; Status Future Hold Vancomycin HCl 1.25 gm/Sodium Chloride 250 ml @ 83.333 mls/ hr Q96H IVPB ; Start 11/30/16 at 18:00 Fentanyl (Sublimaze) 100 ml @ 2.5 mls/hr TITRATE IV Last administered on 10:18; Admin Dose 2.5 MLS/HR; Start 11/27/16 at 10:00 Methylprednisolone Sodium Succinate (Solu-Medrol) 40 mg Q12 IV Last administered on 11/27/16 20:17; Admin Dose 40 MG; Start 11/27/16 at 21:00 Fluconazole (Diflucan) 100 mg DAILY PO Last administered on 11/27/16 17:56; Admin Dose 100 MG; Start 11/27/16 at 14:30 ALONSO MARTINEZ MD Nov 27, 2016 21:04
[2016-11-28] VITALS (86 sets, daily range): BP systolic 81–156; BP diastolic 49–82; PULSE 78–104; RESP 16–32
[2016-11-28] MEDS: ALBUTEROL HFA 8 GM INHALER INH SCH ×6 (01:13→21:18)
[2016-11-28] MEDS: INSULIN ASPART [NOVOLOG] 3 ML PEN SC SCH ×6 (01:26→21:00)
[2016-11-28] MEDS: FENTAnyl (DRIP) 1000 mcg/100mL 100 ML IV SCH (04:25)
[2016-11-28 04:44] LABS: ADD SCAN DIFF NO
[2016-11-28 04:48] LABS: ABNORMAL IP MESSAGE 1; HEMATOCRIT 32.1 % (42.0-52.0); HEMOGLOBIN 9.9 g/dl (14.0-18.0); MEAN CORPUSCULAR HEMOGLOBIN 24.4 pg (29.0-33.0); MEAN CORPUSCULAR HGB CONC 30.8 g/dl (32.0-37.0); MEAN CORPUSCULAR VOLUME 79.3 fl (82.0-101.0); MEAN PLATELET VOLUME 10.7 fl (7.4-10.4); PLATELET COUNT 215 10^3/UL (140-415); RED BLOOD COUNT 4.05 10^6/ul (4.70-6.10); RED CELL DISTRIBUTION WIDTH 19.9 % (11.5-14.5); WHITE BLOOD COUNT 29.7 10^3/ul (4.8-10.8)
[2016-11-28 05:26] LABS: POTASSIUM 4.6 mmol/L (3.5-5.1)
[2016-11-28 05:29] LABS: CREATININE 3.83 mg/dl (0.61-1.24)
[2016-11-28] MEDS: PROPOFOL 100 ML IV SCH (06:28)
[2016-11-28] MEDS: metroNIDAZOLE 500 MG TAB GTB SCH ×3 (06:28→21:00)
[2016-11-28] MEDS ORDERED: CA CHLORIDE 10% 10 ML SYRINGE ONE (07:00)
[2016-11-28] MEDS ORDERED: EPINEPHrine 0.1 MG/ML SYG ONE (07:00)
[2016-11-28] MEDS ORDERED: MAGNESIUM SULFATE 1 GM/100 ML D5W IVPB ONE (07:00)
[2016-11-28] MEDS ORDERED: NA BICARBONATE 8.4% 50 ML SYG ONE (07:00)
[2016-11-28] MEDS: SEVELAMER CARBONATE 0.8 GM PKT PO SCH ×3 (08:35→17:26)
[2016-11-28] MEDS: INSULIN GLARGINE [LANtus] 3 ML PEN SC SCH (08:41)
[2016-11-28] MEDS: APIXABAN 5 MG TABLET PO SCH ×2 (08:55→20:48)
[2016-11-28] MEDS: PYRIDOXINE 50 MG TAB PO SCH (08:56)
[2016-11-28] MEDS: LACTOBACILLUS CHEW TAB PO SCH ×3 (08:56→20:48)
[2016-11-28] MEDS: NYSTATIN SUSP 5 ML CUP PO SCH ×4 (08:56→20:48)
[2016-11-28] MEDS: METHYLPREDNISOLONE 40 MG INJ IV SCH ×2 (08:56→20:48)
[2016-11-28] MEDS: FERROUS SULFATE 60 MG/ML 5ML CUP GTB SCH ×2 (08:57→20:48)
[2016-11-28] MEDS: FLUCONAZOLE 100 MG TAB PO SCH (08:57)
[2016-11-28] MEDS: ZINC SULFATE 220 MG CAP PO SCH (08:57)
[2016-11-28] MEDS: ALLOPURINOL 100 MG TAB PO SCH (08:57)
[2016-11-28] MEDS: DOCUSATE SODIUM 10 MG/ML (10ML CUP) GTB SCH ×2 (08:57→20:48)
[2016-11-28] MEDS: CHOLECALCIFEROL 1,000 UNIT TAB PO SCH (08:58)
[2016-11-28] MEDS: FISH OIL 1,000 MG CAP PO SCH (08:58)
[2016-11-28] MEDS: MULTIVITAMINS THERAPEUTIC TAB PO SCH (08:58)
[2016-11-28] MEDS: NYSTATIN/TRIAMCINOLONE 15 GM OINT TOP SCH ×2 (08:58→20:49)
[2016-11-28] MEDS: VITAMIN E 400 UNITS CAP PO SCH (08:59)
[2016-11-28] MEDS: ASPIRIN (EC) 81 MG TAB PO SCH (08:59)
[2016-11-28 10:37] LABS: LYMPHOCYTES # 0.3 10^3/ul (0.8-2.9); MONOCYTE # 1.2 10^3/ul (0.3-0.9); NEUTROPHIL # 27.9 10^3/ul (1.6-7.5)
--- NOTE | 2016-11-28 11:02 | PN ---
DATE: 11/28/2016 SUBJECTIVE: Patient Rui continues mechanical ventilation. He had desaturation yesterday requiring FIO2 of 100%. PHYSICAL EXAMINATION: VITAL SIGNS: Temperature 98, pulse 90, blood pressure 90/50, O2 saturation 96% on FiO2. On examina tion, elderly gentleman, intubated on mechanical ventilation. HEENT: Pupils equal and react to light. Dry mucous membranes. CARDIAC: S1, S2, no added sounds or murmurs. CHEST: Diminished air entry bilaterally. ABDOMEN: Soft, nontender. No guarding or rebound. EXTREMITIES: No cyanosis, clubbing or edema. NEUROLOGIC: Generalized weakness. LABORATORY DATA: White count 29.7, hemoglobin 9.9, platelets of 215. BUN 97, creatinine 2.83. IMAGING: Chest x-ray was reviewed, shows ongoing vascular congestion. IMPRESSION AND PLAN: 1. Hypoxemic respiratory failure. 2. Likely acute respiratory distress syndrome. 3. Prior history of tracheostomy. 4. End-stage renal failure on hemodialysis. 5. Peripheral vascular disease. Patient will need to continue mechanical ventilation. 6. At this point, does not look like he will be coming off the ventilator and I will discuss trache ostomy again with family as we discussed yesterday. I do not think patient is competent to make dec isions regarding his care at present. If they wish to continue current level of care, then tracheos long would be appropriate. Overall prognosis however, remains guarded. CRITICAL CARE TIME: 40 minutes. Dictated By: EDNA COLINDRES/GREGORY Conf#: [id number] DID#: [id number]
--- NOTE | 2016-11-28 12:06 | CONS ---
Date/Time of Note Date/Time of Note DATE: 11/28/16 TIME: 12:04 Assessment/Plan Assessment/Plan Chief Complaint/Hosp Course SUBJECTIVE: No acute changes. The patient is lying comfortably in bed. No fevers. MICROBIOLOGY: Blood cultures since November 23 remain negative. Sputum cx + GNR ANTIMICROBIALS: The patient is on IV vancomycin, Flagyl, Diflucan and amikacin. INDWELLINGS: Endotracheal tube, NG tube, left IJ triple lumen catheter, right subclavian Perm-A-Cath, Higgins catheter. DIAGNOSTICS: Chest x-ray revealed no significant changes. PHYSICAL EXAMINATION: GENERAL: This is a chronically ill-appearing, morbidly obese, middle-aged man who is lying comfortably in bed. Patient is sedated. HEENT: Head atraumatic, normocephalic. Sclerae anicteric. Buccal mucosa dry. NECK: Supple, trachea midline. CHEST: Rise symmetrical. Breath sounds diminished to bases. HEART: S1, S2. ABDOMEN: Soft. Bowel tones present. EXTREMITIES: With bilateral edema. Patient has bilateral lower extremity excoriation and left great toe wound. ASSESSMENT: 1. Septic shock. 2. Healthcare-associated pneumonia, possibly aspiration event. 3. Acute respiratory failure. 4. Pulmonary edema. 5. Left great toe chronic wound, possible osteomyelitis. 6. End-stage renal disease, hemodialysis dependent. 7. Diabetes. 8. Diarrhea, on empiric Flagyl. PLAN: The patient remains unchanged, with persistent leukocytosis, steroids being tapered down. Will change Amikacin to Colistin, f/u sputum cx. Follow recommendations of consultants. Continue abx [facility] staff Problems: Consultation Date/Type/Reason Admit Date/Time Nov 17, 2016 at 12:10 Initial Consult Date 11/17/16 Type of Consultation: ID Referring Provider: FELIX SCOTT Exam/Review of Systems Vital Signs Vitals Vital Signs Date Time Temp Pulse Resp B/P Pulse Ox O2 Delivery O2 Flow Rate FiO2 11/28/16 08:00 90 11/28/16 06:00 29 89/55 96 Mechanical Ventilator 11/28/16 05:33 100 11/28/16 04:00 97.8 Intake and Output 11/27/16 11/27/16 11/28/16 15:00 23:00 07:00 Intake Total 543.80 ml 653.21 ml 458.14 ml Output Total 3000 ml 0 ml Balance -2456.20 ml 653.21 ml 458.14 ml Results Result Diagram: 11/28/16 0430 11/28/16 0430 Results 24 hrs Laboratory Tests Test 11/27/16 14:00 11/27/16 17:53 11/27/16 20:30 11/28/16 01:24 Bedside Glucose 217 215 184 213 Test 11/28/16 04:30 11/28/16 05:13 11/28/16 08:10 Anion Gap 20 H Band Neutrophils % 1.0 Basophils # Basophils % Blood Urea Nitrogen 97 H Calcium Level 8.0 L Carbon Dioxide Level 25 Chloride Level 102 Creatinine 3.83 H Eosinophils # Eosinophils % Glucose Level 179 Hematocrit 32.1 L Hemoglobin 9.9 L Lymphocytes # 0.3 L Lymphocytes % 1.0 L Mean Corpuscular Hemoglobin 24.4 L Mean Corpuscular Hemoglobin Concent 30.8 L Mean Corpuscular Volume 79.3 L Mean Platelet Volume 10.7 H Monocytes # 1.2 H Monocytes % 4.0 Neutrophils # 27.9 H Neutrophils % 94.0 H Nucleated Red Blood Cells # Nucleated Red Blood Cells % Platelet Count 215 Potassium Level 4.6 Red Blood Count 4.05 L Red Cell Distribution Width 19.9 H Sodium Level 142 White Blood Count 29.7 #H Bedside Glucose 177 157 Medications Medications Current Medications Ondansetron HCl (Zofran Inj) 4 mg Q6H PRN IV NAUSEA AND/OR VOMITING; Start 11/17 at 11:00 Acetaminophen/ Hydrocodone Bitart ([place] (5/325)) 1 tab Q6H PRN PO MODERATE PAIN LEVEL 4-6; Start 11/17/16 at 11:00 Magnesium Hydroxide (Milk Of Mag) 30 ml DAILY PRN PO CONSTIPATION; Start at 11:00 Sodium Biphosphate/ Sodium Phosphate (Fleet Enema) 133 ml DAILY PRN [place] CONSTIPATION; Start 11/17/16 at 11:00 Hydralazine HCl (Apresoline) 10 mg Q6H PRN IV ELEVATED BLOOD PRESSURE; Start at 11:00 Nitroglycerin (Nitroglycerin (Sl Tab) 0.4 Mg) 1 tab Q5M PRN SL ANGINA; Start at 11:00 Acetaminophen (Tylenol Tab) 650 mg Q6H PRN PO PAIN LEVEL 1-5; Start 11/17/16 at 11:00 Allopurinol (Zyloprim) 100 mg DAILY PO Last administered on 11/28/16 08:57; Admin Dose 100 MG; Start 11/18/16 at 09:00 Aspirin (Halfprin) 81 mg DAILY PO Last administered on 11/26/16 08:50; Admin Dose 81 MG; Start 11/18/16 at 09:00 Atorvastatin Calcium (Lipitor) 10 mg QHS PO Last administered on 11/27/16 20: 18; Admin Dose 10 MG; Start 11/17/16 at 21:00 Famotidine (Pepcid) 20 mg Q24H PO Last administered on 11/27/16 20:18; Admin Dose 20 MG; Start 11/17/16 at 21:00 Lactobacillus Acidoph/Bulgaricus (Floranex) 1 tab TID PO Last administered on 08:56; Admin Dose 1 TAB; Start 11/17/16 at 13:00 Lorazepam (Ativan) 0.5 mg Q6 PRN PO ANXIETY Last administered on 11/18/16 11:04 ; Admin Dose 0.5 MG; Start 11/17/16 at 11:00 Fish Oil (Fish Oil) 1,000 mg DAILY PO Last administered on 11/28/16 08:58; Admin Dose 1,000 MG; Start 11/18/16 at 09:00 Pyridoxine HCl (Vitamin B6) 100 mg DAILY PO Last administered on 11/28/16 08: 56; Admin Dose 100 MG; Start 11/18/16 at 09:00 Simethicone (Mylicon) 80 mg Q6H PRN PO INTESTINAL SPASMS/CRAMPING; Start at 11:00 Vitamin E (Vitamin E) 400 units DAILY PO Last administered on 11/28/16 08:59; Admin Dose 400 UNITS; Start 11/18/16 at 09:00 Zolpidem Tartrate (Ambien) 10 mg QHS PRN PO INSOMNIA; Start 11/17/16 at 11:00 Al Hydrox/Mg Hydrox/Simethicone (Mag-Al Plus) 10 ml Q6 PRN PO DISTENSION/GAS/ BLOATING; Start 11/17/16 at 11:00 Vancomycin HCl (Vanco Iv Per Pharmacy) PER PHARMACY DOSING NOTE XX ; Start at 11:30 Miscellaneous Information 1 ea NOTE XX ; Start 11/17/16 at 11:30 Glucose (Glutose) 15 gm Q15M PRN PO DECREASED GLUCOSE; Start 11/17/16 at 11:30 Glucose (Glutose) 22.5 gm Q15M PRN PO DECREASED GLUCOSE; Start 11/17/16 at 11:30 Dextrose (D50w Syringe) 25 ml Q15M PRN IV DECREASED GLUCOSE Last administered on 11/20/16 02:28; Admin Dose 25 ML; Start 11/17/16 at 11:30 Dextrose (D50w Syringe) 50 ml Q15M PRN IV DECREASED GLUCOSE; Start 11/17/16 at 11:30 Glucagon (Glucagen) 1 mg Q15M PRN IM DECREASED GLUCOSE Last administered on 11/19 21:43; Admin Dose 1 MG; Start 11/17/16 at 11:30 Glucose (Glutose) 15 gm Q15M PRN BUCCAL DECREASED GLUCOSE; Start 11/17/16 at 11: 30 Guaifenesin (Robitussin Liquid Cup) 200 mg Q4H PRN PO COUGH; Start 11/17/16 at 16:00 Phenol (Cepastat Lozenge) 1 lozenge Q1H PRN [place] cough; Start 11/17/16 at 16:00 Bisacodyl (Dulcolax Supp) 10 mg Q24H PRN [place] CONSTIPATION; Start 11/17/16 at 16: 30 Cholecalciferol (Vitamin D) 1,000 unit DAILY PO Last administered on 11/28/16 08:58; Admin Dose 1,000 UNIT; Start 11/18/16 at 09:00 Diphenhydramine HCl (Benadryl) 25 mg BID PRN PO ITCHING; Start 11/17/16 at 16:30 Multivitamins Therapeutic (Theragran) 1 tab DAILY PO Last administered on 08:58; Admin Dose 1 TAB; Start 11/18/16 at 09:00 Zinc Sulfate 220 mg 220 mg DAILY PO Last administered on 11/28/16 08:57; Admin Dose 220 MG; Start 11/18/16 at 09:00 Propofol (Diprivan) 100 ml @ 3.96 mls/hr Q12H IV Last administered on 06:28; Admin Dose 11.88 MLS/HR; Start 11/18/16 at 12:30 Ferrous Sulfate (Feosol Liquid Cup) 300 mg BID GTB Last administered on 08:57; Admin Dose 300 MG; Start 11/18/16 at 21:00 Acetaminophen (Tylenol Liquid) 650 mg Q6 PRN NGT PAIN AND OR ELEVATED TEMP Last administered on 11/19/16 18:41; Admin Dose 650 MG; Start 11/19/16 at 03:30 Amikacin Sulfate (Amikacin Iv Per Pharmacy) AMIKACIN PER PHARMACY NOTE XX ; Start 11/20/16 at 11:30 Nystatin/ Triamcinolone Acetonide (Mycolog Oint) 1 applic BID TOP Last administered on 11/28/16 08:58; Admin Dose 1 APPLIC; Start 11/20/16 at 21:00 Docusate Sodium 200 mg 200 mg BID GTB Last administered on 11/28/16 08:57; Admin Dose 200 MG; Start 11/21/16 at 21:00 Norepinephrine/ Dextrose (Levophed/D5W) 500 ml @ 0 mls/hr TITRATE IV Last administered on 11/27/16 01:08; Admin Dose 3.75 MLS/HR; Start 11/22/16 at 07:00 Apixaban (Eliquis) 5 mg BID PO Last administered on 11/28/16 08:55; Admin Dose 5 MG; Start 11/22/16 at 21:00 Morphine Sulfate (morphine) 4 mg Q4H PRN IV SEVERE PAIN LEVEL 7-10 Last administered on 11/24/16 00:38; Admin Dose 4 MG; Start 11/23/16 at 15:00 Lorazepam (Ativan) 0.5 mg Q2H PRN IV ANXIETY; Start 11/23/16 at 15:00 Insulin Glargine (Lantus) 25 unit DAILY@08 SC Last administered on 11/28/16 08 :41; Admin Dose 25 UNIT; Start 11/24/16 at 11:00 Insulin Aspart (Novolog Insulin Pen) NOVOLOG *MODERATE* ALGORI... Q4 SC Last administered on 11/28/16 08:42; Admin Dose 2 UNIT; Start 11/24/16 at 13:00 Metronidazole (Flagyl) 500 mg Q8 GTB Last administered on 11/28/16 06:28; Admin Dose 500 MG; Start 11/24/16 at 14:00 Nystatin (Nystatin Susp) 5 ml QID PO Last administered on 11/28/16 08:56; Admin Dose 5 ML; Start 11/24/16 at 13:00 Potassium Chloride 40 meq 40 meq DAILY NGT ; Start 11/25/16 at 09:00; Status Future Hold Vancomycin HCl 1.25 gm/Sodium Chloride 250 ml @ 83.333 mls/ hr Q96H IVPB ; Start 11/30/16 at 18:00 Fentanyl (Sublimaze) 100 ml @ 2.5 mls/hr TITRATE IV Last administered on 04:25; Admin Dose 5 MLS/HR; Start 11/27/16 at 10:00 Methylprednisolone Sodium Succinate (Solu-Medrol) 40 mg Q12 IV Last administered on 11/28/16 08:56; Admin Dose 40 MG; Start 11/27/16 at 21:00 Fluconazole (Diflucan) 100 mg DAILY PO Last administered on 11/28/16 08:57; Admin Dose 100 MG; Start 11/27/16 at 14:30 JAMEY VAZQUEZ NP Nov 28, 2016 12:06
--- NOTE | 2016-11-28 13:58 | PN ---
Date/Time of Note Date/Time of Note DATE: 11/28/16 TIME: 13:54 Assessment/Plan VTE Prophylaxis VTE Prophylaxis Intervention: other Lines/Catheters IV Catheter Type (from Nrsg): PERMACATH Assessment/Plan Chief Complaint/Hosp Course 1. Acute respiratory failure secondary to fluid overload and Pneumonia Continue hemodialysis per nephrology Continue antibiotics per ID Pulmonology on the case, continue vent support, continue steroids, patient may need trach, family conference held yesterday to discuss trach placement and family would like to speak to patient about this as he has been trached in the past and has stated that he did not want to be trached again, plan is to decrease sedation and attempt to ask patient himself 2. Pancytopenia with microcytosis: mild iron deficiency noted 3. Septic shock likely secondary to Multifocal Pneumonia Continue pressor support and antibiotics 4. ESRD on HD HD per crnp 5. Morbid obesity / cannot r/o OHS 6. COPD with chronic lung disease and History of multiple previous respiratory failure and tracheostomy in the past. 7. HTN > hypotensive 2/2 sepsis 8. Paroxysmal Afib currently in sinus 9. DM2 with steroid induced hyperglycemia 10. Pulmonary lymphadenopathy: reactive versus neoplastic Pulmonology on the case 11. LE cellulitis with Chronic foot ulcer and hx of osteomyelitis: improving 12. Debility Prophylaxis: Eliquis Problems: Subjective 24 Hr Interval Summary Subjective hx not possible: pt non-verbal Exam/Review of Systems Vital Signs Vitals Vital Signs Date Time Temp Pulse Resp B/P Pulse Ox O2 Delivery O2 Flow Rate FiO2 11/28/16 12:16 88 31 95 100 11/28/16 06:00 89/55 Mechanical Ventilator 11/28/16 04:00 97.8 Intake and Output 11/27/16 11/27/16 11/28/16 15:00 23:00 07:00 Intake Total 543.80 ml 653.21 ml 458.14 ml Output Total 3000 ml 0 ml Balance -2456.20 ml 653.21 ml 458.14 ml Exam Constitutional: non-verbal ENMT: intubated Respiratory: clear to auscultation Cardiovascular: regular rate and rhythm Gastrointestinal: soft, No distended Musculoskeletal: No nl extremities to inspection Results Result Diagram: 11/28/16 0430 11/28/16 0430 Results 24 hrs Laboratory Tests Test 11/27/16 14:00 11/27/16 17:53 11/27/16 20:30 11/28/16 01:24 Bedside Glucose 217 215 184 213 Test 11/28/16 04:30 11/28/16 05:13 11/28/16 08:10 11/28/16 13:09 Anion Gap 20 H Band Neutrophils % 1.0 Basophils # Basophils % Blood Urea Nitrogen 97 H Calcium Level 8.0 L Carbon Dioxide Level 25 Chloride Level 102 Creatinine 3.83 H Eosinophils # Eosinophils % Glucose Level 179 Hematocrit 32.1 L Hemoglobin 9.9 L Lymphocytes # 0.3 L Lymphocytes % 1.0 L Mean Corpuscular Hemoglobin 24.4 L Mean Corpuscular Hemoglobin Concent 30.8 L Mean Corpuscular Volume 79.3 L Mean Platelet Volume 10.7 H Monocytes # 1.2 H Monocytes % 4.0 Neutrophils # 27.9 H Neutrophils % 94.0 H Nucleated Red Blood Cells # Nucleated Red Blood Cells % Platelet Count 215 Potassium Level 4.6 Red Blood Count 4.05 L Red Cell Distribution Width 19.9 H Sodium Level 142 White Blood Count 29.7 #H Bedside Glucose 177 157 200 Medications Medications Current Medications Ondansetron HCl (Zofran Inj) 4 mg Q6H PRN IV NAUSEA AND/OR VOMITING; Start 11/17 at 11:00 Acetaminophen/ Hydrocodone Bitart ([place] (5/325)) 1 tab Q6H PRN PO MODERATE PAIN LEVEL 4-6; Start 11/17/16 at 11:00 Magnesium Hydroxide (Milk Of Mag) 30 ml DAILY PRN PO CONSTIPATION; Start at 11:00 Sodium Biphosphate/ Sodium Phosphate (Fleet Enema) 133 ml DAILY PRN [place] CONSTIPATION; Start 11/17/16 at 11:00 Hydralazine HCl (Apresoline) 10 mg Q6H PRN IV ELEVATED BLOOD PRESSURE; Start at 11:00 Nitroglycerin (Nitroglycerin (Sl Tab) 0.4 Mg) 1 tab Q5M PRN SL ANGINA; Start at 11:00 Acetaminophen (Tylenol Tab) 650 mg Q6H PRN PO PAIN LEVEL 1-5; Start 11/17/16 at 11:00 Allopurinol (Zyloprim) 100 mg DAILY PO Last administered on 11/28/16t 08:57; Admin Dose 100 MG; Start 11/18/16 at 09:00 Aspirin (Halfprin) 81 mg DAILY PO Last administered on 11/26/16 08:50; Admin Dose 81 MG; Start 11/18/16 at 09:00 Atorvastatin Calcium (Lipitor) 10 mg QHS PO Last administered on 11/27/16 20: 18; Admin Dose 10 MG; Start 11/17/16 at 21:00 Famotidine (Pepcid) 20 mg Q24H PO Last administered on 11/27/16 20:18; Admin Dose 20 MG; Start 11/17/16 at 21:00 Lactobacillus Acidoph/Bulgaricus (Floranex) 1 tab TID PO Last administered on 13:48; Admin Dose 1 TAB; Start 11/17/16 at 13:00 Lorazepam (Ativan) 0.5 mg Q6 PRN PO ANXIETY Last administered on 11/18/16 11:04 ; Admin Dose 0.5 MG; Start 11/17/16 at 11:00 Fish Oil (Fish Oil) 1,000 mg DAILY PO Last administered on 11/28/16 08:58; Admin Dose 1,000 MG; Start 11/18/16 at 09:00 Pyridoxine HCl (Vitamin B6) 100 mg DAILY PO Last administered on 11/28/16 08: 56; Admin Dose 100 MG; Start 11/18/16 at 09:00 Simethicone (Mylicon) 80 mg Q6H PRN PO INTESTINAL SPASMS/CRAMPING; Start at 11:00 Vitamin E (Vitamin E) 400 units DAILY PO Last administered on 11/28/16 08:59; Admin Dose 400 UNITS; Start 11/18/16 at 09:00 Zolpidem Tartrate (Ambien) 10 mg QHS PRN PO INSOMNIA; Start 11/17/16 at 11:00 Al Hydrox/Mg Hydrox/Simethicone (Mag-Al Plus) 10 ml Q6 PRN PO DISTENSION/GAS/ BLOATING; Start 11/17/16 at 11:00 Vancomycin HCl (Vanco Iv Per Pharmacy) PER PHARMACY DOSING NOTE XX ; Start at 11:30 Miscellaneous Information 1 ea NOTE XX ; Start 11/17/16 at 11:30 Glucose (Glutose) 15 gm Q15M PRN PO DECREASED GLUCOSE; Start 11/17/16 at 11:30 Glucose (Glutose) 22.5 gm Q15M PRN PO DECREASED GLUCOSE; Start 11/17/16 at 11:30 Dextrose (D50w Syringe) 25 ml Q15M PRN IV DECREASED GLUCOSE Last administered on 11/20/16 02:28; Admin Dose 25 ML; Start 11/17/16 at 11:30 Dextrose (D50w Syringe) 50 ml Q15M PRN IV DECREASED GLUCOSE; Start 11/17/16 at 11:30 Glucagon (Glucagen) 1 mg Q15M PRN IM DECREASED GLUCOSE Last administered on 11/19 21:43; Admin Dose 1 MG; Start 11/17/16 at 11:30 Glucose (Glutose) 15 gm Q15M PRN BUCCAL DECREASED GLUCOSE; Start 11/17/16 at 11: 30 Guaifenesin (Robitussin Liquid Cup) 200 mg Q4H PRN PO COUGH; Start 11/17/16 at 16:00 Phenol (Cepastat Lozenge) 1 lozenge Q1H PRN MT cough; Start 11/17/16 at 16:00 Bisacodyl (Dulcolax Supp) 10 mg Q24H PRN [place] CONSTIPATION; Start 11/17/16 at 16: 30 Cholecalciferol (Vitamin D) 1,000 unit DAILY PO Last administered on 11/28/16 08:58; Admin Dose 1,000 UNIT; Start 11/18/16 at 09:00 Diphenhydramine HCl (Benadryl) 25 mg BID PRN PO ITCHING; Start 11/17/16 at 16:30 Multivitamins Therapeutic (Theragran) 1 tab DAILY PO Last administered on 08:58; Admin Dose 1 TAB; Start 11/18/16 at 09:00 Zinc Sulfate 220 mg 220 mg DAILY PO Last administered on 11/28/16 08:57; Admin Dose 220 MG; Start 11/18/16 at 09:00 Propofol (Diprivan) 100 ml @ 3.96 mls/hr Q12H IV Last administered on 06:28; Admin Dose 11.88 MLS/HR; Start 11/18/16 at 12:30 Ferrous Sulfate (Feosol Liquid Cup) 300 mg BID GTB Last administered on 08:57; Admin Dose 300 MG; Start 11/18/16 at 21:00 Acetaminophen (Tylenol Liquid) 650 mg Q6 PRN NGT PAIN AND OR ELEVATED TEMP Last administered on 11/19/16 18:41; Admin Dose 650 MG; Start 11/19/16 at 03:30 Nystatin/ Triamcinolone Acetonide (Mycolog Oint) 1 applic BID TOP Last administered on 11/28/16 08:58; Admin Dose 1 APPLIC; Start 11/20/16 at 21:00 Docusate Sodium 200 mg 200 mg BID GTB Last administered on 11/28/16 08:57; Admin Dose 200 MG; Start 11/21/16 at 21:00 Norepinephrine/ Dextrose (Levophed/D5W) 500 ml @ 0 mls/hr TITRATE IV Last administered on 11/27/16 01:08; Admin Dose 3.75 MLS/HR; Start 11/22/16 at 07:00 Apixaban (Eliquis) 5 mg BID PO Last administered on 11/28/16 08:55; Admin Dose 5 MG; Start 11/22/16 at 21:00 Morphine Sulfate (morphine) 4 mg Q4H PRN IV SEVERE PAIN LEVEL 7-10 Last administered on 11/24/16 00:38; Admin Dose 4 MG; Start 11/23/16 at 15:00 Lorazepam (Ativan) 0.5 mg Q2H PRN IV ANXIETY; Start 11/23/16 at 15:00 Insulin Glargine (Lantus) 25 unit DAILY@08 SC Last administered on 11/28/16 08 :41; Admin Dose 25 UNIT; Start 11/24/16 at 11:00 Insulin Aspart (Novolog Insulin Pen) NOVOLOG *MODERATE* ALGORI... Q4 SC Last administered on 11/28/16 13:50; Admin Dose 4 UNIT; Start 11/24/16 at 13:00 Metronidazole (Flagyl) 500 mg Q8 GTB Last administered on 11/28/16 13:47; Admin Dose 500 MG; Start 11/24/16 at 14:00 Nystatin (Nystatin Susp) 5 ml QID PO Last administered on 11/28/16 13:47; Admin Dose 5 ML; Start 11/24/16 at 13:00 Potassium Chloride 40 meq 40 meq DAILY NGT ; Start 11/25/16 at 09:00; Status Future Hold Vancomycin HCl 1.25 gm/Sodium Chloride 250 ml @ 83.333 mls/ hr Q96H IVPB ; Start 11/30/16 at 18:00 Fentanyl (Sublimaze) 100 ml @ 2.5 mls/hr TITRATE IV Last administered on 04:25; Admin Dose 5 MLS/HR; Start 11/27/16 at 10:00 Methylprednisolone Sodium Succinate (Solu-Medrol) 40 mg Q12 IV Last administered on 11/28/16 08:56; Admin Dose 40 MG; Start 11/27/16 at 21:00 Fluconazole 100 mg 100 mg DAILY PO Last administered on 11/28/16 08:57; Admin Dose 100 MG; Start 11/27/16 at 14:30 Colistimethate Sodium/Sodium Chloride (Coly-Mycin/NS) 100 ml @ 200 mls/hr Q24H IVPB ; Start 11/28/16 at 14:00 CABRERA DOSHI Nov 28, 2016 13:57
[2016-11-28] MEDS: COLISTIMETHATE 75 MG in SOD CHLORIDE 0.9% 100 ML IVPB SCH (14:00)
[2016-11-28] MEDS ORDERED: COLISTIMETHATE 200 MG in SOD CHLORIDE 0.9% 100 ML IVPB SCH (14:00)
--- NOTE | 2016-11-28 14:46 | CONS ---
Date/Time of Note Date/Time of Note DATE: 11/28/16 TIME: 14:43 Assessment/Plan Assessment/Plan Additional Assessment/Plan 61 yo Male with 1) Respiratory failure 2nd to PNA and CHF 2) Volume Overload 3) ESRD on HD MWF 4) Anemia, Chronic, CKD 5) Mineral Bone Disease, CKD 6) Respiratory Acidosis, CO2 Retention with AG Acidosis 7) Type 2 DM 8) Hypotension HD ordered for tomorrow, UF as tolerated Pressors as needed to maintain MAP>65mmHg or SBP >90 Cont current treatment and plan . No change in CXR, still remains on 100%, will likely need Trach Appreciate Pulm Recommendations and paln. Will cont to closely follow along with you Consultation Date/Type/Reason Admit Date/Time Nov 17, 2016 at 12:10 Initial Consult Date 11/17/16 Type of Consultation: Renal Referring Provider: FELIX SCOTT 24 HR Interval Summary Free Text/Dictation Off pressors, Remains intubated. HD Yesterday Subjective hx not possible: pt critical status Constitutional: requiring O2 Exam/Review of Systems Vital Signs Vitals Vital Signs Date Time Temp Pulse Resp B/P Pulse Ox O2 Delivery O2 Flow Rate FiO2 11/28/16 12:16 88 31 95 100 11/28/16 06:00 89/55 Mechanical Ventilator 11/28/16 04:00 97.8 Intake and Output 11/27/16 11/27/16 11/28/16 15:00 23:00 07:00 Intake Total 543.80 ml 653.21 ml 458.14 ml Output Total 3000 ml 0 ml Balance -2456.20 ml 653.21 ml 458.14 ml Exam ENMT: mucosa pink and moist Respiratory: crackles/rales, wheezing Cardiovascular: edema, regular rate and rhythm Gastrointestinal: soft, No rebound or guarding 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: other (sedated) Skin: No diaphoresis Results Result Diagram: 11/28/16 0430 11/28/16 0430 Results 24 hrs Laboratory Tests Test 11/27/16 17:53 11/27/16 20:30 11/28/16 01:24 11/28/16 04:30 Bedside Glucose 215 184 213 Anion Gap 20 H Band Neutrophils % 1.0 Basophils # Basophils % Blood Urea Nitrogen 97 H Calcium Level 8.0 L Carbon Dioxide Level 25 Chloride Level 102 Creatinine 3.83 H Eosinophils # Eosinophils % Glucose Level 179 Hematocrit 32.1 L Hemoglobin 9.9 L Lymphocytes # 0.3 L Lymphocytes % 1.0 L Mean Corpuscular Hemoglobin 24.4 L Mean Corpuscular Hemoglobin Concent 30.8 L Mean Corpuscular Volume 79.3 L Mean Platelet Volume 10.7 H Monocytes # 1.2 H Monocytes % 4.0 Neutrophils # 27.9 H Neutrophils % 94.0 H Nucleated Red Blood Cells # Nucleated Red Blood Cells % Platelet Count 215 Potassium Level 4.6 Red Blood Count 4.05 L Red Cell Distribution Width 19.9 H Sodium Level 142 White Blood Count 29.7 #H Test 11/28/16 05:13 11/28/16 08:10 11/28/16 13:09 Bedside Glucose 177 157 200 Medications Medications Current Medications Ondansetron HCl (Zofran Inj) 4 mg Q6H PRN IV NAUSEA AND/OR VOMITING; Start 11/17 at 11:00 Acetaminophen/ Hydrocodone Bitart ([place] (5/325)) 1 tab Q6H PRN PO MODERATE PAIN LEVEL 4-6; Start 11/17/16 at 11:00 Magnesium Hydroxide (Milk Of Mag) 30 ml DAILY PRN PO CONSTIPATION; Start at 11:00 Sodium Biphosphate/ Sodium Phosphate (Fleet Enema) 133 ml DAILY PRN [place] CONSTIPATION; Start 11/17/16 at 11:00 Hydralazine HCl (Apresoline) 10 mg Q6H PRN IV ELEVATED BLOOD PRESSURE; Start at 11:00 Nitroglycerin (Nitroglycerin (Sl Tab) 0.4 Mg) 1 tab Q5M PRN SL ANGINA; Start at 11:00 Acetaminophen (Tylenol Tab) 650 mg Q6H PRN PO PAIN LEVEL 1-5; Start 11/17/16 at 11:00 Allopurinol (Zyloprim) 100 mg DAILY PO Last administered on 11/28/16 08:57; Admin Dose 100 MG; Start 11/18/16 at 09:00 Aspirin (Halfprin) 81 mg DAILY PO Last administered on 11/26/16 08:50; Admin Dose 81 MG; Start 11/18/16 at 09:00 Atorvastatin Calcium (Lipitor) 10 mg QHS PO Last administered on 11/27/16 20: 18; Admin Dose 10 MG; Start 11/17/16 at 21:00 Famotidine (Pepcid) 20 mg Q24H PO Last administered on 11/27/16 20:18; Admin Dose 20 MG; Start 11/17/16 at 21:00 Lactobacillus Acidoph/Bulgaricus (Floranex) 1 tab TID PO Last administered on 13:48; Admin Dose 1 TAB; Start 11/17/16 at 13:00 Lorazepam (Ativan) 0.5 mg Q6 PRN PO ANXIETY Last administered on 11/18/16 11:04 ; Admin Dose 0.5 MG; Start 11/17/16 at 11:00 Fish Oil (Fish Oil) 1,000 mg DAILY PO Last administered on 11/28/16 08:58; Admin Dose 1,000 MG; Start 11/18/16 at 09:00 Pyridoxine HCl (Vitamin B6) 100 mg DAILY PO Last administered on 11/28/16 08: 56; Admin Dose 100 MG; Start 11/18/16 at 09:00 Simethicone (Mylicon) 80 mg Q6H PRN PO INTESTINAL SPASMS/CRAMPING; Start at 11:00 Vitamin E (Vitamin E) 400 units DAILY PO Last administered on 11/28/16 08:59; Admin Dose 400 UNITS; Start 11/18/16 at 09:00 Zolpidem Tartrate (Ambien) 10 mg QHS PRN PO INSOMNIA; Start 11/17/16 at 11:00 Al Hydrox/Mg Hydrox/Simethicone (Mag-Al Plus) 10 ml Q6 PRN PO DISTENSION/GAS/ BLOATING; Start 11/17/16 at 11:00 Vancomycin HCl (Vanco Iv Per Pharmacy) PER PHARMACY DOSING NOTE XX ; Start at 11:30 Miscellaneous Information 1 ea NOTE XX ; Start 11/17/16 at 11:30 Glucose (Glutose) 15 gm Q15M PRN PO DECREASED GLUCOSE; Start 11/17/16 at 11:30 Glucose (Glutose) 22.5 gm Q15M PRN PO DECREASED GLUCOSE; Start 11/17/16 at 11:30 Dextrose (D50w Syringe) 25 ml Q15M PRN IV DECREASED GLUCOSE Last administered on 11/20/16 02:28; Admin Dose 25 ML; Start 11/17/16 at 11:30 Dextrose (D50w Syringe) 50 ml Q15M PRN IV DECREASED GLUCOSE; Start 11/17/16 at 11:30 Glucagon (Glucagen) 1 mg Q15M PRN IM DECREASED GLUCOSE Last administered on 11/19 21:43; Admin Dose 1 MG; Start 11/17/16 at 11:30 Glucose (Glutose) 15 gm Q15M PRN BUCCAL DECREASED GLUCOSE; Start 11/17/16 at 11: 30 Guaifenesin (Robitussin Liquid Cup) 200 mg Q4H PRN PO COUGH; Start 11/17/16 at 16:00 Phenol (Cepastat Lozenge) 1 lozenge Q1H PRN MT cough; Start 11/17/16 at 16:00 Bisacodyl (Dulcolax Supp) 10 mg Q24H PRN [place] CONSTIPATION; Start 11/17/16 at 16: 30 Cholecalciferol (Vitamin D) 1,000 unit DAILY PO Last administered on 11/28/16 08:58; Admin Dose 1,000 UNIT; Start 11/18/16 at 09:00 Diphenhydramine HCl (Benadryl) 25 mg BID PRN PO ITCHING; Start 11/17/16 at 16:30 Multivitamins Therapeutic (Theragran) 1 tab DAILY PO Last administered on 08:58; Admin Dose 1 TAB; Start 11/18/16 at 09:00 Zinc Sulfate 220 mg 220 mg DAILY PO Last administered on 11/28/16 08:57; Admin Dose 220 MG; Start 11/18/16 at 09:00 Propofol (Diprivan) 100 ml @ 3.96 mls/hr Q12H IV Last administered on 06:28; Admin Dose 11.88 MLS/HR; Start 11/18/16 at 12:30 Ferrous Sulfate (Feosol Liquid Cup) 300 mg BID GTB Last administered on 08:57; Admin Dose 300 MG; Start 11/18/16 at 21:00 Acetaminophen (Tylenol Liquid) 650 mg Q6 PRN NGT PAIN AND OR ELEVATED TEMP Last administered on 11/19/16 18:41; Admin Dose 650 MG; Start 11/19/16 at 03:30 Nystatin/ Triamcinolone Acetonide (Mycolog Oint) 1 applic BID TOP Last administered on 11/28/16 08:58; Admin Dose 1 APPLIC; Start 11/20/16 at 21:00 Docusate Sodium 200 mg 200 mg BID GTB Last administered on 11/28/16 08:57; Admin Dose 200 MG; Start 11/21/16 at 21:00 Norepinephrine/ Dextrose (Levophed/D5W) 500 ml @ 0 mls/hr TITRATE IV Last administered on 11/27/16 01:08; Admin Dose 3.75 MLS/HR; Start 11/22/16 at 07:00 Apixaban (Eliquis) 5 mg BID PO Last administered on 11/28/16 08:55; Admin Dose 5 MG; Start 11/22/16 at 21:00 Morphine Sulfate (morphine) 4 mg Q4H PRN IV SEVERE PAIN LEVEL 7-10 Last administered on 11/24/16 00:38; Admin Dose 4 MG; Start 11/23/16 at 15:00 Lorazepam (Ativan) 0.5 mg Q2H PRN IV ANXIETY; Start 11/23/16 at 15:00 Insulin Glargine (Lantus) 25 unit DAILY@08 SC Last administered on 11/28/16 08 :41; Admin Dose 25 UNIT; Start 11/24/16 at 11:00 Insulin Aspart (Novolog Insulin Pen) NOVOLOG *MODERATE* ALGORI... Q4 SC Last administered on 11/28/16 13:50; Admin Dose 4 UNIT; Start 11/24/16 at 13:00 Metronidazole (Flagyl) 500 mg Q8 GTB Last administered on 11/28/16 13:47; Admin Dose 500 MG; Start 11/24/16 at 14:00 Nystatin (Nystatin Susp) 5 ml QID PO Last administered on 11/28/16 13:47; Admin Dose 5 ML; Start 11/24/16 at 13:00 Potassium Chloride 40 meq 40 meq DAILY NGT ; Start 11/25/16 at 09:00; Status Future Hold Vancomycin HCl 1.25 gm/Sodium Chloride 250 ml @ 83.333 mls/ hr Q96H IVPB ; Start 11/30/16 at 18:00 Fentanyl (Sublimaze) 100 ml @ 2.5 mls/hr TITRATE IV Last administered on 04:25; Admin Dose 5 MLS/HR; Start 11/27/16 at 10:00 Methylprednisolone Sodium Succinate (Solu-Medrol) 40 mg Q12 IV Last administered on 11/28/16 08:56; Admin Dose 40 MG; Start 11/27/16 at 21:00 Fluconazole 100 mg 100 mg DAILY PO Last administered on 11/28/16 08:57; Admin Dose 100 MG; Start 11/27/16 at 14:30 Colistimethate Sodium/Sodium Chloride (Coly-Mycin/NS) 100 ml @ 200 mls/hr Q24H IVPB ; Start 11/28/16 at 14:00 Procedures Procedures PROCEDURE: XR Chest. CLINICAL INDICATION: Shortness of breath. TECHNIQUE: Single frontal view. COMPARISON: 11/26/2016. FINDINGS: The endotracheal tube, nasogastric tube, left internal jugular vein catheter, and right internal jugular vein tunnel dialysis catheter remain in satisfactory position. Bilateral interstitial disease consistent with pulmonary edema is unchanged. There is mild right basilar atelectasis. The heart is enlarged. There is no pleural effusion. There is no pneumothorax. IMPRESSION: 1. No significant change from 11/26/2016. RPTAT: QQ .Aldo Ramirez MD, MD Date Time Electronically viewed and signed by .Aldo Ramirez MD, MD on 11/27/2016 10:15 DYAN FRANKLIN MD Nov 28, 2016 14:45
[2016-11-28] MEDS: ATORVASTATIN 10 MG TAB PO SCH (20:48)
[2016-11-28] MEDS: FAMOTIDINE 20 MG TAB PO SCH (20:48)
[2016-11-28] MEDS: IPRATROPIUM (HFA) 12.9 GM INHALER INH PRN (21:18)
[2016-11-29] VITALS (102 sets, daily range): BP systolic 53–142; BP diastolic 26–86; PULSE 56–131; RESP 17–34
[2016-11-29] MEDS: PROPOFOL 100 ML IV SCH (00:19)
[2016-11-29] MEDS: INSULIN ASPART [NOVOLOG] 3 ML PEN SC SCH ×6 (00:19→21:00)
[2016-11-29] MEDS: ALBUTEROL HFA 8 GM INHALER INH SCH ×6 (01:13→20:07)
[2016-11-29] MEDS: IPRATROPIUM (HFA) 12.9 GM INHALER INH PRN ×2 (01:13→05:08)
[2016-11-29] MEDS: morphine 4 MG/ML VIAL IV PRN (01:52)
[2016-11-29 04:37] LABS: AADO2 Arterial 587.7 mmHg (7.0-24.0); Allen Test ACCEPTAB; Arterial Base Excess -8.8 mmol/L (-3.0-3); Arterial COHb 0.4 % (0.0-3.0); Arterial Fraction of Oxyhgb 76.5 % (93.0-99.0); Arterial HCO3 21.7 mmol/L (22.0-26.0); Arterial MetHb 0.4 % (0.0-1.5); Arterial Total Hemglobin 12.6 g/dl (12.0-18.0); MODE VENT - AC/VC+
[2016-11-29 04:51] LABS: ADD SCAN DIFF NO
[2016-11-29 05:09] LABS: CREATININE 5.4 mg/dl (0.61-1.24)
[2016-11-29 05:10] LABS: CALCIUM 7.8 mg/dl (8.4-10.2)
[2016-11-29 05:32] LABS: ABNORMAL IP MESSAGE 1; HEMATOCRIT 37.6 % (42.0-52.0); HEMOGLOBIN 11.3 g/dl (14.0-18.0); MEAN CORPUSCULAR HEMOGLOBIN 24.3 pg (29.0-33.0); MEAN CORPUSCULAR HGB CONC 30.1 g/dl (32.0-37.0); MEAN CORPUSCULAR VOLUME 80.9 fl (82.0-101.0); MEAN PLATELET VOLUME 12.1 fl (7.4-10.4); PLATELET COUNT 325 10^3/UL (140-415); RED BLOOD COUNT 4.65 10^6/ul (4.70-6.10); RED CELL DISTRIBUTION WIDTH 20.8 % (11.5-14.5); WHITE BLOOD COUNT 38.1 10^3/ul (4.8-10.8)
[2016-11-29] MEDS ORDERED: DOPamine-D5W 1.6 MG/ML 250 ML ONE (05:52)
[2016-11-29] MEDS ORDERED: AMIODARONE 150MG/D5W BOLUS 100 ML ONE (06:14)
[2016-11-29] MEDS ORDERED: EPINEPHrine 0.1 MG/ML SYG ONE (06:22)
[2016-11-29] MEDS: metroNIDAZOLE 500 MG TAB GTB SCH ×3 (06:55→21:34)
[2016-11-29] MEDS ORDERED: AMIODARONE 900 MG in DEXTROSE 5% 482 ML IV SCH (07:00)
[2016-11-29] MEDS: SEVELAMER CARBONATE 0.8 GM PKT PO SCH ×3 (07:35→17:35)
--- NOTE | 2016-11-29 07:47 | EN ---
Date/Time of Note Date/Time of Note DATE: 11/29/16 TIME: 07:44 ER Progress Note Cardiopulmonary Resuscitation by me: I was called for a CODE BLUE to the ICU. The patient was reportedly hypoxic all morning with hypotension. He was originally admitted for CHF and COPD exacerbation with a history of ESRD on hemodialysis, due today. He went into ventricular fibrillation. Prior to my arrival epinephrine was given and compressions were being done. See code documentation for specific details. ACLS and BLS were performed with high quality chest compressions and minimal interruptions. Reversible causes were assessed and treated. Throughout the code, the patient's rhythm checks consistently showed ventricular fibrillation. He received multiple defibrillations. Eventually the patient went into atrial fibrillation with aberrant conduction and RVR seen on bedside EKG. The interventricular conduction delay is new when compared to his old EKG. I asked the nurses to notify the admitting doctor of the new EKG. when I left the code, the patient had strong femoral pulses and a normal blood pressure. ADALI PERKINS MD Nov 29, 2016 07:47
--- NOTE | 2016-11-29 07:48 | PN ---
DATE: 11/28/2016 CARDIOLOGY FOLLOWUP PROGRESS NOTE SUBJECTIVE: Discussed with the staff in the ICU. Rhythm strip was reviewed. The patient remains i n atrial fibrillation. Heart rate has remained stable. He is still hypotensive on Levophed drip. He was becoming more hypoxemic and required to go back on the 100% oxygen. Family conference done y day and the family is asking the patient ____ to make a decision. MEDICATIONS: Reviewed as per medical reconciliation, personally reviewed. PHYSICAL EXAMINATION: VITAL SIGNS: Temperature 97.8, T-max is 99.7, heart rate of 90, blood pressure 99/55, respiration r ate of 29, saturating 96%. HEENT: Normocephalic, atraumatic. Obese gentleman. Pupils are equal. Status post intubation on t he vent. CARDIOVASCULAR: Irregularly irregular. Systolic murmur. PULMONARY: With no wheezes, mild rhonchi, diffuse. GASTROINTESTINAL: Obese, soft, nontender. EXTREMITIES: With positive lower extremity edema. There are multiple ulcerations on the toes. NEUROLOGIC: Sedated. PSYCHIATRIC: Appears to be calm now. LABORATORY: WBC of 29.7, hemoglobin 9.9, platelets of 215. Sodium 142, potassium 4.6, BUN 97, crea tinine 3.83, glucose 179. Chest x-ray most recent one done yesterday shows no significant change. There is cardiomegaly and _ ___ disease consistent with pulmonary edema per radiology report. ASSESSMENT AND PLAN: 1. Severe hypoxemic respiratory failure, status post intubation on the vent. 2. Bilateral pneumonia. 3. Fluid overload and congestive heart failure secondary to diastolic dysfunction. 4. Atrial fibrillation, chronic, on anticoagulation and heart rate control. 5. Peripheral artery disease and nonhealing wounds. 6. Sepsis and shock, currently on pressors. 7. Diabetes, on insulin. 8. Morbid obesity. 9. Hypertension currently hypotensive and shock. RECOMMENDATIONS: We will continue the vent support. The patient, unfortunately, currently 100% oxy gen. Heart rate has remained stable. We will continue to monitor. Continue with Levophed as neede d and try to wean off. Antibiotic as per ID's recommendation. We will continue with the ICU care. More than 40 minutes of critical care time was spent managing this patient excluding any procedures. Dictated By: GARDENIA RAZO/GREGORY Conf#: [id number] DID#: [id number] CC: CABRERA DOSHI MD;*[facility]*
[2016-11-29] MEDS ORDERED: NA BICARBONATE 8.4% 50 ML SYG ONE ×2 (07:53)
[2016-11-29] MEDS ORDERED: NA BICARBONATE 8.4% 50 ML SYG IV ONE (08:00)
[2016-11-29] MEDS: METHYLPREDNISOLONE 40 MG INJ IV SCH ×2 (08:28→21:32)
[2016-11-29] MEDS: APIXABAN 5 MG TABLET PO SCH ×2 (08:31→21:36)
[2016-11-29] MEDS: FLUCONAZOLE 100 MG TAB PO SCH (08:31)
[2016-11-29] MEDS: INSULIN GLARGINE [LANtus] 3 ML PEN SC SCH (08:31)
[2016-11-29] MEDS: PYRIDOXINE 50 MG TAB PO SCH (09:00)
[2016-11-29] MEDS: FISH OIL 1,000 MG CAP PO SCH (09:00)
[2016-11-29] MEDS: ZINC SULFATE 220 MG CAP PO SCH (09:00)
[2016-11-29] MEDS: DOCUSATE SODIUM 10 MG/ML (10ML CUP) GTB SCH ×2 (09:00→21:33)
[2016-11-29] MEDS: FERROUS SULFATE 60 MG/ML 5ML CUP GTB SCH ×2 (09:00→21:32)
[2016-11-29] MEDS: VITAMIN E 400 UNITS CAP PO SCH (09:00)
[2016-11-29] MEDS: ALLOPURINOL 100 MG TAB PO SCH (09:00)
[2016-11-29] MEDS: LACTOBACILLUS CHEW TAB PO SCH ×3 (09:00→21:33)
[2016-11-29] MEDS: CHOLECALCIFEROL 1,000 UNIT TAB PO SCH (09:00)
[2016-11-29] MEDS: MULTIVITAMINS THERAPEUTIC TAB PO SCH (09:00)
[2016-11-29] MEDS: ASPIRIN (EC) 81 MG TAB PO SCH (09:00)
--- NOTE | 2016-11-29 09:23 | CONS ---
Date/Time of Note Date/Time of Note DATE: 11/29/16 TIME: 09:19 Assessment/Plan Assessment/Plan Additional Assessment/Plan Ventilator settings are AC of 26, tidal volume 500, PEEP of 8, 100% FiO2. ABG was reviewed from today which is showing uncompensated severe respiratory acidosis with hypoxemia. Assessment recommendations; 1. Patient admitted for respiratory failure due to severe sepsis. 2. Status post cardiac arrest this morning. 3. Chronic renal failure, on hemodialysis. 4. Prior history of respiratory failure with history of tracheostomy with subsequent decannulation. 5. Atrial flutter/fibrillation. Currently on amiodarone drip. 6. Severe hypotension, currently on high-dose Levophed. Recommendations: continue current supportive care. Prognosis appears extremely poor. Consultation Date/Type/Reason Admit Date/Time Nov 17, 2016 at 12:10 Initial Consult Date 11/17/16 Type of Consultation: Renal Referring Provider: FELIX SCOTT 24 HR Interval Summary Free Text/Dictation Patient condition remains extremely critical. The patient had a cardiac arrest event around 5 AM this morning, CPR was done for about 6-8 minutes with revival of vital signs. Patient also was cardioverted at least 3 times. Currently the patient is still orally intubated, on ventilator and remains unresponsive. Remains in atrial flutter/fibrillation. General exam; elderly male, orally intubated, appears quite overweight. Unresponsive. Exam/Review of Systems Vital Signs Vitals Vital Signs Date Time Temp Pulse Resp B/P Pulse Ox O2 Delivery O2 Flow Rate FiO2 11/29/16 08:00 100 11/29/16 07:30 98 17 119/58 76 11/29/16 04:00 98.9 11/29/16 02:00 Mechanical Ventilator Intake and Output 11/28/16 11/28/16 11/29/16 15:00 23:00 07:00 Intake Total 476.68 ml 497.54 ml 501.27 ml Output Total 50 ml 20 ml Balance 476.68 ml 447.54 ml 481.27 ml Exam HEENT exam; supple neck, positive JVD. No lymphadenopathy. Midline trachea. Pupils are midsize and reactive to light. Patient has fair dentition. There is a well-healed tracheostomy scar. No thyromegaly, no lymphadenopathy. There is mild bilateral subconjunctival edema present. Chest examination; diminished but clear breath sounds bilaterally. S1-S2 audible, irregular rhythm. Abdomen examination; grossly protuberant. Bowel sounds are sluggish. Extremity examination; trace peripheral edema. Patient does have chronic lower extremity skin changes. Peripheral pulses are palpable. BOTTOM TURNER examination a micro patient is unresponsive. Results Result Diagram: 11/29/16 0400 11/29/16 0400 Results 24 hrs Laboratory Tests Test 11/28/16 13:09 11/28/16 16:29 11/28/16 20:47 11/29/16 00:17 Bedside Glucose 200 189 192 193 Test 11/29/16 03:54 11/29/16 04:00 11/29/16 05:47 11/29/16 08:25 Arterial Blood HCO3 21.7 L Arterial Blood Base Excess -8.8 L Arterial Blood Oxygen Saturation 77.1 L Khoi Test ACCEPTAB Arterial Blood Gas Puncture Site Right Radial Arterial Blood Carboxyhemoglobin 0.4 Arterial Blood Date Drawn 11/29/2016 4:20:34 AM Arterial Blood Methemoglobin 0.4 Arterial Blood pCO2 (Temp correct) 69.9 H Arterial Blood pH (Temp corrected) 7.109 *L Arterial Blood pO2 (Temp corrected) 55.4 L Blood Gas A-a O2 Differential 587.7 H Blood Gas Actual Respiration Rate 30 Blood Gas Critical Value Read Back LE LAW Blood Gas Inspiratory Pressure 30.0 Blood Gas Inspiratory Time 0.75 Blood Gas Low PEEP Setting 8.0 Blood Gas Modality VENT - AC/VC+ Blood Gas Notified Time 11/29/2016 4:37:15 AM Blood Gas Notified Whom AA Blood Gas Respiration Rate 26.0 Blood Gas Specimen Source Blood arterial Blood Gas Temperature 37.0 Blood Gas Tidal Volume 500.0 FiO2 100.0 Oxyhemoglobin Percent 76.5 L Total Hemoglobin 12.6 Anion Gap 27 #H Blood Urea Nitrogen 111 H Calcium Level 7.8 L Carbon Dioxide Level 22 Chloride Level 98 Creatinine 5.40 H Glucose Level 238 H Hematocrit 37.6 L Hemoglobin 11.3 L Mean Corpuscular Hemoglobin 24.3 L Mean Corpuscular Hemoglobin Concent 30.1 L Mean Corpuscular Volume 80.9 L Mean Platelet Volume 12.1 H Platelet Count 325 # Potassium Level 5.0 Red Blood Count 4.65 L Red Cell Distribution Width 20.8 H Sodium Level 142 White Blood Count 38.1 #H Bedside Glucose 211 232 H Medications Medications Current Medications Ondansetron HCl (Zofran Inj) 4 mg Q6H PRN IV NAUSEA AND/OR VOMITING; Start 11/17 at 11:00 Acetaminophen/ Hydrocodone Bitart ([place] (5/325)) 1 tab Q6H PRN PO MODERATE PAIN LEVEL 4-6; Start 11/17/16 at 11:00 Magnesium Hydroxide (Milk Of Mag) 30 ml DAILY PRN PO CONSTIPATION; Start at 11:00 Sodium Biphosphate/ Sodium Phosphate (Fleet Enema) 133 ml DAILY PRN [place] CONSTIPATION; Start 11/17/16 at 11:00 Hydralazine HCl (Apresoline) 10 mg Q6H PRN IV ELEVATED BLOOD PRESSURE; Start at 11:00 Nitroglycerin (Nitroglycerin (Sl Tab) 0.4 Mg) 1 tab Q5M PRN SL ANGINA; Start at 11:00 Acetaminophen (Tylenol Tab) 650 mg Q6H PRN PO PAIN LEVEL 1-5; Start 11/17/16 at 11:00 Allopurinol (Zyloprim) 100 mg DAILY PO Last administered on 11/28/16 08:57; Admin Dose 100 MG; Start 11/18/16 at 09:00 Aspirin (Halfprin) 81 mg DAILY PO Last administered on 11/26/16 08:50; Admin Dose 81 MG; Start 11/18/16 at 09:00 Atorvastatin Calcium (Lipitor) 10 mg QHS PO Last administered on 11/28/16 20: 48; Admin Dose 10 MG; Start 11/17/16 at 21:00 Famotidine (Pepcid) 20 mg Q24H PO Last administered on 11/28/16 20:48; Admin Dose 20 MG; Start 11/17/16 at 21:00 Lactobacillus Acidoph/Bulgaricus (Floranex) 1 tab TID PO Last administered on 20:48; Admin Dose 1 TAB; Start 11/17/16 at 13:00 Lorazepam (Ativan) 0.5 mg Q6 PRN PO ANXIETY Last administered on 11/18/16 11:04 ; Admin Dose 0.5 MG; Start 11/17/16 at 11:00 Fish Oil (Fish Oil) 1,000 mg DAILY PO Last administered on 11/28/16 08:58; Admin Dose 1,000 MG; Start 11/18/16 at 09:00 Pyridoxine HCl (Vitamin B6) 100 mg DAILY PO Last administered on 11/28/16 08: 56; Admin Dose 100 MG; Start 11/18/16 at 09:00 Simethicone (Mylicon) 80 mg Q6H PRN PO INTESTINAL SPASMS/CRAMPING; Start at 11:00 Vitamin E (Vitamin E) 400 units DAILY PO Last administered on 11/28/16 08:59; Admin Dose 400 UNITS; Start 11/18/16 at 09:00 Zolpidem Tartrate (Ambien) 10 mg QHS PRN PO INSOMNIA; Start 11/17/16 at 11:00 Al Hydrox/Mg Hydrox/Simethicone (Mag-Al Plus) 10 ml Q6 PRN PO DISTENSION/GAS/ BLOATING; Start 11/17/16 at 11:00 Vancomycin HCl (Vanco Iv Per Pharmacy) PER PHARMACY DOSING NOTE XX ; Start at 11:30 Miscellaneous Information 1 ea NOTE XX ; Start 11/17/16 at 11:30 Glucose (Glutose) 15 gm Q15M PRN PO DECREASED GLUCOSE; Start 11/17/16 at 11:30 Glucose (Glutose) 22.5 gm Q15M PRN PO DECREASED GLUCOSE; Start 11/17/16 at 11:30 Dextrose (D50w Syringe) 25 ml Q15M PRN IV DECREASED GLUCOSE Last administered on 11/20/16 02:28; Admin Dose 25 ML; Start 11/17/16 at 11:30 Dextrose (D50w Syringe) 50 ml Q15M PRN IV DECREASED GLUCOSE; Start 11/17/16 at 11:30 Glucagon (Glucagen) 1 mg Q15M PRN IM DECREASED GLUCOSE Last administered on 11/19 21:43; Admin Dose 1 MG; Start 11/17/16 at 11:30 Glucose (Glutose) 15 gm Q15M PRN BUCCAL DECREASED GLUCOSE; Start 11/17/16 at 11: 30 Guaifenesin (Robitussin Liquid Cup) 200 mg Q4H PRN PO COUGH; Start 11/17/16 at 16:00 Phenol (Cepastat Lozenge) 1 lozenge Q1H PRN [place] cough; Start 11/17/16 at 16:00 Bisacodyl (Dulcolax Supp) 10 mg Q24H PRN [place] CONSTIPATION; Start 11/17/16 at 16: 30 Cholecalciferol (Vitamin D) 1,000 unit DAILY PO Last administered on 11/28/16 08:58; Admin Dose 1,000 UNIT; Start 11/18/16 at 09:00 Diphenhydramine HCl (Benadryl) 25 mg BID PRN PO ITCHING; Start 11/17/16 at 16:30 Multivitamins Therapeutic (Theragran) 1 tab DAILY PO Last administered on 08:58; Admin Dose 1 TAB; Start 11/18/16 at 09:00 Zinc Sulfate 220 mg 220 mg DAILY PO Last administered on 11/28/16 08:57; Admin Dose 220 MG; Start 11/18/16 at 09:00 Propofol (Diprivan) 100 ml @ 3.96 mls/hr Q12H IV Last administered on 00:19; Admin Dose 11.88 MLS/HR; Start 11/18/16 at 12:30 Ferrous Sulfate (Feosol Liquid Cup) 300 mg BID GTB Last administered on 20:48; Admin Dose 300 MG; Start 11/18/16 at 21:00 Acetaminophen (Tylenol Liquid) 650 mg Q6 PRN NGT PAIN AND OR ELEVATED TEMP Last administered on 11/19/16 18:41; Admin Dose 650 MG; Start 11/19/16 at 03:30 Nystatin/ Triamcinolone Acetonide (Mycolog Oint) 1 applic BID TOP Last administered on 11/28/16 20:49; Admin Dose 1 APPLIC; Start 11/20/16 at 21:00 Docusate Sodium 200 mg 200 mg BID GTB Last administered on 11/28/16 20:48; Admin Dose 200 MG; Start 11/21/16 at 21:00 Norepinephrine/ Dextrose (Levophed/D5W) 500 ml @ 0 mls/hr TITRATE IV Last administered on 11/29/16 03:49; Admin Dose 18.75 MLS/HR; Start 11/22/16 at 07:00 Apixaban (Eliquis) 5 mg BID PO Last administered on 11/29/16 08:31; Admin Dose 5 MG; Start 11/22/16 at 21:00 Morphine Sulfate (morphine) 4 mg Q4H PRN IV SEVERE PAIN LEVEL 7-10 Last administered on 11/29/16 01:52; Admin Dose 4 MG; Start 11/23/16 at 15:00 Lorazepam (Ativan) 0.5 mg Q2H PRN IV ANXIETY; Start 11/23/16 at 15:00 Insulin Glargine (Lantus) 25 unit DAILY@08 SC Last administered on 11/29/16 08 :31; Admin Dose 25 UNIT; Start 11/24/16 at 11:00 Insulin Aspart (Novolog Insulin Pen) NOVOLOG *MODERATE* ALGORI... Q4 SC Last administered on 11/29/16 08:31; Admin Dose 6 UNIT; Start 11/24/16 at 13:00 Metronidazole (Flagyl) 500 mg Q8 GTB Last administered on 11/29/16 06:55; Admin Dose 500 MG; Start 11/24/16 at 14:00 Nystatin (Nystatin Susp) 5 ml QID PO Last administered on 11/28/16 20:48; Admin Dose 5 ML; Start 11/24/16 at 13:00 Potassium Chloride 40 meq 40 meq DAILY NGT ; Start 11/25/16 at 09:00; Status Future Hold Vancomycin HCl 1.25 gm/Sodium Chloride 250 ml @ 83.333 mls/ hr Q96H IVPB ; Start 11/30/16 at 18:00 Fentanyl (Sublimaze) 100 ml @ 2.5 mls/hr TITRATE IV Last administered on 04:25; Admin Dose 5 MLS/HR; Start 11/27/16 at 10:00 Methylprednisolone Sodium Succinate (Solu-Medrol) 40 mg Q12 IV Last administered on 11/29/16 08:28; Admin Dose 40 MG; Start 11/27/16 at 21:00 Fluconazole 100 mg 100 mg DAILY PO Last administered on 11/29/16 08:31; Admin Dose 100 MG; Start 11/27/16 at 14:30 Colistimethate Sodium 75 mg/ Sodium Chloride 100 ml @ 200 mls/hr Q24H IVPB ; Start 11/28/16 at 14:00 Amiodarone HCl/ Dextrose (Cordarone Iv/ D5W) 500 ml @ 0 mls/hr Q0M IV Last administered on 11/29/16t 06:55; Admin Dose 33.3 MLS/HR; Start 11/29/16 at 07:00 ; Stop 11/30/16 at 06:59 OLGA DARDEN Nov 29, 2016 09:22
--- NOTE | 2016-11-29 09:56 | RADRPT ---
PROCEDURE: XR Chest. CLINICAL INDICATION: Check triple-lumen catheter position. TECHNIQUE: Single frontal view. COMPARISON: 11/27/2016. FINDINGS: The endotracheal tube, nasogastric tube, and right internal jugular vein tunnel dialysis catheter re main in satisfactory position. The left internal jugular vein triple-lumen catheter has been retrac abdelrahman and may be outside the venous system or just partially within the left internal jugular vein. T his should be repositioned or removed. Pulmonary edema is slightly improved. Mild atelectasis is p resent at the lung bases, unchanged. The heart is enlarged. There is no pleural effusion. There is no pneumothorax. IMPRESSION: 1. The left internal jugular vein triple-lumen catheter has been retracted and should be reposition ed or removed. 2. Slightly improved pulmonary edema. 3. No other change from 11/27/2016. Call report: A call report of the findings was made to the patient's nurse, Destiny Pinon on 11/30/19 17 at 0956 hours. RPTAT: QQ .Aldo Ramirez MD, MD Date Time Electronically viewed and signed by .Aldo Ramirez MD, MD on 11/29/2016 09:56 .R/
[2016-11-29 10:09] LABS: LYMPHOCYTES # 1.5 10^3/ul (0.8-2.9); MONOCYTE # 1.5 10^3/ul (0.3-0.9); NEUTROPHIL # 34.7 10^3/ul (1.6-7.5)
--- NOTE | 2016-11-29 10:13 | PN ---
DATE: 11/29/2016 CARDIOLOGY FOLLOWUP SUBJECTIVE: Discussed with the staff in the ICU, event noted. The patient had a cardiopulmonary ar rest last night. Apparently he was becoming progressively more and more hypoxemic. Blood pressure was becoming low, ____ was added as well. The patient was going into atrial fibrillation, tachycar galen. Chest compression was done and patient was shocked. Converted back. Patient unresponsive, on the pressors now. EKG also has idioventricular rhythm. The patient is still on 100% oxygen and st ill desaturating. MEDICATIONS: Reviewed as per medical reconciliation, personally reviewed and include amiodarone royer allen currently. PHYSICAL EXAMINATION: VITAL SIGNS: Temperature 98.9, T-max is 99.7, heart rate of 93, blood pressure of 119/58. Most rec ent respiration rate of 28, saturating at 76% only, 100% oxygen. HEENT: Normocephalic, atraumatic obese gentleman, appears to be in distress. Status post intubatio n on the vent. CARDIOVASCULAR: Irregularly irregular. PULMONARY: With diffuse rhonchi throughout the lungs. GASTROINTESTINAL: Obese, soft, nontender. EXTREMITIES: Positive diffuse edema. NEUROLOGIC: Lethargic. PSYCHIATRIC: Unable to assess. LABORATORY: ABG done this morning shows pH of 7.1, pCO2 of 69.9, pO2 of 55. O2 sat of 77%. Sodium 142, potassium 5, BUN of 111, creatinine of 5.4, glucose of 238. WBC of 38.1, hemoglobin 11.3, tasha telets of 325. ASSESSMENT AND PLAN: 1. Status post cardiopulmonary arrest. 1. Vfib, most likely secondary to severe respiratory failure and hypoxemia. 2. Bilateral pneumonia. 3. Severe hypoxemic respiratory failure. 4. Fluid overload, congestive heart failure secondary to above. 5. Atrial fibrillation, chronic. 6. Peripheral artery disease and nonhealing wounds. 7. Diabetes. 8. Morbid obesity. 9. History of hypertension, currently hypotensive in shock. 10. Abnormal EKG secondary to above. RECOMMENDATIONS: The patient is on maximum oxygen. Still continues to be hypoxemic and difficult t o oxygenate him. Unfortunately, his oxygen saturation has not improved despite ____ antibiotic and pulmonary treatment. He has already been on anticoagulation. Amiodarone will be continued for the time being; however, long-term prognosis appeared to be very guarded. We will continue with the ICU care. Antibiotic as per internal medicine and ID recommendation. Vent support ____ will be continu ed. More than 40 minutes of critical care time was spent managing this patient excluding any procedures. Dictated By: GARDENIA RAZO/GREGORY Conf#: [id number] DID#: [id number]
[2016-11-29] MEDS: NYSTATIN SUSP 5 ML CUP PO SCH ×4 (10:28→21:33)
[2016-11-29] MEDS: NYSTATIN/TRIAMCINOLONE 15 GM OINT TOP SCH ×2 (10:28→21:34)
--- NOTE | 2016-11-29 13:57 | CONS ---
Date/Time of Note Date/Time of Note DATE: 11/29/16 TIME: 13:55 Assessment/Plan Assessment/Plan Chief Complaint/Hosp Course SUBJECTIVE: No acute changes. In HD, lying comfortably in bed. No fevers. On Levophed gtt MICROBIOLOGY: Blood cultures since November 23 remain negative. Sputum cx + MDR A baumanii ANTIMICROBIALS: The patient is on IV vancomycin, Flagyl, Diflucan and Colistin. INDWELLINGS: Endotracheal tube, NG tube, left IJ triple lumen catheter, right subclavian Perm-A-Cath, Higgins catheter. PHYSICAL EXAMINATION: GENERAL: This is a chronically ill-appearing, morbidly obese, middle-aged man who is lying comfortably in bed. Patient is sedated. HEENT: Head atraumatic, normocephalic. Sclerae anicteric. Buccal mucosa dry. NECK: Supple, trachea midline. CHEST: Rise symmetrical. Breath sounds diminished to bases. HEART: S1, S2. ABDOMEN: Soft. Bowel tones present. EXTREMITIES: With bilateral edema. Patient has bilateral lower extremity excoriation and left great toe wound. ASSESSMENT: 1. Septic shock. 2. Healthcare-associated pneumonia, possibly aspiration event. 3. Acute respiratory failure. 4. Pulmonary edema. 5. Left great toe chronic wound, possible osteomyelitis. 6. End-stage renal disease, hemodialysis dependent. 7. Diabetes. 8. Diarrhea, on empiric Flagyl. PLAN: The patient remains unchanged, with persistent leukocytosis, steroids being tapered down. Continue abx. Follow recommendations of consultants. Repeat bld cx with HD today DW staff Problems: Consultation Date/Type/Reason Admit Date/Time Nov 17, 2016 at 12:10 Initial Consult Date 11/17/16 Type of Consultation: ID Referring Provider: FELIX SCOTT Exam/Review of Systems Vital Signs Vitals Vital Signs Date Time Temp Pulse Resp B/P Pulse Ox O2 Delivery O2 Flow Rate FiO2 11/29/16 13:40 107 24 11/29/16 11:47 92/53 81 11/29/16 11:00 Mechanical Ventilator 11/29/16 09:51 100 11/29/16 08:00 98.7 Intake and Output 11/28/16 11/28/16 11/29/16 15:00 23:00 07:00 Intake Total 476.68 ml 497.54 ml 501.27 ml Output Total 50 ml 20 ml Balance 476.68 ml 447.54 ml 481.27 ml Results Result Diagram: 11/29/16 0400 11/29/16 0400 Results 24 hrs Laboratory Tests Test 11/28/16 16:29 11/28/16 20:47 11/29/16 00:17 11/29/16 03:54 Bedside Glucose 189 192 193 Arterial Blood HCO3 21.7 L Arterial Blood Base Excess -8.8 L Arterial Blood Oxygen Saturation 77.1 L Khoi Test ACCEPTAB Arterial Blood Gas Puncture Site Right Radial Arterial Blood Carboxyhemoglobin 0.4 Arterial Blood Date Drawn 11/29/2016 4:20:34 AM Arterial Blood Methemoglobin 0.4 Arterial Blood pCO2 (Temp correct) 69.9 H Arterial Blood pH (Temp corrected) 7.109 *L Arterial Blood pO2 (Temp corrected) 55.4 L Blood Gas A-a O2 Differential 587.7 H Blood Gas Actual Respiration Rate 30 Blood Gas Critical Value Read Back LE LAW Blood Gas Inspiratory Pressure 30.0 Blood Gas Inspiratory Time 0.75 Blood Gas Low PEEP Setting 8.0 Blood Gas Modality VENT - AC/VC+ Blood Gas Notified Time 11/29/2016 4:37:15 AM Blood Gas Notified Whom AA Blood Gas Respiration Rate 26.0 Blood Gas Specimen Source Blood arterial Blood Gas Temperature 37.0 Blood Gas Tidal Volume 500.0 FiO2 100.0 Oxyhemoglobin Percent 76.5 L Total Hemoglobin 12.6 Test 11/29/16 04:00 11/29/16 05:47 11/29/16 08:25 11/29/16 13:18 Anion Gap 27 #H Blood Urea Nitrogen 111 H Calcium Level 7.8 L Carbon Dioxide Level 22 Chloride Level 98 Creatinine 5.40 H Glucose Level 238 H Hematocrit 37.6 L Hemoglobin 11.3 L Lymphocytes # 1.5 Lymphocytes % 4.0 L Mean Corpuscular Hemoglobin 24.3 L Mean Corpuscular Hemoglobin Concent 30.1 L Mean Corpuscular Volume 80.9 L Mean Platelet Volume 12.1 H Metamyelocytes # 0.4 Metamyelocytes % 1.0 H Monocytes # 1.5 H Monocytes % 4.0 Neutrophils # 34.7 H Neutrophils % 91.0 H Platelet Count 325 # Potassium Level 5.0 Red Blood Count 4.65 L Red Cell Distribution Width 20.8 H Sodium Level 142 White Blood Count 38.1 #H Bedside Glucose 211 232 H 154 Medications Medications Current Medications Ondansetron HCl (Zofran Inj) 4 mg Q6H PRN IV NAUSEA AND/OR VOMITING; Start 11/17 at 11:00 Acetaminophen/ Hydrocodone Bitart ([place] (5/325)) 1 tab Q6H PRN PO MODERATE PAIN LEVEL 4-6; Start 11/17/16 at 11:00 Magnesium Hydroxide (Milk Of Mag) 30 ml DAILY PRN PO CONSTIPATION; Start at 11:00 Sodium Biphosphate/ Sodium Phosphate (Fleet Enema) 133 ml DAILY PRN RI CONSTIPATION; Start 11/17/16 at 11:00 Hydralazine HCl (Apresoline) 10 mg Q6H PRN IV ELEVATED BLOOD PRESSURE; Start at 11:00 Nitroglycerin (Nitroglycerin (Sl Tab) 0.4 Mg) 1 tab Q5M PRN SL ANGINA; Start at 11:00 Acetaminophen (Tylenol Tab) 650 mg Q6H PRN PO PAIN LEVEL 1-5; Start 11/17/16 at 11:00 Allopurinol (Zyloprim) 100 mg DAILY PO Last administered on 11/28/16 08:57; Admin Dose 100 MG; Start 11/18/16 at 09:00 Aspirin (Halfprin) 81 mg DAILY PO Last administered on 11/26/16 08:50; Admin Dose 81 MG; Start 11/18/16 at 09:00 Atorvastatin Calcium (Lipitor) 10 mg QHS PO Last administered on 11/28/16 20: 48; Admin Dose 10 MG; Start 11/17/16 at 21:00 Famotidine (Pepcid) 20 mg Q24H PO Last administered on 11/28/16 20:48; Admin Dose 20 MG; Start 11/17/16 at 21:00 Lactobacillus Acidoph/Bulgaricus (Floranex) 1 tab TID PO Last administered on 20:48; Admin Dose 1 TAB; Start 11/17/16 at 13:00 Lorazepam (Ativan) 0.5 mg Q6 PRN PO ANXIETY Last administered on 11/18/16 11:04 ; Admin Dose 0.5 MG; Start 11/17/16 at 11:00 Fish Oil (Fish Oil) 1,000 mg DAILY PO Last administered on 11/28/16 08:58; Admin Dose 1,000 MG; Start 11/18/16 at 09:00 Pyridoxine HCl (Vitamin B6) 100 mg DAILY PO Last administered on 11/28/16 08: 56; Admin Dose 100 MG; Start 11/18/16 at 09:00 Simethicone (Mylicon) 80 mg Q6H PRN PO INTESTINAL SPASMS/CRAMPING; Start at 11:00 Vitamin E (Vitamin E) 400 units DAILY PO Last administered on 11/28/16 08:59; Admin Dose 400 UNITS; Start 11/18/16 at 09:00 Zolpidem Tartrate (Ambien) 10 mg QHS PRN PO INSOMNIA; Start 11/17/16 at 11:00 Al Hydrox/Mg Hydrox/Simethicone (Mag-Al Plus) 10 ml Q6 PRN PO DISTENSION/GAS/ BLOATING; Start 11/17/16 at 11:00 Vancomycin HCl (Vanco Iv Per Pharmacy) PER PHARMACY DOSING NOTE XX ; Start at 11:30 Miscellaneous Information 1 ea NOTE XX ; Start 11/17/16 at 11:30 Glucose (Glutose) 15 gm Q15M PRN PO DECREASED GLUCOSE; Start 11/17/16 at 11:30 Glucose (Glutose) 22.5 gm Q15M PRN PO DECREASED GLUCOSE; Start 11/17/16 at 11:30 Dextrose (D50w Syringe) 25 ml Q15M PRN IV DECREASED GLUCOSE Last administered on 11/20/16 02:28; Admin Dose 25 ML; Start 11/17/16 at 11:30 Dextrose (D50w Syringe) 50 ml Q15M PRN IV DECREASED GLUCOSE; Start 11/17/16 at 11:30 Glucagon (Glucagen) 1 mg Q15M PRN IM DECREASED GLUCOSE Last administered on 11/19 21:43; Admin Dose 1 MG; Start 11/17/16 at 11:30 Glucose (Glutose) 15 gm Q15M PRN BUCCAL DECREASED GLUCOSE; Start 11/17/16 at 11: 30 Guaifenesin (Robitussin Liquid Cup) 200 mg Q4H PRN PO COUGH; Start 11/17/16 at 16:00 Phenol (Cepastat Lozenge) 1 lozenge Q1H PRN MT cough; Start 11/17/16 at 16:00 Bisacodyl (Dulcolax Supp) 10 mg Q24H PRN RI CONSTIPATION; Start 11/17/16 at 16: 30 Cholecalciferol (Vitamin D) 1,000 unit DAILY PO Last administered on 11/28/16 08:58; Admin Dose 1,000 UNIT; Start 11/18/16 at 09:00 Diphenhydramine HCl (Benadryl) 25 mg BID PRN PO ITCHING; Start 11/17/16 at 16:30 Multivitamins Therapeutic (Theragran) 1 tab DAILY PO Last administered on 08:58; Admin Dose 1 TAB; Start 11/18/16 at 09:00 Zinc Sulfate 220 mg 220 mg DAILY PO Last administered on 11/28/16 08:57; Admin Dose 220 MG; Start 11/18/16 at 09:00 Propofol (Diprivan) 100 ml @ 3.96 mls/hr Q12H IV Last administered on 00:19; Admin Dose 11.88 MLS/HR; Start 11/18/16 at 12:30 Ferrous Sulfate (Feosol Liquid Cup) 300 mg BID GTB Last administered on 20:48; Admin Dose 300 MG; Start 11/18/16 at 21:00 Acetaminophen (Tylenol Liquid) 650 mg Q6 PRN NGT PAIN AND OR ELEVATED TEMP Last administered on 11/19/16 18:41; Admin Dose 650 MG; Start 11/19/16 at 03:30 Nystatin/ Triamcinolone Acetonide (Mycolog Oint) 1 applic BID TOP Last administered on 11/29/16 10:28; Admin Dose 1 APPLIC; Start 11/20/16 at 21:00 Docusate Sodium 200 mg 200 mg BID GTB Last administered on 11/28/16 20:48; Admin Dose 200 MG; Start 11/21/16 at 21:00 Norepinephrine/ Dextrose (Levophed/D5W) 500 ml @ 0 mls/hr TITRATE IV Last administered on 11/29/16 03:49; Admin Dose 18.75 MLS/HR; Start 11/22/16 at 07:00 Apixaban (Eliquis) 5 mg BID PO Last administered on 11/29/16 08:31; Admin Dose 5 MG; Start 11/22/16 at 21:00 Morphine Sulfate (morphine) 4 mg Q4H PRN IV SEVERE PAIN LEVEL 7-10 Last administered on 11/29/16 01:52; Admin Dose 4 MG; Start 11/23/16 at 15:00 Lorazepam (Ativan) 0.5 mg Q2H PRN IV ANXIETY; Start 11/23/16 at 15:00 Insulin Glargine (Lantus) 25 unit DAILY@08 SC Last administered on 11/29/16 08 :31; Admin Dose 25 UNIT; Start 11/24/16 at 11:00 Insulin Aspart (Novolog Insulin Pen) NOVOLOG *MODERATE* ALGORI... Q4 SC Last administered on 11/29/16 13:20; Admin Dose 2 UNIT; Start 11/24/16 at 13:00 Metronidazole (Flagyl) 500 mg Q8 GTB Last administered on 11/29/16 06:55; Admin Dose 500 MG; Start 11/24/16 at 14:00 Nystatin (Nystatin Susp) 5 ml QID PO Last administered on 11/29/16 10:28; Admin Dose 5 ML; Start 11/24/16 at 13:00 Potassium Chloride 40 meq 40 meq DAILY NGT ; Start 11/25/16 at 09:00; Status Future Hold Vancomycin HCl 1.25 gm/Sodium Chloride 250 ml @ 83.333 mls/ hr Q96H IVPB ; Start 11/30/16 at 18:00 Fentanyl (Sublimaze) 100 ml @ 2.5 mls/hr TITRATE IV Last administered on 04:25; Admin Dose 5 MLS/HR; Start 11/27/16 at 10:00 Methylprednisolone Sodium Succinate (Solu-Medrol) 40 mg Q12 IV Last administered on 11/29/16 08:28; Admin Dose 40 MG; Start 11/27/16 at 21:00 Fluconazole 100 mg 100 mg DAILY PO Last administered on 11/29/16 08:31; Admin Dose 100 MG; Start 11/27/16 at 14:30 Colistimethate Sodium 75 mg/ Sodium Chloride 100 ml @ 200 mls/hr Q24H IVPB ; Start 11/28/16 at 14:00 Amiodarone HCl/ Dextrose (Cordarone Iv/ D5W) 500 ml @ 0 mls/hr Q0M IV Last administered on 11/29/16t 06:55; Admin Dose 33.3 MLS/HR; Start 11/29/16 at 07:00 ; Stop 11/30/16 at 06:59 Miscellaneous Information (*Rx Drug Level Order Reminder*) VANCO TROUGH @ 1, 700 ON... ONCE ONCE XX ; Start 11/30/16 at 17:00; Stop 11/30/16 at 17:01 JAMEY VAZQUEZ NP Nov 29, 2016 13:57
--- NOTE | 2016-11-29 15:01 | PN ---
Date/Time of Note Date/Time of Note DATE: 11/29/16 TIME: 14:58 Assessment/Plan VTE Prophylaxis VTE Prophylaxis Intervention: other Lines/Catheters IV Catheter Type (from Nrs): permacath Assessment/Plan Chief Complaint/Hosp Course 1. Acute respiratory failure secondary to fluid overload and Pneumonia: Continues to deteriorate, now requiring 100% percent FiO2 with low O2 saturations Continue hemodialysis per nephrology Continue antibiotics per ID Pulmonology on the case, continue vent support, continue steroids, patient may need trach, family conference held yesterday to discuss trach placement and family would like to speak to patient about this as he has been trached in the past and has stated that he did not want to be trached again, plan is to decrease sedation and attempt to ask patient himself 2. Cardiac arrest status post ACLS with return of circulation ICU monitoring 3. Septic shock likely secondary to Multifocal Pneumonia Continue pressor support and antibiotics 4. ESRD on HD HD per unix manager 5. Morbid obesity / cannot r/o OHS 6. COPD with chronic lung disease and History of multiple previous respiratory failure and tracheostomy in the past. 7. HTN > hypotensive 2/2 sepsis 8. Paroxysmal Afib currently in sinus 9. DM2 with steroid induced hyperglycemia 10. Pulmonary lymphadenopathy: reactive versus neoplastic Pulmonology on the case 11. LE cellulitis with Chronic foot ulcer and hx of osteomyelitis: improving 12. Debility 13. Pancytopenia with microcytosis: mild iron deficiency noted Prophylaxis: Eliquis Problems: Subjective 24 Hr Interval Summary Subjective hx not possible: pt non-verbal Exam/Review of Systems Vital Signs Vitals Vital Signs Date Time Temp Pulse Resp B/P Pulse Ox O2 Delivery O2 Flow Rate FiO2 11/29/16 13:47 98 28 82 100 11/29/16 13:45 85/57 11/29/16 13:00 Mechanical Ventilator 11/29/16 08:00 98.7 Intake and Output 11/28/16 11/28/16 11/29/16 15:00 23:00 07:00 Intake Total 476.68 ml 497.54 ml 501.27 ml Output Total 50 ml 20 ml Balance 476.68 ml 447.54 ml 481.27 ml Exam Constitutional: non-verbal Respiratory: clear to auscultation Cardiovascular: regular rate and rhythm Gastrointestinal: soft, No distended Musculoskeletal: No nl extremities to inspection Results Result Diagram: 11/29/16 0400 11/29/16 0400 Results 24 hrs Laboratory Tests Test 11/28/16 16:29 11/28/16 20:47 11/29/16 00:17 11/29/16 03:54 Bedside Glucose 189 192 193 Arterial Blood HCO3 21.7 L Arterial Blood Base Excess -8.8 L Arterial Blood Oxygen Saturation 77.1 L Khoi Test ACCEPTAB Arterial Blood Gas Puncture Site Right Radial Arterial Blood Carboxyhemoglobin 0.4 Arterial Blood Date Drawn 11/29/2016 4:20:34 AM Arterial Blood Methemoglobin 0.4 Arterial Blood pCO2 (Temp correct) 69.9 H Arterial Blood pH (Temp corrected) 7.109 *L Arterial Blood pO2 (Temp corrected) 55.4 L Blood Gas A-a O2 Differential 587.7 H Blood Gas Actual Respiration Rate 30 Blood Gas Critical Value Read Back LE LAW Blood Gas Inspiratory Pressure 30.0 Blood Gas Inspiratory Time 0.75 Blood Gas Low PEEP Setting 8.0 Blood Gas Modality VENT - AC/VC+ Blood Gas Notified Time 11/29/2016 4:37:15 AM Blood Gas Notified Whom AA Blood Gas Respiration Rate 26.0 Blood Gas Specimen Source Blood arterial Blood Gas Temperature 37.0 Blood Gas Tidal Volume 500.0 FiO2 100.0 Oxyhemoglobin Percent 76.5 L Total Hemoglobin 12.6 Test 11/29/16 04:00 11/29/16 05:47 11/29/16 08:25 11/29/16 13:18 Anion Gap 27 #H Blood Urea Nitrogen 111 H Calcium Level 7.8 L Carbon Dioxide Level 22 Chloride Level 98 Creatinine 5.40 H Glucose Level 238 H Hematocrit 37.6 L Hemoglobin 11.3 L Lymphocytes # 1.5 Lymphocytes % 4.0 L Mean Corpuscular Hemoglobin 24.3 L Mean Corpuscular Hemoglobin Concent 30.1 L Mean Corpuscular Volume 80.9 L Mean Platelet Volume 12.1 H Metamyelocytes # 0.4 Metamyelocytes % 1.0 H Monocytes # 1.5 H Monocytes % 4.0 Neutrophils # 34.7 H Neutrophils % 91.0 H Platelet Count 325 # Potassium Level 5.0 Red Blood Count 4.65 L Red Cell Distribution Width 20.8 H Sodium Level 142 White Blood Count 38.1 #H Bedside Glucose 211 232 H 154 Medications Medications Current Medications Ondansetron HCl (Zofran Inj) 4 mg Q6H PRN IV NAUSEA AND/OR VOMITING; Start 11/17 at 11:00 Acetaminophen/ Hydrocodone Bitart ([place] (5/325)) 1 tab Q6H PRN PO MODERATE PAIN LEVEL 4-6; Start 11/17/16 at 11:00 Magnesium Hydroxide (Milk Of Mag) 30 ml DAILY PRN PO CONSTIPATION; Start at 11:00 Sodium Biphosphate/ Sodium Phosphate (Fleet Enema) 133 ml DAILY PRN HI CONSTIPATION; Start 11/17/16 at 11:00 Hydralazine HCl (Apresoline) 10 mg Q6H PRN IV ELEVATED BLOOD PRESSURE; Start at 11:00 Nitroglycerin (Nitroglycerin (Sl Tab) 0.4 Mg) 1 tab Q5M PRN SL ANGINA; Start at 11:00 Acetaminophen (Tylenol Tab) 650 mg Q6H PRN PO PAIN LEVEL 1-5; Start 11/17/16 at 11:00 Allopurinol (Zyloprim) 100 mg DAILY PO Last administered on 11/28/16 08:57; Admin Dose 100 MG; Start 11/18/16 at 09:00 Aspirin (Halfprin) 81 mg DAILY PO Last administered on 11/26/16 08:50; Admin Dose 81 MG; Start 11/18/16 at 09:00 Atorvastatin Calcium (Lipitor) 10 mg QHS PO Last administered on 11/28/16 20: 48; Admin Dose 10 MG; Start 11/17/16 at 21:00 Famotidine (Pepcid) 20 mg Q24H PO Last administered on 11/28/16 20:48; Admin Dose 20 MG; Start 11/17/16 at 21:00 Lactobacillus Acidoph/Bulgaricus (Floranex) 1 tab TID PO Last administered on 20:48; Admin Dose 1 TAB; Start 11/17/16 at 13:00 Lorazepam (Ativan) 0.5 mg Q6 PRN PO ANXIETY Last administered on 11/18/16 11:04 ; Admin Dose 0.5 MG; Start 11/17/16 at 11:00 Fish Oil (Fish Oil) 1,000 mg DAILY PO Last administered on 11/28/16 08:58; Admin Dose 1,000 MG; Start 11/18/16 at 09:00 Pyridoxine HCl (Vitamin B6) 100 mg DAILY PO Last administered on 11/28/16 08: 56; Admin Dose 100 MG; Start 11/18/16 at 09:00 Simethicone (Mylicon) 80 mg Q6H PRN PO INTESTINAL SPASMS/CRAMPING; Start at 11:00 Vitamin E (Vitamin E) 400 units DAILY PO Last administered on 11/28/16 08:59; Admin Dose 400 UNITS; Start 11/18/16 at 09:00 Zolpidem Tartrate (Ambien) 10 mg QHS PRN PO INSOMNIA; Start 11/17/16 at 11:00 Al Hydrox/Mg Hydrox/Simethicone (Mag-Al Plus) 10 ml Q6 PRN PO DISTENSION/GAS/ BLOATING; Start 11/17/16 at 11:00 Vancomycin HCl (Vanco Iv Per Pharmacy) PER PHARMACY DOSING NOTE XX ; Start at 11:30 Miscellaneous Information 1 ea NOTE XX ; Start 11/17/16 at 11:30 Glucose (Glutose) 15 gm Q15M PRN PO DECREASED GLUCOSE; Start 11/17/16 at 11:30 Glucose (Glutose) 22.5 gm Q15M PRN PO DECREASED GLUCOSE; Start 11/17/16 at 11:30 Dextrose (D50w Syringe) 25 ml Q15M PRN IV DECREASED GLUCOSE Last administered on 11/20/16 02:28; Admin Dose 25 ML; Start 11/17/16 at 11:30 Dextrose (D50w Syringe) 50 ml Q15M PRN IV DECREASED GLUCOSE; Start 11/17/16 at 11:30 Glucagon (Glucagen) 1 mg Q15M PRN IM DECREASED GLUCOSE Last administered on 11/19 21:43; Admin Dose 1 MG; Start 11/17/16 at 11:30 Glucose (Glutose) 15 gm Q15M PRN BUCCAL DECREASED GLUCOSE; Start 11/17/16 at 11: 30 Guaifenesin (Robitussin Liquid Cup) 200 mg Q4H PRN PO COUGH; Start 11/17/16 at 16:00 Phenol (Cepastat Lozenge) 1 lozenge Q1H PRN MT cough; Start 11/17/16 at 16:00 Bisacodyl (Dulcolax Supp) 10 mg Q24H PRN [place] CONSTIPATION; Start 11/17/16 at 16: 30 Cholecalciferol (Vitamin D) 1,000 unit DAILY PO Last administered on 11/28/16 08:58; Admin Dose 1,000 UNIT; Start 11/18/16 at 09:00 Diphenhydramine HCl (Benadryl) 25 mg BID PRN PO ITCHING; Start 11/17/16 at 16:30 Multivitamins Therapeutic (Theragran) 1 tab DAILY PO Last administered on 08:58; Admin Dose 1 TAB; Start 11/18/16 at 09:00 Zinc Sulfate 220 mg 220 mg DAILY PO Last administered on 11/28/16 08:57; Admin Dose 220 MG; Start 11/18/16 at 09:00 Propofol (Diprivan) 100 ml @ 3.96 mls/hr Q12H IV Last administered on 00:19; Admin Dose 11.88 MLS/HR; Start 11/18/16 at 12:30 Ferrous Sulfate (Feosol Liquid Cup) 300 mg BID GTB Last administered on 20:48; Admin Dose 300 MG; Start 11/18/16 at 21:00 Acetaminophen (Tylenol Liquid) 650 mg Q6 PRN NGT PAIN AND OR ELEVATED TEMP Last administered on 11/19/16 18:41; Admin Dose 650 MG; Start 11/19/16 at 03:30 Nystatin/ Triamcinolone Acetonide (Mycolog Oint) 1 applic BID TOP Last administered on 11/29/16 10:28; Admin Dose 1 APPLIC; Start 11/20/16 at 21:00 Docusate Sodium 200 mg 200 mg BID GTB Last administered on 11/28/16 20:48; Admin Dose 200 MG; Start 11/21/16 at 21:00 Norepinephrine/ Dextrose (Levophed/D5W) 500 ml @ 0 mls/hr TITRATE IV Last administered on 11/29/16 03:49; Admin Dose 18.75 MLS/HR; Start 11/22/16 at 07:00 Apixaban (Eliquis) 5 mg BID PO Last administered on 11/29/16 08:31; Admin Dose 5 MG; Start 11/22/16 at 21:00 Morphine Sulfate (morphine) 4 mg Q4H PRN IV SEVERE PAIN LEVEL 7-10 Last administered on 11/29/16 01:52; Admin Dose 4 MG; Start 11/23/16 at 15:00 Lorazepam (Ativan) 0.5 mg Q2H PRN IV ANXIETY; Start 11/23/16 at 15:00 Insulin Glargine (Lantus) 25 unit DAILY@08 SC Last administered on 11/29/16 08 :31; Admin Dose 25 UNIT; Start 11/24/16 at 11:00 Insulin Aspart (Novolog Insulin Pen) NOVOLOG *MODERATE* ALGORI... Q4 SC Last administered on 11/29/16 13:20; Admin Dose 2 UNIT; Start 11/24/16 at 13:00 Metronidazole (Flagyl) 500 mg Q8 GTB Last administered on 11/29/16 06:55; Admin Dose 500 MG; Start 11/24/16 at 14:00 Nystatin (Nystatin Susp) 5 ml QID PO Last administered on 11/29/16 14:26; Admin Dose 5 ML; Start 11/24/16 at 13:00 Potassium Chloride 40 meq 40 meq DAILY NGT ; Start 11/25/16 at 09:00; Status Future Hold Vancomycin HCl 1.25 gm/Sodium Chloride 250 ml @ 83.333 mls/ hr Q96H IVPB ; Start 11/30/16 at 18:00 Fentanyl (Sublimaze) 100 ml @ 2.5 mls/hr TITRATE IV Last administered on 04:25; Admin Dose 5 MLS/HR; Start 11/27/16 at 10:00 Methylprednisolone Sodium Succinate (Solu-Medrol) 40 mg Q12 IV Last administered on 11/29/16 08:28; Admin Dose 40 MG; Start 11/27/16 at 21:00 Fluconazole 100 mg 100 mg DAILY PO Last administered on 11/29/16 08:31; Admin Dose 100 MG; Start 11/27/16 at 14:30 Colistimethate Sodium 75 mg/ Sodium Chloride 100 ml @ 200 mls/hr Q24H IVPB ; Start 11/28/16 at 14:00 Amiodarone HCl/ Dextrose (Cordarone Iv/ D5W) 500 ml @ 0 mls/hr Q0M IV Last administered on 11/29/16t 06:55; Admin Dose 33.3 MLS/HR; Start 11/29/16 at 07:00 ; Stop 11/30/16 at 06:59 Miscellaneous Information (*Rx Drug Level Order Reminder*) VANCO TROUGH @ 1, 700 ON... ONCE ONCE XX ; Start 11/30/16 at 17:00; Stop 11/30/16 at 17:01 CABRERA DOSHI Nov 29, 2016 15:01
[2016-11-29] MEDS: COLISTIMETHATE 75 MG in SOD CHLORIDE 0.9% 100 ML IVPB SCH (15:16)
[2016-11-29] MEDS ORDERED: LIDOCAINE 1% (MDV) 20 ML INJ SC ONE (20:00)
[2016-11-29] MEDS: ATORVASTATIN 10 MG TAB PO SCH (21:00)
[2016-11-29] MEDS: FAMOTIDINE 20 MG TAB PO SCH (21:34)
--- NOTE | 2016-11-29 22:54 | EN ---
Date/Time of Note Date/Time of Note DATE: 11/29/16 TIME: 22:51 ER Progress Note CODE BLUE This a 61-year-old male admitted for respiratory failure due to pneumonia currently intubated and had a CODE BLUE this morning. The ICU nurse states the patient just suddenly went asystolic on the monitor. My arrival the patient was undergoing CPR and had 1 mg of epinephrine given. The patient is a hemodialysis patient and I ordered calcium and 1 amp of bicarb. It was 3 minutes past the initial epinephrine and was time for pulse check. Pulse check revealed a positive pulse. Monitor showed atrial fibrillation with a left bundle branch block/wide-complex heart rate of 120-135. Blood pressure 92/62. The pulse was felt as they were about to give the calcium and bicarb. Clinical impression cardiac arrest Condition critical ESTIVEN HUFFMAN DO Nov 29, 2016 22:53
--- NOTE | 2016-11-29 23:43 | CONS ---
Date/Time of Note Date/Time of Note DATE: 11/29/16 TIME: 23:43 Assessment/Plan Assessment/Plan Additional Assessment/Plan Pt remains difficult problem explained poor prognosis to Cont'd Hospitalization Reason: Overall prognosis remains poor, spoke re that to at bedside Consultation Date/Type/Reason Admit Date/Time Nov 17, 2016 at 12:10 Initial Consult Date 11/17/16 Type of Consultation: renal Referring Provider: FELIX SCOTT 24 HR Interval Summary Subjective hx not possible: pt non-verbal Exam/Review of Systems Vital Signs Vitals Vital Signs Date Time Temp Pulse Resp B/P Pulse Ox O2 Delivery O2 Flow Rate FiO2 11/29/16 23:00 122 28 78 100 11/29/16 18:45 109/51 11/29/16 18:00 Mechanical Ventilator 11/29/16 16:00 98.8 Intake and Output 11/28/16 11/28/16 11/29/16 15:00 23:00 07:00 Intake Total 476.68 ml 497.54 ml 501.27 ml Output Total 50 ml 20 ml Balance 476.68 ml 447.54 ml 481.27 ml Exam at bedside Constitutional: alert, obese, oriented, well developed Psych: nl mood/affect, no complaints Head: atraumatic, normocephalic Eyes: EOMI, PERRL, nl conjunctiva, nl lids, nl sclera ENMT: nl external ears & nose, nl lips & teeth, nl nasal mucosa & septum Neck: non-tender, supple Respiratory: clear to auscultation, normal air movement, other (rt chest wall permacath) Cardiovascular: nl pulses, regular rate and rhythm Gastrointestinal: nl liver, spleen, non-tender, soft Musculoskeletal: nl extremities to inspection, nl gait and stance Extremities: normal pulses 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: 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 CUTTER 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, nl mental status, nl speech, nl strength Skin: nl turgor, No rash or lesions Lymph: nl lymph nodes Results Result Diagram: 11/29/160 11/29/16 0400 Results 24 hrs Laboratory Tests Test 11/29/16 00:17 11/29/16 03:54 11/29/16 04:00 11/29/16 05:47 Bedside Glucose 193 211 Arterial Blood HCO3 21.7 L Arterial Blood Base Excess -8.8 L Arterial Blood Oxygen Saturation 77.1 L Khoi Test ACCEPTAB Arterial Blood Gas Puncture Site Right Radial Arterial Blood Carboxyhemoglobin 0.4 Arterial Blood Date Drawn 11/29/2016 4:20:34 AM Arterial Blood Methemoglobin 0.4 Arterial Blood pCO2 (Temp correct) 69.9 H Arterial Blood pH (Temp corrected) 7.109 *L Arterial Blood pO2 (Temp corrected) 55.4 L Blood Gas A-a O2 Differential 587.7 H Blood Gas Actual Respiration Rate 30 Blood Gas Critical Value Read Back LE LAW Blood Gas Inspiratory Pressure 30.0 Blood Gas Inspiratory Time 0.75 Blood Gas Low PEEP Setting 8.0 Blood Gas Modality VENT - AC/VC+ Blood Gas Notified Time 11/29/2016 4:37:15 AM Blood Gas Notified Whom AA Blood Gas Respiration Rate 26.0 Blood Gas Specimen Source Blood arterial Blood Gas Temperature 37.0 Blood Gas Tidal Volume 500.0 FiO2 100.0 Oxyhemoglobin Percent 76.5 L Total Hemoglobin 12.6 Anion Gap 27 #H Blood Urea Nitrogen 111 H Calcium Level 7.8 L Carbon Dioxide Level 22 Chloride Level 98 Creatinine 5.40 H Glucose Level 238 H Hematocrit 37.6 L Hemoglobin 11.3 L Lymphocytes # 1.5 Lymphocytes % 4.0 L Mean Corpuscular Hemoglobin 24.3 L Mean Corpuscular Hemoglobin Concent 30.1 L Mean Corpuscular Volume 80.9 L Mean Platelet Volume 12.1 H Metamyelocytes # 0.4 Metamyelocytes % 1.0 H Monocytes # 1.5 H Monocytes % 4.0 Neutrophils # 34.7 H Neutrophils % 91.0 H Platelet Count 325 # Potassium Level 5.0 Red Blood Count 4.65 L Red Cell Distribution Width 20.8 H Sodium Level 142 White Blood Count 38.1 #H Test 11/29/16 08:25 11/29/16 13:18 11/29/16 17:53 11/29/16 21:37 Bedside Glucose 232 H 154 151 122 Medications Medications Current Medications Ondansetron HCl (Zofran Inj) 4 mg Q6H PRN IV NAUSEA AND/OR VOMITING; Start 11/17 at 11:00 Acetaminophen/ Hydrocodone Bitart ([place] (5/325)) 1 tab Q6H PRN PO MODERATE PAIN LEVEL 4-6; Start 11/17/16 at 11:00 Magnesium Hydroxide (Milk Of Mag) 30 ml DAILY PRN PO CONSTIPATION; Start at 11:00 Sodium Biphosphate/ Sodium Phosphate (Fleet Enema) 133 ml DAILY PRN SC CONSTIPATION; Start 11/17/16 at 11:00 Hydralazine HCl (Apresoline) 10 mg Q6H PRN IV ELEVATED BLOOD PRESSURE; Start at 11:00 Nitroglycerin (Nitroglycerin (Sl Tab) 0.4 Mg) 1 tab Q5M PRN SL ANGINA; Start at 11:00 Acetaminophen (Tylenol Tab) 650 mg Q6H PRN PO PAIN LEVEL 1-5; Start 11/17/16 at 11:00 Allopurinol (Zyloprim) 100 mg DAILY PO Last administered on 11/28/16 08:57; Admin Dose 100 MG; Start 11/18/16 at 09:00 Aspirin (Halfprin) 81 mg DAILY PO Last administered on 11/26/16 08:50; Admin Dose 81 MG; Start 11/18/16 at 09:00 Atorvastatin Calcium (Lipitor) 10 mg QHS PO Last administered on 11/28/16 20: 48; Admin Dose 10 MG; Start 11/17/16 at 21:00 Famotidine (Pepcid) 20 mg Q24H PO Last administered on 11/29/16 21:34; Admin Dose 20 MG; Start 11/17/16 at 21:00 Lactobacillus Acidoph/Bulgaricus (Floranex) 1 tab TID PO Last administered on 21:33; Admin Dose 1 TAB; Start 11/17/16 at 13:00 Lorazepam (Ativan) 0.5 mg Q6 PRN PO ANXIETY Last administered on 11/18/16 11:04 ; Admin Dose 0.5 MG; Start 11/17/16 at 11:00 Fish Oil (Fish Oil) 1,000 mg DAILY PO Last administered on 11/28/16 08:58; Admin Dose 1,000 MG; Start 11/18/16 at 09:00 Pyridoxine HCl (Vitamin B6) 100 mg DAILY PO Last administered on 11/28/16 08: 56; Admin Dose 100 MG; Start 11/18/16 at 09:00 Simethicone (Mylicon) 80 mg Q6H PRN PO INTESTINAL SPASMS/CRAMPING; Start at 11:00 Vitamin E (Vitamin E) 400 units DAILY PO Last administered on 11/28/16 08:59; Admin Dose 400 UNITS; Start 11/18/16 at 09:00 Zolpidem Tartrate (Ambien) 10 mg QHS PRN PO INSOMNIA; Start 11/17/16 at 11:00 Al Hydrox/Mg Hydrox/Simethicone (Mag-Al Plus) 10 ml Q6 PRN PO DISTENSION/GAS/ BLOATING; Start 11/17/16 at 11:00 Vancomycin HCl (Vanco Iv Per Pharmacy) PER PHARMACY DOSING NOTE XX ; Start at 11:30 Miscellaneous Information 1 ea NOTE XX ; Start 11/17/16 at 11:30 Glucose (Glutose) 15 gm Q15M PRN PO DECREASED GLUCOSE; Start 11/17/16 at 11:30 Glucose (Glutose) 22.5 gm Q15M PRN PO DECREASED GLUCOSE; Start 11/17/16 at 11:30 Dextrose (D50w Syringe) 25 ml Q15M PRN IV DECREASED GLUCOSE Last administered on 11/20/16 02:28; Admin Dose 25 ML; Start 11/17/16 at 11:30 Dextrose (D50w Syringe) 50 ml Q15M PRN IV DECREASED GLUCOSE; Start 11/17/16 at 11:30 Glucagon (Glucagen) 1 mg Q15M PRN IM DECREASED GLUCOSE Last administered on 11/19 21:43; Admin Dose 1 MG; Start 11/17/16 at 11:30 Glucose (Glutose) 15 gm Q15M PRN BUCCAL DECREASED GLUCOSE; Start 11/17/16 at 11: 30 Guaifenesin (Robitussin Liquid Cup) 200 mg Q4H PRN PO COUGH; Start 11/17/16 at 16:00 Phenol (Cepastat Lozenge) 1 lozenge Q1H PRN MT cough; Start 11/17/16 at 16:00 Bisacodyl (Dulcolax Supp) 10 mg Q24H PRN SC CONSTIPATION; Start 11/17/16 at 16: 30 Cholecalciferol (Vitamin D) 1,000 unit DAILY PO Last administered on 11/28/16 08:58; Admin Dose 1,000 UNIT; Start 11/18/16 at 09:00 Diphenhydramine HCl (Benadryl) 25 mg BID PRN PO ITCHING; Start 11/17/16 at 16:30 Multivitamins Therapeutic (Theragran) 1 tab DAILY PO Last administered on 08:58; Admin Dose 1 TAB; Start 11/18/16 at 09:00 Zinc Sulfate 220 mg 220 mg DAILY PO Last administered on 11/28/16 08:57; Admin Dose 220 MG; Start 11/18/16 at 09:00 Propofol (Diprivan) 100 ml @ 3.96 mls/hr Q12H IV Last administered on 00:19; Admin Dose 11.88 MLS/HR; Start 11/18/16 at 12:30 Ferrous Sulfate (Feosol Liquid Cup) 300 mg BID GTB Last administered on 21:32; Admin Dose 300 MG; Start 11/18/16 at 21:00 Acetaminophen (Tylenol Liquid) 650 mg Q6 PRN NGT PAIN AND OR ELEVATED TEMP Last administered on 11/19/16 18:41; Admin Dose 650 MG; Start 11/19/16 at 03:30 Nystatin/ Triamcinolone Acetonide (Mycolog Oint) 1 applic BID TOP Last administered on 11/29/16 21:34; Admin Dose 1 APPLIC; Start 11/20/16 at 21:00 Docusate Sodium 200 mg 200 mg BID GTB Last administered on 11/29/16 21:33; Admin Dose 200 MG; Start 11/21/16 at 21:00 Norepinephrine/ Dextrose (Levophed/D5W) 500 ml @ 0 mls/hr TITRATE IV Last administered on 11/29/16 19:59; Admin Dose 37.5 MLS/HR; Start 11/22/16 at 07:00 Apixaban (Eliquis) 5 mg BID PO Last administered on 11/29/16 21:36; Admin Dose 5 MG; Start 11/22/16 at 21:00 Morphine Sulfate (morphine) 4 mg Q4H PRN IV SEVERE PAIN LEVEL 7-10 Last administered on 11/29/16 01:52; Admin Dose 4 MG; Start 11/23/16 at 15:00 Lorazepam (Ativan) 0.5 mg Q2H PRN IV ANXIETY; Start 11/23/16 at 15:00 Insulin Glargine (Lantus) 25 unit DAILY@08 SC Last administered on 11/29/16 08 :31; Admin Dose 25 UNIT; Start 11/24/16 at 11:00 Insulin Aspart (Novolog Insulin Pen) NOVOLOG *MODERATE* ALGORI... Q4 SC Last administered on 11/29/16 17:55; Admin Dose 2 UNIT; Start 11/24/16 at 13:00 Metronidazole (Flagyl) 500 mg Q8 GTB Last administered on 11/29/16 21:34; Admin Dose 500 MG; Start 11/24/16 at 14:00 Nystatin (Nystatin Susp) 5 ml QID PO Last administered on 11/29/16 21:33; Admin Dose 5 ML; Start 11/24/16 at 13:00 Potassium Chloride 40 meq 40 meq DAILY NGT ; Start 11/25/16 at 09:00; Status Future Hold Vancomycin HCl 1.25 gm/Sodium Chloride 250 ml @ 83.333 mls/ hr Q96H IVPB ; Start 11/30/16 at 18:00 Fentanyl (Sublimaze) 100 ml @ 2.5 mls/hr TITRATE IV Last administered on 04:25; Admin Dose 5 MLS/HR; Start 11/27/16 at 10:00 Methylprednisolone Sodium Succinate (Solu-Medrol) 40 mg Q12 IV Last administered on 11/29/16 21:32; Admin Dose 40 MG; Start 11/27/16 at 21:00 Fluconazole 100 mg 100 mg DAILY PO Last administered on 11/29/16 08:31; Admin Dose 100 MG; Start 11/27/16 at 14:30 Colistimethate Sodium 75 mg/ Sodium Chloride 100 ml @ 200 mls/hr Q24H IVPB Last administered on 11/29/16 15:16; Admin Dose 200 MLS/HR; Start 11/28/16 at 14:00 Amiodarone HCl/ Dextrose (Cordarone Iv/ D5W) 500 ml @ 0 mls/hr Q0M IV Last administered on 11/29/16 06:55; Admin Dose 33.3 MLS/HR; Start 11/29/16 at 07:00 ; Stop 11/30/16 at 06:59 Miscellaneous Information (*Rx Drug Level Order Reminder*) VANCO TROUGH @ 1, 700 ON... ONCE ONCE XX ; Start 11/30/16 at 17:00; Stop 11/30/16 at 17:01 ALONSO MARTINEZ MD Nov 29, 2016 23:43
[2016-11-30] VITALS (15 sets, daily range): BP systolic 0–151; BP diastolic 0–127; PULSE 0–139; RESP 0–65
[2016-11-30] MEDS ORDERED: MAGNESIUM SULFATE 1 GM/100 ML D5W IVPB ONE
[2016-11-30] MEDS ORDERED: DEXTROSE 50% 50 ML SYRINGE ONE
[2016-11-30] MEDS ORDERED: CA CHLORIDE 10% 10 ML SYRINGE ONE
[2016-11-30] MEDS ORDERED: DOPamine-D5W 1.6 MG/ML 250 ML IV SCH
[2016-11-30] MEDS: ALBUTEROL HFA 8 GM INHALER INH SCH (00:29)
[2016-11-30] MEDS: PROPOFOL 100 ML IV SCH (00:30)
[2016-11-30] MEDS: INSULIN ASPART [NOVOLOG] 3 ML PEN SC SCH (01:00)
[2016-11-30] MEDS ORDERED: EPINEPHrine 0.1 MG/ML SYG ONE ×2 (02:06)
[2016-11-30] MEDS ORDERED: EPINEPHRINE 4 MG in D5W 250 ML IV SCH (02:15)
[2016-11-30] MEDS ORDERED: NA BICARBONATE 8.4% 50 ML SYG ONE ×2 (02:18)
--- NOTE | 2016-11-30 05:38 | EN ---
Date/Time of Note Date/Time of Note DATE: 11/30/16 TIME: 05:35 Event Note Medicine Medicine Event Note S: pt non responsive O: no VS seen or recorded PE: Gen - pt lying in bed, non responsive, intubated HEENT: pupils non reactive BlL CV: no heart sounds heard Res: no BS heard Abd: no BS heard M/S: no pulses palpable B/L Pt at 3:41 AM on 11/30/2016. FELIX SCOTT Nov 30, 2016 05:38
[2016-11-30] MEDS ORDERED: VANCOMYCIN 1.25 GM in SOD CHLORIDE 0.9% 250 ML IVPB SCH (18:00)
--- NOTE | 2016-12-04 18:03 | RADRPT ---
Vent Rate: 90 bpm RR Interval: [address] Interval: 0 msec QRS Duration: 108 msec QT Interval: 348 msec QTC Interval: 425 msec P-R-T [place]: 0 - -85 - 79 degrees Atrial fibrillation Left axis deviation Right bundle branch block Possible Lateral infarct , age undetermined Inferior infarct , age undetermined Abnormal ECG Electronically Signed By: Woody Garrido [id number]
== END 2016-11-30 04:00 | disposition expired | DRG 870 ==
LOC: E/R 06:04 → MS4 12:10 → ICU 17:27
PROVIDERS: ADMIT Internal Medicine; ATTEND Internal Medicine
PROC: 05HN33Z Insertion of Infusion Device into Left Internal Jugular Vein, Percutaneous Approach (ICD-10-PCS; principal; 2016-11-18)
PROC: 5A1955Z Respiratory Ventilation, Greater than 96 Consecutive Hours (ICD-10-PCS; 2016-11-18)
PROC: 0BH18EZ Insertion of Endotracheal Airway into Trachea, Via Natural or Artificial Opening Endoscopic (ICD-10-PCS; 2016-11-18)
PROC: 5A1D60Z (ICD-10-PCS; 2016-11-19)
PROC: 5A12012 Performance of Cardiac Output, Single, Manual (ICD-10-PCS; 2016-11-29)
PROC: 5A2204Z Restoration of Cardiac Rhythm, Single (ICD-10-PCS; 2016-11-29)
DX: A41.9 Sepsis, unspecified organism (principal); I49.01 Ventricular fibrillation; R65.21 Severe sepsis with septic shock; I50.33 Acute on chronic diastolic (congestive) heart failure; J18.9 Pneumonia, unspecified organism; D61.818 Other pancytopenia; J96.01 Acute respiratory failure with hypoxia; J96.02 Acute respiratory failure with hypercapnia; J44.9 Chronic obstructive pulmonary disease, unspecified; N18.6 End stage renal disease; B37.0 Candidal stomatitis; Z68.41 Body mass index [BMI] 40.0-44.9, adult; I13.2 Hypertensive heart and chronic kidney disease with heart failure and with stage 5 chronic kidney disease, or end stage renal disease; L03.116 Cellulitis of left lower limb; E11.22 Type 2 diabetes mellitus with diabetic chronic kidney disease; E11.621 Type 2 diabetes mellitus with foot ulcer; I27.2 Other secondary pulmonary hypertension; N18.9 Chronic kidney disease, unspecified; D63.1 Anemia in chronic kidney disease; E83.9 Disorder of mineral metabolism, unspecified; I73.9 Peripheral vascular disease, unspecified; M10.9 Gout, unspecified; E66.01 Morbid (severe) obesity due to excess calories; E78.5 Hyperlipidemia, unspecified; I87.8 Other specified disorders of veins; I48.0 Paroxysmal atrial fibrillation; I07.1 Rheumatic tricuspid insufficiency; F32.9 Major depressive disorder, single episode, unspecified; L97.529 Non-pressure chronic ulcer of other part of left foot with unspecified severity; R59.1 Generalized enlarged lymph nodes; I46.9 Cardiac arrest, cause unspecified; E11.51 Type 2 diabetes mellitus with diabetic peripheral angiopathy without gangrene; R19.7 Diarrhea, unspecified
CPT/HCPCS: 31500; 36415; 36600; 71010; 71250; 80048; 80053; 80061; 80069; 80076; 80202; 82803; 82962; 83036; 83605; 83690; 83735; 83880; 84100; 84145; 84439; 84443; 84484; 85025; 85610; 85730; 87040; 87070; 87081; 87400; 89220; 90935; 92950; 93005; 93970; 94002; 94003; 94640; 94644; 94660; 94664; 94770; 96365; 96366; 96367; 96375; C1751; J0171; J0278; J0282; J0692; J1265; J1610; J1644; J1815; J1956; J2060; J2185; J2270; J2920; J3010; J3370; J3475; J7050; J7060; J7070; P9047